=== PATIENT | male | born 1945 | race Caucasian/White ===

== ENCOUNTER 2016-11-24 06:32 | Inpatient (IN) | payer MEDICARE ==
[~2016-11-24] VITALS: Ht 170.2 cm; Wt 89.0 kg
[2016-11-24] VITALS (15 sets, daily range): BP systolic 112–170; BP diastolic 51–82
[2016-11-24] MEDS: IV NORMAL SALINE 1000ML BAG 1,000 ML IV SCH ×6 (06:50→11:39)
--- NOTE | 2016-11-24 07:09 | RAD ---
Portable chest, 11/24/2016: History: Check tubes post cardiac arrest An ET tube is in place with its tip located 4 cm above the stephanie. An NG tube extends into the proximal aspect of the stomach. The heart is mildly enlarged. The pulmonary vascularity is normal. No pulmonary infiltrates are seen. There is no evidence of pleural fluid or pneumothorax. IMPRESSION: 1. The ET tube and NG tube are in satisfactory positions. 2. Mild cardiomegaly
[2016-11-24 07:23] LABS: POTASSIUM ISTAT 4.3 mmol/L (3.5-5.0)
[2016-11-24 07:26] LABS: BASO # 0.1 x10^3/uL (0.0-0.2); BASO % 1 % (0-3); EOS % 3 % (0-3); HEMOGLOBIN 10.6 g/dL (13.0-17.5); LYMPH % 48 % (24-48); MEAN CORPUSCULAR HEMOGLOBIN 30 pg (25-35); MEAN CORPUSCULAR HGB CONC 31 g/dL (31-37); MEAN CORPUSCULAR VOLUME 96 fL (79-100); MONO % 6 % (0-9); NEUT % 43 % (31-73); PLATELET COUNT 72 x10^3/uL (140-400); RED BLOOD COUNT 3.56 x10^6/uL (4.30-5.70); WHITE BLOOD COUNT 10.5 x10^3/uL (4.0-11.0)
[2016-11-24] MEDS: EPINEPHRINE VIAL 4 MG in IV NORMAL SALINE 250ML 250 ML IV PRN (07:39)
[2016-11-24 07:40] LABS: CALCIUM 8.1 mg/dL (8.5-10.1)
[2016-11-24 07:41] LABS: CREATININE 1.6 mg/dL (0.7-1.3); GFR 42.8; POTASSIUM 3.6 mmol/L (3.5-5.1)
[2016-11-24] MEDS ORDERED: DEXTROSE 50% 25 GM / 50ML DISP.SYRIN. IV PRN (07:45)
[2016-11-24 07:47] LABS: ALBUMIN 2.4 g/dL (3.4-5.0); DIRECT BILIRUBIN 0.1 mg/dL (0.0-0.2); MAGNESIUM 2.1 mg/dL (1.8-2.4); TOTAL BILIRUBIN 0.2 mg/dL (0.2-1.0); TOTAL PROTEIN 4.9 g/dL (6.4-8.2)
[2016-11-24 07:54] LABS: BILIRUBIN,URINE NEGATIVE (NEG); GLUCOSE,URINE NEGATIVE (NEG); NITRITE,URINE NEGATIVE (NEG); PROTEIN,URINE 30 mg/dL (NEG-TRACE); UROBILINOGEN,URINE 0.2 mg/dL (0.2 mg/dL)
--- NOTE | 2016-11-24 07:54 | PHYS DOC ---
Past Medical History Past Medical History: Diabetes-Type II, High Cholesterol, Hypertension Adult General Chief Complaint Chief Complaint: CPR/FULL ARREST HPI HPI Patient is a 71 year old female who presents status post cardiac arrest. Per EMS, they got a call for shortness of breath after patient had gone for a morning run. Shortly after their arrival, patient had cardiac arrest. CPR was started. Patient has received 1 round of epi prior to arrival. Patient unresponsive and unable to contribute to history. Review of Systems Review of Systems Unable to obtain as patient is unresponsive Current Medications Current Medications Current Medications Medications (Trade) Dose Ordered Sig/Kika Start Time Stop Time Status Last Admin Dose Admin Epinephrine HCl/ Sodium Chloride (Adrenalin/Iv Sodium Chloride 0.9% 250ml) 254 ml @ 0 mls/hr CONT PRN 11/24/16 07:30 11/24/16 07:39 5 MLS/HR Sodium Chloride 1,000 ml @ 1,000 mls/hr Q1H 11/24/16 06:50 11/24/16 07:49 DC 11/24/16 06:50 1,000 MLS/HR Allergies Allergies Physical Exam Physical Exam Constitutional: Well developed, well nourished, unresponsive HENT: Normocephalic, atraumatic, bilateral external ears normal Eyes: Pupils initially 3mm ERRL; after period of time pupils became nonreactive with R pupil 3mm and L pupil 6mm Neck: Normal range of motion, no stridor Cardiovascular: CPR in progress Lungs & Thorax: No spontaneous respiration. Bilateral breath sounds clear to auscultation Abdomen: Bowel sounds normal, soft, non-distended, no TTP Skin: Warm, dry, no erythema, no rash Extremities: No obvious deformity, no edema Neurologic: GCS 3 Current Patient Data Vital Signs Vital Signs Date Time Temp Pulse Resp B/P Pulse Ox O2 Delivery O2 Flow Rate FiO2 11/24/16 07:36 104 16 119/65 100 Bag Valve Mask 15 Lab Values Laboratory Tests Test 11/24/16 06:50 11/24/16 07:15 11/24/16 07:17 O2 Saturation 98% (92-99) Arterial Blood pH 6.93 (7.35-7.45) *L Arterial Blood pCO2 at Patient Temp 57mmHg (35-46) H Arterial Blood pO2 at Patient Temp 221mmHg (65-108) H Arterial Blood HCO3 12mmol/L (21-28) L Arterial Blood Base Excess -21mmol/L (-3-3) L FiO2 100 White Blood Count 10.5x10^3/uL (4.0-11.0) Red Blood Count 3.56x10^6/uL (4.30-5.70) L Hemoglobin 10.6g/dL (13.0-17.5) L Hematocrit 34.0% (39.0-53.0) L Mean Corpuscular Volume 96fL (79-100) Mean Corpuscular Hemoglobin 30pg (25-35) Mean Corpuscular Hemoglobin Concent 31g/dL (31-37) Red Cell Distribution Width 14.0% (11.5-14.5) Platelet Count 72x10^3/uL (140-400) L Neutrophils (%) (Auto) 43% (31-73) Lymphocytes (%) (Auto) 48% (24-48) Monocytes (%) (Auto) 6% (0-9) Eosinophils (%) (Auto) 3% (0-3) Basophils (%) (Auto) 1% (0-3) Neutrophils # (Auto) 4.5x10^3uL (1.8-7.7) Lymphocytes # (Auto) 5.0x10^3/uL (1.0-4.8) H Monocytes # (Auto) 0.6x10^3/uL (0.0-1.1) Eosinophils # (Auto) 0.3x10^3/uL (0.0-0.7) Basophils # (Auto) 0.1x10^3/uL (0.0-0.2) Sodium Level 156mmol/L (136-145) H Potassium Level 3.6mmol/L (3.5-5.1) Chloride Level 113mmol/L (98-107) H Carbon Dioxide Level 21mmol/L (21-32) Anion Gap 22 (6-14) H 30mmol/L (6-14) H Blood Urea Nitrogen 22mg/dL (8-26) Creatinine 1.6mg/dL (0.7-1.3) H Estimated GFR (Cockcroft-Gault) 42.8 Glucose Level 364mg/dL (70-99) H 400mg/dL (70-99) H Lactic Acid Level 20.3mmol/L (0.4-2.0) *H Calcium Level 8.1mg/dL (8.5-10.1) L Magnesium Level 2.1mg/dL (1.8-2.4) Total Bilirubin 0.2mg/dL (0.2-1.0) Direct Bilirubin 0.1mg/dL (0.0-0.2) Aspartate Amino Transferase (AST) 261U/L (15-37) H Alanine Aminotransferase (ALT) 378U/L (16-63) H Alkaline Phosphatase 61U/L (46-116) POC Troponin I 0.12ng/ml (<0.08) Troponin I Quantitative 0.132ng/mL (0.000-0.055) MD-Asn-U-Type Natriuretic Peptide 79pg/mL (0-124) Total Protein 4.9g/dL (6.4-8.2) L Albumin 2.4g/dL (3.4-5.0) L Lipase 158U/L (73-393) POC Hemoglobin 10.2g/dL (14-18) L POC Hematocrit 30% (37-52) L POC Sodium 147mmol/L (135-145) H POC Potassium 4.3mmol/L (3.5-5.0) POC Chloride 110mmol/L (98-110) POC Total CO2 12mmol/L (23-32) L POC Blood Urea Nitrogen 22mg/dL (8-26) POC Creatinine 1.4mg/dL (0.5-1.4) POC Ionized Calcium ([place]) 1.02mmol/L (1.13-1.32) L Laboratory Tests 11/24/16 07:15 Laboratory Tests 11/24/16 07:15 11/24/16 07:17 EKG EKG EKG (my read): Tachycardic, rate 146, partial RBBB, few PVCs noted, nonspecific ST changes throughout Radiology/Procedures Radiology/Procedures CXR: IMPRESSION: 1. The ET tube and NG tube are in satisfactory positions. 2. Mild cardiomegaly CT head: IMPRESSION: Suboptimal exam demonstrating no acute intracranial abnormality. Course & Med Decision Making Course & Med Decision Making Pertinent Labs and Imaging studies reviewed. (See chart for details) Patient is critically ill 71-year-old male who presents in cardiac arrest. Suspect cardiac etiology given circumstances. CPR continued on arrival to ED. ACLS algorithm followed, see code sheet for further details about meds given. Patient intubated emergently without difficulty. During time in emergency department, patient coded a couple more times, but we were able to achieve ROSC each time. At one point he had run of V. tach, for which he was defibrillated and given 300 mg amiodarone. I placed a femoral central line and started epinephrine drip. I discussed patient's grave condition with family. Broad spectrum antibiotics ordered, in part due to the nonsterile line that was placed emergently. Shortly after patient's arrival to ED, I discussed case with Dr. Lu; we initially decided to hold off on hypothermic protocol, but then as he became more stable (cardiovascularly) but developed unilateral dilated pupil and remained GCS 3 decision was made to proceed with cooling. Order entered for hypothermic protocol. CT head obtained en route to ICU. Discussed with Dr. Salcedo, will admit under his care to the ICU. Patient remains in critical condition. Critical care time: I spent 60 minutes critical care time with this patient. This does not include any time spent on procedures. Dragon Disclaimer Dragon Disclaimer This electronic medical record was generated, in whole or in part, using a voice recognition dictation system. PROCEDURE Procedure Orotracheal Intubation: Indication: Respiratory failure Consent: Unable to give consent due to emergent nature. Medications Used: see nursing note Procedure: The patient was placed in the appropriate position. Intubation was performed using kaleidoscope. 7.5 cuffed Endotracheal tube placed without difficulty. Secured at 25 at the lips. Initial confirmation of placement included bilateral breath sounds, tube fogging, adequate chest rise, adequate pulse oximetry reading. A chest x-ray to verify correct placement of the tube showed appropriate tube position. The patient tolerated the procedure well. Complications: none. Central Line Placement: Indication: Vascular access Consent: Unable to give consent due to emergent nature Procedure: The patient was positioned appropriately and the skin over the right femoral vein was prepped. Local anesthesia was not used. Ultrasound guidance utilized. A large bore needle was used to identify the vein. A guide wire was then inserted into the vein through the needle. I was unable to thread the catheter as the guide wire became kinked. This technique was repeated for the left femoral vein. A triple lumen catheter was then inserted into the vessel over the guide wire using the Seldinger technique. All ports showed good, free flowing blood return and were flushed with saline solution. The catheter was then securely fastened to the skin with sutures and covered with a sterile dressing. Strict sterile procedure was not followed due to the emergent nature of the case. Complications: Unable to place catheter in right femoral vein; central venous catheter placed in left femoral vein without complication Departure Departure Impression: Primary Impression: Cardiac arrest Disposition: ADMITTED INPATIENT Admitting Physician: Shameka Salcedo Condition: CRITICAL Referrals: BRIGHT HANCOCK (PCP) MAGGIE JORGENSEN MD Nov 24, 2016 07:54
--- NOTE | 2016-11-24 07:54 | EKG ---
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
[2016-11-24] MEDS ORDERED: IV NORMAL SALINE 1000ML BAG 1,000 ML IV ONE ×2 (08:00→11:00)
[2016-11-24] MEDS: INSULIN ASPART 300 UNITS/3 ML INSULN.PEN SQ SCH ×2 (08:00→12:00)
[2016-11-24 08:02] LABS: BACTERIA,URINE FEW /HPF (0-FEW); SQUAMOUS EPITHELIAL CELL,UR OCC /LPF; WBC,URINE OCC /HPF (0-4)
[2016-11-24 08:12] LABS: HCO3 ABG 12 mmol/L (21-28); PCO2 ABG 57 mmHg (35-46); PO2 ABG 221 mmHg (65-108); SAT O2 ABG 98 % (92-99)
[2016-11-24] MEDS ORDERED: PIP/TAZO PER PHARMACY MC PRN (08:15)
[2016-11-24] MEDS ORDERED: VANCOMYCIN PER PHARMACY MC PRN (08:15)
[2016-11-24] MEDS ORDERED: PIPERACILLIN/TAZOBACTAM 4.5 GM in IV NORMAL SALINE 100ML 100 ML IV SCH (08:30)
[2016-11-24] MEDS ORDERED: VANCOMYCIN 2 GM in IV NORMAL SALINE 500ML BAG 500 ML IV ONE (08:30)
[2016-11-24] MEDS: SODIUM BICARBONATE VIAL 50 MEQ in IV 1/2 NORMAL SALINE 1,000 ML IV SCH ×2 (08:32→16:40)
[2016-11-24] MEDS ORDERED: FENTANYL PF 100 MCG/2 ML VIAL. IV PRN (08:45)
[2016-11-24] MEDS ORDERED: MINERAL OIL/PETROLATUM,WHITE OPHTH OINT 3.5GM TUBE. OU PRN (08:45)
[2016-11-24] MEDS ORDERED: 0.9 % SODIUM CHLORIDE 10 ML DISP.SYRIN. IV PRN (08:45)
[2016-11-24] MEDS ORDERED: LORAZEPAM 2 MG/ML VIAL IV PRN (08:45)
--- NOTE | 2016-11-24 08:55 | ACF ---
Admit Criteria Forms Admit Criteria Forms Admit Criteria Forms INTENSIVE CARE UNIT ADMISSION Intensive Care Admission Guidelines ( Place 'X' for any and all applicable criteria): Admission to ICU may be indicated when need is demonstrated by ANY ONE of the following (1)(2)(3)(4)(5)(6)(7)(8)(9) : [ ]I. Vital sign abnormalities, including ANY ONE of the following: [ ]a) Systolic arterial pressure less than 90 mm Hg, or 20 mm Hg below the patient's usual pressure [ ]b) Diastolic arterial pressure greater than 120 mm Hg [ ]c) Mean arterial pressure less than 70 mm Hg [A] [ ]d) Pulse less than 40 or greater than 140 beats per minute (in adult) [ ]e) Respiratory rate greater than 35 or less than 8 breaths per minute [ ]II. Laboratory findings (new), including ANY ONE of the following (10): [ ]a) Saturation of arterial oxygen less than 88% or partial pressure of oxygen less than 60 mm Hg (8.0 kPa) despite oxygen supplementation [ ]b) Rising partial pressure of carbon dioxide with respiratory acidosis [ ]c) pH less than 7.2 or greater than 7.65 [ ]d) Serum glucose greater than 800 mg/dL (44.4 mmol/L) [ ]e) Serum sodium less than 110 mEq/L (mmol/L) or greater than 160 mEq/L (mmol/L) [ ]f) Serum potassium less than 2 mEq/L (mmol/L) or greater than 7 mEq /L (mmol/L) [ ]g) Serum calcium greater than 15 mg/dL (3.75 mmol/L) [ ]h) Serum phosphorus less than 1 mg/dL (0.32 mmol/L) [ ]i) Toxic drug level or poisoning causing or likely to cause neurologic or Hemodynamic instability [ ]j) Less severe laboratory abnormalities contributing to ANY ONE of the following: [ ]i) Seizure [ ]ii) Altered mental status [ ]iii) Muscle weakness [ ]iv) Arrhythmias [ ]v) Hemodynamic instability [ ]vi) Other significant clinical manifestations [ ]III. Electrocardiogram (or cardiac monitoring) findings, including ANY ONE of the following: [ ]a) Inherently unstable or life-threatening arrhythmia (eg, sustained ventricular tachycardia, ventricular fibrillation, asystole) [ ]b) Arrhythmia causing severe hypotension (eg, bradycardia, tachycardia) [ ]c) Complete heart block causing severe hypotension [ ]d) Other findings indicative of a need for intensive care (eg , [place]) [ ]IV.Physical findings, including ANY ONE of the following: [ ]a) Threatened airway [ ]b) Sudden altered mental status [ ]c) Repeated or prolonged seizures [ ]d) Coma [ ]e) New-onset anuria (urine output <0.1 mL/kg/hr over 4 h) [ ]f) Cyanosis (new) [ ]g) Cardiac tamponade [ ]h) Status post respiratory or cardiac arrest [ ]i) Severe carmona (eg, partial thickness carmona over more than 10% of body surface, third-degree carmona) [ ]j) Findings consistent with abdominal emergency (eg, peritoneal signs) [ ]V.Imaging findings, such as dissecting aneurysm or ruptured viscus [ ].Specific intervention or monitoring needed, as indicated by ANY ONE of the following: [ ]a) New need for assisted ventilation, invasive or noninvasive(11) [ ]b) New need for intubation (eg, to protect airway) [ ]c) New tracheostomy (less than 48 hours old) [ ]d) Hourly vital signs or neurologic checks [ ]e) Pulmonary artery line monitoring needed [ ]f) Continuous arterial line monitoring needed [ ]g) Continuous IV vasoactive drugs [ ]h) Continuous IV antiarrhythmics [ ]i) Large volume IV fluid resuscitation (eg, greater than 6 L per day ) [ ]j) Large or rapid transfusion needs (eg, more than 6 units within 24 hours) [ ]k) High-risk IV treatment, such as bolus IV medicatns or mannitol infusion [ ]l) Acute cardiac pacing [ ]m) Intra-aortic balloon pump [ ]n) Ventricular assist device [ ]o) Cardioversion [ ]p) Pericardiocentesis [ ]q) Hemodialysis in unstable patient [ ]r) Continuous renal replacement therapy (eg, continuous veno-venous hemofiltration) [ ]s) Peritoneal dialysis initiation [ ]t) Emergency bronchoscopic therapy (eg, for hemoptysis) [ ]u) Emergency endoscopic therapy for bleeding [ ]v) Balloon tamponade for variceal bleeding [ ]w) Intracranial pressure monitoring or tissue oxygen monitoring [ ]x) Ventriculostomy monitoring [ ]y) Treatment of ongoing seizures [ ]z) Induced hypothermia or coma [ ]aa) Ongoing frequent testing and treatment for acute conditions, including ANY ONE of the following: [ ]i) Correction of severe metabolic acidosis/ alkalosis [ ]ii). Severe fluid overload [ ]iii) Cerebral edema [ ]iv) Monitoring or suctioning for respiratory insufficiency or acidosis [ ]v) Monitoring for active bleeding [ ]bb) Rapid desensitization for high-risk hypersensitivity reaction to required medication (eg, penicillin)(12) [ ]cc) Other need for treatment or monitoring not available outside the ICU [X]VII.Cardiology diagnoses or procedures, including ANY ONE of the following (13)(14)(15)(16)(17): [ ]a) Chest pain with ANY ONE of the following: [ ]i) Hemodynamic instability [ ]ii) Suspicion of diagnoses needing ICU care (eg, aortic dissection) [ ]iii) New unstable or symptomatic arrhythmia or ECG finding (eg, ventricular tachycardia, ventricular fibrillation, advanced heart block) [ ]iv) Syncope or near-syncope [ ]v) SBP less than 100 mm Hg [ ]vi) Pulmonary edema thought to be due to ischemia [ ]vii) New or worsening mitral regurgitation murmur, S3 , or rales [ ]b) Acute [place] with complications as indicated by ANY ONE of the following: [ ]i) Persistent chest pain [ ]ii) Hemodynamic instability [ ]iii) New unstable or symptomatic arrhythmia or ECG finding (eg, ventricular tachycardia, ventricular fibrillation, advanced heart block) [ ]iv) Syncope or near-syncope [ ]v) Pulmonary edema thought to be due to ischemia [ ]vi) New or worsening mitral regurgitation murmur, S3 , or rales [ ]vii) New-onset bundle branch block [ ]viii) Hemorrhagic complication (eg, intracranial or access site bleed following thrombolysis) [ ]c) Cardiac arrhythmia or conduction defect with Hemodynamic instability [ ]d) Complication of cardiac ablation, including ANY ONE of the following(18): [ ]i) Pericardial tamponade [ ]ii) Hemodynamic instability [ ]iii) Thromboembolic stroke [ ]iv) Aortic valve injury [ ]v) Vascular injuries [ ]vi) Esophageal perforation [ ]vii) Severe arrhythmia [ ]viii) Air embolism [ ]ix) Other severe complication [ ]e) Cardiogenic shock [ ]f) Hypertensive emergency, with need for ANY ONE of the following(19): [ ]i) IV antihypertensive therapy [ ]ii) Invasive hemodynamic monitoring (eg, arterial line) [ ]g) Pericardial tamponade [ ]h) Severe heart failure, with ANY ONE of the following(15): [ ]i) Respiratory failure [ ]ii) Cardiogenic shock [ ]iii) Severe arrhythmias [ ]iv) Evidence of cardiac ischemia [ ]i Myocarditis, with ANY ONE of the following [ ]i) Hemodynamic instability [ ]ii) Respiratory failure [ ]iii) Severe arrhythmias [ ]iv) Need for cardiac assist device (eg, left ventricular assist device or extracorporeal membrane oxygenator) [X]j) Status post cardiac arrest(20) [ ]VIII. Cardiovascular Surgery diagnoses or procedures, including ANY ONE of the following.(21)(22): [ ]a) Acute aortic dissection [ ]b) Aortic surgery for ANY ONE of the following: [ ]i) Thoracic aneurysm [ ]ii) Abdominal aneurysm with ANY ONE of the following(23): [ ]1) Emergency repair [ ]2) Severe cardiopulmonary disease [ ]3) Dialysis-dependent renal failure [ ]4) Need for IV blood pressure control [ ]5) Need for ongoing ventilatory support [ ]6) Perioperative complications, including ANY ONE of the following: [ ]A. Sustained Hemodynamic instability [ ]B. Cardiac ischemia or arrhythmia [ ]C. Hypothermia (less than 35 degrees C (95 degrees F)) [ ]D. Blood transfusion greater than 3 L [ ]iii) Aortic coarctation operative excision or repair [ ]iv) Aortofemoral or aortoiliac bypass with ANY ONE of the following: [ ]1) Continued intubation [ ]2) Hemodynamic instability [ ]3) Need for IV blood pressure control [ ]4) Severe cardiopulmonary disease [ ]c) Cardiac surgery [ ]d) Carotid endarterectomy or stent placement with ANY ONE of the following: [ ]i) Blood pressure <100/60 mm Hg or >160/90 mm Hg despite 4 h of postanesthetic management [ ]ii) New or progressive neurologic defect [ ]iii) Chest pain [ ]iv) Continued intubation [ ]v) Heart failure [ ]vi) Airway compromise by hematoma or vocal cord paralysis [ ]vi) Need for IV blood pressure control [ ]e) Heart transplant [ ]f) Infrainguinal peripheral vascular surgery with ANY ONE of the following: [ ]i) Hemodynamic instability [ ]ii) Acute complications such as persistent chest pain or respiratory distress [ ]iii) Requirement for IV antiarrhythmic or vasoactive agent [ ]iv) Requirement for pulmonary artery catheter [ ]v) Severe hypertension despite 6 hours of recovery room management [ ]g) Complications of any surgery requiring ICU intervention as indicated by ANY ONE of the following(24): [ ]i) Hemodynamic instability [ ]ii) Myocardial infarction with complications (eg, severe arrhythmia, hypotension) [ ]iii) Excessive bleeding or severe coagulopathy [ ]iv) Respiratory failure [ ]v) Renal failure [ ]vi) Airway instability or obstruction [ ]vii) Neurologic deterioration [ ]viii) Infection with likelihood of sepsis syndrome or significant fluid shifts [ ]IX.Endocrinology diagnoses or procedures, including ANY ONE of the following(25)(26): [ ]a) Adrenal crisis with Hemodynamic instability(27) [ ]b) Pheochromocytoma with ANY ONE of the following(28): [ ]i) Hypertensive crisis [ ]ii) Postoperative Hemodynamic instability [ ]iii) Need for IV vasoactive therapy [ ]iv) Need for invasive arterial or central venous pressure monitoring [ ]v) Organ ischemia [ ]c) Diabetic hyperosmolar state with obtundation or coma [ ]d) Diabetic ketoacidosis with ANY ONE of the following: [ ]i) Serum pH less than 7.10 or bicarbonate level less than 10 mEq/L (mmol/L) [ ]ii) Rapidly changing electrolytes [ ]iii) Hypotension [ ]iv) Requirement for large-volume fluid resuscitation [ ]v) Respiratory insufficiency [ ]vi) Life-threatening cardiac dysrhythmias [ ]vii) Obtundation [ ]viii) Severe precipitating condition such as sepsis, stroke, or acute [place] [ ]e) Severe hypoglycemia requiring continuous glucose infusion with frequent adjustment or glucagon infusion [ ]f) Hyperthyroidism associated with thyroid storm (also known as thyrotoxic crisis)(29) [ ]g) Myxedema with life-threatening neurologic, cardiovascular, electrolyte, or renal dysfunction(29) [ ]h) Diabetes insipidus that cannot be controlled with routine medication (30) [ ]X. Gastroenterology diagnoses or procedures, including ANY ONE of the following: [ ]a) Esophageal perforation(31) [ ]b) Severe caustic esophageal injury(31) [ ]c) Liver disease complications with ANY ONE of the following(32): [ ]i) Severe hepatic encephalopathy (eg, stage 3 (somnolent) or higher) [ ]ii) Type 1 hepatorenal syndrome [ ]iii) Other cirrhosis-associated causes of acute renal failure ( eg, severe hypovolemia, acute tubular necrosis, abdominal compartment syndrome) [ ]iv) Hemodynamic instability [ ]v) Respiratory insufficiency due to severe ascites [ ]vi) Sepsis due to spontaneous bacterial peritonitis [ ]d) Fulminant hepatic failure when aggressive intervention or transplant is anticipated (32) [ ]e) Gastrointestinal hemorrhage (upper or lower) with ANY ONE of the following(33)(34): [ ]i) Active ongoing bleeding [ ]ii) Transfusion requirement greater than 2 units of packed red cells [ ]iii) Bleeding ulcer or nonbleeding visible vessel seen on endoscopy [ ]iv) Bleeding ulcer, visible blood vessel, bleeding (or recently bleeding) esophageal varices seen on endoscopy [ ]v) Hypotension [ ]vi) Syncope [ ]vii) Coagulopathy [ ]viii) Hepatic cirrhosis [ ]ix) Abnormal mental status [ ]x) Unstable comorbid condition or end organ dysfunction [ ]xi) Ischemia due to poor perfusion [ ]xii) Need for hemodynamic monitoring (eg, for patients with heart failure or valvular disease) [ ]f) Severe pancreatitis indicated by ANY ONE of the following (35)(36): [ ]i) Requirement for aggressive fluid resuscitation [ ]ii) Life-threatening electrolyte abnormality [ ]iii) SBP less than 90 mm Hg [ ]iv) Persistent tachycardia greater than 120 beats per minute [ ]v) Patients at high risk of rapid deterioration, including ANY ONE of the following: [ ]1) Calculated Deal II score greater than 8 [ ]2) Age older than 55 years [ ]3) BMI greater than 30 [ ]4) Greater than 30% pancreatic necrosis on CT scan [ ]5) Admission hematocrit greater than 47% (0.47) [ ]vi) Organ failure as indicated by ANY ONE of the following: [ ]1) Serum creatinine greater than 1.9 mg/dL (168 micromoles/L) [ ]2) Requirement for mechanical ventilation [ ]3) Urine output less than 50 mL/hour [ ]4) Arterial partial pressure of oxygen less than 60 mm Hg (8.0 kPa) despite supplemental oxygen [ ]5) PiO2/FiO2 ratio less than 300 [ ]vii) Expanding pseudocyst [ ]viii) Infected pancreas [ ]ix) Pleural effusion [ ]x) Encephalopathy [ ]xi) Severe comorbidities [ ]XI. General Surgery diagnoses or procedures, including ANY ONE of the following (9)(24)(37): [ ]a) Acute abdominal catastrophe (eg, ischemic bowel, perforated viscus, abdominal compartment syndrome) [ ]b) Complications of any surgery requiring ICU intervention as indicated by ANY ONE of the following: [ ]i) Hemodynamic instability [ ]ii) [place] with complications (eg, severe arrhythmia, hypotension) [ ]iii) Excessive bleeding or severe coagulopathy [ ]iv) Respiratory failure [ ]v) Renal failure [ ]vi) Airway instability or obstruction [ ]vii) Neurologic deterioration [ ]viii) Infection with likelihood of sepsis syndrome or significant fluid shifts [ ]c) Multiple trauma with complicating features as indicated by ANY ONE of the following(38): [ ]i) Impending acute respiratory failure due to lung contusion, unstable chest wall, aspiration, or hemorrhage [ ]ii) Facial or neck injury threatening airway patency [ ]iii) Cardiac contusion [ ]iv) Pericardial effusion [ ]v) Bronchial tear [ ]vi) Hemodynamic instability [ ]vii) Rhabdomyolisis requiring large volume IV fluid resuscitation [ ]viii)Other significant complicating feature [ ]d) Organ transplant(39)(40) [ ]e) Esophagectomy(31) [ ]f) Whipple procedure [ ]g) Preoperative or postoperative patients requiring ICU intervention, such as hemodynamic optimization, pulmonary artery monitoring, mechanical ventilation, or extensive nursing care [ ]h) Obesity surgery patients with ANY ONE of the following(41): [ ]i) ICU management needs for comorbid conditions, such as sleep apnea or airway management needs [ ]ii) Failed postoperative extubation [ ]iii) Intraoperative complications [ ]XII. Nephrology diagnoses or procedures, including acute, or acute on chronic renal insufficiency with ANY ONE of the following(44)(45): [ ]a) Life-threatening electrolyte or acid-base disorder [ ]b) Acute pulmonary edema [ ]c) Hypotension or significant volume depletion [ ]d) Hypertensive emergency [ ]e) Underlying critical illness contributing to renal failure (eg, septic shock, hepatorenal syndrome) [ ]f) Need for continuous renal replacement therapy [ ]XIII. Neurology diagnoses or procedures, including ANY ONE of the following (46)(47) [B] : [ ]a) Intracranial hypertension requiring ANY ONE of the following(49 ): [ ]i) Induced barbiturate coma [ ]ii) Pharmacologic paralysis or deep sedation and mechanical ventilation [ ]iii) Intracranial pressure or cerebral perfusion pressure monitoring [ ]iv) IV mannitol or hypertonic saline [ ]v) Frequent serum osmolality measurements [ ]b) Seizures with ANY ONE of the following(50): [ ]i) Status epilepticus [ ]ii) Airway compromise requiring or likely to require mechanical ventilation [ ]iii) Severe electrolyte abnormalities causing seizures [ ]c) Progressive acute neurologic dysfunction requiring or likely to require ANY ONE of the following: [ ]i) Mechanical ventilation [ ]ii) Intracranial pressure or cerebral perfusion pressure monitoring [ ]d) Meningitis with obtundation or respiratory insufficiency [C])(51 ) [ ]e) Stroke with ANY ONE of the following(52)(53): [ ]i) Need for observation after thrombolysis [ ]ii) Altered mental status [ ]iii) Need for mechanical ventilation [ ]iv) Elevated intracranial pressure [ ]v) Hypertensive emergency [ ]vi) High risk of progressive infarction or deterioration based on CT scan or MRI [ ]vii) Hemorrhage [ ]f) Acute coma [ ]g) Acute spontaneous intracranial hemorrhage(53)(54) [ ]h) Drug ingestion with ANY ONE of the following(56)(57): [ ]i) Hemodynamic instability [ ]ii) Respiratory depression (partial pressure of carbon dioxide >45 mm Hg (6.0 kPa), new) [ ]iii) Patient requires or is likely to require mechanical ventilation. [ ]iv) Arrhythmias [ ]v) Seizures [ ]vi) Altered mental status ([place] coma scale score less than 12, new) [ ]vii) Significant risk for acute deterioration (eg, toxic level of hypotension or arrhythmia-producing drug) [ ]viii) Drug-induced hypothermia or hyperthermia [ ]ix) Increasing metabolic acidosis [ ]x) Severe hypoglycemia requiring glucose infusion with frequent adjustment or glucagon administration [ ]xi) Ongoing antidote administration (eg, continuous naloxone infusion, organophosphate toxicity treatment) [ ]xii) Emergency intervention need (eg, dialysis, hemoperfusion, restraints) [ ]i) Brain with preparation for organ donation [ ]j) Traumatic brain injury with ANY ONE of the following(55): [ ]i) Altered mental status (eg, new onset [place] coma scale score less than 10) [ ]ii) Cerebral edema [ ]iii) Cerebral hemorrhage [ ]iv) Increased intracranial pressure [ ]XIV. Neurosurgery diagnoses or procedures, including ANY ONE of the following(49)(58)(59): [ ]a) Emergency craniotomy for tumor, hematoma, or trauma [ ]b) Elective craniotomy for posterior fossa tumor [ ]c) Elective craniotomy (supratentorial) for tumor with ANY ONE of the following: [ ]i) Postoperative neurologic deficit or impaired consciousness 6 hours after completion of procedure [ ]ii) SBP less than 110 mm Hg or greater than 180 mm Hg despite therapy [ ]iii) Extensive operative blood loss [ ]iv) High anesthesia risk (eg, [place] [employer] anesthesiologists score greater than 3 [ ]d) Craniotomy for aneurysm with ANY ONE of the following: [ ]i) Postoperative neurologic deficit or impaired consciousness 6 hours after completion of procedure [ ]ii) Preoperative Neal-Dean grade 3 or higher [ ]iii) SBP less than 110 mm Hg or greater than 180 mm Hg despite therapy [ ]iv) Intracranial pressure monitoring [ ]e) Acute spinal cord injury [ ]f) Subarachnoid hemorrhage [ ]g) Traumatic brain injury with ANY ONE of the following: [ ]i) Acute mental status change ([place] coma scale score less than 10) [ ]ii) CT scan showing cerebral edema or hemorrhage [ ]iii) Intracranial pressure monitoring [ ]h) Complications of any surgery requiring ICU intervention as indicated by ANY ONE of the following(60): [ ]i) Hemodynamic instability [ ]ii) [place] with complications (eg, severe arrhythmia, hypotension) [ ]iii) Excessive bleeding or severe coagulopathy [ ]iv) Respiratory failure [ ] v) Renal failure [ ]vi) Airway instability or obstruction [ ]vii) Neurologic deterioration [ ]viii) Infection with likelihood of sepsis syndrome or significant fluid shifts [ ]i) Preoperative or postoperative patients requiring ICU intervention, such as hemodynamic optimization, pulmonary artery monitoring, mechanical ventilation, or extensive nursing care [ ]XV.Obstetrics and Gynecology diagnoses or procedures, including ANY ONE of the ffg. (61)(62)(63): [ ]a) Severe peripartum condition as indicated by ANY ONE of the following: [ ]i) Eclampsia [ ]ii) Hypertensive emergency [ ]iii) HELLP syndrome (hemolysis, elevated liver enzymes, and low platelet count) [ ]iv) Pulmonary edema [ ]v) Respiratory failure [ ]vi) Pulmonary embolism [ ]vii) Anaphylactoid syndrome of (amniotic fluid embolus) [ ]viii) Ovarian hyperstimulation syndrome [D] [ ]ix) Acute fatty liver of (hepatic failure) [ ]x) Complications such as placental abruption or severe hemorrhage [ ]xi) Sepsis (eg, puerperal sepsis, chorioamnionitis, septic ) [ ]xii) cardiomyopathy with severe congestive heart failure (eg, respiratory failure, cardiogenic shock) [ ]b) Ruptured ectopic [ ]c) Complications of any surgery requiring ICU intervention as indicated by ANY ONE of the following: [ ]i) Hemodynamic instability [ ]ii) [place] with complications (eg, severe arrhythmia, hypotension) [ ]iii) Excessive bleeding or severe coagulopathy [ ]iv) Respiratory failure [ ]v) Renal failure [ ]vi) Airway instability or obstruction [ ]vii) Neurologic deterioration [ ]viii) Infection with likelihood of sepsis syndrome or significant fluid shifts [ ]d) Preoperative or postoperative patients requiring ICU intervention , such as hemodynamic optimization, pulmonary artery monitoring, mechanical ventilation, or extensive nursing care [ ]XVI.Ophthalmology diagnoses or procedures, including ANY ONE of the following (64): [ ]a) Complications of any surgery requiring ICU intervention, such as ANY ONE of the following: [ ]i) Hemodynamic instability [ ]ii) [place] with complications (eg, severe arrhythmia, hypotension) [ ]iii) Excessive bleeding or severe coagulopathy [ ]iv) Respiratory failure [ ]v) Renal failure [ ]vi) Airway instability or obstruction [ ]vii) Neurologic deterioration [ ]viii) Infection with likelihood of sepsis syndrome or significant fluid shifts [ ]b) Preoperative or postoperative patients requiring ICU intervention , such as hemodynamic optimization, pulmonary artery monitoring, mechanical ventilation, or extensive nursing care [ ]XVII.Orthopedics diagnoses or procedures, including ANY ONE of the following [phone]): [ ]a) Complications of any surgery requiring ICU intervention as indicated by ANY ONE of the following: [ ]i) Hemodynamic instability [ ]ii) [place] with complications (eg, severe arrhythmia, hypotension) [ ]iii) Excessive bleeding or severe coagulopathy [ ]iv) Respiratory failure [ ]v) Renal failure [ ]vi) Airway instability or obstruction [ ] vii) Neurologic deterioration [ ]viii) Infection with likelihood of sepsis syndrome or significant fluid shifts [ ]b) Multiple trauma with complicating features as indicated by ANY ONE of the following(38): [ ]i) Impending acute respiratory failure due to lung contusion, unstable chest wall, pneumothorax, aspiration, or hemorrhage [ ]ii) Facial or neck injury threatening airway patency [ ]iii) Cardiac contusion [ ]iv) Rhabdomyolysis requiring large volume IV fluid resuscitation [ ]v) Pericardial effusion [ ]vi) Bronchial tear [ ]vii) Hemodynamic instability [ ]viii) Other significant complicating feature [ ]c) Threatened compartment syndrome [ ]d) Severe carmona with ANY ONE of the following(68)(69)(70): [ ]i) Hypotension or requirement for aggressive fluid resuscitation [ ]ii) Respiratory insufficiency with requirement for high- flow oxygen or mechanical ventilation [ ]iii) Carbon monoxide poisoning [ ]iv) Life-threatening cardiac, renal, pulmonary, or neurologic dysfunction [ ]v) High-voltage (eg, 1000 volts or more) electrical burn [ ]vi) Requirement for frequent or intensive debridement and dressing changes; examples include: [ ]1) Partial thickness carmona greater than 10% of body surface [ ]2) Carmona on face, hands, feet, genitalia, perineum , or major joints [ ]3) Third-degree carmona [ ]4) Any burn greater than 15% of body surface area [ ]vii) Inhalation lung injury [ ]viii) Concomitant trauma or other medical condition requiring ICU care [ ]e) Preoperative or postoperative patients requiring ICU intervention , such as hemodynamic optimization, pulmonary artery monitoring, mechanical ventilation, or extensive nursing care [ ]XVIII.Otolaryngology diagnoses or procedures, including ANY ONE of the following (71)(72): [ ]a) Complications of any surgery requiring ICU intervention as indicated by ANY ONE of the following: [ ]i) Hemodynamic instability [ ]ii) [place] with complications (eg, severe arrhythmia, hypotension) [ ]iii) Excessive bleeding or severe coagulopathy [ ]iv) Respiratory failure [ ]v) Renal failure [ ]vi) Airway instability or obstruction [ ]vii) Neurologic deterioration [ ]viii) Infection with likelihood of sepsis syndrome or significant fluid shifts [ ]b) Airway or hemodynamic compromise that persists after 3 hours of observation in postanesthesia care unit following nasal, palate (eg, uvulopalatopharyngoplasty or palatoplasty), or tongue surgery for sleep apnea [ ]c) Preoperative or postoperative patient requiring ICU intervention, such as hemodynamic optimization, pulmonary artery monitoring, mechanical ventilation, or extensive nursing care [ ]d) Symptomatic upper airway compromise (eg, laryngeal edema, mass) [ ]e) Other airway-compromising procedure (eg, posterior nasal packing) [ ]XIX.Thoracic Surgery and Pulmonary Disease Diagnosis or procedures, including ANY ONE of the following(6): [ ]a) Asthma with ANY ONE of the following(73)(74): [ ]i) Impending or actual respiratory arrest [ ]ii) Need for mechanical ventilation [ ]iii) Peak expiratory flow rate less than 30% of predicted or personal best [ ]iv) Peak expiratory flow rate or FEV1 less than 40% predicted after 1 hour of initial treatment [ ]v) Acidosis [ ]vi) Persistent or worsening hypoxia after initial treatment [ ]vii) Hypercapnia (eg, partial pressure of carbon dioxide greater than 43 mm Hg (5.7 kPa)) [ ]viii) Severe drowsiness, confusion, or coma [ ]ix) Requiring continuous inhaled bronchodilator [ ]b) COPD with ANY ONE of the following(75): [ ]i) Need for assisted ventilation [ ]ii) Hemodynamic instability [ ]iii) Severe dyspnea unresponsive to initial treatment [ ]iv) Change in level of consciousness [ ]v) Persistent findings despite oxygen and outpatient management, including ANY ONE of the following: [ ]1) Partial pressure of oxygen less than 40 mm Hg ( 5.3 kPa) [ ]2) Partial pressure of carbon dioxide greater than 60 mm Hg (8.0 kPa) [ ]3) pH less than 7.25 [ ]4) Worsening hypoxemia or acidosis [ ]c) Cor pulmonale with ANY ONE of the following(75)(76)(77): [ ]i) Hemodynamic instability [ ]ii) Need for IV inotropic or vasoactive agent [ ]iii) Need for invasive hemodynamic monitoring (eg, central venous, pulmonary artery, or arterial catheter) [ ]iv) Hypoxemia with partial pressure of oxygen less than 40 mm Hg (5.3 kPa) [ ]v) Worsening hypoxemia or acidosis despite oxygen therapy [ ]vi) Need for assisted ventilation [ ]vii) Need for right ventricular assist device [ ]viii) Unstable atrial tachyarrhythmia [ ]ix) Need for inhaled nitric oxide [ ]d) Aspiration pneumonia with ANY ONE of the following(78): [ ]i) Acute respiratory distress syndrome (PaO2/FiO2 ratio of 300 or less) [ ]ii) Impending or actual respiratory arrest [ ]iii) Need for invasive or noninvasive mechanical ventilation [ ]e) Pneumocystis jiroveci pneumonia with ANY ONE of the following(79): [ ]i) Impending or actual respiratory arrest [ ]ii) Hypoxia (eg, PO260 mmGh (8.0 kPa) or less despite oxygen therapy) [ ]iii) Need for invasive or noninvasive mechanical ventilation [ ]f) Pneumonia with ANY ONE of the following(80)(81)(82): [ ]i) Need for invasive or noninvasive assisted ventilation [ ]ii) Hemodynamic instability [ ]iii) Severity factors as indicated by 3 or MORE of the following: [ ]1) Respiratory rate 30 breaths per minute or greater [ ]2) PaO2/FiO2 ratio of 250 or less [ ]3) Multilobed infiltrates [ ]4) Altered mental status [ ]5) BUN 20 mg/dL (7.1 mmol/L) or greater [ ]6) WBC count less than 4000/mm3 (4 x109/L) [ ]7) Platelet count <100,000/mm3 (100 x109/L) [ ]8) Temperature less than 36 degrees C (96.8 degrees F ) [ ]9) Hypotension requiring aggressive fluid resuscitation [ ]g) Pulmonary hypertension requiring initiation of parenteral pulmonary vasodilator or trial of inhaled nitric oxide (eg, need for right heart catheterization)(76) [ ]h) Impending respiratory failure as indicated by ANY ONE of the following: [ ]i) Respiratory rate greater than 30 or partial pressure of oxygen less than 60 mm Hg (8.0 kPa) on 50% oxygen or more [ ]ii) Partial pressure of carbon dioxide greater than 45 mm Hg (6.0 kPa) with pH less than 7.35 [ ]i) Respiratory failure with ANY ONE of the following (47): [ ]i) Need for invasive or noninvasive mechanical ventilation [ ]ii) High likelihood of requiring mechanical ventilation within 24 hours [ ]iii) Observation in the first several hours immediately after extubation from mechanical ventilation [ ]iv) Need for close observation and aggressive therapy, such as suctioning, chest physiotherapy, or inhalation treatments at intervals less than 1 hour [ ]v) Pharmacologic ventilatory paralysis [ ]j) Venous thromboembolism with need for systemic or catheter- directed thrombolysis (eg, for limb-threatening thrombosis, phlegmasia cerulea dolens) (83) [ ]k) Pulmonary embolus with ANY ONE of the following(83): [ ]i) Hypotension [ ]ii) Severe hypoxia [ ]iii) Dangerous arrhythmia [ ]iv) Bleeding [ ]v) Need for systemic or catheter-directed thrombolysis [ ]l) Lobectomy or other major thoracic surgery [ ]m) Lung transplant [ ]n) Symptomatic upper airway obstruction (eg, laryngeal edema, mass) [ ]o) Massive hemoptysis [ ]p) Infection or thrombosis of an intravenous device with ANY ONE of the following(6)(84): [ ]i) Hemodynamic instability [ ]ii) Requirement for frequent hemodynamic measurements [ ]iii) Shock [ ]iv) End organ dysfunction [ ] v) Acute renal failure due to missed dialysis [ ]vi) Unstable acute complication (eg, pericardial tamponade , tension pneumothorax) [ ]q) Traumatic rib fracture or fractures with ANY ONE of the following(85): [ ]i) Injury severity score of 19 or greater [ ]ii) Respiratory insufficiency [ ]iii) Flail chest [ ]iv) Sternum fracture [ ]v) Vascular injury (eg, heart or great vessels) [ ]r) Pleural effusion with ANY ONE of the following(86): [ ]i) Respiratory insufficiency [ ]ii) Hemothorax with active ongoing bleeding [ ]iii) Hemodynamic instability [ ]iv) Unstable comorbid condition (eg, sepsis or heart failure [ ]XX. Urology diagnoses or procedures, including ANY ONE of the following ( 87)(88): [ ]a) Renal transplant [ ]b) Complications of any surgery requiring ICU intervention as indicated by ANY ONE of the following: [ ]i) Hemodynamic instability [ ]ii) [place] with complications (eg, severe arrhythmia, hypotension) [ ]iii) Excessive bleeding or severe coagulopathy [ ]iv) Respiratory failure [ ]v) Renal failure [ ]vi) Airway instability or obstruction [ ]vii) Neurologic deterioration [ ]viii) Infection with likelihood of sepsis syndrome or significant fluid shifts [ ]c) Preoperative or postoperative patients requiring ICU intervention , such as hemodynamic optimization, pulmonary artery monitoring, mechanical ventilation , or extensive nursing care [ ]XXI.Infectious Disease diagnoses or procedures, with ANY ONE of the following (6)(43): [ ]a) Hemodynamic instability [ ]b) Shock [ ]c) Requirement for frequent hemodynamic measurements (eg, arterial catheter, pulmonary artery catheter) [ ]d) Sepsis or suspected sepsis with end organ dysfunction (eg, acute kidney injury, acute respiratory distress syndrome) [ ]e) Necrotizing soft tissue infection [ ] XXII.Hematology - Oncology diagnoses or procedures, including chemotherapy administration with ANY ONE of the following(42): [ ]a) Hemodynamic instability [ ]b) Tumor lysis syndrome with ANY ONE of the following : [ ]1) Acute kidney injury [ ]2) Severe electrolyte abnormality [ ]3) Cardiac dysrhythmia [ ]XXIII. Systemic conditions, including ANY ONE of the following: [ ]a) Severe electrolyte or metabolic disturbance causing or likely to cause ANY ONE of the following(10)(89)(90): [ ]i) Life-threatening cardiac dysrhythmia [ ]ii) Respiratory insufficiency [ ]iii) Altered mental status [ ]iv) Seizures [ ]v) Hemodynamic instability [ ]vi) Muscular weakness [ ]b) Environmental injuries such as hypothermia, hyperthermia, electrical injuries, or near drowning(70)(91)(92) The original [employer] content created by [employer] has been revised. The portions of the content which have been revised are identified through the use of italic text or in bold, and [facility] has neither reviewed nor approved the modified material. All other unmodified content is copyright [employer] the [facility] [employer] Please see references footnoted in the original [employer] the [facility] edition 2016 LV ORTIZ Nov 24, 2016 08:55
[2016-11-24] MEDS: FENTANYL STANDARD PCA 30 ML IV PRN (09:00)
--- NOTE | 2016-11-24 09:11 | RAD ---
CT of the head without contrast, 11/24/2016: History: Patient unresponsive Some of these images are compromised by patient motion artifact. The ventricles are within normal limits in size. There is no shift of the midline structures. There is no evidence of acute intracranial hemorrhage or mass effect. IMPRESSION: Suboptimal exam demonstrating no acute intracranial abnormality. PQRS Compliance Statement: One or more of the following individualized dose reduction techniques were utilized for this examination: 1. Automated exposure control 2. Adjustment of the mA and/or kV according to patient size 3. Use of iterative reconstruction technique
[2016-11-24] MEDS ORDERED: INSULIN REGULAR VIAL 150 UNIT in 0.9 % SODIUM CHLORIDE 150ML 150 ML IV PRN (09:30)
[2016-11-24] MEDS: MEPERIDINE PF 25 MG/ML VIAL. IV PRN ×2 (09:40→22:21)
--- NOTE | 2016-11-24 09:47 | PDOC2 ---
CARMELO POSADAS GRAPHICS EDITOR 11/24/16 0947: CARDIAC CONSULT DATE OF CONSULT Date of Consult DATE: 11/24/16 TIME: 09:45 REASON FOR CONSULT Reason for Consult: S/p cardiac arrest REFERRING PHYSICIAN Referring Physician: Dr. Woo SOURCE Source: Chart review HISTORY OF PRESENT ILLNESS HISTORY OF PRESENT ILLNESS This is a 71 yo male who presented secondary to cardiac arrest. Per son, around 6:15 this morning, [place] [facility] [place] [facility] [place] does every morning. Son noticed that he was leaning on truck, reporting the he did not feel well. Was diaphoretic and nauseated. Son tried to help him back to the house but patient was unable to walk. Patient then went unresponsive. Son lowered him to ground and called EMS, who arrived within 15-20mins. Per reports , patient in VT/VF upon arrival. CPR initiated by EMS. reports she noticed patient having difficulty with ambulation yesterday and was having to hold onto things for support, which was abnormal for him. Otherwise, reports no recent complaints including chest pain, palpitations, dizziness, SOA, ZARATE, or recent illness/fevers. Reports having stress test at [facility] approximately 1 year ago. PAST MEDICAL HISTORY Cardiovascular: HTN, Hyperlipidemia Pulmonary: No pertinent hx CENTRAL NERVOUS SYSTEM: Other (no pertinent hx ) GI: No pertinent hx Heme/Onc: No pertinent hx Hepatobiliary: No pertinent hx Psych: No pertinent hx Musculoskeletal: Osteoarthritis Rheumatologic: No pertinent hx Infectious disease: No pertinent hx ENT: No pertinent hx Renal/: Other (kidney stones ) Endocrine: Diabetes Dermatology: No pertinent hx FAMILY HISTORY Family History: Cancer, Coronary Artery Disease, Diabetes, Hypertension SOCIAL HISTORY Smoke: No ALCOHOL: none Drugs: None Lives: with Family CURRENT MEDICATIONS CURRENT MEDICATIONS Current Medications Medications (Trade) Dose Ordered Sig/Kika Route PRN Reason Start Time Stop Time Status Last Admin Dose Admin Sodium Chloride 1,000 ml @ 1,000 mls/hr Q1H IV 11/24/16 06:50 11/24/16 07:49 DC 11/24/16 06:50 Epinephrine HCl 4 mg/Sodium Chloride 254 ml @ 0 mls/hr CONT PRN IV SEE I/O RECORD 11/24/16 07:30 11/24/16 07:39 Sodium Chloride 1,000 ml @ 125 mls/hr 1X ONCE IV 11/24/16 08:00 11/24/16 08:20 DC 11/24/16 07:52 Sodium Bicarbonate/ Sodium Chloride (Iv Sodium Chloride 0.45%) 1,050 ml @ 125 mls/hr Q8H24M IV 11/24/16 08:30 11/24/16 08:32 Meperidine HCl (Demerol) 12.5 mg PRN Q30MIN PRN IV SHIVERING 11/24/16 08:45 11/24/16 09:40 ALLERGIES ALLERGIES: Coded Allergies: No Known Drug Allergies (Unverified , 11/24/16) ROS Review of System unobtainable PHYSICAL EXAM General: Other (intubated/sedated ) HEENT: Atraumatic, Mucous membr. moist/pink Lungs: Other (CTA; mechanical ventillation) Heart: Regular rate, Normal S1, Normal S2, Other (distant heart tones) Abdomen: Soft Extremities: No edema, Normal pulses, Other (cool to touch) Skin: No significant lesion Neuro: Other (unable to assess) Psych/Mental Status: Other (sedated ) VITALS VITALS Vital Signs Date Time Temp Pulse Resp B/P Pulse Ox O2 Delivery O2 Flow Rate FiO2 11/24/16 09:40 100 15.0 11/24/16 08:56 114 18 128/68 Ventilator LABS Lab: Laboratory Tests Test 11/24/16 07:15 11/24/16 07:17 11/24/16 07:45 White Blood Count 10.5x10^3/uL (4.0-11.0) Red Blood Count 3.56x10^6/uL (4.30-5.70) Hemoglobin 10.6g/dL (13.0-17.5) Hematocrit 34.0% (39.0-53.0) Mean Corpuscular Volume 96fL (79-100) Mean Corpuscular Hemoglobin 30pg (25-35) Mean Corpuscular Hemoglobin Concent 31g/dL (31-37) Red Cell Distribution Width 14.0% (11.5-14.5) Platelet Count 72x10^3/uL (140-400) Neutrophils (%) (Auto) 43% (31-73) Lymphocytes (%) (Auto) 48% (24-48) Monocytes (%) (Auto) 6% (0-9) Eosinophils (%) (Auto) 3% (0-3) Basophils (%) (Auto) 1% (0-3) Neutrophils # (Auto) 4.5x10^3uL (1.8-7.7) Lymphocytes # (Auto) 5.0x10^3/uL (1.0-4.8) Monocytes # (Auto) 0.6x10^3/uL (0.0-1.1) Eosinophils # (Auto) 0.3x10^3/uL (0.0-0.7) Basophils # (Auto) 0.1x10^3/uL (0.0-0.2) Sodium Level 156mmol/L (136-145) Potassium Level 3.6mmol/L (3.5-5.1) Chloride Level 113mmol/L (98-107) Carbon Dioxide Level 21mmol/L (21-32) Anion Gap 22 (6-14) 30mmol/L (6-14) Blood Urea Nitrogen 22mg/dL (8-26) Creatinine 1.6mg/dL (0.7-1.3) Estimated GFR (Cockcroft-Gault) 42.8 Glucose Level 364mg/dL (70-99) 400mg/dL (70-99) Lactic Acid Level 20.3mmol/L (0.4-2.0) Calcium Level 8.1mg/dL (8.5-10.1) Magnesium Level 2.1mg/dL (1.8-2.4) Total Bilirubin 0.2mg/dL (0.2-1.0) Direct Bilirubin 0.1mg/dL (0.0-0.2) Aspartate Amino Transf (AST/SGOT) 261U/L (15-37) Alanine Aminotransferase (ALT/SGPT) 378U/L (16-63) Alkaline Phosphatase 61U/L (46-116) Bedside Troponin I 0.12ng/ml (<0.08) Troponin I Quantitative 0.132ng/mL (0.000-0.055) IY-Izz-Y-Type Natriuretic Peptide 79pg/mL (0-124) Total Protein 4.9g/dL (6.4-8.2) Albumin 2.4g/dL (3.4-5.0) Lipase 158U/L (73-393) Bedside Hemoglobin 10.2g/dL (14-18) Bedside Hematocrit 30% (37-52) Bedside Sodium 147mmol/L (135-145) Bedside Potassium 4.3mmol/L (3.5-5.0) Bedside Chloride 110mmol/L (98-110) Bedside Total CO2 12mmol/L (23-32) Bedside Blood Urea Nitrogen 22mg/dL (8-26) Bedside Creatinine 1.4mg/dL (0.5-1.4) Bedside Ionized Calcium ([place]) 1.02mmol/L (1.13-1.32) Urine Collection Type Unknown Urine Color Yellow Urine Clarity Clear Urine pH 5.0 Urine Specific [place] 1.020 Urine Protein 30mg/dL (NEG-TRACE) Urine Glucose (UA) Negativemg/dL (NEG) Urine Ketones (Stick) Negativemg/dL (NEG) Urine Blood Small (NEG) Urine Nitrite Negative (NEG) Urine Bilirubin Negative (NEG) Urine Urobilinogen Dipstick 0.2mg/dL (0.2 mg/dL) Urine Leukocyte Esterase Negative (NEG) Urine RBC 6-10/HPF (0-2) Urine WBC Occ/HPF (0-4) Urine Squamous Epithelial Cells Occ/LPF Urine Amorphous Sediment Present/HPF Urine Bacteria Few/HPF (0-FEW) Urine Mucus Marked/LPF ASSESSMENT/PLAN ASSESSMENT/PLAN 1. Cardiac arrest; hypothermia protocol initiated 2. Hyperlipidemia 3. Leukocytosis 4. Lactic acidosis 5. Diabetes 6. H[place]IL[place] 7. Transaminitis Recommendations Obtain cardiac records from [facility] Continue with hypothermia protocol obtain echocardiogram. Trend troponin check lipids. ASA [place] Evaluate neuro status once rewarmed/sedation weaned to determine further plan of care If neuro status intact; consider for [facility]. Continue supportive care Problems: FARIDA ALDRICH MD 11/24/16 1710: CARDIAC CONSULT ALLERGIES ALLERGIES: Coded Allergies: No Known Drug Allergies (Unverified , 11/24/16) ASSESSMENT/PLAN ASSESSMENT/PLAN Patient seen and examined. Agree with above nurse practitioner noted. 71-year-old gentleman presenting with cardiac arrest. No preceding chest pain. On examination he is sedated. On hypothermic protocol. Normal heart tones. No significant lower extremity edema. Echocardiogram demonstrates mild to moderate LV systolic dysfunction. Troponin elevated to 4.9. The RV appeared dilated on echocardiogram suggestive of possible pulmonary emboli. He underwent lower extremity duplex scanning which reveals bilateral DVTs but this makes be secondary to his cardiac arrest and low-flow state for approximately 20-30 minutes. We will continue aggressive measures at this time and initiate him on a heparin protocol. Continue supportive care. Await neurologic recovery. He will likely ultimately benefit from a cardiac catheterization but at this time this does not appear to be his major inciting event. We will follow along closely. Problems: CARMELO POSADAS APRN Nov 24, 2016 09:47 FARIDA ALDRICH MD Nov 24, 2016 17:10
[2016-11-24] MEDS: VECURONIUM BOLUS 10 MG VIAL. IV PRN ×2 (10:10→17:38)
[2016-11-24] MEDS: PROPOFOL 100 ML IV PRN ×2 (10:11→16:41)
[2016-11-24] MEDS: ASPIRIN 300 MG SUPP.RECT PR SCH (10:15)
[2016-11-24 10:21] LABS: BARBITURATES NEG (NEG); BENZODIAZEPINES NEG (NEG); CANNABINOIDS NEG (NEG); COCAINE NEG (NEG); METHADONE NEG (NEG); OPIATES NEG (NEG); PHENCYCLIDINE NEG (NEG)
[2016-11-24 10:24] LABS: ETHANOL, URINE NEG (NEG)
[2016-11-24 10:25] LABS: BASO % 0 % (0-3); EOS % 2 % (0-3); HEMATOCRIT 35.7 % (39.0-53.0); HEMOGLOBIN 11.7 g/dL (13.0-17.5); LYMPH # 3.3 x10^3/uL (1.0-4.8); LYMPH % 18 % (24-48); MEAN CORPUSCULAR HEMOGLOBIN 30 pg (25-35); MEAN CORPUSCULAR HGB CONC 33 g/dL (31-37); MEAN CORPUSCULAR VOLUME 93 fL (79-100); MONO % 2 % (0-9); NEUT % 78 % (31-73); PLATELET COUNT 142 x10^3/uL (140-400); RED BLOOD COUNT 3.86 x10^6/uL (4.30-5.70); RED CELL DISTRIBUTION WIDTH 14.1 % (11.5-14.5); WHITE BLOOD COUNT 18.6 x10^3/uL (4.0-11.0)
[2016-11-24 10:48] LABS: CALCIUM 7.6 mg/dL (8.5-10.1); CREATININE 1.8 mg/dL (0.7-1.3); GFR 37.4; MAGNESIUM 2.1 mg/dL (1.8-2.4); PHOSPHORUS 8.3 mg/dL (2.6-4.7); POTASSIUM 4.5 mmol/L (3.5-5.1)
--- NOTE | 2016-11-24 11:02 | PDOC1 ---
History and Physical Date of Admission Date of Admission DATE: 11/24/16 TIME: 11:00 Identification/Chief Complaint Chief Complaint pulseless in field Source Source: Chart review History of Present Illness History of Present Illness reports from ER, pt intubated he had nausea and weakness, unsure of chest pain while preparing to exercise, early this AM, called EMS, was dyspneic when they arrived, then lost consciousness and went pulseless, witnessed arrest and reported Vtach/Vfib CPR in field immediately, intuabted in ER, coded again in ER X2, then rhythm and pulse retained Past Medical History Past Medical History unk Past Surgical History Past Surgical History: Other Family History Family History: Family History Unknown Current Problem List Problem List Problems Medical Problems: (1) Cardiac arrest Status: Acute Problems: Current Medications Current Medications Current Medications Sodium Chloride 1,000 ml @ 1,000 mls/hr Q1H IV Last administered on 11/24/16 06:50; Start 11/24/16 at 06:50; Stop 11/24/16 at 07:49; Status DC Epinephrine HCl/ Sodium Chloride (Adrenalin/Iv Sodium Chloride 0.9% 250ml) 254 ml @ 0 mls/hr CONT PRN IV SEE I/O RECORD Last administered on 11/24/16 07:39; Start 11/24/16 at 07:30 Insulin Aspart (Novolog) 0-7 UNITS TIDWMEALS SQ ; Start 11/24/16 at 08:00 Dextrose 12.5 gm 12.5 gm PRN Q15MIN PRN IV SEE COMMENTS; Start 11/24/16 at 07: 45 Sodium Chloride (Iv Sodium Chloride 0.9% 1000ml Bag) 1,000 ml @ 125 mls/hr 1X ONCE IV Last administered on 11/24/16 07:52; Start 11/24/16 at 08:00; Stop at 08:20; Status DC Vancomycin HCl (Vanco Per Pharmacy) 1 each PRN DAILY PRN MC SEE COMMENTS; Start 11/24/16 at 08:15 Piperacillin Sod/ Tazobactam Sod 1 each 1 each PRN DAILY PRN MC SEE COMMENTS; Start 11/24/16 at 08:15 Sodium Bicarbonate 50 meq/Sodium Chloride 1,050 ml @ 125 mls/hr Q8H24M IV Last administered on 11/24/16 08:32; Start 11/24/16 at 08:30 Vancomycin HCl 2 gm/Sodium Chloride 500 ml @ 250 mls/hr ONCE ONCE IV Last administered on 11/24/16 10:15; Start 11/24/16 at 08:30; Stop 11/24/16 at 10:29 ; Status DC Piperacillin Sod/ Tazobactam Sod 4.5 gm/Sodium Chloride 100 ml @ 200 mls/hr Q6HRS IV Last administered on 11/24/16 10:10; Start 11/24/16 at 08:30 Sodium Chloride (Iv Sodium Chloride 0.9% 1000ml Bag) 1,000 ml @ 1,000 mls/hr Q1H IV Last administered on 11/24/16 10:09; Start 11/24/16 at 08:39 Fentanyl Citrate (Fentanyl 2ml Vial) 25 mcg PRN Q30MIN PRN IV SED; Start at 08:45 Lorazepam 1 mg 1 mg PRN Q30MIN PRN IV SEDATION; Start 11/24/16 at 08:45 Fentanyl Citrate 30 ml @ 2.5 mls/hr CONT PRN PRN IV IVF Last administered on 09:00; Start 11/24/16 at 08:45 Propofol (Diprivan) 100 ml @ 0 mls/hr CONT PRN IV SEE I/O RECORD Last administered on 11/24/16 10:11; Start 11/24/16 at 08:45 Vecuronium [place] (Norcuron Bolus) 9 mg PRN Q30MIN PRN IV SHIVERING Last administered on 11/24/16 10:10; Start 11/24/16 at 08:45 Meperidine HCl (Demerol) 12.5 mg PRN Q30MIN PRN IV SHIVERING Last administered on 11/24/16 09:40; Start 11/24/16 at 08:45 Multi-Ingred Cream/Lotion/Oil/ Oint (Artificial Tears Eye Oint) 1 radha PRN Q6HRS PRN OU 0.5 INCH FOR DRY EYE; Start 11/24/16 at 08:45 Famotidine (Pepcid) 20 mg QHS IVP ; Start 11/24/16 at 21:00 Aspirin (Aspirin) 300 mg DAILY LA Last administered on 11/24/16 10:15; Start 11/24/16 at 09:00 Sodium Chloride (Normal Saline Flush) 3 ml QSHIFT PRN IV AFTER MEDS AND BLOOD DRAWS; Start 11/24/16 at 08:45 Acetaminophen (Tylenol) 650 mg Q6HRS NG ; Start 11/24/16 at 12:00; Stop at 11:59 Acetaminophen (Tylenol) 650 mg PRN Q6HRS PRN LA MILD PAIN / TEMP; Start at 08:45 Acetaminophen (Tylenol) 650 mg PRN Q6HRS PRN NG MILD PAIN / TEMP; Start at 08:45 Info 1 ea 1 ea DAILY PRN MC PER PROTOCOL; Start 11/26/16 at 08:45 Insulin Human Regular/Sodium Chloride (Novolin R Vial/ Iv Normal Saline 150ml) 151.5 ml @ 9.16 mls/hr CONT PRN IV SEE I/O RECORD Last administered on t 10:13; Start 11/24/16 at 09:30 Allergies Allergies: Coded Allergies: No Known Drug Allergies (Unverified , 11/24/16) ROS Review of System unable to complete Physical Exam HEENT: Other (no icterus, pupils reactive, left was sluggish earlier) Lungs: Normal air movement (vent, mech, no wheeze) Heart: S1S2, no murmurs Abdomen: Normal bowel sounds, Soft (obese) Rectal Exam: not examined Extremities: No cyanosis, No edema, Normal pulses Skin: No rashes, No breakdown, No significant lesion Psych/Mental Status: Other Vitals Vitals Vital Signs Date Time Temp Pulse Resp B/P Pulse Ox O2 Delivery O2 Flow Rate FiO2 11/24/16 10:08 Ventilator 11/24/16 09:40 100 15.0 11/24/16 08:56 114 18 128/68 Labs Labs Laboratory Tests Test 11/24/16 07:15 11/24/16 07:17 11/24/16 07:45 11/24/16 09:45 White Blood Count 10.5x10^3/uL (4.0-11.0) 18.6x10^3/uL (4.0-11.0) Red Blood Count 3.56x10^6/uL (4.30-5.70) 3.86x10^6/uL (4.30-5.70) Hemoglobin 10.6g/dL (13.0-17.5) 11.7g/dL (13.0-17.5) Hematocrit 34.0% (39.0-53.0) 35.7% (39.0-53.0) Mean Corpuscular Volume 96fL (79-100) 93fL (79-100) Mean Corpuscular Hemoglobin 30pg (25-35) 30pg (25-35) Mean Corpuscular Hemoglobin Concent 31g/dL (31-37) 33g/dL (31-37) Red Cell Distribution Width 14.0% (11.5-14.5) 14.1% (11.5-14.5) Platelet Count 72x10^3/uL (140-400) 142x10^3/uL (140-400) Neutrophils (%) (Auto) 43% (31-73) 78% (31-73) Lymphocytes (%) (Auto) 48% (24-48) 18% (24-48) Monocytes (%) (Auto) 6% (0-9) 2% (0-9) Eosinophils (%) (Auto) 3% (0-3) 2% (0-3) Basophils (%) (Auto) 1% (0-3) 0% (0-3) Neutrophils # (Auto) 4.5x10^3uL (1.8-7.7) 14.6x10^3uL (1.8-7.7) Lymphocytes # (Auto) 5.0x10^3/uL (1.0-4.8) 3.3x10^3/uL (1.0-4.8) Monocytes # (Auto) 0.6x10^3/uL (0.0-1.1) 0.3x10^3/uL (0.0-1.1) Eosinophils # (Auto) 0.3x10^3/uL (0.0-0.7) 0.3x10^3/uL (0.0-0.7) Basophils # (Auto) 0.1x10^3/uL (0.0-0.2) 0.0x10^3/uL (0.0-0.2) Sodium Level 156mmol/L (136-145) 146mmol/L (136-145) Potassium Level 3.6mmol/L (3.5-5.1) 4.5mmol/L (3.5-5.1) Chloride Level 113mmol/L (98-107) 109mmol/L (98-107) Carbon Dioxide Level 21mmol/L (21-32) 18mmol/L (21-32) Anion Gap 22 (6-14) 30mmol/L (6-14) 19 (6-14) Blood Urea Nitrogen 22mg/dL (8-26) 27mg/dL (8-26) Creatinine 1.6mg/dL (0.7-1.3) 1.8mg/dL (0.7-1.3) Estimated GFR (Cockcroft-Gault) 42.8 37.4 Glucose Level 364mg/dL (70-99) 400mg/dL (70-99) 317mg/dL (70-99) Lactic Acid Level 20.3mmol/L (0.4-2.0) Calcium Level 8.1mg/dL (8.5-10.1) 7.6mg/dL (8.5-10.1) Magnesium Level 2.1mg/dL (1.8-2.4) 2.1mg/dL (1.8-2.4) Total Bilirubin 0.2mg/dL (0.2-1.0) Direct Bilirubin 0.1mg/dL (0.0-0.2) Aspartate Amino Transf (AST/SGOT) 261U/L (15-37) Alanine Aminotransferase (ALT/SGPT) 378U/L (16-63) Alkaline Phosphatase 61U/L (46-116) Bedside Troponin I 0.12ng/ml (<0.08) Troponin I Quantitative 0.132ng/mL (0.000-0.055) SL-Jhy-B-Type Natriuretic Peptide 79pg/mL (0-124) Total Protein 4.9g/dL (6.4-8.2) Albumin 2.4g/dL (3.4-5.0) Lipase 158U/L (73-393) Bedside Hemoglobin 10.2g/dL (14-18) Bedside Hematocrit 30% (37-52) Bedside Sodium 147mmol/L (135-145) Bedside Potassium 4.3mmol/L (3.5-5.0) Bedside Chloride 110mmol/L (98-110) Bedside Total CO2 12mmol/L (23-32) Bedside Blood Urea Nitrogen 22mg/dL (8-26) Bedside Creatinine 1.4mg/dL (0.5-1.4) Bedside Ionized Calcium (Molina) 1.02mmol/L (1.13-1.32) Urine Collection Type Unknown Urine Color Yellow Urine Clarity Clear Urine pH 5.0 Urine Specific [place] 1.020 Urine Protein 30mg/dL (NEG-TRACE) Urine Glucose (UA) Negativemg/dL (NEG) Urine Ketones (Stick) Negativemg/dL (NEG) Urine Blood Small (NEG) Urine Nitrite Negative (NEG) Urine Bilirubin Negative (NEG) Urine Urobilinogen Dipstick 0.2mg/dL (0.2 mg/dL) Urine Leukocyte Esterase Negative (NEG) Urine RBC 6-10/HPF (0-2) Urine WBC Occ/HPF (0-4) Urine Squamous Epithelial Cells Occ/LPF Urine Amorphous Sediment Present/HPF Urine Bacteria Few/HPF (0-FEW) Urine Mucus Marked/LPF Urine Opiates Screen Neg (NEG) Urine Methadone Screen Neg (NEG) Urine Barbiturates Neg (NEG) Urine Phencyclidine Screen Neg (NEG) Urine Amphetamine/Methamphetamine Neg (NEG) Urine Benzodiazepines Screen Neg (NEG) Urine Cocaine Screen Neg (NEG) Urine Cannabinoids Screen Neg (NEG) Urine Ethyl Alcohol Neg (NEG) Phosphorus Level 8.3mg/dL (2.6-4.7) Laboratory Tests Test 11/24/16 07:15 11/24/16 07:17 11/24/16 07:45 11/24/16 09:45 White Blood Count 10.5x10^3/uL (4.0-11.0) 18.6x10^3/uL (4.0-11.0) Red Blood Count 3.56x10^6/uL (4.30-5.70) 3.86x10^6/uL (4.30-5.70) Hemoglobin 10.6g/dL (13.0-17.5) 11.7g/dL (13.0-17.5) Hematocrit 34.0% (39.0-53.0) 35.7% (39.0-53.0) Mean Corpuscular Volume 96fL (79-100) 93fL (79-100) Mean Corpuscular Hemoglobin 30pg (25-35) 30pg (25-35) Mean Corpuscular Hemoglobin Concent 31g/dL (31-37) 33g/dL (31-37) Red Cell Distribution Width 14.0% (11.5-14.5) 14.1% (11.5-14.5) Platelet Count 72x10^3/uL (140-400) 142x10^3/uL (140-400) Neutrophils (%) (Auto) 43% (31-73) 78% (31-73) Lymphocytes (%) (Auto) 48% (24-48) 18% (24-48) Monocytes (%) (Auto) 6% (0-9) 2% (0-9) Eosinophils (%) (Auto) 3% (0-3) 2% (0-3) Basophils (%) (Auto) 1% (0-3) 0% (0-3) Neutrophils # (Auto) 4.5x10^3uL (1.8-7.7) 14.6x10^3uL (1.8-7.7) Lymphocytes # (Auto) 5.0x10^3/uL (1.0-4.8) 3.3x10^3/uL (1.0-4.8) Monocytes # (Auto) 0.6x10^3/uL (0.0-1.1) 0.3x10^3/uL (0.0-1.1) Eosinophils # (Auto) 0.3x10^3/uL (0.0-0.7) 0.3x10^3/uL (0.0-0.7) Basophils # (Auto) 0.1x10^3/uL (0.0-0.2) 0.0x10^3/uL (0.0-0.2) Sodium Level 156mmol/L (136-145) 146mmol/L (136-145) Potassium Level 3.6mmol/L (3.5-5.1) 4.5mmol/L (3.5-5.1) Chloride Level 113mmol/L (98-107) 109mmol/L (98-107) Carbon Dioxide Level 21mmol/L (21-32) 18mmol/L (21-32) Anion Gap 22 (6-14) 30mmol/L (6-14) 19 (6-14) Blood Urea Nitrogen 22mg/dL (8-26) 27mg/dL (8-26) Creatinine 1.6mg/dL (0.7-1.3) 1.8mg/dL (0.7-1.3) Estimated GFR (Cockcroft-Gault) 42.8 37.4 Glucose Level 364mg/dL (70-99) 400mg/dL (70-99) 317mg/dL (70-99) Lactic Acid Level 20.3mmol/L (0.4-2.0) Calcium Level 8.1mg/dL (8.5-10.1) 7.6mg/dL (8.5-10.1) Magnesium Level 2.1mg/dL (1.8-2.4) 2.1mg/dL (1.8-2.4) Total Bilirubin 0.2mg/dL (0.2-1.0) Direct Bilirubin 0.1mg/dL (0.0-0.2) Aspartate Amino Transf (AST/SGOT) 261U/L (15-37) Alanine Aminotransferase (ALT/SGPT) 378U/L (16-63) Alkaline Phosphatase 61U/L (46-116) Bedside Troponin I 0.12ng/ml (<0.08) Troponin I Quantitative 0.132ng/mL (0.000-0.055) CL-Ils-K-Type Natriuretic Peptide 79pg/mL (0-124) Total Protein 4.9g/dL (6.4-8.2) Albumin 2.4g/dL (3.4-5.0) Lipase 158U/L (73-393) Bedside Hemoglobin 10.2g/dL (14-18) Bedside Hematocrit 30% (37-52) Bedside Sodium 147mmol/L (135-145) Bedside Potassium 4.3mmol/L (3.5-5.0) Bedside Chloride 110mmol/L (98-110) Bedside Total CO2 12mmol/L (23-32) Bedside Blood Urea Nitrogen 22mg/dL (8-26) Bedside Creatinine 1.4mg/dL (0.5-1.4) Bedside Ionized Calcium (Molina) 1.02mmol/L (1.13-1.32) Urine Collection Type Unknown Urine Color Yellow Urine Clarity Clear Urine pH 5.0 Urine Specific [place] 1.020 Urine Protein 30mg/dL (NEG-TRACE) Urine Glucose (UA) Negativemg/dL (NEG) Urine Ketones (Stick) Negativemg/dL (NEG) Urine Blood Small (NEG) Urine Nitrite Negative (NEG) Urine Bilirubin Negative (NEG) Urine Urobilinogen Dipstick 0.2mg/dL (0.2 mg/dL) Urine Leukocyte Esterase Negative (NEG) Urine RBC 6-10/HPF (0-2) Urine WBC Occ/HPF (0-4) Urine Squamous Epithelial Cells Occ/LPF Urine Amorphous Sediment Present/HPF Urine Bacteria Few/HPF (0-FEW) Urine Mucus Marked/LPF Urine Opiates Screen Neg (NEG) Urine Methadone Screen Neg (NEG) Urine Barbiturates Neg (NEG) Urine Phencyclidine Screen Neg (NEG) Urine Amphetamine/Methamphetamine Neg (NEG) Urine Benzodiazepines Screen Neg (NEG) Urine Cocaine Screen Neg (NEG) Urine Cannabinoids Screen Neg (NEG) Urine Ethyl Alcohol Neg (NEG) Phosphorus Level 8.3mg/dL (2.6-4.7) VTE Prophylaxis Ordered VTE Prophylaxis Devices: No VTE Pharmacological Prophylaxi: Yes Assessment/Plan Assessment/Plan chest pain cardiac arrest, concern for NSTEMI as cause, CV consult Admit to ICU, pt seen by me in ER start cooling protocol, discussed ith [employer] hypernatremia hypoalbumin, mod/.severe malnutrition CKD or vasomotor nephropathy, consult CV acute hypoxic respiratoyr failure, pulseless as likely cause,, consult CV DM2, hyperglycemia, insulin gtt was started admitted to ICU, JAN BAUMAN MD Nov 24, 2016 11:02
[2016-11-24 11:21] LABS: BASE EXCESS COOX -9 mmol/L (-3-3); CARBON MONOXIDE 0.3 % (0.0-1.9); HCO3 COOX 17 mmol/L (21-28); METHEMOGLOBIN 0.2 % (0.0-1.9); OXYHEMOGLOBIN 98.1 %; PCO2 COOX 38 mmHg (35-46); PH COOX 7.27 (7.35-7.45); PO2 COOX 201 mmHg (65-108); SAT O2 COOX 99 % (92-99); TOTAL HEMOGLOBIN 12.9 g/dL
[2016-11-24 11:25] LABS: PH ABG 6.93 (7.35-7.45)
[2016-11-24 11:26] LABS: FIO2 ABG 100
[2016-11-24 11:27] LABS: FIO2 COOX 100
[2016-11-24] MEDS: ACETAMINOPHEN 650 MG/20.3 ML SOLUTION. NG SCH ×2 (12:00→17:09)
--- NOTE | 2016-11-24 13:04 | PDOC ---
PULMONARY PROGRESS NOTES Vitals Vital Signs Date Time Temp Pulse Resp B/P Pulse Ox O2 Delivery O2 Flow Rate FiO2 11/24/16 11:10 100 Ventilator 11/24/16 09:40 15.0 11/24/16 08:56 114 18 128/68 Labs Laboratory Tests Test 11/24/16 06:50 11/24/16 07:15 11/24/16 07:17 11/24/16 07:45 O2 Saturation 98% (92-99) Arterial Blood pH 6.93 (7.35-7.45) Arterial Blood pCO2 at Patient Temp 57mmHg (35-46) Arterial Blood pO2 at Patient Temp 221mmHg (65-108) Arterial Blood HCO3 12mmol/L (21-28) Arterial Blood Base Excess -21mmol/L (-3-3) FiO2 100 White Blood Count 10.5x10^3/uL (4.0-11.0) Red Blood Count 3.56x10^6/uL (4.30-5.70) Hemoglobin 10.6g/dL (13.0-17.5) Hematocrit 34.0% (39.0-53.0) Mean Corpuscular Volume 96fL (79-100) Mean Corpuscular Hemoglobin 30pg (25-35) Mean Corpuscular Hemoglobin Concent 31g/dL (31-37) Red Cell Distribution Width 14.0% (11.5-14.5) Platelet Count 72x10^3/uL (140-400) Neutrophils (%) (Auto) 43% (31-73) Lymphocytes (%) (Auto) 48% (24-48) Monocytes (%) (Auto) 6% (0-9) Eosinophils (%) (Auto) 3% (0-3) Basophils (%) (Auto) 1% (0-3) Neutrophils # (Auto) 4.5x10^3uL (1.8-7.7) Lymphocytes # (Auto) 5.0x10^3/uL (1.0-4.8) Monocytes # (Auto) 0.6x10^3/uL (0.0-1.1) Eosinophils # (Auto) 0.3x10^3/uL (0.0-0.7) Basophils # (Auto) 0.1x10^3/uL (0.0-0.2) Sodium Level 156mmol/L (136-145) Potassium Level 3.6mmol/L (3.5-5.1) Chloride Level 113mmol/L (98-107) Carbon Dioxide Level 21mmol/L (21-32) Anion Gap 22 (6-14) 30mmol/L (6-14) Blood Urea Nitrogen 22mg/dL (8-26) Creatinine 1.6mg/dL (0.7-1.3) Estimated GFR (Cockcroft-Gault) 42.8 Glucose Level 364mg/dL (70-99) 400mg/dL (70-99) Lactic Acid Level 20.3mmol/L (0.4-2.0) Calcium Level 8.1mg/dL (8.5-10.1) Magnesium Level 2.1mg/dL (1.8-2.4) Total Bilirubin 0.2mg/dL (0.2-1.0) Direct Bilirubin 0.1mg/dL (0.0-0.2) Aspartate Amino Transf (AST/SGOT) 261U/L (15-37) Alanine Aminotransferase (ALT/SGPT) 378U/L (16-63) Alkaline Phosphatase 61U/L (46-116) Bedside Troponin I 0.12ng/ml (<0.08) Troponin I Quantitative 0.132ng/mL (0.000-0.055) TD-Lvz-S-Type Natriuretic Peptide 79pg/mL (0-124) Total Protein 4.9g/dL (6.4-8.2) Albumin 2.4g/dL (3.4-5.0) Lipase 158U/L (73-393) Bedside Hemoglobin 10.2g/dL (14-18) Bedside Hematocrit 30% (37-52) Bedside Sodium 147mmol/L (135-145) Bedside Potassium 4.3mmol/L (3.5-5.0) Bedside Chloride 110mmol/L (98-110) Bedside Total CO2 12mmol/L (23-32) Bedside Blood Urea Nitrogen 22mg/dL (8-26) Bedside Creatinine 1.4mg/dL (0.5-1.4) Bedside Ionized Calcium (Molina) 1.02mmol/L (1.13-1.32) Urine Collection Type Unknown Urine Color Yellow Urine Clarity Clear Urine pH 5.0 Urine Specific [place] 1.020 Urine Protein 30mg/dL (NEG-TRACE) Urine Glucose (UA) Negativemg/dL (NEG) Urine Ketones (Stick) Negativemg/dL (NEG) Urine Blood Small (NEG) Urine Nitrite Negative (NEG) Urine Bilirubin Negative (NEG) Urine Urobilinogen Dipstick 0.2mg/dL (0.2 mg/dL) Urine Leukocyte Esterase Negative (NEG) Urine RBC 6-10/HPF (0-2) Urine WBC Occ/HPF (0-4) Urine Squamous Epithelial Cells Occ/LPF Urine Amorphous Sediment Present/HPF Urine Bacteria Few/HPF (0-FEW) Urine Mucus Marked/LPF Urine Opiates Screen Neg (NEG) Urine Methadone Screen Neg (NEG) Urine Barbiturates Neg (NEG) Urine Phencyclidine Screen Neg (NEG) Urine Amphetamine/Methamphetamine Neg (NEG) Urine Benzodiazepines Screen Neg (NEG) Urine Cocaine Screen Neg (NEG) Urine Cannabinoids Screen Neg (NEG) Urine Ethyl Alcohol Neg (NEG) Test 11/24/16 09:45 11/24/16 11:10 White Blood Count 18.6x10^3/uL (4.0-11.0) Red Blood Count 3.86x10^6/uL (4.30-5.70) Hemoglobin 11.7g/dL (13.0-17.5) Hematocrit 35.7% (39.0-53.0) Mean Corpuscular Volume 93fL (79-100) Mean Corpuscular Hemoglobin 30pg (25-35) Mean Corpuscular Hemoglobin Concent 33g/dL (31-37) Red Cell Distribution Width 14.1% (11.5-14.5) Platelet Count 142x10^3/uL (140-400) Neutrophils (%) (Auto) 78% (31-73) Lymphocytes (%) (Auto) 18% (24-48) Monocytes (%) (Auto) 2% (0-9) Eosinophils (%) (Auto) 2% (0-3) Basophils (%) (Auto) 0% (0-3) Neutrophils # (Auto) 14.6x10^3uL (1.8-7.7) Lymphocytes # (Auto) 3.3x10^3/uL (1.0-4.8) Monocytes # (Auto) 0.3x10^3/uL (0.0-1.1) Eosinophils # (Auto) 0.3x10^3/uL (0.0-0.7) Basophils # (Auto) 0.0x10^3/uL (0.0-0.2) Sodium Level 146mmol/L (136-145) Potassium Level 4.5mmol/L (3.5-5.1) Chloride Level 109mmol/L (98-107) Carbon Dioxide Level 18mmol/L (21-32) Anion Gap 19 (6-14) Blood Urea Nitrogen 27mg/dL (8-26) Creatinine 1.8mg/dL (0.7-1.3) Estimated GFR (Cockcroft-Gault) 37.4 Glucose Level 317mg/dL (70-99) Lactic Acid Level 10.0mmol/L (0.4-2.0) Calcium Level 7.6mg/dL (8.5-10.1) Phosphorus Level 8.3mg/dL (2.6-4.7) Magnesium Level 2.1mg/dL (1.8-2.4) O2 Saturation 99% (92-99) Arterial Blood pH 7.27 (7.35-7.45) Arterial Blood pCO2 at Patient Temp 38mmHg (35-46) Arterial Blood pO2 at Patient Temp 201mmHg (65-108) Arterial Blood HCO3 17mmol/L (21-28) Arterial Blood Base Excess -9mmol/L (-3-3) Oxyhemoglobin 98.1% Methemoglobin 0.2% (0.0-1.9) Carbon Monoxide, Quantitative 0.3% (0.0-1.9) FiO2 100 Laboratory Tests Test 11/24/16 06:50 11/24/16 07:15 11/24/16 07:17 11/24/16 07:45 O2 Saturation 98% (92-99) Arterial Blood pH 6.93 (7.35-7.45) Arterial Blood pCO2 at Patient Temp 57mmHg (35-46) Arterial Blood pO2 at Patient Temp 221mmHg (65-108) Arterial Blood HCO3 12mmol/L (21-28) Arterial Blood Base Excess -21mmol/L (-3-3) FiO2 100 White Blood Count 10.5x10^3/uL (4.0-11.0) Red Blood Count 3.56x10^6/uL (4.30-5.70) Hemoglobin 10.6g/dL (13.0-17.5) Hematocrit 34.0% (39.0-53.0) Mean Corpuscular Volume 96fL (79-100) Mean Corpuscular Hemoglobin 30pg (25-35) Mean Corpuscular Hemoglobin Concent 31g/dL (31-37) Red Cell Distribution Width 14.0% (11.5-14.5) Platelet Count 72x10^3/uL (140-400) Neutrophils (%) (Auto) 43% (31-73) Lymphocytes (%) (Auto) 48% (24-48) Monocytes (%) (Auto) 6% (0-9) Eosinophils (%) (Auto) 3% (0-3) Basophils (%) (Auto) 1% (0-3) Neutrophils # (Auto) 4.5x10^3uL (1.8-7.7) Lymphocytes # (Auto) 5.0x10^3/uL (1.0-4.8) Monocytes # (Auto) 0.6x10^3/uL (0.0-1.1) Eosinophils # (Auto) 0.3x10^3/uL (0.0-0.7) Basophils # (Auto) 0.1x10^3/uL (0.0-0.2) Sodium Level 156mmol/L (136-145) Potassium Level 3.6mmol/L (3.5-5.1) Chloride Level 113mmol/L (98-107) Carbon Dioxide Level 21mmol/L (21-32) Anion Gap 22 (6-14) 30mmol/L (6-14) Blood Urea Nitrogen 22mg/dL (8-26) Creatinine 1.6mg/dL (0.7-1.3) Estimated GFR (Cockcroft-Gault) 42.8 Glucose Level 364mg/dL (70-99) 400mg/dL (70-99) Lactic Acid Level 20.3mmol/L (0.4-2.0) Calcium Level 8.1mg/dL (8.5-10.1) Magnesium Level 2.1mg/dL (1.8-2.4) Total Bilirubin 0.2mg/dL (0.2-1.0) Direct Bilirubin 0.1mg/dL (0.0-0.2) Aspartate Amino Transf (AST/SGOT) 261U/L (15-37) Alanine Aminotransferase (ALT/SGPT) 378U/L (16-63) Alkaline Phosphatase 61U/L (46-116) Bedside Troponin I 0.12ng/ml (<0.08) Troponin I Quantitative 0.132ng/mL (0.000-0.055) UE-Itt-P-Type Natriuretic Peptide 79pg/mL (0-124) Total Protein 4.9g/dL (6.4-8.2) Albumin 2.4g/dL (3.4-5.0) Lipase 158U/L (73-393) Bedside Hemoglobin 10.2g/dL (14-18) Bedside Hematocrit 30% (37-52) Bedside Sodium 147mmol/L (135-145) Bedside Potassium 4.3mmol/L (3.5-5.0) Bedside Chloride 110mmol/L (98-110) Bedside Total CO2 12mmol/L (23-32) Bedside Blood Urea Nitrogen 22mg/dL (8-26) Bedside Creatinine 1.4mg/dL (0.5-1.4) Bedside Ionized Calcium ([place]ol[place]) 1.02mmol/L (1.13-1.32) Urine Collection Type Unknown Urine Color Yellow Urine Clarity Clear Urine pH 5.0 Urine Specific [place] 1.020 Urine Protein 30mg/dL (NEG-TRACE) Urine Glucose (UA) Negativemg/dL (NEG) Urine Ketones (Stick) Negativemg/dL (NEG) Urine Blood Small (NEG) Urine Nitrite Negative (NEG) Urine Bilirubin Negative (NEG) Urine Urobilinogen Dipstick 0.2mg/dL (0.2 mg/dL) Urine Leukocyte Esterase Negative (NEG) Urine RBC 6-10/HPF (0-2) Urine WBC Occ/HPF (0-4) Urine Squamous Epithelial Cells Occ/LPF Urine Amorphous Sediment Present/HPF Urine Bacteria Few/HPF (0-FEW) Urine Mucus Marked/LPF Urine Opiates Screen Neg (NEG) Urine Methadone Screen Neg (NEG) Urine Barbiturates Neg (NEG) Urine Phencyclidine Screen Neg (NEG) Urine Amphetamine/Methamphetamine Neg (NEG) Urine Benzodiazepines Screen Neg (NEG) Urine Cocaine Screen Neg (NEG) Urine Cannabinoids Screen Neg (NEG) Urine Ethyl Alcohol Neg (NEG) Test 11/24/16 09:45 11/24/16 11:10 White Blood Count 18.6x10^3/uL (4.0-11.0) Red Blood Count 3.86x10^6/uL (4.30-5.70) Hemoglobin 11.7g/dL (13.0-17.5) Hematocrit 35.7% (39.0-53.0) Mean Corpuscular Volume 93fL (79-100) Mean Corpuscular Hemoglobin 30pg (25-35) Mean Corpuscular Hemoglobin Concent 33g/dL (31-37) Red Cell Distribution Width 14.1% (11.5-14.5) Platelet Count 142x10^3/uL (140-400) Neutrophils (%) (Auto) 78% (31-73) Lymphocytes (%) (Auto) 18% (24-48) Monocytes (%) (Auto) 2% (0-9) Eosinophils (%) (Auto) 2% (0-3) Basophils (%) (Auto) 0% (0-3) Neutrophils # (Auto) 14.6x10^3uL (1.8-7.7) Lymphocytes # (Auto) 3.3x10^3/uL (1.0-4.8) Monocytes # (Auto) 0.3x10^3/uL (0.0-1.1) Eosinophils # (Auto) 0.3x10^3/uL (0.0-0.7) Basophils # (Auto) 0.0x10^3/uL (0.0-0.2) Sodium Level 146mmol/L (136-145) Potassium Level 4.5mmol/L (3.5-5.1) Chloride Level 109mmol/L (98-107) Carbon Dioxide Level 18mmol/L (21-32) Anion Gap 19 (6-14) Blood Urea Nitrogen 27mg/dL (8-26) Creatinine 1.8mg/dL (0.7-1.3) Estimated GFR (Cockcroft-Gault) 37.4 Glucose Level 317mg/dL (70-99) Lactic Acid Level 10.0mmol/L (0.4-2.0) Calcium Level 7.6mg/dL (8.5-10.1) Phosphorus Level 8.3mg/dL (2.6-4.7) Magnesium Level 2.1mg/dL (1.8-2.4) O2 Saturation 99% (92-99) Arterial Blood pH 7.27 (7.35-7.45) Arterial Blood pCO2 at Patient Temp 38mmHg (35-46) Arterial Blood pO2 at Patient Temp 201mmHg (65-108) Arterial Blood HCO3 17mmol/L (21-28) Arterial Blood Base Excess -9mmol/L (-3-3) Oxyhemoglobin 98.1% Methemoglobin 0.2% (0.0-1.9) Carbon Monoxide, Quantitative 0.3% (0.0-1.9) FiO2 100 Impression . FULL NOTE DICTATED SPOKE WITH CXR NORMAL NO INFILTRATE WILL HOLD ANITBX FOR NOW LEUKOCYTOSIS IS REACTIVE MC GUILLORY MD Nov 24, 2016 13:04
[2016-11-24 13:26] LABS: % EOS 5 % (0-5); PLT ESTIMATE ADEQUATE (ADEQUATE)
[2016-11-24 13:27] LABS: BURR CELLS FEW
--- NOTE | 2016-11-24 15:27 | CARD ---
APPROVED REPORT EXAM: Two-dimensional and M-mode echocardiogram with Doppler and color Doppler. Other Information Quality : Poor Rhythm : NSR INDICATION Cardiac arrest 2D DIMENSIONS RVDd2.4 (2.9-3.5cm)Left Atrium(2D)3.2 (1.6-4.0cm) IVSd1.0 (0.7-1.1cm)Aortic Root(2D)3.4 (2.0-3.7cm) LVDd3.7 (3.9-5.9cm)LVOT Diameter2.5 (1.8-2.4cm) PWd1.0 (0.7-1.1cm)LVDs3.2 (2.5-4.0cm) FS (%) 15.2 %SV19.3 ml LVEF(%)32.8 (>50%) Mitral Valve MV E Mofgmroc04.7cm/sMV E Peak Gr.2mmHg MV DECEL [id number] A Qitfpqjb30.0cm/s MV E Mean Gr.1mmHgE/A Ratio0.3 MV A [id number] Pulmonary Valve PV Peak Lresopqf27.3cm/s Tricuspid Valve TR P. [id number]/sTR Peak Gr.26mmHg LEFT VENTRICLE The left ventricle is normal size. There is normal left ventricular wall thickness. Left ventricle sy stolic function is mild to moderately decreased. The Ejection Fraction is 35-40%. There is severe hyp okinesis in the basal inferior and inferolateral wall Transmitral Doppler flow pattern is Grade I-abn ormal relaxation pattern. No left ventricle thrombus noted on this study. RIGHT VENTRICLE The right ventricle is moderately dilated. There is normal right ventricular wall thickness. Systolic function is mildly reduced. ATRIA The left atrium is mildly dilated. The right atrium size is normal. The interatrial septum is intact with no evidence for an atrial septal defect or patent foramen ovale as noted on 2-D or Doppler imagi ng. AORTIC VALVE The aortic valve is mildly thickened. Doppler and Color Flow revealed no significant aortic regurgita tion. There is no significant aortic valvular stenosis. MITRAL VALVE The mitral valve leaflets are thickened. There is no mitral valve stenosis. Doppler and Color Flow re vealed no mitral valve regurgitation noted. TRICUSPID VALVE Doppler and Color Flow revealed mild tricuspid regurgitation. The pulmonary artery systolic pressure is estimated at 31 mmHg. There is mild pulmonary hypertension. PULMONIC VALVE Doppler and Color Flow revealed trace pulmonic valvular regurgitation. There is no pulmonic valvular stenosis. GREAT VESSELS The aortic root is normal in size. The ascending aorta is normal in size. The IVC was not visualized. PERICARDIAL EFFUSION There is no evidence of significant pericardial effusion. Critical Notification Critical Value: No <Conclusion> Left ventricle systolic function is mild to moderately decreased. The Ejection Fraction is 35-40%. There is severe hypokinesis in the basal inferior and inferolateral wall. The right ventricle is moderately dilated. RV Systolic function is mildly reduced. Doppler and Color Flow revealed mild tricuspid regurgitation. The pulmonary artery systolic pressure is estimated at 31 mmHg. There is mild pulmonary hypertension.
[2016-11-24] MEDS ORDERED: INSULIN ASPART 300 UNITS/3 ML INSULN.PEN SQ ONE (15:30)
--- NOTE | 2016-11-24 15:39 | PDOC2 ---
GI CONSULT Reason For Consult: Multiple foul smelling stools post code HPI: HPI: 71 y/o male intubated and sedated in ICU s/p cardiac arrest. History from cardiology, RN, and family. Has been in his usual state of health except for some unsteadiness noted by his yesterday which did not prevent him from attending his granddaughter's sporting event. This morning on his way to the gym, his son noticed he was leaning against his truck w/ nausea and feeling he might pass out. He became unresponsive. Was found in V tach/fib when EMS arrived ~15 minutes later. Family denies GI history. Does have h/o colon polyps; reports normal colonoscopy at [facility] last year. Since admitted to ICU has had two episodes of passing large amount of liquid, mucousy, malodorous, pinkish-colored stools. While placing rectal tube when he was turned to his side, had some similar output from his mouth around OG. PMH: PMH: HTN, HLD, OA, nephrolithiasis, DM, colon polyps FH: Family History: Cancer, CAD, DM, Hypertension Social History: Smoke: No ALCOHOL: none Drugs: None ROS: Unobtainable. VItals: Vitals: Vital Signs Date Time Temp Pulse Resp B/P Pulse Ox O2 Delivery O2 Flow Rate FiO2 11/24/16 15:00 78 24 121/73 99 Ventilator 11/24/16 09:40 15.0 Labs: Labs: Laboratory Tests Test 11/24/16 06:50 11/24/16 07:15 11/24/16 07:17 11/24/16 07:45 O2 Saturation 98% (92-99) Arterial Blood pH 6.93 (7.35-7.45) Arterial Blood pCO2 at Patient Temp 57mmHg (35-46) Arterial Blood pO2 at Patient Temp 221mmHg (65-108) Arterial Blood HCO3 12mmol/L (21-28) Arterial Blood Base Excess -21mmol/L (-3-3) FiO2 100 White Blood Count 10.5x10^3/uL (4.0-11.0) Red Blood Count 3.56x10^6/uL (4.30-5.70) Hemoglobin 10.6g/dL (13.0-17.5) Hematocrit 34.0% (39.0-53.0) Mean Corpuscular Volume 96fL (79-100) Mean Corpuscular Hemoglobin 30pg (25-35) Mean Corpuscular Hemoglobin Concent 31g/dL (31-37) Red Cell Distribution Width 14.0% (11.5-14.5) Platelet Count 72x10^3/uL (140-400) Neutrophils (%) (Auto) 43% (31-73) Lymphocytes (%) (Auto) 48% (24-48) Monocytes (%) (Auto) 6% (0-9) Eosinophils (%) (Auto) 3% (0-3) Basophils (%) (Auto) 1% (0-3) Neutrophils # (Auto) 4.5x10^3uL (1.8-7.7) Lymphocytes # (Auto) 5.0x10^3/uL (1.0-4.8) Monocytes # (Auto) 0.6x10^3/uL (0.0-1.1) Eosinophils # (Auto) 0.3x10^3/uL (0.0-0.7) Basophils # (Auto) 0.1x10^3/uL (0.0-0.2) Sodium Level 156mmol/L (136-145) Potassium Level 3.6mmol/L (3.5-5.1) Chloride Level 113mmol/L (98-107) Carbon Dioxide Level 21mmol/L (21-32) Anion Gap 22 (6-14) 30mmol/L (6-14) Blood Urea Nitrogen 22mg/dL (8-26) Creatinine 1.6mg/dL (0.7-1.3) Estimated GFR (Cockcroft-Gault) 42.8 Glucose Level 364mg/dL (70-99) 400mg/dL (70-99) Lactic Acid Level 20.3mmol/L (0.4-2.0) Calcium Level 8.1mg/dL (8.5-10.1) Magnesium Level 2.1mg/dL (1.8-2.4) Total Bilirubin 0.2mg/dL (0.2-1.0) Direct Bilirubin 0.1mg/dL (0.0-0.2) Aspartate Amino Transf (AST/SGOT) 261U/L (15-37) Alanine Aminotransferase (ALT/SGPT) 378U/L (16-63) Alkaline Phosphatase 61U/L (46-116) Bedside Troponin I 0.12ng/ml (<0.08) Troponin I Quantitative 0.132ng/mL (0.000-0.055) WF-Izt-Z-Type Natriuretic Peptide 79pg/mL (0-124) Total Protein 4.9g/dL (6.4-8.2) Albumin 2.4g/dL (3.4-5.0) Triglycerides Level 174mg/dL (0-150) Cholesterol Level 79mg/dL (0-200) LDL Cholesterol, Calculated 18mg/dL (0-100) VLDL Cholesterol, Calculated 35mg/dL (0-40) HDL Cholesterol 26mg/dL (40-60) Cholesterol/HDL Ratio 3.0 Lipase 158U/L (73-393) Bedside Hemoglobin 10.2g/dL (14-18) Bedside Hematocrit 30% (37-52) Bedside Sodium 147mmol/L (135-145) Bedside Potassium 4.3mmol/L (3.5-5.0) Bedside Chloride 110mmol/L (98-110) Bedside Total CO2 12mmol/L (23-32) Bedside Blood Urea Nitrogen 22mg/dL (8-26) Bedside Creatinine 1.4mg/dL (0.5-1.4) Bedside Ionized Calcium ([place]) 1.02mmol/L (1.13-1.32) Urine Collection Type Unknown Urine Color Yellow Urine Clarity Clear Urine pH 5.0 Urine Specific [place] 1.020 Urine Protein 30mg/dL (NEG-TRACE) Urine Glucose (UA) Negativemg/dL (NEG) Urine Ketones (Stick) Negativemg/dL (NEG) Urine Blood Small (NEG) Urine Nitrite Negative (NEG) Urine Bilirubin Negative (NEG) Urine Urobilinogen Dipstick 0.2mg/dL (0.2 mg/dL) Urine Leukocyte Esterase Negative (NEG) Urine RBC 6-10/HPF (0-2) Urine WBC Occ/HPF (0-4) Urine Squamous Epithelial Cells Occ/LPF Urine Amorphous Sediment Present/HPF Urine Bacteria Few/HPF (0-FEW) Urine Mucus Marked/LPF Urine Opiates Screen Neg (NEG) Urine Methadone Screen Neg (NEG) Urine Barbiturates Neg (NEG) Urine Phencyclidine Screen Neg (NEG) Urine Amphetamine/Methamphetamine Neg (NEG) Urine Benzodiazepines Screen Neg (NEG) Urine Cocaine Screen Neg (NEG) Urine Cannabinoids Screen Neg (NEG) Urine Ethyl Alcohol Neg (NEG) Test 11/24/16 09:45 11/24/16 11:10 White Blood Count 18.6x10^3/uL (4.0-11.0) Red Blood Count 3.86x10^6/uL (4.30-5.70) Hemoglobin 11.7g/dL (13.0-17.5) Hematocrit 35.7% (39.0-53.0) Mean Corpuscular Volume 93fL (79-100) Mean Corpuscular Hemoglobin 30pg (25-35) Mean Corpuscular Hemoglobin Concent 33g/dL (31-37) Red Cell Distribution Width 14.1% (11.5-14.5) Platelet Count 142x10^3/uL (140-400) Neutrophils (%) (Auto) 78% (31-73) Lymphocytes (%) (Auto) 18% (24-48) Monocytes (%) (Auto) 2% (0-9) Eosinophils (%) (Auto) 2% (0-3) Basophils (%) (Auto) 0% (0-3) Neutrophils # (Auto) 14.6x10^3uL (1.8-7.7) Lymphocytes # (Auto) 3.3x10^3/uL (1.0-4.8) Monocytes # (Auto) 0.3x10^3/uL (0.0-1.1) Eosinophils # (Auto) 0.3x10^3/uL (0.0-0.7) Basophils # (Auto) 0.0x10^3/uL (0.0-0.2) Segmented Neutrophils % 56% (35-66) Band Neutrophils % 19% (0-9) Lymphocytes % 17% (24-48) Eosinophils % 5% (0-5) Metamyelocytes % 1% (0-0) Myelocytes % 2% (0-0) Platelet Estimate Adequate (ADEQUATE) [place] Cells Few Sodium Level 146mmol/L (136-145) Potassium Level 4.5mmol/L (3.5-5.1) Chloride Level 109mmol/L (98-107) Carbon Dioxide Level 18mmol/L (21-32) Anion Gap 19 (6-14) Blood Urea Nitrogen 27mg/dL (8-26) Creatinine 1.8mg/dL (0.7-1.3) Estimated GFR (Cockcroft-Gault) 37.4 Glucose Level 317mg/dL (70-99) Lactic Acid Level 10.0mmol/L (0.4-2.0) Calcium Level 7.6mg/dL (8.5-10.1) Phosphorus Level 8.3mg/dL (2.6-4.7) Magnesium Level 2.1mg/dL (1.8-2.4) O2 Saturation 99% (92-99) Arterial Blood pH 7.27 (7.35-7.45) Arterial Blood pCO2 at Patient Temp 38mmHg (35-46) Arterial Blood pO2 at Patient Temp 201mmHg (65-108) Arterial Blood HCO3 17mmol/L (21-28) Arterial Blood Base Excess -9mmol/L (-3-3) Oxyhemoglobin 98.1% Methemoglobin 0.2% (0.0-1.9) Carbon Monoxide, Quantitative 0.3% (0.0-1.9) FiO2 100 Allergies: Coded Allergies: No Known Drug Allergies (Unverified , 11/24/16) Medications: Current Medications Medications (Trade) Dose Ordered Sig/Kika Route PRN Reason Start Time Stop Time Status Last Admin Dose Admin Sodium Chloride 1,000 ml @ 1,000 mls/hr Q1H IV 11/24/16 06:50 11/24/16 07:49 DC 11/24/16 06:50 Epinephrine HCl 4 mg/Sodium Chloride 254 ml @ 0 mls/hr CONT PRN IV SEE I/O RECORD 11/24/16 07:30 11/24/16 07:39 Sodium Chloride (Iv Sodium Chloride 0.9% 1000ml Bag) 1,000 ml @ 125 mls/hr 1X ONCE IV 11/24/16 08:00 11/24/16 08:20 DC 11/24/16 07:52 Vancomycin HCl 1 each 1 each PRN DAILY PRN MC SEE COMMENTS 11/24/16 08:15 11/24/16 13:06 DC 11/24/16 11:26 Sodium Bicarbonate 50 meq/Sodium Chloride 1,050 ml @ 125 mls/hr Q8H24M IV 11/24/16 08:30 11/24/16 08:32 Vancomycin HCl 2 gm/Sodium Chloride 500 ml @ 250 mls/hr ONCE ONCE IV 11/24/16 08:30 11/24/16 10:29 DC 11/24/16 10:15 Piperacillin Sod/ Tazobactam Sod 4.5 gm/Sodium Chloride 100 ml @ 200 mls/hr Q6HRS IV 11/24/16 08:30 11/24/16 11:15 DC 11/24/16 10:10 Sodium Chloride 1,000 ml @ 1,000 mls/hr Q1H IV 11/24/16 08:39 11/24/16 11:47 DC 11/24/16 10:09 Fentanyl Citrate 30 ml @ 2.5 mls/hr CONT PRN PRN IV IVF 11/24/16 08:45 11/24/16 09:00 Propofol (Diprivan) 100 ml @ 0 mls/hr CONT PRN IV SEE I/O RECORD 11/24/16 08:45 11/24/16 10:11 Vecuronium [place]den (Norcuron Bolus) 9 mg PRN Q30MIN PRN IV SHIVERING 11/24/16 08:45 11/24/16 10:10 Meperidine HCl (Demerol) 12.5 mg PRN Q30MIN PRN IV SHIVERING 11/24/16 08:45 11/24/16 09:40 Aspirin 300 mg 300 mg DAILY MS 11/24/16 09:00 11/24/16 10:15 Insulin Human Regular 150 unit/ Sodium Chloride 151.5 ml @ 9.16 mls/hr CONT PRN IV SEE I/O RECORD 11/24/16 09:30 11/24/16 10:13 Sodium Chloride (Iv Sodium Chloride 0.9% 1000ml Bag) 1,000 ml @ 1,000 mls/hr 1X ONCE IV 11/24/16 11:00 11/24/16 11:59 DC 11/24/16 11:00 Imaging: Imaging: CXR 11/24/16 IMPRESSION: 1. The ET tube and NG tube are in satisfactory positions. 2. Mild cardiomegaly CT head 11/24/16 IMPRESSION: Suboptimal exam demonstrating no acute intracranial abnormality. PE: GEN: intubated HEENT: atraumatic LUNGS: CTAB anteriorly, on vent HEART: S1S2 ABD: BS quiet, soft EXTREMITY: no edema SKIN: no rashes, no jaundice NEURO/PSYCH: sedated A/P: A/P: Cardiac arrest Lactic acidosis, leukocytosis, transaminitis Diarrhea -large volume, pinkish, malodorous stools -now w/ rectal tube in place -- D/w Dr. Bowers. Suspect bowel ischemia. Continue supportive care. Will also check abd US to eval liver. Note surgical consult. D/w patient's family. YAMEL CUEVAS Nov 24, 2016 15:39
[2016-11-24] MEDS ORDERED: INSULIN ASPART 300 UNITS/3 ML INSULN.PEN SQ SCH (16:00)
[2016-11-24 16:37] LABS: CALCIUM 7.7 mg/dL (8.5-10.1); CREATININE 1.7 mg/dL (0.7-1.3); GFR 39.9; MAGNESIUM 1.7 mg/dL (1.8-2.4); PHOSPHORUS 2.5 mg/dL (2.6-4.7); POTASSIUM 3.2 mmol/L (3.5-5.1)
[2016-11-24] MEDS ORDERED: HEPARIN for IV BOLUS 10,000 UNIT/10 ML VIAL. IV PRN (16:45)
[2016-11-24] MEDS ORDERED: HEPARIN for IV BOLUS 10,000 UNIT/10 ML VIAL. IV ONE (17:00)
[2016-11-24] MEDS: HEPARIN 25,000UTS/500ML PREMIX 500 ML IV PRN (17:28)
[2016-11-24 17:57] LABS: NEG OBC FOB NEG; POS OBC FOB POS
[2016-11-24] MEDS ORDERED: PIPERACILLIN/TAZOBACTAM 3.375 GM in IV NORMAL SALINE 50ML 50 ML IV SCH (18:00)
[2016-11-24] MEDS ORDERED: INSULIN DETEMIR 300 UNITS/3 ML INSULN.PEN. SQ SCH (21:00)
[2016-11-24] MEDS ORDERED: VANCOMYCIN 1 GM in IV NORMAL SALINE 250ML 250 ML IV ONE (21:30)
[2016-11-24] MEDS: FAMOTIDINE 20 MG/2 ML VIAL IVP SCH (22:21)
[2016-11-24 22:26] LABS: HEMATOCRIT 36.3 % (39.0-53.0); HEMOGLOBIN 11.8 g/dL (13.0-17.5); RED BLOOD COUNT 3.98 x10^6/uL (4.30-5.70); RED CELL DISTRIBUTION WIDTH 13.6 % (11.5-14.5); WHITE BLOOD COUNT 15.4 x10^3/uL (4.0-11.0)
[2016-11-24 22:34] LABS: CALCIUM 7.8 mg/dL (8.5-10.1); CREATININE 1.8 mg/dL (0.7-1.3); GFR 37.4; MAGNESIUM 1.5 mg/dL (1.8-2.4); PHOSPHORUS 3.4 mg/dL (2.6-4.7); POTASSIUM 3.8 mmol/L (3.5-5.1)
[2016-11-25] VITALS (25 sets, daily range): BP systolic 82–133; BP diastolic 44–59
[2016-11-25] MEDS: PROPOFOL 100 ML IV PRN ×4 (00:19→20:06)
[2016-11-25] MEDS: PIPERACILLIN/TAZOBACTAM 3.375 GM in IV NORMAL SALINE 50ML 50 ML IV SCH ×5 (00:19→23:56)
[2016-11-25] MEDS: FENTANYL STANDARD PCA 30 ML IV PRN ×4 (00:20→23:56)
[2016-11-25] MEDS ORDERED: VANCOMYCIN PER PHARMACY MC PRN (01:00)
--- NOTE | 2016-11-25 01:18 | CONS ---
DATE OF CONSULTATION: 11/24/2016 ATTENDING PHYSICIAN: Dr. Shameka Salcedo. REASON FOR CONSULTATION: The patient was seen in pulmonary consultation at the request of Dr. Salcedo for ventilator management. HISTORY OF PRESENT ILLNESS: The patient is a 71-year-old that basically exercises on a daily basis - apparently, he was getting ready to exercise. He lost consciousness and was pulseless. EMS was summoned, they resuscitated him, and he is currently intubated. He is currently undergoing a hypothermia protocol. I was asked to manage his ventilator. The who was at the bedside, states that he is pretty much healthy and exercises on a daily basis. His only medical problems include hyperlipidemia and diabetes. PAST MEDICAL HISTORY: Hyperlipidemia and diabetes. HOME MEDICATIONS: Include metformin and anti-lipid agent. REVIEW OF SYSTEMS: Unobtainable secondary to the patient's condition. SOCIAL HISTORY: He has never smoked. FAMILY HISTORY: Unknown. PHYSICAL EXAMINATION: GENERAL: The patient is currently off of Levophed. He is sedated. He is receiving IV insulin and he is currently on a rate of 24, tidal volume 670%, and 5 of peep. His blood gas revealed a pH of 7.27, PaCO2 of 38, and PaO2 of 201. HEENT: Eyes, the sclerae were nonicteric. NECK: Jugular venous distention could not be assessed. LUNGS: Adequate airway flow anteriorly. CARDIOVASCULAR: Regular rate and rhythm with S1 and S2, no S3. ABDOMEN: Soft. No bowel sounds. EXTREMITIES: No clubbing or cyanosis. No pitting edema noted. NEUROLOGIC: The patient was sedated and undergoing hypothermic protocol. LABORATORY DATA: Labs were reviewed. White count was elevated. Hemoglobin and hematocrit were noted. Electrolytes were deranged. BUN was elevated. Creatinine was elevated. Lactic acid level was initially 20, down to 10. Troponin was elevated. Albumin upon admission was low. IMAGING: Chest x-ray was reviewed. I do not appreciate any infiltrates. There was cardiomegaly. CT head reported suboptimal exam. No acute intracranial abnormalities. IMPRESSION: 1. Acute respiratory failure secondary to [id number] cardiopulmonary arrest. Suspect that this is secondary to arrhythmia. 2. Hyperlipidemia. 3. Diabetes. PLAN: 1. We will continue current support with mechanical ventilation. 2. Follow hypothermic protocol. 3. Cardiology has been consulted. 4. Once the patient is warm and his neurological status improves, we will wean him off the mechanical ventilation. 5. Further cardiac workup per Dr. Lu. 6. Titrate FIO2. 7. No need for antibiotics. I do appreciate the privilege in sharing in the patient's care. Total cumulative critical care time of 40 minutes. MC GUILLORY MD DR: DEBI/mariajose JOB#: [id number] / [id number]
[2016-11-25] MEDS: SODIUM BICARBONATE VIAL 50 MEQ in IV 1/2 NORMAL SALINE 1,000 ML IV SCH ×3 (01:22→18:32)
[2016-11-25] MEDS: HEPARIN 25,000UTS/500ML PREMIX 500 ML IV PRN ×2 (01:43→17:36)
[2016-11-25 02:28] LABS: CALCIUM 7.3 mg/dL (8.5-10.1); CREATININE 1.7 mg/dL (0.7-1.3); GFR 39.9; MAGNESIUM 1.4 mg/dL (1.8-2.4); PHOSPHORUS 3.9 mg/dL (2.6-4.7); POTASSIUM 3.9 mmol/L (3.5-5.1)
[2016-11-25 04:48] LABS: CALCIUM 7.2 mg/dL (8.5-10.1); CREATININE 1.8 mg/dL (0.7-1.3); GFR 37.4; MAGNESIUM 1.4 mg/dL (1.8-2.4); PHOSPHORUS 4.4 mg/dL (2.6-4.7); POTASSIUM 3.4 mmol/L (3.5-5.1)
[2016-11-25 06:00] LABS: BASE EXCESS COOX -4 mmol/L (-3-3); BODY TEMP COOX 95.3 DEG; CARBON MONOXIDE 0.3 % (0.0-1.9); CORRECTED PCO2 COOX 36 mmHg; CORRECTED PH COOX 7.37; CORRECTED PO2 COOX 114 mmHg; HCO3 COOX 21 mmol/L (21-28); METHEMOGLOBIN 0.2 % (0.0-1.9); SAT O2 COOX 98 % (92-99)
[2016-11-25] MEDS: ACETAMINOPHEN 650 MG/20.3 ML SOLUTION. NG SCH ×2 (06:00)
[2016-11-25 06:10] LABS: PCO2 COOX 39 mmHg (35-46); PH COOX 7.35 (7.35-7.45); PO2 COOX 125 mmHg (65-108)
[2016-11-25 06:11] LABS: FIO2 COOX 70
[2016-11-25 06:12] LABS: HEMOGLOBIN 11.3 g/dL (13.0-17.5); RED BLOOD COUNT 3.79 x10^6/uL (4.30-5.70); RED CELL DISTRIBUTION WIDTH 13.9 % (11.5-14.5); WHITE BLOOD COUNT 13.9 x10^3/uL (4.0-11.0)
[2016-11-25 06:20] LABS: INR 1.8 (0.8-1.1); PROTHROMBIN TIME PATIENT 19.9 SEC (11.7-14.0)
[2016-11-25 06:30] LABS: ALBUMIN 2.7 g/dL (3.4-5.0); DIRECT BILIRUBIN 0.2 mg/dL (0.0-0.2); TOTAL BILIRUBIN 0.5 mg/dL (0.2-1.0); TOTAL PROTEIN 5.5 g/dL (6.4-8.2)
--- NOTE | 2016-11-25 07:30 | RAD ---
Abdominal ultrasound, 11/24/2016: History: Abnormal liver enzymes postcode The gallbladder is within normal limits in size. It contains echogenic foci with posterior acoustic shadowing compatible with cholelithiasis. The gallbladder bautista are not thickened. The common hepatic duct is of normal caliber. The liver measures 19 cm in craniocaudad extent. The hepatic echogenicity is generally increased, most commonly due to fatty change. No hepatic mass is seen. The pancreas and central retroperitoneum including the aorta and inferior vena cava were largely obscured by overlying bowel. The spleen could not be visualized due to overlying bowel and the patient's poor mobility. A single 4.2 cm cyst is noted in the left kidney. The kidneys are otherwise unremarkable. IMPRESSION: 1. Cholelithiasis. 2. Hepatomegaly with increased hepatic echogenicity compatible with hepatic steatosis. 3. Left renal cyst.
[2016-11-25] MEDS ORDERED: ACETAMINOPHEN 650 MG SUPP.RECT. PR PRN (08:45)
[2016-11-25] MEDS ORDERED: ACETAMINOPHEN 650 MG/20.3 ML SOLUTION. NG PRN (08:45)
--- NOTE | 2016-11-25 08:48 | PDOC ---
Infectious Disease Note Vital Sign Vital Signs Vital Signs Date Time Temp Pulse Resp B/P Pulse Ox O2 Delivery O2 Flow Rate FiO2 11/25/16 07:53 100 Ventilator 11/25/16 06:00 95.3 64 24 112/57 95.3 11/24/16 09:40 15.0 Labs Lab Laboratory Tests Test 11/24/16 09:45 11/24/16 11:10 11/24/16 15:15 11/24/16 15:50 White Blood Count 18.6x10^3/uL (4.0-11.0) Red Blood Count 3.86x10^6/uL (4.30-5.70) Hemoglobin 11.7g/dL (13.0-17.5) Hematocrit 35.7% (39.0-53.0) Mean Corpuscular Volume 93fL (79-100) Mean Corpuscular Hemoglobin 30pg (25-35) Mean Corpuscular Hemoglobin Concent 33g/dL (31-37) Red Cell Distribution Width 14.1% (11.5-14.5) Platelet Count 142x10^3/uL (140-400) Neutrophils (%) (Auto) 78% (31-73) Lymphocytes (%) (Auto) 18% (24-48) Monocytes (%) (Auto) 2% (0-9) Eosinophils (%) (Auto) 2% (0-3) Basophils (%) (Auto) 0% (0-3) Neutrophils # (Auto) 14.6x10^3uL (1.8-7.7) Lymphocytes # (Auto) 3.3x10^3/uL (1.0-4.8) Monocytes # (Auto) 0.3x10^3/uL (0.0-1.1) Eosinophils # (Auto) 0.3x10^3/uL (0.0-0.7) Basophils # (Auto) 0.0x10^3/uL (0.0-0.2) Segmented Neutrophils % 56% (35-66) Band Neutrophils % 19% (0-9) Lymphocytes % 17% (24-48) Eosinophils % 5% (0-5) Metamyelocytes % 1% (0-0) Myelocytes % 2% (0-0) Platelet Estimate Adequate (ADEQUATE) [place] Cells Few Nasal Screen MRSA (PCR) Negative (Negative) Sodium Level 146mmol/L (136-145) 147mmol/L (136-145) Potassium Level 4.5mmol/L (3.5-5.1) 3.2mmol/L (3.5-5.1) Chloride Level 109mmol/L (98-107) 111mmol/L (98-107) Carbon Dioxide Level 18mmol/L (21-32) 22mmol/L (21-32) Anion Gap 19 (6-14) 14 (6-14) Blood Urea Nitrogen 27mg/dL (8-26) 29mg/dL (8-26) Creatinine 1.8mg/dL (0.7-1.3) 1.7mg/dL (0.7-1.3) Estimated GFR (Cockcroft-Gault) 37.4 39.9 Glucose Level 317mg/dL (70-99) 128mg/dL (70-99) Lactic Acid Level 10.0mmol/L (0.4-2.0) Calcium Level 7.6mg/dL (8.5-10.1) 7.7mg/dL (8.5-10.1) Phosphorus Level 8.3mg/dL (2.6-4.7) 2.5mg/dL (2.6-4.7) Magnesium Level 2.1mg/dL (1.8-2.4) 1.7mg/dL (1.8-2.4) O2 Saturation 99% (92-99) Arterial Blood pH 7.27 (7.35-7.45) Arterial Blood pCO2 at Patient Temp 38mmHg (35-46) Arterial Blood pO2 at Patient Temp 201mmHg (65-108) Arterial Blood HCO3 17mmol/L (21-28) Arterial Blood Base Excess -9mmol/L (-3-3) Oxyhemoglobin 98.1% Methemoglobin 0.2% (0.0-1.9) Carbon Monoxide, Quantitative 0.3% (0.0-1.9) FiO2 100 Clostridium difficile Toxin (PCR) Negative (Negative) Troponin I Quantitative 4.950ng/mL (0.000-0.055) Test 11/24/16 17:00 11/24/16 22:10 11/25/16 02:08 11/25/16 04:00 Stool Occult Blood Negative (NEG) White Blood Count 15.4x10^3/uL (4.0-11.0) Red Blood Count 3.98x10^6/uL (4.30-5.70) Hemoglobin 11.8g/dL (13.0-17.5) Hematocrit 36.3% (39.0-53.0) Mean Corpuscular Volume 91fL (79-100) Mean Corpuscular Hemoglobin 30pg (25-35) Mean Corpuscular Hemoglobin Concent 33g/dL (31-37) Red Cell Distribution Width 13.6% (11.5-14.5) Platelet Count 94x10^3/uL (140-400) Activated Partial Thromboplast Time > 150SEC (24-38) > 150SEC (24-38) Heparin Anti-Xa Act, Unfractionated > 1.10IU/mL (0.30-0.70) > 1.10IU/mL (0.30-0.70) Sodium Level 147mmol/L (136-145) 143mmol/L (136-145) 145mmol/L (136-145) Potassium Level 3.8mmol/L (3.5-5.1) 3.9mmol/L (3.5-5.1) 3.4mmol/L (3.5-5.1) Chloride Level 108mmol/L (98-107) 108mmol/L (98-107) 108mmol/L (98-107) Carbon Dioxide Level 25mmol/L (21-32) 22mmol/L (21-32) 20mmol/L (21-32) Anion Gap 14 (6-14) 13 (6-14) 17 (6-14) Blood Urea Nitrogen 32mg/dL (8-26) 32mg/dL (8-26) 33mg/dL (8-26) Creatinine 1.8mg/dL (0.7-1.3) 1.7mg/dL (0.7-1.3) 1.8mg/dL (0.7-1.3) Estimated GFR (Cockcroft-Gault) 37.4 39.9 37.4 Glucose Level 154mg/dL (70-99) 140mg/dL (70-99) 194mg/dL (70-99) Lactic Acid Level 3.3mmol/L (0.4-2.0) Calcium Level 7.8mg/dL (8.5-10.1) 7.3mg/dL (8.5-10.1) 7.2mg/dL (8.5-10.1) Phosphorus Level 3.4mg/dL (2.6-4.7) 3.9mg/dL (2.6-4.7) 4.4mg/dL (2.6-4.7) Magnesium Level 1.5mg/dL (1.8-2.4) 1.4mg/dL (1.8-2.4) 1.4mg/dL (1.8-2.4) Troponin I Quantitative 6.690ng/mL (0.000-0.055) 4.772ng/mL (0.000-0.055) 3.798ng/mL (0.000-0.055) Test 11/25/16 05:50 11/25/16 05:55 White Blood Count 13.9x10^3/uL (4.0-11.0) Red Blood Count 3.79x10^6/uL (4.30-5.70) Hemoglobin 11.3g/dL (13.0-17.5) Hematocrit 34.0% (39.0-53.0) Mean Corpuscular Volume 90fL (79-100) Mean Corpuscular Hemoglobin 30pg (25-35) Mean Corpuscular Hemoglobin Concent 33g/dL (31-37) Red Cell Distribution Width 13.9% (11.5-14.5) Platelet Count 96x10^3/uL (140-400) Prothrombin Time 19.9SEC (11.7-14.0) Prothromb Time International Ratio 1.8 (0.8-1.1) Lactic Acid Level 1.8mmol/L (0.4-2.0) Total Bilirubin 0.5mg/dL (0.2-1.0) Direct Bilirubin 0.2mg/dL (0.0-0.2) Aspartate Amino Transf (AST/SGOT) 316U/L (15-37) Alanine Aminotransferase (ALT/SGPT) 500U/L (16-63) Alkaline Phosphatase 76U/L (46-116) Total Protein 5.5g/dL (6.4-8.2) Albumin 2.7g/dL (3.4-5.0) Lipase 73U/L (73-393) O2 Saturation 98% (92-99) Arterial Blood pH 7.35 (7.35-7.45) Arterial Blood pH (Temp corrected) 7.37 Arterial Blood pCO2 at Patient Temp 39mmHg (35-46) Arterial Blood pCO2 (Temp correct) 36mmHg Arterial Blood pO2 at Patient Temp 125mmHg (65-108) Arterial Blood pO2 (Temp corrected) 114mmHg Arterial Blood HCO3 21mmol/L (21-28) Arterial Blood Base Excess -4mmol/L (-3-3) Methemoglobin 0.2% (0.0-1.9) Carbon Monoxide, Quantitative 0.3% (0.0-1.9) FiO2 70 Objective Assessment S/P VT/VF Cardiac arrest, on hypothermia protocol DVT suspected PE Suspected ischemic bowel Lactic acidosis Leukocytosis likely reactive Plan Plan of Care supportive care d/c vanc cont zosyn for now overall prognosis guarded DANI DIAMOND MD Nov 25, 2016 08:48
--- NOTE | 2016-11-25 09:27 | RAD ---
Portable chest, 11/25/2016: History: Post intubation Comparison is made to yesterday's study. The patient is rotated to the right. The tip of the ET tube lies approximately 3 cm above the stephanie. An NG tube extends into the stomach. The heart is enlarged. There is aortic atherosclerosis. The pulmonary vascularity is within normal limits. Minimal right basilar atelectasis has developed. There is no evidence of pleural fluid. IMPRESSION: 1. Stable tube positions. 2. Cardiomegaly. 3. Minimal right basilar atelectasis.
--- NOTE | 2016-11-25 09:28 | PDOC ---
PROGRESS NOTES Chief Complaint Chief Complaint Cardiac arrest ASSESSMENT AND PLAN; 1. Cardiac arrest: hypothermia protocol, , heparin protocol 2. Respir failure: poss 2/2 massive PE. intubated. 3. DVT: B LE. mild swelling R LE. on heparing gtt 4. CHF: systolic (EF 35-40%). new. cardiology following 5. ?[place] with CKD: creat remains stable ~1.8 6. Leukocytosis: reactive. monitor 7. Transaminitis: suspect 2/2 cardiogenic shock. await rpt labs 8. DM2: insulin gtt stopped; ISS 9. HLD: on statin 10: prophylaxis: PPI 40 min CC time Vitals Vitals Vital Signs Date Time Temp Pulse Resp B/P Pulse Ox O2 Delivery O2 Flow Rate FiO2 11/25/16 07:53 100 Ventilator 11/25/16 06:00 95.3 64 24 112/57 95.3 11/24/16 09:40 15.0 Physical Exam General: Other (intubated/sedated ) Heart: Regular rate, Other (distant heart tones) Lungs: Clear Abdomen: Normal bowel sounds, Soft (obese) Extremities: No cyanosis, Other (1+ LE edema R) Skin: No rashes, No breakdown, No significant lesion Labs LABS Laboratory Tests Test 11/24/16 09:45 11/24/16 11:10 11/24/16 15:15 11/24/16 15:50 White Blood Count 18.6x10^3/uL (4.0-11.0) Red Blood Count 3.86x10^6/uL (4.30-5.70) Hemoglobin 11.7g/dL (13.0-17.5) Hematocrit 35.7% (39.0-53.0) Mean Corpuscular Volume 93fL (79-100) Mean Corpuscular Hemoglobin 30pg (25-35) Mean Corpuscular Hemoglobin Concent 33g/dL (31-37) Red Cell Distribution Width 14.1% (11.5-14.5) Platelet Count 142x10^3/uL (140-400) Neutrophils (%) (Auto) 78% (31-73) Lymphocytes (%) (Auto) 18% (24-48) Monocytes (%) (Auto) 2% (0-9) Eosinophils (%) (Auto) 2% (0-3) Basophils (%) (Auto) 0% (0-3) Neutrophils # (Auto) 14.6x10^3uL (1.8-7.7) Lymphocytes # (Auto) 3.3x10^3/uL (1.0-4.8) Monocytes # (Auto) 0.3x10^3/uL (0.0-1.1) Eosinophils # (Auto) 0.3x10^3/uL (0.0-0.7) Basophils # (Auto) 0.0x10^3/uL (0.0-0.2) Segmented Neutrophils % 56% (35-66) Band Neutrophils % 19% (0-9) Lymphocytes % 17% (24-48) Eosinophils % 5% (0-5) Metamyelocytes % 1% (0-0) Myelocytes % 2% (0-0) Platelet Estimate Adequate (ADEQUATE) [place] Cells Few Nasal Screen MRSA (PCR) Negative (Negative) Sodium Level 146mmol/L (136-145) 147mmol/L (136-145) Potassium Level 4.5mmol/L (3.5-5.1) 3.2mmol/L (3.5-5.1) Chloride Level 109mmol/L (98-107) 111mmol/L (98-107) Carbon Dioxide Level 18mmol/L (21-32) 22mmol/L (21-32) Anion Gap 19 (6-14) 14 (6-14) Blood Urea Nitrogen 27mg/dL (8-26) 29mg/dL (8-26) Creatinine 1.8mg/dL (0.7-1.3) 1.7mg/dL (0.7-1.3) Estimated GFR (Cockcroft-Gault) 37.4 39.9 Glucose Level 317mg/dL (70-99) 128mg/dL (70-99) Lactic Acid Level 10.0mmol/L (0.4-2.0) Calcium Level 7.6mg/dL (8.5-10.1) 7.7mg/dL (8.5-10.1) Phosphorus Level 8.3mg/dL (2.6-4.7) 2.5mg/dL (2.6-4.7) Magnesium Level 2.1mg/dL (1.8-2.4) 1.7mg/dL (1.8-2.4) O2 Saturation 99% (92-99) Arterial Blood pH 7.27 (7.35-7.45) Arterial Blood pCO2 at Patient Temp 38mmHg (35-46) Arterial Blood pO2 at Patient Temp 201mmHg (65-108) Arterial Blood HCO3 17mmol/L (21-28) Arterial Blood Base Excess -9mmol/L (-3-3) Oxyhemoglobin 98.1% Methemoglobin 0.2% (0.0-1.9) Carbon Monoxide, Quantitative 0.3% (0.0-1.9) FiO2 100 Clostridium difficile Toxin (PCR) Negative (Negative) Troponin I Quantitative 4.950ng/mL (0.000-0.055) Test 11/24/16 17:00 11/24/16 22:10 11/25/16 02:08 11/25/16 04:00 Stool Occult Blood Negative (NEG) White Blood Count 15.4x10^3/uL (4.0-11.0) Red Blood Count 3.98x10^6/uL (4.30-5.70) Hemoglobin 11.8g/dL (13.0-17.5) Hematocrit 36.3% (39.0-53.0) Mean Corpuscular Volume 91fL (79-100) Mean Corpuscular Hemoglobin 30pg (25-35) Mean Corpuscular Hemoglobin Concent 33g/dL (31-37) Red Cell Distribution Width 13.6% (11.5-14.5) Platelet Count 94x10^3/uL (140-400) Activated Partial Thromboplast Time > 150SEC (24-38) > 150SEC (24-38) Heparin Anti-Xa Act, Unfractionated > 1.10IU/mL (0.30-0.70) > 1.10IU/mL (0.30-0.70) Sodium Level 147mmol/L (136-145) 143mmol/L (136-145) 145mmol/L (136-145) Potassium Level 3.8mmol/L (3.5-5.1) 3.9mmol/L (3.5-5.1) 3.4mmol/L (3.5-5.1) Chloride Level 108mmol/L (98-107) 108mmol/L (98-107) 108mmol/L (98-107) Carbon Dioxide Level 25mmol/L (21-32) 22mmol/L (21-32) 20mmol/L (21-32) Anion Gap 14 (6-14) 13 (6-14) 17 (6-14) Blood Urea Nitrogen 32mg/dL (8-26) 32mg/dL (8-26) 33mg/dL (8-26) Creatinine 1.8mg/dL (0.7-1.3) 1.7mg/dL (0.7-1.3) 1.8mg/dL (0.7-1.3) Estimated GFR (Cockcroft-Gault) 37.4 39.9 37.4 Glucose Level 154mg/dL (70-99) 140mg/dL (70-99) 194mg/dL (70-99) Lactic Acid Level 3.3mmol/L (0.4-2.0) Calcium Level 7.8mg/dL (8.5-10.1) 7.3mg/dL (8.5-10.1) 7.2mg/dL (8.5-10.1) Phosphorus Level 3.4mg/dL (2.6-4.7) 3.9mg/dL (2.6-4.7) 4.4mg/dL (2.6-4.7) Magnesium Level 1.5mg/dL (1.8-2.4) 1.4mg/dL (1.8-2.4) 1.4mg/dL (1.8-2.4) Troponin I Quantitative 6.690ng/mL (0.000-0.055) 4.772ng/mL (0.000-0.055) 3.798ng/mL (0.000-0.055) Test 11/25/16 05:50 11/25/16 05:55 White Blood Count 13.9x10^3/uL (4.0-11.0) Red Blood Count 3.79x10^6/uL (4.30-5.70) Hemoglobin 11.3g/dL (13.0-17.5) Hematocrit 34.0% (39.0-53.0) Mean Corpuscular Volume 90fL (79-100) Mean Corpuscular Hemoglobin 30pg (25-35) Mean Corpuscular Hemoglobin Concent 33g/dL (31-37) Red Cell Distribution Width 13.9% (11.5-14.5) Platelet Count 96x10^3/uL (140-400) Prothrombin Time 19.9SEC (11.7-14.0) Prothromb Time International Ratio 1.8 (0.8-1.1) Lactic Acid Level 1.8mmol/L (0.4-2.0) Total Bilirubin 0.5mg/dL (0.2-1.0) Direct Bilirubin 0.2mg/dL (0.0-0.2) Aspartate Amino Transf (AST/SGOT) 316U/L (15-37) Alanine Aminotransferase (ALT/SGPT) 500U/L (16-63) Alkaline Phosphatase 76U/L (46-116) Total Protein 5.5g/dL (6.4-8.2) Albumin 2.7g/dL (3.4-5.0) Lipase 73U/L (73-393) O2 Saturation 98% (92-99) Arterial Blood pH 7.35 (7.35-7.45) Arterial Blood pH (Temp corrected) 7.37 Arterial Blood pCO2 at Patient Temp 39mmHg (35-46) Arterial Blood pCO2 (Temp correct) 36mmHg Arterial Blood pO2 at Patient Temp 125mmHg (65-108) Arterial Blood pO2 (Temp corrected) 114mmHg Arterial Blood HCO3 21mmol/L (21-28) Arterial Blood Base Excess -4mmol/L (-3-3) Methemoglobin 0.2% (0.0-1.9) Carbon Monoxide, Quantitative 0.3% (0.0-1.9) FiO2 70 Review of Systems Review of Systems intubated, sedated DAHLIA PETERSON MD Nov 25, 2016 09:28
[2016-11-25] MEDS ORDERED: IV NORMAL SALINE 500ML BAG 500 ML IV PRN (09:45)
[2016-11-25] MEDS ORDERED: MAGNESIUM SULFATE 2GM 50 ML IV PRN (09:45)
[2016-11-25] MEDS ORDERED: VANCOMYCIN 1.5 GM in IV NORMAL SALINE 500ML BAG 500 ML IV SCH ×4 (10:00)
--- NOTE | 2016-11-25 10:04 | PDOC2 ---
CONSULT Date of Consult Date of Consult DATE: 11/25/16 TIME: 09:52 Reason for Consult Reason for Consult: [place] vs CKD Referring Physician Referring Physician: Dr Salcedo Identification/Chief Complaint Chief Complaint S/p Code Problems: Source Source: Chart review History of Present Illness Reason for Visit: as dictated Past Medical History Cardiovascular: HTN, Hyperlipidemia Pulmonary: No pertinent hx CENTRAL NERVOUS SYSTEM: Other (no pertinent hx ) GI: No pertinent hx Heme/Onc: No pertinent hx Hepatobiliary: No pertinent hx Psych: No pertinent hx Musculoskeletal: Osteoarthritis Rheumatologic: No pertinent hx Infectious disease: No pertinent hx ENT: No pertinent hx Renal/: Other (kidney stones ) Endocrine: Diabetes Dermatology: No pertinent hx Past Surgical History Past Surgical History: Other Family History Family History: Family History Unknown Social History No ALCOHOL: none Drugs: None Lives: with Family Current Problem List Problem List Problems Medical Problems: (1) Cardiac arrest Status: Acute Current Medications Current Medications Current Medications Sodium Chloride 1,000 ml @ 1,000 mls/hr Q1H IV Last administered on 11/24/16 06:50; Start 11/24/16 at 06:50; Stop 11/24/16 at 07:49; Status DC Epinephrine HCl/ Sodium Chloride (Adrenalin/Iv Sodium Chloride 0.9% 250ml) 254 ml @ 0 mls/hr CONT PRN IV SEE I/O RECORD Last administered on 11/24/16 07:39; Start 11/24/16 at 07:30 Insulin Aspart (Novolog) 0-7 UNITS TIDWMEALS SQ ; Start 11/24/16 at 08:00; Stop 11/24/16 at 15:36; Status DC Dextrose 12.5 gm 12.5 gm PRN Q15MIN PRN IV SEE COMMENTS; Start 11/24/16 at 07: 45 Sodium Chloride (Iv Sodium Chloride 0.9% 1000ml Bag) 1,000 ml @ 125 mls/hr 1X ONCE IV Last administered on 11/24/16 07:52; Start 11/24/16 at 08:00; Stop at 08:20; Status DC Vancomycin HCl (Vanco Per Pharmacy) 1 each PRN DAILY PRN MC SEE COMMENTS Last administered on 11/24/16 11:26; Start 11/24/16 at 08:15; Stop 11/24/16 at 13:06 ; Status DC Piperacillin Sod/ Tazobactam Sod 1 each 1 each PRN DAILY PRN MC SEE COMMENTS; Start 11/24/16 at 08:15; Stop 11/24/16 at 13:06; Status DC Sodium Bicarbonate 50 meq/Sodium Chloride 1,050 ml @ 125 mls/hr Q8H24M IV Last administered on 11/25/16 01:22; Start 11/24/16 at 08:30 Vancomycin HCl 2 gm/Sodium Chloride 500 ml @ 250 mls/hr ONCE ONCE IV Last administered on 11/24/16 10:15; Start 11/24/16 at 08:30; Stop 11/24/16 at 10:29 ; Status DC Piperacillin Sod/ Tazobactam Sod 4.5 gm/Sodium Chloride 100 ml @ 200 mls/hr Q6HRS IV Last administered on 11/24/16 10:10; Start 11/24/16 at 08:30; Stop at 11:15; Status DC Sodium Chloride (Iv Sodium Chloride 0.9% 1000ml Bag) 1,000 ml @ 1,000 mls/hr Q1H IV Last administered on 11/24/16 10:09; Start 11/24/16 at 08:39; Stop at 11:47; Status DC Fentanyl Citrate (Fentanyl 2ml Vial) 25 mcg PRN Q30MIN PRN IV SED; Start at 08:45 Lorazepam 1 mg 1 mg PRN Q30MIN PRN IV SEDATION; Start 11/24/16 at 08:45 Fentanyl Citrate 30 ml @ 2.5 mls/hr CONT PRN PRN IV IVF Last administered on 00:20; Start 11/24/16 at 08:45 Propofol (Diprivan) 100 ml @ 0 mls/hr CONT PRN IV SEE I/O RECORD Last administered on 11/25/16 06:00; Start 11/24/16 at 08:45 Vecuronium [place] (Norcuron Bolus) 9 mg PRN Q30MIN PRN IV SHIVERING Last administered on 11/24/16 17:38; Start 11/24/16 at 08:45 Meperidine HCl (Demerol) 12.5 mg PRN Q30MIN PRN IV SHIVERING Last administered on 11/24/16 22:21; Start 11/24/16 at 08:45; Stop 11/24/16 at 22:21; Status DC Multi-Ingred Cream/Lotion/Oil/ Oint (Artificial Tears Eye Oint) 1 radha PRN Q6HRS PRN OU 0.5 INCH FOR DRY EYE; Start 11/24/16 at 08:45 Famotidine (Pepcid) 20 mg QHS IVP Last administered on 11/24/16 22:21; Start 11/24/16 at 21:00 Aspirin (Aspirin) 300 mg DAILY [place] Last administered on 11/24/16 10:15; Start 11/24/16 at 09:00 Sodium Chloride (Normal Saline Flush) 3 ml QSHIFT PRN IV AFTER MEDS AND BLOOD DRAWS; Start 11/24/16 at 08:45 Acetaminophen (Tylenol) 650 mg Q6HRS NG ; Start 11/24/16 at 12:00; Stop at 11:59 Acetaminophen (Tylenol) 650 mg PRN Q6HRS PRN [place] MILD PAIN / TEMP; Start at 08:45 Acetaminophen (Tylenol) 650 mg PRN Q6HRS PRN NG MILD PAIN / TEMP; Start at 08:45 Info 1 ea 1 ea DAILY PRN MC PER PROTOCOL; Start 11/26/16 at 08:45 Insulin Human Regular 150 unit/ Sodium Chloride 151.5 ml @ 9.16 mls/hr CONT PRN IV SEE I/O RECORD Last administered on 11/24/16 10:13; Start 11/24/16 at 09 :30 Piperacillin Sod/ Tazobactam Sod 3.375 gm/Sodium Chloride 50 ml @ 100 mls/hr Q6HRS IV ; Start 11/24/16 at 18:00; Stop 11/24/16 at 18:00; Status DC Vancomycin HCl/ Sodium Chloride (Iv Sodium Chloride 0.9% 500ml Bag) 500 ml @ 250 mls/hr Q24H IV ; Start 11/25/16 at 10:00; Stop 11/25/16 at 10:00; Status DC Vancomycin HCl 1 each 1 each 1X ONCE MC ; Start 11/26/16 at 09:30; Stop at 09:30; Status DC Sodium Chloride (Iv Sodium Chloride 0.9% 1000ml Bag) 1,000 ml @ 1,000 mls/hr 1X ONCE IV Last administered on 11/24/16 11:00; Start 11/24/16 at 11:00; Stop 11/24/16 at 11:59; Status DC Insulin Detemir (Levemir) 12 units QHS SQ ; Start 11/24/16 at 21:00; Stop at 21:00; Status DC Insulin Aspart (Novolog) 10 units 1X ONCE SQ ; Start 11/24/16 at 15:30; Stop at 20:10; Status DC Insulin Aspart (Novolog) 0-7 UNITS Q4HRS SQ ; Start 11/24/16 at 16:00; Stop at 20:10; Status DC Heparin Sodium (Porcine) 8100 unit 8,100 unit 1X ONCE IV Last administered on 11/24/16 17:24; Start 11/24/16 at 17:00; Stop 11/24/16 at 17:01; Status DC Heparin Sodium/ Dextrose 500 ml @ 0 mls/hr CONT PRN IV SEE I/O RECORD Last administered on 11/25/16 01:43; Start 11/24/16 at 16:45 Heparin Sodium (Porcine) 3,000 unit PRN Q6HRS PRN IV FOR UFH LEVEL LESS THAN 0.2; Start 11/24/16 at 16:45 Heparin Sodium (Porcine) 1,500 unit PRN Q6HRS PRN IV FOR UFH LEVEL 0.2 - 0.29; Start 11/24/16 at 16:45 Info 1 each 1 each PRN DAILY PRN MC SEE COMMENTS; Start 11/24/16 at 17:00 Piperacillin Sod/ Tazobactam Sod 3.375 gm/Sodium Chloride 50 ml @ 100 mls/hr Q6HRS IV Last administered on 11/25/16 05:56; Start 11/25/16 at 00:00 Vancomycin HCl/ Sodium Chloride (Iv Sodium Chloride 0.9% 250ml) 250 ml @ 250 mls/hr 1X ONCE IV ; Start 11/24/16 at 21:30; Stop 11/24/16 at 22:29; Status UNV Vancomycin HCl 1 each 1 each PRN DAILY PRN MC SEE COMMENTS Last administered on 3/21/17at 03:30; Start 11/25/16 at 01:00; Stop 11/25/16 at 08:57; Status DC Vancomycin HCl/ Sodium Chloride (Iv Sodium Chloride 0.9% 500ml Bag) 500 ml @ 250 mls/hr Q24H IV ; Start 11/25/16 at 10:00; Stop 11/25/16 at 10:00; Status DC Vancomycin HCl 1 each 1X ONCE MC ; Start 11/26/16 at 09:30; Stop 11/26/16 at 09 :30; Status DC Enoxaparin Sodium (Lovenox Per Pharmacy Prophylaxis Dosing) 1 each PRN DAILY PRN MC SEE COMMENTS; Start 11/25/16 at 08:45; Status UNV Chlorhexidine Gluconate (Peridex) 15 ml BID MM ; Start 11/25/16 at 21:00 Allergies Allergies: Coded Allergies: No Known Drug Allergies (Unverified , 11/24/16) ROS Review of System Unable to obtain due to sedated and intubated state Physical Exam Physical Exam General Appearance: Sedated and intubated on the Vent In no Distress Eyes: VIsion Unchanged Conjunctiva Normal EN: No EN Drainage Mucous Memb. moist Neck: no JVD min JVP Supple no Thyromegaly CVS: S1 S2 no audible Murmur No Gallop No Rub no Edema Resp: no Rales no Rhonchi no Acc. Muscle use GI: BS +ve NO Bruit Non Tender Non Distended : no CVA tenderness; no Suprapubic Tenderness SKIN: no Rashes Breast Exam deferred Mu.Sk: Adequate passive ROM no Muscle Atrophy Heme: Unable to palpate Obvious LAD no palp Splenomegaly NEURO: Unable to assess while sedated and intubated Psych: Unable to assess while sedated and intubated Vital Signs Vital Signs Date Time Temp Pulse Resp B/P Pulse Ox O2 Delivery O2 Flow Rate FiO2 11/25/16 09:23 100 Ventilator 11/25/16 09:00 55 24 103/52 11/25/16 06:00 95.3 95.3 11/24/16 09:40 15.0 Assessment & Plan [place]/ vs CKD - cannot R/o ATN from Code Blue. Current FLuid and E-lyte status does not necessitate emergent need for Dialysis. Will re-evaluate for Dialysis in am, check CK Low K - on replacement per ICU Elyte Protocol Mild WAG Met ACidosis - Lactic was ^ed and now has resolved. Low Mag - on replacement protocol Marginal BP and UO - check and correct CVP Discussed Plan of Care and prognosis etc. at length with family. Labs Labs Laboratory Tests Test 11/24/16 06:50 11/24/16 07:15 11/24/16 07:17 11/24/16 07:45 O2 Saturation 98% (92-99) Arterial Blood pH 6.93 (7.35-7.45) Arterial Blood pCO2 at Patient Temp 57mmHg (35-46) Arterial Blood pO2 at Patient Temp 221mmHg (65-108) Arterial Blood HCO3 12mmol/L (21-28) Arterial Blood Base Excess -21mmol/L (-3-3) FiO2 100 White Blood Count 10.5x10^3/uL (4.0-11.0) Red Blood Count 3.56x10^6/uL (4.30-5.70) Hemoglobin 10.6g/dL (13.0-17.5) Hematocrit 34.0% (39.0-53.0) Mean Corpuscular Volume 96fL (79-100) Mean Corpuscular Hemoglobin 30pg (25-35) Mean Corpuscular Hemoglobin Concent 31g/dL (31-37) Red Cell Distribution Width 14.0% (11.5-14.5) Platelet Count 72x10^3/uL (140-400) Neutrophils (%) (Auto) 43% (31-73) Lymphocytes (%) (Auto) 48% (24-48) Monocytes (%) (Auto) 6% (0-9) Eosinophils (%) (Auto) 3% (0-3) Basophils (%) (Auto) 1% (0-3) Neutrophils # (Auto) 4.5x10^3uL (1.8-7.7) Lymphocytes # (Auto) 5.0x10^3/uL (1.0-4.8) Monocytes # (Auto) 0.6x10^3/uL (0.0-1.1) Eosinophils # (Auto) 0.3x10^3/uL (0.0-0.7) Basophils # (Auto) 0.1x10^3/uL (0.0-0.2) Sodium Level 156mmol/L (136-145) Potassium Level 3.6mmol/L (3.5-5.1) Chloride Level 113mmol/L (98-107) Carbon Dioxide Level 21mmol/L (21-32) Anion Gap 22 (6-14) 30mmol/L (6-14) Blood Urea Nitrogen 22mg/dL (8-26) Creatinine 1.6mg/dL (0.7-1.3) Estimated GFR (Cockcroft-Gault) 42.8 Glucose Level 364mg/dL (70-99) 400mg/dL (70-99) Lactic Acid Level 20.3mmol/L (0.4-2.0) Calcium Level 8.1mg/dL (8.5-10.1) Magnesium Level 2.1mg/dL (1.8-2.4) Total Bilirubin 0.2mg/dL (0.2-1.0) Direct Bilirubin 0.1mg/dL (0.0-0.2) Aspartate Amino Transf (AST/SGOT) 261U/L (15-37) Alanine Aminotransferase (ALT/SGPT) 378U/L (16-63) Alkaline Phosphatase 61U/L (46-116) Bedside Troponin I 0.12ng/ml (<0.08) Troponin I Quantitative 0.132ng/mL (0.000-0.055) EQ-Rgm-Y-Type Natriuretic Peptide 79pg/mL (0-124) Total Protein 4.9g/dL (6.4-8.2) Albumin 2.4g/dL (3.4-5.0) Triglycerides Level 174mg/dL (0-150) Cholesterol Level 79mg/dL (0-200) LDL Cholesterol, Calculated 18mg/dL (0-100) VLDL Cholesterol, Calculated 35mg/dL (0-40) HDL Cholesterol 26mg/dL (40-60) Cholesterol/HDL Ratio 3.0 Lipase 158U/L (73-393) Bedside Hemoglobin 10.2g/dL (14-18) Bedside Hematocrit 30% (37-52) Bedside Sodium 147mmol/L (135-145) Bedside Potassium 4.3mmol/L (3.5-5.0) Bedside Chloride 110mmol/L (98-110) Bedside Total CO2 12mmol/L (23-32) Bedside Blood Urea Nitrogen 22mg/dL (8-26) Bedside Creatinine 1.4mg/dL (0.5-1.4) Bedside Ionized Calcium ([place]) 1.02mmol/L (1.13-1.32) Urine Collection Type Unknown Urine Color Yellow Urine Clarity Clear Urine pH 5.0 Urine Specific [place] 1.020 Urine Protein 30mg/dL (NEG-TRACE) Urine Glucose (UA) Negativemg/dL (NEG) Urine Ketones (Stick) Negativemg/dL (NEG) Urine Blood Small (NEG) Urine Nitrite Negative (NEG) Urine Bilirubin Negative (NEG) Urine Urobilinogen Dipstick 0.2mg/dL (0.2 mg/dL) Urine Leukocyte Esterase Negative (NEG) Urine RBC 6-10/HPF (0-2) Urine WBC Occ/HPF (0-4) Urine Squamous Epithelial Cells Occ/LPF Urine Amorphous Sediment Present/HPF Urine Bacteria Few/HPF (0-FEW) Urine Mucus Marked/LPF Urine Opiates Screen Neg (NEG) Urine Methadone Screen Neg (NEG) Urine Barbiturates Neg (NEG) Urine Phencyclidine Screen Neg (NEG) Urine Amphetamine/Methamphetamine Neg (NEG) Urine Benzodiazepines Screen Neg (NEG) Urine Cocaine Screen Neg (NEG) Urine Cannabinoids Screen Neg (NEG) Urine Ethyl Alcohol Neg (NEG) Test 11/24/16 09:45 11/24/16 11:10 11/24/16 15:15 11/24/16 15:50 White Blood Count 18.6x10^3/uL (4.0-11.0) Red Blood Count 3.86x10^6/uL (4.30-5.70) Hemoglobin 11.7g/dL (13.0-17.5) Hematocrit 35.7% (39.0-53.0) Mean Corpuscular Volume 93fL (79-100) Mean Corpuscular Hemoglobin 30pg (25-35) Mean Corpuscular Hemoglobin Concent 33g/dL (31-37) Red Cell Distribution Width 14.1% (11.5-14.5) Platelet Count 142x10^3/uL (140-400) Neutrophils (%) (Auto) 78% (31-73) Lymphocytes (%) (Auto) 18% (24-48) Monocytes (%) (Auto) 2% (0-9) Eosinophils (%) (Auto) 2% (0-3) Basophils (%) (Auto) 0% (0-3) Neutrophils # (Auto) 14.6x10^3uL (1.8-7.7) Lymphocytes # (Auto) 3.3x10^3/uL (1.0-4.8) Monocytes # (Auto) 0.3x10^3/uL (0.0-1.1) Eosinophils # (Auto) 0.3x10^3/uL (0.0-0.7) Basophils # (Auto) 0.0x10^3/uL (0.0-0.2) Segmented Neutrophils % 56% (35-66) Band Neutrophils % 19% (0-9) Lymphocytes % 17% (24-48) Eosinophils % 5% (0-5) Metamyelocytes % 1% (0-0) Myelocytes % 2% (0-0) Platelet Estimate Adequate (ADEQUATE) [place] Few Nasal Screen MRSA (PCR) Negative (Negative) Sodium Level 146mmol/L (136-145) 147mmol/L (136-145) Potassium Level 4.5mmol/L (3.5-5.1) 3.2mmol/L (3.5-5.1) Chloride Level 109mmol/L (98-107) 111mmol/L (98-107) Carbon Dioxide Level 18mmol/L (21-32) 22mmol/L (21-32) Anion Gap 19 (6-14) 14 (6-14) Blood Urea Nitrogen 27mg/dL (8-26) 29mg/dL (8-26) Creatinine 1.8mg/dL (0.7-1.3) 1.7mg/dL (0.7-1.3) Estimated GFR (Cockcroft-Gault) 37.4 39.9 Glucose Level 317mg/dL (70-99) 128mg/dL (70-99) Lactic Acid Level 10.0mmol/L (0.4-2.0) Calcium Level 7.6mg/dL (8.5-10.1) 7.7mg/dL (8.5-10.1) Phosphorus Level 8.3mg/dL (2.6-4.7) 2.5mg/dL (2.6-4.7) Magnesium Level 2.1mg/dL (1.8-2.4) 1.7mg/dL (1.8-2.4) O2 Saturation 99% (92-99) Arterial Blood pH 7.27 (7.35-7.45) Arterial Blood pCO2 at Patient Temp 38mmHg (35-46) Arterial Blood pO2 at Patient Temp 201mmHg (65-108) Arterial Blood HCO3 17mmol/L (21-28) Arterial Blood Base Excess -9mmol/L (-3-3) Oxyhemoglobin 98.1% Methemoglobin 0.2% (0.0-1.9) Carbon Monoxide, Quantitative 0.3% (0.0-1.9) FiO2 100 Clostridium difficile Toxin (PCR) Negative (Negative) Troponin I Quantitative 4.950ng/mL (0.000-0.055) Test 11/24/16 17:00 11/24/16 22:10 11/25/16 02:08 11/25/16 04:00 Stool Occult Blood Negative (NEG) White Blood Count 15.4x10^3/uL (4.0-11.0) Red Blood Count 3.98x10^6/uL (4.30-5.70) Hemoglobin 11.8g/dL (13.0-17.5) Hematocrit 36.3% (39.0-53.0) Mean Corpuscular Volume 91fL (79-100) Mean Corpuscular Hemoglobin 30pg (25-35) Mean Corpuscular Hemoglobin Concent 33g/dL (31-37) Red Cell Distribution Width 13.6% (11.5-14.5) Platelet Count 94x10^3/uL (140-400) Activated Partial Thromboplast Time > 150SEC (24-38) > 150SEC (24-38) Heparin Anti-Xa Act, Unfractionated > 1.10IU/mL (0.30-0.70) > 1.10IU/mL (0.30-0.70) Sodium Level 147mmol/L (136-145) 143mmol/L (136-145) 145mmol/L (136-145) Potassium Level 3.8mmol/L (3.5-5.1) 3.9mmol/L (3.5-5.1) 3.4mmol/L (3.5-5.1) Chloride Level 108mmol/L (98-107) 108mmol/L (98-107) 108mmol/L (98-107) Carbon Dioxide Level 25mmol/L (21-32) 22mmol/L (21-32) 20mmol/L (21-32) Anion Gap 14 (6-14) 13 (6-14) 17 (6-14) Blood Urea Nitrogen 32mg/dL (8-26) 32mg/dL (8-26) 33mg/dL (8-26) Creatinine 1.8mg/dL (0.7-1.3) 1.7mg/dL (0.7-1.3) 1.8mg/dL (0.7-1.3) Estimated GFR (Cockcroft-Gault) 37.4 39.9 37.4 Glucose Level 154mg/dL (70-99) 140mg/dL (70-99) 194mg/dL (70-99) Lactic Acid Level 3.3mmol/L (0.4-2.0) Calcium Level 7.8mg/dL (8.5-10.1) 7.3mg/dL (8.5-10.1) 7.2mg/dL (8.5-10.1) Phosphorus Level 3.4mg/dL (2.6-4.7) 3.9mg/dL (2.6-4.7) 4.4mg/dL (2.6-4.7) Magnesium Level 1.5mg/dL (1.8-2.4) 1.4mg/dL (1.8-2.4) 1.4mg/dL (1.8-2.4) Troponin I Quantitative 6.690ng/mL (0.000-0.055) 4.772ng/mL (0.000-0.055) 3.798ng/mL (0.000-0.055) Test 11/25/16 05:50 11/25/16 05:55 White Blood Count 13.9x10^3/uL (4.0-11.0) Red Blood Count 3.79x10^6/uL (4.30-5.70) Hemoglobin 11.3g/dL (13.0-17.5) Hematocrit 34.0% (39.0-53.0) Mean Corpuscular Volume 90fL (79-100) Mean Corpuscular Hemoglobin 30pg (25-35) Mean Corpuscular Hemoglobin Concent 33g/dL (31-37) Red Cell Distribution Width 13.9% (11.5-14.5) Platelet Count 96x10^3/uL (140-400) Prothrombin Time 19.9SEC (11.7-14.0) Prothromb Time International Ratio 1.8 (0.8-1.1) Lactic Acid Level 1.8mmol/L (0.4-2.0) Total Bilirubin 0.5mg/dL (0.2-1.0) Direct Bilirubin 0.2mg/dL (0.0-0.2) Aspartate Amino Transf (AST/SGOT) 316U/L (15-37) Alanine Aminotransferase (ALT/SGPT) 500U/L (16-63) Alkaline Phosphatase 76U/L (46-116) Total Protein 5.5g/dL (6.4-8.2) Albumin 2.7g/dL (3.4-5.0) Lipase 73U/L (73-393) O2 Saturation 98% (92-99) Arterial Blood pH 7.35 (7.35-7.45) Arterial Blood pH (Temp corrected) 7.37 Arterial Blood pCO2 at Patient Temp 39mmHg (35-46) Arterial Blood pCO2 (Temp correct) 36mmHg Arterial Blood pO2 at Patient Temp 125mmHg (65-108) Arterial Blood pO2 (Temp corrected) 114mmHg Arterial Blood HCO3 21mmol/L (21-28) Arterial Blood Base Excess -4mmol/L (-3-3) Methemoglobin 0.2% (0.0-1.9) Carbon Monoxide, Quantitative 0.3% (0.0-1.9) FiO2 70 Laboratory Tests Test 11/24/16 11:10 11/24/16 15:15 11/24/16 15:50 11/24/16 17:00 O2 Saturation 99% (92-99) Arterial Blood pH 7.27 (7.35-7.45) Arterial Blood pCO2 at Patient Temp 38mmHg (35-46) Arterial Blood pO2 at Patient Temp 201mmHg (65-108) Arterial Blood HCO3 17mmol/L (21-28) Arterial Blood Base Excess -9mmol/L (-3-3) Oxyhemoglobin 98.1% Methemoglobin 0.2% (0.0-1.9) Carbon Monoxide, Quantitative 0.3% (0.0-1.9) FiO2 100 Clostridium difficile Toxin (PCR) Negative (Negative) Sodium Level 147mmol/L (136-145) Potassium Level 3.2mmol/L (3.5-5.1) Chloride Level 111mmol/L (98-107) Carbon Dioxide Level 22mmol/L (21-32) Anion Gap 14 (6-14) Blood Urea Nitrogen 29mg/dL (8-26) Creatinine 1.7mg/dL (0.7-1.3) Estimated GFR (Cockcroft-Gault) 39.9 Glucose Level 128mg/dL (70-99) Calcium Level 7.7mg/dL (8.5-10.1) Phosphorus Level 2.5mg/dL (2.6-4.7) Magnesium Level 1.7mg/dL (1.8-2.4) Troponin I Quantitative 4.950ng/mL (0.000-0.055) Stool Occult Blood Negative (NEG) Test 11/24/16 22:10 11/25/16 02:08 11/25/16 04:00 11/25/16 05:50 White Blood Count 15.4x10^3/uL (4.0-11.0) 13.9x10^3/uL (4.0-11.0) Red Blood Count 3.98x10^6/uL (4.30-5.70) 3.79x10^6/uL (4.30-5.70) Hemoglobin 11.8g/dL (13.0-17.5) 11.3g/dL (13.0-17.5) Hematocrit 36.3% (39.0-53.0) 34.0% (39.0-53.0) Mean Corpuscular Volume 91fL (79-100) 90fL (79-100) Mean Corpuscular Hemoglobin 30pg (25-35) 30pg (25-35) Mean Corpuscular Hemoglobin Concent 33g/dL (31-37) 33g/dL (31-37) Red Cell Distribution Width 13.6% (11.5-14.5) 13.9% (11.5-14.5) Platelet Count 94x10^3/uL (140-400) 96x10^3/uL (140-400) Activated Partial Thromboplast Time > 150SEC (24-38) > 150SEC (24-38) Heparin Anti-Xa Act, Unfractionated > 1.10IU/mL (0.30-0.70) > 1.10IU/mL (0.30-0.70) Sodium Level 147mmol/L (136-145) 143mmol/L (136-145) 145mmol/L (136-145) Potassium Level 3.8mmol/L (3.5-5.1) 3.9mmol/L (3.5-5.1) 3.4mmol/L (3.5-5.1) Chloride Level 108mmol/L (98-107) 108mmol/L (98-107) 108mmol/L (98-107) Carbon Dioxide Level 25mmol/L (21-32) 22mmol/L (21-32) 20mmol/L (21-32) Anion Gap 14 (6-14) 13 (6-14) 17 (6-14) Blood Urea Nitrogen 32mg/dL (8-26) 32mg/dL (8-26) 33mg/dL (8-26) Creatinine 1.8mg/dL (0.7-1.3) 1.7mg/dL (0.7-1.3) 1.8mg/dL (0.7-1.3) Estimated GFR (Cockcroft-Gault) 37.4 39.9 37.4 Glucose Level 154mg/dL (70-99) 140mg/dL (70-99) 194mg/dL (70-99) Lactic Acid Level 3.3mmol/L (0.4-2.0) 1.8mmol/L (0.4-2.0) Calcium Level 7.8mg/dL (8.5-10.1) 7.3mg/dL (8.5-10.1) 7.2mg/dL (8.5-10.1) Phosphorus Level 3.4mg/dL (2.6-4.7) 3.9mg/dL (2.6-4.7) 4.4mg/dL (2.6-4.7) Magnesium Level 1.5mg/dL (1.8-2.4) 1.4mg/dL (1.8-2.4) 1.4mg/dL (1.8-2.4) Troponin I Quantitative 6.690ng/mL (0.000-0.055) 4.772ng/mL (0.000-0.055) 3.798ng/mL (0.000-0.055) Prothrombin Time 19.9SEC (11.7-14.0) Prothromb Time International Ratio 1.8 (0.8-1.1) Total Bilirubin 0.5mg/dL (0.2-1.0) Direct Bilirubin 0.2mg/dL (0.0-0.2) Aspartate Amino Transf (AST/SGOT) 316U/L (15-37) Alanine Aminotransferase (ALT/SGPT) 500U/L (16-63) Alkaline Phosphatase 76U/L (46-116) Total Protein 5.5g/dL (6.4-8.2) Albumin 2.7g/dL (3.4-5.0) Lipase 73U/L (73-393) Test 11/25/16 05:55 O2 Saturation 98% (92-99) Arterial Blood pH 7.35 (7.35-7.45) Arterial Blood pH (Temp corrected) 7.37 Arterial Blood pCO2 at Patient Temp 39mmHg (35-46) Arterial Blood pCO2 (Temp correct) 36mmHg Arterial Blood pO2 at Patient Temp 125mmHg (65-108) Arterial Blood pO2 (Temp corrected) 114mmHg Arterial Blood HCO3 21mmol/L (21-28) Arterial Blood Base Excess -4mmol/L (-3-3) Methemoglobin 0.2% (0.0-1.9) Carbon Monoxide, Quantitative 0.3% (0.0-1.9) FiO2 70 Images Images Abdominal ultrasound, 11/24/2016: History: Abnormal liver enzymes postcode The gallbladder is within normal limits in size. It contains echogenic foci with posterior acoustic shadowing compatible with cholelithiasis. The gallbladder bautista are not thickened. The common hepatic duct is of normal caliber. The liver measures 19 cm in craniocaudad extent. The hepatic echogenicity is generally increased, most commonly due to fatty change. No hepatic mass is seen. The pancreas and central retroperitoneum including the aorta and inferior vena cava were largely obscured by overlying bowel. The spleen could not be visualized due to overlying bowel and the patient's poor mobility. A single 4.2 cm cyst is noted in the left kidney. The kidneys are otherwise unremarkable. IMPRESSION: 1. Cholelithiasis. 2. Hepatomegaly with increased hepatic echogenicity compatible with hepatic steatosis. 3. Left renal cyst. ASHLEY DIAMOND MD Nov 25, 2016 10:04
--- NOTE | 2016-11-25 10:23 | RAD ---
APPROVED REPORT Bilateral Lower Extremity Venous Study for DVT Patient Location: IN-PATIENT Indications Lower Extremity Edema: Left Findings Castañeda scale images of the bilateral lower extremity deep venous structures reveals evidence of noncomp ressibility in different segments throughout the venous tree. On the right the distal superficial femoral vein and popliteal veins appear to be noncompressible. Th e below-knee veins are not well visualized. Spectral waveforms and color Doppler reveals less than op timal flow patterns. On the left there appears to be a popliteal nonocclusive thrombus. Critical Notification Critical Value: No <Conclusion> Suspect deep venous thrombi in the bilateral popliteal segments of the lower extremities with more pr oximal extension to the mid superficial femoral vein on the right side. Bilateral lower extremity below-knee venous structures were not well-visualized
--- NOTE | 2016-11-25 10:37 | PDOC ---
PULMONARY PROGRESS NOTES Subjective PT SEDATED Vitals Vital Signs Date Time Temp Pulse Resp B/P Pulse Ox O2 Delivery O2 Flow Rate FiO2 11/25/16 10:00 50 24 87/52 100 Ventilator 11/25/16 06:00 95.3 95.3 11/24/16 09:40 15.0 Lungs: Clear Cardiovascular: S1, S2 Abdomen: Soft Extremities: No Edema Skin: Warm Labs Laboratory Tests Test 11/24/16 06:50 11/24/16 07:15 11/24/16 07:17 11/24/16 07:45 O2 Saturation 98% (92-99) Arterial Blood pH 6.93 (7.35-7.45) Arterial Blood pCO2 at Patient Temp 57mmHg (35-46) Arterial Blood pO2 at Patient Temp 221mmHg (65-108) Arterial Blood HCO3 12mmol/L (21-28) Arterial Blood Base Excess -21mmol/L (-3-3) FiO2 100 White Blood Count 10.5x10^3/uL (4.0-11.0) Red Blood Count 3.56x10^6/uL (4.30-5.70) Hemoglobin 10.6g/dL (13.0-17.5) Hematocrit 34.0% (39.0-53.0) Mean Corpuscular Volume 96fL (79-100) Mean Corpuscular Hemoglobin 30pg (25-35) Mean Corpuscular Hemoglobin Concent 31g/dL (31-37) Red Cell Distribution Width 14.0% (11.5-14.5) Platelet Count 72x10^3/uL (140-400) Neutrophils (%) (Auto) 43% (31-73) Lymphocytes (%) (Auto) 48% (24-48) Monocytes (%) (Auto) 6% (0-9) Eosinophils (%) (Auto) 3% (0-3) Basophils (%) (Auto) 1% (0-3) Neutrophils # (Auto) 4.5x10^3uL (1.8-7.7) Lymphocytes # (Auto) 5.0x10^3/uL (1.0-4.8) Monocytes # (Auto) 0.6x10^3/uL (0.0-1.1) Eosinophils # (Auto) 0.3x10^3/uL (0.0-0.7) Basophils # (Auto) 0.1x10^3/uL (0.0-0.2) Sodium Level 156mmol/L (136-145) Potassium Level 3.6mmol/L (3.5-5.1) Chloride Level 113mmol/L (98-107) Carbon Dioxide Level 21mmol/L (21-32) Anion Gap 22 (6-14) 30mmol/L (6-14) Blood Urea Nitrogen 22mg/dL (8-26) Creatinine 1.6mg/dL (0.7-1.3) Estimated GFR (Cockcroft-Gault) 42.8 Glucose Level 364mg/dL (70-99) 400mg/dL (70-99) Lactic Acid Level 20.3mmol/L (0.4-2.0) Calcium Level 8.1mg/dL (8.5-10.1) Magnesium Level 2.1mg/dL (1.8-2.4) Total Bilirubin 0.2mg/dL (0.2-1.0) Direct Bilirubin 0.1mg/dL (0.0-0.2) Aspartate Amino Transf (AST/SGOT) 261U/L (15-37) Alanine Aminotransferase (ALT/SGPT) 378U/L (16-63) Alkaline Phosphatase 61U/L (46-116) Bedside Troponin I 0.12ng/ml (<0.08) Troponin I Quantitative 0.132ng/mL (0.000-0.055) TN-Drq-[id number]-Type Natriuretic Peptide 79pg/mL (0-124) Total Protein 4.9g/dL (6.4-8.2) Albumin 2.4g/dL (3.4-5.0) Triglycerides Level 174mg/dL (0-150) Cholesterol Level 79mg/dL (0-200) LDL Cholesterol, Calculated 18mg/dL (0-100) VLDL Cholesterol, Calculated 35mg/dL (0-40) HDL Cholesterol 26mg/dL (40-60) Cholesterol/HDL Ratio 3.0 Lipase 158U/L (73-393) Bedside Hemoglobin 10.2g/dL (14-18) Bedside Hematocrit 30% (37-52) Bedside Sodium 147mmol/L (135-145) Bedside Potassium 4.3mmol/L (3.5-5.0) Bedside Chloride 110mmol/L (98-110) Bedside Total CO2 12mmol/L (23-32) Bedside Blood Urea Nitrogen 22mg/dL (8-26) Bedside Creatinine 1.4mg/dL (0.5-1.4) Bedside Ionized Calcium ([place]) 1.02mmol/L (1.13-1.32) Urine Collection Type Unknown Urine Color Yellow Urine Clarity Clear Urine pH 5.0 Urine Specific [place] 1.020 Urine Protein 30mg/dL (NEG-TRACE) Urine Glucose (UA) Negativemg/dL (NEG) Urine Ketones (Stick) Negativemg/dL (NEG) Urine Blood Small (NEG) Urine Nitrite Negative (NEG) Urine Bilirubin Negative (NEG) Urine Urobilinogen Dipstick 0.2mg/dL (0.2 mg/dL) Urine Leukocyte Esterase Negative (NEG) Urine RBC 6-10/HPF (0-2) Urine WBC Occ/HPF (0-4) Urine Squamous Epithelial Cells Occ/LPF Urine Amorphous Sediment Present/HPF Urine Bacteria Few/HPF (0-FEW) Urine Mucus Marked/LPF Urine Opiates Screen Neg (NEG) Urine Methadone Screen Neg (NEG) Urine Barbiturates Neg (NEG) Urine Phencyclidine Screen Neg (NEG) Urine Amphetamine/Methamphetamine Neg (NEG) Urine Benzodiazepines Screen Neg (NEG) Urine Cocaine Screen Neg (NEG) Urine Cannabinoids Screen Neg (NEG) Urine Ethyl Alcohol Neg (NEG) Test 11/24/16 09:45 11/24/16 11:10 11/24/16 15:15 11/24/16 15:50 White Blood Count 18.6x10^3/uL (4.0-11.0) Red Blood Count 3.86x10^6/uL (4.30-5.70) Hemoglobin 11.7g/dL (13.0-17.5) Hematocrit 35.7% (39.0-53.0) Mean Corpuscular Volume 93fL (79-100) Mean Corpuscular Hemoglobin 30pg (25-35) Mean Corpuscular Hemoglobin Concent 33g/dL (31-37) Red Cell Distribution Width 14.1% (11.5-14.5) Platelet Count 142x10^3/uL (140-400) Neutrophils (%) (Auto) 78% (31-73) Lymphocytes (%) (Auto) 18% (24-48) Monocytes (%) (Auto) 2% (0-9) Eosinophils (%) (Auto) 2% (0-3) Basophils (%) (Auto) 0% (0-3) Neutrophils # (Auto) 14.6x10^3uL (1.8-7.7) Lymphocytes # (Auto) 3.3x10^3/uL (1.0-4.8) Monocytes # (Auto) 0.3x10^3/uL (0.0-1.1) Eosinophils # (Auto) 0.3x10^3/uL (0.0-0.7) Basophils # (Auto) 0.0x10^3/uL (0.0-0.2) Segmented Neutrophils % 56% (35-66) Band Neutrophils % 19% (0-9) Lymphocytes % 17% (24-48) Eosinophils % 5% (0-5) Metamyelocytes % 1% (0-0) Myelocytes % 2% (0-0) Platelet Estimate Adequate (ADEQUATE) [place] Cells Few Nasal Screen MRSA (PCR) Negative (Negative) Sodium Level 146mmol/L (136-145) 147mmol/L (136-145) Potassium Level 4.5mmol/L (3.5-5.1) 3.2mmol/L (3.5-5.1) Chloride Level 109mmol/L (98-107) 111mmol/L (98-107) Carbon Dioxide Level 18mmol/L (21-32) 22mmol/L (21-32) Anion Gap 19 (6-14) 14 (6-14) Blood Urea Nitrogen 27mg/dL (8-26) 29mg/dL (8-26) Creatinine 1.8mg/dL (0.7-1.3) 1.7mg/dL (0.7-1.3) Estimated GFR (Cockcroft-Gault) 37.4 39.9 Glucose Level 317mg/dL (70-99) 128mg/dL (70-99) Lactic Acid Level 10.0mmol/L (0.4-2.0) Calcium Level 7.6mg/dL (8.5-10.1) 7.7mg/dL (8.5-10.1) Phosphorus Level 8.3mg/dL (2.6-4.7) 2.5mg/dL (2.6-4.7) Magnesium Level 2.1mg/dL (1.8-2.4) 1.7mg/dL (1.8-2.4) O2 Saturation 99% (92-99) Arterial Blood pH 7.27 (7.35-7.45) Arterial Blood pCO2 at Patient Temp 38mmHg (35-46) Arterial Blood pO2 at Patient Temp 201mmHg (65-108) Arterial Blood HCO3 17mmol/L (21-28) Arterial Blood Base Excess -9mmol/L (-3-3) Oxyhemoglobin 98.1% Methemoglobin 0.2% (0.0-1.9) Carbon Monoxide, Quantitative 0.3% (0.0-1.9) FiO2 100 Clostridium difficile Toxin (PCR) Negative (Negative) Troponin I Quantitative 4.950ng/mL (0.000-0.055) Test 11/24/16 17:00 11/24/16 22:10 11/25/16 02:08 11/25/16 04:00 Stool Occult Blood Negative (NEG) White Blood Count 15.4x10^3/uL (4.0-11.0) Red Blood Count 3.98x10^6/uL (4.30-5.70) Hemoglobin 11.8g/dL (13.0-17.5) Hematocrit 36.3% (39.0-53.0) Mean Corpuscular Volume 91fL (79-100) Mean Corpuscular Hemoglobin 30pg (25-35) Mean Corpuscular Hemoglobin Concent 33g/dL (31-37) Red Cell Distribution Width 13.6% (11.5-14.5) Platelet Count 94x10^3/uL (140-400) Activated Partial Thromboplast Time > 150SEC (24-38) > 150SEC (24-38) Heparin Anti-Xa Act, Unfractionated > 1.10IU/mL (0.30-0.70) > 1.10IU/mL (0.30-0.70) Sodium Level 147mmol/L (136-145) 143mmol/L (136-145) 145mmol/L (136-145) Potassium Level 3.8mmol/L (3.5-5.1) 3.9mmol/L (3.5-5.1) 3.4mmol/L (3.5-5.1) Chloride Level 108mmol/L (98-107) 108mmol/L (98-107) 108mmol/L (98-107) Carbon Dioxide Level 25mmol/L (21-32) 22mmol/L (21-32) 20mmol/L (21-32) Anion Gap 14 (6-14) 13 (6-14) 17 (6-14) Blood Urea Nitrogen 32mg/dL (8-26) 32mg/dL (8-26) 33mg/dL (8-26) Creatinine 1.8mg/dL (0.7-1.3) 1.7mg/dL (0.7-1.3) 1.8mg/dL (0.7-1.3) Estimated GFR (Cockcroft-Gault) 37.4 39.9 37.4 Glucose Level 154mg/dL (70-99) 140mg/dL (70-99) 194mg/dL (70-99) Lactic Acid Level 3.3mmol/L (0.4-2.0) Calcium Level 7.8mg/dL (8.5-10.1) 7.3mg/dL (8.5-10.1) 7.2mg/dL (8.5-10.1) Phosphorus Level 3.4mg/dL (2.6-4.7) 3.9mg/dL (2.6-4.7) 4.4mg/dL (2.6-4.7) Magnesium Level 1.5mg/dL (1.8-2.4) 1.4mg/dL (1.8-2.4) 1.4mg/dL (1.8-2.4) Troponin I Quantitative 6.690ng/mL (0.000-0.055) 4.772ng/mL (0.000-0.055) 3.798ng/mL (0.000-0.055) Test 11/25/16 05:50 11/25/16 05:55 White Blood Count 13.9x10^3/uL (4.0-11.0) Red Blood Count 3.79x10^6/uL (4.30-5.70) Hemoglobin 11.3g/dL (13.0-17.5) Hematocrit 34.0% (39.0-53.0) Mean Corpuscular Volume 90fL (79-100) Mean Corpuscular Hemoglobin 30pg (25-35) Mean Corpuscular Hemoglobin Concent 33g/dL (31-37) Red Cell Distribution Width 13.9% (11.5-14.5) Platelet Count 96x10^3/uL (140-400) Prothrombin Time 19.9SEC (11.7-14.0) Prothromb Time International Ratio 1.8 (0.8-1.1) Lactic Acid Level 1.8mmol/L (0.4-2.0) Total Bilirubin 0.5mg/dL (0.2-1.0) Direct Bilirubin 0.2mg/dL (0.0-0.2) Aspartate Amino Transf (AST/SGOT) 316U/L (15-37) Alanine Aminotransferase (ALT/SGPT) 500U/L (16-63) Alkaline Phosphatase 76U/L (46-116) Total Protein 5.5g/dL (6.4-8.2) Albumin 2.7g/dL (3.4-5.0) Lipase 73U/L (73-393) O2 Saturation 98% (92-99) Arterial Blood pH 7.35 (7.35-7.45) Arterial Blood pH (Temp corrected) 7.37 Arterial Blood pCO2 at Patient Temp 39mmHg (35-46) Arterial Blood pCO2 (Temp correct) 36mmHg Arterial Blood pO2 at Patient Temp 125mmHg (65-108) Arterial Blood pO2 (Temp corrected) 114mmHg Arterial Blood HCO3 21mmol/L (21-28) Arterial Blood Base Excess -4mmol/L (-3-3) Methemoglobin 0.2% (0.0-1.9) Carbon Monoxide, Quantitative 0.3% (0.0-1.9) FiO2 70 Laboratory Tests Test 11/24/16 11:10 11/24/16 15:15 11/24/16 15:50 11/24/16 17:00 O2 Saturation 99% (92-99) Arterial Blood pH 7.27 (7.35-7.45) Arterial Blood pCO2 at Patient Temp 38mmHg (35-46) Arterial Blood pO2 at Patient Temp 201mmHg (65-108) Arterial Blood HCO3 17mmol/L (21-28) Arterial Blood Base Excess -9mmol/L (-3-3) Oxyhemoglobin 98.1% Methemoglobin 0.2% (0.0-1.9) Carbon Monoxide, Quantitative 0.3% (0.0-1.9) FiO2 100 Clostridium difficile Toxin (PCR) Negative (Negative) Sodium Level 147mmol/L (136-145) Potassium Level 3.2mmol/L (3.5-5.1) Chloride Level 111mmol/L (98-107) Carbon Dioxide Level 22mmol/L (21-32) Anion Gap 14 (6-14) Blood Urea Nitrogen 29mg/dL (8-26) Creatinine 1.7mg/dL (0.7-1.3) Estimated GFR (Cockcroft-Gault) 39.9 Glucose Level 128mg/dL (70-99) Calcium Level 7.7mg/dL (8.5-10.1) Phosphorus Level 2.5mg/dL (2.6-4.7) Magnesium Level 1.7mg/dL (1.8-2.4) Troponin I Quantitative 4.950ng/mL (0.000-0.055) Stool Occult Blood Negative (NEG) Test 11/24/16 22:10 11/25/16 02:08 11/25/16 04:00 11/25/16 05:50 White Blood Count 15.4x10^3/uL (4.0-11.0) 13.9x10^3/uL (4.0-11.0) Red Blood Count 3.98x10^6/uL (4.30-5.70) 3.79x10^6/uL (4.30-5.70) Hemoglobin 11.8g/dL (13.0-17.5) 11.3g/dL (13.0-17.5) Hematocrit 36.3% (39.0-53.0) 34.0% (39.0-53.0) Mean Corpuscular Volume 91fL (79-100) 90fL (79-100) Mean Corpuscular Hemoglobin 30pg (25-35) 30pg (25-35) Mean Corpuscular Hemoglobin Concent 33g/dL (31-37) 33g/dL (31-37) Red Cell Distribution Width 13.6% (11.5-14.5) 13.9% (11.5-14.5) Platelet Count 94x10^3/uL (140-400) 96x10^3/uL (140-400) Activated Partial Thromboplast Time > 150SEC (24-38) > 150SEC (24-38) Heparin Anti-Xa Act, Unfractionated > 1.10IU/mL (0.30-0.70) > 1.10IU/mL (0.30-0.70) Sodium Level 147mmol/L (136-145) 143mmol/L (136-145) 145mmol/L (136-145) Potassium Level 3.8mmol/L (3.5-5.1) 3.9mmol/L (3.5-5.1) 3.4mmol/L (3.5-5.1) Chloride Level 108mmol/L (98-107) 108mmol/L (98-107) 108mmol/L (98-107) Carbon Dioxide Level 25mmol/L (21-32) 22mmol/L (21-32) 20mmol/L (21-32) Anion Gap 14 (6-14) 13 (6-14) 17 (6-14) Blood Urea Nitrogen 32mg/dL (8-26) 32mg/dL (8-26) 33mg/dL (8-26) Creatinine 1.8mg/dL (0.7-1.3) 1.7mg/dL (0.7-1.3) 1.8mg/dL (0.7-1.3) Estimated GFR (Cockcroft-Gault) 37.4 39.9 37.4 Glucose Level 154mg/dL (70-99) 140mg/dL (70-99) 194mg/dL (70-99) Lactic Acid Level 3.3mmol/L (0.4-2.0) 1.8mmol/L (0.4-2.0) Calcium Level 7.8mg/dL (8.5-10.1) 7.3mg/dL (8.5-10.1) 7.2mg/dL (8.5-10.1) Phosphorus Level 3.4mg/dL (2.6-4.7) 3.9mg/dL (2.6-4.7) 4.4mg/dL (2.6-4.7) Magnesium Level 1.5mg/dL (1.8-2.4) 1.4mg/dL (1.8-2.4) 1.4mg/dL (1.8-2.4) Troponin I Quantitative 6.690ng/mL (0.000-0.055) 4.772ng/mL (0.000-0.055) 3.798ng/mL (0.000-0.055) Prothrombin Time 19.9SEC (11.7-14.0) Prothromb Time International Ratio 1.8 (0.8-1.1) Total Bilirubin 0.5mg/dL (0.2-1.0) Direct Bilirubin 0.2mg/dL (0.0-0.2) Aspartate Amino Transf (AST/SGOT) 316U/L (15-37) Alanine Aminotransferase (ALT/SGPT) 500U/L (16-63) Alkaline Phosphatase 76U/L (46-116) Total Protein 5.5g/dL (6.4-8.2) Albumin 2.7g/dL (3.4-5.0) Lipase 73U/L (73-393) Test 11/25/16 05:55 O2 Saturation 98% (92-99) Arterial Blood pH 7.35 (7.35-7.45) Arterial Blood pH (Temp corrected) 7.37 Arterial Blood pCO2 at Patient Temp 39mmHg (35-46) Arterial Blood pCO2 (Temp correct) 36mmHg Arterial Blood pO2 at Patient Temp 125mmHg (65-108) Arterial Blood pO2 (Temp corrected) 114mmHg Arterial Blood HCO3 21mmol/L (21-28) Arterial Blood Base Excess -4mmol/L (-3-3) Methemoglobin 0.2% (0.0-1.9) Carbon Monoxide, Quantitative 0.3% (0.0-1.9) FiO2 70 Impression . 1. Acute respiratory failure secondary to [id number] cardiopulmonary arrest. Suspect that this is secondary to arrhythmia. 2. Hyperlipidemia. 3. Diabetes. 4. Positive venous Doppler on Heparin 5. Metabolic acidosis sec to code 6. Possible PE 7[place] [address]% 8. Acute kidney injury Plan . STARTED REWARMING PROCESS BRADYCARDIA, D/C DIPRIVAN AND USE PRN VERSED 1. We will continue current support with mechanical ventilation. 2. Follow hypothermic protocol. 3. Cardiology follow rec 4. Once the patient is warm and his neurological status improves, we will try to wean him off the mechanical ventilation. 5. Further cardiac workup per Dr. Lu. 6. Titrate FIO2. 7. No need for antibiotics. MC GUILLORY MD Nov 25, 2016 10:37
--- NOTE | 2016-11-25 10:43 | PDOC2 ---
[employer] 11/25/16 1043: CONSULT Date of Consult Date of Consult DATE: 11/25/16 TIME: 10:33 Reason for Consult Reason for Consult: post code foul stool Referring Physician Referring Physician: [place]IS Identification/Chief Complaint Chief Complaint code Source Source: Chart review History of Present Illness Reason for Visit: Admitted after unresponsiveness, EMS post code He is now intubated consulted for foul diarrhea stools since admission Past Medical History Cardiovascular: HTN, Hyperlipidemia Pulmonary: No pertinent hx CENTRAL NERVOUS SYSTEM: Other (no pertinent hx ) GI: No pertinent hx Heme/Onc: No pertinent hx Hepatobiliary: No pertinent hx Psych: No pertinent hx Musculoskeletal: Osteoarthritis Rheumatologic: No pertinent hx Infectious disease: No pertinent hx ENT: No pertinent hx Renal/: Other (kidney stones ) Endocrine: Diabetes Dermatology: No pertinent hx Past Surgical History Past Surgical History: Other Family History Family History: Family History Unknown Social History No ALCOHOL: none Drugs: None Lives: with Family Current Problem List Problem List Problems Medical Problems: (1) Cardiac arrest Status: Acute Current Medications Current Medications Current Medications Sodium Chloride 1,000 ml @ 1,000 mls/hr Q1H IV Last administered on 11/24/16 06:50; Start 11/24/16 at 06:50; Stop 11/24/16 at 07:49; Status DC Epinephrine HCl/ Sodium Chloride (Adrenalin/Iv Sodium Chloride 0.9% 250ml) 254 ml @ 0 mls/hr CONT PRN IV SEE I/O RECORD Last administered on 11/24/16 07:39; Start 11/24/16 at 07:30 Insulin Aspart (Novolog) 0-7 UNITS TIDWMEALS SQ ; Start 11/24/16 at 08:00; Stop 11/24/16 at 15:36; Status DC Dextrose 12.5 gm 12.5 gm PRN Q15MIN PRN IV SEE COMMENTS; Start 11/24/16 at 07: 45 Sodium Chloride (Iv Sodium Chloride 0.9% 1000ml Bag) 1,000 ml @ 125 mls/hr 1X ONCE IV Last administered on 11/24/16 07:52; Start 11/24/16 at 08:00; Stop at 08:20; Status DC Vancomycin HCl (Vanco Per Pharmacy) 1 each PRN DAILY PRN MC SEE COMMENTS Last administered on 11/24/16 11:26; Start 11/24/16 at 08:15; Stop 11/24/16 at 13:06 ; Status DC Piperacillin Sod/ Tazobactam Sod 1 each 1 each PRN DAILY PRN MC SEE COMMENTS; Start 11/24/16 at 08:15; Stop 11/24/16 at 13:06; Status DC Sodium Bicarbonate 50 meq/Sodium Chloride 1,050 ml @ 125 mls/hr Q8H24M IV Last administered on 11/25/16 01:22; Start 11/24/16 at 08:30 Vancomycin HCl 2 gm/Sodium Chloride 500 ml @ 250 mls/hr ONCE ONCE IV Last administered on 11/24/16 10:15; Start 11/24/16 at 08:30; Stop 11/24/16 at 10:29 ; Status DC Piperacillin Sod/ Tazobactam Sod 4.5 gm/Sodium Chloride 100 ml @ 200 mls/hr Q6HRS IV Last administered on 11/24/16 10:10; Start 11/24/16 at 08:30; Stop at 11:15; Status DC Sodium Chloride (Iv Sodium Chloride 0.9% 1000ml Bag) 1,000 ml @ 1,000 mls/hr Q1H IV Last administered on 11/24/16 10:09; Start 11/24/16 at 08:39; Stop at 11:47; Status DC Fentanyl Citrate (Fentanyl 2ml Vial) 25 mcg PRN Q30MIN PRN IV SED; Start at 08:45 Lorazepam 1 mg 1 mg PRN Q30MIN PRN IV SEDATION; Start 11/24/16 at 08:45 Fentanyl Citrate 30 ml @ 2.5 mls/hr CONT PRN PRN IV IVF Last administered on 00:20; Start 11/24/16 at 08:45 Propofol (Diprivan) 100 ml @ 0 mls/hr CONT PRN IV SEE I/O RECORD Last administered on 11/25/16 06:00; Start 11/24/16 at 08:45 Vecuronium [place] (Norcuron Bolus) 9 mg PRN Q30MIN PRN IV SHIVERING Last administered on 11/24/16 17:38; Start 11/24/16 at 08:45 Meperidine HCl (Demerol) 12.5 mg PRN Q30MIN PRN IV SHIVERING Last administered on 11/24/16 22:21; Start 11/24/16 at 08:45; Stop 11/24/16 at 22:21; Status DC Multi-Ingred Cream/Lotion/Oil/ Oint (Artificial Tears Eye Oint) 1 radha PRN Q6HRS PRN OU 0.5 INCH FOR DRY EYE; Start 11/24/16 at 08:45 Famotidine (Pepcid) 20 mg QHS IVP Last administered on 11/24/16 22:21; Start 11/24/16 at 21:00 Aspirin (Aspirin) 300 mg DAILY AR Last administered on 11/24/16 10:15; Start 11/24/16 at 09:00 Sodium Chloride (Normal Saline Flush) 3 ml QSHIFT PRN IV AFTER MEDS AND BLOOD DRAWS; Start 11/24/16 at 08:45 Acetaminophen (Tylenol) 650 mg Q6HRS NG ; Start 11/24/16 at 12:00; Stop at 11:59 Acetaminophen (Tylenol) 650 mg PRN Q6HRS PRN AR MILD PAIN / TEMP; Start at 08:45 Acetaminophen (Tylenol) 650 mg PRN Q6HRS PRN NG MILD PAIN / TEMP; Start at 08:45 Info 1 ea 1 ea DAILY PRN MC PER PROTOCOL; Start 11/26/16 at 08:45 Insulin Human Regular 150 unit/ Sodium Chloride 151.5 ml @ 9.16 mls/hr CONT PRN IV SEE I/O RECORD Last administered on 11/24/16 10:13; Start 11/24/16 at 09 :30 Piperacillin Sod/ Tazobactam Sod 3.375 gm/Sodium Chloride 50 ml @ 100 mls/hr Q6HRS IV ; Start 11/24/16 at 18:00; Stop 11/24/16 at 18:00; Status DC Vancomycin HCl/ Sodium Chloride (Iv Sodium Chloride 0.9% 500ml Bag) 500 ml @ 250 mls/hr Q24H IV ; Start 11/25/16 at 10:00; Stop 11/25/16 at 10:00; Status DC Vancomycin HCl 1 each 1 each 1X ONCE MC ; Start 11/26/16 at 09:30; Stop at 09:30; Status DC Sodium Chloride (Iv Sodium Chloride 0.9% 1000ml Bag) 1,000 ml @ 1,000 mls/hr 1X ONCE IV Last administered on 11/24/16 11:00; Start 11/24/16 at 11:00; Stop 11/24/16 at 11:59; Status DC Insulin Detemir (Levemir) 12 units QHS SQ ; Start 11/24/16 at 21:00; Stop at 21:00; Status DC Insulin Aspart (Novolog) 10 units 1X ONCE SQ ; Start 11/24/16 at 15:30; Stop at 20:10; Status DC Insulin Aspart (Novolog) 0-7 UNITS Q4HRS SQ ; Start 11/24/16 at 16:00; Stop at 20:10; Status DC Heparin Sodium (Porcine) 8100 unit 8,100 unit 1X ONCE IV Last administered on 11/24/16 17:24; Start 11/24/16 at 17:00; Stop 11/24/16 at 17:01; Status DC Heparin Sodium/ Dextrose 500 ml @ 0 mls/hr CONT PRN IV SEE I/O RECORD Last administered on 11/25/16 01:43; Start 11/24/16 at 16:45 Heparin Sodium (Porcine) 3,000 unit PRN Q6HRS PRN IV FOR UFH LEVEL LESS THAN 0.2; Start 11/24/16 at 16:45 Heparin Sodium (Porcine) 1,500 unit PRN Q6HRS PRN IV FOR UFH LEVEL 0.2 - 0.29; Start 11/24/16 at 16:45 Info 1 each 1 each PRN DAILY PRN MC SEE COMMENTS; Start 11/24/16 at 17:00 Piperacillin Sod/ Tazobactam Sod 3.375 gm/Sodium Chloride 50 ml @ 100 mls/hr Q6HRS IV Last administered on 11/25/16 05:56; Start 11/25/16 at 00:00 Vancomycin HCl/ Sodium Chloride (Iv Sodium Chloride 0.9% 250ml) 250 ml @ 250 mls/hr 1X ONCE IV ; Start 11/24/16 at 21:30; Stop 11/24/16 at 22:29; Status UNV Vancomycin HCl 1 each 1 each PRN DAILY PRN MC SEE COMMENTS Last administered on 11/25/16t 03:30; Start 11/25/16 at 01:00; Stop 11/25/16 at 08:57; Status DC Vancomycin HCl/ Sodium Chloride (Iv Sodium Chloride 0.9% 500ml Bag) 500 ml @ 250 mls/hr Q24H IV ; Start 11/25/16 at 10:00; Stop 11/25/16 at 10:00; Status DC Vancomycin HCl 1 each 1X ONCE MC ; Start 11/26/16 at 09:30; Stop 11/26/16 at 09 :30; Status DC Enoxaparin Sodium (Lovenox Per Pharmacy Prophylaxis Dosing) 1 each PRN DAILY PRN MC SEE COMMENTS; Start 11/25/16 at 08:45; Status UNV Chlorhexidine Gluconate 15 ml 15 ml BID MM ; Start 11/25/16 at 21:00 Magnesium Sulfate/ Dextrose 50 ml @ 25 mls/hr PRN DAILY PRN IV for Mag < 1.7 on am labs; Start 11/25/16 at 09:45 Magnesium Sulfate/ Dextrose 50 ml @ 25 mls/hr PRN DAILY PRN IV for Mag < 1.7 on am labs; Start 11/25/16 at 09:45; Status UNV Sodium Chloride (Iv Sodium Chloride 0.9% 500ml Bag) 500 ml @ 0 mls/hr QID PRN IV UO< 30cc/hr over previous 6hrs; Start 11/25/16 at 09:45 Allergies Allergies: Coded Allergies: No Known Drug Allergies (Unverified , 11/24/16) ROS Review of System unable to obtain Physical Exam General: Other (sedated) HEENT: Other (ET tube, OG in place--bilious) Lungs: Other (mech vent ) Heart: Normal S1, Normal S2 Abdomen: Soft, Other (ND) Extremities: Other (some edema noted to extremities ) Vitals VITALS Vital Signs Date Time Temp Pulse Resp B/P Pulse Ox O2 Delivery O2 Flow Rate FiO2 11/25/16 10:00 50 24 87/52 100 Ventilator 11/25/16 06:00 95.3 95.3 11/24/16 09:40 15.0 Labs Labs Laboratory Tests Test 11/24/16 06:50 11/24/16 07:15 11/24/16 07:17 11/24/16 07:45 O2 Saturation 98% (92-99) Arterial Blood pH 6.93 (7.35-7.45) Arterial Blood pCO2 at Patient Temp 57mmHg (35-46) Arterial Blood pO2 at Patient Temp 221mmHg (65-108) Arterial Blood HCO3 12mmol/L (21-28) Arterial Blood Base Excess -21mmol/L (-3-3) FiO2 100 White Blood Count 10.5x10^3/uL (4.0-11.0) Red Blood Count 3.56x10^6/uL (4.30-5.70) Hemoglobin 10.6g/dL (13.0-17.5) Hematocrit 34.0% (39.0-53.0) Mean Corpuscular Volume 96fL (79-100) Mean Corpuscular Hemoglobin 30pg (25-35) Mean Corpuscular Hemoglobin Concent 31g/dL (31-37) Red Cell Distribution Width 14.0% (11.5-14.5) Platelet Count 72x10^3/uL (140-400) Neutrophils (%) (Auto) 43% (31-73) Lymphocytes (%) (Auto) 48% (24-48) Monocytes (%) (Auto) 6% (0-9) Eosinophils (%) (Auto) 3% (0-3) Basophils (%) (Auto) 1% (0-3) Neutrophils # (Auto) 4.5x10^3uL (1.8-7.7) Lymphocytes # (Auto) 5.0x10^3/uL (1.0-4.8) Monocytes # (Auto) 0.6x10^3/uL (0.0-1.1) Eosinophils # (Auto) 0.3x10^3/uL (0.0-0.7) Basophils # (Auto) 0.1x10^3/uL (0.0-0.2) Sodium Level 156mmol/L (136-145) Potassium Level 3.6mmol/L (3.5-5.1) Chloride Level 113mmol/L (98-107) Carbon Dioxide Level 21mmol/L (21-32) Anion Gap 22 (6-14) 30mmol/L (6-14) Blood Urea Nitrogen 22mg/dL (8-26) Creatinine 1.6mg/dL (0.7-1.3) Estimated GFR (Cockcroft-Gault) 42.8 Glucose Level 364mg/dL (70-99) 400mg/dL (70-99) Lactic Acid Level 20.3mmol/L (0.4-2.0) Calcium Level 8.1mg/dL (8.5-10.1) Magnesium Level 2.1mg/dL (1.8-2.4) Total Bilirubin 0.2mg/dL (0.2-1.0) Direct Bilirubin 0.1mg/dL (0.0-0.2) Aspartate Amino Transf (AST/SGOT) 261U/L (15-37) Alanine Aminotransferase (ALT/SGPT) 378U/L (16-63) Alkaline Phosphatase 61U/L (46-116) Bedside Troponin I 0.12ng/ml (<0.08) Troponin I Quantitative 0.132ng/mL (0.000-0.055) DJ-Jes-N-Type Natriuretic Peptide 79pg/mL (0-124) Total Protein 4.9g/dL (6.4-8.2) Albumin 2.4g/dL (3.4-5.0) Triglycerides Level 174mg/dL (0-150) Cholesterol Level 79mg/dL (0-200) LDL Cholesterol, Calculated 18mg/dL (0-100) VLDL Cholesterol, Calculated 35mg/dL (0-40) HDL Cholesterol 26mg/dL (40-60) Cholesterol/HDL Ratio 3.0 Lipase 158U/L (73-393) Bedside Hemoglobin 10.2g/dL (14-18) Bedside Hematocrit 30% (37-52) Bedside Sodium 147mmol/L (135-145) Bedside Potassium 4.3mmol/L (3.5-5.0) Bedside Chloride 110mmol/L (98-110) Bedside Total CO2 12mmol/L (23-32) Bedside Blood Urea Nitrogen 22mg/dL (8-26) Bedside Creatinine 1.4mg/dL (0.5-1.4) Bedside Ionized Calcium ([place]) 1.02mmol/L (1.13-1.32) Urine Collection Type Unknown Urine Color Yellow Urine Clarity Clear Urine pH 5.0 Urine Specific [place] 1.020 Urine Protein 30mg/dL (NEG-TRACE) Urine Glucose (UA) Negativemg/dL (NEG) Urine Ketones (Stick) Negativemg/dL (NEG) Urine Blood Small (NEG) Urine Nitrite Negative (NEG) Urine Bilirubin Negative (NEG) Urine Urobilinogen Dipstick 0.2mg/dL (0.2 mg/dL) Urine Leukocyte Esterase Negative (NEG) Urine RBC 6-10/HPF (0-2) Urine WBC Occ/HPF (0-4) Urine Squamous Epithelial Cells Occ/LPF Urine Amorphous Sediment Present/HPF Urine Bacteria Few/HPF (0-FEW) Urine Mucus Marked/LPF Urine Opiates Screen Neg (NEG) Urine Methadone Screen Neg (NEG) Urine Barbiturates Neg (NEG) Urine Phencyclidine Screen Neg (NEG) Urine Amphetamine/Methamphetamine Neg (NEG) Urine Benzodiazepines Screen Neg (NEG) Urine Cocaine Screen Neg (NEG) Urine Cannabinoids Screen Neg (NEG) Urine Ethyl Alcohol Neg (NEG) Test 11/24/16 09:45 11/24/16 11:10 11/24/16 15:15 11/24/16 15:50 White Blood Count 18.6x10^3/uL (4.0-11.0) Red Blood Count 3.86x10^6/uL (4.30-5.70) Hemoglobin 11.7g/dL (13.0-17.5) Hematocrit 35.7% (39.0-53.0) Mean Corpuscular Volume 93fL (79-100) Mean Corpuscular Hemoglobin 30pg (25-35) Mean Corpuscular Hemoglobin Concent 33g/dL (31-37) Red Cell Distribution Width 14.1% (11.5-14.5) Platelet Count 142x10^3/uL (140-400) Neutrophils (%) (Auto) 78% (31-73) Lymphocytes (%) (Auto) 18% (24-48) Monocytes (%) (Auto) 2% (0-9) Eosinophils (%) (Auto) 2% (0-3) Basophils (%) (Auto) 0% (0-3) Neutrophils # (Auto) 14.6x10^3uL (1.8-7.7) Lymphocytes # (Auto) 3.3x10^3/uL (1.0-4.8) Monocytes # (Auto) 0.3x10^3/uL (0.0-1.1) Eosinophils # (Auto) 0.3x10^3/uL (0.0-0.7) Basophils # (Auto) 0.0x10^3/uL (0.0-0.2) Segmented Neutrophils % 56% (35-66) Band Neutrophils % 19% (0-9) Lymphocytes % 17% (24-48) Eosinophils % 5% (0-5) Metamyelocytes % 1% (0-0) Myelocytes % 2% (0-0) Platelet Estimate Adequate (ADEQUATE) [place] Cells Few Nasal Screen MRSA (PCR) Negative (Negative) Sodium Level 146mmol/L (136-145) 147mmol/L (136-145) Potassium Level 4.5mmol/L (3.5-5.1) 3.2mmol/L (3.5-5.1) Chloride Level 109mmol/L (98-107) 111mmol/L (98-107) Carbon Dioxide Level 18mmol/L (21-32) 22mmol/L (21-32) Anion Gap 19 (6-14) 14 (6-14) Blood Urea Nitrogen 27mg/dL (8-26) 29mg/dL (8-26) Creatinine 1.8mg/dL (0.7-1.3) 1.7mg/dL (0.7-1.3) Estimated GFR (Cockcroft-Gault) 37.4 39.9 Glucose Level 317mg/dL (70-99) 128mg/dL (70-99) Lactic Acid Level 10.0mmol/L (0.4-2.0) Calcium Level 7.6mg/dL (8.5-10.1) 7.7mg/dL (8.5-10.1) Phosphorus Level 8.3mg/dL (2.6-4.7) 2.5mg/dL (2.6-4.7) Magnesium Level 2.1mg/dL (1.8-2.4) 1.7mg/dL (1.8-2.4) O2 Saturation 99% (92-99) Arterial Blood pH 7.27 (7.35-7.45) Arterial Blood pCO2 at Patient Temp 38mmHg (35-46) Arterial Blood pO2 at Patient Temp 201mmHg (65-108) Arterial Blood HCO3 17mmol/L (21-28) Arterial Blood Base Excess -9mmol/L (-3-3) Oxyhemoglobin 98.1% Methemoglobin 0.2% (0.0-1.9) Carbon Monoxide, Quantitative 0.3% (0.0-1.9) FiO2 100 Clostridium difficile Toxin (PCR) Negative (Negative) Troponin I Quantitative 4.950ng/mL (0.000-0.055) Test 11/24/16 17:00 11/24/16 22:10 11/25/16 02:08 11/25/16 04:00 Stool Occult Blood Negative (NEG) White Blood Count 15.4x10^3/uL (4.0-11.0) Red Blood Count 3.98x10^6/uL (4.30-5.70) Hemoglobin 11.8g/dL (13.0-17.5) Hematocrit 36.3% (39.0-53.0) Mean Corpuscular Volume 91fL (79-100) Mean Corpuscular Hemoglobin 30pg (25-35) Mean Corpuscular Hemoglobin Concent 33g/dL (31-37) Red Cell Distribution Width 13.6% (11.5-14.5) Platelet Count 94x10^3/uL (140-400) Activated Partial Thromboplast Time > 150SEC (24-38) > 150SEC (24-38) Heparin Anti-Xa Act, Unfractionated > 1.10IU/mL (0.30-0.70) > 1.10IU/mL (0.30-0.70) Sodium Level 147mmol/L (136-145) 143mmol/L (136-145) 145mmol/L (136-145) Potassium Level 3.8mmol/L (3.5-5.1) 3.9mmol/L (3.5-5.1) 3.4mmol/L (3.5-5.1) Chloride Level 108mmol/L (98-107) 108mmol/L (98-107) 108mmol/L (98-107) Carbon Dioxide Level 25mmol/L (21-32) 22mmol/L (21-32) 20mmol/L (21-32) Anion Gap 14 (6-14) 13 (6-14) 17 (6-14) Blood Urea Nitrogen 32mg/dL (8-26) 32mg/dL (8-26) 33mg/dL (8-26) Creatinine 1.8mg/dL (0.7-1.3) 1.7mg/dL (0.7-1.3) 1.8mg/dL (0.7-1.3) Estimated GFR (Cockcroft-Gault) 37.4 39.9 37.4 Glucose Level 154mg/dL (70-99) 140mg/dL (70-99) 194mg/dL (70-99) Lactic Acid Level 3.3mmol/L (0.4-2.0) Calcium Level 7.8mg/dL (8.5-10.1) 7.3mg/dL (8.5-10.1) 7.2mg/dL (8.5-10.1) Phosphorus Level 3.4mg/dL (2.6-4.7) 3.9mg/dL (2.6-4.7) 4.4mg/dL (2.6-4.7) Magnesium Level 1.5mg/dL (1.8-2.4) 1.4mg/dL (1.8-2.4) 1.4mg/dL (1.8-2.4) Troponin I Quantitative 6.690ng/mL (0.000-0.055) 4.772ng/mL (0.000-0.055) 3.798ng/mL (0.000-0.055) Test 11/25/16 05:50 11/25/16 05:55 White Blood Count 13.9x10^3/uL (4.0-11.0) Red Blood Count 3.79x10^6/uL (4.30-5.70) Hemoglobin 11.3g/dL (13.0-17.5) Hematocrit 34.0% (39.0-53.0) Mean Corpuscular Volume 90fL (79-100) Mean Corpuscular Hemoglobin 30pg (25-35) Mean Corpuscular Hemoglobin Concent 33g/dL (31-37) Red Cell Distribution Width 13.9% (11.5-14.5) Platelet Count 96x10^3/uL (140-400) Prothrombin Time 19.9SEC (11.7-14.0) Prothromb Time International Ratio 1.8 (0.8-1.1) Lactic Acid Level 1.8mmol/L (0.4-2.0) Total Bilirubin 0.5mg/dL (0.2-1.0) Direct Bilirubin 0.2mg/dL (0.0-0.2) Aspartate Amino Transf (AST/SGOT) 316U/L (15-37) Alanine Aminotransferase (ALT/SGPT) 500U/L (16-63) Alkaline Phosphatase 76U/L (46-116) Total Protein 5.5g/dL (6.4-8.2) Albumin 2.7g/dL (3.4-5.0) Lipase 73U/L (73-393) O2 Saturation 98% (92-99) Arterial Blood pH 7.35 (7.35-7.45) Arterial Blood pH (Temp corrected) 7.37 Arterial Blood pCO2 at Patient Temp 39mmHg (35-46) Arterial Blood pCO2 (Temp correct) 36mmHg Arterial Blood pO2 at Patient Temp 125mmHg (65-108) Arterial Blood pO2 (Temp corrected) 114mmHg Arterial Blood HCO3 21mmol/L (21-28) Arterial Blood Base Excess -4mmol/L (-3-3) Methemoglobin 0.2% (0.0-1.9) Carbon Monoxide, Quantitative 0.3% (0.0-1.9) FiO2 70 Laboratory Tests Test 11/24/16 11:10 11/24/16 15:15 11/24/16 15:50 11/24/16 17:00 O2 Saturation 99% (92-99) Arterial Blood pH 7.27 (7.35-7.45) Arterial Blood pCO2 at Patient Temp 38mmHg (35-46) Arterial Blood pO2 at Patient Temp 201mmHg (65-108) Arterial Blood HCO3 17mmol/L (21-28) Arterial Blood Base Excess -9mmol/L (-3-3) Oxyhemoglobin 98.1% Methemoglobin 0.2% (0.0-1.9) Carbon Monoxide, Quantitative 0.3% (0.0-1.9) FiO2 100 Clostridium difficile Toxin (PCR) Negative (Negative) Sodium Level 147mmol/L (136-145) Potassium Level 3.2mmol/L (3.5-5.1) Chloride Level 111mmol/L (98-107) Carbon Dioxide Level 22mmol/L (21-32) Anion Gap 14 (6-14) Blood Urea Nitrogen 29mg/dL (8-26) Creatinine 1.7mg/dL (0.7-1.3) Estimated GFR (Cockcroft-Gault) 39.9 Glucose Level 128mg/dL (70-99) Calcium Level 7.7mg/dL (8.5-10.1) Phosphorus Level 2.5mg/dL (2.6-4.7) Magnesium Level 1.7mg/dL (1.8-2.4) Troponin I Quantitative 4.950ng/mL (0.000-0.055) Stool Occult Blood Negative (NEG) Test 11/24/16 22:10 11/25/16 02:08 11/25/16 04:00 11/25/16 05:50 White Blood Count 15.4x10^3/uL (4.0-11.0) 13.9x10^3/uL (4.0-11.0) Red Blood Count 3.98x10^6/uL (4.30-5.70) 3.79x10^6/uL (4.30-5.70) Hemoglobin 11.8g/dL (13.0-17.5) 11.3g/dL (13.0-17.5) Hematocrit 36.3% (39.0-53.0) 34.0% (39.0-53.0) Mean Corpuscular Volume 91fL (79-100) 90fL (79-100) Mean Corpuscular Hemoglobin 30pg (25-35) 30pg (25-35) Mean Corpuscular Hemoglobin Concent 33g/dL (31-37) 33g/dL (31-37) Red Cell Distribution Width 13.6% (11.5-14.5) 13.9% (11.5-14.5) Platelet Count 94x10^3/uL (140-400) 96x10^3/uL (140-400) Activated Partial Thromboplast Time > 150SEC (24-38) > 150SEC (24-38) Heparin Anti-Xa Act, Unfractionated > 1.10IU/mL (0.30-0.70) > 1.10IU/mL (0.30-0.70) Sodium Level 147mmol/L (136-145) 143mmol/L (136-145) 145mmol/L (136-145) Potassium Level 3.8mmol/L (3.5-5.1) 3.9mmol/L (3.5-5.1) 3.4mmol/L (3.5-5.1) Chloride Level 108mmol/L (98-107) 108mmol/L (98-107) 108mmol/L (98-107) Carbon Dioxide Level 25mmol/L (21-32) 22mmol/L (21-32) 20mmol/L (21-32) Anion Gap 14 (6-14) 13 (6-14) 17 (6-14) Blood Urea Nitrogen 32mg/dL (8-26) 32mg/dL (8-26) 33mg/dL (8-26) Creatinine 1.8mg/dL (0.7-1.3) 1.7mg/dL (0.7-1.3) 1.8mg/dL (0.7-1.3) Estimated GFR (Cockcroft-Gault) 37.4 39.9 37.4 Glucose Level 154mg/dL (70-99) 140mg/dL (70-99) 194mg/dL (70-99) Lactic Acid Level 3.3mmol/L (0.4-2.0) 1.8mmol/L (0.4-2.0) Calcium Level 7.8mg/dL (8.5-10.1) 7.3mg/dL (8.5-10.1) 7.2mg/dL (8.5-10.1) Phosphorus Level 3.4mg/dL (2.6-4.7) 3.9mg/dL (2.6-4.7) 4.4mg/dL (2.6-4.7) Magnesium Level 1.5mg/dL (1.8-2.4) 1.4mg/dL (1.8-2.4) 1.4mg/dL (1.8-2.4) Troponin I Quantitative 6.690ng/mL (0.000-0.055) 4.772ng/mL (0.000-0.055) 3.798ng/mL (0.000-0.055) Prothrombin Time 19.9SEC (11.7-14.0) Prothromb Time International Ratio 1.8 (0.8-1.1) Total Bilirubin 0.5mg/dL (0.2-1.0) Direct Bilirubin 0.2mg/dL (0.0-0.2) Aspartate Amino Transf (AST/SGOT) 316U/L (15-37) Alanine Aminotransferase (ALT/SGPT) 500U/L (16-63) Alkaline Phosphatase 76U/L (46-116) Total Protein 5.5g/dL (6.4-8.2) Albumin 2.7g/dL (3.4-5.0) Lipase 73U/L (73-393) Test 11/25/16 05:55 O2 Saturation 98% (92-99) Arterial Blood pH 7.35 (7.35-7.45) Arterial Blood pH (Temp corrected) 7.37 Arterial Blood pCO2 at Patient Temp 39mmHg (35-46) Arterial Blood pCO2 (Temp correct) 36mmHg Arterial Blood pO2 at Patient Temp 125mmHg (65-108) Arterial Blood pO2 (Temp corrected) 114mmHg Arterial Blood HCO3 21mmol/L (21-28) Arterial Blood Base Excess -4mmol/L (-3-3) Methemoglobin 0.2% (0.0-1.9) Carbon Monoxide, Quantitative 0.3% (0.0-1.9) FiO2 70 Assessment/Plan Assessment/Plan post cardiac arrest diarrhea, possible mesenteric ischemia leukocytosis DVT transaminase resp failure requiring vent supportive care , will review with Dr Fuller Not a surgical candidate at this point MALCOLM FULLER MD 11/25/16 1117: CONSULT Allergies Allergies: Coded Allergies: No Known Drug Allergies (Unverified , 11/24/16) Assessment/Plan Assessment/Plan Pt seen and examined. Agree with Ms. Stark's note Pt intubated and sedated on cooling protocol abd soft stool currently does not appear bloody, stool occult negative lactic acid normalizing possible ischemic bowel, but appears to be resolving regardless, pt not a surgical candidate agree with supportive care Thanks for consult! WILL STARK APRN Nov 25, 2016 10:43 MALCOLM FULLER MD Nov 25, 2016 11:17
[2016-11-25 10:49] LABS: CALCIUM 7.1 mg/dL (8.5-10.1); CREATININE 1.7 mg/dL (0.7-1.3); GFR 39.9; MAGNESIUM 1.4 mg/dL (1.8-2.4); PHOSPHORUS 4.9 mg/dL (2.6-4.7)
[2016-11-25 10:51] LABS: POTASSIUM 4.5 mmol/L (3.5-5.1)
[2016-11-25] MEDS: ASPIRIN 300 MG SUPP.RECT PR SCH (10:53)
[2016-11-25] MEDS ORDERED: SODIUM BICARB ADULT 8.4% 50 MEQ/50 ML DISP.SYRIN. ONE (12:00)
[2016-11-25] MEDS ORDERED: EPINEPHRINE 1 MG/10 ML DISP.SYRIN. ONE (12:00)
[2016-11-25] MEDS ORDERED: ATROPINE 0.5 MG/5 ML DISP.SYRIN. ONE (12:00)
[2016-11-25] MEDS ORDERED: AMIODARONE 150 MG/3 ML VIAL ONE (12:00)
[2016-11-25] MEDS ORDERED: EPINEPHRINE 30 MG/30 ML VIAL. ONE (12:00)
[2016-11-25] MEDS ORDERED: MAGNESIUM SULFATE 2GM 50 ML IV ONE (12:30)
[2016-11-25] MEDS ORDERED: LIDOCAINE 1% / SOD BICARB 8.4% 20 ML VIAL. IJ ONE ×2 (12:35→13:15)
[2016-11-25 12:38] LABS: CREATININE 1.8 mg/dL (0.7-1.3); GFR 37.4; MAGNESIUM 1.2 mg/dL (1.8-2.4); PHOSPHORUS 4.5 mg/dL (2.6-4.7); POTASSIUM 4.4 mmol/L (3.5-5.1)
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
--- NOTE | 2016-11-25 13:08 | PDOC ---
Objective: Objective: Per RN - diarrhea slowing. Now re-warming. Vital Signs: Vital Signs Date Time Temp Pulse Resp B/P Pulse Ox O2 Delivery O2 Flow Rate FiO2 11/25/16 11:40 100 Ventilator 11/25/16 10:00 50 24 87/52 11/25/16 06:00 95.3 95.3 11/24/16 09:40 15.0 Labs: Laboratory Tests Test 11/24/16 15:15 11/24/16 15:50 11/24/16 17:00 11/24/16 22:10 Clostridium difficile Toxin (PCR) Negative Sodium Level 147mmol/L 147mmol/L Potassium Level 3.2mmol/L 3.8mmol/L Chloride Level 111mmol/L 108mmol/L Carbon Dioxide Level 22mmol/L 25mmol/L Anion Gap 14 14 Blood Urea Nitrogen 29mg/dL 32mg/dL Creatinine 1.7mg/dL 1.8mg/dL Estimated GFR (Cockcroft-Gault) 39.9 37.4 Glucose Level 128mg/dL 154mg/dL Calcium Level 7.7mg/dL 7.8mg/dL Phosphorus Level 2.5mg/dL 3.4mg/dL Magnesium Level 1.7mg/dL 1.5mg/dL Troponin I Quantitative 4.950ng/mL 6.690ng/mL Stool Occult Blood Negative White Blood Count 15.4x10^3/uL Red Blood Count 3.98x10^6/uL Hemoglobin 11.8g/dL Hematocrit 36.3% Mean Corpuscular Volume 91fL Mean Corpuscular Hemoglobin 30pg Mean Corpuscular Hemoglobin Concent 33g/dL Red Cell Distribution Width 13.6% Platelet Count 94x10^3/uL Activated Partial Thromboplast Time > 150SEC Heparin Anti-Xa Act, Unfractionated > 1.10IU/mL Lactic Acid Level 3.3mmol/L Test 11/25/16 02:08 11/25/16 04:00 11/25/16 05:50 11/25/16 05:55 Sodium Level 143mmol/L 145mmol/L Potassium Level 3.9mmol/L 3.4mmol/L Chloride Level 108mmol/L 108mmol/L Carbon Dioxide Level 22mmol/L 20mmol/L Anion Gap 13 17 Blood Urea Nitrogen 32mg/dL 33mg/dL Creatinine 1.7mg/dL 1.8mg/dL Estimated GFR (Cockcroft-Gault) 39.9 37.4 Glucose Level 140mg/dL 194mg/dL Calcium Level 7.3mg/dL 7.2mg/dL Phosphorus Level 3.9mg/dL 4.4mg/dL Magnesium Level 1.4mg/dL 1.4mg/dL Troponin I Quantitative 4.772ng/mL 3.798ng/mL Activated Partial Thromboplast Time > 150SEC Heparin Anti-Xa Act, Unfractionated > 1.10IU/mL White Blood Count 13.9x10^3/uL Red Blood Count 3.79x10^6/uL Hemoglobin 11.3g/dL Hematocrit 34.0% Mean Corpuscular Volume 90fL Mean Corpuscular Hemoglobin 30pg Mean Corpuscular Hemoglobin Concent 33g/dL Red Cell Distribution Width 13.9% Platelet Count 96x10^3/uL Prothrombin Time 19.9SEC Prothromb Time International Ratio 1.8 Lactic Acid Level 1.8mmol/L Total Bilirubin 0.5mg/dL Direct Bilirubin 0.2mg/dL Aspartate Amino Transf (AST/SGOT) 316U/L Alanine Aminotransferase (ALT/SGPT) 500U/L Alkaline Phosphatase 76U/L Total Protein 5.5g/dL Albumin 2.7g/dL Lipase 73U/L O2 Saturation 98% Arterial Blood pH 7.35 Arterial Blood pH (Temp corrected) 7.37 Arterial Blood pCO2 at Patient Temp 39mmHg Arterial Blood pCO2 (Temp correct) 36mmHg Arterial Blood pO2 at Patient Temp 125mmHg Arterial Blood pO2 (Temp corrected) 114mmHg Arterial Blood HCO3 21mmol/L Arterial Blood Base Excess -4mmol/L Methemoglobin 0.2% Carbon Monoxide, Quantitative 0.3% FiO2 70 Test 11/25/16 10:00 11/25/16 12:15 Activated Partial Thromboplast Time > 150SEC > 150SEC Heparin Anti-Xa Act, Unfractionated > 1.10IU/mL Sodium Level 144mmol/L 143mmol/L Potassium Level 4.5mmol/L 4.4mmol/L Chloride Level 107mmol/L 107mmol/L Carbon Dioxide Level 24mmol/L 24mmol/L Anion Gap 13 12 Blood Urea Nitrogen 33mg/dL 33mg/dL Creatinine 1.7mg/dL 1.8mg/dL Estimated GFR (Cockcroft-Gault) 39.9 37.4 Glucose Level 136mg/dL 118mg/dL Calcium Level 7.1mg/dL 7.0mg/dL Phosphorus Level 4.9mg/dL 4.5mg/dL Magnesium Level 1.4mg/dL 1.2mg/dL Creatine Kinase 2247U/L Troponin I Quantitative 2.508ng/mL 2.233ng/mL Imaging: Venous BLE 11/24/16 <Conclusion> Suspect deep venous thrombi in the bilateral popliteal segments of the lower extremities with more proximal extension to the mid superficial femoral vein on the right side. Bilateral lower extremity below-knee venous structures were not well-visualized. Abd US 11/24/16 IMPRESSION: 1. Cholelithiasis. 2. Hepatomegaly with increased hepatic echogenicity compatible with hepatic steatosis. 3. Left renal cyst. CXR 11/25/16 IMPRESSION: 1. Stable tube positions. 2. Cardiomegaly. 3. Minimal right basilar atelectasis. PE: GEN: intubated LUNGS: on vent HEART: bradycardic ABD: quiet, soft NEURO/PSYCH: sedated A/P: Cardiac arrest, DVT Lactic acidosis, leukocytosis - improved Transaminitis - worse Diarrhea, possible ischemic bowel -C Diff, hemoccult neg, diarrhea slowing -has rectal tube -- Continue supportive care. YAMEL CUEVSA Nov 25, 2016 13:08
[2016-11-25 13:12] LABS: BILIRUBIN,URINE NEGATIVE (NEG); GLUCOSE,URINE NEGATIVE (NEG); NITRITE,URINE NEGATIVE (NEG); PROTEIN,URINE 30 mg/dL (NEG-TRACE); UROBILINOGEN,URINE 0.2 mg/dL (0.2 mg/dL)
[2016-11-25 13:29] LABS: BACTERIA,URINE FEW /HPF (0-FEW); RBC,URINE TNTC /HPF (0-2)
--- NOTE | 2016-11-25 14:14 | RAD ---
Procedure: Central line placement at the bedside Clinical Indication: 71-year-old requiring central venous access Sedation: Local anesthesia only Antibiotics: None Fluoro Time: Not applicable Contrast: None Sterility: All elements of maximal sterile barrier technique including the use of a cap, mask, sterile gown, sterile gloves, large sterile sheet, appropriate hand hygiene, and 2% chlorhexidine for cutaneous antisepsis (or acceptable alternative antiseptic per current guidelines) were followed for this procedure. Consent: The procedure was explained in its entirety to the patient or the patients designated outside sales representative by a member of the treatment team, including a discussion of the risks, benefits and commonly accepted alternatives to the procedure, as well as the expected consequences of no therapy whatsoever. Discussion of the risks included, but was not limited to, those that are most frequent and those that are rare but possibly severe or life-threatening, as well as the possibility of unforeseen complications. Technique and Findings: Following informed consent, the patient was prepped and draped in the usual sterile fashion. Ultrasound interrogation of the right neck revealed patency and compressibility of the right internal jugular vein. A hardcopy ultrasound image was recorded. A 21-gauge micropuncture needle was used to gain access to this vein after local anesthesia was achieved with 1% Lidocaine. The needle was exchanged over the wire for a small dilator followed by a triple lumen central line. All 3 lumens flushed and aspirated with ease. The catheter was sutured to the skin and a chest x-ray was obtained to assess for line position. Complications: None Impression: 1. Central venous catheter placement as described.
--- NOTE | 2016-11-25 14:20 | RAD ---
Indication IJ catheter placement. Single view of the chest was obtained at 1322 and is compared to a study approximately 7 hours earlier. Endotracheal tube remains appropriately positioned above the stephanie. Nasogastric tube is seen with its tip beyond the GE junction. Relative to the previous exam a right IJ catheter has been placed. The tip is in the mid to distal SVC. No complication is seen associated with the catheter placement and specifically there is no evidence of pneumothorax. A new finding in the chest is not seen. IMPRESSION: Interval placement of right IJ catheter. No complication seen
[2016-11-25 14:21] LABS: FIO2 ABG 60; HCO3 ABG 20 mmol/L (21-28); PCO2 ABG 39 mmHg (35-46); PH ABG 7.34 (7.35-7.45); PO2 ABG 93 mmHg (65-108); SAT O2 ABG 96 % (92-99)
[2016-11-25 16:01] LABS: HEMATOCRIT 30.6 % (39.0-53.0); HEMOGLOBIN 10.3 g/dL (13.0-17.5); RED BLOOD COUNT 3.45 x10^6/uL (4.30-5.70); RED CELL DISTRIBUTION WIDTH 14.2 % (11.5-14.5); WHITE BLOOD COUNT 11.6 x10^3/uL (4.0-11.0)
[2016-11-25 16:20] LABS: CALCIUM 7.1 mg/dL (8.5-10.1); CREATININE 1.8 mg/dL (0.7-1.3); GFR 37.4; MAGNESIUM 1.8 mg/dL (1.8-2.4); PHOSPHORUS 4.4 mg/dL (2.6-4.7); POTASSIUM 3.9 mmol/L (3.5-5.1)
[2016-11-25 16:21] LABS: CHOLESTEROL/HDL RATIO 1.6
[2016-11-25 16:45] LABS: INR 1.9 (0.8-1.1); PROTHROMBIN TIME PATIENT 20.5 SEC (11.7-14.0)
[2016-11-25 20:18] LABS: CALCIUM 7.1 mg/dL (8.5-10.1); CREATININE 1.8 mg/dL (0.7-1.3); GFR 37.4; MAGNESIUM 1.8 mg/dL (1.8-2.4); PHOSPHORUS 4.7 mg/dL (2.6-4.7); POTASSIUM 3.9 mmol/L (3.5-5.1)
[2016-11-25] MEDS: CHLORHEXIDINE 0.12% 15 ML MOUTHWASH. MM SCH (21:00)
[2016-11-25 22:03] LABS: BODY TEMP ABG 96.9 DEG; CORRECTED PCO2 ABG 30 mmHg; CORRECTED PH ABG 7.42; CORRECTED PO2 ABG 89 mmHg; HCO3 ABG 19 mmol/L (21-28); PCO2 ABG 31 mmHg (35-46); PO2 ABG 94 mmHg (65-108); SAT O2 ABG 96 % (92-99)
[2016-11-25 22:15] LABS: HEMATOCRIT 27.9 % (39.0-53.0); HEMOGLOBIN 9.5 g/dL (13.0-17.5); RED BLOOD COUNT 3.13 x10^6/uL (4.30-5.70); RED CELL DISTRIBUTION WIDTH 14.2 % (11.5-14.5); WHITE BLOOD COUNT 10.8 x10^3/uL (4.0-11.0)
[2016-11-25 22:25] LABS: INR 1.6 (0.8-1.1); PROTHROMBIN TIME PATIENT 18.2 SEC (11.7-14.0)
[2016-11-25] MEDS ORDERED: MIDAZOLAM PREMIX 100 ML IV PRN (23:30)
[2016-11-25] MEDS ORDERED: DEXTROSE 50% 25 GM / 50ML DISP.SYRIN. IV PRN (23:30)
[2016-11-25] MEDS: ACETAMINOPHEN 650 MG SUPP.RECT. PR PRN (23:36)
[2016-11-25] MEDS: FAMOTIDINE 20 MG/2 ML VIAL IVP SCH (23:55)
[2016-11-26] VITALS (26 sets, daily range): BP systolic 74–169; BP diastolic 35–58
[2016-11-26 00:53] LABS: CALCIUM 6.9 mg/dL (8.5-10.1); GFR 33.1; MAGNESIUM 1.7 mg/dL (1.8-2.4); PHOSPHORUS 5.2 mg/dL (2.6-4.7); POTASSIUM 3.8 mmol/L (3.5-5.1)
--- NOTE | 2016-11-26 02:54 | CONS ---
DATE OF CONSULTATION: 11/25/2016 REQUESTING PHYSICIAN: Dr. Salcedo. REASON FOR CONSULTATION: Status post cardiac arrest, antibiotic management. HISTORY OF PRESENT ILLNESS: This is a 71-year-old gentleman who is very active, [facility] In the morning, he was leaning over the ____ telling his son that he was going to pass out. He actually did pass out after that and EMS was called. The patient arrived within 15-20 minutes and the patient was in VT/VF arrest. The patient was initiated on CPR. The patient subsequently required shocking here. The patient is intubated currently, undergoing hypothermia protocol. The patient also had a lactic acid of 20. The patient was found to have DVT in the leg and suspected PE as well as ischemic bowel. The patient is currently on a ventilator, undergoing hypothermia protocol in ICU. The patient did receive vancomycin and Zosyn. The patient is not able to provide any information. All the information was obtained through chart review and discussing with patient's nurse. PAST MEDICAL HISTORY: Positive for history of diabetes and hyperlipidemia. The patient does have a cardiac history. SOCIAL HISTORY: Negative for smoking, alcohol or illicit drug use. ALLERGIES: No known drug allergies. CURRENT MEDICATIONS: Reviewed. REVIEW OF SYSTEMS: As per the HPI, unable to do through the patient. PHYSICAL EXAMINATION: GENERAL: Sedated, orally intubated, undergoing hypothermia protocol gentleman, not in any distress. VITAL SIGNS: Stable except hypothermic. HEENT: Both pupils are round and reacting. No conjunctival lesion. No lesion in the mouth. NECK: Supple, no JVP, no lymphadenopathy. LUNGS: Clear. HEART: S1, S2 regular. ABDOMEN: Benign. EXTREMITIES: No edema or cyanosis. SKIN: Unremarkable. NEUROLOGIC: The patient is neurologically unable to weft straightener. LABORATORY DATA: White count is 13,000. BUN 33, creatinine 1.9, ALT 500, AST 316. Lactic acid was up to 20.3. C. diff is done, negative. Chest x-ray, other than cardiomegaly, unremarkable. Lower extremity Doppler showed DVT. IMPRESSION: 1. Status post ventricular tachycardia, ventricular fibrillation cardiac arrest requiring cardiopulmonary resuscitation. The patient is undergoing hypothermia protocol. 2. Respiratory failure secondary to status post ventricular tachycardia, ventricular fibrillation cardiac arrest requiring cardiopulmonary resuscitation. 3. Deep venous thrombosis with suspected pulmonary embolism. 4. Suspected ischemic bowel. 5. Severe lactic acidosis. 6. Leukocytosis, likely reactive. PLAN: Recommend supportive care. We will discontinue vancomycin, continue Zosyn for now. Overall prognosis is guarded. Thank you very much, Dr. Salcedo for giving me the opportunity to participate in this patient's care. DANI DIAMOND MD DR: CAROL/mariajose JOB#: [id number] / [id number]
[2016-11-26] MEDS: EPINEPHRINE VIAL 4 MG in IV NORMAL SALINE 250ML 250 ML IV PRN (03:05)
[2016-11-26] MEDS: SODIUM BICARBONATE VIAL 50 MEQ in IV 1/2 NORMAL SALINE 1,000 ML IV SCH ×2 (03:29→11:24)
--- NOTE | 2016-11-26 03:34 | CONS ---
DATE OF CONSULTATION: REASON FOR CONSULTATION: Elevated creatinine, acute versus chronic renal insufficiency. HISTORY OF PRESENT ILLNESS: The patient is a 71-year-old gentleman who gets his care at [facility]. He apparently was [facility] and had a feeling of weakness. His son witnessed him being uncomfortable and was brought to the ER by EMS. He apparently was talking to EMS, but had a cardiac arrest, on arrival to the ER, CPR was started. He is now on hypothermia protocol. His creatinine on arrival was 1.6, went down to 1.4. Sodium was as high as 156. Home list of medications is not available. Lactate was 20 and has now normalized. We were asked to see him for elevated creatinine of 1.8. In talking to his daughter, it does not appear that he has had renal insufficiency. His echo now shows an EF of 35-40% with severe hypokinesis in the basal inferior and inferolateral bautista. RV systolic function is mildly reduced also. Renal ultrasound was reviewed and is grossly negative. Chest x-ray is not revealing for fluid overload. He has a femoral line placed as part of the code. Past medical history, etc., as reviewed in electronic renal consult note. See details. ASHLEY DIAMOND MD DR: HOLLIE/mariajose JOB#: [id number] / [id number]
[2016-11-26] MEDS: MAGNESIUM SULFATE 2GM 50 ML IV PRN ×2 (03:52→05:29)
[2016-11-26 05:45] LABS: ALBUMIN 2.1 g/dL (3.4-5.0); CALCIUM 6.6 mg/dL (8.5-10.1); CREATININE 2.2 mg/dL (0.7-1.3); GFR 29.7; PHOSPHORUS 6.6 mg/dL (2.6-4.7); POTASSIUM 3.5 mmol/L (3.5-5.1)
[2016-11-26] MEDS: HEPARIN for IV BOLUS 10,000 UNIT/10 ML VIAL. IV PRN ×2 (06:10→12:08)
[2016-11-26 07:34] LABS: INR 1.5 (0.8-1.1)
--- NOTE | 2016-11-26 07:34 | RAD ---
Renal ultrasound, 11/25/2016: History: Acute and chronic renal failure The right kidney measures 10.1 cm in length while the left kidney measures 11 cm. There is no evidence of hydronephrosis. The left renal cyst identified on yesterday's abdominal ultrasound is not clearly seen on the current exam, probably due to overlying bowel. The renal parenchymal echogenicity appears to be within normal limits. No abnormal perinephric process is seen. The bladder is not adequately visualized due to decompression by Pal catheter. IMPRESSION: No significant renal abnormality is detected.
[2016-11-26] MEDS: PROPOFOL 100 ML IV PRN (07:38)
[2016-11-26] MEDS: ANTI-COAG MONITOR BY PHARMACY. MC PRN ×2 (07:38→12:58)
[2016-11-26] MEDS: PIPERACILLIN/TAZOBACTAM 3.375 GM in IV NORMAL SALINE 50ML 50 ML IV SCH ×3 (07:39→17:19)
[2016-11-26] MEDS: FENTANYL STANDARD PCA 30 ML IV PRN (07:40)
--- NOTE | 2016-11-26 07:40 | RAD ---
Portable chest, 11/26/2016: History: Low blood pressure, check ET tube Comparison is made to yesterday's study. The ET tube tip lies 3 to 4 cm above the stephanie. An NG tube extends into the stomach. The right jugular central venous catheter extends into the superior vena cava. The heart is enlarged. The pulmonary vascularity is within normal limits. No pulmonary infiltrate is seen. There is no evidence of pneumothorax or definite pleural fluid. There is smooth pleural thickening over the right apex. IMPRESSION: 1. Stable tube positions. 2. Mild cardiomegaly.
[2016-11-26 07:45] LABS: HEMATOCRIT 24.3 % (39.0-53.0); HEMOGLOBIN 8.1 g/dL (13.0-17.5); RED BLOOD COUNT 2.69 x10^6/uL (4.30-5.70); RED CELL DISTRIBUTION WIDTH 13.9 % (11.5-14.5); WHITE BLOOD COUNT 13.7 x10^3/uL (4.0-11.0)
[2016-11-26 07:48] LABS: ALBUMIN 2.2 g/dL (3.4-5.0); DIRECT BILIRUBIN 0.2 mg/dL (0.0-0.2); TOTAL BILIRUBIN 0.6 mg/dL (0.2-1.0); TOTAL PROTEIN 4.7 g/dL (6.4-8.2)
[2016-11-26] MEDS: CHLORHEXIDINE 0.12% 15 ML MOUTHWASH. MM SCH (08:37)
[2016-11-26] MEDS: ACETAMINOPHEN 650 MG SUPP.RECT. PR PRN (08:37)
--- NOTE | 2016-11-26 08:37 | PDOC ---
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 SKIN: No rash IV: ok Labs Lab Laboratory Tests Test 11/25/16 08:47 11/25/16 10:00 11/25/16 10:01 11/25/16 11:12 Glucose (Fingerstick) 99mg/dL (70-99) 127mg/dL (70-99) 97mg/dL (70-99) Activated Partial Thromboplast Time > 150SEC (24-38) Heparin Anti-Xa Act, Unfractionated > 1.10IU/mL (0.30-0.70) Sodium Level 144mmol/L (136-145) Potassium Level 4.5mmol/L (3.5-5.1) Chloride Level 107mmol/L (98-107) Carbon Dioxide Level 24mmol/L (21-32) Anion Gap 13 (6-14) Blood Urea Nitrogen 33mg/dL (8-26) Creatinine 1.7mg/dL (0.7-1.3) Estimated GFR (Cockcroft-Gault) 39.9 Glucose Level 136mg/dL (70-99) Calcium Level 7.1mg/dL (8.5-10.1) Phosphorus Level 4.9mg/dL (2.6-4.7) Magnesium Level 1.4mg/dL (1.8-2.4) Creatine Kinase 2247U/L (39-308) Troponin I Quantitative 2.508ng/mL (0.000-0.055) Test 11/25/16 12:15 11/25/16 12:23 11/25/16 12:55 11/25/16 13:46 Activated Partial Thromboplast Time > 150SEC (24-38) Sodium Level 143mmol/L (136-145) Potassium Level 4.4mmol/L (3.5-5.1) Chloride Level 107mmol/L (98-107) Carbon Dioxide Level 24mmol/L (21-32) Anion Gap 12 (6-14) Blood Urea Nitrogen 33mg/dL (8-26) Creatinine 1.8mg/dL (0.7-1.3) Estimated GFR (Cockcroft-Gault) 37.4 Glucose Level 118mg/dL (70-99) Calcium Level 7.0mg/dL (8.5-10.1) Phosphorus Level 4.5mg/dL (2.6-4.7) Magnesium Level 1.2mg/dL (1.8-2.4) Troponin I Quantitative 2.233ng/mL (0.000-0.055) Glucose (Fingerstick) 107mg/dL (70-99) 98mg/dL (70-99) Urine Collection Type Unknown Urine Color Red Urine Clarity Turbid Urine pH 5.0 Urine Specific [place] 1.020 Urine Protein 30mg/dL (NEG-TRACE) Urine Glucose (UA) Negativemg/dL (NEG) Urine Ketones (Stick) Tracemg/dL (NEG) Urine Blood Large (NEG) Urine Nitrite Negative (NEG) Urine Bilirubin Negative (NEG) Urine Urobilinogen Dipstick 0.2mg/dL (0.2 mg/dL) Urine Leukocyte Esterase Moderate (NEG) Urine RBC Tntc/HPF (0-2) Urine WBC 5-10/HPF (0-4) Urine Bacteria Few/HPF (0-FEW) Urine Random Creatinine 90.9mg/dL (Not Estab.) Urine Random Sodium 28mmol/L (Not Estab.) Test 11/25/16 14:00 11/25/16 14:50 11/25/16 15:45 11/25/16 15:48 O2 Saturation 96% (92-99) Arterial Blood pH 7.34 (7.35-7.45) Arterial Blood pCO2 at Patient Temp 39mmHg (35-46) Arterial Blood pO2 at Patient Temp 93mmHg (65-108) Arterial Blood HCO3 20mmol/L (21-28) Arterial Blood Base Excess -5mmol/L (-3-3) FiO2 60 Glucose (Fingerstick) 95mg/dL (70-99) 106mg/dL (70-99) Lactic Acid Level 1.5mmol/L (0.4-2.0) Test 11/25/16 15:55 11/25/16 16:58 11/25/16 18:29 11/25/16 18:45 White Blood Count 11.6x10^3/uL (4.0-11.0) Red Blood Count 3.45x10^6/uL (4.30-5.70) Hemoglobin 10.3g/dL (13.0-17.5) Hematocrit 30.6% (39.0-53.0) Mean Corpuscular Volume 89fL (79-100) Mean Corpuscular Hemoglobin 30pg (25-35) Mean Corpuscular Hemoglobin Concent 34g/dL (31-37) Red Cell Distribution Width 14.2% (11.5-14.5) Platelet Count 78x10^3/uL (140-400) Prothrombin Time 20.5SEC (11.7-14.0) Prothromb Time International Ratio 1.9 (0.8-1.1) Activated Partial Thromboplast Time > 150SEC (24-38) Heparin Anti-Xa Act, Unfractionated > 1.10IU/mL (0.30-0.70) Sodium Level 143mmol/L (136-145) Potassium Level 3.9mmol/L (3.5-5.1) 3.6mmol/L (3.5-5.1) Chloride Level 106mmol/L (98-107) Carbon Dioxide Level 23mmol/L (21-32) Anion Gap 14 (6-14) Blood Urea Nitrogen 33mg/dL (8-26) Creatinine 1.8mg/dL (0.7-1.3) Estimated GFR (Cockcroft-Gault) 37.4 Glucose Level 116mg/dL (70-99) Calcium Level 7.1mg/dL (8.5-10.1) Phosphorus Level 4.4mg/dL (2.6-4.7) Magnesium Level 1.8mg/dL (1.8-2.4) Troponin I Quantitative 1.764ng/mL (0.000-0.055) Glucose (Fingerstick) 105mg/dL (70-99) 110mg/dL (70-99) Test 11/25/16 19:38 11/25/16 19:55 11/25/16 20:55 11/25/16 21:59 Glucose (Fingerstick) 92mg/dL (70-99) 90mg/dL (70-99) 109mg/dL (70-99) Activated Partial Thromboplast Time > 150SEC (24-38) Sodium Level 142mmol/L (136-145) Potassium Level 3.9mmol/L (3.5-5.1) Chloride Level 105mmol/L (98-107) Carbon Dioxide Level 23mmol/L (21-32) Anion Gap 14 (6-14) Blood Urea Nitrogen 34mg/dL (8-26) Creatinine 1.8mg/dL (0.7-1.3) Estimated GFR (Cockcroft-Gault) 37.4 Glucose Level 118mg/dL (70-99) Calcium Level 7.1mg/dL (8.5-10.1) Phosphorus Level 4.7mg/dL (2.6-4.7) Magnesium Level 1.8mg/dL (1.8-2.4) Troponin I Quantitative 1.690ng/mL (0.000-0.055) Test 11/25/16 22:00 11/25/16 22:05 11/26/16 00:00 11/26/16 04:55 O2 Saturation 96% (92-99) Arterial Blood pH 7.40 (7.35-7.45) Arterial Blood pH (Temp corrected) 7.42 Arterial Blood pCO2 at Patient Temp 31mmHg (35-46) Arterial Blood pCO2 (Temp correct) 30mmHg Arterial Blood pO2 at Patient Temp 94mmHg (65-108) Arterial Blood pO2 (Temp corrected) 89mmHg Arterial Blood HCO3 19mmol/L (21-28) Arterial Blood Base Excess -5mmol/L (-3-3) White Blood Count 10.8x10^3/uL (4.0-11.0) 13.7x10^3/uL (4.0-11.0) Red Blood Count 3.13x10^6/uL (4.30-5.70) 2.69x10^6/uL (4.30-5.70) Hemoglobin 9.5g/dL (13.0-17.5) 8.1g/dL (13.0-17.5) Hematocrit 27.9% (39.0-53.0) 24.3% (39.0-53.0) Mean Corpuscular Volume 89fL (79-100) 90fL (79-100) Mean Corpuscular Hemoglobin 30pg (25-35) 30pg (25-35) Mean Corpuscular Hemoglobin Concent 34g/dL (31-37) 34g/dL (31-37) Red Cell Distribution Width 14.2% (11.5-14.5) 13.9% (11.5-14.5) Platelet Count 81x10^3/uL (140-400) 107x10^3/uL (140-400) Prothrombin Time 18.2SEC (11.7-14.0) 17.0SEC (11.7-14.0) Prothromb Time International Ratio 1.6 (0.8-1.1) 1.5 (0.8-1.1) Heparin Anti-Xa Act, Unfractionated > 1.10IU/mL (0.30-0.70) 0.24IU/mL (0.30-0.70) Lactic Acid Level 1.2mmol/L (0.4-2.0) Sodium Level 141mmol/L (136-145) 144mmol/L (136-145) Potassium Level 3.8mmol/L (3.5-5.1) 3.5mmol/L (3.5-5.1) Chloride Level 104mmol/L (98-107) 105mmol/L (98-107) Carbon Dioxide Level 23mmol/L (21-32) 20mmol/L (21-32) Anion Gap 14 (6-14) 19 (6-14) Blood Urea Nitrogen 36mg/dL (8-26) 36mg/dL (8-26) Creatinine 2.0mg/dL (0.7-1.3) 2.2mg/dL (0.7-1.3) Estimated GFR (Cockcroft-Gault) 33.1 29.7 Glucose Level 120mg/dL (70-99) 194mg/dL (70-99) Calcium Level 6.9mg/dL (8.5-10.1) 6.6mg/dL (8.5-10.1) Phosphorus Level 5.2mg/dL (2.6-4.7) 6.6mg/dL (2.6-4.7) Magnesium Level 1.7mg/dL (1.8-2.4) 1.6mg/dL (1.8-2.4) Troponin I Quantitative 1.387ng/mL (0.000-0.055) 1.168ng/mL (0.000-0.055) Activated Partial Thromboplast Time 82SEC (24-38) Total Bilirubin 0.6mg/dL (0.2-1.0) Direct Bilirubin 0.2mg/dL (0.0-0.2) Aspartate Amino Transf (AST/SGOT) 117U/L (15-37) Alanine Aminotransferase (ALT/SGPT) 278U/L (16-63) Alkaline Phosphatase 58U/L (46-116) Total Protein 4.7g/dL (6.4-8.2) Albumin 2.1g/dL (3.4-5.0) Test 11/26/16 05:26 Glucose (Fingerstick) 158mg/dL (70-99) Objective Assessment S/P VT/VF Cardiac arrest, on hypothermia protocol DVT suspected PE Suspected ischemic bowel Lactic acidosis Leukocytosis likely reactive Plan Plan of Care supportive care cont zosyn for now d/w and son DANI DIAMOND MD Nov 26, 2016 08:37
[2016-11-26] MEDS: INSULIN ASPART 300 UNITS/3 ML INSULN.PEN SQ SCH ×3 (08:38→17:00)
[2016-11-26 08:44] LABS: HCO3 ABG 16 mmol/L (21-28); PCO2 ABG 31 mmHg (35-46); PH ABG 7.32 (7.35-7.45); PO2 ABG 130 mmHg (65-108); SAT O2 ABG 98 % (92-99)
[2016-11-26] MEDS ORDERED: ELECTROLYTE (ICU) PROTOCOL. MC PRN (08:45)
[2016-11-26 08:48] LABS: FIO2 ABG 60
[2016-11-26] MEDS: ASPIRIN 300 MG SUPP.RECT PR SCH (08:57)
--- NOTE | 2016-11-26 09:35 | PDOC ---
PULMONARY PROGRESS NOTES Subjective OFF SEDATION FOLLOW COMMANDS Vitals Vital Signs Date Time Temp Pulse Resp B/P Pulse Ox O2 Delivery O2 Flow Rate FiO2 11/26/16 09:03 97 Ventilator 11/26/16 09:00 97 11 100/53 11/26/16 08:00 99.2 99.2 General: Alert Lungs: Clear Cardiovascular: S1, S2 Abdomen: Soft Neuro Exam: Alert Extremities: No Edema Skin: Warm Labs Laboratory Tests Test 11/24/16 09:45 11/24/16 10:17 11/24/16 11:10 11/24/16 11:17 White Blood Count 18.6x10^3/uL (4.0-11.0) Red Blood Count 3.86x10^6/uL (4.30-5.70) Hemoglobin 11.7g/dL (13.0-17.5) Hematocrit 35.7% (39.0-53.0) Mean Corpuscular Volume 93fL (79-100) Mean Corpuscular Hemoglobin 30pg (25-35) Mean Corpuscular Hemoglobin Concent 33g/dL (31-37) Red Cell Distribution Width 14.1% (11.5-14.5) Platelet Count 142x10^3/uL (140-400) Neutrophils (%) (Auto) 78% (31-73) Lymphocytes (%) (Auto) 18% (24-48) Monocytes (%) (Auto) 2% (0-9) Eosinophils (%) (Auto) 2% (0-3) Basophils (%) (Auto) 0% (0-3) Neutrophils # (Auto) 14.6x10^3uL (1.8-7.7) Lymphocytes # (Auto) 3.3x10^3/uL (1.0-4.8) Monocytes # (Auto) 0.3x10^3/uL (0.0-1.1) Eosinophils # (Auto) 0.3x10^3/uL (0.0-0.7) Basophils # (Auto) 0.0x10^3/uL (0.0-0.2) Segmented Neutrophils % 56% (35-66) Band Neutrophils % 19% (0-9) Lymphocytes % 17% (24-48) Eosinophils % 5% (0-5) Metamyelocytes % 1% (0-0) Myelocytes % 2% (0-0) Platelet Estimate Adequate (ADEQUATE) [place] Cells Few Nasal Screen MRSA (PCR) Negative (Negative) Sodium Level 146mmol/L (136-145) Potassium Level 4.5mmol/L (3.5-5.1) Chloride Level 109mmol/L (98-107) Carbon Dioxide Level 18mmol/L (21-32) Anion Gap 19 (6-14) Blood Urea Nitrogen 27mg/dL (8-26) Creatinine 1.8mg/dL (0.7-1.3) Estimated GFR (Cockcroft-Gault) 37.4 Glucose Level 317mg/dL (70-99) Lactic Acid Level 10.0mmol/L (0.4-2.0) Calcium Level 7.6mg/dL (8.5-10.1) Phosphorus Level 8.3mg/dL (2.6-4.7) Magnesium Level 2.1mg/dL (1.8-2.4) Glucose (Fingerstick) 269mg/dL (70-99) 262mg/dL (70-99) O2 Saturation 99% (92-99) Arterial Blood pH 7.27 (7.35-7.45) Arterial Blood pCO2 at Patient Temp 38mmHg (35-46) Arterial Blood pO2 at Patient Temp 201mmHg (65-108) Arterial Blood HCO3 17mmol/L (21-28) Arterial Blood Base Excess -9mmol/L (-3-3) Oxyhemoglobin 98.1% Methemoglobin 0.2% (0.0-1.9) Carbon Monoxide, Quantitative 0.3% (0.0-1.9) FiO2 100 Test 11/24/16 12:30 11/24/16 13:39 11/24/16 14:47 11/24/16 15:15 Glucose (Fingerstick) 252mg/dL (70-99) 221mg/dL (70-99) 162mg/dL (70-99) Clostridium difficile Toxin (PCR) Negative (Negative) Test 11/24/16 15:50 11/24/16 16:10 11/24/16 17:00 11/24/16 17:22 Sodium Level 147mmol/L (136-145) Potassium Level 3.2mmol/L (3.5-5.1) Chloride Level 111mmol/L (98-107) Carbon Dioxide Level 22mmol/L (21-32) Anion Gap 14 (6-14) Blood Urea Nitrogen 29mg/dL (8-26) Creatinine 1.7mg/dL (0.7-1.3) Estimated GFR (Cockcroft-Gault) 39.9 Glucose Level 128mg/dL (70-99) Calcium Level 7.7mg/dL (8.5-10.1) Phosphorus Level 2.5mg/dL (2.6-4.7) Magnesium Level 1.7mg/dL (1.8-2.4) Troponin I Quantitative 4.950ng/mL (0.000-0.055) Glucose (Fingerstick) 117mg/dL (70-99) 94mg/dL (70-99) Stool Occult Blood Negative (NEG) Test 11/24/16 18:34 11/24/16 19:40 11/24/16 20:47 11/24/16 21:56 Glucose (Fingerstick) 98mg/dL (70-99) 126mg/dL (70-99) 127mg/dL (70-99) 131mg/dL (70-99) Test 11/24/16 22:10 11/24/16 23:00 11/25/16 00:14 11/25/16 01:19 White Blood Count 15.4x10^3/uL (4.0-11.0) Red Blood Count 3.98x10^6/uL (4.30-5.70) Hemoglobin 11.8g/dL (13.0-17.5) Hematocrit 36.3% (39.0-53.0) Mean Corpuscular Volume 91fL (79-100) Mean Corpuscular Hemoglobin 30pg (25-35) Mean Corpuscular Hemoglobin Concent 33g/dL (31-37) Red Cell Distribution Width 13.6% (11.5-14.5) Platelet Count 94x10^3/uL (140-400) Activated Partial Thromboplast Time > 150SEC (24-38) Heparin Anti-Xa Act, Unfractionated > 1.10IU/mL (0.30-0.70) Sodium Level 147mmol/L (136-145) Potassium Level 3.8mmol/L (3.5-5.1) Chloride Level 108mmol/L (98-107) Carbon Dioxide Level 25mmol/L (21-32) Anion Gap 14 (6-14) Blood Urea Nitrogen 32mg/dL (8-26) Creatinine 1.8mg/dL (0.7-1.3) Estimated GFR (Cockcroft-Gault) 37.4 Glucose Level 154mg/dL (70-99) Lactic Acid Level 3.3mmol/L (0.4-2.0) Calcium Level 7.8mg/dL (8.5-10.1) Phosphorus Level 3.4mg/dL (2.6-4.7) Magnesium Level 1.5mg/dL (1.8-2.4) Troponin I Quantitative 6.690ng/mL (0.000-0.055) Glucose (Fingerstick) 130mg/dL (70-99) 114mg/dL (70-99) 98mg/dL (70-99) Test 11/25/16 02:08 11/25/16 02:21 11/25/16 03:38 11/25/16 04:00 Sodium Level 143mmol/L (136-145) 145mmol/L (136-145) Potassium Level 3.9mmol/L (3.5-5.1) 3.4mmol/L (3.5-5.1) Chloride Level 108mmol/L (98-107) 108mmol/L (98-107) Carbon Dioxide Level 22mmol/L (21-32) 20mmol/L (21-32) Anion Gap 13 (6-14) 17 (6-14) Blood Urea Nitrogen 32mg/dL (8-26) 33mg/dL (8-26) Creatinine 1.7mg/dL (0.7-1.3) 1.8mg/dL (0.7-1.3) Estimated GFR (Cockcroft-Gault) 39.9 37.4 Glucose Level 140mg/dL (70-99) 194mg/dL (70-99) Calcium Level 7.3mg/dL (8.5-10.1) 7.2mg/dL (8.5-10.1) Phosphorus Level 3.9mg/dL (2.6-4.7) 4.4mg/dL (2.6-4.7) Magnesium Level 1.4mg/dL (1.8-2.4) 1.4mg/dL (1.8-2.4) Troponin I Quantitative 4.772ng/mL (0.000-0.055) 3.798ng/mL (0.000-0.055) Glucose (Fingerstick) 101mg/dL (70-99) 128mg/dL (70-99) Activated Partial Thromboplast Time > 150SEC (24-38) Heparin Anti-Xa Act, Unfractionated > 1.10IU/mL (0.30-0.70) Test 11/25/16 04:48 11/25/16 05:49 11/25/16 05:50 11/25/16 05:55 Glucose (Fingerstick) 149mg/dL (70-99) 149mg/dL (70-99) White Blood Count 13.9x10^3/uL (4.0-11.0) Red Blood Count 3.79x10^6/uL (4.30-5.70) Hemoglobin 11.3g/dL (13.0-17.5) Hematocrit 34.0% (39.0-53.0) Mean Corpuscular Volume 90fL (79-100) Mean Corpuscular Hemoglobin 30pg (25-35) Mean Corpuscular Hemoglobin Concent 33g/dL (31-37) Red Cell Distribution Width 13.9% (11.5-14.5) Platelet Count 96x10^3/uL (140-400) Prothrombin Time 19.9SEC (11.7-14.0) Prothromb Time International Ratio 1.8 (0.8-1.1) Lactic Acid Level 1.8mmol/L (0.4-2.0) Total Bilirubin 0.5mg/dL (0.2-1.0) Direct Bilirubin 0.2mg/dL (0.0-0.2) Aspartate Amino Transf (AST/SGOT) 316U/L (15-37) Alanine Aminotransferase (ALT/SGPT) 500U/L (16-63) Alkaline Phosphatase 76U/L (46-116) Total Protein 5.5g/dL (6.4-8.2) Albumin 2.7g/dL (3.4-5.0) Triglycerides Level 57mg/dL (0-150) Cholesterol Level 72mg/dL (0-200) LDL Cholesterol, Calculated 17mg/dL (0-100) VLDL Cholesterol, Calculated 11mg/dL (0-40) HDL Cholesterol 44mg/dL (40-60) Cholesterol/HDL Ratio 1.6 Lipase 73U/L (73-393) O2 Saturation 98% (92-99) Arterial Blood pH 7.35 (7.35-7.45) Arterial Blood pH (Temp corrected) 7.37 Arterial Blood pCO2 at Patient Temp 39mmHg (35-46) Arterial Blood pCO2 (Temp correct) 36mmHg Arterial Blood pO2 at Patient Temp 125mmHg (65-108) Arterial Blood pO2 (Temp corrected) 114mmHg Arterial Blood HCO3 21mmol/L (21-28) Arterial Blood Base Excess -4mmol/L (-3-3) Methemoglobin 0.2% (0.0-1.9) Carbon Monoxide, Quantitative 0.3% (0.0-1.9) FiO2 70 Test 11/25/16 07:48 11/25/16 08:47 11/25/16 10:00 11/25/16 10:01 Glucose (Fingerstick) 106mg/dL (70-99) 99mg/dL (70-99) 127mg/dL (70-99) Activated Partial Thromboplast Time > 150SEC (24-38) Heparin Anti-Xa Act, Unfractionated > 1.10IU/mL (0.30-0.70) Sodium Level 144mmol/L (136-145) Potassium Level 4.5mmol/L (3.5-5.1) Chloride Level 107mmol/L (98-107) Carbon Dioxide Level 24mmol/L (21-32) Anion Gap 13 (6-14) Blood Urea Nitrogen 33mg/dL (8-26) Creatinine 1.7mg/dL (0.7-1.3) Estimated GFR (Cockcroft-Gault) 39.9 Glucose Level 136mg/dL (70-99) Calcium Level 7.1mg/dL (8.5-10.1) Phosphorus Level 4.9mg/dL (2.6-4.7) Magnesium Level 1.4mg/dL (1.8-2.4) Creatine Kinase 2247U/L (39-308) Troponin I Quantitative 2.508ng/mL (0.000-0.055) Test 11/25/16 11:12 11/25/16 12:15 11/25/16 12:23 11/25/16 12:55 Glucose (Fingerstick) 97mg/dL (70-99) 107mg/dL (70-99) Activated Partial Thromboplast Time > 150SEC (24-38) Sodium Level 143mmol/L (136-145) Potassium Level 4.4mmol/L (3.5-5.1) Chloride Level 107mmol/L (98-107) Carbon Dioxide Level 24mmol/L (21-32) Anion Gap 12 (6-14) Blood Urea Nitrogen 33mg/dL (8-26) Creatinine 1.8mg/dL (0.7-1.3) Estimated GFR (Cockcroft-Gault) 37.4 Glucose Level 118mg/dL (70-99) Calcium Level 7.0mg/dL (8.5-10.1) Phosphorus Level 4.5mg/dL (2.6-4.7) Magnesium Level 1.2mg/dL (1.8-2.4) Troponin I Quantitative 2.233ng/mL (0.000-0.055) Urine Collection Type Unknown Urine Color Red Urine Clarity Turbid Urine pH 5.0 Urine Specific Gunpowder 1.020 Urine Protein 30mg/dL (NEG-TRACE) Urine Glucose (UA) Negativemg/dL (NEG) Urine Ketones (Stick) Tracemg/dL (NEG) Urine Blood Large (NEG) Urine Nitrite Negative (NEG) Urine Bilirubin Negative (NEG) Urine Urobilinogen Dipstick 0.2mg/dL (0.2 mg/dL) Urine Leukocyte Esterase Moderate (NEG) Urine RBC Tntc/HPF (0-2) Urine WBC 5-10/HPF (0-4) Urine Bacteria Few/HPF (0-FEW) Urine Random Creatinine 90.9mg/dL (Not Estab.) Urine Random Sodium 28mmol/L (Not Estab.) Test 11/25/16 13:46 11/25/16 14:00 11/25/16 14:50 11/25/16 15:45 Glucose (Fingerstick) 98mg/dL (70-99) 95mg/dL (70-99) O2 Saturation 96% (92-99) Arterial Blood pH 7.34 (7.35-7.45) Arterial Blood pCO2 at Patient Temp 39mmHg (35-46) Arterial Blood pO2 at Patient Temp 93mmHg (65-108) Arterial Blood HCO3 20mmol/L (21-28) Arterial Blood Base Excess -5mmol/L (-3-3) FiO2 60 Lactic Acid Level 1.5mmol/L (0.4-2.0) Test 11/25/16 15:48 11/25/16 15:55 11/25/16 16:58 11/25/16 18:29 Glucose (Fingerstick) 106mg/dL (70-99) 105mg/dL (70-99) 110mg/dL (70-99) White Blood Count 11.6x10^3/uL (4.0-11.0) Red Blood Count 3.45x10^6/uL (4.30-5.70) Hemoglobin 10.3g/dL (13.0-17.5) Hematocrit 30.6% (39.0-53.0) Mean Corpuscular Volume 89fL (79-100) Mean Corpuscular Hemoglobin 30pg (25-35) Mean Corpuscular Hemoglobin Concent 34g/dL (31-37) Red Cell Distribution Width 14.2% (11.5-14.5) Platelet Count 78x10^3/uL (140-400) Prothrombin Time 20.5SEC (11.7-14.0) Prothromb Time International Ratio 1.9 (0.8-1.1) Activated Partial Thromboplast Time > 150SEC (24-38) Heparin Anti-Xa Act, Unfractionated > 1.10IU/mL (0.30-0.70) Sodium Level 143mmol/L (136-145) Potassium Level 3.9mmol/L (3.5-5.1) Chloride Level 106mmol/L (98-107) Carbon Dioxide Level 23mmol/L (21-32) Anion Gap 14 (6-14) Blood Urea Nitrogen 33mg/dL (8-26) Creatinine 1.8mg/dL (0.7-1.3) Estimated GFR (Cockcroft-Gault) 37.4 Glucose Level 116mg/dL (70-99) Calcium Level 7.1mg/dL (8.5-10.1) Phosphorus Level 4.4mg/dL (2.6-4.7) Magnesium Level 1.8mg/dL (1.8-2.4) Troponin I Quantitative 1.764ng/mL (0.000-0.055) Test 11/25/16 18:45 11/25/16 19:38 11/25/16 19:55 11/25/16 20:55 Potassium Level 3.6mmol/L (3.5-5.1) 3.9mmol/L (3.5-5.1) Glucose (Fingerstick) 92mg/dL (70-99) 90mg/dL (70-99) Activated Partial Thromboplast Time > 150SEC (24-38) Sodium Level 142mmol/L (136-145) Chloride Level 105mmol/L (98-107) Carbon Dioxide Level 23mmol/L (21-32) Anion Gap 14 (6-14) Blood Urea Nitrogen 34mg/dL (8-26) Creatinine 1.8mg/dL (0.7-1.3) Estimated GFR (Cockcroft-Gault) 37.4 Glucose Level 118mg/dL (70-99) Calcium Level 7.1mg/dL (8.5-10.1) Phosphorus Level 4.7mg/dL (2.6-4.7) Magnesium Level 1.8mg/dL (1.8-2.4) Troponin I Quantitative 1.690ng/mL (0.000-0.055) Test 11/25/16 21:59 11/25/16 22:00 11/25/16 22:05 11/26/16 00:00 Glucose (Fingerstick) 109mg/dL (70-99) O2 Saturation 96% (92-99) Arterial Blood pH 7.40 (7.35-7.45) Arterial Blood pH (Temp corrected) 7.42 Arterial Blood pCO2 at Patient Temp 31mmHg (35-46) Arterial Blood pCO2 (Temp correct) 30mmHg Arterial Blood pO2 at Patient Temp 94mmHg (65-108) Arterial Blood pO2 (Temp corrected) 89mmHg Arterial Blood HCO3 19mmol/L (21-28) Arterial Blood Base Excess -5mmol/L (-3-3) White Blood Count 10.8x10^3/uL (4.0-11.0) Red Blood Count 3.13x10^6/uL (4.30-5.70) Hemoglobin 9.5g/dL (13.0-17.5) Hematocrit 27.9% (39.0-53.0) Mean Corpuscular Volume 89fL (79-100) Mean Corpuscular Hemoglobin 30pg (25-35) Mean Corpuscular Hemoglobin Concent 34g/dL (31-37) Red Cell Distribution Width 14.2% (11.5-14.5) Platelet Count 81x10^3/uL (140-400) Prothrombin Time 18.2SEC (11.7-14.0) Prothromb Time International Ratio 1.6 (0.8-1.1) Heparin Anti-Xa Act, Unfractionated > 1.10IU/mL (0.30-0.70) Lactic Acid Level 1.2mmol/L (0.4-2.0) Sodium Level 141mmol/L (136-145) Potassium Level 3.8mmol/L (3.5-5.1) Chloride Level 104mmol/L (98-107) Carbon Dioxide Level 23mmol/L (21-32) Anion Gap 14 (6-14) Blood Urea Nitrogen 36mg/dL (8-26) Creatinine 2.0mg/dL (0.7-1.3) Estimated GFR (Cockcroft-Gault) 33.1 Glucose Level 120mg/dL (70-99) Calcium Level 6.9mg/dL (8.5-10.1) Phosphorus Level 5.2mg/dL (2.6-4.7) Magnesium Level 1.7mg/dL (1.8-2.4) Troponin I Quantitative 1.387ng/mL (0.000-0.055) Test 11/26/16 04:55 11/26/16 05:26 11/26/16 08:25 11/26/16 08:30 White Blood Count 13.7x10^3/uL (4.0-11.0) Red Blood Count 2.69x10^6/uL (4.30-5.70) Hemoglobin 8.1g/dL (13.0-17.5) Hematocrit 24.3% (39.0-53.0) Mean Corpuscular Volume 90fL (79-100) Mean Corpuscular Hemoglobin 30pg (25-35) Mean Corpuscular Hemoglobin Concent 34g/dL (31-37) Red Cell Distribution Width 13.9% (11.5-14.5) Platelet Count 107x10^3/uL (140-400) Prothrombin Time 17.0SEC (11.7-14.0) Prothromb Time International Ratio 1.5 (0.8-1.1) Activated Partial Thromboplast Time 82SEC (24-38) Heparin Anti-Xa Act, Unfractionated 0.24IU/mL (0.30-0.70) Sodium Level 144mmol/L (136-145) Potassium Level 3.5mmol/L (3.5-5.1) Chloride Level 105mmol/L (98-107) Carbon Dioxide Level 20mmol/L (21-32) Anion Gap 19 (6-14) Blood Urea Nitrogen 36mg/dL (8-26) Creatinine 2.2mg/dL (0.7-1.3) Estimated GFR (Cockcroft-Gault) 29.7 Glucose Level 194mg/dL (70-99) Calcium Level 6.6mg/dL (8.5-10.1) Phosphorus Level 6.6mg/dL (2.6-4.7) Magnesium Level 1.6mg/dL (1.8-2.4) 2.5mg/dL (1.8-2.4) Total Bilirubin 0.6mg/dL (0.2-1.0) Direct Bilirubin 0.2mg/dL (0.0-0.2) Aspartate Amino Transf (AST/SGOT) 117U/L (15-37) Alanine Aminotransferase (ALT/SGPT) 278U/L (16-63) Alkaline Phosphatase 58U/L (46-116) Troponin I Quantitative 1.168ng/mL (0.000-0.055) Total Protein 4.7g/dL (6.4-8.2) Albumin 2.1g/dL (3.4-5.0) Lipase 57U/L (73-393) Glucose (Fingerstick) 158mg/dL (70-99) 242mg/dL (70-99) O2 Saturation 98% (92-99) Arterial Blood pH 7.32 (7.35-7.45) Arterial Blood pCO2 at Patient Temp 31mmHg (35-46) Arterial Blood pO2 at Patient Temp 130mmHg (65-108) Arterial Blood HCO3 16mmol/L (21-28) Arterial Blood Base Excess -9mmol/L (-3-3) FiO2 60 Laboratory Tests Test 11/25/16 10:00 11/25/16 10:01 11/25/16 11:12 11/25/16 12:15 Activated Partial Thromboplast Time > 150SEC (24-38) > 150SEC (24-38) Heparin Anti-Xa Act, Unfractionated > 1.10IU/mL (0.30-0.70) Sodium Level 144mmol/L (136-145) 143mmol/L (136-145) Potassium Level 4.5mmol/L (3.5-5.1) 4.4mmol/L (3.5-5.1) Chloride Level 107mmol/L (98-107) 107mmol/L (98-107) Carbon Dioxide Level 24mmol/L (21-32) 24mmol/L (21-32) Anion Gap 13 (6-14) 12 (6-14) Blood Urea Nitrogen 33mg/dL (8-26) 33mg/dL (8-26) Creatinine 1.7mg/dL (0.7-1.3) 1.8mg/dL (0.7-1.3) Estimated GFR (Cockcroft-Gault) 39.9 37.4 Glucose Level 136mg/dL (70-99) 118mg/dL (70-99) Calcium Level 7.1mg/dL (8.5-10.1) 7.0mg/dL (8.5-10.1) Phosphorus Level 4.9mg/dL (2.6-4.7) 4.5mg/dL (2.6-4.7) Magnesium Level 1.4mg/dL (1.8-2.4) 1.2mg/dL (1.8-2.4) Creatine Kinase 2247U/L (39-308) Troponin I Quantitative 2.508ng/mL (0.000-0.055) 2.233ng/mL (0.000-0.055) Glucose (Fingerstick) 127mg/dL (70-99) 97mg/dL (70-99) Test 11/25/16 12:23 11/25/16 12:55 11/25/16 13:46 11/25/16 14:00 Glucose (Fingerstick) 107mg/dL (70-99) 98mg/dL (70-99) Urine Collection Type Unknown Urine Color Red Urine Clarity Turbid Urine pH 5.0 Urine Specific Gunpowder 1.020 Urine Protein 30mg/dL (NEG-TRACE) Urine Glucose (UA) Negativemg/dL (NEG) Urine Ketones (Stick) Tracemg/dL (NEG) Urine Blood Large (NEG) Urine Nitrite Negative (NEG) Urine Bilirubin Negative (NEG) Urine Urobilinogen Dipstick 0.2mg/dL (0.2 mg/dL) Urine Leukocyte Esterase Moderate (NEG) Urine RBC Tntc/HPF (0-2) Urine WBC 5-10/HPF (0-4) Urine Bacteria Few/HPF (0-FEW) Urine Random Creatinine 90.9mg/dL (Not Estab.) Urine Random Sodium 28mmol/L (Not Estab.) O2 Saturation 96% (92-99) Arterial Blood pH 7.34 (7.35-7.45) Arterial Blood pCO2 at Patient Temp 39mmHg (35-46) Arterial Blood pO2 at Patient Temp 93mmHg (65-108) Arterial Blood HCO3 20mmol/L (21-28) Arterial Blood Base Excess -5mmol/L (-3-3) FiO2 60 Test 11/25/16 14:50 11/25/16 15:45 11/25/16 15:48 11/25/16 15:55 Glucose (Fingerstick) 95mg/dL (70-99) 106mg/dL (70-99) Lactic Acid Level 1.5mmol/L (0.4-2.0) White Blood Count 11.6x10^3/uL (4.0-11.0) Red Blood Count 3.45x10^6/uL (4.30-5.70) Hemoglobin 10.3g/dL (13.0-17.5) Hematocrit 30.6% (39.0-53.0) Mean Corpuscular Volume 89fL (79-100) Mean Corpuscular Hemoglobin 30pg (25-35) Mean Corpuscular Hemoglobin Concent 34g/dL (31-37) Red Cell Distribution Width 14.2% (11.5-14.5) Platelet Count 78x10^3/uL (140-400) Prothrombin Time 20.5SEC (11.7-14.0) Prothromb Time International Ratio 1.9 (0.8-1.1) Activated Partial Thromboplast Time > 150SEC (24-38) Heparin Anti-Xa Act, Unfractionated > 1.10IU/mL (0.30-0.70) Sodium Level 143mmol/L (136-145) Potassium Level 3.9mmol/L (3.5-5.1) Chloride Level 106mmol/L (98-107) Carbon Dioxide Level 23mmol/L (21-32) Anion Gap 14 (6-14) Blood Urea Nitrogen 33mg/dL (8-26) Creatinine 1.8mg/dL (0.7-1.3) Estimated GFR (Cockcroft-Gault) 37.4 Glucose Level 116mg/dL (70-99) Calcium Level 7.1mg/dL (8.5-10.1) Phosphorus Level 4.4mg/dL (2.6-4.7) Magnesium Level 1.8mg/dL (1.8-2.4) Troponin I Quantitative 1.764ng/mL (0.000-0.055) Test 11/25/16 16:58 11/25/16 18:29 11/25/16 18:45 11/25/16 19:38 Glucose (Fingerstick) 105mg/dL (70-99) 110mg/dL (70-99) 92mg/dL (70-99) Potassium Level 3.6mmol/L (3.5-5.1) Test 11/25/16 19:55 11/25/16 20:55 11/25/16 21:59 11/25/16 22:00 Activated Partial Thromboplast Time > 150SEC (24-38) Sodium Level 142mmol/L (136-145) Potassium Level 3.9mmol/L (3.5-5.1) Chloride Level 105mmol/L (98-107) Carbon Dioxide Level 23mmol/L (21-32) Anion Gap 14 (6-14) Blood Urea Nitrogen 34mg/dL (8-26) Creatinine 1.8mg/dL (0.7-1.3) Estimated GFR (Cockcroft-Gault) 37.4 Glucose Level 118mg/dL (70-99) Calcium Level 7.1mg/dL (8.5-10.1) Phosphorus Level 4.7mg/dL (2.6-4.7) Magnesium Level 1.8mg/dL (1.8-2.4) Troponin I Quantitative 1.690ng/mL (0.000-0.055) Glucose (Fingerstick) 90mg/dL (70-99) 109mg/dL (70-99) O2 Saturation 96% (92-99) Arterial Blood pH 7.40 (7.35-7.45) Arterial Blood pH (Temp corrected) 7.42 Arterial Blood pCO2 at Patient Temp 31mmHg (35-46) Arterial Blood pCO2 (Temp correct) 30mmHg Arterial Blood pO2 at Patient Temp 94mmHg (65-108) Arterial Blood pO2 (Temp corrected) 89mmHg Arterial Blood HCO3 19mmol/L (21-28) Arterial Blood Base Excess -5mmol/L (-3-3) Test 11/25/16 22:05 11/26/16 00:00 11/26/16 04:55 11/26/16 05:26 White Blood Count 10.8x10^3/uL (4.0-11.0) 13.7x10^3/uL (4.0-11.0) Red Blood Count 3.13x10^6/uL (4.30-5.70) 2.69x10^6/uL (4.30-5.70) Hemoglobin 9.5g/dL (13.0-17.5) 8.1g/dL (13.0-17.5) Hematocrit 27.9% (39.0-53.0) 24.3% (39.0-53.0) Mean Corpuscular Volume 89fL (79-100) 90fL (79-100) Mean Corpuscular Hemoglobin 30pg (25-35) 30pg (25-35) Mean Corpuscular Hemoglobin Concent 34g/dL (31-37) 34g/dL (31-37) Red Cell Distribution Width 14.2% (11.5-14.5) 13.9% (11.5-14.5) Platelet Count 81x10^3/uL (140-400) 107x10^3/uL (140-400) Prothrombin Time 18.2SEC (11.7-14.0) 17.0SEC (11.7-14.0) Prothromb Time International Ratio 1.6 (0.8-1.1) 1.5 (0.8-1.1) Heparin Anti-Xa Act, Unfractionated > 1.10IU/mL (0.30-0.70) 0.24IU/mL (0.30-0.70) Lactic Acid Level 1.2mmol/L (0.4-2.0) Sodium Level 141mmol/L (136-145) 144mmol/L (136-145) Potassium Level 3.8mmol/L (3.5-5.1) 3.5mmol/L (3.5-5.1) Chloride Level 104mmol/L (98-107) 105mmol/L (98-107) Carbon Dioxide Level 23mmol/L (21-32) 20mmol/L (21-32) Anion Gap 14 (6-14) 19 (6-14) Blood Urea Nitrogen 36mg/dL (8-26) 36mg/dL (8-26) Creatinine 2.0mg/dL (0.7-1.3) 2.2mg/dL (0.7-1.3) Estimated GFR (Cockcroft-Gault) 33.1 29.7 Glucose Level 120mg/dL (70-99) 194mg/dL (70-99) Calcium Level 6.9mg/dL (8.5-10.1) 6.6mg/dL (8.5-10.1) Phosphorus Level 5.2mg/dL (2.6-4.7) 6.6mg/dL (2.6-4.7) Magnesium Level 1.7mg/dL (1.8-2.4) 1.6mg/dL (1.8-2.4) Troponin I Quantitative 1.387ng/mL (0.000-0.055) 1.168ng/mL (0.000-0.055) Activated Partial Thromboplast Time 82SEC (24-38) Total Bilirubin 0.6mg/dL (0.2-1.0) Direct Bilirubin 0.2mg/dL (0.0-0.2) Aspartate Amino Transf (AST/SGOT) 117U/L (15-37) Alanine Aminotransferase (ALT/SGPT) 278U/L (16-63) Alkaline Phosphatase 58U/L (46-116) Total Protein 4.7g/dL (6.4-8.2) Albumin 2.1g/dL (3.4-5.0) Lipase 57U/L (73-393) Glucose (Fingerstick) 158mg/dL (70-99) Test 11/26/16 08:25 11/26/16 08:30 Magnesium Level 2.5mg/dL (1.8-2.4) O2 Saturation 98% (92-99) Arterial Blood pH 7.32 (7.35-7.45) Arterial Blood pCO2 at Patient Temp 31mmHg (35-46) Arterial Blood pO2 at Patient Temp 130mmHg (65-108) Arterial Blood HCO3 16mmol/L (21-28) Arterial Blood Base Excess -9mmol/L (-3-3) FiO2 60 Glucose (Fingerstick) 242mg/dL (70-99) Impression . 1. Acute respiratory failure secondary to [id number] cardiopulmonary arrest. Suspect secondary to arrhythmia. 2. Hyperlipidemia. 3. Diabetes. 4. Positive venous Doppler on Heparin 5. Metabolic acidosis sec to code 6. Possible PE 7. Ischemia CM 35-40% 8. Acute kidney injury On the left there appears to be a popliteal nonocclusive thrombus. Critical Notification Critical Value: No <Conclusion> Suspect deep venous thrombi in the bilateral popliteal segments of the lower extremities with more proximal extension to the mid superficial femoral vein on the right side. Bilateral lower extremity below-knee venous structures were not well-visualized Plan . TRAIL AND POSSIBLE EXTUBATE CT ANGIO OF CHEST ONCE EXTUBATED AND KIDNEY FUNCTION IMPROVES SPOKE WITH FAMILY TOTAL CCT 30 MIN 1. Trial 2. finished hypothermic protocol 3. Cardiology follow rec 4. follow nephrology input 5. Further cardiac workup per Dr. Lu. 6. Titrate FIO2. 7. No need for antibiotics. MC GUILLORY MD Nov 26, 2016 09:35
--- NOTE | 2016-11-26 09:39 | PDOC ---
Objective: Objective: Per RN - awake, following commands, diarrhea slowing. present. Vital Signs: Vital Signs Date Time Temp Pulse Resp B/P Pulse Ox O2 Delivery O2 Flow Rate FiO2 11/26/16 09:03 97 Ventilator 11/26/16 09:00 97 11 100/53 11/26/16 08:00 99.2 99.2 Labs: Laboratory Tests Test 11/25/16 10:00 11/25/16 10:01 11/25/16 11:12 11/25/16 12:15 Activated Partial Thromboplast Time > 150SEC > 150SEC Heparin Anti-Xa Act, Unfractionated > 1.10IU/mL Sodium Level 144mmol/L 143mmol/L Potassium Level 4.5mmol/L 4.4mmol/L Chloride Level 107mmol/L 107mmol/L Carbon Dioxide Level 24mmol/L 24mmol/L Anion Gap 13 12 Blood Urea Nitrogen 33mg/dL 33mg/dL Creatinine 1.7mg/dL 1.8mg/dL Estimated GFR (Cockcroft-Gault) 39.9 37.4 Glucose Level 136mg/dL 118mg/dL Calcium Level 7.1mg/dL 7.0mg/dL Phosphorus Level 4.9mg/dL 4.5mg/dL Magnesium Level 1.4mg/dL 1.2mg/dL Creatine Kinase 2247U/L Troponin I Quantitative 2.508ng/mL 2.233ng/mL Glucose (Fingerstick) 127mg/dL 97mg/dL Test 11/25/16 12:23 11/25/16 12:55 11/25/16 13:46 11/25/16 14:00 Glucose (Fingerstick) 107mg/dL 98mg/dL Urine Collection Type Unknown Urine Color Red Urine Clarity Turbid Urine pH 5.0 Urine Specific [place] 1.020 Urine Protein 30mg/dL Urine Glucose (UA) Negativemg/dL Urine Ketones (Stick) Tracemg/dL Urine Blood Large Urine Nitrite Negative Urine Bilirubin Negative Urine Urobilinogen Dipstick 0.2mg/dL Urine Leukocyte Esterase Moderate Urine RBC Tntc/HPF Urine WBC 5-10/HPF Urine Bacteria Few/HPF Urine Random Creatinine 90.9mg/dL Urine Random Sodium 28mmol/L O2 Saturation 96% Arterial Blood pH 7.34 Arterial Blood pCO2 at Patient Temp 39mmHg Arterial Blood pO2 at Patient Temp 93mmHg Arterial Blood HCO3 20mmol/L Arterial Blood Base Excess -5mmol/L FiO2 60 Test 11/25/16 14:50 11/25/16 15:45 11/25/16 15:48 11/25/16 15:55 Glucose (Fingerstick) 95mg/dL 106mg/dL Lactic Acid Level 1.5mmol/L White Blood Count 11.6x10^3/uL Red Blood Count 3.45x10^6/uL Hemoglobin 10.3g/dL Hematocrit 30.6% Mean Corpuscular Volume 89fL Mean Corpuscular Hemoglobin 30pg Mean Corpuscular Hemoglobin Concent 34g/dL Red Cell Distribution Width 14.2% Platelet Count 78x10^3/uL Prothrombin Time 20.5SEC Prothromb Time International Ratio 1.9 Activated Partial Thromboplast Time > 150SEC Heparin Anti-Xa Act, Unfractionated > 1.10IU/mL Sodium Level 143mmol/L Potassium Level 3.9mmol/L Chloride Level 106mmol/L Carbon Dioxide Level 23mmol/L Anion Gap 14 Blood Urea Nitrogen 33mg/dL Creatinine 1.8mg/dL Estimated GFR (Cockcroft-Gault) 37.4 Glucose Level 116mg/dL Calcium Level 7.1mg/dL Phosphorus Level 4.4mg/dL Magnesium Level 1.8mg/dL Troponin I Quantitative 1.764ng/mL Test 11/25/16 16:58 11/25/16 18:29 11/25/16 18:45 11/25/16 19:38 Glucose (Fingerstick) 105mg/dL 110mg/dL 92mg/dL Potassium Level 3.6mmol/L Test 11/25/16 19:55 11/25/16 20:55 11/25/16 21:59 11/25/16 22:00 Activated Partial Thromboplast Time > 150SEC Sodium Level 142mmol/L Potassium Level 3.9mmol/L Chloride Level 105mmol/L Carbon Dioxide Level 23mmol/L Anion Gap 14 Blood Urea Nitrogen 34mg/dL Creatinine 1.8mg/dL Estimated GFR (Cockcroft-Gault) 37.4 Glucose Level 118mg/dL Calcium Level 7.1mg/dL Phosphorus Level 4.7mg/dL Magnesium Level 1.8mg/dL Troponin I Quantitative 1.690ng/mL Glucose (Fingerstick) 90mg/dL 109mg/dL O2 Saturation 96% Arterial Blood pH 7.40 Arterial Blood pH (Temp corrected) 7.42 Arterial Blood pCO2 at Patient Temp 31mmHg Arterial Blood pCO2 (Temp correct) 30mmHg Arterial Blood pO2 at Patient Temp 94mmHg Arterial Blood pO2 (Temp corrected) 89mmHg Arterial Blood HCO3 19mmol/L Arterial Blood Base Excess -5mmol/L Test 11/25/16 22:05 11/26/16 00:00 11/26/16 04:55 11/26/16 05:26 White Blood Count 10.8x10^3/uL 13.7x10^3/uL Red Blood Count 3.13x10^6/uL 2.69x10^6/uL Hemoglobin 9.5g/dL 8.1g/dL Hematocrit 27.9% 24.3% Mean Corpuscular Volume 89fL 90fL Mean Corpuscular Hemoglobin 30pg 30pg Mean Corpuscular Hemoglobin Concent 34g/dL 34g/dL Red Cell Distribution Width 14.2% 13.9% Platelet Count 81x10^3/uL 107x10^3/uL Prothrombin Time 18.2SEC 17.0SEC Prothromb Time International Ratio 1.6 1.5 Heparin Anti-Xa Act, Unfractionated > 1.10IU/mL 0.24IU/mL Lactic Acid Level 1.2mmol/L Sodium Level 141mmol/L 144mmol/L Potassium Level 3.8mmol/L 3.5mmol/L Chloride Level 104mmol/L 105mmol/L Carbon Dioxide Level 23mmol/L 20mmol/L Anion Gap 14 19 Blood Urea Nitrogen 36mg/dL 36mg/dL Creatinine 2.0mg/dL 2.2mg/dL Estimated GFR (Cockcroft-Gault) 33.1 29.7 Glucose Level 120mg/dL 194mg/dL Calcium Level 6.9mg/dL 6.6mg/dL Phosphorus Level 5.2mg/dL 6.6mg/dL Magnesium Level 1.7mg/dL 1.6mg/dL Troponin I Quantitative 1.387ng/mL 1.168ng/mL Activated Partial Thromboplast Time 82SEC Total Bilirubin 0.6mg/dL Direct Bilirubin 0.2mg/dL Aspartate Amino Transf (AST/SGOT) 117U/L Alanine Aminotransferase (ALT/SGPT) 278U/L Alkaline Phosphatase 58U/L Total Protein 4.7g/dL Albumin 2.1g/dL Lipase 57U/L Glucose (Fingerstick) 158mg/dL Test 11/26/16 08:25 11/26/16 08:30 Magnesium Level 2.5mg/dL O2 Saturation 98% Arterial Blood pH 7.32 Arterial Blood pCO2 at Patient Temp 31mmHg Arterial Blood pO2 at Patient Temp 130mmHg Arterial Blood HCO3 16mmol/L Arterial Blood Base Excess -9mmol/L FiO2 60 Glucose (Fingerstick) 242mg/dL Imaging: CXR 11/26/16 IMPRESSION: 1. Stable tube positions. 2. Mild cardiomegaly. PE: GEN: intubated LUNGS: vent HEART: tachycardic ABD:BS quiet, soft, rectal tube bag w/ brown watery stool NEURO/PSYCH: awake, smiles A/P: Cardiac arrest, DVT, resp failure -intubated in ICU, on Pepcid -lactic acidosis resolved -leukocytosis, ID following, likely reactive -transaminitis improved Diarrhea, possible ischemic bowel -w/ rectal tube, C Diff neg, hemoccult neg, diarrhea slowing -- Continue same per GI. YAMEL CUEVAS Nov 26, 2016 09:39
[2016-11-26] MEDS: POTASSIUM CHLORIDE 20MEQ 50 ML IV SCH ×2 (10:37→11:23)
--- NOTE | 2016-11-26 10:38 | PDOC ---
PROGRESS NOTES Chief Complaint Chief Complaint Cardiac arrest ASSESSMENT AND PLAN; 1. Cardiac arrest: re-warmed. heparin protocol. cardiology service following 2. Respir failure: poss 2/2 massive PE. intubated. vent adjustment 3. DVT: B LE. mild swelling R LE. on heparin gtt 4. CHF: systolic (EF 35-40%). new. cardiology following 5. ?HAMILTON with CKD: creat sl worse. monitor 6. Leukocytosis: reactive. monitor 7. Transaminitis: suspect 2/2 cardiogenic shock. improving 8. DM2: insulin gtt stopped; ISS 9. HLD: on statin 10: prophylaxis: PPI 40 min CC time Vitals Vitals Vital Signs Date Time Temp Pulse Resp B/P Pulse Ox O2 Delivery O2 Flow Rate FiO2 11/26/16 10:00 99 18 94/38 99 Ventilator 11/26/16 08:00 99.2 99.2 Physical Exam General: severe distress (intub.ed), Other (sed) Heart: Regular rate, Other (distant heart tones) Lungs: Clear Abdomen: Soft, Other (ND) Extremities: No cyanosis, Other (1+ LE edema R) Skin: No rashes, No breakdown, No significant lesion Labs LABS Laboratory Tests Test 11/25/16 11:12 11/25/16 12:15 11/25/16 12:23 11/25/16 12:55 Glucose (Fingerstick) 97mg/dL (70-99) 107mg/dL (70-99) Activated Partial Thromboplast Time > 150SEC (24-38) Sodium Level 143mmol/L (136-145) Potassium Level 4.4mmol/L (3.5-5.1) Chloride Level 107mmol/L (98-107) Carbon Dioxide Level 24mmol/L (21-32) Anion Gap 12 (6-14) Blood Urea Nitrogen 33mg/dL (8-26) Creatinine 1.8mg/dL (0.7-1.3) Estimated GFR (Cockcroft-Gault) 37.4 Glucose Level 118mg/dL (70-99) Calcium Level 7.0mg/dL (8.5-10.1) Phosphorus Level 4.5mg/dL (2.6-4.7) Magnesium Level 1.2mg/dL (1.8-2.4) Troponin I Quantitative 2.233ng/mL (0.000-0.055) Urine Collection Type Unknown Urine Color Red Urine Clarity Turbid Urine pH 5.0 Urine Specific [place] 1.020 Urine Protein 30mg/dL (NEG-TRACE) Urine Glucose (UA) Negativemg/dL (NEG) Urine Ketones (Stick) Tracemg/dL (NEG) Urine Blood Large (NEG) Urine Nitrite Negative (NEG) Urine Bilirubin Negative (NEG) Urine Urobilinogen Dipstick 0.2mg/dL (0.2 mg/dL) Urine Leukocyte Esterase Moderate (NEG) Urine RBC Tntc/HPF (0-2) Urine WBC 5-10/HPF (0-4) Urine Bacteria Few/HPF (0-FEW) Urine Random Creatinine 90.9mg/dL (Not Estab.) Urine Random Sodium 28mmol/L (Not Estab.) Test 11/25/16 13:46 11/25/16 14:00 11/25/16 14:50 11/25/16 15:45 Glucose (Fingerstick) 98mg/dL (70-99) 95mg/dL (70-99) O2 Saturation 96% (92-99) Arterial Blood pH 7.34 (7.35-7.45) Arterial Blood pCO2 at Patient Temp 39mmHg (35-46) Arterial Blood pO2 at Patient Temp 93mmHg (65-108) Arterial Blood HCO3 20mmol/L (21-28) Arterial Blood Base Excess -5mmol/L (-3-3) FiO2 60 Lactic Acid Level 1.5mmol/L (0.4-2.0) Test 11/25/16 15:48 11/25/16 15:55 11/25/16 16:58 11/25/16 18:29 Glucose (Fingerstick) 106mg/dL (70-99) 105mg/dL (70-99) 110mg/dL (70-99) White Blood Count 11.6x10^3/uL (4.0-11.0) Red Blood Count 3.45x10^6/uL (4.30-5.70) Hemoglobin 10.3g/dL (13.0-17.5) Hematocrit 30.6% (39.0-53.0) Mean Corpuscular Volume 89fL (79-100) Mean Corpuscular Hemoglobin 30pg (25-35) Mean Corpuscular Hemoglobin Concent 34g/dL (31-37) Red Cell Distribution Width 14.2% (11.5-14.5) Platelet Count 78x10^3/uL (140-400) Prothrombin Time 20.5SEC (11.7-14.0) Prothromb Time International Ratio 1.9 (0.8-1.1) Activated Partial Thromboplast Time > 150SEC (24-38) Heparin Anti-Xa Act, Unfractionated > 1.10IU/mL (0.30-0.70) Sodium Level 143mmol/L (136-145) Potassium Level 3.9mmol/L (3.5-5.1) Chloride Level 106mmol/L (98-107) Carbon Dioxide Level 23mmol/L (21-32) Anion Gap 14 (6-14) Blood Urea Nitrogen 33mg/dL (8-26) Creatinine 1.8mg/dL (0.7-1.3) Estimated GFR (Cockcroft-Gault) 37.4 Glucose Level 116mg/dL (70-99) Calcium Level 7.1mg/dL (8.5-10.1) Phosphorus Level 4.4mg/dL (2.6-4.7) Magnesium Level 1.8mg/dL (1.8-2.4) Troponin I Quantitative 1.764ng/mL (0.000-0.055) Test 11/25/16 18:45 11/25/16 19:38 11/25/16 19:55 11/25/16 20:55 Potassium Level 3.6mmol/L (3.5-5.1) 3.9mmol/L (3.5-5.1) Glucose (Fingerstick) 92mg/dL (70-99) 90mg/dL (70-99) Activated Partial Thromboplast Time > 150SEC (24-38) Sodium Level 142mmol/L (136-145) Chloride Level 105mmol/L (98-107) Carbon Dioxide Level 23mmol/L (21-32) Anion Gap 14 (6-14) Blood Urea Nitrogen 34mg/dL (8-26) Creatinine 1.8mg/dL (0.7-1.3) Estimated GFR (Cockcroft-Gault) 37.4 Glucose Level 118mg/dL (70-99) Calcium Level 7.1mg/dL (8.5-10.1) Phosphorus Level 4.7mg/dL (2.6-4.7) Magnesium Level 1.8mg/dL (1.8-2.4) Troponin I Quantitative 1.690ng/mL (0.000-0.055) Test 11/25/16 21:59 11/25/16 22:00 11/25/16 22:05 11/26/16 00:00 Glucose (Fingerstick) 109mg/dL (70-99) O2 Saturation 96% (92-99) Arterial Blood pH 7.40 (7.35-7.45) Arterial Blood pH (Temp corrected) 7.42 Arterial Blood pCO2 at Patient Temp 31mmHg (35-46) Arterial Blood pCO2 (Temp correct) 30mmHg Arterial Blood pO2 at Patient Temp 94mmHg (65-108) Arterial Blood pO2 (Temp corrected) 89mmHg Arterial Blood HCO3 19mmol/L (21-28) Arterial Blood Base Excess -5mmol/L (-3-3) White Blood Count 10.8x10^3/uL (4.0-11.0) Red Blood Count 3.13x10^6/uL (4.30-5.70) Hemoglobin 9.5g/dL (13.0-17.5) Hematocrit 27.9% (39.0-53.0) Mean Corpuscular Volume 89fL (79-100) Mean Corpuscular Hemoglobin 30pg (25-35) Mean Corpuscular Hemoglobin Concent 34g/dL (31-37) Red Cell Distribution Width 14.2% (11.5-14.5) Platelet Count 81x10^3/uL (140-400) Prothrombin Time 18.2SEC (11.7-14.0) Prothromb Time International Ratio 1.6 (0.8-1.1) Heparin Anti-Xa Act, Unfractionated > 1.10IU/mL (0.30-0.70) Lactic Acid Level 1.2mmol/L (0.4-2.0) Sodium Level 141mmol/L (136-145) Potassium Level 3.8mmol/L (3.5-5.1) Chloride Level 104mmol/L (98-107) Carbon Dioxide Level 23mmol/L (21-32) Anion Gap 14 (6-14) Blood Urea Nitrogen 36mg/dL (8-26) Creatinine 2.0mg/dL (0.7-1.3) Estimated GFR (Cockcroft-Gault) 33.1 Glucose Level 120mg/dL (70-99) Calcium Level 6.9mg/dL (8.5-10.1) Phosphorus Level 5.2mg/dL (2.6-4.7) Magnesium Level 1.7mg/dL (1.8-2.4) Troponin I Quantitative 1.387ng/mL (0.000-0.055) Test 11/26/16 04:55 11/26/16 05:26 11/26/16 08:25 11/26/16 08:30 White Blood Count 13.7x10^3/uL (4.0-11.0) Red Blood Count 2.69x10^6/uL (4.30-5.70) Hemoglobin 8.1g/dL (13.0-17.5) Hematocrit 24.3% (39.0-53.0) Mean Corpuscular Volume 90fL (79-100) Mean Corpuscular Hemoglobin 30pg (25-35) Mean Corpuscular Hemoglobin Concent 34g/dL (31-37) Red Cell Distribution Width 13.9% (11.5-14.5) Platelet Count 107x10^3/uL (140-400) Prothrombin Time 17.0SEC (11.7-14.0) Prothromb Time International Ratio 1.5 (0.8-1.1) Activated Partial Thromboplast Time 82SEC (24-38) 103SEC (24-38) Heparin Anti-Xa Act, Unfractionated 0.24IU/mL (0.30-0.70) Sodium Level 144mmol/L (136-145) Potassium Level 3.5mmol/L (3.5-5.1) Chloride Level 105mmol/L (98-107) Carbon Dioxide Level 20mmol/L (21-32) Anion Gap 19 (6-14) Blood Urea Nitrogen 36mg/dL (8-26) Creatinine 2.2mg/dL (0.7-1.3) Estimated GFR (Cockcroft-Gault) 29.7 Glucose Level 194mg/dL (70-99) Calcium Level 6.6mg/dL (8.5-10.1) Phosphorus Level 6.6mg/dL (2.6-4.7) Magnesium Level 1.6mg/dL (1.8-2.4) 2.5mg/dL (1.8-2.4) Total Bilirubin 0.6mg/dL (0.2-1.0) Direct Bilirubin 0.2mg/dL (0.0-0.2) Aspartate Amino Transf (AST/SGOT) 117U/L (15-37) Alanine Aminotransferase (ALT/SGPT) 278U/L (16-63) Alkaline Phosphatase 58U/L (46-116) Troponin I Quantitative 1.168ng/mL (0.000-0.055) Total Protein 4.7g/dL (6.4-8.2) Albumin 2.1g/dL (3.4-5.0) Lipase 57U/L (73-393) Glucose (Fingerstick) 158mg/dL (70-99) 242mg/dL (70-99) O2 Saturation 98% (92-99) Arterial Blood pH 7.32 (7.35-7.45) Arterial Blood pCO2 at Patient Temp 31mmHg (35-46) Arterial Blood pO2 at Patient Temp 130mmHg (65-108) Arterial Blood HCO3 16mmol/L (21-28) Arterial Blood Base Excess -9mmol/L (-3-3) FiO2 60 Review of Systems Review of Systems inbub.ed, very lightly sedated DAHLIA EPTERSON MD Nov 26, 2016 10:38
--- NOTE | 2016-11-26 11:51 | PDOC ---
SUBJECTIVE ROS HAMILTON, ? CKD ? Remains sedated and intubated so unable to get ROS OBJECTIVE Vital Signs Vital Signs Date Time Temp Pulse Resp B/P Pulse Ox O2 Delivery O2 Flow Rate FiO2 11/26/16 11:00 98 12 94/41 99 Ventilator 11/26/16 08:00 99.2 99.2 I & 0 Intake and Output 11/26/16 07:00 Intake Total 4546.09 ml Output Total 648 ml Balance 3898.09 ml Intake IV Total 4546.09 ml Output Urine Total 623 ml Gastric Drainage Total 25 ml PHYSICAL EXAM Physical Exam General Appearance: remains intubated on the Vent (about to be extubated) In no Distress Eyes: VIsion Unchanged Conjunctiva Normal EN: No EN Drainage Mucous Memb. moist Neck: no JVD min JVP Supple no Thyromegaly CVS: S1 S2 no audible Murmur No Gallop No Rub no Edema Resp: no Rales no Rhonchi no Acc. Muscle use GI: BS +ve NO Bruit Non Tender Non Distended : no CVA tenderness; no Suprapubic Tenderness SKIN: no Rashes Breast Exam deferred Mu.Sk: Adequate passive ROM no Muscle Atrophy Heme: Unable to palpate Obvious LAD no palp Splenomegaly NEURO: Follows Commands Psych: Unable to assess while intubated Assessment & Plan HAMILTON/ vs CKD - cannot R/o ATN from Code Blue. Current FLuid and E-lyte status does not necessitate emergent need for Dialysis. Will re-evaluate for Dialysis in am, check CK. Microscopic Hematuria - suspect ? due to Heparin gtt Low K - on replacement per ICU [place] Protocol ^ed Phos - check CK Low Elías - suspect due to Low Mag vs ^ed CK; one time IV CalCl, Start TPN ^CK - ? asso with Code, vs NSTEMI. - Ct IVF Mild WAG Met ACidosis - Lactic was ^ed and now has resolved. ? Due to Ketosis ( unable to check S. Ketones) Nutrition - Start TPN Low Mag - on replacement protocol Marginal BP and UO - ? Cardiogenic vs due to PE vs HypoVolemic. CVP is Good for now Cmyopathy - ? LHC in am as planned by cardiology Discussed Plan of Care and prognosis etc. at length with family. 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 need for [employer] was discussed with pt and Family COMMENT/RELEVANT DATA Meds Current Medications Medications (Trade) Dose Ordered Sig/Kika Start Time Stop Time Status Last Admin Dose Admin Acetaminophen (Tylenol) 650 mg PRN Q6HRS PRN 11/25/16 08:45 Acetaminophen 650 mg 650 mg PRN Q6HRS PRN 11/25/16 23:30 11/26/16 08:37 650 MG Amiodarone HCl (Cordarone) 450 mg STK-MED ONCE 11/25/16 12:00 11/25/16 14:56 DC Aspirin (Aspirin) 300 mg DAILY 11/24/16 09:00 11/25/16 10:53 300 MG Atropine Sulfate 1.5 mg STK-MED ONCE 11/25/16 12:00 11/25/16 14:56 DC Chlorhexidine Gluconate 15 ml 15 ml BID 11/25/16 21:00 11/26/16 08:37 15 ML Dextrose 12.5 gm PRN Q15MIN PRN 11/25/16 23:30 Enoxaparin Sodium (Lovenox Per Pharmacy Prophylaxis Dosing) 1 each PRN DAILY PRN 11/25/16 08:45 UNV Epinephrine HCl 4 mg STK-MED ONCE 11/25/16 12:00 11/25/16 14:56 DC Epinephrine HCl (Adrenalin) 30 mg STK-MED ONCE 11/25/16 12:00 11/25/16 14:56 DC Epinephrine HCl/ Sodium Chloride (Adrenalin/Iv Sodium Chloride 0.9% 250ml) 254 ml @ 0 mls/hr CONT PRN 11/24/16 07:30 11/26/16 03:05 11.43 MLS/HR Famotidine (Pepcid) 20 mg QHS 11/24/16 21:00 11/25/16 23:55 20 MG Fentanyl Citrate 30 ml @ 2.5 mls/hr CONT PRN PRN 11/24/16 08:45 11/26/16 07:40 2.5 MLS/HR Fentanyl Citrate (Fentanyl 2ml Vial) 25 mcg PRN Q30MIN PRN 11/24/16 08:45 Heparin Sodium (Porcine) 1,500 unit PRN Q6HRS PRN 11/24/16 16:45 11/26/16 06:10 1,500 UNIT Heparin Sodium (Porcine) 8100 unit 8,100 unit 1X ONCE 11/24/16 17:00 11/24/16 17:01 DC 11/24/16 17:24 8,100 UNIT Heparin Sodium/ Dextrose 500 ml @ 0 mls/hr CONT PRN 11/24/16 16:45 11/25/16 17:36 10.9 MLS/HR Heparin Sodium/ Sodium Chloride 60 unit 1X ONCE 11/25/16 13:15 11/25/16 13:16 DC 11/25/16 13:16 60 UNIT Info 1 ea 1 ea DAILY PRN 11/26/16 08:45 Info 1 each 1 each PRN DAILY PRN 11/24/16 17:00 11/26/16 07:38 1 EACH Insulin Aspart (Novolog) 0-7 UNITS TIDWMEALS 11/26/16 08:00 11/26/16 08:38 4 UNITS Insulin Detemir (Levemir) 12 units QHS 11/24/16 21:00 11/24/16 21:00 DC Insulin Human Regular 150 unit/ Sodium Chloride 151.5 ml @ 9.16 mls/hr CONT PRN 11/24/16 09:30 11/24/16 10:13 3.4 MLS/HR Lidocaine/Sodium Bicarbonate (Buffered Lidocaine 1%) 3 ml 1X ONCE 11/25/16 13:15 11/25/16 13:16 DC 11/25/16 13:15 3 ML Lorazepam 1 mg 1 mg PRN Q30MIN PRN 11/24/16 08:45 11/25/16 12:26 1 MG Magnesium Sulfate/ Dextrose (Magnesium Sulfate PREMIX 2GM) 50 ml @ 25 mls/hr 1X ONCE 11/25/16 12:30 11/25/16 14:29 DC 11/25/16 13:28 25 MLS/HR Meperidine HCl (Demerol) 12.5 mg PRN Q30MIN PRN 11/24/16 08:45 11/24/16 22:21 DC 11/24/16 22:21 12.5 MG Midazolam HCl (Versed 100mg/ 100ml Premix) 100 ml @ 0 mls/hr CONT PRN 11/25/16 23:30 Multi-Ingred Cream/Lotion/Oil/ Oint (Artificial Tears Eye Oint) 1 radha PRN Q6HRS PRN 11/24/16 08:45 Piperacillin Sod/ Tazobactam Sod 3.375 gm/Sodium Chloride 50 ml @ 100 mls/hr Q6HRS 11/25/16 00:00 11/26/16 07:39 100 MLS/HR Piperacillin Sod/ Tazobactam Sod 1 each 1 each PRN DAILY PRN 11/24/16 08:15 11/24/16 13:06 DC Piperacillin Sod/ Tazobactam Sod/ Sodium Chloride (Zosyn/Iv Sodium Chloride 0.9% 100ml) 100 ml @ 200 mls/hr Q6HRS 11/24/16 08:30 11/24/16 11:15 DC 11/24/16 10:10 200 MLS/HR Potassium Chloride (KCl Premix 20meq) 50 ml @ 50 mls/hr Q1H 11/26/16 10:30 11/26/16 12:29 11/26/16 11:23 50 MLS/HR Propofol (Diprivan) 100 ml @ 0 mls/hr CONT PRN 11/24/16 08:45 11/26/16 07:38 5.5 MLS/HR Sodium Bicarbonate 150 meq 150 meq STK-MED ONCE 11/25/16 12:00 11/25/16 14:56 DC Sodium Bicarbonate 50 meq/Sodium Chloride 1,050 ml @ 125 mls/hr Q8H24M 11/24/16 08:30 11/26/16 11:24 125 MLS/HR Sodium Chloride 500 ml @ 0 mls/hr QID PRN 11/25/16 09:45 11/25/16 10:54 999 MLS/HR Sodium Chloride (Iv Sodium Chloride 0.9% 1000ml Bag) 1,000 ml @ 1,000 mls/hr 1X ONCE 11/24/16 11:00 11/24/16 11:59 DC 11/24/16 11:00 1,000 MLS/HR Sodium Chloride (Normal Saline Flush) 3 ml QSHIFT PRN 11/24/16 08:45 Vancomycin HCl 1 each 1X ONCE 11/26/16 09:30 11/26/16 09:30 DC Vancomycin HCl (Vanco Per Pharmacy) 1 each PRN DAILY PRN 11/24/16 08:15 11/24/16 13:06 DC 11/24/16 11:26 1 EACH Vancomycin HCl 1.5 gm/Sodium Chloride 500 ml @ 250 mls/hr Q24H 11/25/16 10:00 11/25/16 10:00 DC Vancomycin HCl 1 each 1 each PRN DAILY PRN 11/25/16 01:00 11/25/16 08:57 DC 11/25/16 03:30 1 EACH Vancomycin HCl 2 gm/Sodium Chloride 500 ml @ 250 mls/hr ONCE ONCE 11/24/16 08:30 11/24/16 10:29 DC 11/24/16 10:15 250 MLS/HR Vancomycin HCl/ Sodium Chloride (Iv Sodium Chloride 0.9% 250ml) 250 ml @ 250 mls/hr 1X ONCE 11/24/16 21:30 11/24/16 22:29 UNV Vancomycin HCl/ Sodium Chloride (Iv Sodium Chloride 0.9% 500ml Bag) 500 ml @ 250 mls/hr Q24H 11/25/16 10:00 11/25/16 10:00 DC Vecuronium [place] (Norcuron Bolus) 9 mg PRN Q30MIN PRN 11/24/16 08:45 11/24/16 17:38 9 MG Lab Laboratory Tests Test 11/25/16 12:15 11/25/16 12:23 11/25/16 12:55 11/25/16 13:46 Activated Partial Thromboplast Time > 150SEC (24-38) Sodium Level 143mmol/L (136-145) Potassium Level 4.4mmol/L (3.5-5.1) Chloride Level 107mmol/L (98-107) Carbon Dioxide Level 24mmol/L (21-32) Anion Gap 12 (6-14) Blood Urea Nitrogen 33mg/dL (8-26) Creatinine 1.8mg/dL (0.7-1.3) Estimated GFR (Cockcroft-Gault) 37.4 Glucose Level 118mg/dL (70-99) Calcium Level 7.0mg/dL (8.5-10.1) Phosphorus Level 4.5mg/dL (2.6-4.7) Magnesium Level 1.2mg/dL (1.8-2.4) Troponin I Quantitative 2.233ng/mL (0.000-0.055) Glucose (Fingerstick) 107mg/dL (70-99) 98mg/dL (70-99) Urine Collection Type Unknown Urine Color Red Urine Clarity Turbid Urine pH 5.0 Urine Specific [place] 1.020 Urine Protein 30mg/dL (NEG-TRACE) Urine Glucose (UA) Negativemg/dL (NEG) Urine Ketones (Stick) Tracemg/dL (NEG) Urine Blood Large (NEG) Urine Nitrite Negative (NEG) Urine Bilirubin Negative (NEG) Urine Urobilinogen Dipstick 0.2mg/dL (0.2 mg/dL) Urine Leukocyte Esterase Moderate (NEG) Urine RBC Tntc/HPF (0-2) Urine WBC 5-10/HPF (0-4) Urine Bacteria Few/HPF (0-FEW) Urine Random Creatinine 90.9mg/dL (Not Estab.) Urine Random Sodium 28mmol/L (Not Estab.) Test 11/25/16 14:00 11/25/16 14:50 11/25/16 15:45 11/25/16 15:48 O2 Saturation 96% (92-99) Arterial Blood pH 7.34 (7.35-7.45) Arterial Blood pCO2 at Patient Temp 39mmHg (35-46) Arterial Blood pO2 at Patient Temp 93mmHg (65-108) Arterial Blood HCO3 20mmol/L (21-28) Arterial Blood Base Excess -5mmol/L (-3-3) FiO2 60 Glucose (Fingerstick) 95mg/dL (70-99) 106mg/dL (70-99) Lactic Acid Level 1.5mmol/L (0.4-2.0) Test 11/25/16 15:55 11/25/16 16:58 11/25/16 18:29 11/25/16 18:45 White Blood Count 11.6x10^3/uL (4.0-11.0) Red Blood Count 3.45x10^6/uL (4.30-5.70) Hemoglobin 10.3g/dL (13.0-17.5) Hematocrit 30.6% (39.0-53.0) Mean Corpuscular Volume 89fL (79-100) Mean Corpuscular Hemoglobin 30pg (25-35) Mean Corpuscular Hemoglobin Concent 34g/dL (31-37) Red Cell Distribution Width 14.2% (11.5-14.5) Platelet Count 78x10^3/uL (140-400) Prothrombin Time 20.5SEC (11.7-14.0) Prothromb Time International Ratio 1.9 (0.8-1.1) Activated Partial Thromboplast Time > 150SEC (24-38) Heparin Anti-Xa Act, Unfractionated > 1.10IU/mL (0.30-0.70) Sodium Level 143mmol/L (136-145) Potassium Level 3.9mmol/L (3.5-5.1) 3.6mmol/L (3.5-5.1) Chloride Level 106mmol/L (98-107) Carbon Dioxide Level 23mmol/L (21-32) Anion Gap 14 (6-14) Blood Urea Nitrogen 33mg/dL (8-26) Creatinine 1.8mg/dL (0.7-1.3) Estimated GFR (Cockcroft-Gault) 37.4 Glucose Level 116mg/dL (70-99) Calcium Level 7.1mg/dL (8.5-10.1) Phosphorus Level 4.4mg/dL (2.6-4.7) Magnesium Level 1.8mg/dL (1.8-2.4) Troponin I Quantitative 1.764ng/mL (0.000-0.055) Glucose (Fingerstick) 105mg/dL (70-99) 110mg/dL (70-99) Test 11/25/16 19:38 11/25/16 19:55 11/25/16 20:55 11/25/16 21:59 Glucose (Fingerstick) 92mg/dL (70-99) 90mg/dL (70-99) 109mg/dL (70-99) Activated Partial Thromboplast Time > 150SEC (24-38) Sodium Level 142mmol/L (136-145) Potassium Level 3.9mmol/L (3.5-5.1) Chloride Level 105mmol/L (98-107) Carbon Dioxide Level 23mmol/L (21-32) Anion Gap 14 (6-14) Blood Urea Nitrogen 34mg/dL (8-26) Creatinine 1.8mg/dL (0.7-1.3) Estimated GFR (Cockcroft-Gault) 37.4 Glucose Level 118mg/dL (70-99) Calcium Level 7.1mg/dL (8.5-10.1) Phosphorus Level 4.7mg/dL (2.6-4.7) Magnesium Level 1.8mg/dL (1.8-2.4) Troponin I Quantitative 1.690ng/mL (0.000-0.055) Test 11/25/16 22:00 11/25/16 22:05 11/26/16 00:00 11/26/16 04:55 O2 Saturation 96% (92-99) Arterial Blood pH 7.40 (7.35-7.45) Arterial Blood pH (Temp corrected) 7.42 Arterial Blood pCO2 at Patient Temp 31mmHg (35-46) Arterial Blood pCO2 (Temp correct) 30mmHg Arterial Blood pO2 at Patient Temp 94mmHg (65-108) Arterial Blood pO2 (Temp corrected) 89mmHg Arterial Blood HCO3 19mmol/L (21-28) Arterial Blood Base Excess -5mmol/L (-3-3) White Blood Count 10.8x10^3/uL (4.0-11.0) 13.7x10^3/uL (4.0-11.0) Red Blood Count 3.13x10^6/uL (4.30-5.70) 2.69x10^6/uL (4.30-5.70) Hemoglobin 9.5g/dL (13.0-17.5) 8.1g/dL (13.0-17.5) Hematocrit 27.9% (39.0-53.0) 24.3% (39.0-53.0) Mean Corpuscular Volume 89fL (79-100) 90fL (79-100) Mean Corpuscular Hemoglobin 30pg (25-35) 30pg (25-35) Mean Corpuscular Hemoglobin Concent 34g/dL (31-37) 34g/dL (31-37) Red Cell Distribution Width 14.2% (11.5-14.5) 13.9% (11.5-14.5) Platelet Count 81x10^3/uL (140-400) 107x10^3/uL (140-400) Prothrombin Time 18.2SEC (11.7-14.0) 17.0SEC (11.7-14.0) Prothromb Time International Ratio 1.6 (0.8-1.1) 1.5 (0.8-1.1) Heparin Anti-Xa Act, Unfractionated > 1.10IU/mL (0.30-0.70) 0.24IU/mL (0.30-0.70) Lactic Acid Level 1.2mmol/L (0.4-2.0) Sodium Level 141mmol/L (136-145) 144mmol/L (136-145) Potassium Level 3.8mmol/L (3.5-5.1) 3.5mmol/L (3.5-5.1) Chloride Level 104mmol/L (98-107) 105mmol/L (98-107) Carbon Dioxide Level 23mmol/L (21-32) 20mmol/L (21-32) Anion Gap 14 (6-14) 19 (6-14) Blood Urea Nitrogen 36mg/dL (8-26) 36mg/dL (8-26) Creatinine 2.0mg/dL (0.7-1.3) 2.2mg/dL (0.7-1.3) Estimated GFR (Cockcroft-Gault) 33.1 29.7 Glucose Level 120mg/dL (70-99) 194mg/dL (70-99) Calcium Level 6.9mg/dL (8.5-10.1) 6.6mg/dL (8.5-10.1) Phosphorus Level 5.2mg/dL (2.6-4.7) 6.6mg/dL (2.6-4.7) Magnesium Level 1.7mg/dL (1.8-2.4) 1.6mg/dL (1.8-2.4) Troponin I Quantitative 1.387ng/mL (0.000-0.055) 1.168ng/mL (0.000-0.055) Activated Partial Thromboplast Time 82SEC (24-38) Total Bilirubin 0.6mg/dL (0.2-1.0) Direct Bilirubin 0.2mg/dL (0.0-0.2) Aspartate Amino Transf (AST/SGOT) 117U/L (15-37) Alanine Aminotransferase (ALT/SGPT) 278U/L (16-63) Alkaline Phosphatase 58U/L (46-116) Total Protein 4.7g/dL (6.4-8.2) Albumin 2.1g/dL (3.4-5.0) Lipase 57U/L (73-393) Test 11/26/16 05:26 11/26/16 08:25 11/26/16 08:30 11/26/16 11:00 Glucose (Fingerstick) 158mg/dL (70-99) 242mg/dL (70-99) Activated Partial Thromboplast Time 103SEC (24-38) Magnesium Level 2.5mg/dL (1.8-2.4) O2 Saturation 98% (92-99) Arterial Blood pH 7.32 (7.35-7.45) Arterial Blood pCO2 at Patient Temp 31mmHg (35-46) Arterial Blood pO2 at Patient Temp 130mmHg (65-108) Arterial Blood HCO3 16mmol/L (21-28) Arterial Blood Base Excess -9mmol/L (-3-3) FiO2 60 Heparin Anti-Xa Act, Unfractionated 0.27IU/mL (0.30-0.70) Other Renal ultrasound, 11/25/2016: History: Acute and chronic renal failure The right kidney measures 10.1 cm in length while the left kidney measures 11 cm. There is no evidence of hydronephrosis. The left renal cyst identified on yesterday's abdominal ultrasound is not clearly seen on the current exam, probably due to overlying bowel. The renal parenchymal echogenicity appears to be within normal limits. No abnormal perinephric process is seen. The bladder is not adequately visualized due to decompression by Pal catheter. IMPRESSION: No significant renal abnormality is detected. ASHLEY DIAMOND MD Nov 26, 2016 11:51
--- NOTE | 2016-11-26 12:32 | PDOC ---
CARMELO POSADAS CERTIFIED HAND THERAPIST 11/26/16 1232: CARDIO Progress Notes Date and Time Date of Service 11/26/16 Time of Evaluation 1135 Subjective Subjective: No Chest Pain, Other (intubated; minimal sedation. follows commands ) Vitals Vitals Vital Signs Date Time Temp Pulse Resp B/P Pulse Ox O2 Delivery O2 Flow Rate FiO2 11/26/16 12:11 98 T-Tube 10.0 11/26/16 11:00 98 12 94/41 11/26/16 08:00 99.2 99.2 Weight Weight [ ] Input and Output Intake and Output Intake and Output 11/26/16 07:00 Intake Total 4546.09 ml Output Total 648 ml Balance 3898.09 ml Intake IV Total 4546.09 ml Output Urine Total 623 ml Gastric Drainage Total 25 ml Laboratory Labs Laboratory Tests Test 11/25/16 12:23 11/25/16 12:55 11/25/16 13:46 11/25/16 14:00 Glucose (Fingerstick) 107mg/dL (70-99) 98mg/dL (70-99) Urine Collection Type Unknown Urine Color Red Urine Clarity Turbid Urine pH 5.0 Urine Specific [place] 1.020 Urine Protein 30mg/dL (NEG-TRACE) Urine Glucose (UA) Negativemg/dL (NEG) Urine Ketones (Stick) Tracemg/dL (NEG) Urine Blood Large (NEG) Urine Nitrite Negative (NEG) Urine Bilirubin Negative (NEG) Urine Urobilinogen Dipstick 0.2mg/dL (0.2 mg/dL) Urine Leukocyte Esterase Moderate (NEG) Urine RBC Tntc/HPF (0-2) Urine WBC 5-10/HPF (0-4) Urine Bacteria Few/HPF (0-FEW) Urine Random Creatinine 90.9mg/dL (Not Estab.) Urine Random Sodium 28mmol/L (Not Estab.) O2 Saturation 96% (92-99) Arterial Blood pH 7.34 (7.35-7.45) Arterial Blood pCO2 at Patient Temp 39mmHg (35-46) Arterial Blood pO2 at Patient Temp 93mmHg (65-108) Arterial Blood HCO3 20mmol/L (21-28) Arterial Blood Base Excess -5mmol/L (-3-3) FiO2 60 Test 11/25/16 14:50 3/21/17 15:45 11/25/16 15:48 11/25/16 15:55 Glucose (Fingerstick) 95mg/dL (70-99) 106mg/dL (70-99) Lactic Acid Level 1.5mmol/L (0.4-2.0) White Blood Count 11.6x10^3/uL (4.0-11.0) Red Blood Count 3.45x10^6/uL (4.30-5.70) Hemoglobin 10.3g/dL (13.0-17.5) Hematocrit 30.6% (39.0-53.0) Mean Corpuscular Volume 89fL (79-100) Mean Corpuscular Hemoglobin 30pg (25-35) Mean Corpuscular Hemoglobin Concent 34g/dL (31-37) Red Cell Distribution Width 14.2% (11.5-14.5) Platelet Count 78x10^3/uL (140-400) Prothrombin Time 20.5SEC (11.7-14.0) Prothromb Time International Ratio 1.9 (0.8-1.1) Activated Partial Thromboplast Time > 150SEC (24-38) Heparin Anti-Xa Act, Unfractionated > 1.10IU/mL (0.30-0.70) Sodium Level 143mmol/L (136-145) Potassium Level 3.9mmol/L (3.5-5.1) Chloride Level 106mmol/L (98-107) Carbon Dioxide Level 23mmol/L (21-32) Anion Gap 14 (6-14) Blood Urea Nitrogen 33mg/dL (8-26) Creatinine 1.8mg/dL (0.7-1.3) Estimated GFR (Cockcroft-Gault) 37.4 Glucose Level 116mg/dL (70-99) Calcium Level 7.1mg/dL (8.5-10.1) Phosphorus Level 4.4mg/dL (2.6-4.7) Magnesium Level 1.8mg/dL (1.8-2.4) Troponin I Quantitative 1.764ng/mL (0.000-0.055) Test 11/25/16 16:58 11/25/16 18:29 11/25/16 18:45 11/25/16 19:38 Glucose (Fingerstick) 105mg/dL (70-99) 110mg/dL (70-99) 92mg/dL (70-99) Potassium Level 3.6mmol/L (3.5-5.1) Test 11/25/16 19:55 11/25/16 20:55 11/25/16 21:59 11/25/16 22:00 Activated Partial Thromboplast Time > 150SEC (24-38) Sodium Level 142mmol/L (136-145) Potassium Level 3.9mmol/L (3.5-5.1) Chloride Level 105mmol/L (98-107) Carbon Dioxide Level 23mmol/L (21-32) Anion Gap 14 (6-14) Blood Urea Nitrogen 34mg/dL (8-26) Creatinine 1.8mg/dL (0.7-1.3) Estimated GFR (Cockcroft-Gault) 37.4 Glucose Level 118mg/dL (70-99) Calcium Level 7.1mg/dL (8.5-10.1) Phosphorus Level 4.7mg/dL (2.6-4.7) Magnesium Level 1.8mg/dL (1.8-2.4) Troponin I Quantitative 1.690ng/mL (0.000-0.055) Glucose (Fingerstick) 90mg/dL (70-99) 109mg/dL (70-99) O2 Saturation 96% (92-99) Arterial Blood pH 7.40 (7.35-7.45) Arterial Blood pH (Temp corrected) 7.42 Arterial Blood pCO2 at Patient Temp 31mmHg (35-46) Arterial Blood pCO2 (Temp correct) 30mmHg Arterial Blood pO2 at Patient Temp 94mmHg (65-108) Arterial Blood pO2 (Temp corrected) 89mmHg Arterial Blood HCO3 19mmol/L (21-28) Arterial Blood Base Excess -5mmol/L (-3-3) Test 11/25/16 22:05 11/26/16 00:00 11/26/16 04:55 11/26/16 05:26 White Blood Count 10.8x10^3/uL (4.0-11.0) 13.7x10^3/uL (4.0-11.0) Red Blood Count 3.13x10^6/uL (4.30-5.70) 2.69x10^6/uL (4.30-5.70) Hemoglobin 9.5g/dL (13.0-17.5) 8.1g/dL (13.0-17.5) Hematocrit 27.9% (39.0-53.0) 24.3% (39.0-53.0) Mean Corpuscular Volume 89fL (79-100) 90fL (79-100) Mean Corpuscular Hemoglobin 30pg (25-35) 30pg (25-35) Mean Corpuscular Hemoglobin Concent 34g/dL (31-37) 34g/dL (31-37) Red Cell Distribution Width 14.2% (11.5-14.5) 13.9% (11.5-14.5) Platelet Count 81x10^3/uL (140-400) 107x10^3/uL (140-400) Prothrombin Time 18.2SEC (11.7-14.0) 17.0SEC (11.7-14.0) Prothromb Time International Ratio 1.6 (0.8-1.1) 1.5 (0.8-1.1) Heparin Anti-Xa Act, Unfractionated > 1.10IU/mL (0.30-0.70) 0.24IU/mL (0.30-0.70) Lactic Acid Level 1.2mmol/L (0.4-2.0) Sodium Level 141mmol/L (136-145) 144mmol/L (136-145) Potassium Level 3.8mmol/L (3.5-5.1) 3.5mmol/L (3.5-5.1) Chloride Level 104mmol/L (98-107) 105mmol/L (98-107) Carbon Dioxide Level 23mmol/L (21-32) 20mmol/L (21-32) Anion Gap 14 (6-14) 19 (6-14) Blood Urea Nitrogen 36mg/dL (8-26) 36mg/dL (8-26) Creatinine 2.0mg/dL (0.7-1.3) 2.2mg/dL (0.7-1.3) Estimated GFR (Cockcroft-Gault) 33.1 29.7 Glucose Level 120mg/dL (70-99) 194mg/dL (70-99) Calcium Level 6.9mg/dL (8.5-10.1) 6.6mg/dL (8.5-10.1) Phosphorus Level 5.2mg/dL (2.6-4.7) 6.6mg/dL (2.6-4.7) Magnesium Level 1.7mg/dL (1.8-2.4) 1.6mg/dL (1.8-2.4) Troponin I Quantitative 1.387ng/mL (0.000-0.055) 1.168ng/mL (0.000-0.055) Activated Partial Thromboplast Time 82SEC (24-38) Total Bilirubin 0.6mg/dL (0.2-1.0) Direct Bilirubin 0.2mg/dL (0.0-0.2) Aspartate Amino Transf (AST/SGOT) 117U/L (15-37) Alanine Aminotransferase (ALT/SGPT) 278U/L (16-63) Alkaline Phosphatase 58U/L (46-116) Total Protein 4.7g/dL (6.4-8.2) Albumin 2.1g/dL (3.4-5.0) Lipase 57U/L (73-393) Glucose (Fingerstick) 158mg/dL (70-99) Test 11/26/16 08:25 11/26/16 08:30 11/26/16 11:00 Activated Partial Thromboplast Time 103SEC (24-38) Magnesium Level 2.5mg/dL (1.8-2.4) O2 Saturation 98% (92-99) Arterial Blood pH 7.32 (7.35-7.45) Arterial Blood pCO2 at Patient Temp 31mmHg (35-46) Arterial Blood pO2 at Patient Temp 130mmHg (65-108) Arterial Blood HCO3 16mmol/L (21-28) Arterial Blood Base Excess -9mmol/L (-3-3) FiO2 60 Glucose (Fingerstick) 242mg/dL (70-99) Heparin Anti-Xa Act, Unfractionated 0.27IU/mL (0.30-0.70) Microbiology Micro Microbiology 11/24/16 Blood Culture - Preliminary, Resulted NO GROWTH AFTER 2 DAYS Physical Exam HEENT: Neck Supple W Full Motion Chest: Symmetric LUNGS: Clear to Auscultation, Other (intubated wtih mechanical ventilation ) Heart: S1S2, RRR, no murmurs, other (tele SR- ST) Abdomen: Soft N/T Extremities: Other (ext warm to touch. Mild bilateral hand edema. Mild RLE emeda ) Neurology: alert, follow commands, other (mild sedation. eyes opening; nodding appropriately) Assessment Assessment 1. S/p cardiac arrest; troponin trending downward 2. Respiratory failure; s/p intubation 3. Bilateral DVT 4. ? PE- echo with RV dilation 5. Systolic HF, new - EF 35-40% 6. Leukocytosis 7. Hypomagnesemia 8. Diabetes 9. HAMILTON with ?CKD; CR 2.2 10. Transaminitis; improved 11. Hyperlipidemia 12. ? ischemic bowel; diarrhea slowed Recommendations Re-warmed. Following commands Consider for cardiac cath tomorrow. Monitor labs; Cr sightly worse Renal optimization per nephrology Ventilator management per pulmonary- trial later today? Continue heparin gtt. Supportive care FARIDA ALDRICH MD 11/26/16 9216: CARDIO Progress Notes Plan Plan Patient seen and examined. I agree with above nurse practitioner note. Patient has had a significant recovery over the last 48 hours. He is now extubated and conversing properly. Labs reviewed and notable for elevated creatinine and anemia. Normal cardiac exam with stable blood pressure off all pressors. Bowel ischemia has improved with normalization of Lactate. We'll tentatively plan for a cardiac catheterization tomorrow when cleared by nephrology. Awaiting blood culture positivity and antibiotic therapy from infectious disease. CARMELO POSADAS APRN Nov 26, 2016 12:32 FARIDA ALDRICH MD Nov 26, 2016 18:56
[2016-11-26 12:46] LABS: HCO3 ABG 20 mmol/L (21-28); PCO2 ABG 32 mmHg (35-46); PH ABG 7.41 (7.35-7.45); PO2 ABG 80 mmHg (65-108); SAT O2 ABG 94 % (92-99)
[2016-11-26 12:48] LABS: FIO2 ABG 40
--- NOTE | 2016-11-26 12:48 | PDOC ---
SURGICAL PROGRESS NOTE Subjective Pt intubated but awake alert, no c/o abd pain Vital Signs Vital Signs Date Time Temp Pulse Resp B/P Pulse Ox O2 Delivery O2 Flow Rate FiO2 11/26/16 12:11 98 T-Tube 10.0 11/26/16 12:00 97 136/49 11/26/16 12:00 98.9 15 98.9 I&O Intake and Output 11/26/16 07:00 Intake Total 4546.09 ml Output Total 648 ml Balance 3898.09 ml Intake IV Total 4546.09 ml Output Urine Total 623 ml Gastric Drainage Total 25 ml General: Alert, No acute distress Abdomen: Soft, No tenderness, Other Labs Laboratory Tests Test 11/24/16 13:39 11/24/16 14:47 11/24/16 15:15 11/24/16 15:50 Glucose (Fingerstick) 221mg/dL (70-99) 162mg/dL (70-99) Clostridium difficile Toxin (PCR) Negative (Negative) Sodium Level 147mmol/L (136-145) Potassium Level 3.2mmol/L (3.5-5.1) Chloride Level 111mmol/L (98-107) Carbon Dioxide Level 22mmol/L (21-32) Anion Gap 14 (6-14) Blood Urea Nitrogen 29mg/dL (8-26) Creatinine 1.7mg/dL (0.7-1.3) Estimated GFR (Cockcroft-Gault) 39.9 Glucose Level 128mg/dL (70-99) Calcium Level 7.7mg/dL (8.5-10.1) Phosphorus Level 2.5mg/dL (2.6-4.7) Magnesium Level 1.7mg/dL (1.8-2.4) Troponin I Quantitative 4.950ng/mL (0.000-0.055) Test 11/24/16 16:10 11/24/16 17:00 11/24/16 17:22 11/24/16 18:34 Glucose (Fingerstick) 117mg/dL (70-99) 94mg/dL (70-99) 98mg/dL (70-99) Stool Occult Blood Negative (NEG) Test 11/24/16 19:40 11/24/16 20:47 11/24/16 21:56 11/24/16 22:10 Glucose (Fingerstick) 126mg/dL (70-99) 127mg/dL (70-99) 131mg/dL (70-99) White Blood Count 15.4x10^3/uL (4.0-11.0) Red Blood Count 3.98x10^6/uL (4.30-5.70) Hemoglobin 11.8g/dL (13.0-17.5) Hematocrit 36.3% (39.0-53.0) Mean Corpuscular Volume 91fL (79-100) Mean Corpuscular Hemoglobin 30pg (25-35) Mean Corpuscular Hemoglobin Concent 33g/dL (31-37) Red Cell Distribution Width 13.6% (11.5-14.5) Platelet Count 94x10^3/uL (140-400) Activated Partial Thromboplast Time > 150SEC (24-38) Heparin Anti-Xa Act, Unfractionated > 1.10IU/mL (0.30-0.70) Sodium Level 147mmol/L (136-145) Potassium Level 3.8mmol/L (3.5-5.1) Chloride Level 108mmol/L (98-107) Carbon Dioxide Level 25mmol/L (21-32) Anion Gap 14 (6-14) Blood Urea Nitrogen 32mg/dL (8-26) Creatinine 1.8mg/dL (0.7-1.3) Estimated GFR (Cockcroft-Gault) 37.4 Glucose Level 154mg/dL (70-99) Lactic Acid Level 3.3mmol/L (0.4-2.0) Calcium Level 7.8mg/dL (8.5-10.1) Phosphorus Level 3.4mg/dL (2.6-4.7) Magnesium Level 1.5mg/dL (1.8-2.4) Troponin I Quantitative 6.690ng/mL (0.000-0.055) Test 11/24/16 23:00 11/25/16 00:14 11/25/16 01:19 11/25/16 02:08 Glucose (Fingerstick) 130mg/dL (70-99) 114mg/dL (70-99) 98mg/dL (70-99) Sodium Level 143mmol/L (136-145) Potassium Level 3.9mmol/L (3.5-5.1) Chloride Level 108mmol/L (98-107) Carbon Dioxide Level 22mmol/L (21-32) Anion Gap 13 (6-14) Blood Urea Nitrogen 32mg/dL (8-26) Creatinine 1.7mg/dL (0.7-1.3) Estimated GFR (Cockcroft-Gault) 39.9 Glucose Level 140mg/dL (70-99) Calcium Level 7.3mg/dL (8.5-10.1) Phosphorus Level 3.9mg/dL (2.6-4.7) Magnesium Level 1.4mg/dL (1.8-2.4) Troponin I Quantitative 4.772ng/mL (0.000-0.055) Test 11/25/16 02:21 11/25/16 03:38 11/25/16 04:00 11/25/16 04:48 Glucose (Fingerstick) 101mg/dL (70-99) 128mg/dL (70-99) 149mg/dL (70-99) Activated Partial Thromboplast Time > 150SEC (24-38) Heparin Anti-Xa Act, Unfractionated > 1.10IU/mL (0.30-0.70) Sodium Level 145mmol/L (136-145) Potassium Level 3.4mmol/L (3.5-5.1) Chloride Level 108mmol/L (98-107) Carbon Dioxide Level 20mmol/L (21-32) Anion Gap 17 (6-14) Blood Urea Nitrogen 33mg/dL (8-26) Creatinine 1.8mg/dL (0.7-1.3) Estimated GFR (Cockcroft-Gault) 37.4 Glucose Level 194mg/dL (70-99) Calcium Level 7.2mg/dL (8.5-10.1) Phosphorus Level 4.4mg/dL (2.6-4.7) Magnesium Level 1.4mg/dL (1.8-2.4) Troponin I Quantitative 3.798ng/mL (0.000-0.055) Test 11/25/16 05:49 11/25/16 05:50 11/25/16 05:55 11/25/16 07:48 Glucose (Fingerstick) 149mg/dL (70-99) 106mg/dL (70-99) White Blood Count 13.9x10^3/uL (4.0-11.0) Red Blood Count 3.79x10^6/uL (4.30-5.70) Hemoglobin 11.3g/dL (13.0-17.5) Hematocrit 34.0% (39.0-53.0) Mean Corpuscular Volume 90fL (79-100) Mean Corpuscular Hemoglobin 30pg (25-35) Mean Corpuscular Hemoglobin Concent 33g/dL (31-37) Red Cell Distribution Width 13.9% (11.5-14.5) Platelet Count 96x10^3/uL (140-400) Prothrombin Time 19.9SEC (11.7-14.0) Prothromb Time International Ratio 1.8 (0.8-1.1) Lactic Acid Level 1.8mmol/L (0.4-2.0) Total Bilirubin 0.5mg/dL (0.2-1.0) Direct Bilirubin 0.2mg/dL (0.0-0.2) Aspartate Amino Transf (AST/SGOT) 316U/L (15-37) Alanine Aminotransferase (ALT/SGPT) 500U/L (16-63) Alkaline Phosphatase 76U/L (46-116) Total Protein 5.5g/dL (6.4-8.2) Albumin 2.7g/dL (3.4-5.0) Triglycerides Level 57mg/dL (0-150) Cholesterol Level 72mg/dL (0-200) LDL Cholesterol, Calculated 17mg/dL (0-100) VLDL Cholesterol, Calculated 11mg/dL (0-40) HDL Cholesterol 44mg/dL (40-60) Cholesterol/HDL Ratio 1.6 Lipase 73U/L (73-393) O2 Saturation 98% (92-99) Arterial Blood pH 7.35 (7.35-7.45) Arterial Blood pH (Temp corrected) 7.37 Arterial Blood pCO2 at Patient Temp 39mmHg (35-46) Arterial Blood pCO2 (Temp correct) 36mmHg Arterial Blood pO2 at Patient Temp 125mmHg (65-108) Arterial Blood pO2 (Temp corrected) 114mmHg Arterial Blood HCO3 21mmol/L (21-28) Arterial Blood Base Excess -4mmol/L (-3-3) Methemoglobin 0.2% (0.0-1.9) Carbon Monoxide, Quantitative 0.3% (0.0-1.9) FiO2 70 Test 11/25/16 08:47 11/25/16 10:00 11/25/16 10:01 11/25/16 11:12 Glucose (Fingerstick) 99mg/dL (70-99) 127mg/dL (70-99) 97mg/dL (70-99) Activated Partial Thromboplast Time > 150SEC (24-38) Heparin Anti-Xa Act, Unfractionated > 1.10IU/mL (0.30-0.70) Sodium Level 144mmol/L (136-145) Potassium Level 4.5mmol/L (3.5-5.1) Chloride Level 107mmol/L (98-107) Carbon Dioxide Level 24mmol/L (21-32) Anion Gap 13 (6-14) Blood Urea Nitrogen 33mg/dL (8-26) Creatinine 1.7mg/dL (0.7-1.3) Estimated GFR (Cockcroft-Gault) 39.9 Glucose Level 136mg/dL (70-99) Calcium Level 7.1mg/dL (8.5-10.1) Phosphorus Level 4.9mg/dL (2.6-4.7) Magnesium Level 1.4mg/dL (1.8-2.4) Creatine Kinase 2247U/L (39-308) Troponin I Quantitative 2.508ng/mL (0.000-0.055) Test 11/25/16 12:15 11/25/16 12:23 11/25/16 12:55 11/25/16 13:46 Activated Partial Thromboplast Time > 150SEC (24-38) Sodium Level 143mmol/L (136-145) Potassium Level 4.4mmol/L (3.5-5.1) Chloride Level 107mmol/L (98-107) Carbon Dioxide Level 24mmol/L (21-32) Anion Gap 12 (6-14) Blood Urea Nitrogen 33mg/dL (8-26) Creatinine 1.8mg/dL (0.7-1.3) Estimated GFR (Cockcroft-Gault) 37.4 Glucose Level 118mg/dL (70-99) Calcium Level 7.0mg/dL (8.5-10.1) Phosphorus Level 4.5mg/dL (2.6-4.7) Magnesium Level 1.2mg/dL (1.8-2.4) Troponin I Quantitative 2.233ng/mL (0.000-0.055) Glucose (Fingerstick) 107mg/dL (70-99) 98mg/dL (70-99) Urine Collection Type Unknown Urine Color Red Urine Clarity Turbid Urine pH 5.0 Urine Specific [place] 1.020 Urine Protein 30mg/dL (NEG-TRACE) Urine Glucose (UA) Negativemg/dL (NEG) Urine Ketones (Stick) Tracemg/dL (NEG) Urine Blood Large (NEG) Urine Nitrite Negative (NEG) Urine Bilirubin Negative (NEG) Urine Urobilinogen Dipstick 0.2mg/dL (0.2 mg/dL) Urine Leukocyte Esterase Moderate (NEG) Urine RBC Tntc/HPF (0-2) Urine WBC 5-10/HPF (0-4) Urine Bacteria Few/HPF (0-FEW) Urine Random Creatinine 90.9mg/dL (Not Estab.) Urine Random Sodium 28mmol/L (Not Estab.) Test 11/25/16 14:00 11/25/16 14:50 11/25/16 15:45 11/25/16 15:48 O2 Saturation 96% (92-99) Arterial Blood pH 7.34 (7.35-7.45) Arterial Blood pCO2 at Patient Temp 39mmHg (35-46) Arterial Blood pO2 at Patient Temp 93mmHg (65-108) Arterial Blood HCO3 20mmol/L (21-28) Arterial Blood Base Excess -5mmol/L (-3-3) FiO2 60 Glucose (Fingerstick) 95mg/dL (70-99) 106mg/dL (70-99) Lactic Acid Level 1.5mmol/L (0.4-2.0) Test 11/25/16 15:55 11/25/16 16:58 11/25/16 18:29 11/25/16 18:45 White Blood Count 11.6x10^3/uL (4.0-11.0) Red Blood Count 3.45x10^6/uL (4.30-5.70) Hemoglobin 10.3g/dL (13.0-17.5) Hematocrit 30.6% (39.0-53.0) Mean Corpuscular Volume 89fL (79-100) Mean Corpuscular Hemoglobin 30pg (25-35) Mean Corpuscular Hemoglobin Concent 34g/dL (31-37) Red Cell Distribution Width 14.2% (11.5-14.5) Platelet Count 78x10^3/uL (140-400) Prothrombin Time 20.5SEC (11.7-14.0) Prothromb Time International Ratio 1.9 (0.8-1.1) Activated Partial Thromboplast Time > 150SEC (24-38) Heparin Anti-Xa Act, Unfractionated > 1.10IU/mL (0.30-0.70) Sodium Level 143mmol/L (136-145) Potassium Level 3.9mmol/L (3.5-5.1) 3.6mmol/L (3.5-5.1) Chloride Level 106mmol/L (98-107) Carbon Dioxide Level 23mmol/L (21-32) Anion Gap 14 (6-14) Blood Urea Nitrogen 33mg/dL (8-26) Creatinine 1.8mg/dL (0.7-1.3) Estimated GFR (Cockcroft-Gault) 37.4 Glucose Level 116mg/dL (70-99) Calcium Level 7.1mg/dL (8.5-10.1) Phosphorus Level 4.4mg/dL (2.6-4.7) Magnesium Level 1.8mg/dL (1.8-2.4) Troponin I Quantitative 1.764ng/mL (0.000-0.055) Glucose (Fingerstick) 105mg/dL (70-99) 110mg/dL (70-99) Test 11/25/16 19:38 11/25/16 19:55 11/25/16 20:55 11/25/16 21:59 Glucose (Fingerstick) 92mg/dL (70-99) 90mg/dL (70-99) 109mg/dL (70-99) Activated Partial Thromboplast Time > 150SEC (24-38) Sodium Level 142mmol/L (136-145) Potassium Level 3.9mmol/L (3.5-5.1) Chloride Level 105mmol/L (98-107) Carbon Dioxide Level 23mmol/L (21-32) Anion Gap 14 (6-14) Blood Urea Nitrogen 34mg/dL (8-26) Creatinine 1.8mg/dL (0.7-1.3) Estimated GFR (Cockcroft-Gault) 37.4 Glucose Level 118mg/dL (70-99) Calcium Level 7.1mg/dL (8.5-10.1) Phosphorus Level 4.7mg/dL (2.6-4.7) Magnesium Level 1.8mg/dL (1.8-2.4) Troponin I Quantitative 1.690ng/mL (0.000-0.055) Test 11/25/16 22:00 11/25/16 22:05 11/26/16 00:00 11/26/16 04:55 O2 Saturation 96% (92-99) Arterial Blood pH 7.40 (7.35-7.45) Arterial Blood pH (Temp corrected) 7.42 Arterial Blood pCO2 at Patient Temp 31mmHg (35-46) Arterial Blood pCO2 (Temp correct) 30mmHg Arterial Blood pO2 at Patient Temp 94mmHg (65-108) Arterial Blood pO2 (Temp corrected) 89mmHg Arterial Blood HCO3 19mmol/L (21-28) Arterial Blood Base Excess -5mmol/L (-3-3) White Blood Count 10.8x10^3/uL (4.0-11.0) 13.7x10^3/uL (4.0-11.0) Red Blood Count 3.13x10^6/uL (4.30-5.70) 2.69x10^6/uL (4.30-5.70) Hemoglobin 9.5g/dL (13.0-17.5) 8.1g/dL (13.0-17.5) Hematocrit 27.9% (39.0-53.0) 24.3% (39.0-53.0) Mean Corpuscular Volume 89fL (79-100) 90fL (79-100) Mean Corpuscular Hemoglobin 30pg (25-35) 30pg (25-35) Mean Corpuscular Hemoglobin Concent 34g/dL (31-37) 34g/dL (31-37) Red Cell Distribution Width 14.2% (11.5-14.5) 13.9% (11.5-14.5) Platelet Count 81x10^3/uL (140-400) 107x10^3/uL (140-400) Prothrombin Time 18.2SEC (11.7-14.0) 17.0SEC (11.7-14.0) Prothromb Time International Ratio 1.6 (0.8-1.1) 1.5 (0.8-1.1) Heparin Anti-Xa Act, Unfractionated > 1.10IU/mL (0.30-0.70) 0.24IU/mL (0.30-0.70) Lactic Acid Level 1.2mmol/L (0.4-2.0) Sodium Level 141mmol/L (136-145) 144mmol/L (136-145) Potassium Level 3.8mmol/L (3.5-5.1) 3.5mmol/L (3.5-5.1) Chloride Level 104mmol/L (98-107) 105mmol/L (98-107) Carbon Dioxide Level 23mmol/L (21-32) 20mmol/L (21-32) Anion Gap 14 (6-14) 19 (6-14) Blood Urea Nitrogen 36mg/dL (8-26) 36mg/dL (8-26) Creatinine 2.0mg/dL (0.7-1.3) 2.2mg/dL (0.7-1.3) Estimated GFR (Cockcroft-Gault) 33.1 29.7 Glucose Level 120mg/dL (70-99) 194mg/dL (70-99) Calcium Level 6.9mg/dL (8.5-10.1) 6.6mg/dL (8.5-10.1) Phosphorus Level 5.2mg/dL (2.6-4.7) 6.6mg/dL (2.6-4.7) Magnesium Level 1.7mg/dL (1.8-2.4) 1.6mg/dL (1.8-2.4) Troponin I Quantitative 1.387ng/mL (0.000-0.055) 1.168ng/mL (0.000-0.055) Activated Partial Thromboplast Time 82SEC (24-38) Total Bilirubin 0.6mg/dL (0.2-1.0) Direct Bilirubin 0.2mg/dL (0.0-0.2) Aspartate Amino Transf (AST/SGOT) 117U/L (15-37) Alanine Aminotransferase (ALT/SGPT) 278U/L (16-63) Alkaline Phosphatase 58U/L (46-116) Total Protein 4.7g/dL (6.4-8.2) Albumin 2.1g/dL (3.4-5.0) Lipase 57U/L (73-393) Test 11/26/16 05:26 11/26/16 08:25 11/26/16 08:30 11/26/16 11:00 Glucose (Fingerstick) 158mg/dL (70-99) 242mg/dL (70-99) Activated Partial Thromboplast Time 103SEC (24-38) Magnesium Level 2.5mg/dL (1.8-2.4) O2 Saturation 98% (92-99) Arterial Blood pH 7.32 (7.35-7.45) Arterial Blood pCO2 at Patient Temp 31mmHg (35-46) Arterial Blood pO2 at Patient Temp 130mmHg (65-108) Arterial Blood HCO3 16mmol/L (21-28) Arterial Blood Base Excess -9mmol/L (-3-3) FiO2 60 Heparin Anti-Xa Act, Unfractionated 0.27IU/mL (0.30-0.70) Test 11/26/16 12:01 Glucose (Fingerstick) 251mg/dL (70-99) Laboratory Tests Test 11/25/16 12:55 11/25/16 13:46 11/25/16 14:00 11/25/16 14:50 Urine Collection Type Unknown Urine Color Red Urine Clarity Turbid Urine pH 5.0 Urine Specific [place] 1.020 Urine Protein 30mg/dL (NEG-TRACE) Urine Glucose (UA) Negativemg/dL (NEG) Urine Ketones (Stick) Tracemg/dL (NEG) Urine Blood Large (NEG) Urine Nitrite Negative (NEG) Urine Bilirubin Negative (NEG) Urine Urobilinogen Dipstick 0.2mg/dL (0.2 mg/dL) Urine Leukocyte Esterase Moderate (NEG) Urine RBC Tntc/HPF (0-2) Urine WBC 5-10/HPF (0-4) Urine Bacteria Few/HPF (0-FEW) Urine Random Creatinine 90.9mg/dL (Not Estab.) Urine Random Sodium 28mmol/L (Not Estab.) Glucose (Fingerstick) 98mg/dL (70-99) 95mg/dL (70-99) O2 Saturation 96% (92-99) Arterial Blood pH 7.34 (7.35-7.45) Arterial Blood pCO2 at Patient Temp 39mmHg (35-46) Arterial Blood pO2 at Patient Temp 93mmHg (65-108) Arterial Blood HCO3 20mmol/L (21-28) Arterial Blood Base Excess -5mmol/L (-3-3) FiO2 60 Test 11/25/16 15:45 11/25/16 15:48 11/25/16 15:55 11/25/16 16:58 Lactic Acid Level 1.5mmol/L (0.4-2.0) Glucose (Fingerstick) 106mg/dL (70-99) 105mg/dL (70-99) White Blood Count 11.6x10^3/uL (4.0-11.0) Red Blood Count 3.45x10^6/uL (4.30-5.70) Hemoglobin 10.3g/dL (13.0-17.5) Hematocrit 30.6% (39.0-53.0) Mean Corpuscular Volume 89fL (79-100) Mean Corpuscular Hemoglobin 30pg (25-35) Mean Corpuscular Hemoglobin Concent 34g/dL (31-37) Red Cell Distribution Width 14.2% (11.5-14.5) Platelet Count 78x10^3/uL (140-400) Prothrombin Time 20.5SEC (11.7-14.0) Prothromb Time International Ratio 1.9 (0.8-1.1) Activated Partial Thromboplast Time > 150SEC (24-38) Heparin Anti-Xa Act, Unfractionated > 1.10IU/mL (0.30-0.70) Sodium Level 143mmol/L (136-145) Potassium Level 3.9mmol/L (3.5-5.1) Chloride Level 106mmol/L (98-107) Carbon Dioxide Level 23mmol/L (21-32) Anion Gap 14 (6-14) Blood Urea Nitrogen 33mg/dL (8-26) Creatinine 1.8mg/dL (0.7-1.3) Estimated GFR (Cockcroft-Gault) 37.4 Glucose Level 116mg/dL (70-99) Calcium Level 7.1mg/dL (8.5-10.1) Phosphorus Level 4.4mg/dL (2.6-4.7) Magnesium Level 1.8mg/dL (1.8-2.4) Troponin I Quantitative 1.764ng/mL (0.000-0.055) Test 11/25/16 18:29 11/25/16 18:45 11/25/16 19:38 11/25/16 19:55 Glucose (Fingerstick) 110mg/dL (70-99) 92mg/dL (70-99) Potassium Level 3.6mmol/L (3.5-5.1) 3.9mmol/L (3.5-5.1) Activated Partial Thromboplast Time > 150SEC (24-38) Sodium Level 142mmol/L (136-145) Chloride Level 105mmol/L (98-107) Carbon Dioxide Level 23mmol/L (21-32) Anion Gap 14 (6-14) Blood Urea Nitrogen 34mg/dL (8-26) Creatinine 1.8mg/dL (0.7-1.3) Estimated GFR (Cockcroft-Gault) 37.4 Glucose Level 118mg/dL (70-99) Calcium Level 7.1mg/dL (8.5-10.1) Phosphorus Level 4.7mg/dL (2.6-4.7) Magnesium Level 1.8mg/dL (1.8-2.4) Troponin I Quantitative 1.690ng/mL (0.000-0.055) Test 11/25/16 20:55 11/25/16 21:59 11/25/16 22:00 11/25/16 22:05 Glucose (Fingerstick) 90mg/dL (70-99) 109mg/dL (70-99) O2 Saturation 96% (92-99) Arterial Blood pH 7.40 (7.35-7.45) Arterial Blood pH (Temp corrected) 7.42 Arterial Blood pCO2 at Patient Temp 31mmHg (35-46) Arterial Blood pCO2 (Temp correct) 30mmHg Arterial Blood pO2 at Patient Temp 94mmHg (65-108) Arterial Blood pO2 (Temp corrected) 89mmHg Arterial Blood HCO3 19mmol/L (21-28) Arterial Blood Base Excess -5mmol/L (-3-3) White Blood Count 10.8x10^3/uL (4.0-11.0) Red Blood Count 3.13x10^6/uL (4.30-5.70) Hemoglobin 9.5g/dL (13.0-17.5) Hematocrit 27.9% (39.0-53.0) Mean Corpuscular Volume 89fL (79-100) Mean Corpuscular Hemoglobin 30pg (25-35) Mean Corpuscular Hemoglobin Concent 34g/dL (31-37) Red Cell Distribution Width 14.2% (11.5-14.5) Platelet Count 81x10^3/uL (140-400) Prothrombin Time 18.2SEC (11.7-14.0) Prothromb Time International Ratio 1.6 (0.8-1.1) Heparin Anti-Xa Act, Unfractionated > 1.10IU/mL (0.30-0.70) Lactic Acid Level 1.2mmol/L (0.4-2.0) Test 11/26/16 00:00 11/26/16 04:55 11/26/16 05:26 11/26/16 08:25 Sodium Level 141mmol/L (136-145) 144mmol/L (136-145) Potassium Level 3.8mmol/L (3.5-5.1) 3.5mmol/L (3.5-5.1) Chloride Level 104mmol/L (98-107) 105mmol/L (98-107) Carbon Dioxide Level 23mmol/L (21-32) 20mmol/L (21-32) Anion Gap 14 (6-14) 19 (6-14) Blood Urea Nitrogen 36mg/dL (8-26) 36mg/dL (8-26) Creatinine 2.0mg/dL (0.7-1.3) 2.2mg/dL (0.7-1.3) Estimated GFR (Cockcroft-Gault) 33.1 29.7 Glucose Level 120mg/dL (70-99) 194mg/dL (70-99) Calcium Level 6.9mg/dL (8.5-10.1) 6.6mg/dL (8.5-10.1) Phosphorus Level 5.2mg/dL (2.6-4.7) 6.6mg/dL (2.6-4.7) Magnesium Level 1.7mg/dL (1.8-2.4) 1.6mg/dL (1.8-2.4) 2.5mg/dL (1.8-2.4) Troponin I Quantitative 1.387ng/mL (0.000-0.055) 1.168ng/mL (0.000-0.055) White Blood Count 13.7x10^3/uL (4.0-11.0) Red Blood Count 2.69x10^6/uL (4.30-5.70) Hemoglobin 8.1g/dL (13.0-17.5) Hematocrit 24.3% (39.0-53.0) Mean Corpuscular Volume 90fL (79-100) Mean Corpuscular Hemoglobin 30pg (25-35) Mean Corpuscular Hemoglobin Concent 34g/dL (31-37) Red Cell Distribution Width 13.9% (11.5-14.5) Platelet Count 107x10^3/uL (140-400) Prothrombin Time 17.0SEC (11.7-14.0) Prothromb Time International Ratio 1.5 (0.8-1.1) Activated Partial Thromboplast Time 82SEC (24-38) 103SEC (24-38) Heparin Anti-Xa Act, Unfractionated 0.24IU/mL (0.30-0.70) Total Bilirubin 0.6mg/dL (0.2-1.0) Direct Bilirubin 0.2mg/dL (0.0-0.2) Aspartate Amino Transf (AST/SGOT) 117U/L (15-37) Alanine Aminotransferase (ALT/SGPT) 278U/L (16-63) Alkaline Phosphatase 58U/L (46-116) Total Protein 4.7g/dL (6.4-8.2) Albumin 2.1g/dL (3.4-5.0) Lipase 57U/L (73-393) Glucose (Fingerstick) 158mg/dL (70-99) Test 11/26/16 08:30 11/26/16 11:00 11/26/16 12:01 O2 Saturation 98% (92-99) Arterial Blood pH 7.32 (7.35-7.45) Arterial Blood pCO2 at Patient Temp 31mmHg (35-46) Arterial Blood pO2 at Patient Temp 130mmHg (65-108) Arterial Blood HCO3 16mmol/L (21-28) Arterial Blood Base Excess -9mmol/L (-3-3) FiO2 60 Glucose (Fingerstick) 242mg/dL (70-99) 251mg/dL (70-99) Heparin Anti-Xa Act, Unfractionated 0.27IU/mL (0.30-0.70) Problem List Problems Medical Problems: (1) Cardiac arrest Status: Acute Assessment/Plan concern for ischemic bowel no obvious bleeding currently abd exam benign, lactic acid not elevated no surgical plans Problems: MALCOLM RAYMOND MD Nov 26, 2016 12:48
[2016-11-26] MEDS ORDERED: CALCIUM CHLORIDE 2,000 MG in IV NORMAL SALINE 100ML 100 ML IV ONE (13:15)
[2016-11-26] MEDS: STERILE WATER IV SCH (13:20)
[2016-11-26] MEDS: SODIUM BICARBONATE IV SCH (13:20)
[2016-11-26 13:36] LABS: BODY TEMP ABG 90.8 DEG
[2016-11-26] MEDS: ONDANSETRON PF 4 MG/2 ML VIAL. IV PRN (13:56)
[2016-11-26] MEDS: TPN PER PHARMACY MC PRN (14:25)
[2016-11-26] MEDS: FAMOTIDINE 20 MG/2 ML VIAL IVP SCH (21:27)
[2016-11-26] MEDS ORDERED: [UNRECOGNIZED DRUG - OTHER] IV SCH ×9 (22:00)
[2016-11-26] MEDS ORDERED: AMINO ACIDS IV SCH ×9 (22:00)
[2016-11-26] MEDS ORDERED: DEXTROSE 70% IV SCH ×9 (22:00)
[2016-11-26] MEDS ORDERED: TOTAL PARENTERAL NUTRITION IV SCH ×9 (22:00)
[2016-11-27] VITALS (36 sets, daily range): BP systolic 128–221; BP diastolic 1–70
[2016-11-27] MEDS: STERILE WATER IV SCH (00:56)
[2016-11-27] MEDS: SODIUM BICARBONATE IV SCH (00:56)
[2016-11-27] MEDS: PIPERACILLIN/TAZOBACTAM 3.375 GM in IV NORMAL SALINE 50ML 50 ML IV SCH ×4 (00:56→18:00)
[2016-11-27] MEDS: HEPARIN 25,000UTS/500ML PREMIX 500 ML IV PRN (04:21)
[2016-11-27] MEDS ORDERED: ALBUTEROL SULFATE 2.5 MG/3 ML NEBU. NEB ONE (06:45)
--- NOTE | 2016-11-27 07:58 | PDOC ---
Infectious Disease Note Subjective Subjective extubated, awake, follows command ROS ROS no n/v/d/pain Vital Sign Vital Signs Vital Signs Date Time Temp Pulse Resp B/P Pulse Ox O2 Delivery O2 Flow Rate FiO2 11/27/16 07:22 94 Nasal Cannula 6.0 11/27/16 06:00 98 15 149/49 11/27/16 04:00 100.3 100.3 Physical Exam PHYSICAL EXAM GENERAL: NAD, Alert HEENT: PERRL, OC/OP NECK: Supple, no JVD, no LN LUNGS: Clear HEART: S1S2, no gallop, no murmur ABD: Soft, NT, no organomegaly, no rebound EXT: No edema, no cyanosis ANY [employer]: Alert, follows some command SKIN: No rash IV: ok Labs Lab Laboratory Tests Test 11/26/16 08:25 11/26/16 08:30 11/26/16 11:00 11/26/16 12:01 Activated Partial Thromboplast Time 103SEC (24-38) Magnesium Level 2.5mg/dL (1.8-2.4) O2 Saturation 98% (92-99) Arterial Blood pH 7.32 (7.35-7.45) Arterial Blood pCO2 at Patient Temp 31mmHg (35-46) Arterial Blood pO2 at Patient Temp 130mmHg (65-108) Arterial Blood HCO3 16mmol/L (21-28) Arterial Blood Base Excess -9mmol/L (-3-3) FiO2 60 Glucose (Fingerstick) 242mg/dL (70-99) 251mg/dL (70-99) Heparin Anti-Xa Act, Unfractionated 0.27IU/mL (0.30-0.70) Test 11/26/16 12:40 11/26/16 17:00 11/26/16 17:09 11/26/16 23:30 O2 Saturation 94% (92-99) Arterial Blood pH 7.41 (7.35-7.45) Arterial Blood pCO2 at Patient Temp 32mmHg (35-46) Arterial Blood pO2 at Patient Temp 80mmHg (65-108) Arterial Blood HCO3 20mmol/L (21-28) Arterial Blood Base Excess -4mmol/L (-3-3) FiO2 40 Heparin Anti-Xa Act, Unfractionated 0.50IU/mL (0.30-0.70) 0.36IU/mL (0.30-0.70) Glucose (Fingerstick) 148mg/dL (70-99) Test 11/27/16 06:00 Heparin Anti-Xa Act, Unfractionated 0.71IU/mL (0.30-0.70) Creatine Kinase 774U/L (39-308) Micro BC 1/4 G + cocci Objective Assessment S/P VT/VF Cardiac arrest, on hypothermia protocol DVT suspected PE Suspected ischemic bowel Lactic acidosis Leukocytosis likely reactive BC 1/4 G + cocci Plan Plan of Care supportive care cont zosyn for now DANI DIAMOND MD Nov 27, 2016 07:58
[2016-11-27] MEDS: INSULIN ASPART 300 UNITS/3 ML INSULN.PEN SQ SCH ×3 (08:00→19:43)
--- NOTE | 2016-11-27 08:26 | PDOC ---
PROGRESS NOTES Chief Complaint Chief Complaint Cardiac arrest ASSESSMENT AND PLAN; 1. Cardiac arrest: s/p hypothermia 2. Respir failure: extubated 11/26 3. DVT: Bilateral LE. 4. CHF: systolic (EF 35-40%). new. 5. ?[place] with CKD: 6. Leukocytosis: reactive. 7. Transaminitis: 8. DM2: 9. HLD: on statin 10: FAtty liver, asymptomatic cholelithiasis 40 min CC time History of Present Illness History of Present Illness Extubated yesterday, weak but understands and is appropriate LAbs reviewed Imaging I have personally reviewed: LE Dopplers: Suspect deep venous thrombi in the bilateral popliteal segments of the lower extremities with more proximal extension to the mid superficial femoral vein on the right side. Bilateral lower extremity below-knee venous structures were not well-visualized PLAN: [facility] today dc insulin gtt and epi gtt Transfer to C ICU Vitals Vitals Vital Signs Date Time Temp Pulse Resp B/P Pulse Ox O2 Delivery O2 Flow Rate FiO2 11/27/16 07:22 94 Nasal Cannula 6.0 11/27/16 06:00 98 15 149/49 11/27/16 04:00 100.3 100.3 Physical Exam General: severe distress (intub.ed), Other (sed) Heart: Regular rate, Other (distant heart tones) Lungs: Clear Abdomen: Soft, No tenderness, Other Extremities: No cyanosis, Other (1+ LE edema R) Skin: No rashes, No breakdown, No significant lesion Labs LABS Laboratory Tests Test 11/26/16 08:25 11/26/16 08:30 11/26/16 11:00 11/26/16 12:01 Activated Partial Thromboplast Time 103SEC (24-38) Magnesium Level 2.5mg/dL (1.8-2.4) O2 Saturation 98% (92-99) Arterial Blood pH 7.32 (7.35-7.45) Arterial Blood pCO2 at Patient Temp 31mmHg (35-46) Arterial Blood pO2 at Patient Temp 130mmHg (65-108) Arterial Blood HCO3 16mmol/L (21-28) Arterial Blood Base Excess -9mmol/L (-3-3) FiO2 60 Glucose (Fingerstick) 242mg/dL (70-99) 251mg/dL (70-99) Heparin Anti-Xa Act, Unfractionated 0.27IU/mL (0.30-0.70) Test 11/26/16 12:40 11/26/16 17:00 11/26/16 17:09 11/26/16 23:30 O2 Saturation 94% (92-99) Arterial Blood pH 7.41 (7.35-7.45) Arterial Blood pCO2 at Patient Temp 32mmHg (35-46) Arterial Blood pO2 at Patient Temp 80mmHg (65-108) Arterial Blood HCO3 20mmol/L (21-28) Arterial Blood Base Excess -4mmol/L (-3-3) FiO2 40 Heparin Anti-Xa Act, Unfractionated 0.50IU/mL (0.30-0.70) 0.36IU/mL (0.30-0.70) Glucose (Fingerstick) 148mg/dL (70-99) Test 11/27/16 06:00 Heparin Anti-Xa Act, Unfractionated 0.71IU/mL (0.30-0.70) Creatine Kinase 774U/L (39-308) Review of Systems Review of Systems weak, the rest ROS cant be obtained Assessment and Plan Assessmemt and Plan Problems Medical Problems: (1) Cardiac arrest Status: Acute Problems: Comment Review of Relevant I have reviewed the following items rodolfo (where applicable) has been applied. Labs Laboratory Tests Test 11/25/16 08:47 11/25/16 10:00 11/25/16 10:01 11/25/16 11:12 Glucose (Fingerstick) 99mg/dL (70-99) 127mg/dL (70-99) 97mg/dL (70-99) Activated Partial Thromboplast Time > 150SEC (24-38) Heparin Anti-Xa Act, Unfractionated > 1.10IU/mL (0.30-0.70) Sodium Level 144mmol/L (136-145) Potassium Level 4.5mmol/L (3.5-5.1) Chloride Level 107mmol/L (98-107) Carbon Dioxide Level 24mmol/L (21-32) Anion Gap 13 (6-14) Blood Urea Nitrogen 33mg/dL (8-26) Creatinine 1.7mg/dL (0.7-1.3) Estimated GFR (Cockcroft-Gault) 39.9 Glucose Level 136mg/dL (70-99) Calcium Level 7.1mg/dL (8.5-10.1) Phosphorus Level 4.9mg/dL (2.6-4.7) Magnesium Level 1.4mg/dL (1.8-2.4) Creatine Kinase 2247U/L (39-308) Troponin I Quantitative 2.508ng/mL (0.000-0.055) Test 11/25/16 12:15 11/25/16 12:23 11/25/16 12:55 11/25/16 13:46 Activated Partial Thromboplast Time > 150SEC (24-38) Sodium Level 143mmol/L (136-145) Potassium Level 4.4mmol/L (3.5-5.1) Chloride Level 107mmol/L (98-107) Carbon Dioxide Level 24mmol/L (21-32) Anion Gap 12 (6-14) Blood Urea Nitrogen 33mg/dL (8-26) Creatinine 1.8mg/dL (0.7-1.3) Estimated GFR (Cockcroft-Gault) 37.4 Glucose Level 118mg/dL (70-99) Calcium Level 7.0mg/dL (8.5-10.1) Phosphorus Level 4.5mg/dL (2.6-4.7) Magnesium Level 1.2mg/dL (1.8-2.4) Troponin I Quantitative 2.233ng/mL (0.000-0.055) Glucose (Fingerstick) 107mg/dL (70-99) 98mg/dL (70-99) Urine Collection Type Unknown Urine Color Red Urine Clarity Turbid Urine pH 5.0 Urine Specific [place] 1.020 Urine Protein 30mg/dL (NEG-TRACE) Urine Glucose (UA) Negativemg/dL (NEG) Urine Ketones (Stick) Tracemg/dL (NEG) Urine Blood Large (NEG) Urine Nitrite Negative (NEG) Urine Bilirubin Negative (NEG) Urine Urobilinogen Dipstick 0.2mg/dL (0.2 mg/dL) Urine Leukocyte Esterase Moderate (NEG) Urine RBC Tntc/HPF (0-2) Urine WBC 5-10/HPF (0-4) Urine Bacteria Few/HPF (0-FEW) Urine Random Creatinine 96.1mg/dL (Not Estab.) Urine Random Sodium 28mmol/L (Not Estab.) Test 11/25/16 14:00 11/25/16 14:50 11/25/16 15:45 11/25/16 15:48 O2 Saturation 96% (92-99) Arterial Blood pH 7.34 (7.35-7.45) Arterial Blood pCO2 at Patient Temp 39mmHg (35-46) Arterial Blood pO2 at Patient Temp 93mmHg (65-108) Arterial Blood HCO3 20mmol/L (21-28) Arterial Blood Base Excess -5mmol/L (-3-3) FiO2 60 Glucose (Fingerstick) 95mg/dL (70-99) 106mg/dL (70-99) Lactic Acid Level 1.5mmol/L (0.4-2.0) Test 11/25/16 15:55 11/25/16 16:58 11/25/16 18:29 11/25/16 18:45 White Blood Count 11.6x10^3/uL (4.0-11.0) Red Blood Count 3.45x10^6/uL (4.30-5.70) Hemoglobin 10.3g/dL (13.0-17.5) Hematocrit 30.6% (39.0-53.0) Mean Corpuscular Volume 89fL (79-100) Mean Corpuscular Hemoglobin 30pg (25-35) Mean Corpuscular Hemoglobin Concent 34g/dL (31-37) Red Cell Distribution Width 14.2% (11.5-14.5) Platelet Count 78x10^3/uL (140-400) Prothrombin Time 20.5SEC (11.7-14.0) Prothromb Time International Ratio 1.9 (0.8-1.1) Activated Partial Thromboplast Time > 150SEC (24-38) Heparin Anti-Xa Act, Unfractionated > 1.10IU/mL (0.30-0.70) Sodium Level 143mmol/L (136-145) Potassium Level 3.9mmol/L (3.5-5.1) 3.6mmol/L (3.5-5.1) Chloride Level 106mmol/L (98-107) Carbon Dioxide Level 23mmol/L (21-32) Anion Gap 14 (6-14) Blood Urea Nitrogen 33mg/dL (8-26) Creatinine 1.8mg/dL (0.7-1.3) Estimated GFR (Cockcroft-Gault) 37.4 Glucose Level 116mg/dL (70-99) Calcium Level 7.1mg/dL (8.5-10.1) Phosphorus Level 4.4mg/dL (2.6-4.7) Magnesium Level 1.8mg/dL (1.8-2.4) Troponin I Quantitative 1.764ng/mL (0.000-0.055) Glucose (Fingerstick) 105mg/dL (70-99) 110mg/dL (70-99) Test 11/25/16 19:38 11/25/16 19:55 11/25/16 20:55 11/25/16 21:59 Glucose (Fingerstick) 92mg/dL (70-99) 90mg/dL (70-99) 109mg/dL (70-99) Activated Partial Thromboplast Time > 150SEC (24-38) Sodium Level 142mmol/L (136-145) Potassium Level 3.9mmol/L (3.5-5.1) Chloride Level 105mmol/L (98-107) Carbon Dioxide Level 23mmol/L (21-32) Anion Gap 14 (6-14) Blood Urea Nitrogen 34mg/dL (8-26) Creatinine 1.8mg/dL (0.7-1.3) Estimated GFR (Cockcroft-Gault) 37.4 Glucose Level 118mg/dL (70-99) Calcium Level 7.1mg/dL (8.5-10.1) Phosphorus Level 4.7mg/dL (2.6-4.7) Magnesium Level 1.8mg/dL (1.8-2.4) Troponin I Quantitative 1.690ng/mL (0.000-0.055) Test 11/25/16 22:00 11/25/16 22:05 11/26/16 00:00 11/26/16 04:55 O2 Saturation 96% (92-99) Arterial Blood pH 7.40 (7.35-7.45) Arterial Blood pH (Temp corrected) 7.42 Arterial Blood pCO2 at Patient Temp 31mmHg (35-46) Arterial Blood pCO2 (Temp correct) 30mmHg Arterial Blood pO2 at Patient Temp 94mmHg (65-108) Arterial Blood pO2 (Temp corrected) 89mmHg Arterial Blood HCO3 19mmol/L (21-28) Arterial Blood Base Excess -5mmol/L (-3-3) White Blood Count 10.8x10^3/uL (4.0-11.0) 13.7x10^3/uL (4.0-11.0) Red Blood Count 3.13x10^6/uL (4.30-5.70) 2.69x10^6/uL (4.30-5.70) Hemoglobin 9.5g/dL (13.0-17.5) 8.1g/dL (13.0-17.5) Hematocrit 27.9% (39.0-53.0) 24.3% (39.0-53.0) Mean Corpuscular Volume 89fL (79-100) 90fL (79-100) Mean Corpuscular Hemoglobin 30pg (25-35) 30pg (25-35) Mean Corpuscular Hemoglobin Concent 34g/dL (31-37) 34g/dL (31-37) Red Cell Distribution Width 14.2% (11.5-14.5) 13.9% (11.5-14.5) Platelet Count 81x10^3/uL (140-400) 107x10^3/uL (140-400) Prothrombin Time 18.2SEC (11.7-14.0) 17.0SEC (11.7-14.0) Prothromb Time International Ratio 1.6 (0.8-1.1) 1.5 (0.8-1.1) Heparin Anti-Xa Act, Unfractionated > 1.10IU/mL (0.30-0.70) 0.24IU/mL (0.30-0.70) Lactic Acid Level 1.2mmol/L (0.4-2.0) Sodium Level 141mmol/L (136-145) 144mmol/L (136-145) Potassium Level 3.8mmol/L (3.5-5.1) 3.5mmol/L (3.5-5.1) Chloride Level 104mmol/L (98-107) 105mmol/L (98-107) Carbon Dioxide Level 23mmol/L (21-32) 20mmol/L (21-32) Anion Gap 14 (6-14) 19 (6-14) Blood Urea Nitrogen 36mg/dL (8-26) 36mg/dL (8-26) Creatinine 2.0mg/dL (0.7-1.3) 2.2mg/dL (0.7-1.3) Estimated GFR (Cockcroft-Gault) 33.1 29.7 Glucose Level 120mg/dL (70-99) 194mg/dL (70-99) Calcium Level 6.9mg/dL (8.5-10.1) 6.6mg/dL (8.5-10.1) Phosphorus Level 5.2mg/dL (2.6-4.7) 6.6mg/dL (2.6-4.7) Magnesium Level 1.7mg/dL (1.8-2.4) 1.6mg/dL (1.8-2.4) Troponin I Quantitative 1.387ng/mL (0.000-0.055) 1.168ng/mL (0.000-0.055) Activated Partial Thromboplast Time 82SEC (24-38) Total Bilirubin 0.6mg/dL (0.2-1.0) Direct Bilirubin 0.2mg/dL (0.0-0.2) Aspartate Amino Transf (AST/SGOT) 117U/L (15-37) Alanine Aminotransferase (ALT/SGPT) 278U/L (16-63) Alkaline Phosphatase 58U/L (46-116) Total Protein 4.7g/dL (6.4-8.2) Albumin 2.1g/dL (3.4-5.0) Lipase 57U/L (73-393) Test 11/26/16 05:26 11/26/16 08:25 11/26/16 08:30 11/26/16 11:00 Glucose (Fingerstick) 158mg/dL (70-99) 242mg/dL (70-99) Activated Partial Thromboplast Time 103SEC (24-38) Magnesium Level 2.5mg/dL (1.8-2.4) O2 Saturation 98% (92-99) Arterial Blood pH 7.32 (7.35-7.45) Arterial Blood pCO2 at Patient Temp 31mmHg (35-46) Arterial Blood pO2 at Patient Temp 130mmHg (65-108) Arterial Blood HCO3 16mmol/L (21-28) Arterial Blood Base Excess -9mmol/L (-3-3) FiO2 60 Heparin Anti-Xa Act, Unfractionated 0.27IU/mL (0.30-0.70) Test 11/26/16 12:01 11/26/16 12:40 11/26/16 17:00 11/26/16 17:09 Glucose (Fingerstick) 251mg/dL (70-99) 148mg/dL (70-99) O2 Saturation 94% (92-99) Arterial Blood pH 7.41 (7.35-7.45) Arterial Blood pCO2 at Patient Temp 32mmHg (35-46) Arterial Blood pO2 at Patient Temp 80mmHg (65-108) Arterial Blood HCO3 20mmol/L (21-28) Arterial Blood Base Excess -4mmol/L (-3-3) FiO2 40 Heparin Anti-Xa Act, Unfractionated 0.50IU/mL (0.30-0.70) Test 11/26/16 23:30 11/27/16 06:00 Heparin Anti-Xa Act, Unfractionated 0.36IU/mL (0.30-0.70) 0.71IU/mL (0.30-0.70) Creatine Kinase 774U/L (39-308) Laboratory Tests Test 11/26/16 08:25 11/26/16 08:30 11/26/16 11:00 11/26/16 12:01 Activated Partial Thromboplast Time 103SEC (24-38) Magnesium Level 2.5mg/dL (1.8-2.4) O2 Saturation 98% (92-99) Arterial Blood pH 7.32 (7.35-7.45) Arterial Blood pCO2 at Patient Temp 31mmHg (35-46) Arterial Blood pO2 at Patient Temp 130mmHg (65-108) Arterial Blood HCO3 16mmol/L (21-28) Arterial Blood Base Excess -9mmol/L (-3-3) FiO2 60 Glucose (Fingerstick) 242mg/dL (70-99) 251mg/dL (70-99) Heparin Anti-Xa Act, Unfractionated 0.27IU/mL (0.30-0.70) Test 11/26/16 12:40 11/26/16 17:00 11/26/16 17:09 11/26/16 23:30 O2 Saturation 94% (92-99) Arterial Blood pH 7.41 (7.35-7.45) Arterial Blood pCO2 at Patient Temp 32mmHg (35-46) Arterial Blood pO2 at Patient Temp 80mmHg (65-108) Arterial Blood HCO3 20mmol/L (21-28) Arterial Blood Base Excess -4mmol/L (-3-3) FiO2 40 Heparin Anti-Xa Act, Unfractionated 0.50IU/mL (0.30-0.70) 0.36IU/mL (0.30-0.70) Glucose (Fingerstick) 148mg/dL (70-99) Test 11/27/16 06:00 Heparin Anti-Xa Act, Unfractionated 0.71IU/mL (0.30-0.70) Creatine Kinase 774U/L (39-308) Microbiology 11/24/16 Blood Culture - Preliminary, Resulted NO GROWTH AFTER 2 DAYS 11/24/16 Stool Culture, Resulted Pending 11/24/16 Stool Culture Result 1 (ROSIE), Resulted Pending 11/24/16 Campylobacter Antigen Assay, Resulted Pending 11/24/16 Campylobactor Result 1, Resulted Pending 11/24/16 Shiga Toxin Test - Final, Resulted 11/25/16 Urine Culture - Preliminary, Resulted 11/25/16 Urine Culture Result 1 (ROSIE) - Preliminary, Resulted Medications Current Medications Sodium Chloride 1,000 ml @ 1,000 mls/hr Q1H IV Last administered on 11/24/16 06:50; Start 11/24/16 at 06:50; Stop 11/24/16 at 07:49; Status DC Epinephrine HCl/ Sodium Chloride (Adrenalin/Iv Sodium Chloride 0.9% 250ml) 254 ml @ 0 mls/hr CONT PRN IV SEE I/O RECORD Last administered on 11/26/16 03:05; Start 11/24/16 at 07:30 Insulin Aspart (Novolog) 0-7 UNITS TIDWMEALS SQ ; Start 11/24/16 at 08:00; Stop 11/24/16 at 15:36; Status DC Dextrose 12.5 gm 12.5 gm PRN Q15MIN PRN IV SEE COMMENTS; Start 11/24/16 at 07: 45; Stop 11/25/16 at 23:34; Status DC Sodium Chloride (Iv Sodium Chloride 0.9% 1000ml Bag) 1,000 ml @ 125 mls/hr 1X ONCE IV Last administered on 11/24/16 07:52; Start 11/24/16 at 08:00; Stop at 08:20; Status DC Vancomycin HCl (Vanco Per Pharmacy) 1 each PRN DAILY PRN MC SEE COMMENTS Last administered on 11/24/16 11:26; Start 11/24/16 at 08:15; Stop 11/24/16 at 13:06 ; Status DC Piperacillin Sod/ Tazobactam Sod 1 each 1 each PRN DAILY PRN MC SEE COMMENTS; Start 11/24/16 at 08:15; Stop 11/24/16 at 13:06; Status DC Sodium Bicarbonate 50 meq/Sodium Chloride 1,050 ml @ 125 mls/hr Q8H24M IV Last administered on 11/26/16 11:24; Start 11/24/16 at 08:30; Stop 11/26/16 at 12:41; Status DC Vancomycin HCl 2 gm/Sodium Chloride 500 ml @ 250 mls/hr ONCE ONCE IV Last administered on 11/24/16 10:15; Start 11/24/16 at 08:30; Stop 11/24/16 at 10:29 ; Status DC Piperacillin Sod/ Tazobactam Sod 4.5 gm/Sodium Chloride 100 ml @ 200 mls/hr Q6HRS IV Last administered on 11/24/16 10:10; Start 11/24/16 at 08:30; Stop at 11:15; Status DC Sodium Chloride (Iv Sodium Chloride 0.9% 1000ml Bag) 1,000 ml @ 1,000 mls/hr Q1H IV Last administered on 11/24/16 10:09; Start 11/24/16 at 08:39; Stop at 11:47; Status DC Fentanyl Citrate (Fentanyl 2ml Vial) 25 mcg PRN Q30MIN PRN IV SED; Start at 08:45 Lorazepam 1 mg 1 mg PRN Q30MIN PRN IV SEDATION Last administered on 11/25/16 12:26; Start 11/24/16 at 08:45 Fentanyl Citrate 30 ml @ 2.5 mls/hr CONT PRN PRN IV IVF Last administered on 07:40; Start 11/24/16 at 08:45; Stop 11/26/16 at 17:49; Status DC Propofol (Diprivan) 100 ml @ 0 mls/hr CONT PRN IV SEE I/O RECORD Last administered on 11/26/16 07:38; Start 11/24/16 at 08:45; Stop 11/26/16 at 17:49 ; Status DC Vecuronium [place] (Norcuron Bolus) 9 mg PRN Q30MIN PRN IV SHIVERING Last administered on 11/24/16 17:38; Start 11/24/16 at 08:45; Stop 11/26/16 at 17:49 ; Status DC Meperidine HCl (Demerol) 12.5 mg PRN Q30MIN PRN IV SHIVERING Last administered on 11/24/16 22:21; Start 11/24/16 at 08:45; Stop 11/24/16 at 22:21; Status DC Multi-Ingred Cream/Lotion/Oil/ Oint (Artificial Tears Eye Oint) 1 radha PRN Q6HRS PRN OU 0.5 INCH FOR DRY EYE; Start 11/24/16 at 08:45 Famotidine (Pepcid) 20 mg QHS IVP Last administered on 11/26/16 21:27; Start 11/24/16 at 21:00 Aspirin (Aspirin) [address] Last administered on 11/25/16 10:53; Start 11/24/16 at 09:00 Sodium Chloride (Normal Saline Flush) 3 ml QSHIFT PRN IV AFTER MEDS AND BLOOD DRAWS; Start 11/24/16 at 08:45 Acetaminophen (Tylenol) 650 mg Q6HRS NG ; Start 11/24/16 at 12:00; Stop at 11:59; Status DC Acetaminophen (Tylenol) 650 [address]N Q6HRS PRN CT MILD PAIN / TEMP; Start at 08:45; Stop 11/25/16 at 23:35; Status DC Acetaminophen (Tylenol) 650 mg PRN Q6HRS PRN NG MILD PAIN / TEMP; Start at 08:45 Info 1 ea 1 ea DAILY PRN MC PER PROTOCOL; Start 11/26/16 at 08:45 Insulin Human Regular 150 unit/ Sodium Chloride 151.5 ml @ 9.16 mls/hr CONT PRN IV SEE I/O RECORD Last administered on 11/24/16 10:13; Start 11/24/16 at 09 :30 Piperacillin Sod/ Tazobactam Sod 3.375 gm/Sodium Chloride 50 ml @ 100 mls/hr Q6HRS IV ; Start 11/24/16 at 18:00; Stop 11/24/16 at 18:00; Status DC Vancomycin HCl/ Sodium Chloride (Iv Sodium Chloride 0.9% 500ml Bag) 500 ml @ 250 mls/hr Q24H IV ; Start 11/25/16 at 10:00; Stop 11/25/16 at 10:00; Status DC Vancomycin HCl 1 each 1 each 1X ONCE MC ; Start 11/26/16 at 09:30; Stop at 09:30; Status DC Sodium Chloride (Iv Sodium Chloride 0.9% 1000ml Bag) 1,000 ml @ 1,000 mls/hr 1X ONCE IV Last administered on 11/24/16 11:00; Start 11/24/16 at 11:00; Stop 11/24/16 at 11:59; Status DC Insulin Detemir (Levemir) 12 units QHS SQ ; Start 11/24/16 at 21:00; Stop at 21:00; Status DC Insulin Aspart (Novolog) 10 units 1X ONCE SQ ; Start 11/24/16 at 15:30; Stop at 20:10; Status DC Insulin Aspart (Novolog) 0-7 UNITS Q4HRS SQ ; Start 11/24/16 at 16:00; Stop at 20:10; Status DC Heparin Sodium (Porcine) 8100 unit 8,100 unit 1X ONCE IV Last administered on 11/24/16 17:24; Start 11/24/16 at 17:00; Stop 11/24/16 at 17:01; Status DC Heparin Sodium/ Dextrose 500 ml @ 0 mls/hr CONT PRN IV SEE I/O RECORD Last administered on 11/27/16 04:21; Start 11/24/16 at 16:45 Heparin Sodium (Porcine) 3,000 unit PRN Q6HRS PRN IV FOR UFH LEVEL LESS THAN 0.2; Start 11/24/16 at 16:45 Heparin Sodium (Porcine) 1,500 unit PRN Q6HRS PRN IV FOR UFH LEVEL 0.2 - 0.29 Last administered on 11/26/16 12:08; Start 11/24/16 at 16:45 Info 1 each 1 each PRN DAILY PRN MC SEE COMMENTS Last administered on 12:58; Start 11/24/16 at 17:00 Piperacillin Sod/ Tazobactam Sod 3.375 gm/Sodium Chloride 50 ml @ 100 mls/hr Q6HRS IV Last administered on 11/27/16 05:57; Start 11/25/16 at 00:00 Vancomycin HCl/ Sodium Chloride (Iv Sodium Chloride 0.9% 250ml) 250 ml @ 250 mls/hr 1X ONCE IV ; Start 11/24/16 at 21:30; Stop 11/24/16 at 22:29; Status UNV Vancomycin HCl 1 each 1 each PRN DAILY PRN MC SEE COMMENTS Last administered on 11/25/16 03:30; Start 11/25/16 at 01:00; Stop 11/25/16 at 08:57; Status DC Vancomycin HCl/ Sodium Chloride (Iv Sodium Chloride 0.9% 500ml Bag) 500 ml @ 250 mls/hr Q24H IV ; Start 11/25/16 at 10:00; Stop 11/25/16 at 10:00; Status DC Vancomycin HCl 1 each 1X ONCE MC ; Start 11/26/16 at 09:30; Stop 11/26/16 at 09 :30; Status DC Enoxaparin Sodium (Lovenox Per Pharmacy Prophylaxis Dosing) 1 each PRN DAILY PRN MC SEE COMMENTS; Start 11/25/16 at 08:45; Status UNV Chlorhexidine Gluconate 15 ml 15 ml BID MM Last administered on 11/26/16 08:37 ; Start 11/25/16 at 21:00; Stop 11/26/16 at 17:49; Status DC Magnesium Sulfate/ Dextrose 50 ml @ 25 mls/hr PRN DAILY PRN IV for Mag < 1.7 on am labs Last administered on 11/26/16 05:29; Start 11/25/16 at 09:45 Magnesium Sulfate/ Dextrose 50 ml @ 25 mls/hr PRN DAILY PRN IV for Mag < 1.7 on am labs; Start 11/25/16 at 09:45; Status UNV Sodium Chloride 500 ml @ 0 mls/hr QID PRN IV UO< 30cc/hr over previous 6hrs Last administered on 11/25/16 10:54; Start 11/25/16 at 09:45 Magnesium Sulfate/ Dextrose (Magnesium Sulfate PREMIX 2GM) 50 ml @ 25 mls/hr 1X ONCE IV Last administered on 11/25/16 13:28; Start 11/25/16 at 12:30; Stop 11/25/16 at 14:29; Status DC Lidocaine/Sodium Bicarbonate 20 ml 20 ml STK-MED ONCE IJ ; Start 11/25/16 at 12: 35; Stop 11/25/16 at 12:36; Status DC Heparin Sodium/ Sodium Chloride 500 ml @ As Directed STK-MED ONCE .ROUTE ; Start 11/25/16 at 12:35; Stop 11/25/16 at 12:36; Status DC Lidocaine/Sodium Bicarbonate (Buffered Lidocaine 1%) 3 ml 1X ONCE IJ Last administered on 11/25/16 13:15; Start 11/25/16 at 13:15; Stop 11/25/16 at 13:16 ; Status DC Heparin Sodium/ Sodium Chloride 60 unit 1X ONCE IV Last administered on 13:16; Start 11/25/16 at 13:15; Stop 11/25/16 at 13:16; Status DC Amiodarone HCl (Cordarone) 450 mg STK-MED ONCE .ROUTE ; Start 11/25/16 at 12:00 ; Stop 11/25/16 at 14:56; Status DC Epinephrine HCl (Adrenalin) 30 mg STK-MED ONCE .ROUTE ; Start 11/25/16 at 12:00 ; Stop 11/25/16 at 14:56; Status DC Atropine Sulfate 1.5 mg STK-MED ONCE .ROUTE ; Start 11/25/16 at 12:00; Stop at 14:56; Status DC Epinephrine HCl 4 mg STK-MED ONCE .ROUTE ; Start 11/25/16 at 12:00; Stop at 14:56; Status DC Sodium Bicarbonate 150 meq 150 meq STK-MED ONCE .ROUTE ; Start 11/25/16 at 12:00 ; Stop 11/25/16 at 14:56; Status DC Midazolam HCl (Versed 100mg/ 100ml Premix) 100 ml @ 0 mls/hr CONT PRN IV SEE I/ O RECORD; Start 11/25/16 at 23:30; Stop 11/26/16 at 17:49; Status DC Insulin Aspart (Novolog) 0-7 UNITS TIDWMEALS SQ Last administered on 11/26/16 12:02; Start 11/26/16 at 08:00 Dextrose 12.5 gm PRN Q15MIN PRN IV SEE COMMENTS; Start 11/25/16 at 23:30 Acetaminophen 650 mg 650 mg PRN Q6HRS PRN CT MILD PAIN / TEMP Last administered on 11/26/16 08:37; Start 11/25/16 at 23:30 Potassium Chloride 50 ml @ 50 mls/hr Q1H IV Last administered on 11/26/16 11: 23; Start 11/26/16 at 10:30; Stop 11/26/16 at 12:29; Status DC Sodium Bicarbonate/ Sterile Water 1,100 ml @ 100 mls/hr Q11H IV Last administered on 11/27/16 00:56; Start 11/26/16 at 13:00 Info 1 each 1 each PRN DAILY PRN MC SEE COMMENTS Last administered on 14:25; Start 11/26/16 at 12:45 Calcium Chloride/ Sodium Chloride (Iv Sodium Chloride 0.9% 100ml) 120 ml @ 240 mls/hr 1X ONCE IV Last administered on 11/26/16 13:22; Start 11/26/16 at 13: 15; Stop 11/26/16 at 13:44; Status DC Ondansetron HCl 4 mg 4 mg PRN Q6HRS PRN IV NAUSEA/VOMITING Last administered on 11/26/16 13:56; Start 11/26/16 at 13:45 Sodium Chloride/ Potassium Chloride/ Magnesium Sulfate/ Calcium Gluconate/ Multivitamins/ Chromium/Copper/ Manganese/Seleni/ Zn/Total Parenteral Nutrition/ Amino Acids/Dextrose/ Fat Emulsion Intravenous (Sodium Chloride/ Infuvite Adult / Multitrace-5 Conc/ Tpn - Tpn Fluid/ Trophami... 1,594.468 ml @ 66.436 m... TPN CONT IV Last administered on 11/26/16 21:27; Start 11/26/16 at 22:00; Stop 11/27/16 at 21:59 Albuterol Sulfate (Ventolin Neb Soln) 2.5 mg 1X ONCE NEB Last administered on 11/27/16 07:21; Start 11/27/16 at 06:45; Stop 11/27/16 at 06:46; Status DC Vitals/I & O Vital Sign - Last 24 Hours 11/26/16 11/26/16 11/26/16 11/26/16 09:00 09:03 10:00 11:00 Pulse 97 99 98 Resp 11 18 12 B/P 100/53 94/38 94/41 Pulse Ox 97 97 99 99 O2 Delivery Ventilator Ventilator Ventilator Ventilator 11/26/16 11/26/16 11/26/16 11/26/16 12:00 12:00 12:00 12:11 Temp 98.9 98.9 Pulse 97 97 Resp 15 B/P 136/49 136/49 Pulse Ox 97 98 O2 Delivery Ventilator Mechanical Ventilator T-Tube O2 Flow Rate 10.0 11/26/16 11/26/16 11/26/16 11/26/16 13:00 13:05 14:00 15:00 Pulse 95 94 89 Resp 14 B/P 134/54 135/35 124/46 Pulse Ox 94 94 95 95 O2 Delivery Nasal Cannula Nasal Cannula Nasal Cannula Nasal Cannula O2 Flow Rate 5.0 5.0 5.0 5.0 11/26/16 11/26/16 11/26/16 11/26/16 16:00 16:00 16:00 17:00 Temp 98.8 98.8 Pulse 94 94 90 Resp 16 15 B/P 146/40 146/40 128/42 Pulse Ox 93 95 O2 Delivery Nasal Cannula Nasal Cannula Nasal Cannula O2 Flow Rate 5.0 5.0 5.0 11/26/16 11/26/16 11/26/16 11/26/16 18:00 19:00 20:00 20:00 Temp 100.1 100.1 Pulse 92 89 99 Resp 15 14 B/P 138/40 124/36 156/46 Pulse Ox 93 93 O2 Delivery Nasal Cannula Nasal Cannula Nasal Cannula O2 Flow Rate 5.0 5.0 5.0 11/26/16 11/26/16 11/26/16 11/26/16 20:15 21:00 22:00 23:00 Pulse 99 103 96 96 Resp 8 18 16 16 B/P 156/46 169/51 150/44 133/40 Pulse Ox 94 92 96 96 O2 Delivery Nasal Cannula Nasal Cannula Nasal Cannula Nasal Cannula O2 Flow Rate 5.0 5.0 5.0 5.0 11/27/16 11/27/16 11/27/16 11/27/16 00:00 00:00 00:00 01:00 Temp 98.6 98.6 Pulse 95 96 96 Resp 15 21 B/P 142/47 166/1 161/41 Pulse Ox 96 96 O2 Delivery Nasal Cannula Nasal Cannula Nasal Cannula O2 Flow Rate 5.0 5.0 5.0 11/27/16 11/27/16 11/27/16 11/27/16 02:00 03:00 04:00 04:00 Temp 100.3 100.3 Pulse 93 98 104 104 Resp 14 24 8 B/P 136/51 128/48 133/47 133/47 Pulse Ox 97 96 93 O2 Delivery Nasal Cannula Nasal Cannula Nasal Cannula O2 Flow Rate 5.0 5.0 5.0 11/27/16 11/27/16 11/27/16 11/27/16 04:00 05:00 06:00 07:22 Pulse 117 98 Resp 14 15 B/P 152/57 149/49 Pulse Ox 91 90 94 O2 Delivery Nasal Cannula Nasal Cannula Nasal Cannula Nasal Cannula O2 Flow Rate 5.0 5.0 6.0 6.0 Intake and Output 11/26/16 11/26/16 11/27/16 15:00 23:00 07:00 Intake Total 1367.4 ml 2867 ml Output Total 700 ml 435 ml 669 ml Balance 667.4 ml -435 ml 2198 ml EVELYNE ANTONIO MD Nov 27, 2016 08:26
[2016-11-27] MEDS ORDERED: MAGNESIUM SULFATE 2GM 50 ML IV PRN (08:45)
--- NOTE | 2016-11-27 08:48 | PDOC ---
SUBJECTIVE ROS H[place] Now extubated and somewhat conversational but drowsy CVS: no Orthopnea, no CP RESP: no SOB, no ZARATE (not ambulated yet) GI: n Nausea, no Vomiting : no Dysuria, no Urgency OBJECTIVE Vital Signs Vital Signs Date Time Temp Pulse Resp B/P Pulse Ox O2 Delivery O2 Flow Rate FiO2 11/27/16 07:22 94 Nasal Cannula 6.0 11/27/16 06:00 98 15 149/49 11/27/16 04:00 100.3 100.3 I & 0 Intake and Output 11/27/16 07:00 Intake Total 4234.4 ml Output Total 1804 ml Balance 2430.4 ml Intake IV Total 4234.4 ml Output Urine Total 1804 ml PHYSICAL EXAM Physical Exam General Appearance: Arousable easily but drowsy In no visible Distress Eyes: VIsion Unchanged Conjunctiva Normal EN: No EN Drainage Mucous Memb. dryish (mouth Breather) Neck: no JVD min JVP Supple no Thyromegaly CVS: S1 S2 no audible Murmur No Gallop No Rub +2 Edema in upper ext Resp: no Rales no Rhonchi no Acc. Muscle use GI: BS +ve NO Bruit Non Tender Non Distended : no CVA tenderness; no Suprapubic Tenderness Assessment & Plan H[place]IL[place]/ vs CKD - cannot R/o ATN from Code Blue. Current FLuid and E-lyte status does not necessitate emergent need for Dialysis. Will re-evaluate for Dialysis in am, recheck CK is much lower. await other labs. Microscopic Hematuria - suspect ? due to Heparin gtt. Low K - on replacement per ICU [place] Protocol Nutrition - now on TPN ^CK - much improved IVF Nutrition - TPN pending swallow eval Low Mag - better on replacement protocol Cmyopathy - ? LHC as planned by cardiology Have Discussed Plan of Care and prognosis etc. at length with family. 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 was discussed with pts Family COMMENT/RELEVANT DATA Meds Current Medications Medications (Trade) Dose Ordered Sig/Kika Start Time Stop Time Status Last Admin Dose Admin Acetaminophen (Tylenol) 650 mg PRN Q6HRS PRN 11/25/16 08:45 Acetaminophen 650 mg 650 mg PRN Q6HRS PRN 11/25/16 23:30 11/26/16 08:37 650 MG Albuterol Sulfate (Ventolin Neb Soln) 2.5 mg 1X ONCE 11/27/16 06:45 11/27/16 06:46 DC 11/27/16 07:21 2.5 MG Amiodarone HCl (Cordarone) 450 mg STK-MED ONCE 11/25/16 12:00 11/25/16 14:56 DC Aspirin (Aspirin) 300 mg DAILY 11/24/16 09:00 11/25/16 10:53 300 MG Atropine Sulfate 1.5 mg STK-MED ONCE 11/25/16 12:00 11/25/16 14:56 DC Calcium Chloride/ Sodium Chloride (Iv Sodium Chloride 0.9% 100ml) 120 ml @ 240 mls/hr 1X ONCE 11/26/16 13:15 11/26/16 13:44 DC 11/26/16 13:22 240 MLS/HR Chlorhexidine Gluconate 15 ml 15 ml BID 11/25/16 21:00 11/26/16 17:49 DC 11/26/16 08:37 15 ML Dextrose 12.5 gm PRN Q15MIN PRN 11/25/16 23:30 Enoxaparin Sodium (Lovenox Per Pharmacy Prophylaxis Dosing) 1 each PRN DAILY PRN 11/25/16 08:45 UNV Epinephrine HCl 4 mg STK-MED ONCE 11/25/16 12:00 11/25/16 14:56 DC Epinephrine HCl (Adrenalin) 30 mg STK-MED ONCE 11/25/16 12:00 11/25/16 14:56 DC Epinephrine HCl/ Sodium Chloride (Adrenalin/Iv Sodium Chloride 0.9% 250ml) 254 ml @ 0 mls/hr CONT PRN 11/24/16 07:30 11/27/16 08:25 DC 11/26/16 03:05 11.43 MLS/HR Famotidine (Pepcid) 20 mg QHS 11/24/16 21:00 11/26/16 21:27 20 MG Fentanyl Citrate 30 ml @ 2.5 mls/hr CONT PRN PRN 11/24/16 08:45 11/26/16 17:49 DC 11/26/16 07:40 2.5 MLS/HR Fentanyl Citrate (Fentanyl 2ml Vial) 25 mcg PRN Q30MIN PRN 11/24/16 08:45 Heparin Sodium (Porcine) 3,000 unit PRN Q6HRS PRN 11/24/16 16:45 Heparin Sodium (Porcine) 1500 unit 1,500 unit PRN Q6HRS PRN 11/24/16 16:45 11/26/16 12:08 1,500 UNIT Heparin Sodium (Porcine) 8100 unit 8,100 unit 1X ONCE 11/24/16 17:00 11/24/16 17:01 DC 11/24/16 17:24 8,100 UNIT Heparin Sodium/ Dextrose 500 ml @ 0 mls/hr CONT PRN 11/24/16 16:45 11/27/16 04:21 49.1 MLS/HR Heparin Sodium/ Sodium Chloride 60 unit 1X ONCE 11/25/16 13:15 11/25/16 13:16 DC 11/25/16 13:16 60 UNIT Info 1 ea 1 ea DAILY PRN 11/26/16 08:45 Info 1 each 1 each PRN DAILY PRN 11/26/16 12:45 11/26/16 14:25 1 EACH Insulin Aspart (Novolog) 0-7 UNITS TIDWMEALS 11/26/16 08:00 11/26/16 12:02 3 UNITS Insulin Detemir (Levemir) 12 units QHS 11/24/16 21:00 11/24/16 21:00 DC Insulin Human Regular 150 unit/ Sodium Chloride 151.5 ml @ 9.16 mls/hr CONT PRN 11/24/16 09:30 11/27/16 08:25 DC 11/24/16 10:13 3.4 MLS/HR Lidocaine/Sodium Bicarbonate (Buffered Lidocaine 1%) 3 ml 1X ONCE 11/25/16 13:15 11/25/16 13:16 DC 11/25/16 13:15 3 ML Lorazepam 1 mg 1 mg PRN Q30MIN PRN 11/24/16 08:45 11/25/16 12:26 1 MG Magnesium Sulfate/ Dextrose (Magnesium Sulfate PREMIX 2GM) 50 ml @ 25 mls/hr 1X ONCE 11/25/16 12:30 11/25/16 14:29 DC 11/25/16 13:28 25 MLS/HR Meperidine HCl (Demerol) 12.5 mg PRN Q30MIN PRN 11/24/16 08:45 11/24/16 22:21 DC 11/24/16 22:21 12.5 MG Midazolam HCl (Versed 100mg/ 100ml Premix) 100 ml @ 0 mls/hr CONT PRN 11/25/16 23:30 11/26/16 17:49 DC Multi-Ingred Cream/Lotion/Oil/ Oint (Artificial Tears Eye Oint) 1 radha PRN Q6HRS PRN 11/24/16 08:45 Ondansetron HCl 4 mg 4 mg PRN Q6HRS PRN 11/26/16 13:45 11/26/16 13:56 4 MG Piperacillin Sod/ Tazobactam Sod 3.375 gm/Sodium Chloride 50 ml @ 100 mls/hr Q6HRS 11/25/16 00:00 11/27/16 05:57 100 MLS/HR Piperacillin Sod/ Tazobactam Sod 1 each 1 each PRN DAILY PRN 11/24/16 08:15 11/24/16 13:06 DC Piperacillin Sod/ Tazobactam Sod/ Sodium Chloride (Zosyn/Iv Sodium Chloride 0.9% 100ml) 100 ml @ 200 mls/hr Q6HRS 11/24/16 08:30 11/24/16 11:15 DC 11/24/16 10:10 200 MLS/HR Potassium Chloride 50 ml @ 50 mls/hr Q1H 11/26/16 10:30 11/26/16 12:29 DC 11/26/16 11:23 50 MLS/HR Propofol (Diprivan) 100 ml @ 0 mls/hr CONT PRN 11/24/16 08:45 11/26/16 17:49 DC 11/26/16 07:38 5.5 MLS/HR Sodium Bicarbonate 150 meq 150 meq STK-MED ONCE 11/25/16 12:00 11/25/16 14:56 DC Sodium Bicarbonate 50 meq/Sodium Chloride 1,050 ml @ 125 mls/hr Q8H24M 11/24/16 08:30 11/26/16 12:41 DC 11/26/16 11:24 125 MLS/HR Sodium Bicarbonate/ Sterile Water 1,100 ml @ 100 mls/hr Q11H 11/26/16 13:00 11/27/16 00:56 100 MLS/HR Sodium Chloride 500 ml @ 0 mls/hr QID PRN 11/25/16 09:45 11/25/16 10:54 999 MLS/HR Sodium Chloride (Iv Sodium Chloride 0.9% 1000ml Bag) 1,000 ml @ 1,000 mls/hr 1X ONCE 11/24/16 11:00 11/24/16 11:59 DC 11/24/16 11:00 1,000 MLS/HR Sodium Chloride (Normal Saline Flush) 3 ml QSHIFT PRN 11/24/16 08:45 Sodium Chloride/ Potassium Chloride/ Magnesium Sulfate/ Calcium Gluconate/ Multivitamins/ Chromium/Copper/ Manganese/Seleni/ Zn/Total Parenteral Nutrition/Amino Acids/Dextrose/ Fat Emulsion Intravenous (Sodium Chloride/ Infuvite Adult/ Multitrace-5 Conc/ Tpn - Tpn Fluid/ Trophami... 1,594.468 ml @ 66.436 m... TPN CONT 11/26/16 22:00 11/27/16 21:59 11/26/16 21:27 66.436 MLS/HR Vancomycin HCl 1 each 1X ONCE 11/26/16 09:30 11/26/16 09:30 DC Vancomycin HCl (Vanco Per Pharmacy) 1 each PRN DAILY PRN 11/24/16 08:15 11/24/16 13:06 DC 11/24/16 11:26 1 EACH Vancomycin HCl 1.5 gm/Sodium Chloride 500 ml @ 250 mls/hr Q24H 11/25/16 10:00 11/25/16 10:00 DC Vancomycin HCl 1 each 1 each PRN DAILY PRN 11/25/16 01:00 11/25/16 08:57 DC 11/25/16 03:30 1 EACH Vancomycin HCl 2 gm/Sodium Chloride 500 ml @ 250 mls/hr ONCE ONCE 11/24/16 08:30 11/24/16 10:29 DC 11/24/16 10:15 250 MLS/HR Vancomycin HCl/ Sodium Chloride (Iv Sodium Chloride 0.9% 250ml) 250 ml @ 250 mls/hr 1X ONCE 11/24/16 21:30 11/24/16 22:29 UNV Vancomycin HCl/ Sodium Chloride (Iv Sodium Chloride 0.9% 500ml Bag) 500 ml @ 250 mls/hr Q24H 11/25/16 10:00 11/25/16 10:00 DC Vecuronium [place] (Norcuron Bolus) 9 mg PRN Q30MIN PRN 11/24/16 08:45 11/26/16 17:49 DC 11/24/16 17:38 9 MG Lab Laboratory Tests Test 11/26/16 11:00 11/26/16 12:01 11/26/16 12:40 11/26/16 17:00 Heparin Anti-Xa Act, Unfractionated 0.27IU/mL (0.30-0.70) 0.50IU/mL (0.30-0.70) Glucose (Fingerstick) 251mg/dL (70-99) O2 Saturation 94% (92-99) Arterial Blood pH 7.41 (7.35-7.45) Arterial Blood pCO2 at Patient Temp 32mmHg (35-46) Arterial Blood pO2 at Patient Temp 80mmHg (65-108) Arterial Blood HCO3 20mmol/L (21-28) Arterial Blood Base Excess -4mmol/L (-3-3) FiO2 40 Test 11/26/16 17:09 11/26/16 23:30 11/27/16 06:00 Glucose (Fingerstick) 148mg/dL (70-99) Heparin Anti-Xa Act, Unfractionated 0.36IU/mL (0.30-0.70) 0.71IU/mL (0.30-0.70) Creatine Kinase 774U/L (39-308) ASHLEY DIAMOND MD Nov 27, 2016 08:48
[2016-11-27] MEDS: ANTI-COAG MONITOR BY PHARMACY. MC PRN (08:50)
[2016-11-27 08:57] LABS: CALCIUM 7.5 mg/dL (8.5-10.1); CREATININE 2.6 mg/dL (0.7-1.3); GFR 24.5; PHOSPHORUS 3.9 mg/dL (2.6-4.7); POTASSIUM 3.9 mmol/L (3.5-5.1)
[2016-11-27 08:58] LABS: MAGNESIUM 2.3 mg/dL (1.8-2.4)
[2016-11-27] MEDS: ASPIRIN 300 MG SUPP.RECT PR SCH (09:00)
[2016-11-27] MEDS: TPN PER PHARMACY MC PRN (10:39)
[2016-11-27] MEDS ORDERED: NITROGLYCERIN SUBLINGUAL 0.4 MG BOTTLE OF 25. SL ONE (11:16)
--- NOTE | 2016-11-27 12:07 | PDOC ---
SURGICAL PROGRESS NOTE Subjective awake, denies abdominal pain no n/v Vital Signs Vital Signs Date Time Temp Pulse Resp B/P Pulse Ox O2 Delivery O2 Flow Rate FiO2 11/27/16 11:26 106 201/50 11/27/16 08:00 Nasal Cannula 6.0 11/27/16 07:22 94 11/27/16 07:00 98.8 18 98.8 I&O Intake and Output 11/27/16 07:00 Intake Total 4234.4 ml Output Total 1804 ml Balance 2430.4 ml Intake IV Total 4234.4 ml Output Urine Total 1804 ml General: Alert, Cooperative Heart: No murmurs Abdomen: Soft, No tenderness, No masses Labs Laboratory Tests Test 11/25/16 12:15 11/25/16 12:23 11/25/16 12:55 11/25/16 13:46 Activated Partial Thromboplast Time > 150SEC (24-38) Sodium Level 143mmol/L (136-145) Potassium Level 4.4mmol/L (3.5-5.1) Chloride Level 107mmol/L (98-107) Carbon Dioxide Level 24mmol/L (21-32) Anion Gap 12 (6-14) Blood Urea Nitrogen 33mg/dL (8-26) Creatinine 1.8mg/dL (0.7-1.3) Estimated GFR (Cockcroft-Gault) 37.4 Glucose Level 118mg/dL (70-99) Calcium Level 7.0mg/dL (8.5-10.1) Phosphorus Level 4.5mg/dL (2.6-4.7) Magnesium Level 1.2mg/dL (1.8-2.4) Troponin I Quantitative 2.233ng/mL (0.000-0.055) Glucose (Fingerstick) 107mg/dL (70-99) 98mg/dL (70-99) Urine Collection Type Unknown Urine Color Red Urine Clarity Turbid Urine pH 5.0 Urine Specific [place] 1.020 Urine Protein 30mg/dL (NEG-TRACE) Urine Glucose (UA) Negativemg/dL (NEG) Urine Ketones (Stick) Tracemg/dL (NEG) Urine Blood Large (NEG) Urine Nitrite Negative (NEG) Urine Bilirubin Negative (NEG) Urine Urobilinogen Dipstick 0.2mg/dL (0.2 mg/dL) Urine Leukocyte Esterase Moderate (NEG) Urine RBC Tntc/HPF (0-2) Urine WBC 5-10/HPF (0-4) Urine Bacteria Few/HPF (0-FEW) Urine Random Creatinine 96.1mg/dL (Not Estab.) Urine Random Sodium 28mmol/L (Not Estab.) Test 11/25/16 14:00 11/25/16 14:50 11/25/16 15:45 11/25/16 15:48 O2 Saturation 96% (92-99) Arterial Blood pH 7.34 (7.35-7.45) Arterial Blood pCO2 at Patient Temp 39mmHg (35-46) Arterial Blood pO2 at Patient Temp 93mmHg (65-108) Arterial Blood HCO3 20mmol/L (21-28) Arterial Blood Base Excess -5mmol/L (-3-3) FiO2 60 Glucose (Fingerstick) 95mg/dL (70-99) 106mg/dL (70-99) Lactic Acid Level 1.5mmol/L (0.4-2.0) Test 11/25/16 15:55 11/25/16 16:58 11/25/16 18:29 11/25/16 18:45 White Blood Count 11.6x10^3/uL (4.0-11.0) Red Blood Count 3.45x10^6/uL (4.30-5.70) Hemoglobin 10.3g/dL (13.0-17.5) Hematocrit 30.6% (39.0-53.0) Mean Corpuscular Volume 89fL (79-100) Mean Corpuscular Hemoglobin 30pg (25-35) Mean Corpuscular Hemoglobin Concent 34g/dL (31-37) Red Cell Distribution Width 14.2% (11.5-14.5) Platelet Count 78x10^3/uL (140-400) Prothrombin Time 20.5SEC (11.7-14.0) Prothromb Time International Ratio 1.9 (0.8-1.1) Activated Partial Thromboplast Time > 150SEC (24-38) Heparin Anti-Xa Act, Unfractionated > 1.10IU/mL (0.30-0.70) Sodium Level 143mmol/L (136-145) Potassium Level 3.9mmol/L (3.5-5.1) 3.6mmol/L (3.5-5.1) Chloride Level 106mmol/L (98-107) Carbon Dioxide Level 23mmol/L (21-32) Anion Gap 14 (6-14) Blood Urea Nitrogen 33mg/dL (8-26) Creatinine 1.8mg/dL (0.7-1.3) Estimated GFR (Cockcroft-Gault) 37.4 Glucose Level 116mg/dL (70-99) Calcium Level 7.1mg/dL (8.5-10.1) Phosphorus Level 4.4mg/dL (2.6-4.7) Magnesium Level 1.8mg/dL (1.8-2.4) Troponin I Quantitative 1.764ng/mL (0.000-0.055) Glucose (Fingerstick) 105mg/dL (70-99) 110mg/dL (70-99) Test 11/25/16 19:38 11/25/16 19:55 11/25/16 20:55 11/25/16 21:59 Glucose (Fingerstick) 92mg/dL (70-99) 90mg/dL (70-99) 109mg/dL (70-99) Activated Partial Thromboplast Time > 150SEC (24-38) Sodium Level 142mmol/L (136-145) Potassium Level 3.9mmol/L (3.5-5.1) Chloride Level 105mmol/L (98-107) Carbon Dioxide Level 23mmol/L (21-32) Anion Gap 14 (6-14) Blood Urea Nitrogen 34mg/dL (8-26) Creatinine 1.8mg/dL (0.7-1.3) Estimated GFR (Cockcroft-Gault) 37.4 Glucose Level 118mg/dL (70-99) Calcium Level 7.1mg/dL (8.5-10.1) Phosphorus Level 4.7mg/dL (2.6-4.7) Magnesium Level 1.8mg/dL (1.8-2.4) Troponin I Quantitative 1.690ng/mL (0.000-0.055) Test 11/25/16 22:00 11/25/16 22:05 11/26/16 00:00 11/26/16 04:55 O2 Saturation 96% (92-99) Arterial Blood pH 7.40 (7.35-7.45) Arterial Blood pH (Temp corrected) 7.42 Arterial Blood pCO2 at Patient Temp 31mmHg (35-46) Arterial Blood pCO2 (Temp correct) 30mmHg Arterial Blood pO2 at Patient Temp 94mmHg (65-108) Arterial Blood pO2 (Temp corrected) 89mmHg Arterial Blood HCO3 19mmol/L (21-28) Arterial Blood Base Excess -5mmol/L (-3-3) White Blood Count 10.8x10^3/uL (4.0-11.0) 13.7x10^3/uL (4.0-11.0) Red Blood Count 3.13x10^6/uL (4.30-5.70) 2.69x10^6/uL (4.30-5.70) Hemoglobin 9.5g/dL (13.0-17.5) 8.1g/dL (13.0-17.5) Hematocrit 27.9% (39.0-53.0) 24.3% (39.0-53.0) Mean Corpuscular Volume 89fL (79-100) 90fL (79-100) Mean Corpuscular Hemoglobin 30pg (25-35) 30pg (25-35) Mean Corpuscular Hemoglobin Concent 34g/dL (31-37) 34g/dL (31-37) Red Cell Distribution Width 14.2% (11.5-14.5) 13.9% (11.5-14.5) Platelet Count 81x10^3/uL (140-400) 107x10^3/uL (140-400) Prothrombin Time 18.2SEC (11.7-14.0) 17.0SEC (11.7-14.0) Prothromb Time International Ratio 1.6 (0.8-1.1) 1.5 (0.8-1.1) Heparin Anti-Xa Act, Unfractionated > 1.10IU/mL (0.30-0.70) 0.24IU/mL (0.30-0.70) Lactic Acid Level 1.2mmol/L (0.4-2.0) Sodium Level 141mmol/L (136-145) 144mmol/L (136-145) Potassium Level 3.8mmol/L (3.5-5.1) 3.5mmol/L (3.5-5.1) Chloride Level 104mmol/L (98-107) 105mmol/L (98-107) Carbon Dioxide Level 23mmol/L (21-32) 20mmol/L (21-32) Anion Gap 14 (6-14) 19 (6-14) Blood Urea Nitrogen 36mg/dL (8-26) 36mg/dL (8-26) Creatinine 2.0mg/dL (0.7-1.3) 2.2mg/dL (0.7-1.3) Estimated GFR (Cockcroft-Gault) 33.1 29.7 Glucose Level 120mg/dL (70-99) 194mg/dL (70-99) Calcium Level 6.9mg/dL (8.5-10.1) 6.6mg/dL (8.5-10.1) Phosphorus Level 5.2mg/dL (2.6-4.7) 6.6mg/dL (2.6-4.7) Magnesium Level 1.7mg/dL (1.8-2.4) 1.6mg/dL (1.8-2.4) Troponin I Quantitative 1.387ng/mL (0.000-0.055) 1.168ng/mL (0.000-0.055) Activated Partial Thromboplast Time 82SEC (24-38) Total Bilirubin 0.6mg/dL (0.2-1.0) Direct Bilirubin 0.2mg/dL (0.0-0.2) Aspartate Amino Transf (AST/SGOT) 117U/L (15-37) Alanine Aminotransferase (ALT/SGPT) 278U/L (16-63) Alkaline Phosphatase 58U/L (46-116) Total Protein 4.7g/dL (6.4-8.2) Albumin 2.1g/dL (3.4-5.0) Lipase 57U/L (73-393) Test 11/26/16 05:26 11/26/16 08:25 11/26/16 08:30 11/26/16 11:00 Glucose (Fingerstick) 158mg/dL (70-99) 242mg/dL (70-99) Activated Partial Thromboplast Time 103SEC (24-38) Magnesium Level 2.5mg/dL (1.8-2.4) O2 Saturation 98% (92-99) Arterial Blood pH 7.32 (7.35-7.45) Arterial Blood pCO2 at Patient Temp 31mmHg (35-46) Arterial Blood pO2 at Patient Temp 130mmHg (65-108) Arterial Blood HCO3 16mmol/L (21-28) Arterial Blood Base Excess -9mmol/L (-3-3) FiO2 60 Heparin Anti-Xa Act, Unfractionated 0.27IU/mL (0.30-0.70) Test 11/26/16 12:01 11/26/16 12:40 11/26/16 17:00 11/26/16 17:09 Glucose (Fingerstick) 251mg/dL (70-99) 148mg/dL (70-99) O2 Saturation 94% (92-99) Arterial Blood pH 7.41 (7.35-7.45) Arterial Blood pCO2 at Patient Temp 32mmHg (35-46) Arterial Blood pO2 at Patient Temp 80mmHg (65-108) Arterial Blood HCO3 20mmol/L (21-28) Arterial Blood Base Excess -4mmol/L (-3-3) FiO2 40 Heparin Anti-Xa Act, Unfractionated 0.50IU/mL (0.30-0.70) Test 11/26/16 23:30 11/27/16 06:00 Heparin Anti-Xa Act, Unfractionated 0.36IU/mL (0.30-0.70) 0.71IU/mL (0.30-0.70) Sodium Level 141mmol/L (136-145) Potassium Level 3.9mmol/L (3.5-5.1) Chloride Level 105mmol/L (98-107) Carbon Dioxide Level 27mmol/L (21-32) Anion Gap 9 (6-14) Blood Urea Nitrogen 42mg/dL (8-26) Creatinine 2.6mg/dL (0.7-1.3) Estimated GFR (Cockcroft-Gault) 24.5 Glucose Level 224mg/dL (70-99) Calcium Level 7.5mg/dL (8.5-10.1) Phosphorus Level 3.9mg/dL (2.6-4.7) Magnesium Level 2.3mg/dL (1.8-2.4) Creatine Kinase 774U/L (39-308) Laboratory Tests Test 11/26/16 12:40 11/26/16 17:00 11/26/16 17:09 11/26/16 23:30 O2 Saturation 94% (92-99) Arterial Blood pH 7.41 (7.35-7.45) Arterial Blood pCO2 at Patient Temp 32mmHg (35-46) Arterial Blood pO2 at Patient Temp 80mmHg (65-108) Arterial Blood HCO3 20mmol/L (21-28) Arterial Blood Base Excess -4mmol/L (-3-3) FiO2 40 Heparin Anti-Xa Act, Unfractionated 0.50IU/mL (0.30-0.70) 0.36IU/mL (0.30-0.70) Glucose (Fingerstick) 148mg/dL (70-99) Test 11/27/16 06:00 Heparin Anti-Xa Act, Unfractionated 0.71IU/mL (0.30-0.70) Sodium Level 141mmol/L (136-145) Potassium Level 3.9mmol/L (3.5-5.1) Chloride Level 105mmol/L (98-107) Carbon Dioxide Level 27mmol/L (21-32) Anion Gap 9 (6-14) Blood Urea Nitrogen 42mg/dL (8-26) Creatinine 2.6mg/dL (0.7-1.3) Estimated GFR (Cockcroft-Gault) 24.5 Glucose Level 224mg/dL (70-99) Calcium Level 7.5mg/dL (8.5-10.1) Phosphorus Level 3.9mg/dL (2.6-4.7) Magnesium Level 2.3mg/dL (1.8-2.4) Creatine Kinase 774U/L (39-308) Problem List Problems Medical Problems: (1) Cardiac arrest Status: Acute Assessment/Plan concern for ischemic bowel abd exam benign no surgical plans Problems: WILL STARK APRN Nov 27, 2016 12:06
--- NOTE | 2016-11-27 12:24 | PDOC ---
Subjective: Subjective: RLQ pain. Objective: Objective: Per RN - no diarrhea, rectal tube removed, no GI concerns. D/w cardio - heart cath on hold w/ increased Cr. Vital Signs: Vital Signs Date Time Temp Pulse Resp B/P Pulse Ox O2 Delivery O2 Flow Rate FiO2 11/27/16 11:26 106 201/50 11/27/16 08:00 Nasal Cannula 6.0 11/27/16 07:22 94 11/27/16 07:00 98.8 18 98.8 Labs: Laboratory Tests Test 11/26/16 17:09 Glucose (Fingerstick) 148mg/dL (70-99) PE: GEN: NAD LUNGS: +nasal cannula HEART: RRR ABD: NABS, S/ND, some RLQ discomfort NEURO/PSYCH: A & O 3 A/P: Cardiac arrest, resp failure, [place] -extubated -heart cath on hold w/ increasing Cr -on TPN, Pepcid Possible ischemic bowel -diarrhea improved/resolved -rectal tube out, C Diff neg, hemoccult neg -- Continue same per GI. YAMEL CUEVAS Nov 27, 2016 12:24
--- NOTE | 2016-11-27 12:24 | PDOC ---
PULMONARY PROGRESS NOTES Subjective extubated 11/26 doing mouth breathing today/ SOA following commands Vitals Vital Signs Date Time Temp Pulse Resp B/P Pulse Ox O2 Delivery O2 Flow Rate FiO2 11/27/16 11:26 106 201/50 11/27/16 08:00 Nasal Cannula 6.0 11/27/16 07:22 94 11/27/16 07:00 98.8 18 98.8 General: Lethargic Lungs: Clear Cardiovascular: S1, S2 Abdomen: Soft Neuro Exam: Alert Extremities: Other (2=edema) Skin: Warm Labs Laboratory Tests Test 11/25/16 12:23 11/25/16 12:55 11/25/16 13:46 11/25/16 14:00 Glucose (Fingerstick) 107mg/dL (70-99) 98mg/dL (70-99) Urine Collection Type Unknown Urine Color Red Urine Clarity Turbid Urine pH 5.0 Urine Specific [place] 1.020 Urine Protein 30mg/dL (NEG-TRACE) Urine Glucose (UA) Negativemg/dL (NEG) Urine Ketones (Stick) Tracemg/dL (NEG) Urine Blood Large (NEG) Urine Nitrite Negative (NEG) Urine Bilirubin Negative (NEG) Urine Urobilinogen Dipstick 0.2mg/dL (0.2 mg/dL) Urine Leukocyte Esterase Moderate (NEG) Urine RBC Tntc/HPF (0-2) Urine WBC 5-10/HPF (0-4) Urine Bacteria Few/HPF (0-FEW) Urine Random Creatinine 96.1mg/dL (Not Estab.) Urine Random Sodium 28mmol/L (Not Estab.) O2 Saturation 96% (92-99) Arterial Blood pH 7.34 (7.35-7.45) Arterial Blood pCO2 at Patient Temp 39mmHg (35-46) Arterial Blood pO2 at Patient Temp 93mmHg (65-108) Arterial Blood HCO3 20mmol/L (21-28) Arterial Blood Base Excess -5mmol/L (-3-3) FiO2 60 Test 11/25/16 14:50 11/25/16 15:45 11/25/16 15:48 11/25/16 15:55 Glucose (Fingerstick) 95mg/dL (70-99) 106mg/dL (70-99) Lactic Acid Level 1.5mmol/L (0.4-2.0) White Blood Count 11.6x10^3/uL (4.0-11.0) Red Blood Count 3.45x10^6/uL (4.30-5.70) Hemoglobin 10.3g/dL (13.0-17.5) Hematocrit 30.6% (39.0-53.0) Mean Corpuscular Volume 89fL (79-100) Mean Corpuscular Hemoglobin 30pg (25-35) Mean Corpuscular Hemoglobin Concent 34g/dL (31-37) Red Cell Distribution Width 14.2% (11.5-14.5) Platelet Count 78x10^3/uL (140-400) Prothrombin Time 20.5SEC (11.7-14.0) Prothromb Time International Ratio 1.9 (0.8-1.1) Activated Partial Thromboplast Time > 150SEC (24-38) Heparin Anti-Xa Act, Unfractionated > 1.10IU/mL (0.30-0.70) Sodium Level 143mmol/L (136-145) Potassium Level 3.9mmol/L (3.5-5.1) Chloride Level 106mmol/L (98-107) Carbon Dioxide Level 23mmol/L (21-32) Anion Gap 14 (6-14) Blood Urea Nitrogen 33mg/dL (8-26) Creatinine 1.8mg/dL (0.7-1.3) Estimated GFR (Cockcroft-Gault) 37.4 Glucose Level 116mg/dL (70-99) Calcium Level 7.1mg/dL (8.5-10.1) Phosphorus Level 4.4mg/dL (2.6-4.7) Magnesium Level 1.8mg/dL (1.8-2.4) Troponin I Quantitative 1.764ng/mL (0.000-0.055) Test 11/25/16 16:58 11/25/16 18:29 11/25/16 18:45 11/25/16 19:38 Glucose (Fingerstick) 105mg/dL (70-99) 110mg/dL (70-99) 92mg/dL (70-99) Potassium Level 3.6mmol/L (3.5-5.1) Test 11/25/16 19:55 11/25/16 20:55 11/25/16 21:59 11/25/16 22:00 Activated Partial Thromboplast Time > 150SEC (24-38) Sodium Level 142mmol/L (136-145) Potassium Level 3.9mmol/L (3.5-5.1) Chloride Level 105mmol/L (98-107) Carbon Dioxide Level 23mmol/L (21-32) Anion Gap 14 (6-14) Blood Urea Nitrogen 34mg/dL (8-26) Creatinine 1.8mg/dL (0.7-1.3) Estimated GFR (Cockcroft-Gault) 37.4 Glucose Level 118mg/dL (70-99) Calcium Level 7.1mg/dL (8.5-10.1) Phosphorus Level 4.7mg/dL (2.6-4.7) Magnesium Level 1.8mg/dL (1.8-2.4) Troponin I Quantitative 1.690ng/mL (0.000-0.055) Glucose (Fingerstick) 90mg/dL (70-99) 109mg/dL (70-99) O2 Saturation 96% (92-99) Arterial Blood pH 7.40 (7.35-7.45) Arterial Blood pH (Temp corrected) 7.42 Arterial Blood pCO2 at Patient Temp 31mmHg (35-46) Arterial Blood pCO2 (Temp correct) 30mmHg Arterial Blood pO2 at Patient Temp 94mmHg (65-108) Arterial Blood pO2 (Temp corrected) 89mmHg Arterial Blood HCO3 19mmol/L (21-28) Arterial Blood Base Excess -5mmol/L (-3-3) Test 11/25/16 22:05 11/26/16 00:00 11/26/16 04:55 11/26/16 05:26 White Blood Count 10.8x10^3/uL (4.0-11.0) 13.7x10^3/uL (4.0-11.0) Red Blood Count 3.13x10^6/uL (4.30-5.70) 2.69x10^6/uL (4.30-5.70) Hemoglobin 9.5g/dL (13.0-17.5) 8.1g/dL (13.0-17.5) Hematocrit 27.9% (39.0-53.0) 24.3% (39.0-53.0) Mean Corpuscular Volume 89fL (79-100) 90fL (79-100) Mean Corpuscular Hemoglobin 30pg (25-35) 30pg (25-35) Mean Corpuscular Hemoglobin Concent 34g/dL (31-37) 34g/dL (31-37) Red Cell Distribution Width 14.2% (11.5-14.5) 13.9% (11.5-14.5) Platelet Count 81x10^3/uL (140-400) 107x10^3/uL (140-400) Prothrombin Time 18.2SEC (11.7-14.0) 17.0SEC (11.7-14.0) Prothromb Time International Ratio 1.6 (0.8-1.1) 1.5 (0.8-1.1) Heparin Anti-Xa Act, Unfractionated > 1.10IU/mL (0.30-0.70) 0.24IU/mL (0.30-0.70) Lactic Acid Level 1.2mmol/L (0.4-2.0) Sodium Level 141mmol/L (136-145) 144mmol/L (136-145) Potassium Level 3.8mmol/L (3.5-5.1) 3.5mmol/L (3.5-5.1) Chloride Level 104mmol/L (98-107) 105mmol/L (98-107) Carbon Dioxide Level 23mmol/L (21-32) 20mmol/L (21-32) Anion Gap 14 (6-14) 19 (6-14) Blood Urea Nitrogen 36mg/dL (8-26) 36mg/dL (8-26) Creatinine 2.0mg/dL (0.7-1.3) 2.2mg/dL (0.7-1.3) Estimated GFR (Cockcroft-Gault) 33.1 29.7 Glucose Level 120mg/dL (70-99) 194mg/dL (70-99) Calcium Level 6.9mg/dL (8.5-10.1) 6.6mg/dL (8.5-10.1) Phosphorus Level 5.2mg/dL (2.6-4.7) 6.6mg/dL (2.6-4.7) Magnesium Level 1.7mg/dL (1.8-2.4) 1.6mg/dL (1.8-2.4) Troponin I Quantitative 1.387ng/mL (0.000-0.055) 1.168ng/mL (0.000-0.055) Activated Partial Thromboplast Time 82SEC (24-38) Total Bilirubin 0.6mg/dL (0.2-1.0) Direct Bilirubin 0.2mg/dL (0.0-0.2) Aspartate Amino Transf (AST/SGOT) 117U/L (15-37) Alanine Aminotransferase (ALT/SGPT) 278U/L (16-63) Alkaline Phosphatase 58U/L (46-116) Total Protein 4.7g/dL (6.4-8.2) Albumin 2.1g/dL (3.4-5.0) Lipase 57U/L (73-393) Glucose (Fingerstick) 158mg/dL (70-99) Test 11/26/16 08:25 11/26/16 08:30 11/26/16 11:00 11/26/16 12:01 Activated Partial Thromboplast Time 103SEC (24-38) Magnesium Level 2.5mg/dL (1.8-2.4) O2 Saturation 98% (92-99) Arterial Blood pH 7.32 (7.35-7.45) Arterial Blood pCO2 at Patient Temp 31mmHg (35-46) Arterial Blood pO2 at Patient Temp 130mmHg (65-108) Arterial Blood HCO3 16mmol/L (21-28) Arterial Blood Base Excess -9mmol/L (-3-3) FiO2 60 Glucose (Fingerstick) 242mg/dL (70-99) 251mg/dL (70-99) Heparin Anti-Xa Act, Unfractionated 0.27IU/mL (0.30-0.70) Test 11/26/16 12:40 11/26/16 17:00 11/26/16 17:09 11/26/16 23:30 O2 Saturation 94% (92-99) Arterial Blood pH 7.41 (7.35-7.45) Arterial Blood pCO2 at Patient Temp 32mmHg (35-46) Arterial Blood pO2 at Patient Temp 80mmHg (65-108) Arterial Blood HCO3 20mmol/L (21-28) Arterial Blood Base Excess -4mmol/L (-3-3) FiO2 40 Heparin Anti-Xa Act, Unfractionated 0.50IU/mL (0.30-0.70) 0.36IU/mL (0.30-0.70) Glucose (Fingerstick) 148mg/dL (70-99) Test 11/27/16 06:00 Heparin Anti-Xa Act, Unfractionated 0.71IU/mL (0.30-0.70) Sodium Level 141mmol/L (136-145) Potassium Level 3.9mmol/L (3.5-5.1) Chloride Level 105mmol/L (98-107) Carbon Dioxide Level 27mmol/L (21-32) Anion Gap 9 (6-14) Blood Urea Nitrogen 42mg/dL (8-26) Creatinine 2.6mg/dL (0.7-1.3) Estimated GFR (Cockcroft-Gault) 24.5 Glucose Level 224mg/dL (70-99) Calcium Level 7.5mg/dL (8.5-10.1) Phosphorus Level 3.9mg/dL (2.6-4.7) Magnesium Level 2.3mg/dL (1.8-2.4) Creatine Kinase 774U/L (39-308) Laboratory Tests Test 11/26/16 12:40 11/26/16 17:00 11/26/16 17:09 11/26/16 23:30 O2 Saturation 94% (92-99) Arterial Blood pH 7.41 (7.35-7.45) Arterial Blood pCO2 at Patient Temp 32mmHg (35-46) Arterial Blood pO2 at Patient Temp 80mmHg (65-108) Arterial Blood HCO3 20mmol/L (21-28) Arterial Blood Base Excess -4mmol/L (-3-3) FiO2 40 Heparin Anti-Xa Act, Unfractionated 0.50IU/mL (0.30-0.70) 0.36IU/mL (0.30-0.70) Glucose (Fingerstick) 148mg/dL (70-99) Test 11/27/16 06:00 Heparin Anti-Xa Act, Unfractionated 0.71IU/mL (0.30-0.70) Sodium Level 141mmol/L (136-145) Potassium Level 3.9mmol/L (3.5-5.1) Chloride Level 105mmol/L (98-107) Carbon Dioxide Level 27mmol/L (21-32) Anion Gap 9 (6-14) Blood Urea Nitrogen 42mg/dL (8-26) Creatinine 2.6mg/dL (0.7-1.3) Estimated GFR (Cockcroft-Gault) 24.5 Glucose Level 224mg/dL (70-99) Calcium Level 7.5mg/dL (8.5-10.1) Phosphorus Level 3.9mg/dL (2.6-4.7) Magnesium Level 2.3mg/dL (1.8-2.4) Creatine Kinase 774U/L (39-308) Impression . 1. Acute respiratory failure secondary to [id number] cardiopulmonary arrest. Suspect secondary to arrhythmia. 2. Hyperlipidemia. 3. Diabetes. 4. Positive venous Doppler on Heparin/ popliteal nonocclusive thrombus. 5. Metabolic acidosis sec to code 6. Possible PE 7. Ischemia CM 35-40% 8. Acute kidney injury Plan . 1. s/p extubation 11/26, c/o SOA, suspect metabolic acidosis. will get ABG and CXR to r/o CHF 2. s/p hypothermic protocol 3. Cardiology follow rec 4. follow nephrology input 5. Further cardiac workup per Dr. Lu. 6. Titrate FIO2. 7. No need for antibiotics. d/w entire family ZULEYMA ERVIN MD Nov 27, 2016 12:24
[2016-11-27 12:36] LABS: HCO3 ABG 24 mmol/L (21-28); PCO2 ABG 34 mmHg (35-46); PH ABG 7.47 (7.35-7.45); PO2 ABG 58 mmHg (65-108); SAT O2 ABG 88 % (92-99)
[2016-11-27] MEDS ORDERED: SODIUM BICARB ADULT 8.4% 50 MEQ/50 ML DISP.SYRIN. IV ONE (12:45)
[2016-11-27 12:51] LABS: FIO2 ABG 60%
--- NOTE | 2016-11-27 13:03 | PDOC ---
CARMELO POSADAS B[employer] GRADER 11/27/16 1303: CARDIO Progress Notes Date and Time Date of Service 11/27/16 Time of Evaluation 1045 Subjective Subjective: No Chest Pain, Other (extubated. Denies SOA although mouth breathing and appears mildly dyspneic ) Vitals Vitals Vital Signs Date Time Temp Pulse Resp B/P Pulse Ox O2 Delivery O2 Flow Rate FiO2 11/27/16 11:26 106 201/50 11/27/16 08:00 Nasal Cannula 6.0 11/27/16 07:22 94 11/27/16 07:00 98.8 18 98.8 Weight Weight [ ] Input and Output Intake and Output Intake and Output 11/27/16 07:00 Intake Total 4234.4 ml Output Total 1804 ml Balance 2430.4 ml Intake IV Total 4234.4 ml Output Urine Total 1804 ml Laboratory Labs Laboratory Tests Test 11/26/16 17:00 11/26/16 17:09 11/26/16 23:30 11/27/16 06:00 Heparin Anti-Xa Act, Unfractionated 0.50IU/mL (0.30-0.70) 0.36IU/mL (0.30-0.70) 0.71IU/mL (0.30-0.70) Glucose (Fingerstick) 148mg/dL (70-99) Sodium Level 141mmol/L (136-145) Potassium Level 3.9mmol/L (3.5-5.1) Chloride Level 105mmol/L (98-107) Carbon Dioxide Level 27mmol/L (21-32) Anion Gap 9 (6-14) Blood Urea Nitrogen 42mg/dL (8-26) Creatinine 2.6mg/dL (0.7-1.3) Estimated GFR (Cockcroft-Gault) 24.5 Glucose Level 224mg/dL (70-99) Calcium Level 7.5mg/dL (8.5-10.1) Phosphorus Level 3.9mg/dL (2.6-4.7) Magnesium Level 2.3mg/dL (1.8-2.4) Creatine Kinase 774U/L (39-308) Microbiology Micro Microbiology 11/24/16 Blood Culture - Preliminary, Resulted NO GROWTH AFTER 3 DAYS 11/24/16 Stool Culture - Final, Resulted 11/24/16 Stool Culture Result 1 (ROSIE) - Final, Resulted 11/24/16 Campylobacter Antigen Assay - Preliminary, Resulted 11/24/16 Campylobactor Result 1 - Preliminary, Resulted 11/24/16 Shiga Toxin Test - Final, Resulted 11/25/16 Urine Culture - Preliminary, Resulted 11/25/16 Urine Culture Result 1 (ROSIE) - Preliminary, Resulted Physical Exam HEENT: Neck Supple W Full Motion Chest: Symmetric LUNGS: Clear to Auscultation, Other (bibasilar crackles) Heart: S1S2, RRR, no murmurs, other (tele SR- ST) Abdomen: Soft N/T Extremities: 2+ Dorsalis Pedis, Other (ext warm to touch. Mild bilateral hand edema. Mild RLE edema ) Neurology: alert, oriented (to person and place), follow commands, other ( fatigued) Assessment Assessment 1. S/p cardiac arrest; troponin trending downward 2. Respiratory failure; extubated 11/26 3. Bilateral DVT 4. ? PE- echo with RV dilation 5. Systolic HF; cardiomyopathy, new - EF 35-40% 6. Leukocytosis, fevers overnight 7. Hypomagnesemia 8. Diabetes 9. HAMILTON with ?CKD; CR 2.6 10. Transaminitis; improved 11. Hypertension 12. ? ischemic bowel; no further diarrhea. stool cult neg. Recommendations Hydralazine IV PRN check CXR- ? need for diuresis. Fluid balance + > 5L over last 48hrs On TPN In light of stability from CV perspective and worsening renal function; will defer cardiac cath at this time- d/w family. Proceed when optimized. Febrile overnight; 1/ BC + cocci: per ID Will follow closely Renal optimization per nephrology Continue heparin gtt. Supportive care FARIDA ALDRICH MD 11/27/16 1441: CARDIO Progress Notes Plan Plan Patient seen and examined. Agree with above nurse practitioner note. No acute events overnight. This morning he is awake and responding but appears to be drowsy. He has had some mild hypertension. On exam he appears to be mildly volume overloaded. CXR does not show significant vascular congestion. Will monitor closely. Post-pone cath till atleast tomorrow. CARMELO POSADAS APRN Nov 27, 2016 13:03 FARIDA ALDRICH MD Nov 27, 2016 14:41
[2016-11-27] MEDS: ALBUMIN HUMAN 25% 100 ML IV SCH ×2 (13:23→21:12)
[2016-11-27 13:34] LABS: UR PROTEIN RD 44.5 mg/dL (Not Estab.)
--- NOTE | 2016-11-27 14:02 | RAD ---
Portable chest, 11/27/2016: History: Dyspnea Comparison is made to yesterday's study. The ET tube and NG tube have been removed. A right jugular central venous catheter extends into the superior vena cava. The heart size is unchanged. Right parahilar and basilar opacities have developed suggesting atelectasis/infiltrate. A component of pleural fluid layering posteriorly cannot be excluded. There is minimal left basilar atelectasis. IMPRESSION: 1. Moderate atelectasis/infiltrate has developed in the right lower chest. 2. Mild left basilar atelectasis.
[2016-11-27] MEDS ORDERED: METOPROLOL TARTRATE 5 MG/5 ML VIAL. IVP SCH (15:30)
[2016-11-27] MEDS: hydrALAZINE 20 MG/ML VIAL. IVP PRN (19:52)
[2016-11-27 21:01] LABS: BODY TEMP ABG 99.5 DEG; CORRECTED PCO2 ABG 31 mmHg; CORRECTED PH ABG 7.54; CORRECTED PO2 ABG 65 mmHg; HCO3 ABG 26 mmol/L (21-28); PCO2 ABG 31 mmHg (35-46); PO2 ABG 63 mmHg (65-108); SAT O2 ABG 93 % (92-99)
[2016-11-27 21:05] LABS: PH ABG 7.55 (7.35-7.45)
[2016-11-27] MEDS: NICARDIPINE HCL 50 MG in IV NORMAL SALINE 250ML 250 ML IV PRN (21:05)
[2016-11-27 21:06] LABS: FIO2 ABG 60
[2016-11-27] MEDS: FAMOTIDINE 20 MG/2 ML VIAL IVP SCH (21:12)
[2016-11-27] MEDS: METOPROLOL TARTRATE 5 MG/5 ML VIAL. IVP SCH (21:49)
[2016-11-27] MEDS ORDERED: DEXTROSE 70% IV SCH ×17 (22:00)
[2016-11-27] MEDS ORDERED: TOTAL PARENTERAL NUTRITION IV SCH ×17 (22:00)
[2016-11-27] MEDS ORDERED: [UNRECOGNIZED DRUG - OTHER] IV SCH ×9 (22:00)
[2016-11-27] MEDS ORDERED: VANCOMYCIN PER PHARMACY MC PRN (22:00)
[2016-11-27] MEDS ORDERED: AMINO ACIDS IV SCH ×17 (22:00)
[2016-11-27] MEDS ORDERED: [UNRECOGNIZED DRUG - OTHER] IV SCH ×8 (22:00)
[2016-11-27] MEDS ORDERED: VANCOMYCIN 2 GM in IV NORMAL SALINE 500ML BAG 500 ML IV ONE (22:00)
[2016-11-28] VITALS (44 sets, daily range): BP systolic 111–173; BP diastolic 33–75
[2016-11-28] MEDS: hydrALAZINE 20 MG/ML VIAL. IVP PRN (00:40)
[2016-11-28] MEDS: PIPERACILLIN/TAZOBACTAM 3.375 GM in IV NORMAL SALINE 50ML 50 ML IV SCH ×4 (01:06→18:00)
[2016-11-28] MEDS: INSULIN ASPART 300 UNITS/3 ML INSULN.PEN SQ SCH ×4 (01:08→17:36)
[2016-11-28] MEDS: NICARDIPINE HCL 50 MG in IV NORMAL SALINE 250ML 250 ML IV PRN (01:13)
[2016-11-28] MEDS: HEPARIN 25,000UTS/500ML PREMIX 500 ML IV PRN (02:06)
[2016-11-28] MEDS: ACETAMINOPHEN 650 MG SUPP.RECT. PR PRN (04:19)
[2016-11-28] MEDS: METOPROLOL TARTRATE 5 MG/5 ML VIAL. IVP SCH ×4 (05:06→21:18)
[2016-11-28 06:27] LABS: RED BLOOD COUNT 1.16 x10^6/uL (4.30-5.70); RED CELL DISTRIBUTION WIDTH 14.2 % (11.5-14.5); WHITE BLOOD COUNT 11.7 x10^3/uL (4.0-11.0)
[2016-11-28 06:30] LABS: HEMATOCRIT 10.5 % (39.0-53.0); HEMOGLOBIN 3.5 g/dL (13.0-17.5)
[2016-11-28 06:53] LABS: ALBUMIN 2.2 g/dL (3.4-5.0); CALCIUM 7.6 mg/dL (8.5-10.1); CREATININE 2.6 mg/dL (0.7-1.3); GFR 24.5; PHOSPHORUS 3.1 mg/dL (2.6-4.7); POTASSIUM 3.9 mmol/L (3.5-5.1)
[2016-11-28 08:05] LABS: HCO3 ABG 22 mmol/L (21-28); PCO2 ABG 27 mmHg (35-46); PH ABG 7.53 (7.35-7.45); PO2 ABG 85 mmHg (65-108); SAT O2 ABG 95 % (92-99)
--- NOTE | 2016-11-28 08:19 | PDOC ---
Infectious Disease Note Subjective Subjective lethargic on bipap ROS ROS unable to do Vital Sign Vital Signs Vital Signs Date Time Temp Pulse Resp B/P Pulse Ox O2 Delivery O2 Flow Rate FiO2 11/28/16 07:04 100 BiPAP/CPAP 11/28/16 07:00 93 18 140/46 11/28/16 05:00 101.3 101.3 11/27/16 21:10 10.0 Physical Exam PHYSICAL EXAM GENERAL: lethargic on bipap HEENT: PERRL, OC/OP NECK: Supple, no JVD, no LN LUNGS: Clear HEART: S1S2, no gallop, no murmur ABD: Soft, NT, no organomegaly, no rebound EXT: No edema, no cyanosis ACTIVITIES CONCIERGE: lethargic SKIN: No rash IV: ok Labs Lab Laboratory Tests Test 11/27/16 12:25 11/27/16 19:34 11/27/16 20:35 11/28/16 00:58 O2 Saturation 88% (92-99) 93% (92-99) Arterial Blood pH 7.47 (7.35-7.45) 7.55 (7.35-7.45) Arterial Blood pCO2 at Patient Temp 34mmHg (35-46) 31mmHg (35-46) Arterial Blood pO2 at Patient Temp 58mmHg (65-108) 63mmHg (65-108) Arterial Blood HCO3 24mmol/L (21-28) 26mmol/L (21-28) Arterial Blood Base Excess 1mmol/L (-3-3) 3mmol/L (-3-3) FiO2 60% 60 Glucose (Fingerstick) 211mg/dL (70-99) 228mg/dL (70-99) Arterial Blood pH (Temp corrected) 7.54 Arterial Blood pCO2 (Temp correct) 31mmHg Arterial Blood pO2 (Temp corrected) 65mmHg Test 11/28/16 05:42 11/28/16 06:05 Glucose (Fingerstick) 221mg/dL (70-99) White Blood Count 11.7x10^3/uL (4.0-11.0) Red Blood Count 1.16x10^6/uL (4.30-5.70) Hemoglobin 3.5g/dL (13.0-17.5) Hematocrit 10.5% (39.0-53.0) Mean Corpuscular Volume 90fL (79-100) Mean Corpuscular Hemoglobin 30pg (25-35) Mean Corpuscular Hemoglobin Concent 33g/dL (31-37) Red Cell Distribution Width 14.2% (11.5-14.5) Platelet Count 103x10^3/uL (140-400) Heparin Anti-Xa Act, Unfractionated > 1.10IU/mL (0.30-0.70) Sodium Level 141mmol/L (136-145) Potassium Level 3.9mmol/L (3.5-5.1) Chloride Level 106mmol/L (98-107) Carbon Dioxide Level 25mmol/L (21-32) Anion Gap 10 (6-14) Blood Urea Nitrogen 43mg/dL (8-26) Creatinine 2.6mg/dL (0.7-1.3) Estimated GFR (Cockcroft-Gault) 24.5 Glucose Level 228mg/dL (70-99) Calcium Level 7.6mg/dL (8.5-10.1) Phosphorus Level 3.1mg/dL (2.6-4.7) Magnesium Level 2.3mg/dL (1.8-2.4) Creatine Kinase 381U/L (39-308) Albumin 2.2g/dL (3.4-5.0) Micro BC 1/4 G + cocci Objective Assessment S/P VT/VF Cardiac arrest, on hypothermia protocol DVT suspected PE Suspected ischemic bowel Lactic acidosis Leukocytosis likely reactive BC 1/4 G + cocci Plan Plan of Care supportive care cont zosyn for now, repeat culture and add DANI Adams MD Nov 28, 2016 08:19
[2016-11-28 08:21] LABS: FIO2 ABG 50
--- NOTE | 2016-11-28 08:26 | RAD ---
Indication difficulty breathing. Pneumonia. A single view of the chest was obtained and is compared to a study one day earlier. There is not been a significant change. Volume loss at the right lung base compatible with pleural fluid and atelectasis or pneumonia is similar. Heart and pulmonary vessels are similar. Right IJ catheter is again noted. IMPRESSION: No significant change in the chest compared to yesterday's study
[2016-11-28] MEDS ORDERED: LINEZOLID 600 MG TABLET PO SCH (09:00)
--- NOTE | 2016-11-28 09:37 | PDOC ---
PULMONARY PROGRESS NOTES Subjective on 02, confused, using accessory muscles, prbc, on hep gtt. Vitals Vital Signs Date Time Temp Pulse Resp B/P Pulse Ox O2 Delivery O2 Flow Rate FiO2 11/28/16 08:30 101.5 88 20 137/46 101.5 11/28/16 07:04 100 BiPAP/CPAP 11/27/16 21:10 10.0 Comments ros as mentioned as above. discussed w rn, answers some Qs, other sys otherwise neg General: Lethargic HEENT: Other (nc at, perrl, nose clear, shallow oropharynx. neck, + jvd, no thyromegaly, no lap) Lungs: Wheezing Cardiovascular: S1, S2 Abdomen: Soft, Non-tender, Other (no mass) Extremities: Other (2=edema) Skin: Warm Labs Laboratory Tests Test 11/26/16 11:00 11/26/16 12:01 11/26/16 12:40 11/26/16 17:00 Heparin Anti-Xa Act, Unfractionated 0.27IU/mL (0.30-0.70) 0.50IU/mL (0.30-0.70) Glucose (Fingerstick) 251mg/dL (70-99) O2 Saturation 94% (92-99) Arterial Blood pH 7.41 (7.35-7.45) Arterial Blood pCO2 at Patient Temp 32mmHg (35-46) Arterial Blood pO2 at Patient Temp 80mmHg (65-108) Arterial Blood HCO3 20mmol/L (21-28) Arterial Blood Base Excess -4mmol/L (-3-3) FiO2 40 Test 11/26/16 17:09 11/26/16 23:30 11/27/16 06:00 11/27/16 12:25 Glucose (Fingerstick) 148mg/dL (70-99) Heparin Anti-Xa Act, Unfractionated 0.36IU/mL (0.30-0.70) 0.71IU/mL (0.30-0.70) Sodium Level 141mmol/L (136-145) Potassium Level 3.9mmol/L (3.5-5.1) Chloride Level 105mmol/L (98-107) Carbon Dioxide Level 27mmol/L (21-32) Anion Gap 9 (6-14) Blood Urea Nitrogen 42mg/dL (8-26) Creatinine 2.6mg/dL (0.7-1.3) Estimated GFR (Cockcroft-Gault) 24.5 Glucose Level 224mg/dL (70-99) Calcium Level 7.5mg/dL (8.5-10.1) Phosphorus Level 3.9mg/dL (2.6-4.7) Magnesium Level 2.3mg/dL (1.8-2.4) Creatine Kinase 774U/L (39-308) O2 Saturation 88% (92-99) Arterial Blood pH 7.47 (7.35-7.45) Arterial Blood pCO2 at Patient Temp 34mmHg (35-46) Arterial Blood pO2 at Patient Temp 58mmHg (65-108) Arterial Blood HCO3 24mmol/L (21-28) Arterial Blood Base Excess 1mmol/L (-3-3) FiO2 60% Test 11/27/16 19:34 11/27/16 20:35 11/28/16 00:58 11/28/16 05:42 Glucose (Fingerstick) 211mg/dL (70-99) 228mg/dL (70-99) 221mg/dL (70-99) O2 Saturation 93% (92-99) Arterial Blood pH 7.55 (7.35-7.45) Arterial Blood pH (Temp corrected) 7.54 Arterial Blood pCO2 at Patient Temp 31mmHg (35-46) Arterial Blood pCO2 (Temp correct) 31mmHg Arterial Blood pO2 at Patient Temp 63mmHg (65-108) Arterial Blood pO2 (Temp corrected) 65mmHg Arterial Blood HCO3 26mmol/L (21-28) Arterial Blood Base Excess 3mmol/L (-3-3) FiO2 60 Test 11/28/16 06:05 11/28/16 08:00 White Blood Count 11.7x10^3/uL (4.0-11.0) Red Blood Count 1.16x10^6/uL (4.30-5.70) Hemoglobin 3.5g/dL (13.0-17.5) Hematocrit 10.5% (39.0-53.0) Mean Corpuscular Volume 90fL (79-100) Mean Corpuscular Hemoglobin 30pg (25-35) Mean Corpuscular Hemoglobin Concent 33g/dL (31-37) Red Cell Distribution Width 14.2% (11.5-14.5) Platelet Count 103x10^3/uL (140-400) Heparin Anti-Xa Act, Unfractionated > 1.10IU/mL (0.30-0.70) Sodium Level 141mmol/L (136-145) Potassium Level 3.9mmol/L (3.5-5.1) Chloride Level 106mmol/L (98-107) Carbon Dioxide Level 25mmol/L (21-32) Anion Gap 10 (6-14) Blood Urea Nitrogen 43mg/dL (8-26) Creatinine 2.6mg/dL (0.7-1.3) Estimated GFR (Cockcroft-Gault) 24.5 Glucose Level 228mg/dL (70-99) Calcium Level 7.6mg/dL (8.5-10.1) Phosphorus Level 3.1mg/dL (2.6-4.7) Magnesium Level 2.3mg/dL (1.8-2.4) Creatine Kinase 381U/L (39-308) Albumin 2.2g/dL (3.4-5.0) O2 Saturation 95% (92-99) Arterial Blood pH 7.53 (7.35-7.45) Arterial Blood pCO2 at Patient Temp 27mmHg (35-46) Arterial Blood pO2 at Patient Temp 85mmHg (65-108) Arterial Blood HCO3 22mmol/L (21-28) Arterial Blood Base Excess -1mmol/L (-3-3) FiO2 50 Laboratory Tests Test 11/27/16 12:25 11/27/16 19:34 11/27/16 20:35 11/28/16 00:58 O2 Saturation 88% (92-99) 93% (92-99) Arterial Blood pH 7.47 (7.35-7.45) 7.55 (7.35-7.45) Arterial Blood pCO2 at Patient Temp 34mmHg (35-46) 31mmHg (35-46) Arterial Blood pO2 at Patient Temp 58mmHg (65-108) 63mmHg (65-108) Arterial Blood HCO3 24mmol/L (21-28) 26mmol/L (21-28) Arterial Blood Base Excess 1mmol/L (-3-3) 3mmol/L (-3-3) FiO2 60% 60 Glucose (Fingerstick) 211mg/dL (70-99) 228mg/dL (70-99) Arterial Blood pH (Temp corrected) 7.54 Arterial Blood pCO2 (Temp correct) 31mmHg Arterial Blood pO2 (Temp corrected) 65mmHg Test 11/28/16 05:42 11/28/16 06:05 11/28/16 08:00 Glucose (Fingerstick) 221mg/dL (70-99) White Blood Count 11.7x10^3/uL (4.0-11.0) Red Blood Count 1.16x10^6/uL (4.30-5.70) Hemoglobin 3.5g/dL (13.0-17.5) Hematocrit 10.5% (39.0-53.0) Mean Corpuscular Volume 90fL (79-100) Mean Corpuscular Hemoglobin 30pg (25-35) Mean Corpuscular Hemoglobin Concent 33g/dL (31-37) Red Cell Distribution Width 14.2% (11.5-14.5) Platelet Count 103x10^3/uL (140-400) Heparin Anti-Xa Act, Unfractionated > 1.10IU/mL (0.30-0.70) Sodium Level 141mmol/L (136-145) Potassium Level 3.9mmol/L (3.5-5.1) Chloride Level 106mmol/L (98-107) Carbon Dioxide Level 25mmol/L (21-32) Anion Gap 10 (6-14) Blood Urea Nitrogen 43mg/dL (8-26) Creatinine 2.6mg/dL (0.7-1.3) Estimated GFR (Cockcroft-Gault) 24.5 Glucose Level 228mg/dL (70-99) Calcium Level 7.6mg/dL (8.5-10.1) Phosphorus Level 3.1mg/dL (2.6-4.7) Magnesium Level 2.3mg/dL (1.8-2.4) Creatine Kinase 381U/L (39-308) Albumin 2.2g/dL (3.4-5.0) O2 Saturation 95% (92-99) Arterial Blood pH 7.53 (7.35-7.45) Arterial Blood pCO2 at Patient Temp 27mmHg (35-46) Arterial Blood pO2 at Patient Temp 85mmHg (65-108) Arterial Blood HCO3 22mmol/L (21-28) Arterial Blood Base Excess -1mmol/L (-3-3) FiO2 50 Comments cxr reviewed, Volume loss at the right lung base compatible with pleural fluid and atelectasis or pneumonia is similar. Heart and pulmonary vessels are similar. Right IJ catheter is again noted. Impression . 1. Acute respiratory failure secondary to [id number] cardiopulmonary arrest. Suspect secondary to arrhythmia. 2. Hyperlipidemia. 3. Diabetes. 4. Positive venous Doppler on Heparin/ popliteal nonocclusive thrombus. 5. Metabolic acidosis sec to code 6. Possible PE 7. Ischemia CM 35-40% 8. Acute kidney injury 9. anemia, ? gib 10. wheezing, acute bronchospasm 11. abnl cxr Plan . 1. using accesory muscles, put back on bipap, monitor resp status closely, may need intubation 2. s/p hypothermic protocol 3. Cardiology follow rec 4. follow nephrology input 5. Further cardiac workup per Dr. Lu. 6. Titrate FIO2. 7. cont antibiotics. 8. add bronchodilator, ics 9. add protonix gtt, ? gi consult. repeat h/h d/w entire family in details, code status discussed full code, discussed w rn, rt, cardiology pt is critically ill,, this is cc time 30 min ASHLEY Mary MD Nov 28, 2016 09:37
--- NOTE | 2016-11-28 09:55 | PDOC ---
PROGRESS NOTES Chief Complaint Chief Complaint Cardiac arrest ASSESSMENT AND PLAN; 1. Cardiac arrest: s/p hypothermia 2. Respir failure: extubated 11/26 3. DVT: Bilateral LE. 4. CHF: systolic (EF 35-40%). new. 5. ?[place] with CKD: 6. Leukocytosis: reactive. 7. Transaminitis: 8. DM2: 9. HLD: on statin 10: FAtty liver, asymptomatic cholelithiasis 11. Acute encephalopathy post cardiac cath (11/27) 12. Acute respiratory failure needing NIPPV 11/27 13. Atelectasis History of Present Illness History of Present Illness [facility] was held off bec of elevated creatinine (2.6) and some confusion now needing BIPAP On BIPAP now, confused per other notes Family at bedside CXR: IMPRESSION: 1. Moderate atelectasis/infiltrate has developed in the right lower chest. 2. Mild left basilar atelectasis. ABG results noted PLAn: On heparin gtt for DVT and ? PE Follow renal and pulmo./cards recs IS if able to/more awake BIPAP per pulmo LABs in AM PT/.OT when able Vitals Vitals Vital Signs Date Time Temp Pulse Resp B/P Pulse Ox O2 Delivery O2 Flow Rate FiO2 11/28/16 08:30 101.5 88 20 137/46 101.5 11/28/16 07:04 100 BiPAP/CPAP 11/27/16 21:10 10.0 Physical Exam General: Alert, Cooperative Heart: No murmurs Lungs: Wheezing Abdomen: Soft, No tenderness, No masses Extremities: No cyanosis, Other (1+ LE edema R) Skin: No rashes, No breakdown, No significant lesion Labs LABS Laboratory Tests Test 11/27/16 12:25 11/27/16 19:34 11/27/16 20:35 11/28/16 00:58 O2 Saturation 88% (92-99) 93% (92-99) Arterial Blood pH 7.47 (7.35-7.45) 7.55 (7.35-7.45) Arterial Blood pCO2 at Patient Temp 34mmHg (35-46) 31mmHg (35-46) Arterial Blood pO2 at Patient Temp 58mmHg (65-108) 63mmHg (65-108) Arterial Blood HCO3 24mmol/L (21-28) 26mmol/L (21-28) Arterial Blood Base Excess 1mmol/L (-3-3) 3mmol/L (-3-3) FiO2 60% 60 Glucose (Fingerstick) 211mg/dL (70-99) 228mg/dL (70-99) Arterial Blood pH (Temp corrected) 7.54 Arterial Blood pCO2 (Temp correct) 31mmHg Arterial Blood pO2 (Temp corrected) 65mmHg Test 11/28/16 05:42 11/28/16 06:05 11/28/16 08:00 Glucose (Fingerstick) 221mg/dL (70-99) White Blood Count 11.7x10^3/uL (4.0-11.0) Red Blood Count 1.16x10^6/uL (4.30-5.70) Hemoglobin 3.5g/dL (13.0-17.5) Hematocrit 10.5% (39.0-53.0) Mean Corpuscular Volume 90fL (79-100) Mean Corpuscular Hemoglobin 30pg (25-35) Mean Corpuscular Hemoglobin Concent 33g/dL (31-37) Red Cell Distribution Width 14.2% (11.5-14.5) Platelet Count 103x10^3/uL (140-400) Heparin Anti-Xa Act, Unfractionated > 1.10IU/mL (0.30-0.70) Sodium Level 141mmol/L (136-145) Potassium Level 3.9mmol/L (3.5-5.1) Chloride Level 106mmol/L (98-107) Carbon Dioxide Level 25mmol/L (21-32) Anion Gap 10 (6-14) Blood Urea Nitrogen 43mg/dL (8-26) Creatinine 2.6mg/dL (0.7-1.3) Estimated GFR (Cockcroft-Gault) 24.5 Glucose Level 228mg/dL (70-99) Calcium Level 7.6mg/dL (8.5-10.1) Phosphorus Level 3.1mg/dL (2.6-4.7) Magnesium Level 2.3mg/dL (1.8-2.4) Creatine Kinase 381U/L (39-308) Albumin 2.2g/dL (3.4-5.0) O2 Saturation 95% (92-99) Arterial Blood pH 7.53 (7.35-7.45) Arterial Blood pCO2 at Patient Temp 27mmHg (35-46) Arterial Blood pO2 at Patient Temp 85mmHg (65-108) Arterial Blood HCO3 22mmol/L (21-28) Arterial Blood Base Excess -1mmol/L (-3-3) FiO2 50 Review of Systems Review of Systems confused Assessment and Plan Assessmemt and Plan Problems Medical Problems: (1) Cardiac arrest Status: Acute Problems: Comment Review of Relevant I have reviewed the following items rodolfo (where applicable) has been applied. Labs Laboratory Tests Test 11/26/16 11:00 11/26/16 12:01 11/26/16 12:40 11/26/16 17:00 Heparin Anti-Xa Act, Unfractionated 0.27IU/mL (0.30-0.70) 0.50IU/mL (0.30-0.70) Glucose (Fingerstick) 251mg/dL (70-99) O2 Saturation 94% (92-99) Arterial Blood pH 7.41 (7.35-7.45) Arterial Blood pCO2 at Patient Temp 32mmHg (35-46) Arterial Blood pO2 at Patient Temp 80mmHg (65-108) Arterial Blood HCO3 20mmol/L (21-28) Arterial Blood Base Excess -4mmol/L (-3-3) FiO2 40 Test 11/26/16 17:09 11/26/16 23:30 11/27/16 06:00 11/27/16 12:25 Glucose (Fingerstick) 148mg/dL (70-99) Heparin Anti-Xa Act, Unfractionated 0.36IU/mL (0.30-0.70) 0.71IU/mL (0.30-0.70) Sodium Level 141mmol/L (136-145) Potassium Level 3.9mmol/L (3.5-5.1) Chloride Level 105mmol/L (98-107) Carbon Dioxide Level 27mmol/L (21-32) Anion Gap 9 (6-14) Blood Urea Nitrogen 42mg/dL (8-26) Creatinine 2.6mg/dL (0.7-1.3) Estimated GFR (Cockcroft-Gault) 24.5 Glucose Level 224mg/dL (70-99) Calcium Level 7.5mg/dL (8.5-10.1) Phosphorus Level 3.9mg/dL (2.6-4.7) Magnesium Level 2.3mg/dL (1.8-2.4) Creatine Kinase 774U/L (39-308) O2 Saturation 88% (92-99) Arterial Blood pH 7.47 (7.35-7.45) Arterial Blood pCO2 at Patient Temp 34mmHg (35-46) Arterial Blood pO2 at Patient Temp 58mmHg (65-108) Arterial Blood HCO3 24mmol/L (21-28) Arterial Blood Base Excess 1mmol/L (-3-3) FiO2 60% Test 11/27/16 19:34 11/27/16 20:35 11/28/16 00:58 11/28/16 05:42 Glucose (Fingerstick) 211mg/dL (70-99) 228mg/dL (70-99) 221mg/dL (70-99) O2 Saturation 93% (92-99) Arterial Blood pH 7.55 (7.35-7.45) Arterial Blood pH (Temp corrected) 7.54 Arterial Blood pCO2 at Patient Temp 31mmHg (35-46) Arterial Blood pCO2 (Temp correct) 31mmHg Arterial Blood pO2 at Patient Temp 63mmHg (65-108) Arterial Blood pO2 (Temp corrected) 65mmHg Arterial Blood HCO3 26mmol/L (21-28) Arterial Blood Base Excess 3mmol/L (-3-3) FiO2 60 Test 11/28/16 06:05 11/28/16 08:00 White Blood Count 11.7x10^3/uL (4.0-11.0) Red Blood Count 1.16x10^6/uL (4.30-5.70) Hemoglobin 3.5g/dL (13.0-17.5) Hematocrit 10.5% (39.0-53.0) Mean Corpuscular Volume 90fL (79-100) Mean Corpuscular Hemoglobin 30pg (25-35) Mean Corpuscular Hemoglobin Concent 33g/dL (31-37) Red Cell Distribution Width 14.2% (11.5-14.5) Platelet Count 103x10^3/uL (140-400) Heparin Anti-Xa Act, Unfractionated > 1.10IU/mL (0.30-0.70) Sodium Level 141mmol/L (136-145) Potassium Level 3.9mmol/L (3.5-5.1) Chloride Level 106mmol/L (98-107) Carbon Dioxide Level 25mmol/L (21-32) Anion Gap 10 (6-14) Blood Urea Nitrogen 43mg/dL (8-26) Creatinine 2.6mg/dL (0.7-1.3) Estimated GFR (Cockcroft-Gault) 24.5 Glucose Level 228mg/dL (70-99) Calcium Level 7.6mg/dL (8.5-10.1) Phosphorus Level 3.1mg/dL (2.6-4.7) Magnesium Level 2.3mg/dL (1.8-2.4) Creatine Kinase 381U/L (39-308) Albumin 2.2g/dL (3.4-5.0) O2 Saturation 95% (92-99) Arterial Blood pH 7.53 (7.35-7.45) Arterial Blood pCO2 at Patient Temp 27mmHg (35-46) Arterial Blood pO2 at Patient Temp 85mmHg (65-108) Arterial Blood HCO3 22mmol/L (21-28) Arterial Blood Base Excess -1mmol/L (-3-3) FiO2 50 Laboratory Tests Test 11/27/16 12:25 11/27/16 19:34 11/27/16 20:35 11/28/16 00:58 O2 Saturation 88% (92-99) 93% (92-99) Arterial Blood pH 7.47 (7.35-7.45) 7.55 (7.35-7.45) Arterial Blood pCO2 at Patient Temp 34mmHg (35-46) 31mmHg (35-46) Arterial Blood pO2 at Patient Temp 58mmHg (65-108) 63mmHg (65-108) Arterial Blood HCO3 24mmol/L (21-28) 26mmol/L (21-28) Arterial Blood Base Excess 1mmol/L (-3-3) 3mmol/L (-3-3) FiO2 60% 60 Glucose (Fingerstick) 211mg/dL (70-99) 228mg/dL (70-99) Arterial Blood pH (Temp corrected) 7.54 Arterial Blood pCO2 (Temp correct) 31mmHg Arterial Blood pO2 (Temp corrected) 65mmHg Test 11/28/16 05:42 11/28/16 06:05 11/28/16 08:00 Glucose (Fingerstick) 221mg/dL (70-99) White Blood Count 11.7x10^3/uL (4.0-11.0) Red Blood Count 1.16x10^6/uL (4.30-5.70) Hemoglobin 3.5g/dL (13.0-17.5) Hematocrit 10.5% (39.0-53.0) Mean Corpuscular Volume 90fL (79-100) Mean Corpuscular Hemoglobin 30pg (25-35) Mean Corpuscular Hemoglobin Concent 33g/dL (31-37) Red Cell Distribution Width 14.2% (11.5-14.5) Platelet Count 103x10^3/uL (140-400) Heparin Anti-Xa Act, Unfractionated > 1.10IU/mL (0.30-0.70) Sodium Level 141mmol/L (136-145) Potassium Level 3.9mmol/L (3.5-5.1) Chloride Level 106mmol/L (98-107) Carbon Dioxide Level 25mmol/L (21-32) Anion Gap 10 (6-14) Blood Urea Nitrogen 43mg/dL (8-26) Creatinine 2.6mg/dL (0.7-1.3) Estimated GFR (Cockcroft-Gault) 24.5 Glucose Level 228mg/dL (70-99) Calcium Level 7.6mg/dL (8.5-10.1) Phosphorus Level 3.1mg/dL (2.6-4.7) Magnesium Level 2.3mg/dL (1.8-2.4) Creatine Kinase 381U/L (39-308) Albumin 2.2g/dL (3.4-5.0) O2 Saturation 95% (92-99) Arterial Blood pH 7.53 (7.35-7.45) Arterial Blood pCO2 at Patient Temp 27mmHg (35-46) Arterial Blood pO2 at Patient Temp 85mmHg (65-108) Arterial Blood HCO3 22mmol/L (21-28) Arterial Blood Base Excess -1mmol/L (-3-3) FiO2 50 Microbiology 11/24/16 Blood Culture - Preliminary, Resulted NO GROWTH AFTER 3 DAYS 11/24/16 Stool Culture - Final, Resulted 11/24/16 Stool Culture Result 1 (ROSIE) - Final, Resulted 11/24/16 Campylobacter Antigen Assay - Preliminary, Resulted 11/24/16 Campylobactor Result 1 - Preliminary, Resulted 11/24/16 Shiga Toxin Test - Final, Resulted 11/25/16 Urine Culture - Final, Complete 11/25/16 Urine Culture Result 1 (ROSIE) - Final, Complete Medications Current Medications Sodium Chloride 1,000 ml @ 1,000 mls/hr Q1H IV Last administered on 11/24/16 06:50; Start 11/24/16 at 06:50; Stop 11/24/16 at 07:49; Status DC Epinephrine HCl/ Sodium Chloride (Adrenalin/Iv Sodium Chloride 0.9% 250ml) 254 ml @ 0 mls/hr CONT PRN IV SEE I/O RECORD Last administered on 11/26/16 03:05; Start 11/24/16 at 07:30; Stop 11/27/16 at 08:25; Status DC Insulin Aspart (Novolog) 0-7 UNITS TIDWMEALS SQ ; Start 11/24/16 at 08:00; Stop 11/24/16 at 15:36; Status DC Dextrose 12.5 gm 12.5 gm PRN Q15MIN PRN IV SEE COMMENTS; Start 11/24/16 at 07: 45; Stop 11/25/16 at 23:34; Status DC Sodium Chloride (Iv Sodium Chloride 0.9% 1000ml Bag) 1,000 ml @ 125 mls/hr 1X ONCE IV Last administered on 11/24/16 07:52; Start 11/24/16 at 08:00; Stop at 08:20; Status DC Vancomycin HCl (Vanco Per Pharmacy) 1 each PRN DAILY PRN MC SEE COMMENTS Last administered on 11/24/16 11:26; Start 11/24/16 at 08:15; Stop 11/24/16 at 13:06 ; Status DC Piperacillin Sod/ Tazobactam Sod 1 each 1 each PRN DAILY PRN MC SEE COMMENTS; Start 11/24/16 at 08:15; Stop 11/24/16 at 13:06; Status DC Sodium Bicarbonate 50 meq/Sodium Chloride 1,050 ml @ 125 mls/hr Q8H24M IV Last administered on 11/26/16 11:24; Start 11/24/16 at 08:30; Stop 11/26/16 at 12:41; Status DC Vancomycin HCl 2 gm/Sodium Chloride 500 ml @ 250 mls/hr ONCE ONCE IV Last administered on 11/24/16 10:15; Start 11/24/16 at 08:30; Stop 11/24/16 at 10:29 ; Status DC Piperacillin Sod/ Tazobactam Sod 4.5 gm/Sodium Chloride 100 ml @ 200 mls/hr Q6HRS IV Last administered on 11/24/16 10:10; Start 11/24/16 at 08:30; Stop at 11:15; Status DC Sodium Chloride (Iv Sodium Chloride 0.9% 1000ml Bag) 1,000 ml @ 1,000 mls/hr Q1H IV Last administered on 11/24/16 10:09; Start 11/24/16 at 08:39; Stop at 11:47; Status DC Fentanyl Citrate (Fentanyl 2ml Vial) 25 mcg PRN Q30MIN PRN IV SED; Start at 08:45 Lorazepam 1 mg 1 mg PRN Q30MIN PRN IV SEDATION Last administered on 11/25/16 12:26; Start 11/24/16 at 08:45 Fentanyl Citrate 30 ml @ 2.5 mls/hr CONT PRN PRN IV IVF Last administered on 07:40; Start 11/24/16 at 08:45; Stop 11/26/16 at 17:49; Status DC Propofol (Diprivan) 100 ml @ 0 mls/hr CONT PRN IV SEE I/O RECORD Last administered on 11/26/16 07:38; Start 11/24/16 at 08:45; Stop 11/26/16 at 17:49 ; Status DC Vecuronium [place] (Norcuron Bolus) 9 mg PRN Q30MIN PRN IV SHIVERING Last administered on 11/24/16 17:38; Start 11/24/16 at 08:45; Stop 11/26/16 at 17:49 ; Status DC Meperidine HCl (Demerol) 12.5 mg PRN Q30MIN PRN IV SHIVERING Last administered on 11/24/16 22:21; Start 11/24/16 at 08:45; Stop 11/24/16 at 22:21; Status DC Multi-Ingred Cream/Lotion/Oil/ Oint (Artificial Tears Eye Oint) 1 radha PRN Q6HRS PRN OU 0.5 INCH FOR DRY EYE; Start 11/24/16 at 08:45 Famotidine (Pepcid) 20 mg QHS IVP Last administered on 11/27/16 21:12; Start 11/24/16 at 21:00 Aspirin (Aspirin) 300 mg DAILY [place] Last administered on 11/27/16 09:00; Start 11/24/16 at 09:00 Sodium Chloride (Normal Saline Flush) 3 ml QSHIFT PRN IV AFTER MEDS AND BLOOD DRAWS; Start 11/24/16 at 08:45 Acetaminophen (Tylenol) 650 mg Q6HRS NG ; Start 11/24/16 at 12:00; Stop at 11:59; Status DC Acetaminophen (Tylenol) 650 mg PRN Q6HRS PRN [place] MILD PAIN / TEMP; Start at 08:45; Stop 11/25/16 at 23:35; Status DC Acetaminophen (Tylenol) 650 mg PRN Q6HRS PRN NG MILD PAIN / TEMP; Start at 08:45 Info 1 ea 1 ea DAILY PRN MC PER PROTOCOL; Start 11/26/16 at 08:45 Insulin Human Regular 150 unit/ Sodium Chloride 151.5 ml @ 9.16 mls/hr CONT PRN IV SEE I/O RECORD Last administered on 11/24/16 10:13; Start 11/24/16 at 09 :30; Stop 11/27/16 at 08:25; Status DC Piperacillin Sod/ Tazobactam Sod 3.375 gm/Sodium Chloride 50 ml @ 100 mls/hr Q6HRS IV ; Start 11/24/16 at 18:00; Stop 11/24/16 at 18:00; Status DC Vancomycin HCl/ Sodium Chloride (Iv Sodium Chloride 0.9% 500ml Bag) 500 ml @ 250 mls/hr Q24H IV ; Start 11/25/16 at 10:00; Stop 11/25/16 at 10:00; Status DC Vancomycin HCl 1 each 1 each 1X ONCE MC ; Start 11/26/16 at 09:30; Stop at 09:30; Status DC Sodium Chloride (Iv Sodium Chloride 0.9% 1000ml Bag) 1,000 ml @ 1,000 mls/hr 1X ONCE IV Last administered on 11/24/16 11:00; Start 11/24/16 at 11:00; Stop 11/24/16 at 11:59; Status DC Insulin Detemir (Levemir) 12 units QHS SQ ; Start 11/24/16 at 21:00; Stop at 21:00; Status DC Insulin Aspart (Novolog) 10 units 1X ONCE SQ ; Start 11/24/16 at 15:30; Stop at 20:10; Status DC Insulin Aspart (Novolog) 0-7 UNITS Q4HRS SQ ; Start 11/24/16 at 16:00; Stop at 20:10; Status DC Heparin Sodium (Porcine) 8100 unit 8,100 unit 1X ONCE IV Last administered on 11/24/16 17:24; Start 11/24/16 at 17:00; Stop 11/24/16 at 17:01; Status DC Heparin Sodium/ Dextrose 500 ml @ 0 mls/hr CONT PRN IV SEE I/O RECORD Last administered on 11/28/16 02:06; Start 11/24/16 at 16:45 Heparin Sodium (Porcine) 3,000 unit PRN Q6HRS PRN IV FOR UFH LEVEL LESS THAN 0.2; Start 11/24/16 at 16:45 Heparin Sodium (Porcine) 1,500 unit PRN Q6HRS PRN IV FOR UFH LEVEL 0.2 - 0.29 Last administered on 11/26/16 12:08; Start 11/24/16 at 16:45 Info 1 each 1 each PRN DAILY PRN MC SEE COMMENTS Last administered on 08:50; Start 11/24/16 at 17:00 Piperacillin Sod/ Tazobactam Sod 3.375 gm/Sodium Chloride 50 ml @ 100 mls/hr Q6HRS IV Last administered on 11/28/16 05:46; Start 11/25/16 at 00:00 Vancomycin HCl/ Sodium Chloride (Iv Sodium Chloride 0.9% 250ml) 250 ml @ 250 mls/hr 1X ONCE IV ; Start 11/24/16 at 21:30; Stop 11/24/16 at 22:29; Status UNV Vancomycin HCl 1 each 1 each PRN DAILY PRN MC SEE COMMENTS Last administered on 11/25/16 03:30; Start 11/25/16 at 01:00; Stop 11/25/16 at 08:57; Status DC Vancomycin HCl/ Sodium Chloride (Iv Sodium Chloride 0.9% 500ml Bag) 500 ml @ 250 mls/hr Q24H IV ; Start 11/25/16 at 10:00; Stop 11/25/16 at 10:00; Status DC Vancomycin HCl 1 each 1X ONCE MC ; Start 11/26/16 at 09:30; Stop 11/26/16 at 09 :30; Status DC Enoxaparin Sodium (Lovenox Per Pharmacy Prophylaxis Dosing) 1 each PRN DAILY PRN MC SEE COMMENTS; Start 11/25/16 at 08:45; Status UNV Chlorhexidine Gluconate 15 ml 15 ml BID MM Last administered on 11/26/16 08:37 ; Start 11/25/16 at 21:00; Stop 11/26/16 at 17:49; Status DC Magnesium Sulfate/ Dextrose 50 ml @ 25 mls/hr PRN DAILY PRN IV for Mag < 1.7 on am labs Last administered on 11/26/16 05:29; Start 11/25/16 at 09:45; Stop 11/27/16 at 08:47; Status DC Magnesium Sulfate/ Dextrose 50 ml @ 25 mls/hr PRN DAILY PRN IV for Mag < 1.7 on am labs; Start 11/25/16 at 09:45; Status UNV Sodium Chloride 500 ml @ 0 mls/hr QID PRN IV UO< 30cc/hr over previous 6hrs Last administered on 11/25/16 10:54; Start 11/25/16 at 09:45; Stop 11/27/16 at 11:25; Status DC Magnesium Sulfate/ Dextrose (Magnesium Sulfate PREMIX 2GM) 50 ml @ 25 mls/hr 1X ONCE IV Last administered on 11/25/16 13:28; Start 11/25/16 at 12:30; Stop 11/25/16 at 14:29; Status DC Lidocaine/Sodium Bicarbonate 20 ml 20 ml STK-MED ONCE IJ ; Start 11/25/16 at 12: 35; Stop 11/25/16 at 12:36; Status DC Heparin Sodium/ Sodium Chloride 500 ml @ As Directed STK-MED ONCE .ROUTE ; Start 11/25/16 at 12:35; Stop 11/25/16 at 12:36; Status DC Lidocaine/Sodium Bicarbonate (Buffered Lidocaine 1%) 3 ml 1X ONCE IJ Last administered on 11/25/16 13:15; Start 11/25/16 at 13:15; Stop 11/25/16 at 13:16 ; Status DC Heparin Sodium/ Sodium Chloride 60 unit 1X ONCE IV Last administered on 13:16; Start 11/25/16 at 13:15; Stop 11/25/16 at 13:16; Status DC Amiodarone HCl (Cordarone) 450 mg STK-MED ONCE .ROUTE ; Start 11/25/16 at 12:00 ; Stop 11/25/16 at 14:56; Status DC Epinephrine HCl (Adrenalin) 30 mg STK-MED ONCE .ROUTE ; Start 11/25/16 at 12:00 ; Stop 11/25/16 at 14:56; Status DC Atropine Sulfate 1.5 mg STK-MED ONCE .ROUTE ; Start 11/25/16 at 12:00; Stop at 14:56; Status DC Epinephrine HCl 4 mg STK-MED ONCE .ROUTE ; Start 11/25/16 at 12:00; Stop at 14:56; Status DC Sodium Bicarbonate 150 meq 150 meq STK-MED ONCE .ROUTE ; Start 11/25/16 at 12:00 ; Stop 11/25/16 at 14:56; Status DC Midazolam HCl (Versed 100mg/ 100ml Premix) 100 ml @ 0 mls/hr CONT PRN IV SEE I/ O RECORD; Start 11/25/16 at 23:30; Stop 11/26/16 at 17:49; Status DC Insulin Aspart (Novolog) 0-7 UNITS TIDWMEALS SQ Last administered on 11/27/16 19:43; Start 11/26/16 at 08:00; Stop 11/28/16 at 01:01; Status DC Dextrose 12.5 gm PRN Q15MIN PRN IV SEE COMMENTS; Start 11/25/16 at 23:30 Acetaminophen 650 mg 650 mg PRN Q6HRS PRN [place] MILD PAIN / TEMP Last administered on 11/28/16 04:19; Start 11/25/16 at 23:30 Potassium Chloride 50 ml @ 50 mls/hr Q1H IV Last administered on 11/26/16 11: 23; Start 11/26/16 at 10:30; Stop 11/26/16 at 12:29; Status DC Sodium Bicarbonate/ Sterile Water 1,100 ml @ 100 mls/hr Q11H IV Last administered on 11/27/16 00:56; Start 11/26/16 at 13:00; Stop 11/27/16 at 11:25 ; Status DC Info 1 each 1 each PRN DAILY PRN MC SEE COMMENTS Last administered on 10:39; Start 11/26/16 at 12:45 Calcium Chloride/ Sodium Chloride (Iv Sodium Chloride 0.9% 100ml) 120 ml @ 240 mls/hr 1X ONCE IV Last administered on 11/26/16 13:22; Start 11/26/16 at 13: 15; Stop 11/26/16 at 13:44; Status DC Ondansetron HCl 4 mg 4 mg PRN Q6HRS PRN IV NAUSEA/VOMITING Last administered on 11/26/16 13:56; Start 11/26/16 at 13:45 Sodium Chloride/ Potassium Chloride/ Magnesium Sulfate/ Calcium Gluconate/ Multivitamins/ Chromium/Copper/ Manganese/Seleni/ Zn/Total Parenteral Nutrition/ Amino Acids/Dextrose/ Fat Emulsion Intravenous (Sodium Chloride/ Infuvite Adult / Multitrace-5 Conc/ Tpn - Tpn Fluid/ Trophami... 1,594.468 ml @ 66.436 m... TPN CONT IV Last administered on 11/26/16 21:27; Start 11/26/16 at 22:00; Stop 11/27/16 at 21:59; Status DC Albuterol Sulfate 2.5 mg 2.5 mg 1X ONCE NEB Last administered on 11/27/16 07: 21; Start 11/27/16 at 06:45; Stop 11/27/16 at 06:46; Status DC Magnesium Sulfate/ Dextrose 50 ml @ 25 mls/hr PRN DAILY PRN IV for Mag < 1.7 on am labs; Start 11/27/16 at 08:45 Sodium Chloride 90 meq/Potassium Chloride 50 meq/ Magnesium Sulfate 10 meq/ Calcium Gluconate 10 meq/ Multivitamins 10 ml/Chromium/ Copper/Manganese/ Seleni /Zn 1 ml/ Total Parenteral Nutrition/Amino Acids/Dextrose/ Fat Emulsion Intravenous 1,594.468 ml @ 66.436 m... TPN CONT IV ; Start 11/27/16 at 22:00; Stop 11/28/16 at 21:59; Status Cancel Potassium Chloride/ Magnesium Sulfate/ Calcium Gluconate/ Multivitamins/ Chromium/Copper/ Manganese/Seleni/ Zn/Total Parenteral Nutrition/Amino Acids/ Dextrose/ Fat Emulsion Intravenous (Infuvite Adult/ Multitrace-5 Conc/ Tpn - Tpn Fluid/ Trophamine/ Dextrose 70%-Water Iv So... 1,512 ml @ 63 mls/hr TPN CONT IV Last administered on 11/27/16 21:22; Start 11/27/16 at 22:00; Stop at 21:59 Nitroglycerin 0.4 mg 0.4 mg STK-MED ONCE SL Last administered on 11/27/16 11: 26; Start 11/27/16 at 11:16; Stop 11/27/16 at 11:17; Status DC Albumin Human (Albuminar) 100 ml @ 100 mls/hr TID IV Last administered on 11/27 21:12; Start 11/27/16 at 12:00; Stop 11/29/16 at 09:59 Sodium Bicarbonate 50 meq 1X ONCE IV Last administered on 11/27/16 13:24; Start 11/27/16 at 12:45; Stop 11/27/16 at 12:46; Status DC Hydralazine HCl (Apresoline) 10 mg PRN Q4HRS PRN IVP ELEVATED BP, SEE COMMENTS Last administered on 11/28/16 00:40; Start 11/27/16 at 12:45 Metoprolol Tartrate (Lopressor) 5 mg Q6HRS IVP Last administered on 11/27/16 15:40; Start 11/27/16 at 15:30; Stop 11/27/16 at 19:11; Status DC Metoprolol Tartrate 5 mg 5 mg Q6HRS@04,10,16,22 IVP Last administered on 05:06; Start 11/27/16 at 22:00 Nicardipine HCl/ Sodium Chloride (Cardene/Iv Sodium Chloride 0.9% 250ml) 270 ml @ 0 mls/hr CONT PRN IV SEE I/O RECORD Last administered on 11/28/16 01:13; Start 11/27/16 at 20:45 Vancomycin HCl 1 each 1 each PRN DAILY PRN MC SEE COMMENTS Last administered on 11/27/16 21:38; Start 11/27/16 at 22:00; Stop 11/28/16 at 08:30; Status DC Vancomycin HCl 2 gm/Sodium Chloride 500 ml @ 250 mls/hr 1X ONCE IV Last administered on 11/27/16 22:57; Start 11/27/16 at 22:00; Stop 11/27/16 at 23:59 ; Status DC Vancomycin HCl/ Sodium Chloride (Iv Sodium Chloride 0.9% 500ml Bag) 500 ml @ 250 mls/hr Q24H IV ; Start 11/28/16 at 22:00; Stop 11/28/16 at 22:00; Status DC Vancomycin HCl 1 each 1X ONCE MC ; Start 11/29/16 at 21:30; Stop 11/29/16 at 21 :30; Status DC Insulin Aspart (Novolog) 0-7 UNITS Q6HRS SQ Last administered on 11/28/16 05: 45; Start 11/28/16 at 01:00 Linezolid 600 mg 600 mg BID PO ; Start 11/28/16 at 09:00 Pantoprazole Sodium/Sodium Chloride (Protonix Iv/Iv Sodium Chloride 0.9% 100ml) 100 ml @ 10 mls/hr Q10H PRN IV .; Start 11/28/16 at 10:00 Ipratropium [place] (Atrovent) 0.5 mg RTQID NEB ; Start 11/28/16 at 12:00 Budesonide (Pulmicort) 0.5 mg RTBID NEB ; Start 11/28/16 at 20:00 Vitals/I & O Vital Sign - Last 24 Hours 11/27/16 11/27/16 11/27/16 11/27/16 10:00 11:00 11:26 12:00 Pulse 95 96 106 Resp 22 18 B/P 156/47 190/34 201/50 Pulse Ox 91 96 O2 Delivery Nasal Cannula Simple Mask Nasal Cannula O2 Flow Rate 6.0 6.0 11/27/16 11/27/16 11/27/16 11/27/16 12:00 13:00 14:00 15:00 Temp 99.9 99.9 Pulse 96 96 95 106 Resp 16 28 B/P 151/47 156/45 189/4 187/50 Pulse Ox 95 96 95 O2 Delivery Simple Mask Simple Mask Simple Mask 11/27/16 11/27/16 11/27/16 11/27/16 15:40 16:00 17:00 18:00 Pulse 91 98 94 94 Resp 34 30 B/P 189/54 192/46 175/31 178/45 Pulse Ox 93 91 O2 Delivery Simple Mask Simple Mask Simple Mask 11/27/16 11/27/16 11/27/16 11/27/16 19:15 19:30 19:52 20:00 Temp 100.2 100.2 Pulse 106 96 96 106 Resp B/P 192/54 173/44 173/44 197/41 Pulse Ox 93 94 90 O2 Delivery Simple Mask Simple Mask Simple Mask 11/27/16 11/27/16 11/27/16 11/27/16 20:00 20:30 21:00 21:10 Temp 99.6 99.6 Pulse 108 102 108 Resp 24 B/P 221/39 214/40 213/66 Pulse Ox 93 94 94 O2 Delivery Mask Simple Mask Simple Mask Simple Mask O2 Flow Rate 10.0 10.0 10.0 11/27/16 11/27/16 11/27/16 11/27/16 21:30 21:45 21:49 22:00 Pulse 108 102 85 76 Resp 16 B/P 201/56 158/45 158/45 146/27 Pulse Ox 89 86 92 O2 Delivery BiPAP/CPAP BiPAP/CPAP BiPAP/CPAP 11/27/16 11/27/16 11/27/16 11/27/16 22:01 22:15 22:30 22:45 Pulse 80 88 82 Resp 18 18 B/P 152/38 161/38 170/39 Pulse Ox 90 95 96 96 O2 Delivery BiPAP/CPAP BiPAP/CPAP BiPAP/CPAP BiPAP/CPAP 11/27/16 11/27/16 11/27/16 11/27/16 23:00 23:15 23:30 23:45 Pulse 87 87 88 90 Resp 18 18 18 18 B/P 183/43 157/44 177/46 172/42 Pulse Ox 97 96 96 96 O2 Delivery BiPAP/CPAP BiPAP/CPAP BiPAP/CPAP BiPAP/CPAP 11/27/16 11/27/16 11/27/16 11/28/16 23:56 23:59 23:59 00:30 Temp 100.7 100.7 Pulse 92 92 Resp 20 20 B/P 158/49 160/39 Pulse Ox 96 94 97 O2 Delivery BiPAP/CPAP Bi-pap BiPAP/CPAP BiPAP/CPAP 11/28/16 11/28/16 11/28/16 11/28/16 00:40 00:45 01:00 01:30 Pulse 92 106 102 100 Resp B/P 160/39 165/42 148/35 149/34 Pulse Ox 94 96 96 O2 Delivery BiPAP/CPAP BiPAP/CPAP BiPAP/CPAP 11/28/16 11/28/16 11/28/16 11/28/16 01:45 02:00 02:30 03:00 Pulse 99 102 103 106 Resp 16 B/P 128/40 149/45 159/47 155/45 Pulse Ox 97 99 98 99 O2 Delivery BiPAP/CPAP BiPAP/CPAP BiPAP/CPAP BiPAP/CPAP 11/28/16 11/28/16 11/28/16 11/28/16 03:24 03:30 04:00 04:00 Temp 102.4 102.4 Pulse 104 107 Resp 12 22 B/P 158/43 138/51 Pulse Ox 100 100 100 O2 Delivery BiPAP/CPAP BiPAP/CPAP Bi-pap BiPAP/CPAP 11/28/16 11/28/16 11/28/16 11/28/16 04:30 05:00 05:06 05:14 Temp 101.3 101.3 Pulse 101 102 100 Resp 20 20 B/P 149/38 140/44 140/44 Pulse Ox 94 97 98 O2 Delivery BiPAP/CPAP BiPAP/CPAP BiPAP/CPAP 3/24/17 3/24/17 3/24/17 3/24/17 05:15 05:30 05:45 06:00 Pulse 92 86 90 86 Resp 18 20 18 B/P 116/41 126/40 111/43 137/45 Pulse Ox 98 98 99 99 O2 Delivery BiPAP/CPAP BiPAP/CPAP BiPAP/CPAP BiPAP/CPAP 11/28/16 11/28/16 11/28/16 11/28/16 06:15 06:30 07:00 07:04 Pulse 96 93 93 Resp 18 B/P 142/44 142/41 140/46 Pulse Ox 99 99 100 100 O2 Delivery BiPAP/CPAP BiPAP/CPAP BiPAP/CPAP BiPAP/CPAP 11/28/16 11/28/16 11/28/16 07:48 08:00 08:30 Temp 101.0 100.5 101.5 101.0 100.5 101.5 Pulse 90 87 88 Resp 16 17 20 B/P 145/40 151/36 137/46 Intake and Output 11/27/16 11/27/16 11/28/16 15:00 23:00 07:00 Intake Total 100 ml 2592 ml 2073 ml Output Total 550 ml 1125 ml 415 ml Balance -450 ml 1467 ml 1658 ml EVELYNE ANTONIO MD Nov 28, 2016 09:55
[2016-11-28] MEDS: TPN PER PHARMACY MC PRN ×4 (09:57→14:38)
[2016-11-28] MEDS: ANTI-COAG MONITOR BY PHARMACY. MC PRN (10:03)
[2016-11-28 10:36] LABS: RED BLOOD COUNT 1.39 x10^6/uL (4.30-5.70); RED CELL DISTRIBUTION WIDTH 13.7 % (11.5-14.5)
[2016-11-28 10:49] LABS: HEMATOCRIT 12.3 % (39.0-53.0); HEMOGLOBIN 4.2 g/dL (13.0-17.5)
--- NOTE | 2016-11-28 10:50 | PDOC ---
WILL STARK [facility] [employer] 11/28/16 1050: SURGICAL PROGRESS NOTE Subjective bipap, sleeping, will arouse when stimulated-but drowsy denies abdominal pain Vital Signs Vital Signs Date Time Temp Pulse Resp B/P Pulse Ox O2 Delivery O2 Flow Rate FiO2 11/28/16 09:30 98 BiPAP/CPAP 11/28/16 08:30 101.5 88 20 137/46 101.5 11/27/16 21:10 10.0 I&O Intake and Output 11/28/16 07:00 Intake Total 4765 ml Output Total 2090 ml Balance 2675 ml Intake Oral 0 ml IV Total 4050 ml Blood Product IV Normal Saline Flush 715 ml Output Urine Total 2090 ml General: No acute distress Abdomen: Soft, No tenderness Labs Laboratory Tests Test 11/26/16 11:00 11/26/16 12:01 11/26/16 12:40 11/26/16 17:00 Heparin Anti-Xa Act, Unfractionated 0.27IU/mL (0.30-0.70) 0.50IU/mL (0.30-0.70) Glucose (Fingerstick) 251mg/dL (70-99) O2 Saturation 94% (92-99) Arterial Blood pH 7.41 (7.35-7.45) Arterial Blood pCO2 at Patient Temp 32mmHg (35-46) Arterial Blood pO2 at Patient Temp 80mmHg (65-108) Arterial Blood HCO3 20mmol/L (21-28) Arterial Blood Base Excess -4mmol/L (-3-3) FiO2 40 Test 11/26/16 17:09 11/26/16 23:30 11/27/16 06:00 11/27/16 12:25 Glucose (Fingerstick) 148mg/dL (70-99) Heparin Anti-Xa Act, Unfractionated 0.36IU/mL (0.30-0.70) 0.71IU/mL (0.30-0.70) Sodium Level 141mmol/L (136-145) Potassium Level 3.9mmol/L (3.5-5.1) Chloride Level 105mmol/L (98-107) Carbon Dioxide Level 27mmol/L (21-32) Anion Gap 9 (6-14) Blood Urea Nitrogen 42mg/dL (8-26) Creatinine 2.6mg/dL (0.7-1.3) Estimated GFR (Cockcroft-Gault) 24.5 Glucose Level 224mg/dL (70-99) Calcium Level 7.5mg/dL (8.5-10.1) Phosphorus Level 3.9mg/dL (2.6-4.7) Magnesium Level 2.3mg/dL (1.8-2.4) Creatine Kinase 774U/L (39-308) O2 Saturation 88% (92-99) Arterial Blood pH 7.47 (7.35-7.45) Arterial Blood pCO2 at Patient Temp 34mmHg (35-46) Arterial Blood pO2 at Patient Temp 58mmHg (65-108) Arterial Blood HCO3 24mmol/L (21-28) Arterial Blood Base Excess 1mmol/L (-3-3) FiO2 60% Test 11/27/16 19:34 11/27/16 20:35 11/28/16 00:58 11/28/16 05:42 Glucose (Fingerstick) 211mg/dL (70-99) 228mg/dL (70-99) 221mg/dL (70-99) O2 Saturation 93% (92-99) Arterial Blood pH 7.55 (7.35-7.45) Arterial Blood pH (Temp corrected) 7.54 Arterial Blood pCO2 at Patient Temp 31mmHg (35-46) Arterial Blood pCO2 (Temp correct) 31mmHg Arterial Blood pO2 at Patient Temp 63mmHg (65-108) Arterial Blood pO2 (Temp corrected) 65mmHg Arterial Blood HCO3 26mmol/L (21-28) Arterial Blood Base Excess 3mmol/L (-3-3) FiO2 60 Test 11/28/16 06:05 11/28/16 08:00 White Blood Count 11.7x10^3/uL (4.0-11.0) Red Blood Count 1.16x10^6/uL (4.30-5.70) Hemoglobin 3.5g/dL (13.0-17.5) Hematocrit 10.5% (39.0-53.0) Mean Corpuscular Volume 90fL (79-100) Mean Corpuscular Hemoglobin 30pg (25-35) Mean Corpuscular Hemoglobin Concent 33g/dL (31-37) Red Cell Distribution Width 14.2% (11.5-14.5) Platelet Count 103x10^3/uL (140-400) Heparin Anti-Xa Act, Unfractionated > 1.10IU/mL (0.30-0.70) Sodium Level 141mmol/L (136-145) Potassium Level 3.9mmol/L (3.5-5.1) Chloride Level 106mmol/L (98-107) Carbon Dioxide Level 25mmol/L (21-32) Anion Gap 10 (6-14) Blood Urea Nitrogen 43mg/dL (8-26) Creatinine 2.6mg/dL (0.7-1.3) Estimated GFR (Cockcroft-Gault) 24.5 Glucose Level 228mg/dL (70-99) Calcium Level 7.6mg/dL (8.5-10.1) Phosphorus Level 3.1mg/dL (2.6-4.7) Magnesium Level 2.3mg/dL (1.8-2.4) Creatine Kinase 381U/L (39-308) Albumin 2.2g/dL (3.4-5.0) O2 Saturation 95% (92-99) Arterial Blood pH 7.53 (7.35-7.45) Arterial Blood pCO2 at Patient Temp 27mmHg (35-46) Arterial Blood pO2 at Patient Temp 85mmHg (65-108) Arterial Blood HCO3 22mmol/L (21-28) Arterial Blood Base Excess -1mmol/L (-3-3) FiO2 50 Laboratory Tests Test 11/27/16 12:25 11/27/16 19:34 11/27/16 20:35 11/28/16 00:58 O2 Saturation 88% (92-99) 93% (92-99) Arterial Blood pH 7.47 (7.35-7.45) 7.55 (7.35-7.45) Arterial Blood pCO2 at Patient Temp 34mmHg (35-46) 31mmHg (35-46) Arterial Blood pO2 at Patient Temp 58mmHg (65-108) 63mmHg (65-108) Arterial Blood HCO3 24mmol/L (21-28) 26mmol/L (21-28) Arterial Blood Base Excess 1mmol/L (-3-3) 3mmol/L (-3-3) FiO2 60% 60 Glucose (Fingerstick) 211mg/dL (70-99) 228mg/dL (70-99) Arterial Blood pH (Temp corrected) 7.54 Arterial Blood pCO2 (Temp correct) 31mmHg Arterial Blood pO2 (Temp corrected) 65mmHg Test 11/28/16 05:42 11/28/16 06:05 11/28/16 08:00 Glucose (Fingerstick) 221mg/dL (70-99) White Blood Count 11.7x10^3/uL (4.0-11.0) Red Blood Count 1.16x10^6/uL (4.30-5.70) Hemoglobin 3.5g/dL (13.0-17.5) Hematocrit 10.5% (39.0-53.0) Mean Corpuscular Volume 90fL (79-100) Mean Corpuscular Hemoglobin 30pg (25-35) Mean Corpuscular Hemoglobin Concent 33g/dL (31-37) Red Cell Distribution Width 14.2% (11.5-14.5) Platelet Count 103x10^3/uL (140-400) Heparin Anti-Xa Act, Unfractionated > 1.10IU/mL (0.30-0.70) Sodium Level 141mmol/L (136-145) Potassium Level 3.9mmol/L (3.5-5.1) Chloride Level 106mmol/L (98-107) Carbon Dioxide Level 25mmol/L (21-32) Anion Gap 10 (6-14) Blood Urea Nitrogen 43mg/dL (8-26) Creatinine 2.6mg/dL (0.7-1.3) Estimated GFR (Cockcroft-Gault) 24.5 Glucose Level 228mg/dL (70-99) Calcium Level 7.6mg/dL (8.5-10.1) Phosphorus Level 3.1mg/dL (2.6-4.7) Magnesium Level 2.3mg/dL (1.8-2.4) Creatine Kinase 381U/L (39-308) Albumin 2.2g/dL (3.4-5.0) O2 Saturation 95% (92-99) Arterial Blood pH 7.53 (7.35-7.45) Arterial Blood pCO2 at Patient Temp 27mmHg (35-46) Arterial Blood pO2 at Patient Temp 85mmHg (65-108) Arterial Blood HCO3 22mmol/L (21-28) Arterial Blood Base Excess -1mmol/L (-3-3) FiO2 50 Problem List Problems Medical Problems: (1) Cardiac arrest Status: Acute Assessment/Plan significant drop in hgb 3.5, receiving blood now will follow Problems: MALCOLM RAYMOND MD 11/28/16 1242: SURGICAL PROGRESS NOTE Assessment/Plan Pt seen and examined. Agree with Ms. Stark's note Pt awake on bipap abd soft, NTTP, ecchymosis bilateral flank agree with CT to evaluate transfuse PRN d/w pt's family Problems: WILL STARK APRN Nov 28, 2016 10:50 MALCOLM RAYMOND MD Nov 28, 2016 12:42
--- NOTE | 2016-11-28 11:11 | PDOC ---
Objective: Objective: Per RN - on BiPAP, Hgb drop, no obvious bleeding. Vital Signs: Vital Signs Date Time Temp Pulse Resp B/P Pulse Ox O2 Delivery O2 Flow Rate FiO2 11/28/16 09:30 98 BiPAP/CPAP 11/28/16 08:30 101.5 88 20 137/46 101.5 11/27/16 21:10 10.0 Labs: Laboratory Tests Test 11/27/16 12:25 11/27/16 19:34 11/27/16 20:35 11/28/16 00:58 O2 Saturation 88% 93% Arterial Blood pH 7.47 7.55 Arterial Blood pCO2 at Patient Temp 34mmHg 31mmHg Arterial Blood pO2 at Patient Temp 58mmHg 63mmHg Arterial Blood HCO3 24mmol/L 26mmol/L Arterial Blood Base Excess 1mmol/L 3mmol/L FiO2 60% 60 Glucose (Fingerstick) 211mg/dL 228mg/dL Arterial Blood pH (Temp corrected) 7.54 Arterial Blood pCO2 (Temp correct) 31mmHg Arterial Blood pO2 (Temp corrected) 65mmHg Test 11/28/16 05:42 11/28/16 06:05 11/28/16 08:00 11/28/16 09:50 Glucose (Fingerstick) 221mg/dL White Blood Count 11.7x10^3/uL 11.0x10^3/uL Red Blood Count 1.16x10^6/uL 1.39x10^6/uL Hemoglobin 3.5g/dL 4.2g/dL Hematocrit 10.5% 12.3% Mean Corpuscular Volume 90fL 89fL Mean Corpuscular Hemoglobin 30pg 31pg Mean Corpuscular Hemoglobin Concent 33g/dL 34g/dL Red Cell Distribution Width 14.2% 13.7% Platelet Count 103x10^3/uL 109x10^3/uL Heparin Anti-Xa Act, Unfractionated > 1.10IU/mL Sodium Level 141mmol/L Potassium Level 3.9mmol/L Chloride Level 106mmol/L Carbon Dioxide Level 25mmol/L Anion Gap 10 Blood Urea Nitrogen 43mg/dL Creatinine 2.6mg/dL Estimated GFR (Cockcroft-Gault) 24.5 Glucose Level 228mg/dL Calcium Level 7.6mg/dL Phosphorus Level 3.1mg/dL Magnesium Level 2.3mg/dL Creatine Kinase 381U/L Albumin 2.2g/dL O2 Saturation 95% Arterial Blood pH 7.53 Arterial Blood pCO2 at Patient Temp 27mmHg Arterial Blood pO2 at Patient Temp 85mmHg Arterial Blood HCO3 22mmol/L Arterial Blood Base Excess -1mmol/L FiO2 50 PE: GEN: NAD LUNGS: BiPAP HEART: S1S2 ABD: NABS, soft NEURO/PSYCH: drowsy on BiPAP A/P: Anemia -significant drop in Hgb as above, no obvious source Cardiac arrest, resp failure, HAMILTON, possible ischemic bowel/diarrhea -extubated on BiPAP -on TPN, Pepcid Fever -- CT chest/A/P r/o retroperitoneal bleed. YAMEL CUEVAS Nov 28, 2016 11:11
[2016-11-28] MEDS: PANTOPRAZOLE SODIUM IV 80 MG in IV NORMAL SALINE 100ML 100 ML IV PRN ×2 (11:17→21:57)
--- NOTE | 2016-11-28 11:20 | PDOC ---
CARMELO POSADAS CARE PROVIDER 11/28/16 1120: CARDIO Progress Notes Date and Time Date of Service 11/28/16 Time of Evaluation 1030 Subjective Subjective: No Chest Pain, Other (drowsy, dyspneic; requiring Bipap) Vitals Vitals Vital Signs Date Time Temp Pulse Resp B/P Pulse Ox O2 Delivery O2 Flow Rate FiO2 11/28/16 09:30 98 BiPAP/CPAP 11/28/16 08:30 101.5 88 20 137/46 101.5 11/27/16 21:10 10.0 Weight Weight [ ] Input and Output Intake and Output Intake and Output 11/28/16 07:00 Intake Total 4765 ml Output Total 2090 ml Balance 2675 ml Intake Oral 0 ml IV Total 4050 ml Blood Product IV Normal Saline Flush 715 ml Output Urine Total 2090 ml Laboratory Labs Laboratory Tests Test 11/27/16 12:25 11/27/16 19:34 11/27/16 20:35 11/28/16 00:58 O2 Saturation 88% (92-99) 93% (92-99) Arterial Blood pH 7.47 (7.35-7.45) 7.55 (7.35-7.45) Arterial Blood pCO2 at Patient Temp 34mmHg (35-46) 31mmHg (35-46) Arterial Blood pO2 at Patient Temp 58mmHg (65-108) 63mmHg (65-108) Arterial Blood HCO3 24mmol/L (21-28) 26mmol/L (21-28) Arterial Blood Base Excess 1mmol/L (-3-3) 3mmol/L (-3-3) FiO2 60% 60 Glucose (Fingerstick) 211mg/dL (70-99) 228mg/dL (70-99) Arterial Blood pH (Temp corrected) 7.54 Arterial Blood pCO2 (Temp correct) 31mmHg Arterial Blood pO2 (Temp corrected) 65mmHg Test 11/28/16 05:42 11/28/16 06:05 11/28/16 08:00 11/28/16 09:50 Glucose (Fingerstick) 221mg/dL (70-99) White Blood Count 11.7x10^3/uL (4.0-11.0) 11.0x10^3/uL (4.0-11.0) Red Blood Count 1.16x10^6/uL (4.30-5.70) 1.39x10^6/uL (4.30-5.70) Hemoglobin 3.5g/dL (13.0-17.5) 4.2g/dL (13.0-17.5) Hematocrit 10.5% (39.0-53.0) 12.3% (39.0-53.0) Mean Corpuscular Volume 90fL (79-100) 89fL (79-100) Mean Corpuscular Hemoglobin 30pg (25-35) 31pg (25-35) Mean Corpuscular Hemoglobin Concent 33g/dL (31-37) 34g/dL (31-37) Red Cell Distribution Width 14.2% (11.5-14.5) 13.7% (11.5-14.5) Platelet Count 103x10^3/uL (140-400) 109x10^3/uL (140-400) Heparin Anti-Xa Act, Unfractionated > 1.10IU/mL (0.30-0.70) Sodium Level 141mmol/L (136-145) Potassium Level 3.9mmol/L (3.5-5.1) Chloride Level 106mmol/L (98-107) Carbon Dioxide Level 25mmol/L (21-32) Anion Gap 10 (6-14) Blood Urea Nitrogen 43mg/dL (8-26) Creatinine 2.6mg/dL (0.7-1.3) Estimated GFR (Cockcroft-Gault) 24.5 Glucose Level 228mg/dL (70-99) Calcium Level 7.6mg/dL (8.5-10.1) Phosphorus Level 3.1mg/dL (2.6-4.7) Magnesium Level 2.3mg/dL (1.8-2.4) Creatine Kinase 381U/L (39-308) Albumin 2.2g/dL (3.4-5.0) O2 Saturation 95% (92-99) Arterial Blood pH 7.53 (7.35-7.45) Arterial Blood pCO2 at Patient Temp 27mmHg (35-46) Arterial Blood pO2 at Patient Temp 85mmHg (65-108) Arterial Blood HCO3 22mmol/L (21-28) Arterial Blood Base Excess -1mmol/L (-3-3) FiO2 50 Microbiology Micro Microbiology 11/24/16 Blood Culture - Preliminary, Resulted NO GROWTH AFTER 4 DAYS 11/24/16 Stool Culture - Final, Resulted 11/24/16 Stool Culture Result 1 (ROSIE) - Final, Resulted 11/24/16 Campylobacter Antigen Assay - Preliminary, Resulted 11/24/16 Campylobactor Result 1 - Preliminary, Resulted 11/24/16 Shiga Toxin Test - Final, Resulted 11/25/16 Urine Culture - Final, Complete 11/25/16 Urine Culture Result 1 (ROSIE) - Final, Complete Physical Exam HEENT: Neck Supple W Full Motion Chest: Symmetric LUNGS: Clear to Auscultation, Other (bibasilar crackles) Heart: S1S2, RRR, no murmurs, other (tele SR- ST) Abdomen: Soft N/T, Other (diffuse ecchymosis of bilateral groin area) Extremities: 2+ Dorsalis Pedis, Other (anasarca) Neurology: alert, oriented (to person and place), follow commands, other ( fatigued) Assessment Assessment 1. S/p cardiac arrest 2. Respiratory failure; extubated 11/26 3. Bilateral DVT 4. ? PE- echo with RV dilation 5. Systolic HF; cardiomyopathy, new - EF 35-40% 6. Leukocytosis, febrile 7. Diabetes 8. HAMILTON; CR 2.6 9. Hypertension 10. Anemia; hgb 3.5 ? blood loss Recommendations Obtain CTA of chest to r/o PE If negative; would recommend discontinuing heparin and placing IVC filter given acute anemia and bilateral DVT Transfuse as warranted. CXR presently stable- monitor volume status closely; may need lasix. ? Need for temporary HD- d/w nephrology Continue supportive care Critically ill Plan of care d/w patient and family FARIDA ALDRICH MD 11/28/16 9095: CARDIO Progress Notes Plan Plan Patient seen and personally examined. Plan of care discussed extensively with family and respective strep. Agree with above note with the following comments Overnight patient was found to have significant anemia with a hemoglobin of 3.5 which was confirmed on repeat testing. He is currently being transfused 2 units with likely 4 units total PRBCs. He was somnolent this morning but is more alert later this evening. He denies chest pain but is otherwise fairly fatigued. Discussed care with pulmonary and nephrology teams. At this present time given his profound life-threatening anemia we will stop heparinization and await a VQ scan for further evaluation of pulmonary emboli. His noncontrast CT of the chest abdomen and pelvis was reviewed. No obvious gross infectious process such as abscess noted to account for his intermittent fevers and no obvious evidence of a large collection of blood. I discussed the risks and benefits of cardiac catheterization with the patient' s family. In light of the fact that he has severe renal insufficiency at this time along with severe anemia a cardiac catheterization would not be advised given the high risk of bleeding. Continue supportive care with diuresis as tolerated and treatment of his pulmonary status with antibiotics. Appreciate nephrology and pulmonary input. If overnight his hemoglobin stabilizes and he does not have any significant recurrent anemia and if he is found to have evidence of pulmonary emboli on VQ scan could then reinitiate heparin drip otherwise may consider an IVC filter. Nonetheless, we will also likely repeat his lower extremity duplex venous studies. CARMELO POSADAS APRN Nov 28, 2016 11:20 FARIDA ALDRICH MD Nov 28, 2016 18:35
[2016-11-28] MEDS: ASPIRIN 300 MG SUPP.RECT PR SCH (11:26)
[2016-11-28] MEDS: ALBUMIN HUMAN 25% 100 ML IV SCH ×3 (11:27→21:17)
[2016-11-28] MEDS: IPRATROPIUM BROMIDE 0.5 MG/2.5 ML NEBU. NEB SCH ×3 (12:00→20:20)
--- NOTE | 2016-11-28 12:09 | PDOC ---
SUBJECTIVE ROS HAMILTON/ ATN now on BiPAP, has been having fevers unable to get ROS OBJECTIVE Vital Signs Vital Signs Date Time Temp Pulse Resp B/P Pulse Ox O2 Delivery O2 Flow Rate FiO2 11/28/16 11:28 80 131/38 11/28/16 09:30 98 BiPAP/CPAP 11/28/16 08:30 101.5 20 101.5 11/27/16 21:10 10.0 I & 0 Intake and Output 11/28/16 07:00 Intake Total 4765 ml Output Total 2090 ml Balance 2675 ml Intake Oral 0 ml IV Total 4050 ml Blood Product IV Normal Saline Flush 715 ml Output Urine Total 2090 ml PHYSICAL EXAM Physical Exam General Appearance: remains on the BiPAP In no Distress Eyes: VIsion Unchanged Conjunctiva Normal EN: No EN Drainage Mucous Memb. moist Neck: no JVD min JVP Supple no Thyromegaly CVS: S1 S2 no audible Murmur No Gallop No Rub no Edema Resp: no Rales no Rhonchi no Acc. Muscle use GI: BS +ve NO Bruit Non Tender Non Distended : no CVA tenderness; no Suprapubic Tenderness SKIN: no Rashes Breast Exam deferred Mu.Sk: Adequate passive ROM no Muscle Atrophy Heme: Unable to palpate Obvious LAD no palp Splenomegaly NEURO: currently does not Follow Commands Psych: Unable to assess while on biPAP Assessment & Plan HAMILTON: cannot R/o ATN from [facility]; Creat is stable which is encouraging. However, Needs CT Scan with IVC to eval for Bleed, R/o PE and assess for source of Infection. ? CKD - . Current FLuid and E-lyte status does not necessitate emergent need for Dialysis. Will re-evaluate for Dialysis in am, Edema - Fluid balance is +ve, CXR was -ve for CHF; May need lasix Nutrition - ? TPN vs transition to TF once GI Bleed is ruled out ^CK - better now Fevers - CT Scan with IVC Nutrition - Start TPN Cmyopathy - ? LHC as planned by cardiology h/o DVTs - need evalfor PEs, ? GFF ? Blood Loss anemia - start EPO, Transfuse prn Discussed Plan of Care and prognosis etc. at length with family. 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 need for TIE CARRIER was discussed with pt and Family. Will try VQ first and CT with Oral contrast first per d/w Dr Lim COMMENT/RELEVANT DATA Meds Current Medications Medications (Trade) Dose Ordered Sig/Kika Start Time Stop Time Status Last Admin Dose Admin Acetaminophen (Tylenol) 650 mg PRN Q6HRS PRN 11/25/16 08:45 Acetaminophen 650 mg 650 mg PRN Q6HRS PRN 11/25/16 23:30 11/28/16 04:19 650 MG Albumin Human (Albuminar) 100 ml @ 100 mls/hr TID 11/27/16 12:00 11/29/16 09:59 11/28/16 11:27 100 MLS/HR Albuterol Sulfate 2.5 mg 2.5 mg 1X ONCE 11/27/16 06:45 11/27/16 06:46 DC 11/27/16 07:21 2.5 MG Amiodarone HCl (Cordarone) 450 mg STK-MED ONCE 11/25/16 12:00 11/25/16 14:56 DC Aspirin (Aspirin) 300 mg DAILY 11/24/16 09:00 11/28/16 11:26 300 MG Atropine Sulfate 1.5 mg STK-MED ONCE 11/25/16 12:00 11/25/16 14:56 DC Budesonide (Pulmicort) 0.5 mg RTBID 11/28/16 20:00 Calcium Chloride/ Sodium Chloride (Iv Sodium Chloride 0.9% 100ml) 120 ml @ 240 mls/hr 1X ONCE 11/26/16 13:15 11/26/16 13:44 DC 11/26/16 13:22 240 MLS/HR Chlorhexidine Gluconate 15 ml 15 ml BID 11/25/16 21:00 11/26/16 17:49 DC 11/26/16 08:37 15 ML Dextrose 12.5 gm PRN Q15MIN PRN 11/25/16 23:30 Enoxaparin Sodium (Lovenox Per Pharmacy Prophylaxis Dosing) 1 each PRN DAILY PRN 11/25/16 08:45 UNV Epinephrine HCl 4 mg STK-MED ONCE 11/25/16 12:00 11/25/16 14:56 DC Epinephrine HCl (Adrenalin) 30 mg STK-MED ONCE 11/25/16 12:00 11/25/16 14:56 DC Epinephrine HCl/ Sodium Chloride (Adrenalin/Iv Sodium Chloride 0.9% 250ml) 254 ml @ 0 mls/hr CONT PRN 11/24/16 07:30 11/27/16 08:25 DC 11/26/16 03:05 11.43 MLS/HR Famotidine (Pepcid) 20 mg QHS 11/24/16 21:00 11/28/16 09:46 DC 11/27/16 21:12 20 MG Fentanyl Citrate 30 ml @ 2.5 mls/hr CONT PRN PRN 11/24/16 08:45 11/26/16 17:49 DC 11/26/16 07:40 2.5 MLS/HR Fentanyl Citrate (Fentanyl 2ml Vial) 25 mcg PRN Q30MIN PRN 11/24/16 08:45 Heparin Sodium (Porcine) 3,000 unit PRN Q6HRS PRN 11/24/16 16:45 Heparin Sodium (Porcine) 1500 unit 1,500 unit PRN Q6HRS PRN 11/24/16 16:45 11/26/16 12:08 1,500 UNIT Heparin Sodium (Porcine) 8100 unit 8,100 unit 1X ONCE 11/24/16 17:00 11/24/16 17:01 DC 11/24/16 17:24 8,100 UNIT Heparin Sodium/ Dextrose 500 ml @ 0 mls/hr CONT PRN 11/24/16 16:45 11/28/16 02:06 39.1 MLS/HR Heparin Sodium/ Sodium Chloride 60 unit 1X ONCE 11/25/16 13:15 11/25/16 13:16 DC 11/25/16 13:16 60 UNIT Hydralazine HCl (Apresoline) 10 mg PRN Q4HRS PRN 11/27/16 12:45 11/28/16 00:40 10 MG Info 1 ea 1 ea DAILY PRN 11/26/16 08:45 Info 1 each 1 each PRN DAILY PRN 11/26/16 12:45 11/28/16 10:04 1 EACH Insulin Aspart (Novolog) 0-7 UNITS Q6HRS 11/28/16 01:00 11/28/16 05:45 4 UNITS Insulin Detemir (Levemir) 12 units QHS 11/24/16 21:00 11/24/16 21:00 DC Insulin Human Regular 150 unit/ Sodium Chloride 151.5 ml @ 9.16 mls/hr CONT PRN 11/24/16 09:30 11/27/16 08:25 DC 11/24/16 10:13 3.4 MLS/HR Ipratropium [place] (Atrovent) 0.5 mg RTQID 11/28/16 12:00 Lidocaine/Sodium Bicarbonate (Buffered Lidocaine 1%) 3 ml 1X ONCE 11/25/16 13:15 11/25/16 13:16 DC 11/25/16 13:15 3 ML Linezolid 600 mg 600 mg BID 11/28/16 09:00 Lorazepam 1 mg 1 mg PRN Q30MIN PRN 11/24/16 08:45 11/25/16 12:26 1 MG Magnesium Sulfate/ Dextrose 50 ml @ 25 mls/hr PRN DAILY PRN 11/27/16 08:45 Magnesium Sulfate/ Dextrose (Magnesium Sulfate PREMIX 2GM) 50 ml @ 25 mls/hr 1X ONCE 11/25/16 12:30 11/25/16 14:29 DC 11/25/16 13:28 25 MLS/HR Meperidine HCl (Demerol) 12.5 mg PRN Q30MIN PRN 11/24/16 08:45 11/24/16 22:21 DC 11/24/16 22:21 12.5 MG Metoprolol Tartrate (Lopressor) 5 mg Q6HRS 11/27/16 15:30 11/27/16 19:11 DC 11/27/16 15:40 5 MG Metoprolol Tartrate 5 mg 5 mg Q6HRS@04,10,16,22 11/27/16 22:00 11/28/16 11:28 5 MG Midazolam HCl (Versed 100mg/ 100ml Premix) 100 ml @ 0 mls/hr CONT PRN 11/25/16 23:30 11/26/16 17:49 DC Multi-Ingred Cream/Lotion/Oil/ Oint (Artificial Tears Eye Oint) 1 radha PRN Q6HRS PRN 11/24/16 08:45 Nicardipine HCl/ Sodium Chloride (Cardene/Iv Sodium Chloride 0.9% 250ml) 270 ml @ 0 mls/hr CONT PRN 11/27/16 20:45 11/28/16 01:13 81 MLS/HR Nitroglycerin 0.4 mg 0.4 mg STK-MED ONCE 11/27/16 11:16 11/27/16 11:17 DC 11/27/16 11:26 0.4 MG Ondansetron HCl 4 mg 4 mg PRN Q6HRS PRN 11/26/16 13:45 11/26/16 13:56 4 MG Pantoprazole Sodium/Sodium Chloride (Protonix Iv/Iv Sodium Chloride 0.9% 100ml) 100 ml @ 10 mls/hr Q10H PRN 11/28/16 10:00 11/28/16 11:17 10 MLS/HR Piperacillin Sod/ Tazobactam Sod 3.375 gm/Sodium Chloride 50 ml @ 100 mls/hr Q6HRS 11/25/16 00:00 11/28/16 11:33 100 MLS/HR Piperacillin Sod/ Tazobactam Sod 1 each 1 each PRN DAILY PRN 11/24/16 08:15 11/24/16 13:06 DC Piperacillin Sod/ Tazobactam Sod/ Sodium Chloride (Zosyn/Iv Sodium Chloride 0.9% 100ml) 100 ml @ 200 mls/hr Q6HRS 11/24/16 08:30 11/24/16 11:15 DC 11/24/16 10:10 200 MLS/HR Potassium Chloride/ Magnesium Sulfate/ Calcium Gluconate/ Multivitamins/ Chromium/Copper/ Manganese/Seleni/ Zn/Total Parenteral Nutrition/Amino Acids/Dextrose/ Fat Emulsion Intravenous (Infuvite Adult/ Multitrace-5 Conc/ Tpn - Tpn Fluid/ Trophamine/ Dextrose 70%-Water Iv So... 1,512 ml @ 63 mls/hr TPN CONT 11/27/16 22:00 11/28/16 21:59 11/27/16 21:22 63 MLS/HR Potassium Chloride 50 ml @ 50 mls/hr Q1H 11/26/16 10:30 11/26/16 12:29 DC 11/26/16 11:23 50 MLS/HR Propofol (Diprivan) 100 ml @ 0 mls/hr CONT PRN 11/24/16 08:45 11/26/16 17:49 DC 11/26/16 07:38 5.5 MLS/HR Sodium Bicarbonate 150 meq 150 meq STK-MED ONCE 11/25/16 12:00 11/25/16 14:56 DC Sodium Bicarbonate 50 meq/Sodium Chloride 1,050 ml @ 125 mls/hr Q8H24M 11/24/16 08:30 11/26/16 12:41 DC 11/26/16 11:24 125 MLS/HR Sodium Bicarbonate/ Sterile Water 1,100 ml @ 100 mls/hr Q11H 11/26/16 13:00 11/27/16 11:25 DC 11/27/16 00:56 100 MLS/HR Sodium Bicarbonate 50 meq 1X ONCE 11/27/16 12:45 11/27/16 12:46 DC 11/27/16 13:24 50 MEQ Sodium Chloride (Iv Sodium Chloride 0.9% 1000ml Bag) 1,000 ml @ 1,000 mls/hr 1X ONCE 11/24/16 11:00 11/24/16 11:59 DC 11/24/16 11:00 1,000 MLS/HR Sodium Chloride (Normal Saline Flush) 3 ml QSHIFT PRN 11/24/16 08:45 Sodium Chloride 90 meq/Potassium Chloride 50 meq/ Magnesium Sulfate 10 meq/Calcium Gluconate 10 meq/ Multivitamins 10 ml/Chromium/ Copper/Manganese/ Seleni/Zn 1 ml/ Total Parenteral Nutrition/Amino Acids/Dextrose/ Fat Emulsion Intravenous 1,594.468 ml @ 66.436 m... TPN CONT 11/27/16 22:00 11/28/16 21:59 Cancel Sodium Chloride/ Potassium Chloride/ Magnesium Sulfate/ Calcium Gluconate/ Multivitamins/ Chromium/Copper/ Manganese/Seleni/ Zn/Total Parenteral Nutrition/Amino Acids/Dextrose/ Fat Emulsion Intravenous (Sodium Chloride/ Infuvite Adult/ Multitrace-5 Conc/ Tpn - Tpn Fluid/ Trophami... 1,594.468 ml @ 66.436 m... TPN CONT 11/26/16 22:00 11/27/16 21:59 DC 11/26/16 21:27 66.436 MLS/HR Vancomycin HCl 1 each 1X ONCE 11/29/16 21:30 11/29/16 21:30 DC Vancomycin HCl (Vanco Per Pharmacy) 1 each PRN DAILY PRN 11/25/16 01:00 11/25/16 08:57 DC 11/25/16 03:30 1 EACH Vancomycin HCl 1.5 gm/Sodium Chloride 500 ml @ 250 mls/hr Q24H 11/25/16 10:00 11/25/16 10:00 DC Vancomycin HCl 1 each 1 each PRN DAILY PRN 11/27/16 22:00 11/28/16 08:30 DC 11/27/16 21:38 1 EACH Vancomycin HCl 2 gm/Sodium Chloride 500 ml @ 250 mls/hr 1X ONCE 11/27/16 22:00 11/27/16 23:59 DC 11/27/16 22:57 250 MLS/HR Vancomycin HCl/ Sodium Chloride (Iv Sodium Chloride 0.9% 250ml) 250 ml @ 250 mls/hr 1X ONCE 11/24/16 21:30 11/24/16 22:29 UNV Vancomycin HCl/ Sodium Chloride (Iv Sodium Chloride 0.9% 500ml Bag) 500 ml @ 250 mls/hr Q24H 11/28/16 22:00 11/28/16 22:00 DC Vecuronium [place] (Norcuron Bolus) 9 mg PRN Q30MIN PRN 11/24/16 08:45 11/26/16 17:49 DC 11/24/16 17:38 9 MG Lab Laboratory Tests Test 11/27/16 12:25 11/27/16 19:34 11/27/16 20:35 11/28/16 00:58 O2 Saturation 88% (92-99) 93% (92-99) Arterial Blood pH 7.47 (7.35-7.45) 7.55 (7.35-7.45) Arterial Blood pCO2 at Patient Temp 34mmHg (35-46) 31mmHg (35-46) Arterial Blood pO2 at Patient Temp 58mmHg (65-108) 63mmHg (65-108) Arterial Blood HCO3 24mmol/L (21-28) 26mmol/L (21-28) Arterial Blood Base Excess 1mmol/L (-3-3) 3mmol/L (-3-3) FiO2 60% 60 Glucose (Fingerstick) 211mg/dL (70-99) 228mg/dL (70-99) Arterial Blood pH (Temp corrected) 7.54 Arterial Blood pCO2 (Temp correct) 31mmHg Arterial Blood pO2 (Temp corrected) 65mmHg Test 11/28/16 05:42 11/28/16 06:05 11/28/16 08:00 11/28/16 09:50 Glucose (Fingerstick) 221mg/dL (70-99) White Blood Count 11.7x10^3/uL (4.0-11.0) 11.0x10^3/uL (4.0-11.0) Red Blood Count 1.16x10^6/uL (4.30-5.70) 1.39x10^6/uL (4.30-5.70) Hemoglobin 3.5g/dL (13.0-17.5) 4.2g/dL (13.0-17.5) Hematocrit 10.5% (39.0-53.0) 12.3% (39.0-53.0) Mean Corpuscular Volume 90fL (79-100) 89fL (79-100) Mean Corpuscular Hemoglobin 30pg (25-35) 31pg (25-35) Mean Corpuscular Hemoglobin Concent 33g/dL (31-37) 34g/dL (31-37) Red Cell Distribution Width 14.2% (11.5-14.5) 13.7% (11.5-14.5) Platelet Count 103x10^3/uL (140-400) 109x10^3/uL (140-400) Heparin Anti-Xa Act, Unfractionated > 1.10IU/mL (0.30-0.70) Sodium Level 141mmol/L (136-145) Potassium Level 3.9mmol/L (3.5-5.1) Chloride Level 106mmol/L (98-107) Carbon Dioxide Level 25mmol/L (21-32) Anion Gap 10 (6-14) Blood Urea Nitrogen 43mg/dL (8-26) Creatinine 2.6mg/dL (0.7-1.3) Estimated GFR (Cockcroft-Gault) 24.5 Glucose Level 228mg/dL (70-99) Calcium Level 7.6mg/dL (8.5-10.1) Phosphorus Level 3.1mg/dL (2.6-4.7) Magnesium Level 2.3mg/dL (1.8-2.4) Creatine Kinase 381U/L (39-308) Albumin 2.2g/dL (3.4-5.0) O2 Saturation 95% (92-99) Arterial Blood pH 7.53 (7.35-7.45) Arterial Blood pCO2 at Patient Temp 27mmHg (35-46) Arterial Blood pO2 at Patient Temp 85mmHg (65-108) Arterial Blood HCO3 22mmol/L (21-28) Arterial Blood Base Excess -1mmol/L (-3-3) FiO2 50 ASHLEY DIAMOND MD Nov 28, 2016 12:08
[2016-11-28] MEDS ORDERED: FUROSEMIDE 40 MG/4 ML VIAL IVP ONE (12:15)
[2016-11-28 12:32] LABS: HCO3 ABG 25 mmol/L (21-28); PCO2 ABG 32 mmHg (35-46); PH ABG 7.51 (7.35-7.45); PO2 ABG 94 mmHg (65-108); SAT O2 ABG 96 % (92-99)
[2016-11-28 12:34] LABS: FIO2 ABG 50
--- NOTE | 2016-11-28 14:38 | RAD ---
Indication anemia. Fever. Assess for potential hemorrhage or occult abscess. Axial images of the chest abdomen and pelvis were obtained. No IV or gastrointestinal contrast was administered. No prior CT imaging of the chest, abdomen or pelvis is available. CT chest: Findings There is mild soft tissue swelling suggesting a systemic process such as anasarca. The thoracic aorta appears grossly normal. Coronary artery calcification is noted. Significant hilar or mediastinal adenopathy is not seen. There is a moderate right pleural effusion and a small left. There is some volume loss at the right lung base compatible with atelectasis associated with the pleural fluid or pneumonia. Some additional volume loss is seen in the right upper lobe which may reflect atelectasis or pneumonia CT abdomen and pelvis: Findings. Similar to the chest there is soft tissue swelling suggesting a systemic process such as anasarca. A focal mass lesion is not seen in the liver. The spleen appears unremarkable. There is cholelithiasis. No pancreatic abnormality is seen. There are low-density masses seen associated with the kidneys. The largest mass in the left kidney is somewhat hyperdense. It would be consistent with a hyperdense cyst as referenced on abdominal ultrasound examination 4 days ago. An acute finding in the abdomen is not seen. No acute finding is seen in the pelvis. There is no evidence of retroperitoneal hemorrhage. Pal catheter is noted in the urinary bladder. IMPRESSION: Moderate right pleural effusion and small left. Volume loss at the right lung base and in the right upper lobe is compatible with atelectasis or pneumonia. Soft tissue swelling suggesting a systemic process such as anasarca. No evidence of retroperitoneal hemorrhage. Acute finding in the abdomen or pelvis is not seen. Cholelithiasis. Renal cysts PQRS Compliance Statement: One or more of the following individualized dose reduction techniques were utilized for this examination: 1. Automated exposure control 2. Adjustment of the mA and/or kV according to patient size 3. Use of iterative reconstruction technique
[2016-11-28] MEDS ORDERED: LIDOCAINE 1% / SOD BICARB 8.4% 20 ML VIAL. IJ ONE (14:45)
[2016-11-28 15:24] LABS: INR 1.2 (0.8-1.1); PROTHROMBIN TIME PATIENT 14.2 SEC (11.7-14.0)
--- NOTE | 2016-11-28 16:00 | PDOC ---
BRIEF OPERATIVE NOTE Pre-Op Diagnosis ARF Post-Op Diagnosis same Procedure Performed Temp HD Catheter Surgeon Rik Anesthesia Type: Local Findings 20 cm Shoen with excellent manual flow rates Complications No immediate LALIT AMARO MD Nov 28, 2016 16:00
--- NOTE | 2016-11-28 16:24 | RAD ---
Procedure: Temporary hemodialysis catheter placement at the bedside. Clinical Indication: 71-year-old with acute renal failure Sedation: Local anesthesia only Antibiotics: None Fluoro Time: Not applicable Contrast: None Sterility: All elements of maximal sterile barrier technique including the use of a cap, mask, sterile gown, sterile gloves, large sterile sheet, appropriate hand hygiene, and 2% chlorhexidine for cutaneous antisepsis (or acceptable alternative antiseptic per current guidelines) were followed for this procedure. Consent: The procedure was explained in its entirety to the patient or the patients designated reimbursement representative by a member of the treatment team, including a discussion of the risks, benefits and commonly accepted alternatives to the procedure, as well as the expected consequences of no therapy whatsoever. Discussion of the risks included, but was not limited to, those that are most frequent and those that are rare but possibly severe or life-threatening, as well as the possibility of unforeseen complications. Technique and Findings: Following informed consent, the patient was prepped and draped in the usual sterile fashion. Ultrasound interrogation of the right neck revealed patency and compressibility of the right internal jugular vein. A 21-gauge micropuncture needle was used to gain access to this vein after 1% Lidocaine was used to achieve local anesthesia. A hardcopy ultrasound image was recorded. The needle was exchanged over a wire for serial dilators followed by a 20 cm Schon temporary hemodialysis catheter which was deployed in the expected location of the mid right atrium. The catheter flow rates were assessed manually and found to be excellent. The catheter was then flushed, packed with Heparin, capped, and sutured to the skin. Chest x-ray was then obtained to assess line position. Complications: No immediate Impression: 1. Ultrasound guided placement of a temporary hemodialysis catheter which exhibits excellent manual flow rates as described.
--- NOTE | 2016-11-28 16:25 | RAD ---
Portable chest x-ray compared to similar examination from earlier the same day for line placement. Findings: There is a new right IJ temporary hemodialysis catheter which is appropriately positioned and suitable for use. Right IJ central line is unchanged. Airspace disease throughout the right lung is unchanged as well. Lung volumes overall are reduced. Heart size is within normal limits. Impression: 1. New right IJ temporary hemodialysis catheter appropriately positioned and suitable for use. 2. Otherwise stable chest x-ray.
[2016-11-28 18:00] LABS: RED BLOOD COUNT 1.91 x10^6/uL (4.30-5.70); RED CELL DISTRIBUTION WIDTH 13.8 % (11.5-14.5); WHITE BLOOD COUNT 13.1 x10^3/uL (4.0-11.0)
[2016-11-28 18:07] LABS: HEMOGLOBIN 5.7 g/dL (13.0-17.5)
--- NOTE | 2016-11-28 19:14 | RAD ---
PROCEDURE Nuclear medicine ventilation-perfusion scan. HISTORY Pneumonia. TECHNIQUE Patient is initially ventilated with 20 millicuries Xenon 133 gas. Anterior posterior static images of the lungs acquired during initial breath hold, equilibrium, and washout phase. Patient is then injected with 5 millicuries technetium 99m MAA and multi projection static images of the lungs acquired. COMPARISON AP chest, earlier same day. FINDINGS There is decreased ventilation in the right lung compared to the left. No significant retention of tracer is seen on the washout images. On the perfusion images, there are multiple small peripheral segmental and nonsegmental mismatched defects. IMPRESSION High probability for pulmonary embolus. Electronically signed by: Luis Villalobos MD (Nov 28, 2016 19:13:23)
[2016-11-28] MEDS: BUDESONIDE 0.5 MG/2 ML NEBU. NEB SCH (20:20)
[2016-11-28] MEDS ORDERED: DEXTROSE 70% IV SCH ×8 (22:00)
[2016-11-28] MEDS ORDERED: TOTAL PARENTERAL NUTRITION IV SCH ×8 (22:00)
[2016-11-28] MEDS ORDERED: AMINO ACIDS IV SCH ×8 (22:00)
[2016-11-28] MEDS ORDERED: [UNRECOGNIZED DRUG - OTHER] IV SCH ×8 (22:00)
[2016-11-28] MEDS ORDERED: VANCOMYCIN 1.5 GM in IV NORMAL SALINE 500ML BAG 500 ML IV SCH (22:00)
[2016-11-29] VITALS (25 sets, daily range): BP systolic 124–185; BP diastolic 44–68
[2016-11-29] MEDS: PIPERACILLIN/TAZOBACTAM 3.375 GM in IV NORMAL SALINE 50ML 50 ML IV SCH ×4 (00:02→17:50)
[2016-11-29] MEDS: INSULIN ASPART 300 UNITS/3 ML INSULN.PEN SQ SCH ×4 (00:10→17:51)
[2016-11-29] MEDS: METOPROLOL TARTRATE 5 MG/5 ML VIAL. IVP SCH ×3 (04:08→21:53)
[2016-11-29 06:47] LABS: ALBUMIN 2.9 g/dL (3.4-5.0); CALCIUM 7.8 mg/dL (8.5-10.1); CREATININE 2.1 mg/dL (0.7-1.3); GFR 31.3; PHOSPHORUS 3.1 mg/dL (2.6-4.7); POTASSIUM 3.9 mmol/L (3.5-5.1)
[2016-11-29 06:56] LABS: BASO % 0 % (0-3); EOS % 4 % (0-3); LYMPH # 0.9 x10^3/uL (1.0-4.8); LYMPH % 9 % (24-48); MEAN CORPUSCULAR HEMOGLOBIN 31 pg (25-35); MEAN CORPUSCULAR HGB CONC 34 g/dL (31-37); MEAN CORPUSCULAR VOLUME 90 fL (79-100); MONO % 13 % (0-9); NEUT % 75 % (31-73); PLATELET COUNT 84 x10^3/uL (140-400); RED BLOOD COUNT 2.27 x10^6/uL (4.30-5.70); RED CELL DISTRIBUTION WIDTH 14.9 % (11.5-14.5); WHITE BLOOD COUNT 10.3 x10^3/uL (4.0-11.0)
[2016-11-29 07:00] LABS: HEMATOCRIT 20.3 % (39.0-53.0); HEMOGLOBIN 6.9 g/dL (13.0-17.5)
[2016-11-29] MEDS: BUDESONIDE 0.5 MG/2 ML NEBU. NEB SCH ×2 (07:28→19:17)
[2016-11-29] MEDS: IPRATROPIUM BROMIDE 0.5 MG/2.5 ML NEBU. NEB SCH ×4 (07:28→19:17)
--- NOTE | 2016-11-29 07:39 | PDOC ---
PULMONARY PROGRESS NOTES Subjective on bipap, more alert, no pain, has sob, s/p prbc 4 units, off hep gtt. Vitals Vital Signs Date Time Temp Pulse Resp B/P Pulse Ox O2 Delivery O2 Flow Rate FiO2 11/29/16 06:00 66 18 134/48 100 BiPAP/CPAP 11/29/16 04:00 97.9 97.9 11/28/16 21:00 6.0 Comments ros as mentioned as above. discussed w rn, more alert today, other sys otherwise neg General: Lethargic HEENT: Other (nc at, perrl, nose clear, shallow oropharynx. neck, + jvd, no thyromegaly, no lap) Lungs: Crackles Cardiovascular: S1, S2 Abdomen: Soft, Non-tender, Other (no mass) Extremities: Other (2=edema) Skin: Warm Labs Laboratory Tests Test 11/27/16 12:25 11/27/16 19:34 11/27/16 20:35 11/28/16 00:58 O2 Saturation 88% (92-99) 93% (92-99) Arterial Blood pH 7.47 (7.35-7.45) 7.55 (7.35-7.45) Arterial Blood pCO2 at Patient Temp 34mmHg (35-46) 31mmHg (35-46) Arterial Blood pO2 at Patient Temp 58mmHg (65-108) 63mmHg (65-108) Arterial Blood HCO3 24mmol/L (21-28) 26mmol/L (21-28) Arterial Blood Base Excess 1mmol/L (-3-3) 3mmol/L (-3-3) FiO2 60% 60 Glucose (Fingerstick) 211mg/dL (70-99) 228mg/dL (70-99) Arterial Blood pH (Temp corrected) 7.54 Arterial Blood pCO2 (Temp correct) 31mmHg Arterial Blood pO2 (Temp corrected) 65mmHg Test 11/28/16 05:42 11/28/16 06:05 11/28/16 08:00 11/28/16 09:50 Glucose (Fingerstick) 221mg/dL (70-99) White Blood Count 11.7x10^3/uL (4.0-11.0) 11.0x10^3/uL (4.0-11.0) Red Blood Count 1.16x10^6/uL (4.30-5.70) 1.39x10^6/uL (4.30-5.70) Hemoglobin 3.5g/dL (13.0-17.5) 4.2g/dL (13.0-17.5) Hematocrit 10.5% (39.0-53.0) 12.3% (39.0-53.0) Mean Corpuscular Volume 90fL (79-100) 89fL (79-100) Mean Corpuscular Hemoglobin 30pg (25-35) 31pg (25-35) Mean Corpuscular Hemoglobin Concent 33g/dL (31-37) 34g/dL (31-37) Red Cell Distribution Width 14.2% (11.5-14.5) 13.7% (11.5-14.5) Platelet Count 103x10^3/uL (140-400) 109x10^3/uL (140-400) Heparin Anti-Xa Act, Unfractionated > 1.10IU/mL (0.30-0.70) Sodium Level 141mmol/L (136-145) Potassium Level 3.9mmol/L (3.5-5.1) Chloride Level 106mmol/L (98-107) Carbon Dioxide Level 25mmol/L (21-32) Anion Gap 10 (6-14) Blood Urea Nitrogen 43mg/dL (8-26) Creatinine 2.6mg/dL (0.7-1.3) Estimated GFR (Cockcroft-Gault) 24.5 Glucose Level 228mg/dL (70-99) Calcium Level 7.6mg/dL (8.5-10.1) Phosphorus Level 3.1mg/dL (2.6-4.7) Magnesium Level 2.3mg/dL (1.8-2.4) Creatine Kinase 381U/L (39-308) Albumin 2.2g/dL (3.4-5.0) O2 Saturation 95% (92-99) Arterial Blood pH 7.53 (7.35-7.45) Arterial Blood pCO2 at Patient Temp 27mmHg (35-46) Arterial Blood pO2 at Patient Temp 85mmHg (65-108) Arterial Blood HCO3 22mmol/L (21-28) Arterial Blood Base Excess -1mmol/L (-3-3) FiO2 50 Test 11/28/16 12:24 11/28/16 15:00 11/28/16 16:05 11/28/16 16:50 O2 Saturation 96% (92-99) Arterial Blood pH 7.51 (7.35-7.45) Arterial Blood pCO2 at Patient Temp 32mmHg (35-46) Arterial Blood pO2 at Patient Temp 94mmHg (65-108) Arterial Blood HCO3 25mmol/L (21-28) Arterial Blood Base Excess 1mmol/L (-3-3) FiO2 50 Prothrombin Time 14.2SEC (11.7-14.0) Prothromb Time International Ratio 1.2 (0.8-1.1) Heparin Anti-Xa Act, Unfractionated 0.86IU/mL (0.30-0.70) Glucose (Fingerstick) 162mg/dL (70-99) White Blood Count 13.1x10^3/uL (4.0-11.0) Red Blood Count 1.91x10^6/uL (4.30-5.70) Hemoglobin 5.7g/dL (13.0-17.5) Hematocrit 16.8% (39.0-53.0) Mean Corpuscular Volume 88fL (79-100) Mean Corpuscular Hemoglobin 30pg (25-35) Mean Corpuscular Hemoglobin Concent 34g/dL (31-37) Red Cell Distribution Width 13.8% (11.5-14.5) Platelet Count 108x10^3/uL (140-400) Test 11/29/16 00:03 11/29/16 06:20 11/29/16 06:26 Glucose (Fingerstick) 213mg/dL (70-99) 182mg/dL (70-99) White Blood Count 10.3x10^3/uL (4.0-11.0) Red Blood Count 2.27x10^6/uL (4.30-5.70) Hemoglobin 6.9g/dL (13.0-17.5) Hematocrit 20.3% (39.0-53.0) Mean Corpuscular Volume 90fL (79-100) Mean Corpuscular Hemoglobin 31pg (25-35) Mean Corpuscular Hemoglobin Concent 34g/dL (31-37) Red Cell Distribution Width 14.9% (11.5-14.5) Platelet Count 84x10^3/uL (140-400) Neutrophils (%) (Auto) 75% (31-73) Lymphocytes (%) (Auto) 9% (24-48) Monocytes (%) (Auto) 13% (0-9) Eosinophils (%) (Auto) 4% (0-3) Basophils (%) (Auto) 0% (0-3) Neutrophils # (Auto) 7.7x10^3uL (1.8-7.7) Lymphocytes # (Auto) 0.9x10^3/uL (1.0-4.8) Monocytes # (Auto) 1.3x10^3/uL (0.0-1.1) Eosinophils # (Auto) 0.4x10^3/uL (0.0-0.7) Basophils # (Auto) 0.0x10^3/uL (0.0-0.2) Sodium Level 145mmol/L (136-145) Potassium Level 3.9mmol/L (3.5-5.1) Chloride Level 109mmol/L (98-107) Carbon Dioxide Level 26mmol/L (21-32) Anion Gap 10 (6-14) Blood Urea Nitrogen 42mg/dL (8-26) Creatinine 2.1mg/dL (0.7-1.3) Estimated GFR (Cockcroft-Gault) 31.3 Glucose Level 196mg/dL (70-99) Calcium Level 7.8mg/dL (8.5-10.1) Phosphorus Level 3.1mg/dL (2.6-4.7) Magnesium Level 2.4mg/dL (1.8-2.4) Creatine Kinase 473U/L (39-308) Albumin 2.9g/dL (3.4-5.0) Laboratory Tests Test 11/28/16 08:00 11/28/16 09:50 11/28/16 12:24 11/28/16 15:00 O2 Saturation 95% (92-99) 96% (92-99) Arterial Blood pH 7.53 (7.35-7.45) 7.51 (7.35-7.45) Arterial Blood pCO2 at Patient Temp 27mmHg (35-46) 32mmHg (35-46) Arterial Blood pO2 at Patient Temp 85mmHg (65-108) 94mmHg (65-108) Arterial Blood HCO3 22mmol/L (21-28) 25mmol/L (21-28) Arterial Blood Base Excess -1mmol/L (-3-3) 1mmol/L (-3-3) FiO2 50 50 White Blood Count 11.0x10^3/uL (4.0-11.0) Red Blood Count 1.39x10^6/uL (4.30-5.70) Hemoglobin 4.2g/dL (13.0-17.5) Hematocrit 12.3% (39.0-53.0) Mean Corpuscular Volume 89fL (79-100) Mean Corpuscular Hemoglobin 31pg (25-35) Mean Corpuscular Hemoglobin Concent 34g/dL (31-37) Red Cell Distribution Width 13.7% (11.5-14.5) Platelet Count 109x10^3/uL (140-400) Prothrombin Time 14.2SEC (11.7-14.0) Prothromb Time International Ratio 1.2 (0.8-1.1) Heparin Anti-Xa Act, Unfractionated 0.86IU/mL (0.30-0.70) Test 11/28/16 16:05 11/28/16 16:50 11/29/16 00:03 11/29/16 06:20 Glucose (Fingerstick) 162mg/dL (70-99) 213mg/dL (70-99) White Blood Count 13.1x10^3/uL (4.0-11.0) 10.3x10^3/uL (4.0-11.0) Red Blood Count 1.91x10^6/uL (4.30-5.70) 2.27x10^6/uL (4.30-5.70) Hemoglobin 5.7g/dL (13.0-17.5) 6.9g/dL (13.0-17.5) Hematocrit 16.8% (39.0-53.0) 20.3% (39.0-53.0) Mean Corpuscular Volume 88fL (79-100) 90fL (79-100) Mean Corpuscular Hemoglobin 30pg (25-35) 31pg (25-35) Mean Corpuscular Hemoglobin Concent 34g/dL (31-37) 34g/dL (31-37) Red Cell Distribution Width 13.8% (11.5-14.5) 14.9% (11.5-14.5) Platelet Count 108x10^3/uL (140-400) 84x10^3/uL (140-400) Neutrophils (%) (Auto) 75% (31-73) Lymphocytes (%) (Auto) 9% (24-48) Monocytes (%) (Auto) 13% (0-9) Eosinophils (%) (Auto) 4% (0-3) Basophils (%) (Auto) 0% (0-3) Neutrophils # (Auto) 7.7x10^3uL (1.8-7.7) Lymphocytes # (Auto) 0.9x10^3/uL (1.0-4.8) Monocytes # (Auto) 1.3x10^3/uL (0.0-1.1) Eosinophils # (Auto) 0.4x10^3/uL (0.0-0.7) Basophils # (Auto) 0.0x10^3/uL (0.0-0.2) Sodium Level 145mmol/L (136-145) Potassium Level 3.9mmol/L (3.5-5.1) Chloride Level 109mmol/L (98-107) Carbon Dioxide Level 26mmol/L (21-32) Anion Gap 10 (6-14) Blood Urea Nitrogen 42mg/dL (8-26) Creatinine 2.1mg/dL (0.7-1.3) Estimated GFR (Cockcroft-Gault) 31.3 Glucose Level 196mg/dL (70-99) Calcium Level 7.8mg/dL (8.5-10.1) Phosphorus Level 3.1mg/dL (2.6-4.7) Magnesium Level 2.4mg/dL (1.8-2.4) Creatine Kinase 473U/L (39-308) Albumin 2.9g/dL (3.4-5.0) Test 11/29/16 06:26 Glucose (Fingerstick) 182mg/dL (70-99) Comments cxr reviewed, Volume loss at the right lung base compatible with pleural fluid and atelectasis or pneumonia is similar. Heart and pulmonary vessels are similar. Right IJ catheter is again noted. Impression . 1. Acute respiratory failure secondary to [id number] cardiopulmonary arrest. Suspect secondary to arrhythmia. 2. Hyperlipidemia. 3. Diabetes. 4. Positive venous Doppler on Heparin/ popliteal nonocclusive thrombus. 5. Metabolic acidosis sec to code 6. Possible PE 7. Ischemia CM 35-40% 8. Acute kidney injury 9. anemia, ? gib 10. wheezing, acute bronchospasm 11. abnl cxr Plan . 1. cont bipap, setting reviewed, monitor resp status closely, 2. s/p hypothermic protocol 3. Cardiology follow rec 4. follow nephrology input 5. Further cardiac workup per Dr. Lu. 6. Titrate FIO2. 7. cont antibiotics. 8. bronchodilator, ics 9. protonix gtt, ? gi consult. s/p prbc 4 units, monitor h/h, cxr showed stomach distention, start ng to lis, 10. heparin was stopped, ? ivc filter 11. keep I<O, monitor k, cr discussed w rn, rt, will discuss w cardiology ASHLEY DIAZ MD Nov 29, 2016 07:39
--- NOTE | 2016-11-29 08:35 | PDOC ---
CARDIOLOGY PROGRESS NOTE SUBJECTIVE: No significant overnight events. ' This morning remains on Bipap. Able to answer simple questions. Denies any pain. Very fatigued. OBJECTIVE: Vital SIgns: Vital Signs Date Time Temp Pulse Resp B/P Pulse Ox O2 Delivery O2 Flow Rate FiO2 11/29/16 07:25 98 BiPAP/CPAP 11/29/16 06:00 66 18 134/48 11/29/16 04:00 97.9 97.9 11/28/16 21:00 6.0 I & O -1.6L Objective: Gen: Somnolent but arousable. CVS: RRR, no m/r/g PULM: Rhonchi bilaterally. ABD: Soft, NT/ND +BS EXT: 1+ pitting edema. NEURO: Moving all extremities. Opens eyes. No focal deficits. CURRENT MEDICATIONS: No current CV meds. DIAGNOSTIC TESTING: V/Q scan: High probability for P.E. Hgb 6.9. Plt 80s ASSESSMENT: 1. Cardiac arrest, likely secondary to massive P.E. 2. Cardiomyopathy with EF of 35-40% 3. Thrombocytopenia and anemia of unknown origin. 4. Acute respiratory failure, secondary to above. 5. HAMILTON, secondary to above. 6. PNA, per pulmonary Problems: PLAN: 1. Discussed with family. Will proceed with IVC filter today (Discussed with IR) . 2. Will hold hep gtt until seen by GI/ Hem/onc. 3. Transfuse 1 unit more of PRBC's 4. Diuresis as tolerated. 5. Continue bipap and abx per pulm. 6. HAMILTON being managed by renal. Will follow. Critically ill. FARIDA ALDRICH MD Nov 29, 2016 08:35
[2016-11-29] MEDS: TPN PER PHARMACY MC PRN (08:51)
[2016-11-29] MEDS: ALBUMIN HUMAN 25% 100 ML IV SCH (08:56)
[2016-11-29] MEDS: ASPIRIN 300 MG SUPP.RECT PR SCH (09:00)
[2016-11-29] MEDS ORDERED: LIDOCAINE 1% / SOD BICARB 8.4% 20 ML VIAL. IJ ONE ×2 (09:12→10:00)
[2016-11-29] MEDS ORDERED: IOHEXOL 300 MG/ML 100ML VIAL. ONE (09:12)
--- NOTE | 2016-11-29 09:13 | RAD ---
Indication respiratory failure. A single view of the chest was obtained and is compared to a study one day earlier obtained at 22. There has been interval worsening. There is now volume loss in the right upper lobe compatible with atelectasis or pneumonia. There are suspect superimposed background changes of mild congestive heart failure. There are probable small pleural effusions. There has been interval placement of a right-sided dialysis catheter. No pneumothorax is seen. IMPRESSION: Interval worsening. There is now volume loss in the right upper lobe compatible with atelectasis or pneumonia. There are suspect background changes of congestive heart failure. Probable small pleural effusions. Interval placement of right-sided dialysis catheter. No complication seen
--- NOTE | 2016-11-29 09:15 | PDOC ---
WILL STARK [employer] SERVICE REPRESENTATIVE 11/29/16 0915: SURGICAL PROGRESS NOTE Subjective awake, bipap D/w nurse, no bloody stools, planning to place NG to eval for any blood Vital Signs Vital Signs Date Time Temp Pulse Resp B/P Pulse Ox O2 Delivery O2 Flow Rate FiO2 11/29/16 07:25 98 BiPAP/CPAP 11/29/16 06:00 66 18 134/48 11/29/16 04:00 97.9 97.9 11/28/16 21:00 6.0 I&O Intake and Output 11/29/16 07:00 Intake Total 3181.4 ml Output Total 4810 ml Balance -1628.6 ml Intake Oral 0 ml IV Total 1771.4 ml Blood Product 660 ml Blood Product IV Normal Saline Flush 750 ml Output Urine Total 4810 ml # Bowel Movements 2 General: Cooperative, No acute distress Abdomen: Soft, No tenderness Labs Laboratory Tests Test 11/27/16 12:25 11/27/16 19:34 11/27/16 20:35 11/28/16 00:58 O2 Saturation 88% (92-99) 93% (92-99) Arterial Blood pH 7.47 (7.35-7.45) 7.55 (7.35-7.45) Arterial Blood pCO2 at Patient Temp 34mmHg (35-46) 31mmHg (35-46) Arterial Blood pO2 at Patient Temp 58mmHg (65-108) 63mmHg (65-108) Arterial Blood HCO3 24mmol/L (21-28) 26mmol/L (21-28) Arterial Blood Base Excess 1mmol/L (-3-3) 3mmol/L (-3-3) FiO2 60% 60 Glucose (Fingerstick) 211mg/dL (70-99) 228mg/dL (70-99) Arterial Blood pH (Temp corrected) 7.54 Arterial Blood pCO2 (Temp correct) 31mmHg Arterial Blood pO2 (Temp corrected) 65mmHg Test 11/28/16 05:42 11/28/16 06:05 11/28/16 08:00 11/28/16 09:50 Glucose (Fingerstick) 221mg/dL (70-99) White Blood Count 11.7x10^3/uL (4.0-11.0) 11.0x10^3/uL (4.0-11.0) Red Blood Count 1.16x10^6/uL (4.30-5.70) 1.39x10^6/uL (4.30-5.70) Hemoglobin 3.5g/dL (13.0-17.5) 4.2g/dL (13.0-17.5) Hematocrit 10.5% (39.0-53.0) 12.3% (39.0-53.0) Mean Corpuscular Volume 90fL (79-100) 89fL (79-100) Mean Corpuscular Hemoglobin 30pg (25-35) 31pg (25-35) Mean Corpuscular Hemoglobin Concent 33g/dL (31-37) 34g/dL (31-37) Red Cell Distribution Width 14.2% (11.5-14.5) 13.7% (11.5-14.5) Platelet Count 103x10^3/uL (140-400) 109x10^3/uL (140-400) Heparin Anti-Xa Act, Unfractionated > 1.10IU/mL (0.30-0.70) Sodium Level 141mmol/L (136-145) Potassium Level 3.9mmol/L (3.5-5.1) Chloride Level 106mmol/L (98-107) Carbon Dioxide Level 25mmol/L (21-32) Anion Gap 10 (6-14) Blood Urea Nitrogen 43mg/dL (8-26) Creatinine 2.6mg/dL (0.7-1.3) Estimated GFR (Cockcroft-Gault) 24.5 Glucose Level 228mg/dL (70-99) Calcium Level 7.6mg/dL (8.5-10.1) Phosphorus Level 3.1mg/dL (2.6-4.7) Magnesium Level 2.3mg/dL (1.8-2.4) Creatine Kinase 381U/L (39-308) Albumin 2.2g/dL (3.4-5.0) O2 Saturation 95% (92-99) Arterial Blood pH 7.53 (7.35-7.45) Arterial Blood pCO2 at Patient Temp 27mmHg (35-46) Arterial Blood pO2 at Patient Temp 85mmHg (65-108) Arterial Blood HCO3 22mmol/L (21-28) Arterial Blood Base Excess -1mmol/L (-3-3) FiO2 50 Test 11/28/16 12:24 11/28/16 15:00 11/28/16 16:05 11/28/16 16:50 O2 Saturation 96% (92-99) Arterial Blood pH 7.51 (7.35-7.45) Arterial Blood pCO2 at Patient Temp 32mmHg (35-46) Arterial Blood pO2 at Patient Temp 94mmHg (65-108) Arterial Blood HCO3 25mmol/L (21-28) Arterial Blood Base Excess 1mmol/L (-3-3) FiO2 50 Prothrombin Time 14.2SEC (11.7-14.0) Prothromb Time International Ratio 1.2 (0.8-1.1) Heparin Anti-Xa Act, Unfractionated 0.86IU/mL (0.30-0.70) Glucose (Fingerstick) 162mg/dL (70-99) White Blood Count 13.1x10^3/uL (4.0-11.0) Red Blood Count 1.91x10^6/uL (4.30-5.70) Hemoglobin 5.7g/dL (13.0-17.5) Hematocrit 16.8% (39.0-53.0) Mean Corpuscular Volume 88fL (79-100) Mean Corpuscular Hemoglobin 30pg (25-35) Mean Corpuscular Hemoglobin Concent 34g/dL (31-37) Red Cell Distribution Width 13.8% (11.5-14.5) Platelet Count 108x10^3/uL (140-400) Test 11/29/16 00:03 11/29/16 06:20 11/29/16 06:26 Glucose (Fingerstick) 213mg/dL (70-99) 182mg/dL (70-99) White Blood Count 10.3x10^3/uL (4.0-11.0) Red Blood Count 2.27x10^6/uL (4.30-5.70) Hemoglobin 6.9g/dL (13.0-17.5) Hematocrit 20.3% (39.0-53.0) Mean Corpuscular Volume 90fL (79-100) Mean Corpuscular Hemoglobin 31pg (25-35) Mean Corpuscular Hemoglobin Concent 34g/dL (31-37) Red Cell Distribution Width 14.9% (11.5-14.5) Platelet Count 84x10^3/uL (140-400) Neutrophils (%) (Auto) 75% (31-73) Lymphocytes (%) (Auto) 9% (24-48) Monocytes (%) (Auto) 13% (0-9) Eosinophils (%) (Auto) 4% (0-3) Basophils (%) (Auto) 0% (0-3) Neutrophils # (Auto) 7.7x10^3uL (1.8-7.7) Lymphocytes # (Auto) 0.9x10^3/uL (1.0-4.8) Monocytes # (Auto) 1.3x10^3/uL (0.0-1.1) Eosinophils # (Auto) 0.4x10^3/uL (0.0-0.7) Basophils # (Auto) 0.0x10^3/uL (0.0-0.2) Sodium Level 145mmol/L (136-145) Potassium Level 3.9mmol/L (3.5-5.1) Chloride Level 109mmol/L (98-107) Carbon Dioxide Level 26mmol/L (21-32) Anion Gap 10 (6-14) Blood Urea Nitrogen 42mg/dL (8-26) Creatinine 2.1mg/dL (0.7-1.3) Estimated GFR (Cockcroft-Gault) 31.3 Glucose Level 196mg/dL (70-99) Calcium Level 7.8mg/dL (8.5-10.1) Phosphorus Level 3.1mg/dL (2.6-4.7) Magnesium Level 2.4mg/dL (1.8-2.4) Creatine Kinase 473U/L (39-308) Albumin 2.9g/dL (3.4-5.0) Laboratory Tests Test 11/28/16 09:50 11/28/16 12:24 11/28/16 15:00 11/28/16 16:05 White Blood Count 11.0x10^3/uL (4.0-11.0) Red Blood Count 1.39x10^6/uL (4.30-5.70) Hemoglobin 4.2g/dL (13.0-17.5) Hematocrit 12.3% (39.0-53.0) Mean Corpuscular Volume 89fL (79-100) Mean Corpuscular Hemoglobin 31pg (25-35) Mean Corpuscular Hemoglobin Concent 34g/dL (31-37) Red Cell Distribution Width 13.7% (11.5-14.5) Platelet Count 109x10^3/uL (140-400) O2 Saturation 96% (92-99) Arterial Blood pH 7.51 (7.35-7.45) Arterial Blood pCO2 at Patient Temp 32mmHg (35-46) Arterial Blood pO2 at Patient Temp 94mmHg (65-108) Arterial Blood HCO3 25mmol/L (21-28) Arterial Blood Base Excess 1mmol/L (-3-3) FiO2 50 Prothrombin Time 14.2SEC (11.7-14.0) Prothromb Time International Ratio 1.2 (0.8-1.1) Heparin Anti-Xa Act, Unfractionated 0.86IU/mL (0.30-0.70) Glucose (Fingerstick) 162mg/dL (70-99) Test 11/28/16 16:50 11/29/16 00:03 11/29/16 06:20 11/29/16 06:26 White Blood Count 13.1x10^3/uL (4.0-11.0) 10.3x10^3/uL (4.0-11.0) Red Blood Count 1.91x10^6/uL (4.30-5.70) 2.27x10^6/uL (4.30-5.70) Hemoglobin 5.7g/dL (13.0-17.5) 6.9g/dL (13.0-17.5) Hematocrit 16.8% (39.0-53.0) 20.3% (39.0-53.0) Mean Corpuscular Volume 88fL (79-100) 90fL (79-100) Mean Corpuscular Hemoglobin 30pg (25-35) 31pg (25-35) Mean Corpuscular Hemoglobin Concent 34g/dL (31-37) 34g/dL (31-37) Red Cell Distribution Width 13.8% (11.5-14.5) 14.9% (11.5-14.5) Platelet Count 108x10^3/uL (140-400) 84x10^3/uL (140-400) Glucose (Fingerstick) 213mg/dL (70-99) 182mg/dL (70-99) Neutrophils (%) (Auto) 75% (31-73) Lymphocytes (%) (Auto) 9% (24-48) Monocytes (%) (Auto) 13% (0-9) Eosinophils (%) (Auto) 4% (0-3) Basophils (%) (Auto) 0% (0-3) Neutrophils # (Auto) 7.7x10^3uL (1.8-7.7) Lymphocytes # (Auto) 0.9x10^3/uL (1.0-4.8) Monocytes # (Auto) 1.3x10^3/uL (0.0-1.1) Eosinophils # (Auto) 0.4x10^3/uL (0.0-0.7) Basophils # (Auto) 0.0x10^3/uL (0.0-0.2) Sodium Level 145mmol/L (136-145) Potassium Level 3.9mmol/L (3.5-5.1) Chloride Level 109mmol/L (98-107) Carbon Dioxide Level 26mmol/L (21-32) Anion Gap 10 (6-14) Blood Urea Nitrogen 42mg/dL (8-26) Creatinine 2.1mg/dL (0.7-1.3) Estimated GFR (Cockcroft-Gault) 31.3 Glucose Level 196mg/dL (70-99) Calcium Level 7.8mg/dL (8.5-10.1) Phosphorus Level 3.1mg/dL (2.6-4.7) Magnesium Level 2.4mg/dL (1.8-2.4) Creatine Kinase 473U/L (39-308) Albumin 2.9g/dL (3.4-5.0) Problem List Problems Medical Problems: (1) Cardiac arrest Status: Acute Assessment/Plan acute blood loss anemia, 6 units of blood--hgb 6.9, plts low at 84, calcium is low at 7.8 PE, IVC filter planned today supportive care, transfusions, would recommend replace low calcium Problems: WENDY ANTOINE MD 11/30/16 0757: SURGICAL PROGRESS NOTE Assessment/Plan Agree with above Problems: WILL STARK APRN Nov 29, 2016 09:15 WENDY ANTOINE MD Nov 30, 2016 07:57
--- NOTE | 2016-11-29 09:28 | PDOC ---
Infectious Disease Note Subjective Subjective On BiPAP. FiO2 40% TPN Denies pain, SOA, upset stomach No fever Vital Sign Vital Signs Vital Signs Date Time Temp Pulse Resp B/P Pulse Ox O2 Delivery O2 Flow Rate FiO2 11/29/16 07:25 98 BiPAP/CPAP 11/29/16 06:00 66 18 134/48 11/29/16 04:00 97.9 97.9 11/28/16 21:00 6.0 Physical Exam PHYSICAL EXAM GENERAL: On BiPAP HEENT: Oral cavity dry LUNGS: Diminished aeration bases HEART: S1S2, no gallop, no murmur ABD: Soft, NT, no organomegaly, no rebound : Pal EXT: Pedal edema. LIDDER: Lethargic, opens eyes to voice, nods to few questions SKIN: Pale RIJ/HD. (11/28). clean Labs Lab Laboratory Tests Test 11/28/16 09:50 11/28/16 12:24 11/28/16 15:00 11/28/16 16:05 White Blood Count 11.0x10^3/uL (4.0-11.0) Red Blood Count 1.39x10^6/uL (4.30-5.70) Hemoglobin 4.2g/dL (13.0-17.5) Hematocrit 12.3% (39.0-53.0) Mean Corpuscular Volume 89fL (79-100) Mean Corpuscular Hemoglobin 31pg (25-35) Mean Corpuscular Hemoglobin Concent 34g/dL (31-37) Red Cell Distribution Width 13.7% (11.5-14.5) Platelet Count 109x10^3/uL (140-400) O2 Saturation 96% (92-99) Arterial Blood pH 7.51 (7.35-7.45) Arterial Blood pCO2 at Patient Temp 32mmHg (35-46) Arterial Blood pO2 at Patient Temp 94mmHg (65-108) Arterial Blood HCO3 25mmol/L (21-28) Arterial Blood Base Excess 1mmol/L (-3-3) FiO2 50 Prothrombin Time 14.2SEC (11.7-14.0) Prothromb Time International Ratio 1.2 (0.8-1.1) Heparin Anti-Xa Act, Unfractionated 0.86IU/mL (0.30-0.70) Glucose (Fingerstick) 162mg/dL (70-99) Test 11/28/16 16:50 11/29/16 00:03 11/29/16 06:20 11/29/16 06:26 White Blood Count 13.1x10^3/uL (4.0-11.0) 10.3x10^3/uL (4.0-11.0) Red Blood Count 1.91x10^6/uL (4.30-5.70) 2.27x10^6/uL (4.30-5.70) Hemoglobin 5.7g/dL (13.0-17.5) 6.9g/dL (13.0-17.5) Hematocrit 16.8% (39.0-53.0) 20.3% (39.0-53.0) Mean Corpuscular Volume 88fL (79-100) 90fL (79-100) Mean Corpuscular Hemoglobin 30pg (25-35) 31pg (25-35) Mean Corpuscular Hemoglobin Concent 34g/dL (31-37) 34g/dL (31-37) Red Cell Distribution Width 13.8% (11.5-14.5) 14.9% (11.5-14.5) Platelet Count 108x10^3/uL (140-400) 84x10^3/uL (140-400) Glucose (Fingerstick) 213mg/dL (70-99) 182mg/dL (70-99) Neutrophils (%) (Auto) 75% (31-73) Lymphocytes (%) (Auto) 9% (24-48) Monocytes (%) (Auto) 13% (0-9) Eosinophils (%) (Auto) 4% (0-3) Basophils (%) (Auto) 0% (0-3) Neutrophils # (Auto) 7.7x10^3uL (1.8-7.7) Lymphocytes # (Auto) 0.9x10^3/uL (1.0-4.8) Monocytes # (Auto) 1.3x10^3/uL (0.0-1.1) Eosinophils # (Auto) 0.4x10^3/uL (0.0-0.7) Basophils # (Auto) 0.0x10^3/uL (0.0-0.2) Sodium Level 145mmol/L (136-145) Potassium Level 3.9mmol/L (3.5-5.1) Chloride Level 109mmol/L (98-107) Carbon Dioxide Level 26mmol/L (21-32) Anion Gap 10 (6-14) Blood Urea Nitrogen 42mg/dL (8-26) Creatinine 2.1mg/dL (0.7-1.3) Estimated GFR (Cockcroft-Gault) 31.3 Glucose Level 196mg/dL (70-99) Calcium Level 7.8mg/dL (8.5-10.1) Phosphorus Level 3.1mg/dL (2.6-4.7) Magnesium Level 2.4mg/dL (1.8-2.4) Creatine Kinase 473U/L (39-308) Albumin 2.9g/dL (3.4-5.0) Micro URINE CULTURE RES 1 Final No growth in 48 hours. BLD CULT RESULT 1 Preliminary (1 of 4 bottles) Gram positive cocci Beta lactamase negative. Objective Assessment S/P VT/VF Cardiac arrest DVT/PE Suspected ischemic bowel Lactic acidosis Leukocytosis likely reactive GPC bacteremia. [place] Respiratory failure. Anemia Plan Plan of Care Zyvox and Zosyn Await GPC ID. D/w micro. Repeat BC in progress Blood transfusion underway IVC filter to be placed f/u BC, cxr and monitor labs Supportive care Patient seen and examined. Chart reviewed in detail. Case d/w [employer].Agree with above plan DENYS ALVARENGA APRN Nov 29, 2016 09:28 RONEY PETIT MD Nov 29, 2016 16:28
[2016-11-29] MEDS ORDERED: IOHEXOL 300 MG/ML 100ML VIAL. IART ONE (10:00)
--- NOTE | 2016-11-29 10:13 | PDOC4 ---
PROCEDURE Procedure Procedure: IVC Filter from R Groin approach Indication: extensive DVT and PE with bleeding on anticoagulation Environmental Studies Department Chair: Lucien Body Team Member: Karyn Ford Findings: patent IVC. Normal anatomy. Successful Filter Placement Complications: None Contrast 15 cc Blood Loss <5cc SIDNEY GONZÁLES MD Nov 29, 2016 10:12
--- NOTE | 2016-11-29 10:19 | RAD ---
Procedure: 1. Inferior venacavogram 2. IVC filter placement FLUOROSCOPY TIME less than 1 minute The procedure, risks, and complications were explained to the and they understood and wished to proceed. Consent form signed. The right groin was prepped and draped using maximal sterile technique and 1% Xylocaine was used for local anesthesia. All elements of maximum barrier sterile technique were utilized. A singlewall puncture was made into the right common femoral vein under ultrasound guidance. An image was saved and sent to PACS. Ultrasound evaluation shows that the right common femoral vein is patent. The delivery sheath was placed into the inferior vena cava near the iliac confluence. IVC gram: Digital subtraction venogram was then performed through the filter delivery sheath. Renal vein inflow identified. The infra-renal IVC measures 2.0 cm. Patent inferior vena cava. No venous anomalies. IVC filter placement: Next, under fluoroscopic guidance, a Bard Eclipse inferior vena cava filter was deployed in an infrarenal location. The filter is well seated. Repeat venogram is unremarkable in appearance. Sedation: <<Conscious sedation for [ >> mins. Intravenous Versed and fentanyl were administered. The patient was monitored by pulse oximetry and cardiovascular monitoring equipment and observed by the nurses in attendance.] Complications: None Contrast: 15 cc?s The patient tolerated the procedure well. The groin catheter was removed, pressure placed, and hemostasis obtained. The patient returned to the ICU in a stable condition. Conclusion: 1. Normal IVC gram. 2. Status post infrarenal ultrasound and fluoroscopic Bard Eclipse IVC filter placement. This is an optional IVC filter. In 3-6 months the patient should be reevaluated for possible inferior vena cava filter removal.
[2016-11-29] MEDS ORDERED: CONTRAST GIVEN MC PRN (10:30)
--- NOTE | 2016-11-29 10:58 | PDOC ---
PROGRESS NOTES Chief Complaint Chief Complaint Cardiac arrest ASSESSMENT AND PLAN; 1. Cardiac arrest: s/p hypothermia 2. Respir failure: extubated 11/26 3. DVT: Bilateral LE. 4. CHF: systolic (EF 35-40%). new. 5. ?HAMILTON with CKD: 6. Leukocytosis: reactive. 7. Transaminitis: 8. DM2: 9. HLD: on statin 10: FAtty liver, asymptomatic cholelithiasis 11. Acute encephalopathy post cardiac cath (11/27) 12. Acute respiratory failure needing NIPPV 11/27 13. Atelectasis 13. Precipitous drop in hgb History of Present Illness History of Present Illness Just had IVC filter now On BIPAP, following commands Hgb 5 plus, after 2 pRBC yesterday - ordered for 2 more last night Hgb today 6.9 - cards ordered 1 more pRBC Creatinine so far holding at 2.1 UO, ok Significant brusing on R inner groin and left all the way up to the R upper abd and chest wall area CTA: IMPRESSION: Moderate right pleural effusion and small left. Volume loss at the right lung base and in the right upper lobe is compatible with atelectasis or pneumonia. Soft tissue swelling suggesting a systemic process such as anasarca. No evidence of retroperitoneal hemorrhage. Acute finding in the abdomen or pelvis is not seen. Cholelithiasis. 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 Vitals Vitals Vital Signs Date Time Temp Pulse Resp B/P Pulse Ox O2 Delivery O2 Flow Rate FiO2 11/29/16 10:16 77 21 142/47 99 NonRebreather Mask 15.0 11/29/16 04:00 97.9 97.9 Physical Exam General: Cooperative, No acute distress Heart: No murmurs Lungs: Crackles Abdomen: Soft, No tenderness Extremities: No cyanosis, Other (1+ LE edema R) Skin: No rashes, No breakdown, No significant lesion Labs LABS Laboratory Tests Test 11/28/16 12:24 11/28/16 15:00 11/28/16 16:05 11/28/16 16:50 O2 Saturation 96% (92-99) Arterial Blood pH 7.51 (7.35-7.45) Arterial Blood pCO2 at Patient Temp 32mmHg (35-46) Arterial Blood pO2 at Patient Temp 94mmHg (65-108) Arterial Blood HCO3 25mmol/L (21-28) Arterial Blood Base Excess 1mmol/L (-3-3) FiO2 50 Prothrombin Time 14.2SEC (11.7-14.0) Prothromb Time International Ratio 1.2 (0.8-1.1) Heparin Anti-Xa Act, Unfractionated 0.86IU/mL (0.30-0.70) Glucose (Fingerstick) 162mg/dL (70-99) White Blood Count 13.1x10^3/uL (4.0-11.0) Red Blood Count 1.91x10^6/uL (4.30-5.70) Hemoglobin 5.7g/dL (13.0-17.5) Hematocrit 16.8% (39.0-53.0) Mean Corpuscular Volume 88fL (79-100) Mean Corpuscular Hemoglobin 30pg (25-35) Mean Corpuscular Hemoglobin Concent 34g/dL (31-37) Red Cell Distribution Width 13.8% (11.5-14.5) Platelet Count 108x10^3/uL (140-400) Test 11/29/16 00:03 11/29/16 06:20 11/29/16 06:26 Glucose (Fingerstick) 213mg/dL (70-99) 182mg/dL (70-99) White Blood Count 10.3x10^3/uL (4.0-11.0) Red Blood Count 2.27x10^6/uL (4.30-5.70) Hemoglobin 6.9g/dL (13.0-17.5) Hematocrit 20.3% (39.0-53.0) Mean Corpuscular Volume 90fL (79-100) Mean Corpuscular Hemoglobin 31pg (25-35) Mean Corpuscular Hemoglobin Concent 34g/dL (31-37) Red Cell Distribution Width 14.9% (11.5-14.5) Platelet Count 84x10^3/uL (140-400) Neutrophils (%) (Auto) 75% (31-73) Lymphocytes (%) (Auto) 9% (24-48) Monocytes (%) (Auto) 13% (0-9) Eosinophils (%) (Auto) 4% (0-3) Basophils (%) (Auto) 0% (0-3) Neutrophils # (Auto) 7.7x10^3uL (1.8-7.7) Lymphocytes # (Auto) 0.9x10^3/uL (1.0-4.8) Monocytes # (Auto) 1.3x10^3/uL (0.0-1.1) Eosinophils # (Auto) 0.4x10^3/uL (0.0-0.7) Basophils # (Auto) 0.0x10^3/uL (0.0-0.2) Sodium Level 145mmol/L (136-145) Potassium Level 3.9mmol/L (3.5-5.1) Chloride Level 109mmol/L (98-107) Carbon Dioxide Level 26mmol/L (21-32) Anion Gap 10 (6-14) Blood Urea Nitrogen 42mg/dL (8-26) Creatinine 2.1mg/dL (0.7-1.3) Estimated GFR (Cockcroft-Gault) 31.3 Glucose Level 196mg/dL (70-99) Calcium Level 7.8mg/dL (8.5-10.1) Phosphorus Level 3.1mg/dL (2.6-4.7) Magnesium Level 2.4mg/dL (1.8-2.4) Creatine Kinase 473U/L (39-308) Albumin 2.9g/dL (3.4-5.0) Review of Systems Review of Systems limited on bipap Assessment and Plan Assessmemt and Plan Problems Medical Problems: (1) Cardiac arrest Status: Acute Problems: Comment Review of Relevant I have reviewed the following items rodolfo (where applicable) has been applied. Labs Laboratory Tests Test 11/27/16 12:25 11/27/16 19:34 11/27/16 20:35 11/28/16 00:58 O2 Saturation 88% (92-99) 93% (92-99) Arterial Blood pH 7.47 (7.35-7.45) 7.55 (7.35-7.45) Arterial Blood pCO2 at Patient Temp 34mmHg (35-46) 31mmHg (35-46) Arterial Blood pO2 at Patient Temp 58mmHg (65-108) 63mmHg (65-108) Arterial Blood HCO3 24mmol/L (21-28) 26mmol/L (21-28) Arterial Blood Base Excess 1mmol/L (-3-3) 3mmol/L (-3-3) FiO2 60% 60 Glucose (Fingerstick) 211mg/dL (70-99) 228mg/dL (70-99) Arterial Blood pH (Temp corrected) 7.54 Arterial Blood pCO2 (Temp correct) 31mmHg Arterial Blood pO2 (Temp corrected) 65mmHg Test 11/28/16 05:42 11/28/16 06:05 11/28/16 08:00 11/28/16 09:50 Glucose (Fingerstick) 221mg/dL (70-99) White Blood Count 11.7x10^3/uL (4.0-11.0) 11.0x10^3/uL (4.0-11.0) Red Blood Count 1.16x10^6/uL (4.30-5.70) 1.39x10^6/uL (4.30-5.70) Hemoglobin 3.5g/dL (13.0-17.5) 4.2g/dL (13.0-17.5) Hematocrit 10.5% (39.0-53.0) 12.3% (39.0-53.0) Mean Corpuscular Volume 90fL (79-100) 89fL (79-100) Mean Corpuscular Hemoglobin 30pg (25-35) 31pg (25-35) Mean Corpuscular Hemoglobin Concent 33g/dL (31-37) 34g/dL (31-37) Red Cell Distribution Width 14.2% (11.5-14.5) 13.7% (11.5-14.5) Platelet Count 103x10^3/uL (140-400) 109x10^3/uL (140-400) Heparin Anti-Xa Act, Unfractionated > 1.10IU/mL (0.30-0.70) Sodium Level 141mmol/L (136-145) Potassium Level 3.9mmol/L (3.5-5.1) Chloride Level 106mmol/L (98-107) Carbon Dioxide Level 25mmol/L (21-32) Anion Gap 10 (6-14) Blood Urea Nitrogen 43mg/dL (8-26) Creatinine 2.6mg/dL (0.7-1.3) Estimated GFR (Cockcroft-Gault) 24.5 Glucose Level 228mg/dL (70-99) Calcium Level 7.6mg/dL (8.5-10.1) Phosphorus Level 3.1mg/dL (2.6-4.7) Magnesium Level 2.3mg/dL (1.8-2.4) Creatine Kinase 381U/L (39-308) Albumin 2.2g/dL (3.4-5.0) O2 Saturation 95% (92-99) Arterial Blood pH 7.53 (7.35-7.45) Arterial Blood pCO2 at Patient Temp 27mmHg (35-46) Arterial Blood pO2 at Patient Temp 85mmHg (65-108) Arterial Blood HCO3 22mmol/L (21-28) Arterial Blood Base Excess -1mmol/L (-3-3) FiO2 50 Test 11/28/16 12:24 11/28/16 15:00 11/28/16 16:05 11/28/16 16:50 O2 Saturation 96% (92-99) Arterial Blood pH 7.51 (7.35-7.45) Arterial Blood pCO2 at Patient Temp 32mmHg (35-46) Arterial Blood pO2 at Patient Temp 94mmHg (65-108) Arterial Blood HCO3 25mmol/L (21-28) Arterial Blood Base Excess 1mmol/L (-3-3) FiO2 50 Prothrombin Time 14.2SEC (11.7-14.0) Prothromb Time International Ratio 1.2 (0.8-1.1) Heparin Anti-Xa Act, Unfractionated 0.86IU/mL (0.30-0.70) Glucose (Fingerstick) 162mg/dL (70-99) White Blood Count 13.1x10^3/uL (4.0-11.0) Red Blood Count 1.91x10^6/uL (4.30-5.70) Hemoglobin 5.7g/dL (13.0-17.5) Hematocrit 16.8% (39.0-53.0) Mean Corpuscular Volume 88fL (79-100) Mean Corpuscular Hemoglobin 30pg (25-35) Mean Corpuscular Hemoglobin Concent 34g/dL (31-37) Red Cell Distribution Width 13.8% (11.5-14.5) Platelet Count 108x10^3/uL (140-400) Test 11/29/16 00:03 11/29/16 06:20 11/29/16 06:26 Glucose (Fingerstick) 213mg/dL (70-99) 182mg/dL (70-99) White Blood Count 10.3x10^3/uL (4.0-11.0) Red Blood Count 2.27x10^6/uL (4.30-5.70) Hemoglobin 6.9g/dL (13.0-17.5) Hematocrit 20.3% (39.0-53.0) Mean Corpuscular Volume 90fL (79-100) Mean Corpuscular Hemoglobin 31pg (25-35) Mean Corpuscular Hemoglobin Concent 34g/dL (31-37) Red Cell Distribution Width 14.9% (11.5-14.5) Platelet Count 84x10^3/uL (140-400) Neutrophils (%) (Auto) 75% (31-73) Lymphocytes (%) (Auto) 9% (24-48) Monocytes (%) (Auto) 13% (0-9) Eosinophils (%) (Auto) 4% (0-3) Basophils (%) (Auto) 0% (0-3) Neutrophils # (Auto) 7.7x10^3uL (1.8-7.7) Lymphocytes # (Auto) 0.9x10^3/uL (1.0-4.8) Monocytes # (Auto) 1.3x10^3/uL (0.0-1.1) Eosinophils # (Auto) 0.4x10^3/uL (0.0-0.7) Basophils # (Auto) 0.0x10^3/uL (0.0-0.2) Sodium Level 145mmol/L (136-145) Potassium Level 3.9mmol/L (3.5-5.1) Chloride Level 109mmol/L (98-107) Carbon Dioxide Level 26mmol/L (21-32) Anion Gap 10 (6-14) Blood Urea Nitrogen 42mg/dL (8-26) Creatinine 2.1mg/dL (0.7-1.3) Estimated GFR (Cockcroft-Gault) 31.3 Glucose Level 196mg/dL (70-99) Calcium Level 7.8mg/dL (8.5-10.1) Phosphorus Level 3.1mg/dL (2.6-4.7) Magnesium Level 2.4mg/dL (1.8-2.4) Creatine Kinase 473U/L (39-308) Albumin 2.9g/dL (3.4-5.0) Laboratory Tests Test 11/28/16 12:24 11/28/16 15:00 11/28/16 16:05 11/28/16 16:50 O2 Saturation 96% (92-99) Arterial Blood pH 7.51 (7.35-7.45) Arterial Blood pCO2 at Patient Temp 32mmHg (35-46) Arterial Blood pO2 at Patient Temp 94mmHg (65-108) Arterial Blood HCO3 25mmol/L (21-28) Arterial Blood Base Excess 1mmol/L (-3-3) FiO2 50 Prothrombin Time 14.2SEC (11.7-14.0) Prothromb Time International Ratio 1.2 (0.8-1.1) Heparin Anti-Xa Act, Unfractionated 0.86IU/mL (0.30-0.70) Glucose (Fingerstick) 162mg/dL (70-99) White Blood Count 13.1x10^3/uL (4.0-11.0) Red Blood Count 1.91x10^6/uL (4.30-5.70) Hemoglobin 5.7g/dL (13.0-17.5) Hematocrit 16.8% (39.0-53.0) Mean Corpuscular Volume 88fL (79-100) Mean Corpuscular Hemoglobin 30pg (25-35) Mean Corpuscular Hemoglobin Concent 34g/dL (31-37) Red Cell Distribution Width 13.8% (11.5-14.5) Platelet Count 108x10^3/uL (140-400) Test 11/29/16 00:03 11/29/16 06:20 11/29/16 06:26 Glucose (Fingerstick) 213mg/dL (70-99) 182mg/dL (70-99) White Blood Count 10.3x10^3/uL (4.0-11.0) Red Blood Count 2.27x10^6/uL (4.30-5.70) Hemoglobin 6.9g/dL (13.0-17.5) Hematocrit 20.3% (39.0-53.0) Mean Corpuscular Volume 90fL (79-100) Mean Corpuscular Hemoglobin 31pg (25-35) Mean Corpuscular Hemoglobin Concent 34g/dL (31-37) Red Cell Distribution Width 14.9% (11.5-14.5) Platelet Count 84x10^3/uL (140-400) Neutrophils (%) (Auto) 75% (31-73) Lymphocytes (%) (Auto) 9% (24-48) Monocytes (%) (Auto) 13% (0-9) Eosinophils (%) (Auto) 4% (0-3) Basophils (%) (Auto) 0% (0-3) Neutrophils # (Auto) 7.7x10^3uL (1.8-7.7) Lymphocytes # (Auto) 0.9x10^3/uL (1.0-4.8) Monocytes # (Auto) 1.3x10^3/uL (0.0-1.1) Eosinophils # (Auto) 0.4x10^3/uL (0.0-0.7) Basophils # (Auto) 0.0x10^3/uL (0.0-0.2) Sodium Level 145mmol/L (136-145) Potassium Level 3.9mmol/L (3.5-5.1) Chloride Level 109mmol/L (98-107) Carbon Dioxide Level 26mmol/L (21-32) Anion Gap 10 (6-14) Blood Urea Nitrogen 42mg/dL (8-26) Creatinine 2.1mg/dL (0.7-1.3) Estimated GFR (Cockcroft-Gault) 31.3 Glucose Level 196mg/dL (70-99) Calcium Level 7.8mg/dL (8.5-10.1) Phosphorus Level 3.1mg/dL (2.6-4.7) Magnesium Level 2.4mg/dL (1.8-2.4) Creatine Kinase 473U/L (39-308) Albumin 2.9g/dL (3.4-5.0) Microbiology 11/28/16 Blood Culture - Preliminary, Resulted NO GROWTH AFTER 1 DAY 11/24/16 Stool Culture - Final, Resulted 11/24/16 Stool Culture Result 1 (ROSIE) - Final, Resulted 11/24/16 Campylobacter Antigen Assay - Preliminary, Resulted 11/24/16 Campylobactor Result 1 - Preliminary, Resulted 11/24/16 Shiga Toxin Test - Final, Resulted 11/25/16 Urine Culture - Final, Complete 11/25/16 Urine Culture Result 1 (ROSIE) - Final, Complete Medications Current Medications Sodium Chloride 1,000 ml @ 1,000 mls/hr Q1H IV Last administered on 11/24/16 06:50; Start 11/24/16 at 06:50; Stop 11/24/16 at 07:49; Status DC Epinephrine HCl/ Sodium Chloride (Adrenalin/Iv Sodium Chloride 0.9% 250ml) 254 ml @ 0 mls/hr CONT PRN IV SEE I/O RECORD Last administered on 11/26/16 03:05; Start 11/24/16 at 07:30; Stop 11/27/16 at 08:25; Status DC Insulin Aspart (Novolog) 0-7 UNITS TIDWMEALS SQ ; Start 11/24/16 at 08:00; Stop 11/24/16 at 15:36; Status DC Dextrose 12.5 gm 12.5 gm PRN Q15MIN PRN IV SEE COMMENTS; Start 11/24/16 at 07: 45; Stop 11/25/16 at 23:34; Status DC Sodium Chloride (Iv Sodium Chloride 0.9% 1000ml Bag) 1,000 ml @ 125 mls/hr 1X ONCE IV Last administered on 11/24/16 07:52; Start 11/24/16 at 08:00; Stop at 08:20; Status DC Vancomycin HCl (Vanco Per Pharmacy) 1 each PRN DAILY PRN MC SEE COMMENTS Last administered on 11/24/16 11:26; Start 11/24/16 at 08:15; Stop 11/24/16 at 13:06 ; Status DC Piperacillin Sod/ Tazobactam Sod 1 each 1 each PRN DAILY PRN MC SEE COMMENTS; Start 11/24/16 at 08:15; Stop 11/24/16 at 13:06; Status DC Sodium Bicarbonate 50 meq/Sodium Chloride 1,050 ml @ 125 mls/hr Q8H24M IV Last administered on 11/26/16 11:24; Start 11/24/16 at 08:30; Stop 11/26/16 at 12:41; Status DC Vancomycin HCl 2 gm/Sodium Chloride 500 ml @ 250 mls/hr ONCE ONCE IV Last administered on 11/24/16 10:15; Start 11/24/16 at 08:30; Stop 11/24/16 at 10:29 ; Status DC Piperacillin Sod/ Tazobactam Sod 4.5 gm/Sodium Chloride 100 ml @ 200 mls/hr Q6HRS IV Last administered on 11/24/16 10:10; Start 11/24/16 at 08:30; Stop at 11:15; Status DC Sodium Chloride (Iv Sodium Chloride 0.9% 1000ml Bag) 1,000 ml @ 1,000 mls/hr Q1H IV Last administered on 11/24/16 10:09; Start 11/24/16 at 08:39; Stop at 11:47; Status DC Fentanyl Citrate (Fentanyl 2ml Vial) 25 mcg PRN Q30MIN PRN IV SED; Start at 08:45 Lorazepam 1 mg 1 mg PRN Q30MIN PRN IV SEDATION Last administered on 11/25/16 12:26; Start 11/24/16 at 08:45; Stop 11/28/16 at 19:45; Status DC Fentanyl Citrate 30 ml @ 2.5 mls/hr CONT PRN PRN IV IVF Last administered on 07:40; Start 11/24/16 at 08:45; Stop 11/26/16 at 17:49; Status DC Propofol (Diprivan) 100 ml @ 0 mls/hr CONT PRN IV SEE I/O RECORD Last administered on 11/26/16 07:38; Start 11/24/16 at 08:45; Stop 11/26/16 at 17:49 ; Status DC Vecuronium [place] (Norcuron Bolus) 9 mg PRN Q30MIN PRN IV SHIVERING Last administered on 11/24/16 17:38; Start 11/24/16 at 08:45; Stop 11/26/16 at 17:49 ; Status DC Meperidine HCl (Demerol) 12.5 mg PRN Q30MIN PRN IV SHIVERING Last administered on 11/24/16 22:21; Start 11/24/16 at 08:45; Stop 11/24/16 at 22:21; Status DC Multi-Ingred Cream/Lotion/Oil/ Oint (Artificial Tears Eye Oint) 1 radha PRN Q6HRS PRN OU 0.5 INCH FOR DRY EYE; Start 11/24/16 at 08:45 Famotidine (Pepcid) 20 mg QHS IVP Last administered on 11/27/16 21:12; Start 11/24/16 at 21:00; Stop 11/28/16 at 09:46; Status DC Aspirin (Aspirin) 300 mg DAILY [place] Last administered on 11/28/16 11:26; Start 11/24/16 at 09:00 Sodium Chloride (Normal Saline Flush) 3 ml QSHIFT PRN IV AFTER MEDS AND BLOOD DRAWS; Start 11/24/16 at 08:45 Acetaminophen (Tylenol) 650 mg Q6HRS NG ; Start 11/24/16 at 12:00; Stop at 11:59; Status DC Acetaminophen (Tylenol) 650 mg PRN Q6HRS PRN [place] MILD PAIN / TEMP; Start at 08:45; Stop 11/25/16 at 23:35; Status DC Acetaminophen (Tylenol) 650 mg PRN Q6HRS PRN NG MILD PAIN / TEMP; Start at 08:45 Info 1 ea 1 ea DAILY PRN MC PER PROTOCOL; Start 11/26/16 at 08:45 Insulin Human Regular 150 unit/ Sodium Chloride 151.5 ml @ 9.16 mls/hr CONT PRN IV SEE I/O RECORD Last administered on 11/24/16 10:13; Start 11/24/16 at 09 :30; Stop 11/27/16 at 08:25; Status DC Piperacillin Sod/ Tazobactam Sod 3.375 gm/Sodium Chloride 50 ml @ 100 mls/hr Q6HRS IV ; Start 11/24/16 at 18:00; Stop 11/24/16 at 18:00; Status DC Vancomycin HCl/ Sodium Chloride (Iv Sodium Chloride 0.9% 500ml Bag) 500 ml @ 250 mls/hr Q24H IV ; Start 11/25/16 at 10:00; Stop 11/25/16 at 10:00; Status DC Vancomycin HCl 1 each 1 each 1X ONCE MC ; Start 11/26/16 at 09:30; Stop at 09:30; Status DC Sodium Chloride (Iv Sodium Chloride 0.9% 1000ml Bag) 1,000 ml @ 1,000 mls/hr 1X ONCE IV Last administered on 11/24/16 11:00; Start 11/24/16 at 11:00; Stop 11/24/16 at 11:59; Status DC Insulin Detemir (Levemir) 12 units QHS SQ ; Start 11/24/16 at 21:00; Stop at 21:00; Status DC Insulin Aspart (Novolog) 10 units 1X ONCE SQ ; Start 11/24/16 at 15:30; Stop at 20:10; Status DC Insulin Aspart (Novolog) 0-7 UNITS Q4HRS SQ ; Start 11/24/16 at 16:00; Stop at 20:10; Status DC Heparin Sodium (Porcine) 8100 unit 8,100 unit 1X ONCE IV Last administered on 11/24/16 17:24; Start 11/24/16 at 17:00; Stop 11/24/16 at 17:01; Status DC Heparin Sodium/ Dextrose 500 ml @ 0 mls/hr CONT PRN IV SEE I/O RECORD Last administered on 11/28/16 02:06; Start 11/24/16 at 16:45; Stop 11/28/16 at 17:12 ; Status DC Heparin Sodium (Porcine) 3,000 unit PRN Q6HRS PRN IV FOR UFH LEVEL LESS THAN 0.2; Start 11/24/16 at 16:45; Stop 11/28/16 at 17:12; Status DC Heparin Sodium (Porcine) 1,500 unit PRN Q6HRS PRN IV FOR UFH LEVEL 0.2 - 0.29 Last administered on 11/26/16 12:08; Start 11/24/16 at 16:45; Stop 11/28/16 at 17:12; Status DC Info 1 each 1 each PRN DAILY PRN MC SEE COMMENTS Last administered on 10:03; Start 11/24/16 at 17:00; Stop 11/28/16 at 17:13; Status DC Piperacillin Sod/ Tazobactam Sod 3.375 gm/Sodium Chloride 50 ml @ 100 mls/hr Q6HRS IV Last administered on 11/29/16 06:23; Start 11/25/16 at 00:00 Vancomycin HCl/ Sodium Chloride (Iv Sodium Chloride 0.9% 250ml) 250 ml @ 250 mls/hr 1X ONCE IV ; Start 11/24/16 at 21:30; Stop 11/24/16 at 22:29; Status UNV Vancomycin HCl 1 each 1 each PRN DAILY PRN MC SEE COMMENTS Last administered on 11/25/16 03:30; Start 11/25/16 at 01:00; Stop 11/25/16 at 08:57; Status DC Vancomycin HCl/ Sodium Chloride (Iv Sodium Chloride 0.9% 500ml Bag) 500 ml @ 250 mls/hr Q24H IV ; Start 11/25/16 at 10:00; Stop 11/25/16 at 10:00; Status DC Vancomycin HCl 1 each 1X ONCE MC ; Start 11/26/16 at 09:30; Stop 11/26/16 at 09 :30; Status DC Enoxaparin Sodium (Lovenox Per Pharmacy Prophylaxis Dosing) 1 each PRN DAILY PRN MC SEE COMMENTS; Start 11/25/16 at 08:45; Status UNV Chlorhexidine Gluconate 15 ml 15 ml BID MM Last administered on 11/26/16 08:37 ; Start 11/25/16 at 21:00; Stop 11/26/16 at 17:49; Status DC Magnesium Sulfate/ Dextrose 50 ml @ 25 mls/hr PRN DAILY PRN IV for Mag < 1.7 on am labs Last administered on 11/26/16 05:29; Start 11/25/16 at 09:45; Stop 11/27/16 at 08:47; Status DC Magnesium Sulfate/ Dextrose 50 ml @ 25 mls/hr PRN DAILY PRN IV for Mag < 1.7 on am labs; Start 11/25/16 at 09:45; Status UNV Sodium Chloride 500 ml @ 0 mls/hr QID PRN IV UO< 30cc/hr over previous 6hrs Last administered on 11/25/16 10:54; Start 11/25/16 at 09:45; Stop 11/27/16 at 11:25; Status DC Magnesium Sulfate/ Dextrose (Magnesium Sulfate PREMIX 2GM) 50 ml @ 25 mls/hr 1X ONCE IV Last administered on 11/25/16 13:28; Start 11/25/16 at 12:30; Stop 11/25/16 at 14:29; Status DC Lidocaine/Sodium Bicarbonate 20 ml 20 ml STK-MED ONCE IJ ; Start 11/25/16 at 12: 35; Stop 11/25/16 at 12:36; Status DC Heparin Sodium/ Sodium Chloride 500 ml @ As Directed STK-MED ONCE .ROUTE ; Start 11/25/16 at 12:35; Stop 11/25/16 at 12:36; Status DC Lidocaine/Sodium Bicarbonate (Buffered Lidocaine 1%) 3 ml 1X ONCE IJ Last administered on 11/25/16 13:15; Start 11/25/16 at 13:15; Stop 11/25/16 at 13:16 ; Status DC Heparin Sodium/ Sodium Chloride 60 unit 1X ONCE IV Last administered on 13:16; Start 11/25/16 at 13:15; Stop 11/25/16 at 13:16; Status DC Amiodarone HCl (Cordarone) 450 mg STK-MED ONCE .ROUTE ; Start 11/25/16 at 12:00 ; Stop 11/25/16 at 14:56; Status DC Epinephrine HCl (Adrenalin) 30 mg STK-MED ONCE .ROUTE ; Start 11/25/16 at 12:00 ; Stop 11/25/16 at 14:56; Status DC Atropine Sulfate 1.5 mg STK-MED ONCE .ROUTE ; Start 11/25/16 at 12:00; Stop at 14:56; Status DC Epinephrine HCl 4 mg STK-MED ONCE .ROUTE ; Start 11/25/16 at 12:00; Stop at 14:56; Status DC Sodium Bicarbonate 150 meq 150 meq STK-MED ONCE .ROUTE ; Start 11/25/16 at 12:00 ; Stop 11/25/16 at 14:56; Status DC Midazolam HCl (Versed 100mg/ 100ml Premix) 100 ml @ 0 mls/hr CONT PRN IV SEE I/ O RECORD; Start 11/25/16 at 23:30; Stop 11/26/16 at 17:49; Status DC Insulin Aspart (Novolog) 0-7 UNITS TIDWMEALS SQ Last administered on 11/27/16 19:43; Start 11/26/16 at 08:00; Stop 11/28/16 at 01:01; Status DC Dextrose 12.5 gm PRN Q15MIN PRN IV SEE COMMENTS; Start 11/25/16 at 23:30 Acetaminophen 650 mg 650 mg PRN Q6HRS PRN [place] MILD PAIN / TEMP Last administered on 11/28/16 04:19; Start 11/25/16 at 23:30 Potassium Chloride 50 ml @ 50 mls/hr Q1H IV Last administered on 11/26/16 11: 23; Start 11/26/16 at 10:30; Stop 11/26/16 at 12:29; Status DC Sodium Bicarbonate/ Sterile Water 1,100 ml @ 100 mls/hr Q11H IV Last administered on 11/27/16 00:56; Start 11/26/16 at 13:00; Stop 11/27/16 at 11:25 ; Status DC Info 1 each 1 each PRN DAILY PRN MC SEE COMMENTS Last administered on 08:51; Start 11/26/16 at 12:45 Calcium Chloride/ Sodium Chloride (Iv Sodium Chloride 0.9% 100ml) 120 ml @ 240 mls/hr 1X ONCE IV Last administered on 11/26/16 13:22; Start 11/26/16 at 13: 15; Stop 11/26/16 at 13:44; Status DC Ondansetron HCl 4 mg 4 mg PRN Q6HRS PRN IV NAUSEA/VOMITING Last administered on 11/26/16 13:56; Start 11/26/16 at 13:45 Sodium Chloride/ Potassium Chloride/ Magnesium Sulfate/ Calcium Gluconate/ Multivitamins/ Chromium/Copper/ Manganese/Seleni/ Zn/Total Parenteral Nutrition/ Amino Acids/Dextrose/ Fat Emulsion Intravenous (Sodium Chloride/ Infuvite Adult / Multitrace-5 Conc/ Tpn - Tpn Fluid/ Trophami... 1,594.468 ml @ 66.436 m... TPN CONT IV Last administered on 11/26/16 21:27; Start 11/26/16 at 22:00; Stop 11/27/16 at 21:59; Status DC Albuterol Sulfate 2.5 mg 2.5 mg 1X ONCE NEB Last administered on 11/27/16 07: 21; Start 11/27/16 at 06:45; Stop 11/27/16 at 06:46; Status DC Magnesium Sulfate/ Dextrose 50 ml @ 25 mls/hr PRN DAILY PRN IV for Mag < 1.7 on am labs; Start 11/27/16 at 08:45 Sodium Chloride 90 meq/Potassium Chloride 50 meq/ Magnesium Sulfate 10 meq/ Calcium Gluconate 10 meq/ Multivitamins 10 ml/Chromium/ Copper/Manganese/ Seleni /Zn 1 ml/ Total Parenteral Nutrition/Amino Acids/Dextrose/ Fat Emulsion Intravenous 1,594.468 ml @ 66.436 m... TPN CONT IV ; Start 11/27/16 at 22:00; Stop 11/28/16 at 21:59; Status Cancel Potassium Chloride/ Magnesium Sulfate/ Calcium Gluconate/ Multivitamins/ Chromium/Copper/ Manganese/Seleni/ Zn/Total Parenteral Nutrition/Amino Acids/ Dextrose/ Fat Emulsion Intravenous (Infuvite Adult/ Multitrace-5 Conc/ Tpn - Tpn Fluid/ Trophamine/ Dextrose 70%-Water Iv So... 1,512 ml @ 63 mls/hr TPN CONT IV Last administered on 11/27/16 21:22; Start 11/27/16 at 22:00; Stop at 21:59; Status DC Nitroglycerin 0.4 mg 0.4 mg STK-MED ONCE SL Last administered on 11/27/16 11: 26; Start 11/27/16 at 11:16; Stop 11/27/16 at 11:17; Status DC Albumin Human (Albuminar) 100 ml @ 100 mls/hr TID IV Last administered on 11/29 08:56; Start 11/27/16 at 12:00; Stop 11/29/16 at 09:59; Status DC Sodium Bicarbonate 50 meq 1X ONCE IV Last administered on 11/27/16 13:24; Start 11/27/16 at 12:45; Stop 11/27/16 at 12:46; Status DC Hydralazine HCl (Apresoline) 10 mg PRN Q4HRS PRN IVP ELEVATED BP, SEE COMMENTS Last administered on 11/28/16 00:40; Start 11/27/16 at 12:45 Metoprolol Tartrate (Lopressor) 5 mg Q6HRS IVP Last administered on 11/27/16 15:40; Start 11/27/16 at 15:30; Stop 11/27/16 at 19:11; Status DC Metoprolol Tartrate 5 mg 5 mg Q6HRS@04,10,16,22 IVP Last administered on 04:08; Start 11/27/16 at 22:00 Nicardipine HCl/ Sodium Chloride (Cardene/Iv Sodium Chloride 0.9% 250ml) 270 ml @ 0 mls/hr CONT PRN IV SEE I/O RECORD Last administered on 11/28/16 01:13; Start 11/27/16 at 20:45 Vancomycin HCl 1 each 1 each PRN DAILY PRN [facility] SEE COMMENTS Last administered on 11/27/16 21:38; Start 11/27/16 at 22:00; Stop 11/28/16 at 08:30; Status DC Vancomycin HCl 2 gm/Sodium Chloride 500 ml @ 250 mls/hr 1X ONCE IV Last administered on 11/27/16 22:57; Start 11/27/16 at 22:00; Stop 11/27/16 at 23:59 ; Status DC Vancomycin HCl/ Sodium Chloride (Iv Sodium Chloride 0.9% 500ml Bag) 500 ml @ 250 mls/hr Q24H IV ; Start 11/28/16 at 22:00; Stop 11/28/16 at 22:00; Status DC Vancomycin HCl 1 each 1X ONCE MC ; Start 11/29/16 at 21:30; Stop 11/29/16 at 21 :30; Status DC Insulin Aspart (Novolog) 0-7 UNITS Q6HRS SQ Last administered on 11/29/16 06: 42; Start 11/28/16 at 01:00 Linezolid 600 mg 600 mg BID PO ; Start 11/28/16 at 09:00; Stop 11/28/16 at 19:45 ; Status DC Pantoprazole Sodium/Sodium Chloride (Protonix Iv/Iv Sodium Chloride 0.9% 100ml) 100 ml @ 10 mls/hr Q10H PRN IV . Last administered on 11/28/16 21:57; Start 11/28/16 at 10:00 Ipratropium [place] (Atrovent) 0.5 mg RTQID NEB Last administered on 11/29/16 07:28; Start 11/28/16 at 12:00 Budesonide (Pulmicort) 0.5 mg RTBID NEB Last administered on 11/29/16 07:28; Start 11/28/16 at 20:00 Furosemide 40 mg 40 mg 1X ONCE IVP Last administered on 11/28/16 12:15; Start 11/28/16 at 12:15; Stop 11/28/16 at 12:16; Status DC Potassium Chloride/ Magnesium Sulfate/ Calcium Gluconate/ Multivitamins/ Chromium/Copper/ Manganese/Seleni/ Zn/Total Parenteral Nutrition/Amino Acids/ Dextrose/ Fat Emulsion Intravenous (Calcium Gluconate/ Infuvite Adult/ Multitrace-5 Conc/ Tpn - Tpn Fluid/ Trophami... 1,512 ml @ 63 mls/hr TPN CONT IV Last administered on 11/28/16 21:18; Start 11/28/16 at 22:00; Stop at 21:59 Lidocaine/Sodium Bicarbonate (Buffered Lidocaine 1%) 3 ml 1X ONCE IJ Last administered on 11/28/16 15:45; Start 11/28/16 at 14:45; Stop 11/28/16 at 14:46 ; Status DC Heparin Sodium/ Sodium Chloride 60 unit 1X ONCE IV Last administered on 15:45; Start 11/28/16 at 14:45; Stop 11/28/16 at 14:46; Status DC Heparin Sodium (Porcine) 2500 unit 2,500 unit 1X ONCE INT CAT Last administered on 11/28/16 15:45; Start 11/28/16 at 14:45; Stop 11/28/16 at 14:46 ; Status DC Linezolid 300 ml @ 300 mls/hr Q12HR IV Last administered on 11/29/16 08:56; Start 11/28/16 at 21:00 Potassium Chloride/ Potassium Acetate/ Magnesium Sulfate/ Calcium Gluconate/ Multivitamins/ Chromium/Copper/ Manganese/Seleni/ Zn/Total Parenteral Nutrition/ Amino Acids/Dextrose/ Fat Emulsion Intravenous (Calcium Gluconate/ Infuvite Adult/ Multitrace-5 Conc/ Tpn - Tpn Flu... 1,512 ml @ 63 mls/hr TPN CONT IV ; Start 11/29/16 at 22:00 Iohexol (Omnipaque 300 Mg/ml) 100 ml STK-MED ONCE .ROUTE ; Start 11/29/16 at 09: 12; Stop 11/29/16 at 09:13; Status DC Lidocaine/Sodium Bicarbonate 20 ml 20 ml STK-MED ONCE IJ ; Start 11/29/16 at 09: 12; Stop 11/29/16 at 09:13; Status DC Heparin Sodium/ Sodium Chloride 500 ml @ As Directed STK-MED ONCE .ROUTE ; Start 11/29/16 at 09:12; Stop 11/29/16 at 09:13; Status DC Lidocaine/Sodium Bicarbonate (Buffered Lidocaine 1%) 2 ml 1X ONCE IJ Last administered on 11/29/16 10:22; Start 11/29/16 at 10:00; Stop 11/29/16 at 10:15 ; Status DC Iohexol (Omnipaque 300 Mg/ml) 30 ml 1X ONCE IART Last administered on 10:22; Start 11/29/16 at 10:00; Stop 11/29/16 at 10:15; Status DC Heparin Sodium/ Sodium Chloride 1,000 unit 1X ONCE IV Last administered on 10:21; Start 11/29/16 at 10:00; Stop 11/29/16 at 10:15; Status DC Info (Do NOT chart on this entry -- for MONITORING) 1 each PRN DAILY PRN MC SEE COMMENTS; Start 11/29/16 at 10:30; Stop 12/01/16 at 10:29 Vitals/I & O Vital Sign - Last 24 Hours 11/28/16 11/28/16 11/28/16 11/28/16 11:00 11:28 12:00 12:00 Pulse 80 80 Resp 20 B/P 131/38 131/38 Pulse Ox 100 100 O2 Delivery BiPAP/CPAP Bi-pap BiPAP/CPAP 3/2411/28/16 11/28/16 11/28/16 12:00 13:00 13:10 13:20 Temp 98.6 98.5 99.0 98.6 98.5 99.0 Pulse 78 84 77 80 Resp 17 22 22 22 B/P 144/40 164/54 164/54 145/46 Pulse Ox 100 100 O2 Delivery BiPAP/CPAP BiPAP/CPAP 11/28/16 11/28/16 11/28/16 11/28/16 13:45 13:45 14:00 15:00 Temp 99.0 99.0 Pulse 75 78 94 Resp 21 B/P 150/47 144/54 164/54 Pulse Ox 99 98 10 O2 Delivery BiPAP/CPAP BiPAP/CPAP Simple Mask 11/28/16 11/28/16 11/28/16 11/28/16 15:35 16:00 16:00 16:00 Temp 98.6 98.6 Pulse 86 86 74 B/P 168/70 173/53 147/60 Pulse Ox 98 O2 Delivery Simple Mask Simple Mask O2 Flow Rate 10.0 11/28/16 11/28/16 11/28/16 11/28/16 16:00 16:15 16:30 16:30 Pulse 88 74 86 B/P 147/60 149/66 166/41 O2 Delivery Bi-pap Simple Mask Simple Mask Simple Mask 11/28/16 11/28/16 11/28/16 11/28/16 16:45 17:00 18:15 19:00 Temp 98.8 98.8 Pulse 68 70 69 84 Resp B/P 149/45 138/39 150/33 164/70 Pulse Ox 100 O2 Delivery Simple Mask Simple Mask Simple Mask Simple Mask O2 Flow Rate 10.0 11/28/16 11/28/16 11/28/16 11/28/16 20:00 20:00 20:10 21:00 Temp 98.7 98.7 Pulse 75 76 Resp 22 22 B/P 141/59 132/75 Pulse Ox 100 96 95 O2 Delivery Mask Simple Mask Simple Mask Simple Mask O2 Flow Rate 6.0 10.0 6.0 6.0 11/28/16 11/28/16 11/28/16 11/28/16 21:18 22:00 23:00 23:26 Pulse 76 72 77 Resp 20 16 B/P 132/45 135/70 126/63 Pulse Ox 100 100 100 O2 Delivery BiPAP/CPAP BiPAP/CPAP BiPAP/CPAP 11/29/16 11/29/16 11/29/16 11/29/16 00:00 00:00 01:00 01:40 Temp 99.7 99.7 Pulse 76 77 Resp 18 16 B/P 133/55 139/45 Pulse Ox 100 100 100 O2 Delivery Bi-pap BiPAP/CPAP BiPAP/CPAP BiPAP/CPAP 11/29/16 11/29/16 11/29/16 11/29/16 02:00 03:00 03:46 04:00 Pulse 79 78 Resp 17 18 B/P 140/56 124/44 Pulse Ox 99 100 100 O2 Delivery BiPAP/CPAP BiPAP/CPAP BiPAP/CPAP Bi-pap 11/29/16 11/29/16 11/29/16 11/29/16 04:00 04:08 05:00 06:00 Temp 97.9 97.9 Pulse 72 79 70 66 Resp 16 16 18 B/P 147/52 147/52 128/50 134/48 Pulse Ox 100 100 100 O2 Delivery BiPAP/CPAP BiPAP/CPAP BiPAP/CPAP 11/29/16 11/29/16 11/29/16 11/29/16 07:25 08:00 08:00 10:16 Pulse 77 Resp 21 B/P 142/47 Pulse Ox 98 99 O2 Delivery BiPAP/CPAP Bi-pap NonRebreather Mask O2 Flow Rate 6.0 15.0 Intake and Output 11/28/16 11/28/16 11/29/16 15:00 23:00 07:00 Intake Total 750 ml 820 ml 1611.4 ml Output Total 1250 ml 2410 ml 1200 ml Balance -500 ml -1590 ml 411.4 ml EVELYNE ANOTNIO MD Nov 29, 2016 10:58
--- NOTE | 2016-11-29 11:29 | PDOC ---
PROGRESS NOTES Subjective Subjective SEEN IN FOLLOW UP OF ARF Objective Objective Vital Signs Date Time Temp Pulse Resp B/P Pulse Ox O2 Delivery O2 Flow Rate FiO2 11/29/16 10:16 77 21 142/47 99 NonRebreather Mask 15.0 11/29/16 04:00 97.9 97.9 Intake and Output 11/29/16 07:00 Intake Total 3181.4 ml Output Total 4860 ml Balance -1678.6 ml Intake Oral 0 ml IV Total 1771.4 ml Blood Product 660 ml Blood Product IV Normal Saline Flush 750 ml Output Urine Total 4860 ml # Bowel Movements 2 Physical Exam Abdomen: Normal bowel sounds, Soft, No tenderness, No hepatosplenomegaly, No masses Heart: Regular rate, Normal S1, Normal S2, No murmurs, Gallops Extremities: Other (BLE EDEMA) General: Cooperative Lungs: Clear to auscultation, Normal air movement Diagnosis RENAL FAILURE: Acute (Acute tubular necrosis) Assessment Assessment Problems Medical Problems: (1) Cardiac arrest Status: Acute Plan Plan of Care ARF IS STABLE. NO EMERGENT NEED FOR DIALYSIS TODAY. WILL CONT TO FOLLOW FLUID BALANCE AND LAB Comment Review of Relevant I have reviewed the following items rodolfo (where applicable) has been applied. Labs Laboratory Tests Test 11/27/16 12:25 11/27/16 19:34 11/27/16 20:35 11/28/16 00:58 O2 Saturation 88% (92-99) 93% (92-99) Arterial Blood pH 7.47 (7.35-7.45) 7.55 (7.35-7.45) Arterial Blood pCO2 at Patient Temp 34mmHg (35-46) 31mmHg (35-46) Arterial Blood pO2 at Patient Temp 58mmHg (65-108) 63mmHg (65-108) Arterial Blood HCO3 24mmol/L (21-28) 26mmol/L (21-28) Arterial Blood Base Excess 1mmol/L (-3-3) 3mmol/L (-3-3) FiO2 60% 60 Glucose (Fingerstick) 211mg/dL (70-99) 228mg/dL (70-99) Arterial Blood pH (Temp corrected) 7.54 Arterial Blood pCO2 (Temp correct) 31mmHg Arterial Blood pO2 (Temp corrected) 65mmHg Test 11/28/16 05:42 11/28/16 06:05 11/28/16 08:00 11/28/16 09:50 Glucose (Fingerstick) 221mg/dL (70-99) White Blood Count 11.7x10^3/uL (4.0-11.0) 11.0x10^3/uL (4.0-11.0) Red Blood Count 1.16x10^6/uL (4.30-5.70) 1.39x10^6/uL (4.30-5.70) Hemoglobin 3.5g/dL (13.0-17.5) 4.2g/dL (13.0-17.5) Hematocrit 10.5% (39.0-53.0) 12.3% (39.0-53.0) Mean Corpuscular Volume 90fL (79-100) 89fL (79-100) Mean Corpuscular Hemoglobin 30pg (25-35) 31pg (25-35) Mean Corpuscular Hemoglobin Concent 33g/dL (31-37) 34g/dL (31-37) Red Cell Distribution Width 14.2% (11.5-14.5) 13.7% (11.5-14.5) Platelet Count 103x10^3/uL (140-400) 109x10^3/uL (140-400) Heparin Anti-Xa Act, Unfractionated > 1.10IU/mL (0.30-0.70) Sodium Level 141mmol/L (136-145) Potassium Level 3.9mmol/L (3.5-5.1) Chloride Level 106mmol/L (98-107) Carbon Dioxide Level 25mmol/L (21-32) Anion Gap 10 (6-14) Blood Urea Nitrogen 43mg/dL (8-26) Creatinine 2.6mg/dL (0.7-1.3) Estimated GFR (Cockcroft-Gault) 24.5 Glucose Level 228mg/dL (70-99) Calcium Level 7.6mg/dL (8.5-10.1) Phosphorus Level 3.1mg/dL (2.6-4.7) Magnesium Level 2.3mg/dL (1.8-2.4) Creatine Kinase 381U/L (39-308) Albumin 2.2g/dL (3.4-5.0) O2 Saturation 95% (92-99) Arterial Blood pH 7.53 (7.35-7.45) Arterial Blood pCO2 at Patient Temp 27mmHg (35-46) Arterial Blood pO2 at Patient Temp 85mmHg (65-108) Arterial Blood HCO3 22mmol/L (21-28) Arterial Blood Base Excess -1mmol/L (-3-3) FiO2 50 Test 11/28/16 12:24 11/28/16 15:00 11/28/16 16:05 11/28/16 16:50 O2 Saturation 96% (92-99) Arterial Blood pH 7.51 (7.35-7.45) Arterial Blood pCO2 at Patient Temp 32mmHg (35-46) Arterial Blood pO2 at Patient Temp 94mmHg (65-108) Arterial Blood HCO3 25mmol/L (21-28) Arterial Blood Base Excess 1mmol/L (-3-3) FiO2 50 Prothrombin Time 14.2SEC (11.7-14.0) Prothromb Time International Ratio 1.2 (0.8-1.1) Heparin Anti-Xa Act, Unfractionated 0.86IU/mL (0.30-0.70) Glucose (Fingerstick) 162mg/dL (70-99) White Blood Count 13.1x10^3/uL (4.0-11.0) Red Blood Count 1.91x10^6/uL (4.30-5.70) Hemoglobin 5.7g/dL (13.0-17.5) Hematocrit 16.8% (39.0-53.0) Mean Corpuscular Volume 88fL (79-100) Mean Corpuscular Hemoglobin 30pg (25-35) Mean Corpuscular Hemoglobin Concent 34g/dL (31-37) Red Cell Distribution Width 13.8% (11.5-14.5) Platelet Count 108x10^3/uL (140-400) Test 11/29/16 00:03 11/29/16 06:20 11/29/16 06:26 Glucose (Fingerstick) 213mg/dL (70-99) 182mg/dL (70-99) White Blood Count 10.3x10^3/uL (4.0-11.0) Red Blood Count 2.27x10^6/uL (4.30-5.70) Hemoglobin 6.9g/dL (13.0-17.5) Hematocrit 20.3% (39.0-53.0) Mean Corpuscular Volume 90fL (79-100) Mean Corpuscular Hemoglobin 31pg (25-35) Mean Corpuscular Hemoglobin Concent 34g/dL (31-37) Red Cell Distribution Width 14.9% (11.5-14.5) Platelet Count 84x10^3/uL (140-400) Neutrophils (%) (Auto) 75% (31-73) Lymphocytes (%) (Auto) 9% (24-48) Monocytes (%) (Auto) 13% (0-9) Eosinophils (%) (Auto) 4% (0-3) Basophils (%) (Auto) 0% (0-3) Neutrophils # (Auto) 7.7x10^3uL (1.8-7.7) Lymphocytes # (Auto) 0.9x10^3/uL (1.0-4.8) Monocytes # (Auto) 1.3x10^3/uL (0.0-1.1) Eosinophils # (Auto) 0.4x10^3/uL (0.0-0.7) Basophils # (Auto) 0.0x10^3/uL (0.0-0.2) Sodium Level 145mmol/L (136-145) Potassium Level 3.9mmol/L (3.5-5.1) Chloride Level 109mmol/L (98-107) Carbon Dioxide Level 26mmol/L (21-32) Anion Gap 10 (6-14) Blood Urea Nitrogen 42mg/dL (8-26) Creatinine 2.1mg/dL (0.7-1.3) Estimated GFR (Cockcroft-Gault) 31.3 Glucose Level 196mg/dL (70-99) Calcium Level 7.8mg/dL (8.5-10.1) Phosphorus Level 3.1mg/dL (2.6-4.7) Magnesium Level 2.4mg/dL (1.8-2.4) Creatine Kinase 473U/L (39-308) Albumin 2.9g/dL (3.4-5.0) Laboratory Tests Test 11/28/16 12:24 11/28/16 15:00 11/28/16 16:05 11/28/16 16:50 O2 Saturation 96% (92-99) Arterial Blood pH 7.51 (7.35-7.45) Arterial Blood pCO2 at Patient Temp 32mmHg (35-46) Arterial Blood pO2 at Patient Temp 94mmHg (65-108) Arterial Blood HCO3 25mmol/L (21-28) Arterial Blood Base Excess 1mmol/L (-3-3) FiO2 50 Prothrombin Time 14.2SEC (11.7-14.0) Prothromb Time International Ratio 1.2 (0.8-1.1) Heparin Anti-Xa Act, Unfractionated 0.86IU/mL (0.30-0.70) Glucose (Fingerstick) 162mg/dL (70-99) White Blood Count 13.1x10^3/uL (4.0-11.0) Red Blood Count 1.91x10^6/uL (4.30-5.70) Hemoglobin 5.7g/dL (13.0-17.5) Hematocrit 16.8% (39.0-53.0) Mean Corpuscular Volume 88fL (79-100) Mean Corpuscular Hemoglobin 30pg (25-35) Mean Corpuscular Hemoglobin Concent 34g/dL (31-37) Red Cell Distribution Width 13.8% (11.5-14.5) Platelet Count 108x10^3/uL (140-400) Test 11/29/16 00:03 11/29/16 06:20 11/29/16 06:26 Glucose (Fingerstick) 213mg/dL (70-99) 182mg/dL (70-99) White Blood Count 10.3x10^3/uL (4.0-11.0) Red Blood Count 2.27x10^6/uL (4.30-5.70) Hemoglobin 6.9g/dL (13.0-17.5) Hematocrit 20.3% (39.0-53.0) Mean Corpuscular Volume 90fL (79-100) Mean Corpuscular Hemoglobin 31pg (25-35) Mean Corpuscular Hemoglobin Concent 34g/dL (31-37) Red Cell Distribution Width 14.9% (11.5-14.5) Platelet Count 84x10^3/uL (140-400) Neutrophils (%) (Auto) 75% (31-73) Lymphocytes (%) (Auto) 9% (24-48) Monocytes (%) (Auto) 13% (0-9) Eosinophils (%) (Auto) 4% (0-3) Basophils (%) (Auto) 0% (0-3) Neutrophils # (Auto) 7.7x10^3uL (1.8-7.7) Lymphocytes # (Auto) 0.9x10^3/uL (1.0-4.8) Monocytes # (Auto) 1.3x10^3/uL (0.0-1.1) Eosinophils # (Auto) 0.4x10^3/uL (0.0-0.7) Basophils # (Auto) 0.0x10^3/uL (0.0-0.2) Sodium Level 145mmol/L (136-145) Potassium Level 3.9mmol/L (3.5-5.1) Chloride Level 109mmol/L (98-107) Carbon Dioxide Level 26mmol/L (21-32) Anion Gap 10 (6-14) Blood Urea Nitrogen 42mg/dL (8-26) Creatinine 2.1mg/dL (0.7-1.3) Estimated GFR (Cockcroft-Gault) 31.3 Glucose Level 196mg/dL (70-99) Calcium Level 7.8mg/dL (8.5-10.1) Phosphorus Level 3.1mg/dL (2.6-4.7) Magnesium Level 2.4mg/dL (1.8-2.4) Creatine Kinase 473U/L (39-308) Albumin 2.9g/dL (3.4-5.0) Microbiology 11/28/16 Blood Culture - Preliminary, Resulted NO GROWTH AFTER 1 DAY 11/24/16 Stool Culture - Final, Resulted 11/24/16 Stool Culture Result 1 (ROSIE) - Final, Resulted 11/24/16 Campylobacter Antigen Assay - Preliminary, Resulted 11/24/16 Campylobactor Result 1 - Preliminary, Resulted 11/24/16 Shiga Toxin Test - Final, Resulted 11/25/16 Urine Culture - Final, Complete 11/25/16 Urine Culture Result 1 (ROSIE) - Final, Complete Medications Current Medications Sodium Chloride 1,000 ml @ 1,000 mls/hr Q1H IV Last administered on 11/24/16 06:50; Start 11/24/16 at 06:50; Stop 11/24/16 at 07:49; Status DC Epinephrine HCl/ Sodium Chloride (Adrenalin/Iv Sodium Chloride 0.9% 250ml) 254 ml @ 0 mls/hr CONT PRN IV SEE I/O RECORD Last administered on 11/26/16 03:05; Start 11/24/16 at 07:30; Stop 11/27/16 at 08:25; Status DC Insulin Aspart (Novolog) 0-7 UNITS TIDWMEALS SQ ; Start 11/24/16 at 08:00; Stop 11/24/16 at 15:36; Status DC Dextrose 12.5 gm 12.5 gm PRN Q15MIN PRN IV SEE COMMENTS; Start 11/24/16 at 07: 45; Stop 11/25/16 at 23:34; Status DC Sodium Chloride (Iv Sodium Chloride 0.9% 1000ml Bag) 1,000 ml @ 125 mls/hr 1X ONCE IV Last administered on 11/24/16 07:52; Start 11/24/16 at 08:00; Stop at 08:20; Status DC Vancomycin HCl (Vanco Per Pharmacy) 1 each PRN DAILY PRN MC SEE COMMENTS Last administered on 11/24/16 11:26; Start 11/24/16 at 08:15; Stop 11/24/16 at 13:06 ; Status DC Piperacillin Sod/ Tazobactam Sod 1 each 1 each PRN DAILY PRN MC SEE COMMENTS; Start 11/24/16 at 08:15; Stop 11/24/16 at 13:06; Status DC Sodium Bicarbonate 50 meq/Sodium Chloride 1,050 ml @ 125 mls/hr Q8H24M IV Last administered on 11/26/16 11:24; Start 11/24/16 at 08:30; Stop 11/26/16 at 12:41; Status DC Vancomycin HCl 2 gm/Sodium Chloride 500 ml @ 250 mls/hr ONCE ONCE IV Last administered on 11/24/16 10:15; Start 11/24/16 at 08:30; Stop 11/24/16 at 10:29 ; Status DC Piperacillin Sod/ Tazobactam Sod 4.5 gm/Sodium Chloride 100 ml @ 200 mls/hr Q6HRS IV Last administered on 11/24/16 10:10; Start 11/24/16 at 08:30; Stop at 11:15; Status DC Sodium Chloride (Iv Sodium Chloride 0.9% 1000ml Bag) 1,000 ml @ 1,000 mls/hr Q1H IV Last administered on 11/24/16 10:09; Start 11/24/16 at 08:39; Stop at 11:47; Status DC Fentanyl Citrate (Fentanyl 2ml Vial) 25 mcg PRN Q30MIN PRN IV SED; Start at 08:45 Lorazepam 1 mg 1 mg PRN Q30MIN PRN IV SEDATION Last administered on 11/25/16 12:26; Start 11/24/16 at 08:45; Stop 11/28/16 at 19:45; Status DC Fentanyl Citrate 30 ml @ 2.5 mls/hr CONT PRN PRN IV IVF Last administered on 07:40; Start 11/24/16 at 08:45; Stop 11/26/16 at 17:49; Status DC Propofol (Diprivan) 100 ml @ 0 mls/hr CONT PRN IV SEE I/O RECORD Last administered on 11/26/16 07:38; Start 11/24/16 at 08:45; Stop 11/26/16 at 17:49 ; Status DC Vecuronium [place] (Norcuron Bolus) 9 mg PRN Q30MIN PRN IV SHIVERING Last administered on 11/24/16 17:38; Start 11/24/16 at 08:45; Stop 11/26/16 at 17:49 ; Status DC Meperidine HCl (Demerol) 12.5 mg PRN Q30MIN PRN IV SHIVERING Last administered on 11/24/16 22:21; Start 11/24/16 at 08:45; Stop 11/24/16 at 22:21; Status DC Multi-Ingred Cream/Lotion/Oil/ Oint (Artificial Tears Eye Oint) 1 radha PRN Q6HRS PRN OU 0.5 INCH FOR DRY EYE; Start 11/24/16 at 08:45 Famotidine (Pepcid) 20 mg QHS IVP Last administered on 11/27/16 21:12; Start 11/24/16 at 21:00; Stop 11/28/16 at 09:46; Status DC Aspirin (Aspirin) 300 mg DAILY [place] Last administered on 11/28/16 11:26; Start 11/24/16 at 09:00 Sodium Chloride (Normal Saline Flush) 3 ml QSHIFT PRN IV AFTER MEDS AND BLOOD DRAWS; Start 11/24/16 at 08:45 Acetaminophen (Tylenol) 650 mg Q6HRS NG ; Start 11/24/16 at 12:00; Stop at 11:59; Status DC Acetaminophen (Tylenol) 650 mg PRN Q6HRS PRN [place] MILD PAIN / TEMP; Start at 08:45; Stop 11/25/16 at 23:35; Status DC Acetaminophen (Tylenol) 650 mg PRN Q6HRS PRN NG MILD PAIN / TEMP; Start at 08:45 Info 1 ea 1 ea DAILY PRN MC PER PROTOCOL; Start 11/26/16 at 08:45 Insulin Human Regular 150 unit/ Sodium Chloride 151.5 ml @ 9.16 mls/hr CONT PRN IV SEE I/O RECORD Last administered on 11/24/16 10:13; Start 11/24/16 at 09 :30; Stop 11/27/16 at 08:25; Status DC Piperacillin Sod/ Tazobactam Sod 3.375 gm/Sodium Chloride 50 ml @ 100 mls/hr Q6HRS IV ; Start 11/24/16 at 18:00; Stop 11/24/16 at 18:00; Status DC Vancomycin HCl/ Sodium Chloride (Iv Sodium Chloride 0.9% 500ml Bag) 500 ml @ 250 mls/hr Q24H IV ; Start 11/25/16 at 10:00; Stop 11/25/16 at 10:00; Status DC Vancomycin HCl 1 each 1 each 1X ONCE MC ; Start 11/26/16 at 09:30; Stop at 09:30; Status DC Sodium Chloride (Iv Sodium Chloride 0.9% 1000ml Bag) 1,000 ml @ 1,000 mls/hr 1X ONCE IV Last administered on 11/24/16 11:00; Start 11/24/16 at 11:00; Stop 11/24/16 at 11:59; Status DC Insulin Detemir (Levemir) 12 units QHS SQ ; Start 11/24/16 at 21:00; Stop at 21:00; Status DC Insulin Aspart (Novolog) 10 units 1X ONCE SQ ; Start 11/24/16 at 15:30; Stop at 20:10; Status DC Insulin Aspart (Novolog) 0-7 UNITS Q4HRS SQ ; Start 11/24/16 at 16:00; Stop at 20:10; Status DC Heparin Sodium (Porcine) 8100 unit 8,100 unit 1X ONCE IV Last administered on 11/24/16 17:24; Start 11/24/16 at 17:00; Stop 11/24/16 at 17:01; Status DC Heparin Sodium/ Dextrose 500 ml @ 0 mls/hr CONT PRN IV SEE I/O RECORD Last administered on 11/28/16 02:06; Start 11/24/16 at 16:45; Stop 11/28/16 at 17:12 ; Status DC Heparin Sodium (Porcine) 3,000 unit PRN Q6HRS PRN IV FOR UFH LEVEL LESS THAN 0.2; Start 11/24/16 at 16:45; Stop 11/28/16 at 17:12; Status DC Heparin Sodium (Porcine) 1,500 unit PRN Q6HRS PRN IV FOR UFH LEVEL 0.2 - 0.29 Last administered on 11/26/16 12:08; Start 11/24/16 at 16:45; Stop 11/28/16 at 17:12; Status DC Info 1 each 1 each PRN DAILY PRN MC SEE COMMENTS Last administered on 10:03; Start 11/24/16 at 17:00; Stop 11/28/16 at 17:13; Status DC Piperacillin Sod/ Tazobactam Sod 3.375 gm/Sodium Chloride 50 ml @ 100 mls/hr Q6HRS IV Last administered on 11/29/16 06:23; Start 11/25/16 at 00:00 Vancomycin HCl/ Sodium Chloride (Iv Sodium Chloride 0.9% 250ml) 250 ml @ 250 mls/hr 1X ONCE IV ; Start 11/24/16 at 21:30; Stop 11/24/16 at 22:29; Status UNV Vancomycin HCl 1 each 1 each PRN DAILY PRN MC SEE COMMENTS Last administered on 11/25/16 03:30; Start 11/25/16 at 01:00; Stop 11/25/16 at 08:57; Status DC Vancomycin HCl/ Sodium Chloride (Iv Sodium Chloride 0.9% 500ml Bag) 500 ml @ 250 mls/hr Q24H IV ; Start 11/25/16 at 10:00; Stop 11/25/16 at 10:00; Status DC Vancomycin HCl 1 each 1X ONCE MC ; Start 11/26/16 at 09:30; Stop 11/26/16 at 09 :30; Status DC Enoxaparin Sodium (Lovenox Per Pharmacy Prophylaxis Dosing) 1 each PRN DAILY PRN MC SEE COMMENTS; Start 11/25/16 at 08:45; Status UNV Chlorhexidine Gluconate 15 ml 15 ml BID MM Last administered on 11/26/16 08:37 ; Start 11/25/16 at 21:00; Stop 11/26/16 at 17:49; Status DC Magnesium Sulfate/ Dextrose 50 ml @ 25 mls/hr PRN DAILY PRN IV for Mag < 1.7 on am labs Last administered on 11/26/16 05:29; Start 11/25/16 at 09:45; Stop 11/27/16 at 08:47; Status DC Magnesium Sulfate/ Dextrose 50 ml @ 25 mls/hr PRN DAILY PRN IV for Mag < 1.7 on am labs; Start 11/25/16 at 09:45; Status UNV Sodium Chloride 500 ml @ 0 mls/hr QID PRN IV UO< 30cc/hr over previous 6hrs Last administered on 11/25/16 10:54; Start 11/25/16 at 09:45; Stop 11/27/16 at 11:25; Status DC Magnesium Sulfate/ Dextrose (Magnesium Sulfate PREMIX 2GM) 50 ml @ 25 mls/hr 1X ONCE IV Last administered on 11/25/16 13:28; Start 11/25/16 at 12:30; Stop 11/25/16 at 14:29; Status DC Lidocaine/Sodium Bicarbonate 20 ml 20 ml STK-MED ONCE IJ ; Start 11/25/16 at 12: 35; Stop 11/25/16 at 12:36; Status DC Heparin Sodium/ Sodium Chloride 500 ml @ As Directed STK-MED ONCE .ROUTE ; Start 11/25/16 at 12:35; Stop 11/25/16 at 12:36; Status DC Lidocaine/Sodium Bicarbonate (Buffered Lidocaine 1%) 3 ml 1X ONCE IJ Last administered on 11/25/16 13:15; Start 11/25/16 at 13:15; Stop 11/25/16 at 13:16 ; Status DC Heparin Sodium/ Sodium Chloride 60 unit 1X ONCE IV Last administered on 13:16; Start 11/25/16 at 13:15; Stop 11/25/16 at 13:16; Status DC Amiodarone HCl (Cordarone) 450 mg STK-MED ONCE .ROUTE ; Start 11/25/16 at 12:00 ; Stop 11/25/16 at 14:56; Status DC Epinephrine HCl (Adrenalin) 30 mg STK-MED ONCE .ROUTE ; Start 11/25/16 at 12:00 ; Stop 11/25/16 at 14:56; Status DC Atropine Sulfate 1.5 mg STK-MED ONCE .ROUTE ; Start 11/25/16 at 12:00; Stop at 14:56; Status DC Epinephrine HCl 4 mg STK-MED ONCE .ROUTE ; Start 11/25/16 at 12:00; Stop at 14:56; Status DC Sodium Bicarbonate 150 meq 150 meq STK-MED ONCE .ROUTE ; Start 11/25/16 at 12:00 ; Stop 11/25/16 at 14:56; Status DC Midazolam HCl (Versed 100mg/ 100ml Premix) 100 ml @ 0 mls/hr CONT PRN IV SEE I/ O RECORD; Start 11/25/16 at 23:30; Stop 11/26/16 at 17:49; Status DC Insulin Aspart (Novolog) 0-7 UNITS TIDWMEALS SQ Last administered on 11/27/16 19:43; Start 11/26/16 at 08:00; Stop 11/28/16 at 01:01; Status DC Dextrose 12.5 gm PRN Q15MIN PRN IV SEE COMMENTS; Start 11/25/16 at 23:30 Acetaminophen 650 mg 650 mg PRN Q6HRS PRN [place] MILD PAIN / TEMP Last administered on 11/28/16 04:19; Start 11/25/16 at 23:30 Potassium Chloride 50 ml @ 50 mls/hr Q1H IV Last administered on 11/26/16 11: 23; Start 11/26/16 at 10:30; Stop 11/26/16 at 12:29; Status DC Sodium Bicarbonate/ Sterile Water 1,100 ml @ 100 mls/hr Q11H IV Last administered on 11/27/16 00:56; Start 11/26/16 at 13:00; Stop 11/27/16 at 11:25 ; Status DC Info 1 each 1 each PRN DAILY PRN MC SEE COMMENTS Last administered on 08:51; Start 11/26/16 at 12:45 Calcium Chloride/ Sodium Chloride (Iv Sodium Chloride 0.9% 100ml) 120 ml @ 240 mls/hr 1X ONCE IV Last administered on 11/26/16 13:22; Start 11/26/16 at 13: 15; Stop 11/26/16 at 13:44; Status DC Ondansetron HCl 4 mg 4 mg PRN Q6HRS PRN IV NAUSEA/VOMITING Last administered on 11/26/16 13:56; Start 11/26/16 at 13:45 Sodium Chloride/ Potassium Chloride/ Magnesium Sulfate/ Calcium Gluconate/ Multivitamins/ Chromium/Copper/ Manganese/Seleni/ Zn/Total Parenteral Nutrition/ Amino Acids/Dextrose/ Fat Emulsion Intravenous (Sodium Chloride/ Infuvite Adult / Multitrace-5 Conc/ Tpn - Tpn Fluid/ Trophami... 1,594.468 ml @ 66.436 m... TPN CONT IV Last administered on 11/26/16 21:27; Start 11/26/16 at 22:00; Stop 11/27/16 at 21:59; Status DC Albuterol Sulfate 2.5 mg 2.5 mg 1X ONCE NEB Last administered on 11/27/16 07: 21; Start 11/27/16 at 06:45; Stop 11/27/16 at 06:46; Status DC Magnesium Sulfate/ Dextrose 50 ml @ 25 mls/hr PRN DAILY PRN IV for Mag < 1.7 on am labs; Start 11/27/16 at 08:45 Sodium Chloride 90 meq/Potassium Chloride 50 meq/ Magnesium Sulfate 10 meq/ Calcium Gluconate 10 meq/ Multivitamins 10 ml/Chromium/ Copper/Manganese/ Seleni /Zn 1 ml/ Total Parenteral Nutrition/Amino Acids/Dextrose/ Fat Emulsion Intravenous 1,594.468 ml @ 66.436 m... TPN CONT IV ; Start 11/27/16 at 22:00; Stop 11/28/16 at 21:59; Status Cancel Potassium Chloride/ Magnesium Sulfate/ Calcium Gluconate/ Multivitamins/ Chromium/Copper/ Manganese/Seleni/ Zn/Total Parenteral Nutrition/Amino Acids/ Dextrose/ Fat Emulsion Intravenous (Infuvite Adult/ Multitrace-5 Conc/ Tpn - Tpn Fluid/ Trophamine/ Dextrose 70%-Water Iv So... 1,512 ml @ 63 mls/hr TPN CONT IV Last administered on 11/27/16 21:22; Start 11/27/16 at 22:00; Stop at 21:59; Status DC Nitroglycerin 0.4 mg 0.4 mg STK-MED ONCE SL Last administered on 11/27/16 11: 26; Start 11/27/16 at 11:16; Stop 11/27/16 at 11:17; Status DC Albumin Human (Albuminar) 100 ml @ 100 mls/hr TID IV Last administered on 11/29 08:56; Start 11/27/16 at 12:00; Stop 11/29/16 at 09:59; Status DC Sodium Bicarbonate 50 meq 1X ONCE IV Last administered on 11/27/16 13:24; Start 11/27/16 at 12:45; Stop 11/27/16 at 12:46; Status DC Hydralazine HCl (Apresoline) 10 mg PRN Q4HRS PRN IVP ELEVATED BP, SEE COMMENTS Last administered on 11/28/16 00:40; Start 11/27/16 at 12:45 Metoprolol Tartrate (Lopressor) 5 mg Q6HRS IVP Last administered on 11/27/16 15:40; Start 11/27/16 at 15:30; Stop 11/27/16 at 19:11; Status DC Metoprolol Tartrate 5 mg 5 mg Q6HRS@04,10,16,22 IVP Last administered on 04:08; Start 11/27/16 at 22:00 Nicardipine HCl/ Sodium Chloride (Cardene/Iv Sodium Chloride 0.9% 250ml) 270 ml @ 0 mls/hr CONT PRN IV SEE I/O RECORD Last administered on 11/28/16 01:13; Start 11/27/16 at 20:45 Vancomycin HCl 1 each 1 each PRN DAILY PRN MC SEE COMMENTS Last administered on 11/27/16 21:38; Start 11/27/16 at 22:00; Stop 11/28/16 at 08:30; Status DC Vancomycin HCl 2 gm/Sodium Chloride 500 ml @ 250 mls/hr 1X ONCE IV Last administered on 11/27/16 22:57; Start 11/27/16 at 22:00; Stop 11/27/16 at 23:59 ; Status DC Vancomycin HCl/ Sodium Chloride (Iv Sodium Chloride 0.9% 500ml Bag) 500 ml @ 250 mls/hr Q24H IV ; Start 11/28/16 at 22:00; Stop 11/28/16 at 22:00; Status DC Vancomycin HCl 1 each 1X ONCE MC ; Start 11/29/16 at 21:30; Stop 11/29/16 at 21 :30; Status DC Insulin Aspart (Novolog) 0-7 UNITS Q6HRS SQ Last administered on 11/29/16 06: 42; Start 11/28/16 at 01:00 Linezolid 600 mg 600 mg BID PO ; Start 11/28/16 at 09:00; Stop 11/28/16 at 19:45 ; Status DC Pantoprazole Sodium/Sodium Chloride (Protonix Iv/Iv Sodium Chloride 0.9% 100ml) 100 ml @ 10 mls/hr Q10H PRN IV . Last administered on 11/28/16 21:57; Start 11/28/16 at 10:00 Ipratropium [place] (Atrovent) 0.5 mg RTQID NEB Last administered on 11/29/16 07:28; Start 11/28/16 at 12:00 Budesonide (Pulmicort) 0.5 mg RTBID NEB Last administered on 11/29/16 07:28; Start 11/28/16 at 20:00 Furosemide 40 mg 40 mg 1X ONCE IVP Last administered on 11/28/16 12:15; Start 11/28/16 at 12:15; Stop 11/28/16 at 12:16; Status DC Potassium Chloride/ Magnesium Sulfate/ Calcium Gluconate/ Multivitamins/ Chromium/Copper/ Manganese/Seleni/ Zn/Total Parenteral Nutrition/Amino Acids/ Dextrose/ Fat Emulsion Intravenous (Calcium Gluconate/ Infuvite Adult/ Multitrace-5 Conc/ Tpn - Tpn Fluid/ Trophami... 1,512 ml @ 63 mls/hr TPN CONT IV Last administered on 11/28/16 21:18; Start 11/28/16 at 22:00; Stop at 21:59 Lidocaine/Sodium Bicarbonate (Buffered Lidocaine 1%) 3 ml 1X ONCE IJ Last administered on 11/28/16 15:45; Start 11/28/16 at 14:45; Stop 11/28/16 at 14:46 ; Status DC Heparin Sodium/ Sodium Chloride 60 unit 1X ONCE IV Last administered on 15:45; Start 11/28/16 at 14:45; Stop 11/28/16 at 14:46; Status DC Heparin Sodium (Porcine) 2500 unit 2,500 unit 1X ONCE INT CAT Last administered on 11/28/16 15:45; Start 11/28/16 at 14:45; Stop 11/28/16 at 14:46 ; Status DC Linezolid 300 ml @ 300 mls/hr Q12HR IV Last administered on 11/29/16 08:56; Start 11/28/16 at 21:00 Potassium Chloride/ Potassium Acetate/ Magnesium Sulfate/ Calcium Gluconate/ Multivitamins/ Chromium/Copper/ Manganese/Seleni/ Zn/Total Parenteral Nutrition/ Amino Acids/Dextrose/ Fat Emulsion Intravenous (Calcium Gluconate/ Infuvite Adult/ Multitrace-5 Conc/ Tpn - Tpn Flu... 1,512 ml @ 63 mls/hr TPN CONT IV ; Start 11/29/16 at 22:00; Stop 11/30/16 at 21:59 Iohexol (Omnipaque 300 Mg/ml) 100 ml STK-MED ONCE .ROUTE ; Start 11/29/16 at 09: 12; Stop 11/29/16 at 09:13; Status DC Lidocaine/Sodium Bicarbonate 20 ml 20 ml STK-MED ONCE IJ ; Start 11/29/16 at 09: 12; Stop 11/29/16 at 09:13; Status DC Heparin Sodium/ Sodium Chloride 500 ml @ As Directed STK-MED ONCE .ROUTE ; Start 11/29/16 at 09:12; Stop 11/29/16 at 09:13; Status DC Lidocaine/Sodium Bicarbonate (Buffered Lidocaine 1%) 2 ml 1X ONCE IJ Last administered on 11/29/16 10:22; Start 11/29/16 at 10:00; Stop 11/29/16 at 10:15 ; Status DC Iohexol (Omnipaque 300 Mg/ml) 30 ml 1X ONCE IART Last administered on 10:22; Start 11/29/16 at 10:00; Stop 11/29/16 at 10:15; Status DC Heparin Sodium/ Sodium Chloride 1,000 unit 1X ONCE IV Last administered on 10:21; Start 11/29/16 at 10:00; Stop 11/29/16 at 10:15; Status DC Info (Do NOT chart on this entry -- for MONITORING) 1 each PRN DAILY PRN MC SEE COMMENTS; Start 11/29/16 at 10:30; Stop 12/01/16 at 10:29 Vitals/I & O Vital Sign - Last 24 Hours 11/28/16 11/28/16 11/28/16 11/28/16 11:28 12:00 12:00 12:00 Temp 98.6 98.6 Pulse 80 78 Resp 17 B/P 131/38 144/40 Pulse Ox 100 100 O2 Delivery Bi-pap BiPAP/CPAP BiPAP/CPAP 11/28/16 11/28/16 11/28/16 11/28/16 13:00 13:10 13:20 13:45 Temp 98.5 99.0 98.5 99.0 Pulse 84 77 80 Resp 22 22 22 B/P 164/54 164/54 145/46 Pulse Ox 100 99 O2 Delivery BiPAP/CPAP BiPAP/CPAP 11/28/16 11/28/16 11/28/16 11/28/16 13:45 14:00 15:00 15:35 Temp 99.0 99.0 Pulse 75 78 94 Resp 21 B/P 150/47 144/54 164/54 Pulse Ox 98 10 98 O2 Delivery BiPAP/CPAP Simple Mask Simple Mask O2 Flow Rate 10.0 11/28/16 11/28/16 11/28/16 11/28/16 16:00 16:00 16:00 16:00 Temp 98.6 98.6 Pulse 86 86 74 B/P 168/70 173/53 147/60 O2 Delivery Simple Mask Bi-pap 11/28/16 11/28/16 11/28/16 11/28/16 16:15 16:30 16:30 16:45 Pulse 88 74 86 68 B/P 147/60 149/66 166/41 149/45 O2 Delivery Simple Mask Simple Mask Simple Mask Simple Mask 11/28/16 11/28/16 11/28/16 11/28/16 17:00 18:15 19:00 20:00 Temp 98.8 98.8 Pulse 70 69 84 Resp 22 B/P 138/39 150/33 164/70 Pulse Ox 100 O2 Delivery Simple Mask Simple Mask Simple Mask Mask O2 Flow Rate 10.0 6.0 11/28/16 11/28/16 11/28/16 11/28/16 20:00 20:10 21:00 21:18 Temp 98.7 98.7 Pulse 75 76 76 Resp 22 22 B/P 141/59 132/75 132/45 Pulse Ox 100 96 95 O2 Delivery Simple Mask Simple Mask Simple Mask O2 Flow Rate 10.0 6.0 6.0 11/28/16 11/28/16 11/28/16 11/29/16 22:00 23:00 23:26 00:00 Pulse 72 77 Resp 20 16 B/P 135/70 126/63 Pulse Ox 100 100 100 O2 Delivery BiPAP/CPAP BiPAP/CPAP BiPAP/CPAP Bi-pap 11/29/16 11/29/16 11/29/16 11/29/16 00:00 01:00 01:40 02:00 Temp 99.7 99.7 Pulse 76 77 79 Resp 18 16 17 B/P 133/55 139/45 140/56 Pulse Ox 100 100 100 99 O2 Delivery BiPAP/CPAP BiPAP/CPAP BiPAP/CPAP BiPAP/CPAP 11/29/16 11/29/16 11/29/16 11/29/16 03:00 03:46 04:00 04:00 Temp 97.9 97.9 Pulse 78 72 Resp 18 16 B/P 124/44 147/52 Pulse Ox 100 100 100 O2 Delivery BiPAP/CPAP BiPAP/CPAP Bi-pap BiPAP/CPAP 11/29/16 11/29/16 11/29/16 11/29/16 04:08 05:00 06:00 07:25 Pulse 79 70 66 Resp 16 18 B/P 147/52 128/50 134/48 Pulse Ox 100 100 98 O2 Delivery BiPAP/CPAP BiPAP/CPAP BiPAP/CPAP 11/29/16 11/29/16 11/29/16 08:00 08:00 10:16 Pulse 77 Resp 21 B/P 142/47 Pulse Ox 99 O2 Delivery Bi-pap NonRebreather Mask O2 Flow Rate 6.0 15.0 Intake and Output 11/28/16 11/28/16 11/29/16 15:00 23:00 07:00 Intake Total 750 ml 820 ml 1611.4 ml Output Total 1250 ml 2410 ml 1200 ml Balance -500 ml -1590 ml 411.4 ml MADAY LOPEZ MD Nov 29, 2016 11:29
--- NOTE | 2016-11-29 12:23 | PDOC ---
Subjective: Subjective: To receive blood today. IVC filter placed Objective: Vital Signs: Vital Signs Date Time Temp Pulse Resp B/P Pulse Ox O2 Delivery O2 Flow Rate FiO2 11/29/16 11:57 100 BiPAP/CPAP 11/29/16 10:16 77 21 142/47 15.0 11/29/16 04:00 97.9 97.9 Labs: Laboratory Tests Test 11/28/16 12:24 11/28/16 15:00 11/28/16 16:05 11/28/16 16:50 O2 Saturation 96% (92-99) Arterial Blood pH 7.51 (7.35-7.45) Arterial Blood pCO2 at Patient Temp 32mmHg (35-46) Arterial Blood pO2 at Patient Temp 94mmHg (65-108) Arterial Blood HCO3 25mmol/L (21-28) Arterial Blood Base Excess 1mmol/L (-3-3) FiO2 50 Prothrombin Time 14.2SEC (11.7-14.0) Prothromb Time International Ratio 1.2 (0.8-1.1) Heparin Anti-Xa Act, Unfractionated 0.86IU/mL (0.30-0.70) Glucose (Fingerstick) 162mg/dL (70-99) White Blood Count 13.1x10^3/uL (4.0-11.0) Red Blood Count 1.91x10^6/uL (4.30-5.70) Hemoglobin 5.7g/dL (13.0-17.5) Hematocrit 16.8% (39.0-53.0) Mean Corpuscular Volume 88fL (79-100) Mean Corpuscular Hemoglobin 30pg (25-35) Mean Corpuscular Hemoglobin Concent 34g/dL (31-37) Red Cell Distribution Width 13.8% (11.5-14.5) Platelet Count 108x10^3/uL (140-400) Test 11/29/16 00:03 11/29/16 06:20 11/29/16 06:26 Glucose (Fingerstick) 213mg/dL (70-99) 182mg/dL (70-99) White Blood Count 10.3x10^3/uL (4.0-11.0) Red Blood Count 2.27x10^6/uL (4.30-5.70) Hemoglobin 6.9g/dL (13.0-17.5) Hematocrit 20.3% (39.0-53.0) Mean Corpuscular Volume 90fL (79-100) Mean Corpuscular Hemoglobin 31pg (25-35) Mean Corpuscular Hemoglobin Concent 34g/dL (31-37) Red Cell Distribution Width 14.9% (11.5-14.5) Platelet Count 84x10^3/uL (140-400) Neutrophils (%) (Auto) 75% (31-73) Lymphocytes (%) (Auto) 9% (24-48) Monocytes (%) (Auto) 13% (0-9) Eosinophils (%) (Auto) 4% (0-3) Basophils (%) (Auto) 0% (0-3) Neutrophils # (Auto) 7.7x10^3uL (1.8-7.7) Lymphocytes # (Auto) 0.9x10^3/uL (1.0-4.8) Monocytes # (Auto) 1.3x10^3/uL (0.0-1.1) Eosinophils # (Auto) 0.4x10^3/uL (0.0-0.7) Basophils # (Auto) 0.0x10^3/uL (0.0-0.2) Sodium Level 145mmol/L (136-145) Potassium Level 3.9mmol/L (3.5-5.1) Chloride Level 109mmol/L (98-107) Carbon Dioxide Level 26mmol/L (21-32) Anion Gap 10 (6-14) Blood Urea Nitrogen 42mg/dL (8-26) Creatinine 2.1mg/dL (0.7-1.3) Estimated GFR (Cockcroft-Gault) 31.3 Glucose Level 196mg/dL (70-99) Calcium Level 7.8mg/dL (8.5-10.1) Phosphorus Level 3.1mg/dL (2.6-4.7) Magnesium Level 2.4mg/dL (1.8-2.4) Creatine Kinase 473U/L (39-308) Albumin 2.9g/dL (3.4-5.0) Physical Exam: Physical Exam: Did not examine. Clergy with patient and family Assessment & Plan: Assessment : 1) Anemia Plan: Hgb improved PRBCs today CT without evidence of retroperitoneal bleed. Physical exam suggestive of bleeding on flank Problems: BETH ARNDT MD Nov 29, 2016 12:22
[2016-11-29 12:27] LABS: PARTIAL THROMBOPLASTIN TIME 31 SEC (24-38)
[2016-11-29] MEDS ORDERED: HEPARIN 25,000UTS/500ML PREMIX 500 ML IV PRN (15:15)
[2016-11-29 21:20] LABS: HEMATOCRIT 23.5 % (39.0-53.0)
[2016-11-29] MEDS ORDERED: TOTAL PARENTERAL NUTRITION IV SCH ×9 (22:00)
[2016-11-29] MEDS ORDERED: DEXTROSE 70% IV SCH ×9 (22:00)
[2016-11-29] MEDS ORDERED: [UNRECOGNIZED DRUG - OTHER] IV SCH ×9 (22:00)
[2016-11-29] MEDS ORDERED: AMINO ACIDS IV SCH ×9 (22:00)
[2016-11-30] VITALS (24 sets, daily range): BP systolic 106–191; BP diastolic 44–73
[2016-11-30] MEDS: PIPERACILLIN/TAZOBACTAM 3.375 GM in IV NORMAL SALINE 50ML 50 ML IV SCH ×4 (00:14→17:17)
[2016-11-30] MEDS: INSULIN ASPART 300 UNITS/3 ML INSULN.PEN SQ SCH ×4 (00:16→17:19)
[2016-11-30] MEDS: METOPROLOL TARTRATE 5 MG/5 ML VIAL. IVP SCH ×4 (04:21→21:03)
[2016-11-30] MEDS: PANTOPRAZOLE SODIUM IV 80 MG in IV NORMAL SALINE 100ML 100 ML IV PRN ×2 (04:21→15:00)
[2016-11-30 05:27] LABS: HEMOGLOBIN 7.7 g/dL (13.0-17.5); RED BLOOD COUNT 2.54 x10^6/uL (4.30-5.70); RED CELL DISTRIBUTION WIDTH 15.4 % (11.5-14.5); WHITE BLOOD COUNT 9.6 x10^3/uL (4.0-11.0)
[2016-11-30 05:28] LABS: ALBUMIN 2.7 g/dL (3.4-5.0); CALCIUM 7.8 mg/dL (8.5-10.1); CREATININE 1.8 mg/dL (0.7-1.3); GFR 37.4; PHOSPHORUS 2.8 mg/dL (2.6-4.7); POTASSIUM 3.9 mmol/L (3.5-5.1)
[2016-11-30] MEDS: ASPIRIN 300 MG SUPP.RECT PR SCH (07:38)
[2016-11-30] MEDS: BUDESONIDE 0.5 MG/2 ML NEBU. NEB SCH ×2 (08:12→20:20)
[2016-11-30] MEDS: IPRATROPIUM BROMIDE 0.5 MG/2.5 ML NEBU. NEB SCH ×4 (08:12→20:20)
[2016-11-30] MEDS: HEPARIN 25,000UTS/500ML PREMIX 500 ML IV PRN (09:26)
--- NOTE | 2016-11-30 09:49 | PDOC ---
Infectious Disease Note Subjective Subjective Currently off biPAP TPN Denies pain, SOA, upset stomach Fever Tmax 100.3 Vital Sign Vital Signs Vital Signs Date Time Temp Pulse Resp B/P Pulse Ox O2 Delivery O2 Flow Rate FiO2 11/30/16 09:00 66 19 169/61 100 Nasal Cannula 6.0 11/30/16 08:00 98.3 98.3 Physical Exam PHYSICAL EXAM GENERAL: Sitting up in the chair, NAD HEENT: Oral cavity dry. NGT LUNGS: Diminished aeration bases HEART: S1S2, no gallop, no murmur ABD: Soft, NT : Pal EXT: Pedal edema. CONTACT OFFICER: Lethargic, opens eyes to voice, voice soft, disoriented X 4. SKIN: Pale RIJ/HD. (11/28). clean Labs Lab Laboratory Tests Test 11/29/16 12:12 11/29/16 12:25 11/29/16 17:49 11/29/16 20:39 Activated Partial Thromboplast Time 31SEC (24-38) 41SEC (24-38) Heparin Anti-Xa Act, Unfractionated < 0.10IU/mL (0.30-0.70) Glucose (Fingerstick) 235mg/dL (70-99) 198mg/dL (70-99) Hemoglobin 8.0g/dL (13.0-17.5) Hematocrit 23.5% (39.0-53.0) Test 11/29/16 20:57 11/30/16 00:13 11/30/16 04:30 Heparin Anti-Xa Act, Unfractionated < 0.10IU/mL (0.30-0.70) 0.17IU/mL (0.30-0.70) Glucose (Fingerstick) 246mg/dL (70-99) White Blood Count 9.6x10^3/uL (4.0-11.0) Red Blood Count 2.54x10^6/uL (4.30-5.70) Hemoglobin 7.7g/dL (13.0-17.5) Hematocrit 22.0% (39.0-53.0) Mean Corpuscular Volume 87fL (79-100) Mean Corpuscular Hemoglobin 30pg (25-35) Mean Corpuscular Hemoglobin Concent 35g/dL (31-37) Red Cell Distribution Width 15.4% (11.5-14.5) Platelet Count 70x10^3/uL (140-400) Sodium Level 145mmol/L (136-145) Potassium Level 3.9mmol/L (3.5-5.1) Chloride Level 109mmol/L (98-107) Carbon Dioxide Level 27mmol/L (21-32) Anion Gap 9 (6-14) Blood Urea Nitrogen 41mg/dL (8-26) Creatinine 1.8mg/dL (0.7-1.3) Estimated GFR (Cockcroft-Gault) 37.4 Glucose Level 240mg/dL (70-99) Calcium Level 7.8mg/dL (8.5-10.1) Phosphorus Level 2.8mg/dL (2.6-4.7) Magnesium Level 2.3mg/dL (1.8-2.4) Creatine Kinase 286U/L (39-308) Albumin 2.7g/dL (3.4-5.0) 11/29. Chest x-ray There has been interval worsening. There is now volume loss in the right upper lobe compatible with atelectasis or pneumonia. There are suspect superimposed background changes of mild congestive heart failure. There are probable small pleural effusions. There has been interval placement of a right-sided dialysis catheter. No pneumothorax is seen. IMPRESSION: Interval worsening. There is now volume loss in the right upper lobe compatible with atelectasis or pneumonia. There are suspect background changes of congestive heart failure. Probable small pleural effusions. Interval placement of right-sided dialysis catheter. No complication seen Micro URINE CULTURE RES 1 Final No growth in 48 hours. BLD CULT RESULT 1 Preliminary (1 of 4 bottles) Gram positive cocci Beta lactamase negative. Objective Assessment Fever, possibly reactive from PRBCs and procedure S/P VT/VF Cardiac arrest DVT/PE. s/p IVC filter. 11/29 Suspected ischemic bowel Lactic acidosis Leukocytosis likely reactive GPC bacteremia. likely anaerobe per micro [place] Respiratory failure. Anemia. s/p PRBCs Plan Plan of Care Zyvox and Zosyn Await GPC ID. Repeat BC NGTD Monitor temp Supportive care Patient seen and examined. Chart reviewed. Case discussed with PUBLICATION SPECIALIST. CT result viewed. Agree with above plan. GPC not yet identified. DENYS ALVARENGA APRN Nov 30, 2016 09:49 RONEY PETIT MD Nov 30, 2016 16:11
--- NOTE | 2016-11-30 09:50 | RAD ---
Indication follow-up atelectasis. Difficulty breathing. A single view of the chest was obtained and is compared to a study one day earlier. Heart size and pulmonary vessels are similar. Aeration of the right upper lobe has improved somewhat relative to the previous exam. Some volume loss, compatible with atelectasis or pneumonia, persists. There are probable small pleural effusions which appear similar. A new finding in the chest is not seen. Right IJ catheter and right-sided dialysis catheter are noted. IMPRESSION: Slight improvement in aeration of the right upper lobe. A new finding in the chest is not seen
--- NOTE | 2016-11-30 09:51 | RAD ---
Indication assess nasogastric tube placement. A single view targeted to the lower chest and upper abdomen was obtained. The abdominal gas pattern appears within normal limits. IVC filter and gallstones are noted. Nasogastric tube is noted. The tip is positioned either in the antrum or first portion of the duodenum. IMPRESSION: NG tube tube with its tip in the antrum or first portion of the duodenum
--- NOTE | 2016-11-30 10:02 | RAD ---
Indication assess nasogastric tube placement. A single view targeted to the lower chest and upper abdomen was obtained. The abdominal gas pattern is normal. Cholelithiasis and an IVC filter are noted. A nasogastric tube has its tip in the fundus of the stomach. IMPRESSION: NG tube with its tip in the fundus of the stomach
--- NOTE | 2016-11-30 10:14 | PDOC ---
WILL STARK [employer] 11/30/16 1014: SURGICAL PROGRESS NOTE Subjective up in chair this AM denies pain Vital Signs Vital Signs Date Time Temp Pulse Resp B/P Pulse Ox O2 Delivery O2 Flow Rate FiO2 11/30/16 10:00 70 19 184/64 100 Nasal Cannula 6.0 11/30/16 08:00 98.3 98.3 I&O Intake and Output 11/30/16 07:00 Intake Total 1776 ml Output Total 3301 ml Balance -1525 ml IV Total 1479 ml Blood Product 297 ml Output Urine Total 3300 ml Stool Total 1 ml General: Cooperative, No acute distress HEENT: Other (ng bilious) Abdomen: Soft Skin: Other (eechymosis to bilateral hip/flank ) Labs Laboratory Tests Test 11/28/16 12:24 11/28/16 15:00 11/28/16 16:05 11/28/16 16:50 O2 Saturation 96% (92-99) Arterial Blood pH 7.51 (7.35-7.45) Arterial Blood pCO2 at Patient Temp 32mmHg (35-46) Arterial Blood pO2 at Patient Temp 94mmHg (65-108) Arterial Blood HCO3 25mmol/L (21-28) Arterial Blood Base Excess 1mmol/L (-3-3) FiO2 50 Prothrombin Time 14.2SEC (11.7-14.0) Prothromb Time International Ratio 1.2 (0.8-1.1) Heparin Anti-Xa Act, Unfractionated 0.86IU/mL (0.30-0.70) Glucose (Fingerstick) 162mg/dL (70-99) White Blood Count 13.1x10^3/uL (4.0-11.0) Red Blood Count 1.91x10^6/uL (4.30-5.70) Hemoglobin 5.7g/dL (13.0-17.5) Hematocrit 16.8% (39.0-53.0) Mean Corpuscular Volume 88fL (79-100) Mean Corpuscular Hemoglobin 30pg (25-35) Mean Corpuscular Hemoglobin Concent 34g/dL (31-37) Red Cell Distribution Width 13.8% (11.5-14.5) Platelet Count 108x10^3/uL (140-400) Test 11/29/16 00:03 11/29/16 06:20 11/29/16 06:26 11/29/16 12:12 Glucose (Fingerstick) 213mg/dL (70-99) 182mg/dL (70-99) White Blood Count 10.3x10^3/uL (4.0-11.0) Red Blood Count 2.27x10^6/uL (4.30-5.70) Hemoglobin 6.9g/dL (13.0-17.5) Hematocrit 20.3% (39.0-53.0) Mean Corpuscular Volume 90fL (79-100) Mean Corpuscular Hemoglobin 31pg (25-35) Mean Corpuscular Hemoglobin Concent 34g/dL (31-37) Red Cell Distribution Width 14.9% (11.5-14.5) Platelet Count 84x10^3/uL (140-400) Neutrophils (%) (Auto) 75% (31-73) Lymphocytes (%) (Auto) 9% (24-48) Monocytes (%) (Auto) 13% (0-9) Eosinophils (%) (Auto) 4% (0-3) Basophils (%) (Auto) 0% (0-3) Neutrophils # (Auto) 7.7x10^3uL (1.8-7.7) Lymphocytes # (Auto) 0.9x10^3/uL (1.0-4.8) Monocytes # (Auto) 1.3x10^3/uL (0.0-1.1) Eosinophils # (Auto) 0.4x10^3/uL (0.0-0.7) Basophils # (Auto) 0.0x10^3/uL (0.0-0.2) Sodium Level 145mmol/L (136-145) Potassium Level 3.9mmol/L (3.5-5.1) Chloride Level 109mmol/L (98-107) Carbon Dioxide Level 26mmol/L (21-32) Anion Gap 10 (6-14) Blood Urea Nitrogen 42mg/dL (8-26) Creatinine 2.1mg/dL (0.7-1.3) Estimated GFR (Cockcroft-Gault) 31.3 Glucose Level 196mg/dL (70-99) Calcium Level 7.8mg/dL (8.5-10.1) Phosphorus Level 3.1mg/dL (2.6-4.7) Magnesium Level 2.4mg/dL (1.8-2.4) Creatine Kinase 473U/L (39-308) Albumin 2.9g/dL (3.4-5.0) Activated Partial Thromboplast Time 31SEC (24-38) Heparin Anti-Xa Act, Unfractionated < 0.10IU/mL (0.30-0.70) Test 11/29/16 12:25 11/29/16 17:49 11/29/16 20:39 11/29/16 20:57 Glucose (Fingerstick) 235mg/dL (70-99) 198mg/dL (70-99) Hemoglobin 8.0g/dL (13.0-17.5) Hematocrit 23.5% (39.0-53.0) Activated Partial Thromboplast Time 41SEC (24-38) Heparin Anti-Xa Act, Unfractionated < 0.10IU/mL (0.30-0.70) Test 11/30/16 00:13 11/30/16 04:30 Glucose (Fingerstick) 246mg/dL (70-99) White Blood Count 9.6x10^3/uL (4.0-11.0) Red Blood Count 2.54x10^6/uL (4.30-5.70) Hemoglobin 7.7g/dL (13.0-17.5) Hematocrit 22.0% (39.0-53.0) Mean Corpuscular Volume 87fL (79-100) Mean Corpuscular Hemoglobin 30pg (25-35) Mean Corpuscular Hemoglobin Concent 35g/dL (31-37) Red Cell Distribution Width 15.4% (11.5-14.5) Platelet Count 70x10^3/uL (140-400) Heparin Anti-Xa Act, Unfractionated 0.17IU/mL (0.30-0.70) Sodium Level 145mmol/L (136-145) Potassium Level 3.9mmol/L (3.5-5.1) Chloride Level 109mmol/L (98-107) Carbon Dioxide Level 27mmol/L (21-32) Anion Gap 9 (6-14) Blood Urea Nitrogen 41mg/dL (8-26) Creatinine 1.8mg/dL (0.7-1.3) Estimated GFR (Cockcroft-Gault) 37.4 Glucose Level 240mg/dL (70-99) Calcium Level 7.8mg/dL (8.5-10.1) Phosphorus Level 2.8mg/dL (2.6-4.7) Magnesium Level 2.3mg/dL (1.8-2.4) Creatine Kinase 286U/L (39-308) Albumin 2.7g/dL (3.4-5.0) Laboratory Tests Test 11/29/16 12:12 11/29/16 12:25 11/29/16 17:49 11/29/16 20:39 Activated Partial Thromboplast Time 31SEC (24-38) 41SEC (24-38) Heparin Anti-Xa Act, Unfractionated < 0.10IU/mL (0.30-0.70) Glucose (Fingerstick) 235mg/dL (70-99) 198mg/dL (70-99) Hemoglobin 8.0g/dL (13.0-17.5) Hematocrit 23.5% (39.0-53.0) Test 11/29/16 20:57 11/30/16 00:13 11/30/16 04:30 Heparin Anti-Xa Act, Unfractionated < 0.10IU/mL (0.30-0.70) 0.17IU/mL (0.30-0.70) Glucose (Fingerstick) 246mg/dL (70-99) White Blood Count 9.6x10^3/uL (4.0-11.0) Red Blood Count 2.54x10^6/uL (4.30-5.70) Hemoglobin 7.7g/dL (13.0-17.5) Hematocrit 22.0% (39.0-53.0) Mean Corpuscular Volume 87fL (79-100) Mean Corpuscular Hemoglobin 30pg (25-35) Mean Corpuscular Hemoglobin Concent 35g/dL (31-37) Red Cell Distribution Width 15.4% (11.5-14.5) Platelet Count 70x10^3/uL (140-400) Sodium Level 145mmol/L (136-145) Potassium Level 3.9mmol/L (3.5-5.1) Chloride Level 109mmol/L (98-107) Carbon Dioxide Level 27mmol/L (21-32) Anion Gap 9 (6-14) Blood Urea Nitrogen 41mg/dL (8-26) Creatinine 1.8mg/dL (0.7-1.3) Estimated GFR (Cockcroft-Gault) 37.4 Glucose Level 240mg/dL (70-99) Calcium Level 7.8mg/dL (8.5-10.1) Phosphorus Level 2.8mg/dL (2.6-4.7) Magnesium Level 2.3mg/dL (1.8-2.4) Creatine Kinase 286U/L (39-308) Albumin 2.7g/dL (3.4-5.0) Problem List Problems Medical Problems: (1) Cardiac arrest Status: Acute Assessment/Plan acute blood loss anemia, hgb improved, noted to have bruising to bilat hips/ flank plts 70 PE, IVC filter supportive care, no surgical plans at this time Problems: WENDY ANTOINE MD 11/30/16 1155: SURGICAL PROGRESS NOTE Assessment/Plan Agree with above Problems: WILL STARK APRN Nov 30, 2016 10:14 WENDY ANTOINE MD Nov 30, 2016 11:55
[2016-11-30] MEDS: TPN PER PHARMACY MC PRN ×2 (10:22→10:45)
[2016-11-30] MEDS ORDERED: NITROGLYCERIN PREMIX 250 ML IV PRN (10:45)
--- NOTE | 2016-11-30 10:55 | PDOC ---
PULMONARY PROGRESS NOTES Subjective on 02 6 lpm, didnt use bipap, no pain, has sob, occ cough, is tired, s/p prbc 6 units, off hep gtt. Vitals Vital Signs Date Time Temp Pulse Resp B/P Pulse Ox O2 Delivery O2 Flow Rate FiO2 11/30/16 10:00 70 19 184/64 100 Nasal Cannula 6.0 11/30/16 08:00 98.3 98.3 Comments ros as mentioned as above. discussed w rn, other sys otherwise neg General: Alert HEENT: Other (nc at, perrl, nose clear, shallow oropharynx. neck, + jvd, no thyromegaly, no lap) Lungs: Crackles Cardiovascular: S1, S2 Abdomen: Soft, Non-tender, Other (no mass) Neuro Exam: Alert Extremities: Other (2=edema) Skin: Warm Labs Laboratory Tests Test 11/28/16 12:24 11/28/16 15:00 11/28/16 16:05 11/28/16 16:50 O2 Saturation 96% (92-99) Arterial Blood pH 7.51 (7.35-7.45) Arterial Blood pCO2 at Patient Temp 32mmHg (35-46) Arterial Blood pO2 at Patient Temp 94mmHg (65-108) Arterial Blood HCO3 25mmol/L (21-28) Arterial Blood Base Excess 1mmol/L (-3-3) FiO2 50 Prothrombin Time 14.2SEC (11.7-14.0) Prothromb Time International Ratio 1.2 (0.8-1.1) Heparin Anti-Xa Act, Unfractionated 0.86IU/mL (0.30-0.70) Glucose (Fingerstick) 162mg/dL (70-99) White Blood Count 13.1x10^3/uL (4.0-11.0) Red Blood Count 1.91x10^6/uL (4.30-5.70) Hemoglobin 5.7g/dL (13.0-17.5) Hematocrit 16.8% (39.0-53.0) Mean Corpuscular Volume 88fL (79-100) Mean Corpuscular Hemoglobin 30pg (25-35) Mean Corpuscular Hemoglobin Concent 34g/dL (31-37) Red Cell Distribution Width 13.8% (11.5-14.5) Platelet Count 108x10^3/uL (140-400) Test 11/29/16 00:03 11/29/16 06:20 11/29/16 06:26 11/29/16 12:12 Glucose (Fingerstick) 213mg/dL (70-99) 182mg/dL (70-99) White Blood Count 10.3x10^3/uL (4.0-11.0) Red Blood Count 2.27x10^6/uL (4.30-5.70) Hemoglobin 6.9g/dL (13.0-17.5) Hematocrit 20.3% (39.0-53.0) Mean Corpuscular Volume 90fL (79-100) Mean Corpuscular Hemoglobin 31pg (25-35) Mean Corpuscular Hemoglobin Concent 34g/dL (31-37) Red Cell Distribution Width 14.9% (11.5-14.5) Platelet Count 84x10^3/uL (140-400) Neutrophils (%) (Auto) 75% (31-73) Lymphocytes (%) (Auto) 9% (24-48) Monocytes (%) (Auto) 13% (0-9) Eosinophils (%) (Auto) 4% (0-3) Basophils (%) (Auto) 0% (0-3) Neutrophils # (Auto) 7.7x10^3uL (1.8-7.7) Lymphocytes # (Auto) 0.9x10^3/uL (1.0-4.8) Monocytes # (Auto) 1.3x10^3/uL (0.0-1.1) Eosinophils # (Auto) 0.4x10^3/uL (0.0-0.7) Basophils # (Auto) 0.0x10^3/uL (0.0-0.2) Sodium Level 145mmol/L (136-145) Potassium Level 3.9mmol/L (3.5-5.1) Chloride Level 109mmol/L (98-107) Carbon Dioxide Level 26mmol/L (21-32) Anion Gap 10 (6-14) Blood Urea Nitrogen 42mg/dL (8-26) Creatinine 2.1mg/dL (0.7-1.3) Estimated GFR (Cockcroft-Gault) 31.3 Glucose Level 196mg/dL (70-99) Calcium Level 7.8mg/dL (8.5-10.1) Phosphorus Level 3.1mg/dL (2.6-4.7) Magnesium Level 2.4mg/dL (1.8-2.4) Creatine Kinase 473U/L (39-308) Albumin 2.9g/dL (3.4-5.0) Activated Partial Thromboplast Time 31SEC (24-38) Heparin Anti-Xa Act, Unfractionated < 0.10IU/mL (0.30-0.70) Test 11/29/16 12:25 11/29/16 17:49 11/29/16 20:39 11/29/16 20:57 Glucose (Fingerstick) 235mg/dL (70-99) 198mg/dL (70-99) Hemoglobin 8.0g/dL (13.0-17.5) Hematocrit 23.5% (39.0-53.0) Activated Partial Thromboplast Time 41SEC (24-38) Heparin Anti-Xa Act, Unfractionated < 0.10IU/mL (0.30-0.70) Test 11/30/16 00:13 11/30/16 04:30 Glucose (Fingerstick) 246mg/dL (70-99) White Blood Count 9.6x10^3/uL (4.0-11.0) Red Blood Count 2.54x10^6/uL (4.30-5.70) Hemoglobin 7.7g/dL (13.0-17.5) Hematocrit 22.0% (39.0-53.0) Mean Corpuscular Volume 87fL (79-100) Mean Corpuscular Hemoglobin 30pg (25-35) Mean Corpuscular Hemoglobin Concent 35g/dL (31-37) Red Cell Distribution Width 15.4% (11.5-14.5) Platelet Count 70x10^3/uL (140-400) Heparin Anti-Xa Act, Unfractionated 0.17IU/mL (0.30-0.70) Sodium Level 145mmol/L (136-145) Potassium Level 3.9mmol/L (3.5-5.1) Chloride Level 109mmol/L (98-107) Carbon Dioxide Level 27mmol/L (21-32) Anion Gap 9 (6-14) Blood Urea Nitrogen 41mg/dL (8-26) Creatinine 1.8mg/dL (0.7-1.3) Estimated GFR (Cockcroft-Gault) 37.4 Glucose Level 240mg/dL (70-99) Calcium Level 7.8mg/dL (8.5-10.1) Phosphorus Level 2.8mg/dL (2.6-4.7) Magnesium Level 2.3mg/dL (1.8-2.4) Creatine Kinase 286U/L (39-308) Albumin 2.7g/dL (3.4-5.0) Laboratory Tests Test 11/29/16 12:12 11/29/16 12:25 11/29/16 17:49 11/29/16 20:39 Activated Partial Thromboplast Time 31SEC (24-38) 41SEC (24-38) Heparin Anti-Xa Act, Unfractionated < 0.10IU/mL (0.30-0.70) Glucose (Fingerstick) 235mg/dL (70-99) 198mg/dL (70-99) Hemoglobin 8.0g/dL (13.0-17.5) Hematocrit 23.5% (39.0-53.0) Test 11/29/16 20:57 11/30/16 00:13 11/30/16 04:30 Heparin Anti-Xa Act, Unfractionated < 0.10IU/mL (0.30-0.70) 0.17IU/mL (0.30-0.70) Glucose (Fingerstick) 246mg/dL (70-99) White Blood Count 9.6x10^3/uL (4.0-11.0) Red Blood Count 2.54x10^6/uL (4.30-5.70) Hemoglobin 7.7g/dL (13.0-17.5) Hematocrit 22.0% (39.0-53.0) Mean Corpuscular Volume 87fL (79-100) Mean Corpuscular Hemoglobin 30pg (25-35) Mean Corpuscular Hemoglobin Concent 35g/dL (31-37) Red Cell Distribution Width 15.4% (11.5-14.5) Platelet Count 70x10^3/uL (140-400) Sodium Level 145mmol/L (136-145) Potassium Level 3.9mmol/L (3.5-5.1) Chloride Level 109mmol/L (98-107) Carbon Dioxide Level 27mmol/L (21-32) Anion Gap 9 (6-14) Blood Urea Nitrogen 41mg/dL (8-26) Creatinine 1.8mg/dL (0.7-1.3) Estimated GFR (Cockcroft-Gault) 37.4 Glucose Level 240mg/dL (70-99) Calcium Level 7.8mg/dL (8.5-10.1) Phosphorus Level 2.8mg/dL (2.6-4.7) Magnesium Level 2.3mg/dL (1.8-2.4) Creatine Kinase 286U/L (39-308) Albumin 2.7g/dL (3.4-5.0) Comments cxr reviewed, increased vm, ll infilt atelectasis effusion R>L Impression . 1. Acute respiratory failure secondary to [id number] cardiopulmonary arrest. Suspect secondary to arrhythmia. 2. Hyperlipidemia. 3. Diabetes. 4. Positive venous Doppler on Heparin/ popliteal nonocclusive thrombus. 5. Metabolic acidosis sec to code 6. Possible PE 7. Ischemia CM 35-40% 8. Acute kidney injury 9. anemia, ? gib 10. wheezing, acute bronchospasm 11. abnl cxr, pneumonia, ? aspiration and chf Plan . 1. cont bipap prn during day, cont at night, setting reviewed, monitor resp status closely, 2. s/p hypothermic protocol 3. Cardiology follow rec 4. follow nephrology input, keep I<O, lasix monitor k, cr 5. Further cardiac workup per Dr. Lu. 6. Titrate FIO2. 7. cont antibiotics. 8. bronchodilator, ics 9. protonix gtt, ? change to bid, per gi . s/p prbc 6 units, monitor h/h, cxr showed stomach distention, ? dc ng 10. heparin gtt, s/p ivc filter 11/29, monitor closely for bleeding, no retro peritoneal bleed discussed w rn, rt, cardiology ASHLEY DIAZ MD Nov 30, 2016 10:55
--- NOTE | 2016-11-30 10:57 | PDOC ---
PROGRESS NOTES Chief Complaint Chief Complaint Cardiac arrest ASSESSMENT AND PLAN; 1. Cardiac arrest: s/p hypothermia 2. Respir failure: extubated 11/26 3. DVT: Bilateral LE. 4. CHF: systolic (EF 35-40%). new. 5. ?H[place]ILTON with CKD: 6. Leukocytosis: reactive. 7. Transaminitis: 8. DM2: 9. HLD: on statin 10: FAtty liver, asymptomatic cholelithiasis 11. Acute encephalopathy post cardiac cath (11/27) 12. Acute respiratory failure needing NIPPV 11/27 13. Atelectasis 13. Precipitous drop in hgb History of Present Illness History of Present Illness Just had IVC filter thursday (11/29) Low dose heparin gtt running (PE) but significant anemia hgb 4, after 5-6 pRBC now up to Hgb 7.7 Bruising significant on R flank, neg hematoma on CT abd Off BIPAP, following commands First good day today! 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 member Vitals Vitals Vital Signs Date Time Temp Pulse Resp B/P Pulse Ox O2 Delivery O2 Flow Rate FiO2 11/30/16 10:00 70 19 184/64 100 Nasal Cannula 6.0 11/30/16 08:00 98.3 98.3 Physical Exam General: Cooperative, No acute distress Heart: Regular rate, Normal S1, Normal S2 Lungs: Crackles Abdomen: Soft Extremities: Other (mild edema, intact distal pulses) Skin: Other (eechymosis to bilateral hip/flank ) Labs LABS Laboratory Tests Test 11/29/16 12:12 11/29/16 12:25 11/29/16 17:49 11/29/16 20:39 Activated Partial Thromboplast Time 31SEC (24-38) 41SEC (24-38) Heparin Anti-Xa Act, Unfractionated < 0.10IU/mL (0.30-0.70) Glucose (Fingerstick) 235mg/dL (70-99) 198mg/dL (70-99) Hemoglobin 8.0g/dL (13.0-17.5) Hematocrit 23.5% (39.0-53.0) Test 11/29/16 20:57 11/30/16 00:13 11/30/16 04:30 Heparin Anti-Xa Act, Unfractionated < 0.10IU/mL (0.30-0.70) 0.17IU/mL (0.30-0.70) Glucose (Fingerstick) 246mg/dL (70-99) White Blood Count 9.6x10^3/uL (4.0-11.0) Red Blood Count 2.54x10^6/uL (4.30-5.70) Hemoglobin 7.7g/dL (13.0-17.5) Hematocrit 22.0% (39.0-53.0) Mean Corpuscular Volume 87fL (79-100) Mean Corpuscular Hemoglobin 30pg (25-35) Mean Corpuscular Hemoglobin Concent 35g/dL (31-37) Red Cell Distribution Width 15.4% (11.5-14.5) Platelet Count 70x10^3/uL (140-400) Sodium Level 145mmol/L (136-145) Potassium Level 3.9mmol/L (3.5-5.1) Chloride Level 109mmol/L (98-107) Carbon Dioxide Level 27mmol/L (21-32) Anion Gap 9 (6-14) Blood Urea Nitrogen 41mg/dL (8-26) Creatinine 1.8mg/dL (0.7-1.3) Estimated GFR (Cockcroft-Gault) 37.4 Glucose Level 240mg/dL (70-99) Calcium Level 7.8mg/dL (8.5-10.1) Phosphorus Level 2.8mg/dL (2.6-4.7) Magnesium Level 2.3mg/dL (1.8-2.4) Creatine Kinase 286U/L (39-308) Albumin 2.7g/dL (3.4-5.0) Review of Systems Review of Systems limited, weak Assessment and Plan Assessmemt and Plan Problems Medical Problems: (1) Cardiac arrest Status: Acute Problems: Comment Review of Relevant I have reviewed the following items rodolfo (where applicable) has been applied. Labs Laboratory Tests Test 11/28/16 12:24 11/28/16 15:00 11/28/16 16:05 11/28/16 16:50 O2 Saturation 96% (92-99) Arterial Blood pH 7.51 (7.35-7.45) Arterial Blood pCO2 at Patient Temp 32mmHg (35-46) Arterial Blood pO2 at Patient Temp 94mmHg (65-108) Arterial Blood HCO3 25mmol/L (21-28) Arterial Blood Base Excess 1mmol/L (-3-3) FiO2 50 Prothrombin Time 14.2SEC (11.7-14.0) Prothromb Time International Ratio 1.2 (0.8-1.1) Heparin Anti-Xa Act, Unfractionated 0.86IU/mL (0.30-0.70) Glucose (Fingerstick) 162mg/dL (70-99) White Blood Count 13.1x10^3/uL (4.0-11.0) Red Blood Count 1.91x10^6/uL (4.30-5.70) Hemoglobin 5.7g/dL (13.0-17.5) Hematocrit 16.8% (39.0-53.0) Mean Corpuscular Volume 88fL (79-100) Mean Corpuscular Hemoglobin 30pg (25-35) Mean Corpuscular Hemoglobin Concent 34g/dL (31-37) Red Cell Distribution Width 13.8% (11.5-14.5) Platelet Count 108x10^3/uL (140-400) Test 11/29/16 00:03 11/29/16 06:20 11/29/16 06:26 11/29/16 12:12 Glucose (Fingerstick) 213mg/dL (70-99) 182mg/dL (70-99) White Blood Count 10.3x10^3/uL (4.0-11.0) Red Blood Count 2.27x10^6/uL (4.30-5.70) Hemoglobin 6.9g/dL (13.0-17.5) Hematocrit 20.3% (39.0-53.0) Mean Corpuscular Volume 90fL (79-100) Mean Corpuscular Hemoglobin 31pg (25-35) Mean Corpuscular Hemoglobin Concent 34g/dL (31-37) Red Cell Distribution Width 14.9% (11.5-14.5) Platelet Count 84x10^3/uL (140-400) Neutrophils (%) (Auto) 75% (31-73) Lymphocytes (%) (Auto) 9% (24-48) Monocytes (%) (Auto) 13% (0-9) Eosinophils (%) (Auto) 4% (0-3) Basophils (%) (Auto) 0% (0-3) Neutrophils # (Auto) 7.7x10^3uL (1.8-7.7) Lymphocytes # (Auto) 0.9x10^3/uL (1.0-4.8) Monocytes # (Auto) 1.3x10^3/uL (0.0-1.1) Eosinophils # (Auto) 0.4x10^3/uL (0.0-0.7) Basophils # (Auto) 0.0x10^3/uL (0.0-0.2) Sodium Level 145mmol/L (136-145) Potassium Level 3.9mmol/L (3.5-5.1) Chloride Level 109mmol/L (98-107) Carbon Dioxide Level 26mmol/L (21-32) Anion Gap 10 (6-14) Blood Urea Nitrogen 42mg/dL (8-26) Creatinine 2.1mg/dL (0.7-1.3) Estimated GFR (Cockcroft-Gault) 31.3 Glucose Level 196mg/dL (70-99) Calcium Level 7.8mg/dL (8.5-10.1) Phosphorus Level 3.1mg/dL (2.6-4.7) Magnesium Level 2.4mg/dL (1.8-2.4) Creatine Kinase 473U/L (39-308) Albumin 2.9g/dL (3.4-5.0) Activated Partial Thromboplast Time 31SEC (24-38) Heparin Anti-Xa Act, Unfractionated < 0.10IU/mL (0.30-0.70) Test 11/29/16 12:25 11/29/16 17:49 11/29/16 20:39 11/29/16 20:57 Glucose (Fingerstick) 235mg/dL (70-99) 198mg/dL (70-99) Hemoglobin 8.0g/dL (13.0-17.5) Hematocrit 23.5% (39.0-53.0) Activated Partial Thromboplast Time 41SEC (24-38) Heparin Anti-Xa Act, Unfractionated < 0.10IU/mL (0.30-0.70) Test 11/30/16 00:13 11/30/16 04:30 Glucose (Fingerstick) 246mg/dL (70-99) White Blood Count 9.6x10^3/uL (4.0-11.0) Red Blood Count 2.54x10^6/uL (4.30-5.70) Hemoglobin 7.7g/dL (13.0-17.5) Hematocrit 22.0% (39.0-53.0) Mean Corpuscular Volume 87fL (79-100) Mean Corpuscular Hemoglobin 30pg (25-35) Mean Corpuscular Hemoglobin Concent 35g/dL (31-37) Red Cell Distribution Width 15.4% (11.5-14.5) Platelet Count 70x10^3/uL (140-400) Heparin Anti-Xa Act, Unfractionated 0.17IU/mL (0.30-0.70) Sodium Level 145mmol/L (136-145) Potassium Level 3.9mmol/L (3.5-5.1) Chloride Level 109mmol/L (98-107) Carbon Dioxide Level 27mmol/L (21-32) Anion Gap 9 (6-14) Blood Urea Nitrogen 41mg/dL (8-26) Creatinine 1.8mg/dL (0.7-1.3) Estimated GFR (Cockcroft-Gault) 37.4 Glucose Level 240mg/dL (70-99) Calcium Level 7.8mg/dL (8.5-10.1) Phosphorus Level 2.8mg/dL (2.6-4.7) Magnesium Level 2.3mg/dL (1.8-2.4) Creatine Kinase 286U/L (39-308) Albumin 2.7g/dL (3.4-5.0) Laboratory Tests Test 11/29/16 12:12 11/29/16 12:25 11/29/16 17:49 11/29/16 20:39 Activated Partial Thromboplast Time 31SEC (24-38) 41SEC (24-38) Heparin Anti-Xa Act, Unfractionated < 0.10IU/mL (0.30-0.70) Glucose (Fingerstick) 235mg/dL (70-99) 198mg/dL (70-99) Hemoglobin 8.0g/dL (13.0-17.5) Hematocrit 23.5% (39.0-53.0) Test 11/29/16 20:57 11/30/16 00:13 11/30/16 04:30 Heparin Anti-Xa Act, Unfractionated < 0.10IU/mL (0.30-0.70) 0.17IU/mL (0.30-0.70) Glucose (Fingerstick) 246mg/dL (70-99) White Blood Count 9.6x10^3/uL (4.0-11.0) Red Blood Count 2.54x10^6/uL (4.30-5.70) Hemoglobin 7.7g/dL (13.0-17.5) Hematocrit 22.0% (39.0-53.0) Mean Corpuscular Volume 87fL (79-100) Mean Corpuscular Hemoglobin 30pg (25-35) Mean Corpuscular Hemoglobin Concent 35g/dL (31-37) Red Cell Distribution Width 15.4% (11.5-14.5) Platelet Count 70x10^3/uL (140-400) Sodium Level 145mmol/L (136-145) Potassium Level 3.9mmol/L (3.5-5.1) Chloride Level 109mmol/L (98-107) Carbon Dioxide Level 27mmol/L (21-32) Anion Gap 9 (6-14) Blood Urea Nitrogen 41mg/dL (8-26) Creatinine 1.8mg/dL (0.7-1.3) Estimated GFR (Cockcroft-Gault) 37.4 Glucose Level 240mg/dL (70-99) Calcium Level 7.8mg/dL (8.5-10.1) Phosphorus Level 2.8mg/dL (2.6-4.7) Magnesium Level 2.3mg/dL (1.8-2.4) Creatine Kinase 286U/L (39-308) Albumin 2.7g/dL (3.4-5.0) Microbiology 11/28/16 Blood Culture - Preliminary, Resulted NO GROWTH AFTER 2 DAYS 11/24/16 Stool Culture - Final, Complete 11/24/16 Stool Culture Result 1 (ROSIE) - Final, Complete 11/24/16 Campylobacter Antigen Assay - Final, Complete 11/24/16 Campylobactor Result 1 - Final, Complete 11/24/16 Shiga Toxin Test - Final, Complete 11/25/16 Urine Culture - Final, Complete 11/25/16 Urine Culture Result 1 (ROSIE) - Final, Complete Medications Current Medications Sodium Chloride 1,000 ml @ 1,000 mls/hr Q1H IV Last administered on 11/24/16 06:50; Start 11/24/16 at 06:50; Stop 11/24/16 at 07:49; Status DC Epinephrine HCl/ Sodium Chloride (Adrenalin/Iv Sodium Chloride 0.9% 250ml) 254 ml @ 0 mls/hr CONT PRN IV SEE I/O RECORD Last administered on 11/26/16 03:05; Start 11/24/16 at 07:30; Stop 11/27/16 at 08:25; Status DC Insulin Aspart (Novolog) 0-7 UNITS TIDWMEALS SQ ; Start 11/24/16 at 08:00; Stop 11/24/16 at 15:36; Status DC Dextrose 12.5 gm 12.5 gm PRN Q15MIN PRN IV SEE COMMENTS; Start 11/24/16 at 07: 45; Stop 11/25/16 at 23:34; Status DC Sodium Chloride (Iv Sodium Chloride 0.9% 1000ml Bag) 1,000 ml @ 125 mls/hr 1X ONCE IV Last administered on 11/24/16 07:52; Start 11/24/16 at 08:00; Stop at 08:20; Status DC Vancomycin HCl (Vanco Per Pharmacy) 1 each PRN DAILY PRN MC SEE COMMENTS Last administered on 11/24/16 11:26; Start 11/24/16 at 08:15; Stop 11/24/16 at 13:06 ; Status DC Piperacillin Sod/ Tazobactam Sod 1 each 1 each PRN DAILY PRN MC SEE COMMENTS; Start 11/24/16 at 08:15; Stop 11/24/16 at 13:06; Status DC Sodium Bicarbonate 50 meq/Sodium Chloride 1,050 ml @ 125 mls/hr Q8H24M IV Last administered on 11/26/16 11:24; Start 11/24/16 at 08:30; Stop 11/26/16 at 12:41; Status DC Vancomycin HCl 2 gm/Sodium Chloride 500 ml @ 250 mls/hr ONCE ONCE IV Last administered on 11/24/16 10:15; Start 11/24/16 at 08:30; Stop 11/24/16 at 10:29 ; Status DC Piperacillin Sod/ Tazobactam Sod 4.5 gm/Sodium Chloride 100 ml @ 200 mls/hr Q6HRS IV Last administered on 11/24/16 10:10; Start 11/24/16 at 08:30; Stop at 11:15; Status DC Sodium Chloride (Iv Sodium Chloride 0.9% 1000ml Bag) 1,000 ml @ 1,000 mls/hr Q1H IV Last administered on 11/24/16 10:09; Start 11/24/16 at 08:39; Stop at 11:47; Status DC Fentanyl Citrate (Fentanyl 2ml Vial) 25 mcg PRN Q30MIN PRN IV SED; Start at 08:45 Lorazepam 1 mg 1 mg PRN Q30MIN PRN IV SEDATION Last administered on 11/25/16 12:26; Start 11/24/16 at 08:45; Stop 11/28/16 at 19:45; Status DC Fentanyl Citrate 30 ml @ 2.5 mls/hr CONT PRN PRN IV IVF Last administered on 07:40; Start 11/24/16 at 08:45; Stop 11/26/16 at 17:49; Status DC Propofol (Diprivan) 100 ml @ 0 mls/hr CONT PRN IV SEE I/O RECORD Last administered on 11/26/16 07:38; Start 11/24/16 at 08:45; Stop 11/26/16 at 17:49 ; Status DC Vecuronium Benton (Norcuron Bolus) 9 mg PRN Q30MIN PRN IV SHIVERING Last administered on 11/24/16 17:38; Start 11/24/16 at 08:45; Stop 11/26/16 at 17:49 ; Status DC Meperidine HCl (Demerol) 12.5 mg PRN Q30MIN PRN IV SHIVERING Last administered on 11/24/16 22:21; Start 11/24/16 at 08:45; Stop 11/24/16 at 22:21; Status DC Multi-Ingred Cream/Lotion/Oil/ Oint (Artificial Tears Eye Oint) 1 radha PRN Q6HRS PRN OU 0.5 INCH FOR DRY EYE; Start 11/24/16 at 08:45 Famotidine (Pepcid) 20 mg QHS IVP Last administered on 11/27/16 21:12; Start 11/24/16 at 21:00; Stop 11/28/16 at 09:46; Status DC Aspirin (Aspirin) 300 mg DAILY NM Last administered on 11/30/16 07:38; Start 11/24/16 at 09:00 Sodium Chloride (Normal Saline Flush) 3 ml QSHIFT PRN IV AFTER MEDS AND BLOOD DRAWS; Start 11/24/16 at 08:45 Acetaminophen (Tylenol) 650 mg Q6HRS NG ; Start 11/24/16 at 12:00; Stop at 11:59; Status DC Acetaminophen (Tylenol) 650 mg PRN Q6HRS PRN NM MILD PAIN / TEMP; Start at 08:45; Stop 11/25/16 at 23:35; Status DC Acetaminophen (Tylenol) 650 mg PRN Q6HRS PRN NG MILD PAIN / TEMP; Start at 08:45 Info 1 ea 1 ea DAILY PRN MC PER PROTOCOL; Start 11/26/16 at 08:45 Insulin Human Regular 150 unit/ Sodium Chloride 151.5 ml @ 9.16 mls/hr CONT PRN IV SEE I/O RECORD Last administered on 11/24/16 10:13; Start 11/24/16 at 09 :30; Stop 11/27/16 at 08:25; Status DC Piperacillin Sod/ Tazobactam Sod 3.375 gm/Sodium Chloride 50 ml @ 100 mls/hr Q6HRS IV ; Start 11/24/16 at 18:00; Stop 11/24/16 at 18:00; Status DC Vancomycin HCl/ Sodium Chloride (Iv Sodium Chloride 0.9% 500ml Bag) 500 ml @ 250 mls/hr Q24H IV ; Start 11/25/16 at 10:00; Stop 11/25/16 at 10:00; Status DC Vancomycin HCl 1 each 1 each 1X ONCE MC ; Start 11/26/16 at 09:30; Stop at 09:30; Status DC Sodium Chloride (Iv Sodium Chloride 0.9% 1000ml Bag) 1,000 ml @ 1,000 mls/hr 1X ONCE IV Last administered on 11/24/16 11:00; Start 11/24/16 at 11:00; Stop 11/24/16 at 11:59; Status DC Insulin Detemir (Levemir) 12 units QHS SQ ; Start 11/24/16 at 21:00; Stop at 21:00; Status DC Insulin Aspart (Novolog) 10 units 1X ONCE SQ ; Start 11/24/16 at 15:30; Stop at 20:10; Status DC Insulin Aspart (Novolog) 0-7 UNITS Q4HRS SQ ; Start 11/24/16 at 16:00; Stop at 20:10; Status DC Heparin Sodium (Porcine) 8100 unit 8,100 unit 1X ONCE IV Last administered on 11/24/16 17:24; Start 11/24/16 at 17:00; Stop 11/24/16 at 17:01; Status DC Heparin Sodium/ Dextrose 500 ml @ 0 mls/hr CONT PRN IV SEE I/O RECORD Last administered on 11/28/16 02:06; Start 11/24/16 at 16:45; Stop 11/28/16 at 17:12 ; Status DC Heparin Sodium (Porcine) 3,000 unit PRN Q6HRS PRN IV FOR UFH LEVEL LESS THAN 0.2; Start 11/24/16 at 16:45; Stop 11/28/16 at 17:12; Status DC Heparin Sodium (Porcine) 1,500 unit PRN Q6HRS PRN IV FOR UFH LEVEL 0.2 - 0.29 Last administered on 11/26/16 12:08; Start 11/24/16 at 16:45; Stop 11/28/16 at 17:12; Status DC Info 1 each 1 each PRN DAILY PRN MC SEE COMMENTS Last administered on 10:03; Start 11/24/16 at 17:00; Stop 11/28/16 at 17:13; Status DC Piperacillin Sod/ Tazobactam Sod 3.375 gm/Sodium Chloride 50 ml @ 100 mls/hr Q6HRS IV Last administered on 11/30/16 06:26; Start 11/25/16 at 00:00 Vancomycin HCl/ Sodium Chloride (Iv Sodium Chloride 0.9% 250ml) 250 ml @ 250 mls/hr 1X ONCE IV ; Start 11/24/16 at 21:30; Stop 11/24/16 at 22:29; Status UNV Vancomycin HCl 1 each 1 each PRN DAILY PRN MC SEE COMMENTS Last administered on 11/25/16 03:30; Start 11/25/16 at 01:00; Stop 11/25/16 at 08:57; Status DC Vancomycin HCl/ Sodium Chloride (Iv Sodium Chloride 0.9% 500ml Bag) 500 ml @ 250 mls/hr Q24H IV ; Start 11/25/16 at 10:00; Stop 11/25/16 at 10:00; Status DC Vancomycin HCl 1 each 1X ONCE MC ; Start 11/26/16 at 09:30; Stop 11/26/16 at 09 :30; Status DC Enoxaparin Sodium (Lovenox Per Pharmacy Prophylaxis Dosing) 1 each PRN DAILY PRN MC SEE COMMENTS; Start 11/25/16 at 08:45; Status UNV Chlorhexidine Gluconate 15 ml 15 ml BID MM Last administered on 11/26/16 08:37 ; Start 11/25/16 at 21:00; Stop 11/26/16 at 17:49; Status DC Magnesium Sulfate/ Dextrose 50 ml @ 25 mls/hr PRN DAILY PRN IV for Mag < 1.7 on am labs Last administered on 11/26/16 05:29; Start 11/25/16 at 09:45; Stop 11/27/16 at 08:47; Status DC Magnesium Sulfate/ Dextrose 50 ml @ 25 mls/hr PRN DAILY PRN IV for Mag < 1.7 on am labs; Start 11/25/16 at 09:45; Status UNV Sodium Chloride 500 ml @ 0 mls/hr QID PRN IV UO< 30cc/hr over previous 6hrs Last administered on 11/25/16 10:54; Start 11/25/16 at 09:45; Stop 11/27/16 at 11:25; Status DC Magnesium Sulfate/ Dextrose (Magnesium Sulfate PREMIX 2GM) 50 ml @ 25 mls/hr 1X ONCE IV Last administered on 11/25/16 13:28; Start 11/25/16 at 12:30; Stop 11/25/16 at 14:29; Status DC Lidocaine/Sodium Bicarbonate 20 ml 20 ml STK-MED ONCE IJ ; Start 11/25/16 at 12: 35; Stop 11/25/16 at 12:36; Status DC Heparin Sodium/ Sodium Chloride 500 ml @ As Directed STK-MED ONCE .ROUTE ; Start 11/25/16 at 12:35; Stop 11/25/16 at 12:36; Status DC Lidocaine/Sodium Bicarbonate (Buffered Lidocaine 1%) 3 ml 1X ONCE IJ Last administered on 11/25/16 13:15; Start 11/25/16 at 13:15; Stop 11/25/16 at 13:16 ; Status DC Heparin Sodium/ Sodium Chloride 60 unit 1X ONCE IV Last administered on 13:16; Start 11/25/16 at 13:15; Stop 11/25/16 at 13:16; Status DC Amiodarone HCl (Cordarone) 450 mg STK-MED ONCE .ROUTE ; Start 11/25/16 at 12:00 ; Stop 11/25/16 at 14:56; Status DC Epinephrine HCl (Adrenalin) 30 mg STK-MED ONCE .ROUTE ; Start 11/25/16 at 12:00 ; Stop 11/25/16 at 14:56; Status DC Atropine Sulfate 1.5 mg STK-MED ONCE .ROUTE ; Start 11/25/16 at 12:00; Stop at 14:56; Status DC Epinephrine HCl 4 mg STK-MED ONCE .ROUTE ; Start 11/25/16 at 12:00; Stop at 14:56; Status DC Sodium Bicarbonate 150 meq 150 meq STK-MED ONCE .ROUTE ; Start 11/25/16 at 12:00 ; Stop 11/25/16 at 14:56; Status DC Midazolam HCl (Versed 100mg/ 100ml Premix) 100 ml @ 0 mls/hr CONT PRN IV SEE I/ O RECORD; Start 11/25/16 at 23:30; Stop 11/26/16 at 17:49; Status DC Insulin Aspart (Novolog) 0-7 UNITS TIDWMEALS SQ Last administered on 11/27/16 19:43; Start 11/26/16 at 08:00; Stop 11/28/16 at 01:01; Status DC Dextrose 12.5 gm PRN Q15MIN PRN IV SEE COMMENTS; Start 11/25/16 at 23:30 Acetaminophen 650 mg 650 mg PRN Q6HRS PRN NM MILD PAIN / TEMP Last administered on 11/28/16 04:19; Start 11/25/16 at 23:30 Potassium Chloride 50 ml @ 50 mls/hr Q1H IV Last administered on 11/26/16 11: 23; Start 11/26/16 at 10:30; Stop 11/26/16 at 12:29; Status DC Sodium Bicarbonate/ Sterile Water 1,100 ml @ 100 mls/hr Q11H IV Last administered on 11/27/16 00:56; Start 11/26/16 at 13:00; Stop 11/27/16 at 11:25 ; Status DC Info 1 each 1 each PRN DAILY PRN MC SEE COMMENTS Last administered on 10:45; Start 11/26/16 at 12:45 Calcium Chloride/ Sodium Chloride (Iv Sodium Chloride 0.9% 100ml) 120 ml @ 240 mls/hr 1X ONCE IV Last administered on 11/26/16 13:22; Start 11/26/16 at 13: 15; Stop 11/26/16 at 13:44; Status DC Ondansetron HCl 4 mg 4 mg PRN Q6HRS PRN IV NAUSEA/VOMITING Last administered on 11/26/16 13:56; Start 11/26/16 at 13:45 Sodium Chloride/ Potassium Chloride/ Magnesium Sulfate/ Calcium Gluconate/ Multivitamins/ Chromium/Copper/ Manganese/Seleni/ Zn/Total Parenteral Nutrition/ Amino Acids/Dextrose/ Fat Emulsion Intravenous (Sodium Chloride/ Infuvite Adult / Multitrace-5 Conc/ Tpn - Tpn Fluid/ Trophami... 1,594.468 ml @ 66.436 m... TPN CONT IV Last administered on 11/26/16 21:27; Start 11/26/16 at 22:00; Stop 11/27/16 at 21:59; Status DC Albuterol Sulfate 2.5 mg 2.5 mg 1X ONCE NEB Last administered on 11/27/16 07: 21; Start 11/27/16 at 06:45; Stop 11/27/16 at 06:46; Status DC Magnesium Sulfate/ Dextrose 50 ml @ 25 mls/hr PRN DAILY PRN IV for Mag < 1.7 on am labs; Start 11/27/16 at 08:45 Sodium Chloride 90 meq/Potassium Chloride 50 meq/ Magnesium Sulfate 10 meq/ Calcium Gluconate 10 meq/ Multivitamins 10 ml/Chromium/ Copper/Manganese/ Seleni /Zn 1 ml/ Total Parenteral Nutrition/Amino Acids/Dextrose/ Fat Emulsion Intravenous 1,594.468 ml @ 66.436 m... TPN CONT IV ; Start 11/27/16 at 22:00; Stop 11/28/16 at 21:59; Status Cancel Potassium Chloride/ Magnesium Sulfate/ Calcium Gluconate/ Multivitamins/ Chromium/Copper/ Manganese/Seleni/ Zn/Total Parenteral Nutrition/Amino Acids/ Dextrose/ Fat Emulsion Intravenous (Infuvite Adult/ Multitrace-5 Conc/ Tpn - Tpn Fluid/ Trophamine/ Dextrose 70%-Water Iv So... 1,512 ml @ 63 mls/hr TPN CONT IV Last administered on 11/27/16 21:22; Start 11/27/16 at 22:00; Stop at 21:59; Status DC Nitroglycerin 0.4 mg 0.4 mg STK-MED ONCE SL Last administered on 11/27/16 11: 26; Start 11/27/16 at 11:16; Stop 11/27/16 at 11:17; Status DC Albumin Human (Albuminar) 100 ml @ 100 mls/hr TID IV Last administered on 11/29 08:56; Start 11/27/16 at 12:00; Stop 11/29/16 at 09:59; Status DC Sodium Bicarbonate 50 meq 1X ONCE IV Last administered on 11/27/16 13:24; Start 11/27/16 at 12:45; Stop 11/27/16 at 12:46; Status DC Hydralazine HCl (Apresoline) 10 mg PRN Q4HRS PRN IVP ELEVATED BP, SEE COMMENTS Last administered on 11/28/16 00:40; Start 11/27/16 at 12:45 Metoprolol Tartrate (Lopressor) 5 mg Q6HRS IVP Last administered on 11/27/16 15:40; Start 11/27/16 at 15:30; Stop 11/27/16 at 19:11; Status DC Metoprolol Tartrate 5 mg 5 mg Q6HRS@04,10,16,22 IVP Last administered on 08:44; Start 11/27/16 at 22:00 Nicardipine HCl/ Sodium Chloride (Cardene/Iv Sodium Chloride 0.9% 250ml) 270 ml @ 0 mls/hr CONT PRN IV SEE I/O RECORD Last administered on 11/28/16 01:13; Start 11/27/16 at 20:45 Vancomycin HCl 1 each 1 each PRN DAILY PRN MC SEE COMMENTS Last administered on 11/27/16 21:38; Start 11/27/16 at 22:00; Stop 11/28/16 at 08:30; Status DC Vancomycin HCl 2 gm/Sodium Chloride 500 ml @ 250 mls/hr 1X ONCE IV Last administered on 11/27/16 22:57; Start 11/27/16 at 22:00; Stop 11/27/16 at 23:59 ; Status DC Vancomycin HCl/ Sodium Chloride (Iv Sodium Chloride 0.9% 500ml Bag) 500 ml @ 250 mls/hr Q24H IV ; Start 11/28/16 at 22:00; Stop 11/28/16 at 22:00; Status DC Vancomycin HCl 1 each 1X ONCE MC ; Start 11/29/16 at 21:30; Stop 11/29/16 at 21 :30; Status DC Insulin Aspart (Novolog) 0-7 UNITS Q6HRS SQ Last administered on 11/30/16 06: 28; Start 11/28/16 at 01:00 Linezolid 600 mg 600 mg BID PO ; Start 11/28/16 at 09:00; Stop 11/28/16 at 19:45 ; Status DC Pantoprazole Sodium/Sodium Chloride (Protonix Iv/Iv Sodium Chloride 0.9% 100ml) 100 ml @ 10 mls/hr Q10H PRN IV . Last administered on 11/30/16 04:21; Start 11/28/16 at 10:00 Ipratropium Benton (Atrovent) 0.5 mg RTQID NEB Last administered on 11/30/16 08:12; Start 11/28/16 at 12:00 Budesonide (Pulmicort) 0.5 mg RTBID NEB Last administered on 11/30/16 08:12; Start 11/28/16 at 20:00 Furosemide 40 mg 40 mg 1X ONCE IVP Last administered on 11/28/16 12:15; Start 11/28/16 at 12:15; Stop 11/28/16 at 12:16; Status DC Potassium Chloride/ Magnesium Sulfate/ Calcium Gluconate/ Multivitamins/ Chromium/Copper/ Manganese/Seleni/ Zn/Total Parenteral Nutrition/Amino Acids/ Dextrose/ Fat Emulsion Intravenous (Calcium Gluconate/ Infuvite Adult/ Multitrace-5 Conc/ Tpn - Tpn Fluid/ Trophami... 1,512 ml @ 63 mls/hr TPN CONT IV Last administered on 11/28/16 21:18; Start 11/28/16 at 22:00; Stop at 21:59; Status DC Lidocaine/Sodium Bicarbonate (Buffered Lidocaine 1%) 3 ml 1X ONCE IJ Last administered on 11/28/16 15:45; Start 11/28/16 at 14:45; Stop 11/28/16 at 14:46 ; Status DC Heparin Sodium/ Sodium Chloride 60 unit 1X ONCE IV Last administered on 15:45; Start 11/28/16 at 14:45; Stop 11/28/16 at 14:46; Status DC Heparin Sodium (Porcine) 2500 unit 2,500 unit 1X ONCE INT CAT Last administered on 11/28/16 15:45; Start 11/28/16 at 14:45; Stop 11/28/16 at 14:46 ; Status DC Linezolid 300 ml @ 300 mls/hr Q12HR IV Last administered on 11/30/16 08:44; Start 11/28/16 at 21:00 Potassium Chloride/ Potassium Acetate/ Magnesium Sulfate/ Calcium Gluconate/ Multivitamins/ Chromium/Copper/ Manganese/Seleni/ Zn/Total Parenteral Nutrition/ Amino Acids/Dextrose/ Fat Emulsion Intravenous (Calcium Gluconate/ Infuvite Adult/ Multitrace-5 Conc/ Tpn - Tpn Flu... 1,512 ml @ 63 mls/hr TPN CONT IV Last administered on 11/29/16 21:54; Start 11/29/16 at 22:00; Stop 11/30/16 at 21:59 Iohexol (Omnipaque 300 Mg/ml) 100 ml STK-MED ONCE .ROUTE ; Start 11/29/16 at 09: 12; Stop 11/29/16 at 09:13; Status DC Lidocaine/Sodium Bicarbonate 20 ml 20 ml STK-MED ONCE IJ ; Start 11/29/16 at 09: 12; Stop 11/29/16 at 09:13; Status DC Heparin Sodium/ Sodium Chloride 500 ml @ As Directed STK-MED ONCE .ROUTE ; Start 11/29/16 at 09:12; Stop 11/29/16 at 09:13; Status DC Lidocaine/Sodium Bicarbonate (Buffered Lidocaine 1%) 2 ml 1X ONCE IJ Last administered on 11/29/16 10:22; Start 11/29/16 at 10:00; Stop 11/29/16 at 10:15 ; Status DC Iohexol (Omnipaque 300 Mg/ml) 30 ml 1X ONCE IART Last administered on 10:22; Start 11/29/16 at 10:00; Stop 11/29/16 at 10:15; Status DC Heparin Sodium/ Sodium Chloride 1,000 unit 1X ONCE IV Last administered on 10:21; Start 11/29/16 at 10:00; Stop 11/29/16 at 10:15; Status DC Info 1 each 1 each PRN DAILY PRN MC SEE COMMENTS; Start 11/29/16 at 10:30; Stop 12/01/16 at 10:29 Heparin Sodium/ Dextrose 500 ml @ 0 mls/hr CONT PRN IV SEE I/O RECORD; Start at 15:15; Status UNV Heparin Sodium/ Dextrose 500 ml @ 0 mls/hr CONT PRN IV SEE I/O RECORD Last administered on 11/30/16 09:26; Start 11/29/16 at 15:15 Nitroglycerin/ Dextrose 250 ml @ 0 mls/hr CONT PRN IV SEE I/O RECORD Last administered on 3/26/17at 10:53; Start 11/30/16 at 10:45 Potassium Acetate/ Potassium Phosphate/ Magnesium Sulfate/ Calcium Gluconate/ Multivitamins/ Chromium/Copper/ Manganese/Seleni/ Zn/Insulin Human Regular/ Total Parenteral Nutrition/Amino Acids/Dextrose/ Fat Emulsion Intravenous ( Potassium Phosphate/Calcium Gluconate/ Infuvite Asim... 1,472.1 ml @ 63 mls/hr TPN CONT IV ; Start 11/30/16 at 22:00; Stop 12/01/16 at 21:21 Vitals/I & O Vital Sign - Last 24 Hours 11/29/16 11/29/16 11/29/16 11/29/16 11:00 11:57 12:00 12:00 Pulse 70 70 B/P 144/44 138/45 Pulse Ox 99 100 98 O2 Delivery BiPAP/CPAP BiPAP/CPAP Bi-pap BiPAP/CPAP O2 Flow Rate 15.0 11/29/16 11/29/16 11/29/16 11/29/16 12:27 13:00 13:50 14:00 Pulse 80 77 74 B/P 143/59 131/68 135/66 Pulse Ox 98 100 96 O2 Delivery BiPAP/CPAP BiPAP/CPAP BiPAP/CPAP 11/29/16 11/29/16 11/29/16 11/29/16 15:00 15:18 16:00 16:00 Pulse 70 70 B/P 132/65 145/60 Pulse Ox 97 100 97 O2 Delivery BiPAP/CPAP BiPAP/CPAP BiPAP/CPAP Bi-pap 11/29/16 11/29/16 11/29/16 11/29/16 17:00 18:00 19:20 19:21 Pulse 72 72 B/P 141/62 139/51 Pulse Ox 96 95 100 100 O2 Delivery BiPAP/CPAP BiPAP/CPAP BiPAP/CPAP BiPAP/CPAP 11/29/16 11/29/16 11/29/16 11/29/16 19:30 19:50 19:50 20:00 Temp 100.3 100.3 Pulse 66 75 Resp 20 20 B/P 180/64 174/66 Pulse Ox 100 100 O2 Delivery BiPAP/CPAP Nasal Cannula Nasal Cannula O2 Flow Rate 8.0 15.0 8.0 11/29/16 11/29/16 11/29/16 11/29/16 21:00 21:53 22:00 23:00 Pulse 85 78 72 81 Resp 22 B/P 185/66 185/66 174/64 176/64 Pulse Ox 97 98 99 O2 Delivery Nasal Cannula Nasal Cannula Nasal Cannula O2 Flow Rate 8.0 8.0 8.0 11/30/16 11/30/16 11/30/16 11/30/16 00:00 00:11 00:22 00:22 Temp 99.6 99.6 Pulse 68 Resp 18 B/P 168/63 Pulse Ox 100 99 O2 Delivery BiPAP/CPAP BiPAP/CPAP Nasal Cannula O2 Flow Rate 8.0 15.0 11/30/16 11/30/16 11/30/16 11/30/16 01:00 02:00 02:56 03:00 Pulse 61 66 56 Resp 18 18 18 B/P 182/72 161/53 150/56 Pulse Ox 100 100 100 100 O2 Delivery BiPAP/CPAP BiPAP/CPAP BiPAP/CPAP BiPAP/CPAP 11/30/16 11/30/16 11/30/16 11/30/16 04:00 04:00 04:00 04:21 Temp 99.8 99.8 Pulse 56 76 Resp 17 B/P 171/59 171/59 Pulse Ox 100 O2 Delivery BiPAP/CPAP Bi-pap O2 Flow Rate 15.0 11/30/16 11/30/16 11/30/16 11/30/16 05:05 05:28 06:19 07:00 Pulse 59 78 71 Resp B/P 153/60 165/73 191/69 Pulse Ox 100 99 96 97 O2 Delivery BiPAP/CPAP BiPAP/CPAP Nasal Cannula Nasal Cannula O2 Flow Rate 6.0 6.0 11/30/16 11/30/16 11/30/16 11/30/16 08:00 08:00 08:13 08:44 Temp 98.3 98.3 Pulse 70 79 Resp 20 B/P 189/53 189/53 Pulse Ox 100 96 O2 Delivery Nasal Cannula Nasal Cannula Simple Mask O2 Flow Rate 6.0 6.0 6.0 11/30/16 11/30/16 09:00 10:00 Pulse 66 70 Resp 19 19 B/P 169/61 184/64 Pulse Ox 100 100 O2 Delivery Nasal Cannula Nasal Cannula O2 Flow Rate 6.0 6.0 Intake and Output 11/29/16 11/29/1617 15:00 23:00 07:00 Intake Total 1776 ml Output Total 1150 ml 1501 ml 650 ml Balance -1150 ml 275 ml -650 ml EVELYNE ANTONIO MD Nov 30, 2016 10:57
--- NOTE | 2016-11-30 11:07 | PDOC ---
CARDIOLOGY PROGRESS NOTE SUBJECTIVE: No acute events overnight. Doing better today. more alert and talkative. OBJECTIVE: Vital SIgns: Vital Signs Date Time Temp Pulse Resp B/P Pulse Ox O2 Delivery O2 Flow Rate FiO2 11/30/16 10:00 70 19 184/64 100 Nasal Cannula 6.0 11/30/16 08:00 98.3 98.3 I & O Intake and Output 11/30/16 07:00 Intake Total 1776 ml Output Total 3301 ml Balance -1525 ml IV Total 1479 ml Blood Product 297 ml Output Urine Total 3300 ml Stool Total 1 ml Objective: Gen: A/O x 3. NAD CVS; RRR PULM: Decreased breath sounds, right base. ABd: Soft, NT/ND. NG tube in place EXt: No edema. NEURO:No focal deficits. CURRENT MEDICATIONS: NTG gtt. Hep gtt DIAGNOSTIC TESTING: Hgb 7.7 ASSESSMENT: 1. [place] 2. Ischemic CMP 3. Cardiac arrest 4. P.E. Problems: PLAN: 1. Continue current medical therapy. 2. Gentle diuresis. 3. Supportive care. Will defer cath for now. Consider when closer to discharge. FARIDA ALDRICH MD Nov 30, 2016 11:07
--- NOTE | 2016-11-30 11:30 | PDOC ---
PROGRESS NOTES Subjective Subjective hem f/u pe post cardiac arrest Have resumed heparin without bolus and overall hemoglobin looks stable. Had prior drop that I think was due to bleeding into tissues No other obvious bleeding - off bipap and on n/c today Objective Objective Vital Signs Date Time Temp Pulse Resp B/P Pulse Ox O2 Delivery O2 Flow Rate FiO2 11/30/16 10:00 70 19 184/64 100 Nasal Cannula 6.0 11/30/16 08:00 98.3 98.3 Intake and Output 11/30/16 07:00 Intake Total 1776 ml Output Total 3301 ml Balance -1525 ml IV Total 1479 ml Blood Product 297 ml Output Urine Total 3300 ml Stool Total 1 ml Physical Exam Abdomen: Soft, Other (has ng tube) General: Alert Skin: Other (has extensive ecchymosis right side chest flank to groin.) Assessment Assessment Problems Medical Problems: (1) Cardiac arrest Status: Acute PE Drop in hemoglobin likely due to bleed into tissue Thrombocytopenia which was present on admit and has fluctuated At present, I think continuing heparin gtt to keep anti xa level as close to lower limit of therapeutic range is optimal and if bleeds, could hold - does have filter, but given all events, I still think best served with anticoagulation As far as longer term, would need to see how his liver and renal functions are before deciding if candidate for noac or if warfarin best course, but suspect we are quite a few days away from that. Will let Dr White know of events for f/u tomorrow Comment Review of Relevant I have reviewed the following items rodolfo (where applicable) has been applied. Labs Laboratory Tests Test 11/28/16 12:24 11/28/16 15:00 11/28/16 16:05 11/28/16 16:50 O2 Saturation 96% (92-99) Arterial Blood pH 7.51 (7.35-7.45) Arterial Blood pCO2 at Patient Temp 32mmHg (35-46) Arterial Blood pO2 at Patient Temp 94mmHg (65-108) Arterial Blood HCO3 25mmol/L (21-28) Arterial Blood Base Excess 1mmol/L (-3-3) FiO2 50 Prothrombin Time 14.2SEC (11.7-14.0) Prothromb Time International Ratio 1.2 (0.8-1.1) Heparin Anti-Xa Act, Unfractionated 0.86IU/mL (0.30-0.70) Glucose (Fingerstick) 162mg/dL (70-99) White Blood Count 13.1x10^3/uL (4.0-11.0) Red Blood Count 1.91x10^6/uL (4.30-5.70) Hemoglobin 5.7g/dL (13.0-17.5) Hematocrit 16.8% (39.0-53.0) Mean Corpuscular Volume 88fL (79-100) Mean Corpuscular Hemoglobin 30pg (25-35) Mean Corpuscular Hemoglobin Concent 34g/dL (31-37) Red Cell Distribution Width 13.8% (11.5-14.5) Platelet Count 108x10^3/uL (140-400) Test 11/29/16 00:03 11/29/16 06:20 11/29/16 06:26 11/29/16 12:12 Glucose (Fingerstick) 213mg/dL (70-99) 182mg/dL (70-99) White Blood Count 10.3x10^3/uL (4.0-11.0) Red Blood Count 2.27x10^6/uL (4.30-5.70) Hemoglobin 6.9g/dL (13.0-17.5) Hematocrit 20.3% (39.0-53.0) Mean Corpuscular Volume 90fL (79-100) Mean Corpuscular Hemoglobin 31pg (25-35) Mean Corpuscular Hemoglobin Concent 34g/dL (31-37) Red Cell Distribution Width 14.9% (11.5-14.5) Platelet Count 84x10^3/uL (140-400) Neutrophils (%) (Auto) 75% (31-73) Lymphocytes (%) (Auto) 9% (24-48) Monocytes (%) (Auto) 13% (0-9) Eosinophils (%) (Auto) 4% (0-3) Basophils (%) (Auto) 0% (0-3) Neutrophils # (Auto) 7.7x10^3uL (1.8-7.7) Lymphocytes # (Auto) 0.9x10^3/uL (1.0-4.8) Monocytes # (Auto) 1.3x10^3/uL (0.0-1.1) Eosinophils # (Auto) 0.4x10^3/uL (0.0-0.7) Basophils # (Auto) 0.0x10^3/uL (0.0-0.2) Sodium Level 145mmol/L (136-145) Potassium Level 3.9mmol/L (3.5-5.1) Chloride Level 109mmol/L (98-107) Carbon Dioxide Level 26mmol/L (21-32) Anion Gap 10 (6-14) Blood Urea Nitrogen 42mg/dL (8-26) Creatinine 2.1mg/dL (0.7-1.3) Estimated GFR (Cockcroft-Gault) 31.3 Glucose Level 196mg/dL (70-99) Calcium Level 7.8mg/dL (8.5-10.1) Phosphorus Level 3.1mg/dL (2.6-4.7) Magnesium Level 2.4mg/dL (1.8-2.4) Creatine Kinase 473U/L (39-308) Albumin 2.9g/dL (3.4-5.0) Activated Partial Thromboplast Time 31SEC (24-38) Heparin Anti-Xa Act, Unfractionated < 0.10IU/mL (0.30-0.70) Test 11/29/16 12:25 11/29/16 17:49 11/29/16 20:39 11/29/16 20:57 Glucose (Fingerstick) 235mg/dL (70-99) 198mg/dL (70-99) Hemoglobin 8.0g/dL (13.0-17.5) Hematocrit 23.5% (39.0-53.0) Activated Partial Thromboplast Time 41SEC (24-38) Heparin Anti-Xa Act, Unfractionated < 0.10IU/mL (0.30-0.70) Test 11/30/16 00:13 11/30/16 04:30 Glucose (Fingerstick) 246mg/dL (70-99) White Blood Count 9.6x10^3/uL (4.0-11.0) Red Blood Count 2.54x10^6/uL (4.30-5.70) Hemoglobin 7.7g/dL (13.0-17.5) Hematocrit 22.0% (39.0-53.0) Mean Corpuscular Volume 87fL (79-100) Mean Corpuscular Hemoglobin 30pg (25-35) Mean Corpuscular Hemoglobin Concent 35g/dL (31-37) Red Cell Distribution Width 15.4% (11.5-14.5) Platelet Count 70x10^3/uL (140-400) Heparin Anti-Xa Act, Unfractionated 0.17IU/mL (0.30-0.70) Sodium Level 145mmol/L (136-145) Potassium Level 3.9mmol/L (3.5-5.1) Chloride Level 109mmol/L (98-107) Carbon Dioxide Level 27mmol/L (21-32) Anion Gap 9 (6-14) Blood Urea Nitrogen 41mg/dL (8-26) Creatinine 1.8mg/dL (0.7-1.3) Estimated GFR (Cockcroft-Gault) 37.4 Glucose Level 240mg/dL (70-99) Calcium Level 7.8mg/dL (8.5-10.1) Phosphorus Level 2.8mg/dL (2.6-4.7) Magnesium Level 2.3mg/dL (1.8-2.4) Creatine Kinase 286U/L (39-308) Albumin 2.7g/dL (3.4-5.0) Laboratory Tests Test 11/29/16 12:12 11/29/16 12:25 11/29/16 17:49 11/29/16 20:39 Activated Partial Thromboplast Time 31SEC (24-38) 41SEC (24-38) Heparin Anti-Xa Act, Unfractionated < 0.10IU/mL (0.30-0.70) Glucose (Fingerstick) 235mg/dL (70-99) 198mg/dL (70-99) Hemoglobin 8.0g/dL (13.0-17.5) Hematocrit 23.5% (39.0-53.0) Test 11/29/16 20:57 11/30/16 00:13 11/30/16 04:30 Heparin Anti-Xa Act, Unfractionated < 0.10IU/mL (0.30-0.70) 0.17IU/mL (0.30-0.70) Glucose (Fingerstick) 246mg/dL (70-99) White Blood Count 9.6x10^3/uL (4.0-11.0) Red Blood Count 2.54x10^6/uL (4.30-5.70) Hemoglobin 7.7g/dL (13.0-17.5) Hematocrit 22.0% (39.0-53.0) Mean Corpuscular Volume 87fL (79-100) Mean Corpuscular Hemoglobin 30pg (25-35) Mean Corpuscular Hemoglobin Concent 35g/dL (31-37) Red Cell Distribution Width 15.4% (11.5-14.5) Platelet Count 70x10^3/uL (140-400) Sodium Level 145mmol/L (136-145) Potassium Level 3.9mmol/L (3.5-5.1) Chloride Level 109mmol/L (98-107) Carbon Dioxide Level 27mmol/L (21-32) Anion Gap 9 (6-14) Blood Urea Nitrogen 41mg/dL (8-26) Creatinine 1.8mg/dL (0.7-1.3) Estimated GFR (Cockcroft-Gault) 37.4 Glucose Level 240mg/dL (70-99) Calcium Level 7.8mg/dL (8.5-10.1) Phosphorus Level 2.8mg/dL (2.6-4.7) Magnesium Level 2.3mg/dL (1.8-2.4) Creatine Kinase 286U/L (39-308) Albumin 2.7g/dL (3.4-5.0) Microbiology 11/28/16 Blood Culture - Preliminary, Resulted NO GROWTH AFTER 2 DAYS 11/24/16 Stool Culture - Final, Complete 11/24/16 Stool Culture Result 1 (ROSIE) - Final, Complete 11/24/16 Campylobacter Antigen Assay - Final, Complete 11/24/16 Campylobactor Result 1 - Final, Complete 11/24/16 Shiga Toxin Test - Final, Complete 11/25/16 Urine Culture - Final, Complete 11/25/16 Urine Culture Result 1 (ROSIE) - Final, Complete Medications Current Medications Sodium Chloride 1,000 ml @ 1,000 mls/hr Q1H IV Last administered on 11/24/16 06:50; Start 11/24/16 at 06:50; Stop 11/24/16 at 07:49; Status DC Epinephrine HCl/ Sodium Chloride (Adrenalin/Iv Sodium Chloride 0.9% 250ml) 254 ml @ 0 mls/hr CONT PRN IV SEE I/O RECORD Last administered on 11/26/16 03:05; Start 11/24/16 at 07:30; Stop 11/27/16 at 08:25; Status DC Insulin Aspart (Novolog) 0-7 UNITS TIDWMEALS SQ ; Start 11/24/16 at 08:00; Stop 11/24/16 at 15:36; Status DC Dextrose 12.5 gm 12.5 gm PRN Q15MIN PRN IV SEE COMMENTS; Start 11/24/16 at 07: 45; Stop 11/25/16 at 23:34; Status DC Sodium Chloride (Iv Sodium Chloride 0.9% 1000ml Bag) 1,000 ml @ 125 mls/hr 1X ONCE IV Last administered on 11/24/16 07:52; Start 11/24/16 at 08:00; Stop at 08:20; Status DC Vancomycin HCl (Vanco Per Pharmacy) 1 each PRN DAILY PRN MC SEE COMMENTS Last administered on 11/24/16 11:26; Start 11/24/16 at 08:15; Stop 11/24/16 at 13:06 ; Status DC Piperacillin Sod/ Tazobactam Sod 1 each 1 each PRN DAILY PRN MC SEE COMMENTS; Start 11/24/16 at 08:15; Stop 11/24/16 at 13:06; Status DC Sodium Bicarbonate 50 meq/Sodium Chloride 1,050 ml @ 125 mls/hr Q8H24M IV Last administered on 11/26/16 11:24; Start 11/24/16 at 08:30; Stop 11/26/16 at 12:41; Status DC Vancomycin HCl 2 gm/Sodium Chloride 500 ml @ 250 mls/hr ONCE ONCE IV Last administered on 11/24/16 10:15; Start 11/24/16 at 08:30; Stop 11/24/16 at 10:29 ; Status DC Piperacillin Sod/ Tazobactam Sod 4.5 gm/Sodium Chloride 100 ml @ 200 mls/hr Q6HRS IV Last administered on 11/24/16 10:10; Start 11/24/16 at 08:30; Stop at 11:15; Status DC Sodium Chloride (Iv Sodium Chloride 0.9% 1000ml Bag) 1,000 ml @ 1,000 mls/hr Q1H IV Last administered on 11/24/16 10:09; Start 11/24/16 at 08:39; Stop at 11:47; Status DC Fentanyl Citrate (Fentanyl 2ml Vial) 25 mcg PRN Q30MIN PRN IV SED; Start at 08:45 Lorazepam 1 mg 1 mg PRN Q30MIN PRN IV SEDATION Last administered on 11/25/16 12:26; Start 11/24/16 at 08:45; Stop 11/28/16 at 19:45; Status DC Fentanyl Citrate 30 ml @ 2.5 mls/hr CONT PRN PRN IV IVF Last administered on 07:40; Start 11/24/16 at 08:45; Stop 11/26/16 at 17:49; Status DC Propofol (Diprivan) 100 ml @ 0 mls/hr CONT PRN IV SEE I/O RECORD Last administered on 11/26/16 07:38; Start 11/24/16 at 08:45; Stop 11/26/16 at 17:49 ; Status DC Vecuronium [place] (Norcuron Bolus) 9 mg PRN Q30MIN PRN IV SHIVERING Last administered on 11/24/16 17:38; Start 11/24/16 at 08:45; Stop 11/26/16 at 17:49 ; Status DC Meperidine HCl (Demerol) 12.5 mg PRN Q30MIN PRN IV SHIVERING Last administered on 11/24/16 22:21; Start 11/24/16 at 08:45; Stop 11/24/16 at 22:21; Status DC Multi-Ingred Cream/Lotion/Oil/ Oint (Artificial Tears Eye Oint) 1 radha PRN Q6HRS PRN OU 0.5 INCH FOR DRY EYE; Start 11/24/16 at 08:45 Famotidine (Pepcid) 20 mg QHS IVP Last administered on 11/27/16 21:12; Start 11/24/16 at 21:00; Stop 11/28/16 at 09:46; Status DC Aspirin (Aspirin) 300 mg DAILY SD Last administered on 11/30/16 07:38; Start 11/24/16 at 09:00 Sodium Chloride (Normal Saline Flush) 3 ml QSHIFT PRN IV AFTER MEDS AND BLOOD DRAWS; Start 11/24/16 at 08:45 Acetaminophen (Tylenol) 650 mg Q6HRS NG ; Start 11/24/16 at 12:00; Stop at 11:59; Status DC Acetaminophen (Tylenol) 650 mg PRN Q6HRS PRN SD MILD PAIN / TEMP; Start at 08:45; Stop 11/25/16 at 23:35; Status DC Acetaminophen (Tylenol) 650 mg PRN Q6HRS PRN NG MILD PAIN / TEMP; Start at 08:45 Info 1 ea 1 ea DAILY PRN MC PER PROTOCOL; Start 11/26/16 at 08:45 Insulin Human Regular 150 unit/ Sodium Chloride 151.5 ml @ 9.16 mls/hr CONT PRN IV SEE I/O RECORD Last administered on 11/24/16 10:13; Start 11/24/16 at 09 :30; Stop 11/27/16 at 08:25; Status DC Piperacillin Sod/ Tazobactam Sod 3.375 gm/Sodium Chloride 50 ml @ 100 mls/hr Q6HRS IV ; Start 11/24/16 at 18:00; Stop 11/24/16 at 18:00; Status DC Vancomycin HCl/ Sodium Chloride (Iv Sodium Chloride 0.9% 500ml Bag) 500 ml @ 250 mls/hr Q24H IV ; Start 11/25/16 at 10:00; Stop 11/25/16 at 10:00; Status DC Vancomycin HCl 1 each 1 each 1X ONCE MC ; Start 11/26/16 at 09:30; Stop at 09:30; Status DC Sodium Chloride (Iv Sodium Chloride 0.9% 1000ml Bag) 1,000 ml @ 1,000 mls/hr 1X ONCE IV Last administered on 11/24/16 11:00; Start 11/24/16 at 11:00; Stop 11/24/16 at 11:59; Status DC Insulin Detemir (Levemir) 12 units QHS SQ ; Start 11/24/16 at 21:00; Stop at 21:00; Status DC Insulin Aspart (Novolog) 10 units 1X ONCE SQ ; Start 11/24/16 at 15:30; Stop at 20:10; Status DC Insulin Aspart (Novolog) 0-7 UNITS Q4HRS SQ ; Start 11/24/16 at 16:00; Stop at 20:10; Status DC Heparin Sodium (Porcine) 8100 unit 8,100 unit 1X ONCE IV Last administered on 11/24/16 17:24; Start 11/24/16 at 17:00; Stop 11/24/16 at 17:01; Status DC Heparin Sodium/ Dextrose 500 ml @ 0 mls/hr CONT PRN IV SEE I/O RECORD Last administered on 11/28/16 02:06; Start 11/24/16 at 16:45; Stop 11/28/16 at 17:12 ; Status DC Heparin Sodium (Porcine) 3,000 unit PRN Q6HRS PRN IV FOR UFH LEVEL LESS THAN 0.2; Start 11/24/16 at 16:45; Stop 11/28/16 at 17:12; Status DC Heparin Sodium (Porcine) 1,500 unit PRN Q6HRS PRN IV FOR UFH LEVEL 0.2 - 0.29 Last administered on 11/26/16 12:08; Start 11/24/16 at 16:45; Stop 11/28/16 at 17:12; Status DC Info 1 each 1 each PRN DAILY PRN MC SEE COMMENTS Last administered on 10:03; Start 11/24/16 at 17:00; Stop 11/28/16 at 17:13; Status DC Piperacillin Sod/ Tazobactam Sod 3.375 gm/Sodium Chloride 50 ml @ 100 mls/hr Q6HRS IV Last administered on 11/30/16 11:25; Start 11/25/16 at 00:00 Vancomycin HCl/ Sodium Chloride (Iv Sodium Chloride 0.9% 250ml) 250 ml @ 250 mls/hr 1X ONCE IV ; Start 11/24/16 at 21:30; Stop 11/24/16 at 22:29; Status UNV Vancomycin HCl 1 each 1 each PRN DAILY PRN MC SEE COMMENTS Last administered on 11/25/16 03:30; Start 11/25/16 at 01:00; Stop 11/25/16 at 08:57; Status DC Vancomycin HCl/ Sodium Chloride (Iv Sodium Chloride 0.9% 500ml Bag) 500 ml @ 250 mls/hr Q24H IV ; Start 11/25/16 at 10:00; Stop 11/25/16 at 10:00; Status DC Vancomycin HCl 1 each 1X ONCE MC ; Start 11/26/16 at 09:30; Stop 11/26/16 at 09 :30; Status DC Enoxaparin Sodium (Lovenox Per Pharmacy Prophylaxis Dosing) 1 each PRN DAILY PRN MC SEE COMMENTS; Start 11/25/16 at 08:45; Status UNV Chlorhexidine Gluconate 15 ml 15 ml BID MM Last administered on 11/26/16 08:37 ; Start 11/25/16 at 21:00; Stop 11/26/16 at 17:49; Status DC Magnesium Sulfate/ Dextrose 50 ml @ 25 mls/hr PRN DAILY PRN IV for Mag < 1.7 on am labs Last administered on 11/26/16 05:29; Start 11/25/16 at 09:45; Stop 11/27/16 at 08:47; Status DC Magnesium Sulfate/ Dextrose 50 ml @ 25 mls/hr PRN DAILY PRN IV for Mag < 1.7 on am labs; Start 11/25/16 at 09:45; Status UNV Sodium Chloride 500 ml @ 0 mls/hr QID PRN IV UO< 30cc/hr over previous 6hrs Last administered on 11/25/16 10:54; Start 11/25/16 at 09:45; Stop 11/27/16 at 11:25; Status DC Magnesium Sulfate/ Dextrose (Magnesium Sulfate PREMIX 2GM) 50 ml @ 25 mls/hr 1X ONCE IV Last administered on 11/25/16 13:28; Start 11/25/16 at 12:30; Stop 11/25/16 at 14:29; Status DC Lidocaine/Sodium Bicarbonate 20 ml 20 ml STK-MED ONCE IJ ; Start 11/25/16 at 12: 35; Stop 11/25/16 at 12:36; Status DC Heparin Sodium/ Sodium Chloride 500 ml @ As Directed STK-MED ONCE .ROUTE ; Start 11/25/16 at 12:35; Stop 11/25/16 at 12:36; Status DC Lidocaine/Sodium Bicarbonate (Buffered Lidocaine 1%) 3 ml 1X ONCE IJ Last administered on 11/25/16 13:15; Start 11/25/16 at 13:15; Stop 11/25/16 at 13:16 ; Status DC Heparin Sodium/ Sodium Chloride 60 unit 1X ONCE IV Last administered on 13:16; Start 11/25/16 at 13:15; Stop 11/25/16 at 13:16; Status DC Amiodarone HCl (Cordarone) 450 mg STK-MED ONCE .ROUTE ; Start 11/25/16 at 12:00 ; Stop 11/25/16 at 14:56; Status DC Epinephrine HCl (Adrenalin) 30 mg STK-MED ONCE .ROUTE ; Start 11/25/16 at 12:00 ; Stop 11/25/16 at 14:56; Status DC Atropine Sulfate 1.5 mg STK-MED ONCE .ROUTE ; Start 11/25/16 at 12:00; Stop at 14:56; Status DC Epinephrine HCl 4 mg STK-MED ONCE .ROUTE ; Start 11/25/16 at 12:00; Stop at 14:56; Status DC Sodium Bicarbonate 150 meq 150 meq STK-MED ONCE .ROUTE ; Start 11/25/16 at 12:00 ; Stop 11/25/16 at 14:56; Status DC Midazolam HCl (Versed 100mg/ 100ml Premix) 100 ml @ 0 mls/hr CONT PRN IV SEE I/ O RECORD; Start 11/25/16 at 23:30; Stop 11/26/16 at 17:49; Status DC Insulin Aspart (Novolog) 0-7 UNITS TIDWMEALS SQ Last administered on 11/27/16 19:43; Start 11/26/16 at 08:00; Stop 11/28/16 at 01:01; Status DC Dextrose 12.5 gm PRN Q15MIN PRN IV SEE COMMENTS; Start 11/25/16 at 23:30 Acetaminophen 650 mg 650 mg PRN Q6HRS PRN SD MILD PAIN / TEMP Last administered on 11/28/16 04:19; Start 11/25/16 at 23:30 Potassium Chloride 50 ml @ 50 mls/hr Q1H IV Last administered on 11/26/16 11: 23; Start 11/26/16 at 10:30; Stop 11/26/16 at 12:29; Status DC Sodium Bicarbonate/ Sterile Water 1,100 ml @ 100 mls/hr Q11H IV Last administered on 11/27/16 00:56; Start 11/26/16 at 13:00; Stop 11/27/16 at 11:25 ; Status DC Info 1 each 1 each PRN DAILY PRN MC SEE COMMENTS Last administered on 10:45; Start 11/26/16 at 12:45 Calcium Chloride/ Sodium Chloride (Iv Sodium Chloride 0.9% 100ml) 120 ml @ 240 mls/hr 1X ONCE IV Last administered on 11/26/16 13:22; Start 11/26/16 at 13: 15; Stop 11/26/16 at 13:44; Status DC Ondansetron HCl 4 mg 4 mg PRN Q6HRS PRN IV NAUSEA/VOMITING Last administered on 11/26/16 13:56; Start 11/26/16 at 13:45 Sodium Chloride/ Potassium Chloride/ Magnesium Sulfate/ Calcium Gluconate/ Multivitamins/ Chromium/Copper/ Manganese/Seleni/ Zn/Total Parenteral Nutrition/ Amino Acids/Dextrose/ Fat Emulsion Intravenous (Sodium Chloride/ Infuvite Adult / Multitrace-5 Conc/ Tpn - Tpn Fluid/ Trophami... 1,594.468 ml @ 66.436 m... TPN CONT IV Last administered on 11/26/16 21:27; Start 11/26/16 at 22:00; Stop 11/27/16 at 21:59; Status DC Albuterol Sulfate 2.5 mg 2.5 mg 1X ONCE NEB Last administered on 11/27/16 07: 21; Start 11/27/16 at 06:45; Stop 11/27/16 at 06:46; Status DC Magnesium Sulfate/ Dextrose 50 ml @ 25 mls/hr PRN DAILY PRN IV for Mag < 1.7 on am labs; Start 11/27/16 at 08:45 Sodium Chloride 90 meq/Potassium Chloride 50 meq/ Magnesium Sulfate 10 meq/ Calcium Gluconate 10 meq/ Multivitamins 10 ml/Chromium/ Copper/Manganese/ Seleni /Zn 1 ml/ Total Parenteral Nutrition/Amino Acids/Dextrose/ Fat Emulsion Intravenous 1,594.468 ml @ 66.436 m... TPN CONT IV ; Start 11/27/16 at 22:00; Stop 11/28/16 at 21:59; Status Cancel Potassium Chloride/ Magnesium Sulfate/ Calcium Gluconate/ Multivitamins/ Chromium/Copper/ Manganese/Seleni/ Zn/Total Parenteral Nutrition/Amino Acids/ Dextrose/ Fat Emulsion Intravenous (Infuvite Adult/ Multitrace-5 Conc/ Tpn - Tpn Fluid/ Trophamine/ Dextrose 70%-Water Iv So... 1,512 ml @ 63 mls/hr TPN CONT IV Last administered on 11/27/16 21:22; Start 11/27/16 at 22:00; Stop at 21:59; Status DC Nitroglycerin 0.4 mg 0.4 mg STK-MED ONCE SL Last administered on 11/27/16 11: 26; Start 11/27/16 at 11:16; Stop 11/27/16 at 11:17; Status DC Albumin Human (Albuminar) 100 ml @ 100 mls/hr TID IV Last administered on 11/29 08:56; Start 11/27/16 at 12:00; Stop 11/29/16 at 09:59; Status DC Sodium Bicarbonate 50 meq 1X ONCE IV Last administered on 11/27/16 13:24; Start 11/27/16 at 12:45; Stop 11/27/16 at 12:46; Status DC Hydralazine HCl (Apresoline) 10 mg PRN Q4HRS PRN IVP ELEVATED BP, SEE COMMENTS Last administered on 11/28/16 00:40; Start 11/27/16 at 12:45 Metoprolol Tartrate (Lopressor) 5 mg Q6HRS IVP Last administered on 11/27/16 15:40; Start 11/27/16 at 15:30; Stop 11/27/16 at 19:11; Status DC Metoprolol Tartrate 5 mg 5 mg Q6HRS@04,10,16,22 IVP Last administered on 08:44; Start 11/27/16 at 22:00 Nicardipine HCl/ Sodium Chloride (Cardene/Iv Sodium Chloride 0.9% 250ml) 270 ml @ 0 mls/hr CONT PRN IV SEE I/O RECORD Last administered on 11/28/16 01:13; Start 11/27/16 at 20:45 Vancomycin HCl 1 each 1 each PRN DAILY PRN MC SEE COMMENTS Last administered on 11/27/16 21:38; Start 11/27/16 at 22:00; Stop 11/28/16 at 08:30; Status DC Vancomycin HCl 2 gm/Sodium Chloride 500 ml @ 250 mls/hr 1X ONCE IV Last administered on 11/27/16 22:57; Start 11/27/16 at 22:00; Stop 11/27/16 at 23:59 ; Status DC Vancomycin HCl/ Sodium Chloride (Iv Sodium Chloride 0.9% 500ml Bag) 500 ml @ 250 mls/hr Q24H IV ; Start 11/28/16 at 22:00; Stop 11/28/16 at 22:00; Status DC Vancomycin HCl 1 each 1X ONCE MC ; Start 11/29/16 at 21:30; Stop 11/29/16 at 21 :30; Status DC Insulin Aspart (Novolog) 0-7 UNITS Q6HRS SQ Last administered on 11/30/16 06: 28; Start 11/28/16 at 01:00 Linezolid 600 mg 600 mg BID PO ; Start 11/28/16 at 09:00; Stop 11/28/16 at 19:45 ; Status DC Pantoprazole Sodium/Sodium Chloride (Protonix Iv/Iv Sodium Chloride 0.9% 100ml) 100 ml @ 10 mls/hr Q10H PRN IV . Last administered on 11/30/16 04:21; Start 11/28/16 at 10:00 Ipratropium [place] (Atrovent) 0.5 mg RTQID NEB Last administered on 11/30/16 08:12; Start 11/28/16 at 12:00 Budesonide (Pulmicort) 0.5 mg RTBID NEB Last administered on 11/30/16 08:12; Start 11/28/16 at 20:00 Furosemide 40 mg 40 mg 1X ONCE IVP Last administered on 11/28/16 12:15; Start 11/28/16 at 12:15; Stop 11/28/16 at 12:16; Status DC Potassium Chloride/ Magnesium Sulfate/ Calcium Gluconate/ Multivitamins/ Chromium/Copper/ Manganese/Seleni/ Zn/Total Parenteral Nutrition/Amino Acids/ Dextrose/ Fat Emulsion Intravenous (Calcium Gluconate/ Infuvite Adult/ Multitrace-5 Conc/ Tpn - Tpn Fluid/ Trophami... 1,512 ml @ 63 mls/hr TPN CONT IV Last administered on 11/28/16 21:18; Start 11/28/16 at 22:00; Stop at 21:59; Status DC Lidocaine/Sodium Bicarbonate (Buffered Lidocaine 1%) 3 ml 1X ONCE IJ Last administered on 11/28/16 15:45; Start 11/28/16 at 14:45; Stop 11/28/16 at 14:46 ; Status DC Heparin Sodium/ Sodium Chloride 60 unit 1X ONCE IV Last administered on 15:45; Start 11/28/16 at 14:45; Stop 11/28/16 at 14:46; Status DC Heparin Sodium (Porcine) 2500 unit 2,500 unit 1X ONCE INT CAT Last administered on 11/28/16 15:45; Start 11/28/16 at 14:45; Stop 11/28/16 at 14:46 ; Status DC Linezolid 300 ml @ 300 mls/hr Q12HR IV Last administered on 11/30/16 08:44; Start 11/28/16 at 21:00 Potassium Chloride/ Potassium Acetate/ Magnesium Sulfate/ Calcium Gluconate/ Multivitamins/ Chromium/Copper/ Manganese/Seleni/ Zn/Total Parenteral Nutrition/ Amino Acids/Dextrose/ Fat Emulsion Intravenous (Calcium Gluconate/ Infuvite Adult/ Multitrace-5 Conc/ Tpn - Tpn Flu... 1,512 ml @ 63 mls/hr TPN CONT IV Last administered on 11/29/16 21:54; Start 11/29/16 at 22:00; Stop 11/30/16 at 21:59 Iohexol (Omnipaque 300 Mg/ml) 100 ml STK-MED ONCE .ROUTE ; Start 11/29/16 at 09: 12; Stop 11/29/16 at 09:13; Status DC Lidocaine/Sodium Bicarbonate 20 ml 20 ml STK-MED ONCE IJ ; Start 11/29/16 at 09: 12; Stop 11/29/16 at 09:13; Status DC Heparin Sodium/ Sodium Chloride 500 ml @ As Directed STK-MED ONCE .ROUTE ; Start 11/29/16 at 09:12; Stop 11/29/16 at 09:13; Status DC Lidocaine/Sodium Bicarbonate (Buffered Lidocaine 1%) 2 ml 1X ONCE IJ Last administered on 11/29/16 10:22; Start 11/29/16 at 10:00; Stop 11/29/16 at 10:15 ; Status DC Iohexol (Omnipaque 300 Mg/ml) 30 ml 1X ONCE IART Last administered on 10:22; Start 11/29/16 at 10:00; Stop 11/29/16 at 10:15; Status DC Heparin Sodium/ Sodium Chloride 1,000 unit 1X ONCE IV Last administered on 10:21; Start 11/29/16 at 10:00; Stop 11/29/16 at 10:15; Status DC Info 1 each 1 each PRN DAILY PRN MC SEE COMMENTS; Start 11/29/16 at 10:30; Stop 12/01/16 at 10:29 Heparin Sodium/ Dextrose 500 ml @ 0 mls/hr CONT PRN IV SEE I/O RECORD; Start at 15:15; Status UNV Heparin Sodium/ Dextrose 500 ml @ 0 mls/hr CONT PRN IV SEE I/O RECORD Last administered on 11/30/16 09:26; Start 11/29/16 at 15:15 Nitroglycerin/ Dextrose 250 ml @ 0 mls/hr CONT PRN IV SEE I/O RECORD Last administered on 11/30/16 10:53; Start 11/30/16 at 10:45 Potassium Acetate/ Potassium Phosphate/ Magnesium Sulfate/ Calcium Gluconate/ Multivitamins/ Chromium/Copper/ Manganese/Seleni/ Zn/Insulin Human Regular/ Total Parenteral Nutrition/Amino Acids/Dextrose/ Fat Emulsion Intravenous ( Potassium Phosphate/Calcium Gluconate/ Infuvite Asim... 1,472.1 ml @ 63 mls/hr TPN CONT IV ; Start 11/30/16 at 22:00; Stop 12/01/16 at 21:21 Vitals/I & O Vital Sign - Last 24 Hours 11/29/16 11/29/16 11/29/16 11/29/16 11:57 12:00 12:00 12:27 Pulse 70 80 B/P 138/45 143/59 Pulse Ox 100 98 O2 Delivery BiPAP/CPAP Bi-pap BiPAP/CPAP O2 Flow Rate 15.0 11/29/16 11/29/16 11/29/16 11/29/16 13:00 13:50 14:00 15:00 Pulse 77 74 70 B/P 131/68 135/66 132/65 Pulse Ox 98 100 96 97 O2 Delivery BiPAP/CPAP BiPAP/CPAP BiPAP/CPAP BiPAP/CPAP 11/29/16 11/29/16 11/29/16 11/29/16 15:18 16:00 16:00 17:00 Pulse 70 72 B/P 145/60 141/62 Pulse Ox 100 97 96 O2 Delivery BiPAP/CPAP BiPAP/CPAP Bi-pap BiPAP/CPAP 11/29/16 11/29/16 11/29/16 11/29/16 18:00 19:20 19:21 19:30 Temp 100.3 100.3 Pulse 72 66 Resp 20 B/P 139/51 180/64 Pulse Ox 95 100 100 100 O2 Delivery BiPAP/CPAP BiPAP/CPAP BiPAP/CPAP BiPAP/CPAP 11/29/16 11/29/16 11/29/16 11/29/16 19:50 19:50 20:00 21:00 Pulse 75 85 Resp 20 24 B/P 174/66 185/66 Pulse Ox 100 97 O2 Delivery Nasal Cannula Nasal Cannula Nasal Cannula O2 Flow Rate 8.0 15.0 8.0 8.0 11/29/16 11/29/16 11/29/16 11/30/16 21:53 22:00 23:00 00:00 Temp 99.6 99.6 Pulse 78 72 81 68 Resp 26 22 18 B/P 185/66 174/64 176/64 168/63 Pulse Ox 98 99 100 O2 Delivery Nasal Cannula Nasal Cannula BiPAP/CPAP O2 Flow Rate 8.0 8.0 11/30/16 11/30/16 11/30/16 11/30/16 00:11 00:22 00:22 01:00 Pulse 61 Resp 18 B/P 182/72 Pulse Ox 99 100 O2 Delivery BiPAP/CPAP Nasal Cannula BiPAP/CPAP O2 Flow Rate 8.0 15.0 11/30/16 11/30/16 11/30/16 11/30/16 02:00 02:56 03:00 04:00 Pulse 66 56 Resp 18 18 B/P 161/53 150/56 Pulse Ox 100 100 100 O2 Delivery BiPAP/CPAP BiPAP/CPAP BiPAP/CPAP O2 Flow Rate 15.0 11/30/16 11/30/16 11/30/16 11/30/16 04:00 04:00 04:21 05:05 Temp 99.8 99.8 Pulse 56 76 59 Resp 17 18 B/P 171/59 171/59 153/60 Pulse Ox 100 100 O2 Delivery BiPAP/CPAP Bi-pap BiPAP/CPAP 11/30/16 11/30/16 11/30/16 11/30/16 05:28 06:19 07:00 08:00 Pulse 78 71 Resp 22 B/P 165/73 191/69 Pulse Ox 99 96 97 O2 Delivery BiPAP/CPAP Nasal Cannula Nasal Cannula Nasal Cannula O2 Flow Rate 6.0 6.0 6.0 11/30/16 11/30/16 11/30/16 11/30/16 08:00 08:13 08:44 09:00 Temp 98.3 98.3 Pulse 70 79 66 Resp 20 19 B/P 189/53 189/53 169/61 Pulse Ox 100 96 100 O2 Delivery Nasal Cannula Simple Mask Nasal Cannula O2 Flow Rate 6.0 6.0 6.0 11/30/16 10:00 Pulse 70 Resp 19 B/P 184/64 Pulse Ox 100 O2 Delivery Nasal Cannula O2 Flow Rate 6.0 Intake and Output 11/29/16 11/29/16 11/30/16 15:00 23:00 07:00 Intake Total 1776 ml Output Total 1150 ml 1501 ml 650 ml Balance -1150 ml 275 ml -650 ml EPIFANIO BESS MD Nov 30, 2016 11:30
--- NOTE | 2016-11-30 14:36 | PDOC ---
Subjective: Subjective: hgb stable. No GI evidence of bleeding Objective: Vital Signs: Vital Signs Date Time Temp Pulse Resp B/P Pulse Ox O2 Delivery O2 Flow Rate FiO2 11/30/16 14:00 68 16 137/67 100 BiPAP/CPAP 11/30/16 13:05 3.0 11/30/16 12:00 98.3 98.3 Labs: Laboratory Tests Test 11/29/16 17:49 11/29/16 20:39 11/29/16 20:57 11/30/16 00:13 Glucose (Fingerstick) 198mg/dL (70-99) 246mg/dL (70-99) Hemoglobin 8.0g/dL (13.0-17.5) Hematocrit 23.5% (39.0-53.0) Activated Partial Thromboplast Time 41SEC (24-38) Heparin Anti-Xa Act, Unfractionated < 0.10IU/mL (0.30-0.70) Test 11/30/16 04:30 11/30/16 11:28 11/30/16 11:35 White Blood Count 9.6x10^3/uL (4.0-11.0) Red Blood Count 2.54x10^6/uL (4.30-5.70) Hemoglobin 7.7g/dL (13.0-17.5) Hematocrit 22.0% (39.0-53.0) Mean Corpuscular Volume 87fL (79-100) Mean Corpuscular Hemoglobin 30pg (25-35) Mean Corpuscular Hemoglobin Concent 35g/dL (31-37) Red Cell Distribution Width 15.4% (11.5-14.5) Platelet Count 70x10^3/uL (140-400) Heparin Anti-Xa Act, Unfractionated 0.17IU/mL (0.30-0.70) 0.33IU/mL (0.30-0.70) Sodium Level 145mmol/L (136-145) Potassium Level 3.9mmol/L (3.5-5.1) Chloride Level 109mmol/L (98-107) Carbon Dioxide Level 27mmol/L (21-32) Anion Gap 9 (6-14) Blood Urea Nitrogen 41mg/dL (8-26) Creatinine 1.8mg/dL (0.7-1.3) Estimated GFR (Cockcroft-Gault) 37.4 Glucose Level 240mg/dL (70-99) Calcium Level 7.8mg/dL (8.5-10.1) Phosphorus Level 2.8mg/dL (2.6-4.7) Magnesium Level 2.3mg/dL (1.8-2.4) Creatine Kinase 286U/L (39-308) Albumin 2.7g/dL (3.4-5.0) Glucose (Fingerstick) 251mg/dL (70-99) Physical Exam: Physical Exam: ecchymosis on rigth flank and in scrotum Assessment & Plan: Assessment : 1) Anemia Plan: Hgb stable. Have discussed findings with family and showed them subQ evidence of bleeding Problems: BETH ARNDT MD Nov 30, 2016 14:36
[2016-11-30] MEDS ORDERED: FUROSEMIDE 40 MG/4 ML VIAL IVP ONE (15:00)
--- NOTE | 2016-11-30 21:52 | PDOC ---
Provider Note Provider Note Provider Note RENAL F/U : KE S : No new issues O : Doing better/stable. VSS Afebrile. Neck : Supple. Lungs : Non labored. CVS : RRR ABD : Benign. Ext : Trace edema. Labs, I/Os reviewed. A/P : ARF : ATN. Cr stable. UOP slowly better. HTN ANEMIA : Hb low stable. Supportive care. No new issues. PHAN DEMPSEY MD Nov 30, 2016 21:51
[2016-11-30] MEDS ORDERED: DEXTROSE 70% IV SCH ×10 (22:00)
[2016-11-30] MEDS ORDERED: AMINO ACIDS IV SCH ×10 (22:00)
[2016-11-30] MEDS ORDERED: [UNRECOGNIZED DRUG - OTHER] IV SCH ×10 (22:00)
[2016-11-30] MEDS ORDERED: TOTAL PARENTERAL NUTRITION IV SCH ×10 (22:00)
[2016-12-01] VITALS (25 sets, daily range): BP systolic 153–197; BP diastolic 54–80
[2016-12-01] MEDS: PIPERACILLIN/TAZOBACTAM 3.375 GM in IV NORMAL SALINE 50ML 50 ML IV SCH ×5 (00:10→23:56)
[2016-12-01] MEDS: PANTOPRAZOLE SODIUM IV 80 MG in IV NORMAL SALINE 100ML 100 ML IV PRN ×2 (00:10→13:01)
[2016-12-01] MEDS: INSULIN ASPART 300 UNITS/3 ML INSULN.PEN SQ SCH ×4 (00:36→19:24)
[2016-12-01] MEDS: METOPROLOL TARTRATE 5 MG/5 ML VIAL. IVP SCH ×4 (04:15→22:18)
[2016-12-01] MEDS: HEPARIN 25,000UTS/500ML PREMIX 500 ML IV PRN ×2 (04:22→21:18)
[2016-12-01] MEDS: hydrALAZINE 20 MG/ML VIAL. IVP PRN ×2 (05:54→21:12)
[2016-12-01 06:25] LABS: HEMOGLOBIN 7.5 g/dL (13.0-17.5); RED BLOOD COUNT 2.46 x10^6/uL (4.30-5.70); RED CELL DISTRIBUTION WIDTH 15.2 % (11.5-14.5); WHITE BLOOD COUNT 10.6 x10^3/uL (4.0-11.0)
[2016-12-01 06:46] LABS: ALBUMIN 2.5 g/dL (3.4-5.0); CALCIUM 8.2 mg/dL (8.5-10.1); CREATININE 1.7 mg/dL (0.7-1.3); GFR 39.9; PHOSPHORUS 3.1 mg/dL (2.6-4.7); POTASSIUM 3.7 mmol/L (3.5-5.1)
[2016-12-01 07:15] LABS: % SAT IRON 22 % (15-34); IRON,SERUM 34 ug/dL (65-175)
[2016-12-01] MEDS: IPRATROPIUM BROMIDE 0.5 MG/2.5 ML NEBU. NEB SCH ×4 (08:38→19:58)
[2016-12-01] MEDS: BUDESONIDE 0.5 MG/2 ML NEBU. NEB SCH ×2 (08:38→19:58)
--- NOTE | 2016-12-01 08:38 | PDOC ---
Infectious Disease Note Subjective Subjective awake, feeling better, on NC ROS ROS GEN: Denies fevers, chills, sweats HEENT: Denies blurred vision, sore throat CV: Denies chest pain RESP: Denies shortness of air, cough GI: Denies n/v/d NEURO: Denies confusion, dizziness MSK: Denies weakness, joint pain/swelling Vital Sign Vital Signs Vital Signs Date Time Temp Pulse Resp B/P Pulse Ox O2 Delivery O2 Flow Rate FiO2 12/01/16 06:00 92 20 163/56 95 Nasal Cannula 3.0 12/01/16 04:00 99.4 99.4 Physical Exam PHYSICAL EXAM GENERAL: NAD, Alert HEENT: PERRL, OC/OP NECK: Supple, no JVD, no LN LUNGS: Clear HEART: S1S2, no gallop, no murmur ABD: Soft, NT, no organomegaly, no rebound EXT: No edema, no cyanosis CEMETERY WARDEN: Alert, oriented x 3, no focal neurologic deficit SKIN: No rash IV: ok Labs Lab Laboratory Tests Test 11/30/16 11:28 11/30/16 11:35 11/30/16 17:16 11/30/16 17:25 Glucose (Fingerstick) 251mg/dL (70-99) 211mg/dL (70-99) Heparin Anti-Xa Act, Unfractionated 0.33IU/mL (0.30-0.70) 0.23IU/mL (0.30-0.70) Test 12/01/16 00:10 12/01/16 00:15 12/01/16 06:02 12/01/16 06:10 Heparin Anti-Xa Act, Unfractionated 0.22IU/mL (0.30-0.70) 0.24IU/mL (0.30-0.70) Glucose (Fingerstick) 201mg/dL (70-99) 204mg/dL (70-99) White Blood Count 10.6x10^3/uL (4.0-11.0) Red Blood Count 2.46x10^6/uL (4.30-5.70) Hemoglobin 7.5g/dL (13.0-17.5) Hematocrit 22.0% (39.0-53.0) Mean Corpuscular Volume 89fL (79-100) Mean Corpuscular Hemoglobin 30pg (25-35) Mean Corpuscular Hemoglobin Concent 34g/dL (31-37) Red Cell Distribution Width 15.2% (11.5-14.5) Platelet Count 96x10^3/uL (140-400) Sodium Level 143mmol/L (136-145) Potassium Level 3.7mmol/L (3.5-5.1) Chloride Level 109mmol/L (98-107) Carbon Dioxide Level 26mmol/L (21-32) Anion Gap 8 (6-14) Blood Urea Nitrogen 41mg/dL (8-26) Creatinine 1.7mg/dL (0.7-1.3) Estimated GFR (Cockcroft-Gault) 39.9 Glucose Level 205mg/dL (70-99) Calcium Level 8.2mg/dL (8.5-10.1) Phosphorus Level 3.1mg/dL (2.6-4.7) Magnesium Level 2.0mg/dL (1.8-2.4) Iron Level 34ug/dL (65-175) Total Iron Binding Capacity 152ug/dL (250-450) Iron Saturation 22% (15-34) Creatine Kinase 153U/L (39-308) Albumin 2.5g/dL (3.4-5.0) Micro BC 1/4 G + cocci Objective Assessment S/P VT/VF Cardiac arrest, on hypothermia protocol DVT suspected PE Suspected ischemic bowel Lactic acidosis Leukocytosis likely reactive BC 1/4 G + cocci Plan Plan of Care Zyvox and Zosyn Await GPC ID. Repeat BC NGTD Monitor temp Supportive care d/w DANI DIAMOND MD Dec 01, 2016 08:38
--- NOTE | 2016-12-01 08:49 | PDOC ---
Subjective: Subjective: Heme f/u- PE/ DVT, cytopenias Pt with improved mentation this AM, able to speak coherently, recognize family. No worsening SOB, CP. Bruising improving. Objective: Vital Signs: Vital Signs Date Time Temp Pulse Resp B/P Pulse Ox O2 Delivery O2 Flow Rate FiO2 12/01/16 08:42 95 Nasal Cannula 5.0 12/01/16 08:00 98.6 90 20 176/64 98.6 Physical Exam: Heart: Regular rate Extremities: No edema General: Alert, Oriented X3, No acute distress Lungs: Normal air movement Psych/Mental Status: Mental status NL Skin: Other (Significant bruising on bilateral thighs (no new areas)) Labs/Imaging: CBC remaining stable Assessment/Plan A/P: 1. DVT/ PE- S/p IVC, on heparin gtt. Will need lifelong anticoag due to catastrophic nature of this event. Will hold off on final decisions about medication choice until cardiology plans are clear. Continue heparin gtt for now. 2. Acute blood loss anemia- Hgb stable. Venofer ordered. 3. Thrombocytopenia- Present on admit, likely code related. Monitor. 4. S/p cardiac arrest, CHF (EF 35%), dilated RV. Possible cath when stable. 5. Acute vs CKD- stable 6. Transaminitis- Improving. Plan: - Venofer ordered - Daily CBC - Heparin until cardiology plans clear, then will switch to po anticoag, likely coumadin given Cr and LFTs. EVELYN LABOY DO Dec 01, 2016 08:49
[2016-12-01] MEDS ORDERED: IRON SUCROSE COMPLEX 500 MG in IV NORMAL SALINE 250ML 250 ML IV ONE (09:00)
--- NOTE | 2016-12-01 09:34 | PDOC ---
PROGRESS NOTES Chief Complaint Chief Complaint Cardiac arrest ASSESSMENT AND PLAN; 1. Cardiac arrest: pre-admit. cardiology service following. MPI/cath on O/P basis 2. Respir failure: poss 2/2 massive PE. extubated 11/27 3. DVT: B LE. IVC filter placed 11/29. back on (low dose) heparin 4. Anemia: acute blood loss - suspect soft tissue bleed, now stabilized. iron studies c/w severe inflammation. low dose PO iron when recovered 5. ?ischemic bowel: currently asymptomatic; surgery following. 6. NGT in place: no sign of UGIB. clamping trial today; d/c if min residuals 7. CHF: systolic (EF 35-40%). new. cardiology following 8. CKD: creat stable. monitor 9. Transaminitis: suspect 2/2 cardiogenic shock. resolved. underlying fatty liver 10. DM2: poorly controlled at this time. add levemir. ISS 11. HLD: on statin 12. Leukocytosis: reactive. monitor 13. Bacteremia: 09/10 bottles GPC - suspect contaminant. ID following. remains on linezolid and zosyn 14. prophylaxis: PPI History of Present Illness History of Present Illness Vitals Vitals Vital Signs Date Time Temp Pulse Resp B/P Pulse Ox O2 Delivery O2 Flow Rate FiO2 12/01/16 09:00 82 20 176/64 95 Nasal Cannula 3.0 12/01/16 08:00 98.6 98.6 Physical Exam General: Alert, Oriented X3, No acute distress Heart: Regular rate Lungs: Clear Abdomen: Normal bowel sounds, Soft, Other (has ng tube) Extremities: No edema Skin: No rashes, Other (Significant bruising on bilateral thighs and R UE) Labs LABS Laboratory Tests Test 11/30/16 11:28 11/30/16 11:35 11/30/16 17:16 11/30/16 17:25 Glucose (Fingerstick) 251mg/dL (70-99) 211mg/dL (70-99) Heparin Anti-Xa Act, Unfractionated 0.33IU/mL (0.30-0.70) 0.23IU/mL (0.30-0.70) Test 12/01/16 00:10 12/01/16 00:15 12/01/16 06:02 12/01/16 06:10 Heparin Anti-Xa Act, Unfractionated 0.22IU/mL (0.30-0.70) 0.24IU/mL (0.30-0.70) Glucose (Fingerstick) 201mg/dL (70-99) 204mg/dL (70-99) White Blood Count 10.6x10^3/uL (4.0-11.0) Red Blood Count 2.46x10^6/uL (4.30-5.70) Hemoglobin 7.5g/dL (13.0-17.5) Hematocrit 22.0% (39.0-53.0) Mean Corpuscular Volume 89fL (79-100) Mean Corpuscular Hemoglobin 30pg (25-35) Mean Corpuscular Hemoglobin Concent 34g/dL (31-37) Red Cell Distribution Width 15.2% (11.5-14.5) Platelet Count 96x10^3/uL (140-400) Sodium Level 143mmol/L (136-145) Potassium Level 3.7mmol/L (3.5-5.1) Chloride Level 109mmol/L (98-107) Carbon Dioxide Level 26mmol/L (21-32) Anion Gap 8 (6-14) Blood Urea Nitrogen 41mg/dL (8-26) Creatinine 1.7mg/dL (0.7-1.3) Estimated GFR (Cockcroft-Gault) 39.9 Glucose Level 205mg/dL (70-99) Calcium Level 8.2mg/dL (8.5-10.1) Phosphorus Level 3.1mg/dL (2.6-4.7) Magnesium Level 2.0mg/dL (1.8-2.4) Iron Level 34ug/dL (65-175) Total Iron Binding Capacity 152ug/dL (250-450) Iron Saturation 22% (15-34) Creatine Kinase 153U/L (39-308) Albumin 2.5g/dL (3.4-5.0) Review of Systems Review of Systems doing well, at bedside. denies pain, no DUPREE or SOB DAHLIA PETERSON MD Dec 01, 2016 09:34
[2016-12-01] MEDS: ASPIRIN 300 MG SUPP.RECT PR SCH (09:57)
[2016-12-01 10:06] LABS: ALBUMIN 2.7 g/dL (3.4-5.0); DIRECT BILIRUBIN 0.3 mg/dL (0.0-0.2); TOTAL BILIRUBIN 1.4 mg/dL (0.2-1.0); TOTAL PROTEIN 5.2 g/dL (6.4-8.2)
--- NOTE | 2016-12-01 10:39 | PDOC ---
PULMONARY PROGRESS NOTES Subjective on 02 3 lpm, no soa Vitals Vital Signs Date Time Temp Pulse Resp B/P Pulse Ox O2 Delivery O2 Flow Rate FiO2 12/01/16 10:00 72 20 159/60 97 Nasal Cannula 3.0 12/01/16 08:00 98.6 98.6 Comments ros as mentioned as above. discussed w rn, other sys otherwise neg General: Alert, No acute distress HEENT: Other (nc at, perrl, nose clear, shallow oropharynx. neck, + jvd, no thyromegaly, no lap) Lungs: Clear Cardiovascular: S1, S2 Abdomen: Soft, Non-tender, Other (no mass) Neuro Exam: Alert Extremities: Other (2=edema) Skin: Warm Labs Laboratory Tests Test 11/29/16 12:12 11/29/16 12:25 11/29/16 17:49 11/29/16 20:39 Activated Partial Thromboplast Time 31SEC (24-38) 41SEC (24-38) Heparin Anti-Xa Act, Unfractionated < 0.10IU/mL (0.30-0.70) Glucose (Fingerstick) 235mg/dL (70-99) 198mg/dL (70-99) Hemoglobin 8.0g/dL (13.0-17.5) Hematocrit 23.5% (39.0-53.0) Test 11/29/16 20:57 11/30/16 00:13 11/30/16 04:30 11/30/16 11:28 Heparin Anti-Xa Act, Unfractionated < 0.10IU/mL (0.30-0.70) 0.17IU/mL (0.30-0.70) Glucose (Fingerstick) 246mg/dL (70-99) 251mg/dL (70-99) White Blood Count 9.6x10^3/uL (4.0-11.0) Red Blood Count 2.54x10^6/uL (4.30-5.70) Hemoglobin 7.7g/dL (13.0-17.5) Hematocrit 22.0% (39.0-53.0) Mean Corpuscular Volume 87fL (79-100) Mean Corpuscular Hemoglobin 30pg (25-35) Mean Corpuscular Hemoglobin Concent 35g/dL (31-37) Red Cell Distribution Width 15.4% (11.5-14.5) Platelet Count 70x10^3/uL (140-400) Sodium Level 145mmol/L (136-145) Potassium Level 3.9mmol/L (3.5-5.1) Chloride Level 109mmol/L (98-107) Carbon Dioxide Level 27mmol/L (21-32) Anion Gap 9 (6-14) Blood Urea Nitrogen 41mg/dL (8-26) Creatinine 1.8mg/dL (0.7-1.3) Estimated GFR (Cockcroft-Gault) 37.4 Glucose Level 240mg/dL (70-99) Calcium Level 7.8mg/dL (8.5-10.1) Phosphorus Level 2.8mg/dL (2.6-4.7) Magnesium Level 2.3mg/dL (1.8-2.4) Creatine Kinase 286U/L (39-308) Albumin 2.7g/dL (3.4-5.0) Test 11/30/16 11:35 11/30/16 17:16 11/30/16 17:25 12/01/16 00:10 Heparin Anti-Xa Act, Unfractionated 0.33IU/mL (0.30-0.70) 0.23IU/mL (0.30-0.70) 0.22IU/mL (0.30-0.70) Glucose (Fingerstick) 211mg/dL (70-99) Test 12/01/16 00:15 12/01/16 06:02 12/01/16 06:10 Glucose (Fingerstick) 201mg/dL (70-99) 204mg/dL (70-99) White Blood Count 10.6x10^3/uL (4.0-11.0) Red Blood Count 2.46x10^6/uL (4.30-5.70) Hemoglobin 7.5g/dL (13.0-17.5) Hematocrit 22.0% (39.0-53.0) Mean Corpuscular Volume 89fL (79-100) Mean Corpuscular Hemoglobin 30pg (25-35) Mean Corpuscular Hemoglobin Concent 34g/dL (31-37) Red Cell Distribution Width 15.2% (11.5-14.5) Platelet Count 96x10^3/uL (140-400) Heparin Anti-Xa Act, Unfractionated 0.24IU/mL (0.30-0.70) Sodium Level 143mmol/L (136-145) Potassium Level 3.7mmol/L (3.5-5.1) Chloride Level 109mmol/L (98-107) Carbon Dioxide Level 26mmol/L (21-32) Anion Gap 8 (6-14) Blood Urea Nitrogen 41mg/dL (8-26) Creatinine 1.7mg/dL (0.7-1.3) Estimated GFR (Cockcroft-Gault) 39.9 Glucose Level 205mg/dL (70-99) Calcium Level 8.2mg/dL (8.5-10.1) Phosphorus Level 3.1mg/dL (2.6-4.7) Magnesium Level 2.0mg/dL (1.8-2.4) Iron Level 34ug/dL (65-175) Total Iron Binding Capacity 152ug/dL (250-450) Iron Saturation 22% (15-34) Total Bilirubin 1.4mg/dL (0.2-1.0) Direct Bilirubin 0.3mg/dL (0.0-0.2) Aspartate Amino Transf (AST/SGOT) 35U/L (15-37) Alanine Aminotransferase (ALT/SGPT) 63U/L (16-63) Alkaline Phosphatase 123U/L (46-116) Creatine Kinase 153U/L (39-308) Total Protein 5.2g/dL (6.4-8.2) Albumin 2.7g/dL (3.4-5.0) Laboratory Tests Test 11/30/16 11:28 11/30/16 11:35 11/30/16 17:16 11/30/16 17:25 Glucose (Fingerstick) 251mg/dL (70-99) 211mg/dL (70-99) Heparin Anti-Xa Act, Unfractionated 0.33IU/mL (0.30-0.70) 0.23IU/mL (0.30-0.70) Test 12/01/16 00:10 12/01/16 00:15 12/01/16 06:02 12/01/16 06:10 Heparin Anti-Xa Act, Unfractionated 0.22IU/mL (0.30-0.70) 0.24IU/mL (0.30-0.70) Glucose (Fingerstick) 201mg/dL (70-99) 204mg/dL (70-99) White Blood Count 10.6x10^3/uL (4.0-11.0) Red Blood Count 2.46x10^6/uL (4.30-5.70) Hemoglobin 7.5g/dL (13.0-17.5) Hematocrit 22.0% (39.0-53.0) Mean Corpuscular Volume 89fL (79-100) Mean Corpuscular Hemoglobin 30pg (25-35) Mean Corpuscular Hemoglobin Concent 34g/dL (31-37) Red Cell Distribution Width 15.2% (11.5-14.5) Platelet Count 96x10^3/uL (140-400) Sodium Level 143mmol/L (136-145) Potassium Level 3.7mmol/L (3.5-5.1) Chloride Level 109mmol/L (98-107) Carbon Dioxide Level 26mmol/L (21-32) Anion Gap 8 (6-14) Blood Urea Nitrogen 41mg/dL (8-26) Creatinine 1.7mg/dL (0.7-1.3) Estimated GFR (Cockcroft-Gault) 39.9 Glucose Level 205mg/dL (70-99) Calcium Level 8.2mg/dL (8.5-10.1) Phosphorus Level 3.1mg/dL (2.6-4.7) Magnesium Level 2.0mg/dL (1.8-2.4) Iron Level 34ug/dL (65-175) Total Iron Binding Capacity 152ug/dL (250-450) Iron Saturation 22% (15-34) Total Bilirubin 1.4mg/dL (0.2-1.0) Direct Bilirubin 0.3mg/dL (0.0-0.2) Aspartate Amino Transf (AST/SGOT) 35U/L (15-37) Alanine Aminotransferase (ALT/SGPT) 63U/L (16-63) Alkaline Phosphatase 123U/L (46-116) Creatine Kinase 153U/L (39-308) Total Protein 5.2g/dL (6.4-8.2) Albumin 2.7g/dL (3.4-5.0) Comments cxr reviewed, increased vm, ll infilt atelectasis effusion R>L Impression . 1. Acute respiratory failure secondary to cag-[id number] cardiopulmonary arrest. Suspect secondary to arrhythmia. 2. Hyperlipidemia. 3. Diabetes. 4. Positive venous Doppler/ high prob V/Q, on Heparin/ popliteal nonocclusive thrombus. 5. Metabolic acidosis sec to code, improved. 6. PE 7. Ischemia CM 35-40% 8. Acute kidney injury 9. anemia, 10. wheezing, acute bronchospasm, resolved 11. abnl cxr, suspect chf Plan . 1. off bipap, use prn 2. s/p hypothermic protocol 3. Cardiology, follow rec 4. follow nephrology input, keep I<O, lasix monitor k, cr 5. Further cardiac workup per Dr. Lu. 6. Titrate FIO2. 7. cont antibiotics. 8. bronchodilator, ics 9. protonix 10. heparin gtt, s/p ivc filter 11/29, monitor closely for bleeding, no retro peritoneal bleed, start coumadin once ready to eat PO. 3 months total AC discussed w rn, ZULEYMA ERVIN MD Dec 01, 2016 10:39
[2016-12-01] MEDS: TPN PER PHARMACY MC PRN (11:22)
--- NOTE | 2016-12-01 11:45 | PDOC ---
Subjective: Subjective: No abd pain. Passing gas. No bleeding. Breathing okay. Objective: Objective: Per RN - NG placed over the weekend for distention, clamped this morning - tolerating. No bleeding. Had IVC filter placed. Vital Signs: Vital Signs Date Time Temp Pulse Resp B/P Pulse Ox O2 Delivery O2 Flow Rate FiO2 12/01/16 10:00 72 20 159/60 97 Nasal Cannula 3.0 12/01/16 08:00 98.6 98.6 Labs: Laboratory Tests Test 11/30/16 17:16 11/30/16 17:25 12/01/16 00:10 12/01/16 00:15 Glucose (Fingerstick) 211mg/dL 201mg/dL Heparin Anti-Xa Act, Unfractionated 0.23IU/mL 0.22IU/mL Test 12/01/16 06:02 12/01/16 06:10 Glucose (Fingerstick) 204mg/dL White Blood Count 10.6x10^3/uL Red Blood Count 2.46x10^6/uL Hemoglobin 7.5g/dL Hematocrit 22.0% Mean Corpuscular Volume 89fL Mean Corpuscular Hemoglobin 30pg Mean Corpuscular Hemoglobin Concent 34g/dL Red Cell Distribution Width 15.2% Platelet Count 96x10^3/uL Heparin Anti-Xa Act, Unfractionated 0.24IU/mL Sodium Level 143mmol/L Potassium Level 3.7mmol/L Chloride Level 109mmol/L Carbon Dioxide Level 26mmol/L Anion Gap 8 Blood Urea Nitrogen 41mg/dL Creatinine 1.7mg/dL Estimated GFR (Cockcroft-Gault) 39.9 Glucose Level 205mg/dL Calcium Level 8.2mg/dL Phosphorus Level 3.1mg/dL Magnesium Level 2.0mg/dL Iron Level 34ug/dL Total Iron Binding Capacity 152ug/dL Iron Saturation 22% Total Bilirubin 1.4mg/dL Direct Bilirubin 0.3mg/dL Aspartate Amino Transf (AST/SGOT) 35U/L Alanine Aminotransferase (ALT/SGPT) 63U/L Alkaline Phosphatase 123U/L Creatine Kinase 153U/L Total Protein 5.2g/dL Albumin 2.7g/dL Imaging: CXR 11/30/16 IMPRESSION: Slight improvement in aeration of the right upper lobe. A new finding in the chest is not seen. KUB 11/30/16 IMPRESSION: NG tube tube with its tip in the antrum or first portion of the duodenum. VQ scan 11/28/16 IMPRESSION High probability for pulmonary embolus. CT chest, abd, pelvis 11/28/16 IMPRESSION: Moderate right pleural effusion and small left. Volume loss at the right lung base and in the right upper lobe is compatible with atelectasis or pneumonia. Soft tissue swelling suggesting a systemic process such as anasarca. No evidence of retroperitoneal hemorrhage. Acute finding in the abdomen or pelvis is not seen. Cholelithiasis. Renal cysts. PE: GEN: NAD, up to chair LUNGS: clear anteriorly w/ nasal cannula HEART: RRR ABD: BS+, soft/non-tender NEURO/PSYCH: A & O 3 A/P: Anemia -Hgb stable (7.5 today) s/p transfusions Cardiac arrest, resp failure, HAMILTON -now on nasal cannula -on TPN, IV PPI -- Hgb improved/stable w/o obvious GI bleeding. Okay to remove NG, otherwise continue same per GI. YAMEL CUEVAS Dec 01, 2016 11:45
--- NOTE | 2016-12-01 12:11 | PDOC ---
Renal-Progress Notes Subjective Notes Notes SITTING UP FEELING BETTER History of Present Illness Hx of present illness BETTER Vitals Vitals Vital Signs Date Time Temp Pulse Resp B/P Pulse Ox O2 Delivery O2 Flow Rate FiO2 12/01/16 10:00 72 20 159/60 97 Nasal Cannula 3.0 12/01/16 08:00 98.6 98.6 Weight Weight [ ] I.O. Intake and Output Intake and Output 12/01/16 07:00 Intake Total 3824.7 ml Output Total 4242 ml Balance -417.3 ml Intake Oral 0 ml IV Total 3824.7 ml Output Urine Total 4140 ml Stool Total 2 ml Gastric Drainage Total 100 ml # Bowel Movements 1 Labs Labs Laboratory Tests Test 11/30/16 17:16 11/30/16 17:25 12/01/16 00:10 12/01/16 00:15 Glucose (Fingerstick) 211mg/dL (70-99) 201mg/dL (70-99) Heparin Anti-Xa Act, Unfractionated 0.23IU/mL (0.30-0.70) 0.22IU/mL (0.30-0.70) Test 12/01/16 06:02 12/01/16 06:10 Glucose (Fingerstick) 204mg/dL (70-99) White Blood Count 10.6x10^3/uL (4.0-11.0) Red Blood Count 2.46x10^6/uL (4.30-5.70) Hemoglobin 7.5g/dL (13.0-17.5) Hematocrit 22.0% (39.0-53.0) Mean Corpuscular Volume 89fL (79-100) Mean Corpuscular Hemoglobin 30pg (25-35) Mean Corpuscular Hemoglobin Concent 34g/dL (31-37) Red Cell Distribution Width 15.2% (11.5-14.5) Platelet Count 96x10^3/uL (140-400) Heparin Anti-Xa Act, Unfractionated 0.24IU/mL (0.30-0.70) Sodium Level 143mmol/L (136-145) Potassium Level 3.7mmol/L (3.5-5.1) Chloride Level 109mmol/L (98-107) Carbon Dioxide Level 26mmol/L (21-32) Anion Gap 8 (6-14) Blood Urea Nitrogen 41mg/dL (8-26) Creatinine 1.7mg/dL (0.7-1.3) Estimated GFR (Cockcroft-Gault) 39.9 Glucose Level 205mg/dL (70-99) Calcium Level 8.2mg/dL (8.5-10.1) Phosphorus Level 3.1mg/dL (2.6-4.7) Magnesium Level 2.0mg/dL (1.8-2.4) Iron Level 34ug/dL (65-175) Total Iron Binding Capacity 152ug/dL (250-450) Iron Saturation 22% (15-34) Total Bilirubin 1.4mg/dL (0.2-1.0) Direct Bilirubin 0.3mg/dL (0.0-0.2) Aspartate Amino Transf (AST/SGOT) 35U/L (15-37) Alanine Aminotransferase (ALT/SGPT) 63U/L (16-63) Alkaline Phosphatase 123U/L (46-116) Creatine Kinase 153U/L (39-308) Total Protein 5.2g/dL (6.4-8.2) Albumin 2.7g/dL (3.4-5.0) Micro Micro Microbiology 11/28/16 Blood Culture - Preliminary, Resulted NO GROWTH AFTER 3 DAYS 11/24/16 Stool Culture - Final, Complete 11/24/16 Stool Culture Result 1 (ROSIE) - Final, Complete 11/24/16 Campylobacter Antigen Assay - Final, Complete 11/24/16 Campylobactor Result 1 - Final, Complete 11/24/16 Shiga Toxin Test - Final, Complete 11/25/16 Urine Culture - Final, Complete 11/25/16 Urine Culture Result 1 (ROSIE) - Final, Complete Review of Systems Constitutional: yes: alert, oriented, weakness Ears/Nose/Throat: Yes: no symptom reported Eyes: Yes: no symptom reported Pulmonary: Yes dyspnea Cardiovascular: Yes no symptom reported Gastrointestional: Yes: no symptom reported Musculoskeletal: Yes: muscle stiffness Skin: Yes no symptom reported Psychiatric/Neurological: Yes: no symptom reported Physical Exam General Appearance: no apparent distress Skin: warm Respiratory: decreased breath sounds Heart: S1S2 Abdomen: soft, bowel sounds present Neurology: alert, oriented (to person and place), follow commands, other ( fatigued) Assessment Assessment IMP [facility] WITH CR 2.6 TO 1.7 RESP FAILURE PE ANEMIA PLAN CONT TPN WILL D/C TEMP HD [facility]TER IN A DAY OR TWO LABS IN AM WILL FOLLOW LEFTY MONTERO MD Dec 01, 2016 12:11
--- NOTE | 2016-12-01 12:29 | PDOC ---
CARMELO POSADAS HANDMADE TILE ARTIST 12/01/16 1229: CARDIO Progress Notes Date and Time Date of Service 12/01/16 Time of Evaluation 1230 Subjective Subjective: No Chest Pain, No Palpitations, Other (on NC, minimal SOA. feeling better overall ) Vitals Vitals Vital Signs Date Time Temp Pulse Resp B/P Pulse Ox O2 Delivery O2 Flow Rate FiO2 12/01/16 10:00 72 20 159/60 97 Nasal Cannula 3.0 12/01/16 08:00 98.6 98.6 Weight Weight [ ] Input and Output Intake and Output Intake and Output 12/01/16 07:00 Intake Total 3824.7 ml Output Total 4242 ml Balance -417.3 ml Intake Oral 0 ml IV Total 3824.7 ml Output Urine Total 4140 ml Stool Total 2 ml Gastric Drainage Total 100 ml # Bowel Movements 1 Laboratory Labs Laboratory Tests Test 11/30/16 17:16 11/30/16 17:25 12/01/16 00:10 12/01/16 00:15 Glucose (Fingerstick) 211mg/dL (70-99) 201mg/dL (70-99) Heparin Anti-Xa Act, Unfractionated 0.23IU/mL (0.30-0.70) 0.22IU/mL (0.30-0.70) Test 12/01/16 06:02 12/01/16 06:10 Glucose (Fingerstick) 204mg/dL (70-99) White Blood Count 10.6x10^3/uL (4.0-11.0) Red Blood Count 2.46x10^6/uL (4.30-5.70) Hemoglobin 7.5g/dL (13.0-17.5) Hematocrit 22.0% (39.0-53.0) Mean Corpuscular Volume 89fL (79-100) Mean Corpuscular Hemoglobin 30pg (25-35) Mean Corpuscular Hemoglobin Concent 34g/dL (31-37) Red Cell Distribution Width 15.2% (11.5-14.5) Platelet Count 96x10^3/uL (140-400) Heparin Anti-Xa Act, Unfractionated 0.24IU/mL (0.30-0.70) Sodium Level 143mmol/L (136-145) Potassium Level 3.7mmol/L (3.5-5.1) Chloride Level 109mmol/L (98-107) Carbon Dioxide Level 26mmol/L (21-32) Anion Gap 8 (6-14) Blood Urea Nitrogen 41mg/dL (8-26) Creatinine 1.7mg/dL (0.7-1.3) Estimated GFR (Cockcroft-Gault) 39.9 Glucose Level 205mg/dL (70-99) Calcium Level 8.2mg/dL (8.5-10.1) Phosphorus Level 3.1mg/dL (2.6-4.7) Magnesium Level 2.0mg/dL (1.8-2.4) Iron Level 34ug/dL (65-175) Total Iron Binding Capacity 152ug/dL (250-450) Iron Saturation 22% (15-34) Total Bilirubin 1.4mg/dL (0.2-1.0) Direct Bilirubin 0.3mg/dL (0.0-0.2) Aspartate Amino Transf (AST/SGOT) 35U/L (15-37) Alanine Aminotransferase (ALT/SGPT) 63U/L (16-63) Alkaline Phosphatase 123U/L (46-116) Creatine Kinase 153U/L (39-308) Total Protein 5.2g/dL (6.4-8.2) Albumin 2.7g/dL (3.4-5.0) Microbiology Micro Microbiology 11/28/16 Blood Culture - Preliminary, Resulted NO GROWTH AFTER 3 DAYS 11/24/16 Stool Culture - Final, Complete 11/24/16 Stool Culture Result 1 (ROSIE) - Final, Complete 11/24/16 Campylobacter Antigen Assay - Final, Complete 11/24/16 Campylobactor Result 1 - Final, Complete 11/24/16 Shiga Toxin Test - Final, Complete 11/25/16 Urine Culture - Final, Complete 11/25/16 Urine Culture Result 1 (ROSIE) - Final, Complete Review of Systems Constitutional: yes: alert, oriented, weakness Ears/Nose/Throat: Yes: no symptom reported Eyes: Yes: no symptom reported Pulmonary: Yes dyspnea Cardiovascular: Yes no symptom reported Gastrointestional: Yes: no symptom reported Musculoskeletal: Yes: muscle stiffness Skin: Yes no symptom reported Psychiatric/Neurological: Yes: no symptom reported Physical Exam HEENT: Neck Supple W Full Motion Chest: Symmetric LUNGS: Clear to Auscultation, Other Heart: S1S2, RRR, no murmurs, other (tele SR) Abdomen: Soft N/T, Other (diffuse ecchymosis of bilateral groin area) Extremities: 2+ Dorsalis Pedis, Other (1+ bilateral LE edema, mild left hand edema, diffuse upper ext ecchymosis ) Neurology: alert, oriented, follow commands, other Assessment Assessment 1. Cardiac arrest 2. Acute Respiratory failure 2/2 PE 3. PE 4. Bilateral DVT s/p IVC 5. Presumed ischemic cardiomyopathy; EF 35-40% 6. HAMILTON 9. Hypertension 10. Anemia Recommendations Swallow study today; convert meds to oral if no aspiration noted Consider MPI to r/o reversible ischemia versus cardiac cath at later date- will d/w primary cardiology Monitor fluid status closely Continue heparin gtt. Supportive care FARIDA ALDRICH MD 12/01/16 1702: CARDIO Progress Notes Plan Plan Pt. seen and examined. Agree with above CHIEF DISPATCHER note. No acute events overnight. More alert this a.m. Denies chest pain Cr better normal cardiac exam Supportive care. Will follow along. Hgb stable. CARMELO POSADAS APRN Dec 01, 2016 12:29 FARIDA ALDRICH MD Dec 01, 2016 17:02
--- NOTE | 2016-12-01 13:23 | PDOC ---
SURGICAL PROGRESS NOTE Subjective Mckinley for Jonny sitting up in bed NG has been d/c'd by GI no new complaints failed swallow study per RN Vital Signs Vital Signs Date Time Temp Pulse Resp B/P Pulse Ox O2 Delivery O2 Flow Rate FiO2 12/01/16 12:21 95 Nasal Cannula 5.0 12/01/16 10:00 72 20 159/60 12/01/16 08:00 98.6 98.6 I&O Intake and Output 12/01/16 07:00 Intake Total 3824.7 ml Output Total 4242 ml Balance -417.3 ml Intake Oral 0 ml IV Total 3824.7 ml Output Urine Total 4140 ml Stool Total 2 ml Gastric Drainage Total 100 ml # Bowel Movements 1 PATIENT HAS A VILLAVICENCIO: Yes General: Alert, No acute distress Abdomen: Soft Labs Laboratory Tests Test 11/29/16 17:49 11/29/16 20:39 11/29/16 20:57 11/30/16 00:13 Glucose (Fingerstick) 198mg/dL (70-99) 246mg/dL (70-99) Hemoglobin 8.0g/dL (13.0-17.5) Hematocrit 23.5% (39.0-53.0) Activated Partial Thromboplast Time 41SEC (24-38) Heparin Anti-Xa Act, Unfractionated < 0.10IU/mL (0.30-0.70) Test 11/30/16 04:30 11/30/16 11:28 11/30/16 11:35 11/30/16 17:16 White Blood Count 9.6x10^3/uL (4.0-11.0) Red Blood Count 2.54x10^6/uL (4.30-5.70) Hemoglobin 7.7g/dL (13.0-17.5) Hematocrit 22.0% (39.0-53.0) Mean Corpuscular Volume 87fL (79-100) Mean Corpuscular Hemoglobin 30pg (25-35) Mean Corpuscular Hemoglobin Concent 35g/dL (31-37) Red Cell Distribution Width 15.4% (11.5-14.5) Platelet Count 70x10^3/uL (140-400) Heparin Anti-Xa Act, Unfractionated 0.17IU/mL (0.30-0.70) 0.33IU/mL (0.30-0.70) Sodium Level 145mmol/L (136-145) Potassium Level 3.9mmol/L (3.5-5.1) Chloride Level 109mmol/L (98-107) Carbon Dioxide Level 27mmol/L (21-32) Anion Gap 9 (6-14) Blood Urea Nitrogen 41mg/dL (8-26) Creatinine 1.8mg/dL (0.7-1.3) Estimated GFR (Cockcroft-Gault) 37.4 Glucose Level 240mg/dL (70-99) Calcium Level 7.8mg/dL (8.5-10.1) Phosphorus Level 2.8mg/dL (2.6-4.7) Magnesium Level 2.3mg/dL (1.8-2.4) Creatine Kinase 286U/L (39-308) Albumin 2.7g/dL (3.4-5.0) Glucose (Fingerstick) 251mg/dL (70-99) 211mg/dL (70-99) Test 11/30/16 17:25 12/01/16 00:10 12/01/16 00:15 12/01/16 06:02 Heparin Anti-Xa Act, Unfractionated 0.23IU/mL (0.30-0.70) 0.22IU/mL (0.30-0.70) Glucose (Fingerstick) 201mg/dL (70-99) 204mg/dL (70-99) Test 12/01/16 06:10 12/01/16 12:51 White Blood Count 10.6x10^3/uL (4.0-11.0) Red Blood Count 2.46x10^6/uL (4.30-5.70) Hemoglobin 7.5g/dL (13.0-17.5) Hematocrit 22.0% (39.0-53.0) Mean Corpuscular Volume 89fL (79-100) Mean Corpuscular Hemoglobin 30pg (25-35) Mean Corpuscular Hemoglobin Concent 34g/dL (31-37) Red Cell Distribution Width 15.2% (11.5-14.5) Platelet Count 96x10^3/uL (140-400) Heparin Anti-Xa Act, Unfractionated 0.24IU/mL (0.30-0.70) Sodium Level 143mmol/L (136-145) Potassium Level 3.7mmol/L (3.5-5.1) Chloride Level 109mmol/L (98-107) Carbon Dioxide Level 26mmol/L (21-32) Anion Gap 8 (6-14) Blood Urea Nitrogen 41mg/dL (8-26) Creatinine 1.7mg/dL (0.7-1.3) Estimated GFR (Cockcroft-Gault) 39.9 Glucose Level 205mg/dL (70-99) Calcium Level 8.2mg/dL (8.5-10.1) Phosphorus Level 3.1mg/dL (2.6-4.7) Magnesium Level 2.0mg/dL (1.8-2.4) Iron Level 34ug/dL (65-175) Total Iron Binding Capacity 152ug/dL (250-450) Iron Saturation 22% (15-34) Total Bilirubin 1.4mg/dL (0.2-1.0) Direct Bilirubin 0.3mg/dL (0.0-0.2) Aspartate Amino Transf (AST/SGOT) 35U/L (15-37) Alanine Aminotransferase (ALT/SGPT) 63U/L (16-63) Alkaline Phosphatase 123U/L (46-116) Creatine Kinase 153U/L (39-308) Total Protein 5.2g/dL (6.4-8.2) Albumin 2.7g/dL (3.4-5.0) Glucose (Fingerstick) 237mg/dL (70-99) Laboratory Tests Test 11/30/16 17:16 11/30/16 17:25 12/01/16 00:10 12/01/16 00:15 Glucose (Fingerstick) 211mg/dL (70-99) 201mg/dL (70-99) Heparin Anti-Xa Act, Unfractionated 0.23IU/mL (0.30-0.70) 0.22IU/mL (0.30-0.70) Test 12/01/16 06:02 12/01/16 06:10 12/01/16 12:51 Glucose (Fingerstick) 204mg/dL (70-99) 237mg/dL (70-99) White Blood Count 10.6x10^3/uL (4.0-11.0) Red Blood Count 2.46x10^6/uL (4.30-5.70) Hemoglobin 7.5g/dL (13.0-17.5) Hematocrit 22.0% (39.0-53.0) Mean Corpuscular Volume 89fL (79-100) Mean Corpuscular Hemoglobin 30pg (25-35) Mean Corpuscular Hemoglobin Concent 34g/dL (31-37) Red Cell Distribution Width 15.2% (11.5-14.5) Platelet Count 96x10^3/uL (140-400) Heparin Anti-Xa Act, Unfractionated 0.24IU/mL (0.30-0.70) Sodium Level 143mmol/L (136-145) Potassium Level 3.7mmol/L (3.5-5.1) Chloride Level 109mmol/L (98-107) Carbon Dioxide Level 26mmol/L (21-32) Anion Gap 8 (6-14) Blood Urea Nitrogen 41mg/dL (8-26) Creatinine 1.7mg/dL (0.7-1.3) Estimated GFR (Cockcroft-Gault) 39.9 Glucose Level 205mg/dL (70-99) Calcium Level 8.2mg/dL (8.5-10.1) Phosphorus Level 3.1mg/dL (2.6-4.7) Magnesium Level 2.0mg/dL (1.8-2.4) Iron Level 34ug/dL (65-175) Total Iron Binding Capacity 152ug/dL (250-450) Iron Saturation 22% (15-34) Total Bilirubin 1.4mg/dL (0.2-1.0) Direct Bilirubin 0.3mg/dL (0.0-0.2) Aspartate Amino Transf (AST/SGOT) 35U/L (15-37) Alanine Aminotransferase (ALT/SGPT) 63U/L (16-63) Alkaline Phosphatase 123U/L (46-116) Creatine Kinase 153U/L (39-308) Total Protein 5.2g/dL (6.4-8.2) Albumin 2.7g/dL (3.4-5.0) Problem List Problems Medical Problems: (1) Cardiac arrest Status: Acute Assessment/Plan ileus, improved hold po til swallow improves Problems: KAMRON CONTRERAS MD Dec 01, 2016 13:23
[2016-12-01 14:45] LABS: HEMATOCRIT 16.8 % (39.0-53.0)
[2016-12-01] MEDS: ANTI-COAG MONITOR BY PHARMACY. MC PRN (15:51)
[2016-12-01] MEDS ORDERED: AMINO ACIDS IV SCH ×10 (22:00)
[2016-12-01] MEDS ORDERED: DEXTROSE 70% IV SCH ×10 (22:00)
[2016-12-01] MEDS ORDERED: TOTAL PARENTERAL NUTRITION IV SCH ×10 (22:00)
[2016-12-01] MEDS ORDERED: [UNRECOGNIZED DRUG - OTHER] IV SCH ×10 (22:00)
[2016-12-02] VITALS (25 sets, daily range): BP systolic 109–196; BP diastolic 47–73
[2016-12-02] MEDS: INSULIN DETEMIR 300 UNITS/3 ML INSULN.PEN. SQ SCH ×2 (00:09→21:08)
[2016-12-02] MEDS: INSULIN ASPART 300 UNITS/3 ML INSULN.PEN SQ SCH ×4 (00:12→16:22)
[2016-12-02] MEDS: METOPROLOL TARTRATE 5 MG/5 ML VIAL. IVP SCH ×4 (04:59→21:47)
[2016-12-02 06:03] LABS: BASO % 0 % (0-3); EOS % 7 % (0-3); HEMATOCRIT 21.2 % (39.0-53.0); HEMOGLOBIN 7.1 g/dL (13.0-17.5); LYMPH # 1.2 x10^3/uL (1.0-4.8); LYMPH % 8 % (24-48); MEAN CORPUSCULAR HEMOGLOBIN 30 pg (25-35); MEAN CORPUSCULAR HGB CONC 34 g/dL (31-37); MEAN CORPUSCULAR VOLUME 88 fL (79-100); MONO % 11 % (0-9); NEUT % 74 % (31-73); PLATELET COUNT 150 x10^3/uL (140-400); RED CELL DISTRIBUTION WIDTH 15.5 % (11.5-14.5); WHITE BLOOD COUNT 14.4 x10^3/uL (4.0-11.0)
[2016-12-02] MEDS: PIPERACILLIN/TAZOBACTAM 3.375 GM in IV NORMAL SALINE 50ML 50 ML IV SCH ×3 (06:04→17:11)
[2016-12-02 06:22] LABS: ALBUMIN 2.7 g/dL (3.4-5.0); CALCIUM 8.6 mg/dL (8.5-10.1); CREATININE 1.7 mg/dL (0.7-1.3); GFR 39.9; PHOSPHORUS 3.5 mg/dL (2.6-4.7); POTASSIUM 3.9 mmol/L (3.5-5.1)
[2016-12-02] MEDS ORDERED: ACETAMINOPHEN 325 MG TABLET. PO PRN (06:30)
[2016-12-02] MEDS: IPRATROPIUM BROMIDE 0.5 MG/2.5 ML NEBU. NEB SCH ×4 (07:53→19:37)
[2016-12-02] MEDS: BUDESONIDE 0.5 MG/2 ML NEBU. NEB SCH ×2 (07:54→19:37)
--- NOTE | 2016-12-02 08:22 | PDOC ---
Infectious Disease Note Subjective Subjective awake, feeling better, on NC ROS ROS GEN: Denies fevers, chills, sweats HEENT: Denies blurred vision, sore throat CV: Denies chest pain RESP: Denies shortness of air, cough GI: Denies n/v/d NEURO: Denies confusion, dizziness MSK: Denies weakness, joint pain/swelling Vital Sign Vital Signs Vital Signs Date Time Temp Pulse Resp B/P Pulse Ox O2 Delivery O2 Flow Rate FiO2 12/02/16 07:54 99 Nasal Cannula 4.0 12/02/16 07:00 97.5 87 24 140/51 97.5 Physical Exam PHYSICAL EXAM GENERAL: NAD, Alert HEENT: PERRL, OC/OP NECK: Supple, no JVD, no LN LUNGS: Clear HEART: S1S2, no gallop, no murmur ABD: Soft, NT, no organomegaly, no rebound EXT: No edema, no cyanosis DRAFTER CASTINGS: Alert, oriented x 3, no focal neurologic deficit SKIN: No rash IV: ok Labs Lab Laboratory Tests Test 12/01/16 12:51 12/01/16 13:35 12/01/16 17:41 12/01/16 20:00 Glucose (Fingerstick) 237mg/dL (70-99) 202mg/dL (70-99) Heparin Anti-Xa Act, Unfractionated 0.35IU/mL (0.30-0.70) 0.35IU/mL (0.30-0.70) Test 12/01/16 23:57 12/02/16 05:50 12/02/16 05:52 Glucose (Fingerstick) 227mg/dL (70-99) 191mg/dL (70-99) White Blood Count 14.4x10^3/uL (4.0-11.0) Red Blood Count 2.40x10^6/uL (4.30-5.70) Hemoglobin 7.1g/dL (13.0-17.5) Hematocrit 21.2% (39.0-53.0) Mean Corpuscular Volume 88fL (79-100) Mean Corpuscular Hemoglobin 30pg (25-35) Mean Corpuscular Hemoglobin Concent 34g/dL (31-37) Red Cell Distribution Width 15.5% (11.5-14.5) Platelet Count 150x10^3/uL (140-400) Neutrophils (%) (Auto) 74% (31-73) Lymphocytes (%) (Auto) 8% (24-48) Monocytes (%) (Auto) 11% (0-9) Eosinophils (%) (Auto) 7% (0-3) Basophils (%) (Auto) 0% (0-3) Neutrophils # (Auto) 10.6x10^3uL (1.8-7.7) Lymphocytes # (Auto) 1.2x10^3/uL (1.0-4.8) Monocytes # (Auto) 1.6x10^3/uL (0.0-1.1) Eosinophils # (Auto) 1.0x10^3/uL (0.0-0.7) Basophils # (Auto) 0.0x10^3/uL (0.0-0.2) Heparin Anti-Xa Act, Unfractionated 0.38IU/mL (0.30-0.70) Sodium Level 145mmol/L (136-145) Potassium Level 3.9mmol/L (3.5-5.1) Chloride Level 110mmol/L (98-107) Carbon Dioxide Level 24mmol/L (21-32) Anion Gap 11 (6-14) Blood Urea Nitrogen 38mg/dL (8-26) Creatinine 1.7mg/dL (0.7-1.3) Estimated GFR (Cockcroft-Gault) 39.9 Glucose Level 202mg/dL (70-99) Calcium Level 8.6mg/dL (8.5-10.1) Phosphorus Level 3.5mg/dL (2.6-4.7) Magnesium Level 1.9mg/dL (1.8-2.4) Creatine Kinase 113U/L (39-308) Albumin 2.7g/dL (3.4-5.0) Triglycerides Level 188mg/dL (0-150) Micro BC 1/ peptostreptococcus Objective Assessment S/P VT/VF Cardiac arrest, on hypothermia protocol DVT suspected PE Suspected ischemic bowel Lactic acidosis Leukocytosis likely reactive BC 1/4 G + cocci Plan Plan of Care Zosyn d/c zyvox Await GPC ID. Repeat BC NGTD Monitor temp Supportive care d/w DANI Alejandra MD Dec 02, 2016 08:22
--- NOTE | 2016-12-02 08:51 | PDOC ---
PROGRESS NOTES Chief Complaint Chief Complaint Cardiac arrest ASSESSMENT AND PLAN; 1. Cardiac arrest: pre-admit. cardiology service following. MPI/cath on O/P basis 2. Respir failure: poss 2/2 massive PE. extubated 11/27 3. DVT: B LE. IVC filter placed 11/29. back on (low dose) heparin 4. Anemia: acute blood loss - suspect soft tissue bleed +/- ischemic gut. very slowly drifting. transfuse PRBC x1. iron studies c/w severe inflammation. low dose PO iron when recovered 5. ?ischemic bowel: currently asymptomatic; surgery following. NGT removed. start PO as per surgery/GI 7. CHF: systolic (EF 35-40%). new. cardiology following 8. CKD: creat stable. monitor 9. Transaminitis: suspect 2/2 cardiogenic shock. resolved. underlying fatty liver 10. DM2: poorly controlled at this time. add levemir. ISS 11. HLD: on statin 12. Leukocytosis: reactive. monitor 13. Bacteremia: 09/10 bottles GPC - suspect contaminant. ID following. remains on linezolid and zosyn 14. prophylaxis: PPI History of Present Illness History of Present Illness Vitals Vitals Vital Signs Date Time Temp Pulse Resp B/P Pulse Ox O2 Delivery O2 Flow Rate FiO2 12/02/16 08:21 4.0 12/02/16 08:00 Nasal Cannula 12/02/16 07:54 99 12/02/16 07:00 97.5 87 24 140/51 97.5 Physical Exam General: Alert, No acute distress Heart: Regular rate Lungs: Clear Abdomen: Soft Extremities: No edema Skin: No rashes, Other (Significant bruising on bilateral thighs and R UE) Labs LABS Laboratory Tests Test 12/01/16 12:51 12/01/16 13:35 12/01/16 17:41 12/01/16 20:00 Glucose (Fingerstick) 237mg/dL (70-99) 202mg/dL (70-99) Heparin Anti-Xa Act, Unfractionated 0.35IU/mL (0.30-0.70) 0.35IU/mL (0.30-0.70) Test 12/01/16 23:57 12/02/16 05:50 12/02/16 05:52 Glucose (Fingerstick) 227mg/dL (70-99) 191mg/dL (70-99) White Blood Count 14.4x10^3/uL (4.0-11.0) Red Blood Count 2.40x10^6/uL (4.30-5.70) Hemoglobin 7.1g/dL (13.0-17.5) Hematocrit 21.2% (39.0-53.0) Mean Corpuscular Volume 88fL (79-100) Mean Corpuscular Hemoglobin 30pg (25-35) Mean Corpuscular Hemoglobin Concent 34g/dL (31-37) Red Cell Distribution Width 15.5% (11.5-14.5) Platelet Count 150x10^3/uL (140-400) Neutrophils (%) (Auto) 74% (31-73) Lymphocytes (%) (Auto) 8% (24-48) Monocytes (%) (Auto) 11% (0-9) Eosinophils (%) (Auto) 7% (0-3) Basophils (%) (Auto) 0% (0-3) Neutrophils # (Auto) 10.6x10^3uL (1.8-7.7) Lymphocytes # (Auto) 1.2x10^3/uL (1.0-4.8) Monocytes # (Auto) 1.6x10^3/uL (0.0-1.1) Eosinophils # (Auto) 1.0x10^3/uL (0.0-0.7) Basophils # (Auto) 0.0x10^3/uL (0.0-0.2) Heparin Anti-Xa Act, Unfractionated 0.38IU/mL (0.30-0.70) Sodium Level 145mmol/L (136-145) Potassium Level 3.9mmol/L (3.5-5.1) Chloride Level 110mmol/L (98-107) Carbon Dioxide Level 24mmol/L (21-32) Anion Gap 11 (6-14) Blood Urea Nitrogen 38mg/dL (8-26) Creatinine 1.7mg/dL (0.7-1.3) Estimated GFR (Cockcroft-Gault) 39.9 Glucose Level 202mg/dL (70-99) Calcium Level 8.6mg/dL (8.5-10.1) Phosphorus Level 3.5mg/dL (2.6-4.7) Magnesium Level 1.9mg/dL (1.8-2.4) Creatine Kinase 113U/L (39-308) Albumin 2.7g/dL (3.4-5.0) Triglycerides Level 188mg/dL (0-150) Review of Systems Review of Systems feels fine, no abd pain or bleed. no SOB or CP DAHLIA PETERSON MD Dec 02, 2016 08:51
--- NOTE | 2016-12-02 09:02 | PDOC ---
PULMONARY PROGRESS NOTES Subjective pt walked in hallway today Vitals Vital Signs Date Time Temp Pulse Resp B/P Pulse Ox O2 Delivery O2 Flow Rate FiO2 12/02/16 08:21 4.0 12/02/16 08:00 Nasal Cannula 12/02/16 07:54 99 12/02/16 07:00 97.5 87 24 140/51 97.5 Comments ros as mentioned as above. discussed w rn, other sys otherwise neg General: Alert, No acute distress HEENT: Other (nc at, perrl, nose clear, shallow oropharynx. neck, + jvd, no thyromegaly, no lap) Lungs: Clear Cardiovascular: S1, S2 Abdomen: Soft, Non-tender, Other (no mass) Neuro Exam: Alert Extremities: Other (2=edema) Skin: Warm Labs Laboratory Tests Test 11/30/16 11:28 11/30/16 11:35 11/30/16 17:16 11/30/16 17:25 Glucose (Fingerstick) 251mg/dL (70-99) 211mg/dL (70-99) Heparin Anti-Xa Act, Unfractionated 0.33IU/mL (0.30-0.70) 0.23IU/mL (0.30-0.70) Test 12/01/16 00:10 12/01/16 00:15 12/01/16 06:02 12/01/16 06:10 Heparin Anti-Xa Act, Unfractionated 0.22IU/mL (0.30-0.70) 0.24IU/mL (0.30-0.70) Glucose (Fingerstick) 201mg/dL (70-99) 204mg/dL (70-99) White Blood Count 10.6x10^3/uL (4.0-11.0) Red Blood Count 2.46x10^6/uL (4.30-5.70) Hemoglobin 7.5g/dL (13.0-17.5) Hematocrit 22.0% (39.0-53.0) Mean Corpuscular Volume 89fL (79-100) Mean Corpuscular Hemoglobin 30pg (25-35) Mean Corpuscular Hemoglobin Concent 34g/dL (31-37) Red Cell Distribution Width 15.2% (11.5-14.5) Platelet Count 96x10^3/uL (140-400) Sodium Level 143mmol/L (136-145) Potassium Level 3.7mmol/L (3.5-5.1) Chloride Level 109mmol/L (98-107) Carbon Dioxide Level 26mmol/L (21-32) Anion Gap 8 (6-14) Blood Urea Nitrogen 41mg/dL (8-26) Creatinine 1.7mg/dL (0.7-1.3) Estimated GFR (Cockcroft-Gault) 39.9 Glucose Level 205mg/dL (70-99) Calcium Level 8.2mg/dL (8.5-10.1) Phosphorus Level 3.1mg/dL (2.6-4.7) Magnesium Level 2.0mg/dL (1.8-2.4) Iron Level 34ug/dL (65-175) Total Iron Binding Capacity 152ug/dL (250-450) Iron Saturation 22% (15-34) Total Bilirubin 1.4mg/dL (0.2-1.0) Direct Bilirubin 0.3mg/dL (0.0-0.2) Aspartate Amino Transf (AST/SGOT) 35U/L (15-37) Alanine Aminotransferase (ALT/SGPT) 63U/L (16-63) Alkaline Phosphatase 123U/L (46-116) Creatine Kinase 153U/L (39-308) Total Protein 5.2g/dL (6.4-8.2) Albumin 2.7g/dL (3.4-5.0) Test 12/01/16 12:51 12/01/16 13:35 12/01/16 17:41 12/01/16 20:00 Glucose (Fingerstick) 237mg/dL (70-99) 202mg/dL (70-99) Heparin Anti-Xa Act, Unfractionated 0.35IU/mL (0.30-0.70) 0.35IU/mL (0.30-0.70) Test 12/01/16 23:57 12/02/16 05:50 12/02/16 05:52 Glucose (Fingerstick) 227mg/dL (70-99) 191mg/dL (70-99) White Blood Count 14.4x10^3/uL (4.0-11.0) Red Blood Count 2.40x10^6/uL (4.30-5.70) Hemoglobin 7.1g/dL (13.0-17.5) Hematocrit 21.2% (39.0-53.0) Mean Corpuscular Volume 88fL (79-100) Mean Corpuscular Hemoglobin 30pg (25-35) Mean Corpuscular Hemoglobin Concent 34g/dL (31-37) Red Cell Distribution Width 15.5% (11.5-14.5) Platelet Count 150x10^3/uL (140-400) Neutrophils (%) (Auto) 74% (31-73) Lymphocytes (%) (Auto) 8% (24-48) Monocytes (%) (Auto) 11% (0-9) Eosinophils (%) (Auto) 7% (0-3) Basophils (%) (Auto) 0% (0-3) Neutrophils # (Auto) 10.6x10^3uL (1.8-7.7) Lymphocytes # (Auto) 1.2x10^3/uL (1.0-4.8) Monocytes # (Auto) 1.6x10^3/uL (0.0-1.1) Eosinophils # (Auto) 1.0x10^3/uL (0.0-0.7) Basophils # (Auto) 0.0x10^3/uL (0.0-0.2) Heparin Anti-Xa Act, Unfractionated 0.38IU/mL (0.30-0.70) Sodium Level 145mmol/L (136-145) Potassium Level 3.9mmol/L (3.5-5.1) Chloride Level 110mmol/L (98-107) Carbon Dioxide Level 24mmol/L (21-32) Anion Gap 11 (6-14) Blood Urea Nitrogen 38mg/dL (8-26) Creatinine 1.7mg/dL (0.7-1.3) Estimated GFR (Cockcroft-Gault) 39.9 Glucose Level 202mg/dL (70-99) Calcium Level 8.6mg/dL (8.5-10.1) Phosphorus Level 3.5mg/dL (2.6-4.7) Magnesium Level 1.9mg/dL (1.8-2.4) Creatine Kinase 113U/L (39-308) Albumin 2.7g/dL (3.4-5.0) Triglycerides Level 188mg/dL (0-150) Laboratory Tests Test 12/01/16 12:51 12/01/16 13:35 12/01/16 17:41 12/01/16 20:00 Glucose (Fingerstick) 237mg/dL (70-99) 202mg/dL (70-99) Heparin Anti-Xa Act, Unfractionated 0.35IU/mL (0.30-0.70) 0.35IU/mL (0.30-0.70) Test 12/01/16 23:57 12/02/16 05:50 12/02/16 05:52 Glucose (Fingerstick) 227mg/dL (70-99) 191mg/dL (70-99) White Blood Count 14.4x10^3/uL (4.0-11.0) Red Blood Count 2.40x10^6/uL (4.30-5.70) Hemoglobin 7.1g/dL (13.0-17.5) Hematocrit 21.2% (39.0-53.0) Mean Corpuscular Volume 88fL (79-100) Mean Corpuscular Hemoglobin 30pg (25-35) Mean Corpuscular Hemoglobin Concent 34g/dL (31-37) Red Cell Distribution Width 15.5% (11.5-14.5) Platelet Count 150x10^3/uL (140-400) Neutrophils (%) (Auto) 74% (31-73) Lymphocytes (%) (Auto) 8% (24-48) Monocytes (%) (Auto) 11% (0-9) Eosinophils (%) (Auto) 7% (0-3) Basophils (%) (Auto) 0% (0-3) Neutrophils # (Auto) 10.6x10^3uL (1.8-7.7) Lymphocytes # (Auto) 1.2x10^3/uL (1.0-4.8) Monocytes # (Auto) 1.6x10^3/uL (0.0-1.1) Eosinophils # (Auto) 1.0x10^3/uL (0.0-0.7) Basophils # (Auto) 0.0x10^3/uL (0.0-0.2) Heparin Anti-Xa Act, Unfractionated 0.38IU/mL (0.30-0.70) Sodium Level 145mmol/L (136-145) Potassium Level 3.9mmol/L (3.5-5.1) Chloride Level 110mmol/L (98-107) Carbon Dioxide Level 24mmol/L (21-32) Anion Gap 11 (6-14) Blood Urea Nitrogen 38mg/dL (8-26) Creatinine 1.7mg/dL (0.7-1.3) Estimated GFR (Cockcroft-Gault) 39.9 Glucose Level 202mg/dL (70-99) Calcium Level 8.6mg/dL (8.5-10.1) Phosphorus Level 3.5mg/dL (2.6-4.7) Magnesium Level 1.9mg/dL (1.8-2.4) Creatine Kinase 113U/L (39-308) Albumin 2.7g/dL (3.4-5.0) Triglycerides Level 188mg/dL (0-150) Comments cxr reviewed, increased vm, ll infilt atelectasis effusion R>L Impression . 1. Acute respiratory failure secondary to [id number] cardiopulmonary arrest. Suspect secondary to arrhythmia. 2. Hyperlipidemia. 3. Diabetes. 4. Positive venous Doppler/ high prob V/Q, on Heparin/ popliteal nonocclusive thrombus. 5. Metabolic acidosis sec to code, improved. 6. PE 7. Ischemia CM 35-40% 8. Acute kidney injury 9. anemia, 10. wheezing, acute bronchospasm, resolved 11. abnl cxr, suspect chf Plan . pt improving cath in future 1. off Bipap , use prn 2. s/p hypothermic protocol 3. Cardiology, follow rec 4. follow nephrology input, keep I<O, lasix monitor k, cr 5. Further cardiac workup per Dr. Lu. 6. Titrate FIO2. 7. cont antibiotics. 8. bronchodilator, ics 9. Protonix 10. heparin gtt, s/p ivc filter 11/29, monitor closely for bleeding, no retro peritoneal bleed, start Coumadin once ready to eat PO. 3 months total AC [facility] GUILLORY MD Dec 02, 2016 09:02
[2016-12-02] MEDS: PANTOPRAZOLE IV PUSH 40 MG VIAL. IVP SCH (09:05)
[2016-12-02] MEDS: ASPIRIN 300 MG SUPP.RECT PR SCH (09:06)
--- NOTE | 2016-12-02 09:26 | PDOC ---
Subjective: Subjective: Onc f/u- Cytopenias, DVT/ PE Pt nauseated this AM. Mild SOB. Fatigued. No CP. No new bruising. Objective: Vital Signs: Vital Signs Date Time Temp Pulse Resp B/P Pulse Ox O2 Delivery O2 Flow Rate FiO2 12/02/16 09:06 85 138/52 12/02/16 08:21 4.0 12/02/16 08:00 Nasal Cannula 12/02/16 07:54 99 12/02/16 07:00 97.5 24 97.5 Physical Exam: Heart: Regular rate Extremities: No edema General: Alert, Oriented X3, Cooperative, No acute distress, Other (fatigued) Lungs: Clear to auscultation, Other (tachpneic) Psych/Mental Status: Mental status NL, Mood NL Skin: Other (no new bruising) Labs/Imaging: Hgb down to 7,1. plt up to 150 Assessment/Plan A/P: 1. Bilateral DVT/ PE- S/p IVC, on heparin gtt. Would recommend lifelong anticoag due to catastrophic nature of this event. Will hold off on final decisions about medication choice until cardiology plans are clear. Continue heparin gtt for now. 2. Acute blood loss anemia, now likely worsened by critical illness, mixed iron picture. Gave venofer 12/02. Transfuse today. 3. Thrombocytopenia- Present on admit, likely code related. WNL today. 4. S/p cardiac arrest, CHF (EF 35%), dilated RV. Possible cath when stable. 5. Acute vs CKD- stable 6. Transaminitis- Improving. Plan: - Daily CBC - Transfuse PRBC today - Heparin until cardiology plans are clear. If no plans for further procedures would start coumadin. Recommend lifelong anticoag given catastrophic presentation with his clots. EVELYN LABOY DO Dec 02, 2016 09:26
--- NOTE | 2016-12-02 10:18 | PDOC ---
Subjective: Subjective: Denies pain. Objective: Objective: RN/staff in room cleaning pt. No bleeding, currently transfusing 1 unit pRBCs. Small loose stools. TRIM OPERATOR to see again today - "almost passed" yesterday. Vital Signs: Vital Signs Date Time Temp Pulse Resp B/P Pulse Ox O2 Delivery O2 Flow Rate FiO2 12/02/16 09:53 97.6 80 24 138/52 97.6 12/02/16 08:21 4.0 12/02/16 08:00 Nasal Cannula 12/02/16 07:54 99 Labs: Laboratory Tests Test 12/01/16 12:51 12/01/16 13:35 12/01/16 17:41 12/01/16 20:00 Glucose (Fingerstick) 237mg/dL 202mg/dL Heparin Anti-Xa Act, Unfractionated 0.35IU/mL 0.35IU/mL Test 12/01/16 23:57 12/02/16 05:50 12/02/16 05:52 Glucose (Fingerstick) 227mg/dL 191mg/dL White Blood Count 14.4x10^3/uL Red Blood Count 2.40x10^6/uL Hemoglobin 7.1g/dL Hematocrit 21.2% Mean Corpuscular Volume 88fL Mean Corpuscular Hemoglobin 30pg Mean Corpuscular Hemoglobin Concent 34g/dL Red Cell Distribution Width 15.5% Platelet Count 150x10^3/uL Neutrophils (%) (Auto) 74% Lymphocytes (%) (Auto) 8% Monocytes (%) (Auto) 11% Eosinophils (%) (Auto) 7% Basophils (%) (Auto) 0% Neutrophils # (Auto) 10.6x10^3uL Lymphocytes # (Auto) 1.2x10^3/uL Monocytes # (Auto) 1.6x10^3/uL Eosinophils # (Auto) 1.0x10^3/uL Basophils # (Auto) 0.0x10^3/uL Heparin Anti-Xa Act, Unfractionated 0.38IU/mL Sodium Level 145mmol/L Potassium Level 3.9mmol/L Chloride Level 110mmol/L Carbon Dioxide Level 24mmol/L Anion Gap 11 Blood Urea Nitrogen 38mg/dL Creatinine 1.7mg/dL Estimated GFR (Cockcroft-Gault) 39.9 Glucose Level 202mg/dL Calcium Level 8.6mg/dL Phosphorus Level 3.5mg/dL Magnesium Level 1.9mg/dL Creatine Kinase 113U/L Albumin 2.7g/dL Triglycerides Level 188mg/dL PE: GEN: NAD, rolled on side while staff cleaning LUNGS: clear anteriorly HEART: S1S2 ABD: BS+ S/ND/NT NEURO/PSYCH: A & O 3 A/P: Anemia -Hgb in 7s, heme/onc following, transfusing pRBCs again today -significant ecchymosis, on Heparin Cardiac arrest, resp failure, HAMILTON -on TPN, IV PPI Loose stools -previous C Diff neg -- Continue same per GI. Await TRIM OPERATOR re-eval, monitor labs. YAMEL CUEVAS Dec 02, 2016 10:18
[2016-12-02] MEDS: TPN PER PHARMACY MC PRN (10:57)
[2016-12-02] MEDS: ANTI-COAG MONITOR BY PHARMACY. MC PRN (10:58)
--- NOTE | 2016-12-02 11:18 | PDOC ---
CARMELO POSADAS BLEACHER OPERATOR 12/02/16 1118: CARDIO Progress Notes Date and Time Date of Service 12/02/16 Time of Evaluation 1035 Subjective Subjective: No Chest Pain, No shortness of breath, No Palpitations, Other ( mild dyspnea. fatigued, but continues to improve.) Comments: no acute events overnight Vitals Vitals Vital Signs Date Time Temp Pulse Resp B/P Pulse Ox O2 Delivery O2 Flow Rate FiO2 12/02/16 11:00 98.2 86 22 159/62 96 Nasal Cannula 4.0 98.2 Weight Weight [ ] Input and Output Intake and Output Intake and Output 12/02/16 07:00 Intake Total 3885 ml Output Total 3860 ml Balance 25 ml IV Total 3885 ml Output Urine Total 3860 ml Laboratory Labs Laboratory Tests Test 12/01/16 12:51 12/01/16 13:35 12/01/16 17:41 12/01/16 20:00 Glucose (Fingerstick) 237mg/dL (70-99) 202mg/dL (70-99) Heparin Anti-Xa Act, Unfractionated 0.35IU/mL (0.30-0.70) 0.35IU/mL (0.30-0.70) Test 12/01/16 23:57 12/02/16 05:50 12/02/16 05:52 Glucose (Fingerstick) 227mg/dL (70-99) 191mg/dL (70-99) White Blood Count 14.4x10^3/uL (4.0-11.0) Red Blood Count 2.40x10^6/uL (4.30-5.70) Hemoglobin 7.1g/dL (13.0-17.5) Hematocrit 21.2% (39.0-53.0) Mean Corpuscular Volume 88fL (79-100) Mean Corpuscular Hemoglobin 30pg (25-35) Mean Corpuscular Hemoglobin Concent 34g/dL (31-37) Red Cell Distribution Width 15.5% (11.5-14.5) Platelet Count 150x10^3/uL (140-400) Neutrophils (%) (Auto) 74% (31-73) Lymphocytes (%) (Auto) 8% (24-48) Monocytes (%) (Auto) 11% (0-9) Eosinophils (%) (Auto) 7% (0-3) Basophils (%) (Auto) 0% (0-3) Neutrophils # (Auto) 10.6x10^3uL (1.8-7.7) Lymphocytes # (Auto) 1.2x10^3/uL (1.0-4.8) Monocytes # (Auto) 1.6x10^3/uL (0.0-1.1) Eosinophils # (Auto) 1.0x10^3/uL (0.0-0.7) Basophils # (Auto) 0.0x10^3/uL (0.0-0.2) Heparin Anti-Xa Act, Unfractionated 0.38IU/mL (0.30-0.70) Sodium Level 145mmol/L (136-145) Potassium Level 3.9mmol/L (3.5-5.1) Chloride Level 110mmol/L (98-107) Carbon Dioxide Level 24mmol/L (21-32) Anion Gap 11 (6-14) Blood Urea Nitrogen 38mg/dL (8-26) Creatinine 1.7mg/dL (0.7-1.3) Estimated GFR (Cockcroft-Gault) 39.9 Glucose Level 202mg/dL (70-99) Calcium Level 8.6mg/dL (8.5-10.1) Phosphorus Level 3.5mg/dL (2.6-4.7) Magnesium Level 1.9mg/dL (1.8-2.4) Creatine Kinase 113U/L (39-308) Albumin 2.7g/dL (3.4-5.0) Triglycerides Level 188mg/dL (0-150) Microbiology Micro Microbiology 11/28/16 Blood Culture - Preliminary, Resulted NO GROWTH AFTER 4 DAYS 11/24/16 Stool Culture - Final, Complete 11/24/16 Stool Culture Result 1 (ROSIE) - Final, Complete 11/24/16 Campylobacter Antigen Assay - Final, Complete 11/24/16 Campylobactor Result 1 - Final, Complete 11/24/16 Shiga Toxin Test - Final, Complete 11/25/16 Urine Culture - Final, Complete 11/25/16 Urine Culture Result 1 (ROSIE) - Final, Complete Review of Systems Constitutional: yes: alert, oriented, weakness Ears/Nose/Throat: Yes: no symptom reported Eyes: Yes: no symptom reported Pulmonary: Yes dyspnea Cardiovascular: Yes no symptom reported Gastrointestional: Yes: no symptom reported Musculoskeletal: Yes: muscle stiffness Skin: Yes no symptom reported Psychiatric/Neurological: Yes: no symptom reported Physical Exam HEENT: Neck Supple W Full Motion Chest: Symmetric LUNGS: Clear to Auscultation, Other (diminished bases ) Heart: S1S2, RRR, no murmurs, other (tele SR) Abdomen: Soft N/T, Other (diffuse ecchymosis of bilateral groin area, lightening ) Extremities: 2+ Dorsalis Pedis, Other (1+ bilateral LE edema, diffuse upper ext ecchymosis ) Neurology: alert, oriented, follow commands, other Assessment Assessment 1. Cardiac arrest 2. Acute Respiratory failure 2/2 PE 3. PE 4. Bilateral DVT s/p IVC 5. Presumed ischemic cardiomyopathy; EF 35-40% 6. HAMILTON 9. Hypertension 10. Anemia Recommendations PRBC's x1 transfusing ST to re-evaluate swallowing- convert meds to oral when taking PO. Possible cardiac cath later this week if continued improvement Continue heparin gtt; start Coumadin following cath. Monitor fluid status; diuresis as warranted Supportive care FARIDA ALDRICH MD 12/02/16 1830: CARDIO Progress Notes Plan Plan Pt. seen and examined. Agree with above APPLE TURNER note. No acute events overnight. Slowly improving. RLE edema greater than right. labs reviewed. receiving 1 unit prbc will plan for cath on . Will follow along. CARMELO POSADAS APRN Dec 02, 2016 11:18 FARIDA ALDRICH MD Dec 02, 2016 18:30
--- NOTE | 2016-12-02 11:45 | PDOC ---
Renal-Progress Notes Subjective Notes Notes TIRED WITH SOME SOB History of Present Illness Hx of present illness STABLE Vitals Vitals Vital Signs Date Time Temp Pulse Resp B/P Pulse Ox O2 Delivery O2 Flow Rate FiO2 12/02/16 11:00 98.2 86 22 159/62 96 Nasal Cannula 4.0 98.2 Weight Weight [ ] I.O. Intake and Output Intake and Output 12/02/16 07:00 Intake Total 3885 ml Output Total 3860 ml Balance 25 ml IV Total 3885 ml Output Urine Total 3860 ml Labs Labs Laboratory Tests Test 12/01/16 12:51 12/01/16 13:35 12/01/16 17:41 12/01/16 20:00 Glucose (Fingerstick) 237mg/dL (70-99) 202mg/dL (70-99) Heparin Anti-Xa Act, Unfractionated 0.35IU/mL (0.30-0.70) 0.35IU/mL (0.30-0.70) Test 12/01/16 23:57 12/02/16 05:50 12/02/16 05:52 Glucose (Fingerstick) 227mg/dL (70-99) 191mg/dL (70-99) White Blood Count 14.4x10^3/uL (4.0-11.0) Red Blood Count 2.40x10^6/uL (4.30-5.70) Hemoglobin 7.1g/dL (13.0-17.5) Hematocrit 21.2% (39.0-53.0) Mean Corpuscular Volume 88fL (79-100) Mean Corpuscular Hemoglobin 30pg (25-35) Mean Corpuscular Hemoglobin Concent 34g/dL (31-37) Red Cell Distribution Width 15.5% (11.5-14.5) Platelet Count 150x10^3/uL (140-400) Neutrophils (%) (Auto) 74% (31-73) Lymphocytes (%) (Auto) 8% (24-48) Monocytes (%) (Auto) 11% (0-9) Eosinophils (%) (Auto) 7% (0-3) Basophils (%) (Auto) 0% (0-3) Neutrophils # (Auto) 10.6x10^3uL (1.8-7.7) Lymphocytes # (Auto) 1.2x10^3/uL (1.0-4.8) Monocytes # (Auto) 1.6x10^3/uL (0.0-1.1) Eosinophils # (Auto) 1.0x10^3/uL (0.0-0.7) Basophils # (Auto) 0.0x10^3/uL (0.0-0.2) Heparin Anti-Xa Act, Unfractionated 0.38IU/mL (0.30-0.70) Sodium Level 145mmol/L (136-145) Potassium Level 3.9mmol/L (3.5-5.1) Chloride Level 110mmol/L (98-107) Carbon Dioxide Level 24mmol/L (21-32) Anion Gap 11 (6-14) Blood Urea Nitrogen 38mg/dL (8-26) Creatinine 1.7mg/dL (0.7-1.3) Estimated GFR (Cockcroft-Gault) 39.9 Glucose Level 202mg/dL (70-99) Calcium Level 8.6mg/dL (8.5-10.1) Phosphorus Level 3.5mg/dL (2.6-4.7) Magnesium Level 1.9mg/dL (1.8-2.4) Creatine Kinase 113U/L (39-308) Albumin 2.7g/dL (3.4-5.0) Triglycerides Level 188mg/dL (0-150) Micro Micro Microbiology 11/28/16 Blood Culture - Preliminary, Resulted NO GROWTH AFTER 4 DAYS 11/24/16 Stool Culture - Final, Complete 11/24/16 Stool Culture Result 1 (ROSIE) - Final, Complete 11/24/16 Campylobacter Antigen Assay - Final, Complete 11/24/16 Campylobactor Result 1 - Final, Complete 11/24/16 Shiga Toxin Test - Final, Complete 11/25/16 Urine Culture - Final, Complete 11/25/16 Urine Culture Result 1 (ROSIE) - Final, Complete Review of Systems Constitutional: yes: alert, oriented, weakness Ears/Nose/Throat: Yes: no symptom reported Eyes: Yes: no symptom reported Pulmonary: Yes dyspnea Cardiovascular: Yes no symptom reported Gastrointestional: Yes: no symptom reported Musculoskeletal: Yes: muscle stiffness Skin: Yes no symptom reported Psychiatric/Neurological: Yes: no symptom reported Physical Exam General Appearance: no apparent distress Skin: warm Respiratory: decreased breath sounds Heart: S1S2 Abdomen: soft, bowel sounds present Neurology: alert, oriented, follow commands, other Assessment Assessment IMP HAMILTON-BETTER WITH CR 2.6 TO 1.7 RESP FAILURE PE ANEMIA PLAN PRBC TODAY CONT TPN WILL D/C TEMP HD CATHETER TODAY DAILY IV LASIX FOR NOW LABS IN AM WILL FOLLOW LEFTY MONTERO MD Dec 02, 2016 11:45
--- NOTE | 2016-12-02 11:45 | PDOC ---
SURGICAL PROGRESS NOTE Subjective Pt ambulating with PT, denies abd pain currently, but has had that previously Vital Signs Vital Signs Date Time Temp Pulse Resp B/P Pulse Ox O2 Delivery O2 Flow Rate FiO2 12/02/16 11:00 98.2 86 22 159/62 96 Nasal Cannula 4.0 98.2 I&O Intake and Output 12/02/16 07:00 Intake Total 3885 ml Output Total 3860 ml Balance 25 ml IV Total 3885 ml Output Urine Total 3860 ml General: Alert, Oriented X3, Cooperative, No acute distress Abdomen: Soft Labs Laboratory Tests Test 11/30/16 17:16 11/30/16 17:25 12/01/16 00:10 12/01/16 00:15 Glucose (Fingerstick) 211mg/dL (70-99) 201mg/dL (70-99) Heparin Anti-Xa Act, Unfractionated 0.23IU/mL (0.30-0.70) 0.22IU/mL (0.30-0.70) Test 12/01/16 06:02 12/01/16 06:10 12/01/16 12:51 12/01/16 13:35 Glucose (Fingerstick) 204mg/dL (70-99) 237mg/dL (70-99) White Blood Count 10.6x10^3/uL (4.0-11.0) Red Blood Count 2.46x10^6/uL (4.30-5.70) Hemoglobin 7.5g/dL (13.0-17.5) Hematocrit 22.0% (39.0-53.0) Mean Corpuscular Volume 89fL (79-100) Mean Corpuscular Hemoglobin 30pg (25-35) Mean Corpuscular Hemoglobin Concent 34g/dL (31-37) Red Cell Distribution Width 15.2% (11.5-14.5) Platelet Count 96x10^3/uL (140-400) Heparin Anti-Xa Act, Unfractionated 0.24IU/mL (0.30-0.70) 0.35IU/mL (0.30-0.70) Sodium Level 143mmol/L (136-145) Potassium Level 3.7mmol/L (3.5-5.1) Chloride Level 109mmol/L (98-107) Carbon Dioxide Level 26mmol/L (21-32) Anion Gap 8 (6-14) Blood Urea Nitrogen 41mg/dL (8-26) Creatinine 1.7mg/dL (0.7-1.3) Estimated GFR (Cockcroft-Gault) 39.9 Glucose Level 205mg/dL (70-99) Calcium Level 8.2mg/dL (8.5-10.1) Phosphorus Level 3.1mg/dL (2.6-4.7) Magnesium Level 2.0mg/dL (1.8-2.4) Iron Level 34ug/dL (65-175) Total Iron Binding Capacity 152ug/dL (250-450) Iron Saturation 22% (15-34) Total Bilirubin 1.4mg/dL (0.2-1.0) Direct Bilirubin 0.3mg/dL (0.0-0.2) Aspartate Amino Transf (AST/SGOT) 35U/L (15-37) Alanine Aminotransferase (ALT/SGPT) 63U/L (16-63) Alkaline Phosphatase 123U/L (46-116) Creatine Kinase 153U/L (39-308) Total Protein 5.2g/dL (6.4-8.2) Albumin 2.7g/dL (3.4-5.0) Test 12/01/16 17:41 12/01/16 20:00 12/01/16 23:57 12/02/16 05:50 Glucose (Fingerstick) 202mg/dL (70-99) 227mg/dL (70-99) Heparin Anti-Xa Act, Unfractionated 0.35IU/mL (0.30-0.70) 0.38IU/mL (0.30-0.70) White Blood Count 14.4x10^3/uL (4.0-11.0) Red Blood Count 2.40x10^6/uL (4.30-5.70) Hemoglobin 7.1g/dL (13.0-17.5) Hematocrit 21.2% (39.0-53.0) Mean Corpuscular Volume 88fL (79-100) Mean Corpuscular Hemoglobin 30pg (25-35) Mean Corpuscular Hemoglobin Concent 34g/dL (31-37) Red Cell Distribution Width 15.5% (11.5-14.5) Platelet Count 150x10^3/uL (140-400) Neutrophils (%) (Auto) 74% (31-73) Lymphocytes (%) (Auto) 8% (24-48) Monocytes (%) (Auto) 11% (0-9) Eosinophils (%) (Auto) 7% (0-3) Basophils (%) (Auto) 0% (0-3) Neutrophils # (Auto) 10.6x10^3uL (1.8-7.7) Lymphocytes # (Auto) 1.2x10^3/uL (1.0-4.8) Monocytes # (Auto) 1.6x10^3/uL (0.0-1.1) Eosinophils # (Auto) 1.0x10^3/uL (0.0-0.7) Basophils # (Auto) 0.0x10^3/uL (0.0-0.2) Sodium Level 145mmol/L (136-145) Potassium Level 3.9mmol/L (3.5-5.1) Chloride Level 110mmol/L (98-107) Carbon Dioxide Level 24mmol/L (21-32) Anion Gap 11 (6-14) Blood Urea Nitrogen 38mg/dL (8-26) Creatinine 1.7mg/dL (0.7-1.3) Estimated GFR (Cockcroft-Gault) 39.9 Glucose Level 202mg/dL (70-99) Calcium Level 8.6mg/dL (8.5-10.1) Phosphorus Level 3.5mg/dL (2.6-4.7) Magnesium Level 1.9mg/dL (1.8-2.4) Creatine Kinase 113U/L (39-308) Albumin 2.7g/dL (3.4-5.0) Triglycerides Level 188mg/dL (0-150) Test 12/02/16 05:52 Glucose (Fingerstick) 191mg/dL (70-99) Laboratory Tests Test 12/01/16 12:51 12/01/16 13:35 12/01/16 17:41 12/01/16 20:00 Glucose (Fingerstick) 237mg/dL (70-99) 202mg/dL (70-99) Heparin Anti-Xa Act, Unfractionated 0.35IU/mL (0.30-0.70) 0.35IU/mL (0.30-0.70) Test 12/01/16 23:57 12/02/16 05:50 12/02/16 05:52 Glucose (Fingerstick) 227mg/dL (70-99) 191mg/dL (70-99) White Blood Count 14.4x10^3/uL (4.0-11.0) Red Blood Count 2.40x10^6/uL (4.30-5.70) Hemoglobin 7.1g/dL (13.0-17.5) Hematocrit 21.2% (39.0-53.0) Mean Corpuscular Volume 88fL (79-100) Mean Corpuscular Hemoglobin 30pg (25-35) Mean Corpuscular Hemoglobin Concent 34g/dL (31-37) Red Cell Distribution Width 15.5% (11.5-14.5) Platelet Count 150x10^3/uL (140-400) Neutrophils (%) (Auto) 74% (31-73) Lymphocytes (%) (Auto) 8% (24-48) Monocytes (%) (Auto) 11% (0-9) Eosinophils (%) (Auto) 7% (0-3) Basophils (%) (Auto) 0% (0-3) Neutrophils # (Auto) 10.6x10^3uL (1.8-7.7) Lymphocytes # (Auto) 1.2x10^3/uL (1.0-4.8) Monocytes # (Auto) 1.6x10^3/uL (0.0-1.1) Eosinophils # (Auto) 1.0x10^3/uL (0.0-0.7) Basophils # (Auto) 0.0x10^3/uL (0.0-0.2) Heparin Anti-Xa Act, Unfractionated 0.38IU/mL (0.30-0.70) Sodium Level 145mmol/L (136-145) Potassium Level 3.9mmol/L (3.5-5.1) Chloride Level 110mmol/L (98-107) Carbon Dioxide Level 24mmol/L (21-32) Anion Gap 11 (6-14) Blood Urea Nitrogen 38mg/dL (8-26) Creatinine 1.7mg/dL (0.7-1.3) Estimated GFR (Cockcroft-Gault) 39.9 Glucose Level 202mg/dL (70-99) Calcium Level 8.6mg/dL (8.5-10.1) Phosphorus Level 3.5mg/dL (2.6-4.7) Magnesium Level 1.9mg/dL (1.8-2.4) Creatine Kinase 113U/L (39-308) Albumin 2.7g/dL (3.4-5.0) Triglycerides Level 188mg/dL (0-150) Problem List Problems Medical Problems: (1) Cardiac arrest Status: Acute Assessment/Plan loose stools cont care per GI no surgical plans Problems: MALCOLM RAYMOND MD Dec 02, 2016 11:45
[2016-12-02] MEDS: FUROSEMIDE 40 MG/4 ML VIAL IVP SCH (12:38)
[2016-12-02] MEDS ORDERED: ACETAMINOPHEN 650 MG SUPP.RECT. PR PRN ×2 (13:30→13:45)
[2016-12-02] MEDS: HEPARIN 25,000UTS/500ML PREMIX 500 ML IV PRN (14:53)
[2016-12-02] MEDS: hydrALAZINE 20 MG/ML VIAL. IVP PRN (20:18)
[2016-12-02] MEDS ORDERED: AMINO ACIDS IV SCH ×10 (22:00)
[2016-12-02] MEDS ORDERED: TOTAL PARENTERAL NUTRITION IV SCH ×10 (22:00)
[2016-12-02] MEDS ORDERED: [UNRECOGNIZED DRUG - OTHER] IV SCH ×10 (22:00)
[2016-12-02] MEDS ORDERED: DEXTROSE 70% IV SCH ×10 (22:00)
[2016-12-03] VITALS (20 sets, daily range): BP systolic 144–203; BP diastolic 45–85
[2016-12-03] MEDS: INSULIN ASPART 300 UNITS/3 ML INSULN.PEN SQ SCH ×4 (00:05→17:45)
[2016-12-03] MEDS: PIPERACILLIN/TAZOBACTAM 3.375 GM in IV NORMAL SALINE 50ML 50 ML IV SCH ×4 (00:06→17:33)
[2016-12-03] MEDS: METOPROLOL TARTRATE 5 MG/5 ML VIAL. IVP SCH ×4 (04:20→21:40)
[2016-12-03 05:35] LABS: HEMATOCRIT 24.8 % (39.0-53.0); HEMOGLOBIN 8.3 g/dL (13.0-17.5); RED BLOOD COUNT 2.79 x10^6/uL (4.30-5.70); RED CELL DISTRIBUTION WIDTH 15.4 % (11.5-14.5)
[2016-12-03 05:51] LABS: ALBUMIN 2.7 g/dL (3.4-5.0); CALCIUM 8.7 mg/dL (8.5-10.1); CREATININE 1.7 mg/dL (0.7-1.3); GFR 39.9; PHOSPHORUS 3.8 mg/dL (2.6-4.7); POTASSIUM 4.1 mmol/L (3.5-5.1)
[2016-12-03] MEDS: HEPARIN 25,000UTS/500ML PREMIX 500 ML IV PRN (06:33)
[2016-12-03] MEDS: IPRATROPIUM BROMIDE 0.5 MG/2.5 ML NEBU. NEB SCH ×4 (07:19→20:03)
[2016-12-03] MEDS: BUDESONIDE 0.5 MG/2 ML NEBU. NEB SCH ×2 (07:19→20:03)
--- NOTE | 2016-12-03 07:54 | PDOC ---
Infectious Disease Note Subjective Subjective awake, feeling better, on NC, up in chair ROS ROS GEN: Denies fevers, chills, sweats HEENT: Denies blurred vision, sore throat CV: Denies chest pain RESP: Denies shortness of air, cough GI: Denies n/v/d NEURO: Denies confusion, dizziness Vital Sign Vital Signs Vital Signs Date Time Temp Pulse Resp B/P Pulse Ox O2 Delivery O2 Flow Rate FiO2 12/03/16 07:20 99 Nasal Cannula 4.0 12/03/16 06:00 89 22 155/73 12/03/16 04:00 98.3 98.3 Physical Exam PHYSICAL EXAM GENERAL: NAD, Alert HEENT: PERRL, OC/OP NECK: Supple, no JVD, no LN LUNGS: Clear HEART: S1S2, no gallop, no murmur ABD: Soft, NT, no organomegaly, no rebound EXT: No edema, no cyanosis ASSISTANT CASINO SHIFT MANAGER: Alert, oriented x 3, no focal neurologic deficit SKIN: No rash IV: ok Labs Lab Laboratory Tests Test 12/02/16 12:29 12/02/16 15:50 12/02/16 15:53 12/02/16 23:58 Glucose (Fingerstick) 192mg/dL (70-99) 213mg/dL (70-99) 195mg/dL (70-99) Heparin Anti-Xa Act, Unfractionated 0.40IU/mL (0.30-0.70) Test 12/03/16 05:15 White Blood Count 15.0x10^3/uL (4.0-11.0) Red Blood Count 2.79x10^6/uL (4.30-5.70) Hemoglobin 8.3g/dL (13.0-17.5) Hematocrit 24.8% (39.0-53.0) Mean Corpuscular Volume 89fL (79-100) Mean Corpuscular Hemoglobin 30pg (25-35) Mean Corpuscular Hemoglobin Concent 33g/dL (31-37) Red Cell Distribution Width 15.4% (11.5-14.5) Platelet Count 175x10^3/uL (140-400) Heparin Anti-Xa Act, Unfractionated 0.30IU/mL (0.30-0.70) Sodium Level 144mmol/L (136-145) Potassium Level 4.1mmol/L (3.5-5.1) Chloride Level 108mmol/L (98-107) Carbon Dioxide Level 27mmol/L (21-32) Anion Gap 9 (6-14) Blood Urea Nitrogen 40mg/dL (8-26) Creatinine 1.7mg/dL (0.7-1.3) Estimated GFR (Cockcroft-Gault) 39.9 Glucose Level 196mg/dL (70-99) Calcium Level 8.7mg/dL (8.5-10.1) Phosphorus Level 3.8mg/dL (2.6-4.7) Magnesium Level 1.9mg/dL (1.8-2.4) Creatine Kinase 82U/L (39-308) Albumin 2.7g/dL (3.4-5.0) Micro BC 1/ peptostreptococcus Objective Assessment S/P VT/VF Cardiac arrest, on hypothermia protocol DVT suspected PE Suspected ischemic bowel Lactic acidosis Leukocytosis likely reactive BC 1/4 G + cocci Plan Plan of Care Zosyn Repeat BC NGTD Monitor temp Supportive care DANI DIAMOND MD Dec 03, 2016 07:54
[2016-12-03] MEDS: PANTOPRAZOLE IV PUSH 40 MG VIAL. IVP SCH (08:47)
[2016-12-03] MEDS: FUROSEMIDE 40 MG/4 ML VIAL IVP SCH (08:47)
[2016-12-03] MEDS: hydrALAZINE 20 MG/ML VIAL. IVP PRN ×2 (08:48→20:18)
[2016-12-03] MEDS: ASPIRIN 300 MG SUPP.RECT PR SCH (08:48)
--- NOTE | 2016-12-03 08:49 | PDOC ---
PULMONARY PROGRESS NOTES Subjective pt walked in hallway today Vitals Vital Signs Date Time Temp Pulse Resp B/P Pulse Ox O2 Delivery O2 Flow Rate FiO2 12/03/16 07:20 99 Nasal Cannula 4.0 12/03/16 06:00 89 22 155/73 12/03/16 04:00 98.3 98.3 Comments ros as mentioned as above. discussed w rn, other sys otherwise neg General: Alert, No acute distress HEENT: Other (nc at, perrl, nose clear, shallow oropharynx. neck, + jvd, no thyromegaly, no lap) Lungs: Clear Cardiovascular: S1, S2 Abdomen: Soft, Non-tender, Other (no mass) Neuro Exam: Alert Extremities: Other (2=edema) Skin: Warm Labs Laboratory Tests Test 12/01/16 12:51 12/01/16 13:35 12/01/16 17:41 12/01/16 20:00 Glucose (Fingerstick) 237mg/dL (70-99) 202mg/dL (70-99) Heparin Anti-Xa Act, Unfractionated 0.35IU/mL (0.30-0.70) 0.35IU/mL (0.30-0.70) Test 12/01/16 23:57 12/02/16 05:50 12/02/16 05:52 12/02/16 12:29 Glucose (Fingerstick) 227mg/dL (70-99) 191mg/dL (70-99) 192mg/dL (70-99) White Blood Count 14.4x10^3/uL (4.0-11.0) Red Blood Count 2.40x10^6/uL (4.30-5.70) Hemoglobin 7.1g/dL (13.0-17.5) Hematocrit 21.2% (39.0-53.0) Mean Corpuscular Volume 88fL (79-100) Mean Corpuscular Hemoglobin 30pg (25-35) Mean Corpuscular Hemoglobin Concent 34g/dL (31-37) Red Cell Distribution Width 15.5% (11.5-14.5) Platelet Count 150x10^3/uL (140-400) Neutrophils (%) (Auto) 74% (31-73) Lymphocytes (%) (Auto) 8% (24-48) Monocytes (%) (Auto) 11% (0-9) Eosinophils (%) (Auto) 7% (0-3) Basophils (%) (Auto) 0% (0-3) Neutrophils # (Auto) 10.6x10^3uL (1.8-7.7) Lymphocytes # (Auto) 1.2x10^3/uL (1.0-4.8) Monocytes # (Auto) 1.6x10^3/uL (0.0-1.1) Eosinophils # (Auto) 1.0x10^3/uL (0.0-0.7) Basophils # (Auto) 0.0x10^3/uL (0.0-0.2) Heparin Anti-Xa Act, Unfractionated 0.38IU/mL (0.30-0.70) Sodium Level 145mmol/L (136-145) Potassium Level 3.9mmol/L (3.5-5.1) Chloride Level 110mmol/L (98-107) Carbon Dioxide Level 24mmol/L (21-32) Anion Gap 11 (6-14) Blood Urea Nitrogen 38mg/dL (8-26) Creatinine 1.7mg/dL (0.7-1.3) Estimated GFR (Cockcroft-Gault) 39.9 Glucose Level 202mg/dL (70-99) Calcium Level 8.6mg/dL (8.5-10.1) Phosphorus Level 3.5mg/dL (2.6-4.7) Magnesium Level 1.9mg/dL (1.8-2.4) Creatine Kinase 113U/L (39-308) Albumin 2.7g/dL (3.4-5.0) Triglycerides Level 188mg/dL (0-150) Test 12/02/16 15:50 12/02/16 15:53 12/02/16 23:58 12/03/16 05:15 Heparin Anti-Xa Act, Unfractionated 0.40IU/mL (0.30-0.70) 0.30IU/mL (0.30-0.70) Glucose (Fingerstick) 213mg/dL (70-99) 195mg/dL (70-99) White Blood Count 15.0x10^3/uL (4.0-11.0) Red Blood Count 2.79x10^6/uL (4.30-5.70) Hemoglobin 8.3g/dL (13.0-17.5) Hematocrit 24.8% (39.0-53.0) Mean Corpuscular Volume 89fL (79-100) Mean Corpuscular Hemoglobin 30pg (25-35) Mean Corpuscular Hemoglobin Concent 33g/dL (31-37) Red Cell Distribution Width 15.4% (11.5-14.5) Platelet Count 175x10^3/uL (140-400) Sodium Level 144mmol/L (136-145) Potassium Level 4.1mmol/L (3.5-5.1) Chloride Level 108mmol/L (98-107) Carbon Dioxide Level 27mmol/L (21-32) Anion Gap 9 (6-14) Blood Urea Nitrogen 40mg/dL (8-26) Creatinine 1.7mg/dL (0.7-1.3) Estimated GFR (Cockcroft-Gault) 39.9 Glucose Level 196mg/dL (70-99) Calcium Level 8.7mg/dL (8.5-10.1) Phosphorus Level 3.8mg/dL (2.6-4.7) Magnesium Level 1.9mg/dL (1.8-2.4) Creatine Kinase 82U/L (39-308) Albumin 2.7g/dL (3.4-5.0) Test 12/03/16 08:34 Glucose (Fingerstick) 183mg/dL (70-99) Laboratory Tests Test 12/02/16 12:29 12/02/16 15:50 12/02/16 15:53 12/02/16 23:58 Glucose (Fingerstick) 192mg/dL (70-99) 213mg/dL (70-99) 195mg/dL (70-99) Heparin Anti-Xa Act, Unfractionated 0.40IU/mL (0.30-0.70) Test 12/03/16 05:15 12/03/16 08:34 White Blood Count 15.0x10^3/uL (4.0-11.0) Red Blood Count 2.79x10^6/uL (4.30-5.70) Hemoglobin 8.3g/dL (13.0-17.5) Hematocrit 24.8% (39.0-53.0) Mean Corpuscular Volume 89fL (79-100) Mean Corpuscular Hemoglobin 30pg (25-35) Mean Corpuscular Hemoglobin Concent 33g/dL (31-37) Red Cell Distribution Width 15.4% (11.5-14.5) Platelet Count 175x10^3/uL (140-400) Heparin Anti-Xa Act, Unfractionated 0.30IU/mL (0.30-0.70) Sodium Level 144mmol/L (136-145) Potassium Level 4.1mmol/L (3.5-5.1) Chloride Level 108mmol/L (98-107) Carbon Dioxide Level 27mmol/L (21-32) Anion Gap 9 (6-14) Blood Urea Nitrogen 40mg/dL (8-26) Creatinine 1.7mg/dL (0.7-1.3) Estimated GFR (Cockcroft-Gault) 39.9 Glucose Level 196mg/dL (70-99) Calcium Level 8.7mg/dL (8.5-10.1) Phosphorus Level 3.8mg/dL (2.6-4.7) Magnesium Level 1.9mg/dL (1.8-2.4) Creatine Kinase 82U/L (39-308) Albumin 2.7g/dL (3.4-5.0) Glucose (Fingerstick) 183mg/dL (70-99) Comments cxr reviewed, increased vm, ll infilt atelectasis effusion R>L Impression . 1. Acute respiratory failure secondary to [id number] cardiopulmonary arrest. Suspect secondary to arrhythmia. 2. Hyperlipidemia. 3. Diabetes. 4. Positive venous Doppler/ high prob V/Q, on Heparin/ popliteal nonocclusive thrombus. 5. Metabolic acidosis sec to code, improved. 6. PE 7. Ischemia CM 35-40% 8. Acute kidney injury 9. anemia, 10. wheezing, acute bronchospasm, resolved 11. abnl cxr, suspect chf Plan . pt improving cath in AM resp status is compensated 1. off Bipap , use prn 2. s/p hypothermic protocol 3. Cardiology, follow rec 4. follow nephrology input 5. Further cardiac workup per Dr. Lu. 6. Titrate FIO2. 7. cont antibiotics. 8. bronchodilator, ics 9. Protonix 10. heparin gtt, s/p ivc filter 11/29, monitor closely for bleeding, no retro peritoneal bleed, start Coumadin once ready to eat PO. 3 months total AC [facility] GUILLORY MD Dec 03, 2016 08:49
--- NOTE | 2016-12-03 09:23 | PDOC ---
Subjective: Subjective: Onc f/u- Cytopenias, DVT/ PE No changes. Resting this AM. Fatigued. Hgb stable. Objective: Vital Signs: Vital Signs Date Time Temp Pulse Resp B/P Pulse Ox O2 Delivery O2 Flow Rate FiO2 12/03/16 08:48 87 179/85 12/03/16 07:20 99 Nasal Cannula 4.0 12/03/16 06:00 22 12/03/16 04:00 98.3 98.3 Physical Exam: Extremities: Other (1+ edema RLE) General: Alert, Oriented X3, No acute distress Lungs: Normal air movement Psych/Mental Status: Mental status NL, Mood NL Skin: No rashes Labs/Imaging: Plt remain WNL Hgb 8.3 Assessment/Plan A/P: 1. Bilateral DVT/ PE- S/p IVC, on heparin gtt. Would recommend lifelong anticoag due to catastrophic nature of this event. Coumadin to start after heart cath tomorrow. 2. Acute blood loss anemia, now likely worsened by critical illness, mixed iron picture. Gave venofer 12/02. S/p transfusion 12/02, stable today. 3. Thrombocytopenia- Present on admit, likely code related. Normal now. 4. S/p cardiac arrest, CHF (EF 35%), dilated RV. Heart cath planned tomorrow. 5. Acute vs CKD- stable Plan: - Daily CBC - Heparin until after cath tomorrow, then start lifelong coumadin if no cardiac interventions needed. Recommend lifelong anticoag given catastrophic presentation with his clots. I will return Thu. EVELYN LABOY DO Dec 03, 2016 09:23
--- NOTE | 2016-12-03 10:00 | PDOC ---
CARMELO POSADAS PRODUCTION CREW SUPERVISOR 12/03/16 1000: CARDIO Progress Notes Date and Time Date of Service 12/03/16 Time of Evaluation 1000 Subjective Subjective: No Chest Pain, No shortness of breath, No Palpitations, Other ( fatigued this morning. confusion yesterday afternoon/evening; wanting help OOB to go to nondenominational) Comments: no acute events overnight; up walking in hallway this morning Vitals Vitals Vital Signs Date Time Temp Pulse Resp B/P Pulse Ox O2 Delivery O2 Flow Rate FiO2 12/03/16 08:48 87 179/85 12/03/16 08:00 Nasal Cannula 3.0 12/03/16 07:20 99 12/03/16 06:00 22 12/03/16 04:00 98.3 98.3 Weight Weight [ ] Input and Output Intake and Output Intake and Output 12/03/16 07:00 Intake Total 2496 ml Output Total 3820 ml Balance -1324 ml Intake Oral 0 ml IV Total 2486 ml Blood Product IV Normal Saline Flush 10 ml Output Urine Total 3820 ml Laboratory Labs Laboratory Tests Test 12/02/16 12:29 12/02/16 15:50 12/02/16 15:53 12/02/16 23:58 Glucose (Fingerstick) 192mg/dL (70-99) 213mg/dL (70-99) 195mg/dL (70-99) Heparin Anti-Xa Act, Unfractionated 0.40IU/mL (0.30-0.70) Test 12/03/16 05:15 12/03/16 08:34 White Blood Count 15.0x10^3/uL (4.0-11.0) Red Blood Count 2.79x10^6/uL (4.30-5.70) Hemoglobin 8.3g/dL (13.0-17.5) Hematocrit 24.8% (39.0-53.0) Mean Corpuscular Volume 89fL (79-100) Mean Corpuscular Hemoglobin 30pg (25-35) Mean Corpuscular Hemoglobin Concent 33g/dL (31-37) Red Cell Distribution Width 15.4% (11.5-14.5) Platelet Count 175x10^3/uL (140-400) Heparin Anti-Xa Act, Unfractionated 0.30IU/mL (0.30-0.70) Sodium Level 144mmol/L (136-145) Potassium Level 4.1mmol/L (3.5-5.1) Chloride Level 108mmol/L (98-107) Carbon Dioxide Level 27mmol/L (21-32) Anion Gap 9 (6-14) Blood Urea Nitrogen 40mg/dL (8-26) Creatinine 1.7mg/dL (0.7-1.3) Estimated GFR (Cockcroft-Gault) 39.9 Glucose Level 196mg/dL (70-99) Calcium Level 8.7mg/dL (8.5-10.1) Phosphorus Level 3.8mg/dL (2.6-4.7) Magnesium Level 1.9mg/dL (1.8-2.4) Creatine Kinase 82U/L (39-308) Albumin 2.7g/dL (3.4-5.0) Glucose (Fingerstick) 183mg/dL (70-99) Microbiology Micro Microbiology 11/28/16 Blood Culture - Final, Complete NO GROWTH AFTER 5 DAYS 11/24/16 Stool Culture - Final, Complete 11/24/16 Stool Culture Result 1 (ROSIE) - Final, Complete 11/24/16 Campylobacter Antigen Assay - Final, Complete 11/24/16 Campylobactor Result 1 - Final, Complete 11/24/16 Shiga Toxin Test - Final, Complete 11/25/16 Urine Culture - Final, Complete 11/25/16 Urine Culture Result 1 (ROSIE) - Final, Complete Review of Systems Constitutional: yes: alert, oriented, weakness Ears/Nose/Throat: Yes: no symptom reported Eyes: Yes: no symptom reported Pulmonary: Yes dyspnea Cardiovascular: Yes no symptom reported Gastrointestional: Yes: no symptom reported Musculoskeletal: Yes: muscle stiffness Skin: Yes no symptom reported Psychiatric/Neurological: Yes: no symptom reported Physical Exam HEENT: Neck Supple W Full Motion Chest: Symmetric LUNGS: Clear to Auscultation, Other (diminished bases ) Heart: S1S2, RRR, no murmurs, other (tele SR) Abdomen: Soft N/T, Other (diffuse ecchymosis of bilateral groin area, lightening ) Extremities: 2+ Dorsalis Pedis, Other (trace LLE edema, 1+ RLE edema. diffuse ecchymosis ) Neurology: alert, oriented, follow commands, confused (intermittent ), other Assessment Assessment 1. Cardiac arrest 2. Acute Respiratory failure 2/2 PE 3. PE 4. Bilateral DVT s/p IVC 5. Presumed ischemic cardiomyopathy; EF 35-40% 6. HAMILTON 9. Hypertension 10. Anemia; hgb 8.3 11. Encephalopathy Recommendations Swallow study failed; repeat study planned for January downgrade to CVC Plan for cath in am. Initiate Coumadin following cath. Cr stable at 1.7; continue daily Lasix Supportive care FARIDA ALDRICH MD 12/03/16 1455: CARDIO Progress Notes Plan Plan Pt. seen and examined. 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 No acute events overnight. More short of air today CXR with possible worsening RLL infiltrate Quite weak. CVP ~ 9 Cardiac exam wnl Will plan for cath tomorrow. CARMELO POSADAS APRN Dec 03, 2016 10:00 FARIDA ALDRICH MD Dec 03, 2016 14:55
--- NOTE | 2016-12-03 10:36 | PDOC ---
PROGRESS NOTES Chief Complaint Chief Complaint Cardiac arrest ASSESSMENT AND PLAN; 1. Cardiac arrest: pre-admit. cardiology service following. cath planned tomorrow 2. Respir failure: poss 2/2 massive PE. extubated 11/27. no ongoing issues 3. DVT: B LE. IVC filter placed 11/29. back on (low dose) heparin. life- long anti-coag will be necessary for catastrophic PE; plan on thrombin inhibitor 4. Anemia: acute blood loss - suspect soft tissue bleed +/- ischemic gut. very slowly drifting. transfuse PRBC x1. iron studies c/w severe inflammation. low dose PO iron when recovered 5. ?ischemic bowel: currently asymptomatic; surgery following. NGT removed. start PO as per surgery/GI 7. CHF: systolic (EF 35-40%). new, prob 2/2 cardiac arrest. cardiology following 8. CKD: creat stable. monitor 9. Transaminitis: suspect 2/2 cardiogenic shock. resolved. underlying fatty liver 10. DM2: poorly controlled at this time. add levemir. ISS 11. HLD: on statin 12. Leukocytosis: reactive. monitor 13. Bacteremia: 09/10 bottles Peptostreptococcus sp. on Zosyn. ID following. 14. ?gout: new "hot" ankle. check uric acid 15. prophylaxis: PPI History of Present Illness History of Present Illness Vitals Vitals Vital Signs Date Time Temp Pulse Resp B/P Pulse Ox O2 Delivery O2 Flow Rate FiO2 12/03/16 10:00 97 20 144/52 Nasal Cannula 3.0 12/03/16 09:00 100 12/03/16 08:15 98.6 98.6 Physical Exam General: Alert, Oriented X3, No acute distress Heart: Regular rate Lungs: Clear Abdomen: Soft Extremities: Other (1+ edema RLE; medial R ankle warm, no erythema) Skin: No rashes Labs LABS Laboratory Tests Test 12/02/16 12:29 12/02/16 15:50 12/02/16 15:53 12/02/16 23:58 Glucose (Fingerstick) 192mg/dL (70-99) 213mg/dL (70-99) 195mg/dL (70-99) Heparin Anti-Xa Act, Unfractionated 0.40IU/mL (0.30-0.70) Test 12/03/16 05:15 12/03/16 08:34 White Blood Count 15.0x10^3/uL (4.0-11.0) Red Blood Count 2.79x10^6/uL (4.30-5.70) Hemoglobin 8.3g/dL (13.0-17.5) Hematocrit 24.8% (39.0-53.0) Mean Corpuscular Volume 89fL (79-100) Mean Corpuscular Hemoglobin 30pg (25-35) Mean Corpuscular Hemoglobin Concent 33g/dL (31-37) Red Cell Distribution Width 15.4% (11.5-14.5) Platelet Count 175x10^3/uL (140-400) Heparin Anti-Xa Act, Unfractionated 0.30IU/mL (0.30-0.70) Sodium Level 144mmol/L (136-145) Potassium Level 4.1mmol/L (3.5-5.1) Chloride Level 108mmol/L (98-107) Carbon Dioxide Level 27mmol/L (21-32) Anion Gap 9 (6-14) Blood Urea Nitrogen 40mg/dL (8-26) Creatinine 1.7mg/dL (0.7-1.3) Estimated GFR (Cockcroft-Gault) 39.9 Glucose Level 196mg/dL (70-99) Calcium Level 8.7mg/dL (8.5-10.1) Phosphorus Level 3.8mg/dL (2.6-4.7) Magnesium Level 1.9mg/dL (1.8-2.4) Creatine Kinase 82U/L (39-308) Albumin 2.7g/dL (3.4-5.0) Glucose (Fingerstick) 183mg/dL (70-99) Review of Systems Review of Systems walked with PT/OT. hesitant, small steps. mild confusion. denies pain DAHLIA PETERSON MD Dec 03, 2016 10:36
[2016-12-03] MEDS: ANTI-COAG MONITOR BY PHARMACY. MC PRN (10:43)
--- NOTE | 2016-12-03 11:29 | PDOC ---
Renal-Progress Notes Subjective Notes Notes FEELING BETTER History of Present Illness Hx of present illness IMPROVED Vitals Vitals Vital Signs Date Time Temp Pulse Resp B/P Pulse Ox O2 Delivery O2 Flow Rate FiO2 12/03/16 11:00 100 18 150/52 98 Nasal Cannula 3.0 12/03/16 08:15 98.6 98.6 Weight Weight [ ] I.O. Intake and Output Intake and Output 12/03/16 07:00 Intake Total 2496 ml Output Total 3820 ml Balance -1324 ml Intake Oral 0 ml IV Total 2486 ml Blood Product IV Normal Saline Flush 10 ml Output Urine Total 3820 ml Labs Labs Laboratory Tests Test 12/02/16 12:29 12/02/16 15:50 12/02/16 15:53 12/02/16 23:58 Glucose (Fingerstick) 192mg/dL (70-99) 213mg/dL (70-99) 195mg/dL (70-99) Heparin Anti-Xa Act, Unfractionated 0.40IU/mL (0.30-0.70) Test 12/03/16 05:15 12/03/16 08:34 White Blood Count 15.0x10^3/uL (4.0-11.0) Red Blood Count 2.79x10^6/uL (4.30-5.70) Hemoglobin 8.3g/dL (13.0-17.5) Hematocrit 24.8% (39.0-53.0) Mean Corpuscular Volume 89fL (79-100) Mean Corpuscular Hemoglobin 30pg (25-35) Mean Corpuscular Hemoglobin Concent 33g/dL (31-37) Red Cell Distribution Width 15.4% (11.5-14.5) Platelet Count 175x10^3/uL (140-400) Heparin Anti-Xa Act, Unfractionated 0.30IU/mL (0.30-0.70) Sodium Level 144mmol/L (136-145) Potassium Level 4.1mmol/L (3.5-5.1) Chloride Level 108mmol/L (98-107) Carbon Dioxide Level 27mmol/L (21-32) Anion Gap 9 (6-14) Blood Urea Nitrogen 40mg/dL (8-26) Creatinine 1.7mg/dL (0.7-1.3) Estimated GFR (Cockcroft-Gault) 39.9 Glucose Level 196mg/dL (70-99) Calcium Level 8.7mg/dL (8.5-10.1) Phosphorus Level 3.8mg/dL (2.6-4.7) Magnesium Level 1.9mg/dL (1.8-2.4) Creatine Kinase 82U/L (39-308) Albumin 2.7g/dL (3.4-5.0) Glucose (Fingerstick) 183mg/dL (70-99) Micro Micro Microbiology 11/28/16 Blood Culture - Final, Complete NO GROWTH AFTER 5 DAYS 11/24/16 Stool Culture - Final, Complete 11/24/16 Stool Culture Result 1 (ROSIE) - Final, Complete 11/24/16 Campylobacter Antigen Assay - Final, Complete 11/24/16 Campylobactor Result 1 - Final, Complete 11/24/16 Shiga Toxin Test - Final, Complete 11/25/16 Urine Culture - Final, Complete 11/25/16 Urine Culture Result 1 (ROSIE) - Final, Complete Review of Systems Constitutional: yes: alert, oriented, weakness Ears/Nose/Throat: Yes: no symptom reported Eyes: Yes: no symptom reported Pulmonary: Yes dyspnea Cardiovascular: Yes no symptom reported Gastrointestional: Yes: no symptom reported Musculoskeletal: Yes: muscle stiffness Skin: Yes no symptom reported Psychiatric/Neurological: Yes: no symptom reported Physical Exam General Appearance: no apparent distress Skin: warm Respiratory: decreased breath sounds Heart: S1S2 Abdomen: soft, bowel sounds present Neurology: alert, oriented, follow commands, confused (intermittent ), other Assessment Assessment IMP HAMILTON-BETTER WITH CR 2.6 TO 1.7 RESP FAILURE PE ANEMIA PLAN CONT TPN DAILY IV LASIX FOR NOW LABS IN AM WILL FOLLOW UPDATED AT BEDSIDE LEFTY MONTERO MD Dec 03, 2016 11:29
--- NOTE | 2016-12-03 11:43 | PDOC ---
Subjective: Subjective: Doing okay. Chest pain w/ coughing. No abd pain. Not sure about stools. Objective: Objective: No GI concerns today per RN. STONE LAYER to re-eval swallow tomorrow. No stools today. Vital Signs: Vital Signs Date Time Temp Pulse Resp B/P Pulse Ox O2 Delivery O2 Flow Rate FiO2 12/03/16 11:34 98 Nasal Cannula 4.0 12/03/16 11:00 100 18 150/52 12/03/16 08:15 98.6 98.6 Labs: Laboratory Tests Test 12/02/16 12:29 12/02/16 15:53 12/02/16 23:58 12/03/16 08:34 Glucose (Fingerstick) 192mg/dL (70-99) 213mg/dL (70-99) 195mg/dL (70-99) 183mg/dL (70-99) PE: GEN: NAD LUNGS: nasal cannula HEART: S1S2 ABD: NABS, S/ND/NT NEURO/PSYCH: A & O 3 A/P: Anemia -Hgb better today 8.3 -significant ecchymosis, on Heparin Cardiac arrest, resp failure, HAMILTON, dysphagia -on TPN, IV PPI -card cath tomorrow -- Continue same per GI. Follow STONE LAYER evals. YAMEL CUEVAS Dec 03, 2016 11:43
--- NOTE | 2016-12-03 12:07 | RAD ---
Portable chest, 12/03/2016: History: Dyspnea Comparison is made to a study from 11/30/2016. The NG tube and right jugular dialysis type catheter have been removed. A right jugular central venous catheter remains in place extending into the inferior aspect of the superior vena cava. The heart is at the upper limits of normal in size. The left base has largely cleared. There are moderate pleural and parenchymal opacities in the right chest which appear to have worsened slightly, particularly in the medial aspect of the right lower chest and lateral aspect of the right upper lobe. There is no evidence of pneumothorax. IMPRESSION: Slight interval worsening of the right chest pleural-parenchymal opacities compatible with a combination of pleural fluid and underlying atelectasis/infiltrate.
--- NOTE | 2016-12-03 14:11 | PDOC ---
SURGICAL PROGRESS NOTE Subjective Pt without new c/o, denies abd pain, not able to eat yet secondary to swallow Vital Signs Vital Signs Date Time Temp Pulse Resp B/P Pulse Ox O2 Delivery O2 Flow Rate FiO2 12/03/16 12:10 Nasal Cannula 3.0 12/03/16 11:43 98 152/42 12/03/16 11:34 98 12/03/16 11:00 18 12/03/16 08:15 98.6 98.6 I&O Intake and Output 12/03/16 07:00 Intake Total 2496 ml Output Total 3820 ml Balance -1324 ml Intake Oral 0 ml IV Total 2486 ml Blood Product IV Normal Saline Flush 10 ml Output Urine Total 3820 ml General: No acute distress Abdomen: Soft, No tenderness Labs Laboratory Tests Test 12/01/16 17:41 12/01/16 20:00 12/01/16 23:57 12/02/16 05:50 Glucose (Fingerstick) 202mg/dL (70-99) 227mg/dL (70-99) Heparin Anti-Xa Act, Unfractionated 0.35IU/mL (0.30-0.70) 0.38IU/mL (0.30-0.70) White Blood Count 14.4x10^3/uL (4.0-11.0) Red Blood Count 2.40x10^6/uL (4.30-5.70) Hemoglobin 7.1g/dL (13.0-17.5) Hematocrit 21.2% (39.0-53.0) Mean Corpuscular Volume 88fL (79-100) Mean Corpuscular Hemoglobin 30pg (25-35) Mean Corpuscular Hemoglobin Concent 34g/dL (31-37) Red Cell Distribution Width 15.5% (11.5-14.5) Platelet Count 150x10^3/uL (140-400) Neutrophils (%) (Auto) 74% (31-73) Lymphocytes (%) (Auto) 8% (24-48) Monocytes (%) (Auto) 11% (0-9) Eosinophils (%) (Auto) 7% (0-3) Basophils (%) (Auto) 0% (0-3) Neutrophils # (Auto) 10.6x10^3uL (1.8-7.7) Lymphocytes # (Auto) 1.2x10^3/uL (1.0-4.8) Monocytes # (Auto) 1.6x10^3/uL (0.0-1.1) Eosinophils # (Auto) 1.0x10^3/uL (0.0-0.7) Basophils # (Auto) 0.0x10^3/uL (0.0-0.2) Sodium Level 145mmol/L (136-145) Potassium Level 3.9mmol/L (3.5-5.1) Chloride Level 110mmol/L (98-107) Carbon Dioxide Level 24mmol/L (21-32) Anion Gap 11 (6-14) Blood Urea Nitrogen 38mg/dL (8-26) Creatinine 1.7mg/dL (0.7-1.3) Estimated GFR (Cockcroft-Gault) 39.9 Glucose Level 202mg/dL (70-99) Calcium Level 8.6mg/dL (8.5-10.1) Phosphorus Level 3.5mg/dL (2.6-4.7) Magnesium Level 1.9mg/dL (1.8-2.4) Creatine Kinase 113U/L (39-308) Albumin 2.7g/dL (3.4-5.0) Triglycerides Level 188mg/dL (0-150) Test 12/02/16 05:52 12/02/16 12:29 12/02/16 15:50 12/02/16 15:53 Glucose (Fingerstick) 191mg/dL (70-99) 192mg/dL (70-99) 213mg/dL (70-99) Heparin Anti-Xa Act, Unfractionated 0.40IU/mL (0.30-0.70) Test 12/02/16 23:58 12/03/16 05:15 12/03/16 08:34 Glucose (Fingerstick) 195mg/dL (70-99) 183mg/dL (70-99) White Blood Count 15.0x10^3/uL (4.0-11.0) Red Blood Count 2.79x10^6/uL (4.30-5.70) Hemoglobin 8.3g/dL (13.0-17.5) Hematocrit 24.8% (39.0-53.0) Mean Corpuscular Volume 89fL (79-100) Mean Corpuscular Hemoglobin 30pg (25-35) Mean Corpuscular Hemoglobin Concent 33g/dL (31-37) Red Cell Distribution Width 15.4% (11.5-14.5) Platelet Count 175x10^3/uL (140-400) Heparin Anti-Xa Act, Unfractionated 0.30IU/mL (0.30-0.70) Sodium Level 144mmol/L (136-145) Potassium Level 4.1mmol/L (3.5-5.1) Chloride Level 108mmol/L (98-107) Carbon Dioxide Level 27mmol/L (21-32) Anion Gap 9 (6-14) Blood Urea Nitrogen 40mg/dL (8-26) Creatinine 1.7mg/dL (0.7-1.3) Estimated GFR (Cockcroft-Gault) 39.9 Glucose Level 196mg/dL (70-99) Calcium Level 8.7mg/dL (8.5-10.1) Phosphorus Level 3.8mg/dL (2.6-4.7) Magnesium Level 1.9mg/dL (1.8-2.4) Creatine Kinase 82U/L (39-308) Albumin 2.7g/dL (3.4-5.0) Laboratory Tests Test 12/02/16 15:50 12/02/16 15:53 12/02/16 23:58 12/03/16 05:15 Heparin Anti-Xa Act, Unfractionated 0.40IU/mL (0.30-0.70) 0.30IU/mL (0.30-0.70) Glucose (Fingerstick) 213mg/dL (70-99) 195mg/dL (70-99) White Blood Count 15.0x10^3/uL (4.0-11.0) Red Blood Count 2.79x10^6/uL (4.30-5.70) Hemoglobin 8.3g/dL (13.0-17.5) Hematocrit 24.8% (39.0-53.0) Mean Corpuscular Volume 89fL (79-100) Mean Corpuscular Hemoglobin 30pg (25-35) Mean Corpuscular Hemoglobin Concent 33g/dL (31-37) Red Cell Distribution Width 15.4% (11.5-14.5) Platelet Count 175x10^3/uL (140-400) Sodium Level 144mmol/L (136-145) Potassium Level 4.1mmol/L (3.5-5.1) Chloride Level 108mmol/L (98-107) Carbon Dioxide Level 27mmol/L (21-32) Anion Gap 9 (6-14) Blood Urea Nitrogen 40mg/dL (8-26) Creatinine 1.7mg/dL (0.7-1.3) Estimated GFR (Cockcroft-Gault) 39.9 Glucose Level 196mg/dL (70-99) Calcium Level 8.7mg/dL (8.5-10.1) Phosphorus Level 3.8mg/dL (2.6-4.7) Magnesium Level 1.9mg/dL (1.8-2.4) Creatine Kinase 82U/L (39-308) Albumin 2.7g/dL (3.4-5.0) Test 12/03/16 08:34 Glucose (Fingerstick) 183mg/dL (70-99) Problem List Problems Medical Problems: (1) Cardiac arrest Status: Acute Assessment/Plan cont supportive care no surgical plans Problems: MALCOLM RAYMOND MD Dec 03, 2016 14:11
[2016-12-03] MEDS: TPN PER PHARMACY MC PRN (15:22)
[2016-12-03] MEDS: ONDANSETRON PF 4 MG/2 ML VIAL. IV PRN (21:17)
[2016-12-03] MEDS: INSULIN DETEMIR 300 UNITS/3 ML INSULN.PEN. SQ SCH (21:28)
[2016-12-03] MEDS ORDERED: AMINO ACIDS IV SCH ×10 (22:00)
[2016-12-03] MEDS ORDERED: DEXTROSE 70% IV SCH ×10 (22:00)
[2016-12-03] MEDS ORDERED: TOTAL PARENTERAL NUTRITION IV SCH ×10 (22:00)
[2016-12-03] MEDS ORDERED: [UNRECOGNIZED DRUG - OTHER] IV SCH ×10 (22:00)
[2016-12-04] VITALS (13 sets, daily range): BP systolic 114–163; BP diastolic 45–92
[2016-12-04] MEDS: PIPERACILLIN/TAZOBACTAM 3.375 GM in IV NORMAL SALINE 50ML 50 ML IV SCH ×4 (00:06→18:00)
[2016-12-04] MEDS: INSULIN ASPART 300 UNITS/3 ML INSULN.PEN SQ SCH ×4 (00:13→18:04)
[2016-12-04] MEDS: HEPARIN 25,000UTS/500ML PREMIX 500 ML IV PRN ×2 (00:14→19:23)
[2016-12-04] MEDS: METOPROLOL TARTRATE 5 MG/5 ML VIAL. IVP SCH ×4 (03:40→22:38)
[2016-12-04 05:51] LABS: BASO # 0.1 x10^3/uL (0.0-0.2); BASO % 1 % (0-3); EOS % 5 % (0-3); HEMATOCRIT 23.2 % (39.0-53.0); HEMOGLOBIN 7.8 g/dL (13.0-17.5); LYMPH # 1.4 x10^3/uL (1.0-4.8); LYMPH % 9 % (24-48); MEAN CORPUSCULAR HEMOGLOBIN 30 pg (25-35); MEAN CORPUSCULAR HGB CONC 34 g/dL (31-37); MEAN CORPUSCULAR VOLUME 88 fL (79-100); MONO % 12 % (0-9); NEUT % 73 % (31-73); PLATELET COUNT 252 x10^3/uL (140-400); RED BLOOD COUNT 2.63 x10^6/uL (4.30-5.70); RED CELL DISTRIBUTION WIDTH 15.4 % (11.5-14.5); WHITE BLOOD COUNT 16.1 x10^3/uL (4.0-11.0)
[2016-12-04 06:07] LABS: ALBUMIN 2.6 g/dL (3.4-5.0); CALCIUM 8.9 mg/dL (8.5-10.1); CREATININE 1.9 mg/dL (0.7-1.3); GFR 35.1; POTASSIUM 4.5 mmol/L (3.5-5.1)
[2016-12-04] MEDS ORDERED: FENTANYL PF 100 MCG/2 ML VIAL. IV PRN (06:29)
[2016-12-04] MEDS ORDERED: ONDANSETRON PF 4 MG/2 ML VIAL. IV PRN (06:30)
[2016-12-04] MEDS ORDERED: LIDOCAINE 2% 20 ML VIAL. ONE ×2 (07:02→12:59)
[2016-12-04] MEDS ORDERED: HEPARIN for ARTERIAL LINE 1,500 ML ONE (07:02)
[2016-12-04] MEDS ORDERED: IODIXANOL 320 MG/ML 100 ML VIAL. ONE ×2 (07:02→12:59)
[2016-12-04] MEDS ORDERED: NITROGLYCERIN 200 MCG/2 ML SYRINGE FOR CATH/VASC LAB. ONE ×2 (07:05→07:17)
[2016-12-04] MEDS ORDERED: FENTANYL PF 100 MCG/2 ML VIAL. ONE (07:05)
[2016-12-04] MEDS ORDERED: HEPARIN for IV BOLUS 10,000 UNIT/10 ML VIAL. ONE (07:05)
[2016-12-04] MEDS ORDERED: MIDAZOLAM HCL/PF 2 MG/2 ML VIAL. ONE (07:05)
[2016-12-04] MEDS ORDERED: VERAPAMIL 5 MG/2 ML VIAL. ONE ×3 (07:05→07:30)
[2016-12-04] MEDS ORDERED: MIDAZOLAM HCL/PF 2 MG/2 ML VIAL. IV ONE (07:45)
[2016-12-04] MEDS ORDERED: CONTRAST GIVEN MC PRN (07:45)
[2016-12-04] MEDS ORDERED: NITROGLYCERIN 200 MCG/2 ML SYRINGE FOR CATH/VASC LAB. IART ONE (07:45)
[2016-12-04] MEDS ORDERED: VERAPAMIL 5 MG/2 ML VIAL. IART ONE (07:45)
[2016-12-04] MEDS ORDERED: IODIXANOL 320 MG/ML 100 ML VIAL. IART ONE (07:45)
[2016-12-04] MEDS ORDERED: LIDOCAINE 2% 20 ML VIAL. IJ ONE (07:45)
[2016-12-04] MEDS ORDERED: FENTANYL PF 100 MCG/2 ML VIAL. IV ONE (07:45)
[2016-12-04] MEDS: FUROSEMIDE 40 MG/4 ML VIAL. IVP SCH (07:47)
--- NOTE | 2016-12-04 07:51 | CARD ---
APPROVED REPORT Procedure(s) performed: Left Heart Catheterization 2.8 mins Fluoro 55 mL Visipaque [id number] [id number] HISTORY : The patient is a 71 year-old male with a history of . INDICATION The indication(s) include : non-STEMI , cardiac arrest, dyspnea. PROCEDURE NARRATIVE The patient was brought electively to the cardiac catheterization lab. A timeout was performed confi rming the patient's name, date of , procedure, and site of procedure. All necessary personnel w ere wearing the appropriate protective equipment and radiation monitor devices. After explaining the risks and benefits of the procedure and alternatives, informed consent was obtained. (See nursing no luis for medications administered). The right wrist was sterilely prepped and draped in the usual fas hion. The right wrist was infiltrated with 1 mL of 2% lidocaine for subcutaneous anesthesia. A 6 Fr ench Terumo glide sheath was inserted into the right radial artery without difficulty. Right and lef t coronary angiography was performed using a 6Fr TIG 4.0 catheter. Left ventricular end diastolic pr essure was obtained with a pigtail catheter and pullback was performed. All catheter exchanges and a dvancements were performed over a guidewire. At case completion the right radial sheath was removed and a Terumo radial band was applied with 13 ml of air. The patient tolerated the procedure well and there were no immediate complications. HEMODYNAMICS: LVEDP 16 mm Hg No gradient on LV to aortic pullback. LEFT VENTRICULOGRAM: Deferred due to renal insufficiency. CORONARY ANGIOGRAPHY: LM is a large caliber vessel with normal angiographic appearance. LAD is a large caliber vessel with a proximal to mid 40% stenosis that is calcified. There are several small caliber diagonals that supply the lateral wall. LCx is a moderate caliber non-dominant vessel with normal angiographic appearance. OM1 is a moderate caliber vessel with normal angiographic appearance. RCA is a large caliber dominant vessel with normal angiographic appearance. RPDA and RPL are moderate caliber vessels with normal angiographic appearance. Conclusion 1. Mild to moderate non-obstructive coronary disease. 2. No clear culprit lesion for presentation of cardiac arrest, likely related to known diagnosis of P .E. 3. Normal LVEDP. Recommendations Aggressive Medical Therapy
[2016-12-04] MEDS: IPRATROPIUM BROMIDE 0.5 MG/2.5 ML NEBU. NEB SCH ×4 (07:55→20:04)
[2016-12-04] MEDS: BUDESONIDE 0.5 MG/2 ML NEBU. NEB SCH ×2 (07:55→20:04)
[2016-12-04] MEDS: ASPIRIN 300 MG SUPP.RECT PR SCH (09:00)
--- NOTE | 2016-12-04 09:14 | PDOC ---
PULMONARY PROGRESS NOTES Subjective pt working with PT no resp complaints Vitals Vital Signs Date Time Temp Pulse Resp B/P Pulse Ox O2 Delivery O2 Flow Rate FiO2 12/04/16 08:47 Nasal Cannula 3.0 12/04/16 07:54 99 12/04/16 07:44 16 12/04/16 07:43 95 12/04/16 07:00 98.7 159/92 98.7 Comments ros as mentioned as above. discussed w rn, other sys otherwise neg General: Alert, No acute distress HEENT: Other (nc at, perrl, nose clear, shallow oropharynx. neck, + jvd, no thyromegaly, no lap) Lungs: Clear Cardiovascular: S1, S2 Abdomen: Soft, Non-tender, Other (no mass) Neuro Exam: Alert Extremities: Other (2=edema) Skin: Warm Labs Laboratory Tests Test 12/02/16 12:29 12/02/16 15:50 12/02/16 15:53 12/02/16 23:58 Glucose (Fingerstick) 192mg/dL (70-99) 213mg/dL (70-99) 195mg/dL (70-99) Heparin Anti-Xa Act, Unfractionated 0.40IU/mL (0.30-0.70) Test 12/03/16 05:15 12/03/16 08:34 12/03/16 13:04 12/03/16 17:40 White Blood Count 15.0x10^3/uL (4.0-11.0) Red Blood Count 2.79x10^6/uL (4.30-5.70) Hemoglobin 8.3g/dL (13.0-17.5) Hematocrit 24.8% (39.0-53.0) Mean Corpuscular Volume 89fL (79-100) Mean Corpuscular Hemoglobin 30pg (25-35) Mean Corpuscular Hemoglobin Concent 33g/dL (31-37) Red Cell Distribution Width 15.4% (11.5-14.5) Platelet Count 175x10^3/uL (140-400) Heparin Anti-Xa Act, Unfractionated 0.30IU/mL (0.30-0.70) Sodium Level 144mmol/L (136-145) Potassium Level 4.1mmol/L (3.5-5.1) Chloride Level 108mmol/L (98-107) Carbon Dioxide Level 27mmol/L (21-32) Anion Gap 9 (6-14) Blood Urea Nitrogen 40mg/dL (8-26) Creatinine 1.7mg/dL (0.7-1.3) Estimated GFR (Cockcroft-Gault) 39.9 Glucose Level 196mg/dL (70-99) Uric Acid 3.0mg/dL (3.5-7.2) Calcium Level 8.7mg/dL (8.5-10.1) Phosphorus Level 3.8mg/dL (2.6-4.7) Magnesium Level 1.9mg/dL (1.8-2.4) Creatine Kinase 82U/L (39-308) Albumin 2.7g/dL (3.4-5.0) Glucose (Fingerstick) 183mg/dL (70-99) 237mg/dL (70-99) 247mg/dL (70-99) Test 12/03/16 21:22 12/04/16 00:07 12/04/16 05:35 12/04/16 06:14 Glucose (Fingerstick) 255mg/dL (70-99) 246mg/dL (70-99) 274mg/dL (70-99) White Blood Count 16.1x10^3/uL (4.0-11.0) Red Blood Count 2.63x10^6/uL (4.30-5.70) Hemoglobin 7.8g/dL (13.0-17.5) Hematocrit 23.2% (39.0-53.0) Mean Corpuscular Volume 88fL (79-100) Mean Corpuscular Hemoglobin 30pg (25-35) Mean Corpuscular Hemoglobin Concent 34g/dL (31-37) Red Cell Distribution Width 15.4% (11.5-14.5) Platelet Count 252x10^3/uL (140-400) Neutrophils (%) (Auto) 73% (31-73) Lymphocytes (%) (Auto) 9% (24-48) Monocytes (%) (Auto) 12% (0-9) Eosinophils (%) (Auto) 5% (0-3) Basophils (%) (Auto) 1% (0-3) Neutrophils # (Auto) 11.8x10^3uL (1.8-7.7) Lymphocytes # (Auto) 1.4x10^3/uL (1.0-4.8) Monocytes # (Auto) 1.9x10^3/uL (0.0-1.1) Eosinophils # (Auto) 0.9x10^3/uL (0.0-0.7) Basophils # (Auto) 0.1x10^3/uL (0.0-0.2) Sodium Level 142mmol/L (136-145) Potassium Level 4.5mmol/L (3.5-5.1) Chloride Level 106mmol/L (98-107) Carbon Dioxide Level 25mmol/L (21-32) Anion Gap 11 (6-14) Blood Urea Nitrogen 44mg/dL (8-26) Creatinine 1.9mg/dL (0.7-1.3) Estimated GFR (Cockcroft-Gault) 35.1 Glucose Level 286mg/dL (70-99) Calcium Level 8.9mg/dL (8.5-10.1) Phosphorus Level 4.0mg/dL (2.6-4.7) Albumin 2.6g/dL (3.4-5.0) Test 12/04/16 07:32 Activated Clotting Time 162sec (92-181) Laboratory Tests Test 12/03/16 13:04 12/03/16 17:40 12/03/16 21:22 12/04/16 00:07 Glucose (Fingerstick) 237mg/dL (70-99) 247mg/dL (70-99) 255mg/dL (70-99) 246mg/dL (70-99) Test 12/04/16 05:35 12/04/16 06:14 12/04/16 07:32 White Blood Count 16.1x10^3/uL (4.0-11.0) Red Blood Count 2.63x10^6/uL (4.30-5.70) Hemoglobin 7.8g/dL (13.0-17.5) Hematocrit 23.2% (39.0-53.0) Mean Corpuscular Volume 88fL (79-100) Mean Corpuscular Hemoglobin 30pg (25-35) Mean Corpuscular Hemoglobin Concent 34g/dL (31-37) Red Cell Distribution Width 15.4% (11.5-14.5) Platelet Count 252x10^3/uL (140-400) Neutrophils (%) (Auto) 73% (31-73) Lymphocytes (%) (Auto) 9% (24-48) Monocytes (%) (Auto) 12% (0-9) Eosinophils (%) (Auto) 5% (0-3) Basophils (%) (Auto) 1% (0-3) Neutrophils # (Auto) 11.8x10^3uL (1.8-7.7) Lymphocytes # (Auto) 1.4x10^3/uL (1.0-4.8) Monocytes # (Auto) 1.9x10^3/uL (0.0-1.1) Eosinophils # (Auto) 0.9x10^3/uL (0.0-0.7) Basophils # (Auto) 0.1x10^3/uL (0.0-0.2) Sodium Level 142mmol/L (136-145) Potassium Level 4.5mmol/L (3.5-5.1) Chloride Level 106mmol/L (98-107) Carbon Dioxide Level 25mmol/L (21-32) Anion Gap 11 (6-14) Blood Urea Nitrogen 44mg/dL (8-26) Creatinine 1.9mg/dL (0.7-1.3) Estimated GFR (Cockcroft-Gault) 35.1 Glucose Level 286mg/dL (70-99) Calcium Level 8.9mg/dL (8.5-10.1) Phosphorus Level 4.0mg/dL (2.6-4.7) Albumin 2.6g/dL (3.4-5.0) Glucose (Fingerstick) 274mg/dL (70-99) Activated Clotting Time 162sec (92-181) Comments cxr reviewed, increased vm, ll infilt atelectasis effusion R>L Impression . 1. Acute respiratory failure secondary to [id number] cardiopulmonary arrest. 2. Hyperlipidemia. 3. Diabetes. 4. Positive venous Doppler/ high prob V/Q, on Heparin/ popliteal nonocclusive thrombus. 5. Metabolic acidosis sec to code, improved. 6. PE 7. Ischemia CM 35-40%, cath no significant lesion 8. Acute kidney injury 9. anemia, 10. wheezing, acute bronchospasm, resolved 11. abnl cxr, suspect chf Plan . pt improving cath report noted needs rehab resp status is compensated 1. off Bipap , use prn 2. s/p hypothermic protocol 3. Cardiology, follow rec 4. follow nephrology input 5. cath noted 6. Titrate FIO2. 7. cont antibiotics. 8. bronchodilator, ics 9. Protonix 10. heparin gtt, s/p ivc filter 11/29, monitor closely for bleeding, no retro peritoneal bleed, start Coumadin once ready to eat PO. 3 months total AC [facility] GUILLORY MD Dec 04, 2016 09:14
[2016-12-04] MEDS: PANTOPRAZOLE IV PUSH 40 MG VIAL. IVP SCH (10:37)
--- NOTE | 2016-12-04 10:54 | PDOC ---
Infectious Disease Note Subjective Subjective awake, feeling better, on NC, ROS ROS GEN: Denies fevers, chills, sweats HEENT: Denies blurred vision, sore throat CV: Denies chest pain RESP: Denies shortness of air, cough GI: Denies n/v/d NEURO: Denies confusion, dizziness MSK: Denies weakness, joint pain/swelling Vital Sign Vital Signs Vital Signs Date Time Temp Pulse Resp B/P Pulse Ox O2 Delivery O2 Flow Rate FiO2 12/04/16 10:36 90 149/62 12/04/16 08:47 Nasal Cannula 3.0 12/04/16 07:54 99 12/04/16 07:44 16 12/04/16 07:00 98.7 98.7 Physical Exam PHYSICAL EXAM GENERAL: NAD, Alert HEENT: PERRL, OC/OP NECK: Supple, no JVD, no LN LUNGS: Clear HEART: S1S2, no gallop, no murmur ABD: Soft, NT, no organomegaly, no rebound EXT: No edema, no cyanosis 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: Alert, oriented x 3, no focal neurologic deficit SKIN: No rash IV: ok Labs Lab Laboratory Tests Test 12/03/16 13:04 12/03/16 17:40 12/03/16 21:22 12/04/16 00:07 Glucose (Fingerstick) 237mg/dL (70-99) 247mg/dL (70-99) 255mg/dL (70-99) 246mg/dL (70-99) Test 12/04/16 05:35 12/04/16 06:14 12/04/16 07:32 White Blood Count 16.1x10^3/uL (4.0-11.0) Red Blood Count 2.63x10^6/uL (4.30-5.70) Hemoglobin 7.8g/dL (13.0-17.5) Hematocrit 23.2% (39.0-53.0) Mean Corpuscular Volume 88fL (79-100) Mean Corpuscular Hemoglobin 30pg (25-35) Mean Corpuscular Hemoglobin Concent 34g/dL (31-37) Red Cell Distribution Width 15.4% (11.5-14.5) Platelet Count 252x10^3/uL (140-400) Neutrophils (%) (Auto) 73% (31-73) Lymphocytes (%) (Auto) 9% (24-48) Monocytes (%) (Auto) 12% (0-9) Eosinophils (%) (Auto) 5% (0-3) Basophils (%) (Auto) 1% (0-3) Neutrophils # (Auto) 11.8x10^3uL (1.8-7.7) Lymphocytes # (Auto) 1.4x10^3/uL (1.0-4.8) Monocytes # (Auto) 1.9x10^3/uL (0.0-1.1) Eosinophils # (Auto) 0.9x10^3/uL (0.0-0.7) Basophils # (Auto) 0.1x10^3/uL (0.0-0.2) Sodium Level 142mmol/L (136-145) Potassium Level 4.5mmol/L (3.5-5.1) Chloride Level 106mmol/L (98-107) Carbon Dioxide Level 25mmol/L (21-32) Anion Gap 11 (6-14) Blood Urea Nitrogen 44mg/dL (8-26) Creatinine 1.9mg/dL (0.7-1.3) Estimated GFR (Cockcroft-Gault) 35.1 Glucose Level 286mg/dL (70-99) Calcium Level 8.9mg/dL (8.5-10.1) Phosphorus Level 4.0mg/dL (2.6-4.7) Magnesium Level 2.1mg/dL (1.8-2.4) Albumin 2.6g/dL (3.4-5.0) Glucose (Fingerstick) 274mg/dL (70-99) Activated Clotting Time 162sec (92-181) Micro BC 1/ Peptostreptococcus Objective Assessment S/P VT/VF Cardiac arrest, on hypothermia protocol DVT suspected PE Suspected ischemic bowel Lactic acidosis Leukocytosis likely reactive BC Peptostreptococcus Plan Plan of Care Zosyn change to po when able to swallow Repeat BC NGTD Monitor temp Supportive care d/w DANI Vera MD Dec 04, 2016 10:54
--- NOTE | 2016-12-04 11:33 | PDOC ---
PROGRESS NOTES Chief Complaint Chief Complaint Cardiac arrest ASSESSMENT AND PLAN; 1. Cardiac arrest: pre-admit. cardiology service following. cath done today : "clean". heparin IV post procedure 2. Respir failure: poss 2/2 massive PE. extubated 11/27. no ongoing issues 3. DVT/PE: B LE. IVC filter placed 11/29. back on (low dose) heparin. life- long anti-coag will be necessary for catastrophic PE; plan on thrombin inhibitor starting tomorrow 4. Anemia: acute blood loss - suspect soft tissue bleed +/- ischemic gut +/- HAMILTON and inflammation. very slowly drifting. transfuse PRBC x1. iron studies c/w severe inflammation. low dose PO iron when recovered 5. ?ischemic bowel: currently asymptomatic; NGT removed. appreciate Dr Fuller 's input; signing off. NPO 2/2 dysphagia 6. Dysphagia: ongoing by bedside swallow study. cont NPO, TPN for now. GI following 7. CHF: systolic - EF 35-40% post arrest. cont daily lasix 8. CKD: creat stable. monitor 9. DM2: remains high . increase levemir 12->20 10. Leukocytosis: reactive. monitor 11. Bacteremia: / bottles Peptostreptococcus sp. on Zosyn (day 10). ID following. 12. HLD: on statin 13 Transaminitis: suspect 2/2 cardiogenic shock. resolved. underlying fatty liver 14. ?gout: new "hot" ankle. sx resolving spontaneously. uric acid WNL 15. prophylaxis: PPI 16. Dispo: transfer to [facility]. History of Present Illness History of Present Illness Vitals Vitals Vital Signs Date Time Temp Pulse Resp B/P Pulse Ox O2 Delivery O2 Flow Rate FiO2 12/04/16 10:54 99 Nasal Cannula 3.0 12/04/16 10:36 90 149/62 12/04/16 07:44 16 12/04/16 07:00 98.7 98.7 Physical Exam General: No acute distress Heart: Regular rate Lungs: Clear Abdomen: Soft, No tenderness Extremities: Other (1+ edema RLE; ) Skin: No rashes Labs LABS Laboratory Tests Test 12/03/16 13:04 12/03/16 17:40 12/03/16 21:22 12/04/16 00:07 Glucose (Fingerstick) 237mg/dL (70-99) 247mg/dL (70-99) 255mg/dL (70-99) 246mg/dL (70-99) Test 12/04/16 05:35 12/04/16 06:14 12/04/16 07:32 White Blood Count 16.1x10^3/uL (4.0-11.0) Red Blood Count 2.63x10^6/uL (4.30-5.70) Hemoglobin 7.8g/dL (13.0-17.5) Hematocrit 23.2% (39.0-53.0) Mean Corpuscular Volume 88fL (79-100) Mean Corpuscular Hemoglobin 30pg (25-35) Mean Corpuscular Hemoglobin Concent 34g/dL (31-37) Red Cell Distribution Width 15.4% (11.5-14.5) Platelet Count 252x10^3/uL (140-400) Neutrophils (%) (Auto) 73% (31-73) Lymphocytes (%) (Auto) 9% (24-48) Monocytes (%) (Auto) 12% (0-9) Eosinophils (%) (Auto) 5% (0-3) Basophils (%) (Auto) 1% (0-3) Neutrophils # (Auto) 11.8x10^3uL (1.8-7.7) Lymphocytes # (Auto) 1.4x10^3/uL (1.0-4.8) Monocytes # (Auto) 1.9x10^3/uL (0.0-1.1) Eosinophils # (Auto) 0.9x10^3/uL (0.0-0.7) Basophils # (Auto) 0.1x10^3/uL (0.0-0.2) Sodium Level 142mmol/L (136-145) Potassium Level 4.5mmol/L (3.5-5.1) Chloride Level 106mmol/L (98-107) Carbon Dioxide Level 25mmol/L (21-32) Anion Gap 11 (6-14) Blood Urea Nitrogen 44mg/dL (8-26) Creatinine 1.9mg/dL (0.7-1.3) Estimated GFR (Cockcroft-Gault) 35.1 Glucose Level 286mg/dL (70-99) Calcium Level 8.9mg/dL (8.5-10.1) Phosphorus Level 4.0mg/dL (2.6-4.7) Magnesium Level 2.1mg/dL (1.8-2.4) Albumin 2.6g/dL (3.4-5.0) Glucose (Fingerstick) 274mg/dL (70-99) Activated Clotting Time 162sec (92-181) Review of Systems Review of Systems tired. no focal issues. no CP, SOB. ankle better DAHLIA PETERSON MD Dec 04, 2016 11:33
--- NOTE | 2016-12-04 11:41 | PDOC ---
Renal-Progress Notes Subjective Notes Notes TIRED History of Present Illness Hx of present illness BETTER Vitals Vitals Vital Signs Date Time Temp Pulse Resp B/P Pulse Ox O2 Delivery O2 Flow Rate FiO2 12/04/16 11:30 98.1 95 16 157/57 100 Nasal Cannula 98.1 12/04/16 10:54 3.0 Weight Weight [ ] I.O. Intake and Output Intake and Output 12/04/16 07:00 Intake Total 1297 ml Output Total 5000 ml Balance -3703 ml Intake Oral 0 ml Other 1297 ml Output Urine Total 5000 ml Labs Labs Laboratory Tests Test 12/03/16 13:04 12/03/16 17:40 12/03/16 21:22 12/04/16 00:07 Glucose (Fingerstick) 237mg/dL (70-99) 247mg/dL (70-99) 255mg/dL (70-99) 246mg/dL (70-99) Test 12/04/16 05:35 12/04/16 06:14 12/04/16 07:32 White Blood Count 16.1x10^3/uL (4.0-11.0) Red Blood Count 2.63x10^6/uL (4.30-5.70) Hemoglobin 7.8g/dL (13.0-17.5) Hematocrit 23.2% (39.0-53.0) Mean Corpuscular Volume 88fL (79-100) Mean Corpuscular Hemoglobin 30pg (25-35) Mean Corpuscular Hemoglobin Concent 34g/dL (31-37) Red Cell Distribution Width 15.4% (11.5-14.5) Platelet Count 252x10^3/uL (140-400) Neutrophils (%) (Auto) 73% (31-73) Lymphocytes (%) (Auto) 9% (24-48) Monocytes (%) (Auto) 12% (0-9) Eosinophils (%) (Auto) 5% (0-3) Basophils (%) (Auto) 1% (0-3) Neutrophils # (Auto) 11.8x10^3uL (1.8-7.7) Lymphocytes # (Auto) 1.4x10^3/uL (1.0-4.8) Monocytes # (Auto) 1.9x10^3/uL (0.0-1.1) Eosinophils # (Auto) 0.9x10^3/uL (0.0-0.7) Basophils # (Auto) 0.1x10^3/uL (0.0-0.2) Sodium Level 142mmol/L (136-145) Potassium Level 4.5mmol/L (3.5-5.1) Chloride Level 106mmol/L (98-107) Carbon Dioxide Level 25mmol/L (21-32) Anion Gap 11 (6-14) Blood Urea Nitrogen 44mg/dL (8-26) Creatinine 1.9mg/dL (0.7-1.3) Estimated GFR (Cockcroft-Gault) 35.1 Glucose Level 286mg/dL (70-99) Calcium Level 8.9mg/dL (8.5-10.1) Phosphorus Level 4.0mg/dL (2.6-4.7) Magnesium Level 2.1mg/dL (1.8-2.4) Albumin 2.6g/dL (3.4-5.0) Glucose (Fingerstick) 274mg/dL (70-99) Activated Clotting Time 162sec (92-181) Micro Micro Microbiology 11/28/16 Blood Culture - Final, Complete NO GROWTH AFTER 5 DAYS 11/24/16 Stool Culture - Final, Complete 11/24/16 Stool Culture Result 1 (ROSIE) - Final, Complete 11/24/16 Campylobacter Antigen Assay - Final, Complete 11/24/16 Campylobactor Result 1 - Final, Complete 11/24/16 Shiga Toxin Test - Final, Complete 11/25/16 Urine Culture - Final, Complete 11/25/16 Urine Culture Result 1 (ROSIE) - Final, Complete Review of Systems Constitutional: yes: alert, oriented, weakness Ears/Nose/Throat: Yes: no symptom reported Eyes: Yes: no symptom reported Pulmonary: Yes dyspnea Cardiovascular: Yes no symptom reported Gastrointestional: Yes: no symptom reported Musculoskeletal: Yes: muscle stiffness Skin: Yes no symptom reported Psychiatric/Neurological: Yes: no symptom reported Physical Exam General Appearance: no apparent distress Skin: warm Respiratory: decreased breath sounds Heart: S1S2 Abdomen: soft, bowel sounds present Neurology: alert, oriented, follow commands, confused (intermittent ), other Assessment Assessment IMP HAMILTON-BETTER WITH CR 2.6 TO 1.7 RESP FAILURE PE ANEMIA DYSPHAGIA PLAN CONT TPN DAILY IV LASIX FOR NOW SWALLOW EVAL LABS IN AM WILL FOLLOW UPDATED AT BEDSIDE LEFTY MONTERO MD Dec 04, 2016 11:41
[2016-12-04] MEDS: ANTI-COAG MONITOR BY PHARMACY. MC PRN (12:18)
[2016-12-04] MEDS: TPN PER PHARMACY MC PRN (12:24)
[2016-12-04 13:54] LABS: % EOS 5 % (0-5); PLT ESTIMATE ADEQUATE (ADEQUATE)
[2016-12-04 13:56] LABS: BURR CELLS OCC
--- NOTE | 2016-12-04 13:56 | PDOC ---
Subjective: Subjective: Doing okay. 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 No GI concerns. Vital Signs: Vital Signs Date Time Temp Pulse Resp B/P Pulse Ox O2 Delivery O2 Flow Rate FiO2 12/04/16 12:25 Nasal Cannula 3.0 12/04/16 11:30 98.1 95 16 157/57 100 98.1 Labs: Laboratory Tests Test 12/03/16 17:40 12/03/16 21:22 12/04/16 00:07 12/04/16 05:35 Glucose (Fingerstick) 247mg/dL 255mg/dL 246mg/dL White Blood Count 16.1x10^3/uL Red Blood Count 2.63x10^6/uL Hemoglobin 7.8g/dL Hematocrit 23.2% Mean Corpuscular Volume 88fL Mean Corpuscular Hemoglobin 30pg Mean Corpuscular Hemoglobin Concent 34g/dL Red Cell Distribution Width 15.4% Platelet Count 252x10^3/uL Neutrophils (%) (Auto) 73% Lymphocytes (%) (Auto) 9% Monocytes (%) (Auto) 12% Eosinophils (%) (Auto) 5% Basophils (%) (Auto) 1% Neutrophils # (Auto) 11.8x10^3uL Lymphocytes # (Auto) 1.4x10^3/uL Monocytes # (Auto) 1.9x10^3/uL Eosinophils # (Auto) 0.9x10^3/uL Basophils # (Auto) 0.1x10^3/uL Platelet Estimate Pending Sodium Level 142mmol/L Potassium Level 4.5mmol/L Chloride Level 106mmol/L Carbon Dioxide Level 25mmol/L Anion Gap 11 Blood Urea Nitrogen 44mg/dL Creatinine 1.9mg/dL Estimated GFR (Cockcroft-Gault) 35.1 Glucose Level 286mg/dL Calcium Level 8.9mg/dL Phosphorus Level 4.0mg/dL Magnesium Level 2.1mg/dL Albumin 2.6g/dL Test 12/04/16 06:14 12/04/16 07:32 12/04/16 11:20 12/04/16 13:40 Glucose (Fingerstick) 274mg/dL 276mg/dL Activated Clotting Time 162sec Heparin Anti-Xa Act, Unfractionated 0.27IU/mL Imaging: Card cath Conclusion 1. Mild to moderate non-obstructive coronary disease. 2. No clear culprit lesion for presentation of cardiac arrest, likely related to known diagnosis of P.E. 3. Normal LVEDP. PE: GEN: NAD LUNGS: nasal cannula HEART: S1S2 ABD: NABS, S/ND/NT NEURO/PSYCH: A & O 3, a little more perky A/P: Anemia -Hgb stable on Heparin -on PPI IV Cardiac arrest, resp failure, HAMILTON, dysphagia -on TPN, IV PPI -- Continue same per GI. Continues to fail bedside swallow evals, possible video swallow later. YAMEL CUEVAS Dec 04, 2016 13:55
[2016-12-04 13:57] LABS: SCHISTOCYTES OCC
--- NOTE | 2016-12-04 15:52 | PDOC ---
SURGICAL PROGRESS NOTE Subjective Pt resting comfortably after cath Vital Signs Vital Signs Date Time Temp Pulse Resp B/P Pulse Ox O2 Delivery O2 Flow Rate FiO2 12/04/16 12:25 Nasal Cannula 3.0 12/04/16 11:30 98.1 95 16 157/57 100 98.1 I&O Intake and Output 12/04/16 07:00 Intake Total 1297 ml Output Total 5000 ml Balance -3703 ml Intake Oral 0 ml Other 1297 ml Output Urine Total 5000 ml General: No acute distress Abdomen: Soft, No tenderness Extremities: Other (right leg edema (c/w known DVT)) Labs Laboratory Tests Test 12/02/16 15:53 12/02/16 23:58 12/03/16 05:15 12/03/16 08:34 Glucose (Fingerstick) 213mg/dL (70-99) 195mg/dL (70-99) 183mg/dL (70-99) White Blood Count 15.0x10^3/uL (4.0-11.0) Red Blood Count 2.79x10^6/uL (4.30-5.70) Hemoglobin 8.3g/dL (13.0-17.5) Hematocrit 24.8% (39.0-53.0) Mean Corpuscular Volume 89fL (79-100) Mean Corpuscular Hemoglobin 30pg (25-35) Mean Corpuscular Hemoglobin Concent 33g/dL (31-37) Red Cell Distribution Width 15.4% (11.5-14.5) Platelet Count 175x10^3/uL (140-400) Heparin Anti-Xa Act, Unfractionated 0.30IU/mL (0.30-0.70) Sodium Level 144mmol/L (136-145) Potassium Level 4.1mmol/L (3.5-5.1) Chloride Level 108mmol/L (98-107) Carbon Dioxide Level 27mmol/L (21-32) Anion Gap 9 (6-14) Blood Urea Nitrogen 40mg/dL (8-26) Creatinine 1.7mg/dL (0.7-1.3) Estimated GFR (Cockcroft-Gault) 39.9 Glucose Level 196mg/dL (70-99) Uric Acid 3.0mg/dL (3.5-7.2) Calcium Level 8.7mg/dL (8.5-10.1) Phosphorus Level 3.8mg/dL (2.6-4.7) Magnesium Level 1.9mg/dL (1.8-2.4) Creatine Kinase 82U/L (39-308) Albumin 2.7g/dL (3.4-5.0) Test 12/03/16 13:04 12/03/16 17:40 12/03/16 21:22 12/04/16 00:07 Glucose (Fingerstick) 237mg/dL (70-99) 247mg/dL (70-99) 255mg/dL (70-99) 246mg/dL (70-99) Test 12/04/16 05:35 12/04/16 06:14 12/04/16 07:32 12/04/16 11:20 White Blood Count 16.1x10^3/uL (4.0-11.0) Red Blood Count 2.63x10^6/uL (4.30-5.70) Hemoglobin 7.8g/dL (13.0-17.5) Hematocrit 23.2% (39.0-53.0) Mean Corpuscular Volume 88fL (79-100) Mean Corpuscular Hemoglobin 30pg (25-35) Mean Corpuscular Hemoglobin Concent 34g/dL (31-37) Red Cell Distribution Width 15.4% (11.5-14.5) Platelet Count 252x10^3/uL (140-400) Neutrophils (%) (Auto) 73% (31-73) Lymphocytes (%) (Auto) 9% (24-48) Monocytes (%) (Auto) 12% (0-9) Eosinophils (%) (Auto) 5% (0-3) Basophils (%) (Auto) 1% (0-3) Neutrophils # (Auto) 11.8x10^3uL (1.8-7.7) Lymphocytes # (Auto) 1.4x10^3/uL (1.0-4.8) Monocytes # (Auto) 1.9x10^3/uL (0.0-1.1) Eosinophils # (Auto) 0.9x10^3/uL (0.0-0.7) Basophils # (Auto) 0.1x10^3/uL (0.0-0.2) Segmented Neutrophils % 79% (35-66) Band Neutrophils % 3% (0-9) Lymphocytes % 5% (24-48) Monocytes % 5% (0-10) Eosinophils % 5% (0-5) Metamyelocytes % 1% (0-0) Myelocytes % 2% (0-0) Platelet Estimate Adequate (ADEQUATE) [place] Cells Occ Schistocytes Occ Sodium Level 142mmol/L (136-145) Potassium Level 4.5mmol/L (3.5-5.1) Chloride Level 106mmol/L (98-107) Carbon Dioxide Level 25mmol/L (21-32) Anion Gap 11 (6-14) Blood Urea Nitrogen 44mg/dL (8-26) Creatinine 1.9mg/dL (0.7-1.3) Estimated GFR (Cockcroft-Gault) 35.1 Glucose Level 286mg/dL (70-99) Calcium Level 8.9mg/dL (8.5-10.1) Phosphorus Level 4.0mg/dL (2.6-4.7) Magnesium Level 2.1mg/dL (1.8-2.4) Albumin 2.6g/dL (3.4-5.0) Glucose (Fingerstick) 274mg/dL (70-99) Activated Clotting Time 162sec (92-181) Heparin Anti-Xa Act, Unfractionated 0.27IU/mL (0.30-0.70) Test 12/04/16 13:40 Glucose (Fingerstick) 276mg/dL (70-99) Laboratory Tests Test 12/03/16 17:40 12/03/16 21:22 12/04/16 00:07 12/04/16 05:35 Glucose (Fingerstick) 247mg/dL (70-99) 255mg/dL (70-99) 246mg/dL (70-99) White Blood Count 16.1x10^3/uL (4.0-11.0) Red Blood Count 2.63x10^6/uL (4.30-5.70) Hemoglobin 7.8g/dL (13.0-17.5) Hematocrit 23.2% (39.0-53.0) Mean Corpuscular Volume 88fL (79-100) Mean Corpuscular Hemoglobin 30pg (25-35) Mean Corpuscular Hemoglobin Concent 34g/dL (31-37) Red Cell Distribution Width 15.4% (11.5-14.5) Platelet Count 252x10^3/uL (140-400) Neutrophils (%) (Auto) 73% (31-73) Lymphocytes (%) (Auto) 9% (24-48) Monocytes (%) (Auto) 12% (0-9) Eosinophils (%) (Auto) 5% (0-3) Basophils (%) (Auto) 1% (0-3) Neutrophils # (Auto) 11.8x10^3uL (1.8-7.7) Lymphocytes # (Auto) 1.4x10^3/uL (1.0-4.8) Monocytes # (Auto) 1.9x10^3/uL (0.0-1.1) Eosinophils # (Auto) 0.9x10^3/uL (0.0-0.7) Basophils # (Auto) 0.1x10^3/uL (0.0-0.2) Segmented Neutrophils % 79% (35-66) Band Neutrophils % 3% (0-9) Lymphocytes % 5% (24-48) Monocytes % 5% (0-10) Eosinophils % 5% (0-5) Metamyelocytes % 1% (0-0) Myelocytes % 2% (0-0) Platelet Estimate Adequate (ADEQUATE) Salas Cells Occ Schistocytes Occ Sodium Level 142mmol/L (136-145) Potassium Level 4.5mmol/L (3.5-5.1) Chloride Level 106mmol/L (98-107) Carbon Dioxide Level 25mmol/L (21-32) Anion Gap 11 (6-14) Blood Urea Nitrogen 44mg/dL (8-26) Creatinine 1.9mg/dL (0.7-1.3) Estimated GFR (Cockcroft-Gault) 35.1 Glucose Level 286mg/dL (70-99) Calcium Level 8.9mg/dL (8.5-10.1) Phosphorus Level 4.0mg/dL (2.6-4.7) Magnesium Level 2.1mg/dL (1.8-2.4) Albumin 2.6g/dL (3.4-5.0) Test 12/04/16 06:14 12/04/16 07:32 12/04/16 11:20 12/04/16 13:40 Glucose (Fingerstick) 274mg/dL (70-99) 276mg/dL (70-99) Activated Clotting Time 162sec (92-181) Heparin Anti-Xa Act, Unfractionated 0.27IU/mL (0.30-0.70) Problem List Problems Medical Problems: (1) Cardiac arrest Status: Acute Assessment/Plan no surgical plans will sign off, but remain available d/w pt's family Problems: MALCOLM RAYMOND MD Dec 04, 2016 15:52
[2016-12-04] MEDS ORDERED: MORPHINE SULFATE 4 MG/ML DISP.SYRIN. IV PRN (19:15)
[2016-12-04] MEDS: MORPHINE SULFATE 2 MG/ML DISP.SYRIN. IV PRN (19:20)
[2016-12-04] MEDS ORDERED: INSULIN DETEMIR 300 UNITS/3 ML INSULN.PEN. SQ SCH (21:00)
[2016-12-04] MEDS ORDERED: [UNRECOGNIZED DRUG - OTHER] IV SCH ×10 (22:00)
[2016-12-04] MEDS ORDERED: AMINO ACIDS IV SCH ×10 (22:00)
[2016-12-04] MEDS ORDERED: DEXTROSE 70% IV SCH ×10 (22:00)
[2016-12-04] MEDS ORDERED: TOTAL PARENTERAL NUTRITION IV SCH ×10 (22:00)
[2016-12-04] MEDS: INSULIN DETEMIR 300 UNITS/3 ML INSULN.PEN. SQ SCH (22:54)
[2016-12-05] MEDS: PIPERACILLIN/TAZOBACTAM 3.375 GM in IV NORMAL SALINE 50ML 50 ML IV SCH ×4 (00:14→17:53)
[2016-12-05] MEDS: INSULIN ASPART 300 UNITS/3 ML INSULN.PEN SQ SCH ×4 (00:22→18:11)
[2016-12-05 03:00] VITALS: BP 143/62
[2016-12-05] MEDS: METOPROLOL TARTRATE 5 MG/5 ML VIAL. IVP SCH ×4 (03:36→21:16)
[2016-12-05 06:48] LABS: BASO % 0 % (0-3); EOS % 5 % (0-3); HEMATOCRIT 21.7 % (39.0-53.0); HEMOGLOBIN 7.3 g/dL (13.0-17.5); LYMPH # 1.3 x10^3/uL (1.0-4.8); LYMPH % 9 % (24-48); MEAN CORPUSCULAR HEMOGLOBIN 30 pg (25-35); MEAN CORPUSCULAR HGB CONC 34 g/dL (31-37); MEAN CORPUSCULAR VOLUME 90 fL (79-100); MONO % 11 % (0-9); NEUT % 75 % (31-73); PLATELET COUNT 273 x10^3/uL (140-400); RED CELL DISTRIBUTION WIDTH 15.8 % (11.5-14.5); WHITE BLOOD COUNT 15.4 x10^3/uL (4.0-11.0)
[2016-12-05] MEDS: IPRATROPIUM BROMIDE 0.5 MG/2.5 ML NEBU. NEB SCH ×4 (06:56→20:04)
[2016-12-05] MEDS: BUDESONIDE 0.5 MG/2 ML NEBU. NEB SCH ×2 (06:57→20:04)
[2016-12-05 07:00] VITALS: BP 157/59
[2016-12-05 07:01] LABS: CREATININE 1.9 mg/dL (0.7-1.3); GFR 35.1; POTASSIUM 4.6 mmol/L (3.5-5.1)
[2016-12-05 07:07] LABS: PHOSPHORUS 3.5 mg/dL (2.6-4.7)
--- NOTE | 2016-12-05 08:56 | PDOC ---
Subjective: Subjective: Onc f/u- PE/ DVT, Cytopenias Pt with fatigue, difficulty swallowing. Noted consideration of PEG.. No SOB, CP this AM. Objective: Vital Signs: Vital Signs Date Time Temp Pulse Resp B/P Pulse Ox O2 Delivery O2 Flow Rate FiO2 12/05/16 07:00 98.6 94 18 157/59 97 Nasal Cannula 3.0 98.6 Physical Exam: Heart: Regular rate Extremities: No edema General: Alert, Oriented X3, Cooperative, No acute distress Lungs: Other (no resp distress) Psych/Mental Status: Mental status NL, Mood NL Labs/Imaging: CBC stable Noted cardiac cath- clear with no culprit lesions or need for interventions Assessment/Plan A/P: 1. 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 Will transition to lovenox bid, then eliquis when no more procedures needed. 2. Acute blood loss anemia, now likely worsened by critical illness, mixed iron picture. Gave venofer 12/02. Last transfusion 12/02. Will change labs to QOD to avoid anemia induced by lab draws. 3. S/p cardiac arrest. Heart cath clear. Likely initiated by PE. 4. CKD- stable 5. Dysphagia. ?need for PEG if does not improve. Plan: - Labs QOD now that stable - Changed heparin to lovenox to avoid frequent labs. Ok to start eliquis when no procedures needed (?need for PEG) - Lifelong anticoag I will follow peripherally this and return Thursday unless any acute issues arise. EVELYN LABOY DO Dec 05, 2016 08:56
--- NOTE | 2016-12-05 09:01 | PDOC ---
PULMONARY PROGRESS NOTES Subjective pt working with PT no resp complaints Vitals Vital Signs Date Time Temp Pulse Resp B/P Pulse Ox O2 Delivery O2 Flow Rate FiO2 12/05/16 07:00 98.6 94 18 157/59 97 Nasal Cannula 3.0 98.6 Comments ros as mentioned as above. discussed w rn, other sys otherwise neg General: Alert, No acute distress HEENT: Other (nc at, perrl, nose clear, shallow oropharynx. neck, + jvd, no thyromegaly, no lap) Lungs: Clear Cardiovascular: S1, S2 Abdomen: Soft, Non-tender, Other (no mass) Neuro Exam: Alert Extremities: Other (2=edema) Skin: Warm Labs Laboratory Tests Test 12/03/16 13:04 12/03/16 17:40 12/03/16 21:22 12/04/16 00:07 Glucose (Fingerstick) 237mg/dL (70-99) 247mg/dL (70-99) 255mg/dL (70-99) 246mg/dL (70-99) Test 12/04/16 05:35 12/04/16 06:14 12/04/16 07:32 12/04/16 11:20 White Blood Count 16.1x10^3/uL (4.0-11.0) Red Blood Count 2.63x10^6/uL (4.30-5.70) Hemoglobin 7.8g/dL (13.0-17.5) Hematocrit 23.2% (39.0-53.0) Mean Corpuscular Volume 88fL (79-100) Mean Corpuscular Hemoglobin 30pg (25-35) Mean Corpuscular Hemoglobin Concent 34g/dL (31-37) Red Cell Distribution Width 15.4% (11.5-14.5) Platelet Count 252x10^3/uL (140-400) Neutrophils (%) (Auto) 73% (31-73) Lymphocytes (%) (Auto) 9% (24-48) Monocytes (%) (Auto) 12% (0-9) Eosinophils (%) (Auto) 5% (0-3) Basophils (%) (Auto) 1% (0-3) Neutrophils # (Auto) 11.8x10^3uL (1.8-7.7) Lymphocytes # (Auto) 1.4x10^3/uL (1.0-4.8) Monocytes # (Auto) 1.9x10^3/uL (0.0-1.1) Eosinophils # (Auto) 0.9x10^3/uL (0.0-0.7) Basophils # (Auto) 0.1x10^3/uL (0.0-0.2) Segmented Neutrophils % 79% (35-66) Band Neutrophils % 3% (0-9) Lymphocytes % 5% (24-48) Monocytes % 5% (0-10) Eosinophils % 5% (0-5) Metamyelocytes % 1% (0-0) Myelocytes % 2% (0-0) Platelet Estimate Adequate (ADEQUATE) [place] Cells Occ Schistocytes Occ Sodium Level 142mmol/L (136-145) Potassium Level 4.5mmol/L (3.5-5.1) Chloride Level 106mmol/L (98-107) Carbon Dioxide Level 25mmol/L (21-32) Anion Gap 11 (6-14) Blood Urea Nitrogen 44mg/dL (8-26) Creatinine 1.9mg/dL (0.7-1.3) Estimated GFR (Cockcroft-Gault) 35.1 Glucose Level 286mg/dL (70-99) Calcium Level 8.9mg/dL (8.5-10.1) Phosphorus Level 4.0mg/dL (2.6-4.7) Magnesium Level 2.1mg/dL (1.8-2.4) Albumin 2.6g/dL (3.4-5.0) Glucose (Fingerstick) 274mg/dL (70-99) Activated Clotting Time 162sec (92-181) Heparin Anti-Xa Act, Unfractionated 0.27IU/mL (0.30-0.70) Test 12/04/16 13:40 12/04/16 16:57 12/04/16 20:44 12/05/16 00:08 Glucose (Fingerstick) 276mg/dL (70-99) 280mg/dL (70-99) 266mg/dL (70-99) 221mg/dL (70-99) Test 12/05/16 06:03 12/05/16 06:05 Glucose (Fingerstick) 253mg/dL (70-99) White Blood Count 15.4x10^3/uL (4.0-11.0) Red Blood Count 2.40x10^6/uL (4.30-5.70) Hemoglobin 7.3g/dL (13.0-17.5) Hematocrit 21.7% (39.0-53.0) Mean Corpuscular Volume 90fL (79-100) Mean Corpuscular Hemoglobin 30pg (25-35) Mean Corpuscular Hemoglobin Concent 34g/dL (31-37) Red Cell Distribution Width 15.8% (11.5-14.5) Platelet Count 273x10^3/uL (140-400) Neutrophils (%) (Auto) 75% (31-73) Lymphocytes (%) (Auto) 9% (24-48) Monocytes (%) (Auto) 11% (0-9) Eosinophils (%) (Auto) 5% (0-3) Basophils (%) (Auto) 0% (0-3) Neutrophils # (Auto) 11.5x10^3uL (1.8-7.7) Lymphocytes # (Auto) 1.3x10^3/uL (1.0-4.8) Monocytes # (Auto) 1.7x10^3/uL (0.0-1.1) Eosinophils # (Auto) 0.8x10^3/uL (0.0-0.7) Basophils # (Auto) 0.0x10^3/uL (0.0-0.2) Heparin Anti-Xa Act, Unfractionated 0.31IU/mL (0.30-0.70) Sodium Level 144mmol/L (136-145) Potassium Level 4.6mmol/L (3.5-5.1) Chloride Level 108mmol/L (98-107) Carbon Dioxide Level 25mmol/L (21-32) Anion Gap 11 (6-14) Blood Urea Nitrogen 48mg/dL (8-26) Creatinine 1.9mg/dL (0.7-1.3) Estimated GFR (Cockcroft-Gault) 35.1 Glucose Level 253mg/dL (70-99) Calcium Level 9.0mg/dL (8.5-10.1) Phosphorus Level 3.5mg/dL (2.6-4.7) Magnesium Level 2.0mg/dL (1.8-2.4) Laboratory Tests Test 12/04/16 11:20 12/04/16 13:40 12/04/16 16:57 12/04/16 20:44 Heparin Anti-Xa Act, Unfractionated 0.27IU/mL (0.30-0.70) Glucose (Fingerstick) 276mg/dL (70-99) 280mg/dL (70-99) 266mg/dL (70-99) Test 12/05/16 00:08 12/05/16 06:03 12/05/16 06:05 Glucose (Fingerstick) 221mg/dL (70-99) 253mg/dL (70-99) White Blood Count 15.4x10^3/uL (4.0-11.0) Red Blood Count 2.40x10^6/uL (4.30-5.70) Hemoglobin 7.3g/dL (13.0-17.5) Hematocrit 21.7% (39.0-53.0) Mean Corpuscular Volume 90fL (79-100) Mean Corpuscular Hemoglobin 30pg (25-35) Mean Corpuscular Hemoglobin Concent 34g/dL (31-37) Red Cell Distribution Width 15.8% (11.5-14.5) Platelet Count 273x10^3/uL (140-400) Neutrophils (%) (Auto) 75% (31-73) Lymphocytes (%) (Auto) 9% (24-48) Monocytes (%) (Auto) 11% (0-9) Eosinophils (%) (Auto) 5% (0-3) Basophils (%) (Auto) 0% (0-3) Neutrophils # (Auto) 11.5x10^3uL (1.8-7.7) Lymphocytes # (Auto) 1.3x10^3/uL (1.0-4.8) Monocytes # (Auto) 1.7x10^3/uL (0.0-1.1) Eosinophils # (Auto) 0.8x10^3/uL (0.0-0.7) Basophils # (Auto) 0.0x10^3/uL (0.0-0.2) Heparin Anti-Xa Act, Unfractionated 0.31IU/mL (0.30-0.70) Sodium Level 144mmol/L (136-145) Potassium Level 4.6mmol/L (3.5-5.1) Chloride Level 108mmol/L (98-107) Carbon Dioxide Level 25mmol/L (21-32) Anion Gap 11 (6-14) Blood Urea Nitrogen 48mg/dL (8-26) Creatinine 1.9mg/dL (0.7-1.3) Estimated GFR (Cockcroft-Gault) 35.1 Glucose Level 253mg/dL (70-99) Calcium Level 9.0mg/dL (8.5-10.1) Phosphorus Level 3.5mg/dL (2.6-4.7) Magnesium Level 2.0mg/dL (1.8-2.4) Comments cxr reviewed, increased vm, ll infilt atelectasis effusion R>L Impression . 1. Acute respiratory failure secondary to [id number] cardiopulmonary arrest. 2. Hyperlipidemia. 3. Diabetes. 4. Positive venous Doppler/ high prob V/Q, on Heparin/ popliteal nonocclusive thrombus. 5. Metabolic acidosis sec to code, improved. 6. PE 7. Ischemia CM 35-40%, cath no significant lesion 8. Acute kidney injury 9. anemia, 10. wheezing, acute bronchospasm, resolved 11. abnl cxr, suspect chf Plan . pt improving cath report noted needs rehab resp status is compensated 1. off Bipap , use prn 2. s/p hypothermic protocol 3. Cardiology, follow rec 4. follow nephrology input 5. cath noted 6. Titrate FIO2. 7. cont antibiotics. 8. bronchodilator, ics 9. Protonix 10. heparin gtt, s/p ivc filter 11/29, monitor closely for bleeding, no retro peritoneal bleed, start Coumadin once ready to eat PO. 3 months total AC [facility] GUILLORY MD Dec 05, 2016 09:01
--- NOTE | 2016-12-05 09:24 | PDOC ---
PROGRESS NOTES Chief Complaint Chief Complaint Cardiac arrest ASSESSMENT AND PLAN; 1. Cardiac arrest: pre-admit. cardiology service following. cath done today : "clean". heparin IV post procedure 2. Respir failure: poss 2/2 massive PE. extubated 11/27. no ongoing issues 3. DVT/PE: Lyla STEPHENS. IVC filter placed 11/29. back on (low dose) heparin. D/w Dr Leary: switch to lovenox for now to minimize blood draws. life-long anti- coag will be necessary for catastrophic PE; plan on thrombin inhibitor starting post decision re PEG need 4. Anemia: acute blood loss - suspect soft tissue bleed +/- ischemic gut +/- HAMILTON and inflammation. very slowly drifting. transfuse PRBC x1. iron studies c/w severe inflammation. low dose PO iron when recovered 5. ?ischemic bowel: currently asymptomatic; NGT removed. 6. Dysphagia: ongoing by bedside swallow study. cont NPO, TPN for now. GI following 7. CHF: systolic - EF 35-40% post arrest. cont daily lasix 8. CKD: creat stable. monitor 9. DM2: remains high . increase levemir 12->20->30 10. Leukocytosis: reactive. monitor 11. Bacteremia: 09/10 bottles Peptostreptococcus sp. on Zosyn (day 11). ID following. 12. HLD: on statin 13 Transaminitis: resolved. suspect 2/2 cardiogenic shock. underlying fatty liver 14. prophylaxis: PPI 15. Psych: depressed with slow progress, NPO. needs encouragement, change in environment 16. Dispo: transfer to [facility]. History of Present Illness History of Present Illness Vitals Vitals Vital Signs Date Time Temp Pulse Resp B/P Pulse Ox O2 Delivery O2 Flow Rate FiO2 12/05/16 07:00 98.6 94 18 157/59 97 Nasal Cannula 3.0 98.6 Physical Exam General: Alert, Oriented X3, Cooperative, No acute distress Heart: Regular rate Lungs: Clear Abdomen: Soft, No tenderness Extremities: No edema Skin: No rashes Labs LABS Laboratory Tests Test 12/04/16 11:20 12/04/16 13:40 12/04/16 16:57 12/04/16 20:44 Heparin Anti-Xa Act, Unfractionated 0.27IU/mL (0.30-0.70) Glucose (Fingerstick) 276mg/dL (70-99) 280mg/dL (70-99) 266mg/dL (70-99) Test 12/05/16 00:08 12/05/16 06:03 12/05/16 06:05 Glucose (Fingerstick) 221mg/dL (70-99) 253mg/dL (70-99) White Blood Count 15.4x10^3/uL (4.0-11.0) Red Blood Count 2.40x10^6/uL (4.30-5.70) Hemoglobin 7.3g/dL (13.0-17.5) Hematocrit 21.7% (39.0-53.0) Mean Corpuscular Volume 90fL (79-100) Mean Corpuscular Hemoglobin 30pg (25-35) Mean Corpuscular Hemoglobin Concent 34g/dL (31-37) Red Cell Distribution Width 15.8% (11.5-14.5) Platelet Count 273x10^3/uL (140-400) Neutrophils (%) (Auto) 75% (31-73) Lymphocytes (%) (Auto) 9% (24-48) Monocytes (%) (Auto) 11% (0-9) Eosinophils (%) (Auto) 5% (0-3) Basophils (%) (Auto) 0% (0-3) Neutrophils # (Auto) 11.5x10^3uL (1.8-7.7) Lymphocytes # (Auto) 1.3x10^3/uL (1.0-4.8) Monocytes # (Auto) 1.7x10^3/uL (0.0-1.1) Eosinophils # (Auto) 0.8x10^3/uL (0.0-0.7) Basophils # (Auto) 0.0x10^3/uL (0.0-0.2) Heparin Anti-Xa Act, Unfractionated 0.31IU/mL (0.30-0.70) Sodium Level 144mmol/L (136-145) Potassium Level 4.6mmol/L (3.5-5.1) Chloride Level 108mmol/L (98-107) Carbon Dioxide Level 25mmol/L (21-32) Anion Gap 11 (6-14) Blood Urea Nitrogen 48mg/dL (8-26) Creatinine 1.9mg/dL (0.7-1.3) Estimated GFR (Cockcroft-Gault) 35.1 Glucose Level 253mg/dL (70-99) Calcium Level 9.0mg/dL (8.5-10.1) Phosphorus Level 3.5mg/dL (2.6-4.7) Magnesium Level 2.0mg/dL (1.8-2.4) Review of Systems Review of Systems depressed. uncomfortable, achy allover DAHLIA PETERSON MD Dec 05, 2016 09:24
--- NOTE | 2016-12-05 09:38 | PDOC ---
Infectious Disease Note Subjective Subjective awake, feeling better, on NC, ROS ROS no n/v/d/pain Vital Sign Vital Signs Vital Signs Date Time Temp Pulse Resp B/P Pulse Ox O2 Delivery O2 Flow Rate FiO2 12/05/16 07:00 98.6 94 18 157/59 97 Nasal Cannula 3.0 98.6 Physical Exam PHYSICAL EXAM GENERAL: NAD, Alert HEENT: PERRL, OC/OP NECK: Supple, no JVD, no LN LUNGS: Clear HEART: S1S2, no gallop, no murmur ABD: Soft, NT, no organomegaly, no rebound EXT: No edema, no cyanosis HEEL BURNISHER: Alert, oriented x 3, no focal neurologic deficit SKIN: No rash IV: ok Labs Lab Laboratory Tests Test 12/04/16 11:20 12/04/16 13:40 12/04/16 16:57 12/04/16 20:44 Heparin Anti-Xa Act, Unfractionated 0.27IU/mL (0.30-0.70) Glucose (Fingerstick) 276mg/dL (70-99) 280mg/dL (70-99) 266mg/dL (70-99) Test 12/05/16 00:08 12/05/16 06:03 12/05/16 06:05 Glucose (Fingerstick) 221mg/dL (70-99) 253mg/dL (70-99) White Blood Count 15.4x10^3/uL (4.0-11.0) Red Blood Count 2.40x10^6/uL (4.30-5.70) Hemoglobin 7.3g/dL (13.0-17.5) Hematocrit 21.7% (39.0-53.0) Mean Corpuscular Volume 90fL (79-100) Mean Corpuscular Hemoglobin 30pg (25-35) Mean Corpuscular Hemoglobin Concent 34g/dL (31-37) Red Cell Distribution Width 15.8% (11.5-14.5) Platelet Count 273x10^3/uL (140-400) Neutrophils (%) (Auto) 75% (31-73) Lymphocytes (%) (Auto) 9% (24-48) Monocytes (%) (Auto) 11% (0-9) Eosinophils (%) (Auto) 5% (0-3) Basophils (%) (Auto) 0% (0-3) Neutrophils # (Auto) 11.5x10^3uL (1.8-7.7) Lymphocytes # (Auto) 1.3x10^3/uL (1.0-4.8) Monocytes # (Auto) 1.7x10^3/uL (0.0-1.1) Eosinophils # (Auto) 0.8x10^3/uL (0.0-0.7) Basophils # (Auto) 0.0x10^3/uL (0.0-0.2) Heparin Anti-Xa Act, Unfractionated 0.31IU/mL (0.30-0.70) Sodium Level 144mmol/L (136-145) Potassium Level 4.6mmol/L (3.5-5.1) Chloride Level 108mmol/L (98-107) Carbon Dioxide Level 25mmol/L (21-32) Anion Gap 11 (6-14) Blood Urea Nitrogen 48mg/dL (8-26) Creatinine 1.9mg/dL (0.7-1.3) Estimated GFR (Cockcroft-Gault) 35.1 Glucose Level 253mg/dL (70-99) Calcium Level 9.0mg/dL (8.5-10.1) Phosphorus Level 3.5mg/dL (2.6-4.7) Magnesium Level 2.0mg/dL (1.8-2.4) Micro BC 09/10 Peptostreptococcus Objective Assessment S/P VT/VF Cardiac arrest, on hypothermia protocol DVT suspected PE Suspected ischemic bowel Lactic acidosis Leukocytosis likely reactive BC Peptostreptococcus Plan Plan of Care Zosyn change to po when able to swallow Repeat BC NGTD Monitor temp Supportive care d/w family DANI DIAMOND MD Dec 05, 2016 09:38
[2016-12-05] MEDS: PANTOPRAZOLE IV PUSH 40 MG VIAL. IVP SCH (09:52)
[2016-12-05] MEDS: FUROSEMIDE 40 MG/4 ML VIAL. IVP SCH (09:53)
[2016-12-05] MEDS: ASPIRIN 300 MG SUPP.RECT PR SCH (09:53)
--- NOTE | 2016-12-05 09:57 | PDOC ---
Subjective: Subjective: Doing okay, no GI complaints. Objective: Objective: Per RN - swallowing/TPN will need to be addressed before DC to rehab. STOREROOM CLERK will see again today. No other GI concerns. ?switch from Heparin to Lovenox Vital Signs: Vital Signs Date Time Temp Pulse Resp B/P Pulse Ox O2 Delivery O2 Flow Rate FiO2 12/05/16 09:53 96 157/59 12/05/16 07:00 98.6 18 97 Nasal Cannula 3.0 98.6 Labs: Laboratory Tests Test 12/04/16 11:20 12/04/16 13:40 12/04/16 16:57 12/04/16 20:44 Heparin Anti-Xa Act, Unfractionated 0.27IU/mL Glucose (Fingerstick) 276mg/dL 280mg/dL 266mg/dL Test 12/05/16 00:08 12/05/16 06:03 12/05/16 06:05 Glucose (Fingerstick) 221mg/dL 253mg/dL White Blood Count 15.4x10^3/uL Red Blood Count 2.40x10^6/uL Hemoglobin 7.3g/dL Hematocrit 21.7% Mean Corpuscular Volume 90fL Mean Corpuscular Hemoglobin 30pg Mean Corpuscular Hemoglobin Concent 34g/dL Red Cell Distribution Width 15.8% Platelet Count 273x10^3/uL Neutrophils (%) (Auto) 75% Lymphocytes (%) (Auto) 9% Monocytes (%) (Auto) 11% Eosinophils (%) (Auto) 5% Basophils (%) (Auto) 0% Neutrophils # (Auto) 11.5x10^3uL Lymphocytes # (Auto) 1.3x10^3/uL Monocytes # (Auto) 1.7x10^3/uL Eosinophils # (Auto) 0.8x10^3/uL Basophils # (Auto) 0.0x10^3/uL Heparin Anti-Xa Act, Unfractionated 0.31IU/mL Sodium Level 144mmol/L Potassium Level 4.6mmol/L Chloride Level 108mmol/L Carbon Dioxide Level 25mmol/L Anion Gap 11 Blood Urea Nitrogen 48mg/dL Creatinine 1.9mg/dL Estimated GFR (Cockcroft-Gault) 35.1 Glucose Level 253mg/dL Calcium Level 9.0mg/dL Phosphorus Level 3.5mg/dL Magnesium Level 2.0mg/dL PE: GEN: NAD, up to chair LUNGS: w/ nasal cannula HEART: RRR ABD: NABS, S/ND/NT NEURO/PSYCH: A & O 3 A/P: Anemia -Hgb in 7s on Heparin -on PPI IV Cardiac arrest, resp failure, HAMILTON, dysphagia -on TPN -- Ongoing swallow evaluation, ?PEG YAMEL CUEVAS Dec 05, 2016 09:57
[2016-12-05] MEDS: ANTI-COAG MONITOR BY PHARMACY. MC PRN (10:17)
[2016-12-05] MEDS: TPN PER PHARMACY MC PRN (10:22)
--- NOTE | 2016-12-05 11:29 | PDOC ---
CARMELO POSADAS BPM DEVELOPER 12/05/16 1129: CARDIO Progress Notes Date and Time Date of Service 12/05/16 Time of Evaluation 1020 Subjective Subjective: No Chest Pain, No shortness of breath, No Palpitations, Other ( mild fatigue. frustrated with intermittent confusion and weak swallow) Comments: no acute events overnight; sitting up in chair after walk this morning Vitals Vitals Vital Signs Date Time Temp Pulse Resp B/P Pulse Ox O2 Delivery O2 Flow Rate FiO2 12/05/16 10:49 98 Nasal Cannula 3.0 12/05/16 09:53 96 157/59 12/05/16 07:00 98.6 18 98.6 Weight Weight [ ] Input and Output Intake and Output Intake and Output 12/05/16 07:00 Intake Total 3481.6 ml Output Total 2450 ml Balance 1031.6 ml Intake Oral 0 ml IV Total 3481.6 ml Output Urine Total 2450 ml Laboratory Labs Laboratory Tests Test 12/04/16 11:20 12/04/16 13:40 12/04/16 16:57 12/04/16 20:44 Heparin Anti-Xa Act, Unfractionated 0.27IU/mL (0.30-0.70) Glucose (Fingerstick) 276mg/dL (70-99) 280mg/dL (70-99) 266mg/dL (70-99) Test 12/05/16 00:08 12/05/16 06:03 12/05/16 06:05 Glucose (Fingerstick) 221mg/dL (70-99) 253mg/dL (70-99) White Blood Count 15.4x10^3/uL (4.0-11.0) Red Blood Count 2.40x10^6/uL (4.30-5.70) Hemoglobin 7.3g/dL (13.0-17.5) Hematocrit 21.7% (39.0-53.0) Mean Corpuscular Volume 90fL (79-100) Mean Corpuscular Hemoglobin 30pg (25-35) Mean Corpuscular Hemoglobin Concent 34g/dL (31-37) Red Cell Distribution Width 15.8% (11.5-14.5) Platelet Count 273x10^3/uL (140-400) Neutrophils (%) (Auto) 75% (31-73) Lymphocytes (%) (Auto) 9% (24-48) Monocytes (%) (Auto) 11% (0-9) Eosinophils (%) (Auto) 5% (0-3) Basophils (%) (Auto) 0% (0-3) Neutrophils # (Auto) 11.5x10^3uL (1.8-7.7) Lymphocytes # (Auto) 1.3x10^3/uL (1.0-4.8) Monocytes # (Auto) 1.7x10^3/uL (0.0-1.1) Eosinophils # (Auto) 0.8x10^3/uL (0.0-0.7) Basophils # (Auto) 0.0x10^3/uL (0.0-0.2) Heparin Anti-Xa Act, Unfractionated 0.31IU/mL (0.30-0.70) Sodium Level 144mmol/L (136-145) Potassium Level 4.6mmol/L (3.5-5.1) Chloride Level 108mmol/L (98-107) Carbon Dioxide Level 25mmol/L (21-32) Anion Gap 11 (6-14) Blood Urea Nitrogen 48mg/dL (8-26) Creatinine 1.9mg/dL (0.7-1.3) Estimated GFR (Cockcroft-Gault) 35.1 Glucose Level 253mg/dL (70-99) Calcium Level 9.0mg/dL (8.5-10.1) Phosphorus Level 3.5mg/dL (2.6-4.7) Magnesium Level 2.0mg/dL (1.8-2.4) Microbiology Micro Microbiology 11/28/16 Blood Culture - Final, Complete NO GROWTH AFTER 5 DAYS 11/24/16 Stool Culture - Final, Complete 11/24/16 Stool Culture Result 1 (ROSIE) - Final, Complete 11/24/16 Campylobacter Antigen Assay - Final, Complete 11/24/16 Campylobactor Result 1 - Final, Complete 11/24/16 Shiga Toxin Test - Final, Complete 11/25/16 Urine Culture - Final, Complete 11/25/16 Urine Culture Result 1 (ROSIE) - Final, Complete Review of Systems Constitutional: yes: alert, oriented, weakness Ears/Nose/Throat: Yes: no symptom reported Eyes: Yes: no symptom reported Pulmonary: Yes dyspnea Cardiovascular: Yes no symptom reported Gastrointestional: Yes: no symptom reported Musculoskeletal: Yes: muscle stiffness Skin: Yes no symptom reported Psychiatric/Neurological: Yes: no symptom reported Physical Exam HEENT: Neck Supple W Full Motion Chest: Symmetric LUNGS: Clear to Auscultation, Other (diminished bases right side moreso than left ) Heart: S1S2, RRR, no murmurs, other (tele SR) Abdomen: Soft N/T, Other (diffuse ecchymosis of bilateral groin area, lightening ) Extremities: 2+ Dorsalis Pedis, Other (trace LE edema ) Neurology: alert, oriented, follow commands, confused (intermittent ) Assessment Assessment 1. Cardiac arrest 2. PE 3. Bilateral DVT s/p IVC 4. Nonischemic cardiomyopathy; EF 35-40%. Cath without obstructive disease 5. HAMILTON 6. Anemia; hgb 7.3 Recommendations Video swallow today to determine severity of dysphagia/ need for PEG placement Lovenox until able to take PO or has PEG Repeat labs in am Compensated; continue with daily Lasix Continue supportive care FARIDA ALDRICH MD 12/06/16 0251: CARDIO Progress Notes Plan Plan Late entry for 12/05/2016 Pt. seen and examined. Agree with above SHAPER MACHINE HAND note. No acute cardiac issues overnight. no significant LE edema. Lungs with mild rhonchi anitcoag recs per Dr. Leary Will continue BP control and gentle diuresis Supportive care from CV standpoint. OK to DC to [facility] Will f/u on outpt basis. THanks CARMELO POSADAS APRN Dec 05, 2016 11:29 FARIDA ALDRICH MD Dec 06, 2016 02:51
[2016-12-05 11:55] VITALS: BP 128/69
--- NOTE | 2016-12-05 12:22 | PDOC ---
Renal-Progress Notes Subjective Notes Notes SITTING UP History of Present Illness Hx of present illness NO CHANGE Vitals Vitals Vital Signs Date Time Temp Pulse Resp B/P Pulse Ox O2 Delivery O2 Flow Rate FiO2 12/05/16 11:55 94 20 128/69 96 Nasal Cannula 3.0 12/05/16 07:00 98.6 98.6 Weight Weight [ ] I.O. Intake and Output Intake and Output 12/05/16 07:00 Intake Total 3481.6 ml Output Total 2450 ml Balance 1031.6 ml Intake Oral 0 ml IV Total 3481.6 ml Output Urine Total 2450 ml Labs Labs Laboratory Tests Test 12/04/16 13:40 12/04/16 16:57 12/04/16 20:44 12/05/16 00:08 Glucose (Fingerstick) 276mg/dL (70-99) 280mg/dL (70-99) 266mg/dL (70-99) 221mg/dL (70-99) Test 12/05/16 06:03 12/05/16 06:05 Glucose (Fingerstick) 253mg/dL (70-99) White Blood Count 15.4x10^3/uL (4.0-11.0) Red Blood Count 2.40x10^6/uL (4.30-5.70) Hemoglobin 7.3g/dL (13.0-17.5) Hematocrit 21.7% (39.0-53.0) Mean Corpuscular Volume 90fL (79-100) Mean Corpuscular Hemoglobin 30pg (25-35) Mean Corpuscular Hemoglobin Concent 34g/dL (31-37) Red Cell Distribution Width 15.8% (11.5-14.5) Platelet Count 273x10^3/uL (140-400) Neutrophils (%) (Auto) 75% (31-73) Lymphocytes (%) (Auto) 9% (24-48) Monocytes (%) (Auto) 11% (0-9) Eosinophils (%) (Auto) 5% (0-3) Basophils (%) (Auto) 0% (0-3) Neutrophils # (Auto) 11.5x10^3uL (1.8-7.7) Lymphocytes # (Auto) 1.3x10^3/uL (1.0-4.8) Monocytes # (Auto) 1.7x10^3/uL (0.0-1.1) Eosinophils # (Auto) 0.8x10^3/uL (0.0-0.7) Basophils # (Auto) 0.0x10^3/uL (0.0-0.2) Heparin Anti-Xa Act, Unfractionated 0.31IU/mL (0.30-0.70) Sodium Level 144mmol/L (136-145) Potassium Level 4.6mmol/L (3.5-5.1) Chloride Level 108mmol/L (98-107) Carbon Dioxide Level 25mmol/L (21-32) Anion Gap 11 (6-14) Blood Urea Nitrogen 48mg/dL (8-26) Creatinine 1.9mg/dL (0.7-1.3) Estimated GFR (Cockcroft-Gault) 35.1 Glucose Level 253mg/dL (70-99) Calcium Level 9.0mg/dL (8.5-10.1) Phosphorus Level 3.5mg/dL (2.6-4.7) Magnesium Level 2.0mg/dL (1.8-2.4) Micro Micro Microbiology 11/28/16 Blood Culture - Final, Complete NO GROWTH AFTER 5 DAYS 11/24/16 Stool Culture - Final, Complete 11/24/16 Stool Culture Result 1 (ROSIE) - Final, Complete 11/24/16 Campylobacter Antigen Assay - Final, Complete 11/24/16 Campylobactor Result 1 - Final, Complete 11/24/16 Shiga Toxin Test - Final, Complete 11/25/16 Urine Culture - Final, Complete 11/25/16 Urine Culture Result 1 (ROSIE) - Final, Complete Review of Systems Constitutional: yes: alert, oriented, weakness Ears/Nose/Throat: Yes: no symptom reported Eyes: Yes: no symptom reported Pulmonary: Yes dyspnea Cardiovascular: Yes no symptom reported Gastrointestional: Yes: no symptom reported Musculoskeletal: Yes: muscle stiffness Skin: Yes no symptom reported Psychiatric/Neurological: Yes: no symptom reported Physical Exam General Appearance: no apparent distress Skin: warm Respiratory: decreased breath sounds Heart: S1S2 Abdomen: soft, bowel sounds present Neurology: alert, oriented, follow commands, confused (intermittent ) Assessment Assessment IMP HAMILTON-BETTER WITH CR 2.6 TO 1.9 RESP FAILURE PE ANEMIA DYSPHAGIA PLAN CONT TPN DAILY IV LASIX FOR NOW SWALLOW EVAL TODAY LABS IN AM WILL FOLLOW LEFTY MONTERO MD Dec 05, 2016 12:22
[2016-12-05] MEDS ORDERED: BARIUM SULFATE 40% (APPLE) 148 GM PWD. PO ONE (14:00)
[2016-12-05] MEDS ORDERED: DEXTROSE 50% 25 GM / 50ML DISP.SYRIN. IV PRN (14:19)
--- NOTE | 2016-12-05 14:29 | RAD ---
Indication signs and symptoms of aspiration. With a member of the Department of speech pathology swallowing was evaluated. Occasional episodes of flash penetration was seen with swallowing. Significant residual was seen in the vallecula and piriform sinuses which, with repetitive swallowing, spilled over into the airway and was aspirated. The aspiration was silent. Only honey thick consistency material and pudding were administered. No thin liquid material was administered. See speech pathology notes for additional details. Fluoroscopy time associated with the study was 3.8 minutes IMPRESSION: Significant residual in the vallecula and piriform sinuses which, with repetitive swallowing, was aspirated. The aspiration was silent
[2016-12-05 14:51] VITALS: BP 155/75
[2016-12-05 19:21] VITALS: BP 152/74
[2016-12-05] MEDS: INSULIN DETEMIR 300 UNITS/3 ML INSULN.PEN. SQ SCH (21:15)
[2016-12-05] MEDS ORDERED: [UNRECOGNIZED DRUG - OTHER] IV SCH ×10 (22:00)
[2016-12-05] MEDS ORDERED: DEXTROSE 70% IV SCH ×10 (22:00)
[2016-12-05] MEDS ORDERED: AMINO ACIDS IV SCH ×10 (22:00)
[2016-12-05] MEDS ORDERED: TOTAL PARENTERAL NUTRITION IV SCH ×10 (22:00)
[2016-12-05 22:41] VITALS: BP 159/80
[2016-12-06] MEDS: PIPERACILLIN/TAZOBACTAM 3.375 GM in IV NORMAL SALINE 50ML 50 ML IV SCH ×5 (00:01→23:04)
[2016-12-06] MEDS: INSULIN ASPART 300 UNITS/3 ML INSULN.PEN SQ SCH ×4 (00:02→18:08)
[2016-12-06 02:53] VITALS: BP 155/84
[2016-12-06] MEDS: METOPROLOL TARTRATE 5 MG/5 ML VIAL. IVP SCH ×4 (03:07→22:32)
[2016-12-06 05:34] LABS: HEMOGLOBIN 7.8 g/dL (13.0-17.5); RED BLOOD COUNT 2.6 x10^6/uL (4.30-5.70); RED CELL DISTRIBUTION WIDTH 15.9 % (11.5-14.5); WHITE BLOOD COUNT 14.5 x10^3/uL (4.0-11.0)
[2016-12-06 05:57] LABS: CALCIUM 9.4 mg/dL (8.5-10.1); CREATININE 1.9 mg/dL (0.7-1.3); GFR 35.1; POTASSIUM 4.5 mmol/L (3.5-5.1)
[2016-12-06 07:00] VITALS: BP 158/76
[2016-12-06] MEDS: IPRATROPIUM BROMIDE 0.5 MG/2.5 ML NEBU. NEB SCH ×4 (07:36→21:28)
[2016-12-06] MEDS: BUDESONIDE 0.5 MG/2 ML NEBU. NEB SCH (07:36)
[2016-12-06] MEDS: FUROSEMIDE 40 MG/4 ML VIAL. IVP SCH (10:20)
[2016-12-06] MEDS: ASPIRIN 300 MG SUPP.RECT PR SCH (10:21)
[2016-12-06] MEDS: PANTOPRAZOLE IV PUSH 40 MG VIAL. IVP SCH (10:21)
--- NOTE | 2016-12-06 10:31 | PDOC ---
Infectious Disease Note Subjective Subjective Comfortable, denies pain c/o mouth/throat dryness, thirsty ROS ROS GEN: Denies fevers, chills, sweats CV: Denies chest pain RESP: Denies shortness of air, cough GI: Denies n/v/d NEURO: Denies confusion, dizziness Vital Sign Vital Signs Vital Signs Date Time Temp Pulse Resp B/P Pulse Ox O2 Delivery O2 Flow Rate FiO2 12/06/16 10:21 158/76 12/06/16 07:36 96 Nasal Cannula 3.0 12/06/16 07:00 97.7 93 18 97.7 Physical Exam PHYSICAL EXAM GENERAL: ALert, up in chair,relaxed appearance HEENT: PERRL, OC/OP white film posterior palate NECK: Supple, no JVD, no LN LUNGS: Clear HEART: S1S2, no gallop, no murmur ABD: Soft, NT, BS present EXT: No edema, no cyanosis [employer]: Alert, 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 clean Labs Lab Laboratory Tests Test 12/05/16 12:28 12/05/16 16:58 12/05/16 20:56 12/05/16 23:56 Glucose (Fingerstick) 202mg/dL (70-99) 206mg/dL (70-99) 236mg/dL (70-99) 214mg/dL (70-99) Test 12/06/16 04:54 12/06/16 05:10 12/06/16 07:46 Glucose (Fingerstick) 196mg/dL (70-99) 186mg/dL (70-99) White Blood Count 14.5x10^3/uL (4.0-11.0) Red Blood Count 2.60x10^6/uL (4.30-5.70) Hemoglobin 7.8g/dL (13.0-17.5) Hematocrit 24.0% (39.0-53.0) Mean Corpuscular Volume 93fL (79-100) Mean Corpuscular Hemoglobin 30pg (25-35) Mean Corpuscular Hemoglobin Concent 32g/dL (31-37) Red Cell Distribution Width 15.9% (11.5-14.5) Platelet Count 332x10^3/uL (140-400) Sodium Level 145mmol/L (136-145) Potassium Level 4.5mmol/L (3.5-5.1) Chloride Level 108mmol/L (98-107) Carbon Dioxide Level 26mmol/L (21-32) Anion Gap 11 (6-14) Blood Urea Nitrogen 50mg/dL (8-26) Creatinine 1.9mg/dL (0.7-1.3) Estimated GFR (Cockcroft-Gault) 35.1 Glucose Level 212mg/dL (70-99) Calcium Level 9.4mg/dL (8.5-10.1) Micro URINE CULTURE RES 1 Final No growth in 48 hours. BLD CULT RESULT 1 Preliminary (1 of 4 bottles) Gram positive cocci Beta lactamase negative. Objective Assessment Fever, possibly reactive from PRBCs and procedure. Resolved S/P VT/VF Cardiac arrest DVT/PE. s/p IVC filter. 11/29 Suspected ischemic bowel Lactic acidosis Leukocytosis likely reactive, trending down GPC bacteremia. Peptostreptococcus, 11/24 [place]. improved Respiratory failure. Anemia. s/p PRBCs Dysphagia, silent aspiration Plan Plan of Care Zosyn change to po when able to swallow Repeat BC Neg, 11/28 Supportive care Attending Co-Sign Attending Co-Sign The patient was seen and interviewed as well as examined at the bedside. The chart was reviewed. The case was discussed. Agree with the plan of care. DENYS ALVARENGA APRN Dec 06, 2016 10:31 BOBBY MOORE MD Dec 07, 2016 11:28
[2016-12-06 11:00] VITALS: BP 150/83
--- NOTE | 2016-12-06 11:44 | PDOC ---
Infectious Disease Note Subjective Subjective Comfortable, denies pain c/o mouth/throat dryness, thirsty No bloating or cramps ROS ROS GEN: Denies fevers, chills, sweats HEENT: Denies blurred vision, sore throat CV: Denies chest pain RESP: Denies shortness of air, cough GI: Denies n/v/d NEURO: Denies confusion, dizziness MSK: Denies weakness, joint pain/swelling Vital Sign Vital Signs Vital Signs Date Time Temp Pulse Resp B/P Pulse Ox O2 Delivery O2 Flow Rate FiO2 12/06/16 10:21 158/76 12/06/16 07:36 96 Nasal Cannula 3.0 12/06/16 07:00 97.7 93 18 97.7 Physical Exam PHYSICAL EXAM GENERAL: NAD, Alert HEENT: PERRL, OC/OP NECK: Supple, no JVD, no LN LUNGS: Clear HEART: S1S2, no gallop, no murmur ABD: Soft, NT, no organomegaly, no rebound EXT: No edema, no cyanosis NOTCH GR[employer]ER: Alert, oriented x 3, no focal neurologic deficit SKIN: No rash IV: ok Labs Lab Laboratory Tests Test 12/05/16 12:28 12/05/16 16:58 12/05/16 20:56 12/05/16 23:56 Glucose (Fingerstick) 202mg/dL (70-99) 206mg/dL (70-99) 236mg/dL (70-99) 214mg/dL (70-99) Test 12/06/16 04:54 12/06/16 05:10 12/06/16 07:46 Glucose (Fingerstick) 196mg/dL (70-99) 186mg/dL (70-99) White Blood Count 14.5x10^3/uL (4.0-11.0) Red Blood Count 2.60x10^6/uL (4.30-5.70) Hemoglobin 7.8g/dL (13.0-17.5) Hematocrit 24.0% (39.0-53.0) Mean Corpuscular Volume 93fL (79-100) Mean Corpuscular Hemoglobin 30pg (25-35) Mean Corpuscular Hemoglobin Concent 32g/dL (31-37) Red Cell Distribution Width 15.9% (11.5-14.5) Platelet Count 332x10^3/uL (140-400) Sodium Level 145mmol/L (136-145) Potassium Level 4.5mmol/L (3.5-5.1) Chloride Level 108mmol/L (98-107) Carbon Dioxide Level 26mmol/L (21-32) Anion Gap 11 (6-14) Blood Urea Nitrogen 50mg/dL (8-26) Creatinine 1.9mg/dL (0.7-1.3) Estimated GFR (Cockcroft-Gault) 35.1 Glucose Level 212mg/dL (70-99) Calcium Level 9.4mg/dL (8.5-10.1) Objective Assessment Fever, possibly reactive from PRBCs and procedure. Resolved S/P VT/VF Cardiac arrest DVT/PE. s/p IVC filter. 11/29 Suspected ischemic bowel Lactic acidosis Leukocytosis likely reactive, trending down. ? aspiration GPC bacteremia. Peptostreptococcus, 11/24 1/2 cults. On Zosyn since at lest H[place]. improved Respiratory failure. Anemia. s/p PRBCs Dysphagia, silent aspiration - failed Swallow 12/05 Plan Plan of Care Zosyn - d/c soon Repeat BC Neg, 11/28 Supportive care D/w family Attending Co-Sign Attending Co-Sign The patient was seen and interviewed as well as examined at the bedside. The chart was reviewed. The case was discussed. Agree with the plan of care. BOBBY MOORE MD Dec 06, 2016 11:44
[2016-12-06] MEDS: TPN PER PHARMACY MC PRN (13:18)
[2016-12-06] MEDS: ANTI-COAG MONITOR BY PHARMACY. MC PRN (13:44)
--- NOTE | 2016-12-06 14:20 | PDOC ---
PROGRESS NOTES Chief Complaint Chief Complaint Cardiac arrest 1. Cardiac arrest: pre-admit. cardiology service following. cath done today : "clean". heparin IV post procedure 2. Respir failure: poss 2/2 massive PE. extubated 11/27. no ongoing issues 3. DVT/PE: Lyla STEPHENS. IVC filter placed 11/29. back on (low dose) heparin. D/w Dr Leary: switch to lovenox for now to minimize blood draws. life-long anti- coag will be necessary for catastrophic PE; plan on thrombin inhibitor starting post decision re PEG need 4. Anemia: acute blood loss - suspect soft tissue bleed +/- ischemic gut +/- HAMILTON and inflammation. very slowly drifting. transfuse PRBC x1. iron studies c/w severe inflammation. low dose PO iron when recovered 5. ?ischemic bowel: currently asymptomatic; NGT removed. 6. Dysphagia: ongoing by bedside swallow study. cont NPO, TPN for now. GI following 7. CHF: systolic - EF 35-40% post arrest. cont daily lasix 8. CKD: creat stable. monitor 9. DM2: remains high . increase levemir 12->20->30 10. Leukocytosis: reactive. monitor 11. Bacteremia: 09/10 bottles Peptostreptococcus sp. on Zosyn (day 11). ID following. 12. HLD: on statin 13 Transaminitis: resolved. suspect 2/2 cardiogenic shock. underlying fatty liver 14. prophylaxis: PPI 15. Psych: depressed with slow progress, NPO. needs encouragement, change in environment 16. Dispo: transfer to [facility]. History of Present Illness History of Present Illness Patient seen and evaluated at bedside. No acute events overnight. Resting comfortably, c/o dry mouth and throat. Patient failed swallow study on 12/05, currently on TPN. Vitals Vitals Vital Signs Date Time Temp Pulse Resp B/P Pulse Ox O2 Delivery O2 Flow Rate FiO2 12/06/16 11:57 96 Nasal Cannula 3.0 12/06/16 11:00 97.9 96 18 150/83 97.9 Physical Exam General: Alert, Oriented X3, Cooperative, No acute distress Heart: Regular rate Lungs: Clear Abdomen: Soft, No tenderness Extremities: No edema Skin: No rashes, Other (triple lumen in place) Labs LABS Laboratory Tests Test 12/05/16 16:58 12/05/16 20:56 12/05/16 23:56 12/06/16 04:54 Glucose (Fingerstick) 206mg/dL (70-99) 236mg/dL (70-99) 214mg/dL (70-99) 196mg/dL (70-99) Test 12/06/16 05:10 12/06/16 07:46 12/06/16 11:54 White Blood Count 14.5x10^3/uL (4.0-11.0) Red Blood Count 2.60x10^6/uL (4.30-5.70) Hemoglobin 7.8g/dL (13.0-17.5) Hematocrit 24.0% (39.0-53.0) Mean Corpuscular Volume 93fL (79-100) Mean Corpuscular Hemoglobin 30pg (25-35) Mean Corpuscular Hemoglobin Concent 32g/dL (31-37) Red Cell Distribution Width 15.9% (11.5-14.5) Platelet Count 332x10^3/uL (140-400) Sodium Level 145mmol/L (136-145) Potassium Level 4.5mmol/L (3.5-5.1) Chloride Level 108mmol/L (98-107) Carbon Dioxide Level 26mmol/L (21-32) Anion Gap 11 (6-14) Blood Urea Nitrogen 50mg/dL (8-26) Creatinine 1.9mg/dL (0.7-1.3) Estimated GFR (Cockcroft-Gault) 35.1 Glucose Level 212mg/dL (70-99) Calcium Level 9.4mg/dL (8.5-10.1) Glucose (Fingerstick) 186mg/dL (70-99) 217mg/dL (70-99) Review of Systems Review of Systems reports of dry mouth Denies chest pain, shortness of breath, abdominal pain, or n/v/d. Assessment and Plan Assessmemt and Plan Problems Medical Problems: (1) Cardiac arrest Status: Acute S/P VT/VF Cardiac arrest Acute respiratory failure possibly 2/2 PE; extubated 11/27 DVT bilateral LEs - IVC filter placed 11/29 Acute blood loss anemia s/p transfusion dysphagia high risk of aspiration HFrEF HAMILTON vs. CKD DM II bactremia with Peptostreptococcus sp. on Zosyn (day 12) HLD leukocytosis Plan: ID, cardiology, GI, and nephrology consulted, recommendations appreciated. Continue TPN Continue wound care continue anticoagulation ? PEG placement per consults. monitor AM labs; creatinine stable at 1.9 PT/OT Pending SNU evaluation Problems: Comment Review of Relevant I have reviewed the following items rodolfo (where applicable) has been applied. Labs Laboratory Tests Test 12/04/16 16:57 12/04/16 20:44 12/05/16 00:08 12/05/16 06:03 Glucose (Fingerstick) 280mg/dL (70-99) 266mg/dL (70-99) 221mg/dL (70-99) 253mg/dL (70-99) Test 12/05/16 06:05 12/05/16 12:28 12/05/16 16:58 12/05/16 20:56 White Blood Count 15.4x10^3/uL (4.0-11.0) Red Blood Count 2.40x10^6/uL (4.30-5.70) Hemoglobin 7.3g/dL (13.0-17.5) Hematocrit 21.7% (39.0-53.0) Mean Corpuscular Volume 90fL (79-100) Mean Corpuscular Hemoglobin 30pg (25-35) Mean Corpuscular Hemoglobin Concent 34g/dL (31-37) Red Cell Distribution Width 15.8% (11.5-14.5) Platelet Count 273x10^3/uL (140-400) Neutrophils (%) (Auto) 75% (31-73) Lymphocytes (%) (Auto) 9% (24-48) Monocytes (%) (Auto) 11% (0-9) Eosinophils (%) (Auto) 5% (0-3) Basophils (%) (Auto) 0% (0-3) Neutrophils # (Auto) 11.5x10^3uL (1.8-7.7) Lymphocytes # (Auto) 1.3x10^3/uL (1.0-4.8) Monocytes # (Auto) 1.7x10^3/uL (0.0-1.1) Eosinophils # (Auto) 0.8x10^3/uL (0.0-0.7) Basophils # (Auto) 0.0x10^3/uL (0.0-0.2) Heparin Anti-Xa Act, Unfractionated 0.31IU/mL (0.30-0.70) Sodium Level 144mmol/L (136-145) Potassium Level 4.6mmol/L (3.5-5.1) Chloride Level 108mmol/L (98-107) Carbon Dioxide Level 25mmol/L (21-32) Anion Gap 11 (6-14) Blood Urea Nitrogen 48mg/dL (8-26) Creatinine 1.9mg/dL (0.7-1.3) Estimated GFR (Cockcroft-Gault) 35.1 Glucose Level 253mg/dL (70-99) Calcium Level 9.0mg/dL (8.5-10.1) Phosphorus Level 3.5mg/dL (2.6-4.7) Magnesium Level 2.0mg/dL (1.8-2.4) Glucose (Fingerstick) 202mg/dL (70-99) 206mg/dL (70-99) 236mg/dL (70-99) Test 12/05/16 23:56 12/06/16 04:54 12/06/16 05:10 12/06/16 07:46 Glucose (Fingerstick) 214mg/dL (70-99) 196mg/dL (70-99) 186mg/dL (70-99) White Blood Count 14.5x10^3/uL (4.0-11.0) Red Blood Count 2.60x10^6/uL (4.30-5.70) Hemoglobin 7.8g/dL (13.0-17.5) Hematocrit 24.0% (39.0-53.0) Mean Corpuscular Volume 93fL (79-100) Mean Corpuscular Hemoglobin 30pg (25-35) Mean Corpuscular Hemoglobin Concent 32g/dL (31-37) Red Cell Distribution Width 15.9% (11.5-14.5) Platelet Count 332x10^3/uL (140-400) Sodium Level 145mmol/L (136-145) Potassium Level 4.5mmol/L (3.5-5.1) Chloride Level 108mmol/L (98-107) Carbon Dioxide Level 26mmol/L (21-32) Anion Gap 11 (6-14) Blood Urea Nitrogen 50mg/dL (8-26) Creatinine 1.9mg/dL (0.7-1.3) Estimated GFR (Cockcroft-Gault) 35.1 Glucose Level 212mg/dL (70-99) Calcium Level 9.4mg/dL (8.5-10.1) Test 12/06/16 11:54 Glucose (Fingerstick) 217mg/dL (70-99) Laboratory Tests Test 12/05/16 16:58 12/05/16 20:56 12/05/16 23:56 12/06/16 04:54 Glucose (Fingerstick) 206mg/dL (70-99) 236mg/dL (70-99) 214mg/dL (70-99) 196mg/dL (70-99) Test 12/06/16 05:10 12/06/16 07:46 12/06/16 11:54 White Blood Count 14.5x10^3/uL (4.0-11.0) Red Blood Count 2.60x10^6/uL (4.30-5.70) Hemoglobin 7.8g/dL (13.0-17.5) Hematocrit 24.0% (39.0-53.0) Mean Corpuscular Volume 93fL (79-100) Mean Corpuscular Hemoglobin 30pg (25-35) Mean Corpuscular Hemoglobin Concent 32g/dL (31-37) Red Cell Distribution Width 15.9% (11.5-14.5) Platelet Count 332x10^3/uL (140-400) Sodium Level 145mmol/L (136-145) Potassium Level 4.5mmol/L (3.5-5.1) Chloride Level 108mmol/L (98-107) Carbon Dioxide Level 26mmol/L (21-32) Anion Gap 11 (6-14) Blood Urea Nitrogen 50mg/dL (8-26) Creatinine 1.9mg/dL (0.7-1.3) Estimated GFR (Cockcroft-Gault) 35.1 Glucose Level 212mg/dL (70-99) Calcium Level 9.4mg/dL (8.5-10.1) Glucose (Fingerstick) 186mg/dL (70-99) 217mg/dL (70-99) Microbiology 11/28/16 Blood Culture - Final, Complete NO GROWTH AFTER 5 DAYS 11/24/16 Stool Culture - Final, Complete 11/24/16 Stool Culture Result 1 (ROSIE) - Final, Complete 11/24/16 Campylobacter Antigen Assay - Final, Complete 11/24/16 Campylobactor Result 1 - Final, Complete 11/24/16 Shiga Toxin Test - Final, Complete 11/25/16 Urine Culture - Final, Complete 11/25/16 Urine Culture Result 1 (ROSIE) - Final, Complete Medications Current Medications Sodium Chloride 1,000 ml @ 1,000 mls/hr Q1H IV Last administered on 11/24/16 06:50; Start 11/24/16 at 06:50; Stop 11/24/16 at 07:49; Status DC Epinephrine HCl/ Sodium Chloride (Adrenalin/Iv Sodium Chloride 0.9% 250ml) 254 ml @ 0 mls/hr CONT PRN IV SEE I/O RECORD Last administered on 11/26/16 03:05; Start 11/24/16 at 07:30; Stop 11/27/16 at 08:25; Status DC Insulin Aspart (Novolog) 0-7 UNITS TIDWMEALS SQ ; Start 11/24/16 at 08:00; Stop 11/24/16 at 15:36; Status DC Dextrose 12.5 gm 12.5 gm PRN Q15MIN PRN IV SEE COMMENTS; Start 11/24/16 at 07: 45; Stop 11/25/16 at 23:34; Status DC Sodium Chloride (Iv Sodium Chloride 0.9% 1000ml Bag) 1,000 ml @ 125 mls/hr 1X ONCE IV Last administered on 11/24/16 07:52; Start 11/24/16 at 08:00; Stop at 08:20; Status DC Vancomycin HCl (Vanco Per Pharmacy) 1 each PRN DAILY PRN MC SEE COMMENTS Last administered on 11/24/16 11:26; Start 11/24/16 at 08:15; Stop 11/24/16 at 13:06 ; Status DC Piperacillin Sod/ Tazobactam Sod 1 each 1 each PRN DAILY PRN MC SEE COMMENTS; Start 11/24/16 at 08:15; Stop 11/24/16 at 13:06; Status DC Sodium Bicarbonate 50 meq/Sodium Chloride 1,050 ml @ 125 mls/hr Q8H24M IV Last administered on 11/26/16 11:24; Start 11/24/16 at 08:30; Stop 11/26/16 at 12:41; Status DC Vancomycin HCl 2 gm/Sodium Chloride 500 ml @ 250 mls/hr ONCE ONCE IV Last administered on 11/24/16 10:15; Start 11/24/16 at 08:30; Stop 11/24/16 at 10:29 ; Status DC Piperacillin Sod/ Tazobactam Sod 4.5 gm/Sodium Chloride 100 ml @ 200 mls/hr Q6HRS IV Last administered on 11/24/16 10:10; Start 11/24/16 at 08:30; Stop at 11:15; Status DC Sodium Chloride (Iv Sodium Chloride 0.9% 1000ml Bag) 1,000 ml @ 1,000 mls/hr Q1H IV Last administered on 11/24/16 10:09; Start 11/24/16 at 08:39; Stop at 11:47; Status DC Fentanyl Citrate (Fentanyl 2ml Vial) 25 mcg PRN Q30MIN PRN IV SED Last administered on 11/30/16 17:24; Start 11/24/16 at 08:45; Stop 12/04/16 at 06:29 ; Status DC Lorazepam 1 mg 1 mg PRN Q30MIN PRN IV SEDATION Last administered on 11/25/16 12:26; Start 11/24/16 at 08:45; Stop 11/28/16 at 19:45; Status DC Fentanyl Citrate 30 ml @ 2.5 mls/hr CONT PRN PRN IV IVF Last administered on 07:40; Start 11/24/16 at 08:45; Stop 11/26/16 at 17:49; Status DC Propofol (Diprivan) 100 ml @ 0 mls/hr CONT PRN IV SEE I/O RECORD Last administered on 11/26/16 07:38; Start 11/24/16 at 08:45; Stop 11/26/16 at 17:49 ; Status DC Vecuronium [place] (Norcuron Bolus) 9 mg PRN Q30MIN PRN IV SHIVERING Last administered on 11/24/16 17:38; Start 11/24/16 at 08:45; Stop 11/26/16 at 17:49 ; Status DC Meperidine HCl (Demerol) 12.5 mg PRN Q30MIN PRN IV SHIVERING Last administered on 11/24/16 22:21; Start 11/24/16 at 08:45; Stop 11/24/16 at 22:21; Status DC Multi-Ingred Cream/Lotion/Oil/ Oint (Artificial Tears Eye Oint) 1 radha PRN Q6HRS PRN OU 0.5 INCH FOR DRY EYE; Start 11/24/16 at 08:45 Famotidine (Pepcid) 20 mg QHS IVP Last administered on 11/27/16 21:12; Start 11/24/16 at 21:00; Stop 11/28/16 at 09:46; Status DC Aspirin (Aspirin) 300 mg DAILY [place] Last administered on 12/06/16 10:21; Start at 09:00 Sodium Chloride (Normal Saline Flush) 3 ml QSHIFT PRN IV AFTER MEDS AND BLOOD DRAWS; Start 11/24/16 at 08:45 Acetaminophen (Tylenol) 650 mg Q6HRS NG ; Start 11/24/16 at 12:00; Stop at 11:59; Status DC Acetaminophen (Tylenol) 650 mg PRN Q6HRS PRN NJ MILD PAIN / TEMP; Start at 08:45; Stop 11/25/16 at 23:35; Status DC Acetaminophen (Tylenol) 650 mg PRN Q6HRS PRN NG MILD PAIN / TEMP; Start at 08:45 Info 1 ea 1 ea DAILY PRN MC PER PROTOCOL; Start 11/26/16 at 08:45; Stop at 09:17; Status DC Insulin Human Regular 150 unit/ Sodium Chloride 151.5 ml @ 9.16 mls/hr CONT PRN IV SEE I/O RECORD Last administered on 11/24/16 10:13; Start 11/24/16 at 09 :30; Stop 11/27/16 at 08:25; Status DC Piperacillin Sod/ Tazobactam Sod 3.375 gm/Sodium Chloride 50 ml @ 100 mls/hr Q6HRS IV ; Start 11/24/16 at 18:00; Stop 11/24/16 at 18:00; Status DC Vancomycin HCl/ Sodium Chloride (Iv Sodium Chloride 0.9% 500ml Bag) 500 ml @ 250 mls/hr Q24H IV ; Start 11/25/16 at 10:00; Stop 11/25/16 at 10:00; Status DC Vancomycin HCl 1 each 1 each 1X ONCE MC ; Start 11/26/16 at 09:30; Stop at 09:30; Status DC Sodium Chloride (Iv Sodium Chloride 0.9% 1000ml Bag) 1,000 ml @ 1,000 mls/hr 1X ONCE IV Last administered on 11/24/16 11:00; Start 11/24/16 at 11:00; Stop 11/24/16 at 11:59; Status DC Insulin Detemir (Levemir) 12 units QHS SQ ; Start 11/24/16 at 21:00; Stop at 21:00; Status DC Insulin Aspart (Novolog) 10 units 1X ONCE SQ ; Start 11/24/16 at 15:30; Stop at 20:10; Status DC Insulin Aspart (Novolog) 0-7 UNITS Q4HRS SQ ; Start 11/24/16 at 16:00; Stop at 20:10; Status DC Heparin Sodium (Porcine) 8100 unit 8,100 unit 1X ONCE IV Last administered on 11/24/16 17:24; Start 11/24/16 at 17:00; Stop 11/24/16 at 17:01; Status DC Heparin Sodium/ Dextrose 500 ml @ 0 mls/hr CONT PRN IV SEE I/O RECORD Last administered on 11/28/16 02:06; Start 11/24/16 at 16:45; Stop 11/28/16 at 17:12 ; Status DC Heparin Sodium (Porcine) 3,000 unit PRN Q6HRS PRN IV FOR UFH LEVEL LESS THAN 0.2; Start 11/24/16 at 16:45; Stop 11/28/16 at 17:12; Status DC Heparin Sodium (Porcine) 1,500 unit PRN Q6HRS PRN IV FOR UFH LEVEL 0.2 - 0.29 Last administered on 11/26/16 12:08; Start 11/24/16 at 16:45; Stop 11/28/16 at 17:12; Status DC Info 1 each 1 each PRN DAILY PRN MC SEE COMMENTS Last administered on 10:03; Start 11/24/16 at 17:00; Stop 11/28/16 at 17:13; Status DC Piperacillin Sod/ Tazobactam Sod 3.375 gm/Sodium Chloride 50 ml @ 100 mls/hr Q6HRS IV Last administered on 12/06/16 13:06; Start 11/25/16 at 00:00 Vancomycin HCl/ Sodium Chloride (Iv Sodium Chloride 0.9% 250ml) 250 ml @ 250 mls/hr 1X ONCE IV ; Start 11/24/16 at 21:30; Stop 11/24/16 at 22:29; Status UNV Vancomycin HCl 1 each 1 each PRN DAILY PRN MC SEE COMMENTS Last administered on 11/25/16 03:30; Start 11/25/16 at 01:00; Stop 11/25/16 at 08:57; Status DC Vancomycin HCl/ Sodium Chloride (Iv Sodium Chloride 0.9% 500ml Bag) 500 ml @ 250 mls/hr Q24H IV ; Start 11/25/16 at 10:00; Stop 11/25/16 at 10:00; Status DC Vancomycin HCl 1 each 1X ONCE MC ; Start 11/26/16 at 09:30; Stop 11/26/16 at 09 :30; Status DC Enoxaparin Sodium (Lovenox Per Pharmacy Prophylaxis Dosing) 1 each PRN DAILY PRN MC SEE COMMENTS; Start 11/25/16 at 08:45; Status UNV Chlorhexidine Gluconate 15 ml 15 ml BID MM Last administered on 11/26/16 08:37 ; Start 11/25/16 at 21:00; Stop 11/26/16 at 17:49; Status DC Magnesium Sulfate/ Dextrose 50 ml @ 25 mls/hr PRN DAILY PRN IV for Mag < 1.7 on am labs Last administered on 11/26/16 05:29; Start 11/25/16 at 09:45; Stop 11/27/16 at 08:47; Status DC Magnesium Sulfate/ Dextrose 50 ml @ 25 mls/hr PRN DAILY PRN IV for Mag < 1.7 on am labs; Start 11/25/16 at 09:45; Status UNV Sodium Chloride 500 ml @ 0 mls/hr QID PRN IV UO< 30cc/hr over previous 6hrs Last administered on 11/25/16 10:54; Start 11/25/16 at 09:45; Stop 11/27/16 at 11:25; Status DC Magnesium Sulfate/ Dextrose (Magnesium Sulfate PREMIX 2GM) 50 ml @ 25 mls/hr 1X ONCE IV Last administered on 11/25/16 13:28; Start 11/25/16 at 12:30; Stop 11/25/16 at 14:29; Status DC Lidocaine/Sodium Bicarbonate 20 ml 20 ml STK-MED ONCE IJ ; Start 11/25/16 at 12: 35; Stop 11/25/16 at 12:36; Status DC Heparin Sodium/ Sodium Chloride 500 ml @ As Directed STK-MED ONCE .ROUTE ; Start 11/25/16 at 12:35; Stop 11/25/16 at 12:36; Status DC Lidocaine/Sodium Bicarbonate (Buffered Lidocaine 1%) 3 ml 1X ONCE IJ Last administered on 11/25/16 13:15; Start 11/25/16 at 13:15; Stop 11/25/16 at 13:16 ; Status DC Heparin Sodium/ Sodium Chloride 60 unit 1X ONCE IV Last administered on 13:16; Start 11/25/16 at 13:15; Stop 11/25/16 at 13:16; Status DC Amiodarone HCl (Cordarone) 450 mg STK-MED ONCE .ROUTE ; Start 11/25/16 at 12:00 ; Stop 11/25/16 at 14:56; Status DC Epinephrine HCl (Adrenalin) 30 mg STK-MED ONCE .ROUTE ; Start 11/25/16 at 12:00 ; Stop 11/25/16 at 14:56; Status DC Atropine Sulfate 1.5 mg STK-MED ONCE .ROUTE ; Start 11/25/16 at 12:00; Stop at 14:56; Status DC Epinephrine HCl 4 mg STK-MED ONCE .ROUTE ; Start 11/25/16 at 12:00; Stop at 14:56; Status DC Sodium Bicarbonate 150 meq 150 meq STK-MED ONCE .ROUTE ; Start 11/25/16 at 12:00 ; Stop 11/25/16 at 14:56; Status DC Midazolam HCl (Versed 100mg/ 100ml Premix) 100 ml @ 0 mls/hr CONT PRN IV SEE I/ O RECORD; Start 11/25/16 at 23:30; Stop 11/26/16 at 17:49; Status DC Insulin Aspart (Novolog) 0-7 UNITS TIDWMEALS SQ Last administered on 11/27/16 19:43; Start 11/26/16 at 08:00; Stop 11/28/16 at 01:01; Status DC Dextrose 12.5 gm PRN Q15MIN PRN IV SEE COMMENTS; Start 11/25/16 at 23:30; Stop 12/05/16 at 14:19; Status DC Acetaminophen 650 mg 650 mg PRN Q6HRS PRN NJ MILD PAIN / TEMP Last administered on 11/28/16 04:19; Start 11/25/16 at 23:30; Stop 12/02/16 at 13:29 ; Status DC Potassium Chloride 50 ml @ 50 mls/hr Q1H IV Last administered on 11/26/16 11: 23; Start 11/26/16 at 10:30; Stop 11/26/16 at 12:29; Status DC Sodium Bicarbonate/ Sterile Water 1,100 ml @ 100 mls/hr Q11H IV Last administered on 11/27/16 00:56; Start 11/26/16 at 13:00; Stop 11/27/16 at 11:25 ; Status DC Info 1 each 1 each PRN DAILY PRN MC SEE COMMENTS Last administered on 12/06/16 13:18; Start 11/26/16 at 12:45 Calcium Chloride/ Sodium Chloride (Iv Sodium Chloride 0.9% 100ml) 120 ml @ 240 mls/hr 1X ONCE IV Last administered on 11/26/16 13:22; Start 11/26/16 at 13: 15; Stop 11/26/16 at 13:44; Status DC Ondansetron HCl 4 mg 4 mg PRN Q6HRS PRN IV NAUSEA/VOMITING Last administered on 12/03/16 21:17; Start 11/26/16 at 13:45; Stop 12/04/16 at 06:30; Status DC Sodium Chloride/ Potassium Chloride/ Magnesium Sulfate/ Calcium Gluconate/ Multivitamins/ Chromium/Copper/ Manganese/Seleni/ Zn/Total Parenteral Nutrition/ Amino Acids/Dextrose/ Fat Emulsion Intravenous (Sodium Chloride/ Infuvite Adult / Multitrace-5 Conc/ Tpn - Tpn Fluid/ Trophami... 1,594.468 ml @ 66.436 m... TPN CONT IV Last administered on 11/26/16 21:27; Start 11/26/16 at 22:00; Stop 11/27/16 at 21:59; Status DC Albuterol Sulfate 2.5 mg 2.5 mg 1X ONCE NEB Last administered on 11/27/16 07: 21; Start 11/27/16 at 06:45; Stop 11/27/16 at 06:46; Status DC Magnesium Sulfate/ Dextrose 50 ml @ 25 mls/hr PRN DAILY PRN IV for Mag < 1.7 on am labs; Start 11/27/16 at 08:45 Sodium Chloride 90 meq/Potassium Chloride 50 meq/ Magnesium Sulfate 10 meq/ Calcium Gluconate 10 meq/ Multivitamins 10 ml/Chromium/ Copper/Manganese/ Seleni /Zn 1 ml/ Total Parenteral Nutrition/Amino Acids/Dextrose/ Fat Emulsion Intravenous 1,594.468 ml @ 66.436 m... TPN CONT IV ; Start 11/27/16 at 22:00; Stop 11/28/16 at 21:59; Status Cancel Potassium Chloride/ Magnesium Sulfate/ Calcium Gluconate/ Multivitamins/ Chromium/Copper/ Manganese/Seleni/ Zn/Total Parenteral Nutrition/Amino Acids/ Dextrose/ Fat Emulsion Intravenous (Infuvite Adult/ Multitrace-5 Conc/ Tpn - Tpn Fluid/ Trophamine/ Dextrose 70%-Water Iv So... 1,512 ml @ 63 mls/hr TPN CONT IV Last administered on 11/27/16 21:22; Start 11/27/16 at 22:00; Stop at 21:59; Status DC Nitroglycerin 0.4 mg 0.4 mg STK-MED ONCE SL Last administered on 11/27/16 11: 26; Start 11/27/16 at 11:16; Stop 11/27/16 at 11:17; Status DC Albumin Human (Albuminar) 100 ml @ 100 mls/hr TID IV Last administered on 11/29 08:56; Start 11/27/16 at 12:00; Stop 11/29/16 at 09:59; Status DC Sodium Bicarbonate 50 meq 1X ONCE IV Last administered on 11/27/16 13:24; Start 11/27/16 at 12:45; Stop 11/27/16 at 12:46; Status DC Hydralazine HCl (Apresoline) 10 mg PRN Q4HRS PRN IVP ELEVATED BP, SEE COMMENTS Last administered on 12/03/16 20:18; Start 11/27/16 at 12:45 Metoprolol Tartrate (Lopressor) 5 mg Q6HRS IVP Last administered on 11/27/16 15:40; Start 11/27/16 at 15:30; Stop 11/27/16 at 19:11; Status DC Metoprolol Tartrate 5 mg 5 mg Q6HRS@04,10,16,22 IVP Last administered on 10:21; Start 11/27/16 at 22:00 Nicardipine HCl/ Sodium Chloride (Cardene/Iv Sodium Chloride 0.9% 250ml) 270 ml @ 0 mls/hr CONT PRN IV SEE I/O RECORD Last administered on 11/28/16 01:13; Start 11/27/16 at 20:45; Stop 12/05/16 at 09:17; Status DC Vancomycin HCl 1 each 1 each PRN DAILY PRN MC SEE COMMENTS Last administered on 11/27/16 21:38; Start 11/27/16 at 22:00; Stop 11/28/16 at 08:30; Status DC Vancomycin HCl 2 gm/Sodium Chloride 500 ml @ 250 mls/hr 1X ONCE IV Last administered on 11/27/16 22:57; Start 11/27/16 at 22:00; Stop 11/27/16 at 23:59 ; Status DC Vancomycin HCl/ Sodium Chloride (Iv Sodium Chloride 0.9% 500ml Bag) 500 ml @ 250 mls/hr Q24H IV ; Start 11/28/16 at 22:00; Stop 11/28/16 at 22:00; Status DC Vancomycin HCl 1 each 1X ONCE MC ; Start 11/29/16 at 21:30; Stop 11/29/16 at 21 :30; Status DC Insulin Aspart (Novolog) 0-7 UNITS Q6HRS SQ Last administered on 12/06/16 13:11 ; Start 11/28/16 at 01:00 Linezolid 600 mg 600 mg BID PO ; Start 11/28/16 at 09:00; Stop 11/28/16 at 19:45 ; Status DC Pantoprazole Sodium/Sodium Chloride (Protonix Iv/Iv Sodium Chloride 0.9% 100ml) 100 ml @ 10 mls/hr Q10H PRN IV . Last administered on 12/01/16 13:01; Start 11/28/16 at 10:00; Stop 12/01/16 at 15:59; Status DC Ipratropium [place] (Atrovent) 0.5 mg RTQID NEB Last administered on 12/06/16 11:55; Start 11/28/16 at 12:00 Budesonide (Pulmicort) 0.5 mg RTBID NEB Last administered on 12/06/16 07:36; Start 11/28/16 at 20:00 Furosemide 40 mg 40 mg 1X ONCE IVP Last administered on 11/28/16 12:15; Start 11/28/16 at 12:15; Stop 11/28/16 at 12:16; Status DC Potassium Chloride/ Magnesium Sulfate/ Calcium Gluconate/ Multivitamins/ Chromium/Copper/ Manganese/Seleni/ Zn/Total Parenteral Nutrition/Amino Acids/ Dextrose/ Fat Emulsion Intravenous (Calcium Gluconate/ Infuvite Adult/ Multitrace-5 Conc/ Tpn - Tpn Fluid/ Trophami... 1,512 ml @ 63 mls/hr TPN CONT IV Last administered on 11/28/16 21:18; Start 11/28/16 at 22:00; Stop at 21:59; Status DC Lidocaine/Sodium Bicarbonate (Buffered Lidocaine 1%) 3 ml 1X ONCE IJ Last administered on 11/28/16 15:45; Start 11/28/16 at 14:45; Stop 11/28/16 at 14:46 ; Status DC Heparin Sodium/ Sodium Chloride 60 unit 1X ONCE IV Last administered on 15:45; Start 11/28/16 at 14:45; Stop 11/28/16 at 14:46; Status DC Heparin Sodium (Porcine) 2500 unit 2,500 unit 1X ONCE INT CAT Last administered on 11/28/16 15:45; Start 11/28/16 at 14:45; Stop 11/28/16 at 14:46 ; Status DC Linezolid 300 ml @ 300 mls/hr Q12HR IV Last administered on 12/01/16 21:13; Start 11/28/16 at 21:00; Stop 12/02/16 at 08:23; Status DC Potassium Chloride/ Potassium Acetate/ Magnesium Sulfate/ Calcium Gluconate/ Multivitamins/ Chromium/Copper/ Manganese/Seleni/ Zn/Total Parenteral Nutrition/ Amino Acids/Dextrose/ Fat Emulsion Intravenous (Calcium Gluconate/ Infuvite Adult/ Multitrace-5 Conc/ Tpn - Tpn Flu... 1,512 ml @ 63 mls/hr TPN CONT IV Last administered on 11/29/16 21:54; Start 11/29/16 at 22:00; Stop 11/30/16 at 21:59; Status DC Iohexol (Omnipaque 300 Mg/ml) 100 ml STK-MED ONCE .ROUTE ; Start 11/29/16 at 09: 12; Stop 11/29/16 at 09:13; Status DC Lidocaine/Sodium Bicarbonate 20 ml 20 ml STK-MED ONCE IJ ; Start 11/29/16 at 09: 12; Stop 11/29/16 at 09:13; Status DC Heparin Sodium/ Sodium Chloride 500 ml @ As Directed STK-MED ONCE .ROUTE ; Start 11/29/16 at 09:12; Stop 11/29/16 at 09:13; Status DC Lidocaine/Sodium Bicarbonate (Buffered Lidocaine 1%) 2 ml 1X ONCE IJ Last administered on 11/29/16 10:22; Start 11/29/16 at 10:00; Stop 11/29/16 at 10:15 ; Status DC Iohexol (Omnipaque 300 Mg/ml) 30 ml 1X ONCE IART Last administered on 10:22; Start 11/29/16 at 10:00; Stop 11/29/16 at 10:15; Status DC Heparin Sodium/ Sodium Chloride 1,000 unit 1X ONCE IV Last administered on 10:21; Start 11/29/16 at 10:00; Stop 11/29/16 at 10:15; Status DC Info 1 each 1 each PRN DAILY PRN MC SEE COMMENTS; Start 11/29/16 at 10:30; Stop 12/01/16 at 10:29; Status DC Heparin Sodium/ Dextrose 500 ml @ 0 mls/hr CONT PRN IV SEE I/O RECORD; Start at 15:15; Status UNV Heparin Sodium/ Dextrose 500 ml @ 0 mls/hr CONT PRN IV SEE I/O RECORD Last administered on 12/04/16 19:23; Start 11/29/16 at 15:15; Stop 12/05/16 at 08:51 ; Status DC Nitroglycerin/ Dextrose 250 ml @ 0 mls/hr CONT PRN IV SEE I/O RECORD Last administered on 11/30/16 10:53; Start 11/30/16 at 10:45; Stop 12/05/16 at 09:17 ; Status DC Potassium Acetate/ Potassium Phosphate/ Magnesium Sulfate/ Calcium Gluconate/ Multivitamins/ Chromium/Copper/ Manganese/Seleni/ Zn/Insulin Human Regular/ Total Parenteral Nutrition/Amino Acids/Dextrose/ Fat Emulsion Intravenous ( Potassium Phosphate/Calcium Gluconate/ Infuvite Asim... 1,472.1 ml @ 63 mls/hr TPN CONT IV Last administered on 11/30/16 21:31; Start 11/30/16 at 22:00; Stop 12/01/16 at 21:21; Status DC Furosemide 40 mg 40 mg 1X ONCE IVP Last administered on 11/30/16 15:02; Start 11/30/16 at 15:00; Stop 11/30/16 at 15:01; Status DC Iron Sucrose/ Sodium Chloride (Venofer/Iv Sodium Chloride 0.9% 250ml) 275 ml @ 78.571 mls/ hr 1X ONCE IV Last administered on 12/01/16 09:58; Start at 09:00; Stop 12/01/16 at 12:29; Status DC Insulin Detemir (Levemir) 12 units QHS SQ Last administered on 12/03/16 21:28 ; Start 12/01/16 at 21:00; Stop 12/04/16 at 16:49; Status DC Info 1 each 1 each PRN DAILY PRN MC SEE COMMENTS Last administered on 12:18; Start 12/01/16 at 10:45; Stop 12/05/16 at 09:17; Status DC Potassium Acetate/ Potassium Phosphate/ Magnesium Sulfate/ Calcium Gluconate/ Multivitamins/ Chromium/Copper/ Manganese/Seleni/ Zn/Insulin Human Regular/ Total Parenteral Nutrition/Amino Acids/Dextrose/ Fat Emulsion Intravenous ( Potassium Phosphate/Calcium Gluconate/ Infuvite Asim... 1,512 ml @ 64.708 mls/ hr TPN CONT IV Last administered on 12/01/16 22:20; Start 12/01/16 at 22:00; Stop 12/02/16 at 21:21; Status DC Pantoprazole Sodium (Protonix Vial) 40 mg DAILYAC IVP Last administered on 12/04 10:37; Start 12/02/16 at 07:30; Stop 12/05/16 at 06:27; Status DC Acetaminophen 650 mg 650 mg 1X PRN PRN PO PRN prior to blood transfusion; Start 12/02/16 at 06:30; Stop 12/03/16 at 06:29; Status DC Potassium Acetate/ Potassium Phosphate/ Magnesium Sulfate/ Calcium Gluconate/ Multivitamins/ Chromium/Copper/ Manganese/Seleni/ Zn/Insulin Human Regular/ Total Parenteral Nutrition/Amino Acids/Dextrose/ Fat Emulsion Intravenous ( Potassium Phosphate/Calcium Gluconate/ Infuvite Asim... 1,512 ml @ 64.708 mls/ hr TPN CONT IV Last administered on 12/02/16 21:46; Start 12/02/16 at 22:00; Stop 12/03/16 at 21:21; Status DC Furosemide (Lasix) 40 mg DAILY IVP Last administered on 12/03/16 08:47; Start 12/02/16 at 12:30; Stop 12/04/16 at 06:30; Status DC Acetaminophen (Acetaminophen Supp) 650 mg PRN Q6HRS PRN [place] MILD PAIN / TEMP; Start 12/02/16 at 13:30; Stop 12/02/16 at 13:36; Status DC Acetaminophen 650 mg 650 mg PRN Q6HRS PRN [place] MILD PAIN / TEMP; Start 12/02/16 at 13:45 Potassium Acetate/ Potassium Phosphate/ Magnesium Sulfate/ Calcium Gluconate/ Multivitamins/ Chromium/Copper/ Manganese/Seleni/ Zn/Insulin Human Regular/ Total Parenteral Nutrition/Amino Acids/Dextrose/ Fat Emulsion Intravenous ( Potassium Phosphate/Calcium Gluconate/ Infuvite Asim... 1,512 ml @ 63 mls/hr TPN CONT IV Last administered on 12/03/16t 21:05; Start 12/03/16 at 22:00; Stop 12/04/16 at 21:59; Status DC Fentanyl Citrate (Fentanyl 2ml Vial) 25 mcg PRN Q30MIN PRN IV SED; Start at 06:29; Stop 12/05/16 at 09:17; Status DC Ondansetron HCl (Zofran) 4 mg PRN Q6HRS PRN IV NAUSEA/VOMITING; Start 12/04/16 at 06:30 Furosemide (Lasix) 40 mg DAILY IVP Last administered on 12/06/16t 10:20; Start 12/04/16 at 06:30 Lidocaine HCl 20 ml 20 ml STK-MED ONCE .ROUTE ; Start 12/04/16 at 07:02; Stop at 07:03; Status DC Heparin Sodium/ Sodium Chloride 1,500 ml @ As Directed STK-MED ONCE .ROUTE ; Start 12/04/16 at 07:02; Stop 12/04/16 at 07:03; Status DC Iodixanol (Visipaque 320) 100 ml STK-MED ONCE .ROUTE ; Start 12/04/16 at 07:02; Stop 12/04/16 at 07:03; Status DC Nitroglycerin (Nitroglycerin) 200 mcg STK-MED ONCE .ROUTE ; Start 12/04/16 at 07 :05; Stop 12/04/16 at 07:06; Status DC Verapamil HCl (Verapamil) 5 mg STK-MED ONCE .ROUTE ; Start 12/04/16 at 07:05; Stop 12/04/16 at 07:06; Status DC Midazolam HCl (Versed) 2 mg STK-MED ONCE .ROUTE ; Start 12/04/16 at 07:05; Stop 12/04/16 at 07:06; Status DC Fentanyl Citrate (Fentanyl 2ml Vial) 100 mcg STK-MED ONCE .ROUTE ; Start at 07:05; Stop 12/04/16 at 07:06; Status DC Heparin Sodium (Porcine) 10,000 unit STK-MED ONCE .ROUTE ; Start 12/04/16 at 07: 05; Stop 12/04/16 at 07:06; Status DC Nitroglycerin (Nitroglycerin) 200 mcg STK-MED ONCE .ROUTE ; Start 12/04/16 at 07 :17; Stop 12/04/16 at 07:18; Status DC Verapamil HCl (Verapamil) 5 mg STK-MED ONCE .ROUTE ; Start 12/04/16 at 07:18; Stop 12/04/16 at 07:19; Status DC Nitroglycerin (Nitroglycerin) 200 mcg 1X ONCE IART Last administered on 07:42; Start 12/04/16 at 07:45; Stop 12/04/16 at 07:46; Status DC Verapamil HCl (Verapamil) 2.5 mg 1X ONCE IART Last administered on 12/04/16 07:43; Start 12/04/16 at 07:45; Stop 12/04/16 at 07:46; Status DC Heparin Sodium/ Sodium Chloride 1,000 unit 1X ONCE IART Last administered on 07:43; Start 12/04/16 at 07:45; Stop 12/04/16 at 07:46; Status DC Midazolam HCl (Versed) 0.5 mg 1X ONCE IV Last administered on 12/04/16 07:44 ; Start 12/04/16 at 07:45; Stop 12/04/16 at 07:46; Status DC Fentanyl Citrate (Fentanyl 2ml Vial) 25 mcg 1X ONCE IV Last administered on 07:44; Start 12/04/16 at 07:45; Stop 12/04/16 at 07:46; Status DC Iodixanol (Visipaque 320) 100 ml 1X ONCE IART Last administered on 12/04/16 07:42; Start 12/04/16 at 07:45; Stop 12/04/16 at 07:46; Status DC Lidocaine HCl 20 ml 1X ONCE IJ Last administered on 12/04/16 07:43; Start at 07:45; Stop 12/04/16 at 07:46; Status DC Info 1 each 1 each PRN DAILY PRN MC SEE COMMENTS; Start 12/04/16 at 07:45; Stop 12/06/16 at 07:44; Status DC Potassium Acetate/ Potassium Phosphate/ Magnesium Sulfate/ Calcium Gluconate/ Multivitamins/ Chromium/Copper/ Manganese/Seleni/ Zn/Insulin Human Regular/ Total Parenteral Nutrition/Amino Acids/Dextrose/ Fat Emulsion Intravenous ( Potassium Phosphate/Calcium Gluconate/ Infuvite Asim... 1,512 ml @ 63 mls/hr TPN CONT IV Last administered on 12/04/16 22:47; Start 12/04/16 at 22:00; Stop 12/05/16 at 21:59; Status DC Lidocaine HCl 20 ml 20 ml STK-MED ONCE .ROUTE ; Start 12/04/16 at 12:59; Stop at 13:00; Status DC Heparin Sodium/ Sodium Chloride 1,000 ml @ As Directed STK-MED ONCE .ROUTE ; Start 12/04/16 at 12:59; Stop 12/05/16 at 08:51; Status DC Iodixanol (Visipaque 320) 100 ml STK-MED ONCE .ROUTE ; Start 12/04/16 at 12:59; Stop 12/04/16 at 13:00; Status DC Insulin Detemir (Levemir) 25 units QHS SQ ; Start 12/04/16 at 21:00; Stop at 21:00; Status DC Insulin Detemir (Levemir) 20 units QHS SQ Last administered on 12/05/16 21:15 ; Start 12/04/16 at 21:00 Morphine Sulfate 2 mg PRN Q2HR PRN IV PAIN Last administered on 12/04/16 19:20 ; Start 12/04/16 at 19:15 Morphine Sulfate 4 mg PRN Q2HR PRN IV PAIN; Start 12/04/16 at 19:15; Stop 12/05 at 09:17; Status DC Pantoprazole Sodium (Protonix Vial) 40 mg DAILYAC IVP Last administered on 10:21; Start 12/05/16 at 06:27 Verapamil HCl (Verapamil) 5 mg STK-MED ONCE .ROUTE ; Start 12/04/16 at 07:30; Stop 12/05/16 at 08:38; Status DC Enoxaparin Sodium (Lovenox Per Pharmacy Treatment Dosing) 1 each PRN DAILY PRN MC SEE COMMENTS; Start 12/05/16 at 09:00 Enoxaparin Sodium (Lovenox 100mg Syringe) 100 mg Q12HR SQ Last administered on 12/06/16 10:22; Start 12/05/16 at 09:00 Info 1 each 1 each PRN DAILY PRN MC SEE COMMENTS Last administered on 12/06/16 13:44; Start 12/05/16 at 10:15 Potassium Acetate/ Potassium Phosphate/ Magnesium Sulfate/ Calcium Gluconate/ Multivitamins/ Chromium/Copper/ Manganese/Seleni/ Zn/Insulin Human Regular/ Total Parenteral Nutrition/Amino Acids/Dextrose/ Fat Emulsion Intravenous ( Potassium Phosphate/Calcium Gluconate/ Infuvite Asim... 1,512 ml @ 63 mls/hr TPN CONT IV Last administered on 12/05/16 21:14; Start 12/05/16 at 22:00; Stop 12/06/16 at 21:59 Barium Sulfate (Varibar Thin Liquid Apple) 148 gm 1X ONCE PO Last administered on 12/05/16 13:56; Start 12/05/16 at 14:00; Stop 12/05/16 at 14:01 ; Status DC Dextrose 12.5 gm 12.5 gm PRN Q15MIN PRN IV SEE COMMENTS; Start 12/05/16 at 14: 19 Potassium Acetate/ Potassium Phosphate/ Magnesium Sulfate/ Calcium Gluconate/ Multivitamins/ Chromium/Copper/ Manganese/Seleni/ Zn/Insulin Human Regular/ Total Parenteral Nutrition/Amino Acids/Dextrose/ Fat Emulsion Intravenous ( Potassium Phosphate/Calcium Gluconate/ Infuvite Asim... 1,512 ml @ 63 mls/hr TPN CONT IV ; Start 12/06/16 at 22:00; Stop 12/07/16 at 21:59 Vitals/I & O Vital Sign - Last 24 Hours 12/05/16 12/05/16 12/05/16 12/05/16 14:47 14:51 17:52 19:21 Temp 97.8 99.3 97.8 99.3 Pulse 92 92 96 Resp 18 16 B/P 155/75 155/75 152/74 Pulse Ox 98 96 94 O2 Delivery Nasal Cannula Nasal Cannula Nasal Cannula O2 Flow Rate 3.0 2.0 2.0 12/05/16 12/05/16 12/05/16 12/05/16 19:40 20:06 21:16 22:41 Temp 97.7 97.7 Pulse 96 91 Resp 18 B/P 152/74 159/80 Pulse Ox 97 93 O2 Delivery Nasal Cannula Nasal Cannula Nasal Cannula O2 Flow Rate 3.0 3.0 3.0 12/06/16 12/06/16 12/06/16 12/06/16 02:53 03:07 07:00 07:36 Temp 97.8 97.7 97.8 97.7 Pulse 91 91 93 Resp 18 18 B/P 155/84 155/84 158/76 Pulse Ox 94 96 96 O2 Delivery Nasal Cannula Nasal Cannula Nasal Cannula O2 Flow Rate 3.0 2.0 3.0 12/06/16 12/06/16 12/06/16 12/06/16 08:00 10:21 11:00 11:57 Temp 97.9 97.9 Pulse 96 Resp 18 B/P 158/76 150/83 Pulse Ox 98 96 O2 Delivery Nasal Cannula Nasal Cannula Nasal Cannula O2 Flow Rate 3.0 2.0 3.0 Intake and Output 12/05/16 12/05/16 12/06/16 14:59 22:59 06:59 Intake Total 0 ml 0 ml Output Total 800 ml 1125 ml 800 ml Balance -800 ml -1125 ml -800 ml LUANA FENG III DO Dec 06, 2016 14:20
--- NOTE | 2016-12-06 15:12 | PDOC ---
SUBJECTIVE ROS [place] vs ? CKD III doing so much better CVS: no Orthopnea, no CP RESP: no SOB, min ZARATE GI: no Nausea, no Vomiting : no Dysuria, no Urgency OBJECTIVE Vital Signs Vital Signs Date Time Temp Pulse Resp B/P Pulse Ox O2 Delivery O2 Flow Rate FiO2 12/06/16 11:57 96 Nasal Cannula 3.0 12/06/16 11:00 97.9 96 18 150/83 97.9 I & 0 Intake and Output 12/06/16 06:59 Intake Total 0 ml Output Total 2725 ml Balance -2725 ml Intake Oral 0 ml Output Urine Total 2725 ml PHYSICAL EXAM Physical Exam General Appearance: remains on the BiPAP In no Distress Eyes: VIsion Unchanged Conjunctiva Normal EN: No EN Drainage Mucous Memb. dryish Neck: no JVD min JVP Supple no Thyromegaly CVS: S1 S2 no audible Murmur No Gallop No Rub no Edema Resp: no Rales no Rhonchi no Acc. Muscle use GI: BS +ve NO Bruit Non Tender Non Distended : no CVA tenderness; no Suprapubic Tenderness Assessment & Plan [place]: cannot R/o ATN. Creat is stable at this time. ? CKD - Current FLuid and E-lyte status does not necessitate emergent need for Dialysis. Edema - Fluid balance is -ve, CXR noted and so decrease lasix Nutrition - ? 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 anemia - ct EPO, COMMENT/RELEVANT DATA Meds Current Medications Medications (Trade) Dose Ordered Sig/Kika Start Time Stop Time Status Last Admin Dose Admin Acetaminophen (Acetaminophen Supp) 650 mg PRN Q6HRS PRN 12/02/16 13:45 Acetaminophen (Tylenol) 650 mg 1X PRN PRN 12/02/16 06:30 12/03/16 06:29 DC Acetaminophen 650 mg 650 mg PRN Q6HRS PRN 11/25/16 23:30 12/02/16 13:29 DC 11/28/16 04:19 650 MG Albumin Human (Albuminar) 100 ml @ 100 mls/hr TID 11/27/16 12:00 11/29/16 09:59 DC 11/29/16 08:56 100 MLS/HR Albuterol Sulfate 2.5 mg 2.5 mg 1X ONCE 11/27/16 06:45 11/27/16 06:46 DC 11/27/16 07:21 2.5 MG Amiodarone HCl (Cordarone) 450 mg STK-MED ONCE 11/25/16 12:00 11/25/16 14:56 DC Aspirin (Aspirin) 300 mg DAILY 11/24/16 09:00 12/06/16 10:21 300 MG Atropine Sulfate 1.5 mg STK-MED ONCE 11/25/16 12:00 11/25/16 14:56 DC Barium Sulfate (Varibar Thin Liquid Apple) 148 gm 1X ONCE 12/05/16 14:00 12/05/16 14:01 DC 12/05/16 13:56 148 GM Budesonide 0.5 mg 0.5 mg RTBID 11/28/16 20:00 12/06/16 07:36 0.5 MG Calcium Chloride/ Sodium Chloride (Iv Sodium Chloride 0.9% 100ml) 120 ml @ 240 mls/hr 1X ONCE 11/26/16 13:15 11/26/16 13:44 DC 11/26/16 13:22 240 MLS/HR Chlorhexidine Gluconate 15 ml 15 ml BID 11/25/16 21:00 11/26/16 17:49 DC 11/26/16 08:37 15 ML Dextrose 12.5 gm PRN Q15MIN PRN 11/25/16 23:30 12/05/16 14:19 DC Dextrose 12.5 gm 12.5 gm PRN Q15MIN PRN 12/05/16 14:19 Enoxaparin Sodium (Lovenox 100mg Syringe) 100 mg Q12HR 12/05/16 09:00 12/06/16 10:22 100 MG Enoxaparin Sodium (Lovenox Per Pharmacy Prophylaxis Dosing) 1 each PRN DAILY PRN 11/25/16 08:45 UNV Enoxaparin Sodium (Lovenox Per Pharmacy Treatment Dosing) 1 each PRN DAILY PRN 12/05/16 09:00 Epinephrine HCl 4 mg STK-MED ONCE 11/25/16 12:00 11/25/16 14:56 DC Epinephrine HCl (Adrenalin) 30 mg STK-MED ONCE 11/25/16 12:00 11/25/16 14:56 DC Epinephrine HCl/ Sodium Chloride (Adrenalin/Iv Sodium Chloride 0.9% 250ml) 254 ml @ 0 mls/hr CONT PRN 11/24/16 07:30 11/27/16 08:25 DC 11/26/16 03:05 11.43 MLS/HR Famotidine (Pepcid) 20 mg QHS 11/24/16 21:00 11/28/16 09:46 DC 11/27/16 21:12 20 MG Fentanyl Citrate (Fentanyl 2ml Vial) 25 mcg 1X ONCE 12/04/16 07:45 12/04/16 07:46 DC 12/04/16 07:44 25 MCG Furosemide (Lasix) 40 mg DAILY 12/04/16 06:30 12/06/16 10:20 40 MG Furosemide 40 mg 40 mg 1X ONCE 11/30/16 15:00 11/30/16 15:01 DC 11/30/16 15:02 40 MG Heparin Sodium (Porcine) 10,000 unit STK-MED ONCE 12/04/16 07:05 12/04/16 07:06 DC Heparin Sodium (Porcine) 1500 unit 1,500 unit PRN Q6HRS PRN 11/24/16 16:45 11/28/16 17:12 DC 11/26/16 12:08 1,500 UNIT Heparin Sodium (Porcine) 2500 unit 2,500 unit 1X ONCE 11/28/16 14:45 11/28/16 14:46 DC 11/28/16 15:45 2,500 UNIT Heparin Sodium/ Dextrose 500 ml @ 0 mls/hr CONT PRN 11/29/16 15:15 12/05/16 08:51 DC 12/04/16 19:23 0 MLS/HR Heparin Sodium/ Sodium Chloride 1,000 ml @ As Directed STK-MED ONCE 12/04/16 12:59 12/05/16 08:51 DC Hydralazine HCl (Apresoline) 10 mg PRN Q4HRS PRN 11/27/16 12:45 12/03/16 20:18 10 MG Info (Anti-Coagulation Monitoring By Pharmacy) 1 each PRN DAILY PRN 12/05/16 10:15 12/06/16 13:44 1 EACH Info (Do NOT chart on this entry -- for MONITORING) 1 each PRN DAILY PRN 12/04/16 07:45 12/06/16 07:44 DC Info 1 ea 1 ea DAILY PRN 11/26/16 08:45 12/05/16 09:17 DC Info 1 each 1 each PRN DAILY PRN 11/29/16 10:30 12/01/16 10:29 DC Insulin Aspart (Novolog) 0-7 UNITS Q6HRS 11/28/16 01:00 12/06/16 13:11 3 UNITS Insulin Detemir (Levemir) 20 units QHS 12/04/16 21:00 12/05/16 21:15 20 UNITS Insulin Human Regular 150 unit/ Sodium Chloride 151.5 ml @ 9.16 mls/hr CONT PRN 11/24/16 09:30 11/27/16 08:25 DC 11/24/16 10:13 3.4 MLS/HR Iodixanol (Visipaque 320) 100 ml STK-MED ONCE 12/04/16 12:59 12/04/16 13:00 DC Iohexol (Omnipaque 300 Mg/ml) 30 ml 1X ONCE 11/29/16 10:00 11/29/16 10:15 DC 11/29/16 10:22 30 ML Ipratropium [place] (Atrovent) 0.5 mg RTQID 11/28/16 12:00 12/06/16 11:55 0.5 MG Iron Sucrose/ Sodium Chloride (Venofer/Iv Sodium Chloride 0.9% 250ml) 275 ml @ 78.571 mls/ hr 1X ONCE 12/01/16 09:00 12/01/16 12:29 DC 12/01/16 09:58 78.571 MLS/HR Lidocaine HCl 20 ml 1X ONCE 12/04/16 07:45 12/04/16 07:46 DC 12/04/16 07:43 20 ML Lidocaine HCl 20 ml 20 ml STK-MED ONCE 12/04/16 12:59 12/04/16 13:00 DC Lidocaine/Sodium Bicarbonate (Buffered Lidocaine 1%) 2 ml 1X ONCE 11/29/16 10:00 11/29/16 10:15 DC 11/29/16 10:22 2 ML Linezolid 300 ml @ 300 mls/hr Q12HR 11/28/16 21:00 12/02/16 08:23 DC 12/01/16 21:13 300 MLS/HR Linezolid 600 mg 600 mg BID 11/28/16 09:00 11/28/16 19:45 DC Lorazepam 1 mg 1 mg PRN Q30MIN PRN 11/24/16 08:45 11/28/16 19:45 DC 11/25/16 12:26 1 MG Magnesium Sulfate/ Dextrose 50 ml @ 25 mls/hr PRN DAILY PRN 11/27/16 08:45 Magnesium Sulfate/ Dextrose (Magnesium Sulfate PREMIX 2GM) 50 ml @ 25 mls/hr 1X ONCE 11/25/16 12:30 11/25/16 14:29 DC 11/25/16 13:28 25 MLS/HR Meperidine HCl (Demerol) 12.5 mg PRN Q30MIN PRN 11/24/16 08:45 11/24/16 22:21 DC 11/24/16 22:21 12.5 MG Metoprolol Tartrate (Lopressor) 5 mg Q6HRS 11/27/16 15:30 11/27/16 19:11 DC 11/27/16 15:40 5 MG Metoprolol Tartrate 5 mg 5 mg Q6HRS@04,10,16,22 11/27/16 22:00 12/06/16 10:21 5 MG Midazolam HCl (Versed 100mg/ 100ml Premix) 100 ml @ 0 mls/hr CONT PRN 11/25/16 23:30 11/26/16 17:49 DC Midazolam HCl (Versed) 0.5 mg 1X ONCE 12/04/16 07:45 12/04/16 07:46 DC 12/04/16 07:44 0.5 MG Morphine Sulfate 4 mg PRN Q2HR PRN 12/04/16 19:15 12/05/16 09:17 DC Multi-Ingred Cream/Lotion/Oil/ Oint (Artificial Tears Eye Oint) 1 radha PRN Q6HRS PRN 11/24/16 08:45 Nicardipine HCl/ Sodium Chloride (Cardene/Iv Sodium Chloride 0.9% 250ml) 270 ml @ 0 mls/hr CONT PRN 11/27/16 20:45 12/05/16 09:17 DC 11/28/16 01:13 81 MLS/HR Nitroglycerin (Nitroglycerin) 200 mcg 1X ONCE 12/04/16 07:45 12/04/16 07:46 DC 12/04/16 07:42 200 MCG Nitroglycerin 0.4 mg 0.4 mg STK-MED ONCE 11/27/16 11:16 11/27/16 11:17 DC 11/27/16 11:26 0.4 MG Nitroglycerin/ Dextrose (Nitroglycerin Drip) 250 ml @ 0 mls/hr CONT PRN 11/30/16 10:45 12/05/16 09:17 DC 11/30/16 10:53 7.5 MLS/HR Ondansetron HCl (Zofran) 4 mg PRN Q6HRS PRN 12/04/16 06:30 Ondansetron HCl 4 mg 4 mg PRN Q6HRS PRN 11/26/16 13:45 12/04/16 06:30 DC 12/03/16 21:17 4 MG Pantoprazole Sodium (Protonix Vial) 40 mg DAILYAC 12/05/16 06:27 12/06/16 10:21 40 MG Pantoprazole Sodium/Sodium Chloride (Protonix Iv/Iv Sodium Chloride 0.9% 100ml) 100 ml @ 10 mls/hr Q10H PRN 11/28/16 10:00 12/01/16 15:59 DC 12/01/16 13:01 10 MLS/HR Piperacillin Sod/ Tazobactam Sod 3.375 gm/Sodium Chloride 50 ml @ 100 mls/hr Q6HRS 11/25/16 00:00 12/06/16 13:06 100 MLS/HR Piperacillin Sod/ Tazobactam Sod 1 each 1 each PRN DAILY PRN 11/24/16 08:15 11/24/16 13:06 DC Piperacillin Sod/ Tazobactam Sod/ Sodium Chloride (Zosyn/Iv Sodium Chloride 0.9% 100ml) 100 ml @ 200 mls/hr Q6HRS 11/24/16 08:30 11/24/16 11:15 DC 11/24/16 10:10 200 MLS/HR Potassium Chloride/ Magnesium Sulfate/ Calcium Gluconate/ Multivitamins/ Chromium/Copper/ Manganese/Seleni/ Zn/Total Parenteral Nutrition/Amino Acids/Dextrose/ Fat Emulsion Intravenous (Calcium Gluconate/ Infuvite Adult/ Multitrace-5 Conc/ Tpn - Tpn Fluid/ Trophami... 1,512 ml @ 63 mls/hr TPN CONT 11/28/16 22:00 11/29/16 21:59 DC 11/28/16 21:18 63 MLS/HR Potassium Chloride/ Magnesium Sulfate/ Calcium Gluconate/ Multivitamins/ Chromium/Copper/ Manganese/Seleni/ Zn/Total Parenteral Nutrition/Amino Acids/Dextrose/ Fat Emulsion Intravenous (Infuvite Adult/ Multitrace-5 Conc/ Tpn - Tpn Fluid/ Trophamine/ Dextrose 70%-Water Iv So... 1,512 ml @ 63 mls/hr TPN CONT 11/27/16 22:00 11/28/16 21:59 DC 11/27/16 21:22 63 MLS/HR Potassium Chloride/ Potassium Acetate/ Magnesium Sulfate/ Calcium Gluconate/ Multivitamins/ Chromium/Copper/ Manganese/Seleni/ Zn/Total Parenteral Nutrition/Amino Acids/Dextrose/ Fat Emulsion Intravenous (Calcium Gluconate/ Infuvite Adult/ Multitrace-5 Conc/ Tpn - Tpn Flu... 1,512 ml @ 63 mls/hr TPN CONT 11/29/16 22:00 11/30/16 21:59 DC 11/29/16 21:54 63 MLS/HR Potassium Acetate/ Potassium Phosphate/ Magnesium Sulfate/ Calcium Gluconate/ Multivitamins/ Chromium/Copper/ Manganese/Seleni/ Zn/Insulin Human Regular/Total Parenteral Nutrition/Amino Acids/Dextrose/ Fat Emulsion Intravenous (Potassium Phosphate/Calcium Gluconate/ Infuvite Asim... 1,512 ml @ 63 mls/hr TPN CONT 12/06/16 22:00 12/07/16 21:59 Potassium Chloride 50 ml @ 50 mls/hr Q1H 11/26/16 10:30 11/26/16 12:29 DC 11/26/16 11:23 50 MLS/HR Propofol (Diprivan) 100 ml @ 0 mls/hr CONT PRN 11/24/16 08:45 11/26/16 17:49 DC 11/26/16 07:38 5.5 MLS/HR Sodium Bicarbonate 100 meq/Sterile Water 1,100 ml @ 100 mls/hr Q11H 11/26/16 13:00 11/27/16 11:25 DC 11/27/16 00:56 100 MLS/HR Sodium Bicarbonate 150 meq 150 meq STK-MED ONCE 11/25/16 12:00 11/25/16 14:56 DC Sodium Bicarbonate 50 meq/Sodium Chloride 1,050 ml @ 125 mls/hr Q8H24M 11/24/16 08:30 11/26/16 12:41 DC 11/26/16 11:24 125 MLS/HR Sodium Bicarbonate 50 meq 1X ONCE 11/27/16 12:45 11/27/16 12:46 DC 11/27/16 13:24 50 MEQ Sodium Chloride (Iv Sodium Chloride 0.9% 1000ml Bag) 1,000 ml @ 1,000 mls/hr 1X ONCE 11/24/16 11:00 11/24/16 11:59 DC 11/24/16 11:00 1,000 MLS/HR Sodium Chloride (Normal Saline Flush) 3 ml QSHIFT PRN 11/24/16 08:45 Sodium Chloride 90 meq/Potassium Chloride 50 meq/ Magnesium Sulfate 10 meq/Calcium Gluconate 10 meq/ Multivitamins 10 ml/Chromium/ Copper/Manganese/ Seleni/Zn 1 ml/ Total Parenteral Nutrition/Amino Acids/Dextrose/ Fat Emulsion Intravenous 1,594.468 ml @ 66.436 m... TPN CONT 11/27/16 22:00 11/28/16 21:59 Cancel Sodium Chloride/ Potassium Chloride/ Magnesium Sulfate/ Calcium Gluconate/ Multivitamins/ Chromium/Copper/ Manganese/Seleni/ Zn/Total Parenteral Nutrition/Amino Acids/Dextrose/ Fat Emulsion Intravenous (Sodium Chloride/ Infuvite Adult/ Multitrace-5 Conc/ Tpn - Tpn Fluid/ Trophami... 1,594.468 ml @ 66.436 m... TPN CONT 11/26/16 22:00 11/27/16 21:59 DC 11/26/16 21:27 66.436 MLS/HR Vancomycin HCl 1 each 1X ONCE 11/29/16 21:30 11/29/16 21:30 DC Vancomycin HCl (Vanco Per Pharmacy) 1 each PRN DAILY PRN 11/25/16 01:00 11/25/16 08:57 DC 11/25/16 03:30 1 EACH Vancomycin HCl 1.5 gm/Sodium Chloride 500 ml @ 250 mls/hr Q24H 11/25/16 10:00 11/25/16 10:00 DC Vancomycin HCl 1 each 1 each PRN DAILY PRN 11/27/16 22:00 11/28/16 08:30 DC 11/27/16 21:38 1 EACH Vancomycin HCl 2 gm/Sodium Chloride 500 ml @ 250 mls/hr 1X ONCE 11/27/16 22:00 11/27/16 23:59 DC 11/27/16 22:57 250 MLS/HR Vancomycin HCl/ Sodium Chloride (Iv Sodium Chloride 0.9% 250ml) 250 ml @ 250 mls/hr 1X ONCE 11/24/16 21:30 11/24/16 22:29 UNV Vancomycin HCl/ Sodium Chloride (Iv Sodium Chloride 0.9% 500ml Bag) 500 ml @ 250 mls/hr Q24H 11/28/16 22:00 11/28/16 22:00 DC Vecuronium [place] (Norcuron Bolus) 9 mg PRN Q30MIN PRN 11/24/16 08:45 11/26/16 17:49 DC 11/24/16 17:38 9 MG Verapamil HCl (Verapamil) 5 mg STK-MED ONCE 12/04/16 07:30 12/05/16 08:38 DC Lab Laboratory Tests Test 12/05/16 16:58 12/05/16 20:56 12/05/16 23:56 12/06/16 04:54 Glucose (Fingerstick) 206mg/dL (70-99) 236mg/dL (70-99) 214mg/dL (70-99) 196mg/dL (70-99) Test 12/06/16 05:10 12/06/16 07:46 12/06/16 11:54 White Blood Count 14.5x10^3/uL (4.0-11.0) Red Blood Count 2.60x10^6/uL (4.30-5.70) Hemoglobin 7.8g/dL (13.0-17.5) Hematocrit 24.0% (39.0-53.0) Mean Corpuscular Volume 93fL (79-100) Mean Corpuscular Hemoglobin 30pg (25-35) Mean Corpuscular Hemoglobin Concent 32g/dL (31-37) Red Cell Distribution Width 15.9% (11.5-14.5) Platelet Count 332x10^3/uL (140-400) Sodium Level 145mmol/L (136-145) Potassium Level 4.5mmol/L (3.5-5.1) Chloride Level 108mmol/L (98-107) Carbon Dioxide Level 26mmol/L (21-32) Anion Gap 11 (6-14) Blood Urea Nitrogen 50mg/dL (8-26) Creatinine 1.9mg/dL (0.7-1.3) Estimated GFR (Cockcroft-Gault) 35.1 Glucose Level 212mg/dL (70-99) Calcium Level 9.4mg/dL (8.5-10.1) Glucose (Fingerstick) 186mg/dL (70-99) 217mg/dL (70-99) ASHLEY DIAMOND MD Dec 06, 2016 15:11
[2016-12-06 16:25] VITALS: BP 163/86
--- NOTE | 2016-12-06 18:20 | PDOC ---
PULMONARY PROGRESS NOTES Subjective pt working with PT no resp complaints Vitals Vital Signs Date Time Temp Pulse Resp B/P Pulse Ox O2 Delivery O2 Flow Rate FiO2 12/06/16 18:07 95 12/06/16 16:25 98.0 18 163/86 94 Nasal Cannula 2.0 98.0 Comments ros as mentioned as above. discussed w rn, other sys otherwise neg General: Alert, No acute distress HEENT: Other (nc at, perrl, nose clear, shallow oropharynx. neck, + jvd, no thyromegaly, no lap) Lungs: Clear Cardiovascular: S1, S2 Abdomen: Soft, Non-tender, Other (no mass) Neuro Exam: Alert Extremities: Other (2=edema) Skin: Warm Labs Laboratory Tests Test 12/04/16 20:44 12/05/16 00:08 12/05/16 06:03 12/05/16 06:05 Glucose (Fingerstick) 266mg/dL (70-99) 221mg/dL (70-99) 253mg/dL (70-99) White Blood Count 15.4x10^3/uL (4.0-11.0) Red Blood Count 2.40x10^6/uL (4.30-5.70) Hemoglobin 7.3g/dL (13.0-17.5) Hematocrit 21.7% (39.0-53.0) Mean Corpuscular Volume 90fL (79-100) Mean Corpuscular Hemoglobin 30pg (25-35) Mean Corpuscular Hemoglobin Concent 34g/dL (31-37) Red Cell Distribution Width 15.8% (11.5-14.5) Platelet Count 273x10^3/uL (140-400) Neutrophils (%) (Auto) 75% (31-73) Lymphocytes (%) (Auto) 9% (24-48) Monocytes (%) (Auto) 11% (0-9) Eosinophils (%) (Auto) 5% (0-3) Basophils (%) (Auto) 0% (0-3) Neutrophils # (Auto) 11.5x10^3uL (1.8-7.7) Lymphocytes # (Auto) 1.3x10^3/uL (1.0-4.8) Monocytes # (Auto) 1.7x10^3/uL (0.0-1.1) Eosinophils # (Auto) 0.8x10^3/uL (0.0-0.7) Basophils # (Auto) 0.0x10^3/uL (0.0-0.2) Heparin Anti-Xa Act, Unfractionated 0.31IU/mL (0.30-0.70) Sodium Level 144mmol/L (136-145) Potassium Level 4.6mmol/L (3.5-5.1) Chloride Level 108mmol/L (98-107) Carbon Dioxide Level 25mmol/L (21-32) Anion Gap 11 (6-14) Blood Urea Nitrogen 48mg/dL (8-26) Creatinine 1.9mg/dL (0.7-1.3) Estimated GFR (Cockcroft-Gault) 35.1 Glucose Level 253mg/dL (70-99) Calcium Level 9.0mg/dL (8.5-10.1) Phosphorus Level 3.5mg/dL (2.6-4.7) Magnesium Level 2.0mg/dL (1.8-2.4) Test 12/05/16 12:28 12/05/16 16:58 12/05/16 20:56 12/05/16 23:56 Glucose (Fingerstick) 202mg/dL (70-99) 206mg/dL (70-99) 236mg/dL (70-99) 214mg/dL (70-99) Test 12/06/16 04:54 12/06/16 05:10 12/06/16 07:46 12/06/16 11:54 Glucose (Fingerstick) 196mg/dL (70-99) 186mg/dL (70-99) 217mg/dL (70-99) White Blood Count 14.5x10^3/uL (4.0-11.0) Red Blood Count 2.60x10^6/uL (4.30-5.70) Hemoglobin 7.8g/dL (13.0-17.5) Hematocrit 24.0% (39.0-53.0) Mean Corpuscular Volume 93fL (79-100) Mean Corpuscular Hemoglobin 30pg (25-35) Mean Corpuscular Hemoglobin Concent 32g/dL (31-37) Red Cell Distribution Width 15.9% (11.5-14.5) Platelet Count 332x10^3/uL (140-400) Sodium Level 145mmol/L (136-145) Potassium Level 4.5mmol/L (3.5-5.1) Chloride Level 108mmol/L (98-107) Carbon Dioxide Level 26mmol/L (21-32) Anion Gap 11 (6-14) Blood Urea Nitrogen 50mg/dL (8-26) Creatinine 1.9mg/dL (0.7-1.3) Estimated GFR (Cockcroft-Gault) 35.1 Glucose Level 212mg/dL (70-99) Calcium Level 9.4mg/dL (8.5-10.1) Test 12/06/16 17:59 Glucose (Fingerstick) 239mg/dL (70-99) Laboratory Tests Test 12/05/16 20:56 12/05/16 23:56 12/06/16 04:54 12/06/16 05:10 Glucose (Fingerstick) 236mg/dL (70-99) 214mg/dL (70-99) 196mg/dL (70-99) White Blood Count 14.5x10^3/uL (4.0-11.0) Red Blood Count 2.60x10^6/uL (4.30-5.70) Hemoglobin 7.8g/dL (13.0-17.5) Hematocrit 24.0% (39.0-53.0) Mean Corpuscular Volume 93fL (79-100) Mean Corpuscular Hemoglobin 30pg (25-35) Mean Corpuscular Hemoglobin Concent 32g/dL (31-37) Red Cell Distribution Width 15.9% (11.5-14.5) Platelet Count 332x10^3/uL (140-400) Sodium Level 145mmol/L (136-145) Potassium Level 4.5mmol/L (3.5-5.1) Chloride Level 108mmol/L (98-107) Carbon Dioxide Level 26mmol/L (21-32) Anion Gap 11 (6-14) Blood Urea Nitrogen 50mg/dL (8-26) Creatinine 1.9mg/dL (0.7-1.3) Estimated GFR (Cockcroft-Gault) 35.1 Glucose Level 212mg/dL (70-99) Calcium Level 9.4mg/dL (8.5-10.1) Test 12/06/16 07:46 12/06/16 11:54 12/06/16 17:59 Glucose (Fingerstick) 186mg/dL (70-99) 217mg/dL (70-99) 239mg/dL (70-99) Comments cxr reviewed, increased vm, ll infilt atelectasis effusion R>L Impression . 1. Acute respiratory failure secondary to [id number] cardiopulmonary arrest. 2. Hyperlipidemia. 3. Diabetes. 4. Positive venous Doppler/ high prob V/Q, on Heparin/ popliteal nonocclusive thrombus. 5. Metabolic acidosis sec to code, improved. 6. PE 7. Ischemia CM 35-40%, cath no significant lesion 8. Acute kidney injury 9. anemia, 10. wheezing, acute bronchospasm, resolved 11. abnl cxr, suspect chf 12. GPC bacteremia Plan . pt improving, will need rehab cath report noted up to chair resp status is compensated anticoagulation for 3-6 months antibx per MC Bass MD Dec 06, 2016 18:20
[2016-12-06 18:58] VITALS: BP 158/78
[2016-12-06] MEDS: INSULIN DETEMIR 300 UNITS/3 ML INSULN.PEN. SQ SCH (20:44)
[2016-12-06] MEDS ORDERED: TOTAL PARENTERAL NUTRITION IV SCH ×10 (22:00)
[2016-12-06] MEDS ORDERED: AMINO ACIDS IV SCH ×10 (22:00)
[2016-12-06] MEDS ORDERED: DEXTROSE 70% IV SCH ×10 (22:00)
[2016-12-06] MEDS ORDERED: [UNRECOGNIZED DRUG - OTHER] IV SCH ×10 (22:00)
[2016-12-06 22:30] VITALS: BP 155/82
[2016-12-07] MEDS: INSULIN ASPART 300 UNITS/3 ML INSULN.PEN SQ SCH ×5 (02:02→23:08)
[2016-12-07 03:58] VITALS: BP 151/79
[2016-12-07] MEDS: METOPROLOL TARTRATE 5 MG/5 ML VIAL. IVP SCH ×4 (04:14→20:31)
[2016-12-07] MEDS: PIPERACILLIN/TAZOBACTAM 3.375 GM in IV NORMAL SALINE 50ML 50 ML IV SCH ×2 (05:21→12:00)
[2016-12-07 05:57] LABS: PHOSPHORUS 3.7 mg/dL (2.6-4.7)
[2016-12-07 07:25] VITALS: BP 168/78
--- NOTE | 2016-12-07 07:46 | PDOC ---
PROGRESS NOTES Chief Complaint Chief Complaint S/P VT/VF Cardiac arrest Acute respiratory failure possibly 2/2 PE; extubated 11/27 DVT bilateral LEs - IVC filter placed 11/29 Acute blood loss anemia s/p transfusion dysphagia Silent Aspiration; failed swallow study HFrEF [place] vs. CKD DM II bactremia with Peptostreptococcus sp. on Zosyn (day 13) HLD leukocytosis History of Present Illness History of Present Illness Patient seen and evaluated at bedside. No acute events overnight. Patient resting comfortably,sitting upright in chair. c/o dry mouth and generalized weakness. Pt is getting mouth swabs, with little relief. TPN is running through central line. Discussed plan of care with RN. Per property staff accountant, patient gets agitated at night, probably ing effect. Vitals Vitals Vital Signs Date Time Temp Pulse Resp B/P Pulse Ox O2 Delivery O2 Flow Rate FiO2 12/07/16 04:14 96 151/79 12/07/16 03:58 97.3 18 94 Nasal Cannula 3.0 97.3 Physical Exam General: Alert, Oriented X3, Cooperative, No acute distress Heart: Regular rate, Normal S1 Lungs: Clear, Other (Negative accessory muscle use; currently on 3L O2 NC ) Abdomen: Soft, No tenderness Extremities: No edema Skin: No rashes, Other (triple lumen in place) Labs LABS Laboratory Tests Test 12/06/16 07:46 12/06/16 11:54 12/06/16 17:59 12/06/16 20:41 Glucose (Fingerstick) 186mg/dL (70-99) 217mg/dL (70-99) 239mg/dL (70-99) 179mg/dL (70-99) Test 12/07/16 01:59 12/07/16 05:19 12/07/16 05:30 Glucose (Fingerstick) 184mg/dL (70-99) 180mg/dL (70-99) Phosphorus Level 3.7mg/dL (2.6-4.7) Magnesium Level 2.0mg/dL (1.8-2.4) Review of Systems Review of Systems (+) dry mouth (+) generalized weakness Denies chest pain, shortness of breath, abdominal pain, n/v/d, or fever/chills. Assessment and Plan Assessmemt and Plan Problems Medical Problems: (1) Cardiac arrest Status: Acute Assessment: S/P VT/VF Cardiac arrest Acute respiratory failure possibly 2/2 PE; extubated 11/27 DVT bilateral LEs - IVC filter placed 11/29 Acute blood loss anemia s/p transfusion dysphagia high risk of aspiration HFrEF [place] vs. CKD DM II bactremia with Peptostreptococcus sp. on Zosyn (day 12) HLD leukocytosis Plan: - ID, cardiology, GI, and nephrology consulted, recommendations appreciated. - start ativan .5mg Q6hr - Continue TPN - Continue wound care - continue anticoagulation - ? PEG placement per consults. - monitor AM labs; creatinine stable at 1.9 - PT/OT - Pending SNU evaluation Problems: Comment Review of Relevant I have reviewed the following items rodolfo (where applicable) has been applied. Labs Laboratory Tests Test 12/05/16 12:28 12/05/16 16:58 12/05/16 20:56 12/05/16 23:56 Glucose (Fingerstick) 202mg/dL (70-99) 206mg/dL (70-99) 236mg/dL (70-99) 214mg/dL (70-99) Test 12/06/16 04:54 12/06/16 05:10 12/06/16 07:46 12/06/16 11:54 Glucose (Fingerstick) 196mg/dL (70-99) 186mg/dL (70-99) 217mg/dL (70-99) White Blood Count 14.5x10^3/uL (4.0-11.0) Red Blood Count 2.60x10^6/uL (4.30-5.70) Hemoglobin 7.8g/dL (13.0-17.5) Hematocrit 24.0% (39.0-53.0) Mean Corpuscular Volume 93fL (79-100) Mean Corpuscular Hemoglobin 30pg (25-35) Mean Corpuscular Hemoglobin Concent 32g/dL (31-37) Red Cell Distribution Width 15.9% (11.5-14.5) Platelet Count 332x10^3/uL (140-400) Sodium Level 145mmol/L (136-145) Potassium Level 4.5mmol/L (3.5-5.1) Chloride Level 108mmol/L (98-107) Carbon Dioxide Level 26mmol/L (21-32) Anion Gap 11 (6-14) Blood Urea Nitrogen 50mg/dL (8-26) Creatinine 1.9mg/dL (0.7-1.3) Estimated GFR (Cockcroft-Gault) 35.1 Glucose Level 212mg/dL (70-99) Calcium Level 9.4mg/dL (8.5-10.1) Test 12/06/16 17:59 12/06/16 20:41 12/07/16 01:59 12/07/16 05:19 Glucose (Fingerstick) 239mg/dL (70-99) 179mg/dL (70-99) 184mg/dL (70-99) 180mg/dL (70-99) Test 12/07/16 05:30 Phosphorus Level 3.7mg/dL (2.6-4.7) Magnesium Level 2.0mg/dL (1.8-2.4) Laboratory Tests Test 12/06/16 07:46 12/06/16 11:54 12/06/16 17:59 12/06/16 20:41 Glucose (Fingerstick) 186mg/dL (70-99) 217mg/dL (70-99) 239mg/dL (70-99) 179mg/dL (70-99) Test 12/07/16 01:59 12/07/16 05:19 12/07/16 05:30 Glucose (Fingerstick) 184mg/dL (70-99) 180mg/dL (70-99) Phosphorus Level 3.7mg/dL (2.6-4.7) Magnesium Level 2.0mg/dL (1.8-2.4) Microbiology 11/28/16 Blood Culture - Final, Complete NO GROWTH AFTER 5 DAYS 11/24/16 Stool Culture - Final, Complete 11/24/16 Stool Culture Result 1 (ROSIE) - Final, Complete 11/24/16 Campylobacter Antigen Assay - Final, Complete 11/24/16 Campylobactor Result 1 - Final, Complete 11/24/16 Shiga Toxin Test - Final, Complete 11/25/16 Urine Culture - Final, Complete 11/25/16 Urine Culture Result 1 (ROSIE) - Final, Complete Medications Current Medications Sodium Chloride 1,000 ml @ 1,000 mls/hr Q1H IV Last administered on 11/24/16 06:50; Start 11/24/16 at 06:50; Stop 11/24/16 at 07:49; Status DC Epinephrine HCl/ Sodium Chloride (Adrenalin/Iv Sodium Chloride 0.9% 250ml) 254 ml @ 0 mls/hr CONT PRN IV SEE I/O RECORD Last administered on 11/26/16 03:05; Start 11/24/16 at 07:30; Stop 11/27/16 at 08:25; Status DC Insulin Aspart (Novolog) 0-7 UNITS TIDWMEALS SQ ; Start 11/24/16 at 08:00; Stop 11/24/16 at 15:36; Status DC Dextrose 12.5 gm 12.5 gm PRN Q15MIN PRN IV SEE COMMENTS; Start 11/24/16 at 07: 45; Stop 11/25/16 at 23:34; Status DC Sodium Chloride (Iv Sodium Chloride 0.9% 1000ml Bag) 1,000 ml @ 125 mls/hr 1X ONCE IV Last administered on 11/24/16 07:52; Start 11/24/16 at 08:00; Stop at 08:20; Status DC Vancomycin HCl (Vanco Per Pharmacy) 1 each PRN DAILY PRN MC SEE COMMENTS Last administered on 11/24/16 11:26; Start 11/24/16 at 08:15; Stop 11/24/16 at 13:06 ; Status DC Piperacillin Sod/ Tazobactam Sod 1 each 1 each PRN DAILY PRN MC SEE COMMENTS; Start 11/24/16 at 08:15; Stop 11/24/16 at 13:06; Status DC Sodium Bicarbonate 50 meq/Sodium Chloride 1,050 ml @ 125 mls/hr Q8H24M IV Last administered on 11/26/16 11:24; Start 11/24/16 at 08:30; Stop 11/26/16 at 12:41; Status DC Vancomycin HCl 2 gm/Sodium Chloride 500 ml @ 250 mls/hr ONCE ONCE IV Last administered on 11/24/16 10:15; Start 11/24/16 at 08:30; Stop 11/24/16 at 10:29 ; Status DC Piperacillin Sod/ Tazobactam Sod 4.5 gm/Sodium Chloride 100 ml @ 200 mls/hr Q6HRS IV Last administered on 11/24/16 10:10; Start 11/24/16 at 08:30; Stop at 11:15; Status DC Sodium Chloride (Iv Sodium Chloride 0.9% 1000ml Bag) 1,000 ml @ 1,000 mls/hr Q1H IV Last administered on 11/24/16 10:09; Start 11/24/16 at 08:39; Stop at 11:47; Status DC Fentanyl Citrate (Fentanyl 2ml Vial) 25 mcg PRN Q30MIN PRN IV SED Last administered on 11/30/16 17:24; Start 11/24/16 at 08:45; Stop 12/04/16 at 06:29 ; Status DC Lorazepam 1 mg 1 mg PRN Q30MIN PRN IV SEDATION Last administered on 11/25/16 12:26; Start 11/24/16 at 08:45; Stop 11/28/16 at 19:45; Status DC Fentanyl Citrate 30 ml @ 2.5 mls/hr CONT PRN PRN IV IVF Last administered on 07:40; Start 11/24/16 at 08:45; Stop 11/26/16 at 17:49; Status DC Propofol (Diprivan) 100 ml @ 0 mls/hr CONT PRN IV SEE I/O RECORD Last administered on 11/26/16 07:38; Start 11/24/16 at 08:45; Stop 11/26/16 at 17:49 ; Status DC Vecuronium [place] (Norcuron Bolus) 9 mg PRN Q30MIN PRN IV SHIVERING Last administered on 11/24/16 17:38; Start 11/24/16 at 08:45; Stop 11/26/16 at 17:49 ; Status DC Meperidine HCl (Demerol) 12.5 mg PRN Q30MIN PRN IV SHIVERING Last administered on 11/24/16 22:21; Start 11/24/16 at 08:45; Stop 11/24/16 at 22:21; Status DC Multi-Ingred Cream/Lotion/Oil/ Oint (Artificial Tears Eye Oint) 1 radha PRN Q6HRS PRN OU 0.5 INCH FOR DRY EYE; Start 11/24/16 at 08:45 Famotidine (Pepcid) 20 mg QHS IVP Last administered on 11/27/16 21:12; Start 11/24/16 at 21:00; Stop 11/28/16 at 09:46; Status DC Aspirin (Aspirin) 300 mg DAILY TX Last administered on 12/06/16 10:21; Start at 09:00 Sodium Chloride (Normal Saline Flush) 3 ml QSHIFT PRN IV AFTER MEDS AND BLOOD DRAWS; Start 11/24/16 at 08:45 Acetaminophen (Tylenol) 650 mg Q6HRS NG ; Start 11/24/16 at 12:00; Stop at 11:59; Status DC Acetaminophen (Tylenol) 650 mg PRN Q6HRS PRN TX MILD PAIN / TEMP; Start at 08:45; Stop 11/25/16 at 23:35; Status DC Acetaminophen (Tylenol) 650 mg PRN Q6HRS PRN NG MILD PAIN / TEMP; Start at 08:45 Info 1 ea 1 ea DAILY PRN MC PER PROTOCOL; Start 11/26/16 at 08:45; Stop at 09:17; Status DC Insulin Human Regular 150 unit/ Sodium Chloride 151.5 ml @ 9.16 mls/hr CONT PRN IV SEE I/O RECORD Last administered on 11/24/16 10:13; Start 11/24/16 at 09 :30; Stop 11/27/16 at 08:25; Status DC Piperacillin Sod/ Tazobactam Sod 3.375 gm/Sodium Chloride 50 ml @ 100 mls/hr Q6HRS IV ; Start 11/24/16 at 18:00; Stop 11/24/16 at 18:00; Status DC Vancomycin HCl/ Sodium Chloride (Iv Sodium Chloride 0.9% 500ml Bag) 500 ml @ 250 mls/hr Q24H IV ; Start 11/25/16 at 10:00; Stop 11/25/16 at 10:00; Status DC Vancomycin HCl 1 each 1 each 1X ONCE MC ; Start 11/26/16 at 09:30; Stop at 09:30; Status DC Sodium Chloride (Iv Sodium Chloride 0.9% 1000ml Bag) 1,000 ml @ 1,000 mls/hr 1X ONCE IV Last administered on 11/24/16 11:00; Start 11/24/16 at 11:00; Stop 11/24/16 at 11:59; Status DC Insulin Detemir (Levemir) 12 units QHS SQ ; Start 11/24/16 at 21:00; Stop at 21:00; Status DC Insulin Aspart (Novolog) 10 units 1X ONCE SQ ; Start 11/24/16 at 15:30; Stop at 20:10; Status DC Insulin Aspart (Novolog) 0-7 UNITS Q4HRS SQ ; Start 11/24/16 at 16:00; Stop at 20:10; Status DC Heparin Sodium (Porcine) 8100 unit 8,100 unit 1X ONCE IV Last administered on 11/24/16 17:24; Start 11/24/16 at 17:00; Stop 11/24/16 at 17:01; Status DC Heparin Sodium/ Dextrose 500 ml @ 0 mls/hr CONT PRN IV SEE I/O RECORD Last administered on 11/28/16 02:06; Start 11/24/16 at 16:45; Stop 11/28/16 at 17:12 ; Status DC Heparin Sodium (Porcine) 3,000 unit PRN Q6HRS PRN IV FOR UFH LEVEL LESS THAN 0.2; Start 11/24/16 at 16:45; Stop 11/28/16 at 17:12; Status DC Heparin Sodium (Porcine) 1,500 unit PRN Q6HRS PRN IV FOR UFH LEVEL 0.2 - 0.29 Last administered on 11/26/16 12:08; Start 11/24/16 at 16:45; Stop 11/28/16 at 17:12; Status DC Info 1 each 1 each PRN DAILY PRN MC SEE COMMENTS Last administered on 10:03; Start 11/24/16 at 17:00; Stop 11/28/16 at 17:13; Status DC Piperacillin Sod/ Tazobactam Sod 3.375 gm/Sodium Chloride 50 ml @ 100 mls/hr Q6HRS IV Last administered on 12/07/16 05:21; Start 11/25/16 at 00:00 Vancomycin HCl/ Sodium Chloride (Iv Sodium Chloride 0.9% 250ml) 250 ml @ 250 mls/hr 1X ONCE IV ; Start 11/24/16 at 21:30; Stop 11/24/16 at 22:29; Status UNV Vancomycin HCl 1 each 1 each PRN DAILY PRN MC SEE COMMENTS Last administered on 11/25/16 03:30; Start 11/25/16 at 01:00; Stop 11/25/16 at 08:57; Status DC Vancomycin HCl/ Sodium Chloride (Iv Sodium Chloride 0.9% 500ml Bag) 500 ml @ 250 mls/hr Q24H IV ; Start 11/25/16 at 10:00; Stop 11/25/16 at 10:00; Status DC Vancomycin HCl 1 each 1X ONCE MC ; Start 11/26/16 at 09:30; Stop 11/26/16 at 09 :30; Status DC Enoxaparin Sodium (Lovenox Per Pharmacy Prophylaxis Dosing) 1 each PRN DAILY PRN MC SEE COMMENTS; Start 11/25/16 at 08:45; Status UNV Chlorhexidine Gluconate 15 ml 15 ml BID MM Last administered on 11/26/16 08:37 ; Start 11/25/16 at 21:00; Stop 11/26/16 at 17:49; Status DC Magnesium Sulfate/ Dextrose 50 ml @ 25 mls/hr PRN DAILY PRN IV for Mag < 1.7 on am labs Last administered on 11/26/16 05:29; Start 11/25/16 at 09:45; Stop 11/27/16 at 08:47; Status DC Magnesium Sulfate/ Dextrose 50 ml @ 25 mls/hr PRN DAILY PRN IV for Mag < 1.7 on am labs; Start 11/25/16 at 09:45; Status UNV Sodium Chloride 500 ml @ 0 mls/hr QID PRN IV UO< 30cc/hr over previous 6hrs Last administered on 11/25/16 10:54; Start 11/25/16 at 09:45; Stop 11/27/16 at 11:25; Status DC Magnesium Sulfate/ Dextrose (Magnesium Sulfate PREMIX 2GM) 50 ml @ 25 mls/hr 1X ONCE IV Last administered on 11/25/16 13:28; Start 11/25/16 at 12:30; Stop 11/25/16 at 14:29; Status DC Lidocaine/Sodium Bicarbonate 20 ml 20 ml STK-MED ONCE IJ ; Start 11/25/16 at 12: 35; Stop 11/25/16 at 12:36; Status DC Heparin Sodium/ Sodium Chloride 500 ml @ As Directed STK-MED ONCE .ROUTE ; Start 11/25/16 at 12:35; Stop 11/25/16 at 12:36; Status DC Lidocaine/Sodium Bicarbonate (Buffered Lidocaine 1%) 3 ml 1X ONCE IJ Last administered on 11/25/16 13:15; Start 11/25/16 at 13:15; Stop 11/25/16 at 13:16 ; Status DC Heparin Sodium/ Sodium Chloride 60 unit 1X ONCE IV Last administered on 13:16; Start 11/25/16 at 13:15; Stop 11/25/16 at 13:16; Status DC Amiodarone HCl (Cordarone) 450 mg STK-MED ONCE .ROUTE ; Start 11/25/16 at 12:00 ; Stop 11/25/16 at 14:56; Status DC Epinephrine HCl (Adrenalin) 30 mg STK-MED ONCE .ROUTE ; Start 11/25/16 at 12:00 ; Stop 11/25/16 at 14:56; Status DC Atropine Sulfate 1.5 mg STK-MED ONCE .ROUTE ; Start 11/25/16 at 12:00; Stop at 14:56; Status DC Epinephrine HCl 4 mg STK-MED ONCE .ROUTE ; Start 11/25/16 at 12:00; Stop at 14:56; Status DC Sodium Bicarbonate 150 meq 150 meq STK-MED ONCE .ROUTE ; Start 11/25/16 at 12:00 ; Stop 11/25/16 at 14:56; Status DC Midazolam HCl (Versed 100mg/ 100ml Premix) 100 ml @ 0 mls/hr CONT PRN IV SEE I/ O RECORD; Start 11/25/16 at 23:30; Stop 11/26/16 at 17:49; Status DC Insulin Aspart (Novolog) 0-7 UNITS TIDWMEALS SQ Last administered on 11/27/16 19:43; Start 11/26/16 at 08:00; Stop 11/28/16 at 01:01; Status DC Dextrose 12.5 gm PRN Q15MIN PRN IV SEE COMMENTS; Start 11/25/16 at 23:30; Stop 12/05/16 at 14:19; Status DC Acetaminophen 650 mg 650 mg PRN Q6HRS PRN TX MILD PAIN / TEMP Last administered on 11/28/16 04:19; Start 11/25/16 at 23:30; Stop 12/02/16 at 13:29 ; Status DC Potassium Chloride 50 ml @ 50 mls/hr Q1H IV Last administered on 11/26/16 11: 23; Start 11/26/16 at 10:30; Stop 11/26/16 at 12:29; Status DC Sodium Bicarbonate/ Sterile Water 1,100 ml @ 100 mls/hr Q11H IV Last administered on 11/27/16 00:56; Start 11/26/16 at 13:00; Stop 11/27/16 at 11:25 ; Status DC Info 1 each 1 each PRN DAILY PRN MC SEE COMMENTS Last administered on 12/06/16 13:18; Start 11/26/16 at 12:45 Calcium Chloride/ Sodium Chloride (Iv Sodium Chloride 0.9% 100ml) 120 ml @ 240 mls/hr 1X ONCE IV Last administered on 11/26/16 13:22; Start 11/26/16 at 13: 15; Stop 11/26/16 at 13:44; Status DC Ondansetron HCl 4 mg 4 mg PRN Q6HRS PRN IV NAUSEA/VOMITING Last administered on 12/03/16 21:17; Start 11/26/16 at 13:45; Stop 12/04/16 at 06:30; Status DC Sodium Chloride/ Potassium Chloride/ Magnesium Sulfate/ Calcium Gluconate/ Multivitamins/ Chromium/Copper/ Manganese/Seleni/ Zn/Total Parenteral Nutrition/ Amino Acids/Dextrose/ Fat Emulsion Intravenous (Sodium Chloride/ Infuvite Adult / Multitrace-5 Conc/ Tpn - Tpn Fluid/ Trophami... 1,594.468 ml @ 66.436 m... TPN CONT IV Last administered on 11/26/16 21:27; Start 11/26/16 at 22:00; Stop 11/27/16 at 21:59; Status DC Albuterol Sulfate 2.5 mg 2.5 mg 1X ONCE NEB Last administered on 11/27/16 07: 21; Start 11/27/16 at 06:45; Stop 11/27/16 at 06:46; Status DC Magnesium Sulfate/ Dextrose 50 ml @ 25 mls/hr PRN DAILY PRN IV for Mag < 1.7 on am labs; Start 11/27/16 at 08:45 Sodium Chloride 90 meq/Potassium Chloride 50 meq/ Magnesium Sulfate 10 meq/ Calcium Gluconate 10 meq/ Multivitamins 10 ml/Chromium/ Copper/Manganese/ Seleni /Zn 1 ml/ Total Parenteral Nutrition/Amino Acids/Dextrose/ Fat Emulsion Intravenous 1,594.468 ml @ 66.436 m... TPN CONT IV ; Start 11/27/16 at 22:00; Stop 11/28/16 at 21:59; Status Cancel Potassium Chloride/ Magnesium Sulfate/ Calcium Gluconate/ Multivitamins/ Chromium/Copper/ Manganese/Seleni/ Zn/Total Parenteral Nutrition/Amino Acids/ Dextrose/ Fat Emulsion Intravenous (Infuvite Adult/ Multitrace-5 Conc/ Tpn - Tpn Fluid/ Trophamine/ Dextrose 70%-Water Iv So... 1,512 ml @ 63 mls/hr TPN CONT IV Last administered on 11/27/16 21:22; Start 11/27/16 at 22:00; Stop at 21:59; Status DC Nitroglycerin 0.4 mg 0.4 mg STK-MED ONCE SL Last administered on 11/27/16 11: 26; Start 11/27/16 at 11:16; Stop 11/27/16 at 11:17; Status DC Albumin Human (Albuminar) 100 ml @ 100 mls/hr TID IV Last administered on 11/29 08:56; Start 11/27/16 at 12:00; Stop 11/29/16 at 09:59; Status DC Sodium Bicarbonate 50 meq 1X ONCE IV Last administered on 11/27/16 13:24; Start 11/27/16 at 12:45; Stop 11/27/16 at 12:46; Status DC Hydralazine HCl (Apresoline) 10 mg PRN Q4HRS PRN IVP ELEVATED BP, SEE COMMENTS Last administered on 12/03/16 20:18; Start 11/27/16 at 12:45 Metoprolol Tartrate (Lopressor) 5 mg Q6HRS IVP Last administered on 11/27/16 15:40; Start 11/27/16 at 15:30; Stop 11/27/16 at 19:11; Status DC Metoprolol Tartrate 5 mg 5 mg Q6HRS@04,10,16,22 IVP Last administered on 04:14; Start 11/27/16 at 22:00 Nicardipine HCl/ Sodium Chloride (Cardene/Iv Sodium Chloride 0.9% 250ml) 270 ml @ 0 mls/hr CONT PRN IV SEE I/O RECORD Last administered on 11/28/16 01:13; Start 11/27/16 at 20:45; Stop 12/05/16 at 09:17; Status DC Vancomycin HCl 1 each 1 each PRN DAILY PRN MC SEE COMMENTS Last administered on 11/27/16 21:38; Start 11/27/16 at 22:00; Stop 11/28/16 at 08:30; Status DC Vancomycin HCl 2 gm/Sodium Chloride 500 ml @ 250 mls/hr 1X ONCE IV Last administered on 11/27/16 22:57; Start 11/27/16 at 22:00; Stop 11/27/16 at 23:59 ; Status DC Vancomycin HCl/ Sodium Chloride (Iv Sodium Chloride 0.9% 500ml Bag) 500 ml @ 250 mls/hr Q24H IV ; Start 11/28/16 at 22:00; Stop 11/28/16 at 22:00; Status DC Vancomycin HCl 1 each 1X ONCE MC ; Start 11/29/16 at 21:30; Stop 11/29/16 at 21 :30; Status DC Insulin Aspart (Novolog) 0-7 UNITS Q6HRS SQ Last administered on 12/07/16 05:22 ; Start 11/28/16 at 01:00 Linezolid 600 mg 600 mg BID PO ; Start 11/28/16 at 09:00; Stop 11/28/16 at 19:45 ; Status DC Pantoprazole Sodium/Sodium Chloride (Protonix Iv/Iv Sodium Chloride 0.9% 100ml) 100 ml @ 10 mls/hr Q10H PRN IV . Last administered on 12/01/16 13:01; Start 11/28/16 at 10:00; Stop 12/01/16 at 15:59; Status DC Ipratropium [place] (Atrovent) 0.5 mg RTQID NEB Last administered on 12/06/16 21:28; Start 11/28/16 at 12:00 Budesonide (Pulmicort) 0.5 mg RTBID NEB Last administered on 12/06/16 07:36; Start 11/28/16 at 20:00; Stop 12/06/16 at 18:19; Status DC Furosemide 40 mg 40 mg 1X ONCE IVP Last administered on 11/28/16 12:15; Start 11/28/16 at 12:15; Stop 11/28/16 at 12:16; Status DC Potassium Chloride/ Magnesium Sulfate/ Calcium Gluconate/ Multivitamins/ Chromium/Copper/ Manganese/Seleni/ Zn/Total Parenteral Nutrition/Amino Acids/ Dextrose/ Fat Emulsion Intravenous (Calcium Gluconate/ Infuvite Adult/ Multitrace-5 Conc/ Tpn - Tpn Fluid/ Trophami... 1,512 ml @ 63 mls/hr TPN CONT IV Last administered on 11/28/16 21:18; Start 11/28/16 at 22:00; Stop at 21:59; Status DC Lidocaine/Sodium Bicarbonate (Buffered Lidocaine 1%) 3 ml 1X ONCE IJ Last administered on 11/28/16 15:45; Start 11/28/16 at 14:45; Stop 11/28/16 at 14:46 ; Status DC Heparin Sodium/ Sodium Chloride 60 unit 1X ONCE IV Last administered on 15:45; Start 11/28/16 at 14:45; Stop 11/28/16 at 14:46; Status DC Heparin Sodium (Porcine) 2500 unit 2,500 unit 1X ONCE INT CAT Last administered on 11/28/16 15:45; Start 11/28/16 at 14:45; Stop 11/28/16 at 14:46 ; Status DC Linezolid 300 ml @ 300 mls/hr Q12HR IV Last administered on 12/01/16 21:13; Start 11/28/16 at 21:00; Stop 12/02/16 at 08:23; Status DC Potassium Chloride/ Potassium Acetate/ Magnesium Sulfate/ Calcium Gluconate/ Multivitamins/ Chromium/Copper/ Manganese/Seleni/ Zn/Total Parenteral Nutrition/ Amino Acids/Dextrose/ Fat Emulsion Intravenous (Calcium Gluconate/ Infuvite Adult/ Multitrace-5 Conc/ Tpn - Tpn Flu... 1,512 ml @ 63 mls/hr TPN CONT IV Last administered on 11/29/16 21:54; Start 11/29/16 at 22:00; Stop 11/30/16 at 21:59; Status DC Iohexol (Omnipaque 300 Mg/ml) 100 ml STK-MED ONCE .ROUTE ; Start 11/29/16 at 09: 12; Stop 11/29/16 at 09:13; Status DC Lidocaine/Sodium Bicarbonate 20 ml 20 ml STK-MED ONCE IJ ; Start 11/29/16 at 09: 12; Stop 11/29/16 at 09:13; Status DC Heparin Sodium/ Sodium Chloride 500 ml @ As Directed STK-MED ONCE .ROUTE ; Start 11/29/16 at 09:12; Stop 11/29/16 at 09:13; Status DC Lidocaine/Sodium Bicarbonate (Buffered Lidocaine 1%) 2 ml 1X ONCE IJ Last administered on 11/29/16 10:22; Start 11/29/16 at 10:00; Stop 11/29/16 at 10:15 ; Status DC Iohexol (Omnipaque 300 Mg/ml) 30 ml 1X ONCE IART Last administered on 10:22; Start 11/29/16 at 10:00; Stop 11/29/16 at 10:15; Status DC Heparin Sodium/ Sodium Chloride 1,000 unit 1X ONCE IV Last administered on 10:21; Start 11/29/16 at 10:00; Stop 11/29/16 at 10:15; Status DC Info 1 each 1 each PRN DAILY PRN MC SEE COMMENTS; Start 11/29/16 at 10:30; Stop 12/01/16 at 10:29; Status DC Heparin Sodium/ Dextrose 500 ml @ 0 mls/hr CONT PRN IV SEE I/O RECORD; Start at 15:15; Status UNV Heparin Sodium/ Dextrose 500 ml @ 0 mls/hr CONT PRN IV SEE I/O RECORD Last administered on 12/04/16 19:23; Start 11/29/16 at 15:15; Stop 12/05/16 at 08:51 ; Status DC Nitroglycerin/ Dextrose 250 ml @ 0 mls/hr CONT PRN IV SEE I/O RECORD Last administered on 11/30/16 10:53; Start 11/30/16 at 10:45; Stop 12/05/16 at 09:17 ; Status DC Potassium Acetate/ Potassium Phosphate/ Magnesium Sulfate/ Calcium Gluconate/ Multivitamins/ Chromium/Copper/ Manganese/Seleni/ Zn/Insulin Human Regular/ Total Parenteral Nutrition/Amino Acids/Dextrose/ Fat Emulsion Intravenous ( Potassium Phosphate/Calcium Gluconate/ Infuvite Asim... 1,472.1 ml @ 63 mls/hr TPN CONT IV Last administered on 11/30/16 21:31; Start 11/30/16 at 22:00; Stop 12/01/16 at 21:21; Status DC Furosemide 40 mg 40 mg 1X ONCE IVP Last administered on 11/30/16 15:02; Start 11/30/16 at 15:00; Stop 11/30/16 at 15:01; Status DC Iron Sucrose/ Sodium Chloride (Venofer/Iv Sodium Chloride 0.9% 250ml) 275 ml @ 78.571 mls/ hr 1X ONCE IV Last administered on 12/01/16 09:58; Start at 09:00; Stop 12/01/16 at 12:29; Status DC Insulin Detemir (Levemir) 12 units QHS SQ Last administered on 12/03/16 21:28 ; Start 12/01/16 at 21:00; Stop 12/04/16 at 16:49; Status DC Info 1 each 1 each PRN DAILY PRN MC SEE COMMENTS Last administered on 12:18; Start 12/01/16 at 10:45; Stop 12/05/16 at 09:17; Status DC Potassium Acetate/ Potassium Phosphate/ Magnesium Sulfate/ Calcium Gluconate/ Multivitamins/ Chromium/Copper/ Manganese/Seleni/ Zn/Insulin Human Regular/ Total Parenteral Nutrition/Amino Acids/Dextrose/ Fat Emulsion Intravenous ( Potassium Phosphate/Calcium Gluconate/ Infuvite Asim... 1,512 ml @ 64.708 mls/ hr TPN CONT IV Last administered on 12/01/16 22:20; Start 12/01/16 at 22:00; Stop 12/02/16 at 21:21; Status DC Pantoprazole Sodium (Protonix Vial) 40 mg DAILYAC IVP Last administered on 12/04 10:37; Start 12/02/16 at 07:30; Stop 12/05/16 at 06:27; Status DC Acetaminophen 650 mg 650 mg 1X PRN PRN PO PRN prior to blood transfusion; Start 12/02/16 at 06:30; Stop 12/03/16 at 06:29; Status DC Potassium Acetate/ Potassium Phosphate/ Magnesium Sulfate/ Calcium Gluconate/ Multivitamins/ Chromium/Copper/ Manganese/Seleni/ Zn/Insulin Human Regular/ Total Parenteral Nutrition/Amino Acids/Dextrose/ Fat Emulsion Intravenous ( Potassium Phosphate/Calcium Gluconate/ Infuvite Asim... 1,512 ml @ 64.708 mls/ hr TPN CONT IV Last administered on 12/02/16 21:46; Start 12/02/16 at 22:00; Stop 12/03/16 at 21:21; Status DC Furosemide (Lasix) 40 mg DAILY IVP Last administered on 12/03/16 08:47; Start 12/02/16 at 12:30; Stop 12/04/16 at 06:30; Status DC Acetaminophen (Acetaminophen Supp) 650 mg PRN Q6HRS PRN [place] MILD PAIN / TEMP; Start 12/02/16 at 13:30; Stop 12/02/16 at 13:36; Status DC Acetaminophen 650 mg 650 mg PRN Q6HRS PRN TX MILD PAIN / TEMP; Start 12/02/16 at 13:45 Potassium Acetate/ Potassium Phosphate/ Magnesium Sulfate/ Calcium Gluconate/ Multivitamins/ Chromium/Copper/ Manganese/Seleni/ Zn/Insulin Human Regular/ Total Parenteral Nutrition/Amino Acids/Dextrose/ Fat Emulsion Intravenous ( Potassium Phosphate/Calcium Gluconate/ Infuvite Asim... 1,512 ml @ 63 mls/hr TPN CONT IV Last administered on 12/03/16 21:05; Start 12/03/16 at 22:00; Stop 12/04/16 at 21:59; Status DC Fentanyl Citrate (Fentanyl 2ml Vial) 25 mcg PRN Q30MIN PRN IV SED; Start at 06:29; Stop 12/05/16 at 09:17; Status DC Ondansetron HCl (Zofran) 4 mg PRN Q6HRS PRN IV NAUSEA/VOMITING; Start 12/04/16 at 06:30 Furosemide (Lasix) 40 mg DAILY IVP Last administered on 12/06/16t 10:20; Start 12/04/16 at 06:30; Stop 12/06/16 at 15:12; Status DC Lidocaine HCl 20 ml 20 ml STK-MED ONCE .ROUTE ; Start 12/04/16 at 07:02; Stop at 07:03; Status DC Heparin Sodium/ Sodium Chloride 1,500 ml @ As Directed STK-MED ONCE .ROUTE ; Start 12/04/16 at 07:02; Stop 12/04/16 at 07:03; Status DC Iodixanol (Visipaque 320) 100 ml STK-MED ONCE .ROUTE ; Start 12/04/16 at 07:02; Stop 12/04/16 at 07:03; Status DC Nitroglycerin (Nitroglycerin) 200 mcg STK-MED ONCE .ROUTE ; Start 12/04/16 at 07 :05; Stop 12/04/16 at 07:06; Status DC Verapamil HCl (Verapamil) 5 mg STK-MED ONCE .ROUTE ; Start 12/04/16 at 07:05; Stop 12/04/16 at 07:06; Status DC Midazolam HCl (Versed) 2 mg STK-MED ONCE .ROUTE ; Start 12/04/16 at 07:05; Stop 12/04/16 at 07:06; Status DC Fentanyl Citrate (Fentanyl 2ml Vial) 100 mcg STK-MED ONCE .ROUTE ; Start at 07:05; Stop 12/04/16 at 07:06; Status DC Heparin Sodium (Porcine) 10,000 unit STK-MED ONCE .ROUTE ; Start 12/04/16 at 07: 05; Stop 12/04/16 at 07:06; Status DC Nitroglycerin (Nitroglycerin) 200 mcg STK-MED ONCE .ROUTE ; Start 12/04/16 at 07 :17; Stop 12/04/16 at 07:18; Status DC Verapamil HCl (Verapamil) 5 mg STK-MED ONCE .ROUTE ; Start 12/04/16 at 07:18; Stop 12/04/16 at 07:19; Status DC Nitroglycerin (Nitroglycerin) 200 mcg 1X ONCE IART Last administered on 07:42; Start 12/04/16 at 07:45; Stop 12/04/16 at 07:46; Status DC Verapamil HCl (Verapamil) 2.5 mg 1X ONCE IART Last administered on 12/04/16 07:43; Start 12/04/16 at 07:45; Stop 12/04/16 at 07:46; Status DC Heparin Sodium/ Sodium Chloride 1,000 unit 1X ONCE IART Last administered on 07:43; Start 12/04/16 at 07:45; Stop 12/04/16 at 07:46; Status DC Midazolam HCl (Versed) 0.5 mg 1X ONCE IV Last administered on 12/04/16 07:44 ; Start 12/04/16 at 07:45; Stop 12/04/16 at 07:46; Status DC Fentanyl Citrate (Fentanyl 2ml Vial) 25 mcg 1X ONCE IV Last administered on 07:44; Start 12/04/16 at 07:45; Stop 12/04/16 at 07:46; Status DC Iodixanol (Visipaque 320) 100 ml 1X ONCE IART Last administered on 12/04/16 07:42; Start 12/04/16 at 07:45; Stop 12/04/16 at 07:46; Status DC Lidocaine HCl 20 ml 1X ONCE IJ Last administered on 12/04/16 07:43; Start at 07:45; Stop 12/04/16 at 07:46; Status DC Info 1 each 1 each PRN DAILY PRN MC SEE COMMENTS; Start 12/04/16 at 07:45; Stop 12/06/16 at 07:44; Status DC Potassium Acetate/ Potassium Phosphate/ Magnesium Sulfate/ Calcium Gluconate/ Multivitamins/ Chromium/Copper/ Manganese/Seleni/ Zn/Insulin Human Regular/ Total Parenteral Nutrition/Amino Acids/Dextrose/ Fat Emulsion Intravenous ( Potassium Phosphate/Calcium Gluconate/ Infuvite Asim... 1,512 ml @ 63 mls/hr TPN CONT IV Last administered on 12/04/16 22:47; Start 12/04/16 at 22:00; Stop 12/05/16 at 21:59; Status DC Lidocaine HCl 20 ml 20 ml STK-MED ONCE .ROUTE ; Start 12/04/16 at 12:59; Stop at 13:00; Status DC Heparin Sodium/ Sodium Chloride 1,000 ml @ As Directed STK-MED ONCE .ROUTE ; Start 12/04/16 at 12:59; Stop 12/05/16 at 08:51; Status DC Iodixanol (Visipaque 320) 100 ml STK-MED ONCE .ROUTE ; Start 12/04/16 at 12:59; Stop 12/04/16 at 13:00; Status DC Insulin Detemir (Levemir) 25 units QHS SQ ; Start 12/04/16 at 21:00; Stop at 21:00; Status DC Insulin Detemir (Levemir) 20 units QHS SQ Last administered on 12/06/16 20:44; Start 12/04/16 at 21:00 Morphine Sulfate 2 mg PRN Q2HR PRN IV PAIN Last administered on 12/04/16 19:20 ; Start 12/04/16 at 19:15 Morphine Sulfate 4 mg PRN Q2HR PRN IV PAIN; Start 12/04/16 at 19:15; Stop 12/05 at 09:17; Status DC Pantoprazole Sodium (Protonix Vial) 40 mg DAILYAC IVP Last administered on 10:21; Start 12/05/16 at 06:27 Verapamil HCl (Verapamil) 5 mg STK-MED ONCE .ROUTE ; Start 12/04/16 at 07:30; Stop 12/05/16 at 08:38; Status DC Enoxaparin Sodium (Lovenox Per Pharmacy Treatment Dosing) 1 each PRN DAILY PRN MC SEE COMMENTS; Start 12/05/16 at 09:00 Enoxaparin Sodium (Lovenox 100mg Syringe) 100 mg Q12HR SQ Last administered on 12/06/16 20:44; Start 12/05/16 at 09:00 Info 1 each 1 each PRN DAILY PRN MC SEE COMMENTS Last administered on 12/06/16 13:44; Start 12/05/16 at 10:15 Potassium Acetate/ Potassium Phosphate/ Magnesium Sulfate/ Calcium Gluconate/ Multivitamins/ Chromium/Copper/ Manganese/Seleni/ Zn/Insulin Human Regular/ Total Parenteral Nutrition/Amino Acids/Dextrose/ Fat Emulsion Intravenous ( Potassium Phosphate/Calcium Gluconate/ Infuvite Asim... 1,512 ml @ 63 mls/hr TPN CONT IV Last administered on 12/05/16 21:14; Start 12/05/16 at 22:00; Stop 12/06/16 at 21:59; Status DC Barium Sulfate (Varibar Thin Liquid Apple) 148 gm 1X ONCE PO Last administered on 12/05/16 13:56; Start 12/05/16 at 14:00; Stop 12/05/16 at 14:01 ; Status DC Dextrose 12.5 gm 12.5 gm PRN Q15MIN PRN IV SEE COMMENTS; Start 12/05/16 at 14: 19 Potassium Acetate/ Potassium Phosphate/ Magnesium Sulfate/ Calcium Gluconate/ Multivitamins/ Chromium/Copper/ Manganese/Seleni/ Zn/Insulin Human Regular/ Total Parenteral Nutrition/Amino Acids/Dextrose/ Fat Emulsion Intravenous ( Potassium Phosphate/Calcium Gluconate/ Infuvite Asim... 1,512 ml @ 63 mls/hr TPN CONT IV Last administered on 12/06/16 20:49; Start 12/06/16 at 22:00; Stop 12/07/16 at 21:59 Furosemide (Lasix) 20 mg DAILY IVP ; Start 12/07/16 at 09:00 Vitals/I & O Vital Sign - Last 24 Hours 12/06/16 12/06/16 12/06/16 12/06/16 08:00 10:21 11:00 11:57 Temp 97.9 97.9 Pulse 96 Resp 18 B/P 158/76 150/83 Pulse Ox 98 96 O2 Delivery Nasal Cannula Nasal Cannula Nasal Cannula O2 Flow Rate 3.0 2.0 3.0 12/06/16 12/06/16 12/06/16 12/06/16 15:25 16:25 18:07 18:58 Temp 98.0 97.9 98.0 97.9 Pulse 101 95 96 Resp 18 18 B/P 163/86 158/78 Pulse Ox 96 94 98 O2 Delivery Nasal Cannula Nasal Cannula Nasal Cannula O2 Flow Rate 3.0 2.0 2.0 12/06/16 12/06/16 12/06/16 12/06/16 19:33 21:29 22:30 22:32 Temp 98.1 98.1 Pulse 99 99 Resp 18 B/P 155/82 155/82 Pulse Ox 97 96 O2 Delivery Nasal Cannula Nasal Cannula Nasal Cannula O2 Flow Rate 3.0 3.0 3.0 12/07/16 12/07/16 03:58 04:14 Temp 97.3 97.3 Pulse 96 96 Resp 18 B/P 151/79 151/79 Pulse Ox 94 O2 Delivery Nasal Cannula O2 Flow Rate 3.0 Intake and Output 12/06/16 12/06/16 12/07/16 15:00 23:00 07:00 Output Total 2500 ml 950 ml Balance -2500 ml -950 ml LUANA FENG III DO Dec 07, 2016 07:45
[2016-12-07] MEDS: IPRATROPIUM BROMIDE 0.5 MG/2.5 ML NEBU. NEB SCH ×4 (08:26→21:04)
--- NOTE | 2016-12-07 09:10 | PDOC ---
Infectious Disease Note Subjective Subjective Comfortable, denies pain c/o mouth/throat dryness, thirsty No bloating or cramps TPN ROS ROS GEN: Denies fevers, chills, sweats CV: Denies chest pain RESP: Denies shortness of air, cough GI: Denies n/v/d NEURO: Denies confusion, dizziness Vital Sign Vital Signs Vital Signs Date Time Temp Pulse Resp B/P Pulse Ox O2 Delivery O2 Flow Rate FiO2 12/07/16 08:27 97 Nasal Cannula 3.0 12/07/16 07:25 97.7 93 18 168/78 97.7 Physical Exam PHYSICAL EXAM GENERAL: Lying down, tired appearance, HEENT: OC/OP very dry NECK: Supple, no JVD, no LN LUNGS: Clear HEART: S1S2, no gallop, no murmur ABD: Soft, NT, BS present EXT: No edema, no cyanosis 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 clean Labs Lab Laboratory Tests Test 12/06/16 11:54 12/06/16 17:59 12/06/16 20:41 12/07/16 01:59 Glucose (Fingerstick) 217mg/dL (70-99) 239mg/dL (70-99) 179mg/dL (70-99) 184mg/dL (70-99) Test 12/07/16 05:19 12/07/16 05:30 Glucose (Fingerstick) 180mg/dL (70-99) Phosphorus Level 3.7mg/dL (2.6-4.7) Magnesium Level 2.0mg/dL (1.8-2.4) Micro URINE CULTURE RES 1 Final No growth in 48 hours. Objective Assessment Fever, possibly reactive from PRBCs and procedure. Resolved S/P VT/VF Cardiac arrest DVT/PE. s/p IVC filter. 11/29 Suspected ischemic bowel Lactic acidosis Leukocytosis likely reactive, trending down. ? aspiration GPC bacteremia. Peptostreptococcus, 11/24 09/08 cults. On Zosyn since at lest [place]. improved Respiratory failure. Anemia. s/p PRBCs Dysphagia, silent aspiration - failed Swallow 12/05 Plan Plan of Care Zosyn - d/c Repeat BC Neg, 11/28 Supportive care D/w daughter Attending Co-Sign Attending Co-Sign The patient was seen and interviewed as well as examined at the bedside. The chart was reviewed. The case was discussed. Agree with the plan of care. DENYS ALVARENGA APRN Dec 07, 2016 09:10 BOBBY MOORE MD Dec 07, 2016 12:09
[2016-12-07] MEDS: FUROSEMIDE 40 MG/4 ML VIAL. IVP SCH (09:27)
[2016-12-07] MEDS: PANTOPRAZOLE IV PUSH 40 MG VIAL. IVP SCH (09:27)
[2016-12-07] MEDS: ASPIRIN 300 MG SUPP.RECT PR SCH (09:28)
[2016-12-07 10:19] LABS: BASO # 0.2 x10^3/uL (0.0-0.2); BASO % 1 % (0-3); EOS % 5 % (0-3); HEMATOCRIT 23.7 % (39.0-53.0); HEMOGLOBIN 7.6 g/dL (13.0-17.5); LYMPH # 1.3 x10^3/uL (1.0-4.8); LYMPH % 8 % (24-48); MEAN CORPUSCULAR HEMOGLOBIN 30 pg (25-35); MEAN CORPUSCULAR HGB CONC 32 g/dL (31-37); MEAN CORPUSCULAR VOLUME 92 fL (79-100); MONO % 10 % (0-9); NEUT % 76 % (31-73); PLATELET COUNT 393 x10^3/uL (140-400); RED BLOOD COUNT 2.58 x10^6/uL (4.30-5.70); WHITE BLOOD COUNT 15.7 x10^3/uL (4.0-11.0)
[2016-12-07 10:33] LABS: ALBUMIN 2.9 g/dL (3.4-5.0); ALBUMIN/GLOBULIN RATIO 0.8 (1.0-1.7); CALCIUM 9.3 mg/dL (8.5-10.1); CREATININE 1.9 mg/dL (0.7-1.3); GFR 35.1; POTASSIUM 4.6 mmol/L (3.5-5.1); TOTAL BILIRUBIN 2.1 mg/dL (0.2-1.0); TOTAL PROTEIN 6.5 g/dL (6.4-8.2)
[2016-12-07 10:40] VITALS: BP 155/71
[2016-12-07] MEDS: ANTI-COAG MONITOR BY PHARMACY. MC PRN (12:19)
[2016-12-07] MEDS: TPN PER PHARMACY MC PRN (12:20)
[2016-12-07 15:48] VITALS: BP 150/85
[2016-12-07] MEDS: LORAZEPAM 2 MG/ML VIAL. IV PRN ×2 (17:35→23:08)
[2016-12-07 19:30] VITALS: BP 158/76
[2016-12-07] MEDS: INSULIN DETEMIR 300 UNITS/3 ML INSULN.PEN. SQ SCH (20:22)
[2016-12-07] MEDS ORDERED: [UNRECOGNIZED DRUG - OTHER] IV SCH ×10 (22:00)
[2016-12-07] MEDS ORDERED: AMINO ACIDS IV SCH ×10 (22:00)
[2016-12-07] MEDS ORDERED: DEXTROSE 70% IV SCH ×10 (22:00)
[2016-12-07] MEDS ORDERED: TOTAL PARENTERAL NUTRITION IV SCH ×10 (22:00)
[2016-12-07 23:09] VITALS: BP 147/84
[2016-12-08 03:00] VITALS: BP 144/84
[2016-12-08] MEDS: PANTOPRAZOLE IV PUSH 40 MG VIAL. IVP SCH (03:49)
[2016-12-08] MEDS: METOPROLOL TARTRATE 5 MG/5 ML VIAL. IVP SCH ×4 (03:50→21:18)
[2016-12-08 04:34] LABS: BASO # 0.1 x10^3/uL (0.0-0.2); BASO % 1 % (0-3); EOS % 5 % (0-3); HEMATOCRIT 25.1 % (39.0-53.0); HEMOGLOBIN 8.1 g/dL (13.0-17.5); LYMPH # 1.6 x10^3/uL (1.0-4.8); LYMPH % 12 % (24-48); MEAN CORPUSCULAR HEMOGLOBIN 30 pg (25-35); MEAN CORPUSCULAR HGB CONC 32 g/dL (31-37); MEAN CORPUSCULAR VOLUME 94 fL (79-100); MONO % 12 % (0-9); NEUT % 70 % (31-73); PLATELET COUNT 408 x10^3/uL (140-400); RED BLOOD COUNT 2.68 x10^6/uL (4.30-5.70); RED CELL DISTRIBUTION WIDTH 17.1 % (11.5-14.5)
[2016-12-08 04:38] LABS: CALCIUM 9.4 mg/dL (8.5-10.1); CREATININE 1.7 mg/dL (0.7-1.3); GFR 39.9; POTASSIUM 4.5 mmol/L (3.5-5.1)
[2016-12-08] MEDS: INSULIN ASPART 300 UNITS/3 ML INSULN.PEN SQ SCH ×3 (06:00→18:13)
[2016-12-08 07:30] VITALS: BP 155/90
[2016-12-08] MEDS: IPRATROPIUM BROMIDE 0.5 MG/2.5 ML NEBU. NEB SCH ×4 (08:00→19:13)
[2016-12-08] MEDS: FUROSEMIDE 40 MG/4 ML VIAL. IVP SCH (08:37)
--- NOTE | 2016-12-08 09:27 | PDOC ---
SUBJECTIVE ROS [place]/ ATN + ? CKD III Doing Ok overall, Very thirsty, C/o Dry mouth CVS: no Orthopnea, no CP RESP: no SOB, no ZARATE GI: no Nausea, no Vomiting : no Dysuria, no Urgency OBJECTIVE Vital Signs Vital Signs Date Time Temp Pulse Resp B/P Pulse Ox O2 Delivery O2 Flow Rate FiO2 12/08/16 08:40 93 Room Air 12/08/16 07:30 98.6 97 20 155/90 98.6 12/07/16 15:49 1.0 I & 0 Intake and Output 12/08/16 07:00 Intake Total 234 ml Output Total 2275 ml Balance -2041 ml Intake Oral 0 ml IV Total 234 ml Output Urine Total 2275 ml PHYSICAL EXAM Physical Exam General Appearance: AAO x 3 In no Distress Eyes: VIsion Unchanged Conjunctiva Normal EN: No EN Drainage Mucous Memb. dry (NPO) Neck: no JVD no JVP Supple no Thyromegaly CVS: S1 S2 no audible Murmur No Gallop No Rub no Edema Resp: no Rales no Rhonchi no Acc. Muscle use GI: BS +ve NO Bruit Non Tender Non Distended : no CVA tenderness; no Suprapubic Tenderness Assessment & Plan [place]: cannot R/o ATN. Creat is slightly better today. ? CKD - Will await a new baseline ^Na - 1L D5W and add water to TPN Pulm Edema on previous CXR - will hold lasix due to dry mouth, ^ed Thirst and adequate Resp status. Recheck CXR today for clearing Nutrition - TPN ongoing fo rnow Cmyopathy - LHC rel WNL h/o DVTs - ? Etio anemia - ct EPO for now COMMENT/RELEVANT DATA Meds Current Medications Medications (Trade) Dose Ordered Sig/Kika Start Time Stop Time Status Last Admin Dose Admin Acetaminophen (Acetaminophen Supp) 650 mg PRN Q6HRS PRN 12/02/16 13:45 Acetaminophen (Tylenol) 650 mg 1X PRN PRN 12/02/16 06:30 12/03/16 06:29 DC Acetaminophen 650 mg 650 mg PRN Q6HRS PRN 11/25/16 23:30 12/02/16 13:29 DC 11/28/16 04:19 650 MG Albumin Human (Albuminar) 100 ml @ 100 mls/hr TID 11/27/16 12:00 11/29/16 09:59 DC 11/29/16 08:56 100 MLS/HR Albuterol Sulfate 2.5 mg 2.5 mg 1X ONCE 11/27/16 06:45 11/27/16 06:46 DC 11/27/16 07:21 2.5 MG Amiodarone HCl (Cordarone) 450 mg STK-MED ONCE 11/25/16 12:00 11/25/16 14:56 DC Aspirin (Aspirin) 300 mg DAILY 11/24/16 09:00 12/07/16 09:28 300 MG Atropine Sulfate 1.5 mg STK-MED ONCE 11/25/16 12:00 11/25/16 14:56 DC Barium Sulfate (Varibar Thin Liquid Apple) 148 gm 1X ONCE 12/05/16 14:00 12/05/16 14:01 DC 12/05/16 13:56 148 GM Budesonide 0.5 mg 0.5 mg RTBID 11/28/16 20:00 12/06/16 18:19 DC 12/06/16 07:36 0.5 MG Calcium Chloride/ Sodium Chloride (Iv Sodium Chloride 0.9% 100ml) 120 ml @ 240 mls/hr 1X ONCE 11/26/16 13:15 11/26/16 13:44 DC 11/26/16 13:22 240 MLS/HR Chlorhexidine Gluconate 15 ml 15 ml BID 11/25/16 21:00 11/26/16 17:49 DC 11/26/16 08:37 15 ML Dextrose (Dextrose 50%-Water Syringe) 12.5 gm PRN Q15MIN PRN 12/05/16 14:19 Enoxaparin Sodium (Lovenox 100mg Syringe) 100 mg Q12HR 12/05/16 09:00 12/08/16 08:37 100 MG Enoxaparin Sodium (Lovenox Per Pharmacy Prophylaxis Dosing) 1 each PRN DAILY PRN 11/25/16 08:45 UNV Enoxaparin Sodium (Lovenox Per Pharmacy Treatment Dosing) 1 each PRN DAILY PRN 12/05/16 09:00 Epinephrine HCl 4 mg STK-MED ONCE 11/25/16 12:00 11/25/16 14:56 DC Epinephrine HCl (Adrenalin) 30 mg STK-MED ONCE 11/25/16 12:00 11/25/16 14:56 DC Epinephrine HCl/ Sodium Chloride (Adrenalin/Iv Sodium Chloride 0.9% 250ml) 254 ml @ 0 mls/hr CONT PRN 11/24/16 07:30 11/27/16 08:25 DC 11/26/16 03:05 11.43 MLS/HR Famotidine (Pepcid) 20 mg QHS 11/24/16 21:00 11/28/16 09:46 DC 11/27/16 21:12 20 MG Fentanyl Citrate (Fentanyl 2ml Vial) 25 mcg 1X ONCE 12/04/16 07:45 12/04/16 07:46 DC 12/04/16 07:44 25 MCG Furosemide (Lasix) 40 mg DAILY 12/04/16 06:30 12/06/16 15:12 DC 12/06/16 10:20 40 MG Furosemide 20 mg 20 mg DAILY 12/07/16 09:00 12/08/16 08:37 20 MG Furosemide 40 mg 40 mg 1X ONCE 11/30/16 15:00 11/30/16 15:01 DC 11/30/16 15:02 40 MG Heparin Sodium (Porcine) 10,000 unit STK-MED ONCE 12/04/16 07:05 12/04/16 07:06 DC Heparin Sodium (Porcine) 1500 unit 1,500 unit PRN Q6HRS PRN 11/24/16 16:45 11/28/16 17:12 DC 11/26/16 12:08 1,500 UNIT Heparin Sodium (Porcine) 2500 unit 2,500 unit 1X ONCE 11/28/16 14:45 11/28/16 14:46 DC 11/28/16 15:45 2,500 UNIT Heparin Sodium/ Dextrose 500 ml @ 0 mls/hr CONT PRN 11/29/16 15:15 12/05/16 08:51 DC 12/04/16 19:23 0 MLS/HR Heparin Sodium/ Sodium Chloride 1,000 ml @ As Directed STK-MED ONCE 12/04/16 12:59 12/05/16 08:51 DC Hydralazine HCl (Apresoline) 10 mg PRN Q4HRS PRN 11/27/16 12:45 12/03/16 20:18 10 MG Info (Anti-Coagulation Monitoring By Pharmacy) 1 each PRN DAILY PRN 12/05/16 10:15 12/07/16 12:19 1 EACH Info (Do NOT chart on this entry -- for MONITORING) 1 each PRN DAILY PRN 12/04/16 07:45 12/06/16 07:44 DC Info 1 ea 1 ea DAILY PRN 11/26/16 08:45 12/05/16 09:17 DC Info 1 each 1 each PRN DAILY PRN 11/29/16 10:30 12/01/16 10:29 DC Insulin Aspart (Novolog) 0-7 UNITS Q6HRS 11/28/16 01:00 12/07/16 17:38 2 UNITS Insulin Detemir (Levemir) 20 units QHS 12/04/16 21:00 12/07/16 20:22 20 UNITS Insulin Human Regular 150 unit/ Sodium Chloride 151.5 ml @ 9.16 mls/hr CONT PRN 11/24/16 09:30 11/27/16 08:25 DC 11/24/16 10:13 3.4 MLS/HR Iodixanol (Visipaque 320) 100 ml STK-MED ONCE 12/04/16 12:59 12/04/16 13:00 DC Iohexol (Omnipaque 300 Mg/ml) 30 ml 1X ONCE 11/29/16 10:00 11/29/16 10:15 DC 11/29/16 10:22 30 ML Ipratropium [place] (Atrovent) 0.5 mg RTQID 11/28/16 12:00 12/08/16 08:00 0.5 MG Iron Sucrose/ Sodium Chloride (Venofer/Iv Sodium Chloride 0.9% 250ml) 275 ml @ 78.571 mls/ hr 1X ONCE 12/01/16 09:00 12/01/16 12:29 DC 12/01/16 09:58 78.571 MLS/HR Lidocaine HCl 20 ml 1X ONCE 12/04/16 07:45 12/04/16 07:46 DC 12/04/16 07:43 20 ML Lidocaine HCl 20 ml 20 ml STK-MED ONCE 12/04/16 12:59 12/04/16 13:00 DC Lidocaine/Sodium Bicarbonate (Buffered Lidocaine 1%) 2 ml 1X ONCE 11/29/16 10:00 11/29/16 10:15 DC 11/29/16 10:22 2 ML Linezolid 300 ml @ 300 mls/hr Q12HR 11/28/16 21:00 12/02/16 08:23 DC 12/01/16 21:13 300 MLS/HR Linezolid 600 mg 600 mg BID 11/28/16 09:00 11/28/16 19:45 DC Lorazepam (Ativan) 0.5 mg PRN Q6HRS PRN 12/07/16 16:30 12/07/16 23:08 0.5 MG Lorazepam 1 mg 1 mg PRN Q30MIN PRN 11/24/16 08:45 11/28/16 19:45 DC 11/25/16 12:26 1 MG Magnesium Sulfate/ Dextrose 50 ml @ 25 mls/hr PRN DAILY PRN 11/27/16 08:45 Magnesium Sulfate/ Dextrose (Magnesium Sulfate PREMIX 2GM) 50 ml @ 25 mls/hr 1X ONCE 11/25/16 12:30 11/25/16 14:29 DC 11/25/16 13:28 25 MLS/HR Meperidine HCl (Demerol) 12.5 mg PRN Q30MIN PRN 11/24/16 08:45 11/24/16 22:21 DC 11/24/16 22:21 12.5 MG Metoprolol Tartrate (Lopressor) 5 mg Q6HRS 11/27/16 15:30 11/27/16 19:11 DC 11/27/16 15:40 5 MG Metoprolol Tartrate 5 mg 5 mg Q6HRS@04,10,16,22 11/27/16 22:00 12/08/16 03:50 5 MG Midazolam HCl (Versed 100mg/ 100ml Premix) 100 ml @ 0 mls/hr CONT PRN 11/25/16 23:30 11/26/16 17:49 DC Midazolam HCl (Versed) 0.5 mg 1X ONCE 12/04/16 07:45 12/04/16 07:46 DC 12/04/16 07:44 0.5 MG Morphine Sulfate 4 mg PRN Q2HR PRN 12/04/16 19:15 12/05/16 09:17 DC Multi-Ingred Cream/Lotion/Oil/ Oint (Artificial Tears Eye Oint) 1 radha PRN Q6HRS PRN 11/24/16 08:45 Nicardipine HCl/ Sodium Chloride (Cardene/Iv Sodium Chloride 0.9% 250ml) 270 ml @ 0 mls/hr CONT PRN 11/27/16 20:45 12/05/16 09:17 DC 11/28/16 01:13 81 MLS/HR Nitroglycerin (Nitroglycerin) 200 mcg 1X ONCE 12/04/16 07:45 12/04/16 07:46 DC 12/04/16 07:42 200 MCG Nitroglycerin 0.4 mg 0.4 mg STK-MED ONCE 11/27/16 11:16 11/27/16 11:17 DC 11/27/16 11:26 0.4 MG Nitroglycerin/ Dextrose (Nitroglycerin Drip) 250 ml @ 0 mls/hr CONT PRN 11/30/16 10:45 12/05/16 09:17 DC 11/30/16 10:53 7.5 MLS/HR Ondansetron HCl (Zofran) 4 mg PRN Q6HRS PRN 12/04/16 06:30 Ondansetron HCl 4 mg 4 mg PRN Q6HRS PRN 11/26/16 13:45 12/04/16 06:30 DC 12/03/16 21:17 4 MG Pantoprazole Sodium (Protonix Vial) 40 mg DAILYAC 12/05/16 06:27 12/08/16 03:49 40 MG Pantoprazole Sodium/Sodium Chloride (Protonix Iv/Iv Sodium Chloride 0.9% 100ml) 100 ml @ 10 mls/hr Q10H PRN 11/28/16 10:00 12/01/16 15:59 DC 12/01/16 13:01 10 MLS/HR Piperacillin Sod/ Tazobactam Sod 3.375 gm/Sodium Chloride 50 ml @ 100 mls/hr Q6HRS 11/25/16 00:00 12/07/16 12:10 DC 12/07/16 05:21 100 MLS/HR Piperacillin Sod/ Tazobactam Sod 1 each 1 each PRN DAILY PRN 11/24/16 08:15 11/24/16 13:06 DC Piperacillin Sod/ Tazobactam Sod/ Sodium Chloride (Zosyn/Iv Sodium Chloride 0.9% 100ml) 100 ml @ 200 mls/hr Q6HRS 11/24/16 08:30 11/24/16 11:15 DC 11/24/16 10:10 200 MLS/HR Potassium Chloride/ Magnesium Sulfate/ Calcium Gluconate/ Multivitamins/ Chromium/Copper/ Manganese/Seleni/ Zn/Total Parenteral Nutrition/Amino Acids/Dextrose/ Fat Emulsion Intravenous (Calcium Gluconate/ Infuvite Adult/ Multitrace-5 Conc/ Tpn - Tpn Fluid/ Trophami... 1,512 ml @ 63 mls/hr TPN CONT 11/28/16 22:00 11/29/16 21:59 DC 11/28/16 21:18 63 MLS/HR Potassium Chloride/ Magnesium Sulfate/ Calcium Gluconate/ Multivitamins/ Chromium/Copper/ Manganese/Seleni/ Zn/Total Parenteral Nutrition/Amino Acids/Dextrose/ Fat Emulsion Intravenous (Infuvite Adult/ Multitrace-5 Conc/ Tpn - Tpn Fluid/ Trophamine/ Dextrose 70%-Water Iv So... 1,512 ml @ 63 mls/hr TPN CONT 11/27/16 22:00 11/28/16 21:59 DC 11/27/16 21:22 63 MLS/HR Potassium Chloride/ Potassium Acetate/ Magnesium Sulfate/ Calcium Gluconate/ Multivitamins/ Chromium/Copper/ Manganese/Seleni/ Zn/Total Parenteral Nutrition/Amino Acids/Dextrose/ Fat Emulsion Intravenous (Calcium Gluconate/ Infuvite Adult/ Multitrace-5 Conc/ Tpn - Tpn Flu... 1,512 ml @ 63 mls/hr TPN CONT 11/29/16 22:00 11/30/16 21:59 DC 11/29/16 21:54 63 MLS/HR Potassium Acetate/ Potassium Phosphate/ Magnesium Sulfate/ Calcium Gluconate/ Multivitamins/ Chromium/Copper/ Manganese/Seleni/ Zn/Insulin Human Regular/Total Parenteral Nutrition/Amino Acids/Dextrose/ Fat Emulsion Intravenous (Potassium Phosphate/Calcium Gluconate/ Infuvite Asim... 1,512 ml @ 63 mls/hr TPN CONT 12/07/16 22:00 12/08/16 21:59 12/07/16 20:23 63 MLS/HR Potassium Chloride 50 ml @ 50 mls/hr Q1H 11/26/16 10:30 11/26/16 12:29 DC 11/26/16 11:23 50 MLS/HR Propofol (Diprivan) 100 ml @ 0 mls/hr CONT PRN 11/24/16 08:45 11/26/16 17:49 DC 11/26/16 07:38 5.5 MLS/HR Sodium Bicarbonate 100 meq/Sterile Water 1,100 ml @ 100 mls/hr Q11H 11/26/16 13:00 11/27/16 11:25 DC 11/27/16 00:56 100 MLS/HR Sodium Bicarbonate 150 meq 150 meq STK-MED ONCE 11/25/16 12:00 11/25/16 14:56 DC Sodium Bicarbonate 50 meq/Sodium Chloride 1,050 ml @ 125 mls/hr Q8H24M 11/24/16 08:30 11/26/16 12:41 DC 11/26/16 11:24 125 MLS/HR Sodium Bicarbonate 50 meq 1X ONCE 11/27/16 12:45 11/27/16 12:46 DC 11/27/16 13:24 50 MEQ Sodium Chloride (Iv Sodium Chloride 0.9% 1000ml Bag) 1,000 ml @ 1,000 mls/hr 1X ONCE 11/24/16 11:00 11/24/16 11:59 DC 11/24/16 11:00 1,000 MLS/HR Sodium Chloride (Normal Saline Flush) 3 ml QSHIFT PRN 11/24/16 08:45 Sodium Chloride 90 meq/Potassium Chloride 50 meq/ Magnesium Sulfate 10 meq/Calcium Gluconate 10 meq/ Multivitamins 10 ml/Chromium/ Copper/Manganese/ Seleni/Zn 1 ml/ Total Parenteral Nutrition/Amino Acids/Dextrose/ Fat Emulsion Intravenous 1,594.468 ml @ 66.436 m... TPN CONT 11/27/16 22:00 11/28/16 21:59 Cancel Sodium Chloride/ Potassium Chloride/ Magnesium Sulfate/ Calcium Gluconate/ Multivitamins/ Chromium/Copper/ Manganese/Seleni/ Zn/Total Parenteral Nutrition/Amino Acids/Dextrose/ Fat Emulsion Intravenous (Sodium Chloride/ Infuvite Adult/ Multitrace-5 Conc/ Tpn - Tpn Fluid/ Trophami... 1,594.468 ml @ 66.436 m... TPN CONT 11/26/16 22:00 3/23/17 21:59 DC 11/26/16 21:27 66.436 MLS/HR Vancomycin HCl 1 each 1X ONCE 11/29/16 21:30 11/29/16 21:30 DC Vancomycin HCl (Vanco Per Pharmacy) 1 each PRN DAILY PRN 11/25/16 01:00 11/25/16 08:57 DC 11/25/16 03:30 1 EACH Vancomycin HCl 1.5 gm/Sodium Chloride 500 ml @ 250 mls/hr Q24H 11/25/16 10:00 11/25/16 10:00 DC Vancomycin HCl 1 each 1 each PRN DAILY PRN 11/27/16 22:00 11/28/16 08:30 DC 11/27/16 21:38 1 EACH Vancomycin HCl 2 gm/Sodium Chloride 500 ml @ 250 mls/hr 1X ONCE 11/27/16 22:00 11/27/16 23:59 DC 11/27/16 22:57 250 MLS/HR Vancomycin HCl/ Sodium Chloride (Iv Sodium Chloride 0.9% 250ml) 250 ml @ 250 mls/hr 1X ONCE 11/24/16 21:30 11/24/16 22:29 UNV Vancomycin HCl/ Sodium Chloride (Iv Sodium Chloride 0.9% 500ml Bag) 500 ml @ 250 mls/hr Q24H 11/28/16 22:00 11/28/16 22:00 DC Vecuronium [place] (Norcuron Bolus) 9 mg PRN Q30MIN PRN 11/24/16 08:45 11/26/16 17:49 DC 11/24/16 17:38 9 MG Verapamil HCl (Verapamil) 5 mg STK-MED ONCE 12/04/16 07:30 12/05/16 08:38 DC Lab Laboratory Tests Test 12/07/16 12:50 12/07/16 17:32 12/07/16 20:20 12/07/16 23:05 Glucose (Fingerstick) 216mg/dL (70-99) 212mg/dL (70-99) 189mg/dL (70-99) 190mg/dL (70-99) Test 12/08/16 04:15 12/08/16 06:04 White Blood Count 13.0x10^3/uL (4.0-11.0) Red Blood Count 2.68x10^6/uL (4.30-5.70) Hemoglobin 8.1g/dL (13.0-17.5) Hematocrit 25.1% (39.0-53.0) Mean Corpuscular Volume 94fL (79-100) Mean Corpuscular Hemoglobin 30pg (25-35) Mean Corpuscular Hemoglobin Concent 32g/dL (31-37) Red Cell Distribution Width 17.1% (11.5-14.5) Platelet Count 408x10^3/uL (140-400) Neutrophils (%) (Auto) 70% (31-73) Lymphocytes (%) (Auto) 12% (24-48) Monocytes (%) (Auto) 12% (0-9) Eosinophils (%) (Auto) 5% (0-3) Basophils (%) (Auto) 1% (0-3) Neutrophils # (Auto) 9.1x10^3uL (1.8-7.7) Lymphocytes # (Auto) 1.6x10^3/uL (1.0-4.8) Monocytes # (Auto) 1.6x10^3/uL (0.0-1.1) Eosinophils # (Auto) 0.6x10^3/uL (0.0-0.7) Basophils # (Auto) 0.1x10^3/uL (0.0-0.2) Sodium Level 147mmol/L (136-145) Potassium Level 4.5mmol/L (3.5-5.1) Chloride Level 111mmol/L (98-107) Carbon Dioxide Level 26mmol/L (21-32) Anion Gap 10 (6-14) Blood Urea Nitrogen 48mg/dL (8-26) Creatinine 1.7mg/dL (0.7-1.3) Estimated GFR (Cockcroft-Gault) 39.9 Glucose Level 174mg/dL (70-99) Calcium Level 9.4mg/dL (8.5-10.1) Glucose (Fingerstick) 177mg/dL (70-99) ASHLEY DIAMOND MD Dec 08, 2016 09:27
[2016-12-08] MEDS ORDERED: IV DEXTROSE 5% 1,000 ML IV SCH (09:30)
--- NOTE | 2016-12-08 09:30 | PDOC ---
PULMONARY PROGRESS NOTES Subjective pt working with PT no resp complaints Vitals Vital Signs Date Time Temp Pulse Resp B/P Pulse Ox O2 Delivery O2 Flow Rate FiO2 12/08/16 08:40 93 Room Air 12/08/16 07:30 98.6 97 20 155/90 98.6 12/07/16 15:49 1.0 Comments ros as mentioned as above. discussed w rn, other sys otherwise neg General: Alert, No acute distress HEENT: Other (nc at, perrl, nose clear, shallow oropharynx. neck, + jvd, no thyromegaly, no lap) Lungs: Clear, Other (Negative accessory muscle use; currently on 3L O2 NC ) Cardiovascular: S1, S2 Abdomen: Soft, Non-tender, Other (no mass) Neuro Exam: Alert Extremities: Other (2=edema) Skin: Warm Labs Laboratory Tests Test 12/06/16 11:54 12/06/16 17:59 12/06/16 20:41 12/07/16 01:59 Glucose (Fingerstick) 217mg/dL (70-99) 239mg/dL (70-99) 179mg/dL (70-99) 184mg/dL (70-99) Test 12/07/16 05:19 12/07/16 05:30 12/07/16 12:50 12/07/16 17:32 Glucose (Fingerstick) 180mg/dL (70-99) 216mg/dL (70-99) 212mg/dL (70-99) White Blood Count 15.7x10^3/uL (4.0-11.0) Red Blood Count 2.58x10^6/uL (4.30-5.70) Hemoglobin 7.6g/dL (13.0-17.5) Hematocrit 23.7% (39.0-53.0) Mean Corpuscular Volume 92fL (79-100) Mean Corpuscular Hemoglobin 30pg (25-35) Mean Corpuscular Hemoglobin Concent 32g/dL (31-37) Red Cell Distribution Width 17.0% (11.5-14.5) Platelet Count 393x10^3/uL (140-400) Neutrophils (%) (Auto) 76% (31-73) Lymphocytes (%) (Auto) 8% (24-48) Monocytes (%) (Auto) 10% (0-9) Eosinophils (%) (Auto) 5% (0-3) Basophils (%) (Auto) 1% (0-3) Neutrophils # (Auto) 11.9x10^3uL (1.8-7.7) Lymphocytes # (Auto) 1.3x10^3/uL (1.0-4.8) Monocytes # (Auto) 1.6x10^3/uL (0.0-1.1) Eosinophils # (Auto) 0.7x10^3/uL (0.0-0.7) Basophils # (Auto) 0.2x10^3/uL (0.0-0.2) Sodium Level 147mmol/L (136-145) Potassium Level 4.6mmol/L (3.5-5.1) Chloride Level 111mmol/L (98-107) Carbon Dioxide Level 27mmol/L (21-32) Anion Gap 9 (6-14) Blood Urea Nitrogen 48mg/dL (8-26) Creatinine 1.9mg/dL (0.7-1.3) Estimated GFR (Cockcroft-Gault) 35.1 BUN/Creatinine Ratio 25 (6-20) Glucose Level 187mg/dL (70-99) Calcium Level 9.3mg/dL (8.5-10.1) Phosphorus Level 3.7mg/dL (2.6-4.7) Magnesium Level 2.0mg/dL (1.8-2.4) Total Bilirubin 2.1mg/dL (0.2-1.0) Aspartate Amino Transf (AST/SGOT) 40U/L (15-37) Alanine Aminotransferase (ALT/SGPT) 81U/L (16-63) Alkaline Phosphatase 194U/L (46-116) Total Protein 6.5g/dL (6.4-8.2) Albumin 2.9g/dL (3.4-5.0) Albumin/Globulin Ratio 0.8 (1.0-1.7) Test 12/07/16 20:20 12/07/16 23:05 12/08/16 04:15 12/08/16 06:04 Glucose (Fingerstick) 189mg/dL (70-99) 190mg/dL (70-99) 177mg/dL (70-99) White Blood Count 13.0x10^3/uL (4.0-11.0) Red Blood Count 2.68x10^6/uL (4.30-5.70) Hemoglobin 8.1g/dL (13.0-17.5) Hematocrit 25.1% (39.0-53.0) Mean Corpuscular Volume 94fL (79-100) Mean Corpuscular Hemoglobin 30pg (25-35) Mean Corpuscular Hemoglobin Concent 32g/dL (31-37) Red Cell Distribution Width 17.1% (11.5-14.5) Platelet Count 408x10^3/uL (140-400) Neutrophils (%) (Auto) 70% (31-73) Lymphocytes (%) (Auto) 12% (24-48) Monocytes (%) (Auto) 12% (0-9) Eosinophils (%) (Auto) 5% (0-3) Basophils (%) (Auto) 1% (0-3) Neutrophils # (Auto) 9.1x10^3uL (1.8-7.7) Lymphocytes # (Auto) 1.6x10^3/uL (1.0-4.8) Monocytes # (Auto) 1.6x10^3/uL (0.0-1.1) Eosinophils # (Auto) 0.6x10^3/uL (0.0-0.7) Basophils # (Auto) 0.1x10^3/uL (0.0-0.2) Sodium Level 147mmol/L (136-145) Potassium Level 4.5mmol/L (3.5-5.1) Chloride Level 111mmol/L (98-107) Carbon Dioxide Level 26mmol/L (21-32) Anion Gap 10 (6-14) Blood Urea Nitrogen 48mg/dL (8-26) Creatinine 1.7mg/dL (0.7-1.3) Estimated GFR (Cockcroft-Gault) 39.9 Glucose Level 174mg/dL (70-99) Calcium Level 9.4mg/dL (8.5-10.1) Laboratory Tests Test 12/07/16 12:50 12/07/16 17:32 12/07/16 20:20 12/07/16 23:05 Glucose (Fingerstick) 216mg/dL (70-99) 212mg/dL (70-99) 189mg/dL (70-99) 190mg/dL (70-99) Test 12/08/16 04:15 12/08/16 06:04 White Blood Count 13.0x10^3/uL (4.0-11.0) Red Blood Count 2.68x10^6/uL (4.30-5.70) Hemoglobin 8.1g/dL (13.0-17.5) Hematocrit 25.1% (39.0-53.0) Mean Corpuscular Volume 94fL (79-100) Mean Corpuscular Hemoglobin 30pg (25-35) Mean Corpuscular Hemoglobin Concent 32g/dL (31-37) Red Cell Distribution Width 17.1% (11.5-14.5) Platelet Count 408x10^3/uL (140-400) Neutrophils (%) (Auto) 70% (31-73) Lymphocytes (%) (Auto) 12% (24-48) Monocytes (%) (Auto) 12% (0-9) Eosinophils (%) (Auto) 5% (0-3) Basophils (%) (Auto) 1% (0-3) Neutrophils # (Auto) 9.1x10^3uL (1.8-7.7) Lymphocytes # (Auto) 1.6x10^3/uL (1.0-4.8) Monocytes # (Auto) 1.6x10^3/uL (0.0-1.1) Eosinophils # (Auto) 0.6x10^3/uL (0.0-0.7) Basophils # (Auto) 0.1x10^3/uL (0.0-0.2) Sodium Level 147mmol/L (136-145) Potassium Level 4.5mmol/L (3.5-5.1) Chloride Level 111mmol/L (98-107) Carbon Dioxide Level 26mmol/L (21-32) Anion Gap 10 (6-14) Blood Urea Nitrogen 48mg/dL (8-26) Creatinine 1.7mg/dL (0.7-1.3) Estimated GFR (Cockcroft-Gault) 39.9 Glucose Level 174mg/dL (70-99) Calcium Level 9.4mg/dL (8.5-10.1) Glucose (Fingerstick) 177mg/dL (70-99) Comments cxr reviewed, increased vm, ll infilt atelectasis effusion R>L Impression . 1. Acute respiratory failure secondary to [id number] cardiopulmonary arrest. 2. Hyperlipidemia. 3. Diabetes. 4. Positive venous Doppler/ high prob V/Q, on Heparin/ popliteal nonocclusive thrombus. 5. Metabolic acidosis sec to code, improved. 6. PE, Bilateral DVT/ PE- S/p IVC. (Will need lifelong anticoag due to catastrophic nature of his presentation. Will transition to lovenox bid, then eliquis when no more procedures needed.(per [facility]) 7. Ischemia CM 35-40%, cath no significant lesion 8. Acute kidney injury 9. anemia, 10. wheezing, acute bronchospasm, resolved 11. abnl cxr, suspect chf1. 12. GPC bacteremia Plan . pt improving, will need rehab, placement in progress cath report noted up to chair resp status is compensated lifetime anticoagulation recommend by chalo antibx per MC Bass MD Dec 08, 2016 09:30
--- NOTE | 2016-12-08 09:34 | PDOC ---
Infectious Disease Note Subjective Subjective A litle restless night c/o mouth/throat dryness, thirsty No bloating or cramps TPN ROS ROS GEN: Denies fevers, chills, sweats HEENT: Denies blurred vision, sore throat CV: Denies chest pain RESP: Denies shortness of air, cough GI: Denies n/v/d NEURO: Denies confusion, dizziness MSK: Denies weakness, joint pain/swelling Vital Sign Vital Signs Vital Signs Date Time Temp Pulse Resp B/P Pulse Ox O2 Delivery O2 Flow Rate FiO2 12/08/16 08:40 93 Room Air 12/08/16 07:30 98.6 97 20 155/90 98.6 12/07/16 15:49 1.0 Physical Exam PHYSICAL EXAM GENERAL: Lying down, tired appearance, but comfortable HEENT: OC/OP very dry NECK: Supple, no JVD, no LN LUNGS: Clear HEART: S1S2, no gallop, no murmur ABD: Soft, NT, BS present EXT: No edema, no cyanosis [employer]: Alert, 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 clean Labs Lab Laboratory Tests Test 12/07/16 12:50 12/07/16 17:32 12/07/16 20:20 12/07/16 23:05 Glucose (Fingerstick) 216mg/dL (70-99) 212mg/dL (70-99) 189mg/dL (70-99) 190mg/dL (70-99) Test 12/08/16 04:15 12/08/16 06:04 White Blood Count 13.0x10^3/uL (4.0-11.0) Red Blood Count 2.68x10^6/uL (4.30-5.70) Hemoglobin 8.1g/dL (13.0-17.5) Hematocrit 25.1% (39.0-53.0) Mean Corpuscular Volume 94fL (79-100) Mean Corpuscular Hemoglobin 30pg (25-35) Mean Corpuscular Hemoglobin Concent 32g/dL (31-37) Red Cell Distribution Width 17.1% (11.5-14.5) Platelet Count 408x10^3/uL (140-400) Neutrophils (%) (Auto) 70% (31-73) Lymphocytes (%) (Auto) 12% (24-48) Monocytes (%) (Auto) 12% (0-9) Eosinophils (%) (Auto) 5% (0-3) Basophils (%) (Auto) 1% (0-3) Neutrophils # (Auto) 9.1x10^3uL (1.8-7.7) Lymphocytes # (Auto) 1.6x10^3/uL (1.0-4.8) Monocytes # (Auto) 1.6x10^3/uL (0.0-1.1) Eosinophils # (Auto) 0.6x10^3/uL (0.0-0.7) Basophils # (Auto) 0.1x10^3/uL (0.0-0.2) Sodium Level 147mmol/L (136-145) Potassium Level 4.5mmol/L (3.5-5.1) Chloride Level 111mmol/L (98-107) Carbon Dioxide Level 26mmol/L (21-32) Anion Gap 10 (6-14) Blood Urea Nitrogen 48mg/dL (8-26) Creatinine 1.7mg/dL (0.7-1.3) Estimated GFR (Cockcroft-Gault) 39.9 Glucose Level 174mg/dL (70-99) Calcium Level 9.4mg/dL (8.5-10.1) Glucose (Fingerstick) 177mg/dL (70-99) Objective Assessment Fever, possibly reactive from PRBCs and procedure. Resolved S/P VT/VF Cardiac arrest DVT/PE. s/p IVC filter. 11/29 Suspected ischemic bowel Lactic acidosis Leukocytosis likely reactive, trending down. ? aspiration GPC bacteremia. Peptostreptococcus, 11/24 1/2 cults. On Zosyn since at lest [place]. improved Respiratory failure. Anemia. s/p PRBCs Dysphagia, silent aspiration - failed Swallow 12/05 Plan Plan of Care ID to sign off D/w daughter BOBBY MOORE MD Dec 08, 2016 09:34
[2016-12-08] MEDS: ASPIRIN 300 MG SUPP.RECT PR SCH (09:59)
--- NOTE | 2016-12-08 10:20 | PDOC ---
PROGRESS NOTES Chief Complaint Chief Complaint S/P VT/VF Cardiac arrest Acute respiratory failure possibly / PE; extubated 11/27 DVT bilateral LEs - IVC filter placed 11/29 Acute blood loss anemia s/p transfusion dysphagia Silent Aspiration; failed swallow study HFrEF [place] vs. CKD DM II bactremia with Peptostreptococcus sp. 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, TPN running/ordered Pal out - no issues voiding Bruising left flank, better HGb stable PLAN: SW LTAC screen COnt otherwise Dc when ok with other specs and LTAC SNU avail WIll need low dose AC director long term care (PE and DVT) On SQ BID here lovenox plus ASA 300 LA Vitals Vitals Vital Signs Date Time Temp Pulse Resp B/P Pulse Ox O2 Delivery O2 Flow Rate FiO2 12/08/16 08:40 93 Room Air 12/08/16 07:30 98.6 97 20 155/90 98.6 12/07/16 15:49 1.0 Physical Exam General: Alert, Oriented X3, Cooperative, No acute distress Heart: Regular rate, Normal S1 Lungs: Clear, Other (Negative accessory muscle use; currently on 3L O2 NC ) Abdomen: Soft, No tenderness Extremities: No edema Skin: No rashes, Other (triple lumen in place) Labs LABS Laboratory Tests Test 12/07/16 12:50 12/07/16 17:32 12/07/16 20:20 12/07/16 23:05 Glucose (Fingerstick) 216mg/dL (70-99) 212mg/dL (70-99) 189mg/dL (70-99) 190mg/dL (70-99) Test 12/08/16 04:15 12/08/16 06:04 White Blood Count 13.0x10^3/uL (4.0-11.0) Red Blood Count 2.68x10^6/uL (4.30-5.70) Hemoglobin 8.1g/dL (13.0-17.5) Hematocrit 25.1% (39.0-53.0) Mean Corpuscular Volume 94fL (79-100) Mean Corpuscular Hemoglobin 30pg (25-35) Mean Corpuscular Hemoglobin Concent 32g/dL (31-37) Red Cell Distribution Width 17.1% (11.5-14.5) Platelet Count 408x10^3/uL (140-400) Neutrophils (%) (Auto) 70% (31-73) Lymphocytes (%) (Auto) 12% (24-48) Monocytes (%) (Auto) 12% (0-9) Eosinophils (%) (Auto) 5% (0-3) Basophils (%) (Auto) 1% (0-3) Neutrophils # (Auto) 9.1x10^3uL (1.8-7.7) Lymphocytes # (Auto) 1.6x10^3/uL (1.0-4.8) Monocytes # (Auto) 1.6x10^3/uL (0.0-1.1) Eosinophils # (Auto) 0.6x10^3/uL (0.0-0.7) Basophils # (Auto) 0.1x10^3/uL (0.0-0.2) Sodium Level 147mmol/L (136-145) Potassium Level 4.5mmol/L (3.5-5.1) Chloride Level 111mmol/L (98-107) Carbon Dioxide Level 26mmol/L (21-32) Anion Gap 10 (6-14) Blood Urea Nitrogen 48mg/dL (8-26) Creatinine 1.7mg/dL (0.7-1.3) Estimated GFR (Cockcroft-Gault) 39.9 Glucose Level 174mg/dL (70-99) Calcium Level 9.4mg/dL (8.5-10.1) Glucose (Fingerstick) 177mg/dL (70-99) Review of Systems Review of Systems limited weak, Assessment and Plan Assessmemt and Plan Problems Medical Problems: (1) Cardiac arrest Status: Acute Problems: Comment Review of Relevant I have reviewed the following items rodolfo (where applicable) has been applied. Labs Laboratory Tests Test 12/06/16 11:54 12/06/16 17:59 12/06/16 20:41 12/07/16 01:59 Glucose (Fingerstick) 217mg/dL (70-99) 239mg/dL (70-99) 179mg/dL (70-99) 184mg/dL (70-99) Test 12/07/16 05:19 12/07/16 05:30 12/07/16 12:50 12/07/16 17:32 Glucose (Fingerstick) 180mg/dL (70-99) 216mg/dL (70-99) 212mg/dL (70-99) White Blood Count 15.7x10^3/uL (4.0-11.0) Red Blood Count 2.58x10^6/uL (4.30-5.70) Hemoglobin 7.6g/dL (13.0-17.5) Hematocrit 23.7% (39.0-53.0) Mean Corpuscular Volume 92fL (79-100) Mean Corpuscular Hemoglobin 30pg (25-35) Mean Corpuscular Hemoglobin Concent 32g/dL (31-37) Red Cell Distribution Width 17.0% (11.5-14.5) Platelet Count 393x10^3/uL (140-400) Neutrophils (%) (Auto) 76% (31-73) Lymphocytes (%) (Auto) 8% (24-48) Monocytes (%) (Auto) 10% (0-9) Eosinophils (%) (Auto) 5% (0-3) Basophils (%) (Auto) 1% (0-3) Neutrophils # (Auto) 11.9x10^3uL (1.8-7.7) Lymphocytes # (Auto) 1.3x10^3/uL (1.0-4.8) Monocytes # (Auto) 1.6x10^3/uL (0.0-1.1) Eosinophils # (Auto) 0.7x10^3/uL (0.0-0.7) Basophils # (Auto) 0.2x10^3/uL (0.0-0.2) Sodium Level 147mmol/L (136-145) Potassium Level 4.6mmol/L (3.5-5.1) Chloride Level 111mmol/L (98-107) Carbon Dioxide Level 27mmol/L (21-32) Anion Gap 9 (6-14) Blood Urea Nitrogen 48mg/dL (8-26) Creatinine 1.9mg/dL (0.7-1.3) Estimated GFR (Cockcroft-Gault) 35.1 BUN/Creatinine Ratio 25 (6-20) Glucose Level 187mg/dL (70-99) Calcium Level 9.3mg/dL (8.5-10.1) Phosphorus Level 3.7mg/dL (2.6-4.7) Magnesium Level 2.0mg/dL (1.8-2.4) Total Bilirubin 2.1mg/dL (0.2-1.0) Aspartate Amino Transf (AST/SGOT) 40U/L (15-37) Alanine Aminotransferase (ALT/SGPT) 81U/L (16-63) Alkaline Phosphatase 194U/L (46-116) Total Protein 6.5g/dL (6.4-8.2) Albumin 2.9g/dL (3.4-5.0) Albumin/Globulin Ratio 0.8 (1.0-1.7) Test 12/07/16 20:20 12/07/16 23:05 12/08/16 04:15 12/08/16 06:04 Glucose (Fingerstick) 189mg/dL (70-99) 190mg/dL (70-99) 177mg/dL (70-99) White Blood Count 13.0x10^3/uL (4.0-11.0) Red Blood Count 2.68x10^6/uL (4.30-5.70) Hemoglobin 8.1g/dL (13.0-17.5) Hematocrit 25.1% (39.0-53.0) Mean Corpuscular Volume 94fL (79-100) Mean Corpuscular Hemoglobin 30pg (25-35) Mean Corpuscular Hemoglobin Concent 32g/dL (31-37) Red Cell Distribution Width 17.1% (11.5-14.5) Platelet Count 408x10^3/uL (140-400) Neutrophils (%) (Auto) 70% (31-73) Lymphocytes (%) (Auto) 12% (24-48) Monocytes (%) (Auto) 12% (0-9) Eosinophils (%) (Auto) 5% (0-3) Basophils (%) (Auto) 1% (0-3) Neutrophils # (Auto) 9.1x10^3uL (1.8-7.7) Lymphocytes # (Auto) 1.6x10^3/uL (1.0-4.8) Monocytes # (Auto) 1.6x10^3/uL (0.0-1.1) Eosinophils # (Auto) 0.6x10^3/uL (0.0-0.7) Basophils # (Auto) 0.1x10^3/uL (0.0-0.2) Sodium Level 147mmol/L (136-145) Potassium Level 4.5mmol/L (3.5-5.1) Chloride Level 111mmol/L (98-107) Carbon Dioxide Level 26mmol/L (21-32) Anion Gap 10 (6-14) Blood Urea Nitrogen 48mg/dL (8-26) Creatinine 1.7mg/dL (0.7-1.3) Estimated GFR (Cockcroft-Gault) 39.9 Glucose Level 174mg/dL (70-99) Calcium Level 9.4mg/dL (8.5-10.1) Laboratory Tests Test 12/07/16 12:50 12/07/16 17:32 12/07/16 20:20 12/07/16 23:05 Glucose (Fingerstick) 216mg/dL (70-99) 212mg/dL (70-99) 189mg/dL (70-99) 190mg/dL (70-99) Test 12/08/16 04:15 12/08/16 06:04 White Blood Count 13.0x10^3/uL (4.0-11.0) Red Blood Count 2.68x10^6/uL (4.30-5.70) Hemoglobin 8.1g/dL (13.0-17.5) Hematocrit 25.1% (39.0-53.0) Mean Corpuscular Volume 94fL (79-100) Mean Corpuscular Hemoglobin 30pg (25-35) Mean Corpuscular Hemoglobin Concent 32g/dL (31-37) Red Cell Distribution Width 17.1% (11.5-14.5) Platelet Count 408x10^3/uL (140-400) Neutrophils (%) (Auto) 70% (31-73) Lymphocytes (%) (Auto) 12% (24-48) Monocytes (%) (Auto) 12% (0-9) Eosinophils (%) (Auto) 5% (0-3) Basophils (%) (Auto) 1% (0-3) Neutrophils # (Auto) 9.1x10^3uL (1.8-7.7) Lymphocytes # (Auto) 1.6x10^3/uL (1.0-4.8) Monocytes # (Auto) 1.6x10^3/uL (0.0-1.1) Eosinophils # (Auto) 0.6x10^3/uL (0.0-0.7) Basophils # (Auto) 0.1x10^3/uL (0.0-0.2) Sodium Level 147mmol/L (136-145) Potassium Level 4.5mmol/L (3.5-5.1) Chloride Level 111mmol/L (98-107) Carbon Dioxide Level 26mmol/L (21-32) Anion Gap 10 (6-14) Blood Urea Nitrogen 48mg/dL (8-26) Creatinine 1.7mg/dL (0.7-1.3) Estimated GFR (Cockcroft-Gault) 39.9 Glucose Level 174mg/dL (70-99) Calcium Level 9.4mg/dL (8.5-10.1) Glucose (Fingerstick) 177mg/dL (70-99) Microbiology 11/28/16 Blood Culture - Final, Complete NO GROWTH AFTER 5 DAYS 11/24/16 Stool Culture - Final, Complete 11/24/16 Stool Culture Result 1 (ROSIE) - Final, Complete 11/24/16 Campylobacter Antigen Assay - Final, Complete 11/24/16 Campylobactor Result 1 - Final, Complete 11/24/16 Shiga Toxin Test - Final, Complete 11/25/16 Urine Culture - Final, Complete 11/25/16 Urine Culture Result 1 (ROSIE) - Final, Complete Medications Current Medications Sodium Chloride 1,000 ml @ 1,000 mls/hr Q1H IV Last administered on 11/24/16 06:50; Start 11/24/16 at 06:50; Stop 11/24/16 at 07:49; Status DC Epinephrine HCl/ Sodium Chloride (Adrenalin/Iv Sodium Chloride 0.9% 250ml) 254 ml @ 0 mls/hr CONT PRN IV SEE I/O RECORD Last administered on 11/26/16 03:05; Start 11/24/16 at 07:30; Stop 11/27/16 at 08:25; Status DC Insulin Aspart (Novolog) 0-7 UNITS TIDWMEALS SQ ; Start 11/24/16 at 08:00; Stop 11/24/16 at 15:36; Status DC Dextrose 12.5 gm 12.5 gm PRN Q15MIN PRN IV SEE COMMENTS; Start 11/24/16 at 07: 45; Stop 11/25/16 at 23:34; Status DC Sodium Chloride (Iv Sodium Chloride 0.9% 1000ml Bag) 1,000 ml @ 125 mls/hr 1X ONCE IV Last administered on 11/24/16 07:52; Start 11/24/16 at 08:00; Stop at 08:20; Status DC Vancomycin HCl (Vanco Per Pharmacy) 1 each PRN DAILY PRN MC SEE COMMENTS Last administered on 11/24/16 11:26; Start 11/24/16 at 08:15; Stop 11/24/16 at 13:06 ; Status DC Piperacillin Sod/ Tazobactam Sod 1 each 1 each PRN DAILY PRN MC SEE COMMENTS; Start 11/24/16 at 08:15; Stop 11/24/16 at 13:06; Status DC Sodium Bicarbonate 50 meq/Sodium Chloride 1,050 ml @ 125 mls/hr Q8H24M IV Last administered on 11/26/16 11:24; Start 11/24/16 at 08:30; Stop 11/26/16 at 12:41; Status DC Vancomycin HCl 2 gm/Sodium Chloride 500 ml @ 250 mls/hr ONCE ONCE IV Last administered on 11/24/16 10:15; Start 11/24/16 at 08:30; Stop 11/24/16 at 10:29 ; Status DC Piperacillin Sod/ Tazobactam Sod 4.5 gm/Sodium Chloride 100 ml @ 200 mls/hr Q6HRS IV Last administered on 11/24/16 10:10; Start 11/24/16 at 08:30; Stop at 11:15; Status DC Sodium Chloride (Iv Sodium Chloride 0.9% 1000ml Bag) 1,000 ml @ 1,000 mls/hr Q1H IV Last administered on 11/24/16 10:09; Start 11/24/16 at 08:39; Stop at 11:47; Status DC Fentanyl Citrate (Fentanyl 2ml Vial) 25 mcg PRN Q30MIN PRN IV SED Last administered on 11/30/16 17:24; Start 11/24/16 at 08:45; Stop 12/04/16 at 06:29 ; Status DC Lorazepam 1 mg 1 mg PRN Q30MIN PRN IV SEDATION Last administered on 11/25/16 12:26; Start 11/24/16 at 08:45; Stop 11/28/16 at 19:45; Status DC Fentanyl Citrate 30 ml @ 2.5 mls/hr CONT PRN PRN IV IVF Last administered on 07:40; Start 11/24/16 at 08:45; Stop 11/26/16 at 17:49; Status DC Propofol (Diprivan) 100 ml @ 0 mls/hr CONT PRN IV SEE I/O RECORD Last administered on 11/26/16 07:38; Start 11/24/16 at 08:45; Stop 11/26/16 at 17:49 ; Status DC Vecuronium [place] (Norcuron Bolus) 9 mg PRN Q30MIN PRN IV SHIVERING Last administered on 11/24/16 17:38; Start 11/24/16 at 08:45; Stop 11/26/16 at 17:49 ; Status DC Meperidine HCl (Demerol) 12.5 mg PRN Q30MIN PRN IV SHIVERING Last administered on 11/24/16 22:21; Start 11/24/16 at 08:45; Stop 11/24/16 at 22:21; Status DC Multi-Ingred Cream/Lotion/Oil/ Oint (Artificial Tears Eye Oint) 1 radha PRN Q6HRS PRN OU 0.5 INCH FOR DRY EYE; Start 11/24/16 at 08:45 Famotidine (Pepcid) 20 mg QHS IVP Last administered on 11/27/16 21:12; Start 11/24/16 at 21:00; Stop 11/28/16 at 09:46; Status DC Aspirin (Aspirin) 300 mg DAILY LA Last administered on 12/08/16 09:59; Start at 09:00 Sodium Chloride (Normal Saline Flush) 3 ml QSHIFT PRN IV AFTER MEDS AND BLOOD DRAWS; Start 11/24/16 at 08:45 Acetaminophen (Tylenol) 650 mg Q6HRS NG ; Start 11/24/16 at 12:00; Stop at 11:59; Status DC Acetaminophen (Tylenol) 650 mg PRN Q6HRS PRN LA MILD PAIN / TEMP; Start at 08:45; Stop 11/25/16 at 23:35; Status DC Acetaminophen (Tylenol) 650 mg PRN Q6HRS PRN NG MILD PAIN / TEMP; Start at 08:45 Info 1 ea 1 ea DAILY PRN MC PER PROTOCOL; Start 11/26/16 at 08:45; Stop at 09:17; Status DC Insulin Human Regular 150 unit/ Sodium Chloride 151.5 ml @ 9.16 mls/hr CONT PRN IV SEE I/O RECORD Last administered on 11/24/16 10:13; Start 11/24/16 at 09 :30; Stop 11/27/16 at 08:25; Status DC Piperacillin Sod/ Tazobactam Sod 3.375 gm/Sodium Chloride 50 ml @ 100 mls/hr Q6HRS IV ; Start 11/24/16 at 18:00; Stop 11/24/16 at 18:00; Status DC Vancomycin HCl/ Sodium Chloride (Iv Sodium Chloride 0.9% 500ml Bag) 500 ml @ 250 mls/hr Q24H IV ; Start 11/25/16 at 10:00; Stop 11/25/16 at 10:00; Status DC Vancomycin HCl 1 each 1 each 1X ONCE MC ; Start 11/26/16 at 09:30; Stop at 09:30; Status DC Sodium Chloride (Iv Sodium Chloride 0.9% 1000ml Bag) 1,000 ml @ 1,000 mls/hr 1X ONCE IV Last administered on 11/24/16 11:00; Start 11/24/16 at 11:00; Stop 11/24/16 at 11:59; Status DC Insulin Detemir (Levemir) 12 units QHS SQ ; Start 11/24/16 at 21:00; Stop at 21:00; Status DC Insulin Aspart (Novolog) 10 units 1X ONCE SQ ; Start 11/24/16 at 15:30; Stop at 20:10; Status DC Insulin Aspart (Novolog) 0-7 UNITS Q4HRS SQ ; Start 11/24/16 at 16:00; Stop at 20:10; Status DC Heparin Sodium (Porcine) 8100 unit 8,100 unit 1X ONCE IV Last administered on 11/24/16 17:24; Start 11/24/16 at 17:00; Stop 11/24/16 at 17:01; Status DC Heparin Sodium/ Dextrose 500 ml @ 0 mls/hr CONT PRN IV SEE I/O RECORD Last administered on 11/28/16 02:06; Start 11/24/16 at 16:45; Stop 11/28/16 at 17:12 ; Status DC Heparin Sodium (Porcine) 3,000 unit PRN Q6HRS PRN IV FOR UFH LEVEL LESS THAN 0.2; Start 11/24/16 at 16:45; Stop 11/28/16 at 17:12; Status DC Heparin Sodium (Porcine) 1,500 unit PRN Q6HRS PRN IV FOR UFH LEVEL 0.2 - 0.29 Last administered on 11/26/16 12:08; Start 11/24/16 at 16:45; Stop 11/28/16 at 17:12; Status DC Info 1 each 1 each PRN DAILY PRN MC SEE COMMENTS Last administered on 10:03; Start 11/24/16 at 17:00; Stop 11/28/16 at 17:13; Status DC Piperacillin Sod/ Tazobactam Sod 3.375 gm/Sodium Chloride 50 ml @ 100 mls/hr Q6HRS IV Last administered on 12/07/16 05:21; Start 11/25/16 at 00:00; Stop 12/07/16 at 12:10; Status DC Vancomycin HCl/ Sodium Chloride (Iv Sodium Chloride 0.9% 250ml) 250 ml @ 250 mls/hr 1X ONCE IV ; Start 11/24/16 at 21:30; Stop 11/24/16 at 22:29; Status UNV Vancomycin HCl 1 each 1 each PRN DAILY PRN MC SEE COMMENTS Last administered on 11/25/16 03:30; Start 11/25/16 at 01:00; Stop 11/25/16 at 08:57; Status DC Vancomycin HCl/ Sodium Chloride (Iv Sodium Chloride 0.9% 500ml Bag) 500 ml @ 250 mls/hr Q24H IV ; Start 11/25/16 at 10:00; Stop 11/25/16 at 10:00; Status DC Vancomycin HCl 1 each 1X ONCE MC ; Start 11/26/16 at 09:30; Stop 11/26/16 at 09 :30; Status DC Enoxaparin Sodium (Lovenox Per Pharmacy Prophylaxis Dosing) 1 each PRN DAILY PRN MC SEE COMMENTS; Start 11/25/16 at 08:45; Status UNV Chlorhexidine Gluconate 15 ml 15 ml BID MM Last administered on 11/26/16 08:37 ; Start 11/25/16 at 21:00; Stop 11/26/16 at 17:49; Status DC Magnesium Sulfate/ Dextrose 50 ml @ 25 mls/hr PRN DAILY PRN IV for Mag < 1.7 on am labs Last administered on 11/26/16 05:29; Start 11/25/16 at 09:45; Stop 11/27/16 at 08:47; Status DC Magnesium Sulfate/ Dextrose 50 ml @ 25 mls/hr PRN DAILY PRN IV for Mag < 1.7 on am labs; Start 11/25/16 at 09:45; Status UNV Sodium Chloride 500 ml @ 0 mls/hr QID PRN IV UO< 30cc/hr over previous 6hrs Last administered on 11/25/16 10:54; Start 11/25/16 at 09:45; Stop 11/27/16 at 11:25; Status DC Magnesium Sulfate/ Dextrose (Magnesium Sulfate PREMIX 2GM) 50 ml @ 25 mls/hr 1X ONCE IV Last administered on 11/25/16t 13:28; Start 11/25/16 at 12:30; Stop 11/25/16 at 14:29; Status DC Lidocaine/Sodium Bicarbonate 20 ml 20 ml STK-MED ONCE IJ ; Start 11/25/16 at 12: 35; Stop 11/25/16 at 12:36; Status DC Heparin Sodium/ Sodium Chloride 500 ml @ As Directed STK-MED ONCE .ROUTE ; Start 11/25/16 at 12:35; Stop 11/25/16 at 12:36; Status DC Lidocaine/Sodium Bicarbonate (Buffered Lidocaine 1%) 3 ml 1X ONCE IJ Last administered on 11/25/16 13:15; Start 11/25/16 at 13:15; Stop 11/25/16 at 13:16 ; Status DC Heparin Sodium/ Sodium Chloride 60 unit 1X ONCE IV Last administered on 13:16; Start 11/25/16 at 13:15; Stop 11/25/16 at 13:16; Status DC Amiodarone HCl (Cordarone) 450 mg STK-MED ONCE .ROUTE ; Start 11/25/16 at 12:00 ; Stop 11/25/16 at 14:56; Status DC Epinephrine HCl (Adrenalin) 30 mg STK-MED ONCE .ROUTE ; Start 11/25/16 at 12:00 ; Stop 11/25/16 at 14:56; Status DC Atropine Sulfate 1.5 mg STK-MED ONCE .ROUTE ; Start 11/25/16 at 12:00; Stop at 14:56; Status DC Epinephrine HCl 4 mg STK-MED ONCE .ROUTE ; Start 11/25/16 at 12:00; Stop at 14:56; Status DC Sodium Bicarbonate 150 meq 150 meq STK-MED ONCE .ROUTE ; Start 11/25/16 at 12:00 ; Stop 11/25/16 at 14:56; Status DC Midazolam HCl (Versed 100mg/ 100ml Premix) 100 ml @ 0 mls/hr CONT PRN IV SEE I/ O RECORD; Start 11/25/16 at 23:30; Stop 11/26/16 at 17:49; Status DC Insulin Aspart (Novolog) 0-7 UNITS TIDWMEALS SQ Last administered on 11/27/16 19:43; Start 11/26/16 at 08:00; Stop 11/28/16 at 01:01; Status DC Dextrose 12.5 gm PRN Q15MIN PRN IV SEE COMMENTS; Start 11/25/16 at 23:30; Stop 12/05/16 at 14:19; Status DC Acetaminophen 650 mg 650 mg PRN Q6HRS PRN LA MILD PAIN / TEMP Last administered on 11/28/16 04:19; Start 11/25/16 at 23:30; Stop 12/02/16 at 13:29 ; Status DC Potassium Chloride 50 ml @ 50 mls/hr Q1H IV Last administered on 11/26/16 11: 23; Start 11/26/16 at 10:30; Stop 11/26/16 at 12:29; Status DC Sodium Bicarbonate/ Sterile Water 1,100 ml @ 100 mls/hr Q11H IV Last administered on 11/27/16 00:56; Start 11/26/16 at 13:00; Stop 11/27/16 at 11:25 ; Status DC Info 1 each 1 each PRN DAILY PRN MC SEE COMMENTS Last administered on 12/07/16 12:20; Start 11/26/16 at 12:45 Calcium Chloride/ Sodium Chloride (Iv Sodium Chloride 0.9% 100ml) 120 ml @ 240 mls/hr 1X ONCE IV Last administered on 11/26/16 13:22; Start 11/26/16 at 13: 15; Stop 11/26/16 at 13:44; Status DC Ondansetron HCl 4 mg 4 mg PRN Q6HRS PRN IV NAUSEA/VOMITING Last administered on 12/03/16 21:17; Start 11/26/16 at 13:45; Stop 12/04/16 at 06:30; Status DC Sodium Chloride/ Potassium Chloride/ Magnesium Sulfate/ Calcium Gluconate/ Multivitamins/ Chromium/Copper/ Manganese/Seleni/ Zn/Total Parenteral Nutrition/ Amino Acids/Dextrose/ Fat Emulsion Intravenous (Sodium Chloride/ Infuvite Adult / Multitrace-5 Conc/ Tpn - Tpn Fluid/ Trophami... 1,594.468 ml @ 66.436 m... TPN CONT IV Last administered on 11/26/16 21:27; Start 11/26/16 at 22:00; Stop 11/27/16 at 21:59; Status DC Albuterol Sulfate 2.5 mg 2.5 mg 1X ONCE NEB Last administered on 11/27/16 07: 21; Start 11/27/16 at 06:45; Stop 11/27/16 at 06:46; Status DC Magnesium Sulfate/ Dextrose 50 ml @ 25 mls/hr PRN DAILY PRN IV for Mag < 1.7 on am labs; Start 11/27/16 at 08:45 Sodium Chloride 90 meq/Potassium Chloride 50 meq/ Magnesium Sulfate 10 meq/ Calcium Gluconate 10 meq/ Multivitamins 10 ml/Chromium/ Copper/Manganese/ Seleni /Zn 1 ml/ Total Parenteral Nutrition/Amino Acids/Dextrose/ Fat Emulsion Intravenous 1,594.468 ml @ 66.436 m... TPN CONT IV ; Start 11/27/16 at 22:00; Stop 11/28/16 at 21:59; Status Cancel Potassium Chloride/ Magnesium Sulfate/ Calcium Gluconate/ Multivitamins/ Chromium/Copper/ Manganese/Seleni/ Zn/Total Parenteral Nutrition/Amino Acids/ Dextrose/ Fat Emulsion Intravenous (Infuvite Adult/ Multitrace-5 Conc/ Tpn - Tpn Fluid/ Trophamine/ Dextrose 70%-Water Iv So... 1,512 ml @ 63 mls/hr TPN CONT IV Last administered on 11/27/16 21:22; Start 11/27/16 at 22:00; Stop at 21:59; Status DC Nitroglycerin 0.4 mg 0.4 mg STK-MED ONCE SL Last administered on 11/27/16 11: 26; Start 11/27/16 at 11:16; Stop 11/27/16 at 11:17; Status DC Albumin Human (Albuminar) 100 ml @ 100 mls/hr TID IV Last administered on 11/29 08:56; Start 11/27/16 at 12:00; Stop 11/29/16 at 09:59; Status DC Sodium Bicarbonate 50 meq 1X ONCE IV Last administered on 11/27/16 13:24; Start 11/27/16 at 12:45; Stop 11/27/16 at 12:46; Status DC Hydralazine HCl (Apresoline) 10 mg PRN Q4HRS PRN IVP ELEVATED BP, SEE COMMENTS Last administered on 12/03/16 20:18; Start 11/27/16 at 12:45 Metoprolol Tartrate (Lopressor) 5 mg Q6HRS IVP Last administered on 11/27/16 15:40; Start 11/27/16 at 15:30; Stop 11/27/16 at 19:11; Status DC Metoprolol Tartrate 5 mg 5 mg Q6HRS@04,10,16,22 IVP Last administered on 03:50; Start 11/27/16 at 22:00 Nicardipine HCl/ Sodium Chloride (Cardene/Iv Sodium Chloride 0.9% 250ml) 270 ml @ 0 mls/hr CONT PRN IV SEE I/O RECORD Last administered on 11/28/16 01:13; Start 11/27/16 at 20:45; Stop 12/05/16 at 09:17; Status DC Vancomycin HCl 1 each 1 each PRN DAILY PRN MC SEE COMMENTS Last administered on 11/27/16 21:38; Start 11/27/16 at 22:00; Stop 11/28/16 at 08:30; Status DC Vancomycin HCl 2 gm/Sodium Chloride 500 ml @ 250 mls/hr 1X ONCE IV Last administered on 11/27/16 22:57; Start 11/27/16 at 22:00; Stop 11/27/16 at 23:59 ; Status DC Vancomycin HCl/ Sodium Chloride (Iv Sodium Chloride 0.9% 500ml Bag) 500 ml @ 250 mls/hr Q24H IV ; Start 11/28/16 at 22:00; Stop 11/28/16 at 22:00; Status DC Vancomycin HCl 1 each 1X ONCE MC ; Start 11/29/16 at 21:30; Stop 11/29/16 at 21 :30; Status DC Insulin Aspart (Novolog) 0-7 UNITS Q6HRS SQ Last administered on 12/07/16 17:38 ; Start 11/28/16 at 01:00 Linezolid 600 mg 600 mg BID PO ; Start 11/28/16 at 09:00; Stop 11/28/16 at 19:45 ; Status DC Pantoprazole Sodium/Sodium Chloride (Protonix Iv/Iv Sodium Chloride 0.9% 100ml) 100 ml @ 10 mls/hr Q10H PRN IV . Last administered on 12/01/16 13:01; Start 11/28/16 at 10:00; Stop 12/01/16 at 15:59; Status DC Ipratropium [place] (Atrovent) 0.5 mg RTQID NEB Last administered on 12/08/16 08:00; Start 11/28/16 at 12:00 Budesonide (Pulmicort) 0.5 mg RTBID NEB Last administered on 12/06/16 07:36; Start 11/28/16 at 20:00; Stop 12/06/16 at 18:19; Status DC Furosemide 40 mg 40 mg 1X ONCE IVP Last administered on 11/28/16 12:15; Start 11/28/16 at 12:15; Stop 11/28/16 at 12:16; Status DC Potassium Chloride/ Magnesium Sulfate/ Calcium Gluconate/ Multivitamins/ Chromium/Copper/ Manganese/Seleni/ Zn/Total Parenteral Nutrition/Amino Acids/ Dextrose/ Fat Emulsion Intravenous (Calcium Gluconate/ Infuvite Adult/ Multitrace-5 Conc/ Tpn - Tpn Fluid/ Trophami... 1,512 ml @ 63 mls/hr TPN CONT IV Last administered on 11/28/16 21:18; Start 11/28/16 at 22:00; Stop at 21:59; Status DC Lidocaine/Sodium Bicarbonate (Buffered Lidocaine 1%) 3 ml 1X ONCE IJ Last administered on 11/28/16 15:45; Start 11/28/16 at 14:45; Stop 11/28/16 at 14:46 ; Status DC Heparin Sodium/ Sodium Chloride 60 unit 1X ONCE IV Last administered on 15:45; Start 11/28/16 at 14:45; Stop 11/28/16 at 14:46; Status DC Heparin Sodium (Porcine) 2500 unit 2,500 unit 1X ONCE INT CAT Last administered on 11/28/16 15:45; Start 11/28/16 at 14:45; Stop 11/28/16 at 14:46 ; Status DC Linezolid 300 ml @ 300 mls/hr Q12HR IV Last administered on 12/01/16 21:13; Start 11/28/16 at 21:00; Stop 12/02/16 at 08:23; Status DC Potassium Chloride/ Potassium Acetate/ Magnesium Sulfate/ Calcium Gluconate/ Multivitamins/ Chromium/Copper/ Manganese/Seleni/ Zn/Total Parenteral Nutrition/ Amino Acids/Dextrose/ Fat Emulsion Intravenous (Calcium Gluconate/ Infuvite Adult/ Multitrace-5 Conc/ Tpn - Tpn Flu... 1,512 ml @ 63 mls/hr TPN CONT IV Last administered on 11/29/16 21:54; Start 11/29/16 at 22:00; Stop 11/30/16 at 21:59; Status DC Iohexol (Omnipaque 300 Mg/ml) 100 ml STK-MED ONCE .ROUTE ; Start 11/29/16 at 09: 12; Stop 11/29/16 at 09:13; Status DC Lidocaine/Sodium Bicarbonate 20 ml 20 ml STK-MED ONCE IJ ; Start 11/29/16 at 09: 12; Stop 11/29/16 at 09:13; Status DC Heparin Sodium/ Sodium Chloride 500 ml @ As Directed STK-MED ONCE .ROUTE ; Start 11/29/16 at 09:12; Stop 11/29/16 at 09:13; Status DC Lidocaine/Sodium Bicarbonate (Buffered Lidocaine 1%) 2 ml 1X ONCE IJ Last administered on 11/29/16 10:22; Start 11/29/16 at 10:00; Stop 11/29/16 at 10:15 ; Status DC Iohexol (Omnipaque 300 Mg/ml) 30 ml 1X ONCE IART Last administered on 10:22; Start 11/29/16 at 10:00; Stop 11/29/16 at 10:15; Status DC Heparin Sodium/ Sodium Chloride 1,000 unit 1X ONCE IV Last administered on 10:21; Start 11/29/16 at 10:00; Stop 11/29/16 at 10:15; Status DC Info 1 each 1 each PRN DAILY PRN MC SEE COMMENTS; Start 11/29/16 at 10:30; Stop 12/01/16 at 10:29; Status DC Heparin Sodium/ Dextrose 500 ml @ 0 mls/hr CONT PRN IV SEE I/O RECORD; Start at 15:15; Status UNV Heparin Sodium/ Dextrose 500 ml @ 0 mls/hr CONT PRN IV SEE I/O RECORD Last administered on 12/04/16 19:23; Start 11/29/16 at 15:15; Stop 12/05/16 at 08:51 ; Status DC Nitroglycerin/ Dextrose 250 ml @ 0 mls/hr CONT PRN IV SEE I/O RECORD Last administered on 11/30/16 10:53; Start 11/30/16 at 10:45; Stop 12/05/16 at 09:17 ; Status DC Potassium Acetate/ Potassium Phosphate/ Magnesium Sulfate/ Calcium Gluconate/ Multivitamins/ Chromium/Copper/ Manganese/Seleni/ Zn/Insulin Human Regular/ Total Parenteral Nutrition/Amino Acids/Dextrose/ Fat Emulsion Intravenous ( Potassium Phosphate/Calcium Gluconate/ Infuvite Asim... 1,472.1 ml @ 63 mls/hr TPN CONT IV Last administered on 11/30/16 21:31; Start 11/30/16 at 22:00; Stop 12/01/16 at 21:21; Status DC Furosemide 40 mg 40 mg 1X ONCE IVP Last administered on 11/30/16 15:02; Start 11/30/16 at 15:00; Stop 11/30/16 at 15:01; Status DC Iron Sucrose/ Sodium Chloride (Venofer/Iv Sodium Chloride 0.9% 250ml) 275 ml @ 78.571 mls/ hr 1X ONCE IV Last administered on 12/01/16 09:58; Start at 09:00; Stop 12/01/16 at 12:29; Status DC Insulin Detemir (Levemir) 12 units QHS SQ Last administered on 12/03/16 21:28 ; Start 12/01/16 at 21:00; Stop 12/04/16 at 16:49; Status DC Info 1 each 1 each PRN DAILY PRN MC SEE COMMENTS Last administered on 12:18; Start 12/01/16 at 10:45; Stop 12/05/16 at 09:17; Status DC Potassium Acetate/ Potassium Phosphate/ Magnesium Sulfate/ Calcium Gluconate/ Multivitamins/ Chromium/Copper/ Manganese/Seleni/ Zn/Insulin Human Regular/ Total Parenteral Nutrition/Amino Acids/Dextrose/ Fat Emulsion Intravenous ( Potassium Phosphate/Calcium Gluconate/ Infuvite Asim... 1,512 ml @ 64.708 mls/ hr TPN CONT IV Last administered on 12/01/16 22:20; Start 12/01/16 at 22:00; Stop 12/02/16 at 21:21; Status DC Pantoprazole Sodium (Protonix Vial) 40 mg DAILYAC IVP Last administered on 12/04 10:37; Start 12/02/16 at 07:30; Stop 12/05/16 at 06:27; Status DC Acetaminophen 650 mg 650 mg 1X PRN PRN PO PRN prior to blood transfusion; Start 12/02/16 at 06:30; Stop 12/03/16 at 06:29; Status DC Potassium Acetate/ Potassium Phosphate/ Magnesium Sulfate/ Calcium Gluconate/ Multivitamins/ Chromium/Copper/ Manganese/Seleni/ Zn/Insulin Human Regular/ Total Parenteral Nutrition/Amino Acids/Dextrose/ Fat Emulsion Intravenous ( Potassium Phosphate/Calcium Gluconate/ Infuvite Asim... 1,512 ml @ 64.708 mls/ hr TPN CONT IV Last administered on 12/02/16 21:46; Start 12/02/16 at 22:00; Stop 12/03/16 at 21:21; Status DC Furosemide (Lasix) 40 mg DAILY IVP Last administered on 12/03/16 08:47; Start 12/02/16 at 12:30; Stop 12/04/16 at 06:30; Status DC Acetaminophen (Acetaminophen Supp) 650 mg PRN Q6HRS PRN LA MILD PAIN / TEMP; Start 12/02/16 at 13:30; Stop 12/02/16 at 13:36; Status DC Acetaminophen 650 mg 650 mg PRN Q6HRS PRN LA MILD PAIN / TEMP; Start 12/02/16 at 13:45 Potassium Acetate/ Potassium Phosphate/ Magnesium Sulfate/ Calcium Gluconate/ Multivitamins/ Chromium/Copper/ Manganese/Seleni/ Zn/Insulin Human Regular/ Total Parenteral Nutrition/Amino Acids/Dextrose/ Fat Emulsion Intravenous ( Potassium Phosphate/Calcium Gluconate/ Infuvite Asim... 1,512 ml @ 63 mls/hr TPN CONT IV Last administered on 12/03/16 21:05; Start 12/03/16 at 22:00; Stop 12/04/16 at 21:59; Status DC Fentanyl Citrate (Fentanyl 2ml Vial) 25 mcg PRN Q30MIN PRN IV SED; Start at 06:29; Stop 12/05/16 at 09:17; Status DC Ondansetron HCl (Zofran) 4 mg PRN Q6HRS PRN IV NAUSEA/VOMITING; Start 12/04/16 at 06:30 Furosemide (Lasix) 40 mg DAILY IVP Last administered on 12/06/16 10:20; Start 12/04/16 at 06:30; Stop 12/06/16 at 15:12; Status DC Lidocaine HCl 20 ml 20 ml STK-MED ONCE .ROUTE ; Start 12/04/16 at 07:02; Stop at 07:03; Status DC Heparin Sodium/ Sodium Chloride 1,500 ml @ As Directed STK-MED ONCE .ROUTE ; Start 12/04/16 at 07:02; Stop 12/04/16 at 07:03; Status DC Iodixanol (Visipaque 320) 100 ml STK-MED ONCE .ROUTE ; Start 12/04/16 at 07:02; Stop 12/04/16 at 07:03; Status DC Nitroglycerin (Nitroglycerin) 200 mcg STK-MED ONCE .ROUTE ; Start 12/04/16 at 07 :05; Stop 12/04/16 at 07:06; Status DC Verapamil HCl (Verapamil) 5 mg STK-MED ONCE .ROUTE ; Start 12/04/16 at 07:05; Stop 12/04/16 at 07:06; Status DC Midazolam HCl (Versed) 2 mg STK-MED ONCE .ROUTE ; Start 12/04/16 at 07:05; Stop 12/04/16 at 07:06; Status DC Fentanyl Citrate (Fentanyl 2ml Vial) 100 mcg STK-MED ONCE .ROUTE ; Start at 07:05; Stop 12/04/16 at 07:06; Status DC Heparin Sodium (Porcine) 10,000 unit STK-MED ONCE .ROUTE ; Start 12/04/16 at 07: 05; Stop 12/04/16 at 07:06; Status DC Nitroglycerin (Nitroglycerin) 200 mcg STK-MED ONCE .ROUTE ; Start 12/04/16 at 07 :17; Stop 12/04/16 at 07:18; Status DC Verapamil HCl (Verapamil) 5 mg STK-MED ONCE .ROUTE ; Start 12/04/16 at 07:18; Stop 12/04/16 at 07:19; Status DC Nitroglycerin (Nitroglycerin) 200 mcg 1X ONCE IART Last administered on 07:42; Start 12/04/16 at 07:45; Stop 12/04/16 at 07:46; Status DC Verapamil HCl (Verapamil) 2.5 mg 1X ONCE IART Last administered on 12/04/16 07:43; Start 12/04/16 at 07:45; Stop 12/04/16 at 07:46; Status DC Heparin Sodium/ Sodium Chloride 1,000 unit 1X ONCE IART Last administered on 07:43; Start 12/04/16 at 07:45; Stop 12/04/16 at 07:46; Status DC Midazolam HCl (Versed) 0.5 mg 1X ONCE IV Last administered on 12/04/16 07:44 ; Start 12/04/16 at 07:45; Stop 12/04/16 at 07:46; Status DC Fentanyl Citrate (Fentanyl 2ml Vial) 25 mcg 1X ONCE IV Last administered on 07:44; Start 12/04/16 at 07:45; Stop 12/04/16 at 07:46; Status DC Iodixanol (Visipaque 320) 100 ml 1X ONCE IART Last administered on 12/04/16 07:42; Start 12/04/16 at 07:45; Stop 12/04/16 at 07:46; Status DC Lidocaine HCl 20 ml 1X ONCE IJ Last administered on 12/04/16 07:43; Start at 07:45; Stop 12/04/16 at 07:46; Status DC Info 1 each 1 each PRN DAILY PRN MC SEE COMMENTS; Start 12/04/16 at 07:45; Stop 12/06/16 at 07:44; Status DC Potassium Acetate/ Potassium Phosphate/ Magnesium Sulfate/ Calcium Gluconate/ Multivitamins/ Chromium/Copper/ Manganese/Seleni/ Zn/Insulin Human Regular/ Total Parenteral Nutrition/Amino Acids/Dextrose/ Fat Emulsion Intravenous ( Potassium Phosphate/Calcium Gluconate/ Infuvite Asim... 1,512 ml @ 63 mls/hr TPN CONT IV Last administered on 12/04/16 22:47; Start 12/04/16 at 22:00; Stop 12/05/16 at 21:59; Status DC Lidocaine HCl 20 ml 20 ml STK-MED ONCE .ROUTE ; Start 12/04/16 at 12:59; Stop at 13:00; Status DC Heparin Sodium/ Sodium Chloride 1,000 ml @ As Directed STK-MED ONCE .ROUTE ; Start 12/04/16 at 12:59; Stop 12/05/16 at 08:51; Status DC Iodixanol (Visipaque 320) 100 ml STK-MED ONCE .ROUTE ; Start 12/04/16 at 12:59; Stop 12/04/16 at 13:00; Status DC Insulin Detemir (Levemir) 25 units QHS SQ ; Start 12/04/16 at 21:00; Stop at 21:00; Status DC Insulin Detemir (Levemir) 20 units QHS SQ Last administered on 12/07/16 20:22; Start 12/04/16 at 21:00 Morphine Sulfate 2 mg PRN Q2HR PRN IV PAIN Last administered on 12/04/16 19:20 ; Start 12/04/16 at 19:15 Morphine Sulfate 4 mg PRN Q2HR PRN IV PAIN; Start 12/04/16 at 19:15; Stop 12/05 at 09:17; Status DC Pantoprazole Sodium (Protonix Vial) 40 mg DAILYAC IVP Last administered on 03:49; Start 12/05/16 at 06:27 Verapamil HCl (Verapamil) 5 mg STK-MED ONCE .ROUTE ; Start 12/04/16 at 07:30; Stop 12/05/16 at 08:38; Status DC Enoxaparin Sodium (Lovenox Per Pharmacy Treatment Dosing) 1 each PRN DAILY PRN MC SEE COMMENTS; Start 12/05/16 at 09:00 Enoxaparin Sodium (Lovenox 100mg Syringe) 100 mg Q12HR SQ Last administered on 12/08/16 08:37; Start 12/05/16 at 09:00 Info 1 each 1 each PRN DAILY PRN MC SEE COMMENTS Last administered on 12/07/16 12:19; Start 12/05/16 at 10:15 Potassium Acetate/ Potassium Phosphate/ Magnesium Sulfate/ Calcium Gluconate/ Multivitamins/ Chromium/Copper/ Manganese/Seleni/ Zn/Insulin Human Regular/ Total Parenteral Nutrition/Amino Acids/Dextrose/ Fat Emulsion Intravenous ( Potassium Phosphate/Calcium Gluconate/ Infuvite Asim... 1,512 ml @ 63 mls/hr TPN CONT IV Last administered on 12/05/16 21:14; Start 12/05/16 at 22:00; Stop 12/06/16 at 21:59; Status DC Barium Sulfate (Varibar Thin Liquid Apple) 148 gm 1X ONCE PO Last administered on 12/05/16 13:56; Start 12/05/16 at 14:00; Stop 12/05/16 at 14:01 ; Status DC Dextrose 12.5 gm 12.5 gm PRN Q15MIN PRN IV SEE COMMENTS; Start 12/05/16 at 14: 19 Potassium Acetate/ Potassium Phosphate/ Magnesium Sulfate/ Calcium Gluconate/ Multivitamins/ Chromium/Copper/ Manganese/Seleni/ Zn/Insulin Human Regular/ Total Parenteral Nutrition/Amino Acids/Dextrose/ Fat Emulsion Intravenous ( Potassium Phosphate/Calcium Gluconate/ Infuvite Asim... 1,512 ml @ 63 mls/hr TPN CONT IV Last administered on 12/06/16 20:49; Start 12/06/16 at 22:00; Stop 12/07/16 at 21:59; Status DC Furosemide 20 mg 20 mg DAILY IVP Last administered on 12/08/16 08:37; Start 12/07/16 at 09:00; Stop 12/08/16 at 09:24; Status DC Potassium Acetate/ Potassium Phosphate/ Magnesium Sulfate/ Calcium Gluconate/ Multivitamins/ Chromium/Copper/ Manganese/Seleni/ Zn/Insulin Human Regular/ Total Parenteral Nutrition/Amino Acids/Dextrose/ Fat Emulsion Intravenous ( Potassium Phosphate/Calcium Gluconate/ Infuvite Asim... 1,512 ml @ 63 mls/hr TPN CONT IV Last administered on 12/07/16 20:23; Start 12/07/16 at 22:00; Stop 12/08/16 at 21:59 Lorazepam 0.5 mg 0.5 mg PRN Q6HRS PRN IV ANXIETY / AGITATION Last administered on 12/07/16 23:08; Start 12/07/16 at 16:30 Dextrose 1,000 ml @ 100 mls/hr Q10H IV Last administered on 12/08/16 09:59; Start 12/08/16 at 09:30; Stop 12/08/16 at 19:29 Vitals/I & O Vital Sign - Last 24 Hours 12/07/16 12/07/16 12/07/16 12/07/16 10:40 12:15 15:48 15:49 Temp 98.0 97.5 98.0 97.5 Pulse 90 95 Resp 18 14 B/P 155/71 150/85 Pulse Ox 97 97 94 97 O2 Delivery Nasal Cannula Nasal Cannula Room Air Nasal Cannula O2 Flow Rate 2.0 2.0 1.0 12/07/16 12/07/16 12/07/16 12/07/16 17:35 19:30 20:04 20:31 Temp 97.4 97.4 Pulse 97 93 93 Resp 20 B/P 158/76 158/76 Pulse Ox 92 O2 Delivery Room Air Room Air 12/07/16 12/07/16 12/08/16 12/08/16 21:05 23:09 03:00 03:50 Temp 98.2 98.1 98.2 98.1 Pulse 91 98 98 Resp 20 20 B/P 147/84 144/84 144/84 Pulse Ox 93 94 95 O2 Delivery Room Air Room Air Room Air 12/08/16 12/08/16 12/08/16 07:30 08:00 08:40 Temp 98.6 98.6 Pulse 97 Resp 20 B/P 155/90 Pulse Ox 93 93 O2 Delivery Room Air Room Air Room Air Intake and Output 12/07/16 12/07/16 12/08/16 15:00 23:00 07:00 Intake Total 0 ml 234 ml Output Total 575 ml 850 ml 850 ml Balance -575 ml -850 ml -616 ml EVELYNE ANTONIO MD Dec 08, 2016 10:20
--- NOTE | 2016-12-08 10:47 | PDOC ---
Subjective: Subjective: Onc f/u- Cytopenias, DVT/ PE Pt's daughter present today, asks thoughtful questions. Pt still remains a bit confused, fatigued. Still having trouble swallowing. No other changes. Objective: Vital Signs: Vital Signs Date Time Temp Pulse Resp B/P Pulse Ox O2 Delivery O2 Flow Rate FiO2 12/08/16 08:40 93 Room Air 12/08/16 07:30 98.6 97 20 155/90 98.6 12/07/16 15:49 1.0 Physical Exam: Extremities: No edema General: Alert, No acute distress, Other (fatigued) Lungs: Other (no resp distress) Psych/Mental Status: Other (mild confusion this AM) Skin: No rashes, Other (no bruising) Labs/Imaging: CBC remains stable Assessment/Plan A/P: 1. 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 Will transition to lovenox bid, then eliquis when no more procedures needed. 2. Anemia now due to critical illness. Stable. Minimize labs as able. 3. S/p cardiac arrest, no clear cardiac cause, likely to due PE. 4. CKD- stable 5. Dysphagia. Likely need for PEG this week. Plan: - Minimize labs to minimize anemia. - Therapeutic Lovenox transitioned to eliquis when no procedures needed ( verified with pharmacy this could be crushed through PEG if needed) - Lifelong anticoag recommended given catastrophic presentation. Will sign off; please call with any further questions. D/W his daughter entire hospital course/ plan from heme standpoint. EVELYN LABOY DO Dec 08, 2016 10:47
[2016-12-08 11:19] VITALS: BP 136/80
--- NOTE | 2016-12-08 12:12 | PDOC ---
G I PROGRESS NOTE Reason for Follow-up Oropharyngeal dysphagia Subjective Alert/resting Physical Exam Lungs decreased BS CV S1 S2 ABD +BS, soft, mildly tender Review of Relevant I have reviewed the following items rodolfo (where applicable) has been applied. Labs Laboratory Tests Test 12/06/16 17:59 12/06/16 20:41 12/07/16 01:59 12/07/16 05:19 Glucose (Fingerstick) 239mg/dL (70-99) 179mg/dL (70-99) 184mg/dL (70-99) 180mg/dL (70-99) Test 12/07/16 05:30 12/07/16 12:50 12/07/16 17:32 12/07/16 20:20 White Blood Count 15.7x10^3/uL (4.0-11.0) Red Blood Count 2.58x10^6/uL (4.30-5.70) Hemoglobin 7.6g/dL (13.0-17.5) Hematocrit 23.7% (39.0-53.0) Mean Corpuscular Volume 92fL (79-100) Mean Corpuscular Hemoglobin 30pg (25-35) Mean Corpuscular Hemoglobin Concent 32g/dL (31-37) Red Cell Distribution Width 17.0% (11.5-14.5) Platelet Count 393x10^3/uL (140-400) Neutrophils (%) (Auto) 76% (31-73) Lymphocytes (%) (Auto) 8% (24-48) Monocytes (%) (Auto) 10% (0-9) Eosinophils (%) (Auto) 5% (0-3) Basophils (%) (Auto) 1% (0-3) Neutrophils # (Auto) 11.9x10^3uL (1.8-7.7) Lymphocytes # (Auto) 1.3x10^3/uL (1.0-4.8) Monocytes # (Auto) 1.6x10^3/uL (0.0-1.1) Eosinophils # (Auto) 0.7x10^3/uL (0.0-0.7) Basophils # (Auto) 0.2x10^3/uL (0.0-0.2) Sodium Level 147mmol/L (136-145) Potassium Level 4.6mmol/L (3.5-5.1) Chloride Level 111mmol/L (98-107) Carbon Dioxide Level 27mmol/L (21-32) Anion Gap 9 (6-14) Blood Urea Nitrogen 48mg/dL (8-26) Creatinine 1.9mg/dL (0.7-1.3) Estimated GFR (Cockcroft-Gault) 35.1 BUN/Creatinine Ratio 25 (6-20) Glucose Level 187mg/dL (70-99) Calcium Level 9.3mg/dL (8.5-10.1) Phosphorus Level 3.7mg/dL (2.6-4.7) Magnesium Level 2.0mg/dL (1.8-2.4) Total Bilirubin 2.1mg/dL (0.2-1.0) Aspartate Amino Transf (AST/SGOT) 40U/L (15-37) Alanine Aminotransferase (ALT/SGPT) 81U/L (16-63) Alkaline Phosphatase 194U/L (46-116) Total Protein 6.5g/dL (6.4-8.2) Albumin 2.9g/dL (3.4-5.0) Albumin/Globulin Ratio 0.8 (1.0-1.7) Glucose (Fingerstick) 216mg/dL (70-99) 212mg/dL (70-99) 189mg/dL (70-99) Test 12/07/16 23:05 12/08/16 04:15 12/08/16 06:04 12/08/16 11:46 Glucose (Fingerstick) 190mg/dL (70-99) 177mg/dL (70-99) 243mg/dL (70-99) White Blood Count 13.0x10^3/uL (4.0-11.0) Red Blood Count 2.68x10^6/uL (4.30-5.70) Hemoglobin 8.1g/dL (13.0-17.5) Hematocrit 25.1% (39.0-53.0) Mean Corpuscular Volume 94fL (79-100) Mean Corpuscular Hemoglobin 30pg (25-35) Mean Corpuscular Hemoglobin Concent 32g/dL (31-37) Red Cell Distribution Width 17.1% (11.5-14.5) Platelet Count 408x10^3/uL (140-400) Neutrophils (%) (Auto) 70% (31-73) Lymphocytes (%) (Auto) 12% (24-48) Monocytes (%) (Auto) 12% (0-9) Eosinophils (%) (Auto) 5% (0-3) Basophils (%) (Auto) 1% (0-3) Neutrophils # (Auto) 9.1x10^3uL (1.8-7.7) Lymphocytes # (Auto) 1.6x10^3/uL (1.0-4.8) Monocytes # (Auto) 1.6x10^3/uL (0.0-1.1) Eosinophils # (Auto) 0.6x10^3/uL (0.0-0.7) Basophils # (Auto) 0.1x10^3/uL (0.0-0.2) Sodium Level 147mmol/L (136-145) Potassium Level 4.5mmol/L (3.5-5.1) Chloride Level 111mmol/L (98-107) Carbon Dioxide Level 26mmol/L (21-32) Anion Gap 10 (6-14) Blood Urea Nitrogen 48mg/dL (8-26) Creatinine 1.7mg/dL (0.7-1.3) Estimated GFR (Cockcroft-Gault) 39.9 Glucose Level 174mg/dL (70-99) Calcium Level 9.4mg/dL (8.5-10.1) Laboratory Tests Test 12/07/16 12:50 12/07/16 17:32 12/07/16 20:20 12/07/16 23:05 Glucose (Fingerstick) 216mg/dL (70-99) 212mg/dL (70-99) 189mg/dL (70-99) 190mg/dL (70-99) Test 12/08/16 04:15 12/08/16 06:04 12/08/16 11:46 White Blood Count 13.0x10^3/uL (4.0-11.0) Red Blood Count 2.68x10^6/uL (4.30-5.70) Hemoglobin 8.1g/dL (13.0-17.5) Hematocrit 25.1% (39.0-53.0) Mean Corpuscular Volume 94fL (79-100) Mean Corpuscular Hemoglobin 30pg (25-35) Mean Corpuscular Hemoglobin Concent 32g/dL (31-37) Red Cell Distribution Width 17.1% (11.5-14.5) Platelet Count 408x10^3/uL (140-400) Neutrophils (%) (Auto) 70% (31-73) Lymphocytes (%) (Auto) 12% (24-48) Monocytes (%) (Auto) 12% (0-9) Eosinophils (%) (Auto) 5% (0-3) Basophils (%) (Auto) 1% (0-3) Neutrophils # (Auto) 9.1x10^3uL (1.8-7.7) Lymphocytes # (Auto) 1.6x10^3/uL (1.0-4.8) Monocytes # (Auto) 1.6x10^3/uL (0.0-1.1) Eosinophils # (Auto) 0.6x10^3/uL (0.0-0.7) Basophils # (Auto) 0.1x10^3/uL (0.0-0.2) Sodium Level 147mmol/L (136-145) Potassium Level 4.5mmol/L (3.5-5.1) Chloride Level 111mmol/L (98-107) Carbon Dioxide Level 26mmol/L (21-32) Anion Gap 10 (6-14) Blood Urea Nitrogen 48mg/dL (8-26) Creatinine 1.7mg/dL (0.7-1.3) Estimated GFR (Cockcroft-Gault) 39.9 Glucose Level 174mg/dL (70-99) Calcium Level 9.4mg/dL (8.5-10.1) Glucose (Fingerstick) 177mg/dL (70-99) 243mg/dL (70-99) Microbiology 11/28/16 Blood Culture - Final, Complete NO GROWTH AFTER 5 DAYS 11/24/16 Stool Culture - Final, Complete 11/24/16 Stool Culture Result 1 (ROSIE) - Final, Complete 11/24/16 Campylobacter Antigen Assay - Final, Complete 11/24/16 Campylobactor Result 1 - Final, Complete 11/24/16 Shiga Toxin Test - Final, Complete 11/25/16 Urine Culture - Final, Complete 11/25/16 Urine Culture Result 1 (ROSIE) - Final, Complete Medications Current Medications Sodium Chloride 1,000 ml @ 1,000 mls/hr Q1H IV Last administered on 11/24/16 06:50; Start 11/24/16 at 06:50; Stop 11/24/16 at 07:49; Status DC Epinephrine HCl/ Sodium Chloride (Adrenalin/Iv Sodium Chloride 0.9% 250ml) 254 ml @ 0 mls/hr CONT PRN IV SEE I/O RECORD Last administered on 11/26/16 03:05; Start 11/24/16 at 07:30; Stop 11/27/16 at 08:25; Status DC Insulin Aspart (Novolog) 0-7 UNITS TIDWMEALS SQ ; Start 11/24/16 at 08:00; Stop 11/24/16 at 15:36; Status DC Dextrose 12.5 gm 12.5 gm PRN Q15MIN PRN IV SEE COMMENTS; Start 11/24/16 at 07: 45; Stop 11/25/16 at 23:34; Status DC Sodium Chloride (Iv Sodium Chloride 0.9% 1000ml Bag) 1,000 ml @ 125 mls/hr 1X ONCE IV Last administered on 11/24/16 07:52; Start 11/24/16 at 08:00; Stop at 08:20; Status DC Vancomycin HCl (Vanco Per Pharmacy) 1 each PRN DAILY PRN MC SEE COMMENTS Last administered on 11/24/16 11:26; Start 11/24/16 at 08:15; Stop 11/24/16 at 13:06 ; Status DC Piperacillin Sod/ Tazobactam Sod 1 each 1 each PRN DAILY PRN MC SEE COMMENTS; Start 11/24/16 at 08:15; Stop 11/24/16 at 13:06; Status DC Sodium Bicarbonate 50 meq/Sodium Chloride 1,050 ml @ 125 mls/hr Q8H24M IV Last administered on 11/26/16 11:24; Start 11/24/16 at 08:30; Stop 11/26/16 at 12:41; Status DC Vancomycin HCl 2 gm/Sodium Chloride 500 ml @ 250 mls/hr ONCE ONCE IV Last administered on 11/24/16 10:15; Start 11/24/16 at 08:30; Stop 11/24/16 at 10:29 ; Status DC Piperacillin Sod/ Tazobactam Sod 4.5 gm/Sodium Chloride 100 ml @ 200 mls/hr Q6HRS IV Last administered on 11/24/16 10:10; Start 11/24/16 at 08:30; Stop at 11:15; Status DC Sodium Chloride (Iv Sodium Chloride 0.9% 1000ml Bag) 1,000 ml @ 1,000 mls/hr Q1H IV Last administered on 11/24/16 10:09; Start 11/24/16 at 08:39; Stop at 11:47; Status DC Fentanyl Citrate (Fentanyl 2ml Vial) 25 mcg PRN Q30MIN PRN IV SED Last administered on 11/30/16 17:24; Start 11/24/16 at 08:45; Stop 12/04/16 at 06:29 ; Status DC Lorazepam 1 mg 1 mg PRN Q30MIN PRN IV SEDATION Last administered on 11/25/16 12:26; Start 11/24/16 at 08:45; Stop 11/28/16 at 19:45; Status DC Fentanyl Citrate 30 ml @ 2.5 mls/hr CONT PRN PRN IV IVF Last administered on 07:40; Start 11/24/16 at 08:45; Stop 11/26/16 at 17:49; Status DC Propofol (Diprivan) 100 ml @ 0 mls/hr CONT PRN IV SEE I/O RECORD Last administered on 11/26/16 07:38; Start 11/24/16 at 08:45; Stop 11/26/16 at 17:49 ; Status DC Vecuronium Monroe (Norcuron Bolus) 9 mg PRN Q30MIN PRN IV SHIVERING Last administered on 11/24/16 17:38; Start 11/24/16 at 08:45; Stop 11/26/16 at 17:49 ; Status DC Meperidine HCl (Demerol) 12.5 mg PRN Q30MIN PRN IV SHIVERING Last administered on 11/24/16 22:21; Start 11/24/16 at 08:45; Stop 11/24/16 at 22:21; Status DC Multi-Ingred Cream/Lotion/Oil/ Oint (Artificial Tears Eye Oint) 1 radha PRN Q6HRS PRN OU 0.5 INCH FOR DRY EYE; Start 11/24/16 at 08:45 Famotidine (Pepcid) 20 mg QHS IVP Last administered on 11/27/16 21:12; Start 11/24/16 at 21:00; Stop 11/28/16 at 09:46; Status DC Aspirin (Aspirin) 300 mg DAILY CA Last administered on 12/08/16 09:59; Start at 09:00 Sodium Chloride (Normal Saline Flush) 3 ml QSHIFT PRN IV AFTER MEDS AND BLOOD DRAWS; Start 11/24/16 at 08:45 Acetaminophen (Tylenol) 650 mg Q6HRS NG ; Start 11/24/16 at 12:00; Stop at 11:59; Status DC Acetaminophen (Tylenol) 650 mg PRN Q6HRS PRN CA MILD PAIN / TEMP; Start at 08:45; Stop 11/25/16 at 23:35; Status DC Acetaminophen (Tylenol) 650 mg PRN Q6HRS PRN NG MILD PAIN / TEMP; Start at 08:45 Info 1 ea 1 ea DAILY PRN MC PER PROTOCOL; Start 11/26/16 at 08:45; Stop at 09:17; Status DC Insulin Human Regular 150 unit/ Sodium Chloride 151.5 ml @ 9.16 mls/hr CONT PRN IV SEE I/O RECORD Last administered on 11/24/16 10:13; Start 11/24/16 at 09 :30; Stop 11/27/16 at 08:25; Status DC Piperacillin Sod/ Tazobactam Sod 3.375 gm/Sodium Chloride 50 ml @ 100 mls/hr Q6HRS IV ; Start 11/24/16 at 18:00; Stop 11/24/16 at 18:00; Status DC Vancomycin HCl/ Sodium Chloride (Iv Sodium Chloride 0.9% 500ml Bag) 500 ml @ 250 mls/hr Q24H IV ; Start 11/25/16 at 10:00; Stop 11/25/16 at 10:00; Status DC Vancomycin HCl 1 each 1 each 1X ONCE MC ; Start 11/26/16 at 09:30; Stop at 09:30; Status DC Sodium Chloride (Iv Sodium Chloride 0.9% 1000ml Bag) 1,000 ml @ 1,000 mls/hr 1X ONCE IV Last administered on 11/24/16 11:00; Start 11/24/16 at 11:00; Stop 11/24/16 at 11:59; Status DC Insulin Detemir (Levemir) 12 units QHS SQ ; Start 11/24/16 at 21:00; Stop at 21:00; Status DC Insulin Aspart (Novolog) 10 units 1X ONCE SQ ; Start 11/24/16 at 15:30; Stop at 20:10; Status DC Insulin Aspart (Novolog) 0-7 UNITS Q4HRS SQ ; Start 11/24/16 at 16:00; Stop at 20:10; Status DC Heparin Sodium (Porcine) 8100 unit 8,100 unit 1X ONCE IV Last administered on 11/24/16 17:24; Start 11/24/16 at 17:00; Stop 11/24/16 at 17:01; Status DC Heparin Sodium/ Dextrose 500 ml @ 0 mls/hr CONT PRN IV SEE I/O RECORD Last administered on 11/28/16 02:06; Start 11/24/16 at 16:45; Stop 11/28/16 at 17:12 ; Status DC Heparin Sodium (Porcine) 3,000 unit PRN Q6HRS PRN IV FOR UFH LEVEL LESS THAN 0.2; Start 11/24/16 at 16:45; Stop 11/28/16 at 17:12; Status DC Heparin Sodium (Porcine) 1,500 unit PRN Q6HRS PRN IV FOR UFH LEVEL 0.2 - 0.29 Last administered on 11/26/16 12:08; Start 11/24/16 at 16:45; Stop 11/28/16 at 17:12; Status DC Info 1 each 1 each PRN DAILY PRN MC SEE COMMENTS Last administered on 10:03; Start 11/24/16 at 17:00; Stop 11/28/16 at 17:13; Status DC Piperacillin Sod/ Tazobactam Sod 3.375 gm/Sodium Chloride 50 ml @ 100 mls/hr Q6HRS IV Last administered on 12/07/16 05:21; Start 11/25/16 at 00:00; Stop 12/07/16 at 12:10; Status DC Vancomycin HCl/ Sodium Chloride (Iv Sodium Chloride 0.9% 250ml) 250 ml @ 250 mls/hr 1X ONCE IV ; Start 11/24/16 at 21:30; Stop 11/24/16 at 22:29; Status UNV Vancomycin HCl 1 each 1 each PRN DAILY PRN MC SEE COMMENTS Last administered on 11/25/16 03:30; Start 11/25/16 at 01:00; Stop 11/25/16 at 08:57; Status DC Vancomycin HCl/ Sodium Chloride (Iv Sodium Chloride 0.9% 500ml Bag) 500 ml @ 250 mls/hr Q24H IV ; Start 11/25/16 at 10:00; Stop 11/25/16 at 10:00; Status DC Vancomycin HCl 1 each 1X ONCE MC ; Start 11/26/16 at 09:30; Stop 11/26/16 at 09 :30; Status DC Enoxaparin Sodium (Lovenox Per Pharmacy Prophylaxis Dosing) 1 each PRN DAILY PRN MC SEE COMMENTS; Start 11/25/16 at 08:45; Status UNV Chlorhexidine Gluconate 15 ml 15 ml BID MM Last administered on 11/26/16 08:37 ; Start 11/25/16 at 21:00; Stop 11/26/16 at 17:49; Status DC Magnesium Sulfate/ Dextrose 50 ml @ 25 mls/hr PRN DAILY PRN IV for Mag < 1.7 on am labs Last administered on 11/26/16 05:29; Start 11/25/16 at 09:45; Stop 11/27/16 at 08:47; Status DC Magnesium Sulfate/ Dextrose 50 ml @ 25 mls/hr PRN DAILY PRN IV for Mag < 1.7 on am labs; Start 11/25/16 at 09:45; Status UNV Sodium Chloride 500 ml @ 0 mls/hr QID PRN IV UO< 30cc/hr over previous 6hrs Last administered on 11/25/16 10:54; Start 11/25/16 at 09:45; Stop 11/27/16 at 11:25; Status DC Magnesium Sulfate/ Dextrose (Magnesium Sulfate PREMIX 2GM) 50 ml @ 25 mls/hr 1X ONCE IV Last administered on 11/25/16 13:28; Start 11/25/16 at 12:30; Stop 11/25/16 at 14:29; Status DC Lidocaine/Sodium Bicarbonate 20 ml 20 ml STK-MED ONCE IJ ; Start 11/25/16 at 12: 35; Stop 11/25/16 at 12:36; Status DC Heparin Sodium/ Sodium Chloride 500 ml @ As Directed STK-MED ONCE .ROUTE ; Start 11/25/16 at 12:35; Stop 11/25/16 at 12:36; Status DC Lidocaine/Sodium Bicarbonate (Buffered Lidocaine 1%) 3 ml 1X ONCE IJ Last administered on 11/25/16 13:15; Start 11/25/16 at 13:15; Stop 11/25/16 at 13:16 ; Status DC Heparin Sodium/ Sodium Chloride 60 unit 1X ONCE IV Last administered on 13:16; Start 11/25/16 at 13:15; Stop 11/25/16 at 13:16; Status DC Amiodarone HCl (Cordarone) 450 mg STK-MED ONCE .ROUTE ; Start 11/25/16 at 12:00 ; Stop 11/25/16 at 14:56; Status DC Epinephrine HCl (Adrenalin) 30 mg STK-MED ONCE .ROUTE ; Start 11/25/16 at 12:00 ; Stop 11/25/16 at 14:56; Status DC Atropine Sulfate 1.5 mg STK-MED ONCE .ROUTE ; Start 11/25/16 at 12:00; Stop at 14:56; Status DC Epinephrine HCl 4 mg STK-MED ONCE .ROUTE ; Start 11/25/16 at 12:00; Stop at 14:56; Status DC Sodium Bicarbonate 150 meq 150 meq STK-MED ONCE .ROUTE ; Start 11/25/16 at 12:00 ; Stop 11/25/16 at 14:56; Status DC Midazolam HCl (Versed 100mg/ 100ml Premix) 100 ml @ 0 mls/hr CONT PRN IV SEE I/ O RECORD; Start 11/25/16 at 23:30; Stop 11/26/16 at 17:49; Status DC Insulin Aspart (Novolog) 0-7 UNITS TIDWMEALS SQ Last administered on 11/27/16 19:43; Start 11/26/16 at 08:00; Stop 11/28/16 at 01:01; Status DC Dextrose 12.5 gm PRN Q15MIN PRN IV SEE COMMENTS; Start 11/25/16 at 23:30; Stop 12/05/16 at 14:19; Status DC Acetaminophen 650 mg 650 mg PRN Q6HRS PRN CA MILD PAIN / TEMP Last administered on 11/28/16 04:19; Start 11/25/16 at 23:30; Stop 12/02/16 at 13:29 ; Status DC Potassium Chloride 50 ml @ 50 mls/hr Q1H IV Last administered on 11/26/16 11: 23; Start 11/26/16 at 10:30; Stop 11/26/16 at 12:29; Status DC Sodium Bicarbonate/ Sterile Water 1,100 ml @ 100 mls/hr Q11H IV Last administered on 11/27/16 00:56; Start 11/26/16 at 13:00; Stop 11/27/16 at 11:25 ; Status DC Info 1 each 1 each PRN DAILY PRN MC SEE COMMENTS Last administered on 12/07/16 12:20; Start 11/26/16 at 12:45 Calcium Chloride/ Sodium Chloride (Iv Sodium Chloride 0.9% 100ml) 120 ml @ 240 mls/hr 1X ONCE IV Last administered on 11/26/16 13:22; Start 11/26/16 at 13: 15; Stop 11/26/16 at 13:44; Status DC Ondansetron HCl 4 mg 4 mg PRN Q6HRS PRN IV NAUSEA/VOMITING Last administered on 12/03/16 21:17; Start 11/26/16 at 13:45; Stop 12/04/16 at 06:30; Status DC Sodium Chloride/ Potassium Chloride/ Magnesium Sulfate/ Calcium Gluconate/ Multivitamins/ Chromium/Copper/ Manganese/Seleni/ Zn/Total Parenteral Nutrition/ Amino Acids/Dextrose/ Fat Emulsion Intravenous (Sodium Chloride/ Infuvite Adult / Multitrace-5 Conc/ Tpn - Tpn Fluid/ Trophami... 1,594.468 ml @ 66.436 m... TPN CONT IV Last administered on 11/26/16 21:27; Start 11/26/16 at 22:00; Stop 11/27/16 at 21:59; Status DC Albuterol Sulfate 2.5 mg 2.5 mg 1X ONCE NEB Last administered on 11/27/16 07: 21; Start 11/27/16 at 06:45; Stop 11/27/16 at 06:46; Status DC Magnesium Sulfate/ Dextrose 50 ml @ 25 mls/hr PRN DAILY PRN IV for Mag < 1.7 on am labs; Start 11/27/16 at 08:45 Sodium Chloride 90 meq/Potassium Chloride 50 meq/ Magnesium Sulfate 10 meq/ Calcium Gluconate 10 meq/ Multivitamins 10 ml/Chromium/ Copper/Manganese/ Seleni /Zn 1 ml/ Total Parenteral Nutrition/Amino Acids/Dextrose/ Fat Emulsion Intravenous 1,594.468 ml @ 66.436 m... TPN CONT IV ; Start 11/27/16 at 22:00; Stop 11/28/16 at 21:59; Status Cancel Potassium Chloride/ Magnesium Sulfate/ Calcium Gluconate/ Multivitamins/ Chromium/Copper/ Manganese/Seleni/ Zn/Total Parenteral Nutrition/Amino Acids/ Dextrose/ Fat Emulsion Intravenous (Infuvite Adult/ Multitrace-5 Conc/ Tpn - Tpn Fluid/ Trophamine/ Dextrose 70%-Water Iv So... 1,512 ml @ 63 mls/hr TPN CONT IV Last administered on 11/27/16 21:22; Start 11/27/16 at 22:00; Stop at 21:59; Status DC Nitroglycerin 0.4 mg 0.4 mg STK-MED ONCE SL Last administered on 11/27/16 11: 26; Start 11/27/16 at 11:16; Stop 11/27/16 at 11:17; Status DC Albumin Human (Albuminar) 100 ml @ 100 mls/hr TID IV Last administered on 11/29 08:56; Start 11/27/16 at 12:00; Stop 11/29/16 at 09:59; Status DC Sodium Bicarbonate 50 meq 1X ONCE IV Last administered on 11/27/16 13:24; Start 11/27/16 at 12:45; Stop 11/27/16 at 12:46; Status DC Hydralazine HCl (Apresoline) 10 mg PRN Q4HRS PRN IVP ELEVATED BP, SEE COMMENTS Last administered on 12/03/16 20:18; Start 11/27/16 at 12:45 Metoprolol Tartrate (Lopressor) 5 mg Q6HRS IVP Last administered on 11/27/16 15:40; Start 11/27/16 at 15:30; Stop 11/27/16 at 19:11; Status DC Metoprolol Tartrate 5 mg 5 mg Q6HRS@04,10,16,22 IVP Last administered on 11:39; Start 11/27/16 at 22:00 Nicardipine HCl/ Sodium Chloride (Cardene/Iv Sodium Chloride 0.9% 250ml) 270 ml @ 0 mls/hr CONT PRN IV SEE I/O RECORD Last administered on 11/28/16 01:13; Start 11/27/16 at 20:45; Stop 12/05/16 at 09:17; Status DC Vancomycin HCl 1 each 1 each PRN DAILY PRN MC SEE COMMENTS Last administered on 11/27/16 21:38; Start 11/27/16 at 22:00; Stop 11/28/16 at 08:30; Status DC Vancomycin HCl 2 gm/Sodium Chloride 500 ml @ 250 mls/hr 1X ONCE IV Last administered on 11/27/16 22:57; Start 11/27/16 at 22:00; Stop 11/27/16 at 23:59 ; Status DC Vancomycin HCl/ Sodium Chloride (Iv Sodium Chloride 0.9% 500ml Bag) 500 ml @ 250 mls/hr Q24H IV ; Start 11/28/16 at 22:00; Stop 11/28/16 at 22:00; Status DC Vancomycin HCl 1 each 1X ONCE MC ; Start 11/29/16 at 21:30; Stop 11/29/16 at 21 :30; Status DC Insulin Aspart (Novolog) 0-7 UNITS Q6HRS SQ Last administered on 12/07/16 17:38 ; Start 11/28/16 at 01:00 Linezolid 600 mg 600 mg BID PO ; Start 11/28/16 at 09:00; Stop 11/28/16 at 19:45 ; Status DC Pantoprazole Sodium/Sodium Chloride (Protonix Iv/Iv Sodium Chloride 0.9% 100ml) 100 ml @ 10 mls/hr Q10H PRN IV . Last administered on 12/01/16 13:01; Start 11/28/16 at 10:00; Stop 12/01/16 at 15:59; Status DC Ipratropium Monroe (Atrovent) 0.5 mg RTQID NEB Last administered on 12/08/16 08:00; Start 11/28/16 at 12:00 Budesonide (Pulmicort) 0.5 mg RTBID NEB Last administered on 12/06/16 07:36; Start 11/28/16 at 20:00; Stop 12/06/16 at 18:19; Status DC Furosemide 40 mg 40 mg 1X ONCE IVP Last administered on 11/28/16 12:15; Start 11/28/16 at 12:15; Stop 11/28/16 at 12:16; Status DC Potassium Chloride/ Magnesium Sulfate/ Calcium Gluconate/ Multivitamins/ Chromium/Copper/ Manganese/Seleni/ Zn/Total Parenteral Nutrition/Amino Acids/ Dextrose/ Fat Emulsion Intravenous (Calcium Gluconate/ Infuvite Adult/ Multitrace-5 Conc/ Tpn - Tpn Fluid/ Trophami... 1,512 ml @ 63 mls/hr TPN CONT IV Last administered on 11/28/16 21:18; Start 11/28/16 at 22:00; Stop at 21:59; Status DC Lidocaine/Sodium Bicarbonate (Buffered Lidocaine 1%) 3 ml 1X ONCE IJ Last administered on 11/28/16 15:45; Start 11/28/16 at 14:45; Stop 11/28/16 at 14:46 ; Status DC Heparin Sodium/ Sodium Chloride 60 unit 1X ONCE IV Last administered on 15:45; Start 11/28/16 at 14:45; Stop 11/28/16 at 14:46; Status DC Heparin Sodium (Porcine) 2500 unit 2,500 unit 1X ONCE INT CAT Last administered on 11/28/16 15:45; Start 11/28/16 at 14:45; Stop 11/28/16 at 14:46 ; Status DC Linezolid 300 ml @ 300 mls/hr Q12HR IV Last administered on 12/01/16 21:13; Start 11/28/16 at 21:00; Stop 12/02/16 at 08:23; Status DC Potassium Chloride/ Potassium Acetate/ Magnesium Sulfate/ Calcium Gluconate/ Multivitamins/ Chromium/Copper/ Manganese/Seleni/ Zn/Total Parenteral Nutrition/ Amino Acids/Dextrose/ Fat Emulsion Intravenous (Calcium Gluconate/ Infuvite Adult/ Multitrace-5 Conc/ Tpn - Tpn Flu... 1,512 ml @ 63 mls/hr TPN CONT IV Last administered on 11/29/16 21:54; Start 11/29/16 at 22:00; Stop 11/30/16 at 21:59; Status DC Iohexol (Omnipaque 300 Mg/ml) 100 ml STK-MED ONCE .ROUTE ; Start 11/29/16 at 09: 12; Stop 11/29/16 at 09:13; Status DC Lidocaine/Sodium Bicarbonate 20 ml 20 ml STK-MED ONCE IJ ; Start 11/29/16 at 09: 12; Stop 11/29/16 at 09:13; Status DC Heparin Sodium/ Sodium Chloride 500 ml @ As Directed STK-MED ONCE .ROUTE ; Start 11/29/16 at 09:12; Stop 11/29/16 at 09:13; Status DC Lidocaine/Sodium Bicarbonate (Buffered Lidocaine 1%) 2 ml 1X ONCE IJ Last administered on 11/29/16 10:22; Start 11/29/16 at 10:00; Stop 11/29/16 at 10:15 ; Status DC Iohexol (Omnipaque 300 Mg/ml) 30 ml 1X ONCE IART Last administered on 10:22; Start 11/29/16 at 10:00; Stop 11/29/16 at 10:15; Status DC Heparin Sodium/ Sodium Chloride 1,000 unit 1X ONCE IV Last administered on 10:21; Start 11/29/16 at 10:00; Stop 11/29/16 at 10:15; Status DC Info 1 each 1 each PRN DAILY PRN MC SEE COMMENTS; Start 11/29/16 at 10:30; Stop 12/01/16 at 10:29; Status DC Heparin Sodium/ Dextrose 500 ml @ 0 mls/hr CONT PRN IV SEE I/O RECORD; Start at 15:15; Status UNV Heparin Sodium/ Dextrose 500 ml @ 0 mls/hr CONT PRN IV SEE I/O RECORD Last administered on 12/04/16 19:23; Start 11/29/16 at 15:15; Stop 12/05/16 at 08:51 ; Status DC Nitroglycerin/ Dextrose 250 ml @ 0 mls/hr CONT PRN IV SEE I/O RECORD Last administered on 11/30/16 10:53; Start 11/30/16 at 10:45; Stop 12/05/16 at 09:17 ; Status DC Potassium Acetate/ Potassium Phosphate/ Magnesium Sulfate/ Calcium Gluconate/ Multivitamins/ Chromium/Copper/ Manganese/Seleni/ Zn/Insulin Human Regular/ Total Parenteral Nutrition/Amino Acids/Dextrose/ Fat Emulsion Intravenous ( Potassium Phosphate/Calcium Gluconate/ Infuvite Asim... 1,472.1 ml @ 63 mls/hr TPN CONT IV Last administered on 11/30/16 21:31; Start 11/30/16 at 22:00; Stop 12/01/16 at 21:21; Status DC Furosemide 40 mg 40 mg 1X ONCE IVP Last administered on 11/30/16 15:02; Start 11/30/16 at 15:00; Stop 11/30/16 at 15:01; Status DC Iron Sucrose/ Sodium Chloride (Venofer/Iv Sodium Chloride 0.9% 250ml) 275 ml @ 78.571 mls/ hr 1X ONCE IV Last administered on 12/01/16 09:58; Start at 09:00; Stop 12/01/16 at 12:29; Status DC Insulin Detemir (Levemir) 12 units QHS SQ Last administered on 12/03/16 21:28 ; Start 12/01/16 at 21:00; Stop 12/04/16 at 16:49; Status DC Info 1 each 1 each PRN DAILY PRN MC SEE COMMENTS Last administered on 12:18; Start 12/01/16 at 10:45; Stop 12/05/16 at 09:17; Status DC Potassium Acetate/ Potassium Phosphate/ Magnesium Sulfate/ Calcium Gluconate/ Multivitamins/ Chromium/Copper/ Manganese/Seleni/ Zn/Insulin Human Regular/ Total Parenteral Nutrition/Amino Acids/Dextrose/ Fat Emulsion Intravenous ( Potassium Phosphate/Calcium Gluconate/ Infuvite Asim... 1,512 ml @ 64.708 mls/ hr TPN CONT IV Last administered on 12/01/16 22:20; Start 12/01/16 at 22:00; Stop 12/02/16 at 21:21; Status DC Pantoprazole Sodium (Protonix Vial) 40 mg DAILYAC IVP Last administered on 12/04 10:37; Start 12/02/16 at 07:30; Stop 12/05/16 at 06:27; Status DC Acetaminophen 650 mg 650 mg 1X PRN PRN PO PRN prior to blood transfusion; Start 12/02/16 at 06:30; Stop 12/03/16 at 06:29; Status DC Potassium Acetate/ Potassium Phosphate/ Magnesium Sulfate/ Calcium Gluconate/ Multivitamins/ Chromium/Copper/ Manganese/Seleni/ Zn/Insulin Human Regular/ Total Parenteral Nutrition/Amino Acids/Dextrose/ Fat Emulsion Intravenous ( Potassium Phosphate/Calcium Gluconate/ Infuvite Asim... 1,512 ml @ 64.708 mls/ hr TPN CONT IV Last administered on 12/02/16 21:46; Start 12/02/16 at 22:00; Stop 12/03/16 at 21:21; Status DC Furosemide (Lasix) 40 mg DAILY IVP Last administered on 12/03/16 08:47; Start 12/02/16 at 12:30; Stop 12/04/16 at 06:30; Status DC Acetaminophen (Acetaminophen Supp) 650 mg PRN Q6HRS PRN CA MILD PAIN / TEMP; Start 12/02/16 at 13:30; Stop 12/02/16 at 13:36; Status DC Acetaminophen 650 mg 650 mg PRN Q6HRS PRN CA MILD PAIN / TEMP; Start 12/02/16 at 13:45 Potassium Acetate/ Potassium Phosphate/ Magnesium Sulfate/ Calcium Gluconate/ Multivitamins/ Chromium/Copper/ Manganese/Seleni/ Zn/Insulin Human Regular/ Total Parenteral Nutrition/Amino Acids/Dextrose/ Fat Emulsion Intravenous ( Potassium Phosphate/Calcium Gluconate/ Infuvite Asim... 1,512 ml @ 63 mls/hr TPN CONT IV Last administered on 12/03/16 21:05; Start 12/03/16 at 22:00; Stop 12/04/16 at 21:59; Status DC Fentanyl Citrate (Fentanyl 2ml Vial) 25 mcg PRN Q30MIN PRN IV SED; Start at 06:29; Stop 12/05/16 at 09:17; Status DC Ondansetron HCl (Zofran) 4 mg PRN Q6HRS PRN IV NAUSEA/VOMITING; Start 12/04/16 at 06:30 Furosemide (Lasix) 40 mg DAILY IVP Last administered on 12/06/16t 10:20; Start 12/04/16 at 06:30; Stop 12/06/16 at 15:12; Status DC Lidocaine HCl 20 ml 20 ml STK-MED ONCE .ROUTE ; Start 12/04/16 at 07:02; Stop at 07:03; Status DC Heparin Sodium/ Sodium Chloride 1,500 ml @ As Directed STK-MED ONCE .ROUTE ; Start 12/04/16 at 07:02; Stop 12/04/16 at 07:03; Status DC Iodixanol (Visipaque 320) 100 ml STK-MED ONCE .ROUTE ; Start 12/04/16 at 07:02; Stop 12/04/16 at 07:03; Status DC Nitroglycerin (Nitroglycerin) 200 mcg STK-MED ONCE .ROUTE ; Start 12/04/16 at 07 :05; Stop 12/04/16 at 07:06; Status DC Verapamil HCl (Verapamil) 5 mg STK-MED ONCE .ROUTE ; Start 12/04/16 at 07:05; Stop 12/04/16 at 07:06; Status DC Midazolam HCl (Versed) 2 mg STK-MED ONCE .ROUTE ; Start 12/04/16 at 07:05; Stop 12/04/16 at 07:06; Status DC Fentanyl Citrate (Fentanyl 2ml Vial) 100 mcg STK-MED ONCE .ROUTE ; Start at 07:05; Stop 12/04/16 at 07:06; Status DC Heparin Sodium (Porcine) 10,000 unit STK-MED ONCE .ROUTE ; Start 12/04/16 at 07: 05; Stop 12/04/16 at 07:06; Status DC Nitroglycerin (Nitroglycerin) 200 mcg STK-MED ONCE .ROUTE ; Start 12/04/16 at 07 :17; Stop 12/04/16 at 07:18; Status DC Verapamil HCl (Verapamil) 5 mg STK-MED ONCE .ROUTE ; Start 12/04/16 at 07:18; Stop 12/04/16 at 07:19; Status DC Nitroglycerin (Nitroglycerin) 200 mcg 1X ONCE IART Last administered on 07:42; Start 12/04/16 at 07:45; Stop 12/04/16 at 07:46; Status DC Verapamil HCl (Verapamil) 2.5 mg 1X ONCE IART Last administered on 12/04/16 07:43; Start 12/04/16 at 07:45; Stop 12/04/16 at 07:46; Status DC Heparin Sodium/ Sodium Chloride 1,000 unit 1X ONCE IART Last administered on 07:43; Start 12/04/16 at 07:45; Stop 12/04/16 at 07:46; Status DC Midazolam HCl (Versed) 0.5 mg 1X ONCE IV Last administered on 12/04/16 07:44 ; Start 12/04/16 at 07:45; Stop 12/04/16 at 07:46; Status DC Fentanyl Citrate (Fentanyl 2ml Vial) 25 mcg 1X ONCE IV Last administered on 07:44; Start 12/04/16 at 07:45; Stop 12/04/16 at 07:46; Status DC Iodixanol (Visipaque 320) 100 ml 1X ONCE IART Last administered on 12/04/16 07:42; Start 12/04/16 at 07:45; Stop 12/04/16 at 07:46; Status DC Lidocaine HCl 20 ml 1X ONCE IJ Last administered on 12/04/16 07:43; Start at 07:45; Stop 12/04/16 at 07:46; Status DC Info 1 each 1 each PRN DAILY PRN MC SEE COMMENTS; Start 12/04/16 at 07:45; Stop 12/06/16 at 07:44; Status DC Potassium Acetate/ Potassium Phosphate/ Magnesium Sulfate/ Calcium Gluconate/ Multivitamins/ Chromium/Copper/ Manganese/Seleni/ Zn/Insulin Human Regular/ Total Parenteral Nutrition/Amino Acids/Dextrose/ Fat Emulsion Intravenous ( Potassium Phosphate/Calcium Gluconate/ Infuvite Asim... 1,512 ml @ 63 mls/hr TPN CONT IV Last administered on 12/04/16 22:47; Start 12/04/16 at 22:00; Stop 12/05/16 at 21:59; Status DC Lidocaine HCl 20 ml 20 ml STK-MED ONCE .ROUTE ; Start 12/04/16 at 12:59; Stop at 13:00; Status DC Heparin Sodium/ Sodium Chloride 1,000 ml @ As Directed STK-MED ONCE .ROUTE ; Start 12/04/16 at 12:59; Stop 12/05/16 at 08:51; Status DC Iodixanol (Visipaque 320) 100 ml STK-MED ONCE .ROUTE ; Start 12/04/16 at 12:59; Stop 12/04/16 at 13:00; Status DC Insulin Detemir (Levemir) 25 units QHS SQ ; Start 12/04/16 at 21:00; Stop at 21:00; Status DC Insulin Detemir (Levemir) 20 units QHS SQ Last administered on 12/07/16 20:22; Start 12/04/16 at 21:00 Morphine Sulfate 2 mg PRN Q2HR PRN IV PAIN Last administered on 12/04/16 19:20 ; Start 12/04/16 at 19:15 Morphine Sulfate 4 mg PRN Q2HR PRN IV PAIN; Start 12/04/16 at 19:15; Stop 12/05 at 09:17; Status DC Pantoprazole Sodium (Protonix Vial) 40 mg DAILYAC IVP Last administered on 03:49; Start 12/05/16 at 06:27 Verapamil HCl (Verapamil) 5 mg STK-MED ONCE .ROUTE ; Start 12/04/16 at 07:30; Stop 12/05/16 at 08:38; Status DC Enoxaparin Sodium (Lovenox Per Pharmacy Treatment Dosing) 1 each PRN DAILY PRN MC SEE COMMENTS; Start 12/05/16 at 09:00 Enoxaparin Sodium (Lovenox 100mg Syringe) 100 mg Q12HR SQ Last administered on 12/08/16 08:37; Start 12/05/16 at 09:00 Info 1 each 1 each PRN DAILY PRN MC SEE COMMENTS Last administered on 12/07/16 12:19; Start 12/05/16 at 10:15 Potassium Acetate/ Potassium Phosphate/ Magnesium Sulfate/ Calcium Gluconate/ Multivitamins/ Chromium/Copper/ Manganese/Seleni/ Zn/Insulin Human Regular/ Total Parenteral Nutrition/Amino Acids/Dextrose/ Fat Emulsion Intravenous ( Potassium Phosphate/Calcium Gluconate/ Infuvite Asim... 1,512 ml @ 63 mls/hr TPN CONT IV Last administered on 12/05/16 21:14; Start 12/05/16 at 22:00; Stop 12/06/16 at 21:59; Status DC Barium Sulfate (Varibar Thin Liquid Apple) 148 gm 1X ONCE PO Last administered on 12/05/16 13:56; Start 12/05/16 at 14:00; Stop 12/05/16 at 14:01 ; Status DC Dextrose 12.5 gm 12.5 gm PRN Q15MIN PRN IV SEE COMMENTS; Start 12/05/16 at 14: 19 Potassium Acetate/ Potassium Phosphate/ Magnesium Sulfate/ Calcium Gluconate/ Multivitamins/ Chromium/Copper/ Manganese/Seleni/ Zn/Insulin Human Regular/ Total Parenteral Nutrition/Amino Acids/Dextrose/ Fat Emulsion Intravenous ( Potassium Phosphate/Calcium Gluconate/ Infuvite Asim... 1,512 ml @ 63 mls/hr TPN CONT IV Last administered on 12/06/16 20:49; Start 12/06/16 at 22:00; Stop 12/07/16 at 21:59; Status DC Furosemide 20 mg 20 mg DAILY IVP Last administered on 12/08/16 08:37; Start 12/07/16 at 09:00; Stop 12/08/16 at 09:24; Status DC Potassium Acetate/ Potassium Phosphate/ Magnesium Sulfate/ Calcium Gluconate/ Multivitamins/ Chromium/Copper/ Manganese/Seleni/ Zn/Insulin Human Regular/ Total Parenteral Nutrition/Amino Acids/Dextrose/ Fat Emulsion Intravenous ( Potassium Phosphate/Calcium Gluconate/ Infuvite Asim... 1,512 ml @ 63 mls/hr TPN CONT IV Last administered on 12/07/16 20:23; Start 12/07/16 at 22:00; Stop 12/08/16 at 21:59 Lorazepam 0.5 mg 0.5 mg PRN Q6HRS PRN IV ANXIETY / AGITATION Last administered on 12/07/16 23:08; Start 12/07/16 at 16:30 Dextrose 1,000 ml @ 100 mls/hr Q10H IV Last administered on 4/3/17at 09:59; Start 12/08/16 at 09:30; Stop 12/08/16 at 19:29 Vitals/I & O Vital Sign - Last 24 Hours 12/07/16 12/07/16 12/07/16 12/07/16 12:15 15:48 15:49 17:35 Temp 97.5 97.5 Pulse 95 97 Resp 14 B/P 150/85 Pulse Ox 97 94 97 O2 Delivery Nasal Cannula Room Air Nasal Cannula O2 Flow Rate 2.0 1.0 12/07/16 12/07/16 12/07/16 12/07/16 19:30 20:04 20:31 21:05 Temp 97.4 97.4 Pulse 93 93 Resp 20 B/P 158/76 158/76 Pulse Ox 92 93 O2 Delivery Room Air Room Air Room Air 12/07/16 12/08/16 12/08/16 12/08/16 23:09 03:00 03:50 07:30 Temp 98.2 98.1 98.6 98.2 98.1 98.6 Pulse 91 98 98 97 Resp 20 20 20 B/P 147/84 144/84 144/84 155/90 Pulse Ox 94 95 93 O2 Delivery Room Air Room Air Room Air 12/08/16 12/08/16 12/08/16 12/08/16 08:00 08:40 11:19 11:39 Temp 97.7 97.7 Pulse 104 104 Resp 20 B/P 136/80 136/80 Pulse Ox 93 96 O2 Delivery Room Air Room Air Nasal Cannula O2 Flow Rate 2.0 Intake and Output 12/07/16 12/07/16 12/08/16 15:00 23:00 07:00 Intake Total 0 ml 234 ml Output Total 575 ml 850 ml 850 ml Balance -575 ml -850 ml -616 ml Problem List Problems Medical Problems: (1) Cardiac arrest Status: Acute Assessment Oropharyngeal dysphagia- S/p arrest, on TPN for now. Awiat interval speech path evaluation, patient prefers to avoid peg tube if possible. WENDY SANTIZO MD Dec 08, 2016 12:12
--- NOTE | 2016-12-08 12:20 | RAD ---
Exam: PA and lateral chest radiograph History: Congestive heart failure. Comparison: 12/03/2016. Findings: Cardiac silhouette appears mildly enlarged. Right internal jugular central venous catheter is unchanged. No pneumothorax is appreciated. There is worsening opacification of the right lower mid lung field, which could be combination of pleural effusion and atelectasis versus airspace disease. Pulmonary vascularity is without convincing failure. Impression: Worsening opacification of the right lung field, could be worsening pleural effusion and atelectasis versus airspace disease.
[2016-12-08] MEDS: TPN PER PHARMACY MC PRN (13:40)
[2016-12-08 15:03] VITALS: BP 145/70
[2016-12-08 17:09] LABS: BILIRUBIN,URINE MODERATE (NEG); GLUCOSE,URINE NEGATIVE (NEG); NITRITE,URINE NEGATIVE (NEG); PROTEIN,URINE 100 mg/dL (NEG-TRACE); UROBILINOGEN,URINE 0.2 mg/dL (0.2 mg/dL)
[2016-12-08 17:23] LABS: BACTERIA,URINE FEW /HPF (0-FEW); RBC,URINE TNTC /HPF (0-2)
[2016-12-08 17:24] LABS: YEAST,URINE PRESENT /HPF
[2016-12-08 19:10] VITALS: BP 158/87
[2016-12-08] MEDS: LORAZEPAM 2 MG/ML VIAL. IV PRN (21:17)
[2016-12-08] MEDS: INSULIN DETEMIR 300 UNITS/3 ML INSULN.PEN. SQ SCH (21:22)
[2016-12-08] MEDS ORDERED: DEXTROSE 70% IV SCH ×10 (22:00)
[2016-12-08] MEDS ORDERED: TOTAL PARENTERAL NUTRITION IV SCH ×10 (22:00)
[2016-12-08] MEDS ORDERED: [UNRECOGNIZED DRUG - OTHER] IV SCH ×10 (22:00)
[2016-12-08] MEDS ORDERED: AMINO ACIDS IV SCH ×10 (22:00)
[2016-12-08 23:18] VITALS: BP 140/73
[2016-12-09] MEDS: INSULIN ASPART 300 UNITS/3 ML INSULN.PEN SQ SCH ×4 (01:51→18:00)
[2016-12-09 03:21] VITALS: BP 150/83
[2016-12-09] MEDS: METOPROLOL TARTRATE 5 MG/5 ML VIAL. IVP SCH ×4 (04:47→21:28)
[2016-12-09 05:17] LABS: BASO # 0.1 x10^3/uL (0.0-0.2); BASO % 1 % (0-3); EOS % 6 % (0-3); HEMATOCRIT 24.2 % (39.0-53.0); LYMPH # 1.5 x10^3/uL (1.0-4.8); LYMPH % 13 % (24-48); MEAN CORPUSCULAR HEMOGLOBIN 30 pg (25-35); MEAN CORPUSCULAR HGB CONC 33 g/dL (31-37); MEAN CORPUSCULAR VOLUME 91 fL (79-100); MONO % 11 % (0-9); NEUT % 69 % (31-73); PLATELET COUNT 410 x10^3/uL (140-400); RED BLOOD COUNT 2.66 x10^6/uL (4.30-5.70); RED CELL DISTRIBUTION WIDTH 16.5 % (11.5-14.5)
[2016-12-09 07:00] VITALS: BP 147/75
[2016-12-09] MEDS: ASPIRIN 300 MG SUPP.RECT PR SCH (09:00)
[2016-12-09] MEDS: PANTOPRAZOLE IV PUSH 40 MG VIAL. IVP SCH (10:23)
[2016-12-09 10:27] LABS: ALBUMIN 2.9 g/dL (3.4-5.0); ALBUMIN/GLOBULIN RATIO 0.8 (1.0-1.7); CALCIUM 9.4 mg/dL (8.5-10.1); CREATININE 1.7 mg/dL (0.7-1.3); GFR 39.9; POTASSIUM 4.5 mmol/L (3.5-5.1); TOTAL BILIRUBIN 1.5 mg/dL (0.2-1.0); TOTAL PROTEIN 6.7 g/dL (6.4-8.2)
[2016-12-09 10:29] VITALS: BP 158/77
--- NOTE | 2016-12-09 11:21 | PDOC ---
PROGRESS NOTES Chief Complaint Chief Complaint S/P VT/VF Cardiac arrest Acute respiratory failure possibly 2/2 PE; extubated 11/27 DVT bilateral LEs - IVC filter placed 11/29 Acute blood loss anemia s/p transfusion dysphagia Silent Aspiration; failed swallow study HFrEF [place] vs. CKD DM II bactremia with Peptostreptococcus sp. on Zosyn (day 13) HLD leukocytosis History of Present Illness History of Present Illness Urinary retention last night needing re insertion of brown Dark urine/bloody urine continues HGb stable at 8 VS ok NO pain Pt on ASA 300 TX and Lovenox BID Dw cards and video effects editor consult placed Extensive discussion with family in room, at elast 30 mins alone Leaning towards PEG Does not want to go to [facility] but ok with rehab Pt seems ok with PEG TPN running NO sleep with ativan and ambien PLAN: Inform GI of their interest in PEG COnt TPN for now SW for SNU screen - \ Hh trevon Monitor hematuria MAintain brown Dw RN and family and pt May hold ASA TX for now, but cont lovenox....(if ok with other services) MDM complex INTRANET SUPPORT to re maranda again - was told could take weeks to mos to recover swallow Trial of Restoril for sleep Vitals Vitals Vital Signs Date Time Temp Pulse Resp B/P Pulse Ox O2 Delivery O2 Flow Rate FiO2 12/09/16 10:29 97.8 95 22 158/77 95 Nasal Cannula 97.8 12/09/16 08:00 2.0 Physical Exam General: Alert, No acute distress, Other (fatigued) Heart: Regular rate, Normal S1 Lungs: Clear, Other (Negative accessory muscle use; currently on 3L O2 NC ) Abdomen: Soft, No tenderness Extremities: No edema Skin: No rashes, Other (no bruising) Labs LABS Laboratory Tests Test 12/08/16 11:46 12/08/16 17:00 12/08/16 18:08 12/09/16 00:37 Glucose (Fingerstick) 243mg/dL (70-99) 263mg/dL (70-99) 209mg/dL (70-99) Urine Collection Type Unknown Urine Color Red Urine Clarity Turbid Urine pH 5.0 Urine Specific [place] 1.015 Urine Protein 100mg/dL (NEG-TRACE) Urine Glucose (UA) Negativemg/dL (NEG) Urine Ketones (Stick) Tracemg/dL (NEG) Urine Blood Large (NEG) Urine Nitrite Negative (NEG) Urine Bilirubin Moderate (NEG) Urine Urobilinogen Dipstick 0.2mg/dL (0.2 mg/dL) Urine Leukocyte Esterase Moderate (NEG) Urine RBC Tntc/HPF (0-2) Urine WBC 1-4/HPF (0-4) Urine Squamous Epithelial Cells None/LPF Urine Bacteria Few/HPF (0-FEW) Urine Mucus Slight/LPF Urine Yeast Present/HPF Test 12/09/16 05:00 12/09/16 06:06 White Blood Count 12.0x10^3/uL (4.0-11.0) Red Blood Count 2.66x10^6/uL (4.30-5.70) Hemoglobin 8.0g/dL (13.0-17.5) Hematocrit 24.2% (39.0-53.0) Mean Corpuscular Volume 91fL (79-100) Mean Corpuscular Hemoglobin 30pg (25-35) Mean Corpuscular Hemoglobin Concent 33g/dL (31-37) Red Cell Distribution Width 16.5% (11.5-14.5) Platelet Count 410x10^3/uL (140-400) Neutrophils (%) (Auto) 69% (31-73) Lymphocytes (%) (Auto) 13% (24-48) Monocytes (%) (Auto) 11% (0-9) Eosinophils (%) (Auto) 6% (0-3) Basophils (%) (Auto) 1% (0-3) Neutrophils # (Auto) 8.2x10^3uL (1.8-7.7) Lymphocytes # (Auto) 1.5x10^3/uL (1.0-4.8) Monocytes # (Auto) 1.4x10^3/uL (0.0-1.1) Eosinophils # (Auto) 0.7x10^3/uL (0.0-0.7) Basophils # (Auto) 0.1x10^3/uL (0.0-0.2) Sodium Level 145mmol/L (136-145) Potassium Level 4.5mmol/L (3.5-5.1) Chloride Level 107mmol/L (98-107) Carbon Dioxide Level 26mmol/L (21-32) Anion Gap 12 (6-14) Blood Urea Nitrogen 53mg/dL (8-26) Creatinine 1.7mg/dL (0.7-1.3) Estimated GFR (Cockcroft-Gault) 39.9 BUN/Creatinine Ratio 31 (6-20) Glucose Level 203mg/dL (70-99) Calcium Level 9.4mg/dL (8.5-10.1) Magnesium Level 2.2mg/dL (1.8-2.4) Total Bilirubin 1.5mg/dL (0.2-1.0) Aspartate Amino Transf (AST/SGOT) 38U/L (15-37) Alanine Aminotransferase (ALT/SGPT) 76U/L (16-63) Alkaline Phosphatase 229U/L (46-116) Total Protein 6.7g/dL (6.4-8.2) Albumin 2.9g/dL (3.4-5.0) Albumin/Globulin Ratio 0.8 (1.0-1.7) Glucose (Fingerstick) 165mg/dL (70-99) Review of Systems Review of Systems weak, no pain, no sleep Assessment and Plan Assessmemt and Plan Problems Medical Problems: (1) Cardiac arrest Status: Acute Problems: Comment Review of Relevant I have reviewed the following items rodolfo (where applicable) has been applied. Labs Laboratory Tests Test 12/07/16 12:50 12/07/16 17:32 12/07/16 20:20 12/07/16 23:05 Glucose (Fingerstick) 216mg/dL (70-99) 212mg/dL (70-99) 189mg/dL (70-99) 190mg/dL (70-99) Test 12/08/16 04:15 12/08/16 06:04 12/08/16 11:46 12/08/16 17:00 White Blood Count 13.0x10^3/uL (4.0-11.0) Red Blood Count 2.68x10^6/uL (4.30-5.70) Hemoglobin 8.1g/dL (13.0-17.5) Hematocrit 25.1% (39.0-53.0) Mean Corpuscular Volume 94fL (79-100) Mean Corpuscular Hemoglobin 30pg (25-35) Mean Corpuscular Hemoglobin Concent 32g/dL (31-37) Red Cell Distribution Width 17.1% (11.5-14.5) Platelet Count 408x10^3/uL (140-400) Neutrophils (%) (Auto) 70% (31-73) Lymphocytes (%) (Auto) 12% (24-48) Monocytes (%) (Auto) 12% (0-9) Eosinophils (%) (Auto) 5% (0-3) Basophils (%) (Auto) 1% (0-3) Neutrophils # (Auto) 9.1x10^3uL (1.8-7.7) Lymphocytes # (Auto) 1.6x10^3/uL (1.0-4.8) Monocytes # (Auto) 1.6x10^3/uL (0.0-1.1) Eosinophils # (Auto) 0.6x10^3/uL (0.0-0.7) Basophils # (Auto) 0.1x10^3/uL (0.0-0.2) Sodium Level 147mmol/L (136-145) Potassium Level 4.5mmol/L (3.5-5.1) Chloride Level 111mmol/L (98-107) Carbon Dioxide Level 26mmol/L (21-32) Anion Gap 10 (6-14) Blood Urea Nitrogen 48mg/dL (8-26) Creatinine 1.7mg/dL (0.7-1.3) Estimated GFR (Cockcroft-Gault) 39.9 Glucose Level 174mg/dL (70-99) Calcium Level 9.4mg/dL (8.5-10.1) Glucose (Fingerstick) 177mg/dL (70-99) 243mg/dL (70-99) Urine Collection Type Unknown Urine Color Red Urine Clarity Turbid Urine pH 5.0 Urine Specific [place] 1.015 Urine Protein 100mg/dL (NEG-TRACE) Urine Glucose (UA) Negativemg/dL (NEG) Urine Ketones (Stick) Tracemg/dL (NEG) Urine Blood Large (NEG) Urine Nitrite Negative (NEG) Urine Bilirubin Moderate (NEG) Urine Urobilinogen Dipstick 0.2mg/dL (0.2 mg/dL) Urine Leukocyte Esterase Moderate (NEG) Urine RBC Tntc/HPF (0-2) Urine WBC 1-4/HPF (0-4) Urine Squamous Epithelial Cells None/LPF Urine Bacteria Few/HPF (0-FEW) Urine Mucus Slight/LPF Urine Yeast Present/HPF Test 12/08/16 18:08 12/09/16 00:37 12/09/16 05:00 12/09/16 06:06 Glucose (Fingerstick) 263mg/dL (70-99) 209mg/dL (70-99) 165mg/dL (70-99) White Blood Count 12.0x10^3/uL (4.0-11.0) Red Blood Count 2.66x10^6/uL (4.30-5.70) Hemoglobin 8.0g/dL (13.0-17.5) Hematocrit 24.2% (39.0-53.0) Mean Corpuscular Volume 91fL (79-100) Mean Corpuscular Hemoglobin 30pg (25-35) Mean Corpuscular Hemoglobin Concent 33g/dL (31-37) Red Cell Distribution Width 16.5% (11.5-14.5) Platelet Count 410x10^3/uL (140-400) Neutrophils (%) (Auto) 69% (31-73) Lymphocytes (%) (Auto) 13% (24-48) Monocytes (%) (Auto) 11% (0-9) Eosinophils (%) (Auto) 6% (0-3) Basophils (%) (Auto) 1% (0-3) Neutrophils # (Auto) 8.2x10^3uL (1.8-7.7) Lymphocytes # (Auto) 1.5x10^3/uL (1.0-4.8) Monocytes # (Auto) 1.4x10^3/uL (0.0-1.1) Eosinophils # (Auto) 0.7x10^3/uL (0.0-0.7) Basophils # (Auto) 0.1x10^3/uL (0.0-0.2) Sodium Level 145mmol/L (136-145) Potassium Level 4.5mmol/L (3.5-5.1) Chloride Level 107mmol/L (98-107) Carbon Dioxide Level 26mmol/L (21-32) Anion Gap 12 (6-14) Blood Urea Nitrogen 53mg/dL (8-26) Creatinine 1.7mg/dL (0.7-1.3) Estimated GFR (Cockcroft-Gault) 39.9 BUN/Creatinine Ratio 31 (6-20) Glucose Level 203mg/dL (70-99) Calcium Level 9.4mg/dL (8.5-10.1) Magnesium Level 2.2mg/dL (1.8-2.4) Total Bilirubin 1.5mg/dL (0.2-1.0) Aspartate Amino Transf (AST/SGOT) 38U/L (15-37) Alanine Aminotransferase (ALT/SGPT) 76U/L (16-63) Alkaline Phosphatase 229U/L (46-116) Total Protein 6.7g/dL (6.4-8.2) Albumin 2.9g/dL (3.4-5.0) Albumin/Globulin Ratio 0.8 (1.0-1.7) Laboratory Tests Test 12/08/16 11:46 12/08/16 17:00 12/08/16 18:08 12/09/16 00:37 Glucose (Fingerstick) 243mg/dL (70-99) 263mg/dL (70-99) 209mg/dL (70-99) Urine Collection Type Unknown Urine Color Red Urine Clarity Turbid Urine pH 5.0 Urine Specific [place] 1.015 Urine Protein 100mg/dL (NEG-TRACE) Urine Glucose (UA) Negativemg/dL (NEG) Urine Ketones (Stick) Tracemg/dL (NEG) Urine Blood Large (NEG) Urine Nitrite Negative (NEG) Urine Bilirubin Moderate (NEG) Urine Urobilinogen Dipstick 0.2mg/dL (0.2 mg/dL) Urine Leukocyte Esterase Moderate (NEG) Urine RBC Tntc/HPF (0-2) Urine WBC 1-4/HPF (0-4) Urine Squamous Epithelial Cells None/LPF Urine Bacteria Few/HPF (0-FEW) Urine Mucus Slight/LPF Urine Yeast Present/HPF Test 12/09/16 05:00 12/09/16 06:06 White Blood Count 12.0x10^3/uL (4.0-11.0) Red Blood Count 2.66x10^6/uL (4.30-5.70) Hemoglobin 8.0g/dL (13.0-17.5) Hematocrit 24.2% (39.0-53.0) Mean Corpuscular Volume 91fL (79-100) Mean Corpuscular Hemoglobin 30pg (25-35) Mean Corpuscular Hemoglobin Concent 33g/dL (31-37) Red Cell Distribution Width 16.5% (11.5-14.5) Platelet Count 410x10^3/uL (140-400) Neutrophils (%) (Auto) 69% (31-73) Lymphocytes (%) (Auto) 13% (24-48) Monocytes (%) (Auto) 11% (0-9) Eosinophils (%) (Auto) 6% (0-3) Basophils (%) (Auto) 1% (0-3) Neutrophils # (Auto) 8.2x10^3uL (1.8-7.7) Lymphocytes # (Auto) 1.5x10^3/uL (1.0-4.8) Monocytes # (Auto) 1.4x10^3/uL (0.0-1.1) Eosinophils # (Auto) 0.7x10^3/uL (0.0-0.7) Basophils # (Auto) 0.1x10^3/uL (0.0-0.2) Sodium Level 145mmol/L (136-145) Potassium Level 4.5mmol/L (3.5-5.1) Chloride Level 107mmol/L (98-107) Carbon Dioxide Level 26mmol/L (21-32) Anion Gap 12 (6-14) Blood Urea Nitrogen 53mg/dL (8-26) Creatinine 1.7mg/dL (0.7-1.3) Estimated GFR (Cockcroft-Gault) 39.9 BUN/Creatinine Ratio 31 (6-20) Glucose Level 203mg/dL (70-99) Calcium Level 9.4mg/dL (8.5-10.1) Magnesium Level 2.2mg/dL (1.8-2.4) Total Bilirubin 1.5mg/dL (0.2-1.0) Aspartate Amino Transf (AST/SGOT) 38U/L (15-37) Alanine Aminotransferase (ALT/SGPT) 76U/L (16-63) Alkaline Phosphatase 229U/L (46-116) Total Protein 6.7g/dL (6.4-8.2) Albumin 2.9g/dL (3.4-5.0) Albumin/Globulin Ratio 0.8 (1.0-1.7) Glucose (Fingerstick) 165mg/dL (70-99) Microbiology 11/28/16 Blood Culture - Final, Complete NO GROWTH AFTER 5 DAYS 11/24/16 Stool Culture - Final, Complete 11/24/16 Stool Culture Result 1 (ROSIE) - Final, Complete 11/24/16 Campylobacter Antigen Assay - Final, Complete 11/24/16 Campylobactor Result 1 - Final, Complete 11/24/16 Shiga Toxin Test - Final, Complete 11/25/16 Urine Culture - Final, Complete 11/25/16 Urine Culture Result 1 (ROSIE) - Final, Complete Medications Current Medications Sodium Chloride 1,000 ml @ 1,000 mls/hr Q1H IV Last administered on 11/24/16 06:50; Start 11/24/16 at 06:50; Stop 11/24/16 at 07:49; Status DC Epinephrine HCl/ Sodium Chloride (Adrenalin/Iv Sodium Chloride 0.9% 250ml) 254 ml @ 0 mls/hr CONT PRN IV SEE I/O RECORD Last administered on 11/26/16 03:05; Start 11/24/16 at 07:30; Stop 11/27/16 at 08:25; Status DC Insulin Aspart (Novolog) 0-7 UNITS TIDWMEALS SQ ; Start 11/24/16 at 08:00; Stop 11/24/16 at 15:36; Status DC Dextrose 12.5 gm 12.5 gm PRN Q15MIN PRN IV SEE COMMENTS; Start 11/24/16 at 07: 45; Stop 11/25/16 at 23:34; Status DC Sodium Chloride (Iv Sodium Chloride 0.9% 1000ml Bag) 1,000 ml @ 125 mls/hr 1X ONCE IV Last administered on 11/24/16 07:52; Start 11/24/16 at 08:00; Stop at 08:20; Status DC Vancomycin HCl (Vanco Per Pharmacy) 1 each PRN DAILY PRN MC SEE COMMENTS Last administered on 11/24/16 11:26; Start 11/24/16 at 08:15; Stop 11/24/16 at 13:06 ; Status DC Piperacillin Sod/ Tazobactam Sod 1 each 1 each PRN DAILY PRN MC SEE COMMENTS; Start 11/24/16 at 08:15; Stop 11/24/16 at 13:06; Status DC Sodium Bicarbonate 50 meq/Sodium Chloride 1,050 ml @ 125 mls/hr Q8H24M IV Last administered on 11/26/16 11:24; Start 11/24/16 at 08:30; Stop 11/26/16 at 12:41; Status DC Vancomycin HCl 2 gm/Sodium Chloride 500 ml @ 250 mls/hr ONCE ONCE IV Last administered on 11/24/16 10:15; Start 11/24/16 at 08:30; Stop 11/24/16 at 10:29 ; Status DC Piperacillin Sod/ Tazobactam Sod 4.5 gm/Sodium Chloride 100 ml @ 200 mls/hr Q6HRS IV Last administered on 11/24/16 10:10; Start 11/24/16 at 08:30; Stop at 11:15; Status DC Sodium Chloride (Iv Sodium Chloride 0.9% 1000ml Bag) 1,000 ml @ 1,000 mls/hr Q1H IV Last administered on 11/24/16 10:09; Start 11/24/16 at 08:39; Stop at 11:47; Status DC Fentanyl Citrate (Fentanyl 2ml Vial) 25 mcg PRN Q30MIN PRN IV SED Last administered on 11/30/16 17:24; Start 11/24/16 at 08:45; Stop 12/04/16 at 06:29 ; Status DC Lorazepam 1 mg 1 mg PRN Q30MIN PRN IV SEDATION Last administered on 11/25/16 12:26; Start 11/24/16 at 08:45; Stop 11/28/16 at 19:45; Status DC Fentanyl Citrate 30 ml @ 2.5 mls/hr CONT PRN PRN IV IVF Last administered on 07:40; Start 11/24/16 at 08:45; Stop 11/26/16 at 17:49; Status DC Propofol (Diprivan) 100 ml @ 0 mls/hr CONT PRN IV SEE I/O RECORD Last administered on 11/26/16 07:38; Start 11/24/16 at 08:45; Stop 11/26/16 at 17:49 ; Status DC Vecuronium [place] (Norcuron Bolus) 9 mg PRN Q30MIN PRN IV SHIVERING Last administered on 11/24/16 17:38; Start 11/24/16 at 08:45; Stop 11/26/16 at 17:49 ; Status DC Meperidine HCl (Demerol) 12.5 mg PRN Q30MIN PRN IV SHIVERING Last administered on 11/24/16 22:21; Start 11/24/16 at 08:45; Stop 11/24/16 at 22:21; Status DC Multi-Ingred Cream/Lotion/Oil/ Oint (Artificial Tears Eye Oint) 1 radha PRN Q6HRS PRN OU 0.5 INCH FOR DRY EYE; Start 11/24/16 at 08:45 Famotidine (Pepcid) 20 mg QHS IVP Last administered on 11/27/16 21:12; Start 11/24/16 at 21:00; Stop 11/28/16 at 09:46; Status DC Aspirin (Aspirin) 300 mg DAILY TX Last administered on 12/08/16 09:59; Start at 09:00 Sodium Chloride (Normal Saline Flush) 3 ml QSHIFT PRN IV AFTER MEDS AND BLOOD DRAWS; Start 11/24/16 at 08:45 Acetaminophen (Tylenol) 650 mg Q6HRS NG ; Start 11/24/16 at 12:00; Stop at 11:59; Status DC Acetaminophen (Tylenol) 650 mg PRN Q6HRS PRN TX MILD PAIN / TEMP; Start at 08:45; Stop 11/25/16 at 23:35; Status DC Acetaminophen (Tylenol) 650 mg PRN Q6HRS PRN NG MILD PAIN / TEMP; Start at 08:45 Info 1 ea 1 ea DAILY PRN MC PER PROTOCOL; Start 11/26/16 at 08:45; Stop at 09:17; Status DC Insulin Human Regular 150 unit/ Sodium Chloride 151.5 ml @ 9.16 mls/hr CONT PRN IV SEE I/O RECORD Last administered on 11/24/16 10:13; Start 11/24/16 at 09 :30; Stop 11/27/16 at 08:25; Status DC Piperacillin Sod/ Tazobactam Sod 3.375 gm/Sodium Chloride 50 ml @ 100 mls/hr Q6HRS IV ; Start 11/24/16 at 18:00; Stop 11/24/16 at 18:00; Status DC Vancomycin HCl/ Sodium Chloride (Iv Sodium Chloride 0.9% 500ml Bag) 500 ml @ 250 mls/hr Q24H IV ; Start 11/25/16 at 10:00; Stop 11/25/16 at 10:00; Status DC Vancomycin HCl 1 each 1 each 1X ONCE MC ; Start 11/26/16 at 09:30; Stop at 09:30; Status DC Sodium Chloride (Iv Sodium Chloride 0.9% 1000ml Bag) 1,000 ml @ 1,000 mls/hr 1X ONCE IV Last administered on 11/24/16 11:00; Start 11/24/16 at 11:00; Stop 11/24/16 at 11:59; Status DC Insulin Detemir (Levemir) 12 units QHS SQ ; Start 11/24/16 at 21:00; Stop at 21:00; Status DC Insulin Aspart (Novolog) 10 units 1X ONCE SQ ; Start 11/24/16 at 15:30; Stop at 20:10; Status DC Insulin Aspart (Novolog) 0-7 UNITS Q4HRS SQ ; Start 11/24/16 at 16:00; Stop at 20:10; Status DC Heparin Sodium (Porcine) 8100 unit 8,100 unit 1X ONCE IV Last administered on 11/24/16 17:24; Start 11/24/16 at 17:00; Stop 11/24/16 at 17:01; Status DC Heparin Sodium/ Dextrose 500 ml @ 0 mls/hr CONT PRN IV SEE I/O RECORD Last administered on 11/28/16 02:06; Start 11/24/16 at 16:45; Stop 11/28/16 at 17:12 ; Status DC Heparin Sodium (Porcine) 3,000 unit PRN Q6HRS PRN IV FOR UFH LEVEL LESS THAN 0.2; Start 11/24/16 at 16:45; Stop 11/28/16 at 17:12; Status DC Heparin Sodium (Porcine) 1,500 unit PRN Q6HRS PRN IV FOR UFH LEVEL 0.2 - 0.29 Last administered on 11/26/16 12:08; Start 11/24/16 at 16:45; Stop 11/28/16 at 17:12; Status DC Info 1 each 1 each PRN DAILY PRN MC SEE COMMENTS Last administered on 10:03; Start 11/24/16 at 17:00; Stop 11/28/16 at 17:13; Status DC Piperacillin Sod/ Tazobactam Sod 3.375 gm/Sodium Chloride 50 ml @ 100 mls/hr Q6HRS IV Last administered on 12/07/16 05:21; Start 11/25/16 at 00:00; Stop 12/07/16 at 12:10; Status DC Vancomycin HCl/ Sodium Chloride (Iv Sodium Chloride 0.9% 250ml) 250 ml @ 250 mls/hr 1X ONCE IV ; Start 11/24/16 at 21:30; Stop 11/24/16 at 22:29; Status UNV Vancomycin HCl 1 each 1 each PRN DAILY PRN MC SEE COMMENTS Last administered on 11/25/16 03:30; Start 11/25/16 at 01:00; Stop 11/25/16 at 08:57; Status DC Vancomycin HCl/ Sodium Chloride (Iv Sodium Chloride 0.9% 500ml Bag) 500 ml @ 250 mls/hr Q24H IV ; Start 11/25/16 at 10:00; Stop 11/25/16 at 10:00; Status DC Vancomycin HCl 1 each 1X ONCE MC ; Start 11/26/16 at 09:30; Stop 11/26/16 at 09 :30; Status DC Enoxaparin Sodium (Lovenox Per Pharmacy Prophylaxis Dosing) 1 each PRN DAILY PRN MC SEE COMMENTS; Start 11/25/16 at 08:45; Status UNV Chlorhexidine Gluconate 15 ml 15 ml BID MM Last administered on 11/26/16 08:37 ; Start 11/25/16 at 21:00; Stop 11/26/16 at 17:49; Status DC Magnesium Sulfate/ Dextrose 50 ml @ 25 mls/hr PRN DAILY PRN IV for Mag < 1.7 on am labs Last administered on 11/26/16 05:29; Start 11/25/16 at 09:45; Stop 11/27/16 at 08:47; Status DC Magnesium Sulfate/ Dextrose 50 ml @ 25 mls/hr PRN DAILY PRN IV for Mag < 1.7 on am labs; Start 11/25/16 at 09:45; Status UNV Sodium Chloride 500 ml @ 0 mls/hr QID PRN IV UO< 30cc/hr over previous 6hrs Last administered on 11/25/16 10:54; Start 11/25/16 at 09:45; Stop 11/27/16 at 11:25; Status DC Magnesium Sulfate/ Dextrose (Magnesium Sulfate PREMIX 2GM) 50 ml @ 25 mls/hr 1X ONCE IV Last administered on 11/25/16 13:28; Start 11/25/16 at 12:30; Stop 11/25/16 at 14:29; Status DC Lidocaine/Sodium Bicarbonate 20 ml 20 ml STK-MED ONCE IJ ; Start 11/25/16 at 12: 35; Stop 11/25/16 at 12:36; Status DC Heparin Sodium/ Sodium Chloride 500 ml @ As Directed STK-MED ONCE .ROUTE ; Start 11/25/16 at 12:35; Stop 11/25/16 at 12:36; Status DC Lidocaine/Sodium Bicarbonate (Buffered Lidocaine 1%) 3 ml 1X ONCE IJ Last administered on 11/25/16 13:15; Start 11/25/16 at 13:15; Stop 11/25/16 at 13:16 ; Status DC Heparin Sodium/ Sodium Chloride 60 unit 1X ONCE IV Last administered on 13:16; Start 11/25/16 at 13:15; Stop 11/25/16 at 13:16; Status DC Amiodarone HCl (Cordarone) 450 mg STK-MED ONCE .ROUTE ; Start 11/25/16 at 12:00 ; Stop 11/25/16 at 14:56; Status DC Epinephrine HCl (Adrenalin) 30 mg STK-MED ONCE .ROUTE ; Start 11/25/16 at 12:00 ; Stop 11/25/16 at 14:56; Status DC Atropine Sulfate 1.5 mg STK-MED ONCE .ROUTE ; Start 11/25/16 at 12:00; Stop at 14:56; Status DC Epinephrine HCl 4 mg STK-MED ONCE .ROUTE ; Start 11/25/16 at 12:00; Stop at 14:56; Status DC Sodium Bicarbonate 150 meq 150 meq STK-MED ONCE .ROUTE ; Start 11/25/16 at 12:00 ; Stop 11/25/16 at 14:56; Status DC Midazolam HCl (Versed 100mg/ 100ml Premix) 100 ml @ 0 mls/hr CONT PRN IV SEE I/ O RECORD; Start 11/25/16 at 23:30; Stop 11/26/16 at 17:49; Status DC Insulin Aspart (Novolog) 0-7 UNITS TIDWMEALS SQ Last administered on 11/27/16 19:43; Start 11/26/16 at 08:00; Stop 11/28/16 at 01:01; Status DC Dextrose 12.5 gm PRN Q15MIN PRN IV SEE COMMENTS; Start 11/25/16 at 23:30; Stop 12/05/16 at 14:19; Status DC Acetaminophen 650 mg 650 mg PRN Q6HRS PRN TX MILD PAIN / TEMP Last administered on 11/28/16 04:19; Start 11/25/16 at 23:30; Stop 12/02/16 at 13:29 ; Status DC Potassium Chloride 50 ml @ 50 mls/hr Q1H IV Last administered on 11/26/16 11: 23; Start 11/26/16 at 10:30; Stop 11/26/16 at 12:29; Status DC Sodium Bicarbonate/ Sterile Water 1,100 ml @ 100 mls/hr Q11H IV Last administered on 11/27/16 00:56; Start 11/26/16 at 13:00; Stop 11/27/16 at 11:25 ; Status DC Info 1 each 1 each PRN DAILY PRN MC SEE COMMENTS Last administered on 12/08/16 13:40; Start 11/26/16 at 12:45 Calcium Chloride/ Sodium Chloride (Iv Sodium Chloride 0.9% 100ml) 120 ml @ 240 mls/hr 1X ONCE IV Last administered on 11/26/16 13:22; Start 11/26/16 at 13: 15; Stop 11/26/16 at 13:44; Status DC Ondansetron HCl 4 mg 4 mg PRN Q6HRS PRN IV NAUSEA/VOMITING Last administered on 12/03/16 21:17; Start 11/26/16 at 13:45; Stop 12/04/16 at 06:30; Status DC Sodium Chloride/ Potassium Chloride/ Magnesium Sulfate/ Calcium Gluconate/ Multivitamins/ Chromium/Copper/ Manganese/Seleni/ Zn/Total Parenteral Nutrition/ Amino Acids/Dextrose/ Fat Emulsion Intravenous (Sodium Chloride/ Infuvite Adult / Multitrace-5 Conc/ Tpn - Tpn Fluid/ Trophami... 1,594.468 ml @ 66.436 m... TPN CONT IV Last administered on 11/26/16 21:27; Start 11/26/16 at 22:00; Stop 11/27/16 at 21:59; Status DC Albuterol Sulfate 2.5 mg 2.5 mg 1X ONCE NEB Last administered on 11/27/16 07: 21; Start 11/27/16 at 06:45; Stop 11/27/16 at 06:46; Status DC Magnesium Sulfate/ Dextrose 50 ml @ 25 mls/hr PRN DAILY PRN IV for Mag < 1.7 on am labs; Start 11/27/16 at 08:45 Sodium Chloride 90 meq/Potassium Chloride 50 meq/ Magnesium Sulfate 10 meq/ Calcium Gluconate 10 meq/ Multivitamins 10 ml/Chromium/ Copper/Manganese/ Seleni /Zn 1 ml/ Total Parenteral Nutrition/Amino Acids/Dextrose/ Fat Emulsion Intravenous 1,594.468 ml @ 66.436 m... TPN CONT IV ; Start 11/27/16 at 22:00; Stop 11/28/16 at 21:59; Status Cancel Potassium Chloride/ Magnesium Sulfate/ Calcium Gluconate/ Multivitamins/ Chromium/Copper/ Manganese/Seleni/ Zn/Total Parenteral Nutrition/Amino Acids/ Dextrose/ Fat Emulsion Intravenous (Infuvite Adult/ Multitrace-5 Conc/ Tpn - Tpn Fluid/ Trophamine/ Dextrose 70%-Water Iv So... 1,512 ml @ 63 mls/hr TPN CONT IV Last administered on 11/27/16 21:22; Start 11/27/16 at 22:00; Stop at 21:59; Status DC Nitroglycerin 0.4 mg 0.4 mg STK-MED ONCE SL Last administered on 11/27/16 11: 26; Start 11/27/16 at 11:16; Stop 11/27/16 at 11:17; Status DC Albumin Human (Albuminar) 100 ml @ 100 mls/hr TID IV Last administered on 11/29 08:56; Start 11/27/16 at 12:00; Stop 11/29/16 at 09:59; Status DC Sodium Bicarbonate 50 meq 1X ONCE IV Last administered on 11/27/16 13:24; Start 11/27/16 at 12:45; Stop 11/27/16 at 12:46; Status DC Hydralazine HCl (Apresoline) 10 mg PRN Q4HRS PRN IVP ELEVATED BP, SEE COMMENTS Last administered on 12/03/16 20:18; Start 11/27/16 at 12:45 Metoprolol Tartrate (Lopressor) 5 mg Q6HRS IVP Last administered on 11/27/16 15:40; Start 11/27/16 at 15:30; Stop 11/27/16 at 19:11; Status DC Metoprolol Tartrate 5 mg 5 mg Q6HRS@04,10,16,22 IVP Last administered on 10:22; Start 11/27/16 at 22:00 Nicardipine HCl/ Sodium Chloride (Cardene/Iv Sodium Chloride 0.9% 250ml) 270 ml @ 0 mls/hr CONT PRN IV SEE I/O RECORD Last administered on 11/28/16 01:13; Start 11/27/16 at 20:45; Stop 12/05/16 at 09:17; Status DC Vancomycin HCl 1 each 1 each PRN DAILY PRN MC SEE COMMENTS Last administered on 11/27/16 21:38; Start 11/27/16 at 22:00; Stop 11/28/16 at 08:30; Status DC Vancomycin HCl 2 gm/Sodium Chloride 500 ml @ 250 mls/hr 1X ONCE IV Last administered on 11/27/16 22:57; Start 11/27/16 at 22:00; Stop 11/27/16 at 23:59 ; Status DC Vancomycin HCl/ Sodium Chloride (Iv Sodium Chloride 0.9% 500ml Bag) 500 ml @ 250 mls/hr Q24H IV ; Start 11/28/16 at 22:00; Stop 11/28/16 at 22:00; Status DC Vancomycin HCl 1 each 1X ONCE MC ; Start 11/29/16 at 21:30; Stop 11/29/16 at 21 :30; Status DC Insulin Aspart (Novolog) 0-7 UNITS Q6HRS SQ Last administered on 12/09/16 01:51 ; Start 11/28/16 at 01:00 Linezolid 600 mg 600 mg BID PO ; Start 11/28/16 at 09:00; Stop 11/28/16 at 19:45 ; Status DC Pantoprazole Sodium/Sodium Chloride (Protonix Iv/Iv Sodium Chloride 0.9% 100ml) 100 ml @ 10 mls/hr Q10H PRN IV . Last administered on 12/01/16 13:01; Start 11/28/16 at 10:00; Stop 12/01/16 at 15:59; Status DC Ipratropium [place] (Atrovent) 0.5 mg RTQID NEB Last administered on 12/08/16 19:13; Start 11/28/16 at 12:00 Budesonide (Pulmicort) 0.5 mg RTBID NEB Last administered on 12/06/16 07:36; Start 11/28/16 at 20:00; Stop 12/06/16 at 18:19; Status DC Furosemide 40 mg 40 mg 1X ONCE IVP Last administered on 11/28/16 12:15; Start 11/28/16 at 12:15; Stop 11/28/16 at 12:16; Status DC Potassium Chloride/ Magnesium Sulfate/ Calcium Gluconate/ Multivitamins/ Chromium/Copper/ Manganese/Seleni/ Zn/Total Parenteral Nutrition/Amino Acids/ Dextrose/ Fat Emulsion Intravenous (Calcium Gluconate/ Infuvite Adult/ Multitrace-5 Conc/ Tpn - Tpn Fluid/ Trophami... 1,512 ml @ 63 mls/hr TPN CONT IV Last administered on 11/28/16 21:18; Start 11/28/16 at 22:00; Stop at 21:59; Status DC Lidocaine/Sodium Bicarbonate (Buffered Lidocaine 1%) 3 ml 1X ONCE IJ Last administered on 11/28/16 15:45; Start 11/28/16 at 14:45; Stop 11/28/16 at 14:46 ; Status DC Heparin Sodium/ Sodium Chloride 60 unit 1X ONCE IV Last administered on 15:45; Start 11/28/16 at 14:45; Stop 11/28/16 at 14:46; Status DC Heparin Sodium (Porcine) 2500 unit 2,500 unit 1X ONCE INT CAT Last administered on 11/28/16 15:45; Start 11/28/16 at 14:45; Stop 11/28/16 at 14:46 ; Status DC Linezolid 300 ml @ 300 mls/hr Q12HR IV Last administered on 12/01/16 21:13; Start 11/28/16 at 21:00; Stop 12/02/16 at 08:23; Status DC Potassium Chloride/ Potassium Acetate/ Magnesium Sulfate/ Calcium Gluconate/ Multivitamins/ Chromium/Copper/ Manganese/Seleni/ Zn/Total Parenteral Nutrition/ Amino Acids/Dextrose/ Fat Emulsion Intravenous (Calcium Gluconate/ Infuvite Adult/ Multitrace-5 Conc/ Tpn - Tpn Flu... 1,512 ml @ 63 mls/hr TPN CONT IV Last administered on 11/29/16 21:54; Start 11/29/16 at 22:00; Stop 11/30/16 at 21:59; Status DC Iohexol (Omnipaque 300 Mg/ml) 100 ml STK-MED ONCE .ROUTE ; Start 11/29/16 at 09: 12; Stop 11/29/16 at 09:13; Status DC Lidocaine/Sodium Bicarbonate 20 ml 20 ml STK-MED ONCE IJ ; Start 11/29/16 at 09: 12; Stop 11/29/16 at 09:13; Status DC Heparin Sodium/ Sodium Chloride 500 ml @ As Directed STK-MED ONCE .ROUTE ; Start 11/29/16 at 09:12; Stop 11/29/16 at 09:13; Status DC Lidocaine/Sodium Bicarbonate (Buffered Lidocaine 1%) 2 ml 1X ONCE IJ Last administered on 11/29/16 10:22; Start 11/29/16 at 10:00; Stop 11/29/16 at 10:15 ; Status DC Iohexol (Omnipaque 300 Mg/ml) 30 ml 1X ONCE IART Last administered on 10:22; Start 11/29/16 at 10:00; Stop 11/29/16 at 10:15; Status DC Heparin Sodium/ Sodium Chloride 1,000 unit 1X ONCE IV Last administered on 10:21; Start 11/29/16 at 10:00; Stop 11/29/16 at 10:15; Status DC Info 1 each 1 each PRN DAILY PRN MC SEE COMMENTS; Start 11/29/16 at 10:30; Stop 12/01/16 at 10:29; Status DC Heparin Sodium/ Dextrose 500 ml @ 0 mls/hr CONT PRN IV SEE I/O RECORD; Start at 15:15; Status UNV Heparin Sodium/ Dextrose 500 ml @ 0 mls/hr CONT PRN IV SEE I/O RECORD Last administered on 12/04/16 19:23; Start 11/29/16 at 15:15; Stop 12/05/16 at 08:51 ; Status DC Nitroglycerin/ Dextrose 250 ml @ 0 mls/hr CONT PRN IV SEE I/O RECORD Last administered on 11/30/16 10:53; Start 11/30/16 at 10:45; Stop 12/05/16 at 09:17 ; Status DC Potassium Acetate/ Potassium Phosphate/ Magnesium Sulfate/ Calcium Gluconate/ Multivitamins/ Chromium/Copper/ Manganese/Seleni/ Zn/Insulin Human Regular/ Total Parenteral Nutrition/Amino Acids/Dextrose/ Fat Emulsion Intravenous ( Potassium Phosphate/Calcium Gluconate/ Infuvite Asim... 1,472.1 ml @ 63 mls/hr TPN CONT IV Last administered on 11/30/16 21:31; Start 11/30/16 at 22:00; Stop 12/01/16 at 21:21; Status DC Furosemide 40 mg 40 mg 1X ONCE IVP Last administered on 11/30/16 15:02; Start 11/30/16 at 15:00; Stop 11/30/16 at 15:01; Status DC Iron Sucrose/ Sodium Chloride (Venofer/Iv Sodium Chloride 0.9% 250ml) 275 ml @ 78.571 mls/ hr 1X ONCE IV Last administered on 12/01/16 09:58; Start at 09:00; Stop 12/01/16 at 12:29; Status DC Insulin Detemir (Levemir) 12 units QHS SQ Last administered on 12/03/16 21:28 ; Start 12/01/16 at 21:00; Stop 12/04/16 at 16:49; Status DC Info 1 each 1 each PRN DAILY PRN MC SEE COMMENTS Last administered on 12:18; Start 12/01/16 at 10:45; Stop 12/05/16 at 09:17; Status DC Potassium Acetate/ Potassium Phosphate/ Magnesium Sulfate/ Calcium Gluconate/ Multivitamins/ Chromium/Copper/ Manganese/Seleni/ Zn/Insulin Human Regular/ Total Parenteral Nutrition/Amino Acids/Dextrose/ Fat Emulsion Intravenous ( Potassium Phosphate/Calcium Gluconate/ Infuvite Asim... 1,512 ml @ 64.708 mls/ hr TPN CONT IV Last administered on 12/01/16 22:20; Start 12/01/16 at 22:00; Stop 12/02/16 at 21:21; Status DC Pantoprazole Sodium (Protonix Vial) 40 mg DAILYAC IVP Last administered on 12/04 10:37; Start 12/02/16 at 07:30; Stop 12/05/16 at 06:27; Status DC Acetaminophen 650 mg 650 mg 1X PRN PRN PO PRN prior to blood transfusion; Start 12/02/16 at 06:30; Stop 12/03/16 at 06:29; Status DC Potassium Acetate/ Potassium Phosphate/ Magnesium Sulfate/ Calcium Gluconate/ Multivitamins/ Chromium/Copper/ Manganese/Seleni/ Zn/Insulin Human Regular/ Total Parenteral Nutrition/Amino Acids/Dextrose/ Fat Emulsion Intravenous ( Potassium Phosphate/Calcium Gluconate/ Infuvite Asim... 1,512 ml @ 64.708 mls/ hr TPN CONT IV Last administered on 12/02/16 21:46; Start 12/02/16 at 22:00; Stop 12/03/16 at 21:21; Status DC Furosemide (Lasix) 40 mg DAILY IVP Last administered on 12/03/16 08:47; Start 12/02/16 at 12:30; Stop 12/04/16 at 06:30; Status DC Acetaminophen (Acetaminophen Supp) 650 mg PRN Q6HRS PRN TX MILD PAIN / TEMP; Start 12/02/16 at 13:30; Stop 12/02/16 at 13:36; Status DC Acetaminophen 650 mg 650 mg PRN Q6HRS PRN TX MILD PAIN / TEMP; Start 12/02/16 at 13:45 Potassium Acetate/ Potassium Phosphate/ Magnesium Sulfate/ Calcium Gluconate/ Multivitamins/ Chromium/Copper/ Manganese/Seleni/ Zn/Insulin Human Regular/ Total Parenteral Nutrition/Amino Acids/Dextrose/ Fat Emulsion Intravenous ( Potassium Phosphate/Calcium Gluconate/ Infuvite Asim... 1,512 ml @ 63 mls/hr TPN CONT IV Last administered on 12/03/16t 21:05; Start 12/03/16 at 22:00; Stop 12/04/16 at 21:59; Status DC Fentanyl Citrate (Fentanyl 2ml Vial) 25 mcg PRN Q30MIN PRN IV SED; Start at 06:29; Stop 12/05/16 at 09:17; Status DC Ondansetron HCl (Zofran) 4 mg PRN Q6HRS PRN IV NAUSEA/VOMITING; Start 12/04/16 at 06:30 Furosemide (Lasix) 40 mg DAILY IVP Last administered on 12/06/16t 10:20; Start 12/04/16 at 06:30; Stop 12/06/16 at 15:12; Status DC Lidocaine HCl 20 ml 20 ml STK-MED ONCE .ROUTE ; Start 12/04/16 at 07:02; Stop at 07:03; Status DC Heparin Sodium/ Sodium Chloride 1,500 ml @ As Directed STK-MED ONCE .ROUTE ; Start 12/04/16 at 07:02; Stop 12/04/16 at 07:03; Status DC Iodixanol (Visipaque 320) 100 ml STK-MED ONCE .ROUTE ; Start 12/04/16 at 07:02; Stop 12/04/16 at 07:03; Status DC Nitroglycerin (Nitroglycerin) 200 mcg STK-MED ONCE .ROUTE ; Start 12/04/16 at 07 :05; Stop 12/04/16 at 07:06; Status DC Verapamil HCl (Verapamil) 5 mg STK-MED ONCE .ROUTE ; Start 12/04/16 at 07:05; Stop 12/04/16 at 07:06; Status DC Midazolam HCl (Versed) 2 mg STK-MED ONCE .ROUTE ; Start 12/04/16 at 07:05; Stop 12/04/16 at 07:06; Status DC Fentanyl Citrate (Fentanyl 2ml Vial) 100 mcg STK-MED ONCE .ROUTE ; Start at 07:05; Stop 12/04/16 at 07:06; Status DC Heparin Sodium (Porcine) 10,000 unit STK-MED ONCE .ROUTE ; Start 12/04/16 at 07: 05; Stop 12/04/16 at 07:06; Status DC Nitroglycerin (Nitroglycerin) 200 mcg STK-MED ONCE .ROUTE ; Start 12/04/16 at 07 :17; Stop 12/04/16 at 07:18; Status DC Verapamil HCl (Verapamil) 5 mg STK-MED ONCE .ROUTE ; Start 12/04/16 at 07:18; Stop 12/04/16 at 07:19; Status DC Nitroglycerin (Nitroglycerin) 200 mcg 1X ONCE IART Last administered on 07:42; Start 12/04/16 at 07:45; Stop 12/04/16 at 07:46; Status DC Verapamil HCl (Verapamil) 2.5 mg 1X ONCE IART Last administered on 12/04/16 07:43; Start 12/04/16 at 07:45; Stop 12/04/16 at 07:46; Status DC Heparin Sodium/ Sodium Chloride 1,000 unit 1X ONCE IART Last administered on 07:43; Start 12/04/16 at 07:45; Stop 12/04/16 at 07:46; Status DC Midazolam HCl (Versed) 0.5 mg 1X ONCE IV Last administered on 12/04/16 07:44 ; Start 12/04/16 at 07:45; Stop 12/04/16 at 07:46; Status DC Fentanyl Citrate (Fentanyl 2ml Vial) 25 mcg 1X ONCE IV Last administered on 07:44; Start 12/04/16 at 07:45; Stop 12/04/16 at 07:46; Status DC Iodixanol (Visipaque 320) 100 ml 1X ONCE IART Last administered on 12/04/16 07:42; Start 12/04/16 at 07:45; Stop 12/04/16 at 07:46; Status DC Lidocaine HCl 20 ml 1X ONCE IJ Last administered on 12/04/16 07:43; Start at 07:45; Stop 12/04/16 at 07:46; Status DC Info 1 each 1 each PRN DAILY PRN MC SEE COMMENTS; Start 12/04/16 at 07:45; Stop 12/06/16 at 07:44; Status DC Potassium Acetate/ Potassium Phosphate/ Magnesium Sulfate/ Calcium Gluconate/ Multivitamins/ Chromium/Copper/ Manganese/Seleni/ Zn/Insulin Human Regular/ Total Parenteral Nutrition/Amino Acids/Dextrose/ Fat Emulsion Intravenous ( Potassium Phosphate/Calcium Gluconate/ Infuvite Asim... 1,512 ml @ 63 mls/hr TPN CONT IV Last administered on 12/04/16 22:47; Start 12/04/16 at 22:00; Stop 12/05/16 at 21:59; Status DC Lidocaine HCl 20 ml 20 ml STK-MED ONCE .ROUTE ; Start 12/04/16 at 12:59; Stop at 13:00; Status DC Heparin Sodium/ Sodium Chloride 1,000 ml @ As Directed STK-MED ONCE .ROUTE ; Start 12/04/16 at 12:59; Stop 12/05/16 at 08:51; Status DC Iodixanol (Visipaque 320) 100 ml STK-MED ONCE .ROUTE ; Start 12/04/16 at 12:59; Stop 12/04/16 at 13:00; Status DC Insulin Detemir (Levemir) 25 units QHS SQ ; Start 12/04/16 at 21:00; Stop at 21:00; Status DC Insulin Detemir (Levemir) 20 units QHS SQ Last administered on 12/08/16 21:22; Start 12/04/16 at 21:00 Morphine Sulfate 2 mg PRN Q2HR PRN IV PAIN Last administered on 12/04/16 19:20 ; Start 12/04/16 at 19:15 Morphine Sulfate 4 mg PRN Q2HR PRN IV PAIN; Start 12/04/16 at 19:15; Stop 12/05 at 09:17; Status DC Pantoprazole Sodium (Protonix Vial) 40 mg DAILYAC IVP Last administered on 10:23; Start 12/05/16 at 06:27 Verapamil HCl (Verapamil) 5 mg STK-MED ONCE .ROUTE ; Start 12/04/16 at 07:30; Stop 12/05/16 at 08:38; Status DC Enoxaparin Sodium (Lovenox Per Pharmacy Treatment Dosing) 1 each PRN DAILY PRN MC SEE COMMENTS; Start 12/05/16 at 09:00 Enoxaparin Sodium (Lovenox 100mg Syringe) 100 mg Q12HR SQ Last administered on 12/09/16 11:05; Start 12/05/16 at 09:00 Info 1 each 1 each PRN DAILY PRN MC SEE COMMENTS Last administered on 12/07/16 12:19; Start 12/05/16 at 10:15 Potassium Acetate/ Potassium Phosphate/ Magnesium Sulfate/ Calcium Gluconate/ Multivitamins/ Chromium/Copper/ Manganese/Seleni/ Zn/Insulin Human Regular/ Total Parenteral Nutrition/Amino Acids/Dextrose/ Fat Emulsion Intravenous ( Potassium Phosphate/Calcium Gluconate/ Infuvite Asim... 1,512 ml @ 63 mls/hr TPN CONT IV Last administered on 12/05/16 21:14; Start 12/05/16 at 22:00; Stop 12/06/16 at 21:59; Status DC Barium Sulfate (Varibar Thin Liquid Apple) 148 gm 1X ONCE PO Last administered on 12/05/16 13:56; Start 12/05/16 at 14:00; Stop 12/05/16 at 14:01 ; Status DC Dextrose 12.5 gm 12.5 gm PRN Q15MIN PRN IV SEE COMMENTS; Start 12/05/16 at 14: 19 Potassium Acetate/ Potassium Phosphate/ Magnesium Sulfate/ Calcium Gluconate/ Multivitamins/ Chromium/Copper/ Manganese/Seleni/ Zn/Insulin Human Regular/ Total Parenteral Nutrition/Amino Acids/Dextrose/ Fat Emulsion Intravenous ( Potassium Phosphate/Calcium Gluconate/ Infuvite Asim... 1,512 ml @ 63 mls/hr TPN CONT IV Last administered on 12/06/16 20:49; Start 12/06/16 at 22:00; Stop 12/07/16 at 21:59; Status DC Furosemide 20 mg 20 mg DAILY IVP Last administered on 12/08/16 08:37; Start 12/07/16 at 09:00; Stop 12/08/16 at 09:24; Status DC Potassium Acetate/ Potassium Phosphate/ Magnesium Sulfate/ Calcium Gluconate/ Multivitamins/ Chromium/Copper/ Manganese/Seleni/ Zn/Insulin Human Regular/ Total Parenteral Nutrition/Amino Acids/Dextrose/ Fat Emulsion Intravenous ( Potassium Phosphate/Calcium Gluconate/ Infuvite Asim... 1,512 ml @ 63 mls/hr TPN CONT IV Last administered on 12/07/16 20:23; Start 12/07/16 at 22:00; Stop 12/08/16 at 21:59; Status DC Lorazepam 0.5 mg 0.5 mg PRN Q6HRS PRN IV ANXIETY / AGITATION Last administered on 12/08/16 21:17; Start 12/07/16 at 16:30 Dextrose 1,000 ml @ 100 mls/hr Q10H IV Last administered on 12/08/16 09:59; Start 12/08/16 at 09:30; Stop 12/08/16 at 19:29; Status DC Potassium Acetate/ Potassium Phosphate/ Magnesium Sulfate/ Calcium Gluconate/ Multivitamins/ Chromium/Copper/ Manganese/Seleni/ Zn/Insulin Human Regular/ Total Parenteral Nutrition/Amino Acids/Dextrose/ Fat Emulsion Intravenous ( Potassium Phosphate/Calcium Gluconate/ Infuvite Asim... 2,400 ml @ 100 mls/hr TPN CONT IV Last administered on 12/08/16 21:20; Start 12/08/16 at 22:00; Stop 12/09/16 at 21:59 Vitals/I & O Vital Sign - Last 24 Hours 12/08/16 12/08/16 12/08/16 12/08/16 11:19 11:39 12:31 15:03 Temp 97.7 97.5 97.7 97.5 Pulse 104 104 99 Resp 20 B/P 136/80 136/80 145/70 Pulse Ox 96 100 O2 Delivery Nasal Cannula Nasal Cannula O2 Flow Rate 2.0 2.0 2.0 12/08/16 12/08/16 12/08/16 12/08/16 16:36 16:42 19:10 19:14 Temp 98.6 98.6 Pulse 99 92 Resp 20 B/P 145/70 158/87 Pulse Ox 97 98 O2 Delivery Nasal Cannula O2 Flow Rate 2.0 2.0 2.0 12/08/16 12/08/16 12/08/16 12/09/16 20:15 21:18 23:18 03:21 Temp 98.3 97.5 98.3 97.5 Pulse 92 89 94 Resp 20 18 B/P 158/87 140/73 150/83 Pulse Ox 95 96 O2 Delivery Nasal Cannula Nasal Cannula Nasal Cannula O2 Flow Rate 2.0 2.0 2.0 12/09/16 12/09/16 12/09/16 12/09/16 04:47 07:00 08:00 10:22 Temp 97.7 97.7 Pulse 94 96 96 Resp 20 B/P 150/83 147/75 147/75 Pulse Ox 97 O2 Delivery Nasal Cannula Nasal Cannula O2 Flow Rate 2.0 12/09/16 10:29 Temp 97.8 97.8 Pulse 95 Resp 22 B/P 158/77 Pulse Ox 95 O2 Delivery Nasal Cannula Intake and Output 12/08/16 12/08/16 12/09/16 15:00 23:00 07:00 Intake Total 1372.5 ml 0 ml Output Total 750 ml 550 ml 950 ml Balance -750 ml 822.5 ml -950 ml EVELYNE ANTONIO MD Dec 09, 2016 11:21
[2016-12-09] MEDS ORDERED: TEMAZEPAM 15 MG CAPSULE PO PRN (11:30)
--- NOTE | 2016-12-09 11:54 | PDOC ---
SUBJECTIVE ROS [place]/ ? CKD III doing OK, very weak overall. he had Urinrary retention and brown was repalced CVS: no Orthopnea, no CP RESP: no SOB, no ZARATE GI: no Nausea, no Vomiting : no Dysuria, + Urgency ( earlier) - now dark discolored urine OBJECTIVE Vital Signs Vital Signs Date Time Temp Pulse Resp B/P Pulse Ox O2 Delivery O2 Flow Rate FiO2 12/09/16 10:29 97.8 95 22 158/77 95 Nasal Cannula 97.8 12/09/16 08:00 2.0 I & 0 Intake and Output 12/09/16 07:00 Intake Total 1372.5 ml Output Total 2250 ml Balance -877.5 ml Intake Oral 0 ml IV Total 1372.5 ml Output Urine Total 2250 ml # Bowel Movements 1 PHYSICAL EXAM Physical Exam General Appearance: AAO x 3 In no Distress; lying almost flat in bed Eyes: VIsion Unchanged Conjunctiva Normal EN: No EN Drainage Mucous Memb. dry (NPO) Neck: no JVD no JVP Supple no Thyromegaly CVS: S1 S2 no audible Murmur No Gallop No Rub no Edema Resp: no Rales no Rhonchi no Acc. Muscle use GI: BS +ve NO Bruit Non Tender Non Distended : no CVA tenderness; no Suprapubic Tenderness Assessment & Plan [place]: cannot R/o ATN. Creat is stable today, Reval after Urinary retention episode ? CKD - Will await a new baseline, Is this his new baseline ^Na - better after 1L D5W and adding water to TPN Pulm Edema on previous CXR - will hold lasix due to dry mouth, ^ed Thirst and adequate Resp status. Recheck CXR noted. Will request Pulm eval for same. Nutrition - TPN ongoing fo rnow Cmyopathy - LHC rel WNL, ? non-ischemic anemia - D/c EPO for now since hgb is better (karla given previous ? Spontaneous DVTs) Urinray retention - URO consulted, Bl flushes for now, ? Need for CBI will be deferred to URO COMMENT/RELEVANT DATA Meds Current Medications Medications (Trade) Dose Ordered Sig/Kika Start Time Stop Time Status Last Admin Dose Admin Acetaminophen (Acetaminophen Supp) 650 mg PRN Q6HRS PRN 12/02/16 13:45 Acetaminophen (Tylenol) 650 mg 1X PRN PRN 12/02/16 06:30 12/03/16 06:29 DC Acetaminophen 650 mg 650 mg PRN Q6HRS PRN 11/25/16 23:30 12/02/16 13:29 DC 11/28/16 04:19 650 MG Albumin Human (Albuminar) 100 ml @ 100 mls/hr TID 11/27/16 12:00 11/29/16 09:59 DC 11/29/16 08:56 100 MLS/HR Albuterol Sulfate 2.5 mg 2.5 mg 1X ONCE 11/27/16 06:45 11/27/16 06:46 DC 11/27/16 07:21 2.5 MG Amiodarone HCl (Cordarone) 450 mg STK-MED ONCE 11/25/16 12:00 11/25/16 14:56 DC Aspirin (Aspirin) 300 mg DAILY 11/24/16 09:00 12/08/16 09:59 300 MG Atropine Sulfate 1.5 mg STK-MED ONCE 11/25/16 12:00 11/25/16 14:56 DC Barium Sulfate (Varibar Thin Liquid [place]) 148 gm 1X ONCE 12/05/16 14:00 12/05/16 14:01 DC 12/05/16 13:56 148 GM Budesonide 0.5 mg 0.5 mg RTBID 11/28/16 20:00 12/06/16 18:19 DC 12/06/16 07:36 0.5 MG Calcium Chloride/ Sodium Chloride (Iv Sodium Chloride 0.9% 100ml) 120 ml @ 240 mls/hr 1X ONCE 11/26/16 13:15 11/26/16 13:44 DC 11/26/16 13:22 240 MLS/HR Chlorhexidine Gluconate 15 ml 15 ml BID 11/25/16 21:00 11/26/16 17:49 DC 11/26/16 08:37 15 ML Dextrose 1,000 ml @ 100 mls/hr Q10H 12/08/16 09:30 12/08/16 19:29 DC 12/08/16 09:59 100 MLS/HR Dextrose (Dextrose 50%-Water Syringe) 12.5 gm PRN Q15MIN PRN 12/05/16 14:19 Enoxaparin Sodium (Lovenox 100mg Syringe) 100 mg Q12HR 12/05/16 09:00 12/09/16 11:05 100 MG Enoxaparin Sodium (Lovenox Per Pharmacy Prophylaxis Dosing) 1 each PRN DAILY PRN 11/25/16 08:45 UNV Enoxaparin Sodium (Lovenox Per Pharmacy Treatment Dosing) 1 each PRN DAILY PRN 12/05/16 09:00 Epinephrine HCl 4 mg STK-MED ONCE 11/25/16 12:00 11/25/16 14:56 DC Epinephrine HCl (Adrenalin) 30 mg STK-MED ONCE 11/25/16 12:00 11/25/16 14:56 DC Epinephrine HCl/ Sodium Chloride (Adrenalin/Iv Sodium Chloride 0.9% 250ml) 254 ml @ 0 mls/hr CONT PRN 11/24/16 07:30 11/27/16 08:25 DC 11/26/16 03:05 11.43 MLS/HR Famotidine (Pepcid) 20 mg QHS 11/24/16 21:00 11/28/16 09:46 DC 11/27/16 21:12 20 MG Fentanyl Citrate (Fentanyl 2ml Vial) 25 mcg 1X ONCE 12/04/16 07:45 12/04/16 07:46 DC 12/04/16 07:44 25 MCG Furosemide (Lasix) 20 mg DAILY 12/07/16 09:00 12/08/16 09:24 DC 12/08/16 08:37 20 MG Furosemide 40 mg 40 mg 1X ONCE 11/30/16 15:00 11/30/16 15:01 DC 11/30/16 15:02 40 MG Heparin Sodium (Porcine) 10,000 unit STK-MED ONCE 12/04/16 07:05 12/04/16 07:06 DC Heparin Sodium (Porcine) 1500 unit 1,500 unit PRN Q6HRS PRN 11/24/16 16:45 11/28/16 17:12 DC 11/26/16 12:08 1,500 UNIT Heparin Sodium (Porcine) 2500 unit 2,500 unit 1X ONCE 11/28/16 14:45 11/28/16 14:46 DC 11/28/16 15:45 2,500 UNIT Heparin Sodium/ Dextrose 500 ml @ 0 mls/hr CONT PRN 11/29/16 15:15 12/05/16 08:51 DC 12/04/16 19:23 0 MLS/HR Heparin Sodium/ Sodium Chloride 1,000 ml @ As Directed STK-MED ONCE 12/04/16 12:59 12/05/16 08:51 DC Hydralazine HCl (Apresoline) 10 mg PRN Q4HRS PRN 11/27/16 12:45 12/03/16 20:18 10 MG Info (Anti-Coagulation Monitoring By Pharmacy) 1 each PRN DAILY PRN 12/05/16 10:15 12/07/16 12:19 1 EACH Info (Do NOT chart on this entry -- for MONITORING) 1 each PRN DAILY PRN 12/04/16 07:45 12/06/16 07:44 DC Info 1 ea 1 ea DAILY PRN 11/26/16 08:45 12/05/16 09:17 DC Info 1 each 1 each PRN DAILY PRN 11/29/16 10:30 12/01/16 10:29 DC Insulin Aspart (Novolog) 0-7 UNITS Q6HRS 11/28/16 01:00 12/09/16 01:51 4 UNITS Insulin Detemir (Levemir) 20 units QHS 12/04/16 21:00 12/08/16 21:22 20 UNITS Insulin Human Regular 150 unit/ Sodium Chloride 151.5 ml @ 9.16 mls/hr CONT PRN 11/24/16 09:30 11/27/16 08:25 DC 11/24/16 10:13 3.4 MLS/HR Iodixanol (Visipaque 320) 100 ml STK-MED ONCE 12/04/16 12:59 12/04/16 13:00 DC Iohexol (Omnipaque 300 Mg/ml) 30 ml 1X ONCE 11/29/16 10:00 11/29/16 10:15 DC 11/29/16 10:22 30 ML Ipratropium [place] (Atrovent) 0.5 mg RTQID 11/28/16 12:00 12/08/16 19:13 0.5 MG Iron Sucrose/ Sodium Chloride (Venofer/Iv Sodium Chloride 0.9% 250ml) 275 ml @ 78.571 mls/ hr 1X ONCE 12/01/16 09:00 12/01/16 12:29 DC 12/01/16 09:58 78.571 MLS/HR Lidocaine HCl 20 ml 1X ONCE 12/04/16 07:45 12/04/16 07:46 DC 12/04/16 07:43 20 ML Lidocaine HCl 20 ml 20 ml STK-MED ONCE 12/04/16 12:59 12/04/16 13:00 DC Lidocaine/Sodium Bicarbonate (Buffered Lidocaine 1%) 2 ml 1X ONCE 11/29/16 10:00 11/29/16 10:15 DC 11/29/16 10:22 2 ML Linezolid 300 ml @ 300 mls/hr Q12HR 11/28/16 21:00 12/02/16 08:23 DC 12/01/16 21:13 300 MLS/HR Linezolid 600 mg 600 mg BID 11/28/16 09:00 11/28/16 19:45 DC Lorazepam 0.5 mg 0.5 mg PRN Q6HRS PRN 12/07/16 16:30 12/08/16 21:17 0.5 MG Lorazepam 1 mg 1 mg PRN Q30MIN PRN 11/24/16 08:45 11/28/16 19:45 DC 11/25/16 12:26 1 MG Magnesium Sulfate/ Dextrose 50 ml @ 25 mls/hr PRN DAILY PRN 11/27/16 08:45 Magnesium Sulfate/ Dextrose (Magnesium Sulfate PREMIX 2GM) 50 ml @ 25 mls/hr 1X ONCE 11/25/16 12:30 11/25/16 14:29 DC 11/25/16 13:28 25 MLS/HR Meperidine HCl (Demerol) 12.5 mg PRN Q30MIN PRN 11/24/16 08:45 11/24/16 22:21 DC 11/24/16 22:21 12.5 MG Metoprolol Tartrate (Lopressor) 5 mg Q6HRS 11/27/16 15:30 11/27/16 19:11 DC 11/27/16 15:40 5 MG Metoprolol Tartrate 5 mg 5 mg Q6HRS@04,10,16,22 11/27/16 22:00 12/09/16 10:22 5 MG Midazolam HCl (Versed 100mg/ 100ml Premix) 100 ml @ 0 mls/hr CONT PRN 11/25/16 23:30 11/26/16 17:49 DC Midazolam HCl (Versed) 0.5 mg 1X ONCE 12/04/16 07:45 12/04/16 07:46 DC 12/04/16 07:44 0.5 MG Morphine Sulfate 4 mg PRN Q2HR PRN 12/04/16 19:15 12/05/16 09:17 DC Multi-Ingred Cream/Lotion/Oil/ Oint (Artificial Tears Eye Oint) 1 radha PRN Q6HRS PRN 11/24/16 08:45 Nicardipine HCl/ Sodium Chloride (Cardene/Iv Sodium Chloride 0.9% 250ml) 270 ml @ 0 mls/hr CONT PRN 11/27/16 20:45 12/05/16 09:17 DC 11/28/16 01:13 81 MLS/HR Nitroglycerin (Nitroglycerin) 200 mcg 1X ONCE 12/04/16 07:45 12/04/16 07:46 DC 12/04/16 07:42 200 MCG Nitroglycerin 0.4 mg 0.4 mg STK-MED ONCE 11/27/16 11:16 11/27/16 11:17 DC 11/27/16 11:26 0.4 MG Nitroglycerin/ Dextrose (Nitroglycerin Drip) 250 ml @ 0 mls/hr CONT PRN 11/30/16 10:45 12/05/16 09:17 DC 11/30/16 10:53 7.5 MLS/HR Ondansetron HCl (Zofran) 4 mg PRN Q6HRS PRN 12/04/16 06:30 Ondansetron HCl 4 mg 4 mg PRN Q6HRS PRN 11/26/16 13:45 12/04/16 06:30 DC 12/03/16 21:17 4 MG Pantoprazole Sodium (Protonix Vial) 40 mg DAILYAC 12/05/16 06:27 12/09/16 10:23 40 MG Pantoprazole Sodium/Sodium Chloride (Protonix Iv/Iv Sodium Chloride 0.9% 100ml) 100 ml @ 10 mls/hr Q10H PRN 11/28/16 10:00 12/01/16 15:59 DC 12/01/16 13:01 10 MLS/HR Piperacillin Sod/ Tazobactam Sod 3.375 gm/Sodium Chloride 50 ml @ 100 mls/hr Q6HRS 11/25/16 00:00 12/07/16 12:10 DC 12/07/16 05:21 100 MLS/HR Piperacillin Sod/ Tazobactam Sod 1 each 1 each PRN DAILY PRN 11/24/16 08:15 11/24/16 13:06 DC Piperacillin Sod/ Tazobactam Sod/ Sodium Chloride (Zosyn/Iv Sodium Chloride 0.9% 100ml) 100 ml @ 200 mls/hr Q6HRS 11/24/16 08:30 11/24/16 11:15 DC 11/24/16 10:10 200 MLS/HR Potassium Chloride/ Magnesium Sulfate/ Calcium Gluconate/ Multivitamins/ Chromium/Copper/ Manganese/Seleni/ Zn/Total Parenteral Nutrition/Amino Acids/Dextrose/ Fat Emulsion Intravenous (Calcium Gluconate/ Infuvite Adult/ Multitrace-5 Conc/ Tpn - Tpn Fluid/ Trophami... 1,512 ml @ 63 mls/hr TPN CONT 11/28/16 22:00 11/29/16 21:59 DC 11/28/16 21:18 63 MLS/HR Potassium Chloride/ Magnesium Sulfate/ Calcium Gluconate/ Multivitamins/ Chromium/Copper/ Manganese/Seleni/ Zn/Total Parenteral Nutrition/Amino Acids/Dextrose/ Fat Emulsion Intravenous (Infuvite Adult/ Multitrace-5 Conc/ Tpn - Tpn Fluid/ Trophamine/ Dextrose 70%-Water Iv So... 1,512 ml @ 63 mls/hr TPN CONT 11/27/16 22:00 11/28/16 21:59 DC 11/27/16 21:22 63 MLS/HR Potassium Chloride/ Potassium Acetate/ Magnesium Sulfate/ Calcium Gluconate/ Multivitamins/ Chromium/Copper/ Manganese/Seleni/ Zn/Total Parenteral Nutrition/Amino Acids/Dextrose/ Fat Emulsion Intravenous (Calcium Gluconate/ Infuvite Adult/ Multitrace-5 Conc/ Tpn - Tpn Flu... 1,512 ml @ 63 mls/hr TPN CONT 11/29/16 22:00 11/30/16 21:59 DC 11/29/16 21:54 63 MLS/HR Potassium Acetate/ Potassium Phosphate/ Magnesium Sulfate/ Calcium Gluconate/ Multivitamins/ Chromium/Copper/ Manganese/Seleni/ Zn/Insulin Human Regular/Total Parenteral Nutrition/Amino Acids/Dextrose/ Fat Emulsion Intravenous (Potassium Phosphate/Calcium Gluconate/ Infuvite Asim... 2,400 ml @ 100 mls/hr TPN CONT 12/08/16 22:00 12/09/16 21:59 12/08/16 21:20 100 MLS/HR Potassium Chloride 50 ml @ 50 mls/hr Q1H 11/26/16 10:30 11/26/16 12:29 DC 11/26/16 11:23 50 MLS/HR Propofol (Diprivan) 100 ml @ 0 mls/hr CONT PRN 11/24/16 08:45 11/26/16 17:49 DC 11/26/16 07:38 5.5 MLS/HR Sodium Bicarbonate 100 meq/Sterile Water 1,100 ml @ 100 mls/hr Q11H 11/26/16 13:00 11/27/16 11:25 DC 11/27/16 00:56 100 MLS/HR Sodium Bicarbonate 150 meq 150 meq STK-MED ONCE 11/25/16 12:00 11/25/16 14:56 DC Sodium Bicarbonate 50 meq/Sodium Chloride 1,050 ml @ 125 mls/hr Q8H24M 11/24/16 08:30 11/26/16 12:41 DC 11/26/16 11:24 125 MLS/HR Sodium Bicarbonate 50 meq 1X ONCE 11/27/16 12:45 11/27/16 12:46 DC 11/27/16 13:24 50 MEQ Sodium Chloride (Iv Sodium Chloride 0.9% 1000ml Bag) 1,000 ml @ 1,000 mls/hr 1X ONCE 11/24/16 11:00 11/24/16 11:59 DC 11/24/16 11:00 1,000 MLS/HR Sodium Chloride (Normal Saline Flush) 3 ml QSHIFT PRN 11/24/16 08:45 Sodium Chloride 90 meq/Potassium Chloride 50 meq/ Magnesium Sulfate 10 meq/Calcium Gluconate 10 meq/ Multivitamins 10 ml/Chromium/ Copper/Manganese/ Seleni/Zn 1 ml/ Total Parenteral Nutrition/Amino Acids/Dextrose/ Fat Emulsion Intravenous 1,594.468 ml @ 66.436 m... TPN CONT 11/27/16 22:00 11/28/16 21:59 Cancel Sodium Chloride/ Potassium Chloride/ Magnesium Sulfate/ Calcium Gluconate/ Multivitamins/ Chromium/Copper/ Manganese/Seleni/ Zn/Total Parenteral Nutrition/Amino Acids/Dextrose/ Fat Emulsion Intravenous (Sodium Chloride/ Infuvite Adult/ Multitrace-5 Conc/ Tpn - Tpn Fluid/ Trophami... 1,594.468 ml @ 66.436 m... TPN CONT 11/26/16 22:00 11/27/16 21:59 DC 11/26/16 21:27 66.436 MLS/HR Temazepam (Restoril) 15 mg PRN QHS PRN 12/09/16 11:30 Vancomycin HCl 1 each 1X ONCE 11/29/16 21:30 11/29/16 21:30 DC Vancomycin HCl (Vanco Per Pharmacy) 1 each PRN DAILY PRN 11/25/16 01:00 11/25/16 08:57 DC 11/25/16 03:30 1 EACH Vancomycin HCl 1.5 gm/Sodium Chloride 500 ml @ 250 mls/hr Q24H 11/25/16 10:00 11/25/16 10:00 DC Vancomycin HCl 1 each 1 each PRN DAILY PRN 11/27/16 22:00 11/28/16 08:30 DC 11/27/16 21:38 1 EACH Vancomycin HCl 2 gm/Sodium Chloride 500 ml @ 250 mls/hr 1X ONCE 11/27/16 22:00 11/27/16 23:59 DC 11/27/16 22:57 250 MLS/HR Vancomycin HCl/ Sodium Chloride (Iv Sodium Chloride 0.9% 250ml) 250 ml @ 250 mls/hr 1X ONCE 11/24/16 21:30 11/24/16 22:29 UNV Vancomycin HCl/ Sodium Chloride (Iv Sodium Chloride 0.9% 500ml Bag) 500 ml @ 250 mls/hr Q24H 11/28/16 22:00 11/28/16 22:00 DC Vecuronium [place] (Norcuron Bolus) 9 mg PRN Q30MIN PRN 11/24/16 08:45 11/26/16 17:49 DC 11/24/16 17:38 9 MG Verapamil HCl (Verapamil) 5 mg STK-MED ONCE 12/04/16 07:30 12/05/16 08:38 DC Lab Laboratory Tests Test 12/08/16 17:00 4/3/17 18:08 12/09/16 00:37 12/09/16 05:00 Urine Collection Type Unknown Urine Color Red Urine Clarity Turbid Urine pH 5.0 Urine Specific [place] 1.015 Urine Protein 100mg/dL (NEG-TRACE) Urine Glucose (UA) Negativemg/dL (NEG) Urine Ketones (Stick) Tracemg/dL (NEG) Urine Blood Large (NEG) Urine Nitrite Negative (NEG) Urine Bilirubin Moderate (NEG) Urine Urobilinogen Dipstick 0.2mg/dL (0.2 mg/dL) Urine Leukocyte Esterase Moderate (NEG) Urine RBC Tntc/HPF (0-2) Urine WBC 1-4/HPF (0-4) Urine Squamous Epithelial Cells None/LPF Urine Bacteria Few/HPF (0-FEW) Urine Mucus Slight/LPF Urine Yeast Present/HPF Glucose (Fingerstick) 263mg/dL (70-99) 209mg/dL (70-99) White Blood Count 12.0x10^3/uL (4.0-11.0) Red Blood Count 2.66x10^6/uL (4.30-5.70) Hemoglobin 8.0g/dL (13.0-17.5) Hematocrit 24.2% (39.0-53.0) Mean Corpuscular Volume 91fL (79-100) Mean Corpuscular Hemoglobin 30pg (25-35) Mean Corpuscular Hemoglobin Concent 33g/dL (31-37) Red Cell Distribution Width 16.5% (11.5-14.5) Platelet Count 410x10^3/uL (140-400) Neutrophils (%) (Auto) 69% (31-73) Lymphocytes (%) (Auto) 13% (24-48) Monocytes (%) (Auto) 11% (0-9) Eosinophils (%) (Auto) 6% (0-3) Basophils (%) (Auto) 1% (0-3) Neutrophils # (Auto) 8.2x10^3uL (1.8-7.7) Lymphocytes # (Auto) 1.5x10^3/uL (1.0-4.8) Monocytes # (Auto) 1.4x10^3/uL (0.0-1.1) Eosinophils # (Auto) 0.7x10^3/uL (0.0-0.7) Basophils # (Auto) 0.1x10^3/uL (0.0-0.2) Sodium Level 145mmol/L (136-145) Potassium Level 4.5mmol/L (3.5-5.1) Chloride Level 107mmol/L (98-107) Carbon Dioxide Level 26mmol/L (21-32) Anion Gap 12 (6-14) Blood Urea Nitrogen 53mg/dL (8-26) Creatinine 1.7mg/dL (0.7-1.3) Estimated GFR (Cockcroft-Gault) 39.9 BUN/Creatinine Ratio 31 (6-20) Glucose Level 203mg/dL (70-99) Calcium Level 9.4mg/dL (8.5-10.1) Magnesium Level 2.2mg/dL (1.8-2.4) Total Bilirubin 1.5mg/dL (0.2-1.0) Aspartate Amino Transf (AST/SGOT) 38U/L (15-37) Alanine Aminotransferase (ALT/SGPT) 76U/L (16-63) Alkaline Phosphatase 229U/L (46-116) Total Protein 6.7g/dL (6.4-8.2) Albumin 2.9g/dL (3.4-5.0) Albumin/Globulin Ratio 0.8 (1.0-1.7) Test 12/09/16 06:06 Glucose (Fingerstick) 165mg/dL (70-99) ASHLEY DIAMOND MD Dec 09, 2016 11:54
[2016-12-09] MEDS: IPRATROPIUM BROMIDE 0.5 MG/2.5 ML NEBU. NEB SCH ×3 (12:23→19:21)
--- NOTE | 2016-12-09 12:57 | PDOC ---
PULMONARY PROGRESS NOTES Subjective no soa Vitals Vital Signs Date Time Temp Pulse Resp B/P Pulse Ox O2 Delivery O2 Flow Rate FiO2 12/09/16 12:23 2.0 12/09/16 10:29 97.8 95 22 158/77 95 Nasal Cannula 97.8 Comments ros as mentioned as above. discussed w rn, other sys otherwise neg ROS: No Nausea, No Abdominal Pain General: Alert, No acute distress HEENT: Other (nc at, perrl, nose clear, shallow oropharynx. neck, + jvd, no thyromegaly, no lap) Lungs: Other (decrease bs) Cardiovascular: S1, S2 Abdomen: Soft, Non-tender, Other (no mass) Neuro Exam: Alert Extremities: Other (2=edema) Skin: Warm Labs Laboratory Tests Test 12/07/16 17:32 12/07/16 20:20 12/07/16 23:05 12/08/16 04:15 Glucose (Fingerstick) 212mg/dL (70-99) 189mg/dL (70-99) 190mg/dL (70-99) White Blood Count 13.0x10^3/uL (4.0-11.0) Red Blood Count 2.68x10^6/uL (4.30-5.70) Hemoglobin 8.1g/dL (13.0-17.5) Hematocrit 25.1% (39.0-53.0) Mean Corpuscular Volume 94fL (79-100) Mean Corpuscular Hemoglobin 30pg (25-35) Mean Corpuscular Hemoglobin Concent 32g/dL (31-37) Red Cell Distribution Width 17.1% (11.5-14.5) Platelet Count 408x10^3/uL (140-400) Neutrophils (%) (Auto) 70% (31-73) Lymphocytes (%) (Auto) 12% (24-48) Monocytes (%) (Auto) 12% (0-9) Eosinophils (%) (Auto) 5% (0-3) Basophils (%) (Auto) 1% (0-3) Neutrophils # (Auto) 9.1x10^3uL (1.8-7.7) Lymphocytes # (Auto) 1.6x10^3/uL (1.0-4.8) Monocytes # (Auto) 1.6x10^3/uL (0.0-1.1) Eosinophils # (Auto) 0.6x10^3/uL (0.0-0.7) Basophils # (Auto) 0.1x10^3/uL (0.0-0.2) Sodium Level 147mmol/L (136-145) Potassium Level 4.5mmol/L (3.5-5.1) Chloride Level 111mmol/L (98-107) Carbon Dioxide Level 26mmol/L (21-32) Anion Gap 10 (6-14) Blood Urea Nitrogen 48mg/dL (8-26) Creatinine 1.7mg/dL (0.7-1.3) Estimated GFR (Cockcroft-Gault) 39.9 Glucose Level 174mg/dL (70-99) Calcium Level 9.4mg/dL (8.5-10.1) Test 12/08/16 06:04 12/08/16 11:46 12/08/16 17:00 12/08/16 18:08 Glucose (Fingerstick) 177mg/dL (70-99) 243mg/dL (70-99) 263mg/dL (70-99) Urine Collection Type Unknown Urine Color Red Urine Clarity Turbid Urine pH 5.0 Urine Specific [place] 1.015 Urine Protein 100mg/dL (NEG-TRACE) Urine Glucose (UA) Negativemg/dL (NEG) Urine Ketones (Stick) Tracemg/dL (NEG) Urine Blood Large (NEG) Urine Nitrite Negative (NEG) Urine Bilirubin Moderate (NEG) Urine Urobilinogen Dipstick 0.2mg/dL (0.2 mg/dL) Urine Leukocyte Esterase Moderate (NEG) Urine RBC Tntc/HPF (0-2) Urine WBC 1-4/HPF (0-4) Urine Squamous Epithelial Cells None/LPF Urine Bacteria Few/HPF (0-FEW) Urine Mucus Slight/LPF Urine Yeast Present/HPF Test 12/09/16 00:37 12/09/16 05:00 12/09/16 06:06 12/09/16 11:48 Glucose (Fingerstick) 209mg/dL (70-99) 165mg/dL (70-99) 199mg/dL (70-99) White Blood Count 12.0x10^3/uL (4.0-11.0) Red Blood Count 2.66x10^6/uL (4.30-5.70) Hemoglobin 8.0g/dL (13.0-17.5) Hematocrit 24.2% (39.0-53.0) Mean Corpuscular Volume 91fL (79-100) Mean Corpuscular Hemoglobin 30pg (25-35) Mean Corpuscular Hemoglobin Concent 33g/dL (31-37) Red Cell Distribution Width 16.5% (11.5-14.5) Platelet Count 410x10^3/uL (140-400) Neutrophils (%) (Auto) 69% (31-73) Lymphocytes (%) (Auto) 13% (24-48) Monocytes (%) (Auto) 11% (0-9) Eosinophils (%) (Auto) 6% (0-3) Basophils (%) (Auto) 1% (0-3) Neutrophils # (Auto) 8.2x10^3uL (1.8-7.7) Lymphocytes # (Auto) 1.5x10^3/uL (1.0-4.8) Monocytes # (Auto) 1.4x10^3/uL (0.0-1.1) Eosinophils # (Auto) 0.7x10^3/uL (0.0-0.7) Basophils # (Auto) 0.1x10^3/uL (0.0-0.2) Sodium Level 145mmol/L (136-145) Potassium Level 4.5mmol/L (3.5-5.1) Chloride Level 107mmol/L (98-107) Carbon Dioxide Level 26mmol/L (21-32) Anion Gap 12 (6-14) Blood Urea Nitrogen 53mg/dL (8-26) Creatinine 1.7mg/dL (0.7-1.3) Estimated GFR (Cockcroft-Gault) 39.9 BUN/Creatinine Ratio 31 (6-20) Glucose Level 203mg/dL (70-99) Calcium Level 9.4mg/dL (8.5-10.1) Magnesium Level 2.2mg/dL (1.8-2.4) Total Bilirubin 1.5mg/dL (0.2-1.0) Aspartate Amino Transf (AST/SGOT) 38U/L (15-37) Alanine Aminotransferase (ALT/SGPT) 76U/L (16-63) Alkaline Phosphatase 229U/L (46-116) Total Protein 6.7g/dL (6.4-8.2) Albumin 2.9g/dL (3.4-5.0) Albumin/Globulin Ratio 0.8 (1.0-1.7) Laboratory Tests Test 12/08/16 17:00 12/08/16 18:08 12/09/16 00:37 12/09/16 05:00 Urine Collection Type Unknown Urine Color Red Urine Clarity Turbid Urine pH 5.0 Urine Specific [place] 1.015 Urine Protein 100mg/dL (NEG-TRACE) Urine Glucose (UA) Negativemg/dL (NEG) Urine Ketones (Stick) Tracemg/dL (NEG) Urine Blood Large (NEG) Urine Nitrite Negative (NEG) Urine Bilirubin Moderate (NEG) Urine Urobilinogen Dipstick 0.2mg/dL (0.2 mg/dL) Urine Leukocyte Esterase Moderate (NEG) Urine RBC Tntc/HPF (0-2) Urine WBC 1-4/HPF (0-4) Urine Squamous Epithelial Cells None/LPF Urine Bacteria Few/HPF (0-FEW) Urine Mucus Slight/LPF Urine Yeast Present/HPF Glucose (Fingerstick) 263mg/dL (70-99) 209mg/dL (70-99) White Blood Count 12.0x10^3/uL (4.0-11.0) Red Blood Count 2.66x10^6/uL (4.30-5.70) Hemoglobin 8.0g/dL (13.0-17.5) Hematocrit 24.2% (39.0-53.0) Mean Corpuscular Volume 91fL (79-100) Mean Corpuscular Hemoglobin 30pg (25-35) Mean Corpuscular Hemoglobin Concent 33g/dL (31-37) Red Cell Distribution Width 16.5% (11.5-14.5) Platelet Count 410x10^3/uL (140-400) Neutrophils (%) (Auto) 69% (31-73) Lymphocytes (%) (Auto) 13% (24-48) Monocytes (%) (Auto) 11% (0-9) Eosinophils (%) (Auto) 6% (0-3) Basophils (%) (Auto) 1% (0-3) Neutrophils # (Auto) 8.2x10^3uL (1.8-7.7) Lymphocytes # (Auto) 1.5x10^3/uL (1.0-4.8) Monocytes # (Auto) 1.4x10^3/uL (0.0-1.1) Eosinophils # (Auto) 0.7x10^3/uL (0.0-0.7) Basophils # (Auto) 0.1x10^3/uL (0.0-0.2) Sodium Level 145mmol/L (136-145) Potassium Level 4.5mmol/L (3.5-5.1) Chloride Level 107mmol/L (98-107) Carbon Dioxide Level 26mmol/L (21-32) Anion Gap 12 (6-14) Blood Urea Nitrogen 53mg/dL (8-26) Creatinine 1.7mg/dL (0.7-1.3) Estimated GFR (Cockcroft-Gault) 39.9 BUN/Creatinine Ratio 31 (6-20) Glucose Level 203mg/dL (70-99) Calcium Level 9.4mg/dL (8.5-10.1) Magnesium Level 2.2mg/dL (1.8-2.4) Total Bilirubin 1.5mg/dL (0.2-1.0) Aspartate Amino Transf (AST/SGOT) 38U/L (15-37) Alanine Aminotransferase (ALT/SGPT) 76U/L (16-63) Alkaline Phosphatase 229U/L (46-116) Total Protein 6.7g/dL (6.4-8.2) Albumin 2.9g/dL (3.4-5.0) Albumin/Globulin Ratio 0.8 (1.0-1.7) Test 12/09/16 06:06 12/09/16 11:48 Glucose (Fingerstick) 165mg/dL (70-99) 199mg/dL (70-99) Comments cxr reviewed, suspect right effusion Impression . 1. Acute respiratory failure secondary to vgn-er-autpjycu cardiopulmonary arrest. 2. Hyperlipidemia. 3. Diabetes. 4. Positive venous Doppler/ high prob V/Q, on Heparin/ popliteal nonocclusive thrombus. 5. Metabolic acidosis sec to code, improved. 6. PE, Bilateral DVT/ PE- S/p IVC. (Will need lifelong anticoag due to catastrophic nature of his presentation. Will transition to lovenox bid, then eliquis when no more procedures needed.(per Heme) 7. Ischemia CM 35-40%, cath no significant lesion 8. Acute kidney injury 9. anemia, 10. wheezing, acute bronchospasm, resolved 11. abnl cxr, suspect loculated effusion 12. GPC bacteremia Plan . ct chest today to assess the need for thoracentesis hold lovenox for possible thoracentesis cath report noted up to chair resp status is compensated lifetime anticoagulation recommend by heme antibx per id ZULEYMA ERVIN MD Dec 09, 2016 12:56
--- NOTE | 2016-12-09 13:27 | PDOC ---
Provider Note Provider Note UROLOGY: c/c gross hematuria Came by to see patient, he is in CT will come back later to see patient. RAMBO Julio DO Dec 09, 2016 13:27
[2016-12-09] MEDS: TPN PER PHARMACY MC PRN (13:33)
--- NOTE | 2016-12-09 14:44 | PDOC ---
Subjective: Subjective: Unsure about PEG, wants to talk to kids. Objective: Objective: Per RN - pt, , children, and cardiology have discussed PEG and have all agreed to proceed. Pt w/ some short-term memory loss. Vital Signs: Vital Signs Date Time Temp Pulse Resp B/P Pulse Ox O2 Delivery O2 Flow Rate FiO2 12/09/16 12:23 2.0 12/09/16 10:29 97.8 95 22 158/77 95 Nasal Cannula 97.8 Labs: Laboratory Tests Test 12/08/16 18:08 12/09/16 00:37 12/09/16 06:06 12/09/16 11:48 Glucose (Fingerstick) 263mg/dL (70-99) 209mg/dL (70-99) 165mg/dL (70-99) 199mg/dL (70-99) PE: GEN: NAD LUNGS: clear anteriorly, nasal cannula HEART: RRR ABD: NABS, S/ND/NT NEURO/PSYCH: A & O 3 A/P: Anemia -on PPI IV, Hgb improved/stable Cardiac arrest, resp failure, [place], dysphagia -on TPN, Lovenox -- Discussed PEG indications, procedure, risks. Await decision, review w/ Dr. Bowers. YAMEL CUEVAS Dec 09, 2016 14:43
[2016-12-09 15:05] VITALS: BP 145/71
--- NOTE | 2016-12-09 16:19 | RAD ---
CT of the chest without contrast, 12/09/2013: History: Loculated effusion, pulmonary emboli Noncontrast scans were obtained with multiplanar reconstructions produced. Comparison is made to a study from 11/28/2016. Scattered coronary artery calcifications are present. The thoracic aorta is of normal size. A right jugular catheter extends into the superior vena cava. No mediastinal adenopathy is seen. The left-sided pleural effusion has nearly completely resolved. There is a moderate size right pleural effusion which has increased slightly since the previous study. The right lower lobe is nearly completely atelectatic with only minimal partial aeration. There are mild streaky and groundglass opacities in the right middle and upper lobes as well as in the left lung. There are 2 peripheral opacities in the anterior aspect of the right upper chest which have increased in size since the previous study. The largest of these measures 38 x 26 mm. These are of medium density. The appearance suggests loculated areas of high density pleural fluid. Peripheral pulmonary consolidation such as pulmonary infarcts or less likely possibility. There is a 3 cm low-density lesion along the lateral aspect of the upper pole of the left kidney, incompletely delineated on these scans, likely an exophytic cyst. IMPRESSION: 1. Slight increase in the moderate-sized right pleural effusion with nearly complete atelectasis of the right lower lobe. 2. Mild streaky and groundglass opacities in both lungs. 3. Enlarging small peripheral opacities in the anterior aspect of the right upper chest suggesting loculated high density pleural fluid such as hemorrhage or empyema versus peripheral parenchymal opacities such as a pulmonary infarct. 4. Interval resolution of the left pleural effusion. 5. Coronary artery disease. PQRS Compliance Statement: One or more of the following individualized dose reduction techniques were utilized for this examination: 1. Automated exposure control 2. Adjustment of the mA and/or kV according to patient size 3. Use of iterative reconstruction technique
[2016-12-09 19:18] VITALS: BP 150/83
[2016-12-09] MEDS: INSULIN DETEMIR 300 UNITS/3 ML INSULN.PEN. SQ SCH (21:27)
[2016-12-09] MEDS ORDERED: LORAZEPAM 2 MG/ML VIAL. IV ONE (21:30)
[2016-12-09] MEDS ORDERED: DEXTROSE 70% IV SCH ×10 (22:00)
[2016-12-09] MEDS ORDERED: [UNRECOGNIZED DRUG - OTHER] IV SCH ×10 (22:00)
[2016-12-09] MEDS ORDERED: TOTAL PARENTERAL NUTRITION IV SCH ×10 (22:00)
[2016-12-09] MEDS ORDERED: AMINO ACIDS IV SCH ×10 (22:00)
[2016-12-09 22:47] VITALS: BP 152/78
[2016-12-10] VITALS (12 sets, daily range): BP systolic 122–152; BP diastolic 62–83
[2016-12-10] MEDS: INSULIN ASPART 300 UNITS/3 ML INSULN.PEN SQ SCH ×4 (00:18→17:48)
[2016-12-10] MEDS: METOPROLOL TARTRATE 5 MG/5 ML VIAL. IVP SCH ×4 (04:32→21:54)
[2016-12-10 04:59] LABS: BASO # 0.1 x10^3/uL (0.0-0.2); BASO % 1 % (0-3); EOS % 7 % (0-3); HEMATOCRIT 25.3 % (39.0-53.0); HEMOGLOBIN 8.4 g/dL (13.0-17.5); LYMPH # 1.3 x10^3/uL (1.0-4.8); LYMPH % 12 % (24-48); MEAN CORPUSCULAR HEMOGLOBIN 31 pg (25-35); MEAN CORPUSCULAR HGB CONC 33 g/dL (31-37); MEAN CORPUSCULAR VOLUME 93 fL (79-100); MONO % 12 % (0-9); NEUT % 68 % (31-73); PLATELET COUNT 366 x10^3/uL (140-400); RED BLOOD COUNT 2.71 x10^6/uL (4.30-5.70); RED CELL DISTRIBUTION WIDTH 16.5 % (11.5-14.5); WHITE BLOOD COUNT 10.5 x10^3/uL (4.0-11.0)
[2016-12-10 05:08] LABS: CALCIUM 8.9 mg/dL (8.5-10.1); CREATININE 1.5 mg/dL (0.7-1.3); GFR 46.1; POTASSIUM 4.5 mmol/L (3.5-5.1)
[2016-12-10 05:10] LABS: MAGNESIUM 1.9 mg/dL (1.8-2.4); PHOSPHORUS 4.4 mg/dL (2.6-4.7)
[2016-12-10] MEDS: ASPIRIN 300 MG SUPP.RECT PR SCH (07:53)
[2016-12-10] MEDS: IPRATROPIUM BROMIDE 0.5 MG/2.5 ML NEBU. NEB SCH ×5 (07:55→20:45)
[2016-12-10] MEDS: PANTOPRAZOLE IV PUSH 40 MG VIAL. IVP SCH (08:49)
--- NOTE | 2016-12-10 09:40 | PDOC ---
Subjective: Subjective: He would like to avoid PEG if possible. Objective: Objective: Per RN - has had discussion w/ pt and family (as his RN yesterday did) re: PEG. Short-term memory loss is an issue. Thoracentesis today - he signed his own consent. Vital Signs: Vital Signs Date Time Temp Pulse Resp B/P Pulse Ox O2 Delivery O2 Flow Rate FiO2 12/10/16 08:49 88 147/72 12/10/16 08:00 Nasal Cannula 1.0 12/10/16 07:59 96 12/10/16 06:45 98.0 16 98.0 Labs: Laboratory Tests Test 12/09/16 11:48 12/09/16 18:24 12/09/16 23:58 12/10/16 04:50 Glucose (Fingerstick) 199mg/dL 185mg/dL 181mg/dL White Blood Count 10.5x10^3/uL Red Blood Count 2.71x10^6/uL Hemoglobin 8.4g/dL Hematocrit 25.3% Mean Corpuscular Volume 93fL Mean Corpuscular Hemoglobin 31pg Mean Corpuscular Hemoglobin Concent 33g/dL Red Cell Distribution Width 16.5% Platelet Count 366x10^3/uL Neutrophils (%) (Auto) 68% Lymphocytes (%) (Auto) 12% Monocytes (%) (Auto) 12% Eosinophils (%) (Auto) 7% Basophils (%) (Auto) 1% Neutrophils # (Auto) 7.1x10^3uL Lymphocytes # (Auto) 1.3x10^3/uL Monocytes # (Auto) 1.3x10^3/uL Eosinophils # (Auto) 0.7x10^3/uL Basophils # (Auto) 0.1x10^3/uL Sodium Level 142mmol/L Potassium Level 4.5mmol/L Chloride Level 106mmol/L Carbon Dioxide Level 26mmol/L Anion Gap 10 Blood Urea Nitrogen 48mg/dL Creatinine 1.5mg/dL Estimated GFR (Cockcroft-Gault) 46.1 Glucose Level 182mg/dL Calcium Level 8.9mg/dL Phosphorus Level 4.4mg/dL Magnesium Level 1.9mg/dL Test 12/10/16 06:04 Glucose (Fingerstick) 161mg/dL Imaging: Chest CT IMPRESSION: 1. Slight increase in the moderate-sized right pleural effusion with nearly complete atelectasis of the right lower lobe. 2. Mild streaky and groundglass opacities in both lungs. 3. Enlarging small peripheral opacities in the anterior aspect of the right upper chest suggesting loculated high density pleural fluid such as hemorrhage or empyema versus peripheral parenchymal opacities such as a pulmonary infarct. 4. Interval resolution of the left pleural effusion. 5. Coronary artery disease. PE: GEN: NAD ABD: S/ND/NT NEURO/PSYCH: A & O A/P: Anemia -on PPI IV, Hgb improved/stable Pleural effusion Cardiac arrest, resp failure, HAMILTON, dysphagia, short term memory loss -on TPN, Lovenox -- Pt still unsure about PEG - d/w RN. Will standby. YAMEL CUEVAS Dec 10, 2016 09:40
--- NOTE | 2016-12-10 11:14 | PDOC ---
SUBJECTIVE ROS HAMILTON/ ? CKD III Doing OK Overall, somewhat weak, but feeling better CVS: no Orthopnea, no CP RESP: no SOB, no ZARATE GI: no Nausea, no Vomiting : no Dysuria, no Urgency OBJECTIVE Vital Signs Vital Signs Date Time Temp Pulse Resp B/P Pulse Ox O2 Delivery O2 Flow Rate FiO2 12/10/16 08:49 88 147/72 12/10/16 08:00 Nasal Cannula 1.0 12/10/16 07:59 96 12/10/16 06:45 98.0 16 98.0 I & 0 Intake and Output 12/10/16 07:00 Intake Total 1200 ml Output Total 1700 ml Balance -500 ml IV Total 1200 ml Output Urine Total 1700 ml # Bowel Movements 1 PHYSICAL EXAM Physical Exam General Appearance: AAO x 3 In no Distress; lying almost flat in bed Eyes: VIsion Unchanged Conjunctiva Normal EN: No EN Drainage Mucous Memb. moist Neck: no JVD no JVP Supple no Thyromegaly CVS: S1 S2 no audible Murmur No Gallop No Rub no Edema Resp: rare basal Rales no Rhonchi no Acc. Muscle use GI: BS +ve NO Bruit Non Tender Non Distended : no CVA tenderness; no Suprapubic Tenderness Assessment & Plan HAMILTON: Creat better today, Reval after Urinary retention episode 12/09 ? CKD - Will await a new baseline, Is this his new baseline? Pl Eff - For tap today; d/w Dr Gray. Nutrition - TPN ongoing for now anemia - D/c EPO for now since hgb is better (karla given previous ? Spontaneous DVTs); Transfuse for hgb < 7 Urinary retention - URO consulted, Bl flushes for now, ? Need for CBI will be deferred to URO COMMENT/RELEVANT DATA Meds Current Medications Medications (Trade) Dose Ordered Sig/Kika Start Time Stop Time Status Last Admin Dose Admin Acetaminophen (Acetaminophen Supp) 650 mg PRN Q6HRS PRN 12/02/16 13:45 Acetaminophen (Tylenol) 650 mg 1X PRN PRN 12/02/16 06:30 12/03/16 06:29 DC Acetaminophen 650 mg 650 mg PRN Q6HRS PRN 11/25/16 23:30 12/02/16 13:29 DC 11/28/16 04:19 650 MG Albumin Human (Albuminar) 100 ml @ 100 mls/hr TID 11/27/16 12:00 11/29/16 09:59 DC 11/29/16 08:56 100 MLS/HR Albuterol Sulfate 2.5 mg 2.5 mg 1X ONCE 11/27/16 06:45 11/27/16 06:46 DC 11/27/16 07:21 2.5 MG Amiodarone HCl (Cordarone) 450 mg STK-MED ONCE 11/25/16 12:00 11/25/16 14:56 DC Aspirin (Aspirin) 300 mg DAILY 11/24/16 09:00 12/08/16 09:59 300 MG Atropine Sulfate 1.5 mg STK-MED ONCE 11/25/16 12:00 11/25/16 14:56 DC Barium Sulfate (Varibar Thin Liquid Apple) 148 gm 1X ONCE 12/05/16 14:00 12/05/16 14:01 DC 12/05/16 13:56 148 GM Budesonide 0.5 mg 0.5 mg RTBID 11/28/16 20:00 12/06/16 18:19 DC 12/06/16 07:36 0.5 MG Calcium Chloride/ Sodium Chloride (Iv Sodium Chloride 0.9% 100ml) 120 ml @ 240 mls/hr 1X ONCE 11/26/16 13:15 11/26/16 13:44 DC 11/26/16 13:22 240 MLS/HR Chlorhexidine Gluconate 15 ml 15 ml BID 11/25/16 21:00 11/26/16 17:49 DC 11/26/16 08:37 15 ML Dextrose 1,000 ml @ 100 mls/hr Q10H 12/08/16 09:30 12/08/16 19:29 DC 12/08/16 09:59 100 MLS/HR Dextrose (Dextrose 50%-Water Syringe) 12.5 gm PRN Q15MIN PRN 12/05/16 14:19 Enoxaparin Sodium (Lovenox 100mg Syringe) 100 mg Q12HR 12/05/16 09:00 12/09/16 11:05 100 MG Enoxaparin Sodium (Lovenox Per Pharmacy Prophylaxis Dosing) 1 each PRN DAILY PRN 11/25/16 08:45 UNV Enoxaparin Sodium (Lovenox Per Pharmacy Treatment Dosing) 1 each PRN DAILY PRN 12/05/16 09:00 12/09/16 13:25 DC Epinephrine HCl 4 mg STK-MED ONCE 11/25/16 12:00 11/25/16 14:56 DC Epinephrine HCl (Adrenalin) 30 mg STK-MED ONCE 11/25/16 12:00 11/25/16 14:56 DC Epinephrine HCl/ Sodium Chloride (Adrenalin/Iv Sodium Chloride 0.9% 250ml) 254 ml @ 0 mls/hr CONT PRN 11/24/16 07:30 11/27/16 08:25 DC 11/26/16 03:05 11.43 MLS/HR Famotidine (Pepcid) 20 mg QHS 11/24/16 21:00 11/28/16 09:46 DC 11/27/16 21:12 20 MG Fentanyl Citrate (Fentanyl 2ml Vial) 25 mcg 1X ONCE 12/04/16 07:45 12/04/16 07:46 DC 12/04/16 07:44 25 MCG Furosemide (Lasix) 20 mg DAILY 12/07/16 09:00 12/08/16 09:24 DC 12/08/16 08:37 20 MG Furosemide 40 mg 40 mg 1X ONCE 11/30/16 15:00 11/30/16 15:01 DC 11/30/16 15:02 40 MG Heparin Sodium (Porcine) 10,000 unit STK-MED ONCE 12/04/16 07:05 12/04/16 07:06 DC Heparin Sodium (Porcine) 1500 unit 1,500 unit PRN Q6HRS PRN 11/24/16 16:45 11/28/16 17:12 DC 11/26/16 12:08 1,500 UNIT Heparin Sodium (Porcine) 2500 unit 2,500 unit 1X ONCE 11/28/16 14:45 11/28/16 14:46 DC 11/28/16 15:45 2,500 UNIT Heparin Sodium/ Dextrose 500 ml @ 0 mls/hr CONT PRN 11/29/16 15:15 12/05/16 08:51 DC 12/04/16 19:23 0 MLS/HR Heparin Sodium/ Sodium Chloride 1,000 ml @ As Directed STK-MED ONCE 12/04/16 12:59 12/05/16 08:51 DC Hydralazine HCl (Apresoline) 10 mg PRN Q4HRS PRN 11/27/16 12:45 12/03/16 20:18 10 MG Info (Anti-Coagulation Monitoring By Pharmacy) 1 each PRN DAILY PRN 12/05/16 10:15 12/07/16 12:19 1 EACH Info (Do NOT chart on this entry -- for MONITORING) 1 each PRN DAILY PRN 12/04/16 07:45 12/06/16 07:44 DC Info 1 ea 1 ea DAILY PRN 11/26/16 08:45 12/05/16 09:17 DC Info 1 each 1 each PRN DAILY PRN 11/29/16 10:30 12/01/16 10:29 DC Insulin Aspart (Novolog) 0-7 UNITS Q6HRS 11/28/16 01:00 12/10/16 06:24 3 UNITS Insulin Detemir (Levemir) 20 units QHS 12/04/16 21:00 12/09/16 21:27 20 UNITS Insulin Human Regular 150 unit/ Sodium Chloride 151.5 ml @ 9.16 mls/hr CONT PRN 11/24/16 09:30 11/27/16 08:25 DC 11/24/16 10:13 3.4 MLS/HR Iodixanol (Visipaque 320) 100 ml STK-MED ONCE 12/04/16 12:59 12/04/16 13:00 DC Iohexol (Omnipaque 300 Mg/ml) 30 ml 1X ONCE 11/29/16 10:00 11/29/16 10:15 DC 11/29/16 10:22 30 ML Ipratropium Drewsey (Atrovent) 0.5 mg RTQID 11/28/16 12:00 12/10/16 07:58 0.5 MG Iron Sucrose/ Sodium Chloride (Venofer/Iv Sodium Chloride 0.9% 250ml) 275 ml @ 78.571 mls/ hr 1X ONCE 12/01/16 09:00 12/01/16 12:29 DC 12/01/16 09:58 78.571 MLS/HR Lidocaine HCl 20 ml 1X ONCE 12/04/16 07:45 12/04/16 07:46 DC 12/04/16 07:43 20 ML Lidocaine HCl 20 ml 20 ml STK-MED ONCE 12/04/16 12:59 12/04/16 13:00 DC Lidocaine/Sodium Bicarbonate (Buffered Lidocaine 1%) 2 ml 1X ONCE 11/29/16 10:00 11/29/16 10:15 DC 11/29/16 10:22 2 ML Linezolid 300 ml @ 300 mls/hr Q12HR 11/28/16 21:00 12/02/16 08:23 DC 12/01/16 21:13 300 MLS/HR Linezolid 600 mg 600 mg BID 11/28/16 09:00 11/28/16 19:45 DC Lorazepam (Ativan) 1 mg 1X ONCE 12/09/16 21:30 12/09/16 21:31 DC 12/09/16 21:29 1 MG Lorazepam 0.5 mg 0.5 mg PRN Q6HRS PRN 12/07/16 16:30 12/08/16 21:17 0.5 MG Lorazepam 1 mg 1 mg PRN Q30MIN PRN 11/24/16 08:45 11/28/16 19:45 DC 11/25/16 12:26 1 MG Magnesium Sulfate/ Dextrose 50 ml @ 25 mls/hr PRN DAILY PRN 11/27/16 08:45 Magnesium Sulfate/ Dextrose (Magnesium Sulfate PREMIX 2GM) 50 ml @ 25 mls/hr 1X ONCE 11/25/16 12:30 11/25/16 14:29 DC 11/25/16 13:28 25 MLS/HR Meperidine HCl (Demerol) 12.5 mg PRN Q30MIN PRN 11/24/16 08:45 11/24/16 22:21 DC 11/24/16 22:21 12.5 MG Metoprolol Tartrate (Lopressor) 5 mg Q6HRS 11/27/16 15:30 11/27/16 19:11 DC 11/27/16 15:40 5 MG Metoprolol Tartrate 5 mg 5 mg Q6HRS@04,10,16,22 11/27/16 22:00 12/10/16 08:49 5 MG Midazolam HCl (Versed 100mg/ 100ml Premix) 100 ml @ 0 mls/hr CONT PRN 11/25/16 23:30 11/26/16 17:49 DC Midazolam HCl (Versed) 0.5 mg 1X ONCE 12/04/16 07:45 12/04/16 07:46 DC 12/04/16 07:44 0.5 MG Morphine Sulfate 4 mg PRN Q2HR PRN 12/04/16 19:15 12/05/16 09:17 DC Multi-Ingred Cream/Lotion/Oil/ Oint (Artificial Tears Eye Oint) 1 radha PRN Q6HRS PRN 11/24/16 08:45 Nicardipine HCl/ Sodium Chloride (Cardene/Iv Sodium Chloride 0.9% 250ml) 270 ml @ 0 mls/hr CONT PRN 11/27/16 20:45 12/05/16 09:17 DC 11/28/16 01:13 81 MLS/HR Nitroglycerin (Nitroglycerin) 200 mcg 1X ONCE 12/04/16 07:45 12/04/16 07:46 DC 12/04/16 07:42 200 MCG Nitroglycerin 0.4 mg 0.4 mg STK-MED ONCE 11/27/16 11:16 11/27/16 11:17 DC 11/27/16 11:26 0.4 MG Nitroglycerin/ Dextrose (Nitroglycerin Drip) 250 ml @ 0 mls/hr CONT PRN 11/30/16 10:45 12/05/16 09:17 DC 11/30/16 10:53 7.5 MLS/HR Ondansetron HCl (Zofran) 4 mg PRN Q6HRS PRN 12/04/16 06:30 Ondansetron HCl 4 mg 4 mg PRN Q6HRS PRN 11/26/16 13:45 12/04/16 06:30 DC 12/03/16 21:17 4 MG Pantoprazole Sodium (Protonix Vial) 40 mg DAILYAC 12/05/16 06:27 12/10/16 08:49 40 MG Pantoprazole Sodium/Sodium Chloride (Protonix Iv/Iv Sodium Chloride 0.9% 100ml) 100 ml @ 10 mls/hr Q10H PRN 11/28/16 10:00 12/01/16 15:59 DC 12/01/16 13:01 10 MLS/HR Piperacillin Sod/ Tazobactam Sod 3.375 gm/Sodium Chloride 50 ml @ 100 mls/hr Q6HRS 11/25/16 00:00 12/07/16 12:10 DC 12/07/16 05:21 100 MLS/HR Piperacillin Sod/ Tazobactam Sod 1 each 1 each PRN DAILY PRN 11/24/16 08:15 11/24/16 13:06 DC Piperacillin Sod/ Tazobactam Sod/ Sodium Chloride (Zosyn/Iv Sodium Chloride 0.9% 100ml) 100 ml @ 200 mls/hr Q6HRS 11/24/16 08:30 11/24/16 11:15 DC 11/24/16 10:10 200 MLS/HR Potassium Chloride/ Magnesium Sulfate/ Calcium Gluconate/ Multivitamins/ Chromium/Copper/ Manganese/Seleni/ Zn/Total Parenteral Nutrition/Amino Acids/Dextrose/ Fat Emulsion Intravenous (Calcium Gluconate/ Infuvite Adult/ Multitrace-5 Conc/ Tpn - Tpn Fluid/ Trophami... 1,512 ml @ 63 mls/hr TPN CONT 11/28/16 22:00 11/29/16 21:59 DC 11/28/16 21:18 63 MLS/HR Potassium Chloride/ Magnesium Sulfate/ Calcium Gluconate/ Multivitamins/ Chromium/Copper/ Manganese/Seleni/ Zn/Total Parenteral Nutrition/Amino Acids/Dextrose/ Fat Emulsion Intravenous (Infuvite Adult/ Multitrace-5 Conc/ Tpn - Tpn Fluid/ Trophamine/ Dextrose 70%-Water Iv So... 1,512 ml @ 63 mls/hr TPN CONT 11/27/16 22:00 11/28/16 21:59 DC 11/27/16 21:22 63 MLS/HR Potassium Chloride/ Potassium Acetate/ Magnesium Sulfate/ Calcium Gluconate/ Multivitamins/ Chromium/Copper/ Manganese/Seleni/ Zn/Total Parenteral Nutrition/Amino Acids/Dextrose/ Fat Emulsion Intravenous (Calcium Gluconate/ Infuvite Adult/ Multitrace-5 Conc/ Tpn - Tpn Flu... 1,512 ml @ 63 mls/hr TPN CONT 11/29/16 22:00 11/30/16 21:59 DC 11/29/16 21:54 63 MLS/HR Potassium Acetate/ Potassium Phosphate/ Magnesium Sulfate/ Calcium Gluconate/ Multivitamins/ Chromium/Copper/ Manganese/Seleni/ Zn/Insulin Human Regular/Total Parenteral Nutrition/Amino Acids/Dextrose/ Fat Emulsion Intravenous (Potassium Phosphate/Calcium Gluconate/ Infuvite Asim... 2,400 ml @ 100 mls/hr TPN CONT 12/09/16 22:00 12/10/16 21:59 12/09/16 21:27 100 MLS/HR Potassium Chloride 50 ml @ 50 mls/hr Q1H 11/26/16 10:30 11/26/16 12:29 DC 11/26/16 11:23 50 MLS/HR Propofol (Diprivan) 100 ml @ 0 mls/hr CONT PRN 11/24/16 08:45 11/26/16 17:49 DC 11/26/16 07:38 5.5 MLS/HR Sodium Bicarbonate 100 meq/Sterile Water 1,100 ml @ 100 mls/hr Q11H 11/26/16 13:00 11/27/16 11:25 DC 11/27/16 00:56 100 MLS/HR Sodium Bicarbonate 150 meq 150 meq STK-MED ONCE 11/25/16 12:00 11/25/16 14:56 DC Sodium Bicarbonate 50 meq/Sodium Chloride 1,050 ml @ 125 mls/hr Q8H24M 11/24/16 08:30 11/26/16 12:41 DC 11/26/16 11:24 125 MLS/HR Sodium Bicarbonate 50 meq 1X ONCE 11/27/16 12:45 11/27/16 12:46 DC 11/27/16 13:24 50 MEQ Sodium Chloride (Iv Sodium Chloride 0.9% 1000ml Bag) 1,000 ml @ 1,000 mls/hr 1X ONCE 11/24/16 11:00 11/24/16 11:59 DC 11/24/16 11:00 1,000 MLS/HR Sodium Chloride (Normal Saline Flush) 3 ml QSHIFT PRN 11/24/16 08:45 Sodium Chloride 90 meq/Potassium Chloride 50 meq/ Magnesium Sulfate 10 meq/Calcium Gluconate 10 meq/ Multivitamins 10 ml/Chromium/ Copper/Manganese/ Seleni/Zn 1 ml/ Total Parenteral Nutrition/Amino Acids/Dextrose/ Fat Emulsion Intravenous 1,594.468 ml @ 66.436 m... TPN CONT 11/27/16 22:00 11/28/16 21:59 Cancel Sodium Chloride/ Potassium Chloride/ Magnesium Sulfate/ Calcium Gluconate/ Multivitamins/ Chromium/Copper/ Manganese/Seleni/ Zn/Total Parenteral Nutrition/Amino Acids/Dextrose/ Fat Emulsion Intravenous (Sodium Chloride/ Infuvite Adult/ Multitrace-5 Conc/ Tpn - Tpn Fluid/ Trophami... 1,594.468 ml @ 66.436 m... TPN CONT 11/26/16 22:00 11/27/16 21:59 DC 11/26/16 21:27 66.436 MLS/HR Temazepam 15 mg 15 mg PRN QHS PRN 12/09/16 11:30 Vancomycin HCl 1 each 1X ONCE 11/29/16 21:30 11/29/16 21:30 DC Vancomycin HCl (Vanco Per Pharmacy) 1 each PRN DAILY PRN 11/25/16 01:00 11/25/16 08:57 DC 11/25/16 03:30 1 EACH Vancomycin HCl 1.5 gm/Sodium Chloride 500 ml @ 250 mls/hr Q24H 11/25/16 10:00 11/25/16 10:00 DC Vancomycin HCl 1 each 1 each PRN DAILY PRN 11/27/16 22:00 11/28/16 08:30 DC 11/27/16 21:38 1 EACH Vancomycin HCl 2 gm/Sodium Chloride 500 ml @ 250 mls/hr 1X ONCE 11/27/16 22:00 11/27/16 23:59 DC 11/27/16 22:57 250 MLS/HR Vancomycin HCl/ Sodium Chloride (Iv Sodium Chloride 0.9% 250ml) 250 ml @ 250 mls/hr 1X ONCE 11/24/16 21:30 11/24/16 22:29 UNV Vancomycin HCl/ Sodium Chloride (Iv Sodium Chloride 0.9% 500ml Bag) 500 ml @ 250 mls/hr Q24H 11/28/16 22:00 11/28/16 22:00 DC Vecuronium Drewsey (Norcuron Bolus) 9 mg PRN Q30MIN PRN 11/24/16 08:45 11/26/16 17:49 DC 11/24/16 17:38 9 MG Verapamil HCl (Verapamil) 5 mg STK-MED ONCE 12/04/16 07:30 12/05/16 08:38 DC Lab Laboratory Tests Test 12/09/16 11:48 12/09/16 18:24 12/09/16 23:58 12/10/16 04:50 Glucose (Fingerstick) 199mg/dL (70-99) 185mg/dL (70-99) 181mg/dL (70-99) White Blood Count 10.5x10^3/uL (4.0-11.0) Red Blood Count 2.71x10^6/uL (4.30-5.70) Hemoglobin 8.4g/dL (13.0-17.5) Hematocrit 25.3% (39.0-53.0) Mean Corpuscular Volume 93fL (79-100) Mean Corpuscular Hemoglobin 31pg (25-35) Mean Corpuscular Hemoglobin Concent 33g/dL (31-37) Red Cell Distribution Width 16.5% (11.5-14.5) Platelet Count 366x10^3/uL (140-400) Neutrophils (%) (Auto) 68% (31-73) Lymphocytes (%) (Auto) 12% (24-48) Monocytes (%) (Auto) 12% (0-9) Eosinophils (%) (Auto) 7% (0-3) Basophils (%) (Auto) 1% (0-3) Neutrophils # (Auto) 7.1x10^3uL (1.8-7.7) Lymphocytes # (Auto) 1.3x10^3/uL (1.0-4.8) Monocytes # (Auto) 1.3x10^3/uL (0.0-1.1) Eosinophils # (Auto) 0.7x10^3/uL (0.0-0.7) Basophils # (Auto) 0.1x10^3/uL (0.0-0.2) Sodium Level 142mmol/L (136-145) Potassium Level 4.5mmol/L (3.5-5.1) Chloride Level 106mmol/L (98-107) Carbon Dioxide Level 26mmol/L (21-32) Anion Gap 10 (6-14) Blood Urea Nitrogen 48mg/dL (8-26) Creatinine 1.5mg/dL (0.7-1.3) Estimated GFR (Cockcroft-Gault) 46.1 Glucose Level 182mg/dL (70-99) Calcium Level 8.9mg/dL (8.5-10.1) Phosphorus Level 4.4mg/dL (2.6-4.7) Magnesium Level 1.9mg/dL (1.8-2.4) Test 12/10/16 06:04 Glucose (Fingerstick) 161mg/dL (70-99) ASHLEY DIAMOND MD Dec 10, 2016 11:14
--- NOTE | 2016-12-10 13:23 | PDOC ---
PROGRESS NOTES Chief Complaint Chief Complaint S/P VT/VF Cardiac arrest Acute respiratory failure possibly 2/2 PE; extubated 11/27 DVT bilateral LEs - IVC filter placed 11/29 Acute blood loss anemia s/p transfusion dysphagia Silent Aspiration; failed swallow study HFrEF [place] vs. CKD DM II bactremia with Peptostreptococcus sp. on Zosyn (day 13) HLD leukocytosis History of Present Illness History of Present Illness no SOA, CXR yesterday shows more pleural fluid hence this was followed up by CT by pulmo and it shows: 1. Slight increase in the moderate-sized right pleural effusion with nearly complete atelectasis of the right lower lobe. 2. Mild streaky and groundglass opacities in both lungs. 3. Enlarging small peripheral opacities in the anterior aspect of the right upper chest suggesting loculated high density pleural fluid such as hemorrhage or empyema versus peripheral parenchymal opacities such as a pulmonary infarct. 4. Interval resolution of the left pleural effusion. 5. Coronary artery disease. Leaning towards PEG Urine seems to begetting bioanalyst - urology on case but has not seen as pt was in CT PLAn: Might need thoracentesis Hold lovenox and ASA MOntior hematuria LEaning towards PEG Family wants SNU not lTAC MOnitor hgb (so far stable at 8)- will need life long AC preferably given PE, DVT etc Vitals Vitals Vital Signs Date Time Temp Pulse Resp B/P Pulse Ox O2 Delivery O2 Flow Rate FiO2 12/10/16 11:00 97 1.0 12/10/16 11:00 97.7 96 18 130/78 Nasal Cannula 97.7 Physical Exam General: Alert, No acute distress, Other (fatigued) Heart: Regular rate, Normal S1 Lungs: Other (decrease bs) Abdomen: Soft, No tenderness Extremities: No edema Skin: No rashes, Other (no bruising) Labs LABS Laboratory Tests Test 12/09/16 18:24 12/09/16 23:58 12/10/16 04:50 12/10/16 06:04 Glucose (Fingerstick) 185mg/dL (70-99) 181mg/dL (70-99) 161mg/dL (70-99) White Blood Count 10.5x10^3/uL (4.0-11.0) Red Blood Count 2.71x10^6/uL (4.30-5.70) Hemoglobin 8.4g/dL (13.0-17.5) Hematocrit 25.3% (39.0-53.0) Mean Corpuscular Volume 93fL (79-100) Mean Corpuscular Hemoglobin 31pg (25-35) Mean Corpuscular Hemoglobin Concent 33g/dL (31-37) Red Cell Distribution Width 16.5% (11.5-14.5) Platelet Count 366x10^3/uL (140-400) Neutrophils (%) (Auto) 68% (31-73) Lymphocytes (%) (Auto) 12% (24-48) Monocytes (%) (Auto) 12% (0-9) Eosinophils (%) (Auto) 7% (0-3) Basophils (%) (Auto) 1% (0-3) Neutrophils # (Auto) 7.1x10^3uL (1.8-7.7) Lymphocytes # (Auto) 1.3x10^3/uL (1.0-4.8) Monocytes # (Auto) 1.3x10^3/uL (0.0-1.1) Eosinophils # (Auto) 0.7x10^3/uL (0.0-0.7) Basophils # (Auto) 0.1x10^3/uL (0.0-0.2) Sodium Level 142mmol/L (136-145) Potassium Level 4.5mmol/L (3.5-5.1) Chloride Level 106mmol/L (98-107) Carbon Dioxide Level 26mmol/L (21-32) Anion Gap 10 (6-14) Blood Urea Nitrogen 48mg/dL (8-26) Creatinine 1.5mg/dL (0.7-1.3) Estimated GFR (Cockcroft-Gault) 46.1 Glucose Level 182mg/dL (70-99) Calcium Level 8.9mg/dL (8.5-10.1) Phosphorus Level 4.4mg/dL (2.6-4.7) Magnesium Level 1.9mg/dL (1.8-2.4) Test 12/10/16 11:57 Glucose (Fingerstick) 159mg/dL (70-99) Review of Systems Review of Systems black/dark urine, no soa, no cp,. n/v/d Assessment and Plan Assessmemt and Plan Problems Medical Problems: (1) Cardiac arrest Status: Acute Problems: Comment Review of Relevant I have reviewed the following items rodolfo (where applicable) has been applied. Labs Laboratory Tests Test 12/08/16 17:00 12/08/16 18:08 12/09/16 00:37 12/09/16 05:00 Urine Collection Type Unknown Urine Color Red Urine Clarity Turbid Urine pH 5.0 Urine Specific [place] 1.015 Urine Protein 100mg/dL (NEG-TRACE) Urine Glucose (UA) Negativemg/dL (NEG) Urine Ketones (Stick) Tracemg/dL (NEG) Urine Blood Large (NEG) Urine Nitrite Negative (NEG) Urine Bilirubin Moderate (NEG) Urine Urobilinogen Dipstick 0.2mg/dL (0.2 mg/dL) Urine Leukocyte Esterase Moderate (NEG) Urine RBC Tntc/HPF (0-2) Urine WBC 1-4/HPF (0-4) Urine Squamous Epithelial Cells None/LPF Urine Bacteria Few/HPF (0-FEW) Urine Mucus Slight/LPF Urine Yeast Present/HPF Glucose (Fingerstick) 263mg/dL (70-99) 209mg/dL (70-99) White Blood Count 12.0x10^3/uL (4.0-11.0) Red Blood Count 2.66x10^6/uL (4.30-5.70) Hemoglobin 8.0g/dL (13.0-17.5) Hematocrit 24.2% (39.0-53.0) Mean Corpuscular Volume 91fL (79-100) Mean Corpuscular Hemoglobin 30pg (25-35) Mean Corpuscular Hemoglobin Concent 33g/dL (31-37) Red Cell Distribution Width 16.5% (11.5-14.5) Platelet Count 410x10^3/uL (140-400) Neutrophils (%) (Auto) 69% (31-73) Lymphocytes (%) (Auto) 13% (24-48) Monocytes (%) (Auto) 11% (0-9) Eosinophils (%) (Auto) 6% (0-3) Basophils (%) (Auto) 1% (0-3) Neutrophils # (Auto) 8.2x10^3uL (1.8-7.7) Lymphocytes # (Auto) 1.5x10^3/uL (1.0-4.8) Monocytes # (Auto) 1.4x10^3/uL (0.0-1.1) Eosinophils # (Auto) 0.7x10^3/uL (0.0-0.7) Basophils # (Auto) 0.1x10^3/uL (0.0-0.2) Sodium Level 145mmol/L (136-145) Potassium Level 4.5mmol/L (3.5-5.1) Chloride Level 107mmol/L (98-107) Carbon Dioxide Level 26mmol/L (21-32) Anion Gap 12 (6-14) Blood Urea Nitrogen 53mg/dL (8-26) Creatinine 1.7mg/dL (0.7-1.3) Estimated GFR (Cockcroft-Gault) 39.9 BUN/Creatinine Ratio 31 (6-20) Glucose Level 203mg/dL (70-99) Calcium Level 9.4mg/dL (8.5-10.1) Magnesium Level 2.2mg/dL (1.8-2.4) Total Bilirubin 1.5mg/dL (0.2-1.0) Aspartate Amino Transf (AST/SGOT) 38U/L (15-37) Alanine Aminotransferase (ALT/SGPT) 76U/L (16-63) Alkaline Phosphatase 229U/L (46-116) Total Protein 6.7g/dL (6.4-8.2) Albumin 2.9g/dL (3.4-5.0) Albumin/Globulin Ratio 0.8 (1.0-1.7) Test 12/09/16 06:06 12/09/16 11:48 12/09/16 18:24 12/09/16 23:58 Glucose (Fingerstick) 165mg/dL (70-99) 199mg/dL (70-99) 185mg/dL (70-99) 181mg/dL (70-99) Test 12/10/16 04:50 12/10/16 06:04 12/10/16 11:57 White Blood Count 10.5x10^3/uL (4.0-11.0) Red Blood Count 2.71x10^6/uL (4.30-5.70) Hemoglobin 8.4g/dL (13.0-17.5) Hematocrit 25.3% (39.0-53.0) Mean Corpuscular Volume 93fL (79-100) Mean Corpuscular Hemoglobin 31pg (25-35) Mean Corpuscular Hemoglobin Concent 33g/dL (31-37) Red Cell Distribution Width 16.5% (11.5-14.5) Platelet Count 366x10^3/uL (140-400) Neutrophils (%) (Auto) 68% (31-73) Lymphocytes (%) (Auto) 12% (24-48) Monocytes (%) (Auto) 12% (0-9) Eosinophils (%) (Auto) 7% (0-3) Basophils (%) (Auto) 1% (0-3) Neutrophils # (Auto) 7.1x10^3uL (1.8-7.7) Lymphocytes # (Auto) 1.3x10^3/uL (1.0-4.8) Monocytes # (Auto) 1.3x10^3/uL (0.0-1.1) Eosinophils # (Auto) 0.7x10^3/uL (0.0-0.7) Basophils # (Auto) 0.1x10^3/uL (0.0-0.2) Sodium Level 142mmol/L (136-145) Potassium Level 4.5mmol/L (3.5-5.1) Chloride Level 106mmol/L (98-107) Carbon Dioxide Level 26mmol/L (21-32) Anion Gap 10 (6-14) Blood Urea Nitrogen 48mg/dL (8-26) Creatinine 1.5mg/dL (0.7-1.3) Estimated GFR (Cockcroft-Gault) 46.1 Glucose Level 182mg/dL (70-99) Calcium Level 8.9mg/dL (8.5-10.1) Phosphorus Level 4.4mg/dL (2.6-4.7) Magnesium Level 1.9mg/dL (1.8-2.4) Glucose (Fingerstick) 161mg/dL (70-99) 159mg/dL (70-99) Laboratory Tests Test 12/09/16 18:24 12/09/16 23:58 12/10/16 04:50 12/10/16 06:04 Glucose (Fingerstick) 185mg/dL (70-99) 181mg/dL (70-99) 161mg/dL (70-99) White Blood Count 10.5x10^3/uL (4.0-11.0) Red Blood Count 2.71x10^6/uL (4.30-5.70) Hemoglobin 8.4g/dL (13.0-17.5) Hematocrit 25.3% (39.0-53.0) Mean Corpuscular Volume 93fL (79-100) Mean Corpuscular Hemoglobin 31pg (25-35) Mean Corpuscular Hemoglobin Concent 33g/dL (31-37) Red Cell Distribution Width 16.5% (11.5-14.5) Platelet Count 366x10^3/uL (140-400) Neutrophils (%) (Auto) 68% (31-73) Lymphocytes (%) (Auto) 12% (24-48) Monocytes (%) (Auto) 12% (0-9) Eosinophils (%) (Auto) 7% (0-3) Basophils (%) (Auto) 1% (0-3) Neutrophils # (Auto) 7.1x10^3uL (1.8-7.7) Lymphocytes # (Auto) 1.3x10^3/uL (1.0-4.8) Monocytes # (Auto) 1.3x10^3/uL (0.0-1.1) Eosinophils # (Auto) 0.7x10^3/uL (0.0-0.7) Basophils # (Auto) 0.1x10^3/uL (0.0-0.2) Sodium Level 142mmol/L (136-145) Potassium Level 4.5mmol/L (3.5-5.1) Chloride Level 106mmol/L (98-107) Carbon Dioxide Level 26mmol/L (21-32) Anion Gap 10 (6-14) Blood Urea Nitrogen 48mg/dL (8-26) Creatinine 1.5mg/dL (0.7-1.3) Estimated GFR (Cockcroft-Gault) 46.1 Glucose Level 182mg/dL (70-99) Calcium Level 8.9mg/dL (8.5-10.1) Phosphorus Level 4.4mg/dL (2.6-4.7) Magnesium Level 1.9mg/dL (1.8-2.4) Test 12/10/16 11:57 Glucose (Fingerstick) 159mg/dL (70-99) Microbiology 11/28/16 Blood Culture - Final, Complete NO GROWTH AFTER 5 DAYS 11/24/16 Stool Culture - Final, Complete 11/24/16 Stool Culture Result 1 (ROSIE) - Final, Complete 11/24/16 Campylobacter Antigen Assay - Final, Complete 11/24/16 Campylobactor Result 1 - Final, Complete 11/24/16 Shiga Toxin Test - Final, Complete 11/25/16 Urine Culture - Final, Complete 11/25/16 Urine Culture Result 1 (ROSIE) - Final, Complete Medications Current Medications Sodium Chloride 1,000 ml @ 1,000 mls/hr Q1H IV Last administered on 11/24/16 06:50; Start 11/24/16 at 06:50; Stop 11/24/16 at 07:49; Status DC Epinephrine HCl/ Sodium Chloride (Adrenalin/Iv Sodium Chloride 0.9% 250ml) 254 ml @ 0 mls/hr CONT PRN IV SEE I/O RECORD Last administered on 11/26/16 03:05; Start 11/24/16 at 07:30; Stop 11/27/16 at 08:25; Status DC Insulin Aspart (Novolog) 0-7 UNITS TIDWMEALS SQ ; Start 11/24/16 at 08:00; Stop 11/24/16 at 15:36; Status DC Dextrose 12.5 gm 12.5 gm PRN Q15MIN PRN IV SEE COMMENTS; Start 11/24/16 at 07: 45; Stop 11/25/16 at 23:34; Status DC Sodium Chloride (Iv Sodium Chloride 0.9% 1000ml Bag) 1,000 ml @ 125 mls/hr 1X ONCE IV Last administered on 11/24/16 07:52; Start 11/24/16 at 08:00; Stop at 08:20; Status DC Vancomycin HCl (Vanco Per Pharmacy) 1 each PRN DAILY PRN MC SEE COMMENTS Last administered on 11/24/16 11:26; Start 11/24/16 at 08:15; Stop 11/24/16 at 13:06 ; Status DC Piperacillin Sod/ Tazobactam Sod 1 each 1 each PRN DAILY PRN MC SEE COMMENTS; Start 11/24/16 at 08:15; Stop 11/24/16 at 13:06; Status DC Sodium Bicarbonate 50 meq/Sodium Chloride 1,050 ml @ 125 mls/hr Q8H24M IV Last administered on 11/26/16 11:24; Start 11/24/16 at 08:30; Stop 11/26/16 at 12:41; Status DC Vancomycin HCl 2 gm/Sodium Chloride 500 ml @ 250 mls/hr ONCE ONCE IV Last administered on 11/24/16 10:15; Start 11/24/16 at 08:30; Stop 11/24/16 at 10:29 ; Status DC Piperacillin Sod/ Tazobactam Sod 4.5 gm/Sodium Chloride 100 ml @ 200 mls/hr Q6HRS IV Last administered on 11/24/16 10:10; Start 11/24/16 at 08:30; Stop at 11:15; Status DC Sodium Chloride (Iv Sodium Chloride 0.9% 1000ml Bag) 1,000 ml @ 1,000 mls/hr Q1H IV Last administered on 11/24/16 10:09; Start 11/24/16 at 08:39; Stop at 11:47; Status DC Fentanyl Citrate (Fentanyl 2ml Vial) 25 mcg PRN Q30MIN PRN IV SED Last administered on 11/30/16 17:24; Start 11/24/16 at 08:45; Stop 12/04/16 at 06:29 ; Status DC Lorazepam 1 mg 1 mg PRN Q30MIN PRN IV SEDATION Last administered on 11/25/16 12:26; Start 11/24/16 at 08:45; Stop 11/28/16 at 19:45; Status DC Fentanyl Citrate 30 ml @ 2.5 mls/hr CONT PRN PRN IV IVF Last administered on 07:40; Start 11/24/16 at 08:45; Stop 11/26/16 at 17:49; Status DC Propofol (Diprivan) 100 ml @ 0 mls/hr CONT PRN IV SEE I/O RECORD Last administered on 11/26/16 07:38; Start 11/24/16 at 08:45; Stop 11/26/16 at 17:49 ; Status DC Vecuronium Bryant (Norcuron Bolus) 9 mg PRN Q30MIN PRN IV SHIVERING Last administered on 11/24/16 17:38; Start 11/24/16 at 08:45; Stop 11/26/16 at 17:49 ; Status DC Meperidine HCl (Demerol) 12.5 mg PRN Q30MIN PRN IV SHIVERING Last administered on 11/24/16 22:21; Start 11/24/16 at 08:45; Stop 11/24/16 at 22:21; Status DC Multi-Ingred Cream/Lotion/Oil/ Oint (Artificial Tears Eye Oint) 1 radha PRN Q6HRS PRN OU 0.5 INCH FOR DRY EYE; Start 11/24/16 at 08:45 Famotidine (Pepcid) 20 mg QHS IVP Last administered on 11/27/16 21:12; Start 11/24/16 at 21:00; Stop 11/28/16 at 09:46; Status DC Aspirin (Aspirin) 300 mg DAILY MI Last administered on 12/08/16 09:59; Start at 09:00 Sodium Chloride (Normal Saline Flush) 3 ml QSHIFT PRN IV AFTER MEDS AND BLOOD DRAWS; Start 11/24/16 at 08:45 Acetaminophen (Tylenol) 650 mg Q6HRS NG ; Start 11/24/16 at 12:00; Stop at 11:59; Status DC Acetaminophen (Tylenol) 650 mg PRN Q6HRS PRN MI MILD PAIN / TEMP; Start at 08:45; Stop 11/25/16 at 23:35; Status DC Acetaminophen (Tylenol) 650 mg PRN Q6HRS PRN NG MILD PAIN / TEMP; Start at 08:45 Info 1 ea 1 ea DAILY PRN MC PER PROTOCOL; Start 11/26/16 at 08:45; Stop at 09:17; Status DC Insulin Human Regular 150 unit/ Sodium Chloride 151.5 ml @ 9.16 mls/hr CONT PRN IV SEE I/O RECORD Last administered on 11/24/16 10:13; Start 11/24/16 at 09 :30; Stop 11/27/16 at 08:25; Status DC Piperacillin Sod/ Tazobactam Sod 3.375 gm/Sodium Chloride 50 ml @ 100 mls/hr Q6HRS IV ; Start 11/24/16 at 18:00; Stop 11/24/16 at 18:00; Status DC Vancomycin HCl/ Sodium Chloride (Iv Sodium Chloride 0.9% 500ml Bag) 500 ml @ 250 mls/hr Q24H IV ; Start 11/25/16 at 10:00; Stop 11/25/16 at 10:00; Status DC Vancomycin HCl 1 each 1 each 1X ONCE MC ; Start 11/26/16 at 09:30; Stop at 09:30; Status DC Sodium Chloride (Iv Sodium Chloride 0.9% 1000ml Bag) 1,000 ml @ 1,000 mls/hr 1X ONCE IV Last administered on 11/24/16 11:00; Start 11/24/16 at 11:00; Stop 11/24/16 at 11:59; Status DC Insulin Detemir (Levemir) 12 units QHS SQ ; Start 11/24/16 at 21:00; Stop at 21:00; Status DC Insulin Aspart (Novolog) 10 units 1X ONCE SQ ; Start 11/24/16 at 15:30; Stop at 20:10; Status DC Insulin Aspart (Novolog) 0-7 UNITS Q4HRS SQ ; Start 11/24/16 at 16:00; Stop at 20:10; Status DC Heparin Sodium (Porcine) 8100 unit 8,100 unit 1X ONCE IV Last administered on 11/24/16 17:24; Start 11/24/16 at 17:00; Stop 11/24/16 at 17:01; Status DC Heparin Sodium/ Dextrose 500 ml @ 0 mls/hr CONT PRN IV SEE I/O RECORD Last administered on 11/28/16 02:06; Start 11/24/16 at 16:45; Stop 11/28/16 at 17:12 ; Status DC Heparin Sodium (Porcine) 3,000 unit PRN Q6HRS PRN IV FOR UFH LEVEL LESS THAN 0.2; Start 11/24/16 at 16:45; Stop 11/28/16 at 17:12; Status DC Heparin Sodium (Porcine) 1,500 unit PRN Q6HRS PRN IV FOR UFH LEVEL 0.2 - 0.29 Last administered on 11/26/16 12:08; Start 11/24/16 at 16:45; Stop 11/28/16 at 17:12; Status DC Info 1 each 1 each PRN DAILY PRN MC SEE COMMENTS Last administered on 10:03; Start 11/24/16 at 17:00; Stop 11/28/16 at 17:13; Status DC Piperacillin Sod/ Tazobactam Sod 3.375 gm/Sodium Chloride 50 ml @ 100 mls/hr Q6HRS IV Last administered on 12/07/16 05:21; Start 11/25/16 at 00:00; Stop 12/07/16 at 12:10; Status DC Vancomycin HCl/ Sodium Chloride (Iv Sodium Chloride 0.9% 250ml) 250 ml @ 250 mls/hr 1X ONCE IV ; Start 11/24/16 at 21:30; Stop 11/24/16 at 22:29; Status UNV Vancomycin HCl 1 each 1 each PRN DAILY PRN MC SEE COMMENTS Last administered on 11/25/16 03:30; Start 11/25/16 at 01:00; Stop 11/25/16 at 08:57; Status DC Vancomycin HCl/ Sodium Chloride (Iv Sodium Chloride 0.9% 500ml Bag) 500 ml @ 250 mls/hr Q24H IV ; Start 11/25/16 at 10:00; Stop 11/25/16 at 10:00; Status DC Vancomycin HCl 1 each 1X ONCE MC ; Start 11/26/16 at 09:30; Stop 11/26/16 at 09 :30; Status DC Enoxaparin Sodium (Lovenox Per Pharmacy Prophylaxis Dosing) 1 each PRN DAILY PRN MC SEE COMMENTS; Start 11/25/16 at 08:45; Status UNV Chlorhexidine Gluconate 15 ml 15 ml BID MM Last administered on 11/26/16 08:37 ; Start 11/25/16 at 21:00; Stop 11/26/16 at 17:49; Status DC Magnesium Sulfate/ Dextrose 50 ml @ 25 mls/hr PRN DAILY PRN IV for Mag < 1.7 on am labs Last administered on 11/26/16 05:29; Start 11/25/16 at 09:45; Stop 11/27/16 at 08:47; Status DC Magnesium Sulfate/ Dextrose 50 ml @ 25 mls/hr PRN DAILY PRN IV for Mag < 1.7 on am labs; Start 11/25/16 at 09:45; Status UNV Sodium Chloride 500 ml @ 0 mls/hr QID PRN IV UO< 30cc/hr over previous 6hrs Last administered on 11/25/16 10:54; Start 11/25/16 at 09:45; Stop 11/27/16 at 11:25; Status DC Magnesium Sulfate/ Dextrose (Magnesium Sulfate PREMIX 2GM) 50 ml @ 25 mls/hr 1X ONCE IV Last administered on 11/25/16 13:28; Start 11/25/16 at 12:30; Stop 11/25/16 at 14:29; Status DC Lidocaine/Sodium Bicarbonate 20 ml 20 ml STK-MED ONCE IJ ; Start 11/25/16 at 12: 35; Stop 11/25/16 at 12:36; Status DC Heparin Sodium/ Sodium Chloride 500 ml @ As Directed STK-MED ONCE .ROUTE ; Start 11/25/16 at 12:35; Stop 11/25/16 at 12:36; Status DC Lidocaine/Sodium Bicarbonate (Buffered Lidocaine 1%) 3 ml 1X ONCE IJ Last administered on 11/25/16 13:15; Start 11/25/16 at 13:15; Stop 11/25/16 at 13:16 ; Status DC Heparin Sodium/ Sodium Chloride 60 unit 1X ONCE IV Last administered on 13:16; Start 11/25/16 at 13:15; Stop 11/25/16 at 13:16; Status DC Amiodarone HCl (Cordarone) 450 mg STK-MED ONCE .ROUTE ; Start 11/25/16 at 12:00 ; Stop 11/25/16 at 14:56; Status DC Epinephrine HCl (Adrenalin) 30 mg STK-MED ONCE .ROUTE ; Start 11/25/16 at 12:00 ; Stop 11/25/16 at 14:56; Status DC Atropine Sulfate 1.5 mg STK-MED ONCE .ROUTE ; Start 11/25/16 at 12:00; Stop at 14:56; Status DC Epinephrine HCl 4 mg STK-MED ONCE .ROUTE ; Start 11/25/16 at 12:00; Stop at 14:56; Status DC Sodium Bicarbonate 150 meq 150 meq STK-MED ONCE .ROUTE ; Start 11/25/16 at 12:00 ; Stop 11/25/16 at 14:56; Status DC Midazolam HCl (Versed 100mg/ 100ml Premix) 100 ml @ 0 mls/hr CONT PRN IV SEE I/ O RECORD; Start 11/25/16 at 23:30; Stop 11/26/16 at 17:49; Status DC Insulin Aspart (Novolog) 0-7 UNITS TIDWMEALS SQ Last administered on 11/27/16 19:43; Start 11/26/16 at 08:00; Stop 11/28/16 at 01:01; Status DC Dextrose 12.5 gm PRN Q15MIN PRN IV SEE COMMENTS; Start 11/25/16 at 23:30; Stop 12/05/16 at 14:19; Status DC Acetaminophen 650 mg 650 mg PRN Q6HRS PRN MI MILD PAIN / TEMP Last administered on 11/28/16 04:19; Start 11/25/16 at 23:30; Stop 12/02/16 at 13:29 ; Status DC Potassium Chloride 50 ml @ 50 mls/hr Q1H IV Last administered on 11/26/16 11: 23; Start 11/26/16 at 10:30; Stop 11/26/16 at 12:29; Status DC Sodium Bicarbonate/ Sterile Water 1,100 ml @ 100 mls/hr Q11H IV Last administered on 11/27/16 00:56; Start 11/26/16 at 13:00; Stop 11/27/16 at 11:25 ; Status DC Info 1 each 1 each PRN DAILY PRN MC SEE COMMENTS Last administered on 12/09/16 13:33; Start 11/26/16 at 12:45 Calcium Chloride/ Sodium Chloride (Iv Sodium Chloride 0.9% 100ml) 120 ml @ 240 mls/hr 1X ONCE IV Last administered on 11/26/16 13:22; Start 11/26/16 at 13: 15; Stop 11/26/16 at 13:44; Status DC Ondansetron HCl 4 mg 4 mg PRN Q6HRS PRN IV NAUSEA/VOMITING Last administered on 12/03/16 21:17; Start 11/26/16 at 13:45; Stop 12/04/16 at 06:30; Status DC Sodium Chloride/ Potassium Chloride/ Magnesium Sulfate/ Calcium Gluconate/ Multivitamins/ Chromium/Copper/ Manganese/Seleni/ Zn/Total Parenteral Nutrition/ Amino Acids/Dextrose/ Fat Emulsion Intravenous (Sodium Chloride/ Infuvite Adult / Multitrace-5 Conc/ Tpn - Tpn Fluid/ Trophami... 1,594.468 ml @ 66.436 m... TPN CONT IV Last administered on 11/26/16 21:27; Start 11/26/16 at 22:00; Stop 11/27/16 at 21:59; Status DC Albuterol Sulfate 2.5 mg 2.5 mg 1X ONCE NEB Last administered on 11/27/16 07: 21; Start 11/27/16 at 06:45; Stop 11/27/16 at 06:46; Status DC Magnesium Sulfate/ Dextrose 50 ml @ 25 mls/hr PRN DAILY PRN IV for Mag < 1.7 on am labs; Start 11/27/16 at 08:45 Sodium Chloride 90 meq/Potassium Chloride 50 meq/ Magnesium Sulfate 10 meq/ Calcium Gluconate 10 meq/ Multivitamins 10 ml/Chromium/ Copper/Manganese/ Seleni /Zn 1 ml/ Total Parenteral Nutrition/Amino Acids/Dextrose/ Fat Emulsion Intravenous 1,594.468 ml @ 66.436 m... TPN CONT IV ; Start 11/27/16 at 22:00; Stop 11/28/16 at 21:59; Status Cancel Potassium Chloride/ Magnesium Sulfate/ Calcium Gluconate/ Multivitamins/ Chromium/Copper/ Manganese/Seleni/ Zn/Total Parenteral Nutrition/Amino Acids/ Dextrose/ Fat Emulsion Intravenous (Infuvite Adult/ Multitrace-5 Conc/ Tpn - Tpn Fluid/ Trophamine/ Dextrose 70%-Water Iv So... 1,512 ml @ 63 mls/hr TPN CONT IV Last administered on 11/27/16 21:22; Start 11/27/16 at 22:00; Stop at 21:59; Status DC Nitroglycerin 0.4 mg 0.4 mg STK-MED ONCE SL Last administered on 11/27/16 11: 26; Start 11/27/16 at 11:16; Stop 11/27/16 at 11:17; Status DC Albumin Human (Albuminar) 100 ml @ 100 mls/hr TID IV Last administered on 11/29 08:56; Start 11/27/16 at 12:00; Stop 11/29/16 at 09:59; Status DC Sodium Bicarbonate 50 meq 1X ONCE IV Last administered on 11/27/16 13:24; Start 11/27/16 at 12:45; Stop 11/27/16 at 12:46; Status DC Hydralazine HCl (Apresoline) 10 mg PRN Q4HRS PRN IVP ELEVATED BP, SEE COMMENTS Last administered on 12/03/16 20:18; Start 11/27/16 at 12:45 Metoprolol Tartrate (Lopressor) 5 mg Q6HRS IVP Last administered on 11/27/16 15:40; Start 11/27/16 at 15:30; Stop 11/27/16 at 19:11; Status DC Metoprolol Tartrate 5 mg 5 mg Q6HRS@04,10,16,22 IVP Last administered on 08:49; Start 11/27/16 at 22:00 Nicardipine HCl/ Sodium Chloride (Cardene/Iv Sodium Chloride 0.9% 250ml) 270 ml @ 0 mls/hr CONT PRN IV SEE I/O RECORD Last administered on 11/28/16 01:13; Start 11/27/16 at 20:45; Stop 12/05/16 at 09:17; Status DC Vancomycin HCl 1 each 1 each PRN DAILY PRN MC SEE COMMENTS Last administered on 11/27/16 21:38; Start 11/27/16 at 22:00; Stop 11/28/16 at 08:30; Status DC Vancomycin HCl 2 gm/Sodium Chloride 500 ml @ 250 mls/hr 1X ONCE IV Last administered on 11/27/16 22:57; Start 11/27/16 at 22:00; Stop 11/27/16 at 23:59 ; Status DC Vancomycin HCl/ Sodium Chloride (Iv Sodium Chloride 0.9% 500ml Bag) 500 ml @ 250 mls/hr Q24H IV ; Start 11/28/16 at 22:00; Stop 11/28/16 at 22:00; Status DC Vancomycin HCl 1 each 1X ONCE MC ; Start 11/29/16 at 21:30; Stop 11/29/16 at 21 :30; Status DC Insulin Aspart (Novolog) 0-7 UNITS Q6HRS SQ Last administered on 12/10/16 06:24 ; Start 11/28/16 at 01:00 Linezolid 600 mg 600 mg BID PO ; Start 11/28/16 at 09:00; Stop 11/28/16 at 19:45 ; Status DC Pantoprazole Sodium/Sodium Chloride (Protonix Iv/Iv Sodium Chloride 0.9% 100ml) 100 ml @ 10 mls/hr Q10H PRN IV . Last administered on 12/01/16 13:01; Start 11/28/16 at 10:00; Stop 12/01/16 at 15:59; Status DC Ipratropium Bryant (Atrovent) 0.5 mg RTQID NEB Last administered on 12/10/16 11:00; Start 11/28/16 at 12:00 Budesonide (Pulmicort) 0.5 mg RTBID NEB Last administered on 12/06/16 07:36; Start 11/28/16 at 20:00; Stop 12/06/16 at 18:19; Status DC Furosemide 40 mg 40 mg 1X ONCE IVP Last administered on 11/28/16 12:15; Start 11/28/16 at 12:15; Stop 11/28/16 at 12:16; Status DC Potassium Chloride/ Magnesium Sulfate/ Calcium Gluconate/ Multivitamins/ Chromium/Copper/ Manganese/Seleni/ Zn/Total Parenteral Nutrition/Amino Acids/ Dextrose/ Fat Emulsion Intravenous (Calcium Gluconate/ Infuvite Adult/ Multitrace-5 Conc/ Tpn - Tpn Fluid/ Trophami... 1,512 ml @ 63 mls/hr TPN CONT IV Last administered on 11/28/16 21:18; Start 11/28/16 at 22:00; Stop at 21:59; Status DC Lidocaine/Sodium Bicarbonate (Buffered Lidocaine 1%) 3 ml 1X ONCE IJ Last administered on 11/28/16 15:45; Start 11/28/16 at 14:45; Stop 11/28/16 at 14:46 ; Status DC Heparin Sodium/ Sodium Chloride 60 unit 1X ONCE IV Last administered on 15:45; Start 11/28/16 at 14:45; Stop 11/28/16 at 14:46; Status DC Heparin Sodium (Porcine) 2500 unit 2,500 unit 1X ONCE INT CAT Last administered on 11/28/16 15:45; Start 11/28/16 at 14:45; Stop 11/28/16 at 14:46 ; Status DC Linezolid 300 ml @ 300 mls/hr Q12HR IV Last administered on 12/01/16 21:13; Start 11/28/16 at 21:00; Stop 12/02/16 at 08:23; Status DC Potassium Chloride/ Potassium Acetate/ Magnesium Sulfate/ Calcium Gluconate/ Multivitamins/ Chromium/Copper/ Manganese/Seleni/ Zn/Total Parenteral Nutrition/ Amino Acids/Dextrose/ Fat Emulsion Intravenous (Calcium Gluconate/ Infuvite Adult/ Multitrace-5 Conc/ Tpn - Tpn Flu... 1,512 ml @ 63 mls/hr TPN CONT IV Last administered on 11/29/16 21:54; Start 11/29/16 at 22:00; Stop 11/30/16 at 21:59; Status DC Iohexol (Omnipaque 300 Mg/ml) 100 ml STK-MED ONCE .ROUTE ; Start 11/29/16 at 09: 12; Stop 11/29/16 at 09:13; Status DC Lidocaine/Sodium Bicarbonate 20 ml 20 ml STK-MED ONCE IJ ; Start 11/29/16 at 09: 12; Stop 11/29/16 at 09:13; Status DC Heparin Sodium/ Sodium Chloride 500 ml @ As Directed STK-MED ONCE .ROUTE ; Start 11/29/16 at 09:12; Stop 11/29/16 at 09:13; Status DC Lidocaine/Sodium Bicarbonate (Buffered Lidocaine 1%) 2 ml 1X ONCE IJ Last administered on 11/29/16 10:22; Start 11/29/16 at 10:00; Stop 11/29/16 at 10:15 ; Status DC Iohexol (Omnipaque 300 Mg/ml) 30 ml 1X ONCE IART Last administered on 10:22; Start 11/29/16 at 10:00; Stop 11/29/16 at 10:15; Status DC Heparin Sodium/ Sodium Chloride 1,000 unit 1X ONCE IV Last administered on 10:21; Start 11/29/16 at 10:00; Stop 11/29/16 at 10:15; Status DC Info 1 each 1 each PRN DAILY PRN MC SEE COMMENTS; Start 11/29/16 at 10:30; Stop 12/01/16 at 10:29; Status DC Heparin Sodium/ Dextrose 500 ml @ 0 mls/hr CONT PRN IV SEE I/O RECORD; Start at 15:15; Status UNV Heparin Sodium/ Dextrose 500 ml @ 0 mls/hr CONT PRN IV SEE I/O RECORD Last administered on 12/04/16 19:23; Start 11/29/16 at 15:15; Stop 12/05/16 at 08:51 ; Status DC Nitroglycerin/ Dextrose 250 ml @ 0 mls/hr CONT PRN IV SEE I/O RECORD Last administered on 11/30/16 10:53; Start 11/30/16 at 10:45; Stop 12/05/16 at 09:17 ; Status DC Potassium Acetate/ Potassium Phosphate/ Magnesium Sulfate/ Calcium Gluconate/ Multivitamins/ Chromium/Copper/ Manganese/Seleni/ Zn/Insulin Human Regular/ Total Parenteral Nutrition/Amino Acids/Dextrose/ Fat Emulsion Intravenous ( Potassium Phosphate/Calcium Gluconate/ Infuvite Asim... 1,472.1 ml @ 63 mls/hr TPN CONT IV Last administered on 11/30/16 21:31; Start 11/30/16 at 22:00; Stop 12/01/16 at 21:21; Status DC Furosemide 40 mg 40 mg 1X ONCE IVP Last administered on 11/30/16 15:02; Start 11/30/16 at 15:00; Stop 11/30/16 at 15:01; Status DC Iron Sucrose/ Sodium Chloride (Venofer/Iv Sodium Chloride 0.9% 250ml) 275 ml @ 78.571 mls/ hr 1X ONCE IV Last administered on 12/01/16 09:58; Start at 09:00; Stop 12/01/16 at 12:29; Status DC Insulin Detemir (Levemir) 12 units QHS SQ Last administered on 12/03/16 21:28 ; Start 12/01/16 at 21:00; Stop 12/04/16 at 16:49; Status DC Info 1 each 1 each PRN DAILY PRN MC SEE COMMENTS Last administered on 12:18; Start 12/01/16 at 10:45; Stop 12/05/16 at 09:17; Status DC Potassium Acetate/ Potassium Phosphate/ Magnesium Sulfate/ Calcium Gluconate/ Multivitamins/ Chromium/Copper/ Manganese/Seleni/ Zn/Insulin Human Regular/ Total Parenteral Nutrition/Amino Acids/Dextrose/ Fat Emulsion Intravenous ( Potassium Phosphate/Calcium Gluconate/ Infuvite Asim... 1,512 ml @ 64.708 mls/ hr TPN CONT IV Last administered on 12/01/16 22:20; Start 12/01/16 at 22:00; Stop 12/02/16 at 21:21; Status DC Pantoprazole Sodium (Protonix Vial) 40 mg DAILYAC IVP Last administered on 12/04 10:37; Start 12/02/16 at 07:30; Stop 12/05/16 at 06:27; Status DC Acetaminophen 650 mg 650 mg 1X PRN PRN PO PRN prior to blood transfusion; Start 12/02/16 at 06:30; Stop 12/03/16 at 06:29; Status DC Potassium Acetate/ Potassium Phosphate/ Magnesium Sulfate/ Calcium Gluconate/ Multivitamins/ Chromium/Copper/ Manganese/Seleni/ Zn/Insulin Human Regular/ Total Parenteral Nutrition/Amino Acids/Dextrose/ Fat Emulsion Intravenous ( Potassium Phosphate/Calcium Gluconate/ Infuvite Asim... 1,512 ml @ 64.708 mls/ hr TPN CONT IV Last administered on 12/02/16 21:46; Start 12/02/16 at 22:00; Stop 12/03/16 at 21:21; Status DC Furosemide (Lasix) 40 mg DAILY IVP Last administered on 12/03/16 08:47; Start 12/02/16 at 12:30; Stop 12/04/16 at 06:30; Status DC Acetaminophen (Acetaminophen Supp) 650 mg PRN Q6HRS PRN MI MILD PAIN / TEMP; Start 12/02/16 at 13:30; Stop 12/02/16 at 13:36; Status DC Acetaminophen 650 mg 650 mg PRN Q6HRS PRN MI MILD PAIN / TEMP; Start 12/02/16 at 13:45 Potassium Acetate/ Potassium Phosphate/ Magnesium Sulfate/ Calcium Gluconate/ Multivitamins/ Chromium/Copper/ Manganese/Seleni/ Zn/Insulin Human Regular/ Total Parenteral Nutrition/Amino Acids/Dextrose/ Fat Emulsion Intravenous ( Potassium Phosphate/Calcium Gluconate/ Infuvite Asim... 1,512 ml @ 63 mls/hr TPN CONT IV Last administered on 12/03/16t 21:05; Start 12/03/16 at 22:00; Stop 12/04/16 at 21:59; Status DC Fentanyl Citrate (Fentanyl 2ml Vial) 25 mcg PRN Q30MIN PRN IV SED; Start at 06:29; Stop 12/05/16 at 09:17; Status DC Ondansetron HCl (Zofran) 4 mg PRN Q6HRS PRN IV NAUSEA/VOMITING; Start 12/04/16 at 06:30 Furosemide (Lasix) 40 mg DAILY IVP Last administered on 12/06/16t 10:20; Start 12/04/16 at 06:30; Stop 12/06/16 at 15:12; Status DC Lidocaine HCl 20 ml 20 ml STK-MED ONCE .ROUTE ; Start 12/04/16 at 07:02; Stop at 07:03; Status DC Heparin Sodium/ Sodium Chloride 1,500 ml @ As Directed STK-MED ONCE .ROUTE ; Start 12/04/16 at 07:02; Stop 12/04/16 at 07:03; Status DC Iodixanol (Visipaque 320) 100 ml STK-MED ONCE .ROUTE ; Start 12/04/16 at 07:02; Stop 12/04/16 at 07:03; Status DC Nitroglycerin (Nitroglycerin) 200 mcg STK-MED ONCE .ROUTE ; Start 12/04/16 at 07 :05; Stop 12/04/16 at 07:06; Status DC Verapamil HCl (Verapamil) 5 mg STK-MED ONCE .ROUTE ; Start 12/04/16 at 07:05; Stop 12/04/16 at 07:06; Status DC Midazolam HCl (Versed) 2 mg STK-MED ONCE .ROUTE ; Start 12/04/16 at 07:05; Stop 12/04/16 at 07:06; Status DC Fentanyl Citrate (Fentanyl 2ml Vial) 100 mcg STK-MED ONCE .ROUTE ; Start at 07:05; Stop 12/04/16 at 07:06; Status DC Heparin Sodium (Porcine) 10,000 unit STK-MED ONCE .ROUTE ; Start 12/04/16 at 07: 05; Stop 12/04/16 at 07:06; Status DC Nitroglycerin (Nitroglycerin) 200 mcg STK-MED ONCE .ROUTE ; Start 12/04/16 at 07 :17; Stop 12/04/16 at 07:18; Status DC Verapamil HCl (Verapamil) 5 mg STK-MED ONCE .ROUTE ; Start 12/04/16 at 07:18; Stop 12/04/16 at 07:19; Status DC Nitroglycerin (Nitroglycerin) 200 mcg 1X ONCE IART Last administered on 07:42; Start 12/04/16 at 07:45; Stop 12/04/16 at 07:46; Status DC Verapamil HCl (Verapamil) 2.5 mg 1X ONCE IART Last administered on 12/04/16 07:43; Start 12/04/16 at 07:45; Stop 12/04/16 at 07:46; Status DC Heparin Sodium/ Sodium Chloride 1,000 unit 1X ONCE IART Last administered on 07:43; Start 12/04/16 at 07:45; Stop 12/04/16 at 07:46; Status DC Midazolam HCl (Versed) 0.5 mg 1X ONCE IV Last administered on 12/04/16 07:44 ; Start 12/04/16 at 07:45; Stop 12/04/16 at 07:46; Status DC Fentanyl Citrate (Fentanyl 2ml Vial) 25 mcg 1X ONCE IV Last administered on 07:44; Start 12/04/16 at 07:45; Stop 12/04/16 at 07:46; Status DC Iodixanol (Visipaque 320) 100 ml 1X ONCE IART Last administered on 12/04/16 07:42; Start 12/04/16 at 07:45; Stop 12/04/16 at 07:46; Status DC Lidocaine HCl 20 ml 1X ONCE IJ Last administered on 12/04/16 07:43; Start at 07:45; Stop 12/04/16 at 07:46; Status DC Info 1 each 1 each PRN DAILY PRN MC SEE COMMENTS; Start 12/04/16 at 07:45; Stop 12/06/16 at 07:44; Status DC Potassium Acetate/ Potassium Phosphate/ Magnesium Sulfate/ Calcium Gluconate/ Multivitamins/ Chromium/Copper/ Manganese/Seleni/ Zn/Insulin Human Regular/ Total Parenteral Nutrition/Amino Acids/Dextrose/ Fat Emulsion Intravenous ( Potassium Phosphate/Calcium Gluconate/ Infuvite Asim... 1,512 ml @ 63 mls/hr TPN CONT IV Last administered on 12/04/16 22:47; Start 12/04/16 at 22:00; Stop 12/05/16 at 21:59; Status DC Lidocaine HCl 20 ml 20 ml STK-MED ONCE .ROUTE ; Start 12/04/16 at 12:59; Stop at 13:00; Status DC Heparin Sodium/ Sodium Chloride 1,000 ml @ As Directed STK-MED ONCE .ROUTE ; Start 12/04/16 at 12:59; Stop 12/05/16 at 08:51; Status DC Iodixanol (Visipaque 320) 100 ml STK-MED ONCE .ROUTE ; Start 12/04/16 at 12:59; Stop 12/04/16 at 13:00; Status DC Insulin Detemir (Levemir) 25 units QHS SQ ; Start 12/04/16 at 21:00; Stop at 21:00; Status DC Insulin Detemir (Levemir) 20 units QHS SQ Last administered on 12/09/16 21:27; Start 12/04/16 at 21:00 Morphine Sulfate 2 mg PRN Q2HR PRN IV PAIN Last administered on 12/04/16 19:20 ; Start 12/04/16 at 19:15 Morphine Sulfate 4 mg PRN Q2HR PRN IV PAIN; Start 12/04/16 at 19:15; Stop 12/05 at 09:17; Status DC Pantoprazole Sodium (Protonix Vial) 40 mg DAILYAC IVP Last administered on 08:49; Start 12/05/16 at 06:27 Verapamil HCl (Verapamil) 5 mg STK-MED ONCE .ROUTE ; Start 12/04/16 at 07:30; Stop 12/05/16 at 08:38; Status DC Enoxaparin Sodium (Lovenox Per Pharmacy Treatment Dosing) 1 each PRN DAILY PRN MC SEE COMMENTS; Start 12/05/16 at 09:00; Stop 12/09/16 at 13:25; Status DC Enoxaparin Sodium (Lovenox 100mg Syringe) 100 mg Q12HR SQ Last administered on 12/09/16 11:05; Start 12/05/16 at 09:00 Info 1 each 1 each PRN DAILY PRN MC SEE COMMENTS Last administered on 12/07/16 12:19; Start 12/05/16 at 10:15 Potassium Acetate/ Potassium Phosphate/ Magnesium Sulfate/ Calcium Gluconate/ Multivitamins/ Chromium/Copper/ Manganese/Seleni/ Zn/Insulin Human Regular/ Total Parenteral Nutrition/Amino Acids/Dextrose/ Fat Emulsion Intravenous ( Potassium Phosphate/Calcium Gluconate/ Infuvite Asim... 1,512 ml @ 63 mls/hr TPN CONT IV Last administered on 12/05/16 21:14; Start 12/05/16 at 22:00; Stop 12/06/16 at 21:59; Status DC Barium Sulfate (Varibar Thin Liquid Apple) 148 gm 1X ONCE PO Last administered on 12/05/16 13:56; Start 12/05/16 at 14:00; Stop 12/05/16 at 14:01 ; Status DC Dextrose 12.5 gm 12.5 gm PRN Q15MIN PRN IV SEE COMMENTS; Start 12/05/16 at 14: 19 Potassium Acetate/ Potassium Phosphate/ Magnesium Sulfate/ Calcium Gluconate/ Multivitamins/ Chromium/Copper/ Manganese/Seleni/ Zn/Insulin Human Regular/ Total Parenteral Nutrition/Amino Acids/Dextrose/ Fat Emulsion Intravenous ( Potassium Phosphate/Calcium Gluconate/ Infuvite Asim... 1,512 ml @ 63 mls/hr TPN CONT IV Last administered on 12/06/16 20:49; Start 12/06/16 at 22:00; Stop 12/07/16 at 21:59; Status DC Furosemide 20 mg 20 mg DAILY IVP Last administered on 12/08/16 08:37; Start 12/07/16 at 09:00; Stop 12/08/16 at 09:24; Status DC Potassium Acetate/ Potassium Phosphate/ Magnesium Sulfate/ Calcium Gluconate/ Multivitamins/ Chromium/Copper/ Manganese/Seleni/ Zn/Insulin Human Regular/ Total Parenteral Nutrition/Amino Acids/Dextrose/ Fat Emulsion Intravenous ( Potassium Phosphate/Calcium Gluconate/ Infuvite Asim... 1,512 ml @ 63 mls/hr TPN CONT IV Last administered on 12/07/16 20:23; Start 12/07/16 at 22:00; Stop 12/08/16 at 21:59; Status DC Lorazepam 0.5 mg 0.5 mg PRN Q6HRS PRN IV ANXIETY / AGITATION Last administered on 12/08/16 21:17; Start 12/07/16 at 16:30 Dextrose 1,000 ml @ 100 mls/hr Q10H IV Last administered on 12/08/16 09:59; Start 12/08/16 at 09:30; Stop 12/08/16 at 19:29; Status DC Potassium Acetate/ Potassium Phosphate/ Magnesium Sulfate/ Calcium Gluconate/ Multivitamins/ Chromium/Copper/ Manganese/Seleni/ Zn/Insulin Human Regular/ Total Parenteral Nutrition/Amino Acids/Dextrose/ Fat Emulsion Intravenous ( Potassium Phosphate/Calcium Gluconate/ Infuvite Asim... 2,400 ml @ 100 mls/hr TPN CONT IV Last administered on 12/08/16 21:20; Start 12/08/16 at 22:00; Stop 12/09/16 at 21:59; Status DC Temazepam 15 mg 15 mg PRN QHS PRN PO INSOMNIA; Start 12/09/16 at 11:30 Potassium Acetate/ Potassium Phosphate/ Magnesium Sulfate/ Calcium Gluconate/ Multivitamins/ Chromium/Copper/ Manganese/Seleni/ Zn/Insulin Human Regular/ Total Parenteral Nutrition/Amino Acids/Dextrose/ Fat Emulsion Intravenous ( Potassium Phosphate/Calcium Gluconate/ Infuvite Asim... 2,400 ml @ 100 mls/hr TPN CONT IV Last administered on 12/09/16 21:27; Start 12/09/16 at 22:00; Stop 12/10/16 at 21:59 Lorazepam (Ativan) 1 mg 1X ONCE IV Last administered on 12/09/16 21:29; Start 12/09/16 at 21:30; Stop 12/09/16 at 21:31; Status DC Vitals/I & O Vital Sign - Last 24 Hours 12/09/16 12/09/16 12/09/16 12/09/16 15:05 16:41 16:56 19:18 Temp 97.9 98.0 97.9 98.0 Pulse 90 90 93 Resp 20 20 B/P 145/71 145/71 150/83 Pulse Ox 95 97 O2 Delivery Nasal Cannula Nasal Cannula O2 Flow Rate 2.0 2.0 12/09/16 12/09/16 12/09/16 12/09/16 19:21 19:45 21:28 22:47 Temp 98.2 98.2 Pulse 93 84 Resp 18 B/P 150/83 152/78 Pulse Ox 95 97 O2 Delivery Nasal Cannula Nasal Cannula O2 Flow Rate 2.0 2.0 2.0 12/10/16 12/10/16 12/10/16 12/10/16 03:19 04:32 06:45 07:59 Temp 98.0 98.0 98.0 98.0 Pulse 100 100 88 Resp 20 16 B/P 152/69 152/69 147/72 Pulse Ox 96 97 96 O2 Delivery Nasal Cannula Nasal Cannula O2 Flow Rate 2.0 2.0 2.0 12/10/16 12/10/16 12/10/16 12/10/16 08:00 08:49 11:00 11:00 Temp 97.7 97.7 Pulse 88 96 Resp 18 B/P 147/72 130/78 Pulse Ox 98 97 O2 Delivery Nasal Cannula Nasal Cannula O2 Flow Rate 1.0 1.0 1.0 Intake and Output 12/09/16 12/09/16 12/10/16 15:00 23:00 07:00 Intake Total 1200 ml Output Total 1700 ml Balance 1200 ml -1700 ml EVELYNE ANTONIO MD Dec 10, 2016 13:23
--- NOTE | 2016-12-10 14:29 | PDOC ---
PULMONARY PROGRESS NOTES Subjective no soa Vitals Vital Signs Date Time Temp Pulse Resp B/P Pulse Ox O2 Delivery O2 Flow Rate FiO2 12/10/16 11:00 97 1.0 12/10/16 11:00 97.7 96 18 130/78 Nasal Cannula 97.7 Comments ros as mentioned as above. discussed w rn, other sys otherwise neg ROS: No Nausea, No Abdominal Pain General: Alert, No acute distress HEENT: Other (nc at, perrl, nose clear, shallow oropharynx. neck, + jvd, no thyromegaly, no lap) Lungs: Other (decrease bs) Cardiovascular: S1, S2 Abdomen: Soft, Non-tender, Other (no mass) Neuro Exam: Alert Extremities: Other (2=edema) Skin: Warm Labs Laboratory Tests Test 12/08/16 17:00 12/08/16 18:08 12/09/16 00:37 12/09/16 05:00 Urine Collection Type Unknown Urine Color Red Urine Clarity Turbid Urine pH 5.0 Urine Specific [place] 1.015 Urine Protein 100mg/dL (NEG-TRACE) Urine Glucose (UA) Negativemg/dL (NEG) Urine Ketones (Stick) Tracemg/dL (NEG) Urine Blood Large (NEG) Urine Nitrite Negative (NEG) Urine Bilirubin Moderate (NEG) Urine Urobilinogen Dipstick 0.2mg/dL (0.2 mg/dL) Urine Leukocyte Esterase Moderate (NEG) Urine RBC Tntc/HPF (0-2) Urine WBC 1-4/HPF (0-4) Urine Squamous Epithelial Cells None/LPF Urine Bacteria Few/HPF (0-FEW) Urine Mucus Slight/LPF Urine Yeast Present/HPF Glucose (Fingerstick) 263mg/dL (70-99) 209mg/dL (70-99) White Blood Count 12.0x10^3/uL (4.0-11.0) Red Blood Count 2.66x10^6/uL (4.30-5.70) Hemoglobin 8.0g/dL (13.0-17.5) Hematocrit 24.2% (39.0-53.0) Mean Corpuscular Volume 91fL (79-100) Mean Corpuscular Hemoglobin 30pg (25-35) Mean Corpuscular Hemoglobin Concent 33g/dL (31-37) Red Cell Distribution Width 16.5% (11.5-14.5) Platelet Count 410x10^3/uL (140-400) Neutrophils (%) (Auto) 69% (31-73) Lymphocytes (%) (Auto) 13% (24-48) Monocytes (%) (Auto) 11% (0-9) Eosinophils (%) (Auto) 6% (0-3) Basophils (%) (Auto) 1% (0-3) Neutrophils # (Auto) 8.2x10^3uL (1.8-7.7) Lymphocytes # (Auto) 1.5x10^3/uL (1.0-4.8) Monocytes # (Auto) 1.4x10^3/uL (0.0-1.1) Eosinophils # (Auto) 0.7x10^3/uL (0.0-0.7) Basophils # (Auto) 0.1x10^3/uL (0.0-0.2) Sodium Level 145mmol/L (136-145) Potassium Level 4.5mmol/L (3.5-5.1) Chloride Level 107mmol/L (98-107) Carbon Dioxide Level 26mmol/L (21-32) Anion Gap 12 (6-14) Blood Urea Nitrogen 53mg/dL (8-26) Creatinine 1.7mg/dL (0.7-1.3) Estimated GFR (Cockcroft-Gault) 39.9 BUN/Creatinine Ratio 31 (6-20) Glucose Level 203mg/dL (70-99) Calcium Level 9.4mg/dL (8.5-10.1) Magnesium Level 2.2mg/dL (1.8-2.4) Total Bilirubin 1.5mg/dL (0.2-1.0) Aspartate Amino Transf (AST/SGOT) 38U/L (15-37) Alanine Aminotransferase (ALT/SGPT) 76U/L (16-63) Alkaline Phosphatase 229U/L (46-116) Total Protein 6.7g/dL (6.4-8.2) Albumin 2.9g/dL (3.4-5.0) Albumin/Globulin Ratio 0.8 (1.0-1.7) Test 12/09/16 06:06 12/09/16 11:48 12/09/16 18:24 12/09/16 23:58 Glucose (Fingerstick) 165mg/dL (70-99) 199mg/dL (70-99) 185mg/dL (70-99) 181mg/dL (70-99) Test 12/10/16 04:50 12/10/16 06:04 12/10/16 11:57 White Blood Count 10.5x10^3/uL (4.0-11.0) Red Blood Count 2.71x10^6/uL (4.30-5.70) Hemoglobin 8.4g/dL (13.0-17.5) Hematocrit 25.3% (39.0-53.0) Mean Corpuscular Volume 93fL (79-100) Mean Corpuscular Hemoglobin 31pg (25-35) Mean Corpuscular Hemoglobin Concent 33g/dL (31-37) Red Cell Distribution Width 16.5% (11.5-14.5) Platelet Count 366x10^3/uL (140-400) Neutrophils (%) (Auto) 68% (31-73) Lymphocytes (%) (Auto) 12% (24-48) Monocytes (%) (Auto) 12% (0-9) Eosinophils (%) (Auto) 7% (0-3) Basophils (%) (Auto) 1% (0-3) Neutrophils # (Auto) 7.1x10^3uL (1.8-7.7) Lymphocytes # (Auto) 1.3x10^3/uL (1.0-4.8) Monocytes # (Auto) 1.3x10^3/uL (0.0-1.1) Eosinophils # (Auto) 0.7x10^3/uL (0.0-0.7) Basophils # (Auto) 0.1x10^3/uL (0.0-0.2) Sodium Level 142mmol/L (136-145) Potassium Level 4.5mmol/L (3.5-5.1) Chloride Level 106mmol/L (98-107) Carbon Dioxide Level 26mmol/L (21-32) Anion Gap 10 (6-14) Blood Urea Nitrogen 48mg/dL (8-26) Creatinine 1.5mg/dL (0.7-1.3) Estimated GFR (Cockcroft-Gault) 46.1 Glucose Level 182mg/dL (70-99) Calcium Level 8.9mg/dL (8.5-10.1) Phosphorus Level 4.4mg/dL (2.6-4.7) Magnesium Level 1.9mg/dL (1.8-2.4) Glucose (Fingerstick) 161mg/dL (70-99) 159mg/dL (70-99) Laboratory Tests Test 12/09/16 18:24 12/09/16 23:58 12/10/16 04:50 12/10/16 06:04 Glucose (Fingerstick) 185mg/dL (70-99) 181mg/dL (70-99) 161mg/dL (70-99) White Blood Count 10.5x10^3/uL (4.0-11.0) Red Blood Count 2.71x10^6/uL (4.30-5.70) Hemoglobin 8.4g/dL (13.0-17.5) Hematocrit 25.3% (39.0-53.0) Mean Corpuscular Volume 93fL (79-100) Mean Corpuscular Hemoglobin 31pg (25-35) Mean Corpuscular Hemoglobin Concent 33g/dL (31-37) Red Cell Distribution Width 16.5% (11.5-14.5) Platelet Count 366x10^3/uL (140-400) Neutrophils (%) (Auto) 68% (31-73) Lymphocytes (%) (Auto) 12% (24-48) Monocytes (%) (Auto) 12% (0-9) Eosinophils (%) (Auto) 7% (0-3) Basophils (%) (Auto) 1% (0-3) Neutrophils # (Auto) 7.1x10^3uL (1.8-7.7) Lymphocytes # (Auto) 1.3x10^3/uL (1.0-4.8) Monocytes # (Auto) 1.3x10^3/uL (0.0-1.1) Eosinophils # (Auto) 0.7x10^3/uL (0.0-0.7) Basophils # (Auto) 0.1x10^3/uL (0.0-0.2) Sodium Level 142mmol/L (136-145) Potassium Level 4.5mmol/L (3.5-5.1) Chloride Level 106mmol/L (98-107) Carbon Dioxide Level 26mmol/L (21-32) Anion Gap 10 (6-14) Blood Urea Nitrogen 48mg/dL (8-26) Creatinine 1.5mg/dL (0.7-1.3) Estimated GFR (Cockcroft-Gault) 46.1 Glucose Level 182mg/dL (70-99) Calcium Level 8.9mg/dL (8.5-10.1) Phosphorus Level 4.4mg/dL (2.6-4.7) Magnesium Level 1.9mg/dL (1.8-2.4) Test 12/10/16 11:57 Glucose (Fingerstick) 159mg/dL (70-99) Comments cxr reviewed, suspect right effusion Impression . 1. Acute respiratory failure secondary to [id number] cardiopulmonary arrest. 2. Hyperlipidemia. 3. Diabetes. 4. Positive venous Doppler/ high prob V/Q, on Heparin/ popliteal nonocclusive thrombus. 5. Metabolic acidosis sec to code, improved. 6. PE, Bilateral DVT/ PE- S/p IVC. (Will need lifelong anticoag due to catastrophic nature of his presentation. Will transition to lovenox bid, then eliquis when no more procedures needed.(per Heme) 7. Ischemia CM 35-40%, cath no significant lesion 8. Acute kidney injury 9. anemia, 10. wheezing, acute bronchospasm, resolved 11. abnl cxr, loculated effusion 12. GPC bacteremia Plan . ct chest confirmed moderate right effusion. Patient /family agreed for thoracentesis hold lovenox for thoracentesis cath report noted up to chair resp status is compensated lifetime anticoagulation recommended by heme antibx per id follow results of pleural fluid resume lovenox post tap ZULEYMA ERVIN MD Dec 10, 2016 14:29
[2016-12-10] MEDS ORDERED: LIDOCAINE 1% / SOD BICARB 8.4% 20 ML VIAL. IJ ONE ×2 (14:30→15:15)
[2016-12-10] MEDS ORDERED: NALOXONE 0.4 MG/ML VIAL. ONE (14:45)
[2016-12-10] MEDS ORDERED: FLUMAZENIL 0.5 MG/5 ML VIAL. IV ONE (14:45)
[2016-12-10] MEDS ORDERED: FENTANYL PF 100 MCG/2 ML VIAL. ONE (14:45)
[2016-12-10] MEDS ORDERED: MIDAZOLAM HCL/PF 2 MG/2 ML VIAL. ONE (14:45)
[2016-12-10] MEDS: TPN PER PHARMACY MC PRN (14:46)
[2016-12-10] MEDS ORDERED: MIDAZOLAM HCL/PF 2 MG/2 ML VIAL. IV ONE (15:15)
[2016-12-10] MEDS ORDERED: FENTANYL PF 100 MCG/2 ML VIAL. IV ONE (15:15)
--- NOTE | 2016-12-10 15:29 | PDOC ---
MODERATE SEDATION ASSESSMENT RISKS/ALTERNATIVES Risks/Alternatives Risks and alternatives of this type of sedation and procedure discussed with: RISK/ALTERNATIVES: Patient H & P ON CHART H & P H & P on chart and reviewed for co-morbid conditions and appropriate labs. H&P ON CHART: Yes STATUS PREG STATUS ASSESSED: N/A MEDS/ALLERGIES REVIEWED Meds/Allergies Reviewed Medications and Allergies including time and route of recently administered narcotics and sedatives. MEDS/ALLERGIES REVIEWED: Yes ASA RATING ASA RATING: III AIRWAY ASSESSMENT Airway Assessment Airway patency, oral function limitations, presence of caps, crowns, dentures, partials, and ability to extend neck assessed. AIRWAY ASSESSMENT: Yes MALLAMPATI SCORE MALLAMPATI SCORE: II PRE-SEDATION ASSESSMENT PRE-SEDATION ASSESSMENT: Yes DEJA TARIQ MD Dec 10, 2016 15:29
--- NOTE | 2016-12-10 15:35 | PDOC ---
Exam Seo Manager Seo Manager [address] Magistrate F [place] Pre-Procedure Diagnosis Pre-Procedure Diagnosis 71 YO male with respiratory distress s/p out of hospital cardiac arrest. DVT + PE on Lovenox. Loculated high density rt pleural effusion, raising ? of hemothorax. Image guided thoracentesis requested by Pulmonary. Post-Procedure Diagnosis Post-Procedure Diagnosis Right hemothorax---chest tube inserted Procedure Performed Procedure Performed CT guided Dx thoracentesis, followed by chest tube insertion for gross hemothorax. Type of Anesthesia Type of Anesthesia Local + Mod sedation Estimated Blood Loss EBL: Trace Specimens Specimans 100 cc grossly bloody pleural fluid removed and sent to lab per Dr Gray Drain/Tubes Drains/Tubes 14F locking pigtail right chest tube introduced---to PleurEvac Condition of Patient Condition of Patient Stable. No apparent complication. Disposition Disposition From IR/CT return to [facility]. Chest tube to wall suction at -20cm H2O. Chest tube management per Dr Gray. Full report to follow. DEJA TARIQ MD Dec 10, 2016 15:35
[2016-12-10] MEDS: MORPHINE SULFATE 2 MG/ML DISP.SYRIN. IV PRN ×3 (16:36→21:53)
--- NOTE | 2016-12-10 17:57 | RAD ---
PROCEDURE Portable AP chest x-ray performed at 5:08 p.m. HISTORY 2 hours post right-sided chest tube insertion. COMPARISON December 08, 2016. FINDINGS The previously seen right-sided pleural effusion has been evacuated by a right-sided chest tube. The pigtail of the chest tube is seen within the lateral inferior aspect of the right pleural space. There is improved aeration of the right lung base. There is mild increase in the interstitium bilaterally which may indicate mild interstitial pulmonary edema bilaterally. No pneumothorax is seen. The right IJ central line is unchanged in position. IMPRESSION No pneumothorax. Placement of right-sided chest tube with evacuation of right-sided pleural effusion. Mild bilateral interstitial pulmonary edema. Electronically signed by: Manuel Marc MD (Dec 10, 2016 17:55:15)
[2016-12-10] MEDS: INSULIN DETEMIR 300 UNITS/3 ML INSULN.PEN. SQ SCH (19:48)
[2016-12-10] MEDS: LORAZEPAM 2 MG/ML VIAL. IV PRN (21:54)
[2016-12-10] MEDS ORDERED: TOTAL PARENTERAL NUTRITION IV SCH ×10 (22:00)
[2016-12-10] MEDS ORDERED: [UNRECOGNIZED DRUG - OTHER] IV SCH ×10 (22:00)
[2016-12-10] MEDS ORDERED: AMINO ACIDS IV SCH ×10 (22:00)
[2016-12-10] MEDS ORDERED: DEXTROSE 70% IV SCH ×10 (22:00)
[2016-12-11 03:20] VITALS: BP 132/65
[2016-12-11] MEDS: METOPROLOL TARTRATE 5 MG/5 ML VIAL. IVP SCH ×4 (04:30→20:46)
--- NOTE | 2016-12-11 04:50 | CONS ---
DATE OF CONSULTATION: 12/10/2016 ROOM NUMBER: 254. CHIEF COMPLAINT: Gross hematuria. HISTORY OF PRESENT ILLNESS: This is a 71-year-old male that is recovering from cardiac arrest. After his hospitalization, the patient developed acute respiratory failure and was intubated. He then experienced a pulmonary embolus. Following that, he has had deep vein thrombosis bilaterally of the lower extremities. He has had an inferior vena cava filter placed during his hospitalization. He has had multiple blood transfusions. The patient also experienced chronic kidney disease. He has a history of diabetes. It is my understanding that the patient developed gross hematuria after his admission to the hospital. He and his family state he had no voiding problems. No prostate problems prior to admission. He has not had prostate surgery nor has he been on any prostate medications in his lifetime. The patient was fully anticoagulated. He had a Pal catheter in place. It is my understanding that it was removed for a voiding trial. He failed a voiding trial and the catheter was replaced. Since that time, he has had some gross hematuria. PHYSICAL EXAMINATION: GENERAL DESCRIPTION: A 71-year-old male, appears to be alert and oriented. His is present and provides most of the history. The patient has a chest tube in place on the right side that was placed today and also has indwelling Pal catheter. The urine color is dark mattie at this time. The gross hematuria has resolved. ABDOMEN: The abdomen is soft. Negative for flank pain bilaterally. No palpable abdominal masses. He denies suprapubic tenderness. He does have a right chest tube in place, which is draining heme colored pleural fluid. GENITALIA: The patient has indwelling Pal catheter, believed to be an 18-Danish. A urine color is dark concentrated straw colored today. RECTAL: Not performed at this time. MUSCULOSKELETAL: The patient has numerous areas throughout the extremities that show ecchymosis. LABORATORY DATA: The patient's current hemoglobin is 8.4, hematocrit is 25.3, platelet count is high at 366,000. The patient's BUN today is 48, creatinine 1.5, glucose 192. The patient's last INR was 1.2. His last PT was 14.2. His PTT is 41. Urine culture: Most recent culture shows 25-50,000 colonies and yeast was isolated as well. X-RAY STUDIES: No x-rays. CT scan on 11/28/2016, revealed some renal cysts, no evidence of hydronephrosis, no evidence of calculi. Ultrasound of the abdomen revealed cholelithiasis, hepatomegaly, and a left renal cyst measuring about 4.2 cm. IMPRESSION: 1. Gross hematuria. 2. Anticoagulated state. PLAN: I think that the patient's gross hematuria is secondary to his anticoagulated state and Pal catheter trauma. The urine is much better today. I recommend no intervention at this time. I would leave the patient's Pal catheter in place until he is ambulatory. Prior to removing his Pal catheter, I would start him on Flomax 1 tablet p.o. at bedtime since he failed his voiding trial earlier. I do not think that the patient can void satisfactorily while lying in bed and that is why I think that he should be maintained on Pal catheter until he is more ambulatory. Thank you for the opportunity to participate in evaluation of this patient. If I can be of further assistance, please do not hesitate to call. RAMBO KHAN DO DR: [email or web address] JOB#: [id number] / [id number]
[2016-12-11] MEDS: INSULIN ASPART 300 UNITS/3 ML INSULN.PEN SQ SCH ×5 (05:44→23:43)
[2016-12-11 06:32] LABS: CALCIUM 9.4 mg/dL (8.5-10.1); CREATININE 1.6 mg/dL (0.7-1.3); GFR 42.8; POTASSIUM 4.9 mmol/L (3.5-5.1)
[2016-12-11 06:38] LABS: BASO # 0.1 x10^3/uL (0.0-0.2); BASO % 1 % (0-3); EOS % 7 % (0-3); HEMATOCRIT 28.3 % (39.0-53.0); HEMOGLOBIN 9.4 g/dL (13.0-17.5); LYMPH # 1.6 x10^3/uL (1.0-4.8); LYMPH % 14 % (24-48); MEAN CORPUSCULAR HEMOGLOBIN 30 pg (25-35); MEAN CORPUSCULAR HGB CONC 33 g/dL (31-37); MEAN CORPUSCULAR VOLUME 91 fL (79-100); MONO % 14 % (0-9); NEUT % 65 % (31-73); PLATELET COUNT 419 x10^3/uL (140-400); RED BLOOD COUNT 3.13 x10^6/uL (4.30-5.70); RED CELL DISTRIBUTION WIDTH 16.5 % (11.5-14.5); WHITE BLOOD COUNT 11.3 x10^3/uL (4.0-11.0)
[2016-12-11 06:49] LABS: INR 1.1 (0.8-1.1); PROTHROMBIN TIME PATIENT 13.2 SEC (11.7-14.0)
[2016-12-11] MEDS: IPRATROPIUM BROMIDE 0.5 MG/2.5 ML NEBU. NEB SCH ×4 (06:57→19:36)
[2016-12-11 07:00] VITALS: BP 131/73
--- NOTE | 2016-12-11 07:27 | RAD ---
CT-guided thoracentesis with chest tube insertion for hemothorax Indication: 71-year-old male status post out of hospital cardiac arrest. DVT with PE on Lovenox. Respiratory failure with large, loculated, hyperdense right pleural effusion, raising the question of hemothorax. Image guided thoracentesis has been requested by pulmonary. This was productive of grossly bloody right pleural fluid-----therefore, chest tube insertion was considered indicated. Anesthesia: 26 minutes moderate sedation was provided utilizing a total 1 mg Versed and 50 mcg fentanyl, IV. The patient was appropriately monitored by a qualified independent observer throughout the time of moderate sedation. Procedure: Informed consent was obtained from the patient. He was placed supine on the CT scanner. Moderate sedation was provided with IV Versed and fentanyl. Right thoracentesis: Preliminary noncontrast CT images confirmed the presence of a large right pleural effusion, with associated right basilar compression atelectasis/infiltrate. A skin site suitable for CT-guided thoracentesis was selected and marked along the lateral aspect of lower right hemithorax. That area was prepped and draped in the usual sterile fashion. Using aseptic technique, local anesthesia, and CT guidance, a micropuncture sheath was successfully introduced into the low right lateral pleural space. This sheath was then exchanged over a guidewire for a 6 Chinese drainage catheter. Approximately 100 cc of grossly bloody pleural fluid was then easily removed, samples which were submitted to the clinical laboratory per referring adult care manager request. Right chest tube insertion: Due to gross hemothorax, chest tube insertion was considered indicated. The 6 Chinese drainage catheter, utilized for the thoracentesis procedure was removed over a guidewire. The percutaneous tract was dilated and a 14 Chinese locking pigtail right chest tube was easily introduced and was directed toward right posterior costophrenic angle. Completion CT images documented satisfactory position of the chest tube, which was connected to Pleur-evac, and was secured at the skin exit site utilizing suture and sterile dressing. Patient tolerated the procedures well without apparent complication. Impression: Successful, uneventful CT-guided diagnostic right thoracentesis, followed by successful, uneventful right chest tube insertion, as described. PQRS compliance statement: One or more of the following individualized dose reduction techniques was utilized for this CT procedure: 1. Automated exposure control. 2. Adjustment of MA and/or KV according to patient size. 3. Iterative reconstruction technique.
[2016-12-11 07:33] LABS: ALBUMIN/GLOBULIN RATIO 0.8 (1.0-1.7); CALCIUM 9.2 mg/dL (8.5-10.1); CREATININE 1.6 mg/dL (0.7-1.3); GFR 42.8; POTASSIUM 4.8 mmol/L (3.5-5.1); TOTAL BILIRUBIN 1.3 mg/dL (0.2-1.0); TOTAL PROTEIN 6.9 g/dL (6.4-8.2)
--- NOTE | 2016-12-11 08:44 | PDOC ---
PROGRESS NOTES Subjective Subjective c/c - f/u Bilateral DVT/ PE ROS - blood tinged drainage from chest tube Objective Objective Vital Signs Date Time Temp Pulse Resp B/P Pulse Ox O2 Delivery O2 Flow Rate FiO2 12/11/16 08:38 Nasal Cannula 1.0 12/11/16 07:00 98.0 91 20 131/73 90 98.0 Intake and Output 12/11/16 07:00 Intake Total 2030 ml Output Total 3700 ml Balance -1670 ml IV Total 2030 ml Output Urine Total 2800 ml Chest Tube Drainage Total 900 ml Physical Exam Heart: Normal S1 Lungs: Clear to auscultation Assessment Assessment Problems Medical Problems: (1) Cardiac arrest Status: Acute A/P: 1. 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 However, he had hemothorax 12/10/16, hence hold lovenox. I d/w Dr Leray and Dr Gray who agree. 2. Anemia now due to critical illness. Stable. Hb now 9.4, monitor cbc 3. S/p cardiac arrest, no clear cardiac cause, likely to due PE. 4. CKD- stable 5. Hemothorax - chest tube management per Dr Gray Comment Review of Relevant I have reviewed the following items rodolfo (where applicable) has been applied. Labs Laboratory Tests Test 12/09/16 11:48 12/09/16 18:24 12/09/16 23:58 12/10/16 04:50 Glucose (Fingerstick) 199mg/dL (70-99) 185mg/dL (70-99) 181mg/dL (70-99) White Blood Count 10.5x10^3/uL (4.0-11.0) Red Blood Count 2.71x10^6/uL (4.30-5.70) Hemoglobin 8.4g/dL (13.0-17.5) Hematocrit 25.3% (39.0-53.0) Mean Corpuscular Volume 93fL (79-100) Mean Corpuscular Hemoglobin 31pg (25-35) Mean Corpuscular Hemoglobin Concent 33g/dL (31-37) Red Cell Distribution Width 16.5% (11.5-14.5) Platelet Count 366x10^3/uL (140-400) Neutrophils (%) (Auto) 68% (31-73) Lymphocytes (%) (Auto) 12% (24-48) Monocytes (%) (Auto) 12% (0-9) Eosinophils (%) (Auto) 7% (0-3) Basophils (%) (Auto) 1% (0-3) Neutrophils # (Auto) 7.1x10^3uL (1.8-7.7) Lymphocytes # (Auto) 1.3x10^3/uL (1.0-4.8) Monocytes # (Auto) 1.3x10^3/uL (0.0-1.1) Eosinophils # (Auto) 0.7x10^3/uL (0.0-0.7) Basophils # (Auto) 0.1x10^3/uL (0.0-0.2) Sodium Level 142mmol/L (136-145) Potassium Level 4.5mmol/L (3.5-5.1) Chloride Level 106mmol/L (98-107) Carbon Dioxide Level 26mmol/L (21-32) Anion Gap 10 (6-14) Blood Urea Nitrogen 48mg/dL (8-26) Creatinine 1.5mg/dL (0.7-1.3) Estimated GFR (Cockcroft-Gault) 46.1 Glucose Level 182mg/dL (70-99) Calcium Level 8.9mg/dL (8.5-10.1) Phosphorus Level 4.4mg/dL (2.6-4.7) Magnesium Level 1.9mg/dL (1.8-2.4) Test 12/10/16 06:04 12/10/16 11:57 12/10/16 15:00 12/10/16 17:41 Glucose (Fingerstick) 161mg/dL (70-99) 159mg/dL (70-99) 194mg/dL (70-99) Special Test - Miscellaneous See separate report Test 12/11/16 01:40 12/11/16 05:43 12/11/16 06:10 Glucose (Fingerstick) 151mg/dL (70-99) 106mg/dL (70-99) White Blood Count 11.3x10^3/uL (4.0-11.0) Red Blood Count 3.13x10^6/uL (4.30-5.70) Hemoglobin 9.4g/dL (13.0-17.5) Hematocrit 28.3% (39.0-53.0) Mean Corpuscular Volume 91fL (79-100) Mean Corpuscular Hemoglobin 30pg (25-35) Mean Corpuscular Hemoglobin Concent 33g/dL (31-37) Red Cell Distribution Width 16.5% (11.5-14.5) Platelet Count 419x10^3/uL (140-400) Neutrophils (%) (Auto) 65% (31-73) Lymphocytes (%) (Auto) 14% (24-48) Monocytes (%) (Auto) 14% (0-9) Eosinophils (%) (Auto) 7% (0-3) Basophils (%) (Auto) 1% (0-3) Neutrophils # (Auto) 7.3x10^3uL (1.8-7.7) Lymphocytes # (Auto) 1.6x10^3/uL (1.0-4.8) Monocytes # (Auto) 1.6x10^3/uL (0.0-1.1) Eosinophils # (Auto) 0.7x10^3/uL (0.0-0.7) Basophils # (Auto) 0.1x10^3/uL (0.0-0.2) Prothrombin Time 13.2SEC (11.7-14.0) Prothromb Time International Ratio 1.1 (0.8-1.1) Sodium Level 142mmol/L (136-145) Potassium Level 4.9mmol/L (3.5-5.1) Chloride Level 107mmol/L (98-107) Carbon Dioxide Level 24mmol/L (21-32) Anion Gap 11 (6-14) Blood Urea Nitrogen 52mg/dL (8-26) Creatinine 1.6mg/dL (0.7-1.3) Estimated GFR (Cockcroft-Gault) 42.8 BUN/Creatinine Ratio 31 (6-20) Glucose Level 110mg/dL (70-99) Calcium Level 9.4mg/dL (8.5-10.1) Total Bilirubin 1.3mg/dL (0.2-1.0) Aspartate Amino Transf (AST/SGOT) 31U/L (15-37) Alanine Aminotransferase (ALT/SGPT) 60U/L (16-63) Alkaline Phosphatase 249U/L (46-116) Total Protein 6.9g/dL (6.4-8.2) Albumin 3.0g/dL (3.4-5.0) Albumin/Globulin Ratio 0.8 (1.0-1.7) Laboratory Tests Test 12/10/16 11:57 12/10/16 15:00 12/10/16 17:41 12/11/16 01:40 Glucose (Fingerstick) 159mg/dL (70-99) 194mg/dL (70-99) 151mg/dL (70-99) Special Test - Miscellaneous See separate report Test 12/11/16 05:43 12/11/16 06:10 Glucose (Fingerstick) 106mg/dL (70-99) White Blood Count 11.3x10^3/uL (4.0-11.0) Red Blood Count 3.13x10^6/uL (4.30-5.70) Hemoglobin 9.4g/dL (13.0-17.5) Hematocrit 28.3% (39.0-53.0) Mean Corpuscular Volume 91fL (79-100) Mean Corpuscular Hemoglobin 30pg (25-35) Mean Corpuscular Hemoglobin Concent 33g/dL (31-37) Red Cell Distribution Width 16.5% (11.5-14.5) Platelet Count 419x10^3/uL (140-400) Neutrophils (%) (Auto) 65% (31-73) Lymphocytes (%) (Auto) 14% (24-48) Monocytes (%) (Auto) 14% (0-9) Eosinophils (%) (Auto) 7% (0-3) Basophils (%) (Auto) 1% (0-3) Neutrophils # (Auto) 7.3x10^3uL (1.8-7.7) Lymphocytes # (Auto) 1.6x10^3/uL (1.0-4.8) Monocytes # (Auto) 1.6x10^3/uL (0.0-1.1) Eosinophils # (Auto) 0.7x10^3/uL (0.0-0.7) Basophils # (Auto) 0.1x10^3/uL (0.0-0.2) Prothrombin Time 13.2SEC (11.7-14.0) Prothromb Time International Ratio 1.1 (0.8-1.1) Sodium Level 142mmol/L (136-145) Potassium Level 4.9mmol/L (3.5-5.1) Chloride Level 107mmol/L (98-107) Carbon Dioxide Level 24mmol/L (21-32) Anion Gap 11 (6-14) Blood Urea Nitrogen 52mg/dL (8-26) Creatinine 1.6mg/dL (0.7-1.3) Estimated GFR (Cockcroft-Gault) 42.8 BUN/Creatinine Ratio 31 (6-20) Glucose Level 110mg/dL (70-99) Calcium Level 9.4mg/dL (8.5-10.1) Total Bilirubin 1.3mg/dL (0.2-1.0) Aspartate Amino Transf (AST/SGOT) 31U/L (15-37) Alanine Aminotransferase (ALT/SGPT) 60U/L (16-63) Alkaline Phosphatase 249U/L (46-116) Total Protein 6.9g/dL (6.4-8.2) Albumin 3.0g/dL (3.4-5.0) Albumin/Globulin Ratio 0.8 (1.0-1.7) Microbiology 11/28/16 Blood Culture - Final, Complete NO GROWTH AFTER 5 DAYS 11/24/16 Stool Culture - Final, Complete 11/24/16 Stool Culture Result 1 (ROSIE) - Final, Complete 11/24/16 Campylobacter Antigen Assay - Final, Complete 11/24/16 Campylobactor Result 1 - Final, Complete 11/24/16 Shiga Toxin Test - Final, Complete 12/09/16 Urine Culture - Preliminary, Resulted 12/09/16 Urine Culture Result 1 (ROSIE) - Preliminary, Resulted Medications Current Medications Sodium Chloride 1,000 ml @ 1,000 mls/hr Q1H IV Last administered on 11/24/16t 06:50; Start 11/24/16 at 06:50; Stop 11/24/16 at 07:49; Status DC Epinephrine HCl/ Sodium Chloride (Adrenalin/Iv Sodium Chloride 0.9% 250ml) 254 ml @ 0 mls/hr CONT PRN IV SEE I/O RECORD Last administered on 11/26/16 03:05; Start 11/24/16 at 07:30; Stop 11/27/16 at 08:25; Status DC Insulin Aspart (Novolog) 0-7 UNITS TIDWMEALS SQ ; Start 11/24/16 at 08:00; Stop 11/24/16 at 15:36; Status DC Dextrose 12.5 gm 12.5 gm PRN Q15MIN PRN IV SEE COMMENTS; Start 11/24/16 at 07: 45; Stop 11/25/16 at 23:34; Status DC Sodium Chloride (Iv Sodium Chloride 0.9% 1000ml Bag) 1,000 ml @ 125 mls/hr 1X ONCE IV Last administered on 11/24/16 07:52; Start 11/24/16 at 08:00; Stop at 08:20; Status DC Vancomycin HCl (Vanco Per Pharmacy) 1 each PRN DAILY PRN MC SEE COMMENTS Last administered on 11/24/16 11:26; Start 11/24/16 at 08:15; Stop 11/24/16 at 13:06 ; Status DC Piperacillin Sod/ Tazobactam Sod 1 each 1 each PRN DAILY PRN MC SEE COMMENTS; Start 11/24/16 at 08:15; Stop 11/24/16 at 13:06; Status DC Sodium Bicarbonate 50 meq/Sodium Chloride 1,050 ml @ 125 mls/hr Q8H24M IV Last administered on 11/26/16 11:24; Start 11/24/16 at 08:30; Stop 11/26/16 at 12:41; Status DC Vancomycin HCl 2 gm/Sodium Chloride 500 ml @ 250 mls/hr ONCE ONCE IV Last administered on 11/24/16 10:15; Start 11/24/16 at 08:30; Stop 11/24/16 at 10:29 ; Status DC Piperacillin Sod/ Tazobactam Sod 4.5 gm/Sodium Chloride 100 ml @ 200 mls/hr Q6HRS IV Last administered on 11/24/16 10:10; Start 11/24/16 at 08:30; Stop at 11:15; Status DC Sodium Chloride (Iv Sodium Chloride 0.9% 1000ml Bag) 1,000 ml @ 1,000 mls/hr Q1H IV Last administered on 11/24/16 10:09; Start 11/24/16 at 08:39; Stop at 11:47; Status DC Fentanyl Citrate (Fentanyl 2ml Vial) 25 mcg PRN Q30MIN PRN IV SED Last administered on 11/30/16 17:24; Start 11/24/16 at 08:45; Stop 12/04/16 at 06:29 ; Status DC Lorazepam 1 mg 1 mg PRN Q30MIN PRN IV SEDATION Last administered on 11/25/16 12:26; Start 11/24/16 at 08:45; Stop 11/28/16 at 19:45; Status DC Fentanyl Citrate 30 ml @ 2.5 mls/hr CONT PRN PRN IV IVF Last administered on 07:40; Start 11/24/16 at 08:45; Stop 11/26/16 at 17:49; Status DC Propofol (Diprivan) 100 ml @ 0 mls/hr CONT PRN IV SEE I/O RECORD Last administered on 11/26/16 07:38; Start 11/24/16 at 08:45; Stop 11/26/16 at 17:49 ; Status DC Vecuronium Eureka (Norcuron Bolus) 9 mg PRN Q30MIN PRN IV SHIVERING Last administered on 11/24/16 17:38; Start 11/24/16 at 08:45; Stop 11/26/16 at 17:49 ; Status DC Meperidine HCl (Demerol) 12.5 mg PRN Q30MIN PRN IV SHIVERING Last administered on 11/24/16 22:21; Start 11/24/16 at 08:45; Stop 11/24/16 at 22:21; Status DC Multi-Ingred Cream/Lotion/Oil/ Oint (Artificial Tears Eye Oint) 1 radha PRN Q6HRS PRN OU 0.5 INCH FOR DRY EYE; Start 11/24/16 at 08:45 Famotidine (Pepcid) 20 mg QHS IVP Last administered on 11/27/16 21:12; Start 11/24/16 at 21:00; Stop 11/28/16 at 09:46; Status DC Aspirin (Aspirin) 300 mg DAILY ND Last administered on 12/08/16 09:59; Start at 09:00 Sodium Chloride (Normal Saline Flush) 3 ml QSHIFT PRN IV AFTER MEDS AND BLOOD DRAWS; Start 11/24/16 at 08:45 Acetaminophen (Tylenol) 650 mg Q6HRS NG ; Start 11/24/16 at 12:00; Stop at 11:59; Status DC Acetaminophen (Tylenol) 650 mg PRN Q6HRS PRN ND MILD PAIN / TEMP; Start at 08:45; Stop 11/25/16 at 23:35; Status DC Acetaminophen (Tylenol) 650 mg PRN Q6HRS PRN NG MILD PAIN / TEMP; Start at 08:45 Info 1 ea 1 ea DAILY PRN MC PER PROTOCOL; Start 11/26/16 at 08:45; Stop at 09:17; Status DC Insulin Human Regular 150 unit/ Sodium Chloride 151.5 ml @ 9.16 mls/hr CONT PRN IV SEE I/O RECORD Last administered on 11/24/16 10:13; Start 11/24/16 at 09 :30; Stop 11/27/16 at 08:25; Status DC Piperacillin Sod/ Tazobactam Sod 3.375 gm/Sodium Chloride 50 ml @ 100 mls/hr Q6HRS IV ; Start 11/24/16 at 18:00; Stop 11/24/16 at 18:00; Status DC Vancomycin HCl/ Sodium Chloride (Iv Sodium Chloride 0.9% 500ml Bag) 500 ml @ 250 mls/hr Q24H IV ; Start 11/25/16 at 10:00; Stop 11/25/16 at 10:00; Status DC Vancomycin HCl 1 each 1 each 1X ONCE MC ; Start 11/26/16 at 09:30; Stop at 09:30; Status DC Sodium Chloride (Iv Sodium Chloride 0.9% 1000ml Bag) 1,000 ml @ 1,000 mls/hr 1X ONCE IV Last administered on 11/24/16 11:00; Start 11/24/16 at 11:00; Stop 11/24/16 at 11:59; Status DC Insulin Detemir (Levemir) 12 units QHS SQ ; Start 11/24/16 at 21:00; Stop at 21:00; Status DC Insulin Aspart (Novolog) 10 units 1X ONCE SQ ; Start 11/24/16 at 15:30; Stop at 20:10; Status DC Insulin Aspart (Novolog) 0-7 UNITS Q4HRS SQ ; Start 11/24/16 at 16:00; Stop at 20:10; Status DC Heparin Sodium (Porcine) 8100 unit 8,100 unit 1X ONCE IV Last administered on 11/24/16 17:24; Start 11/24/16 at 17:00; Stop 11/24/16 at 17:01; Status DC Heparin Sodium/ Dextrose 500 ml @ 0 mls/hr CONT PRN IV SEE I/O RECORD Last administered on 11/28/16 02:06; Start 11/24/16 at 16:45; Stop 11/28/16 at 17:12 ; Status DC Heparin Sodium (Porcine) 3,000 unit PRN Q6HRS PRN IV FOR UFH LEVEL LESS THAN 0.2; Start 11/24/16 at 16:45; Stop 11/28/16 at 17:12; Status DC Heparin Sodium (Porcine) 1,500 unit PRN Q6HRS PRN IV FOR UFH LEVEL 0.2 - 0.29 Last administered on 11/26/16 12:08; Start 11/24/16 at 16:45; Stop 11/28/16 at 17:12; Status DC Info 1 each 1 each PRN DAILY PRN MC SEE COMMENTS Last administered on 10:03; Start 11/24/16 at 17:00; Stop 11/28/16 at 17:13; Status DC Piperacillin Sod/ Tazobactam Sod 3.375 gm/Sodium Chloride 50 ml @ 100 mls/hr Q6HRS IV Last administered on 12/07/16 05:21; Start 11/25/16 at 00:00; Stop 12/07/16 at 12:10; Status DC Vancomycin HCl/ Sodium Chloride (Iv Sodium Chloride 0.9% 250ml) 250 ml @ 250 mls/hr 1X ONCE IV ; Start 11/24/16 at 21:30; Stop 11/24/16 at 22:29; Status UNV Vancomycin HCl 1 each 1 each PRN DAILY PRN MC SEE COMMENTS Last administered on 11/25/16 03:30; Start 11/25/16 at 01:00; Stop 11/25/16 at 08:57; Status DC Vancomycin HCl/ Sodium Chloride (Iv Sodium Chloride 0.9% 500ml Bag) 500 ml @ 250 mls/hr Q24H IV ; Start 11/25/16 at 10:00; Stop 11/25/16 at 10:00; Status DC Vancomycin HCl 1 each 1X ONCE MC ; Start 11/26/16 at 09:30; Stop 11/26/16 at 09 :30; Status DC Enoxaparin Sodium (Lovenox Per Pharmacy Prophylaxis Dosing) 1 each PRN DAILY PRN MC SEE COMMENTS; Start 11/25/16 at 08:45; Status UNV Chlorhexidine Gluconate 15 ml 15 ml BID MM Last administered on 11/26/16 08:37 ; Start 11/25/16 at 21:00; Stop 11/26/16 at 17:49; Status DC Magnesium Sulfate/ Dextrose 50 ml @ 25 mls/hr PRN DAILY PRN IV for Mag < 1.7 on am labs Last administered on 11/26/16 05:29; Start 11/25/16 at 09:45; Stop 11/27/16 at 08:47; Status DC Magnesium Sulfate/ Dextrose 50 ml @ 25 mls/hr PRN DAILY PRN IV for Mag < 1.7 on am labs; Start 11/25/16 at 09:45; Status UNV Sodium Chloride 500 ml @ 0 mls/hr QID PRN IV UO< 30cc/hr over previous 6hrs Last administered on 11/25/16 10:54; Start 11/25/16 at 09:45; Stop 11/27/16 at 11:25; Status DC Magnesium Sulfate/ Dextrose (Magnesium Sulfate PREMIX 2GM) 50 ml @ 25 mls/hr 1X ONCE IV Last administered on 11/25/16 13:28; Start 11/25/16 at 12:30; Stop 11/25/16 at 14:29; Status DC Lidocaine/Sodium Bicarbonate 20 ml 20 ml STK-MED ONCE IJ ; Start 11/25/16 at 12: 35; Stop 11/25/16 at 12:36; Status DC Heparin Sodium/ Sodium Chloride 500 ml @ As Directed STK-MED ONCE .ROUTE ; Start 11/25/16 at 12:35; Stop 11/25/16 at 12:36; Status DC Lidocaine/Sodium Bicarbonate (Buffered Lidocaine 1%) 3 ml 1X ONCE IJ Last administered on 11/25/16 13:15; Start 11/25/16 at 13:15; Stop 11/25/16 at 13:16 ; Status DC Heparin Sodium/ Sodium Chloride 60 unit 1X ONCE IV Last administered on 13:16; Start 11/25/16 at 13:15; Stop 11/25/16 at 13:16; Status DC Amiodarone HCl (Cordarone) 450 mg STK-MED ONCE .ROUTE ; Start 11/25/16 at 12:00 ; Stop 11/25/16 at 14:56; Status DC Epinephrine HCl (Adrenalin) 30 mg STK-MED ONCE .ROUTE ; Start 11/25/16 at 12:00 ; Stop 11/25/16 at 14:56; Status DC Atropine Sulfate 1.5 mg STK-MED ONCE .ROUTE ; Start 11/25/16 at 12:00; Stop at 14:56; Status DC Epinephrine HCl 4 mg STK-MED ONCE .ROUTE ; Start 11/25/16 at 12:00; Stop at 14:56; Status DC Sodium Bicarbonate 150 meq 150 meq STK-MED ONCE .ROUTE ; Start 11/25/16 at 12:00 ; Stop 11/25/16 at 14:56; Status DC Midazolam HCl (Versed 100mg/ 100ml Premix) 100 ml @ 0 mls/hr CONT PRN IV SEE I/ O RECORD; Start 11/25/16 at 23:30; Stop 11/26/16 at 17:49; Status DC Insulin Aspart (Novolog) 0-7 UNITS TIDWMEALS SQ Last administered on 11/27/16 19:43; Start 11/26/16 at 08:00; Stop 11/28/16 at 01:01; Status DC Dextrose 12.5 gm PRN Q15MIN PRN IV SEE COMMENTS; Start 11/25/16 at 23:30; Stop 12/05/16 at 14:19; Status DC Acetaminophen 650 mg 650 mg PRN Q6HRS PRN ND MILD PAIN / TEMP Last administered on 11/28/16 04:19; Start 11/25/16 at 23:30; Stop 12/02/16 at 13:29 ; Status DC Potassium Chloride 50 ml @ 50 mls/hr Q1H IV Last administered on 11/26/16 11: 23; Start 11/26/16 at 10:30; Stop 11/26/16 at 12:29; Status DC Sodium Bicarbonate/ Sterile Water 1,100 ml @ 100 mls/hr Q11H IV Last administered on 11/27/16 00:56; Start 11/26/16 at 13:00; Stop 11/27/16 at 11:25 ; Status DC Info 1 each 1 each PRN DAILY PRN MC SEE COMMENTS Last administered on 12/10/16 14:46; Start 11/26/16 at 12:45 Calcium Chloride/ Sodium Chloride (Iv Sodium Chloride 0.9% 100ml) 120 ml @ 240 mls/hr 1X ONCE IV Last administered on 11/26/16 13:22; Start 11/26/16 at 13: 15; Stop 11/26/16 at 13:44; Status DC Ondansetron HCl 4 mg 4 mg PRN Q6HRS PRN IV NAUSEA/VOMITING Last administered on 12/03/16 21:17; Start 11/26/16 at 13:45; Stop 12/04/16 at 06:30; Status DC Sodium Chloride/ Potassium Chloride/ Magnesium Sulfate/ Calcium Gluconate/ Multivitamins/ Chromium/Copper/ Manganese/Seleni/ Zn/Total Parenteral Nutrition/ Amino Acids/Dextrose/ Fat Emulsion Intravenous (Sodium Chloride/ Infuvite Adult / Multitrace-5 Conc/ Tpn - Tpn Fluid/ Trophami... 1,594.468 ml @ 66.436 m... TPN CONT IV Last administered on 11/26/16 21:27; Start 11/26/16 at 22:00; Stop 11/27/16 at 21:59; Status DC Albuterol Sulfate 2.5 mg 2.5 mg 1X ONCE NEB Last administered on 11/27/16 07: 21; Start 11/27/16 at 06:45; Stop 11/27/16 at 06:46; Status DC Magnesium Sulfate/ Dextrose 50 ml @ 25 mls/hr PRN DAILY PRN IV for Mag < 1.7 on am labs; Start 11/27/16 at 08:45 Sodium Chloride 90 meq/Potassium Chloride 50 meq/ Magnesium Sulfate 10 meq/ Calcium Gluconate 10 meq/ Multivitamins 10 ml/Chromium/ Copper/Manganese/ Seleni /Zn 1 ml/ Total Parenteral Nutrition/Amino Acids/Dextrose/ Fat Emulsion Intravenous 1,594.468 ml @ 66.436 m... TPN CONT IV ; Start 11/27/16 at 22:00; Stop 11/28/16 at 21:59; Status Cancel Potassium Chloride/ Magnesium Sulfate/ Calcium Gluconate/ Multivitamins/ Chromium/Copper/ Manganese/Seleni/ Zn/Total Parenteral Nutrition/Amino Acids/ Dextrose/ Fat Emulsion Intravenous (Infuvite Adult/ Multitrace-5 Conc/ Tpn - Tpn Fluid/ Trophamine/ Dextrose 70%-Water Iv So... 1,512 ml @ 63 mls/hr TPN CONT IV Last administered on 11/27/16 21:22; Start 11/27/16 at 22:00; Stop at 21:59; Status DC Nitroglycerin 0.4 mg 0.4 mg STK-MED ONCE SL Last administered on 11/27/16 11: 26; Start 11/27/16 at 11:16; Stop 11/27/16 at 11:17; Status DC Albumin Human (Albuminar) 100 ml @ 100 mls/hr TID IV Last administered on 11/29 08:56; Start 11/27/16 at 12:00; Stop 11/29/16 at 09:59; Status DC Sodium Bicarbonate 50 meq 1X ONCE IV Last administered on 11/27/16 13:24; Start 11/27/16 at 12:45; Stop 11/27/16 at 12:46; Status DC Hydralazine HCl (Apresoline) 10 mg PRN Q4HRS PRN IVP ELEVATED BP, SEE COMMENTS Last administered on 12/03/16 20:18; Start 11/27/16 at 12:45 Metoprolol Tartrate (Lopressor) 5 mg Q6HRS IVP Last administered on 11/27/16 15:40; Start 11/27/16 at 15:30; Stop 11/27/16 at 19:11; Status DC Metoprolol Tartrate 5 mg 5 mg Q6HRS@04,10,16,22 IVP Last administered on 04:30; Start 11/27/16 at 22:00 Nicardipine HCl/ Sodium Chloride (Cardene/Iv Sodium Chloride 0.9% 250ml) 270 ml @ 0 mls/hr CONT PRN IV SEE I/O RECORD Last administered on 11/28/16 01:13; Start 11/27/16 at 20:45; Stop 12/05/16 at 09:17; Status DC Vancomycin HCl 1 each 1 each PRN DAILY PRN MC SEE COMMENTS Last administered on 11/27/16 21:38; Start 11/27/16 at 22:00; Stop 11/28/16 at 08:30; Status DC Vancomycin HCl 2 gm/Sodium Chloride 500 ml @ 250 mls/hr 1X ONCE IV Last administered on 11/27/16 22:57; Start 11/27/16 at 22:00; Stop 11/27/16 at 23:59 ; Status DC Vancomycin HCl/ Sodium Chloride (Iv Sodium Chloride 0.9% 500ml Bag) 500 ml @ 250 mls/hr Q24H IV ; Start 11/28/16 at 22:00; Stop 11/28/16 at 22:00; Status DC Vancomycin HCl 1 each 1X ONCE MC ; Start 11/29/16 at 21:30; Stop 11/29/16 at 21 :30; Status DC Insulin Aspart (Novolog) 0-7 UNITS Q6HRS SQ Last administered on 12/10/16 17:48 ; Start 11/28/16 at 01:00 Linezolid 600 mg 600 mg BID PO ; Start 11/28/16 at 09:00; Stop 11/28/16 at 19:45 ; Status DC Pantoprazole Sodium/Sodium Chloride (Protonix Iv/Iv Sodium Chloride 0.9% 100ml) 100 ml @ 10 mls/hr Q10H PRN IV . Last administered on 12/01/16 13:01; Start 11/28/16 at 10:00; Stop 12/01/16 at 15:59; Status DC Ipratropium Eureka (Atrovent) 0.5 mg RTQID NEB Last administered on 12/11/16 06:57; Start 11/28/16 at 12:00 Budesonide (Pulmicort) 0.5 mg RTBID NEB Last administered on 12/06/16 07:36; Start 11/28/16 at 20:00; Stop 12/06/16 at 18:19; Status DC Furosemide 40 mg 40 mg 1X ONCE IVP Last administered on 11/28/16 12:15; Start 11/28/16 at 12:15; Stop 11/28/16 at 12:16; Status DC Potassium Chloride/ Magnesium Sulfate/ Calcium Gluconate/ Multivitamins/ Chromium/Copper/ Manganese/Seleni/ Zn/Total Parenteral Nutrition/Amino Acids/ Dextrose/ Fat Emulsion Intravenous (Calcium Gluconate/ Infuvite Adult/ Multitrace-5 Conc/ Tpn - Tpn Fluid/ Trophami... 1,512 ml @ 63 mls/hr TPN CONT IV Last administered on 11/28/16 21:18; Start 11/28/16 at 22:00; Stop at 21:59; Status DC Lidocaine/Sodium Bicarbonate (Buffered Lidocaine 1%) 3 ml 1X ONCE IJ Last administered on 11/28/16 15:45; Start 11/28/16 at 14:45; Stop 11/28/16 at 14:46 ; Status DC Heparin Sodium/ Sodium Chloride 60 unit 1X ONCE IV Last administered on 15:45; Start 11/28/16 at 14:45; Stop 11/28/16 at 14:46; Status DC Heparin Sodium (Porcine) 2500 unit 2,500 unit 1X ONCE INT CAT Last administered on 11/28/16 15:45; Start 11/28/16 at 14:45; Stop 11/28/16 at 14:46 ; Status DC Linezolid 300 ml @ 300 mls/hr Q12HR IV Last administered on 12/01/16 21:13; Start 11/28/16 at 21:00; Stop 12/02/16 at 08:23; Status DC Potassium Chloride/ Potassium Acetate/ Magnesium Sulfate/ Calcium Gluconate/ Multivitamins/ Chromium/Copper/ Manganese/Seleni/ Zn/Total Parenteral Nutrition/ Amino Acids/Dextrose/ Fat Emulsion Intravenous (Calcium Gluconate/ Infuvite Adult/ Multitrace-5 Conc/ Tpn - Tpn Flu... 1,512 ml @ 63 mls/hr TPN CONT IV Last administered on 11/29/16 21:54; Start 11/29/16 at 22:00; Stop 11/30/16 at 21:59; Status DC Iohexol (Omnipaque 300 Mg/ml) 100 ml STK-MED ONCE .ROUTE ; Start 11/29/16 at 09: 12; Stop 11/29/16 at 09:13; Status DC Lidocaine/Sodium Bicarbonate 20 ml 20 ml STK-MED ONCE IJ ; Start 11/29/16 at 09: 12; Stop 11/29/16 at 09:13; Status DC Heparin Sodium/ Sodium Chloride 500 ml @ As Directed STK-MED ONCE .ROUTE ; Start 11/29/16 at 09:12; Stop 11/29/16 at 09:13; Status DC Lidocaine/Sodium Bicarbonate (Buffered Lidocaine 1%) 2 ml 1X ONCE IJ Last administered on 11/29/16 10:22; Start 11/29/16 at 10:00; Stop 11/29/16 at 10:15 ; Status DC Iohexol (Omnipaque 300 Mg/ml) 30 ml 1X ONCE IART Last administered on 10:22; Start 11/29/16 at 10:00; Stop 11/29/16 at 10:15; Status DC Heparin Sodium/ Sodium Chloride 1,000 unit 1X ONCE IV Last administered on 10:21; Start 11/29/16 at 10:00; Stop 11/29/16 at 10:15; Status DC Info 1 each 1 each PRN DAILY PRN MC SEE COMMENTS; Start 11/29/16 at 10:30; Stop 12/01/16 at 10:29; Status DC Heparin Sodium/ Dextrose 500 ml @ 0 mls/hr CONT PRN IV SEE I/O RECORD; Start at 15:15; Status UNV Heparin Sodium/ Dextrose 500 ml @ 0 mls/hr CONT PRN IV SEE I/O RECORD Last administered on 12/04/16 19:23; Start 11/29/16 at 15:15; Stop 12/05/16 at 08:51 ; Status DC Nitroglycerin/ Dextrose 250 ml @ 0 mls/hr CONT PRN IV SEE I/O RECORD Last administered on 11/30/16 10:53; Start 11/30/16 at 10:45; Stop 12/05/16 at 09:17 ; Status DC Potassium Acetate/ Potassium Phosphate/ Magnesium Sulfate/ Calcium Gluconate/ Multivitamins/ Chromium/Copper/ Manganese/Seleni/ Zn/Insulin Human Regular/ Total Parenteral Nutrition/Amino Acids/Dextrose/ Fat Emulsion Intravenous ( Potassium Phosphate/Calcium Gluconate/ Infuvite Asim... 1,472.1 ml @ 63 mls/hr TPN CONT IV Last administered on 11/30/16 21:31; Start 11/30/16 at 22:00; Stop 12/01/16 at 21:21; Status DC Furosemide 40 mg 40 mg 1X ONCE IVP Last administered on 11/30/16 15:02; Start 11/30/16 at 15:00; Stop 11/30/16 at 15:01; Status DC Iron Sucrose/ Sodium Chloride (Venofer/Iv Sodium Chloride 0.9% 250ml) 275 ml @ 78.571 mls/ hr 1X ONCE IV Last administered on 12/01/16 09:58; Start at 09:00; Stop 12/01/16 at 12:29; Status DC Insulin Detemir (Levemir) 12 units QHS SQ Last administered on 12/03/16 21:28 ; Start 12/01/16 at 21:00; Stop 12/04/16 at 16:49; Status DC Info 1 each 1 each PRN DAILY PRN MC SEE COMMENTS Last administered on 12:18; Start 12/01/16 at 10:45; Stop 12/05/16 at 09:17; Status DC Potassium Acetate/ Potassium Phosphate/ Magnesium Sulfate/ Calcium Gluconate/ Multivitamins/ Chromium/Copper/ Manganese/Seleni/ Zn/Insulin Human Regular/ Total Parenteral Nutrition/Amino Acids/Dextrose/ Fat Emulsion Intravenous ( Potassium Phosphate/Calcium Gluconate/ Infuvite Asim... 1,512 ml @ 64.708 mls/ hr TPN CONT IV Last administered on 12/01/16 22:20; Start 12/01/16 at 22:00; Stop 12/02/16 at 21:21; Status DC Pantoprazole Sodium (Protonix Vial) 40 mg DAILYAC IVP Last administered on 12/04 10:37; Start 12/02/16 at 07:30; Stop 12/05/16 at 06:27; Status DC Acetaminophen 650 mg 650 mg 1X PRN PRN PO PRN prior to blood transfusion; Start 12/02/16 at 06:30; Stop 12/03/16 at 06:29; Status DC Potassium Acetate/ Potassium Phosphate/ Magnesium Sulfate/ Calcium Gluconate/ Multivitamins/ Chromium/Copper/ Manganese/Seleni/ Zn/Insulin Human Regular/ Total Parenteral Nutrition/Amino Acids/Dextrose/ Fat Emulsion Intravenous ( Potassium Phosphate/Calcium Gluconate/ Infuvite Asim... 1,512 ml @ 64.708 mls/ hr TPN CONT IV Last administered on 12/02/16 21:46; Start 12/02/16 at 22:00; Stop 12/03/16 at 21:21; Status DC Furosemide (Lasix) 40 mg DAILY IVP Last administered on 12/03/16 08:47; Start 12/02/16 at 12:30; Stop 12/04/16 at 06:30; Status DC Acetaminophen (Acetaminophen Supp) 650 mg PRN Q6HRS PRN ND MILD PAIN / TEMP; Start 12/02/16 at 13:30; Stop 12/02/16 at 13:36; Status DC Acetaminophen 650 mg 650 mg PRN Q6HRS PRN ND MILD PAIN / TEMP; Start 12/02/16 at 13:45 Potassium Acetate/ Potassium Phosphate/ Magnesium Sulfate/ Calcium Gluconate/ Multivitamins/ Chromium/Copper/ Manganese/Seleni/ Zn/Insulin Human Regular/ Total Parenteral Nutrition/Amino Acids/Dextrose/ Fat Emulsion Intravenous ( Potassium Phosphate/Calcium Gluconate/ Infuvite Asim... 1,512 ml @ 63 mls/hr TPN CONT IV Last administered on 12/03/16 21:05; Start 12/03/16 at 22:00; Stop 12/04/16 at 21:59; Status DC Fentanyl Citrate (Fentanyl 2ml Vial) 25 mcg PRN Q30MIN PRN IV SED; Start at 06:29; Stop 12/05/16 at 09:17; Status DC Ondansetron HCl (Zofran) 4 mg PRN Q6HRS PRN IV NAUSEA/VOMITING; Start 12/04/16 at 06:30 Furosemide (Lasix) 40 mg DAILY IVP Last administered on 12/06/16 10:20; Start 12/04/16 at 06:30; Stop 12/06/16 at 15:12; Status DC Lidocaine HCl 20 ml 20 ml [employer] ONCE .ROUTE ; Start 12/04/16 at 07:02; Stop at 07:03; Status DC Heparin Sodium/ Sodium Chloride 1,500 ml @ As Directed STK-MED ONCE .ROUTE ; Start 12/04/16 at 07:02; Stop 12/04/16 at 07:03; Status DC Iodixanol (Visipaque 320) 100 ml STK-MED ONCE .ROUTE ; Start 12/04/16 at 07:02; Stop 12/04/16 at 07:03; Status DC Nitroglycerin (Nitroglycerin) 200 mcg STK-MED ONCE .ROUTE ; Start 12/04/16 at 07 :05; Stop 12/04/16 at 07:06; Status DC Verapamil HCl (Verapamil) 5 mg STK-MED ONCE .ROUTE ; Start 12/04/16 at 07:05; Stop 12/04/16 at 07:06; Status DC Midazolam HCl (Versed) 2 mg STK-MED ONCE .ROUTE ; Start 12/04/16 at 07:05; Stop 12/04/16 at 07:06; Status DC Fentanyl Citrate (Fentanyl 2ml Vial) 100 mcg STK-MED ONCE .ROUTE ; Start at 07:05; Stop 12/04/16 at 07:06; Status DC Heparin Sodium (Porcine) 10,000 unit STK-MED ONCE .ROUTE ; Start 12/04/16 at 07: 05; Stop 12/04/16 at 07:06; Status DC Nitroglycerin (Nitroglycerin) 200 mcg STK-MED ONCE .ROUTE ; Start 12/04/16 at 07 :17; Stop 12/04/16 at 07:18; Status DC Verapamil HCl (Verapamil) 5 mg STK-MED ONCE .ROUTE ; Start 12/04/16 at 07:18; Stop 12/04/16 at 07:19; Status DC Nitroglycerin (Nitroglycerin) 200 mcg 1X ONCE IART Last administered on 07:42; Start 12/04/16 at 07:45; Stop 12/04/16 at 07:46; Status DC Verapamil HCl (Verapamil) 2.5 mg 1X ONCE IART Last administered on 12/04/16 07:43; Start 12/04/16 at 07:45; Stop 12/04/16 at 07:46; Status DC Heparin Sodium/ Sodium Chloride 1,000 unit 1X ONCE IART Last administered on 07:43; Start 12/04/16 at 07:45; Stop 12/04/16 at 07:46; Status DC Midazolam HCl (Versed) 0.5 mg 1X ONCE IV Last administered on 12/04/16 07:44 ; Start 12/04/16 at 07:45; Stop 12/04/16 at 07:46; Status DC Fentanyl Citrate (Fentanyl 2ml Vial) 25 mcg 1X ONCE IV Last administered on 07:44; Start 12/04/16 at 07:45; Stop 12/04/16 at 07:46; Status DC Iodixanol (Visipaque 320) 100 ml 1X ONCE IART Last administered on 12/04/16 07:42; Start 12/04/16 at 07:45; Stop 12/04/16 at 07:46; Status DC Lidocaine HCl 20 ml 1X ONCE IJ Last administered on 12/04/16 07:43; Start at 07:45; Stop 12/04/16 at 07:46; Status DC Info 1 each 1 each PRN DAILY PRN MC SEE COMMENTS; Start 12/04/16 at 07:45; Stop 12/06/16 at 07:44; Status DC Potassium Acetate/ Potassium Phosphate/ Magnesium Sulfate/ Calcium Gluconate/ Multivitamins/ Chromium/Copper/ Manganese/Seleni/ Zn/Insulin Human Regular/ Total Parenteral Nutrition/Amino Acids/Dextrose/ Fat Emulsion Intravenous ( Potassium Phosphate/Calcium Gluconate/ Infuvite Asim... 1,512 ml @ 63 mls/hr TPN CONT IV Last administered on 12/04/16 22:47; Start 12/04/16 at 22:00; Stop 12/05/16 at 21:59; Status DC Lidocaine HCl 20 ml 20 ml STK-MED ONCE .ROUTE ; Start 12/04/16 at 12:59; Stop at 13:00; Status DC Heparin Sodium/ Sodium Chloride 1,000 ml @ As Directed STK-MED ONCE .ROUTE ; Start 12/04/16 at 12:59; Stop 12/05/16 at 08:51; Status DC Iodixanol (Visipaque 320) 100 ml STK-MED ONCE .ROUTE ; Start 12/04/16 at 12:59; Stop 12/04/16 at 13:00; Status DC Insulin Detemir (Levemir) 25 units QHS SQ ; Start 12/04/16 at 21:00; Stop at 21:00; Status DC Insulin Detemir (Levemir) 20 units QHS SQ Last administered on 12/10/16 19:48; Start 12/04/16 at 21:00 Morphine Sulfate 2 mg PRN Q2HR PRN IV PAIN Last administered on 12/10/16 21:53 ; Start 12/04/16 at 19:15 Morphine Sulfate 4 mg PRN Q2HR PRN IV PAIN; Start 12/04/16 at 19:15; Stop 12/05 at 09:17; Status DC Pantoprazole Sodium (Protonix Vial) 40 mg DAILYAC IVP Last administered on 08:49; Start 12/05/16 at 06:27 Verapamil HCl (Verapamil) 5 mg STK-MED ONCE .ROUTE ; Start 12/04/16 at 07:30; Stop 12/05/16 at 08:38; Status DC Enoxaparin Sodium (Lovenox Per Pharmacy Treatment Dosing) 1 each PRN DAILY PRN MC SEE COMMENTS; Start 12/05/16 at 09:00; Stop 12/09/16 at 13:25; Status DC Enoxaparin Sodium (Lovenox 100mg Syringe) 100 mg Q12HR SQ Last administered on 12/10/16 19:53; Start 12/05/16 at 09:00 Info 1 each 1 each PRN DAILY PRN MC SEE COMMENTS Last administered on 12/07/16 12:19; Start 12/05/16 at 10:15 Potassium Acetate/ Potassium Phosphate/ Magnesium Sulfate/ Calcium Gluconate/ Multivitamins/ Chromium/Copper/ Manganese/Seleni/ Zn/Insulin Human Regular/ Total Parenteral Nutrition/Amino Acids/Dextrose/ Fat Emulsion Intravenous ( Potassium Phosphate/Calcium Gluconate/ Infuvite Asim... 1,512 ml @ 63 mls/hr TPN CONT IV Last administered on 12/05/16 21:14; Start 12/05/16 at 22:00; Stop 12/06/16 at 21:59; Status DC Barium Sulfate (Varibar Thin Liquid Apple) 148 gm 1X ONCE PO Last administered on 12/05/16 13:56; Start 12/05/16 at 14:00; Stop 12/05/16 at 14:01 ; Status DC Dextrose 12.5 gm 12.5 gm PRN Q15MIN PRN IV SEE COMMENTS; Start 12/05/16 at 14: 19 Potassium Acetate/ Potassium Phosphate/ Magnesium Sulfate/ Calcium Gluconate/ Multivitamins/ Chromium/Copper/ Manganese/Seleni/ Zn/Insulin Human Regular/ Total Parenteral Nutrition/Amino Acids/Dextrose/ Fat Emulsion Intravenous ( Potassium Phosphate/Calcium Gluconate/ Infuvite Asim... 1,512 ml @ 63 mls/hr TPN CONT IV Last administered on 12/06/16 20:49; Start 12/06/16 at 22:00; Stop 12/07/16 at 21:59; Status DC Furosemide 20 mg 20 mg DAILY IVP Last administered on 12/08/16 08:37; Start 12/07/16 at 09:00; Stop 12/08/16 at 09:24; Status DC Potassium Acetate/ Potassium Phosphate/ Magnesium Sulfate/ Calcium Gluconate/ Multivitamins/ Chromium/Copper/ Manganese/Seleni/ Zn/Insulin Human Regular/ Total Parenteral Nutrition/Amino Acids/Dextrose/ Fat Emulsion Intravenous ( Potassium Phosphate/Calcium Gluconate/ Infuvite Asim... 1,512 ml @ 63 mls/hr TPN CONT IV Last administered on 12/07/16 20:23; Start 12/07/16 at 22:00; Stop 12/08/16 at 21:59; Status DC Lorazepam 0.5 mg 0.5 mg PRN Q6HRS PRN IV ANXIETY / AGITATION Last administered on 12/10/16 21:54; Start 12/07/16 at 16:30 Dextrose 1,000 ml @ 100 mls/hr Q10H IV Last administered on 12/08/16 09:59; Start 12/08/16 at 09:30; Stop 12/08/16 at 19:29; Status DC Potassium Acetate/ Potassium Phosphate/ Magnesium Sulfate/ Calcium Gluconate/ Multivitamins/ Chromium/Copper/ Manganese/Seleni/ Zn/Insulin Human Regular/ Total Parenteral Nutrition/Amino Acids/Dextrose/ Fat Emulsion Intravenous ( Potassium Phosphate/Calcium Gluconate/ Infuvite Asim... 2,400 ml @ 100 mls/hr TPN CONT IV Last administered on 12/08/16 21:20; Start 12/08/16 at 22:00; Stop 12/09/16 at 21:59; Status DC Temazepam 15 mg 15 mg PRN QHS PRN PO INSOMNIA; Start 12/09/16 at 11:30 Potassium Acetate/ Potassium Phosphate/ Magnesium Sulfate/ Calcium Gluconate/ Multivitamins/ Chromium/Copper/ Manganese/Seleni/ Zn/Insulin Human Regular/ Total Parenteral Nutrition/Amino Acids/Dextrose/ Fat Emulsion Intravenous ( Potassium Phosphate/Calcium Gluconate/ Infuvite Asim... 2,400 ml @ 100 mls/hr TPN CONT IV Last administered on 12/09/16 21:27; Start 12/09/16 at 22:00; Stop 12/10/16 at 21:59; Status DC Lorazepam 1 mg 1 mg 1X ONCE IV Last administered on 12/09/16 21:29; Start 12/09 at 21:30; Stop 12/09/16 at 21:31; Status DC Potassium Acetate/ Potassium Phosphate/ Magnesium Sulfate/ Calcium Gluconate/ Multivitamins/ Chromium/Copper/ Manganese/Seleni/ Zn/Insulin Human Regular/ Total Parenteral Nutrition/Amino Acids/Dextrose/ Fat Emulsion Intravenous ( Potassium Phosphate/Calcium Gluconate/ Infuvite Asim... 2,400 ml @ 100 mls/hr TPN CONT IV Last administered on 12/10/16 22:08; Start 12/10/16 at 22:00; Stop 12/11/16 at 21:59 Lidocaine/Sodium Bicarbonate (Buffered Lidocaine 1%) 20 ml STK-MED ONCE IJ ; Start 12/10/16 at 14:30; Stop 12/10/16 at 14:31; Status DC Naloxone HCl (Narcan) 0.4 mg STK-MED ONCE .ROUTE ; Start 12/10/16 at 14:45; Stop 12/10/16 at 14:46; Status DC Flumazenil (Romazicon) 0.5 mg STK-MED ONCE IV ; Start 12/10/16 at 14:45; Stop 12/10/16 at 14:46; Status DC Fentanyl Citrate (Fentanyl 2ml Vial) 100 mcg STK-MED ONCE .ROUTE ; Start at 14:45; Stop 12/10/16 at 14:46; Status DC Midazolam HCl (Versed) 2 mg STK-MED ONCE .ROUTE ; Start 12/10/16 at 14:45; Stop 12/10/16 at 14:46; Status DC Lidocaine/Sodium Bicarbonate (Buffered Lidocaine 1%) 20 ml 1X ONCE IJ Last administered on 12/10/16 15:15; Start 12/10/16 at 15:15; Stop 12/10/16 at 15:16; Status DC Midazolam HCl (Versed) 2 mg 1X ONCE IV Last administered on 12/10/16 15:20; Start 12/10/16 at 15:15; Stop 12/10/16 at 15:16; Status DC Fentanyl Citrate (Fentanyl 2ml Vial) 100 mcg 1X ONCE IV Last administered on 15:20; Start 12/10/16 at 15:15; Stop 12/10/16 at 15:16; Status DC Vitals/I & O Vital Sign - Last 24 Hours 12/10/16 12/10/16 12/10/16 12/10/16 08:49 11:00 11:00 14:58 Temp 97.7 97.7 Pulse 88 96 95 Resp 18 14 B/P 147/72 130/78 Pulse Ox 98 97 95 O2 Delivery Nasal Cannula Nasal Cannula O2 Flow Rate 1.0 1.0 2.0 12/10/16 12/10/16 12/10/16 12/10/16 15:03 15:04 15:09 15:16 Pulse 95 95 100 95 Resp 14 14 14 14 Pulse Ox 95 95 94 95 O2 Delivery Nasal Cannula Nasal Cannula Nasal Cannula Nasal Cannula O2 Flow Rate 2.0 2.0 2.0 2.0 12/10/16 12/10/16 12/10/16 12/10/16 15:20 16:00 16:00 16:10 Temp 98.1 98.1 Pulse 90 Resp 14 16 16 B/P 149/79 Pulse Ox 93 99 99 O2 Delivery Nasal Cannula Nasal Cannula Nasal Cannula O2 Flow Rate 2.0 1.0 1.0 1.0 12/10/16 12/10/16 12/10/16 12/10/16 16:30 16:36 16:37 19:20 Temp 98.3 97.7 98.3 97.7 Pulse 93 93 94 Resp 18 18 20 B/P 150/83 150/83 142/72 Pulse Ox 96 96 97 O2 Delivery Nasal Cannula Nasal Cannula Room Air O2 Flow Rate 1.0 1.0 12/10/16 12/10/16 12/10/16 12/10/16 19:35 19:35 20:44 21:53 Resp 20 20 Pulse Ox 96 95 95 O2 Delivery Nasal Cannula Nasal Cannula Nasal Cannula Nasal Cannula O2 Flow Rate 1.0 1.0 1.0 1.0 12/10/16 12/10/16 12/10/16 12/11/16 21:54 22:23 23:15 03:20 Temp 98.4 98.4 98.4 98.4 Pulse 94 85 87 Resp 18 20 18 B/P 142/72 130/62 132/65 Pulse Ox 95 97 96 O2 Delivery Nasal Cannula Nasal Cannula Nasal Cannula O2 Flow Rate 1.0 1.0 1.0 12/11/16 12/11/16 12/11/16 12/11/16 04:30 06:58 07:00 08:38 Temp 98.0 98.0 Pulse 90 91 Resp 20 B/P 132/65 131/73 Pulse Ox 97 90 O2 Delivery Nasal Cannula Nasal Cannula Nasal Cannula O2 Flow Rate 1.0 1.0 1.0 Intake and Output 12/10/16 12/10/16 12/11/16 15:00 23:00 07:00 Intake Total 900 ml 1130 ml Output Total 2250 ml 1450 ml Balance -1350 ml -320 ml OLESYA COVARRUBIAS MD Dec 11, 2016 08:44
[2016-12-11] MEDS: ASPIRIN 300 MG SUPP.RECT PR SCH (09:00)
--- NOTE | 2016-12-11 09:39 | PDOC ---
SUBJECTIVE ROS HAMILTON/ CK DIII Just worked with PT and ambulated with walker CVS: no Orthopnea, no CP RESP: no SOB, min ZARATE(fatigue < dyspnea due to splinting from CT) GI: no Nausea, no Vomiting : no Dysuria, no Urgency OBJECTIVE Vital Signs Vital Signs Date Time Temp Pulse Resp B/P Pulse Ox O2 Delivery O2 Flow Rate FiO2 12/11/16 08:38 Nasal Cannula 1.0 12/11/16 07:00 98.0 91 20 131/73 90 98.0 I & 0 Intake and Output 12/11/16 07:00 Intake Total 2030 ml Output Total 3700 ml Balance -1670 ml IV Total 2030 ml Output Urine Total 2800 ml Chest Tube Drainage Total 900 ml PHYSICAL EXAM Physical Exam General Appearance: AAO x 3 In no Distress; lying almost flat in bed Eyes: VIsion Unchanged Conjunctiva Normal EN: No EN Drainage Mucous Memb. moist Neck: no JVD no JVP Supple no Thyromegaly CVS: S1 S2 no audible Murmur No Gallop No Rub Tr Edema Resp: rare basal Rales no Rhonchi no Acc. Muscle use GI: BS +ve NO Bruit Non Tender Non Distended : no CVA tenderness; no Suprapubic Tenderness Assessment & Plan HAMILTON: Creat stable ? CKD - Will await a new baseline, Is this his new baseline? Pl Eff - s/p CT placement - doubt related to fl overload. Nutrition - TPN ongoing for now until he can pass swallow eval anemia - defer to Dr Michel Urinary retention - URO consulted, await intake COMMENT/RELEVANT DATA Meds Current Medications Medications (Trade) Dose Ordered Sig/Kika Start Time Stop Time Status Last Admin Dose Admin Acetaminophen (Acetaminophen Supp) 650 mg PRN Q6HRS PRN 12/02/16 13:45 Acetaminophen (Tylenol) 650 mg 1X PRN PRN 12/02/16 06:30 12/03/16 06:29 DC Acetaminophen 650 mg 650 mg PRN Q6HRS PRN 11/25/16 23:30 12/02/16 13:29 DC 11/28/16 04:19 650 MG Albumin Human (Albuminar) 100 ml @ 100 mls/hr TID 11/27/16 12:00 11/29/16 09:59 DC 11/29/16 08:56 100 MLS/HR Albuterol Sulfate 2.5 mg 2.5 mg 1X ONCE 11/27/16 06:45 11/27/16 06:46 DC 11/27/16 07:21 2.5 MG Amiodarone HCl (Cordarone) 450 mg STK-MED ONCE 11/25/16 12:00 11/25/16 14:56 DC Aspirin (Aspirin) 300 mg DAILY 11/24/16 09:00 12/08/16 09:59 300 MG Atropine Sulfate 1.5 mg STK-MED ONCE 11/25/16 12:00 11/25/16 14:56 DC Barium Sulfate (Varibar Thin Liquid Apple) 148 gm 1X ONCE 12/05/16 14:00 12/05/16 14:01 DC 12/05/16 13:56 148 GM Budesonide 0.5 mg 0.5 mg RTBID 11/28/16 20:00 12/06/16 18:19 DC 12/06/16 07:36 0.5 MG Calcium Chloride/ Sodium Chloride (Iv Sodium Chloride 0.9% 100ml) 120 ml @ 240 mls/hr 1X ONCE 11/26/16 13:15 11/26/16 13:44 DC 11/26/16 13:22 240 MLS/HR Chlorhexidine Gluconate 15 ml 15 ml BID 11/25/16 21:00 11/26/16 17:49 DC 11/26/16 08:37 15 ML Dextrose 1,000 ml @ 100 mls/hr Q10H 12/08/16 09:30 12/08/16 19:29 DC 12/08/16 09:59 100 MLS/HR Dextrose (Dextrose 50%-Water Syringe) 12.5 gm PRN Q15MIN PRN 12/05/16 14:19 Enoxaparin Sodium (Lovenox 100mg Syringe) 100 mg Q12HR 12/05/16 09:00 12/11/16 08:40 DC 12/10/16 19:53 100 MG Enoxaparin Sodium (Lovenox Per Pharmacy Prophylaxis Dosing) 1 each PRN DAILY PRN 11/25/16 08:45 UNV Enoxaparin Sodium (Lovenox Per Pharmacy Treatment Dosing) 1 each PRN DAILY PRN 12/05/16 09:00 12/09/16 13:25 DC Epinephrine HCl 4 mg STK-MED ONCE 11/25/16 12:00 11/25/16 14:56 DC Epinephrine HCl (Adrenalin) 30 mg STK-MED ONCE 11/25/16 12:00 11/25/16 14:56 DC Epinephrine HCl/ Sodium Chloride (Adrenalin/Iv Sodium Chloride 0.9% 250ml) 254 ml @ 0 mls/hr CONT PRN 11/24/16 07:30 11/27/16 08:25 DC 11/26/16 03:05 11.43 MLS/HR Famotidine (Pepcid) 20 mg QHS 11/24/16 21:00 11/28/16 09:46 DC 11/27/16 21:12 20 MG Fentanyl Citrate (Fentanyl 2ml Vial) 100 mcg 1X ONCE 12/10/16 15:15 12/10/16 15:16 DC 12/10/16 15:20 50 MCG Fentanyl Citrate 25 mcg 25 mcg PRN Q30MIN PRN 11/24/16 08:45 12/04/16 06:29 DC 11/30/16 17:24 25 MCG Flumazenil (Romazicon) 0.5 mg STK-MED ONCE 12/10/16 14:45 12/10/16 14:46 DC Furosemide (Lasix) 20 mg DAILY 12/07/16 09:00 12/08/16 09:24 DC 12/08/16 08:37 20 MG Furosemide 40 mg 40 mg 1X ONCE 11/30/16 15:00 11/30/16 15:01 DC 11/30/16 15:02 40 MG Heparin Sodium (Porcine) 10,000 unit STK-MED ONCE 12/04/16 07:05 12/04/16 07:06 DC Heparin Sodium (Porcine) 1500 unit 1,500 unit PRN Q6HRS PRN 11/24/16 16:45 11/28/16 17:12 DC 11/26/16 12:08 1,500 UNIT Heparin Sodium (Porcine) 2500 unit 2,500 unit 1X ONCE 11/28/16 14:45 11/28/16 14:46 DC 11/28/16 15:45 2,500 UNIT Heparin Sodium/ Dextrose 500 ml @ 0 mls/hr CONT PRN 11/29/16 15:15 12/05/16 08:51 DC 12/04/16 19:23 0 MLS/HR Heparin Sodium/ Sodium Chloride 1,000 ml @ As Directed STK-MED ONCE 12/04/16 12:59 12/05/16 08:51 DC Hydralazine HCl (Apresoline) 10 mg PRN Q4HRS PRN 11/27/16 12:45 12/03/16 20:18 10 MG Info (Anti-Coagulation Monitoring By Pharmacy) 1 each PRN DAILY PRN 12/05/16 10:15 12/07/16 12:19 1 EACH Info (Do NOT chart on this entry -- for MONITORING) 1 each PRN DAILY PRN 12/04/16 07:45 12/06/16 07:44 DC Info 1 ea 1 ea DAILY PRN 11/26/16 08:45 12/05/16 09:17 DC Info 1 each 1 each PRN DAILY PRN 11/29/16 10:30 12/01/16 10:29 DC Insulin Aspart (Novolog) 0-7 UNITS Q6HRS 11/28/16 01:00 12/10/16 17:48 3 UNITS Insulin Detemir (Levemir) 20 units QHS 12/04/16 21:00 12/10/16 19:48 20 UNITS Insulin Human Regular 150 unit/ Sodium Chloride 151.5 ml @ 9.16 mls/hr CONT PRN 11/24/16 09:30 11/27/16 08:25 DC 11/24/16 10:13 3.4 MLS/HR Iodixanol (Visipaque 320) 100 ml STK-MED ONCE 12/04/16 12:59 12/04/16 13:00 DC Iohexol (Omnipaque 300 Mg/ml) 30 ml 1X ONCE 11/29/16 10:00 11/29/16 10:15 DC 11/29/16 10:22 30 ML Ipratropium Corona (Atrovent) 0.5 mg RTQID 11/28/16 12:00 12/11/16 06:57 0.5 MG Iron Sucrose/ Sodium Chloride (Venofer/Iv Sodium Chloride 0.9% 250ml) 275 ml @ 78.571 mls/ hr 1X ONCE 12/01/16 09:00 12/01/16 12:29 DC 12/01/16 09:58 78.571 MLS/HR Lidocaine HCl 20 ml 1X ONCE 12/04/16 07:45 12/04/16 07:46 DC 12/04/16 07:43 20 ML Lidocaine HCl 20 ml 20 ml STK-MED ONCE 12/04/16 12:59 12/04/16 13:00 DC Lidocaine/Sodium Bicarbonate (Buffered Lidocaine 1%) 20 ml 1X ONCE 12/10/16 15:15 12/10/16 15:16 DC 12/10/16 15:15 3 ML Linezolid 300 ml @ 300 mls/hr Q12HR 11/28/16 21:00 12/02/16 08:23 DC 12/01/16 21:13 300 MLS/HR Linezolid 600 mg 600 mg BID 11/28/16 09:00 11/28/16 19:45 DC Lorazepam 0.5 mg 0.5 mg PRN Q6HRS PRN 12/07/16 16:30 12/10/16 21:54 0.5 MG Lorazepam 1 mg 1 mg 1X ONCE 12/09/16 21:30 12/09/16 21:31 DC 12/09/16 21:29 1 MG Magnesium Sulfate/ Dextrose 50 ml @ 25 mls/hr PRN DAILY PRN 11/27/16 08:45 Magnesium Sulfate/ Dextrose (Magnesium Sulfate PREMIX 2GM) 50 ml @ 25 mls/hr 1X ONCE 11/25/16 12:30 11/25/16 14:29 DC 11/25/16 13:28 25 MLS/HR Meperidine HCl (Demerol) 12.5 mg PRN Q30MIN PRN 11/24/16 08:45 11/24/16 22:21 DC 11/24/16 22:21 12.5 MG Metoprolol Tartrate (Lopressor) 5 mg Q6HRS 11/27/16 15:30 11/27/16 19:11 DC 11/27/16 15:40 5 MG Metoprolol Tartrate 5 mg 5 mg Q6HRS@04,10,16,22 11/27/16 22:00 12/11/16 04:30 5 MG Midazolam HCl (Versed 100mg/ 100ml Premix) 100 ml @ 0 mls/hr CONT PRN 11/25/16 23:30 11/26/16 17:49 DC Midazolam HCl (Versed) 2 mg 1X ONCE 12/10/16 15:15 12/10/16 15:16 DC 12/10/16 15:20 1 MG Morphine Sulfate 4 mg PRN Q2HR PRN 12/04/16 19:15 12/05/16 09:17 DC Multi-Ingred Cream/Lotion/Oil/ Oint (Artificial Tears Eye Oint) 1 radha PRN Q6HRS PRN 11/24/16 08:45 Naloxone HCl (Narcan) 0.4 mg STK-MED ONCE 12/10/16 14:45 12/10/16 14:46 DC Nicardipine HCl/ Sodium Chloride (Cardene/Iv Sodium Chloride 0.9% 250ml) 270 ml @ 0 mls/hr CONT PRN 11/27/16 20:45 12/05/16 09:17 DC 11/28/16 01:13 81 MLS/HR Nitroglycerin (Nitroglycerin) 200 mcg 1X ONCE 12/04/16 07:45 12/04/16 07:46 DC 12/04/16 07:42 200 MCG Nitroglycerin 0.4 mg 0.4 mg STK-MED ONCE 11/27/16 11:16 11/27/16 11:17 DC 11/27/16 11:26 0.4 MG Nitroglycerin/ Dextrose (Nitroglycerin Drip) 250 ml @ 0 mls/hr CONT PRN 11/30/16 10:45 12/05/16 09:17 DC 11/30/16 10:53 7.5 MLS/HR Ondansetron HCl (Zofran) 4 mg PRN Q6HRS PRN 12/04/16 06:30 Ondansetron HCl 4 mg 4 mg PRN Q6HRS PRN 11/26/16 13:45 12/04/16 06:30 DC 12/03/16 21:17 4 MG Pantoprazole Sodium (Protonix Vial) 40 mg DAILYAC 12/05/16 06:27 12/10/16 08:49 40 MG Pantoprazole Sodium/Sodium Chloride (Protonix Iv/Iv Sodium Chloride 0.9% 100ml) 100 ml @ 10 mls/hr Q10H PRN 11/28/16 10:00 12/01/16 15:59 DC 12/01/16 13:01 10 MLS/HR Piperacillin Sod/ Tazobactam Sod 3.375 gm/Sodium Chloride 50 ml @ 100 mls/hr Q6HRS 11/25/16 00:00 12/07/16 12:10 DC 12/07/16 05:21 100 MLS/HR Piperacillin Sod/ Tazobactam Sod 1 each 1 each PRN DAILY PRN 11/24/16 08:15 11/24/16 13:06 DC Piperacillin Sod/ Tazobactam Sod/ Sodium Chloride (Zosyn/Iv Sodium Chloride 0.9% 100ml) 100 ml @ 200 mls/hr Q6HRS 11/24/16 08:30 11/24/16 11:15 DC 11/24/16 10:10 200 MLS/HR Potassium Chloride/ Magnesium Sulfate/ Calcium Gluconate/ Multivitamins/ Chromium/Copper/ Manganese/Seleni/ Zn/Total Parenteral Nutrition/Amino Acids/Dextrose/ Fat Emulsion Intravenous (Calcium Gluconate/ Infuvite Adult/ Multitrace-5 Conc/ Tpn - Tpn Fluid/ Trophami... 1,512 ml @ 63 mls/hr TPN CONT 11/28/16 22:00 11/29/16 21:59 DC 11/28/16 21:18 63 MLS/HR Potassium Chloride/ Magnesium Sulfate/ Calcium Gluconate/ Multivitamins/ Chromium/Copper/ Manganese/Seleni/ Zn/Total Parenteral Nutrition/Amino Acids/Dextrose/ Fat Emulsion Intravenous (Infuvite Adult/ Multitrace-5 Conc/ Tpn - Tpn Fluid/ Trophamine/ Dextrose 70%-Water Iv So... 1,512 ml @ 63 mls/hr TPN CONT 11/27/16 22:00 11/28/16 21:59 DC 11/27/16 21:22 63 MLS/HR Potassium Chloride/ Potassium Acetate/ Magnesium Sulfate/ Calcium Gluconate/ Multivitamins/ Chromium/Copper/ Manganese/Seleni/ Zn/Total Parenteral Nutrition/Amino Acids/Dextrose/ Fat Emulsion Intravenous (Calcium Gluconate/ Infuvite Adult/ Multitrace-5 Conc/ Tpn - Tpn Flu... 1,512 ml @ 63 mls/hr TPN CONT 11/29/16 22:00 11/30/16 21:59 DC 11/29/16 21:54 63 MLS/HR Potassium Acetate/ Potassium Phosphate/ Magnesium Sulfate/ Calcium Gluconate/ Multivitamins/ Chromium/Copper/ Manganese/Seleni/ Zn/Insulin Human Regular/Total Parenteral Nutrition/Amino Acids/Dextrose/ Fat Emulsion Intravenous (Potassium Phosphate/Calcium Gluconate/ Infuvite Asim... 2,400 ml @ 100 mls/hr TPN CONT 12/10/16 22:00 12/11/16 21:59 12/10/16 22:08 100 MLS/HR Potassium Chloride 50 ml @ 50 mls/hr Q1H 11/26/16 10:30 11/26/16 12:29 DC 11/26/16 11:23 50 MLS/HR Propofol (Diprivan) 100 ml @ 0 mls/hr CONT PRN 11/24/16 08:45 11/26/16 17:49 DC 11/26/16 07:38 5.5 MLS/HR Sodium Bicarbonate 100 meq/Sterile Water 1,100 ml @ 100 mls/hr Q11H 11/26/16 13:00 11/27/16 11:25 DC 11/27/16 00:56 100 MLS/HR Sodium Bicarbonate 150 meq 150 meq STK-MED ONCE 11/25/16 12:00 11/25/16 14:56 DC Sodium Bicarbonate 50 meq/Sodium Chloride 1,050 ml @ 125 mls/hr Q8H24M 11/24/16 08:30 11/26/16 12:41 DC 11/26/16 11:24 125 MLS/HR Sodium Bicarbonate 50 meq 1X ONCE 11/27/16 12:45 11/27/16 12:46 DC 11/27/16 13:24 50 MEQ Sodium Chloride (Iv Sodium Chloride 0.9% 1000ml Bag) 1,000 ml @ 1,000 mls/hr 1X ONCE 11/24/16 11:00 11/24/16 11:59 DC 11/24/16 11:00 1,000 MLS/HR Sodium Chloride (Normal Saline Flush) 3 ml QSHIFT PRN 11/24/16 08:45 Sodium Chloride 90 meq/Potassium Chloride 50 meq/ Magnesium Sulfate 10 meq/Calcium Gluconate 10 meq/ Multivitamins 10 ml/Chromium/ Copper/Manganese/ Seleni/Zn 1 ml/ Total Parenteral Nutrition/Amino Acids/Dextrose/ Fat Emulsion Intravenous 1,594.468 ml @ 66.436 m... TPN CONT 11/27/16 22:00 11/28/16 21:59 Cancel Sodium Chloride/ Potassium Chloride/ Magnesium Sulfate/ Calcium Gluconate/ Multivitamins/ Chromium/Copper/ Manganese/Seleni/ Zn/Total Parenteral Nutrition/Amino Acids/Dextrose/ Fat Emulsion Intravenous (Sodium Chloride/ Infuvite Adult/ Multitrace-5 Conc/ Tpn - Tpn Fluid/ Trophami... 1,594.468 ml @ 66.436 m... TPN CONT 11/26/16 22:00 11/27/16 21:59 DC 11/26/16 21:27 66.436 MLS/HR Temazepam (Restoril) 15 mg PRN QHS PRN 12/09/16 11:30 Vancomycin HCl 1 each 1X ONCE 11/29/16 21:30 11/29/16 21:30 DC Vancomycin HCl (Vanco Per Pharmacy) 1 each PRN DAILY PRN 11/25/16 01:00 11/25/16 08:57 DC 11/25/16 03:30 1 EACH Vancomycin HCl 1.5 gm/Sodium Chloride 500 ml @ 250 mls/hr Q24H 11/25/16 10:00 11/25/16 10:00 DC Vancomycin HCl 1 each 1 each PRN DAILY PRN 11/27/16 22:00 11/28/16 08:30 DC 11/27/16 21:38 1 EACH Vancomycin HCl 2 gm/Sodium Chloride 500 ml @ 250 mls/hr 1X ONCE 11/27/16 22:00 11/27/16 23:59 DC 11/27/16 22:57 250 MLS/HR Vancomycin HCl/ Sodium Chloride (Iv Sodium Chloride 0.9% 250ml) 250 ml @ 250 mls/hr 1X ONCE 11/24/16 21:30 11/24/16 22:29 UNV Vancomycin HCl/ Sodium Chloride (Iv Sodium Chloride 0.9% 500ml Bag) 500 ml @ 250 mls/hr Q24H 11/28/16 22:00 11/28/16 22:00 DC Vecuronium Corona (Norcuron Bolus) 9 mg PRN Q30MIN PRN 11/24/16 08:45 11/26/16 17:49 DC 11/24/16 17:38 9 MG Verapamil HCl (Verapamil) 5 mg STK-MED ONCE 12/04/16 07:30 12/05/16 08:38 DC Lab Laboratory Tests Test 12/10/16 11:57 12/10/16 15:00 12/10/16 17:41 12/11/16 01:40 Glucose (Fingerstick) 159mg/dL (70-99) 194mg/dL (70-99) 151mg/dL (70-99) Special Test - Miscellaneous See separate report Test 12/11/16 05:43 12/11/16 06:10 Glucose (Fingerstick) 106mg/dL (70-99) White Blood Count 11.3x10^3/uL (4.0-11.0) Red Blood Count 3.13x10^6/uL (4.30-5.70) Hemoglobin 9.4g/dL (13.0-17.5) Hematocrit 28.3% (39.0-53.0) Mean Corpuscular Volume 91fL (79-100) Mean Corpuscular Hemoglobin 30pg (25-35) Mean Corpuscular Hemoglobin Concent 33g/dL (31-37) Red Cell Distribution Width 16.5% (11.5-14.5) Platelet Count 419x10^3/uL (140-400) Neutrophils (%) (Auto) 65% (31-73) Lymphocytes (%) (Auto) 14% (24-48) Monocytes (%) (Auto) 14% (0-9) Eosinophils (%) (Auto) 7% (0-3) Basophils (%) (Auto) 1% (0-3) Neutrophils # (Auto) 7.3x10^3uL (1.8-7.7) Lymphocytes # (Auto) 1.6x10^3/uL (1.0-4.8) Monocytes # (Auto) 1.6x10^3/uL (0.0-1.1) Eosinophils # (Auto) 0.7x10^3/uL (0.0-0.7) Basophils # (Auto) 0.1x10^3/uL (0.0-0.2) Prothrombin Time 13.2SEC (11.7-14.0) Prothromb Time International Ratio 1.1 (0.8-1.1) Sodium Level 142mmol/L (136-145) Potassium Level 4.9mmol/L (3.5-5.1) Chloride Level 107mmol/L (98-107) Carbon Dioxide Level 24mmol/L (21-32) Anion Gap 11 (6-14) Blood Urea Nitrogen 52mg/dL (8-26) Creatinine 1.6mg/dL (0.7-1.3) Estimated GFR (Cockcroft-Gault) 42.8 BUN/Creatinine Ratio 31 (6-20) Glucose Level 110mg/dL (70-99) Calcium Level 9.4mg/dL (8.5-10.1) Total Bilirubin 1.3mg/dL (0.2-1.0) Aspartate Amino Transf (AST/SGOT) 31U/L (15-37) Alanine Aminotransferase (ALT/SGPT) 60U/L (16-63) Alkaline Phosphatase 249U/L (46-116) Total Protein 6.9g/dL (6.4-8.2) Albumin 3.0g/dL (3.4-5.0) Albumin/Globulin Ratio 0.8 (1.0-1.7) ASHLEY DIAMOND MD Dec 11, 2016 09:39
[2016-12-11] MEDS: PANTOPRAZOLE IV PUSH 40 MG VIAL. IVP SCH (10:30)
--- NOTE | 2016-12-11 10:30 | PDOC ---
Subjective: Subjective: "Not too good" - back pain. Objective: Objective: Discussed w/ RN yesterday afternoon - family wishes to proceed w/ PEG, signed consent. Thoracentesis (100 cc grossly bloody pleural fluid) w/ chest tube yesterday. Vital Signs: Vital Signs Date Time Temp Pulse Resp B/P Pulse Ox O2 Delivery O2 Flow Rate FiO2 12/11/16 08:38 Nasal Cannula 1.0 12/11/16 07:00 98.0 91 20 131/73 90 98.0 Labs: Laboratory Tests Test 12/10/16 11:57 12/10/16 17:41 12/11/16 01:40 12/11/16 05:43 Glucose (Fingerstick) 159mg/dL (70-99) 194mg/dL (70-99) 151mg/dL (70-99) 106mg/dL (70-99) Imaging: CXR 12/11/16 PENDING PE: GEN: NAD, up to chair LUNGS: +chest tube right HEART: RRR ABD: S/ND/NT NEURO/PSYCH: probably a little confused/forgetful A/P: Dysphagia -following cardiac arrest, resp failure/intubation Hemothorax, anemia -Lovenox held, hematology and pulm following -Hgb improved -on IV PPI -- Scheduled for PEG tomorrow a.mYAMEL DELGADO Dec 11, 2016 10:29
[2016-12-11 11:12] VITALS: BP 115/61
--- NOTE | 2016-12-11 12:07 | PDOC ---
PROGRESS NOTES Chief Complaint Chief Complaint S/P VT/VF Cardiac arrest Acute respiratory failure possibly 2/2 PE; extubated 11/27 DVT bilateral LEs - IVC filter placed 11/29 Acute blood loss anemia s/p transfusion dysphagia Silent Aspiration; failed swallow study HFrEF [place] vs. CKD DM II bactremia with Peptostreptococcus sp. on Zosyn (day 13) HLD leukocytosis R hemothorax s/p thoracentesis with indwelling chest tube (12/11) History of Present Illness History of Present Illness no SOA, Now has indwelling R sided CT 100cc grossly bloody fluid taken by IR So far today around 100cc drainage Pt denies CP or SOA Sats and hgb stable Not getting his AC (ASA and lovenox BID) - needs AC for life per heme onc recommendation PLAN: follow pulmo recs Urine seems to be lightening up MAintain brown COnt to hold AC Lots of med issues MOnitor hgb Dw RN Omar Family does not want LTAC Vitals Vitals Vital Signs Date Time Temp Pulse Resp B/P Pulse Ox O2 Delivery O2 Flow Rate FiO2 12/11/16 11:12 97.5 82 20 115/61 95 Nasal Cannula 1.0 97.5 Physical Exam General: Alert, No acute distress, Other (fatigued) Heart: Normal S1 Lungs: Other (decrease bs) Abdomen: Soft, No tenderness Extremities: No edema Skin: No rashes, Other (no bruising) Labs LABS Laboratory Tests Test 12/10/16 15:00 12/10/16 15:15 12/10/16 17:41 12/11/16 01:40 Special Test - Miscellaneous See separate report Body Fluid Total Protein 4.4g/dL (.) Body Fluid Lactate Dehydrogenase 470IU/L (.) Glucose (Fingerstick) 194mg/dL (70-99) 151mg/dL (70-99) Test 12/11/16 05:43 12/11/16 06:10 Glucose (Fingerstick) 106mg/dL (70-99) White Blood Count 11.3x10^3/uL (4.0-11.0) Red Blood Count 3.13x10^6/uL (4.30-5.70) Hemoglobin 9.4g/dL (13.0-17.5) Hematocrit 28.3% (39.0-53.0) Mean Corpuscular Volume 91fL (79-100) Mean Corpuscular Hemoglobin 30pg (25-35) Mean Corpuscular Hemoglobin Concent 33g/dL (31-37) Red Cell Distribution Width 16.5% (11.5-14.5) Platelet Count 419x10^3/uL (140-400) Neutrophils (%) (Auto) 65% (31-73) Lymphocytes (%) (Auto) 14% (24-48) Monocytes (%) (Auto) 14% (0-9) Eosinophils (%) (Auto) 7% (0-3) Basophils (%) (Auto) 1% (0-3) Neutrophils # (Auto) 7.3x10^3uL (1.8-7.7) Lymphocytes # (Auto) 1.6x10^3/uL (1.0-4.8) Monocytes # (Auto) 1.6x10^3/uL (0.0-1.1) Eosinophils # (Auto) 0.7x10^3/uL (0.0-0.7) Basophils # (Auto) 0.1x10^3/uL (0.0-0.2) Prothrombin Time 13.2SEC (11.7-14.0) Prothromb Time International Ratio 1.1 (0.8-1.1) Sodium Level 142mmol/L (136-145) Potassium Level 4.9mmol/L (3.5-5.1) Chloride Level 107mmol/L (98-107) Carbon Dioxide Level 24mmol/L (21-32) Anion Gap 11 (6-14) Blood Urea Nitrogen 52mg/dL (8-26) Creatinine 1.6mg/dL (0.7-1.3) Estimated GFR (Cockcroft-Gault) 42.8 BUN/Creatinine Ratio 31 (6-20) Glucose Level 110mg/dL (70-99) Calcium Level 9.4mg/dL (8.5-10.1) Total Bilirubin 1.3mg/dL (0.2-1.0) Aspartate Amino Transf (AST/SGOT) 31U/L (15-37) Alanine Aminotransferase (ALT/SGPT) 60U/L (16-63) Alkaline Phosphatase 249U/L (46-116) Total Protein 6.9g/dL (6.4-8.2) Albumin 3.0g/dL (3.4-5.0) Albumin/Globulin Ratio 0.8 (1.0-1.7) Review of Systems Review of Systems dark urine, no soa, no CP, no abd pain Assessment and Plan Assessmemt and Plan Problems Medical Problems: (1) Cardiac arrest Status: Acute Problems: Comment Review of Relevant I have reviewed the following items rodolfo (where applicable) has been applied. Labs Laboratory Tests Test 12/09/16 18:24 12/09/16 23:58 12/10/16 04:50 12/10/16 06:04 Glucose (Fingerstick) 185mg/dL (70-99) 181mg/dL (70-99) 161mg/dL (70-99) White Blood Count 10.5x10^3/uL (4.0-11.0) Red Blood Count 2.71x10^6/uL (4.30-5.70) Hemoglobin 8.4g/dL (13.0-17.5) Hematocrit 25.3% (39.0-53.0) Mean Corpuscular Volume 93fL (79-100) Mean Corpuscular Hemoglobin 31pg (25-35) Mean Corpuscular Hemoglobin Concent 33g/dL (31-37) Red Cell Distribution Width 16.5% (11.5-14.5) Platelet Count 366x10^3/uL (140-400) Neutrophils (%) (Auto) 68% (31-73) Lymphocytes (%) (Auto) 12% (24-48) Monocytes (%) (Auto) 12% (0-9) Eosinophils (%) (Auto) 7% (0-3) Basophils (%) (Auto) 1% (0-3) Neutrophils # (Auto) 7.1x10^3uL (1.8-7.7) Lymphocytes # (Auto) 1.3x10^3/uL (1.0-4.8) Monocytes # (Auto) 1.3x10^3/uL (0.0-1.1) Eosinophils # (Auto) 0.7x10^3/uL (0.0-0.7) Basophils # (Auto) 0.1x10^3/uL (0.0-0.2) Sodium Level 142mmol/L (136-145) Potassium Level 4.5mmol/L (3.5-5.1) Chloride Level 106mmol/L (98-107) Carbon Dioxide Level 26mmol/L (21-32) Anion Gap 10 (6-14) Blood Urea Nitrogen 48mg/dL (8-26) Creatinine 1.5mg/dL (0.7-1.3) Estimated GFR (Cockcroft-Gault) 46.1 Glucose Level 182mg/dL (70-99) Calcium Level 8.9mg/dL (8.5-10.1) Phosphorus Level 4.4mg/dL (2.6-4.7) Magnesium Level 1.9mg/dL (1.8-2.4) Test 12/10/16 11:57 12/10/16 15:00 12/10/16 15:15 12/10/16 17:41 Glucose (Fingerstick) 159mg/dL (70-99) 194mg/dL (70-99) Special Test - Miscellaneous See separate report Body Fluid Total Protein 4.4g/dL (.) Body Fluid Lactate Dehydrogenase 470IU/L (.) Test 12/11/16 01:40 12/11/16 05:43 12/11/16 06:10 Glucose (Fingerstick) 151mg/dL (70-99) 106mg/dL (70-99) White Blood Count 11.3x10^3/uL (4.0-11.0) Red Blood Count 3.13x10^6/uL (4.30-5.70) Hemoglobin 9.4g/dL (13.0-17.5) Hematocrit 28.3% (39.0-53.0) Mean Corpuscular Volume 91fL (79-100) Mean Corpuscular Hemoglobin 30pg (25-35) Mean Corpuscular Hemoglobin Concent 33g/dL (31-37) Red Cell Distribution Width 16.5% (11.5-14.5) Platelet Count 419x10^3/uL (140-400) Neutrophils (%) (Auto) 65% (31-73) Lymphocytes (%) (Auto) 14% (24-48) Monocytes (%) (Auto) 14% (0-9) Eosinophils (%) (Auto) 7% (0-3) Basophils (%) (Auto) 1% (0-3) Neutrophils # (Auto) 7.3x10^3uL (1.8-7.7) Lymphocytes # (Auto) 1.6x10^3/uL (1.0-4.8) Monocytes # (Auto) 1.6x10^3/uL (0.0-1.1) Eosinophils # (Auto) 0.7x10^3/uL (0.0-0.7) Basophils # (Auto) 0.1x10^3/uL (0.0-0.2) Prothrombin Time 13.2SEC (11.7-14.0) Prothromb Time International Ratio 1.1 (0.8-1.1) Sodium Level 142mmol/L (136-145) Potassium Level 4.9mmol/L (3.5-5.1) Chloride Level 107mmol/L (98-107) Carbon Dioxide Level 24mmol/L (21-32) Anion Gap 11 (6-14) Blood Urea Nitrogen 52mg/dL (8-26) Creatinine 1.6mg/dL (0.7-1.3) Estimated GFR (Cockcroft-Gault) 42.8 BUN/Creatinine Ratio 31 (6-20) Glucose Level 110mg/dL (70-99) Calcium Level 9.4mg/dL (8.5-10.1) Total Bilirubin 1.3mg/dL (0.2-1.0) Aspartate Amino Transf (AST/SGOT) 31U/L (15-37) Alanine Aminotransferase (ALT/SGPT) 60U/L (16-63) Alkaline Phosphatase 249U/L (46-116) Total Protein 6.9g/dL (6.4-8.2) Albumin 3.0g/dL (3.4-5.0) Albumin/Globulin Ratio 0.8 (1.0-1.7) Laboratory Tests Test 12/10/16 15:00 12/10/16 15:15 12/10/16 17:41 12/11/16 01:40 Special Test - Miscellaneous See separate report Body Fluid Total Protein 4.4g/dL (.) Body Fluid Lactate Dehydrogenase 470IU/L (.) Glucose (Fingerstick) 194mg/dL (70-99) 151mg/dL (70-99) Test 4/6/17 05:43 12/11/16 06:10 Glucose (Fingerstick) 106mg/dL (70-99) White Blood Count 11.3x10^3/uL (4.0-11.0) Red Blood Count 3.13x10^6/uL (4.30-5.70) Hemoglobin 9.4g/dL (13.0-17.5) Hematocrit 28.3% (39.0-53.0) Mean Corpuscular Volume 91fL (79-100) Mean Corpuscular Hemoglobin 30pg (25-35) Mean Corpuscular Hemoglobin Concent 33g/dL (31-37) Red Cell Distribution Width 16.5% (11.5-14.5) Platelet Count 419x10^3/uL (140-400) Neutrophils (%) (Auto) 65% (31-73) Lymphocytes (%) (Auto) 14% (24-48) Monocytes (%) (Auto) 14% (0-9) Eosinophils (%) (Auto) 7% (0-3) Basophils (%) (Auto) 1% (0-3) Neutrophils # (Auto) 7.3x10^3uL (1.8-7.7) Lymphocytes # (Auto) 1.6x10^3/uL (1.0-4.8) Monocytes # (Auto) 1.6x10^3/uL (0.0-1.1) Eosinophils # (Auto) 0.7x10^3/uL (0.0-0.7) Basophils # (Auto) 0.1x10^3/uL (0.0-0.2) Prothrombin Time 13.2SEC (11.7-14.0) Prothromb Time International Ratio 1.1 (0.8-1.1) Sodium Level 142mmol/L (136-145) Potassium Level 4.9mmol/L (3.5-5.1) Chloride Level 107mmol/L (98-107) Carbon Dioxide Level 24mmol/L (21-32) Anion Gap 11 (6-14) Blood Urea Nitrogen 52mg/dL (8-26) Creatinine 1.6mg/dL (0.7-1.3) Estimated GFR (Cockcroft-Gault) 42.8 BUN/Creatinine Ratio 31 (6-20) Glucose Level 110mg/dL (70-99) Calcium Level 9.4mg/dL (8.5-10.1) Total Bilirubin 1.3mg/dL (0.2-1.0) Aspartate Amino Transf (AST/SGOT) 31U/L (15-37) Alanine Aminotransferase (ALT/SGPT) 60U/L (16-63) Alkaline Phosphatase 249U/L (46-116) Total Protein 6.9g/dL (6.4-8.2) Albumin 3.0g/dL (3.4-5.0) Albumin/Globulin Ratio 0.8 (1.0-1.7) Microbiology 11/28/16 Blood Culture - Final, Complete NO GROWTH AFTER 5 DAYS 11/24/16 Stool Culture - Final, Complete 11/24/16 Stool Culture Result 1 (ROSIE) - Final, Complete 11/24/16 Campylobacter Antigen Assay - Final, Complete 11/24/16 Campylobactor Result 1 - Final, Complete 11/24/16 Shiga Toxin Test - Final, Complete 12/09/16 Urine Culture - Preliminary, Resulted 12/09/16 Urine Culture Result 1 (ROSIE) - Preliminary, Resulted Medications Current Medications Sodium Chloride 1,000 ml @ 1,000 mls/hr Q1H IV Last administered on 11/24/16 06:50; Start 11/24/16 at 06:50; Stop 11/24/16 at 07:49; Status DC Epinephrine HCl/ Sodium Chloride (Adrenalin/Iv Sodium Chloride 0.9% 250ml) 254 ml @ 0 mls/hr CONT PRN IV SEE I/O RECORD Last administered on 11/26/16 03:05; Start 11/24/16 at 07:30; Stop 11/27/16 at 08:25; Status DC Insulin Aspart (Novolog) 0-7 UNITS TIDWMEALS SQ ; Start 11/24/16 at 08:00; Stop 11/24/16 at 15:36; Status DC Dextrose 12.5 gm 12.5 gm PRN Q15MIN PRN IV SEE COMMENTS; Start 11/24/16 at 07: 45; Stop 11/25/16 at 23:34; Status DC Sodium Chloride (Iv Sodium Chloride 0.9% 1000ml Bag) 1,000 ml @ 125 mls/hr 1X ONCE IV Last administered on 11/24/16 07:52; Start 11/24/16 at 08:00; Stop at 08:20; Status DC Vancomycin HCl (Vanco Per Pharmacy) 1 each PRN DAILY PRN MC SEE COMMENTS Last administered on 11/24/16 11:26; Start 11/24/16 at 08:15; Stop 11/24/16 at 13:06 ; Status DC Piperacillin Sod/ Tazobactam Sod 1 each 1 each PRN DAILY PRN MC SEE COMMENTS; Start 11/24/16 at 08:15; Stop 11/24/16 at 13:06; Status DC Sodium Bicarbonate 50 meq/Sodium Chloride 1,050 ml @ 125 mls/hr Q8H24M IV Last administered on 11/26/16 11:24; Start 11/24/16 at 08:30; Stop 11/26/16 at 12:41; Status DC Vancomycin HCl 2 gm/Sodium Chloride 500 ml @ 250 mls/hr ONCE ONCE IV Last administered on 11/24/16 10:15; Start 11/24/16 at 08:30; Stop 11/24/16 at 10:29 ; Status DC Piperacillin Sod/ Tazobactam Sod 4.5 gm/Sodium Chloride 100 ml @ 200 mls/hr Q6HRS IV Last administered on 11/24/16 10:10; Start 11/24/16 at 08:30; Stop at 11:15; Status DC Sodium Chloride (Iv Sodium Chloride 0.9% 1000ml Bag) 1,000 ml @ 1,000 mls/hr Q1H IV Last administered on 11/24/16 10:09; Start 11/24/16 at 08:39; Stop at 11:47; Status DC Fentanyl Citrate (Fentanyl 2ml Vial) 25 mcg PRN Q30MIN PRN IV SED Last administered on 11/30/16 17:24; Start 11/24/16 at 08:45; Stop 12/04/16 at 06:29 ; Status DC Lorazepam 1 mg 1 mg PRN Q30MIN PRN IV SEDATION Last administered on 11/25/16 12:26; Start 11/24/16 at 08:45; Stop 11/28/16 at 19:45; Status DC Fentanyl Citrate 30 ml @ 2.5 mls/hr CONT PRN PRN IV IVF Last administered on 07:40; Start 11/24/16 at 08:45; Stop 11/26/16 at 17:49; Status DC Propofol (Diprivan) 100 ml @ 0 mls/hr CONT PRN IV SEE I/O RECORD Last administered on 11/26/16 07:38; Start 11/24/16 at 08:45; Stop 11/26/16 at 17:49 ; Status DC Vecuronium [place] (Norcuron Bolus) 9 mg PRN Q30MIN PRN IV SHIVERING Last administered on 11/24/16 17:38; Start 11/24/16 at 08:45; Stop 11/26/16 at 17:49 ; Status DC Meperidine HCl (Demerol) 12.5 mg PRN Q30MIN PRN IV SHIVERING Last administered on 11/24/16 22:21; Start 11/24/16 at 08:45; Stop 11/24/16 at 22:21; Status DC Multi-Ingred Cream/Lotion/Oil/ Oint (Artificial Tears Eye Oint) 1 radha PRN Q6HRS PRN OU 0.5 INCH FOR DRY EYE; Start 11/24/16 at 08:45 Famotidine (Pepcid) 20 mg QHS IVP Last administered on 11/27/16 21:12; Start 11/24/16 at 21:00; Stop 11/28/16 at 09:46; Status DC Aspirin (Aspirin) 300 mg DAILY MD Last administered on 12/08/16 09:59; Start at 09:00 Sodium Chloride (Normal Saline Flush) 3 ml QSHIFT PRN IV AFTER MEDS AND BLOOD DRAWS; Start 11/24/16 at 08:45 Acetaminophen (Tylenol) 650 mg Q6HRS NG ; Start 11/24/16 at 12:00; Stop at 11:59; Status DC Acetaminophen (Tylenol) 650 mg PRN Q6HRS PRN MD MILD PAIN / TEMP; Start at 08:45; Stop 11/25/16 at 23:35; Status DC Acetaminophen (Tylenol) 650 mg PRN Q6HRS PRN NG MILD PAIN / TEMP; Start at 08:45 Info 1 ea 1 ea DAILY PRN MC PER PROTOCOL; Start 11/26/16 at 08:45; Stop at 09:17; Status DC Insulin Human Regular 150 unit/ Sodium Chloride 151.5 ml @ 9.16 mls/hr CONT PRN IV SEE I/O RECORD Last administered on 11/24/16 10:13; Start 11/24/16 at 09 :30; Stop 11/27/16 at 08:25; Status DC Piperacillin Sod/ Tazobactam Sod 3.375 gm/Sodium Chloride 50 ml @ 100 mls/hr Q6HRS IV ; Start 11/24/16 at 18:00; Stop 11/24/16 at 18:00; Status DC Vancomycin HCl/ Sodium Chloride (Iv Sodium Chloride 0.9% 500ml Bag) 500 ml @ 250 mls/hr Q24H IV ; Start 11/25/16 at 10:00; Stop 11/25/16 at 10:00; Status DC Vancomycin HCl 1 each 1 each 1X ONCE MC ; Start 11/26/16 at 09:30; Stop at 09:30; Status DC Sodium Chloride (Iv Sodium Chloride 0.9% 1000ml Bag) 1,000 ml @ 1,000 mls/hr 1X ONCE IV Last administered on 11/24/16 11:00; Start 11/24/16 at 11:00; Stop 11/24/16 at 11:59; Status DC Insulin Detemir (Levemir) 12 units QHS SQ ; Start 11/24/16 at 21:00; Stop at 21:00; Status DC Insulin Aspart (Novolog) 10 units 1X ONCE SQ ; Start 11/24/16 at 15:30; Stop at 20:10; Status DC Insulin Aspart (Novolog) 0-7 UNITS Q4HRS SQ ; Start 11/24/16 at 16:00; Stop at 20:10; Status DC Heparin Sodium (Porcine) 8100 unit 8,100 unit 1X ONCE IV Last administered on 11/24/16 17:24; Start 11/24/16 at 17:00; Stop 11/24/16 at 17:01; Status DC Heparin Sodium/ Dextrose 500 ml @ 0 mls/hr CONT PRN IV SEE I/O RECORD Last administered on 11/28/16 02:06; Start 11/24/16 at 16:45; Stop 11/28/16 at 17:12 ; Status DC Heparin Sodium (Porcine) 3,000 unit PRN Q6HRS PRN IV FOR UFH LEVEL LESS THAN 0.2; Start 11/24/16 at 16:45; Stop 11/28/16 at 17:12; Status DC Heparin Sodium (Porcine) 1,500 unit PRN Q6HRS PRN IV FOR UFH LEVEL 0.2 - 0.29 Last administered on 11/26/16 12:08; Start 11/24/16 at 16:45; Stop 11/28/16 at 17:12; Status DC Info 1 each 1 each PRN DAILY PRN MC SEE COMMENTS Last administered on 10:03; Start 11/24/16 at 17:00; Stop 11/28/16 at 17:13; Status DC Piperacillin Sod/ Tazobactam Sod 3.375 gm/Sodium Chloride 50 ml @ 100 mls/hr Q6HRS IV Last administered on 12/07/16 05:21; Start 11/25/16 at 00:00; Stop 12/07/16 at 12:10; Status DC Vancomycin HCl/ Sodium Chloride (Iv Sodium Chloride 0.9% 250ml) 250 ml @ 250 mls/hr 1X ONCE IV ; Start 11/24/16 at 21:30; Stop 11/24/16 at 22:29; Status UNV Vancomycin HCl 1 each 1 each PRN DAILY PRN MC SEE COMMENTS Last administered on 11/25/16 03:30; Start 11/25/16 at 01:00; Stop 11/25/16 at 08:57; Status DC Vancomycin HCl/ Sodium Chloride (Iv Sodium Chloride 0.9% 500ml Bag) 500 ml @ 250 mls/hr Q24H IV ; Start 11/25/16 at 10:00; Stop 11/25/16 at 10:00; Status DC Vancomycin HCl 1 each 1X ONCE MC ; Start 11/26/16 at 09:30; Stop 11/26/16 at 09 :30; Status DC Enoxaparin Sodium (Lovenox Per Pharmacy Prophylaxis Dosing) 1 each PRN DAILY PRN MC SEE COMMENTS; Start 11/25/16 at 08:45; Status UNV Chlorhexidine Gluconate 15 ml 15 ml BID MM Last administered on 11/26/16 08:37 ; Start 11/25/16 at 21:00; Stop 11/26/16 at 17:49; Status DC Magnesium Sulfate/ Dextrose 50 ml @ 25 mls/hr PRN DAILY PRN IV for Mag < 1.7 on am labs Last administered on 11/26/16 05:29; Start 11/25/16 at 09:45; Stop 11/27/16 at 08:47; Status DC Magnesium Sulfate/ Dextrose 50 ml @ 25 mls/hr PRN DAILY PRN IV for Mag < 1.7 on am labs; Start 11/25/16 at 09:45; Status UNV Sodium Chloride 500 ml @ 0 mls/hr QID PRN IV UO< 30cc/hr over previous 6hrs Last administered on 11/25/16 10:54; Start 11/25/16 at 09:45; Stop 11/27/16 at 11:25; Status DC Magnesium Sulfate/ Dextrose (Magnesium Sulfate PREMIX 2GM) 50 ml @ 25 mls/hr 1X ONCE IV Last administered on 11/25/16 13:28; Start 11/25/16 at 12:30; Stop 11/25/16 at 14:29; Status DC Lidocaine/Sodium Bicarbonate 20 ml 20 ml STK-MED ONCE IJ ; Start 11/25/16 at 12: 35; Stop 11/25/16 at 12:36; Status DC Heparin Sodium/ Sodium Chloride 500 ml @ As Directed STK-MED ONCE .ROUTE ; Start 11/25/16 at 12:35; Stop 11/25/16 at 12:36; Status DC Lidocaine/Sodium Bicarbonate (Buffered Lidocaine 1%) 3 ml 1X ONCE IJ Last administered on 11/25/16 13:15; Start 11/25/16 at 13:15; Stop 11/25/16 at 13:16 ; Status DC Heparin Sodium/ Sodium Chloride 60 unit 1X ONCE IV Last administered on 13:16; Start 11/25/16 at 13:15; Stop 11/25/16 at 13:16; Status DC Amiodarone HCl (Cordarone) 450 mg STK-MED ONCE .ROUTE ; Start 11/25/16 at 12:00 ; Stop 11/25/16 at 14:56; Status DC Epinephrine HCl (Adrenalin) 30 mg STK-MED ONCE .ROUTE ; Start 11/25/16 at 12:00 ; Stop 11/25/16 at 14:56; Status DC Atropine Sulfate 1.5 mg STK-MED ONCE .ROUTE ; Start 11/25/16 at 12:00; Stop at 14:56; Status DC Epinephrine HCl 4 mg STK-MED ONCE .ROUTE ; Start 11/25/16 at 12:00; Stop at 14:56; Status DC Sodium Bicarbonate 150 meq 150 meq STK-MED ONCE .ROUTE ; Start 11/25/16 at 12:00 ; Stop 11/25/16 at 14:56; Status DC Midazolam HCl (Versed 100mg/ 100ml Premix) 100 ml @ 0 mls/hr CONT PRN IV SEE I/ O RECORD; Start 11/25/16 at 23:30; Stop 11/26/16 at 17:49; Status DC Insulin Aspart (Novolog) 0-7 UNITS TIDWMEALS SQ Last administered on 11/27/16 19:43; Start 11/26/16 at 08:00; Stop 11/28/16 at 01:01; Status DC Dextrose 12.5 gm PRN Q15MIN PRN IV SEE COMMENTS; Start 11/25/16 at 23:30; Stop 12/05/16 at 14:19; Status DC Acetaminophen 650 mg 650 mg PRN Q6HRS PRN MD MILD PAIN / TEMP Last administered on 11/28/16 04:19; Start 11/25/16 at 23:30; Stop 12/02/16 at 13:29 ; Status DC Potassium Chloride 50 ml @ 50 mls/hr Q1H IV Last administered on 11/26/16 11: 23; Start 11/26/16 at 10:30; Stop 11/26/16 at 12:29; Status DC Sodium Bicarbonate/ Sterile Water 1,100 ml @ 100 mls/hr Q11H IV Last administered on 11/27/16 00:56; Start 11/26/16 at 13:00; Stop 11/27/16 at 11:25 ; Status DC Info 1 each 1 each PRN DAILY PRN MC SEE COMMENTS Last administered on 12/10/16 14:46; Start 11/26/16 at 12:45 Calcium Chloride/ Sodium Chloride (Iv Sodium Chloride 0.9% 100ml) 120 ml @ 240 mls/hr 1X ONCE IV Last administered on 11/26/16 13:22; Start 11/26/16 at 13: 15; Stop 11/26/16 at 13:44; Status DC Ondansetron HCl 4 mg 4 mg PRN Q6HRS PRN IV NAUSEA/VOMITING Last administered on 12/03/16 21:17; Start 11/26/16 at 13:45; Stop 12/04/16 at 06:30; Status DC Sodium Chloride/ Potassium Chloride/ Magnesium Sulfate/ Calcium Gluconate/ Multivitamins/ Chromium/Copper/ Manganese/Seleni/ Zn/Total Parenteral Nutrition/ Amino Acids/Dextrose/ Fat Emulsion Intravenous (Sodium Chloride/ Infuvite Adult / Multitrace-5 Conc/ Tpn - Tpn Fluid/ Trophami... 1,594.468 ml @ 66.436 m... TPN CONT IV Last administered on 11/26/16 21:27; Start 11/26/16 at 22:00; Stop 11/27/16 at 21:59; Status DC Albuterol Sulfate 2.5 mg 2.5 mg 1X ONCE NEB Last administered on 11/27/16 07: 21; Start 11/27/16 at 06:45; Stop 11/27/16 at 06:46; Status DC Magnesium Sulfate/ Dextrose 50 ml @ 25 mls/hr PRN DAILY PRN IV for Mag < 1.7 on am labs; Start 11/27/16 at 08:45 Sodium Chloride 90 meq/Potassium Chloride 50 meq/ Magnesium Sulfate 10 meq/ Calcium Gluconate 10 meq/ Multivitamins 10 ml/Chromium/ Copper/Manganese/ Seleni /Zn 1 ml/ Total Parenteral Nutrition/Amino Acids/Dextrose/ Fat Emulsion Intravenous 1,594.468 ml @ 66.436 m... TPN CONT IV ; Start 11/27/16 at 22:00; Stop 11/28/16 at 21:59; Status Cancel Potassium Chloride/ Magnesium Sulfate/ Calcium Gluconate/ Multivitamins/ Chromium/Copper/ Manganese/Seleni/ Zn/Total Parenteral Nutrition/Amino Acids/ Dextrose/ Fat Emulsion Intravenous (Infuvite Adult/ Multitrace-5 Conc/ Tpn - Tpn Fluid/ Trophamine/ Dextrose 70%-Water Iv So... 1,512 ml @ 63 mls/hr TPN CONT IV Last administered on 11/27/16 21:22; Start 11/27/16 at 22:00; Stop at 21:59; Status DC Nitroglycerin 0.4 mg 0.4 mg STK-MED ONCE SL Last administered on 11/27/16 11: 26; Start 11/27/16 at 11:16; Stop 11/27/16 at 11:17; Status DC Albumin Human (Albuminar) 100 ml @ 100 mls/hr TID IV Last administered on 11/29 08:56; Start 11/27/16 at 12:00; Stop 11/29/16 at 09:59; Status DC Sodium Bicarbonate 50 meq 1X ONCE IV Last administered on 11/27/16 13:24; Start 11/27/16 at 12:45; Stop 11/27/16 at 12:46; Status DC Hydralazine HCl (Apresoline) 10 mg PRN Q4HRS PRN IVP ELEVATED BP, SEE COMMENTS Last administered on 12/03/16 20:18; Start 11/27/16 at 12:45 Metoprolol Tartrate (Lopressor) 5 mg Q6HRS IVP Last administered on 11/27/16 15:40; Start 11/27/16 at 15:30; Stop 11/27/16 at 19:11; Status DC Metoprolol Tartrate 5 mg 5 mg Q6HRS@04,10,16,22 IVP Last administered on 10:30; Start 11/27/16 at 22:00 Nicardipine HCl/ Sodium Chloride (Cardene/Iv Sodium Chloride 0.9% 250ml) 270 ml @ 0 mls/hr CONT PRN IV SEE I/O RECORD Last administered on 11/28/16 01:13; Start 11/27/16 at 20:45; Stop 12/05/16 at 09:17; Status DC Vancomycin HCl 1 each 1 each PRN DAILY PRN MC SEE COMMENTS Last administered on 11/27/16 21:38; Start 11/27/16 at 22:00; Stop 11/28/16 at 08:30; Status DC Vancomycin HCl 2 gm/Sodium Chloride 500 ml @ 250 mls/hr 1X ONCE IV Last administered on 11/27/16 22:57; Start 11/27/16 at 22:00; Stop 11/27/16 at 23:59 ; Status DC Vancomycin HCl/ Sodium Chloride (Iv Sodium Chloride 0.9% 500ml Bag) 500 ml @ 250 mls/hr Q24H IV ; Start 11/28/16 at 22:00; Stop 11/28/16 at 22:00; Status DC Vancomycin HCl 1 each 1X ONCE MC ; Start 11/29/16 at 21:30; Stop 11/29/16 at 21 :30; Status DC Insulin Aspart (Novolog) 0-7 UNITS Q6HRS SQ Last administered on 12/10/16 17:48 ; Start 11/28/16 at 01:00 Linezolid 600 mg 600 mg BID PO ; Start 11/28/16 at 09:00; Stop 11/28/16 at 19:45 ; Status DC Pantoprazole Sodium/Sodium Chloride (Protonix Iv/Iv Sodium Chloride 0.9% 100ml) 100 ml @ 10 mls/hr Q10H PRN IV . Last administered on 12/01/16 13:01; Start 11/28/16 at 10:00; Stop 12/01/16 at 15:59; Status DC Ipratropium [place] (Atrovent) 0.5 mg RTQID NEB Last administered on 12/11/16 10:45; Start 11/28/16 at 12:00 Budesonide (Pulmicort) 0.5 mg RTBID NEB Last administered on 12/06/16 07:36; Start 11/28/16 at 20:00; Stop 12/06/16 at 18:19; Status DC Furosemide 40 mg 40 mg 1X ONCE IVP Last administered on 11/28/16 12:15; Start 11/28/16 at 12:15; Stop 11/28/16 at 12:16; Status DC Potassium Chloride/ Magnesium Sulfate/ Calcium Gluconate/ Multivitamins/ Chromium/Copper/ Manganese/Seleni/ Zn/Total Parenteral Nutrition/Amino Acids/ Dextrose/ Fat Emulsion Intravenous (Calcium Gluconate/ Infuvite Adult/ Multitrace-5 Conc/ Tpn - Tpn Fluid/ Trophami... 1,512 ml @ 63 mls/hr TPN CONT IV Last administered on 11/28/16 21:18; Start 11/28/16 at 22:00; Stop at 21:59; Status DC Lidocaine/Sodium Bicarbonate (Buffered Lidocaine 1%) 3 ml 1X ONCE IJ Last administered on 11/28/16 15:45; Start 11/28/16 at 14:45; Stop 11/28/16 at 14:46 ; Status DC Heparin Sodium/ Sodium Chloride 60 unit 1X ONCE IV Last administered on 15:45; Start 11/28/16 at 14:45; Stop 11/28/16 at 14:46; Status DC Heparin Sodium (Porcine) 2500 unit 2,500 unit 1X ONCE INT CAT Last administered on 11/28/16 15:45; Start 11/28/16 at 14:45; Stop 11/28/16 at 14:46 ; Status DC Linezolid 300 ml @ 300 mls/hr Q12HR IV Last administered on 12/01/16 21:13; Start 11/28/16 at 21:00; Stop 12/02/16 at 08:23; Status DC Potassium Chloride/ Potassium Acetate/ Magnesium Sulfate/ Calcium Gluconate/ Multivitamins/ Chromium/Copper/ Manganese/Seleni/ Zn/Total Parenteral Nutrition/ Amino Acids/Dextrose/ Fat Emulsion Intravenous (Calcium Gluconate/ Infuvite Adult/ Multitrace-5 Conc/ Tpn - Tpn Flu... 1,512 ml @ 63 mls/hr TPN CONT IV Last administered on 11/29/16 21:54; Start 11/29/16 at 22:00; Stop 11/30/16 at 21:59; Status DC Iohexol (Omnipaque 300 Mg/ml) 100 ml STK-MED ONCE .ROUTE ; Start 11/29/16 at 09: 12; Stop 11/29/16 at 09:13; Status DC Lidocaine/Sodium Bicarbonate 20 ml 20 ml STK-MED ONCE IJ ; Start 11/29/16 at 09: 12; Stop 11/29/16 at 09:13; Status DC Heparin Sodium/ Sodium Chloride 500 ml @ As Directed STK-MED ONCE .ROUTE ; Start 11/29/16 at 09:12; Stop 11/29/16 at 09:13; Status DC Lidocaine/Sodium Bicarbonate (Buffered Lidocaine 1%) 2 ml 1X ONCE IJ Last administered on 11/29/16 10:22; Start 11/29/16 at 10:00; Stop 11/29/16 at 10:15 ; Status DC Iohexol (Omnipaque 300 Mg/ml) 30 ml 1X ONCE IART Last administered on 10:22; Start 11/29/16 at 10:00; Stop 11/29/16 at 10:15; Status DC Heparin Sodium/ Sodium Chloride 1,000 unit 1X ONCE IV Last administered on 10:21; Start 11/29/16 at 10:00; Stop 11/29/16 at 10:15; Status DC Info 1 each 1 each PRN DAILY PRN MC SEE COMMENTS; Start 11/29/16 at 10:30; Stop 12/01/16 at 10:29; Status DC Heparin Sodium/ Dextrose 500 ml @ 0 mls/hr CONT PRN IV SEE I/O RECORD; Start at 15:15; Status UNV Heparin Sodium/ Dextrose 500 ml @ 0 mls/hr CONT PRN IV SEE I/O RECORD Last administered on 12/04/16 19:23; Start 11/29/16 at 15:15; Stop 12/05/16 at 08:51 ; Status DC Nitroglycerin/ Dextrose 250 ml @ 0 mls/hr CONT PRN IV SEE I/O RECORD Last administered on 11/30/16 10:53; Start 11/30/16 at 10:45; Stop 12/05/16 at 09:17 ; Status DC Potassium Acetate/ Potassium Phosphate/ Magnesium Sulfate/ Calcium Gluconate/ Multivitamins/ Chromium/Copper/ Manganese/Seleni/ Zn/Insulin Human Regular/ Total Parenteral Nutrition/Amino Acids/Dextrose/ Fat Emulsion Intravenous ( Potassium Phosphate/Calcium Gluconate/ Infuvite Asim... 1,472.1 ml @ 63 mls/hr TPN CONT IV Last administered on 11/30/16 21:31; Start 11/30/16 at 22:00; Stop 12/01/16 at 21:21; Status DC Furosemide 40 mg 40 mg 1X ONCE IVP Last administered on 11/30/16 15:02; Start 11/30/16 at 15:00; Stop 11/30/16 at 15:01; Status DC Iron Sucrose/ Sodium Chloride (Venofer/Iv Sodium Chloride 0.9% 250ml) 275 ml @ 78.571 mls/ hr 1X ONCE IV Last administered on 12/01/16 09:58; Start at 09:00; Stop 12/01/16 at 12:29; Status DC Insulin Detemir (Levemir) 12 units QHS SQ Last administered on 12/03/16 21:28 ; Start 12/01/16 at 21:00; Stop 12/04/16 at 16:49; Status DC Info 1 each 1 each PRN DAILY PRN MC SEE COMMENTS Last administered on 12:18; Start 12/01/16 at 10:45; Stop 12/05/16 at 09:17; Status DC Potassium Acetate/ Potassium Phosphate/ Magnesium Sulfate/ Calcium Gluconate/ Multivitamins/ Chromium/Copper/ Manganese/Seleni/ Zn/Insulin Human Regular/ Total Parenteral Nutrition/Amino Acids/Dextrose/ Fat Emulsion Intravenous ( Potassium Phosphate/Calcium Gluconate/ Infuvite Asim... 1,512 ml @ 64.708 mls/ hr TPN CONT IV Last administered on 12/01/16 22:20; Start 12/01/16 at 22:00; Stop 12/02/16 at 21:21; Status DC Pantoprazole Sodium (Protonix Vial) 40 mg DAILYAC IVP Last administered on 12/04 10:37; Start 12/02/16 at 07:30; Stop 12/05/16 at 06:27; Status DC Acetaminophen 650 mg 650 mg 1X PRN PRN PO PRN prior to blood transfusion; Start 12/02/16 at 06:30; Stop 12/03/16 at 06:29; Status DC Potassium Acetate/ Potassium Phosphate/ Magnesium Sulfate/ Calcium Gluconate/ Multivitamins/ Chromium/Copper/ Manganese/Seleni/ Zn/Insulin Human Regular/ Total Parenteral Nutrition/Amino Acids/Dextrose/ Fat Emulsion Intravenous ( Potassium Phosphate/Calcium Gluconate/ Infuvite Asim... 1,512 ml @ 64.708 mls/ hr TPN CONT IV Last administered on 12/02/16 21:46; Start 12/02/16 at 22:00; Stop 12/03/16 at 21:21; Status DC Furosemide (Lasix) 40 mg DAILY IVP Last administered on 12/03/16 08:47; Start 12/02/16 at 12:30; Stop 12/04/16 at 06:30; Status DC Acetaminophen (Acetaminophen Supp) 650 mg PRN Q6HRS PRN MD MILD PAIN / TEMP; Start 12/02/16 at 13:30; Stop 12/02/16 at 13:36; Status DC Acetaminophen 650 mg 650 mg PRN Q6HRS PRN MD MILD PAIN / TEMP; Start 12/02/16 at 13:45 Potassium Acetate/ Potassium Phosphate/ Magnesium Sulfate/ Calcium Gluconate/ Multivitamins/ Chromium/Copper/ Manganese/Seleni/ Zn/Insulin Human Regular/ Total Parenteral Nutrition/Amino Acids/Dextrose/ Fat Emulsion Intravenous ( Potassium Phosphate/Calcium Gluconate/ Infuvite Asim... 1,512 ml @ 63 mls/hr TPN CONT IV Last administered on 12/03/16 21:05; Start 12/03/16 at 22:00; Stop 12/04/16 at 21:59; Status DC Fentanyl Citrate (Fentanyl 2ml Vial) 25 mcg PRN Q30MIN PRN IV SED; Start at 06:29; Stop 12/05/16 at 09:17; Status DC Ondansetron HCl (Zofran) 4 mg PRN Q6HRS PRN IV NAUSEA/VOMITING; Start 12/04/16 at 06:30 Furosemide (Lasix) 40 mg DAILY IVP Last administered on 12/06/16 10:20; Start 12/04/16 at 06:30; Stop 12/06/16 at 15:12; Status DC Lidocaine HCl 20 ml 20 ml STK-MED ONCE .ROUTE ; Start 12/04/16 at 07:02; Stop at 07:03; Status DC Heparin Sodium/ Sodium Chloride 1,500 ml @ As Directed STK-MED ONCE .ROUTE ; Start 12/04/16 at 07:02; Stop 12/04/16 at 07:03; Status DC Iodixanol (Visipaque 320) 100 ml STK-MED ONCE .ROUTE ; Start 12/04/16 at 07:02; Stop 12/04/16 at 07:03; Status DC Nitroglycerin (Nitroglycerin) 200 mcg STK-MED ONCE .ROUTE ; Start 12/04/16 at 07 :05; Stop 12/04/16 at 07:06; Status DC Verapamil HCl (Verapamil) 5 mg STK-MED ONCE .ROUTE ; Start 12/04/16 at 07:05; Stop 12/04/16 at 07:06; Status DC Midazolam HCl (Versed) 2 mg STK-MED ONCE .ROUTE ; Start 12/04/16 at 07:05; Stop 12/04/16 at 07:06; Status DC Fentanyl Citrate (Fentanyl 2ml Vial) 100 mcg STK-MED ONCE .ROUTE ; Start at 07:05; Stop 12/04/16 at 07:06; Status DC Heparin Sodium (Porcine) 10,000 unit STK-MED ONCE .ROUTE ; Start 12/04/16 at 07: 05; Stop 12/04/16 at 07:06; Status DC Nitroglycerin (Nitroglycerin) 200 mcg STK-MED ONCE .ROUTE ; Start 12/04/16 at 07 :17; Stop 12/04/16 at 07:18; Status DC Verapamil HCl (Verapamil) 5 mg STK-MED ONCE .ROUTE ; Start 12/04/16 at 07:18; Stop 12/04/16 at 07:19; Status DC Nitroglycerin (Nitroglycerin) 200 mcg 1X ONCE IART Last administered on 07:42; Start 12/04/16 at 07:45; Stop 12/04/16 at 07:46; Status DC Verapamil HCl (Verapamil) 2.5 mg 1X ONCE IART Last administered on 12/04/16 07:43; Start 12/04/16 at 07:45; Stop 12/04/16 at 07:46; Status DC Heparin Sodium/ Sodium Chloride 1,000 unit 1X ONCE IART Last administered on 07:43; Start 12/04/16 at 07:45; Stop 12/04/16 at 07:46; Status DC Midazolam HCl (Versed) 0.5 mg 1X ONCE IV Last administered on 12/04/16 07:44 ; Start 12/04/16 at 07:45; Stop 12/04/16 at 07:46; Status DC Fentanyl Citrate (Fentanyl 2ml Vial) 25 mcg 1X ONCE IV Last administered on 07:44; Start 12/04/16 at 07:45; Stop 12/04/16 at 07:46; Status DC Iodixanol (Visipaque 320) 100 ml 1X ONCE IART Last administered on 12/04/16 07:42; Start 12/04/16 at 07:45; Stop 12/04/16 at 07:46; Status DC Lidocaine HCl 20 ml 1X ONCE IJ Last administered on 12/04/16 07:43; Start at 07:45; Stop 12/04/16 at 07:46; Status DC Info 1 each 1 each PRN DAILY PRN MC SEE COMMENTS; Start 12/04/16 at 07:45; Stop 12/06/16 at 07:44; Status DC Potassium Acetate/ Potassium Phosphate/ Magnesium Sulfate/ Calcium Gluconate/ Multivitamins/ Chromium/Copper/ Manganese/Seleni/ Zn/Insulin Human Regular/ Total Parenteral Nutrition/Amino Acids/Dextrose/ Fat Emulsion Intravenous ( Potassium Phosphate/Calcium Gluconate/ Infuvite Asim... 1,512 ml @ 63 mls/hr TPN CONT IV Last administered on 12/04/16 22:47; Start 12/04/16 at 22:00; Stop 12/05/16 at 21:59; Status DC Lidocaine HCl 20 ml 20 ml STK-MED ONCE .ROUTE ; Start 12/04/16 at 12:59; Stop at 13:00; Status DC Heparin Sodium/ Sodium Chloride 1,000 ml @ As Directed STK-MED ONCE .ROUTE ; Start 12/04/16 at 12:59; Stop 12/05/16 at 08:51; Status DC Iodixanol (Visipaque 320) 100 ml STK-MED ONCE .ROUTE ; Start 12/04/16 at 12:59; Stop 12/04/16 at 13:00; Status DC Insulin Detemir (Levemir) 25 units QHS SQ ; Start 12/04/16 at 21:00; Stop at 21:00; Status DC Insulin Detemir (Levemir) 20 units QHS SQ Last administered on 12/10/16 19:48; Start 12/04/16 at 21:00 Morphine Sulfate 2 mg PRN Q2HR PRN IV PAIN Last administered on 12/10/16 21:53 ; Start 12/04/16 at 19:15 Morphine Sulfate 4 mg PRN Q2HR PRN IV PAIN; Start 12/04/16 at 19:15; Stop 12/05 at 09:17; Status DC Pantoprazole Sodium (Protonix Vial) 40 mg DAILYAC IVP Last administered on 10:30; Start 12/05/16 at 06:27 Verapamil HCl (Verapamil) 5 mg STK-MED ONCE .ROUTE ; Start 12/04/16 at 07:30; Stop 12/05/16 at 08:38; Status DC Enoxaparin Sodium (Lovenox Per Pharmacy Treatment Dosing) 1 each PRN DAILY PRN MC SEE COMMENTS; Start 12/05/16 at 09:00; Stop 12/09/16 at 13:25; Status DC Enoxaparin Sodium (Lovenox 100mg Syringe) 100 mg Q12HR SQ Last administered on 12/10/16 19:53; Start 12/05/16 at 09:00; Stop 12/11/16 at 08:40; Status DC Info 1 each 1 each PRN DAILY PRN MC SEE COMMENTS Last administered on 12/07/16 12:19; Start 12/05/16 at 10:15 Potassium Acetate/ Potassium Phosphate/ Magnesium Sulfate/ Calcium Gluconate/ Multivitamins/ Chromium/Copper/ Manganese/Seleni/ Zn/Insulin Human Regular/ Total Parenteral Nutrition/Amino Acids/Dextrose/ Fat Emulsion Intravenous ( Potassium Phosphate/Calcium Gluconate/ Infuvite Asim... 1,512 ml @ 63 mls/hr TPN CONT IV Last administered on 12/05/16 21:14; Start 12/05/16 at 22:00; Stop 12/06/16 at 21:59; Status DC Barium Sulfate (Varibar Thin Liquid Apple) 148 gm 1X ONCE PO Last administered on 12/05/16 13:56; Start 12/05/16 at 14:00; Stop 12/05/16 at 14:01 ; Status DC Dextrose 12.5 gm 12.5 gm PRN Q15MIN PRN IV SEE COMMENTS; Start 12/05/16 at 14: 19 Potassium Acetate/ Potassium Phosphate/ Magnesium Sulfate/ Calcium Gluconate/ Multivitamins/ Chromium/Copper/ Manganese/Seleni/ Zn/Insulin Human Regular/ Total Parenteral Nutrition/Amino Acids/Dextrose/ Fat Emulsion Intravenous ( Potassium Phosphate/Calcium Gluconate/ Infuvite Asim... 1,512 ml @ 63 mls/hr TPN CONT IV Last administered on 12/06/16 20:49; Start 12/06/16 at 22:00; Stop 12/07/16 at 21:59; Status DC Furosemide 20 mg 20 mg DAILY IVP Last administered on 12/08/16 08:37; Start 12/07/16 at 09:00; Stop 12/08/16 at 09:24; Status DC Potassium Acetate/ Potassium Phosphate/ Magnesium Sulfate/ Calcium Gluconate/ Multivitamins/ Chromium/Copper/ Manganese/Seleni/ Zn/Insulin Human Regular/ Total Parenteral Nutrition/Amino Acids/Dextrose/ Fat Emulsion Intravenous ( Potassium Phosphate/Calcium Gluconate/ Infuvite Asim... 1,512 ml @ 63 mls/hr TPN CONT IV Last administered on 12/07/16 20:23; Start 12/07/16 at 22:00; Stop 12/08/16 at 21:59; Status DC Lorazepam 0.5 mg 0.5 mg PRN Q6HRS PRN IV ANXIETY / AGITATION Last administered on 12/10/16 21:54; Start 12/07/16 at 16:30 Dextrose 1,000 ml @ 100 mls/hr Q10H IV Last administered on 12/08/16 09:59; Start 12/08/16 at 09:30; Stop 12/08/16 at 19:29; Status DC Potassium Acetate/ Potassium Phosphate/ Magnesium Sulfate/ Calcium Gluconate/ Multivitamins/ Chromium/Copper/ Manganese/Seleni/ Zn/Insulin Human Regular/ Total Parenteral Nutrition/Amino Acids/Dextrose/ Fat Emulsion Intravenous ( Potassium Phosphate/Calcium Gluconate/ Infuvite Asim... 2,400 ml @ 100 mls/hr TPN CONT IV Last administered on 12/08/16 21:20; Start 12/08/16 at 22:00; Stop 12/09/16 at 21:59; Status DC Temazepam 15 mg 15 mg PRN QHS PRN PO INSOMNIA; Start 12/09/16 at 11:30 Potassium Acetate/ Potassium Phosphate/ Magnesium Sulfate/ Calcium Gluconate/ Multivitamins/ Chromium/Copper/ Manganese/Seleni/ Zn/Insulin Human Regular/ Total Parenteral Nutrition/Amino Acids/Dextrose/ Fat Emulsion Intravenous ( Potassium Phosphate/Calcium Gluconate/ Infuvite Asim... 2,400 ml @ 100 mls/hr TPN CONT IV Last administered on 12/09/16 21:27; Start 12/09/16 at 22:00; Stop 12/10/16 at 21:59; Status DC Lorazepam 1 mg 1 mg 1X ONCE IV Last administered on 12/09/16 21:29; Start 12/09 at 21:30; Stop 12/09/16 at 21:31; Status DC Potassium Acetate/ Potassium Phosphate/ Magnesium Sulfate/ Calcium Gluconate/ Multivitamins/ Chromium/Copper/ Manganese/Seleni/ Zn/Insulin Human Regular/ Total Parenteral Nutrition/Amino Acids/Dextrose/ Fat Emulsion Intravenous ( Potassium Phosphate/Calcium Gluconate/ Infuvite Asim... 2,400 ml @ 100 mls/hr TPN CONT IV Last administered on 12/10/16 22:08; Start 12/10/16 at 22:00; Stop 12/11/16 at 21:59 Lidocaine/Sodium Bicarbonate (Buffered Lidocaine 1%) 20 ml STK-MED ONCE IJ ; Start 12/10/16 at 14:30; Stop 12/10/16 at 14:31; Status DC Naloxone HCl (Narcan) 0.4 mg STK-MED ONCE .ROUTE ; Start 12/10/16 at 14:45; Stop 12/10/16 at 14:46; Status DC Flumazenil (Romazicon) 0.5 mg STK-MED ONCE IV ; Start 12/10/16 at 14:45; Stop 12/10/16 at 14:46; Status DC Fentanyl Citrate (Fentanyl 2ml Vial) 100 mcg STK-MED ONCE .ROUTE ; Start at 14:45; Stop 12/10/16 at 14:46; Status DC Midazolam HCl (Versed) 2 mg STK-MED ONCE .ROUTE ; Start 12/10/16 at 14:45; Stop 12/10/16 at 14:46; Status DC Lidocaine/Sodium Bicarbonate (Buffered Lidocaine 1%) 20 ml 1X ONCE IJ Last administered on 12/10/16 15:15; Start 12/10/16 at 15:15; Stop 12/10/16 at 15:16; Status DC Midazolam HCl (Versed) 2 mg 1X ONCE IV Last administered on 12/10/16 15:20; Start 12/10/16 at 15:15; Stop 12/10/16 at 15:16; Status DC Fentanyl Citrate (Fentanyl 2ml Vial) 100 mcg 1X ONCE IV Last administered on t 15:20; Start 12/10/16 at 15:15; Stop 12/10/16 at 15:16; Status DC Vitals/I & O Vital Sign - Last 24 Hours 12/10/16 12/10/16 12/10/16 12/10/16 14:58 15:03 15:04 15:09 Pulse 95 95 95 100 Resp 14 14 14 14 Pulse Ox 95 95 95 94 O2 Delivery Nasal Cannula Nasal Cannula Nasal Cannula Nasal Cannula O2 Flow Rate 2.0 2.0 2.0 2.0 12/10/16 12/10/16 12/10/16 12/10/16 15:16 15:20 16:00 16:00 Temp 98.1 98.1 Pulse 95 90 Resp 14 14 16 16 B/P 149/79 Pulse Ox 95 93 99 99 O2 Delivery Nasal Cannula Nasal Cannula Nasal Cannula Nasal Cannula O2 Flow Rate 2.0 2.0 1.0 1.0 12/10/16 12/10/16 12/10/16 12/10/16 16:10 16:30 16:36 16:37 Temp 98.3 98.3 Pulse 93 93 Resp 18 18 B/P 150/83 150/83 Pulse Ox 96 96 O2 Delivery Nasal Cannula Nasal Cannula O2 Flow Rate 1.0 1.0 1.0 12/10/16 12/10/16 12/10/16 12/10/16 19:20 19:35 19:35 20:44 Temp 97.7 97.7 Pulse 94 Resp 20 20 B/P 142/72 Pulse Ox 97 96 95 O2 Delivery Room Air Nasal Cannula Nasal Cannula Nasal Cannula O2 Flow Rate 1.0 1.0 1.0 12/10/16 12/10/16 12/10/16 12/10/16 21:53 21:54 22:23 23:15 Temp 98.4 98.4 Pulse 94 85 Resp 20 18 20 B/P 142/72 130/62 Pulse Ox 95 95 97 O2 Delivery Nasal Cannula Nasal Cannula Nasal Cannula O2 Flow Rate 1.0 1.0 1.0 12/11/16 12/11/16 12/11/16 12/11/16 03:20 04:30 06:58 07:00 Temp 98.4 98.0 98.4 98.0 Pulse 87 90 91 Resp 18 20 B/P 132/65 132/65 131/73 Pulse Ox 96 97 90 O2 Delivery Nasal Cannula Nasal Cannula Nasal Cannula O2 Flow Rate 1.0 1.0 1.0 12/11/16 12/11/16 12/11/16 12/11/16 08:38 10:30 10:46 11:12 Temp 97.5 97.5 Pulse 91 82 Resp 20 B/P 131/73 115/61 Pulse Ox 95 O2 Delivery Nasal Cannula Nasal Cannula Nasal Cannula O2 Flow Rate 1.0 1.0 1.0 Intake and Output 12/10/16 12/10/16 12/11/16 14:59 22:59 06:59 Intake Total 900 ml 1130 ml Output Total 2250 ml 1450 ml Balance -1350 ml -320 ml EVELYNE ANTONIO MD Dec 11, 2016 12:07
[2016-12-11] MEDS: MORPHINE SULFATE 2 MG/ML DISP.SYRIN. IV PRN ×3 (12:35→21:09)
--- NOTE | 2016-12-11 12:35 | PDOC ---
PULMONARY PROGRESS NOTES Subjective no soa Vitals Vital Signs Date Time Temp Pulse Resp B/P Pulse Ox O2 Delivery O2 Flow Rate FiO2 12/11/16 11:12 97.5 82 20 115/61 95 Nasal Cannula 1.0 97.5 Comments ros as mentioned as above. discussed w rn, other sys otherwise neg ROS: No Nausea, No Abdominal Pain General: Alert, No acute distress HEENT: Other (nc at, perrl, nose clear, shallow oropharynx. neck, + jvd, no thyromegaly, no lap) Lungs: Other (decrease bs) Cardiovascular: S1, S2 Abdomen: Soft, Non-tender, Other (no mass) Neuro Exam: Alert Extremities: Other (2=edema) Skin: Warm Labs Laboratory Tests Test 12/09/16 18:24 12/09/16 23:58 12/10/16 04:50 12/10/16 06:04 Glucose (Fingerstick) 185mg/dL (70-99) 181mg/dL (70-99) 161mg/dL (70-99) White Blood Count 10.5x10^3/uL (4.0-11.0) Red Blood Count 2.71x10^6/uL (4.30-5.70) Hemoglobin 8.4g/dL (13.0-17.5) Hematocrit 25.3% (39.0-53.0) Mean Corpuscular Volume 93fL (79-100) Mean Corpuscular Hemoglobin 31pg (25-35) Mean Corpuscular Hemoglobin Concent 33g/dL (31-37) Red Cell Distribution Width 16.5% (11.5-14.5) Platelet Count 366x10^3/uL (140-400) Neutrophils (%) (Auto) 68% (31-73) Lymphocytes (%) (Auto) 12% (24-48) Monocytes (%) (Auto) 12% (0-9) Eosinophils (%) (Auto) 7% (0-3) Basophils (%) (Auto) 1% (0-3) Neutrophils # (Auto) 7.1x10^3uL (1.8-7.7) Lymphocytes # (Auto) 1.3x10^3/uL (1.0-4.8) Monocytes # (Auto) 1.3x10^3/uL (0.0-1.1) Eosinophils # (Auto) 0.7x10^3/uL (0.0-0.7) Basophils # (Auto) 0.1x10^3/uL (0.0-0.2) Sodium Level 142mmol/L (136-145) Potassium Level 4.5mmol/L (3.5-5.1) Chloride Level 106mmol/L (98-107) Carbon Dioxide Level 26mmol/L (21-32) Anion Gap 10 (6-14) Blood Urea Nitrogen 48mg/dL (8-26) Creatinine 1.5mg/dL (0.7-1.3) Estimated GFR (Cockcroft-Gault) 46.1 Glucose Level 182mg/dL (70-99) Calcium Level 8.9mg/dL (8.5-10.1) Phosphorus Level 4.4mg/dL (2.6-4.7) Magnesium Level 1.9mg/dL (1.8-2.4) Test 12/10/16 11:57 12/10/16 15:00 12/10/16 15:15 12/10/16 17:41 Glucose (Fingerstick) 159mg/dL (70-99) 194mg/dL (70-99) Special Test - Miscellaneous See separate report Body Fluid Total Protein 4.4g/dL (.) Body Fluid Lactate Dehydrogenase 470IU/L (.) Test 12/11/16 01:40 12/11/16 05:43 12/11/16 06:10 12/11/16 12:18 Glucose (Fingerstick) 151mg/dL (70-99) 106mg/dL (70-99) 164mg/dL (70-99) White Blood Count 11.3x10^3/uL (4.0-11.0) Red Blood Count 3.13x10^6/uL (4.30-5.70) Hemoglobin 9.4g/dL (13.0-17.5) Hematocrit 28.3% (39.0-53.0) Mean Corpuscular Volume 91fL (79-100) Mean Corpuscular Hemoglobin 30pg (25-35) Mean Corpuscular Hemoglobin Concent 33g/dL (31-37) Red Cell Distribution Width 16.5% (11.5-14.5) Platelet Count 419x10^3/uL (140-400) Neutrophils (%) (Auto) 65% (31-73) Lymphocytes (%) (Auto) 14% (24-48) Monocytes (%) (Auto) 14% (0-9) Eosinophils (%) (Auto) 7% (0-3) Basophils (%) (Auto) 1% (0-3) Neutrophils # (Auto) 7.3x10^3uL (1.8-7.7) Lymphocytes # (Auto) 1.6x10^3/uL (1.0-4.8) Monocytes # (Auto) 1.6x10^3/uL (0.0-1.1) Eosinophils # (Auto) 0.7x10^3/uL (0.0-0.7) Basophils # (Auto) 0.1x10^3/uL (0.0-0.2) Prothrombin Time 13.2SEC (11.7-14.0) Prothromb Time International Ratio 1.1 (0.8-1.1) Sodium Level 142mmol/L (136-145) Potassium Level 4.9mmol/L (3.5-5.1) Chloride Level 107mmol/L (98-107) Carbon Dioxide Level 24mmol/L (21-32) Anion Gap 11 (6-14) Blood Urea Nitrogen 52mg/dL (8-26) Creatinine 1.6mg/dL (0.7-1.3) Estimated GFR (Cockcroft-Gault) 42.8 BUN/Creatinine Ratio 31 (6-20) Glucose Level 110mg/dL (70-99) Calcium Level 9.4mg/dL (8.5-10.1) Total Bilirubin 1.3mg/dL (0.2-1.0) Aspartate Amino Transf (AST/SGOT) 31U/L (15-37) Alanine Aminotransferase (ALT/SGPT) 60U/L (16-63) Alkaline Phosphatase 249U/L (46-116) Total Protein 6.9g/dL (6.4-8.2) Albumin 3.0g/dL (3.4-5.0) Albumin/Globulin Ratio 0.8 (1.0-1.7) Laboratory Tests Test 12/10/16 15:00 12/10/16 15:15 12/10/16 17:41 12/11/16 01:40 Special Test - Miscellaneous See separate report Body Fluid Total Protein 4.4g/dL (.) Body Fluid Lactate Dehydrogenase 470IU/L (.) Glucose (Fingerstick) 194mg/dL (70-99) 151mg/dL (70-99) Test 12/11/16 05:43 12/11/16 06:10 12/11/16 12:18 Glucose (Fingerstick) 106mg/dL (70-99) 164mg/dL (70-99) White Blood Count 11.3x10^3/uL (4.0-11.0) Red Blood Count 3.13x10^6/uL (4.30-5.70) Hemoglobin 9.4g/dL (13.0-17.5) Hematocrit 28.3% (39.0-53.0) Mean Corpuscular Volume 91fL (79-100) Mean Corpuscular Hemoglobin 30pg (25-35) Mean Corpuscular Hemoglobin Concent 33g/dL (31-37) Red Cell Distribution Width 16.5% (11.5-14.5) Platelet Count 419x10^3/uL (140-400) Neutrophils (%) (Auto) 65% (31-73) Lymphocytes (%) (Auto) 14% (24-48) Monocytes (%) (Auto) 14% (0-9) Eosinophils (%) (Auto) 7% (0-3) Basophils (%) (Auto) 1% (0-3) Neutrophils # (Auto) 7.3x10^3uL (1.8-7.7) Lymphocytes # (Auto) 1.6x10^3/uL (1.0-4.8) Monocytes # (Auto) 1.6x10^3/uL (0.0-1.1) Eosinophils # (Auto) 0.7x10^3/uL (0.0-0.7) Basophils # (Auto) 0.1x10^3/uL (0.0-0.2) Prothrombin Time 13.2SEC (11.7-14.0) Prothromb Time International Ratio 1.1 (0.8-1.1) Sodium Level 142mmol/L (136-145) Potassium Level 4.9mmol/L (3.5-5.1) Chloride Level 107mmol/L (98-107) Carbon Dioxide Level 24mmol/L (21-32) Anion Gap 11 (6-14) Blood Urea Nitrogen 52mg/dL (8-26) Creatinine 1.6mg/dL (0.7-1.3) Estimated GFR (Cockcroft-Gault) 42.8 BUN/Creatinine Ratio 31 (6-20) Glucose Level 110mg/dL (70-99) Calcium Level 9.4mg/dL (8.5-10.1) Total Bilirubin 1.3mg/dL (0.2-1.0) Aspartate Amino Transf (AST/SGOT) 31U/L (15-37) Alanine Aminotransferase (ALT/SGPT) 60U/L (16-63) Alkaline Phosphatase 249U/L (46-116) Total Protein 6.9g/dL (6.4-8.2) Albumin 3.0g/dL (3.4-5.0) Albumin/Globulin Ratio 0.8 (1.0-1.7) Comments cxr reviewed, 4/6 resolved right effusion Impression . 1. Acute respiratory failure secondary to [id number] cardiopulmonary arrest. 2. Hyperlipidemia. 3. Diabetes. 4. Positive venous Doppler/ high prob V/Q, popliteal nonocclusive thrombus. 5. Metabolic acidosis sec to code, improved. 6. PE, Bilateral DVT/ PE- S/p IVC. 7. Ischemia CM 35-40%, cath no significant lesion 8. Acute kidney injury 9. anemia, 10. wheezing, acute bronchospasm, resolved 11. right effusion, bloody,doubt hemothorax, improved post thoracentesis, suspect related to pulmonary infarct 12. GPC bacteremia Plan . s/p right thoracentesis/ chest tube continue with suction monitor output and cxr In the setting of ongoing anemia, I would dc lovenox. d/w Dr White cath report noted up to chair resp status is compensated follow results of pleural fluid ZULEYMA ERVIN MD Dec 11, 2016 12:35
[2016-12-11] MEDS: TPN PER PHARMACY MC PRN (13:21)
[2016-12-11 14:43] VITALS: BP 140/77
--- NOTE | 2016-12-11 15:30 | RAD ---
Exam: AP portable chest. History: Chest tube. Comparison: 12/10/2016. Findings: Cardiac silhouette appears within normal limits for size. Right internal jugular central venous catheter is unchanged. Right pigtail pleural catheter is unchanged. No pneumothorax is identified. No significant pleural effusion is seen. Density is seen at the right lung base. Impression: 1. Density at the right lung base, could be atelectasis versus pneumonia.
[2016-12-11 19:20] VITALS: BP 131/72
[2016-12-11] MEDS: INSULIN DETEMIR 300 UNITS/3 ML INSULN.PEN. SQ SCH (20:51)
[2016-12-11] MEDS: LORAZEPAM 2 MG/ML VIAL. IV PRN (21:09)
[2016-12-11] MEDS ORDERED: [UNRECOGNIZED DRUG - OTHER] IV SCH ×10 (22:00)
[2016-12-11] MEDS ORDERED: TOTAL PARENTERAL NUTRITION IV SCH ×10 (22:00)
[2016-12-11] MEDS ORDERED: AMINO ACIDS IV SCH ×10 (22:00)
[2016-12-11] MEDS ORDERED: DEXTROSE 70% IV SCH ×10 (22:00)
[2016-12-11 23:25] VITALS: BP 127/69
[2016-12-12 03:25] VITALS: BP 120/68
[2016-12-12] MEDS: METOPROLOL TARTRATE 5 MG/5 ML VIAL. IVP SCH ×4 (04:03→23:00)
[2016-12-12] MEDS: LORAZEPAM 2 MG/ML VIAL. IV PRN (04:03)
[2016-12-12] MEDS: MORPHINE SULFATE 2 MG/ML DISP.SYRIN. IV PRN (04:03)
[2016-12-12] MEDS: INSULIN ASPART 300 UNITS/3 ML INSULN.PEN SQ SCH ×3 (06:39→17:02)
[2016-12-12 06:54] LABS: BASO # 0.1 x10^3/uL (0.0-0.2); BASO % 1 % (0-3); EOS % 9 % (0-3); HEMATOCRIT 26.4 % (39.0-53.0); HEMOGLOBIN 8.7 g/dL (13.0-17.5); LYMPH # 1.2 x10^3/uL (1.0-4.8); LYMPH % 12 % (24-48); MEAN CORPUSCULAR HEMOGLOBIN 30 pg (25-35); MEAN CORPUSCULAR HGB CONC 33 g/dL (31-37); MEAN CORPUSCULAR VOLUME 92 fL (79-100); MONO % 13 % (0-9); NEUT % 65 % (31-73); PLATELET COUNT 354 x10^3/uL (140-400); RED BLOOD COUNT 2.87 x10^6/uL (4.30-5.70); RED CELL DISTRIBUTION WIDTH 16.5 % (11.5-14.5); WHITE BLOOD COUNT 9.5 x10^3/uL (4.0-11.0)
[2016-12-12 07:00] VITALS: BP 139/78
[2016-12-12] MEDS ORDERED: PROCHLORPERAZINE 10 MG/2 ML VIAL. IV PRN (07:00)
[2016-12-12] MEDS ORDERED: ONDANSETRON PF 4 MG/2 ML VIAL. IV PRN (07:00)
[2016-12-12] MEDS ORDERED: LIDOCAINE 1% 1 ML SYRINGE. ID PRN (07:00)
[2016-12-12] MEDS ORDERED: IV RINGERS,LACTATED 1000ML 1,000 ML IV SCH (07:00)
[2016-12-12] MEDS ORDERED: HYDROMORPHONE 2 MG/ML VIAL. IV PRN (07:00)
[2016-12-12] MEDS ORDERED: MORPHINE SULFATE 2 MG/ML DISP.SYRIN. IV PRN (07:00)
[2016-12-12] MEDS ORDERED: FENTANYL PF 100 MCG/2 ML VIAL. IV PRN ×2 (07:00)
[2016-12-12 07:07] LABS: CREATININE 1.7 mg/dL (0.7-1.3); GFR 39.9; POTASSIUM 4.9 mmol/L (3.5-5.1)
[2016-12-12] MEDS: IPRATROPIUM BROMIDE 0.5 MG/2.5 ML NEBU. NEB SCH ×4 (08:04→19:54)
--- NOTE | 2016-12-12 08:43 | RAD ---
Exam: AP portable chest. History: Confusion, shortness of air. Comparison: 12/11/2016. Findings: Cardiac silhouette appears within normal limits for size. Right internal jugular central venous catheter is unchanged. Pigtail catheter involving the right lung base is also unchanged. No pneumothorax or significant pleural effusion is identified. There is some configuration of the right lung base, but there is a development of mild patchy density involving the right midlung zone. Findings could represent atelectasis versus developing airspace disease. Impression: 1. Improved aeration of the right lung base, but patchy density involving the right midlung zone. Findings could represent atelectasis versus developing airspace disease.
--- NOTE | 2016-12-12 08:47 | PDOC ---
Subjective: Subjective: onc f/u- PE/ DVT Pt with chest tube in place. Reports "feels better," less SOB. PEG on hold until chest tube out. Objective: Vital Signs: Vital Signs Date Time Temp Pulse Resp B/P Pulse Ox O2 Delivery O2 Flow Rate FiO2 12/12/16 08:27 Nasal Cannula 1.0 12/12/16 08:05 94 12/12/16 07:00 97.4 94 20 139/78 97.4 Physical Exam: Extremities: Other (1+ edema all extremities) General: Alert, Oriented X3, Other (very fatigued) Lungs: Other (chest tube in place) Psych/Mental Status: Mental status NL Labs/Imaging: Hgb remaining stable Assessment/Plan A/P: A/P: 1. 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 However, he had hemorrhagic pleural effusion s/p chest tube 12/10 possibly due to PE, hence holding lovenox until chest tube removed. 2. Anemia due to critical illness No further evidence of GI bleed. Hgb has actually been improving. 3. S/p cardiac arrest, no clear cardiac cause, likely to due PE. 4. CKD- stable 5. Hemorrhagic pleural effusion due to PE - chest tube management per Dr Gray 6. Dysphagia- PEG possibly next week when chest tube removed. Will continue holding anticoag until chest tube out and PEG placed. Dr. White will be covering this weekend if any needs arise. EVELYN LABOY DO Dec 12, 2016 08:47
[2016-12-12] MEDS: ASPIRIN 300 MG SUPP.RECT PR SCH (09:00)
--- NOTE | 2016-12-12 10:27 | PDOC ---
Objective: Objective: PEG cancelled w/ chest tube. Vital Signs: Vital Signs Date Time Temp Pulse Resp B/P Pulse Ox O2 Delivery O2 Flow Rate FiO2 12/12/16 08:27 Nasal Cannula 1.0 12/12/16 08:05 94 12/12/16 07:00 97.4 94 20 139/78 97.4 Labs: Laboratory Tests Test 12/11/16 12:18 12/11/16 18:22 12/11/16 23:40 12/11/16 23:58 Glucose (Fingerstick) 164mg/dL (70-99) 192mg/dL (70-99) 202mg/dL (70-99) 211mg/dL (70-99) Test 12/12/16 06:19 Glucose (Fingerstick) 207mg/dL (70-99) Imaging: CXR 12/12/16 Impression: 1. Improved aeration of the right lung base, but patchy density involving the right midlung zone. Findings could represent atelectasis versus developing airspace disease. PE: GEN: NAD LUNGS: clear anteriorly HEART: RRR ABD: NABS, soft NEURO/PSYCH: sleeping, did not awaken during exam A/P: Dysphagia -following cardiac arrest, resp failure/intubation -on TPN Hemothorax s/p chest tube, anemia -Hgb stable, anticoags held, on IV PPI -- Hold on PEG w/ chest tube. YAMEL CUEVAS Dec 12, 2016 10:26
--- NOTE | 2016-12-12 10:45 | PDOC ---
PROGRESS NOTES Chief Complaint Chief Complaint S/P VT/VF Cardiac arrest Acute respiratory failure possibly 2/2 PE; extubated 11/27 DVT bilateral LEs - IVC filter placed 11/29 Acute blood loss anemia s/p transfusion dysphagia Silent Aspiration; failed swallow study HFrEF [place] vs. CKD DM II bactremia with Peptostreptococcus sp. on Zosyn (day 13) HLD leukocytosis R hemothorax s/p thoracentesis with indwelling chest tube (12/11) History of Present Illness History of Present Illness 200 cc drainage from chest tube last night 100 cc this AM Pt up inc hair Remains weak but denies CP or SOA Lovenox BID and ASA CO on hold bec of hemothorax PLans on PEG once Chest tube out Family looking at [facility], does not want LTAC Full code Hgb stable Brown in bec of urinary retention (had 2 attempts of dc brown but failed) PLAn: Chest tube per pulmo Remains nPO bec fails [employer] TPN running PEG once chest tibe out (plans for early next week) [facility] upon dc when accepted 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 hgb Daily PT/OT WIll need life long AC per heme onc bec of the PE, DVT etc Vitals Vitals Vital Signs Date Time Temp Pulse Resp B/P Pulse Ox O2 Delivery O2 Flow Rate FiO2 12/12/16 08:27 Nasal Cannula 1.0 12/12/16 08:05 94 12/12/16 07:00 97.4 94 20 139/78 97.4 Physical Exam General: Alert, Oriented X3, Other (very fatigued) Heart: Normal S1 Lungs: Other (decrease bs) Abdomen: Soft, No tenderness Extremities: Other (1+ edema all extremities) Skin: No rashes, Other (no bruising) Labs LABS Laboratory Tests Test 12/11/16 12:18 12/11/16 18:22 12/11/16 23:40 12/11/16 23:58 Glucose (Fingerstick) 164mg/dL (70-99) 192mg/dL (70-99) 202mg/dL (70-99) 211mg/dL (70-99) Test 12/12/16 06:19 12/12/16 06:20 Glucose (Fingerstick) 207mg/dL (70-99) White Blood Count 9.5x10^3/uL (4.0-11.0) Red Blood Count 2.87x10^6/uL (4.30-5.70) Hemoglobin 8.7g/dL (13.0-17.5) Hematocrit 26.4% (39.0-53.0) Mean Corpuscular Volume 92fL (79-100) Mean Corpuscular Hemoglobin 30pg (25-35) Mean Corpuscular Hemoglobin Concent 33g/dL (31-37) Red Cell Distribution Width 16.5% (11.5-14.5) Platelet Count 354x10^3/uL (140-400) Neutrophils (%) (Auto) 65% (31-73) Lymphocytes (%) (Auto) 12% (24-48) Monocytes (%) (Auto) 13% (0-9) Eosinophils (%) (Auto) 9% (0-3) Basophils (%) (Auto) 1% (0-3) Neutrophils # (Auto) 6.2x10^3uL (1.8-7.7) Lymphocytes # (Auto) 1.2x10^3/uL (1.0-4.8) Monocytes # (Auto) 1.2x10^3/uL (0.0-1.1) Eosinophils # (Auto) 0.9x10^3/uL (0.0-0.7) Basophils # (Auto) 0.1x10^3/uL (0.0-0.2) Sodium Level 137mmol/L (136-145) Potassium Level 4.9mmol/L (3.5-5.1) Chloride Level 105mmol/L (98-107) Carbon Dioxide Level 24mmol/L (21-32) Anion Gap 8 (6-14) Blood Urea Nitrogen 61mg/dL (8-26) Creatinine 1.7mg/dL (0.7-1.3) Estimated GFR (Cockcroft-Gault) 39.9 Glucose Level 225mg/dL (70-99) Calcium Level 9.0mg/dL (8.5-10.1) Review of Systems Review of Systems weak, no soa, no cp, bloody urine Assessment and Plan Assessmemt and Plan Problems Medical Problems: (1) Cardiac arrest Status: Acute Problems: Comment Review of Relevant I have reviewed the following items rodolfo (where applicable) has been applied. Labs Laboratory Tests Test 12/10/16 11:57 12/10/16 15:00 12/10/16 15:15 12/10/16 17:41 Glucose (Fingerstick) 159mg/dL (70-99) 194mg/dL (70-99) Special Test - Miscellaneous See separate report Body Fluid Glucose 177mg/dL (.) Body Fluid Total Protein 4.4g/dL (.) Body Fluid Lactate Dehydrogenase 470IU/L (.) Test 12/11/16 01:40 12/11/16 05:43 12/11/16 06:10 12/11/16 12:18 Glucose (Fingerstick) 151mg/dL (70-99) 106mg/dL (70-99) 164mg/dL (70-99) White Blood Count 11.3x10^3/uL (4.0-11.0) Red Blood Count 3.13x10^6/uL (4.30-5.70) Hemoglobin 9.4g/dL (13.0-17.5) Hematocrit 28.3% (39.0-53.0) Mean Corpuscular Volume 91fL (79-100) Mean Corpuscular Hemoglobin 30pg (25-35) Mean Corpuscular Hemoglobin Concent 33g/dL (31-37) Red Cell Distribution Width 16.5% (11.5-14.5) Platelet Count 419x10^3/uL (140-400) Neutrophils (%) (Auto) 65% (31-73) Lymphocytes (%) (Auto) 14% (24-48) Monocytes (%) (Auto) 14% (0-9) Eosinophils (%) (Auto) 7% (0-3) Basophils (%) (Auto) 1% (0-3) Neutrophils # (Auto) 7.3x10^3uL (1.8-7.7) Lymphocytes # (Auto) 1.6x10^3/uL (1.0-4.8) Monocytes # (Auto) 1.6x10^3/uL (0.0-1.1) Eosinophils # (Auto) 0.7x10^3/uL (0.0-0.7) Basophils # (Auto) 0.1x10^3/uL (0.0-0.2) Prothrombin Time 13.2SEC (11.7-14.0) Prothromb Time International Ratio 1.1 (0.8-1.1) Sodium Level 142mmol/L (136-145) Potassium Level 4.9mmol/L (3.5-5.1) Chloride Level 107mmol/L (98-107) Carbon Dioxide Level 24mmol/L (21-32) Anion Gap 11 (6-14) Blood Urea Nitrogen 52mg/dL (8-26) Creatinine 1.6mg/dL (0.7-1.3) Estimated GFR (Cockcroft-Gault) 42.8 BUN/Creatinine Ratio 31 (6-20) Glucose Level 110mg/dL (70-99) Calcium Level 9.4mg/dL (8.5-10.1) Total Bilirubin 1.3mg/dL (0.2-1.0) Aspartate Amino Transf (AST/SGOT) 31U/L (15-37) Alanine Aminotransferase (ALT/SGPT) 60U/L (16-63) Alkaline Phosphatase 249U/L (46-116) Total Protein 6.9g/dL (6.4-8.2) Albumin 3.0g/dL (3.4-5.0) Albumin/Globulin Ratio 0.8 (1.0-1.7) Test 12/11/16 18:22 12/11/16 23:40 12/11/16 23:58 12/12/16 06:19 Glucose (Fingerstick) 192mg/dL (70-99) 202mg/dL (70-99) 211mg/dL (70-99) 207mg/dL (70-99) Test 12/12/16 06:20 White Blood Count 9.5x10^3/uL (4.0-11.0) Red Blood Count 2.87x10^6/uL (4.30-5.70) Hemoglobin 8.7g/dL (13.0-17.5) Hematocrit 26.4% (39.0-53.0) Mean Corpuscular Volume 92fL (79-100) Mean Corpuscular Hemoglobin 30pg (25-35) Mean Corpuscular Hemoglobin Concent 33g/dL (31-37) Red Cell Distribution Width 16.5% (11.5-14.5) Platelet Count 354x10^3/uL (140-400) Neutrophils (%) (Auto) 65% (31-73) Lymphocytes (%) (Auto) 12% (24-48) Monocytes (%) (Auto) 13% (0-9) Eosinophils (%) (Auto) 9% (0-3) Basophils (%) (Auto) 1% (0-3) Neutrophils # (Auto) 6.2x10^3uL (1.8-7.7) Lymphocytes # (Auto) 1.2x10^3/uL (1.0-4.8) Monocytes # (Auto) 1.2x10^3/uL (0.0-1.1) Eosinophils # (Auto) 0.9x10^3/uL (0.0-0.7) Basophils # (Auto) 0.1x10^3/uL (0.0-0.2) Sodium Level 137mmol/L (136-145) Potassium Level 4.9mmol/L (3.5-5.1) Chloride Level 105mmol/L (98-107) Carbon Dioxide Level 24mmol/L (21-32) Anion Gap 8 (6-14) Blood Urea Nitrogen 61mg/dL (8-26) Creatinine 1.7mg/dL (0.7-1.3) Estimated GFR (Cockcroft-Gault) 39.9 Glucose Level 225mg/dL (70-99) Calcium Level 9.0mg/dL (8.5-10.1) Laboratory Tests Test 12/11/16 12:18 12/11/16 18:22 12/11/16 23:40 12/11/16 23:58 Glucose (Fingerstick) 164mg/dL (70-99) 192mg/dL (70-99) 202mg/dL (70-99) 211mg/dL (70-99) Test 12/12/16 06:19 12/12/16 06:20 Glucose (Fingerstick) 207mg/dL (70-99) White Blood Count 9.5x10^3/uL (4.0-11.0) Red Blood Count 2.87x10^6/uL (4.30-5.70) Hemoglobin 8.7g/dL (13.0-17.5) Hematocrit 26.4% (39.0-53.0) Mean Corpuscular Volume 92fL (79-100) Mean Corpuscular Hemoglobin 30pg (25-35) Mean Corpuscular Hemoglobin Concent 33g/dL (31-37) Red Cell Distribution Width 16.5% (11.5-14.5) Platelet Count 354x10^3/uL (140-400) Neutrophils (%) (Auto) 65% (31-73) Lymphocytes (%) (Auto) 12% (24-48) Monocytes (%) (Auto) 13% (0-9) Eosinophils (%) (Auto) 9% (0-3) Basophils (%) (Auto) 1% (0-3) Neutrophils # (Auto) 6.2x10^3uL (1.8-7.7) Lymphocytes # (Auto) 1.2x10^3/uL (1.0-4.8) Monocytes # (Auto) 1.2x10^3/uL (0.0-1.1) Eosinophils # (Auto) 0.9x10^3/uL (0.0-0.7) Basophils # (Auto) 0.1x10^3/uL (0.0-0.2) Sodium Level 137mmol/L (136-145) Potassium Level 4.9mmol/L (3.5-5.1) Chloride Level 105mmol/L (98-107) Carbon Dioxide Level 24mmol/L (21-32) Anion Gap 8 (6-14) Blood Urea Nitrogen 61mg/dL (8-26) Creatinine 1.7mg/dL (0.7-1.3) Estimated GFR (Cockcroft-Gault) 39.9 Glucose Level 225mg/dL (70-99) Calcium Level 9.0mg/dL (8.5-10.1) Microbiology 11/28/16 Blood Culture - Final, Complete NO GROWTH AFTER 5 DAYS 12/10/16 Anaerobic/Aerobic Culture - Preliminary, Resulted 12/10/16 Anaerobic Culture Result 1 (ROSIE) - Preliminary, Resulted 12/10/16 Aerobic Culture - Preliminary, Resulted 12/10/16 Aerobic Culture Result 1 (ROSIE) - Preliminary, Resulted 11/24/16 Stool Culture - Final, Complete 11/24/16 Stool Culture Result 1 (ROSIE) - Final, Complete 11/24/16 Campylobacter Antigen Assay - Final, Complete 11/24/16 Campylobactor Result 1 - Final, Complete 11/24/16 Shiga Toxin Test - Final, Complete 12/09/16 Urine Culture - Final, Complete 12/09/16 Urine Culture Result 1 (ROSIE) - Final, Complete Medications Current Medications Sodium Chloride 1,000 ml @ 1,000 mls/hr Q1H IV Last administered on 11/24/16 06:50; Start 11/24/16 at 06:50; Stop 11/24/16 at 07:49; Status DC Epinephrine HCl/ Sodium Chloride (Adrenalin/Iv Sodium Chloride 0.9% 250ml) 254 ml @ 0 mls/hr CONT PRN IV SEE I/O RECORD Last administered on 11/26/16 03:05; Start 11/24/16 at 07:30; Stop 11/27/16 at 08:25; Status DC Insulin Aspart (Novolog) 0-7 UNITS TIDWMEALS SQ ; Start 11/24/16 at 08:00; Stop 11/24/16 at 15:36; Status DC Dextrose 12.5 gm 12.5 gm PRN Q15MIN PRN IV SEE COMMENTS; Start 11/24/16 at 07: 45; Stop 11/25/16 at 23:34; Status DC Sodium Chloride (Iv Sodium Chloride 0.9% 1000ml Bag) 1,000 ml @ 125 mls/hr 1X ONCE IV Last administered on 11/24/16 07:52; Start 11/24/16 at 08:00; Stop at 08:20; Status DC Vancomycin HCl (Vanco Per Pharmacy) 1 each PRN DAILY PRN MC SEE COMMENTS Last administered on 11/24/16 11:26; Start 11/24/16 at 08:15; Stop 11/24/16 at 13:06 ; Status DC Piperacillin Sod/ Tazobactam Sod 1 each 1 each PRN DAILY PRN MC SEE COMMENTS; Start 11/24/16 at 08:15; Stop 11/24/16 at 13:06; Status DC Sodium Bicarbonate 50 meq/Sodium Chloride 1,050 ml @ 125 mls/hr Q8H24M IV Last administered on 11/26/16 11:24; Start 11/24/16 at 08:30; Stop 11/26/16 at 12:41; Status DC Vancomycin HCl 2 gm/Sodium Chloride 500 ml @ 250 mls/hr ONCE ONCE IV Last administered on 11/24/16 10:15; Start 11/24/16 at 08:30; Stop 11/24/16 at 10:29 ; Status DC Piperacillin Sod/ Tazobactam Sod 4.5 gm/Sodium Chloride 100 ml @ 200 mls/hr Q6HRS IV Last administered on 11/24/16 10:10; Start 11/24/16 at 08:30; Stop at 11:15; Status DC Sodium Chloride (Iv Sodium Chloride 0.9% 1000ml Bag) 1,000 ml @ 1,000 mls/hr Q1H IV Last administered on 11/24/16 10:09; Start 11/24/16 at 08:39; Stop at 11:47; Status DC Fentanyl Citrate (Fentanyl 2ml Vial) 25 mcg PRN Q30MIN PRN IV SED Last administered on 11/30/16 17:24; Start 11/24/16 at 08:45; Stop 12/04/16 at 06:29 ; Status DC Lorazepam 1 mg 1 mg PRN Q30MIN PRN IV SEDATION Last administered on 11/25/16 12:26; Start 11/24/16 at 08:45; Stop 11/28/16 at 19:45; Status DC Fentanyl Citrate 30 ml @ 2.5 mls/hr CONT PRN PRN IV IVF Last administered on 07:40; Start 11/24/16 at 08:45; Stop 11/26/16 at 17:49; Status DC Propofol (Diprivan) 100 ml @ 0 mls/hr CONT PRN IV SEE I/O RECORD Last administered on 11/26/16 07:38; Start 11/24/16 at 08:45; Stop 11/26/16 at 17:49 ; Status DC Vecuronium Drexel (Norcuron Bolus) 9 mg PRN Q30MIN PRN IV SHIVERING Last administered on 11/24/16 17:38; Start 11/24/16 at 08:45; Stop 11/26/16 at 17:49 ; Status DC Meperidine HCl (Demerol) 12.5 mg PRN Q30MIN PRN IV SHIVERING Last administered on 11/24/16 22:21; Start 11/24/16 at 08:45; Stop 11/24/16 at 22:21; Status DC Multi-Ingred Cream/Lotion/Oil/ Oint (Artificial Tears Eye Oint) 1 radha PRN Q6HRS PRN OU 0.5 INCH FOR DRY EYE; Start 11/24/16 at 08:45 Famotidine (Pepcid) 20 mg QHS IVP Last administered on 11/27/16 21:12; Start 11/24/16 at 21:00; Stop 11/28/16 at 09:46; Status DC Aspirin (Aspirin) 300 mg DAILY CO Last administered on 12/08/16 09:59; Start at 09:00 Sodium Chloride (Normal Saline Flush) 3 ml QSHIFT PRN IV AFTER MEDS AND BLOOD DRAWS; Start 11/24/16 at 08:45 Acetaminophen (Tylenol) 650 mg Q6HRS NG ; Start 11/24/16 at 12:00; Stop at 11:59; Status DC Acetaminophen (Tylenol) 650 mg PRN Q6HRS PRN CO MILD PAIN / TEMP; Start at 08:45; Stop 11/25/16 at 23:35; Status DC Acetaminophen (Tylenol) 650 mg PRN Q6HRS PRN NG MILD PAIN / TEMP; Start at 08:45 Info 1 ea 1 ea DAILY PRN MC PER PROTOCOL; Start 11/26/16 at 08:45; Stop at 09:17; Status DC Insulin Human Regular 150 unit/ Sodium Chloride 151.5 ml @ 9.16 mls/hr CONT PRN IV SEE I/O RECORD Last administered on 11/24/16 10:13; Start 11/24/16 at 09 :30; Stop 11/27/16 at 08:25; Status DC Piperacillin Sod/ Tazobactam Sod 3.375 gm/Sodium Chloride 50 ml @ 100 mls/hr Q6HRS IV ; Start 11/24/16 at 18:00; Stop 11/24/16 at 18:00; Status DC Vancomycin HCl/ Sodium Chloride (Iv Sodium Chloride 0.9% 500ml Bag) 500 ml @ 250 mls/hr Q24H IV ; Start 11/25/16 at 10:00; Stop 11/25/16 at 10:00; Status DC Vancomycin HCl 1 each 1 each 1X ONCE MC ; Start 11/26/16 at 09:30; Stop at 09:30; Status DC Sodium Chloride (Iv Sodium Chloride 0.9% 1000ml Bag) 1,000 ml @ 1,000 mls/hr 1X ONCE IV Last administered on 11/24/16 11:00; Start 11/24/16 at 11:00; Stop 11/24/16 at 11:59; Status DC Insulin Detemir (Levemir) 12 units QHS SQ ; Start 11/24/16 at 21:00; Stop at 21:00; Status DC Insulin Aspart (Novolog) 10 units 1X ONCE SQ ; Start 11/24/16 at 15:30; Stop at 20:10; Status DC Insulin Aspart (Novolog) 0-7 UNITS Q4HRS SQ ; Start 11/24/16 at 16:00; Stop at 20:10; Status DC Heparin Sodium (Porcine) 8100 unit 8,100 unit 1X ONCE IV Last administered on 11/24/16 17:24; Start 11/24/16 at 17:00; Stop 11/24/16 at 17:01; Status DC Heparin Sodium/ Dextrose 500 ml @ 0 mls/hr CONT PRN IV SEE I/O RECORD Last administered on 11/28/16 02:06; Start 11/24/16 at 16:45; Stop 11/28/16 at 17:12 ; Status DC Heparin Sodium (Porcine) 3,000 unit PRN Q6HRS PRN IV FOR UFH LEVEL LESS THAN 0.2; Start 11/24/16 at 16:45; Stop 11/28/16 at 17:12; Status DC Heparin Sodium (Porcine) 1,500 unit PRN Q6HRS PRN IV FOR UFH LEVEL 0.2 - 0.29 Last administered on 11/26/16 12:08; Start 11/24/16 at 16:45; Stop 11/28/16 at 17:12; Status DC Info 1 each 1 each PRN DAILY PRN MC SEE COMMENTS Last administered on 10:03; Start 11/24/16 at 17:00; Stop 11/28/16 at 17:13; Status DC Piperacillin Sod/ Tazobactam Sod 3.375 gm/Sodium Chloride 50 ml @ 100 mls/hr Q6HRS IV Last administered on 12/07/16 05:21; Start 11/25/16 at 00:00; Stop 12/07/16 at 12:10; Status DC Vancomycin HCl/ Sodium Chloride (Iv Sodium Chloride 0.9% 250ml) 250 ml @ 250 mls/hr 1X ONCE IV ; Start 11/24/16 at 21:30; Stop 11/24/16 at 22:29; Status UNV Vancomycin HCl 1 each 1 each PRN DAILY PRN MC SEE COMMENTS Last administered on 11/25/16 03:30; Start 11/25/16 at 01:00; Stop 11/25/16 at 08:57; Status DC Vancomycin HCl/ Sodium Chloride (Iv Sodium Chloride 0.9% 500ml Bag) 500 ml @ 250 mls/hr Q24H IV ; Start 11/25/16 at 10:00; Stop 11/25/16 at 10:00; Status DC Vancomycin HCl 1 each 1X ONCE MC ; Start 11/26/16 at 09:30; Stop 11/26/16 at 09 :30; Status DC Enoxaparin Sodium (Lovenox Per Pharmacy Prophylaxis Dosing) 1 each PRN DAILY PRN MC SEE COMMENTS; Start 11/25/16 at 08:45; Status UNV Chlorhexidine Gluconate 15 ml 15 ml BID MM Last administered on 11/26/16 08:37 ; Start 11/25/16 at 21:00; Stop 11/26/16 at 17:49; Status DC Magnesium Sulfate/ Dextrose 50 ml @ 25 mls/hr PRN DAILY PRN IV for Mag < 1.7 on am labs Last administered on 11/26/16 05:29; Start 11/25/16 at 09:45; Stop 11/27/16 at 08:47; Status DC Magnesium Sulfate/ Dextrose 50 ml @ 25 mls/hr PRN DAILY PRN IV for Mag < 1.7 on am labs; Start 11/25/16 at 09:45; Status UNV Sodium Chloride 500 ml @ 0 mls/hr QID PRN IV UO< 30cc/hr over previous 6hrs Last administered on 11/25/16 10:54; Start 11/25/16 at 09:45; Stop 11/27/16 at 11:25; Status DC Magnesium Sulfate/ Dextrose (Magnesium Sulfate PREMIX 2GM) 50 ml @ 25 mls/hr 1X ONCE IV Last administered on 11/25/16 13:28; Start 11/25/16 at 12:30; Stop 11/25/16 at 14:29; Status DC Lidocaine/Sodium Bicarbonate 20 ml 20 ml STK-MED ONCE IJ ; Start 11/25/16 at 12: 35; Stop 11/25/16 at 12:36; Status DC Heparin Sodium/ Sodium Chloride 500 ml @ As Directed STK-MED ONCE .ROUTE ; Start 11/25/16 at 12:35; Stop 11/25/16 at 12:36; Status DC Lidocaine/Sodium Bicarbonate (Buffered Lidocaine 1%) 3 ml 1X ONCE IJ Last administered on 11/25/16 13:15; Start 11/25/16 at 13:15; Stop 11/25/16 at 13:16 ; Status DC Heparin Sodium/ Sodium Chloride 60 unit 1X ONCE IV Last administered on 13:16; Start 11/25/16 at 13:15; Stop 11/25/16 at 13:16; Status DC Amiodarone HCl (Cordarone) 450 mg STK-MED ONCE .ROUTE ; Start 11/25/16 at 12:00 ; Stop 11/25/16 at 14:56; Status DC Epinephrine HCl (Adrenalin) 30 mg STK-MED ONCE .ROUTE ; Start 11/25/16 at 12:00 ; Stop 11/25/16 at 14:56; Status DC Atropine Sulfate 1.5 mg STK-MED ONCE .ROUTE ; Start 11/25/16 at 12:00; Stop at 14:56; Status DC Epinephrine HCl 4 mg STK-MED ONCE .ROUTE ; Start 11/25/16 at 12:00; Stop at 14:56; Status DC Sodium Bicarbonate 150 meq 150 meq STK-MED ONCE .ROUTE ; Start 11/25/16 at 12:00 ; Stop 11/25/16 at 14:56; Status DC Midazolam HCl (Versed 100mg/ 100ml Premix) 100 ml @ 0 mls/hr CONT PRN IV SEE I/ O RECORD; Start 11/25/16 at 23:30; Stop 11/26/16 at 17:49; Status DC Insulin Aspart (Novolog) 0-7 UNITS TIDWMEALS SQ Last administered on 11/27/16 19:43; Start 11/26/16 at 08:00; Stop 11/28/16 at 01:01; Status DC Dextrose 12.5 gm PRN Q15MIN PRN IV SEE COMMENTS; Start 11/25/16 at 23:30; Stop 12/05/16 at 14:19; Status DC Acetaminophen 650 mg 650 mg PRN Q6HRS PRN CO MILD PAIN / TEMP Last administered on 11/28/16 04:19; Start 11/25/16 at 23:30; Stop 12/02/16 at 13:29 ; Status DC Potassium Chloride 50 ml @ 50 mls/hr Q1H IV Last administered on 11/26/16 11: 23; Start 11/26/16 at 10:30; Stop 11/26/16 at 12:29; Status DC Sodium Bicarbonate/ Sterile Water 1,100 ml @ 100 mls/hr Q11H IV Last administered on 11/27/16 00:56; Start 11/26/16 at 13:00; Stop 11/27/16 at 11:25 ; Status DC Info 1 each 1 each PRN DAILY PRN MC SEE COMMENTS Last administered on 12/11/16 13:21; Start 11/26/16 at 12:45 Calcium Chloride/ Sodium Chloride (Iv Sodium Chloride 0.9% 100ml) 120 ml @ 240 mls/hr 1X ONCE IV Last administered on 11/26/16 13:22; Start 11/26/16 at 13: 15; Stop 11/26/16 at 13:44; Status DC Ondansetron HCl 4 mg 4 mg PRN Q6HRS PRN IV NAUSEA/VOMITING Last administered on 12/03/16 21:17; Start 11/26/16 at 13:45; Stop 12/04/16 at 06:30; Status DC Sodium Chloride/ Potassium Chloride/ Magnesium Sulfate/ Calcium Gluconate/ Multivitamins/ Chromium/Copper/ Manganese/Seleni/ Zn/Total Parenteral Nutrition/ Amino Acids/Dextrose/ Fat Emulsion Intravenous (Sodium Chloride/ Infuvite Adult / Multitrace-5 Conc/ Tpn - Tpn Fluid/ Trophami... 1,594.468 ml @ 66.436 m... TPN CONT IV Last administered on 11/26/16 21:27; Start 11/26/16 at 22:00; Stop 11/27/16 at 21:59; Status DC Albuterol Sulfate 2.5 mg 2.5 mg 1X ONCE NEB Last administered on 11/27/16 07: 21; Start 11/27/16 at 06:45; Stop 11/27/16 at 06:46; Status DC Magnesium Sulfate/ Dextrose 50 ml @ 25 mls/hr PRN DAILY PRN IV for Mag < 1.7 on am labs; Start 11/27/16 at 08:45 Sodium Chloride 90 meq/Potassium Chloride 50 meq/ Magnesium Sulfate 10 meq/ Calcium Gluconate 10 meq/ Multivitamins 10 ml/Chromium/ Copper/Manganese/ Seleni /Zn 1 ml/ Total Parenteral Nutrition/Amino Acids/Dextrose/ Fat Emulsion Intravenous 1,594.468 ml @ 66.436 m... TPN CONT IV ; Start 11/27/16 at 22:00; Stop 11/28/16 at 21:59; Status Cancel Potassium Chloride/ Magnesium Sulfate/ Calcium Gluconate/ Multivitamins/ Chromium/Copper/ Manganese/Seleni/ Zn/Total Parenteral Nutrition/Amino Acids/ Dextrose/ Fat Emulsion Intravenous (Infuvite Adult/ Multitrace-5 Conc/ Tpn - Tpn Fluid/ Trophamine/ Dextrose 70%-Water Iv So... 1,512 ml @ 63 mls/hr TPN CONT IV Last administered on 11/27/16 21:22; Start 11/27/16 at 22:00; Stop at 21:59; Status DC Nitroglycerin 0.4 mg 0.4 mg STK-MED ONCE SL Last administered on 11/27/16 11: 26; Start 11/27/16 at 11:16; Stop 11/27/16 at 11:17; Status DC Albumin Human (Albuminar) 100 ml @ 100 mls/hr TID IV Last administered on 11/29 08:56; Start 11/27/16 at 12:00; Stop 11/29/16 at 09:59; Status DC Sodium Bicarbonate 50 meq 1X ONCE IV Last administered on 11/27/16 13:24; Start 11/27/16 at 12:45; Stop 11/27/16 at 12:46; Status DC Hydralazine HCl (Apresoline) 10 mg PRN Q4HRS PRN IVP ELEVATED BP, SEE COMMENTS Last administered on 12/03/16 20:18; Start 11/27/16 at 12:45 Metoprolol Tartrate (Lopressor) 5 mg Q6HRS IVP Last administered on 11/27/16 15:40; Start 11/27/16 at 15:30; Stop 11/27/16 at 19:11; Status DC Metoprolol Tartrate 5 mg 5 mg Q6HRS@04,10,16,22 IVP Last administered on 04:03; Start 11/27/16 at 22:00 Nicardipine HCl/ Sodium Chloride (Cardene/Iv Sodium Chloride 0.9% 250ml) 270 ml @ 0 mls/hr CONT PRN IV SEE I/O RECORD Last administered on 11/28/16 01:13; Start 11/27/16 at 20:45; Stop 12/05/16 at 09:17; Status DC Vancomycin HCl 1 each 1 each PRN DAILY PRN MC SEE COMMENTS Last administered on 11/27/16 21:38; Start 11/27/16 at 22:00; Stop 11/28/16 at 08:30; Status DC Vancomycin HCl 2 gm/Sodium Chloride 500 ml @ 250 mls/hr 1X ONCE IV Last administered on 11/27/16 22:57; Start 11/27/16 at 22:00; Stop 11/27/16 at 23:59 ; Status DC Vancomycin HCl/ Sodium Chloride (Iv Sodium Chloride 0.9% 500ml Bag) 500 ml @ 250 mls/hr Q24H IV ; Start 11/28/16 at 22:00; Stop 11/28/16 at 22:00; Status DC Vancomycin HCl 1 each 1X ONCE MC ; Start 11/29/16 at 21:30; Stop 11/29/16 at 21 :30; Status DC Insulin Aspart (Novolog) 0-7 UNITS Q6HRS SQ Last administered on 12/12/16 06:39 ; Start 11/28/16 at 01:00 Linezolid 600 mg 600 mg BID PO ; Start 11/28/16 at 09:00; Stop 11/28/16 at 19:45 ; Status DC Pantoprazole Sodium/Sodium Chloride (Protonix Iv/Iv Sodium Chloride 0.9% 100ml) 100 ml @ 10 mls/hr Q10H PRN IV . Last administered on 12/01/16 13:01; Start 11/28/16 at 10:00; Stop 12/01/16 at 15:59; Status DC Ipratropium Drexel (Atrovent) 0.5 mg RTQID NEB Last administered on 12/12/16 08:04; Start 11/28/16 at 12:00 Budesonide (Pulmicort) 0.5 mg RTBID NEB Last administered on 12/06/16 07:36; Start 11/28/16 at 20:00; Stop 12/06/16 at 18:19; Status DC Furosemide 40 mg 40 mg 1X ONCE IVP Last administered on 11/28/16 12:15; Start 11/28/16 at 12:15; Stop 11/28/16 at 12:16; Status DC Potassium Chloride/ Magnesium Sulfate/ Calcium Gluconate/ Multivitamins/ Chromium/Copper/ Manganese/Seleni/ Zn/Total Parenteral Nutrition/Amino Acids/ Dextrose/ Fat Emulsion Intravenous (Calcium Gluconate/ Infuvite Adult/ Multitrace-5 Conc/ Tpn - Tpn Fluid/ Trophami... 1,512 ml @ 63 mls/hr TPN CONT IV Last administered on 11/28/16 21:18; Start 11/28/16 at 22:00; Stop at 21:59; Status DC Lidocaine/Sodium Bicarbonate (Buffered Lidocaine 1%) 3 ml 1X ONCE IJ Last administered on 11/28/16 15:45; Start 11/28/16 at 14:45; Stop 11/28/16 at 14:46 ; Status DC Heparin Sodium/ Sodium Chloride 60 unit 1X ONCE IV Last administered on 15:45; Start 11/28/16 at 14:45; Stop 11/28/16 at 14:46; Status DC Heparin Sodium (Porcine) 2500 unit 2,500 unit 1X ONCE INT CAT Last administered on 11/28/16 15:45; Start 11/28/16 at 14:45; Stop 11/28/16 at 14:46 ; Status DC Linezolid 300 ml @ 300 mls/hr Q12HR IV Last administered on 12/01/16 21:13; Start 11/28/16 at 21:00; Stop 12/02/16 at 08:23; Status DC Potassium Chloride/ Potassium Acetate/ Magnesium Sulfate/ Calcium Gluconate/ Multivitamins/ Chromium/Copper/ Manganese/Seleni/ Zn/Total Parenteral Nutrition/ Amino Acids/Dextrose/ Fat Emulsion Intravenous (Calcium Gluconate/ Infuvite Adult/ Multitrace-5 Conc/ Tpn - Tpn Flu... 1,512 ml @ 63 mls/hr TPN CONT IV Last administered on 11/29/16 21:54; Start 11/29/16 at 22:00; Stop 11/30/16 at 21:59; Status DC Iohexol (Omnipaque 300 Mg/ml) 100 ml STK-MED ONCE .ROUTE ; Start 11/29/16 at 09: 12; Stop 11/29/16 at 09:13; Status DC Lidocaine/Sodium Bicarbonate 20 ml 20 ml STK-MED ONCE IJ ; Start 11/29/16 at 09: 12; Stop 11/29/16 at 09:13; Status DC Heparin Sodium/ Sodium Chloride 500 ml @ As Directed STK-MED ONCE .ROUTE ; Start 11/29/16 at 09:12; Stop 11/29/16 at 09:13; Status DC Lidocaine/Sodium Bicarbonate (Buffered Lidocaine 1%) 2 ml 1X ONCE IJ Last administered on 11/29/16 10:22; Start 11/29/16 at 10:00; Stop 11/29/16 at 10:15 ; Status DC Iohexol (Omnipaque 300 Mg/ml) 30 ml 1X ONCE IART Last administered on 10:22; Start 11/29/16 at 10:00; Stop 11/29/16 at 10:15; Status DC Heparin Sodium/ Sodium Chloride 1,000 unit 1X ONCE IV Last administered on 10:21; Start 11/29/16 at 10:00; Stop 11/29/16 at 10:15; Status DC Info 1 each 1 each PRN DAILY PRN MC SEE COMMENTS; Start 11/29/16 at 10:30; Stop 12/01/16 at 10:29; Status DC Heparin Sodium/ Dextrose 500 ml @ 0 mls/hr CONT PRN IV SEE I/O RECORD; Start at 15:15; Status UNV Heparin Sodium/ Dextrose 500 ml @ 0 mls/hr CONT PRN IV SEE I/O RECORD Last administered on 12/04/16 19:23; Start 11/29/16 at 15:15; Stop 12/05/16 at 08:51 ; Status DC Nitroglycerin/ Dextrose 250 ml @ 0 mls/hr CONT PRN IV SEE I/O RECORD Last administered on 11/30/16 10:53; Start 11/30/16 at 10:45; Stop 12/05/16 at 09:17 ; Status DC Potassium Acetate/ Potassium Phosphate/ Magnesium Sulfate/ Calcium Gluconate/ Multivitamins/ Chromium/Copper/ Manganese/Seleni/ Zn/Insulin Human Regular/ Total Parenteral Nutrition/Amino Acids/Dextrose/ Fat Emulsion Intravenous ( Potassium Phosphate/Calcium Gluconate/ Infuvite Asim... 1,472.1 ml @ 63 mls/hr TPN CONT IV Last administered on 11/30/16 21:31; Start 11/30/16 at 22:00; Stop 12/01/16 at 21:21; Status DC Furosemide 40 mg 40 mg 1X ONCE IVP Last administered on 11/30/16 15:02; Start 11/30/16 at 15:00; Stop 11/30/16 at 15:01; Status DC Iron Sucrose/ Sodium Chloride (Venofer/Iv Sodium Chloride 0.9% 250ml) 275 ml @ 78.571 mls/ hr 1X ONCE IV Last administered on 12/01/16 09:58; Start at 09:00; Stop 12/01/16 at 12:29; Status DC Insulin Detemir (Levemir) 12 units QHS SQ Last administered on 12/03/16 21:28 ; Start 12/01/16 at 21:00; Stop 12/04/16 at 16:49; Status DC Info 1 each 1 each PRN DAILY PRN MC SEE COMMENTS Last administered on 12:18; Start 12/01/16 at 10:45; Stop 12/05/16 at 09:17; Status DC Potassium Acetate/ Potassium Phosphate/ Magnesium Sulfate/ Calcium Gluconate/ Multivitamins/ Chromium/Copper/ Manganese/Seleni/ Zn/Insulin Human Regular/ Total Parenteral Nutrition/Amino Acids/Dextrose/ Fat Emulsion Intravenous ( Potassium Phosphate/Calcium Gluconate/ Infuvite Asim... 1,512 ml @ 64.708 mls/ hr TPN CONT IV Last administered on 12/01/16 22:20; Start 12/01/16 at 22:00; Stop 12/02/16 at 21:21; Status DC Pantoprazole Sodium (Protonix Vial) 40 mg DAILYAC IVP Last administered on 12/04 10:37; Start 12/02/16 at 07:30; Stop 12/05/16 at 06:27; Status DC Acetaminophen 650 mg 650 mg 1X PRN PRN PO PRN prior to blood transfusion; Start 12/02/16 at 06:30; Stop 12/03/16 at 06:29; Status DC Potassium Acetate/ Potassium Phosphate/ Magnesium Sulfate/ Calcium Gluconate/ Multivitamins/ Chromium/Copper/ Manganese/Seleni/ Zn/Insulin Human Regular/ Total Parenteral Nutrition/Amino Acids/Dextrose/ Fat Emulsion Intravenous ( Potassium Phosphate/Calcium Gluconate/ Infuvite Asim... 1,512 ml @ 64.708 mls/ hr TPN CONT IV Last administered on 12/02/16 21:46; Start 12/02/16 at 22:00; Stop 12/03/16 at 21:21; Status DC Furosemide (Lasix) 40 mg DAILY IVP Last administered on 12/03/16 08:47; Start 12/02/16 at 12:30; Stop 12/04/16 at 06:30; Status DC Acetaminophen (Acetaminophen Supp) 650 mg PRN Q6HRS PRN CO MILD PAIN / TEMP; Start 12/02/16 at 13:30; Stop 12/02/16 at 13:36; Status DC Acetaminophen 650 mg 650 mg PRN Q6HRS PRN CO MILD PAIN / TEMP; Start 12/02/16 at 13:45 Potassium Acetate/ Potassium Phosphate/ Magnesium Sulfate/ Calcium Gluconate/ Multivitamins/ Chromium/Copper/ Manganese/Seleni/ Zn/Insulin Human Regular/ Total Parenteral Nutrition/Amino Acids/Dextrose/ Fat Emulsion Intravenous ( Potassium Phosphate/Calcium Gluconate/ Infuvite Asim... 1,512 ml @ 63 mls/hr TPN CONT IV Last administered on 12/03/16 21:05; Start 12/03/16 at 22:00; Stop 12/04/16 at 21:59; Status DC Fentanyl Citrate (Fentanyl 2ml Vial) 25 mcg PRN Q30MIN PRN IV SED; Start at 06:29; Stop 12/05/16 at 09:17; Status DC Ondansetron HCl (Zofran) 4 mg PRN Q6HRS PRN IV NAUSEA/VOMITING; Start 12/04/16 at 06:30 Furosemide (Lasix) 40 mg DAILY IVP Last administered on 12/06/16t 10:20; Start 12/04/16 at 06:30; Stop 12/06/16 at 15:12; Status DC Lidocaine HCl 20 ml 20 ml STK-MED ONCE .ROUTE ; Start 12/04/16 at 07:02; Stop at 07:03; Status DC Heparin Sodium/ Sodium Chloride 1,500 ml @ As Directed STK-MED ONCE .ROUTE ; Start 12/04/16 at 07:02; Stop 12/04/16 at 07:03; Status DC Iodixanol (Visipaque 320) 100 ml STK-MED ONCE .ROUTE ; Start 12/04/16 at 07:02; Stop 12/04/16 at 07:03; Status DC Nitroglycerin (Nitroglycerin) 200 mcg STK-MED ONCE .ROUTE ; Start 12/04/16 at 07 :05; Stop 12/04/16 at 07:06; Status DC Verapamil HCl (Verapamil) 5 mg STK-MED ONCE .ROUTE ; Start 12/04/16 at 07:05; Stop 12/04/16 at 07:06; Status DC Midazolam HCl (Versed) 2 mg STK-MED ONCE .ROUTE ; Start 12/04/16 at 07:05; Stop 12/04/16 at 07:06; Status DC Fentanyl Citrate (Fentanyl 2ml Vial) 100 mcg STK-MED ONCE .ROUTE ; Start at 07:05; Stop 12/04/16 at 07:06; Status DC Heparin Sodium (Porcine) 10,000 unit STK-MED ONCE .ROUTE ; Start 12/04/16 at 07: 05; Stop 12/04/16 at 07:06; Status DC Nitroglycerin (Nitroglycerin) 200 mcg STK-MED ONCE .ROUTE ; Start 12/04/16 at 07 :17; Stop 12/04/16 at 07:18; Status DC Verapamil HCl (Verapamil) 5 mg STK-MED ONCE .ROUTE ; Start 12/04/16 at 07:18; Stop 12/04/16 at 07:19; Status DC Nitroglycerin (Nitroglycerin) 200 mcg 1X ONCE IART Last administered on 07:42; Start 12/04/16 at 07:45; Stop 12/04/16 at 07:46; Status DC Verapamil HCl (Verapamil) 2.5 mg 1X ONCE IART Last administered on 12/04/16 07:43; Start 12/04/16 at 07:45; Stop 12/04/16 at 07:46; Status DC Heparin Sodium/ Sodium Chloride 1,000 unit 1X ONCE IART Last administered on 07:43; Start 12/04/16 at 07:45; Stop 12/04/16 at 07:46; Status DC Midazolam HCl (Versed) 0.5 mg 1X ONCE IV Last administered on 12/04/16 07:44 ; Start 12/04/16 at 07:45; Stop 12/04/16 at 07:46; Status DC Fentanyl Citrate (Fentanyl 2ml Vial) 25 mcg 1X ONCE IV Last administered on 07:44; Start 12/04/16 at 07:45; Stop 12/04/16 at 07:46; Status DC Iodixanol (Visipaque 320) 100 ml 1X ONCE IART Last administered on 12/04/16 07:42; Start 12/04/16 at 07:45; Stop 12/04/16 at 07:46; Status DC Lidocaine HCl 20 ml 1X ONCE IJ Last administered on 12/04/16 07:43; Start at 07:45; Stop 12/04/16 at 07:46; Status DC Info 1 each 1 each PRN DAILY PRN MC SEE COMMENTS; Start 12/04/16 at 07:45; Stop 12/06/16 at 07:44; Status DC Potassium Acetate/ Potassium Phosphate/ Magnesium Sulfate/ Calcium Gluconate/ Multivitamins/ Chromium/Copper/ Manganese/Seleni/ Zn/Insulin Human Regular/ Total Parenteral Nutrition/Amino Acids/Dextrose/ Fat Emulsion Intravenous ( Potassium Phosphate/Calcium Gluconate/ Infuvite Asim... 1,512 ml @ 63 mls/hr TPN CONT IV Last administered on 12/04/16 22:47; Start 12/04/16 at 22:00; Stop 12/05/16 at 21:59; Status DC Lidocaine HCl 20 ml 20 ml STK-MED ONCE .ROUTE ; Start 12/04/16 at 12:59; Stop at 13:00; Status DC Heparin Sodium/ Sodium Chloride 1,000 ml @ As Directed STK-MED ONCE .ROUTE ; Start 12/04/16 at 12:59; Stop 12/05/16 at 08:51; Status DC Iodixanol (Visipaque 320) 100 ml STK-MED ONCE .ROUTE ; Start 12/04/16 at 12:59; Stop 12/04/16 at 13:00; Status DC Insulin Detemir (Levemir) 25 units QHS SQ ; Start 12/04/16 at 21:00; Stop at 21:00; Status DC Insulin Detemir (Levemir) 20 units QHS SQ Last administered on 12/11/16 20:51; Start 12/04/16 at 21:00 Morphine Sulfate 2 mg PRN Q2HR PRN IV PAIN Last administered on 12/12/16 04:03 ; Start 12/04/16 at 19:15 Morphine Sulfate 4 mg PRN Q2HR PRN IV PAIN; Start 12/04/16 at 19:15; Stop 12/05 at 09:17; Status DC Pantoprazole Sodium (Protonix Vial) 40 mg DAILYAC IVP Last administered on 10:30; Start 12/05/16 at 06:27 Verapamil HCl (Verapamil) 5 mg STK-MED ONCE .ROUTE ; Start 12/04/16 at 07:30; Stop 12/05/16 at 08:38; Status DC Enoxaparin Sodium (Lovenox Per Pharmacy Treatment Dosing) 1 each PRN DAILY PRN MC SEE COMMENTS; Start 12/05/16 at 09:00; Stop 12/09/16 at 13:25; Status DC Enoxaparin Sodium (Lovenox 100mg Syringe) 100 mg Q12HR SQ Last administered on 12/10/16 19:53; Start 12/05/16 at 09:00; Stop 12/11/16 at 08:40; Status DC Info 1 each 1 each PRN DAILY PRN MC SEE COMMENTS Last administered on 12/07/16 12:19; Start 12/05/16 at 10:15 Potassium Acetate/ Potassium Phosphate/ Magnesium Sulfate/ Calcium Gluconate/ Multivitamins/ Chromium/Copper/ Manganese/Seleni/ Zn/Insulin Human Regular/ Total Parenteral Nutrition/Amino Acids/Dextrose/ Fat Emulsion Intravenous ( Potassium Phosphate/Calcium Gluconate/ Infuvite Asim... 1,512 ml @ 63 mls/hr TPN CONT IV Last administered on 12/05/16 21:14; Start 12/05/16 at 22:00; Stop 12/06/16 at 21:59; Status DC Barium Sulfate (Varibar Thin Liquid Apple) 148 gm 1X ONCE PO Last administered on 12/05/16 13:56; Start 12/05/16 at 14:00; Stop 12/05/16 at 14:01 ; Status DC Dextrose 12.5 gm 12.5 gm PRN Q15MIN PRN IV SEE COMMENTS; Start 12/05/16 at 14: 19 Potassium Acetate/ Potassium Phosphate/ Magnesium Sulfate/ Calcium Gluconate/ Multivitamins/ Chromium/Copper/ Manganese/Seleni/ Zn/Insulin Human Regular/ Total Parenteral Nutrition/Amino Acids/Dextrose/ Fat Emulsion Intravenous ( Potassium Phosphate/Calcium Gluconate/ Infuvite Asim... 1,512 ml @ 63 mls/hr TPN CONT IV Last administered on 12/06/16 20:49; Start 12/06/16 at 22:00; Stop 12/07/16 at 21:59; Status DC Furosemide 20 mg 20 mg DAILY IVP Last administered on 12/08/16 08:37; Start 12/07/16 at 09:00; Stop 12/08/16 at 09:24; Status DC Potassium Acetate/ Potassium Phosphate/ Magnesium Sulfate/ Calcium Gluconate/ Multivitamins/ Chromium/Copper/ Manganese/Seleni/ Zn/Insulin Human Regular/ Total Parenteral Nutrition/Amino Acids/Dextrose/ Fat Emulsion Intravenous ( Potassium Phosphate/Calcium Gluconate/ Infuvite Asim... 1,512 ml @ 63 mls/hr TPN CONT IV Last administered on 12/07/16 20:23; Start 12/07/16 at 22:00; Stop 12/08/16 at 21:59; Status DC Lorazepam 0.5 mg 0.5 mg PRN Q6HRS PRN IV ANXIETY / AGITATION Last administered on 12/12/16 04:03; Start 12/07/16 at 16:30 Dextrose 1,000 ml @ 100 mls/hr Q10H IV Last administered on 12/08/16 09:59; Start 12/08/16 at 09:30; Stop 12/08/16 at 19:29; Status DC Potassium Acetate/ Potassium Phosphate/ Magnesium Sulfate/ Calcium Gluconate/ Multivitamins/ Chromium/Copper/ Manganese/Seleni/ Zn/Insulin Human Regular/ Total Parenteral Nutrition/Amino Acids/Dextrose/ Fat Emulsion Intravenous ( Potassium Phosphate/Calcium Gluconate/ Infuvite Asim... 2,400 ml @ 100 mls/hr TPN CONT IV Last administered on 12/08/16 21:20; Start 12/08/16 at 22:00; Stop 12/09/16 at 21:59; Status DC Temazepam 15 mg 15 mg PRN QHS PRN PO INSOMNIA; Start 12/09/16 at 11:30 Potassium Acetate/ Potassium Phosphate/ Magnesium Sulfate/ Calcium Gluconate/ Multivitamins/ Chromium/Copper/ Manganese/Seleni/ Zn/Insulin Human Regular/ Total Parenteral Nutrition/Amino Acids/Dextrose/ Fat Emulsion Intravenous ( Potassium Phosphate/Calcium Gluconate/ Infuvite Asim... 2,400 ml @ 100 mls/hr TPN CONT IV Last administered on 12/09/16 21:27; Start 12/09/16 at 22:00; Stop 12/10/16 at 21:59; Status DC Lorazepam 1 mg 1 mg 1X ONCE IV Last administered on 12/09/16 21:29; Start 12/09 at 21:30; Stop 12/09/16 at 21:31; Status DC Potassium Acetate/ Potassium Phosphate/ Magnesium Sulfate/ Calcium Gluconate/ Multivitamins/ Chromium/Copper/ Manganese/Seleni/ Zn/Insulin Human Regular/ Total Parenteral Nutrition/Amino Acids/Dextrose/ Fat Emulsion Intravenous ( Potassium Phosphate/Calcium Gluconate/ Infuvite Asim... 2,400 ml @ 100 mls/hr TPN CONT IV Last administered on 12/10/16 22:08; Start 12/10/16 at 22:00; Stop 12/11/16 at 21:59; Status DC Lidocaine/Sodium Bicarbonate (Buffered Lidocaine 1%) 20 ml STK-MED ONCE IJ ; Start 12/10/16 at 14:30; Stop 12/10/16 at 14:31; Status DC Naloxone HCl (Narcan) 0.4 mg STK-MED ONCE .ROUTE ; Start 12/10/16 at 14:45; Stop 12/10/16 at 14:46; Status DC Flumazenil (Romazicon) 0.5 mg STK-MED ONCE IV ; Start 12/10/16 at 14:45; Stop 12/10/16 at 14:46; Status DC Fentanyl Citrate (Fentanyl 2ml Vial) 100 mcg STK-MED ONCE .ROUTE ; Start at 14:45; Stop 12/10/16 at 14:46; Status DC Midazolam HCl (Versed) 2 mg STK-MED ONCE .ROUTE ; Start 12/10/16 at 14:45; Stop 12/10/16 at 14:46; Status DC Lidocaine/Sodium Bicarbonate (Buffered Lidocaine 1%) 20 ml 1X ONCE IJ Last administered on 12/10/16 15:15; Start 12/10/16 at 15:15; Stop 12/10/16 at 15:16; Status DC Midazolam HCl (Versed) 2 mg 1X ONCE IV Last administered on 12/10/16 15:20; Start 12/10/16 at 15:15; Stop 12/10/16 at 15:16; Status DC Fentanyl Citrate 100 mcg 100 mcg 1X ONCE IV Last administered on 12/10/16 15: 20; Start 12/10/16 at 15:15; Stop 12/10/16 at 15:16; Status DC Potassium Acetate/ Potassium Phosphate/ Magnesium Sulfate/ Calcium Gluconate/ Multivitamins/ Chromium/Copper/ Manganese/Seleni/ Zn/Insulin Human Regular/ Total Parenteral Nutrition/Amino Acids/Dextrose/ Fat Emulsion Intravenous ( Potassium Phosphate/Calcium Gluconate/ Infuvite Asim... 2,400 ml @ 100 mls/hr TPN CONT IV Last administered on 12/11/16 23:37; Start 12/11/16 at 22:00; Stop 12/12/16 at 21:59 Ondansetron HCl (Zofran) 4 mg PRN Q6HRS PRN IV NAUSEA/VOMITING; Start 12/12/16 at 07:00; Stop 12/12/16 at 07:00; Status DC Fentanyl Citrate (Fentanyl 2ml Vial) 25 mcg PRN Q5MIN PRN IV MILD PAIN; Start 12/12/16 at 07:00; Stop 12/12/16 at 07:00; Status DC Fentanyl Citrate (Fentanyl 2ml Vial) 50 mcg PRN Q5MIN PRN IV MODERATE PAIN; Start 12/12/16 at 07:00; Stop 12/12/16 at 07:00; Status DC Morphine Sulfate 1 mg 1 mg PRN Q10MIN PRN IV SEVERE PAIN; Start 12/12/16 at 07: 00; Stop 12/12/16 at 07:00; Status DC Lactated Ringer's (Iv Lactated Ringers) 1,000 ml @ 30 mls/hr Q24H IV ; Start at 07:00; Stop 12/12/16 at 07:00; Status DC Lidocaine HCl 2 ml PRN 1X PRN ID PRIOR TO IV START; Start 12/12/16 at 07:00; Stop 12/12/16 at 07:00; Status DC Hydromorphone HCl (Dilaudid) 0.5 mg PRN Q10MIN PRN IV SEV PAIN, Second choice; Start 12/12/16 at 07:00; Stop 12/12/16 at 07:00; Status DC Prochlorperazine Edisylate (Compazine) 5 mg PACU PRN PRN IV NAUSEA, MRX1; Start 12/12/16 at 07:00; Stop 12/12/16 at 07:00; Status DC Vitals/I & O Vital Sign - Last 24 Hours 12/11/16 12/11/16 12/11/16 12/11/16 10:46 11:12 12:35 13:05 Temp 97.5 97.5 Pulse 82 Resp 20 16 16 B/P 115/61 Pulse Ox 95 95 95 O2 Delivery Nasal Cannula Nasal Cannula Nasal Cannula O2 Flow Rate 1.0 1.0 1.0 1.0 12/11/16 12/11/16 12/11/16 12/11/16 14:43 14:58 16:21 18:26 Temp 98.0 98.0 Pulse 95 95 Resp 20 16 B/P 140/77 140/77 Pulse Ox 93 95 O2 Delivery Nasal Cannula Nasal Cannula Nasal Cannula O2 Flow Rate 1.0 1.0 1.0 4/612/11/16 12/11/16 12/11/16 19:20 19:38 20:15 20:46 Temp 97.2 97.2 Pulse 97 95 Resp 18 B/P 131/72 140/77 Pulse Ox 96 96 O2 Delivery Room Air Nasal Cannula Nasal Cannula O2 Flow Rate 1.0 1.0 12/11/16 12/11/16 12/11/16 12/12/16 21:09 21:39 23:25 03:25 Temp 97.9 97.9 97.9 97.9 Pulse 91 92 Resp 20 20 B/P 127/69 120/68 Pulse Ox 96 97 O2 Delivery Nasal Cannula Nasal Cannula Nasal Cannula Nasal Cannula O2 Flow Rate 1.0 1.0 12/12/16 12/12/16 12/12/16 12/12/16 04:03 07:00 08:05 08:27 Temp 97.4 97.4 Pulse 92 94 Resp 20 B/P 120/68 139/78 Pulse Ox 94 94 O2 Delivery Nasal Cannula Nasal Cannula Nasal Cannula O2 Flow Rate 1.0 1.0 1.0 Intake and Output 12/11/16 12/11/16 12/12/16 15:00 23:00 07:00 Intake Total 756.48 ml Output Total 850 ml 475 ml Balance -93.52 ml -475 ml EVELYNE ANTONIO MD Dec 12, 2016 10:45
[2016-12-12] MEDS: PANTOPRAZOLE IV PUSH 40 MG VIAL. IVP SCH (11:23)
[2016-12-12 11:29] VITALS: BP 136/75
[2016-12-12] MEDS: TPN PER PHARMACY MC PRN ×3 (11:35→15:43)
--- NOTE | 2016-12-12 13:32 | PDOC ---
SUBJECTIVE ROS CKD III Feeling wore out after ambulating in hallways CVS: no Orthopnea, no anginal CP - min from CT RESP: no SOB, no ZARATE GI: no Nausea, no Vomiting : no Dysuria, no Urgency OBJECTIVE Vital Signs Vital Signs Date Time Temp Pulse Resp B/P Pulse Ox O2 Delivery O2 Flow Rate FiO2 12/12/16 13:22 94 Nasal Cannula 1.0 12/12/16 11:29 97.8 104 21 136/75 97.8 I & 0 Intake and Output 12/12/16 07:00 Intake Total 756.48 ml Output Total 1325 ml Balance -568.52 ml IV Total 756.48 ml Output Urine Total 1050 ml Chest Tube Drainage Total 250 ml Other 25 ml PHYSICAL EXAM Physical Exam General Appearance: AAO x 3 In no Distress; lying almost flat in bed Eyes: VIsion Unchanged Conjunctiva Normal EN: No EN Drainage Mucous Memb. moist Neck: no JVD no JVP Supple no Thyromegaly CVS: S1 S2 no audible Murmur No Gallop No Rub Tr Edema Resp: rare basal Rales no Rhonchi no Acc. Muscle use GI: BS +ve NO Bruit Non Tender Non Distended : no CVA tenderness; no Suprapubic Tenderness Assessment & Plan [place]: Creat stable ? CKD - Will await a new baseline, Is this his new baseline? Pl Eff - s/p CT placement - doubt related to fl overload. Nutrition - TPN ongoing for now until he can pass swallow eval anemia - defer to Dr White et al Urinary retention - URO reconsulted, Hematuria appears to have cleared up some COMMENT/RELEVANT DATA Meds Current Medications Medications (Trade) Dose Ordered Sig/Kika Start Time Stop Time Status Last Admin Dose Admin Acetaminophen (Acetaminophen Supp) 650 mg PRN Q6HRS PRN 12/02/16 13:45 Acetaminophen (Tylenol) 650 mg 1X PRN PRN 12/02/16 06:30 12/03/16 06:29 DC Acetaminophen 650 mg 650 mg PRN Q6HRS PRN 11/25/16 23:30 12/02/16 13:29 DC 11/28/16 04:19 650 MG Albumin Human (Albuminar) 100 ml @ 100 mls/hr TID 11/27/16 12:00 11/29/16 09:59 DC 11/29/16 08:56 100 MLS/HR Albuterol Sulfate 2.5 mg 2.5 mg 1X ONCE 11/27/16 06:45 11/27/16 06:46 DC 11/27/16 07:21 2.5 MG Amiodarone HCl (Cordarone) 450 mg STK-MED ONCE 11/25/16 12:00 11/25/16 14:56 DC Aspirin (Aspirin) 300 mg DAILY 11/24/16 09:00 12/12/16 09:00 300 MG Atropine Sulfate 1.5 mg STK-MED ONCE 11/25/16 12:00 11/25/16 14:56 DC Barium Sulfate (Varibar Thin Liquid Apple) 148 gm 1X ONCE 12/05/16 14:00 12/05/16 14:01 DC 12/05/16 13:56 148 GM Budesonide 0.5 mg 0.5 mg RTBID 11/28/16 20:00 12/06/16 18:19 DC 12/06/16 07:36 0.5 MG Calcium Chloride/ Sodium Chloride (Iv Sodium Chloride 0.9% 100ml) 120 ml @ 240 mls/hr 1X ONCE 11/26/16 13:15 11/26/16 13:44 DC 11/26/16 13:22 240 MLS/HR Chlorhexidine Gluconate 15 ml 15 ml BID 11/25/16 21:00 11/26/16 17:49 DC 11/26/16 08:37 15 ML Dextrose 1,000 ml @ 100 mls/hr Q10H 12/08/16 09:30 12/08/16 19:29 DC 12/08/16 09:59 100 MLS/HR Dextrose (Dextrose 50%-Water Syringe) 12.5 gm PRN Q15MIN PRN 12/05/16 14:19 Enoxaparin Sodium (Lovenox 100mg Syringe) 100 mg Q12HR 12/05/16 09:00 12/11/16 08:40 DC 12/10/16 19:53 100 MG Enoxaparin Sodium (Lovenox Per Pharmacy Prophylaxis Dosing) 1 each PRN DAILY PRN 11/25/16 08:45 UNV Enoxaparin Sodium (Lovenox Per Pharmacy Treatment Dosing) 1 each PRN DAILY PRN 12/05/16 09:00 12/09/16 13:25 DC Epinephrine HCl 4 mg STK-MED ONCE 11/25/16 12:00 11/25/16 14:56 DC Epinephrine HCl (Adrenalin) 30 mg STK-MED ONCE 11/25/16 12:00 11/25/16 14:56 DC Epinephrine HCl/ Sodium Chloride (Adrenalin/Iv Sodium Chloride 0.9% 250ml) 254 ml @ 0 mls/hr CONT PRN 11/24/16 07:30 11/27/16 08:25 DC 11/26/16 03:05 11.43 MLS/HR Famotidine (Pepcid) 20 mg QHS 11/24/16 21:00 11/28/16 09:46 DC 11/27/16 21:12 20 MG Fentanyl Citrate (Fentanyl 2ml Vial) 50 mcg PRN Q5MIN PRN 12/12/16 07:00 12/12/16 07:00 DC Flumazenil (Romazicon) 0.5 mg STK-MED ONCE 12/10/16 14:45 12/10/16 14:46 DC Furosemide (Lasix) 20 mg DAILY 12/07/16 09:00 12/08/16 09:24 DC 12/08/16 08:37 20 MG Furosemide 40 mg 40 mg 1X ONCE 11/30/16 15:00 11/30/16 15:01 DC 11/30/16 15:02 40 MG Heparin Sodium (Porcine) 10,000 unit STK-MED ONCE 12/04/16 07:05 12/04/16 07:06 DC Heparin Sodium (Porcine) 1500 unit 1,500 unit PRN Q6HRS PRN 11/24/16 16:45 11/28/16 17:12 DC 11/26/16 12:08 1,500 UNIT Heparin Sodium (Porcine) 2500 unit 2,500 unit 1X ONCE 11/28/16 14:45 11/28/16 14:46 DC 11/28/16 15:45 2,500 UNIT Heparin Sodium/ Dextrose 500 ml @ 0 mls/hr CONT PRN 11/29/16 15:15 12/05/16 08:51 DC 12/04/16 19:23 0 MLS/HR Heparin Sodium/ Sodium Chloride 1,000 ml @ As Directed STK-MED ONCE 12/04/16 12:59 12/05/16 08:51 DC Hydralazine HCl (Apresoline) 10 mg PRN Q4HRS PRN 11/27/16 12:45 12/03/16 20:18 10 MG Hydromorphone HCl (Dilaudid) 0.5 mg PRN Q10MIN PRN 12/12/16 07:00 12/12/16 07:00 DC Info (Anti-Coagulation Monitoring By Pharmacy) 1 each PRN DAILY PRN 12/05/16 10:15 12/07/16 12:19 1 EACH Info (Do NOT chart on this entry -- for MONITORING) 1 each PRN DAILY PRN 12/04/16 07:45 12/06/16 07:44 DC Info 1 ea 1 ea DAILY PRN 11/26/16 08:45 12/05/16 09:17 DC Info 1 each 1 each PRN DAILY PRN 11/29/16 10:30 12/01/16 10:29 DC Insulin Aspart (Novolog) 0-7 UNITS Q6HRS 11/28/16 01:00 12/12/16 13:20 2 UNITS Insulin Detemir (Levemir) 20 units QHS 12/04/16 21:00 12/11/16 20:51 20 UNITS Insulin Human Regular 150 unit/ Sodium Chloride 151.5 ml @ 9.16 mls/hr CONT PRN 11/24/16 09:30 11/27/16 08:25 DC 11/24/16 10:13 3.4 MLS/HR Iodixanol (Visipaque 320) 100 ml STK-MED ONCE 12/04/16 12:59 12/04/16 13:00 DC Iohexol (Omnipaque 300 Mg/ml) 30 ml 1X ONCE 11/29/16 10:00 11/29/16 10:15 DC 11/29/16 10:22 30 ML Ipratropium Dukedom (Atrovent) 0.5 mg RTQID 11/28/16 12:00 12/12/16 13:21 0.5 MG Iron Sucrose/ Sodium Chloride (Venofer/Iv Sodium Chloride 0.9% 250ml) 275 ml @ 78.571 mls/ hr 1X ONCE 12/01/16 09:00 12/01/16 12:29 DC 12/01/16 09:58 78.571 MLS/HR Lactated Ringer's (Iv Lactated Ringers) 1,000 ml @ 30 mls/hr Q24H 12/12/16 07:00 12/12/16 07:00 DC Lidocaine HCl 2 ml PRN 1X PRN 12/12/16 07:00 12/12/16 07:00 DC Lidocaine HCl 20 ml 20 ml STK-MED ONCE 12/04/16 12:59 12/04/16 13:00 DC Lidocaine/Sodium Bicarbonate (Buffered Lidocaine 1%) 20 ml 1X ONCE 12/10/16 15:15 12/10/16 15:16 DC 12/10/16 15:15 3 ML Linezolid 300 ml @ 300 mls/hr Q12HR 11/28/16 21:00 12/02/16 08:23 DC 12/01/16 21:13 300 MLS/HR Linezolid 600 mg 600 mg BID 11/28/16 09:00 11/28/16 19:45 DC Lorazepam (Ativan) 1 mg 1X ONCE 12/09/16 21:30 12/09/16 21:31 DC 12/09/16 21:29 1 MG Lorazepam 0.5 mg 0.5 mg PRN Q6HRS PRN 12/07/16 16:30 12/12/16 04:03 0.5 MG Lorazepam 1 mg 1 mg PRN Q30MIN PRN 11/24/16 08:45 11/28/16 19:45 DC 11/25/16 12:26 1 MG Magnesium Sulfate/ Dextrose 50 ml @ 25 mls/hr PRN DAILY PRN 11/27/16 08:45 Magnesium Sulfate/ Dextrose (Magnesium Sulfate PREMIX 2GM) 50 ml @ 25 mls/hr 1X ONCE 11/25/16 12:30 11/25/16 14:29 DC 11/25/16 13:28 25 MLS/HR Meperidine HCl (Demerol) 12.5 mg PRN Q30MIN PRN 11/24/16 08:45 11/24/16 22:21 DC 11/24/16 22:21 12.5 MG Metoprolol Tartrate (Lopressor) 5 mg Q6HRS 11/27/16 15:30 11/27/16 19:11 DC 11/27/16 15:40 5 MG Metoprolol Tartrate 5 mg 5 mg Q6HRS@04,10,16,22 11/27/16 22:00 12/12/16 11:23 5 MG Midazolam HCl (Versed 100mg/ 100ml Premix) 100 ml @ 0 mls/hr CONT PRN 11/25/16 23:30 11/26/16 17:49 DC Midazolam HCl (Versed) 2 mg 1X ONCE 12/10/16 15:15 12/10/16 15:16 DC 12/10/16 15:20 1 MG Morphine Sulfate 1 mg 1 mg PRN Q10MIN PRN 12/12/16 07:00 12/12/16 07:00 DC Multi-Ingred Cream/Lotion/Oil/ Oint (Artificial Tears Eye Oint) 1 radha PRN Q6HRS PRN 11/24/16 08:45 Naloxone HCl (Narcan) 0.4 mg STK-MED ONCE 12/10/16 14:45 12/10/16 14:46 DC Nicardipine HCl/ Sodium Chloride (Cardene/Iv Sodium Chloride 0.9% 250ml) 270 ml @ 0 mls/hr CONT PRN 11/27/16 20:45 12/05/16 09:17 DC 11/28/16 01:13 81 MLS/HR Nitroglycerin (Nitroglycerin) 200 mcg 1X ONCE 12/04/16 07:45 12/04/16 07:46 DC 12/04/16 07:42 200 MCG Nitroglycerin 0.4 mg 0.4 mg STK-MED ONCE 11/27/16 11:16 11/27/16 11:17 DC 11/27/16 11:26 0.4 MG Nitroglycerin/ Dextrose (Nitroglycerin Drip) 250 ml @ 0 mls/hr CONT PRN 11/30/16 10:45 12/05/16 09:17 DC 11/30/16 10:53 7.5 MLS/HR Ondansetron HCl (Zofran) 4 mg PRN Q6HRS PRN 12/12/16 07:00 12/12/16 07:00 DC Ondansetron HCl 4 mg 4 mg PRN Q6HRS PRN 11/26/16 13:45 12/04/16 06:30 DC 12/03/16 21:17 4 MG Pantoprazole Sodium (Protonix Vial) 40 mg DAILYAC 12/05/16 06:27 12/12/16 11:23 40 MG Pantoprazole Sodium/Sodium Chloride (Protonix Iv/Iv Sodium Chloride 0.9% 100ml) 100 ml @ 10 mls/hr Q10H PRN 11/28/16 10:00 12/01/16 15:59 DC 12/01/16 13:01 10 MLS/HR Piperacillin Sod/ Tazobactam Sod 3.375 gm/Sodium Chloride 50 ml @ 100 mls/hr Q6HRS 11/25/16 00:00 12/07/16 12:10 DC 12/07/16 05:21 100 MLS/HR Piperacillin Sod/ Tazobactam Sod 1 each 1 each PRN DAILY PRN 11/24/16 08:15 11/24/16 13:06 DC Piperacillin Sod/ Tazobactam Sod/ Sodium Chloride (Zosyn/Iv Sodium Chloride 0.9% 100ml) 100 ml @ 200 mls/hr Q6HRS 11/24/16 08:30 11/24/16 11:15 DC 11/24/16 10:10 200 MLS/HR Potassium Chloride/ Magnesium Sulfate/ Calcium Gluconate/ Multivitamins/ Chromium/Copper/ Manganese/Seleni/ Zn/Total Parenteral Nutrition/Amino Acids/Dextrose/ Fat Emulsion Intravenous (Calcium Gluconate/ Infuvite Adult/ Multitrace-5 Conc/ Tpn - Tpn Fluid/ Trophami... 1,512 ml @ 63 mls/hr TPN CONT 11/28/16 22:00 11/29/16 21:59 DC 11/28/16 21:18 63 MLS/HR Potassium Chloride/ Magnesium Sulfate/ Calcium Gluconate/ Multivitamins/ Chromium/Copper/ Manganese/Seleni/ Zn/Total Parenteral Nutrition/Amino Acids/Dextrose/ Fat Emulsion Intravenous (Infuvite Adult/ Multitrace-5 Conc/ Tpn - Tpn Fluid/ Trophamine/ Dextrose 70%-Water Iv So... 1,512 ml @ 63 mls/hr TPN CONT 11/27/16 22:00 11/28/16 21:59 DC 11/27/16 21:22 63 MLS/HR Potassium Chloride/ Potassium Acetate/ Magnesium Sulfate/ Calcium Gluconate/ Multivitamins/ Chromium/Copper/ Manganese/Seleni/ Zn/Total Parenteral Nutrition/Amino Acids/Dextrose/ Fat Emulsion Intravenous (Calcium Gluconate/ Infuvite Adult/ Multitrace-5 Conc/ Tpn - Tpn Flu... 1,512 ml @ 63 mls/hr TPN CONT 11/29/16 22:00 11/30/16 21:59 DC 11/29/16 21:54 63 MLS/HR Potassium Acetate/ Potassium Phosphate/ Magnesium Sulfate/ Calcium Gluconate/ Multivitamins/ Chromium/Copper/ Manganese/Seleni/ Zn/Insulin Human Regular/Total Parenteral Nutrition/Amino Acids/Dextrose/ Fat Emulsion Intravenous (Potassium Phosphate/Calcium Gluconate/ Infuvite Asim... 1,920 ml @ 80 mls/hr TPN CONT 12/12/16 22:00 12/13/16 21:59 Potassium Chloride 50 ml @ 50 mls/hr Q1H 11/26/16 10:30 11/26/16 12:29 DC 11/26/16 11:23 50 MLS/HR Prochlorperazine Edisylate 5 mg 5 mg PACU PRN PRN 12/12/16 07:00 12/12/16 07:00 DC Propofol (Diprivan) 100 ml @ 0 mls/hr CONT PRN 11/24/16 08:45 11/26/16 17:49 DC 11/26/16 07:38 5.5 MLS/HR Sodium Bicarbonate 100 meq/Sterile Water 1,100 ml @ 100 mls/hr Q11H 11/26/16 13:00 11/27/16 11:25 DC 11/27/16 00:56 100 MLS/HR Sodium Bicarbonate 150 meq 150 meq STK-MED ONCE 11/25/16 12:00 11/25/16 14:56 DC Sodium Bicarbonate 50 meq/Sodium Chloride 1,050 ml @ 125 mls/hr Q8H24M 11/24/16 08:30 11/26/16 12:41 DC 11/26/16 11:24 125 MLS/HR Sodium Bicarbonate 50 meq 1X ONCE 11/27/16 12:45 11/27/16 12:46 DC 11/27/16 13:24 50 MEQ Sodium Chloride (Iv Sodium Chloride 0.9% 1000ml Bag) 1,000 ml @ 1,000 mls/hr 1X ONCE 11/24/16 11:00 11/24/16 11:59 DC 11/24/16 11:00 1,000 MLS/HR Sodium Chloride (Normal Saline Flush) 3 ml QSHIFT PRN 11/24/16 08:45 Sodium Chloride 90 meq/Potassium Chloride 50 meq/ Magnesium Sulfate 10 meq/Calcium Gluconate 10 meq/ Multivitamins 10 ml/Chromium/ Copper/Manganese/ Seleni/Zn 1 ml/ Total Parenteral Nutrition/Amino Acids/Dextrose/ Fat Emulsion Intravenous 1,594.468 ml @ 66.436 m... TPN CONT 11/27/16 22:00 11/28/16 21:59 Cancel Sodium Chloride/ Potassium Chloride/ Magnesium Sulfate/ Calcium Gluconate/ Multivitamins/ Chromium/Copper/ Manganese/Seleni/ Zn/Total Parenteral Nutrition/Amino Acids/Dextrose/ Fat Emulsion Intravenous (Sodium Chloride/ Infuvite Adult/ Multitrace-5 Conc/ Tpn - Tpn Fluid/ Trophami... 1,594.468 ml @ 66.436 m... TPN CONT 11/26/16 22:00 11/27/16 21:59 DC 11/26/16 21:27 66.436 MLS/HR Temazepam (Restoril) 15 mg PRN QHS PRN 12/09/16 11:30 Vancomycin HCl 1 each 1X ONCE 11/29/16 21:30 11/29/16 21:30 DC Vancomycin HCl (Vanco Per Pharmacy) 1 each PRN DAILY PRN 11/25/16 01:00 11/25/16 08:57 DC 11/25/16 03:30 1 EACH Vancomycin HCl 1.5 gm/Sodium Chloride 500 ml @ 250 mls/hr Q24H 11/25/16 10:00 11/25/16 10:00 DC Vancomycin HCl 1 each 1 each PRN DAILY PRN 11/27/16 22:00 11/28/16 08:30 DC 11/27/16 21:38 1 EACH Vancomycin HCl 2 gm/Sodium Chloride 500 ml @ 250 mls/hr 1X ONCE 11/27/16 22:00 11/27/16 23:59 DC 11/27/16 22:57 250 MLS/HR Vancomycin HCl/ Sodium Chloride (Iv Sodium Chloride 0.9% 250ml) 250 ml @ 250 mls/hr 1X ONCE 11/24/16 21:30 11/24/16 22:29 UNV Vancomycin HCl/ Sodium Chloride (Iv Sodium Chloride 0.9% 500ml Bag) 500 ml @ 250 mls/hr Q24H 11/28/16 22:00 11/28/16 22:00 DC Vecuronium Dukedom (Norcuron Bolus) 9 mg PRN Q30MIN PRN 11/24/16 08:45 11/26/16 17:49 DC 11/24/16 17:38 9 MG Verapamil HCl (Verapamil) 5 mg STK-MED ONCE 12/04/16 07:30 12/05/16 08:38 DC Lab Laboratory Tests Test 12/11/16 18:22 12/11/16 23:40 12/11/16 23:58 12/12/16 06:19 Glucose (Fingerstick) 192mg/dL (70-99) 202mg/dL (70-99) 211mg/dL (70-99) 207mg/dL (70-99) Test 12/12/16 06:20 12/12/16 12:01 White Blood Count 9.5x10^3/uL (4.0-11.0) Red Blood Count 2.87x10^6/uL (4.30-5.70) Hemoglobin 8.7g/dL (13.0-17.5) Hematocrit 26.4% (39.0-53.0) Mean Corpuscular Volume 92fL (79-100) Mean Corpuscular Hemoglobin 30pg (25-35) Mean Corpuscular Hemoglobin Concent 33g/dL (31-37) Red Cell Distribution Width 16.5% (11.5-14.5) Platelet Count 354x10^3/uL (140-400) Neutrophils (%) (Auto) 65% (31-73) Lymphocytes (%) (Auto) 12% (24-48) Monocytes (%) (Auto) 13% (0-9) Eosinophils (%) (Auto) 9% (0-3) Basophils (%) (Auto) 1% (0-3) Neutrophils # (Auto) 6.2x10^3uL (1.8-7.7) Lymphocytes # (Auto) 1.2x10^3/uL (1.0-4.8) Monocytes # (Auto) 1.2x10^3/uL (0.0-1.1) Eosinophils # (Auto) 0.9x10^3/uL (0.0-0.7) Basophils # (Auto) 0.1x10^3/uL (0.0-0.2) Sodium Level 137mmol/L (136-145) Potassium Level 4.9mmol/L (3.5-5.1) Chloride Level 105mmol/L (98-107) Carbon Dioxide Level 24mmol/L (21-32) Anion Gap 8 (6-14) Blood Urea Nitrogen 61mg/dL (8-26) Creatinine 1.7mg/dL (0.7-1.3) Estimated GFR (Cockcroft-Gault) 39.9 Glucose Level 225mg/dL (70-99) Calcium Level 9.0mg/dL (8.5-10.1) Glucose (Fingerstick) 203mg/dL (70-99) ASHLEY DIAMOND MD Dec 12, 2016 13:32
--- NOTE | 2016-12-12 14:24 | PDOC ---
PULMONARY PROGRESS NOTES Subjective no soa chest tube output 300 cc /24 hr Vitals Vital Signs Date Time Temp Pulse Resp B/P Pulse Ox O2 Delivery O2 Flow Rate FiO2 12/12/16 13:22 94 Nasal Cannula 1.0 12/12/16 11:29 97.8 104 21 136/75 97.8 Comments ros as mentioned as above. discussed w rn, other sys otherwise neg ROS: No Nausea, No Abdominal Pain General: Alert, No acute distress HEENT: Other (nc at, perrl, nose clear, shallow oropharynx. neck, + jvd, no thyromegaly, no lap) Lungs: Other (decrease bs) Cardiovascular: S1, S2 Abdomen: Soft, Non-tender, Other (no mass) Neuro Exam: Alert Extremities: Other (2=edema) Skin: Warm Labs Laboratory Tests Test 12/10/16 15:00 12/10/16 15:15 12/10/16 17:41 12/11/16 01:40 Special Test - Miscellaneous See separate report Body Fluid Glucose 177mg/dL (.) Body Fluid Total Protein 4.4g/dL (.) Body Fluid Lactate Dehydrogenase 470IU/L (.) Glucose (Fingerstick) 194mg/dL (70-99) 151mg/dL (70-99) Test 12/11/16 05:43 12/11/16 06:10 12/11/16 12:18 12/11/16 18:22 Glucose (Fingerstick) 106mg/dL (70-99) 164mg/dL (70-99) 192mg/dL (70-99) White Blood Count 11.3x10^3/uL (4.0-11.0) Red Blood Count 3.13x10^6/uL (4.30-5.70) Hemoglobin 9.4g/dL (13.0-17.5) Hematocrit 28.3% (39.0-53.0) Mean Corpuscular Volume 91fL (79-100) Mean Corpuscular Hemoglobin 30pg (25-35) Mean Corpuscular Hemoglobin Concent 33g/dL (31-37) Red Cell Distribution Width 16.5% (11.5-14.5) Platelet Count 419x10^3/uL (140-400) Neutrophils (%) (Auto) 65% (31-73) Lymphocytes (%) (Auto) 14% (24-48) Monocytes (%) (Auto) 14% (0-9) Eosinophils (%) (Auto) 7% (0-3) Basophils (%) (Auto) 1% (0-3) Neutrophils # (Auto) 7.3x10^3uL (1.8-7.7) Lymphocytes # (Auto) 1.6x10^3/uL (1.0-4.8) Monocytes # (Auto) 1.6x10^3/uL (0.0-1.1) Eosinophils # (Auto) 0.7x10^3/uL (0.0-0.7) Basophils # (Auto) 0.1x10^3/uL (0.0-0.2) Prothrombin Time 13.2SEC (11.7-14.0) Prothromb Time International Ratio 1.1 (0.8-1.1) Sodium Level 142mmol/L (136-145) Potassium Level 4.9mmol/L (3.5-5.1) Chloride Level 107mmol/L (98-107) Carbon Dioxide Level 24mmol/L (21-32) Anion Gap 11 (6-14) Blood Urea Nitrogen 52mg/dL (8-26) Creatinine 1.6mg/dL (0.7-1.3) Estimated GFR (Cockcroft-Gault) 42.8 BUN/Creatinine Ratio 31 (6-20) Glucose Level 110mg/dL (70-99) Calcium Level 9.4mg/dL (8.5-10.1) Total Bilirubin 1.3mg/dL (0.2-1.0) Aspartate Amino Transf (AST/SGOT) 31U/L (15-37) Alanine Aminotransferase (ALT/SGPT) 60U/L (16-63) Alkaline Phosphatase 249U/L (46-116) Total Protein 6.9g/dL (6.4-8.2) Albumin 3.0g/dL (3.4-5.0) Albumin/Globulin Ratio 0.8 (1.0-1.7) Test 12/11/16 23:40 12/11/16 23:58 12/12/16 06:19 12/12/16 06:20 Glucose (Fingerstick) 202mg/dL (70-99) 211mg/dL (70-99) 207mg/dL (70-99) White Blood Count 9.5x10^3/uL (4.0-11.0) Red Blood Count 2.87x10^6/uL (4.30-5.70) Hemoglobin 8.7g/dL (13.0-17.5) Hematocrit 26.4% (39.0-53.0) Mean Corpuscular Volume 92fL (79-100) Mean Corpuscular Hemoglobin 30pg (25-35) Mean Corpuscular Hemoglobin Concent 33g/dL (31-37) Red Cell Distribution Width 16.5% (11.5-14.5) Platelet Count 354x10^3/uL (140-400) Neutrophils (%) (Auto) 65% (31-73) Lymphocytes (%) (Auto) 12% (24-48) Monocytes (%) (Auto) 13% (0-9) Eosinophils (%) (Auto) 9% (0-3) Basophils (%) (Auto) 1% (0-3) Neutrophils # (Auto) 6.2x10^3uL (1.8-7.7) Lymphocytes # (Auto) 1.2x10^3/uL (1.0-4.8) Monocytes # (Auto) 1.2x10^3/uL (0.0-1.1) Eosinophils # (Auto) 0.9x10^3/uL (0.0-0.7) Basophils # (Auto) 0.1x10^3/uL (0.0-0.2) Sodium Level 137mmol/L (136-145) Potassium Level 4.9mmol/L (3.5-5.1) Chloride Level 105mmol/L (98-107) Carbon Dioxide Level 24mmol/L (21-32) Anion Gap 8 (6-14) Blood Urea Nitrogen 61mg/dL (8-26) Creatinine 1.7mg/dL (0.7-1.3) Estimated GFR (Cockcroft-Gault) 39.9 Glucose Level 225mg/dL (70-99) Calcium Level 9.0mg/dL (8.5-10.1) Test 12/12/16 12:01 Glucose (Fingerstick) 203mg/dL (70-99) Laboratory Tests Test 12/11/16 18:22 12/11/16 23:40 12/11/16 23:58 12/12/16 06:19 Glucose (Fingerstick) 192mg/dL (70-99) 202mg/dL (70-99) 211mg/dL (70-99) 207mg/dL (70-99) Test 12/12/16 06:20 12/12/16 12:01 White Blood Count 9.5x10^3/uL (4.0-11.0) Red Blood Count 2.87x10^6/uL (4.30-5.70) Hemoglobin 8.7g/dL (13.0-17.5) Hematocrit 26.4% (39.0-53.0) Mean Corpuscular Volume 92fL (79-100) Mean Corpuscular Hemoglobin 30pg (25-35) Mean Corpuscular Hemoglobin Concent 33g/dL (31-37) Red Cell Distribution Width 16.5% (11.5-14.5) Platelet Count 354x10^3/uL (140-400) Neutrophils (%) (Auto) 65% (31-73) Lymphocytes (%) (Auto) 12% (24-48) Monocytes (%) (Auto) 13% (0-9) Eosinophils (%) (Auto) 9% (0-3) Basophils (%) (Auto) 1% (0-3) Neutrophils # (Auto) 6.2x10^3uL (1.8-7.7) Lymphocytes # (Auto) 1.2x10^3/uL (1.0-4.8) Monocytes # (Auto) 1.2x10^3/uL (0.0-1.1) Eosinophils # (Auto) 0.9x10^3/uL (0.0-0.7) Basophils # (Auto) 0.1x10^3/uL (0.0-0.2) Sodium Level 137mmol/L (136-145) Potassium Level 4.9mmol/L (3.5-5.1) Chloride Level 105mmol/L (98-107) Carbon Dioxide Level 24mmol/L (21-32) Anion Gap 8 (6-14) Blood Urea Nitrogen 61mg/dL (8-26) Creatinine 1.7mg/dL (0.7-1.3) Estimated GFR (Cockcroft-Gault) 39.9 Glucose Level 225mg/dL (70-99) Calcium Level 9.0mg/dL (8.5-10.1) Glucose (Fingerstick) 203mg/dL (70-99) Comments cxr reviewed, 4/7 resolved right effusion Impression . 1. Acute respiratory failure secondary to [id number] cardiopulmonary arrest. 2. Hyperlipidemia. 3. Diabetes. 4. Positive venous Doppler/ high prob V/Q, popliteal nonocclusive thrombus. 5. Metabolic acidosis sec to code, improved. 6. PE, Bilateral DVT/ PE- S/p IVC. 7. Ischemia CM 35-40%, cath no significant lesion 8. Acute kidney injury 9. anemia, 10. wheezing, acute bronchospasm, resolved 11. right effusion, bloody,doubt hemothorax, improved post thoracentesis, suspect related to pulmonary infarct Plan . s/p right thoracentesis/ chest tube to suction.(exudate, gram stain neg) 300 cc /24 hr output. will remove chest tube once output <200 cc in 24 hr. monitor output and cxr In the setting of ongoing anemia and recent hemorrhagic effusion , I would recommend no further lovenox. Pt has IVC filter cath report noted up to chair resp status is compensated follow results of pleural fluid cytology d/w ZULEYMA ERVIN MD Dec 12, 2016 14:24
[2016-12-12 14:55] VITALS: BP 133/70
--- NOTE | 2016-12-12 17:22 | PATHOLOGY ---
CYTOPATHOLOGY REPORT CLINICAL HISTORY: Right pleural effusion. SPECIMEN(S) RECEIVED: A.Pleural fluid, Right FINAL DIAGNOSIS: Right pleural fluid, ThinPrep and cell block: - No malignant cells identified. - Focally reactive mesothelial cells and few inflammatory cells identified. (JPM:csd; d/t: 12/12/2016) PATHOLOGIST: Randy Buckley M.D. REPORT ELECTRONICALLY SIGNED BY: Randy Buckley M.D. DATE/TIME: 12/12/2016 17:21 GROSS PATHOLOGY: A. Pleural fluid, Right: The specimen is submitted unfixed, labeled "Enrique Foote". Received by the Cytology Department is 50 mL of dark red fluid. One ThinPrep slide and a cell block were prepared. (clt 12.11.2016) TOOL ROOM LATHE OPERATOR(S): KISHOR Neal(ASCP) INITIAL CPT CODE(S): A; 56764, 23424 Professional services performed by [facility] [place] [address] Technical services performed by [facility] at [address] [place] [address], [address], [place] [address]. PATIENT: ENRIQUE FOOTE /AGE: 11 1945 (Age: 71) SEX: M PATIENT #: [id number] ALT CASE #: SPECIMEN COLLECTION DATE: 12/10/2016 SPECIMEN RECEIVED DATE: 12/11/2016 [facility] [address] [place] [address], [address] [place] [address] PHONE: [phone] DIRECTOR: Aki Bhatia M.D. * * * END OF REPORT * * *
[2016-12-12 19:16] VITALS: BP 125/65
[2016-12-12] MEDS: INSULIN DETEMIR 300 UNITS/3 ML INSULN.PEN. SQ SCH (20:56)
[2016-12-12] MEDS ORDERED: [UNRECOGNIZED DRUG - OTHER] IV SCH ×10 (22:00)
[2016-12-12] MEDS ORDERED: TOTAL PARENTERAL NUTRITION IV SCH ×10 (22:00)
[2016-12-12] MEDS ORDERED: AMINO ACIDS IV SCH ×10 (22:00)
[2016-12-12] MEDS ORDERED: DEXTROSE 70% IV SCH ×10 (22:00)
[2016-12-12 23:02] VITALS: BP 129/72
[2016-12-13] MEDS: INSULIN ASPART 300 UNITS/3 ML INSULN.PEN SQ SCH ×5 (00:34→23:49)
[2016-12-13] MEDS: LORAZEPAM 2 MG/ML VIAL. IV PRN (01:51)
[2016-12-13 03:29] VITALS: BP 139/84
[2016-12-13] MEDS: METOPROLOL TARTRATE 5 MG/5 ML VIAL. IVP SCH ×4 (04:00→22:11)
[2016-12-13] MEDS: IPRATROPIUM BROMIDE 0.5 MG/2.5 ML NEBU. NEB SCH ×4 (06:09→20:17)
[2016-12-13 07:05] LABS: CALCIUM 8.9 mg/dL (8.5-10.1); CREATININE 1.6 mg/dL (0.7-1.3); GFR 42.8; POTASSIUM 4.8 mmol/L (3.5-5.1)
[2016-12-13 07:07] LABS: BASO # 0.1 x10^3/uL (0.0-0.2); BASO % 1 % (0-3); EOS % 10 % (0-3); HEMATOCRIT 27.7 % (39.0-53.0); HEMOGLOBIN 9.3 g/dL (13.0-17.5); LYMPH # 1.2 x10^3/uL (1.0-4.8); LYMPH % 11 % (24-48); MEAN CORPUSCULAR HEMOGLOBIN 31 pg (25-35); MEAN CORPUSCULAR HGB CONC 34 g/dL (31-37); MEAN CORPUSCULAR VOLUME 93 fL (79-100); MONO % 13 % (0-9); NEUT % 65 % (31-73); PLATELET COUNT 351 x10^3/uL (140-400); RED BLOOD COUNT 2.99 x10^6/uL (4.30-5.70); RED CELL DISTRIBUTION WIDTH 16.3 % (11.5-14.5)
[2016-12-13 07:43] VITALS: BP 139/71
[2016-12-13 08:58] LABS: % EOS 7 % (0-5); PLT ESTIMATE INCREASED (ADEQUATE); POIKILOCYTOSIS PRESENT
--- NOTE | 2016-12-13 09:22 | RAD ---
Portable AP upright chest x-ray performed at 0808 Clinical indications: Follow-up of right chest tube. Comparison: December 12, 2016. IMPRESSION: Right right lung base atelectasis has resolved. There is persistent round radiodensity of the right midlung zone. This could represent a right lung mass or loculated fluid within the major fissure. This is unchanged. No pneumothorax is seen. The right sided chest tube is unchanged in position. Right IJ central line is unchanged in position. Heart size and mediastinum are stable.
[2016-12-13] MEDS: ASPIRIN 300 MG SUPP.RECT PR SCH (09:53)
[2016-12-13] MEDS: PANTOPRAZOLE IV PUSH 40 MG VIAL. IVP SCH (09:54)
[2016-12-13] MEDS: TPN PER PHARMACY MC PRN (09:56)
--- NOTE | 2016-12-13 09:59 | PDOC ---
PULMONARY PROGRESS NOTES Subjective no soa, is on 02, weak, no cough, no pain chest tube output 60 cc /24 hr Vitals Vital Signs Date Time Temp Pulse Resp B/P Pulse Ox O2 Delivery O2 Flow Rate FiO2 12/13/16 09:55 94 139/71 12/13/16 07:43 97.9 16 96 Nasal Cannula 1.0 97.9 Comments ros as mentioned as above. discussed w rn, other sys otherwise neg ROS: No Nausea, No Abdominal Pain General: Alert, No acute distress HEENT: Other (nc at, perrl, nose clear, shallow oropharynx. neck, + jvd, no thyromegaly, no lap) Lungs: Crackles, Other (decrease bs, r ct) Cardiovascular: S1, S2 Abdomen: Soft, Non-tender, Other (no mass) Neuro Exam: Alert Extremities: Other (2=edema) Skin: Warm Labs Laboratory Tests Test 12/11/16 12:18 12/11/16 18:22 12/11/16 23:40 12/11/16 23:58 Glucose (Fingerstick) 164mg/dL (70-99) 192mg/dL (70-99) 202mg/dL (70-99) 211mg/dL (70-99) Test 12/12/16 06:19 12/12/16 06:20 12/12/16 12:01 12/12/16 17:02 Glucose (Fingerstick) 207mg/dL (70-99) 203mg/dL (70-99) 171mg/dL (70-99) White Blood Count 9.5x10^3/uL (4.0-11.0) Red Blood Count 2.87x10^6/uL (4.30-5.70) Hemoglobin 8.7g/dL (13.0-17.5) Hematocrit 26.4% (39.0-53.0) Mean Corpuscular Volume 92fL (79-100) Mean Corpuscular Hemoglobin 30pg (25-35) Mean Corpuscular Hemoglobin Concent 33g/dL (31-37) Red Cell Distribution Width 16.5% (11.5-14.5) Platelet Count 354x10^3/uL (140-400) Neutrophils (%) (Auto) 65% (31-73) Lymphocytes (%) (Auto) 12% (24-48) Monocytes (%) (Auto) 13% (0-9) Eosinophils (%) (Auto) 9% (0-3) Basophils (%) (Auto) 1% (0-3) Neutrophils # (Auto) 6.2x10^3uL (1.8-7.7) Lymphocytes # (Auto) 1.2x10^3/uL (1.0-4.8) Monocytes # (Auto) 1.2x10^3/uL (0.0-1.1) Eosinophils # (Auto) 0.9x10^3/uL (0.0-0.7) Basophils # (Auto) 0.1x10^3/uL (0.0-0.2) Sodium Level 137mmol/L (136-145) Potassium Level 4.9mmol/L (3.5-5.1) Chloride Level 105mmol/L (98-107) Carbon Dioxide Level 24mmol/L (21-32) Anion Gap 8 (6-14) Blood Urea Nitrogen 61mg/dL (8-26) Creatinine 1.7mg/dL (0.7-1.3) Estimated GFR (Cockcroft-Gault) 39.9 Glucose Level 225mg/dL (70-99) Calcium Level 9.0mg/dL (8.5-10.1) Test 12/13/16 00:17 12/13/16 06:40 Glucose (Fingerstick) 184mg/dL (70-99) White Blood Count 11.0x10^3/uL (4.0-11.0) Red Blood Count 2.99x10^6/uL (4.30-5.70) Hemoglobin 9.3g/dL (13.0-17.5) Hematocrit 27.7% (39.0-53.0) Mean Corpuscular Volume 93fL (79-100) Mean Corpuscular Hemoglobin 31pg (25-35) Mean Corpuscular Hemoglobin Concent 34g/dL (31-37) Red Cell Distribution Width 16.3% (11.5-14.5) Platelet Count 351x10^3/uL (140-400) Neutrophils (%) (Auto) 65% (31-73) Lymphocytes (%) (Auto) 11% (24-48) Monocytes (%) (Auto) 13% (0-9) Eosinophils (%) (Auto) 10% (0-3) Basophils (%) (Auto) 1% (0-3) Neutrophils # (Auto) 7.2x10^3uL (1.8-7.7) Lymphocytes # (Auto) 1.2x10^3/uL (1.0-4.8) Monocytes # (Auto) 1.4x10^3/uL (0.0-1.1) Eosinophils # (Auto) 1.1x10^3/uL (0.0-0.7) Basophils # (Auto) 0.1x10^3/uL (0.0-0.2) Segmented Neutrophils % 71% (35-66) Band Neutrophils % 3% (0-9) Lymphocytes % 11% (24-48) Monocytes % 7% (0-10) Eosinophils % 7% (0-5) Myelocytes % 1% (0-0) Platelet Estimate Increased (ADEQUATE) Platelet Clumps, EDTA Present Poikilocytosis Present Sodium Level 137mmol/L (136-145) Potassium Level 4.8mmol/L (3.5-5.1) Chloride Level 104mmol/L (98-107) Carbon Dioxide Level 23mmol/L (21-32) Anion Gap 10 (6-14) Blood Urea Nitrogen 53mg/dL (8-26) Creatinine 1.6mg/dL (0.7-1.3) Estimated GFR (Cockcroft-Gault) 42.8 Glucose Level 198mg/dL (70-99) Calcium Level 8.9mg/dL (8.5-10.1) Laboratory Tests Test 12/12/16 12:01 12/12/16 17:02 12/13/16 00:17 12/13/16 06:40 Glucose (Fingerstick) 203mg/dL (70-99) 171mg/dL (70-99) 184mg/dL (70-99) White Blood Count 11.0x10^3/uL (4.0-11.0) Red Blood Count 2.99x10^6/uL (4.30-5.70) Hemoglobin 9.3g/dL (13.0-17.5) Hematocrit 27.7% (39.0-53.0) Mean Corpuscular Volume 93fL (79-100) Mean Corpuscular Hemoglobin 31pg (25-35) Mean Corpuscular Hemoglobin Concent 34g/dL (31-37) Red Cell Distribution Width 16.3% (11.5-14.5) Platelet Count 351x10^3/uL (140-400) Neutrophils (%) (Auto) 65% (31-73) Lymphocytes (%) (Auto) 11% (24-48) Monocytes (%) (Auto) 13% (0-9) Eosinophils (%) (Auto) 10% (0-3) Basophils (%) (Auto) 1% (0-3) Neutrophils # (Auto) 7.2x10^3uL (1.8-7.7) Lymphocytes # (Auto) 1.2x10^3/uL (1.0-4.8) Monocytes # (Auto) 1.4x10^3/uL (0.0-1.1) Eosinophils # (Auto) 1.1x10^3/uL (0.0-0.7) Basophils # (Auto) 0.1x10^3/uL (0.0-0.2) Segmented Neutrophils % 71% (35-66) Band Neutrophils % 3% (0-9) Lymphocytes % 11% (24-48) Monocytes % 7% (0-10) Eosinophils % 7% (0-5) Myelocytes % 1% (0-0) Platelet Estimate Increased (ADEQUATE) Platelet Clumps, EDTA Present Poikilocytosis Present Sodium Level 137mmol/L (136-145) Potassium Level 4.8mmol/L (3.5-5.1) Chloride Level 104mmol/L (98-107) Carbon Dioxide Level 23mmol/L (21-32) Anion Gap 10 (6-14) Blood Urea Nitrogen 53mg/dL (8-26) Creatinine 1.6mg/dL (0.7-1.3) Estimated GFR (Cockcroft-Gault) 42.8 Glucose Level 198mg/dL (70-99) Calcium Level 8.9mg/dL (8.5-10.1) Comments cxr reviewed, / resolved right effusion, r ct Impression . 1. Acute respiratory failure secondary to [id number] cardiopulmonary arrest. 2. Hyperlipidemia. 3. Diabetes. 4. Positive venous Doppler/ high prob V/Q, popliteal nonocclusive thrombus. 5. Metabolic acidosis sec to code, improved. 6. PE, Bilateral DVT/ PE- S/p IVC. 7. Ischemia CM 35-40%, cath no significant lesion 8. Acute kidney injury 9. anemia, 10. wheezing, acute bronchospasm, resolved 11. right effusion, bloody,doubt hemothorax, improved post thoracentesis, suspect related to pulmonary infarct Plan . s/p right thoracentesis/ chest tube to suction.(exudate, gram stain neg) i personally removed ct, will do stat cxr and review monitor output In the setting of ongoing anemia and recent hemorrhagic effusion , I would recommend no further lovenox. Pt has IVC filter cath report noted pt ot resp status is compensated follow results of pleural fluid cytology d/w rn pt ASHLEY DIAZ MD Dec 13, 2016 09:58
[2016-12-13 10:02] VITALS: BP 135/68
--- NOTE | 2016-12-13 10:56 | RAD ---
Portable AP upright view CXR: Clinical indications: Chest tube removal. IMPRESSION: No pneumothorax is seen after right chest tube removal. Right lung base remains clear without blunting of the right lateral costophrenic angle. Again seen is a round density of the right midlung zone.
--- NOTE | 2016-12-13 11:51 | PDOC ---
PROGRESS NOTES Chief Complaint Chief Complaint S/P VT/VF Cardiac arrest Acute respiratory failure possibly 2/2 PE; extubated 11/27 DVT bilateral LEs - IVC filter placed 11/29 Acute blood loss anemia s/p transfusion dysphagia Silent Aspiration; failed swallow study HFrEF [place] vs. CKD DM II bactremia with Peptostreptococcus sp. on Zosyn (day 13) HLD leukocytosis R hemothorax s/p thoracentesis with indwelling chest tube (12/11), transudative, neg cx and GS History of Present Illness History of Present Illness Rt chest tube out Weak Does not voice out any more SOA or CP CXR post removal Chest tube not yet done Urine is clear - not black anymore- has not been getting the ASA [facility] and lovenox BID sec to hemothorax Pleural fluid studies reviewed, hemothorax, transudative, neg cx and gram stain PLAN: Restart ASa [facility] and lovenox BID Monitor for recurrence of dark urine Tentatively planned for PEG Thursday Hold lovenox thursday night for PEG plans COnt TPN PT/OT Looking at Acute rehab upon dc (f[facility] does not want to go to [facility]) Full code Dw RN Vitals Vitals Vital Signs Date Time Temp Pulse Resp B/P Pulse Ox O2 Delivery O2 Flow Rate FiO2 12/13/16 11:30 95 Nasal Cannula 2.0 12/13/16 10:02 98.0 79 16 135/68 98.0 Physical Exam General: Alert, Oriented X3, Other (very fatigued) Heart: Normal S1 Lungs: Crackles, Other Abdomen: Soft, No tenderness Extremities: Other (1+ edema all extremities) Skin: No rashes, Other (no bruising) Labs LABS Laboratory Tests Test 12/12/16 12:01 12/12/16 17:02 12/13/16 00:17 12/13/16 06:40 Glucose (Fingerstick) 203mg/dL (70-99) 171mg/dL (70-99) 184mg/dL (70-99) White Blood Count 11.0x10^3/uL (4.0-11.0) Red Blood Count 2.99x10^6/uL (4.30-5.70) Hemoglobin 9.3g/dL (13.0-17.5) Hematocrit 27.7% (39.0-53.0) Mean Corpuscular Volume 93fL (79-100) Mean Corpuscular Hemoglobin 31pg (25-35) Mean Corpuscular Hemoglobin Concent 34g/dL (31-37) Red Cell Distribution Width 16.3% (11.5-14.5) Platelet Count 351x10^3/uL (140-400) Neutrophils (%) (Auto) 65% (31-73) Lymphocytes (%) (Auto) 11% (24-48) Monocytes (%) (Auto) 13% (0-9) Eosinophils (%) (Auto) 10% (0-3) Basophils (%) (Auto) 1% (0-3) Neutrophils # (Auto) 7.2x10^3uL (1.8-7.7) Lymphocytes # (Auto) 1.2x10^3/uL (1.0-4.8) Monocytes # (Auto) 1.4x10^3/uL (0.0-1.1) Eosinophils # (Auto) 1.1x10^3/uL (0.0-0.7) Basophils # (Auto) 0.1x10^3/uL (0.0-0.2) Segmented Neutrophils % 71% (35-66) Band Neutrophils % 3% (0-9) Lymphocytes % 11% (24-48) Monocytes % 7% (0-10) Eosinophils % 7% (0-5) Myelocytes % 1% (0-0) Platelet Estimate Increased (ADEQUATE) Platelet Clumps, EDTA Present Poikilocytosis Present Sodium Level 137mmol/L (136-145) Potassium Level 4.8mmol/L (3.5-5.1) Chloride Level 104mmol/L (98-107) Carbon Dioxide Level 23mmol/L (21-32) Anion Gap 10 (6-14) Blood Urea Nitrogen 53mg/dL (8-26) Creatinine 1.6mg/dL (0.7-1.3) Estimated GFR (Cockcroft-Gault) 42.8 Glucose Level 198mg/dL (70-99) Calcium Level 8.9mg/dL (8.5-10.1) Test 12/13/16 10:56 Glucose (Fingerstick) 215mg/dL (70-99) Review of Systems Review of Systems weak, no appetite, no n.v.d Assessment and Plan Assessmemt and Plan Problems Medical Problems: (1) Cardiac arrest Status: Acute Problems: Comment Review of Relevant I have reviewed the following items rodolfo (where applicable) has been applied. Labs Laboratory Tests Test 12/11/16 12:18 12/11/16 18:22 12/11/16 23:40 12/11/16 23:58 Glucose (Fingerstick) 164mg/dL (70-99) 192mg/dL (70-99) 202mg/dL (70-99) 211mg/dL (70-99) Test 12/12/16 06:19 12/12/16 06:20 12/12/16 12:01 12/12/16 17:02 Glucose (Fingerstick) 207mg/dL (70-99) 203mg/dL (70-99) 171mg/dL (70-99) White Blood Count 9.5x10^3/uL (4.0-11.0) Red Blood Count 2.87x10^6/uL (4.30-5.70) Hemoglobin 8.7g/dL (13.0-17.5) Hematocrit 26.4% (39.0-53.0) Mean Corpuscular Volume 92fL (79-100) Mean Corpuscular Hemoglobin 30pg (25-35) Mean Corpuscular Hemoglobin Concent 33g/dL (31-37) Red Cell Distribution Width 16.5% (11.5-14.5) Platelet Count 354x10^3/uL (140-400) Neutrophils (%) (Auto) 65% (31-73) Lymphocytes (%) (Auto) 12% (24-48) Monocytes (%) (Auto) 13% (0-9) Eosinophils (%) (Auto) 9% (0-3) Basophils (%) (Auto) 1% (0-3) Neutrophils # (Auto) 6.2x10^3uL (1.8-7.7) Lymphocytes # (Auto) 1.2x10^3/uL (1.0-4.8) Monocytes # (Auto) 1.2x10^3/uL (0.0-1.1) Eosinophils # (Auto) 0.9x10^3/uL (0.0-0.7) Basophils # (Auto) 0.1x10^3/uL (0.0-0.2) Sodium Level 137mmol/L (136-145) Potassium Level 4.9mmol/L (3.5-5.1) Chloride Level 105mmol/L (98-107) Carbon Dioxide Level 24mmol/L (21-32) Anion Gap 8 (6-14) Blood Urea Nitrogen 61mg/dL (8-26) Creatinine 1.7mg/dL (0.7-1.3) Estimated GFR (Cockcroft-Gault) 39.9 Glucose Level 225mg/dL (70-99) Calcium Level 9.0mg/dL (8.5-10.1) Test 12/13/16 00:17 12/13/16 06:40 12/13/16 10:56 Glucose (Fingerstick) 184mg/dL (70-99) 215mg/dL (70-99) White Blood Count 11.0x10^3/uL (4.0-11.0) Red Blood Count 2.99x10^6/uL (4.30-5.70) Hemoglobin 9.3g/dL (13.0-17.5) Hematocrit 27.7% (39.0-53.0) Mean Corpuscular Volume 93fL (79-100) Mean Corpuscular Hemoglobin 31pg (25-35) Mean Corpuscular Hemoglobin Concent 34g/dL (31-37) Red Cell Distribution Width 16.3% (11.5-14.5) Platelet Count 351x10^3/uL (140-400) Neutrophils (%) (Auto) 65% (31-73) Lymphocytes (%) (Auto) 11% (24-48) Monocytes (%) (Auto) 13% (0-9) Eosinophils (%) (Auto) 10% (0-3) Basophils (%) (Auto) 1% (0-3) Neutrophils # (Auto) 7.2x10^3uL (1.8-7.7) Lymphocytes # (Auto) 1.2x10^3/uL (1.0-4.8) Monocytes # (Auto) 1.4x10^3/uL (0.0-1.1) Eosinophils # (Auto) 1.1x10^3/uL (0.0-0.7) Basophils # (Auto) 0.1x10^3/uL (0.0-0.2) Segmented Neutrophils % 71% (35-66) Band Neutrophils % 3% (0-9) Lymphocytes % 11% (24-48) Monocytes % 7% (0-10) Eosinophils % 7% (0-5) Myelocytes % 1% (0-0) Platelet Estimate Increased (ADEQUATE) Platelet Clumps, EDTA Present Poikilocytosis Present Sodium Level 137mmol/L (136-145) Potassium Level 4.8mmol/L (3.5-5.1) Chloride Level 104mmol/L (98-107) Carbon Dioxide Level 23mmol/L (21-32) Anion Gap 10 (6-14) Blood Urea Nitrogen 53mg/dL (8-26) Creatinine 1.6mg/dL (0.7-1.3) Estimated GFR (Cockcroft-Gault) 42.8 Glucose Level 198mg/dL (70-99) Calcium Level 8.9mg/dL (8.5-10.1) Laboratory Tests Test 12/12/16 12:01 12/12/16 17:02 12/13/16 00:17 12/13/16 06:40 Glucose (Fingerstick) 203mg/dL (70-99) 171mg/dL (70-99) 184mg/dL (70-99) White Blood Count 11.0x10^3/uL (4.0-11.0) Red Blood Count 2.99x10^6/uL (4.30-5.70) Hemoglobin 9.3g/dL (13.0-17.5) Hematocrit 27.7% (39.0-53.0) Mean Corpuscular Volume 93fL (79-100) Mean Corpuscular Hemoglobin 31pg (25-35) Mean Corpuscular Hemoglobin Concent 34g/dL (31-37) Red Cell Distribution Width 16.3% (11.5-14.5) Platelet Count 351x10^3/uL (140-400) Neutrophils (%) (Auto) 65% (31-73) Lymphocytes (%) (Auto) 11% (24-48) Monocytes (%) (Auto) 13% (0-9) Eosinophils (%) (Auto) 10% (0-3) Basophils (%) (Auto) 1% (0-3) Neutrophils # (Auto) 7.2x10^3uL (1.8-7.7) Lymphocytes # (Auto) 1.2x10^3/uL (1.0-4.8) Monocytes # (Auto) 1.4x10^3/uL (0.0-1.1) Eosinophils # (Auto) 1.1x10^3/uL (0.0-0.7) Basophils # (Auto) 0.1x10^3/uL (0.0-0.2) Segmented Neutrophils % 71% (35-66) Band Neutrophils % 3% (0-9) Lymphocytes % 11% (24-48) Monocytes % 7% (0-10) Eosinophils % 7% (0-5) Myelocytes % 1% (0-0) Platelet Estimate Increased (ADEQUATE) Platelet Clumps, EDTA Present Poikilocytosis Present Sodium Level 137mmol/L (136-145) Potassium Level 4.8mmol/L (3.5-5.1) Chloride Level 104mmol/L (98-107) Carbon Dioxide Level 23mmol/L (21-32) Anion Gap 10 (6-14) Blood Urea Nitrogen 53mg/dL (8-26) Creatinine 1.6mg/dL (0.7-1.3) Estimated GFR (Cockcroft-Gault) 42.8 Glucose Level 198mg/dL (70-99) Calcium Level 8.9mg/dL (8.5-10.1) Test 12/13/16 10:56 Glucose (Fingerstick) 215mg/dL (70-99) Microbiology 11/28/16 Blood Culture - Final, Complete NO GROWTH AFTER 5 DAYS 12/10/16 Anaerobic/Aerobic Culture - Preliminary, Resulted 12/10/16 Anaerobic Culture Result 1 (ROSIE) - Preliminary, Resulted 12/10/16 Aerobic Culture - Final, Resulted 12/10/16 Aerobic Culture Result 1 (ROSIE) - Final, Resulted 11/24/16 Stool Culture - Final, Complete 11/24/16 Stool Culture Result 1 (ROSIE) - Final, Complete 11/24/16 Campylobacter Antigen Assay - Final, Complete 11/24/16 Campylobactor Result 1 - Final, Complete 11/24/16 Shiga Toxin Test - Final, Complete 12/09/16 Urine Culture - Final, Complete 12/09/16 Urine Culture Result 1 (ROSIE) - Final, Complete Medications Current Medications Sodium Chloride 1,000 ml @ 1,000 mls/hr Q1H IV Last administered on 11/24/16 06:50; Start 11/24/16 at 06:50; Stop 11/24/16 at 07:49; Status DC Epinephrine HCl/ Sodium Chloride (Adrenalin/Iv Sodium Chloride 0.9% 250ml) 254 ml @ 0 mls/hr CONT PRN IV SEE I/O RECORD Last administered on 11/26/16 03:05; Start 11/24/16 at 07:30; Stop 11/27/16 at 08:25; Status DC Insulin Aspart (Novolog) 0-7 UNITS TIDWMEALS SQ ; Start 11/24/16 at 08:00; Stop 11/24/16 at 15:36; Status DC Dextrose 12.5 gm 12.5 gm PRN Q15MIN PRN IV SEE COMMENTS; Start 11/24/16 at 07: 45; Stop 11/25/16 at 23:34; Status DC Sodium Chloride (Iv Sodium Chloride 0.9% 1000ml Bag) 1,000 ml @ 125 mls/hr 1X ONCE IV Last administered on 11/24/16 07:52; Start 11/24/16 at 08:00; Stop at 08:20; Status DC Vancomycin HCl (Vanco Per Pharmacy) 1 each PRN DAILY PRN MC SEE COMMENTS Last administered on 11/24/16 11:26; Start 11/24/16 at 08:15; Stop 11/24/16 at 13:06 ; Status DC Piperacillin Sod/ Tazobactam Sod 1 each 1 each PRN DAILY PRN MC SEE COMMENTS; Start 11/24/16 at 08:15; Stop 11/24/16 at 13:06; Status DC Sodium Bicarbonate 50 meq/Sodium Chloride 1,050 ml @ 125 mls/hr Q8H24M IV Last administered on 11/26/16 11:24; Start 11/24/16 at 08:30; Stop 11/26/16 at 12:41; Status DC Vancomycin HCl 2 gm/Sodium Chloride 500 ml @ 250 mls/hr ONCE ONCE IV Last administered on 11/24/16 10:15; Start 11/24/16 at 08:30; Stop 11/24/16 at 10:29 ; Status DC Piperacillin Sod/ Tazobactam Sod 4.5 gm/Sodium Chloride 100 ml @ 200 mls/hr Q6HRS IV Last administered on 11/24/16 10:10; Start 11/24/16 at 08:30; Stop at 11:15; Status DC Sodium Chloride (Iv Sodium Chloride 0.9% 1000ml Bag) 1,000 ml @ 1,000 mls/hr Q1H IV Last administered on 11/24/16 10:09; Start 11/24/16 at 08:39; Stop at 11:47; Status DC Fentanyl Citrate (Fentanyl 2ml Vial) 25 mcg PRN Q30MIN PRN IV SED Last administered on 11/30/16 17:24; Start 11/24/16 at 08:45; Stop 12/04/16 at 06:29 ; Status DC Lorazepam 1 mg 1 mg PRN Q30MIN PRN IV SEDATION Last administered on 11/25/16 12:26; Start 11/24/16 at 08:45; Stop 11/28/16 at 19:45; Status DC Fentanyl Citrate 30 ml @ 2.5 mls/hr CONT PRN PRN IV IVF Last administered on 07:40; Start 11/24/16 at 08:45; Stop 11/26/16 at 17:49; Status DC Propofol (Diprivan) 100 ml @ 0 mls/hr CONT PRN IV SEE I/O RECORD Last administered on 11/26/16 07:38; Start 11/24/16 at 08:45; Stop 11/26/16 at 17:49 ; Status DC Vecuronium [place]bler (Norcuron Bolus) 9 mg PRN Q30MIN PRN IV SHIVERING Last administered on 11/24/16 17:38; Start 11/24/16 at 08:45; Stop 11/26/16 at 17:49 ; Status DC Meperidine HCl (Demerol) 12.5 mg PRN Q30MIN PRN IV SHIVERING Last administered on 11/24/16 22:21; Start 11/24/16 at 08:45; Stop 11/24/16 at 22:21; Status DC Multi-Ingred Cream/Lotion/Oil/ Oint (Artificial Tears Eye Oint) 1 radha PRN Q6HRS PRN OU 0.5 INCH FOR DRY EYE; Start 11/24/16 at 08:45 Famotidine (Pepcid) 20 mg QHS IVP Last administered on 11/27/16 21:12; Start 11/24/16 at 21:00; Stop 11/28/16 at 09:46; Status DC Aspirin (Aspirin) 300 mg DAILY [facility] Last administered on 12/13/16 09:53; Start at 09:00 Sodium Chloride (Normal Saline Flush) 3 ml QSHIFT PRN IV AFTER MEDS AND BLOOD DRAWS; Start 11/24/16 at 08:45 Acetaminophen (Tylenol) 650 mg Q6HRS NG ; Start 11/24/16 at 12:00; Stop at 11:59; Status DC Acetaminophen (Tylenol) 650 mg PRN Q6HRS PRN [facility] MILD PAIN / TEMP; Start at 08:45; Stop 11/25/16 at 23:35; Status DC Acetaminophen (Tylenol) 650 mg PRN Q6HRS PRN NG MILD PAIN / TEMP; Start at 08:45 Info 1 ea 1 ea DAILY PRN MC PER PROTOCOL; Start 11/26/16 at 08:45; Stop at 09:17; Status DC Insulin Human Regular 150 unit/ Sodium Chloride 151.5 ml @ 9.16 mls/hr CONT PRN IV SEE I/O RECORD Last administered on 11/24/16 10:13; Start 11/24/16 at 09 :30; Stop 11/27/16 at 08:25; Status DC Piperacillin Sod/ Tazobactam Sod 3.375 gm/Sodium Chloride 50 ml @ 100 mls/hr Q6HRS IV ; Start 11/24/16 at 18:00; Stop 11/24/16 at 18:00; Status DC Vancomycin HCl/ Sodium Chloride (Iv Sodium Chloride 0.9% 500ml Bag) 500 ml @ 250 mls/hr Q24H IV ; Start 11/25/16 at 10:00; Stop 11/25/16 at 10:00; Status DC Vancomycin HCl 1 each 1 each 1X ONCE MC ; Start 11/26/16 at 09:30; Stop at 09:30; Status DC Sodium Chloride (Iv Sodium Chloride 0.9% 1000ml Bag) 1,000 ml @ 1,000 mls/hr 1X ONCE IV Last administered on 11/24/16 11:00; Start 11/24/16 at 11:00; Stop 11/24/16 at 11:59; Status DC Insulin Detemir (Levemir) 12 units QHS SQ ; Start 11/24/16 at 21:00; Stop at 21:00; Status DC Insulin Aspart (Novolog) 10 units 1X ONCE SQ ; Start 11/24/16 at 15:30; Stop at 20:10; Status DC Insulin Aspart (Novolog) 0-7 UNITS Q4HRS SQ ; Start 11/24/16 at 16:00; Stop at 20:10; Status DC Heparin Sodium (Porcine) 8100 unit 8,100 unit 1X ONCE IV Last administered on 11/24/16 17:24; Start 11/24/16 at 17:00; Stop 11/24/16 at 17:01; Status DC Heparin Sodium/ Dextrose 500 ml @ 0 mls/hr CONT PRN IV SEE I/O RECORD Last administered on 11/28/16 02:06; Start 11/24/16 at 16:45; Stop 11/28/16 at 17:12 ; Status DC Heparin Sodium (Porcine) 3,000 unit PRN Q6HRS PRN IV FOR UFH LEVEL LESS THAN 0.2; Start 11/24/16 at 16:45; Stop 11/28/16 at 17:12; Status DC Heparin Sodium (Porcine) 1,500 unit PRN Q6HRS PRN IV FOR UFH LEVEL 0.2 - 0.29 Last administered on 11/26/16 12:08; Start 11/24/16 at 16:45; Stop 11/28/16 at 17:12; Status DC Info 1 each 1 each PRN DAILY PRN MC SEE COMMENTS Last administered on 10:03; Start 11/24/16 at 17:00; Stop 11/28/16 at 17:13; Status DC Piperacillin Sod/ Tazobactam Sod 3.375 gm/Sodium Chloride 50 ml @ 100 mls/hr Q6HRS IV Last administered on 12/07/16 05:21; Start 11/25/16 at 00:00; Stop 12/07/16 at 12:10; Status DC Vancomycin HCl/ Sodium Chloride (Iv Sodium Chloride 0.9% 250ml) 250 ml @ 250 mls/hr 1X ONCE IV ; Start 11/24/16 at 21:30; Stop 11/24/16 at 22:29; Status UNV Vancomycin HCl 1 each 1 each PRN DAILY PRN MC SEE COMMENTS Last administered on 11/25/16 03:30; Start 11/25/16 at 01:00; Stop 11/25/16 at 08:57; Status DC Vancomycin HCl/ Sodium Chloride (Iv Sodium Chloride 0.9% 500ml Bag) 500 ml @ 250 mls/hr Q24H IV ; Start 11/25/16 at 10:00; Stop 11/25/16 at 10:00; Status DC Vancomycin HCl 1 each 1X ONCE MC ; Start 11/26/16 at 09:30; Stop 11/26/16 at 09 :30; Status DC Enoxaparin Sodium (Lovenox Per Pharmacy Prophylaxis Dosing) 1 each PRN DAILY PRN MC SEE COMMENTS; Start 11/25/16 at 08:45; Status UNV Chlorhexidine Gluconate 15 ml 15 ml BID MM Last administered on 11/26/16 08:37 ; Start 11/25/16 at 21:00; Stop 11/26/16 at 17:49; Status DC Magnesium Sulfate/ Dextrose 50 ml @ 25 mls/hr PRN DAILY PRN IV for Mag < 1.7 on am labs Last administered on 11/26/16 05:29; Start 11/25/16 at 09:45; Stop 11/27/16 at 08:47; Status DC Magnesium Sulfate/ Dextrose 50 ml @ 25 mls/hr PRN DAILY PRN IV for Mag < 1.7 on am labs; Start 11/25/16 at 09:45; Status UNV Sodium Chloride 500 ml @ 0 mls/hr QID PRN IV UO< 30cc/hr over previous 6hrs Last administered on 11/25/16 10:54; Start 11/25/16 at 09:45; Stop 11/27/16 at 11:25; Status DC Magnesium Sulfate/ Dextrose (Magnesium Sulfate PREMIX 2GM) 50 ml @ 25 mls/hr 1X ONCE IV Last administered on 11/25/16 13:28; Start 11/25/16 at 12:30; Stop 11/25/16 at 14:29; Status DC Lidocaine/Sodium Bicarbonate 20 ml 20 ml STK-MED ONCE IJ ; Start 11/25/16 at 12: 35; Stop 11/25/16 at 12:36; Status DC Heparin Sodium/ Sodium Chloride 500 ml @ As Directed STK-MED ONCE .ROUTE ; Start 11/25/16 at 12:35; Stop 11/25/16 at 12:36; Status DC Lidocaine/Sodium Bicarbonate (Buffered Lidocaine 1%) 3 ml 1X ONCE IJ Last administered on 11/25/16 13:15; Start 11/25/16 at 13:15; Stop 11/25/16 at 13:16 ; Status DC Heparin Sodium/ Sodium Chloride 60 unit 1X ONCE IV Last administered on 13:16; Start 11/25/16 at 13:15; Stop 11/25/16 at 13:16; Status DC Amiodarone HCl (Cordarone) 450 mg STK-MED ONCE .ROUTE ; Start 11/25/16 at 12:00 ; Stop 11/25/16 at 14:56; Status DC Epinephrine HCl (Adrenalin) 30 mg STK-MED ONCE .ROUTE ; Start 11/25/16 at 12:00 ; Stop 11/25/16 at 14:56; Status DC Atropine Sulfate 1.5 mg STK-MED ONCE .ROUTE ; Start 11/25/16 at 12:00; Stop at 14:56; Status DC Epinephrine HCl 4 mg STK-MED ONCE .ROUTE ; Start 11/25/16 at 12:00; Stop at 14:56; Status DC Sodium Bicarbonate 150 meq 150 meq STK-MED ONCE .ROUTE ; Start 11/25/16 at 12:00 ; Stop 11/25/16 at 14:56; Status DC Midazolam HCl (Versed 100mg/ 100ml Premix) 100 ml @ 0 mls/hr CONT PRN IV SEE I/ O RECORD; Start 11/25/16 at 23:30; Stop 11/26/16 at 17:49; Status DC Insulin Aspart (Novolog) 0-7 UNITS TIDWMEALS SQ Last administered on 11/27/16 19:43; Start 11/26/16 at 08:00; Stop 11/28/16 at 01:01; Status DC Dextrose 12.5 gm PRN Q15MIN PRN IV SEE COMMENTS; Start 11/25/16 at 23:30; Stop 12/05/16 at 14:19; Status DC Acetaminophen 650 mg 650 mg PRN Q6HRS PRN [facility] MILD PAIN / TEMP Last administered on 11/28/16 04:19; Start 11/25/16 at 23:30; Stop 12/02/16 at 13:29 ; Status DC Potassium Chloride 50 ml @ 50 mls/hr Q1H IV Last administered on 11/26/16 11: 23; Start 11/26/16 at 10:30; Stop 11/26/16 at 12:29; Status DC Sodium Bicarbonate/ Sterile Water 1,100 ml @ 100 mls/hr Q11H IV Last administered on 11/27/16 00:56; Start 11/26/16 at 13:00; Stop 11/27/16 at 11:25 ; Status DC Info 1 each 1 each PRN DAILY PRN MC SEE COMMENTS Last administered on 12/13/16 09:56; Start 11/26/16 at 12:45 Calcium Chloride/ Sodium Chloride (Iv Sodium Chloride 0.9% 100ml) 120 ml @ 240 mls/hr 1X ONCE IV Last administered on 11/26/16 13:22; Start 11/26/16 at 13: 15; Stop 11/26/16 at 13:44; Status DC Ondansetron HCl 4 mg 4 mg PRN Q6HRS PRN IV NAUSEA/VOMITING Last administered on 12/03/16 21:17; Start 11/26/16 at 13:45; Stop 12/04/16 at 06:30; Status DC Sodium Chloride/ Potassium Chloride/ Magnesium Sulfate/ Calcium Gluconate/ Multivitamins/ Chromium/Copper/ Manganese/Seleni/ Zn/Total Parenteral Nutrition/ Amino Acids/Dextrose/ Fat Emulsion Intravenous (Sodium Chloride/ Infuvite Adult / Multitrace-5 Conc/ Tpn - Tpn Fluid/ Trophami... 1,594.468 ml @ 66.436 m... TPN CONT IV Last administered on 11/26/16 21:27; Start 11/26/16 at 22:00; Stop 11/27/16 at 21:59; Status DC Albuterol Sulfate 2.5 mg 2.5 mg 1X ONCE NEB Last administered on 11/27/16 07: 21; Start 11/27/16 at 06:45; Stop 11/27/16 at 06:46; Status DC Magnesium Sulfate/ Dextrose 50 ml @ 25 mls/hr PRN DAILY PRN IV for Mag < 1.7 on am labs; Start 11/27/16 at 08:45 Sodium Chloride 90 meq/Potassium Chloride 50 meq/ Magnesium Sulfate 10 meq/ Calcium Gluconate 10 meq/ Multivitamins 10 ml/Chromium/ Copper/Manganese/ Seleni /Zn 1 ml/ Total Parenteral Nutrition/Amino Acids/Dextrose/ Fat Emulsion Intravenous 1,594.468 ml @ 66.436 m... TPN CONT IV ; Start 11/27/16 at 22:00; Stop 11/28/16 at 21:59; Status Cancel Potassium Chloride/ Magnesium Sulfate/ Calcium Gluconate/ Multivitamins/ Chromium/Copper/ Manganese/Seleni/ Zn/Total Parenteral Nutrition/Amino Acids/ Dextrose/ Fat Emulsion Intravenous (Infuvite Adult/ Multitrace-5 Conc/ Tpn - Tpn Fluid/ Trophamine/ Dextrose 70%-Water Iv So... 1,512 ml @ 63 mls/hr TPN CONT IV Last administered on 11/27/16 21:22; Start 11/27/16 at 22:00; Stop at 21:59; Status DC Nitroglycerin 0.4 mg 0.4 mg STK-MED ONCE SL Last administered on 11/27/16 11: 26; Start 11/27/16 at 11:16; Stop 11/27/16 at 11:17; Status DC Albumin Human (Albuminar) 100 ml @ 100 mls/hr TID IV Last administered on 11/29 08:56; Start 11/27/16 at 12:00; Stop 11/29/16 at 09:59; Status DC Sodium Bicarbonate 50 meq 1X ONCE IV Last administered on 11/27/16 13:24; Start 11/27/16 at 12:45; Stop 11/27/16 at 12:46; Status DC Hydralazine HCl (Apresoline) 10 mg PRN Q4HRS PRN IVP ELEVATED BP, SEE COMMENTS Last administered on 12/03/16 20:18; Start 11/27/16 at 12:45 Metoprolol Tartrate (Lopressor) 5 mg Q6HRS IVP Last administered on 11/27/16 15:40; Start 11/27/16 at 15:30; Stop 11/27/16 at 19:11; Status DC Metoprolol Tartrate 5 mg 5 mg Q6HRS@04,10,16,22 IVP Last administered on 09:55; Start 11/27/16 at 22:00 Nicardipine HCl/ Sodium Chloride (Cardene/Iv Sodium Chloride 0.9% 250ml) 270 ml @ 0 mls/hr CONT PRN IV SEE I/O RECORD Last administered on 11/28/16 01:13; Start 11/27/16 at 20:45; Stop 12/05/16 at 09:17; Status DC Vancomycin HCl 1 each 1 each PRN DAILY PRN MC SEE COMMENTS Last administered on 11/27/16 21:38; Start 11/27/16 at 22:00; Stop 11/28/16 at 08:30; Status DC Vancomycin HCl 2 gm/Sodium Chloride 500 ml @ 250 mls/hr 1X ONCE IV Last administered on 11/27/16 22:57; Start 11/27/16 at 22:00; Stop 11/27/16 at 23:59 ; Status DC Vancomycin HCl/ Sodium Chloride (Iv Sodium Chloride 0.9% 500ml Bag) 500 ml @ 250 mls/hr Q24H IV ; Start 11/28/16 at 22:00; Stop 11/28/16 at 22:00; Status DC Vancomycin HCl 1 each 1X ONCE MC ; Start 11/29/16 at 21:30; Stop 11/29/16 at 21 :30; Status DC Insulin Aspart (Novolog) 0-7 UNITS Q6HRS SQ Last administered on 12/13/16 00:34 ; Start 11/28/16 at 01:00 Linezolid 600 mg 600 mg BID PO ; Start 11/28/16 at 09:00; Stop 11/28/16 at 19:45 ; Status DC Pantoprazole Sodium/Sodium Chloride (Protonix Iv/Iv Sodium Chloride 0.9% 100ml) 100 ml @ 10 mls/hr Q10H PRN IV . Last administered on 12/01/16 13:01; Start 11/28/16 at 10:00; Stop 12/01/16 at 15:59; Status DC Ipratropium Ambler (Atrovent) 0.5 mg RTQID NEB Last administered on 12/13/16 11:30; Start 11/28/16 at 12:00 Budesonide (Pulmicort) 0.5 mg RTBID NEB Last administered on 12/06/16 07:36; Start 11/28/16 at 20:00; Stop 12/06/16 at 18:19; Status DC Furosemide 40 mg 40 mg 1X ONCE IVP Last administered on 11/28/16 12:15; Start 11/28/16 at 12:15; Stop 11/28/16 at 12:16; Status DC Potassium Chloride/ Magnesium Sulfate/ Calcium Gluconate/ Multivitamins/ Chromium/Copper/ Manganese/Seleni/ Zn/Total Parenteral Nutrition/Amino Acids/ Dextrose/ Fat Emulsion Intravenous (Calcium Gluconate/ Infuvite Adult/ Multitrace-5 Conc/ Tpn - Tpn Fluid/ Trophami... 1,512 ml @ 63 mls/hr TPN CONT IV Last administered on 11/28/16 21:18; Start 11/28/16 at 22:00; Stop at 21:59; Status DC Lidocaine/Sodium Bicarbonate (Buffered Lidocaine 1%) 3 ml 1X ONCE IJ Last administered on 11/28/16 15:45; Start 11/28/16 at 14:45; Stop 11/28/16 at 14:46 ; Status DC Heparin Sodium/ Sodium Chloride 60 unit 1X ONCE IV Last administered on 15:45; Start 11/28/16 at 14:45; Stop 11/28/16 at 14:46; Status DC Heparin Sodium (Porcine) 2500 unit 2,500 unit 1X ONCE INT CAT Last administered on 11/28/16 15:45; Start 11/28/16 at 14:45; Stop 11/28/16 at 14:46 ; Status DC Linezolid 300 ml @ 300 mls/hr Q12HR IV Last administered on 12/01/16 21:13; Start 11/28/16 at 21:00; Stop 12/02/16 at 08:23; Status DC Potassium Chloride/ Potassium Acetate/ Magnesium Sulfate/ Calcium Gluconate/ Multivitamins/ Chromium/Copper/ Manganese/Seleni/ Zn/Total Parenteral Nutrition/ Amino Acids/Dextrose/ Fat Emulsion Intravenous (Calcium Gluconate/ Infuvite Adult/ Multitrace-5 Conc/ Tpn - Tpn Flu... 1,512 ml @ 63 mls/hr TPN CONT IV Last administered on 11/29/16 21:54; Start 11/29/16 at 22:00; Stop 11/30/16 at 21:59; Status DC Iohexol (Omnipaque 300 Mg/ml) 100 ml STK-MED ONCE .ROUTE ; Start 11/29/16 at 09: 12; Stop 11/29/16 at 09:13; Status DC Lidocaine/Sodium Bicarbonate 20 ml 20 ml STK-MED ONCE IJ ; Start 11/29/16 at 09: 12; Stop 11/29/16 at 09:13; Status DC Heparin Sodium/ Sodium Chloride 500 ml @ As Directed STK-MED ONCE .ROUTE ; Start 11/29/16 at 09:12; Stop 11/29/16 at 09:13; Status DC Lidocaine/Sodium Bicarbonate (Buffered Lidocaine 1%) 2 ml 1X ONCE IJ Last administered on 11/29/16 10:22; Start 11/29/16 at 10:00; Stop 11/29/16 at 10:15 ; Status DC Iohexol (Omnipaque 300 Mg/ml) 30 ml 1X ONCE IART Last administered on 10:22; Start 11/29/16 at 10:00; Stop 11/29/16 at 10:15; Status DC Heparin Sodium/ Sodium Chloride 1,000 unit 1X ONCE IV Last administered on 10:21; Start 11/29/16 at 10:00; Stop 11/29/16 at 10:15; Status DC Info 1 each 1 each PRN DAILY PRN MC SEE COMMENTS; Start 11/29/16 at 10:30; Stop 12/01/16 at 10:29; Status DC Heparin Sodium/ Dextrose 500 ml @ 0 mls/hr CONT PRN IV SEE I/O RECORD; Start at 15:15; Status UNV Heparin Sodium/ Dextrose 500 ml @ 0 mls/hr CONT PRN IV SEE I/O RECORD Last administered on 12/04/16 19:23; Start 11/29/16 at 15:15; Stop 12/05/16 at 08:51 ; Status DC Nitroglycerin/ Dextrose 250 ml @ 0 mls/hr CONT PRN IV SEE I/O RECORD Last administered on 11/30/16 10:53; Start 11/30/16 at 10:45; Stop 12/05/16 at 09:17 ; Status DC Potassium Acetate/ Potassium Phosphate/ Magnesium Sulfate/ Calcium Gluconate/ Multivitamins/ Chromium/Copper/ Manganese/Seleni/ Zn/Insulin Human Regular/ Total Parenteral Nutrition/Amino Acids/Dextrose/ Fat Emulsion Intravenous ( Potassium Phosphate/Calcium Gluconate/ Infuvite Asim... 1,472.1 ml @ 63 mls/hr TPN CONT IV Last administered on 11/30/16 21:31; Start 11/30/16 at 22:00; Stop 12/01/16 at 21:21; Status DC Furosemide 40 mg 40 mg 1X ONCE IVP Last administered on 11/30/16 15:02; Start 11/30/16 at 15:00; Stop 11/30/16 at 15:01; Status DC Iron Sucrose/ Sodium Chloride (Venofer/Iv Sodium Chloride 0.9% 250ml) 275 ml @ 78.571 mls/ hr 1X ONCE IV Last administered on 12/01/16 09:58; Start at 09:00; Stop 12/01/16 at 12:29; Status DC Insulin Detemir (Levemir) 12 units QHS SQ Last administered on 12/03/16 21:28 ; Start 12/01/16 at 21:00; Stop 12/04/16 at 16:49; Status DC Info 1 each 1 each PRN DAILY PRN MC SEE COMMENTS Last administered on 12:18; Start 12/01/16 at 10:45; Stop 12/05/16 at 09:17; Status DC Potassium Acetate/ Potassium Phosphate/ Magnesium Sulfate/ Calcium Gluconate/ Multivitamins/ Chromium/Copper/ Manganese/Seleni/ Zn/Insulin Human Regular/ Total Parenteral Nutrition/Amino Acids/Dextrose/ Fat Emulsion Intravenous ( Potassium Phosphate/Calcium Gluconate/ Infuvite Asim... 1,512 ml @ 64.708 mls/ hr TPN CONT IV Last administered on 12/01/16 22:20; Start 12/01/16 at 22:00; Stop 12/02/16 at 21:21; Status DC Pantoprazole Sodium (Protonix Vial) 40 mg DAILYAC IVP Last administered on 12/04 10:37; Start 12/02/16 at 07:30; Stop 12/05/16 at 06:27; Status DC Acetaminophen 650 mg 650 mg 1X PRN PRN PO PRN prior to blood transfusion; Start 12/02/16 at 06:30; Stop 12/03/16 at 06:29; Status DC Potassium Acetate/ Potassium Phosphate/ Magnesium Sulfate/ Calcium Gluconate/ Multivitamins/ Chromium/Copper/ Manganese/Seleni/ Zn/Insulin Human Regular/ Total Parenteral Nutrition/Amino Acids/Dextrose/ Fat Emulsion Intravenous ( Potassium Phosphate/Calcium Gluconate/ Infuvite Asim... 1,512 ml @ 64.708 mls/ hr TPN CONT IV Last administered on 12/02/16 21:46; Start 12/02/16 at 22:00; Stop 12/03/16 at 21:21; Status DC Furosemide (Lasix) 40 mg DAILY IVP Last administered on 12/03/16 08:47; Start 12/02/16 at 12:30; Stop 12/04/16 at 06:30; Status DC Acetaminophen (Acetaminophen Supp) 650 mg PRN Q6HRS PRN [facility] MILD PAIN / TEMP; Start 12/02/16 at 13:30; Stop 12/02/16 at 13:36; Status DC Acetaminophen 650 mg 650 mg PRN Q6HRS PRN [facility] MILD PAIN / TEMP; Start 12/02/16 at 13:45 Potassium Acetate/ Potassium Phosphate/ Magnesium Sulfate/ Calcium Gluconate/ Multivitamins/ Chromium/Copper/ Manganese/Seleni/ Zn/Insulin Human Regular/ Total Parenteral Nutrition/Amino Acids/Dextrose/ Fat Emulsion Intravenous ( Potassium Phosphate/Calcium Gluconate/ Infuvite Asim... 1,512 ml @ 63 mls/hr TPN CONT IV Last administered on 12/03/16 21:05; Start 12/03/16 at 22:00; Stop 12/04/16 at 21:59; Status DC Fentanyl Citrate (Fentanyl 2ml Vial) 25 mcg PRN Q30MIN PRN IV SED; Start at 06:29; Stop 12/05/16 at 09:17; Status DC Ondansetron HCl (Zofran) 4 mg PRN Q6HRS PRN IV NAUSEA/VOMITING; Start 12/04/16 at 06:30 Furosemide (Lasix) 40 mg DAILY IVP Last administered on 12/06/16t 10:20; Start 12/04/16 at 06:30; Stop 12/06/16 at 15:12; Status DC Lidocaine HCl 20 ml 20 ml STK-MED ONCE .ROUTE ; Start 12/04/16 at 07:02; Stop at 07:03; Status DC Heparin Sodium/ Sodium Chloride 1,500 ml @ As Directed STK-MED ONCE .ROUTE ; Start 12/04/16 at 07:02; Stop 12/04/16 at 07:03; Status DC Iodixanol (Visipaque 320) 100 ml STK-MED ONCE .ROUTE ; Start 12/04/16 at 07:02; Stop 12/04/16 at 07:03; Status DC Nitroglycerin (Nitroglycerin) 200 mcg STK-MED ONCE .ROUTE ; Start 12/04/16 at 07 :05; Stop 12/04/16 at 07:06; Status DC Verapamil HCl (Verapamil) 5 mg STK-MED ONCE .ROUTE ; Start 12/04/16 at 07:05; Stop 12/04/16 at 07:06; Status DC Midazolam HCl (Versed) 2 mg STK-MED ONCE .ROUTE ; Start 12/04/16 at 07:05; Stop 12/04/16 at 07:06; Status DC Fentanyl Citrate (Fentanyl 2ml Vial) 100 mcg STK-MED ONCE .ROUTE ; Start at 07:05; Stop 12/04/16 at 07:06; Status DC Heparin Sodium (Porcine) 10,000 unit STK-MED ONCE .ROUTE ; Start 12/04/16 at 07: 05; Stop 12/04/16 at 07:06; Status DC Nitroglycerin (Nitroglycerin) 200 mcg STK-MED ONCE .ROUTE ; Start 12/04/16 at 07 :17; Stop 12/04/16 at 07:18; Status DC Verapamil HCl (Verapamil) 5 mg STK-MED ONCE .ROUTE ; Start 12/04/16 at 07:18; Stop 12/04/16 at 07:19; Status DC Nitroglycerin (Nitroglycerin) 200 mcg 1X ONCE IART Last administered on 07:42; Start 12/04/16 at 07:45; Stop 12/04/16 at 07:46; Status DC Verapamil HCl (Verapamil) 2.5 mg 1X ONCE IART Last administered on 12/04/16 07:43; Start 12/04/16 at 07:45; Stop 12/04/16 at 07:46; Status DC Heparin Sodium/ Sodium Chloride 1,000 unit 1X ONCE IART Last administered on 07:43; Start 12/04/16 at 07:45; Stop 12/04/16 at 07:46; Status DC Midazolam HCl (Versed) 0.5 mg 1X ONCE IV Last administered on 12/04/16 07:44 ; Start 12/04/16 at 07:45; Stop 12/04/16 at 07:46; Status DC Fentanyl Citrate (Fentanyl 2ml Vial) 25 mcg 1X ONCE IV Last administered on 07:44; Start 12/04/16 at 07:45; Stop 12/04/16 at 07:46; Status DC Iodixanol (Visipaque 320) 100 ml 1X ONCE IART Last administered on 12/04/16 07:42; Start 12/04/16 at 07:45; Stop 12/04/16 at 07:46; Status DC Lidocaine HCl 20 ml 1X ONCE IJ Last administered on 12/04/16 07:43; Start at 07:45; Stop 12/04/16 at 07:46; Status DC Info 1 each 1 each PRN DAILY PRN MC SEE COMMENTS; Start 12/04/16 at 07:45; Stop 12/06/16 at 07:44; Status DC Potassium Acetate/ Potassium Phosphate/ Magnesium Sulfate/ Calcium Gluconate/ Multivitamins/ Chromium/Copper/ Manganese/Seleni/ Zn/Insulin Human Regular/ Total Parenteral Nutrition/Amino Acids/Dextrose/ Fat Emulsion Intravenous ( Potassium Phosphate/Calcium Gluconate/ Infuvite Asim... 1,512 ml @ 63 mls/hr TPN CONT IV Last administered on 12/04/16 22:47; Start 12/04/16 at 22:00; Stop 12/05/16 at 21:59; Status DC Lidocaine HCl 20 ml 20 ml STK-MED ONCE .ROUTE ; Start 12/04/16 at 12:59; Stop at 13:00; Status DC Heparin Sodium/ Sodium Chloride 1,000 ml @ As Directed STK-MED ONCE .ROUTE ; Start 12/04/16 at 12:59; Stop 12/05/16 at 08:51; Status DC Iodixanol (Visipaque 320) 100 ml STK-MED ONCE .ROUTE ; Start 12/04/16 at 12:59; Stop 12/04/16 at 13:00; Status DC Insulin Detemir (Levemir) 25 units QHS SQ ; Start 12/04/16 at 21:00; Stop at 21:00; Status DC Insulin Detemir (Levemir) 20 units QHS SQ Last administered on 12/12/16 20:56; Start 12/04/16 at 21:00 Morphine Sulfate 2 mg PRN Q2HR PRN IV PAIN Last administered on 12/12/16 04:03 ; Start 12/04/16 at 19:15 Morphine Sulfate 4 mg PRN Q2HR PRN IV PAIN; Start 12/04/16 at 19:15; Stop 12/05 at 09:17; Status DC Pantoprazole Sodium (Protonix Vial) 40 mg DAILYAC IVP Last administered on 09:54; Start 12/05/16 at 06:27 Verapamil HCl (Verapamil) 5 mg STK-MED ONCE .ROUTE ; Start 12/04/16 at 07:30; Stop 12/05/16 at 08:38; Status DC Enoxaparin Sodium (Lovenox Per Pharmacy Treatment Dosing) 1 each PRN DAILY PRN MC SEE COMMENTS; Start 12/05/16 at 09:00; Stop 12/09/16 at 13:25; Status DC Enoxaparin Sodium (Lovenox 100mg Syringe) 100 mg Q12HR SQ Last administered on 12/10/16 19:53; Start 12/05/16 at 09:00; Stop 12/11/16 at 08:40; Status DC Info 1 each 1 each PRN DAILY PRN MC SEE COMMENTS Last administered on 12/07/16 12:19; Start 12/05/16 at 10:15; Stop 12/12/16 at 15:42; Status DC Potassium Acetate/ Potassium Phosphate/ Magnesium Sulfate/ Calcium Gluconate/ Multivitamins/ Chromium/Copper/ Manganese/Seleni/ Zn/Insulin Human Regular/ Total Parenteral Nutrition/Amino Acids/Dextrose/ Fat Emulsion Intravenous ( Potassium Phosphate/Calcium Gluconate/ Infuvite Asim... 1,512 ml @ 63 mls/hr TPN CONT IV Last administered on 12/05/16 21:14; Start 12/05/16 at 22:00; Stop 12/06/16 at 21:59; Status DC Barium Sulfate (Varibar Thin Liquid Apple) 148 gm 1X ONCE PO Last administered on 12/05/16 13:56; Start 12/05/16 at 14:00; Stop 12/05/16 at 14:01 ; Status DC Dextrose 12.5 gm 12.5 gm PRN Q15MIN PRN IV SEE COMMENTS; Start 12/05/16 at 14: 19 Potassium Acetate/ Potassium Phosphate/ Magnesium Sulfate/ Calcium Gluconate/ Multivitamins/ Chromium/Copper/ Manganese/Seleni/ Zn/Insulin Human Regular/ Total Parenteral Nutrition/Amino Acids/Dextrose/ Fat Emulsion Intravenous ( Potassium Phosphate/Calcium Gluconate/ Infuvite Asim... 1,512 ml @ 63 mls/hr TPN CONT IV Last administered on 12/06/16 20:49; Start 12/06/16 at 22:00; Stop 12/07/16 at 21:59; Status DC Furosemide 20 mg 20 mg DAILY IVP Last administered on 12/08/16 08:37; Start 12/07/16 at 09:00; Stop 12/08/16 at 09:24; Status DC Potassium Acetate/ Potassium Phosphate/ Magnesium Sulfate/ Calcium Gluconate/ Multivitamins/ Chromium/Copper/ Manganese/Seleni/ Zn/Insulin Human Regular/ Total Parenteral Nutrition/Amino Acids/Dextrose/ Fat Emulsion Intravenous ( Potassium Phosphate/Calcium Gluconate/ Infuvite Asim... 1,512 ml @ 63 mls/hr TPN CONT IV Last administered on 12/07/16 20:23; Start 12/07/16 at 22:00; Stop 12/08/16 at 21:59; Status DC Lorazepam 0.5 mg 0.5 mg PRN Q6HRS PRN IV ANXIETY / AGITATION Last administered on 12/13/16 01:51; Start 12/07/16 at 16:30 Dextrose 1,000 ml @ 100 mls/hr Q10H IV Last administered on 12/08/16 09:59; Start 12/08/16 at 09:30; Stop 12/08/16 at 19:29; Status DC Potassium Acetate/ Potassium Phosphate/ Magnesium Sulfate/ Calcium Gluconate/ Multivitamins/ Chromium/Copper/ Manganese/Seleni/ Zn/Insulin Human Regular/ Total Parenteral Nutrition/Amino Acids/Dextrose/ Fat Emulsion Intravenous ( Potassium Phosphate/Calcium Gluconate/ Infuvite Asim... 2,400 ml @ 100 mls/hr TPN CONT IV Last administered on 12/08/16 21:20; Start 12/08/16 at 22:00; Stop 12/09/16 at 21:59; Status DC Temazepam 15 mg 15 mg PRN QHS PRN PO INSOMNIA; Start 12/09/16 at 11:30 Potassium Acetate/ Potassium Phosphate/ Magnesium Sulfate/ Calcium Gluconate/ Multivitamins/ Chromium/Copper/ Manganese/Seleni/ Zn/Insulin Human Regular/ Total Parenteral Nutrition/Amino Acids/Dextrose/ Fat Emulsion Intravenous ( Potassium Phosphate/Calcium Gluconate/ Infuvite Asim... 2,400 ml @ 100 mls/hr TPN CONT IV Last administered on 12/09/16 21:27; Start 12/09/16 at 22:00; Stop 12/10/16 at 21:59; Status DC Lorazepam 1 mg 1 mg 1X ONCE IV Last administered on 12/09/16 21:29; Start 12/09 at 21:30; Stop 12/09/16 at 21:31; Status DC Potassium Acetate/ Potassium Phosphate/ Magnesium Sulfate/ Calcium Gluconate/ Multivitamins/ Chromium/Copper/ Manganese/Seleni/ Zn/Insulin Human Regular/ Total Parenteral Nutrition/Amino Acids/Dextrose/ Fat Emulsion Intravenous ( Potassium Phosphate/Calcium Gluconate/ Infuvite Asim... 2,400 ml @ 100 mls/hr TPN CONT IV Last administered on 12/10/16 22:08; Start 12/10/16 at 22:00; Stop 12/11/16 at 21:59; Status DC Lidocaine/Sodium Bicarbonate (Buffered Lidocaine 1%) 20 ml STK-MED ONCE IJ ; Start 12/10/16 at 14:30; Stop 12/10/16 at 14:31; Status DC Naloxone HCl (Narcan) 0.4 mg STK-MED ONCE .ROUTE ; Start 12/10/16 at 14:45; Stop 12/10/16 at 14:46; Status DC Flumazenil (Romazicon) 0.5 mg STK-MED ONCE IV ; Start 12/10/16 at 14:45; Stop 12/10/16 at 14:46; Status DC Fentanyl Citrate (Fentanyl 2ml Vial) 100 mcg STK-MED ONCE .ROUTE ; Start at 14:45; Stop 12/10/16 at 14:46; Status DC Midazolam HCl (Versed) 2 mg STK-MED ONCE .ROUTE ; Start 12/10/16 at 14:45; Stop 12/10/16 at 14:46; Status DC Lidocaine/Sodium Bicarbonate (Buffered Lidocaine 1%) 20 ml 1X ONCE IJ Last administered on 12/10/16 15:15; Start 12/10/16 at 15:15; Stop 12/10/16 at 15:16; Status DC Midazolam HCl (Versed) 2 mg 1X ONCE IV Last administered on 12/10/16 15:20; Start 12/10/16 at 15:15; Stop 12/10/16 at 15:16; Status DC Fentanyl Citrate 100 mcg 100 mcg 1X ONCE IV Last administered on 12/10/16 15: 20; Start 12/10/16 at 15:15; Stop 12/10/16 at 15:16; Status DC Potassium Acetate/ Potassium Phosphate/ Magnesium Sulfate/ Calcium Gluconate/ Multivitamins/ Chromium/Copper/ Manganese/Seleni/ Zn/Insulin Human Regular/ Total Parenteral Nutrition/Amino Acids/Dextrose/ Fat Emulsion Intravenous ( Potassium Phosphate/Calcium Gluconate/ Infuvite Asim... 2,400 ml @ 100 mls/hr TPN CONT IV Last administered on 12/11/16 23:37; Start 12/11/16 at 22:00; Stop 12/12/16 at 21:59; Status DC Ondansetron HCl (Zofran) 4 mg PRN Q6HRS PRN IV NAUSEA/VOMITING; Start 12/12/16 at 07:00; Stop 12/12/16 at 07:00; Status DC Fentanyl Citrate (Fentanyl 2ml Vial) 25 mcg PRN Q5MIN PRN IV MILD PAIN; Start 12/12/16 at 07:00; Stop 12/12/16 at 07:00; Status DC Fentanyl Citrate (Fentanyl 2ml Vial) 50 mcg PRN Q5MIN PRN IV MODERATE PAIN; Start 12/12/16 at 07:00; Stop 12/12/16 at 07:00; Status DC Morphine Sulfate 1 mg 1 mg PRN Q10MIN PRN IV SEVERE PAIN; Start 12/12/16 at 07: 00; Stop 12/12/16 at 07:00; Status DC Lactated Ringer's (Iv Lactated Ringers) 1,000 ml @ 30 mls/hr Q24H IV ; Start at 07:00; Stop 12/12/16 at 07:00; Status DC Lidocaine HCl 2 ml PRN 1X PRN ID PRIOR TO IV START; Start 12/12/16 at 07:00; Stop 12/12/16 at 07:00; Status DC Hydromorphone HCl (Dilaudid) 0.5 mg PRN Q10MIN PRN IV SEV PAIN, Second choice; Start 12/12/16 at 07:00; Stop 12/12/16 at 07:00; Status DC Prochlorperazine Edisylate 5 mg 5 mg PACU PRN PRN IV NAUSEA, MRX1; Start at 07:00; Stop 12/12/16 at 07:00; Status DC Potassium Acetate 35 meq/Potassium Phosphate 5 mmol/ Magnesium Sulfate 15 meq/ Calcium Gluconate 5 meq/ Multivitamins 10 ml/Chromium/ Copper/Manganese/ Seleni/ Zn 1 ml/ Insulin Human Regular 10 unit/ Total Parenteral Nutrition/Amino Acids/ Dextrose/ Fat Emulsion Intravenous 1,920 ml @ 80 mls/hr TPN CONT IV Last administered on 12/12/16t 23:50; Start 12/12/16 at 22:00; Stop 12/13/16 at 21:59 Potassium Acetate/ Potassium Phosphate/ Magnesium Sulfate/ Calcium Gluconate/ Multivitamins/ Chromium/Copper/ Manganese/Seleni/ Zn/Insulin Human Regular/ Total Parenteral Nutrition/Amino Acids/Dextrose/ Fat Emulsion Intravenous ( Potassium Phosphate/Calcium Gluconate/ Infuvite Asim... 1,920 ml @ 80 mls/hr TPN CONT IV ; Start 12/13/16 at 22:00; Stop 12/14/16 at 21:59 Vitals/I & O Vital Sign - Last 24 Hours 12/12/16 12/12/16 12/12/16 12/12/16 13:22 14:55 17:04 17:06 Temp 97.6 97.6 Pulse 96 96 Resp 19 B/P 133/70 133/70 Pulse Ox 94 91 O2 Delivery Nasal Cannula Nasal Cannula Nasal Cannula O2 Flow Rate 1.0 1.0 1.0 12/12/16 12/12/16 12/12/16 12/12/16 19:16 19:56 20:00 23:00 Temp 98.3 98.3 Pulse 95 96 Resp 18 B/P 125/65 129/72 Pulse Ox 96 O2 Delivery Nasal Cannula Nasal Cannula Nasal Cannula O2 Flow Rate 1.0 1.0 1.0 12/12/16 12/13/16 12/13/16 12/13/16 23:02 03:29 04:00 06:11 Temp 98.1 97.6 98.1 97.6 Pulse 96 100 100 Resp 18 16 B/P 129/72 139/84 139/84 Pulse Ox 94 100 94 O2 Delivery Nasal Cannula Nasal Cannula Nasal Cannula O2 Flow Rate 1.0 1.0 1.0 12/13/16 12/13/16 12/13/16 12/13/16 07:43 09:55 10:02 11:30 Temp 97.9 98.0 97.9 98.0 Pulse 94 94 79 Resp 16 16 B/P 139/71 139/71 135/68 Pulse Ox 96 95 95 O2 Delivery Nasal Cannula Nasal Cannula Nasal Cannula O2 Flow Rate 1.0 1.0 2.0 Intake and Output 12/12/16 12/12/16 12/13/16 15:00 23:00 07:00 Intake Total 1171.8 ml Output Total 1010 ml 1125 ml Balance 161.8 ml -1125 ml EVELYNE ANTONIO MD Dec 13, 2016 11:50
[2016-12-13 14:32] VITALS: BP 129/77
--- NOTE | 2016-12-13 16:26 | PDOC ---
Provider Note Provider Note RENAL F/U : KE Doing Ok No new issues reported,. VSS Afebrile. RRR Non labored resp Labs stable CPM. PHAN DEMPSEY MD Dec 13, 2016 16:26
[2016-12-13 19:00] VITALS: BP 145/77
[2016-12-13] MEDS: INSULIN DETEMIR 300 UNITS/3 ML INSULN.PEN. SQ SCH (21:28)
[2016-12-13] MEDS ORDERED: DEXTROSE 70% IV SCH ×10 (22:00)
[2016-12-13] MEDS ORDERED: TOTAL PARENTERAL NUTRITION IV SCH ×10 (22:00)
[2016-12-13] MEDS ORDERED: [UNRECOGNIZED DRUG - OTHER] IV SCH ×10 (22:00)
[2016-12-13] MEDS ORDERED: AMINO ACIDS IV SCH ×10 (22:00)
[2016-12-13 23:00] VITALS: BP 131/79
[2016-12-14] VITALS (16 sets, daily range): BP systolic 113–147; BP diastolic 62–83
[2016-12-14] MEDS: LORAZEPAM 2 MG/ML VIAL. IV PRN (01:49)
[2016-12-14] MEDS: METOPROLOL TARTRATE 5 MG/5 ML VIAL. IVP SCH ×4 (03:41→22:13)
[2016-12-14] MEDS: INSULIN ASPART 300 UNITS/3 ML INSULN.PEN SQ SCH ×4 (05:55→23:36)
[2016-12-14 06:22] LABS: BASO # 0.1 x10^3/uL (0.0-0.2); BASO % 1 % (0-3); EOS % 11 % (0-3); HEMATOCRIT 28.1 % (39.0-53.0); HEMOGLOBIN 9.2 g/dL (13.0-17.5); LYMPH # 1.4 x10^3/uL (1.0-4.8); LYMPH % 14 % (24-48); MEAN CORPUSCULAR HEMOGLOBIN 30 pg (25-35); MEAN CORPUSCULAR HGB CONC 33 g/dL (31-37); MEAN CORPUSCULAR VOLUME 93 fL (79-100); MONO % 14 % (0-9); NEUT % 61 % (31-73); PLATELET COUNT 333 x10^3/uL (140-400); RED BLOOD COUNT 3.04 x10^6/uL (4.30-5.70); WHITE BLOOD COUNT 10.1 x10^3/uL (4.0-11.0)
[2016-12-14 06:24] LABS: CALCIUM 9.1 mg/dL (8.5-10.1); CREATININE 1.7 mg/dL (0.7-1.3); GFR 39.9; POTASSIUM 4.8 mmol/L (3.5-5.1)
[2016-12-14] MEDS: IPRATROPIUM BROMIDE 0.5 MG/2.5 ML NEBU. NEB SCH ×4 (08:20→21:00)
[2016-12-14] MEDS ORDERED: DEXTROSE 50% 25 GM / 50ML DISP.SYRIN. IV PRN (09:00)
--- NOTE | 2016-12-14 09:27 | PDOC ---
PULMONARY PROGRESS NOTES Subjective soa better, is on 02, weak, no cough, no pain chest tube removed 12/13. Vitals Vital Signs Date Time Temp Pulse Resp B/P Pulse Ox O2 Delivery O2 Flow Rate FiO2 12/14/16 08:21 100 Nasal Cannula 2.0 12/14/16 07:53 98.0 102 20 124/75 98.0 Comments ros as mentioned as above. discussed w rn, other sys otherwise neg ROS: No Nausea, No Abdominal Pain General: Alert, No acute distress HEENT: Other (nc at, perrl, nose clear, shallow oropharynx. neck, + jvd, no thyromegaly, no lap) Lungs: Crackles, Other Cardiovascular: S1, S2 Abdomen: Soft, Non-tender, Other (no mass) Neuro Exam: Alert Extremities: Other (2=edema) Skin: Warm Labs Laboratory Tests Test 12/12/16 12:01 12/12/16 17:02 12/13/16 00:17 12/13/16 06:40 Glucose (Fingerstick) 203mg/dL (70-99) 171mg/dL (70-99) 184mg/dL (70-99) White Blood Count 11.0x10^3/uL (4.0-11.0) Red Blood Count 2.99x10^6/uL (4.30-5.70) Hemoglobin 9.3g/dL (13.0-17.5) Hematocrit 27.7% (39.0-53.0) Mean Corpuscular Volume 93fL (79-100) Mean Corpuscular Hemoglobin 31pg (25-35) Mean Corpuscular Hemoglobin Concent 34g/dL (31-37) Red Cell Distribution Width 16.3% (11.5-14.5) Platelet Count 351x10^3/uL (140-400) Neutrophils (%) (Auto) 65% (31-73) Lymphocytes (%) (Auto) 11% (24-48) Monocytes (%) (Auto) 13% (0-9) Eosinophils (%) (Auto) 10% (0-3) Basophils (%) (Auto) 1% (0-3) Neutrophils # (Auto) 7.2x10^3uL (1.8-7.7) Lymphocytes # (Auto) 1.2x10^3/uL (1.0-4.8) Monocytes # (Auto) 1.4x10^3/uL (0.0-1.1) Eosinophils # (Auto) 1.1x10^3/uL (0.0-0.7) Basophils # (Auto) 0.1x10^3/uL (0.0-0.2) Segmented Neutrophils % 71% (35-66) Band Neutrophils % 3% (0-9) Lymphocytes % 11% (24-48) Monocytes % 7% (0-10) Eosinophils % 7% (0-5) Myelocytes % 1% (0-0) Platelet Estimate Increased (ADEQUATE) Platelet Clumps, EDTA Present Poikilocytosis Present Sodium Level 137mmol/L (136-145) Potassium Level 4.8mmol/L (3.5-5.1) Chloride Level 104mmol/L (98-107) Carbon Dioxide Level 23mmol/L (21-32) Anion Gap 10 (6-14) Blood Urea Nitrogen 53mg/dL (8-26) Creatinine 1.6mg/dL (0.7-1.3) Estimated GFR (Cockcroft-Gault) 42.8 Glucose Level 198mg/dL (70-99) Calcium Level 8.9mg/dL (8.5-10.1) Test 12/13/16 10:56 12/13/16 17:44 12/13/16 23:47 12/14/16 05:30 Glucose (Fingerstick) 215mg/dL (70-99) 209mg/dL (70-99) 177mg/dL (70-99) White Blood Count 10.1x10^3/uL (4.0-11.0) Red Blood Count 3.04x10^6/uL (4.30-5.70) Hemoglobin 9.2g/dL (13.0-17.5) Hematocrit 28.1% (39.0-53.0) Mean Corpuscular Volume 93fL (79-100) Mean Corpuscular Hemoglobin 30pg (25-35) Mean Corpuscular Hemoglobin Concent 33g/dL (31-37) Red Cell Distribution Width 16.0% (11.5-14.5) Platelet Count 333x10^3/uL (140-400) Neutrophils (%) (Auto) 61% (31-73) Lymphocytes (%) (Auto) 14% (24-48) Monocytes (%) (Auto) 14% (0-9) Eosinophils (%) (Auto) 11% (0-3) Basophils (%) (Auto) 1% (0-3) Neutrophils # (Auto) 6.2x10^3uL (1.8-7.7) Lymphocytes # (Auto) 1.4x10^3/uL (1.0-4.8) Monocytes # (Auto) 1.4x10^3/uL (0.0-1.1) Eosinophils # (Auto) 1.1x10^3/uL (0.0-0.7) Basophils # (Auto) 0.1x10^3/uL (0.0-0.2) Sodium Level 137mmol/L (136-145) Potassium Level 4.8mmol/L (3.5-5.1) Chloride Level 104mmol/L (98-107) Carbon Dioxide Level 23mmol/L (21-32) Anion Gap 10 (6-14) Blood Urea Nitrogen 52mg/dL (8-26) Creatinine 1.7mg/dL (0.7-1.3) Estimated GFR (Cockcroft-Gault) 39.9 Glucose Level 222mg/dL (70-99) Calcium Level 9.1mg/dL (8.5-10.1) Test 12/14/16 05:47 Glucose (Fingerstick) 206mg/dL (70-99) Laboratory Tests Test 12/13/16 10:56 12/13/16 17:44 12/13/16 23:47 12/14/16 05:30 Glucose (Fingerstick) 215mg/dL (70-99) 209mg/dL (70-99) 177mg/dL (70-99) White Blood Count 10.1x10^3/uL (4.0-11.0) Red Blood Count 3.04x10^6/uL (4.30-5.70) Hemoglobin 9.2g/dL (13.0-17.5) Hematocrit 28.1% (39.0-53.0) Mean Corpuscular Volume 93fL (79-100) Mean Corpuscular Hemoglobin 30pg (25-35) Mean Corpuscular Hemoglobin Concent 33g/dL (31-37) Red Cell Distribution Width 16.0% (11.5-14.5) Platelet Count 333x10^3/uL (140-400) Neutrophils (%) (Auto) 61% (31-73) Lymphocytes (%) (Auto) 14% (24-48) Monocytes (%) (Auto) 14% (0-9) Eosinophils (%) (Auto) 11% (0-3) Basophils (%) (Auto) 1% (0-3) Neutrophils # (Auto) 6.2x10^3uL (1.8-7.7) Lymphocytes # (Auto) 1.4x10^3/uL (1.0-4.8) Monocytes # (Auto) 1.4x10^3/uL (0.0-1.1) Eosinophils # (Auto) 1.1x10^3/uL (0.0-0.7) Basophils # (Auto) 0.1x10^3/uL (0.0-0.2) Sodium Level 137mmol/L (136-145) Potassium Level 4.8mmol/L (3.5-5.1) Chloride Level 104mmol/L (98-107) Carbon Dioxide Level 23mmol/L (21-32) Anion Gap 10 (6-14) Blood Urea Nitrogen 52mg/dL (8-26) Creatinine 1.7mg/dL (0.7-1.3) Estimated GFR (Cockcroft-Gault) 39.9 Glucose Level 222mg/dL (70-99) Calcium Level 9.1mg/dL (8.5-10.1) Test 12/14/16 05:47 Glucose (Fingerstick) 206mg/dL (70-99) Comments cxr reviewed, 12/13 resolved right effusion, no ptx Impression . 1. Acute respiratory failure secondary to [id number] cardiopulmonary arrest. 2. Hyperlipidemia. 3. Diabetes. 4. Positive venous Doppler/ high prob V/Q, popliteal nonocclusive thrombus. 5. Metabolic acidosis sec to code, improved. 6. PE, Bilateral DVT/ PE- S/p IVC. 7. Ischemia CM 35-40%, cath no significant lesion 8. Acute kidney injury 9. anemia, 10. wheezing, acute bronchospasm, resolved 11. right effusion, bloody,doubt hemothorax, improved post thoracentesis, suspect related to pulmonary infarct Plan . s/p right thoracentesis/ chest tube to suction.(exudate, gram stain neg) monitor output In the setting of ongoing anemia and recent hemorrhagic effusion , I would recommend no further lovenox. Pt has IVC filter cath report noted pt ot resp status is compensated follow results of pleural fluid cytology d/w rn pt ASHLEY DIAZ MD Dec 14, 2016 09:27
[2016-12-14] MEDS: PANTOPRAZOLE IV PUSH 40 MG VIAL. IVP SCH (10:04)
[2016-12-14] MEDS: ASPIRIN 300 MG SUPP.RECT PR SCH (10:07)
--- NOTE | 2016-12-14 10:17 | RAD ---
Portable AP upright view CXR: Clinical indications: Effusion. Follow-up study. Comparison: December 13, 2016. Findings: Again seen is right midlung zone round radiodensity which is partially obscured by overlying tubing. No new lung infiltrate or pleural effusion or pulmonary edema or lung mass or pneumothorax is seen. The heart size, pulmonary vasculature, mediastinum and both rudy are unremarkable. Right IJ line is unchanged in position. Impression: No new radiographic abnormality is seen.
[2016-12-14] MEDS: TPN PER PHARMACY MC PRN (11:12)
--- NOTE | 2016-12-14 12:24 | RAD ---
Clinical indications: Change in level of consciousness. Code stroke.. Technique: Noncontrast axial cross sectional scanning of the head was performed. PQRS Compliance Statement: One or more of the following individualized dose reduction techniques were utilized for this examination: 1. Automated exposure control 2. Adjustment of the mA and/or kV according to patient size 3. Use of iterative reconstruction technique Comparison: November 24, 2016. Findings: There is a new finding of a large area of wedge-shaped hypodensity involving the right frontal lobe. There is a hyperdense intraparenchymal hemorrhage within it. The hemorrhage portion measures 22 mm. The sulci are effaced in this area but no midline shift is evident. No mass effect upon the adjacent right lateral ventricle is seen. No hydrocephalus is seen. No skull fracture or pneumocephalus is seen. No opacification of the mastoid sinuses or the paranasal sinuses is seen. The maxillary sinuses are not completely seen in this study. 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 Note-this critical result was called to Dr. Squires at 12:18 PM on December 14, 2016.
--- NOTE | 2016-12-14 13:00 | PDOC ---
PROGRESS NOTES Chief Complaint Chief Complaint S/P VT/VF Cardiac arrest Acute respiratory failure possibly 2/2 PE; extubated 11/27 DVT bilateral LEs - IVC filter placed 11/29 Acute blood loss anemia s/p transfusion dysphagia Silent Aspiration; failed swallow study HFrEF [place] vs. CKD DM II bactremia with Peptostreptococcus sp. 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 very realistic I did introduce going not aggressive, comfort care only They will talk and discuss with pt and other fam members Pt was on ASA [place] and Lovenox 90 BID for DVT and PE - recommended by heme onc to be on low dose AC for life BUt pt seems to be having bleeding issues everywhere (brain, urine, hemothorax) Tentatively had plans for pEG thursday by GI PLAn: Transfer to ICU STop all blood thinners Neuro and neurosx consults Freq neuro checks Involve palliative Dw 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 Marisol CC 34 mins Pt able to recognize me though and his family, seems ok Vitals Vitals Vital Signs Date Time Temp Pulse Resp B/P Pulse Ox O2 Delivery O2 Flow Rate FiO2 12/14/16 11:44 98 Nasal Cannula 2.0 12/14/16 10:22 97.8 105 16 132/73 97.8 Physical Exam General: Alert, Oriented X3, Other (very fatigued) Heart: Normal S1 Lungs: Crackles, Other Abdomen: Soft, No tenderness Extremities: Other (1+ edema all extremities) Skin: No rashes, Other (no bruising) Labs LABS Laboratory Tests Test 12/13/16 17:44 12/13/16 23:47 12/14/16 05:30 12/14/16 05:47 Glucose (Fingerstick) 209mg/dL (70-99) 177mg/dL (70-99) 206mg/dL (70-99) White Blood Count 10.1x10^3/uL (4.0-11.0) Red Blood Count 3.04x10^6/uL (4.30-5.70) Hemoglobin 9.2g/dL (13.0-17.5) Hematocrit 28.1% (39.0-53.0) Mean Corpuscular Volume 93fL (79-100) Mean Corpuscular Hemoglobin 30pg (25-35) Mean Corpuscular Hemoglobin Concent 33g/dL (31-37) Red Cell Distribution Width 16.0% (11.5-14.5) Platelet Count 333x10^3/uL (140-400) Neutrophils (%) (Auto) 61% (31-73) Lymphocytes (%) (Auto) 14% (24-48) Monocytes (%) (Auto) 14% (0-9) Eosinophils (%) (Auto) 11% (0-3) Basophils (%) (Auto) 1% (0-3) Neutrophils # (Auto) 6.2x10^3uL (1.8-7.7) Lymphocytes # (Auto) 1.4x10^3/uL (1.0-4.8) Monocytes # (Auto) 1.4x10^3/uL (0.0-1.1) Eosinophils # (Auto) 1.1x10^3/uL (0.0-0.7) Basophils # (Auto) 0.1x10^3/uL (0.0-0.2) Sodium Level 137mmol/L (136-145) Potassium Level 4.8mmol/L (3.5-5.1) Chloride Level 104mmol/L (98-107) Carbon Dioxide Level 23mmol/L (21-32) Anion Gap 10 (6-14) Blood Urea Nitrogen 52mg/dL (8-26) Creatinine 1.7mg/dL (0.7-1.3) Estimated GFR (Cockcroft-Gault) 39.9 Glucose Level 222mg/dL (70-99) Calcium Level 9.1mg/dL (8.5-10.1) Test 12/14/16 11:34 Glucose (Fingerstick) 205mg/dL (70-99) Review of Systems Review of Systems unable to obtain for obvious above reasons Assessment and Plan Assessmemt and Plan Problems Medical Problems: (1) Cardiac arrest Status: Acute Problems: Comment Review of Relevant I have reviewed the following items rodolfo (where applicable) has been applied. Labs Laboratory Tests Test 12/12/16 17:02 12/13/16 00:17 12/13/16 06:40 12/13/16 10:56 Glucose (Fingerstick) 171mg/dL (70-99) 184mg/dL (70-99) 215mg/dL (70-99) White Blood Count 11.0x10^3/uL (4.0-11.0) Red Blood Count 2.99x10^6/uL (4.30-5.70) Hemoglobin 9.3g/dL (13.0-17.5) Hematocrit 27.7% (39.0-53.0) Mean Corpuscular Volume 93fL (79-100) Mean Corpuscular Hemoglobin 31pg (25-35) Mean Corpuscular Hemoglobin Concent 34g/dL (31-37) Red Cell Distribution Width 16.3% (11.5-14.5) Platelet Count 351x10^3/uL (140-400) Neutrophils (%) (Auto) 65% (31-73) Lymphocytes (%) (Auto) 11% (24-48) Monocytes (%) (Auto) 13% (0-9) Eosinophils (%) (Auto) 10% (0-3) Basophils (%) (Auto) 1% (0-3) Neutrophils # (Auto) 7.2x10^3uL (1.8-7.7) Lymphocytes # (Auto) 1.2x10^3/uL (1.0-4.8) Monocytes # (Auto) 1.4x10^3/uL (0.0-1.1) Eosinophils # (Auto) 1.1x10^3/uL (0.0-0.7) Basophils # (Auto) 0.1x10^3/uL (0.0-0.2) Segmented Neutrophils % 71% (35-66) Band Neutrophils % 3% (0-9) Lymphocytes % 11% (24-48) Monocytes % 7% (0-10) Eosinophils % 7% (0-5) Myelocytes % 1% (0-0) Platelet Estimate Increased (ADEQUATE) Platelet Clumps, EDTA Present Poikilocytosis Present Sodium Level 137mmol/L (136-145) Potassium Level 4.8mmol/L (3.5-5.1) Chloride Level 104mmol/L (98-107) Carbon Dioxide Level 23mmol/L (21-32) Anion Gap 10 (6-14) Blood Urea Nitrogen 53mg/dL (8-26) Creatinine 1.6mg/dL (0.7-1.3) Estimated GFR (Cockcroft-Gault) 42.8 Glucose Level 198mg/dL (70-99) Calcium Level 8.9mg/dL (8.5-10.1) Test 12/13/16 17:44 12/13/16 23:47 12/14/16 05:30 12/14/16 05:47 Glucose (Fingerstick) 209mg/dL (70-99) 177mg/dL (70-99) 206mg/dL (70-99) White Blood Count 10.1x10^3/uL (4.0-11.0) Red Blood Count 3.04x10^6/uL (4.30-5.70) Hemoglobin 9.2g/dL (13.0-17.5) Hematocrit 28.1% (39.0-53.0) Mean Corpuscular Volume 93fL (79-100) Mean Corpuscular Hemoglobin 30pg (25-35) Mean Corpuscular Hemoglobin Concent 33g/dL (31-37) Red Cell Distribution Width 16.0% (11.5-14.5) Platelet Count 333x10^3/uL (140-400) Neutrophils (%) (Auto) 61% (31-73) Lymphocytes (%) (Auto) 14% (24-48) Monocytes (%) (Auto) 14% (0-9) Eosinophils (%) (Auto) 11% (0-3) Basophils (%) (Auto) 1% (0-3) Neutrophils # (Auto) 6.2x10^3uL (1.8-7.7) Lymphocytes # (Auto) 1.4x10^3/uL (1.0-4.8) Monocytes # (Auto) 1.4x10^3/uL (0.0-1.1) Eosinophils # (Auto) 1.1x10^3/uL (0.0-0.7) Basophils # (Auto) 0.1x10^3/uL (0.0-0.2) Sodium Level 137mmol/L (136-145) Potassium Level 4.8mmol/L (3.5-5.1) Chloride Level 104mmol/L (98-107) Carbon Dioxide Level 23mmol/L (21-32) Anion Gap 10 (6-14) Blood Urea Nitrogen 52mg/dL (8-26) Creatinine 1.7mg/dL (0.7-1.3) Estimated GFR (Cockcroft-Gault) 39.9 Glucose Level 222mg/dL (70-99) Calcium Level 9.1mg/dL (8.5-10.1) Test 12/14/16 11:34 Glucose (Fingerstick) 205mg/dL (70-99) Laboratory Tests Test 12/13/16 17:44 12/13/16 23:47 12/14/16 05:30 12/14/16 05:47 Glucose (Fingerstick) 209mg/dL (70-99) 177mg/dL (70-99) 206mg/dL (70-99) White Blood Count 10.1x10^3/uL (4.0-11.0) Red Blood Count 3.04x10^6/uL (4.30-5.70) Hemoglobin 9.2g/dL (13.0-17.5) Hematocrit 28.1% (39.0-53.0) Mean Corpuscular Volume 93fL (79-100) Mean Corpuscular Hemoglobin 30pg (25-35) Mean Corpuscular Hemoglobin Concent 33g/dL (31-37) Red Cell Distribution Width 16.0% (11.5-14.5) Platelet Count 333x10^3/uL (140-400) Neutrophils (%) (Auto) 61% (31-73) Lymphocytes (%) (Auto) 14% (24-48) Monocytes (%) (Auto) 14% (0-9) Eosinophils (%) (Auto) 11% (0-3) Basophils (%) (Auto) 1% (0-3) Neutrophils # (Auto) 6.2x10^3uL (1.8-7.7) Lymphocytes # (Auto) 1.4x10^3/uL (1.0-4.8) Monocytes # (Auto) 1.4x10^3/uL (0.0-1.1) Eosinophils # (Auto) 1.1x10^3/uL (0.0-0.7) Basophils # (Auto) 0.1x10^3/uL (0.0-0.2) Sodium Level 137mmol/L (136-145) Potassium Level 4.8mmol/L (3.5-5.1) Chloride Level 104mmol/L (98-107) Carbon Dioxide Level 23mmol/L (21-32) Anion Gap 10 (6-14) Blood Urea Nitrogen 52mg/dL (8-26) Creatinine 1.7mg/dL (0.7-1.3) Estimated GFR (Cockcroft-Gault) 39.9 Glucose Level 222mg/dL (70-99) Calcium Level 9.1mg/dL (8.5-10.1) Test 12/14/16 11:34 Glucose (Fingerstick) 205mg/dL (70-99) Microbiology 11/28/16 Blood Culture - Final, Complete NO GROWTH AFTER 5 DAYS 12/10/16 Anaerobic/Aerobic Culture - Preliminary, Resulted 12/10/16 Anaerobic Culture Result 1 (ROSIE) - Preliminary, Resulted 12/10/16 Aerobic Culture - Final, Resulted 12/10/16 Aerobic Culture Result 1 (ROSIE) - Final, Resulted 11/24/16 Stool Culture - Final, Complete 11/24/16 Stool Culture Result 1 (ROSIE) - Final, Complete 11/24/16 Campylobacter Antigen Assay - Final, Complete 11/24/16 Campylobactor Result 1 - Final, Complete 11/24/16 Shiga Toxin Test - Final, Complete 12/09/16 Urine Culture - Final, Complete 12/09/16 Urine Culture Result 1 (ROSIE) - Final, Complete Medications Current Medications Sodium Chloride 1,000 ml @ 1,000 mls/hr Q1H IV Last administered on 11/24/16 06:50; Start 11/24/16 at 06:50; Stop 11/24/16 at 07:49; Status DC Epinephrine HCl/ Sodium Chloride (Adrenalin/Iv Sodium Chloride 0.9% 250ml) 254 ml @ 0 mls/hr CONT PRN IV SEE I/O RECORD Last administered on 11/26/16 03:05; Start 11/24/16 at 07:30; Stop 11/27/16 at 08:25; Status DC Insulin Aspart (Novolog) 0-7 UNITS TIDWMEALS SQ ; Start 11/24/16 at 08:00; Stop 11/24/16 at 15:36; Status DC Dextrose 12.5 gm 12.5 gm PRN Q15MIN PRN IV SEE COMMENTS; Start 11/24/16 at 07: 45; Stop 11/25/16 at 23:34; Status DC Sodium Chloride (Iv Sodium Chloride 0.9% 1000ml Bag) 1,000 ml @ 125 mls/hr 1X ONCE IV Last administered on 11/24/16 07:52; Start 11/24/16 at 08:00; Stop at 08:20; Status DC Vancomycin HCl (Vanco Per Pharmacy) 1 each PRN DAILY PRN MC SEE COMMENTS Last administered on 11/24/16 11:26; Start 11/24/16 at 08:15; Stop 11/24/16 at 13:06 ; Status DC Piperacillin Sod/ Tazobactam Sod 1 each 1 each PRN DAILY PRN MC SEE COMMENTS; Start 11/24/16 at 08:15; Stop 11/24/16 at 13:06; Status DC Sodium Bicarbonate 50 meq/Sodium Chloride 1,050 ml @ 125 mls/hr Q8H24M IV Last administered on 11/26/16 11:24; Start 11/24/16 at 08:30; Stop 11/26/16 at 12:41; Status DC Vancomycin HCl 2 gm/Sodium Chloride 500 ml @ 250 mls/hr ONCE ONCE IV Last administered on 11/24/16 10:15; Start 11/24/16 at 08:30; Stop 11/24/16 at 10:29 ; Status DC Piperacillin Sod/ Tazobactam Sod 4.5 gm/Sodium Chloride 100 ml @ 200 mls/hr Q6HRS IV Last administered on 11/24/16 10:10; Start 11/24/16 at 08:30; Stop at 11:15; Status DC Sodium Chloride (Iv Sodium Chloride 0.9% 1000ml Bag) 1,000 ml @ 1,000 mls/hr Q1H IV Last administered on 11/24/16 10:09; Start 11/24/16 at 08:39; Stop at 11:47; Status DC Fentanyl Citrate (Fentanyl 2ml Vial) 25 mcg PRN Q30MIN PRN IV SED Last administered on 11/30/16 17:24; Start 11/24/16 at 08:45; Stop 12/04/16 at 06:29 ; Status DC Lorazepam 1 mg 1 mg PRN Q30MIN PRN IV SEDATION Last administered on 11/25/16 12:26; Start 11/24/16 at 08:45; Stop 11/28/16 at 19:45; Status DC Fentanyl Citrate 30 ml @ 2.5 mls/hr CONT PRN PRN IV IVF Last administered on 07:40; Start 11/24/16 at 08:45; Stop 11/26/16 at 17:49; Status DC Propofol (Diprivan) 100 ml @ 0 mls/hr CONT PRN IV SEE I/O RECORD Last administered on 11/26/16 07:38; Start 11/24/16 at 08:45; Stop 11/26/16 at 17:49 ; Status DC Vecuronium [place] (Norcuron Bolus) 9 mg PRN Q30MIN PRN IV SHIVERING Last administered on 11/24/16 17:38; Start 11/24/16 at 08:45; Stop 11/26/16 at 17:49 ; Status DC Meperidine HCl (Demerol) 12.5 mg PRN Q30MIN PRN IV SHIVERING Last administered on 11/24/16 22:21; Start 11/24/16 at 08:45; Stop 11/24/16 at 22:21; Status DC Multi-Ingred Cream/Lotion/Oil/ Oint (Artificial Tears Eye Oint) 1 radha PRN Q6HRS PRN OU 0.5 INCH FOR DRY EYE; Start 11/24/16 at 08:45 Famotidine (Pepcid) 20 mg QHS IVP Last administered on 11/27/16 21:12; Start 11/24/16 at 21:00; Stop 11/28/16 at 09:46; Status DC Aspirin (Aspirin) 300 mg DAILY [place] Last administered on 12/14/16 10:07; Start at 09:00 Sodium Chloride (Normal Saline Flush) 3 ml QSHIFT PRN IV AFTER MEDS AND BLOOD DRAWS; Start 11/24/16 at 08:45 Acetaminophen (Tylenol) 650 mg Q6HRS NG ; Start 11/24/16 at 12:00; Stop at 11:59; Status DC Acetaminophen (Tylenol) 650 mg PRN Q6HRS PRN W[place] MILD PAIN / TEMP; Start at 08:45; Stop 11/25/16 at 23:35; Status DC Acetaminophen (Tylenol) 650 mg PRN Q6HRS PRN NG MILD PAIN / TEMP; Start at 08:45 Info 1 ea 1 ea DAILY PRN MC PER PROTOCOL; Start 11/26/16 at 08:45; Stop at 09:17; Status DC Insulin Human Regular 150 unit/ Sodium Chloride 151.5 ml @ 9.16 mls/hr CONT PRN IV SEE I/O RECORD Last administered on 11/24/16 10:13; Start 11/24/16 at 09 :30; Stop 11/27/16 at 08:25; Status DC Piperacillin Sod/ Tazobactam Sod 3.375 gm/Sodium Chloride 50 ml @ 100 mls/hr Q6HRS IV ; Start 11/24/16 at 18:00; Stop 11/24/16 at 18:00; Status DC Vancomycin HCl/ Sodium Chloride (Iv Sodium Chloride 0.9% 500ml Bag) 500 ml @ 250 mls/hr Q24H IV ; Start 11/25/16 at 10:00; Stop 11/25/16 at 10:00; Status DC Vancomycin HCl 1 each 1 each 1X ONCE MC ; Start 11/26/16 at 09:30; Stop at 09:30; Status DC Sodium Chloride (Iv Sodium Chloride 0.9% 1000ml Bag) 1,000 ml @ 1,000 mls/hr 1X ONCE IV Last administered on 11/24/16 11:00; Start 11/24/16 at 11:00; Stop 11/24/16 at 11:59; Status DC Insulin Detemir (Levemir) 12 units QHS SQ ; Start 11/24/16 at 21:00; Stop at 21:00; Status DC Insulin Aspart (Novolog) 10 units 1X ONCE SQ ; Start 11/24/16 at 15:30; Stop at 20:10; Status DC Insulin Aspart (Novolog) 0-7 UNITS Q4HRS SQ ; Start 11/24/16 at 16:00; Stop at 20:10; Status DC Heparin Sodium (Porcine) 8100 unit 8,100 unit 1X ONCE IV Last administered on 11/24/16 17:24; Start 11/24/16 at 17:00; Stop 11/24/16 at 17:01; Status DC Heparin Sodium/ Dextrose 500 ml @ 0 mls/hr CONT PRN IV SEE I/O RECORD Last administered on 11/28/16 02:06; Start 11/24/16 at 16:45; Stop 11/28/16 at 17:12 ; Status DC Heparin Sodium (Porcine) 3,000 unit PRN Q6HRS PRN IV FOR UFH LEVEL LESS THAN 0.2; Start 11/24/16 at 16:45; Stop 11/28/16 at 17:12; Status DC Heparin Sodium (Porcine) 1,500 unit PRN Q6HRS PRN IV FOR UFH LEVEL 0.2 - 0.29 Last administered on 11/26/16 12:08; Start 11/24/16 at 16:45; Stop 11/28/16 at 17:12; Status DC Info 1 each 1 each PRN DAILY PRN MC SEE COMMENTS Last administered on 10:03; Start 11/24/16 at 17:00; Stop 11/28/16 at 17:13; Status DC Piperacillin Sod/ Tazobactam Sod 3.375 gm/Sodium Chloride 50 ml @ 100 mls/hr Q6HRS IV Last administered on 12/07/16 05:21; Start 11/25/16 at 00:00; Stop 12/07/16 at 12:10; Status DC Vancomycin HCl/ Sodium Chloride (Iv Sodium Chloride 0.9% 250ml) 250 ml @ 250 mls/hr 1X ONCE IV ; Start 11/24/16 at 21:30; Stop 11/24/16 at 22:29; Status UNV Vancomycin HCl 1 each 1 each PRN DAILY PRN MC SEE COMMENTS Last administered on 11/25/16 03:30; Start 11/25/16 at 01:00; Stop 11/25/16 at 08:57; Status DC Vancomycin HCl/ Sodium Chloride (Iv Sodium Chloride 0.9% 500ml Bag) 500 ml @ 250 mls/hr Q24H IV ; Start 11/25/16 at 10:00; Stop 11/25/16 at 10:00; Status DC Vancomycin HCl 1 each 1X ONCE MC ; Start 11/26/16 at 09:30; Stop 11/26/16 at 09 :30; Status DC Enoxaparin Sodium (Lovenox Per Pharmacy Prophylaxis Dosing) 1 each PRN DAILY PRN MC SEE COMMENTS; Start 11/25/16 at 08:45; Status UNV Chlorhexidine Gluconate 15 ml 15 ml BID MM Last administered on 11/26/16 08:37 ; Start 11/25/16 at 21:00; Stop 11/26/16 at 17:49; Status DC Magnesium Sulfate/ Dextrose 50 ml @ 25 mls/hr PRN DAILY PRN IV for Mag < 1.7 on am labs Last administered on 11/26/16 05:29; Start 11/25/16 at 09:45; Stop 11/27/16 at 08:47; Status DC Magnesium Sulfate/ Dextrose 50 ml @ 25 mls/hr PRN DAILY PRN IV for Mag < 1.7 on am labs; Start 11/25/16 at 09:45; Status UNV Sodium Chloride 500 ml @ 0 mls/hr QID PRN IV UO< 30cc/hr over previous 6hrs Last administered on 11/25/16 10:54; Start 11/25/16 at 09:45; Stop 11/27/16 at 11:25; Status DC Magnesium Sulfate/ Dextrose (Magnesium Sulfate PREMIX 2GM) 50 ml @ 25 mls/hr 1X ONCE IV Last administered on 11/25/16 13:28; Start 11/25/16 at 12:30; Stop 11/25/16 at 14:29; Status DC Lidocaine/Sodium Bicarbonate 20 ml 20 ml STK-MED ONCE IJ ; Start 11/25/16 at 12: 35; Stop 11/25/16 at 12:36; Status DC Heparin Sodium/ Sodium Chloride 500 ml @ As Directed STK-MED ONCE .ROUTE ; Start 11/25/16 at 12:35; Stop 11/25/16 at 12:36; Status DC Lidocaine/Sodium Bicarbonate (Buffered Lidocaine 1%) 3 ml 1X ONCE IJ Last administered on 11/25/16 13:15; Start 11/25/16 at 13:15; Stop 11/25/16 at 13:16 ; Status DC Heparin Sodium/ Sodium Chloride 60 unit 1X ONCE IV Last administered on 13:16; Start 11/25/16 at 13:15; Stop 11/25/16 at 13:16; Status DC Amiodarone HCl (Cordarone) 450 mg STK-MED ONCE .ROUTE ; Start 11/25/16 at 12:00 ; Stop 11/25/16 at 14:56; Status DC Epinephrine HCl (Adrenalin) 30 mg STK-MED ONCE .ROUTE ; Start 11/25/16 at 12:00 ; Stop 11/25/16 at 14:56; Status DC Atropine Sulfate 1.5 mg STK-MED ONCE .ROUTE ; Start 11/25/16 at 12:00; Stop at 14:56; Status DC Epinephrine HCl 4 mg STK-MED ONCE .ROUTE ; Start 11/25/16 at 12:00; Stop at 14:56; Status DC Sodium Bicarbonate 150 meq 150 meq STK-MED ONCE .ROUTE ; Start 11/25/16 at 12:00 ; Stop 11/25/16 at 14:56; Status DC Midazolam HCl (Versed 100mg/ 100ml Premix) 100 ml @ 0 mls/hr CONT PRN IV SEE I/ O RECORD; Start 11/25/16 at 23:30; Stop 11/26/16 at 17:49; Status DC Insulin Aspart (Novolog) 0-7 UNITS TIDWMEALS SQ Last administered on 11/27/16 19:43; Start 11/26/16 at 08:00; Stop 11/28/16 at 01:01; Status DC Dextrose 12.5 gm PRN Q15MIN PRN IV SEE COMMENTS; Start 11/25/16 at 23:30; Stop 12/05/16 at 14:19; Status DC Acetaminophen 650 mg 650 mg PRN Q6HRS PRN [place] MILD PAIN / TEMP Last administered on 11/28/16 04:19; Start 11/25/16 at 23:30; Stop 12/02/16 at 13:29 ; Status DC Potassium Chloride 50 ml @ 50 mls/hr Q1H IV Last administered on 11/26/16 11: 23; Start 11/26/16 at 10:30; Stop 11/26/16 at 12:29; Status DC Sodium Bicarbonate/ Sterile Water 1,100 ml @ 100 mls/hr Q11H IV Last administered on 11/27/16 00:56; Start 11/26/16 at 13:00; Stop 11/27/16 at 11:25 ; Status DC Info 1 each 1 each PRN DAILY PRN MC SEE COMMENTS Last administered on 12/14/16 11:12; Start 11/26/16 at 12:45 Calcium Chloride/ Sodium Chloride (Iv Sodium Chloride 0.9% 100ml) 120 ml @ 240 mls/hr 1X ONCE IV Last administered on 11/26/16 13:22; Start 11/26/16 at 13: 15; Stop 11/26/16 at 13:44; Status DC Ondansetron HCl 4 mg 4 mg PRN Q6HRS PRN IV NAUSEA/VOMITING Last administered on 12/03/16 21:17; Start 11/26/16 at 13:45; Stop 12/04/16 at 06:30; Status DC Sodium Chloride/ Potassium Chloride/ Magnesium Sulfate/ Calcium Gluconate/ Multivitamins/ Chromium/Copper/ Manganese/Seleni/ Zn/Total Parenteral Nutrition/ Amino Acids/Dextrose/ Fat Emulsion Intravenous (Sodium Chloride/ Infuvite Adult / Multitrace-5 Conc/ Tpn - Tpn Fluid/ Trophami... 1,594.468 ml @ 66.436 m... TPN CONT IV Last administered on 11/26/16 21:27; Start 11/26/16 at 22:00; Stop 11/27/16 at 21:59; Status DC Albuterol Sulfate 2.5 mg 2.5 mg 1X ONCE NEB Last administered on 11/27/16 07: 21; Start 11/27/16 at 06:45; Stop 11/27/16 at 06:46; Status DC Magnesium Sulfate/ Dextrose 50 ml @ 25 mls/hr PRN DAILY PRN IV for Mag < 1.7 on am labs; Start 11/27/16 at 08:45 Sodium Chloride 90 meq/Potassium Chloride 50 meq/ Magnesium Sulfate 10 meq/ Calcium Gluconate 10 meq/ Multivitamins 10 ml/Chromium/ Copper/Manganese/ Seleni /Zn 1 ml/ Total Parenteral Nutrition/Amino Acids/Dextrose/ Fat Emulsion Intravenous 1,594.468 ml @ 66.436 m... TPN CONT IV ; Start 11/27/16 at 22:00; Stop 11/28/16 at 21:59; Status Cancel Potassium Chloride/ Magnesium Sulfate/ Calcium Gluconate/ Multivitamins/ Chromium/Copper/ Manganese/Seleni/ Zn/Total Parenteral Nutrition/Amino Acids/ Dextrose/ Fat Emulsion Intravenous (Infuvite Adult/ Multitrace-5 Conc/ Tpn - Tpn Fluid/ Trophamine/ Dextrose 70%-Water Iv So... 1,512 ml @ 63 mls/hr TPN CONT IV Last administered on 11/27/16 21:22; Start 11/27/16 at 22:00; Stop at 21:59; Status DC Nitroglycerin 0.4 mg 0.4 mg STK-MED ONCE SL Last administered on 11/27/16 11: 26; Start 11/27/16 at 11:16; Stop 11/27/16 at 11:17; Status DC Albumin Human (Albuminar) 100 ml @ 100 mls/hr TID IV Last administered on 11/29 08:56; Start 11/27/16 at 12:00; Stop 11/29/16 at 09:59; Status DC Sodium Bicarbonate 50 meq 1X ONCE IV Last administered on 11/27/16 13:24; Start 11/27/16 at 12:45; Stop 11/27/16 at 12:46; Status DC Hydralazine HCl (Apresoline) 10 mg PRN Q4HRS PRN IVP ELEVATED BP, SEE COMMENTS Last administered on 12/03/16 20:18; Start 11/27/16 at 12:45 Metoprolol Tartrate (Lopressor) 5 mg Q6HRS IVP Last administered on 11/27/16 15:40; Start 11/27/16 at 15:30; Stop 11/27/16 at 19:11; Status DC Metoprolol Tartrate 5 mg 5 mg Q6HRS@04,10,16,22 IVP Last administered on 10:07; Start 11/27/16 at 22:00 Nicardipine HCl/ Sodium Chloride (Cardene/Iv Sodium Chloride 0.9% 250ml) 270 ml @ 0 mls/hr CONT PRN IV SEE I/O RECORD Last administered on 11/28/16 01:13; Start 11/27/16 at 20:45; Stop 12/05/16 at 09:17; Status DC Vancomycin HCl 1 each 1 each PRN DAILY PRN MC SEE COMMENTS Last administered on 11/27/16 21:38; Start 11/27/16 at 22:00; Stop 11/28/16 at 08:30; Status DC Vancomycin HCl 2 gm/Sodium Chloride 500 ml @ 250 mls/hr 1X ONCE IV Last administered on 11/27/16 22:57; Start 11/27/16 at 22:00; Stop 11/27/16 at 23:59 ; Status DC Vancomycin HCl/ Sodium Chloride (Iv Sodium Chloride 0.9% 500ml Bag) 500 ml @ 250 mls/hr Q24H IV ; Start 11/28/16 at 22:00; Stop 11/28/16 at 22:00; Status DC Vancomycin HCl 1 each 1X ONCE MC ; Start 11/29/16 at 21:30; Stop 11/29/16 at 21 :30; Status DC Insulin Aspart (Novolog) 0-7 UNITS Q6HRS SQ Last administered on 12/14/16 05:55 ; Start 11/28/16 at 01:00; Stop 12/14/16 at 09:00; Status DC Linezolid 600 mg 600 mg BID PO ; Start 11/28/16 at 09:00; Stop 11/28/16 at 19:45 ; Status DC Pantoprazole Sodium/Sodium Chloride (Protonix Iv/Iv Sodium Chloride 0.9% 100ml) 100 ml @ 10 mls/hr Q10H PRN IV . Last administered on 12/01/16 13:01; Start 11/28/16 at 10:00; Stop 12/01/16 at 15:59; Status DC Ipratropium [place] (Atrovent) 0.5 mg RTQID NEB Last administered on 12/14/16 11:46; Start 11/28/16 at 12:00 Budesonide (Pulmicort) 0.5 mg RTBID NEB Last administered on 12/06/16 07:36; Start 11/28/16 at 20:00; Stop 12/06/16 at 18:19; Status DC Furosemide 40 mg 40 mg 1X ONCE IVP Last administered on 11/28/16 12:15; Start 11/28/16 at 12:15; Stop 11/28/16 at 12:16; Status DC Potassium Chloride/ Magnesium Sulfate/ Calcium Gluconate/ Multivitamins/ Chromium/Copper/ Manganese/Seleni/ Zn/Total Parenteral Nutrition/Amino Acids/ Dextrose/ Fat Emulsion Intravenous (Calcium Gluconate/ Infuvite Adult/ Multitrace-5 Conc/ Tpn - Tpn Fluid/ Trophami... 1,512 ml @ 63 mls/hr TPN CONT IV Last administered on 11/28/16 21:18; Start 11/28/16 at 22:00; Stop at 21:59; Status DC Lidocaine/Sodium Bicarbonate (Buffered Lidocaine 1%) 3 ml 1X ONCE IJ Last administered on 11/28/16 15:45; Start 11/28/16 at 14:45; Stop 11/28/16 at 14:46 ; Status DC Heparin Sodium/ Sodium Chloride 60 unit 1X ONCE IV Last administered on 15:45; Start 11/28/16 at 14:45; Stop 11/28/16 at 14:46; Status DC Heparin Sodium (Porcine) 2500 unit 2,500 unit 1X ONCE INT CAT Last administered on 11/28/16 15:45; Start 11/28/16 at 14:45; Stop 11/28/16 at 14:46 ; Status DC Linezolid 300 ml @ 300 mls/hr Q12HR IV Last administered on 12/01/16 21:13; Start 11/28/16 at 21:00; Stop 12/02/16 at 08:23; Status DC Potassium Chloride/ Potassium Acetate/ Magnesium Sulfate/ Calcium Gluconate/ Multivitamins/ Chromium/Copper/ Manganese/Seleni/ Zn/Total Parenteral Nutrition/ Amino Acids/Dextrose/ Fat Emulsion Intravenous (Calcium Gluconate/ Infuvite Adult/ Multitrace-5 Conc/ Tpn - Tpn Flu... 1,512 ml @ 63 mls/hr TPN CONT IV Last administered on 11/29/16 21:54; Start 11/29/16 at 22:00; Stop 11/30/16 at 21:59; Status DC Iohexol (Omnipaque 300 Mg/ml) 100 ml STK-MED ONCE .ROUTE ; Start 11/29/16 at 09: 12; Stop 11/29/16 at 09:13; Status DC Lidocaine/Sodium Bicarbonate 20 ml 20 ml STK-MED ONCE IJ ; Start 11/29/16 at 09: 12; Stop 11/29/16 at 09:13; Status DC Heparin Sodium/ Sodium Chloride 500 ml @ As Directed STK-MED ONCE .ROUTE ; Start 11/29/16 at 09:12; Stop 11/29/16 at 09:13; Status DC Lidocaine/Sodium Bicarbonate (Buffered Lidocaine 1%) 2 ml 1X ONCE IJ Last administered on 11/29/16 10:22; Start 11/29/16 at 10:00; Stop 11/29/16 at 10:15 ; Status DC Iohexol (Omnipaque 300 Mg/ml) 30 ml 1X ONCE IART Last administered on 10:22; Start 11/29/16 at 10:00; Stop 11/29/16 at 10:15; Status DC Heparin Sodium/ Sodium Chloride 1,000 unit 1X ONCE IV Last administered on 10:21; Start 11/29/16 at 10:00; Stop 11/29/16 at 10:15; Status DC Info 1 each 1 each PRN DAILY PRN MC SEE COMMENTS; Start 11/29/16 at 10:30; Stop 12/01/16 at 10:29; Status DC Heparin Sodium/ Dextrose 500 ml @ 0 mls/hr CONT PRN IV SEE I/O RECORD; Start at 15:15; Status UNV Heparin Sodium/ Dextrose 500 ml @ 0 mls/hr CONT PRN IV SEE I/O RECORD Last administered on 12/04/16 19:23; Start 11/29/16 at 15:15; Stop 12/05/16 at 08:51 ; Status DC Nitroglycerin/ Dextrose 250 ml @ 0 mls/hr CONT PRN IV SEE I/O RECORD Last administered on 11/30/16 10:53; Start 11/30/16 at 10:45; Stop 12/05/16 at 09:17 ; Status DC Potassium Acetate/ Potassium Phosphate/ Magnesium Sulfate/ Calcium Gluconate/ Multivitamins/ Chromium/Copper/ Manganese/Seleni/ Zn/Insulin Human Regular/ Total Parenteral Nutrition/Amino Acids/Dextrose/ Fat Emulsion Intravenous ( Potassium Phosphate/Calcium Gluconate/ Infuvite Asim... 1,472.1 ml @ 63 mls/hr TPN CONT IV Last administered on 11/30/16 21:31; Start 11/30/16 at 22:00; Stop 12/01/16 at 21:21; Status DC Furosemide 40 mg 40 mg 1X ONCE IVP Last administered on 11/30/16 15:02; Start 11/30/16 at 15:00; Stop 11/30/16 at 15:01; Status DC Iron Sucrose/ Sodium Chloride (Venofer/Iv Sodium Chloride 0.9% 250ml) 275 ml @ 78.571 mls/ hr 1X ONCE IV Last administered on 12/01/16 09:58; Start at 09:00; Stop 12/01/16 at 12:29; Status DC Insulin Detemir (Levemir) 12 units QHS SQ Last administered on 12/03/16 21:28 ; Start 12/01/16 at 21:00; Stop 12/04/16 at 16:49; Status DC Info 1 each 1 each PRN DAILY PRN MC SEE COMMENTS Last administered on 12:18; Start 12/01/16 at 10:45; Stop 12/05/16 at 09:17; Status DC Potassium Acetate/ Potassium Phosphate/ Magnesium Sulfate/ Calcium Gluconate/ Multivitamins/ Chromium/Copper/ Manganese/Seleni/ Zn/Insulin Human Regular/ Total Parenteral Nutrition/Amino Acids/Dextrose/ Fat Emulsion Intravenous ( Potassium Phosphate/Calcium Gluconate/ Infuvite Asim... 1,512 ml @ 64.708 mls/ hr TPN CONT IV Last administered on 12/01/16 22:20; Start 12/01/16 at 22:00; Stop 12/02/16 at 21:21; Status DC Pantoprazole Sodium (Protonix Vial) 40 mg DAILYAC IVP Last administered on 12/04 10:37; Start 12/02/16 at 07:30; Stop 12/05/16 at 06:27; Status DC Acetaminophen 650 mg 650 mg 1X PRN PRN PO PRN prior to blood transfusion; Start 12/02/16 at 06:30; Stop 12/03/16 at 06:29; Status DC Potassium Acetate/ Potassium Phosphate/ Magnesium Sulfate/ Calcium Gluconate/ Multivitamins/ Chromium/Copper/ Manganese/Seleni/ Zn/Insulin Human Regular/ Total Parenteral Nutrition/Amino Acids/Dextrose/ Fat Emulsion Intravenous ( Potassium Phosphate/Calcium Gluconate/ Infuvite Asim... 1,512 ml @ 64.708 mls/ hr TPN CONT IV Last administered on 12/02/16 21:46; Start 12/02/16 at 22:00; Stop 12/03/16 at 21:21; Status DC Furosemide (Lasix) 40 mg DAILY IVP Last administered on 12/03/16 08:47; Start 12/02/16 at 12:30; Stop 12/04/16 at 06:30; Status DC Acetaminophen (Acetaminophen Supp) 650 mg PRN Q6HRS PRN [place] MILD PAIN / TEMP; Start 12/02/16 at 13:30; Stop 12/02/16 at 13:36; Status DC Acetaminophen 650 mg 650 mg PRN Q6HRS PRN [place] MILD PAIN / TEMP; Start 12/02/16 at 13:45 Potassium Acetate/ Potassium Phosphate/ Magnesium Sulfate/ Calcium Gluconate/ Multivitamins/ Chromium/Copper/ Manganese/Seleni/ Zn/Insulin Human Regular/ Total Parenteral Nutrition/Amino Acids/Dextrose/ Fat Emulsion Intravenous ( Potassium Phosphate/Calcium Gluconate/ Infuvite Asim... 1,512 ml @ 63 mls/hr TPN CONT IV Last administered on 12/03/16 21:05; Start 12/03/16 at 22:00; Stop 12/04/16 at 21:59; Status DC Fentanyl Citrate (Fentanyl 2ml Vial) 25 mcg PRN Q30MIN PRN IV SED; Start at 06:29; Stop 12/05/16 at 09:17; Status DC Ondansetron HCl (Zofran) 4 mg PRN Q6HRS PRN IV NAUSEA/VOMITING; Start 12/04/16 at 06:30 Furosemide (Lasix) 40 mg DAILY IVP Last administered on 12/06/16 10:20; Start 12/04/16 at 06:30; Stop 12/06/16 at 15:12; Status DC Lidocaine HCl 20 ml 20 ml STK-MED ONCE .ROUTE ; Start 12/04/16 at 07:02; Stop at 07:03; Status DC Heparin Sodium/ Sodium Chloride 1,500 ml @ As Directed STK-MED ONCE .ROUTE ; Start 12/04/16 at 07:02; Stop 12/04/16 at 07:03; Status DC Iodixanol (Visipaque 320) 100 ml STK-MED ONCE .ROUTE ; Start 12/04/16 at 07:02; Stop 12/04/16 at 07:03; Status DC Nitroglycerin (Nitroglycerin) 200 mcg STK-MED ONCE .ROUTE ; Start 12/04/16 at 07 :05; Stop 12/04/16 at 07:06; Status DC Verapamil HCl (Verapamil) 5 mg STK-MED ONCE .ROUTE ; Start 12/04/16 at 07:05; Stop 12/04/16 at 07:06; Status DC Midazolam HCl (Versed) 2 mg STK-MED ONCE .ROUTE ; Start 12/04/16 at 07:05; Stop 12/04/16 at 07:06; Status DC Fentanyl Citrate (Fentanyl 2ml Vial) 100 mcg STK-MED ONCE .ROUTE ; Start at 07:05; Stop 12/04/16 at 07:06; Status DC Heparin Sodium (Porcine) 10,000 unit STK-MED ONCE .ROUTE ; Start 12/04/16 at 07: 05; Stop 12/04/16 at 07:06; Status DC Nitroglycerin (Nitroglycerin) 200 mcg STK-MED ONCE .ROUTE ; Start 12/04/16 at 07 :17; Stop 12/04/16 at 07:18; Status DC Verapamil HCl (Verapamil) 5 mg STK-MED ONCE .ROUTE ; Start 12/04/16 at 07:18; Stop 12/04/16 at 07:19; Status DC Nitroglycerin (Nitroglycerin) 200 mcg 1X ONCE IART Last administered on 07:42; Start 12/04/16 at 07:45; Stop 12/04/16 at 07:46; Status DC Verapamil HCl (Verapamil) 2.5 mg 1X ONCE IART Last administered on 12/04/16 07:43; Start 12/04/16 at 07:45; Stop 12/04/16 at 07:46; Status DC Heparin Sodium/ Sodium Chloride 1,000 unit 1X ONCE IART Last administered on 07:43; Start 12/04/16 at 07:45; Stop 12/04/16 at 07:46; Status DC Midazolam HCl (Versed) 0.5 mg 1X ONCE IV Last administered on 12/04/16 07:44 ; Start 12/04/16 at 07:45; Stop 12/04/16 at 07:46; Status DC Fentanyl Citrate (Fentanyl 2ml Vial) 25 mcg 1X ONCE IV Last administered on 07:44; Start 12/04/16 at 07:45; Stop 12/04/16 at 07:46; Status DC Iodixanol (Visipaque 320) 100 ml 1X ONCE IART Last administered on 12/04/16 07:42; Start 12/04/16 at 07:45; Stop 12/04/16 at 07:46; Status DC Lidocaine HCl 20 ml 1X ONCE IJ Last administered on 12/04/16 07:43; Start at 07:45; Stop 12/04/16 at 07:46; Status DC Info 1 each 1 each PRN DAILY PRN MC SEE COMMENTS; Start 12/04/16 at 07:45; Stop 12/06/16 at 07:44; Status DC Potassium Acetate/ Potassium Phosphate/ Magnesium Sulfate/ Calcium Gluconate/ Multivitamins/ Chromium/Copper/ Manganese/Seleni/ Zn/Insulin Human Regular/ Total Parenteral Nutrition/Amino Acids/Dextrose/ Fat Emulsion Intravenous ( Potassium Phosphate/Calcium Gluconate/ Infuvite Asim... 1,512 ml @ 63 mls/hr TPN CONT IV Last administered on 12/04/16 22:47; Start 12/04/16 at 22:00; Stop 12/05/16 at 21:59; Status DC Lidocaine HCl 20 ml 20 ml STK-MED ONCE .ROUTE ; Start 12/04/16 at 12:59; Stop at 13:00; Status DC Heparin Sodium/ Sodium Chloride 1,000 ml @ As Directed STK-MED ONCE .ROUTE ; Start 12/04/16 at 12:59; Stop 12/05/16 at 08:51; Status DC Iodixanol (Visipaque 320) 100 ml STK-MED ONCE .ROUTE ; Start 12/04/16 at 12:59; Stop 12/04/16 at 13:00; Status DC Insulin Detemir (Levemir) 25 units QHS SQ ; Start 12/04/16 at 21:00; Stop at 21:00; Status DC Insulin Detemir (Levemir) 20 units QHS SQ Last administered on 12/13/16 21:28; Start 12/04/16 at 21:00; Stop 12/14/16 at 09:01; Status DC Morphine Sulfate 2 mg PRN Q2HR PRN IV PAIN Last administered on 12/12/16 04:03 ; Start 12/04/16 at 19:15 Morphine Sulfate 4 mg PRN Q2HR PRN IV PAIN; Start 12/04/16 at 19:15; Stop 12/05 at 09:17; Status DC Pantoprazole Sodium (Protonix Vial) 40 mg DAILYAC IVP Last administered on 10:04; Start 12/05/16 at 06:27 Verapamil HCl (Verapamil) 5 mg STK-MED ONCE .ROUTE ; Start 12/04/16 at 07:30; Stop 12/05/16 at 08:38; Status DC Enoxaparin Sodium (Lovenox Per Pharmacy Treatment Dosing) 1 each PRN DAILY PRN MC SEE COMMENTS; Start 12/05/16 at 09:00; Stop 12/09/16 at 13:25; Status DC Enoxaparin Sodium (Lovenox 100mg Syringe) 100 mg Q12HR SQ Last administered on 12/10/16 19:53; Start 12/05/16 at 09:00; Stop 12/11/16 at 08:40; Status DC Info 1 each 1 each PRN DAILY PRN MC SEE COMMENTS Last administered on 12/07/16 12:19; Start 12/05/16 at 10:15; Stop 12/12/16 at 15:42; Status DC Potassium Acetate/ Potassium Phosphate/ Magnesium Sulfate/ Calcium Gluconate/ Multivitamins/ Chromium/Copper/ Manganese/Seleni/ Zn/Insulin Human Regular/ Total Parenteral Nutrition/Amino Acids/Dextrose/ Fat Emulsion Intravenous ( Potassium Phosphate/Calcium Gluconate/ Infuvite Asim... 1,512 ml @ 63 mls/hr TPN CONT IV Last administered on 12/05/16 21:14; Start 12/05/16 at 22:00; Stop 12/06/16 at 21:59; Status DC Barium Sulfate (Varibar Thin Liquid Apple) 148 gm 1X ONCE PO Last administered on 12/05/16 13:56; Start 12/05/16 at 14:00; Stop 12/05/16 at 14:01 ; Status DC Dextrose 12.5 gm 12.5 gm PRN Q15MIN PRN IV SEE COMMENTS; Start 12/05/16 at 14: 19; Stop 12/14/16 at 09:07; Status DC Potassium Acetate/ Potassium Phosphate/ Magnesium Sulfate/ Calcium Gluconate/ Multivitamins/ Chromium/Copper/ Manganese/Seleni/ Zn/Insulin Human Regular/ Total Parenteral Nutrition/Amino Acids/Dextrose/ Fat Emulsion Intravenous ( Potassium Phosphate/Calcium Gluconate/ Infuvite Asim... 1,512 ml @ 63 mls/hr TPN CONT IV Last administered on 12/06/16 20:49; Start 12/06/16 at 22:00; Stop 12/07/16 at 21:59; Status DC Furosemide 20 mg 20 mg DAILY IVP Last administered on 12/08/16 08:37; Start 12/07/16 at 09:00; Stop 12/08/16 at 09:24; Status DC Potassium Acetate/ Potassium Phosphate/ Magnesium Sulfate/ Calcium Gluconate/ Multivitamins/ Chromium/Copper/ Manganese/Seleni/ Zn/Insulin Human Regular/ Total Parenteral Nutrition/Amino Acids/Dextrose/ Fat Emulsion Intravenous ( Potassium Phosphate/Calcium Gluconate/ Infuvite Asim... 1,512 ml @ 63 mls/hr TPN CONT IV Last administered on 12/07/16 20:23; Start 12/07/16 at 22:00; Stop 12/08/16 at 21:59; Status DC Lorazepam 0.5 mg 0.5 mg PRN Q6HRS PRN IV ANXIETY / AGITATION Last administered on 12/14/16 01:49; Start 12/07/16 at 16:30 Dextrose 1,000 ml @ 100 mls/hr Q10H IV Last administered on 12/08/16 09:59; Start 12/08/16 at 09:30; Stop 12/08/16 at 19:29; Status DC Potassium Acetate/ Potassium Phosphate/ Magnesium Sulfate/ Calcium Gluconate/ Multivitamins/ Chromium/Copper/ Manganese/Seleni/ Zn/Insulin Human Regular/ Total Parenteral Nutrition/Amino Acids/Dextrose/ Fat Emulsion Intravenous ( Potassium Phosphate/Calcium Gluconate/ Infuvite Asim... 2,400 ml @ 100 mls/hr TPN CONT IV Last administered on 12/08/16 21:20; Start 12/08/16 at 22:00; Stop 12/09/16 at 21:59; Status DC Temazepam 15 mg 15 mg PRN QHS PRN PO INSOMNIA; Start 12/09/16 at 11:30 Potassium Acetate/ Potassium Phosphate/ Magnesium Sulfate/ Calcium Gluconate/ Multivitamins/ Chromium/Copper/ Manganese/Seleni/ Zn/Insulin Human Regular/ Total Parenteral Nutrition/Amino Acids/Dextrose/ Fat Emulsion Intravenous ( Potassium Phosphate/Calcium Gluconate/ Infuvite Asim... 2,400 ml @ 100 mls/hr TPN CONT IV Last administered on 12/09/16 21:27; Start 12/09/16 at 22:00; Stop 12/10/16 at 21:59; Status DC Lorazepam 1 mg 1 mg 1X ONCE IV Last administered on 12/09/16 21:29; Start 12/09 at 21:30; Stop 12/09/16 at 21:31; Status DC Potassium Acetate/ Potassium Phosphate/ Magnesium Sulfate/ Calcium Gluconate/ Multivitamins/ Chromium/Copper/ Manganese/Seleni/ Zn/Insulin Human Regular/ Total Parenteral Nutrition/Amino Acids/Dextrose/ Fat Emulsion Intravenous ( Potassium Phosphate/Calcium Gluconate/ Infuvite Asim... 2,400 ml @ 100 mls/hr TPN CONT IV Last administered on 12/10/16 22:08; Start 12/10/16 at 22:00; Stop 12/11/16 at 21:59; Status DC Lidocaine/Sodium Bicarbonate (Buffered Lidocaine 1%) 20 ml STK-MED ONCE IJ ; Start 12/10/16 at 14:30; Stop 12/10/16 at 14:31; Status DC Naloxone HCl (Narcan) 0.4 mg STK-MED ONCE .ROUTE ; Start 12/10/16 at 14:45; Stop 12/10/16 at 14:46; Status DC Flumazenil (Romazicon) 0.5 mg STK-MED ONCE IV ; Start 12/10/16 at 14:45; Stop 12/10/16 at 14:46; Status DC Fentanyl Citrate (Fentanyl 2ml Vial) 100 mcg STK-MED ONCE .ROUTE ; Start at 14:45; Stop 12/10/16 at 14:46; Status DC Midazolam HCl (Versed) 2 mg STK-MED ONCE .ROUTE ; Start 12/10/16 at 14:45; Stop 12/10/16 at 14:46; Status DC Lidocaine/Sodium Bicarbonate (Buffered Lidocaine 1%) 20 ml 1X ONCE IJ Last administered on 12/10/16 15:15; Start 12/10/16 at 15:15; Stop 12/10/16 at 15:16; Status DC Midazolam HCl (Versed) 2 mg 1X ONCE IV Last administered on 12/10/16 15:20; Start 12/10/16 at 15:15; Stop 12/10/16 at 15:16; Status DC Fentanyl Citrate 100 mcg 100 mcg 1X ONCE IV Last administered on 12/10/16 15: 20; Start 12/10/16 at 15:15; Stop 12/10/16 at 15:16; Status DC Potassium Acetate/ Potassium Phosphate/ Magnesium Sulfate/ Calcium Gluconate/ Multivitamins/ Chromium/Copper/ Manganese/Seleni/ Zn/Insulin Human Regular/ Total Parenteral Nutrition/Amino Acids/Dextrose/ Fat Emulsion Intravenous ( Potassium Phosphate/Calcium Gluconate/ Infuvite Asim... 2,400 ml @ 100 mls/hr TPN CONT IV Last administered on 12/11/16 23:37; Start 12/11/16 at 22:00; Stop 12/12/16 at 21:59; Status DC Ondansetron HCl (Zofran) 4 mg PRN Q6HRS PRN IV NAUSEA/VOMITING; Start 12/12/16 at 07:00; Stop 12/12/16 at 07:00; Status DC Fentanyl Citrate (Fentanyl 2ml Vial) 25 mcg PRN Q5MIN PRN IV MILD PAIN; Start 12/12/16 at 07:00; Stop 12/12/16 at 07:00; Status DC Fentanyl Citrate (Fentanyl 2ml Vial) 50 mcg PRN Q5MIN PRN IV MODERATE PAIN; Start 12/12/16 at 07:00; Stop 12/12/16 at 07:00; Status DC Morphine Sulfate 1 mg 1 mg PRN Q10MIN PRN IV SEVERE PAIN; Start 12/12/16 at 07: 00; Stop 12/12/16 at 07:00; Status DC Lactated Ringer's (Iv Lactated Ringers) 1,000 ml @ 30 mls/hr Q24H IV ; Start at 07:00; Stop 12/12/16 at 07:00; Status DC Lidocaine HCl 2 ml PRN 1X PRN ID PRIOR TO IV START; Start 12/12/16 at 07:00; Stop 12/12/16 at 07:00; Status DC Hydromorphone HCl (Dilaudid) 0.5 mg PRN Q10MIN PRN IV SEV PAIN, Second choice; Start 12/12/16 at 07:00; Stop 12/12/16 at 07:00; Status DC Prochlorperazine Edisylate 5 mg 5 mg PACU PRN PRN IV NAUSEA, MRX1; Start at 07:00; Stop 12/12/16 at 07:00; Status DC Potassium Acetate 35 meq/Potassium Phosphate 5 mmol/ Magnesium Sulfate 15 meq/ Calcium Gluconate 5 meq/ Multivitamins 10 ml/Chromium/ Copper/Manganese/ Seleni/ Zn 1 ml/ Insulin Human Regular 10 unit/ Total Parenteral Nutrition/Amino Acids/ Dextrose/ Fat Emulsion Intravenous 1,920 ml @ 80 mls/hr TPN CONT IV Last administered on 12/12/16 23:50; Start 12/12/16 at 22:00; Stop 12/13/16 at 21:59; Status DC Potassium Acetate/ Potassium Phosphate/ Magnesium Sulfate/ Calcium Gluconate/ Multivitamins/ Chromium/Copper/ Manganese/Seleni/ Zn/Insulin Human Regular/ Total Parenteral Nutrition/Amino Acids/Dextrose/ Fat Emulsion Intravenous ( Potassium Phosphate/Calcium Gluconate/ Infuvite Asim... 1,920 ml @ 80 mls/hr TPN CONT IV Last administered on 12/13/16 22:15; Start 12/13/16 at 22:00; Stop 12/14/16 at 21:59 Enoxaparin Sodium (Lovenox 100mg Syringe) 90 mg Q12HR SQ Last administered on 12:56; Start 12/13/16 at 12:00; Stop 12/13/16 at 20:27; Status DC Insulin Aspart (Novolog) 0-9 UNITS TIDWMEALS SQ ; Start 12/14/16 at 12:00 Dextrose (Dextrose 50%-Water Syringe) 12.5 gm PRN Q15MIN PRN IV SEE COMMENTS; Start 12/14/16 at 09:00 Insulin Detemir 30 units 30 units QHS SQ ; Start 12/14/16 at 21:00 Potassium Acetate/ Potassium Phosphate/ Magnesium Sulfate/ Calcium Gluconate/ Multivitamins/ Chromium/Copper/ Manganese/Seleni/ Zn/Insulin Human Regular/ Total Parenteral Nutrition/Amino Acids/Dextrose/ Fat Emulsion Intravenous ( Potassium Phosphate/Calcium Gluconate/ Infuvite Asim... 1,920 ml @ 80 mls/hr TPN CONT IV ; Start 12/14/16 at 22:00; Stop 12/15/16 at 21:59 Vitals/I & O Vital Sign - Last 24 Hours 12/13/16 12/13/16 12/13/16 12/13/16 14:32 17:18 17:57 19:00 Temp 97.8 97.7 97.8 97.7 Pulse 99 101 95 Resp 16 18 B/P 129/77 143/83 145/77 Pulse Ox 96 99 97 O2 Delivery Nasal Cannula Nasal Cannula Nasal Cannula O2 Flow Rate 1.0 2.0 1.0 12/13/16 12/13/16 12/13/16 12/13/16 19:45 20:18 22:11 23:00 Temp 98.2 98.2 Pulse 95 114 Resp 20 B/P 145/77 131/79 Pulse Ox 96 96 O2 Delivery Nasal Cannula Nasal Cannula Nasal Cannula O2 Flow Rate 2.0 2.0 1.0 12/14/16 12/14/16 12/14/16 12/14/16 03:00 03:41 07:53 08:21 Temp 98.1 98.0 98.1 98.0 Pulse 96 95 102 Resp 18 20 B/P 119/68 119/68 124/75 Pulse Ox 98 100 O2 Delivery Nasal Cannula Nasal Cannula Nasal Cannula O2 Flow Rate 2.0 1.0 2.0 12/14/16 12/14/16 12/14/16 10:07 10:22 11:44 Temp 97.8 97.8 Pulse 105 105 Resp 16 B/P 132/73 132/73 Pulse Ox 99 98 O2 Delivery Nasal Cannula Nasal Cannula O2 Flow Rate 1.0 2.0 Intake and Output 12/13/16 12/13/16 12/14/16 15:00 23:00 07:00 Intake Total 0 ml 960 ml Output Total 800 ml 1000 ml Balance -800 ml -40 ml EVELYNE ANTONIO MD Dec 14, 2016 13:00
--- NOTE | 2016-12-14 14:58 | PDOC2 ---
NEUROLOGY CONSULT Date of Admission Date of Admission DATE: 12/14/16 TIME: 14:46 Reason for Consult Reason for Consult: Cerebral hemorrhage Referring Physician Referring Physician: Dr. Squires Source Source: Chart review, Patient History of Present Illness History of Present Illness The patient is a 71-year-old right-handed male admitted on 11/24/16 with ventricular fibrillation cardiac arrest. He is intubated and woke up well. He had multiple deep venous thromboses and underwent a filter placement. He has been on Lovenox. This afternoon about 12 PM, he had decreased level of consciousness and unequal pupils. CT shows hemorrhagic stroke as described below. He denies any headache and feels well now. There is no prior history of stroke, seizure, or head injury. Medical complications have included hematuria, hemothorax, renal insufficiency. Past Medical History Cardiovascular: Other (v fib cardiac arrest, deep venous thromboses) GI: Other (colonic polyps) Endocrine: Diabetes Family History Family History: Cancer Social History Social History , no tobacco or alcohol Current Medications Current Medications Current Medications Sodium Chloride 1,000 ml @ 1,000 mls/hr Q1H IV Last administered on 11/24/16 06:50; Start 11/24/16 at 06:50; Stop 11/24/16 at 07:49; Status DC Epinephrine HCl/ Sodium Chloride (Adrenalin/Iv Sodium Chloride 0.9% 250ml) 254 ml @ 0 mls/hr CONT PRN IV SEE I/O RECORD Last administered on 11/26/16 03:05; Start 11/24/16 at 07:30; Stop 11/27/16 at 08:25; Status DC Insulin Aspart (Novolog) 0-7 UNITS TIDWMEALS SQ ; Start 11/24/16 at 08:00; Stop 11/24/16 at 15:36; Status DC Dextrose 12.5 gm 12.5 gm PRN Q15MIN PRN IV SEE COMMENTS; Start 11/24/16 at 07: 45; Stop 11/25/16 at 23:34; Status DC Sodium Chloride (Iv Sodium Chloride 0.9% 1000ml Bag) 1,000 ml @ 125 mls/hr 1X ONCE IV Last administered on 11/24/16 07:52; Start 11/24/16 at 08:00; Stop at 08:20; Status DC Vancomycin HCl (Vanco Per Pharmacy) 1 each PRN DAILY PRN MC SEE COMMENTS Last administered on 11/24/16 11:26; Start 11/24/16 at 08:15; Stop 11/24/16 at 13:06 ; Status DC Piperacillin Sod/ Tazobactam Sod 1 each 1 each PRN DAILY PRN MC SEE COMMENTS; Start 11/24/16 at 08:15; Stop 11/24/16 at 13:06; Status DC Sodium Bicarbonate 50 meq/Sodium Chloride 1,050 ml @ 125 mls/hr Q8H24M IV Last administered on 11/26/16 11:24; Start 11/24/16 at 08:30; Stop 11/26/16 at 12:41; Status DC Vancomycin HCl 2 gm/Sodium Chloride 500 ml @ 250 mls/hr ONCE ONCE IV Last administered on 11/24/16 10:15; Start 11/24/16 at 08:30; Stop 11/24/16 at 10:29 ; Status DC Piperacillin Sod/ Tazobactam Sod 4.5 gm/Sodium Chloride 100 ml @ 200 mls/hr Q6HRS IV Last administered on 11/24/16 10:10; Start 11/24/16 at 08:30; Stop at 11:15; Status DC Sodium Chloride (Iv Sodium Chloride 0.9% 1000ml Bag) 1,000 ml @ 1,000 mls/hr Q1H IV Last administered on 11/24/16 10:09; Start 11/24/16 at 08:39; Stop at 11:47; Status DC Fentanyl Citrate (Fentanyl 2ml Vial) 25 mcg PRN Q30MIN PRN IV SED Last administered on 11/30/16 17:24; Start 11/24/16 at 08:45; Stop 12/04/16 at 06:29 ; Status DC Lorazepam 1 mg 1 mg PRN Q30MIN PRN IV SEDATION Last administered on 11/25/16 12:26; Start 11/24/16 at 08:45; Stop 11/28/16 at 19:45; Status DC Fentanyl Citrate 30 ml @ 2.5 mls/hr CONT PRN PRN IV IVF Last administered on 07:40; Start 11/24/16 at 08:45; Stop 11/26/16 at 17:49; Status DC Propofol (Diprivan) 100 ml @ 0 mls/hr CONT PRN IV SEE I/O RECORD Last administered on 11/26/16 07:38; Start 11/24/16 at 08:45; Stop 11/26/16 at 17:49 ; Status DC Vecuronium [place] (Norcuron Bolus) 9 mg PRN Q30MIN PRN IV SHIVERING Last administered on 11/24/16 17:38; Start 11/24/16 at 08:45; Stop 11/26/16 at 17:49 ; Status DC Meperidine HCl (Demerol) 12.5 mg PRN Q30MIN PRN IV SHIVERING Last administered on 11/24/16 22:21; Start 11/24/16 at 08:45; Stop 11/24/16 at 22:21; Status DC Multi-Ingred Cream/Lotion/Oil/ Oint (Artificial Tears Eye Oint) 1 radha PRN Q6HRS PRN OU 0.5 INCH FOR DRY EYE; Start 11/24/16 at 08:45 Famotidine (Pepcid) 20 mg QHS IVP Last administered on 11/27/16 21:12; Start 11/24/16 at 21:00; Stop 11/28/16 at 09:46; Status DC Aspirin (Aspirin) 300 mg DAILY WI Last administered on 12/14/16 10:07; Start at 09:00 Sodium Chloride (Normal Saline Flush) 3 ml QSHIFT PRN IV AFTER MEDS AND BLOOD DRAWS; Start 11/24/16 at 08:45 Acetaminophen (Tylenol) 650 mg Q6HRS NG ; Start 11/24/16 at 12:00; Stop at 11:59; Status DC Acetaminophen (Tylenol) 650 mg PRN Q6HRS PRN WI MILD PAIN / TEMP; Start at 08:45; Stop 11/25/16 at 23:35; Status DC Acetaminophen (Tylenol) 650 mg PRN Q6HRS PRN NG MILD PAIN / TEMP; Start at 08:45 Info 1 ea 1 ea DAILY PRN MC PER PROTOCOL; Start 11/26/16 at 08:45; Stop at 09:17; Status DC Insulin Human Regular 150 unit/ Sodium Chloride 151.5 ml @ 9.16 mls/hr CONT PRN IV SEE I/O RECORD Last administered on 11/24/16 10:13; Start 11/24/16 at 09 :30; Stop 11/27/16 at 08:25; Status DC Piperacillin Sod/ Tazobactam Sod 3.375 gm/Sodium Chloride 50 ml @ 100 mls/hr Q6HRS IV ; Start 11/24/16 at 18:00; Stop 11/24/16 at 18:00; Status DC Vancomycin HCl/ Sodium Chloride (Iv Sodium Chloride 0.9% 500ml Bag) 500 ml @ 250 mls/hr Q24H IV ; Start 11/25/16 at 10:00; Stop 11/25/16 at 10:00; Status DC Vancomycin HCl 1 each 1 each 1X ONCE MC ; Start 11/26/16 at 09:30; Stop at 09:30; Status DC Sodium Chloride (Iv Sodium Chloride 0.9% 1000ml Bag) 1,000 ml @ 1,000 mls/hr 1X ONCE IV Last administered on 11/24/16 11:00; Start 11/24/16 at 11:00; Stop 11/24/16 at 11:59; Status DC Insulin Detemir (Levemir) 12 units QHS SQ ; Start 11/24/16 at 21:00; Stop at 21:00; Status DC Insulin Aspart (Novolog) 10 units 1X ONCE SQ ; Start 11/24/16 at 15:30; Stop at 20:10; Status DC Insulin Aspart (Novolog) 0-7 UNITS Q4HRS SQ ; Start 11/24/16 at 16:00; Stop at 20:10; Status DC Heparin Sodium (Porcine) 8100 unit 8,100 unit 1X ONCE IV Last administered on 11/24/16 17:24; Start 11/24/16 at 17:00; Stop 11/24/16 at 17:01; Status DC Heparin Sodium/ Dextrose 500 ml @ 0 mls/hr CONT PRN IV SEE I/O RECORD Last administered on 11/28/16 02:06; Start 11/24/16 at 16:45; Stop 11/28/16 at 17:12 ; Status DC Heparin Sodium (Porcine) 3,000 unit PRN Q6HRS PRN IV FOR UFH LEVEL LESS THAN 0.2; Start 11/24/16 at 16:45; Stop 11/28/16 at 17:12; Status DC Heparin Sodium (Porcine) 1,500 unit PRN Q6HRS PRN IV FOR UFH LEVEL 0.2 - 0.29 Last administered on 11/26/16 12:08; Start 11/24/16 at 16:45; Stop 11/28/16 at 17:12; Status DC Info 1 each 1 each PRN DAILY PRN MC SEE COMMENTS Last administered on 10:03; Start 11/24/16 at 17:00; Stop 11/28/16 at 17:13; Status DC Piperacillin Sod/ Tazobactam Sod 3.375 gm/Sodium Chloride 50 ml @ 100 mls/hr Q6HRS IV Last administered on 12/07/16 05:21; Start 11/25/16 at 00:00; Stop 12/07/16 at 12:10; Status DC Vancomycin HCl/ Sodium Chloride (Iv Sodium Chloride 0.9% 250ml) 250 ml @ 250 mls/hr 1X ONCE IV ; Start 11/24/16 at 21:30; Stop 11/24/16 at 22:29; Status UNV Vancomycin HCl 1 each 1 each PRN DAILY PRN MC SEE COMMENTS Last administered on 11/25/16 03:30; Start 11/25/16 at 01:00; Stop 11/25/16 at 08:57; Status DC Vancomycin HCl/ Sodium Chloride (Iv Sodium Chloride 0.9% 500ml Bag) 500 ml @ 250 mls/hr Q24H IV ; Start 11/25/16 at 10:00; Stop 11/25/16 at 10:00; Status DC Vancomycin HCl 1 each 1X ONCE MC ; Start 11/26/16 at 09:30; Stop 11/26/16 at 09 :30; Status DC Enoxaparin Sodium (Lovenox Per Pharmacy Prophylaxis Dosing) 1 each PRN DAILY PRN MC SEE COMMENTS; Start 11/25/16 at 08:45; Status UNV Chlorhexidine Gluconate 15 ml 15 ml BID MM Last administered on 11/26/16 08:37 ; Start 11/25/16 at 21:00; Stop 11/26/16 at 17:49; Status DC Magnesium Sulfate/ Dextrose 50 ml @ 25 mls/hr PRN DAILY PRN IV for Mag < 1.7 on am labs Last administered on 11/26/16 05:29; Start 11/25/16 at 09:45; Stop 11/27/16 at 08:47; Status DC Magnesium Sulfate/ Dextrose 50 ml @ 25 mls/hr PRN DAILY PRN IV for Mag < 1.7 on am labs; Start 11/25/16 at 09:45; Status UNV Sodium Chloride 500 ml @ 0 mls/hr QID PRN IV UO< 30cc/hr over previous 6hrs Last administered on 11/25/16 10:54; Start 11/25/16 at 09:45; Stop 11/27/16 at 11:25; Status DC Magnesium Sulfate/ Dextrose (Magnesium Sulfate PREMIX 2GM) 50 ml @ 25 mls/hr 1X ONCE IV Last administered on 11/25/16 13:28; Start 11/25/16 at 12:30; Stop 11/25/16 at 14:29; Status DC Lidocaine/Sodium Bicarbonate 20 ml 20 ml STK-MED ONCE IJ ; Start 11/25/16 at 12: 35; Stop 11/25/16 at 12:36; Status DC Heparin Sodium/ Sodium Chloride 500 ml @ As Directed STK-MED ONCE .ROUTE ; Start 11/25/16 at 12:35; Stop 11/25/16 at 12:36; Status DC Lidocaine/Sodium Bicarbonate (Buffered Lidocaine 1%) 3 ml 1X ONCE IJ Last administered on 11/25/16 13:15; Start 11/25/16 at 13:15; Stop 11/25/16 at 13:16 ; Status DC Heparin Sodium/ Sodium Chloride 60 unit 1X ONCE IV Last administered on 13:16; Start 11/25/16 at 13:15; Stop 11/25/16 at 13:16; Status DC Amiodarone HCl (Cordarone) 450 mg STK-MED ONCE .ROUTE ; Start 11/25/16 at 12:00 ; Stop 11/25/16 at 14:56; Status DC Epinephrine HCl (Adrenalin) 30 mg STK-MED ONCE .ROUTE ; Start 11/25/16 at 12:00 ; Stop 11/25/16 at 14:56; Status DC Atropine Sulfate 1.5 mg STK-MED ONCE .ROUTE ; Start 11/25/16 at 12:00; Stop at 14:56; Status DC Epinephrine HCl 4 mg STK-MED ONCE .ROUTE ; Start 11/25/16 at 12:00; Stop at 14:56; Status DC Sodium Bicarbonate 150 meq 150 meq STK-MED ONCE .ROUTE ; Start 11/25/16 at 12:00 ; Stop 11/25/16 at 14:56; Status DC Midazolam HCl (Versed 100mg/ 100ml Premix) 100 ml @ 0 mls/hr CONT PRN IV SEE I/ O RECORD; Start 11/25/16 at 23:30; Stop 11/26/16 at 17:49; Status DC Insulin Aspart (Novolog) 0-7 UNITS TIDWMEALS SQ Last administered on 11/27/16 19:43; Start 11/26/16 at 08:00; Stop 11/28/16 at 01:01; Status DC Dextrose 12.5 gm PRN Q15MIN PRN IV SEE COMMENTS; Start 11/25/16 at 23:30; Stop 12/05/16 at 14:19; Status DC Acetaminophen 650 mg 650 mg PRN Q6HRS PRN [place] MILD PAIN / TEMP Last administered on 11/28/16 04:19; Start 11/25/16 at 23:30; Stop 12/02/16 at 13:29 ; Status DC Potassium Chloride 50 ml @ 50 mls/hr Q1H IV Last administered on 11/26/16 11: 23; Start 11/26/16 at 10:30; Stop 11/26/16 at 12:29; Status DC Sodium Bicarbonate/ Sterile Water 1,100 ml @ 100 mls/hr Q11H IV Last administered on 11/27/16 00:56; Start 11/26/16 at 13:00; Stop 11/27/16 at 11:25 ; Status DC Info 1 each 1 each PRN DAILY PRN MC SEE COMMENTS Last administered on 12/14/16 11:12; Start 11/26/16 at 12:45 Calcium Chloride/ Sodium Chloride (Iv Sodium Chloride 0.9% 100ml) 120 ml @ 240 mls/hr 1X ONCE IV Last administered on 11/26/16 13:22; Start 11/26/16 at 13: 15; Stop 11/26/16 at 13:44; Status DC Ondansetron HCl 4 mg 4 mg PRN Q6HRS PRN IV NAUSEA/VOMITING Last administered on 12/03/16 21:17; Start 11/26/16 at 13:45; Stop 12/04/16 at 06:30; Status DC Sodium Chloride/ Potassium Chloride/ Magnesium Sulfate/ Calcium Gluconate/ Multivitamins/ Chromium/Copper/ Manganese/Seleni/ Zn/Total Parenteral Nutrition/ Amino Acids/Dextrose/ Fat Emulsion Intravenous (Sodium Chloride/ Infuvite Adult / Multitrace-5 Conc/ Tpn - Tpn Fluid/ Trophami... 1,594.468 ml @ 66.436 m... TPN CONT IV Last administered on 11/26/16 21:27; Start 11/26/16 at 22:00; Stop 11/27/16 at 21:59; Status DC Albuterol Sulfate 2.5 mg 2.5 mg 1X ONCE NEB Last administered on 11/27/16 07: 21; Start 11/27/16 at 06:45; Stop 11/27/16 at 06:46; Status DC Magnesium Sulfate/ Dextrose 50 ml @ 25 mls/hr PRN DAILY PRN IV for Mag < 1.7 on am labs; Start 11/27/16 at 08:45 Sodium Chloride 90 meq/Potassium Chloride 50 meq/ Magnesium Sulfate 10 meq/ Calcium Gluconate 10 meq/ Multivitamins 10 ml/Chromium/ Copper/Manganese/ Seleni /Zn 1 ml/ Total Parenteral Nutrition/Amino Acids/Dextrose/ Fat Emulsion Intravenous 1,594.468 ml @ 66.436 m... TPN CONT IV ; Start 11/27/16 at 22:00; Stop 11/28/16 at 21:59; Status Cancel Potassium Chloride/ Magnesium Sulfate/ Calcium Gluconate/ Multivitamins/ Chromium/Copper/ Manganese/Seleni/ Zn/Total Parenteral Nutrition/Amino Acids/ Dextrose/ Fat Emulsion Intravenous (Infuvite Adult/ Multitrace-5 Conc/ Tpn - Tpn Fluid/ Trophamine/ Dextrose 70%-Water Iv So... 1,512 ml @ 63 mls/hr TPN CONT IV Last administered on 11/27/16 21:22; Start 11/27/16 at 22:00; Stop at 21:59; Status DC Nitroglycerin 0.4 mg 0.4 mg STK-MED ONCE SL Last administered on 11/27/16 11: 26; Start 11/27/16 at 11:16; Stop 11/27/16 at 11:17; Status DC Albumin Human (Albuminar) 100 ml @ 100 mls/hr TID IV Last administered on 11/29 08:56; Start 11/27/16 at 12:00; Stop 11/29/16 at 09:59; Status DC Sodium Bicarbonate 50 meq 1X ONCE IV Last administered on 11/27/16 13:24; Start 11/27/16 at 12:45; Stop 11/27/16 at 12:46; Status DC Hydralazine HCl (Apresoline) 10 mg PRN Q4HRS PRN IVP ELEVATED BP, SEE COMMENTS Last administered on 12/03/16 20:18; Start 11/27/16 at 12:45 Metoprolol Tartrate (Lopressor) 5 mg Q6HRS IVP Last administered on 11/27/16 15:40; Start 11/27/16 at 15:30; Stop 11/27/16 at 19:11; Status DC Metoprolol Tartrate 5 mg 5 mg Q6HRS@04,10,16,22 IVP Last administered on 10:07; Start 11/27/16 at 22:00 Nicardipine HCl/ Sodium Chloride (Cardene/Iv Sodium Chloride 0.9% 250ml) 270 ml @ 0 mls/hr CONT PRN IV SEE I/O RECORD Last administered on 11/28/16 01:13; Start 11/27/16 at 20:45; Stop 12/05/16 at 09:17; Status DC Vancomycin HCl 1 each 1 each PRN DAILY PRN MC SEE COMMENTS Last administered on 11/27/16 21:38; Start 11/27/16 at 22:00; Stop 11/28/16 at 08:30; Status DC Vancomycin HCl 2 gm/Sodium Chloride 500 ml @ 250 mls/hr 1X ONCE IV Last administered on 11/27/16 22:57; Start 11/27/16 at 22:00; Stop 11/27/16 at 23:59 ; Status DC Vancomycin HCl/ Sodium Chloride (Iv Sodium Chloride 0.9% 500ml Bag) 500 ml @ 250 mls/hr Q24H IV ; Start 11/28/16 at 22:00; Stop 11/28/16 at 22:00; Status DC Vancomycin HCl 1 each 1X ONCE MC ; Start 11/29/16 at 21:30; Stop 11/29/16 at 21 :30; Status DC Insulin Aspart (Novolog) 0-7 UNITS Q6HRS SQ Last administered on 12/14/16 05:55 ; Start 11/28/16 at 01:00; Stop 12/14/16 at 09:00; Status DC Linezolid 600 mg 600 mg BID PO ; Start 11/28/16 at 09:00; Stop 11/28/16 at 19:45 ; Status DC Pantoprazole Sodium/Sodium Chloride (Protonix Iv/Iv Sodium Chloride 0.9% 100ml) 100 ml @ 10 mls/hr Q10H PRN IV . Last administered on 12/01/16 13:01; Start 11/28/16 at 10:00; Stop 12/01/16 at 15:59; Status DC Ipratropium [place] (Atrovent) 0.5 mg RTQID NEB Last administered on 12/14/16 11:46; Start 11/28/16 at 12:00 Budesonide (Pulmicort) 0.5 mg RTBID NEB Last administered on 12/06/16 07:36; Start 11/28/16 at 20:00; Stop 12/06/16 at 18:19; Status DC Furosemide 40 mg 40 mg 1X ONCE IVP Last administered on 11/28/16 12:15; Start 11/28/16 at 12:15; Stop 11/28/16 at 12:16; Status DC Potassium Chloride/ Magnesium Sulfate/ Calcium Gluconate/ Multivitamins/ Chromium/Copper/ Manganese/Seleni/ Zn/Total Parenteral Nutrition/Amino Acids/ Dextrose/ Fat Emulsion Intravenous (Calcium Gluconate/ Infuvite Adult/ Multitrace-5 Conc/ Tpn - Tpn Fluid/ Trophami... 1,512 ml @ 63 mls/hr TPN CONT IV Last administered on 11/28/16 21:18; Start 11/28/16 at 22:00; Stop at 21:59; Status DC Lidocaine/Sodium Bicarbonate (Buffered Lidocaine 1%) 3 ml 1X ONCE IJ Last administered on 11/28/16 15:45; Start 11/28/16 at 14:45; Stop 11/28/16 at 14:46 ; Status DC Heparin Sodium/ Sodium Chloride 60 unit 1X ONCE IV Last administered on 15:45; Start 11/28/16 at 14:45; Stop 11/28/16 at 14:46; Status DC Heparin Sodium (Porcine) 2500 unit 2,500 unit 1X ONCE INT CAT Last administered on 11/28/16 15:45; Start 11/28/16 at 14:45; Stop 11/28/16 at 14:46 ; Status DC Linezolid 300 ml @ 300 mls/hr Q12HR IV Last administered on 12/01/16 21:13; Start 11/28/16 at 21:00; Stop 12/02/16 at 08:23; Status DC Potassium Chloride/ Potassium Acetate/ Magnesium Sulfate/ Calcium Gluconate/ Multivitamins/ Chromium/Copper/ Manganese/Seleni/ Zn/Total Parenteral Nutrition/ Amino Acids/Dextrose/ Fat Emulsion Intravenous (Calcium Gluconate/ Infuvite Adult/ Multitrace-5 Conc/ Tpn - Tpn Flu... 1,512 ml @ 63 mls/hr TPN CONT IV Last administered on 11/29/16 21:54; Start 11/29/16 at 22:00; Stop 11/30/16 at 21:59; Status DC Iohexol (Omnipaque 300 Mg/ml) 100 ml STK-MED ONCE .ROUTE ; Start 11/29/16 at 09: 12; Stop 11/29/16 at 09:13; Status DC Lidocaine/Sodium Bicarbonate 20 ml 20 ml STK-MED ONCE IJ ; Start 11/29/16 at 09: 12; Stop 11/29/16 at 09:13; Status DC Heparin Sodium/ Sodium Chloride 500 ml @ As Directed STK-MED ONCE .ROUTE ; Start 11/29/16 at 09:12; Stop 11/29/16 at 09:13; Status DC Lidocaine/Sodium Bicarbonate (Buffered Lidocaine 1%) 2 ml 1X ONCE IJ Last administered on 11/29/16 10:22; Start 11/29/16 at 10:00; Stop 11/29/16 at 10:15 ; Status DC Iohexol (Omnipaque 300 Mg/ml) 30 ml 1X ONCE IART Last administered on 10:22; Start 11/29/16 at 10:00; Stop 11/29/16 at 10:15; Status DC Heparin Sodium/ Sodium Chloride 1,000 unit 1X ONCE IV Last administered on 10:21; Start 11/29/16 at 10:00; Stop 11/29/16 at 10:15; Status DC Info 1 each 1 each PRN DAILY PRN MC SEE COMMENTS; Start 11/29/16 at 10:30; Stop 12/01/16 at 10:29; Status DC Heparin Sodium/ Dextrose 500 ml @ 0 mls/hr CONT PRN IV SEE I/O RECORD; Start at 15:15; Status UNV Heparin Sodium/ Dextrose 500 ml @ 0 mls/hr CONT PRN IV SEE I/O RECORD Last administered on 12/04/16 19:23; Start 11/29/16 at 15:15; Stop 12/05/16 at 08:51 ; Status DC Nitroglycerin/ Dextrose 250 ml @ 0 mls/hr CONT PRN IV SEE I/O RECORD Last administered on 11/30/16 10:53; Start 11/30/16 at 10:45; Stop 12/05/16 at 09:17 ; Status DC Potassium Acetate/ Potassium Phosphate/ Magnesium Sulfate/ Calcium Gluconate/ Multivitamins/ Chromium/Copper/ Manganese/Seleni/ Zn/Insulin Human Regular/ Total Parenteral Nutrition/Amino Acids/Dextrose/ Fat Emulsion Intravenous ( Potassium Phosphate/Calcium Gluconate/ Infuvite Asim... 1,472.1 ml @ 63 mls/hr TPN CONT IV Last administered on 11/30/16 21:31; Start 11/30/16 at 22:00; Stop 12/01/16 at 21:21; Status DC Furosemide 40 mg 40 mg 1X ONCE IVP Last administered on 11/30/16 15:02; Start 11/30/16 at 15:00; Stop 11/30/16 at 15:01; Status DC Iron Sucrose/ Sodium Chloride (Venofer/Iv Sodium Chloride 0.9% 250ml) 275 ml @ 78.571 mls/ hr 1X ONCE IV Last administered on 12/01/16 09:58; Start at 09:00; Stop 12/01/16 at 12:29; Status DC Insulin Detemir (Levemir) 12 units QHS SQ Last administered on 12/03/16 21:28 ; Start 12/01/16 at 21:00; Stop 12/04/16 at 16:49; Status DC Info 1 each 1 each PRN DAILY PRN MC SEE COMMENTS Last administered on 12:18; Start 12/01/16 at 10:45; Stop 12/05/16 at 09:17; Status DC Potassium Acetate/ Potassium Phosphate/ Magnesium Sulfate/ Calcium Gluconate/ Multivitamins/ Chromium/Copper/ Manganese/Seleni/ Zn/Insulin Human Regular/ Total Parenteral Nutrition/Amino Acids/Dextrose/ Fat Emulsion Intravenous ( Potassium Phosphate/Calcium Gluconate/ Infuvite Asim... 1,512 ml @ 64.708 mls/ hr TPN CONT IV Last administered on 12/01/16 22:20; Start 12/01/16 at 22:00; Stop 12/02/16 at 21:21; Status DC Pantoprazole Sodium (Protonix Vial) 40 mg DAILYAC IVP Last administered on 12/04 10:37; Start 12/02/16 at 07:30; Stop 12/05/16 at 06:27; Status DC Acetaminophen 650 mg 650 mg 1X PRN PRN PO PRN prior to blood transfusion; Start 12/02/16 at 06:30; Stop 12/03/16 at 06:29; Status DC Potassium Acetate/ Potassium Phosphate/ Magnesium Sulfate/ Calcium Gluconate/ Multivitamins/ Chromium/Copper/ Manganese/Seleni/ Zn/Insulin Human Regular/ Total Parenteral Nutrition/Amino Acids/Dextrose/ Fat Emulsion Intravenous ( Potassium Phosphate/Calcium Gluconate/ Infuvite Asim... 1,512 ml @ 64.708 mls/ hr TPN CONT IV Last administered on 12/02/16 21:46; Start 12/02/16 at 22:00; Stop 12/03/16 at 21:21; Status DC Furosemide (Lasix) 40 mg DAILY IVP Last administered on 12/03/16 08:47; Start 12/02/16 at 12:30; Stop 12/04/16 at 06:30; Status DC Acetaminophen (Acetaminophen Supp) 650 mg PRN Q6HRS PRN [place] MILD PAIN / TEMP; Start 12/02/16 at 13:30; Stop 12/02/16 at 13:36; Status DC Acetaminophen 650 mg 650 mg PRN Q6HRS PRN WI MILD PAIN / TEMP; Start 12/02/16 at 13:45 Potassium Acetate/ Potassium Phosphate/ Magnesium Sulfate/ Calcium Gluconate/ Multivitamins/ Chromium/Copper/ Manganese/Seleni/ Zn/Insulin Human Regular/ Total Parenteral Nutrition/Amino Acids/Dextrose/ Fat Emulsion Intravenous ( Potassium Phosphate/Calcium Gluconate/ Infuvite Asim... 1,512 ml @ 63 mls/hr TPN CONT IV Last administered on 12/03/16 21:05; Start 12/03/16 at 22:00; Stop 12/04/16 at 21:59; Status DC Fentanyl Citrate (Fentanyl 2ml Vial) 25 mcg PRN Q30MIN PRN IV SED; Start at 06:29; Stop 12/05/16 at 09:17; Status DC Ondansetron HCl (Zofran) 4 mg PRN Q6HRS PRN IV NAUSEA/VOMITING; Start 12/04/16 at 06:30 Furosemide (Lasix) 40 mg DAILY IVP Last administered on 12/06/16 10:20; Start 12/04/16 at 06:30; Stop 12/06/16 at 15:12; Status DC Lidocaine HCl 20 ml 20 ml STK-MED ONCE .ROUTE ; Start 12/04/16 at 07:02; Stop at 07:03; Status DC Heparin Sodium/ Sodium Chloride 1,500 ml @ As Directed STK-MED ONCE .ROUTE ; Start 12/04/16 at 07:02; Stop 12/04/16 at 07:03; Status DC Iodixanol (Visipaque 320) 100 ml STK-MED ONCE .ROUTE ; Start 12/04/16 at 07:02; Stop 12/04/16 at 07:03; Status DC Nitroglycerin (Nitroglycerin) 200 mcg STK-MED ONCE .ROUTE ; Start 12/04/16 at 07 :05; Stop 12/04/16 at 07:06; Status DC Verapamil HCl (Verapamil) 5 mg STK-MED ONCE .ROUTE ; Start 12/04/16 at 07:05; Stop 12/04/16 at 07:06; Status DC Midazolam HCl (Versed) 2 mg STK-MED ONCE .ROUTE ; Start 12/04/16 at 07:05; Stop 12/04/16 at 07:06; Status DC Fentanyl Citrate (Fentanyl 2ml Vial) 100 mcg STK-MED ONCE .ROUTE ; Start at 07:05; Stop 12/04/16 at 07:06; Status DC Heparin Sodium (Porcine) 10,000 unit STK-MED ONCE .ROUTE ; Start 12/04/16 at 07: 05; Stop 12/04/16 at 07:06; Status DC Nitroglycerin (Nitroglycerin) 200 mcg STK-MED ONCE .ROUTE ; Start 12/04/16 at 07 :17; Stop 12/04/16 at 07:18; Status DC Verapamil HCl (Verapamil) 5 mg STK-MED ONCE .ROUTE ; Start 12/04/16 at 07:18; Stop 12/04/16 at 07:19; Status DC Nitroglycerin (Nitroglycerin) 200 mcg 1X ONCE IART Last administered on 07:42; Start 12/04/16 at 07:45; Stop 12/04/16 at 07:46; Status DC Verapamil HCl (Verapamil) 2.5 mg 1X ONCE IART Last administered on 12/04/16 07:43; Start 12/04/16 at 07:45; Stop 12/04/16 at 07:46; Status DC Heparin Sodium/ Sodium Chloride 1,000 unit 1X ONCE IART Last administered on 07:43; Start 12/04/16 at 07:45; Stop 12/04/16 at 07:46; Status DC Midazolam HCl (Versed) 0.5 mg 1X ONCE IV Last administered on 12/04/16 07:44 ; Start 12/04/16 at 07:45; Stop 12/04/16 at 07:46; Status DC Fentanyl Citrate (Fentanyl 2ml Vial) 25 mcg 1X ONCE IV Last administered on 07:44; Start 12/04/16 at 07:45; Stop 12/04/16 at 07:46; Status DC Iodixanol (Visipaque 320) 100 ml 1X ONCE IART Last administered on 12/04/16 07:42; Start 12/04/16 at 07:45; Stop 12/04/16 at 07:46; Status DC Lidocaine HCl 20 ml 1X ONCE IJ Last administered on 12/04/16 07:43; Start at 07:45; Stop 12/04/16 at 07:46; Status DC Info 1 each 1 each PRN DAILY PRN MC SEE COMMENTS; Start 12/04/16 at 07:45; Stop 12/06/16 at 07:44; Status DC Potassium Acetate/ Potassium Phosphate/ Magnesium Sulfate/ Calcium Gluconate/ Multivitamins/ Chromium/Copper/ Manganese/Seleni/ Zn/Insulin Human Regular/ Total Parenteral Nutrition/Amino Acids/Dextrose/ Fat Emulsion Intravenous ( Potassium Phosphate/Calcium Gluconate/ Infuvite Asim... 1,512 ml @ 63 mls/hr TPN CONT IV Last administered on 12/04/16 22:47; Start 12/04/16 at 22:00; Stop 12/05/16 at 21:59; Status DC Lidocaine HCl 20 ml 20 ml STK-MED ONCE .ROUTE ; Start 12/04/16 at 12:59; Stop at 13:00; Status DC Heparin Sodium/ Sodium Chloride 1,000 ml @ As Directed STK-MED ONCE .ROUTE ; Start 12/04/16 at 12:59; Stop 12/05/16 at 08:51; Status DC Iodixanol (Visipaque 320) 100 ml STK-MED ONCE .ROUTE ; Start 12/04/16 at 12:59; Stop 12/04/16 at 13:00; Status DC Insulin Detemir (Levemir) 25 units QHS SQ ; Start 12/04/16 at 21:00; Stop at 21:00; Status DC Insulin Detemir (Levemir) 20 units QHS SQ Last administered on 12/13/16 21:28; Start 12/04/16 at 21:00; Stop 12/14/16 at 09:01; Status DC Morphine Sulfate 2 mg PRN Q2HR PRN IV PAIN Last administered on 12/12/16 04:03 ; Start 12/04/16 at 19:15 Morphine Sulfate 4 mg PRN Q2HR PRN IV PAIN; Start 12/04/16 at 19:15; Stop 12/05 at 09:17; Status DC Pantoprazole Sodium (Protonix Vial) 40 mg DAILYAC IVP Last administered on 10:04; Start 12/05/16 at 06:27 Verapamil HCl (Verapamil) 5 mg STK-MED ONCE .ROUTE ; Start 12/04/16 at 07:30; Stop 12/05/16 at 08:38; Status DC Enoxaparin Sodium (Lovenox Per Pharmacy Treatment Dosing) 1 each PRN DAILY PRN MC SEE COMMENTS; Start 12/05/16 at 09:00; Stop 12/09/16 at 13:25; Status DC Enoxaparin Sodium (Lovenox 100mg Syringe) 100 mg Q12HR SQ Last administered on 12/10/16 19:53; Start 12/05/16 at 09:00; Stop 12/11/16 at 08:40; Status DC Info 1 each 1 each PRN DAILY PRN MC SEE COMMENTS Last administered on 12/07/16 12:19; Start 12/05/16 at 10:15; Stop 12/12/16 at 15:42; Status DC Potassium Acetate/ Potassium Phosphate/ Magnesium Sulfate/ Calcium Gluconate/ Multivitamins/ Chromium/Copper/ Manganese/Seleni/ Zn/Insulin Human Regular/ Total Parenteral Nutrition/Amino Acids/Dextrose/ Fat Emulsion Intravenous ( Potassium Phosphate/Calcium Gluconate/ Infuvite Asim... 1,512 ml @ 63 mls/hr TPN CONT IV Last administered on 12/05/16 21:14; Start 12/05/16 at 22:00; Stop 12/06/16 at 21:59; Status DC Barium Sulfate (Varibar Thin Liquid Apple) 148 gm 1X ONCE PO Last administered on 12/05/16 13:56; Start 12/05/16 at 14:00; Stop 12/05/16 at 14:01 ; Status DC Dextrose 12.5 gm 12.5 gm PRN Q15MIN PRN IV SEE COMMENTS; Start 12/05/16 at 14: 19; Stop 12/14/16 at 09:07; Status DC Potassium Acetate/ Potassium Phosphate/ Magnesium Sulfate/ Calcium Gluconate/ Multivitamins/ Chromium/Copper/ Manganese/Seleni/ Zn/Insulin Human Regular/ Total Parenteral Nutrition/Amino Acids/Dextrose/ Fat Emulsion Intravenous ( Potassium Phosphate/Calcium Gluconate/ Infuvite Asim... 1,512 ml @ 63 mls/hr TPN CONT IV Last administered on 12/06/16 20:49; Start 12/06/16 at 22:00; Stop 12/07/16 at 21:59; Status DC Furosemide 20 mg 20 mg DAILY IVP Last administered on 12/08/16 08:37; Start 12/07/16 at 09:00; Stop 12/08/16 at 09:24; Status DC Potassium Acetate/ Potassium Phosphate/ Magnesium Sulfate/ Calcium Gluconate/ Multivitamins/ Chromium/Copper/ Manganese/Seleni/ Zn/Insulin Human Regular/ Total Parenteral Nutrition/Amino Acids/Dextrose/ Fat Emulsion Intravenous ( Potassium Phosphate/Calcium Gluconate/ Infuvite Asim... 1,512 ml @ 63 mls/hr TPN CONT IV Last administered on 12/07/16 20:23; Start 12/07/16 at 22:00; Stop 12/08/16 at 21:59; Status DC Lorazepam 0.5 mg 0.5 mg PRN Q6HRS PRN IV ANXIETY / AGITATION Last administered on 12/14/16 01:49; Start 12/07/16 at 16:30 Dextrose 1,000 ml @ 100 mls/hr Q10H IV Last administered on 12/08/16 09:59; Start 12/08/16 at 09:30; Stop 12/08/16 at 19:29; Status DC Potassium Acetate/ Potassium Phosphate/ Magnesium Sulfate/ Calcium Gluconate/ Multivitamins/ Chromium/Copper/ Manganese/Seleni/ Zn/Insulin Human Regular/ Total Parenteral Nutrition/Amino Acids/Dextrose/ Fat Emulsion Intravenous ( Potassium Phosphate/Calcium Gluconate/ Infuvite Asim... 2,400 ml @ 100 mls/hr TPN CONT IV Last administered on 12/08/16 21:20; Start 12/08/16 at 22:00; Stop 12/09/16 at 21:59; Status DC Temazepam 15 mg 15 mg PRN QHS PRN PO INSOMNIA; Start 12/09/16 at 11:30 Potassium Acetate/ Potassium Phosphate/ Magnesium Sulfate/ Calcium Gluconate/ Multivitamins/ Chromium/Copper/ Manganese/Seleni/ Zn/Insulin Human Regular/ Total Parenteral Nutrition/Amino Acids/Dextrose/ Fat Emulsion Intravenous ( Potassium Phosphate/Calcium Gluconate/ Infuvite Asim... 2,400 ml @ 100 mls/hr TPN CONT IV Last administered on 12/09/16 21:27; Start 12/09/16 at 22:00; Stop 12/10/16 at 21:59; Status DC Lorazepam 1 mg 1 mg 1X ONCE IV Last administered on 12/09/16 21:29; Start 12/09 at 21:30; Stop 12/09/16 at 21:31; Status DC Potassium Acetate/ Potassium Phosphate/ Magnesium Sulfate/ Calcium Gluconate/ Multivitamins/ Chromium/Copper/ Manganese/Seleni/ Zn/Insulin Human Regular/ Total Parenteral Nutrition/Amino Acids/Dextrose/ Fat Emulsion Intravenous ( Potassium Phosphate/Calcium Gluconate/ Infuvite Asim... 2,400 ml @ 100 mls/hr TPN CONT IV Last administered on 12/10/16 22:08; Start 12/10/16 at 22:00; Stop 12/11/16 at 21:59; Status DC Lidocaine/Sodium Bicarbonate (Buffered Lidocaine 1%) 20 ml STK-MED ONCE IJ ; Start 12/10/16 at 14:30; Stop 12/10/16 at 14:31; Status DC Naloxone HCl (Narcan) 0.4 mg STK-MED ONCE .ROUTE ; Start 12/10/16 at 14:45; Stop 12/10/16 at 14:46; Status DC Flumazenil (Romazicon) 0.5 mg STK-MED ONCE IV ; Start 12/10/16 at 14:45; Stop 12/10/16 at 14:46; Status DC Fentanyl Citrate (Fentanyl 2ml Vial) 100 mcg STK-MED ONCE .ROUTE ; Start at 14:45; Stop 12/10/16 at 14:46; Status DC Midazolam HCl (Versed) 2 mg STK-MED ONCE .ROUTE ; Start 12/10/16 at 14:45; Stop 12/10/16 at 14:46; Status DC Lidocaine/Sodium Bicarbonate (Buffered Lidocaine 1%) 20 ml 1X ONCE IJ Last administered on 12/10/16 15:15; Start 12/10/16 at 15:15; Stop 12/10/16 at 15:16; Status DC Midazolam HCl (Versed) 2 mg 1X ONCE IV Last administered on 12/10/16 15:20; Start 12/10/16 at 15:15; Stop 12/10/16 at 15:16; Status DC Fentanyl Citrate 100 mcg 100 mcg 1X ONCE IV Last administered on 12/10/16 15: 20; Start 12/10/16 at 15:15; Stop 12/10/16 at 15:16; Status DC Potassium Acetate/ Potassium Phosphate/ Magnesium Sulfate/ Calcium Gluconate/ Multivitamins/ Chromium/Copper/ Manganese/Seleni/ Zn/Insulin Human Regular/ Total Parenteral Nutrition/Amino Acids/Dextrose/ Fat Emulsion Intravenous ( Potassium Phosphate/Calcium Gluconate/ Infuvite Asim... 2,400 ml @ 100 mls/hr TPN CONT IV Last administered on 12/11/16 23:37; Start 12/11/16 at 22:00; Stop 12/12/16 at 21:59; Status DC Ondansetron HCl (Zofran) 4 mg PRN Q6HRS PRN IV NAUSEA/VOMITING; Start 12/12/16 at 07:00; Stop 12/12/16 at 07:00; Status DC Fentanyl Citrate (Fentanyl 2ml Vial) 25 mcg PRN Q5MIN PRN IV MILD PAIN; Start 12/12/16 at 07:00; Stop 12/12/16 at 07:00; Status DC Fentanyl Citrate (Fentanyl 2ml Vial) 50 mcg PRN Q5MIN PRN IV MODERATE PAIN; Start 12/12/16 at 07:00; Stop 12/12/16 at 07:00; Status DC Morphine Sulfate 1 mg 1 mg PRN Q10MIN PRN IV SEVERE PAIN; Start 12/12/16 at 07: 00; Stop 12/12/16 at 07:00; Status DC Lactated Ringer's (Iv Lactated Ringers) 1,000 ml @ 30 mls/hr Q24H IV ; Start at 07:00; Stop 12/12/16 at 07:00; Status DC Lidocaine HCl 2 ml PRN 1X PRN ID PRIOR TO IV START; Start 12/12/16 at 07:00; Stop 12/12/16 at 07:00; Status DC Hydromorphone HCl (Dilaudid) 0.5 mg PRN Q10MIN PRN IV SEV PAIN, Second choice; Start 12/12/16 at 07:00; Stop 12/12/16 at 07:00; Status DC Prochlorperazine Edisylate 5 mg 5 mg PACU PRN PRN IV NAUSEA, MRX1; Start at 07:00; Stop 12/12/16 at 07:00; Status DC Potassium Acetate 35 meq/Potassium Phosphate 5 mmol/ Magnesium Sulfate 15 meq/ Calcium Gluconate 5 meq/ Multivitamins 10 ml/Chromium/ Copper/Manganese/ Seleni/ Zn 1 ml/ Insulin Human Regular 10 unit/ Total Parenteral Nutrition/Amino Acids/ Dextrose/ Fat Emulsion Intravenous 1,920 ml @ 80 mls/hr TPN CONT IV Last administered on 12/12/16 23:50; Start 12/12/16 at 22:00; Stop 12/13/16 at 21:59; Status DC Potassium Acetate/ Potassium Phosphate/ Magnesium Sulfate/ Calcium Gluconate/ Multivitamins/ Chromium/Copper/ Manganese/Seleni/ Zn/Insulin Human Regular/ Total Parenteral Nutrition/Amino Acids/Dextrose/ Fat Emulsion Intravenous ( Potassium Phosphate/Calcium Gluconate/ Infuvite Asim... 1,920 ml @ 80 mls/hr TPN CONT IV Last administered on 12/13/16 22:15; Start 12/13/16 at 22:00; Stop 12/14/16 at 21:59 Enoxaparin Sodium (Lovenox 100mg Syringe) 90 mg Q12HR SQ Last administered on 12:56; Start 12/13/16 at 12:00; Stop 12/13/16 at 20:27; Status DC Insulin Aspart (Novolog) 0-9 UNITS TIDWMEALS SQ Last administered on 12/14/16 13:08; Start 12/14/16 at 12:00 Dextrose (Dextrose 50%-Water Syringe) 12.5 gm PRN Q15MIN PRN IV SEE COMMENTS; Start 12/14/16 at 09:00 Insulin Detemir 30 units 30 units QHS SQ ; Start 12/14/16 at 21:00 Potassium Acetate/ Potassium Phosphate/ Magnesium Sulfate/ Calcium Gluconate/ Multivitamins/ Chromium/Copper/ Manganese/Seleni/ Zn/Insulin Human Regular/ Total Parenteral Nutrition/Amino Acids/Dextrose/ Fat Emulsion Intravenous ( Potassium Phosphate/Calcium Gluconate/ Infuvite Asim... 1,920 ml @ 80 mls/hr TPN CONT IV ; Start 12/14/16 at 22:00; Stop 12/15/16 at 21:59 Allergies Allergies: Coded Allergies: No Known Drug Allergies (Unverified , 11/24/16) ROS Review of System Patient denies fevers, chills, weight loss, dyspnea, angina, abdominal pain, change in bowels, or dysuria. 14 point review of systems is negative. Physical Exam Physical Examination PHYSICAL EXAMINATION: Vital signs: see above. General appearance is normal and in no acute distress. HEENT: Normocephalic and nontraumatic. Eyes, nose, ears, and throat are unremarkable. Neck is supple. No lymphadenopathy. No bruits are heard over the carotid artery. No crepitus. Mental Status Examination: Alert. Oriented to time, place, and person. Answers questions and follows commends. Pupils are equal round and reactive to light and accommodation. Funduscopic exam: No papilledema. Extraocular movements are intact. Visual field exam shows no defect on the direct confrontation. There is left ptosis, no other focal findings in the face. Uvula in the midline and the soft palate elevated symmetrically. No deviation of the tongue to any direction. Gross hearing is normal. Shoulder shrug normal. Muscle tone is normal. Muscle strength is 5-/5 on left. Deep tendon reflexes are 1+ all around. Plantar reflex is with flexion response bilaterally. Finger-to- nose test performance is accurate. Alternative movements are accurate. Gait not tested. Sensory exam shows no deficits. No cerebellar signs are elicited. Vitals VITALS Vital Signs Date Time Temp Pulse Resp B/P Pulse Ox O2 Delivery O2 Flow Rate FiO2 12/14/16 11:44 98 Nasal Cannula 2.0 12/14/16 10:22 97.8 105 16 132/73 97.8 Labs Labs Laboratory Tests Test 12/12/16 17:02 12/13/16 00:17 12/13/16 06:40 12/13/16 10:56 Glucose (Fingerstick) 171mg/dL (70-99) 184mg/dL (70-99) 215mg/dL (70-99) White Blood Count 11.0x10^3/uL (4.0-11.0) Red Blood Count 2.99x10^6/uL (4.30-5.70) Hemoglobin 9.3g/dL (13.0-17.5) Hematocrit 27.7% (39.0-53.0) Mean Corpuscular Volume 93fL (79-100) Mean Corpuscular Hemoglobin 31pg (25-35) Mean Corpuscular Hemoglobin Concent 34g/dL (31-37) Red Cell Distribution Width 16.3% (11.5-14.5) Platelet Count 351x10^3/uL (140-400) Neutrophils (%) (Auto) 65% (31-73) Lymphocytes (%) (Auto) 11% (24-48) Monocytes (%) (Auto) 13% (0-9) Eosinophils (%) (Auto) 10% (0-3) Basophils (%) (Auto) 1% (0-3) Neutrophils # (Auto) 7.2x10^3uL (1.8-7.7) Lymphocytes # (Auto) 1.2x10^3/uL (1.0-4.8) Monocytes # (Auto) 1.4x10^3/uL (0.0-1.1) Eosinophils # (Auto) 1.1x10^3/uL (0.0-0.7) Basophils # (Auto) 0.1x10^3/uL (0.0-0.2) Segmented Neutrophils % 71% (35-66) Band Neutrophils % 3% (0-9) Lymphocytes % 11% (24-48) Monocytes % 7% (0-10) Eosinophils % 7% (0-5) Myelocytes % 1% (0-0) Platelet Estimate Increased (ADEQUATE) Platelet Clumps, EDTA Present Poikilocytosis Present Sodium Level 137mmol/L (136-145) Potassium Level 4.8mmol/L (3.5-5.1) Chloride Level 104mmol/L (98-107) Carbon Dioxide Level 23mmol/L (21-32) Anion Gap 10 (6-14) Blood Urea Nitrogen 53mg/dL (8-26) Creatinine 1.6mg/dL (0.7-1.3) Estimated GFR (Cockcroft-Gault) 42.8 Glucose Level 198mg/dL (70-99) Calcium Level 8.9mg/dL (8.5-10.1) Test 12/13/16 17:44 12/13/16 23:47 12/14/16 05:30 12/14/16 05:47 Glucose (Fingerstick) 209mg/dL (70-99) 177mg/dL (70-99) 206mg/dL (70-99) White Blood Count 10.1x10^3/uL (4.0-11.0) Red Blood Count 3.04x10^6/uL (4.30-5.70) Hemoglobin 9.2g/dL (13.0-17.5) Hematocrit 28.1% (39.0-53.0) Mean Corpuscular Volume 93fL (79-100) Mean Corpuscular Hemoglobin 30pg (25-35) Mean Corpuscular Hemoglobin Concent 33g/dL (31-37) Red Cell Distribution Width 16.0% (11.5-14.5) Platelet Count 333x10^3/uL (140-400) Neutrophils (%) (Auto) 61% (31-73) Lymphocytes (%) (Auto) 14% (24-48) Monocytes (%) (Auto) 14% (0-9) Eosinophils (%) (Auto) 11% (0-3) Basophils (%) (Auto) 1% (0-3) Neutrophils # (Auto) 6.2x10^3uL (1.8-7.7) Lymphocytes # (Auto) 1.4x10^3/uL (1.0-4.8) Monocytes # (Auto) 1.4x10^3/uL (0.0-1.1) Eosinophils # (Auto) 1.1x10^3/uL (0.0-0.7) Basophils # (Auto) 0.1x10^3/uL (0.0-0.2) Sodium Level 137mmol/L (136-145) Potassium Level 4.8mmol/L (3.5-5.1) Chloride Level 104mmol/L (98-107) Carbon Dioxide Level 23mmol/L (21-32) Anion Gap 10 (6-14) Blood Urea Nitrogen 52mg/dL (8-26) Creatinine 1.7mg/dL (0.7-1.3) Estimated GFR (Cockcroft-Gault) 39.9 Glucose Level 222mg/dL (70-99) Calcium Level 9.1mg/dL (8.5-10.1) Test 12/14/16 11:34 Glucose (Fingerstick) 205mg/dL (70-99) Laboratory Tests Test 12/13/16 17:44 12/13/16 23:47 12/14/16 05:30 12/14/16 05:47 Glucose (Fingerstick) 209mg/dL (70-99) 177mg/dL (70-99) 206mg/dL (70-99) White Blood Count 10.1x10^3/uL (4.0-11.0) Red Blood Count 3.04x10^6/uL (4.30-5.70) Hemoglobin 9.2g/dL (13.0-17.5) Hematocrit 28.1% (39.0-53.0) Mean Corpuscular Volume 93fL (79-100) Mean Corpuscular Hemoglobin 30pg (25-35) Mean Corpuscular Hemoglobin Concent 33g/dL (31-37) Red Cell Distribution Width 16.0% (11.5-14.5) Platelet Count 333x10^3/uL (140-400) Neutrophils (%) (Auto) 61% (31-73) Lymphocytes (%) (Auto) 14% (24-48) Monocytes (%) (Auto) 14% (0-9) Eosinophils (%) (Auto) 11% (0-3) Basophils (%) (Auto) 1% (0-3) Neutrophils # (Auto) 6.2x10^3uL (1.8-7.7) Lymphocytes # (Auto) 1.4x10^3/uL (1.0-4.8) Monocytes # (Auto) 1.4x10^3/uL (0.0-1.1) Eosinophils # (Auto) 1.1x10^3/uL (0.0-0.7) Basophils # (Auto) 0.1x10^3/uL (0.0-0.2) Sodium Level 137mmol/L (136-145) Potassium Level 4.8mmol/L (3.5-5.1) Chloride Level 104mmol/L (98-107) Carbon Dioxide Level 23mmol/L (21-32) Anion Gap 10 (6-14) Blood Urea Nitrogen 52mg/dL (8-26) Creatinine 1.7mg/dL (0.7-1.3) Estimated GFR (Cockcroft-Gault) 39.9 Glucose Level 222mg/dL (70-99) Calcium Level 9.1mg/dL (8.5-10.1) Test 12/14/16 11:34 Glucose (Fingerstick) 205mg/dL (70-99) Images Images CT head: There is a new finding of a large area of wedge-shaped hypodensity involving the right frontal lobe. There is a hyperdense intraparenchymal hemorrhage within it. The hemorrhage portion measures 22 mm. The sulci are effaced in this area but no midline shift is evident. No mass effect upon the adjacent right lateral ventricle is seen. No hydrocephalus is seen. No skull fracture or pneumocephalus is seen. No opacification of the mastoid sinuses or the paranasal sinuses is seen. The maxillary sinuses are not completely seen in this study. 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 Assessment/Plan Assessment/Plan Impression: Hemorrhagic right frontal stroke, prior coagulopathy. He is neurologically stable and neurosurgery has only seen him and deemed him not to require any type of surgical intervention there is no evidence of any seizure activity Recommendations: Anticoagulation is already on hold Repeat CT head tomorrow Eventually consider CT angiogram and/or MRI to rule out underlying neoplasm or vascular abnormality Rehabilitation modalities. I discussed my findings with the patient and his . Thank you for letting me help with the patient's care. ANSON ALBERTO MD Dec 14, 2016 14:58
--- NOTE | 2016-12-14 16:34 | PDOC ---
Provider Note Provider Note RENAL F/U : KE Doing Ok No new issues reported,. VSS Afebrile. RRR Non labored resp. ARF : Cr stable HTN and DM II w CKD : Baseline CR? CARDIAC ARREST. Labs stable CPM. PHAN DEMPSEY MD Dec 14, 2016 16:33
[2016-12-14] MEDS ORDERED: DEXTROSE 70% IV SCH ×10 (22:00)
[2016-12-14] MEDS ORDERED: [UNRECOGNIZED DRUG - OTHER] IV SCH ×10 (22:00)
[2016-12-14] MEDS ORDERED: AMINO ACIDS IV SCH ×10 (22:00)
[2016-12-14] MEDS ORDERED: TOTAL PARENTERAL NUTRITION IV SCH ×10 (22:00)
[2016-12-14] MEDS: INSULIN DETEMIR 300 UNITS/3 ML INSULN.PEN. SQ SCH (22:16)
[2016-12-15] VITALS (19 sets, daily range): BP systolic 106–159; BP diastolic 60–85
[2016-12-15] MEDS: METOPROLOL TARTRATE 5 MG/5 ML VIAL. IVP SCH ×4 (04:00→22:05)
[2016-12-15] MEDS: INSULIN ASPART 300 UNITS/3 ML INSULN.PEN SQ SCH ×3 (05:57→17:09)
[2016-12-15 07:36] LABS: ALBUMIN/GLOBULIN RATIO 0.7 (1.0-1.7); CALCIUM 9.1 mg/dL (8.5-10.1); CREATININE 1.7 mg/dL (0.7-1.3); GFR 39.9; POTASSIUM 4.7 mmol/L (3.5-5.1); TOTAL BILIRUBIN 0.8 mg/dL (0.2-1.0); TOTAL PROTEIN 7.4 g/dL (6.4-8.2)
[2016-12-15 08:02] LABS: BASO # 0.1 x10^3/uL (0.0-0.2); BASO % 1 % (0-3); EOS % 11 % (0-3); HEMATOCRIT 29.8 % (39.0-53.0); HEMOGLOBIN 9.7 g/dL (13.0-17.5); LYMPH # 1.5 x10^3/uL (1.0-4.8); LYMPH % 13 % (24-48); MEAN CORPUSCULAR HEMOGLOBIN 30 pg (25-35); MEAN CORPUSCULAR HGB CONC 33 g/dL (31-37); MEAN CORPUSCULAR VOLUME 92 fL (79-100); MONO % 12 % (0-9); NEUT % 63 % (31-73); PLATELET COUNT 355 x10^3/uL (140-400); RED BLOOD COUNT 3.23 x10^6/uL (4.30-5.70); RED CELL DISTRIBUTION WIDTH 16.1 % (11.5-14.5); WHITE BLOOD COUNT 11.3 x10^3/uL (4.0-11.0)
[2016-12-15] MEDS: IPRATROPIUM BROMIDE 0.5 MG/2.5 ML NEBU. NEB SCH ×4 (08:36→20:29)
--- NOTE | 2016-12-15 08:55 | RAD ---
Portable chest, 12/15/2016: History: Effusion Comparison is made to yesterday's study. A right jugular central venous catheter remains in place extending into the inferior aspect of the superior vena cava. The heart size and pulmonary vascularity are normal. The left chest remains clear. There is a persistent opacity in the right mid chest laterally which probably corresponds to one of the pleural/subpleural anterior chest masses seen on the 12/09/2016 CT study. No new pulmonary abnormality is evident. No pneumothorax or significant free pleural fluid is seen. IMPRESSION: 1. Persistent right mid chest opacity with diagnostic considerations including residual loculated high density pleural fluid, pleural-based neoplasm or pulmonary infarct. 2. No significant change since yesterday's study.
--- NOTE | 2016-12-15 08:56 | PDOC ---
PROGRESS NOTES Chief Complaint Chief Complaint Respiratory arrest 2/2 massive PE Cardiac arrest ASSESSMENT AND PLAN: 1. 2.2 cm hemorrhagic stroke with moderate edema - new (12/14/16) 2. R hemothorax s/p thoracentesis with indwelling chest tube (12/11), transudative, neg culture 3. Bacteremia: Peptostreptococcus sp. on Zosyn (day 14) 4. Leukocytosis: minimal around upper limit of normal, reactive. monitor 5. Respir arrest: recovered. extubated 11/27 6. DVT bilateral LEs - IVC filter placed 11/29. lovenox on hold 2/2 hemorrhagic stroke 7. Acute blood loss anemia: s/p transfusion 8. Dysphagia w/ silent aspiration: failed swallow studies. PEG planned initially for today; on hold with acute issues as above 9. HAMILTON: suspect contrast induced. resolved 10. CKD3: stable 11. DM II : 12. CHF: systolic - EF 35-40% post arrest. cont daily lasix 13. HLD: on statin 14. prophylaxis: PPI Vitals Vitals Vital Signs Date Time Temp Pulse Resp B/P Pulse Ox O2 Delivery O2 Flow Rate FiO2 12/15/16 06:00 98 19 141/70 97 Room Air 12/15/16 04:00 98.2 98.2 12/15/16 00:00 2.0 Physical Exam Physical Exam lethargic General: No acute distress Heart: Regular rate Lungs: Clear Abdomen: Normal bowel sounds, Soft, No tenderness Extremities: Other (1+ edema all extremities) Skin: No rashes, Other (no bruising) Labs LABS Laboratory Tests Test 12/14/16 11:34 12/14/16 19:02 12/14/16 22:07 12/14/16 23:31 Glucose (Fingerstick) 205mg/dL (70-99) 186mg/dL (70-99) 204mg/dL (70-99) 229mg/dL (70-99) Test 12/15/16 05:51 12/15/16 06:42 Glucose (Fingerstick) 232mg/dL (70-99) White Blood Count 11.3x10^3/uL (4.0-11.0) Red Blood Count 3.23x10^6/uL (4.30-5.70) Hemoglobin 9.7g/dL (13.0-17.5) Hematocrit 29.8% (39.0-53.0) Mean Corpuscular Volume 92fL (79-100) Mean Corpuscular Hemoglobin 30pg (25-35) Mean Corpuscular Hemoglobin Concent 33g/dL (31-37) Red Cell Distribution Width 16.1% (11.5-14.5) Platelet Count 355x10^3/uL (140-400) Neutrophils (%) (Auto) 63% (31-73) Lymphocytes (%) (Auto) 13% (24-48) Monocytes (%) (Auto) 12% (0-9) Eosinophils (%) (Auto) 11% (0-3) Basophils (%) (Auto) 1% (0-3) Neutrophils # (Auto) 7.2x10^3uL (1.8-7.7) Lymphocytes # (Auto) 1.5x10^3/uL (1.0-4.8) Monocytes # (Auto) 1.4x10^3/uL (0.0-1.1) Eosinophils # (Auto) 1.2x10^3/uL (0.0-0.7) Basophils # (Auto) 0.1x10^3/uL (0.0-0.2) Sodium Level 136mmol/L (136-145) Potassium Level 4.7mmol/L (3.5-5.1) Chloride Level 102mmol/L (98-107) Carbon Dioxide Level 21mmol/L (21-32) Anion Gap 13 (6-14) Blood Urea Nitrogen 51mg/dL (8-26) Creatinine 1.7mg/dL (0.7-1.3) Estimated GFR (Cockcroft-Gault) 39.9 BUN/Creatinine Ratio 30 (6-20) Glucose Level 221mg/dL (70-99) Calcium Level 9.1mg/dL (8.5-10.1) Total Bilirubin 0.8mg/dL (0.2-1.0) Aspartate Amino Transf (AST/SGOT) 32U/L (15-37) Alanine Aminotransferase (ALT/SGPT) 54U/L (16-63) Alkaline Phosphatase 323U/L (46-116) Total Protein 7.4g/dL (6.4-8.2) Albumin 3.0g/dL (3.4-5.0) Albumin/Globulin Ratio 0.7 (1.0-1.7) Review of Systems Review of Systems c/o 'ice in his neck and back', pain. DAHLIA PETERSON MD Dec 15, 2016 08:56
[2016-12-15] MEDS: ASPIRIN 300 MG SUPP.RECT PR SCH (09:00)
--- NOTE | 2016-12-15 09:19 | PDOC ---
SUBJECTIVE Subjective Pt seen/examined. Neuro appears stable Right frontal ICH. CT head this AM pending. OBJECTIVE Vital Signs Vital Signs Date Time Temp Pulse Resp B/P Pulse Ox O2 Delivery O2 Flow Rate FiO2 12/15/16 08:37 97 Nasal Cannula 2.0 12/15/16 08:00 Room Air 12/15/16 08:00 97.9 102 18 134/73 97 Room Air 97.9 12/15/16 07:00 106 22 159/75 97 Room Air 12/15/16 06:00 98 19 141/70 97 Room Air 12/15/16 05:00 102 19 106/85 97 Room Air 12/15/16 04:00 98.2 100 17 108/72 97 Room Air 98.2 12/15/16 04:00 Room Air 12/15/16 04:00 99 101/75 12/15/16 03:00 103 20 138/66 96 Room Air 12/15/16 02:00 94 20 120/76 95 Room Air 12/15/16 01:00 100 20 142/67 97 Room Air 12/15/16 00:00 Room Air 2.0 12/15/16 00:00 87 20 120/66 99 Room Air 12/14/16 23:00 98.1 100 20 121/73 98 Room Air 98.1 12/14/16 22:13 102 136/82 12/14/16 22:00 96 20 136/83 96 Room Air 2.0 12/14/16 21:01 97 Nasal Cannula 2.0 12/14/16 21:00 100 20 127/70 99 Nasal Cannula 2.0 12/14/16 20:00 96 20 133/80 99 Nasal Cannula 2.0 12/14/16 19:45 97.8 100 20 134/67 99 Nasal Cannula 2.0 97.8 12/14/16 19:45 Nasal Cannula 2.0 12/14/16 18:00 111 120/74 100 Nasal Cannula 2.0 12/14/16 17:00 97 Nasal Cannula 2.0 12/14/16 17:00 102 19 134/67 100 Nasal Cannula 2.0 12/14/16 16:30 100 133/66 98 Nasal Cannula 2.0 12/14/16 16:00 98.1 92 147/62 100 Nasal Cannula 2.0 98.1 12/14/16 15:30 92 18 131/66 98 Nasal Cannula 2.0 12/14/16 15:00 92 17 119/64 97 Nasal Cannula 2.0 12/14/16 14:30 94 113/67 100 Nasal Cannula 2.0 12/14/16 14:00 96 18 120/68 98 Nasal Cannula 2.0 12/14/16 11:44 98 Nasal Cannula 2.0 12/14/16 10:22 97.8 105 16 132/73 99 Nasal Cannula 1.0 97.8 12/14/16 10:07 105 132/73 I & O Intake and Output 12/15/16 06:59 Output Total 1890 ml Balance -1890 ml Output Urine Total 1890 ml # Bowel Movements 1 COMMENT Lab Laboratory Tests Test 12/14/16 11:34 12/14/16 19:02 12/14/16 22:07 12/14/16 23:31 Glucose (Fingerstick) 205mg/dL (70-99) 186mg/dL (70-99) 204mg/dL (70-99) 229mg/dL (70-99) Test 12/15/16 05:51 12/15/16 06:42 Glucose (Fingerstick) 232mg/dL (70-99) White Blood Count 11.3x10^3/uL (4.0-11.0) Red Blood Count 3.23x10^6/uL (4.30-5.70) Hemoglobin 9.7g/dL (13.0-17.5) Hematocrit 29.8% (39.0-53.0) Mean Corpuscular Volume 92fL (79-100) Mean Corpuscular Hemoglobin 30pg (25-35) Mean Corpuscular Hemoglobin Concent 33g/dL (31-37) Red Cell Distribution Width 16.1% (11.5-14.5) Platelet Count 355x10^3/uL (140-400) Neutrophils (%) (Auto) 63% (31-73) Lymphocytes (%) (Auto) 13% (24-48) Monocytes (%) (Auto) 12% (0-9) Eosinophils (%) (Auto) 11% (0-3) Basophils (%) (Auto) 1% (0-3) Neutrophils # (Auto) 7.2x10^3uL (1.8-7.7) Lymphocytes # (Auto) 1.5x10^3/uL (1.0-4.8) Monocytes # (Auto) 1.4x10^3/uL (0.0-1.1) Eosinophils # (Auto) 1.2x10^3/uL (0.0-0.7) Basophils # (Auto) 0.1x10^3/uL (0.0-0.2) Sodium Level 136mmol/L (136-145) Potassium Level 4.7mmol/L (3.5-5.1) Chloride Level 102mmol/L (98-107) Carbon Dioxide Level 21mmol/L (21-32) Anion Gap 13 (6-14) Blood Urea Nitrogen 51mg/dL (8-26) Creatinine 1.7mg/dL (0.7-1.3) Estimated GFR (Cockcroft-Gault) 39.9 BUN/Creatinine Ratio 30 (6-20) Glucose Level 221mg/dL (70-99) Calcium Level 9.1mg/dL (8.5-10.1) Total Bilirubin 0.8mg/dL (0.2-1.0) Aspartate Amino Transf (AST/SGOT) 32U/L (15-37) Alanine Aminotransferase (ALT/SGPT) 54U/L (16-63) Alkaline Phosphatase 323U/L (46-116) Total Protein 7.4g/dL (6.4-8.2) Albumin 3.0g/dL (3.4-5.0) Albumin/Globulin Ratio 0.7 (1.0-1.7) JT CATALAN MD Dec 15, 2016 09:19
[2016-12-15] MEDS: PANTOPRAZOLE IV PUSH 40 MG VIAL. IVP SCH (09:27)
--- NOTE | 2016-12-15 10:23 | PDOC ---
Subjective: Subjective: Onc f/u- DVT/ PE, anemia Pt very fatigued, unchanged. Reviewed records from this weekend- New hemorrhagic stroke, neurologic sx improved according to family/ nursing, no apparent changes this AM. Objective: Vital Signs: Vital Signs Date Time Temp Pulse Resp B/P Pulse Ox O2 Delivery O2 Flow Rate FiO2 12/15/16 09:30 87 16 128/76 97 Room Air 12/15/16 08:37 2.0 12/15/16 08:00 97.9 97.9 Physical Exam: General: Alert, No acute distress, Other (very fatigued) Lungs: Clear to auscultation, Normal air movement Neuro: Other (able to follow commands) Psych/Mental Status: Mood NL, Other Labs/Imaging: CBC has remained unchanged CT head- New hemorrhagic CVA Assessment/Plan A/P: 1. Bilateral DVT/ PE- S/p IVC. Due to hemothorax followed by hemorrhagic CVA ( which occurred even when pt was off lovenox), anticoagulation must be DC'ed permanently. 2. Anemia due to critical illness. No further evidence of GI bleed. Hgb has actually been improving. 3. S/p cardiac arrest, no clear cardiac cause, likely to due PE. 4. CKD- stable 5. Dysphagia- PEG possibly in future 6. Hemorrhagic CVA- Clinically improved. Neurology/ NS followed. D/W nurse. EVELYN LABOY DO Dec 15, 2016 10:23
--- NOTE | 2016-12-15 10:43 | PDOC ---
Renal-Progress Notes Subjective Notes Notes NONE History of Present Illness Hx of present illness NO CHANGE Vitals Vitals Vital Signs Date Time Temp Pulse Resp B/P Pulse Ox O2 Delivery O2 Flow Rate FiO2 12/15/16 10:00 91 16 135/80 98 Room Air 12/15/16 08:37 2.0 12/15/16 08:00 97.9 97.9 Weight Weight [ ] I.O. Intake and Output Intake and Output 12/15/16 07:00 Output Total 1890 ml Balance -1890 ml Output Urine Total 1890 ml # Bowel Movements 1 Labs Labs Laboratory Tests Test 12/14/16 11:34 12/14/16 19:02 12/14/16 22:07 12/14/16 23:31 Glucose (Fingerstick) 205mg/dL (70-99) 186mg/dL (70-99) 204mg/dL (70-99) 229mg/dL (70-99) Test 12/15/16 05:51 12/15/16 06:42 Glucose (Fingerstick) 232mg/dL (70-99) White Blood Count 11.3x10^3/uL (4.0-11.0) Red Blood Count 3.23x10^6/uL (4.30-5.70) Hemoglobin 9.7g/dL (13.0-17.5) Hematocrit 29.8% (39.0-53.0) Mean Corpuscular Volume 92fL (79-100) Mean Corpuscular Hemoglobin 30pg (25-35) Mean Corpuscular Hemoglobin Concent 33g/dL (31-37) Red Cell Distribution Width 16.1% (11.5-14.5) Platelet Count 355x10^3/uL (140-400) Neutrophils (%) (Auto) 63% (31-73) Lymphocytes (%) (Auto) 13% (24-48) Monocytes (%) (Auto) 12% (0-9) Eosinophils (%) (Auto) 11% (0-3) Basophils (%) (Auto) 1% (0-3) Neutrophils # (Auto) 7.2x10^3uL (1.8-7.7) Lymphocytes # (Auto) 1.5x10^3/uL (1.0-4.8) Monocytes # (Auto) 1.4x10^3/uL (0.0-1.1) Eosinophils # (Auto) 1.2x10^3/uL (0.0-0.7) Basophils # (Auto) 0.1x10^3/uL (0.0-0.2) Sodium Level 136mmol/L (136-145) Potassium Level 4.7mmol/L (3.5-5.1) Chloride Level 102mmol/L (98-107) Carbon Dioxide Level 21mmol/L (21-32) Anion Gap 13 (6-14) Blood Urea Nitrogen 51mg/dL (8-26) Creatinine 1.7mg/dL (0.7-1.3) Estimated GFR (Cockcroft-Gault) 39.9 BUN/Creatinine Ratio 30 (6-20) Glucose Level 221mg/dL (70-99) Calcium Level 9.1mg/dL (8.5-10.1) Total Bilirubin 0.8mg/dL (0.2-1.0) Aspartate Amino Transf (AST/SGOT) 32U/L (15-37) Alanine Aminotransferase (ALT/SGPT) 54U/L (16-63) Alkaline Phosphatase 323U/L (46-116) Total Protein 7.4g/dL (6.4-8.2) Albumin 3.0g/dL (3.4-5.0) Albumin/Globulin Ratio 0.7 (1.0-1.7) Micro Micro Microbiology 11/28/16 Blood Culture - Final, Complete NO GROWTH AFTER 5 DAYS 12/10/16 Anaerobic/Aerobic Culture - Final, Complete 12/10/16 Anaerobic Culture Result 1 (ROSIE) - Final, Complete 12/10/16 Aerobic Culture - Final, Complete 12/10/16 Aerobic Culture Result 1 (ROSIE) - Final, Complete 11/24/16 Stool Culture - Final, Complete 11/24/16 Stool Culture Result 1 (ROSIE) - Final, Complete 11/24/16 Campylobacter Antigen Assay - Final, Complete 11/24/16 Campylobactor Result 1 - Final, Complete 11/24/16 Shiga Toxin Test - Final, Complete 12/09/16 Urine Culture - Final, Complete 12/09/16 Urine Culture Result 1 (ROSIE) - Final, Complete Physical Exam General Appearance: no apparent distress Skin: warm Respiratory: decreased breath sounds Heart: S1S2 Abdomen: soft, bowel sounds present Neurology: alert, oriented, follow commands, confused (intermittent ) Assessment Assessment IMP HAMILTON-RESOLVED CKD STAGE WITH CR OF 1.7 RESP FAILURE PE/DVT ANEMIA RIGHT FRONTAL CVA HTN-ADEQUATELY CONTROLLED PLAN CONT TPN CONTROL BP WILL FOLLOW LABS IN AM LEFTY MONTERO MD Dec 15, 2016 10:43
--- NOTE | 2016-12-15 13:21 | PDOC ---
Subjective: Subjective: Denies pain. Objective: Objective: No GI concerns per RN. Vital Signs: Vital Signs Date Time Temp Pulse Resp B/P Pulse Ox O2 Delivery O2 Flow Rate FiO2 12/15/16 12:01 100 Nasal Cannula 2.0 12/15/16 12:00 97.9 98 22 127/68 97.9 Labs: Laboratory Tests Test 12/14/16 19:02 12/14/16 22:07 12/14/16 23:31 12/15/16 05:51 Glucose (Fingerstick) 186mg/dL 204mg/dL 229mg/dL 232mg/dL Test 12/15/16 06:42 12/15/16 11:48 White Blood Count 11.3x10^3/uL Red Blood Count 3.23x10^6/uL Hemoglobin 9.7g/dL Hematocrit 29.8% Mean Corpuscular Volume 92fL Mean Corpuscular Hemoglobin 30pg Mean Corpuscular Hemoglobin Concent 33g/dL Red Cell Distribution Width 16.1% Platelet Count 355x10^3/uL Neutrophils (%) (Auto) 63% Lymphocytes (%) (Auto) 13% Monocytes (%) (Auto) 12% Eosinophils (%) (Auto) 11% Basophils (%) (Auto) 1% Neutrophils # (Auto) 7.2x10^3uL Lymphocytes # (Auto) 1.5x10^3/uL Monocytes # (Auto) 1.4x10^3/uL Eosinophils # (Auto) 1.2x10^3/uL Basophils # (Auto) 0.1x10^3/uL Sodium Level 136mmol/L Potassium Level 4.7mmol/L Chloride Level 102mmol/L Carbon Dioxide Level 21mmol/L Anion Gap 13 Blood Urea Nitrogen 51mg/dL Creatinine 1.7mg/dL Estimated GFR (Cockcroft-Gault) 39.9 BUN/Creatinine Ratio 30 Glucose Level 221mg/dL Calcium Level 9.1mg/dL Total Bilirubin 0.8mg/dL Aspartate Amino Transf (AST/SGOT) 32U/L Alanine Aminotransferase (ALT/SGPT) 54U/L Alkaline Phosphatase 323U/L Total Protein 7.4g/dL Albumin 3.0g/dL Albumin/Globulin Ratio 0.7 Glucose (Fingerstick) 200mg/dL PE: GEN: NAD LUNGS: CTAB HEART: RRR ABD: S/ND/NT NEURO/PSYCH: a little confused A/P: Hemorrhagic stroke Dysphagia -cardiac arrest/resp failure/intubation -w/ silent aspiration, on TPN, on PPI -PEG on hold Anemia - stable -- PEG on hold w/ ongoing issues as above. YAMEL CUEVAS Dec 15, 2016 13:20
--- NOTE | 2016-12-15 14:00 | RAD ---
CT scan of the head without contrast 12/15/2016 Clinical History: Follow-up intracranial hemorrhage. Technique: Unenhanced, contiguous, 5 mm axial sections were obtained through the head. One or more of the following individualized dose reduction techniques were utilized for this study: 1. Automated exposure control. 2. Adjustment of the mA and/or kV according to patient size. 3. Use of iterative reconstruction technique. Findings: Comparison study is dated 12/14/2016. There is generalized parenchymal atrophy. Small scattered areas of decreased attenuation are seen within the periventricular and subcortical white matter of both cerebral hemispheres consistent with areas of small vessel ischemic disease. A rounded area of increased attenuation is involving the right frontal lobe consistent with the patient's history of intraparenchymal hemorrhage. This measures 1.4 cm in greatest diameter. It has not significantly changed when compared to the previous examination. There is surrounding edema and associated mass effect, unchanged. No new areas of intracranial hemorrhage is noted. No extra-axial fluid collection is seen. No skull fracture is noted. Impression: Stable CT appearance of the acute hematoma involving the right frontal lobe. There is surrounding edema and associated mass effect, unchanged.
[2016-12-15] MEDS: TPN PER PHARMACY MC PRN (14:06)
--- NOTE | 2016-12-15 14:16 | PDOC ---
PULMONARY PROGRESS NOTES Subjective pt with no resp complaints Vitals Vital Signs Date Time Temp Pulse Resp B/P Pulse Ox O2 Delivery O2 Flow Rate FiO2 12/15/16 13:00 98 14 126/74 98 Room Air 12/15/16 12:01 2.0 12/15/16 12:00 97.9 97.9 General: Alert, No acute distress HEENT: Other (nc at, perrl, nose clear, shallow oropharynx. neck, + jvd, no thyromegaly, no lap) Lungs: Clear Cardiovascular: S1, S2 Abdomen: Soft, Non-tender, Other (no mass) Neuro Exam: Alert Extremities: Other (2=edema) Skin: Warm Labs Laboratory Tests Test 12/13/16 17:44 12/13/16 23:47 12/14/16 05:30 12/14/16 05:47 Glucose (Fingerstick) 209mg/dL (70-99) 177mg/dL (70-99) 206mg/dL (70-99) White Blood Count 10.1x10^3/uL (4.0-11.0) Red Blood Count 3.04x10^6/uL (4.30-5.70) Hemoglobin 9.2g/dL (13.0-17.5) Hematocrit 28.1% (39.0-53.0) Mean Corpuscular Volume 93fL (79-100) Mean Corpuscular Hemoglobin 30pg (25-35) Mean Corpuscular Hemoglobin Concent 33g/dL (31-37) Red Cell Distribution Width 16.0% (11.5-14.5) Platelet Count 333x10^3/uL (140-400) Neutrophils (%) (Auto) 61% (31-73) Lymphocytes (%) (Auto) 14% (24-48) Monocytes (%) (Auto) 14% (0-9) Eosinophils (%) (Auto) 11% (0-3) Basophils (%) (Auto) 1% (0-3) Neutrophils # (Auto) 6.2x10^3uL (1.8-7.7) Lymphocytes # (Auto) 1.4x10^3/uL (1.0-4.8) Monocytes # (Auto) 1.4x10^3/uL (0.0-1.1) Eosinophils # (Auto) 1.1x10^3/uL (0.0-0.7) Basophils # (Auto) 0.1x10^3/uL (0.0-0.2) Sodium Level 137mmol/L (136-145) Potassium Level 4.8mmol/L (3.5-5.1) Chloride Level 104mmol/L (98-107) Carbon Dioxide Level 23mmol/L (21-32) Anion Gap 10 (6-14) Blood Urea Nitrogen 52mg/dL (8-26) Creatinine 1.7mg/dL (0.7-1.3) Estimated GFR (Cockcroft-Gault) 39.9 Glucose Level 222mg/dL (70-99) Calcium Level 9.1mg/dL (8.5-10.1) Test 12/14/16 11:34 12/14/16 19:02 12/14/16 22:07 12/14/16 23:31 Glucose (Fingerstick) 205mg/dL (70-99) 186mg/dL (70-99) 204mg/dL (70-99) 229mg/dL (70-99) Test 12/15/16 05:51 12/15/16 06:42 12/15/16 11:48 Glucose (Fingerstick) 232mg/dL (70-99) 200mg/dL (70-99) White Blood Count 11.3x10^3/uL (4.0-11.0) Red Blood Count 3.23x10^6/uL (4.30-5.70) Hemoglobin 9.7g/dL (13.0-17.5) Hematocrit 29.8% (39.0-53.0) Mean Corpuscular Volume 92fL (79-100) Mean Corpuscular Hemoglobin 30pg (25-35) Mean Corpuscular Hemoglobin Concent 33g/dL (31-37) Red Cell Distribution Width 16.1% (11.5-14.5) Platelet Count 355x10^3/uL (140-400) Neutrophils (%) (Auto) 63% (31-73) Lymphocytes (%) (Auto) 13% (24-48) Monocytes (%) (Auto) 12% (0-9) Eosinophils (%) (Auto) 11% (0-3) Basophils (%) (Auto) 1% (0-3) Neutrophils # (Auto) 7.2x10^3uL (1.8-7.7) Lymphocytes # (Auto) 1.5x10^3/uL (1.0-4.8) Monocytes # (Auto) 1.4x10^3/uL (0.0-1.1) Eosinophils # (Auto) 1.2x10^3/uL (0.0-0.7) Basophils # (Auto) 0.1x10^3/uL (0.0-0.2) Sodium Level 136mmol/L (136-145) Potassium Level 4.7mmol/L (3.5-5.1) Chloride Level 102mmol/L (98-107) Carbon Dioxide Level 21mmol/L (21-32) Anion Gap 13 (6-14) Blood Urea Nitrogen 51mg/dL (8-26) Creatinine 1.7mg/dL (0.7-1.3) Estimated GFR (Cockcroft-Gault) 39.9 BUN/Creatinine Ratio 30 (6-20) Glucose Level 221mg/dL (70-99) Calcium Level 9.1mg/dL (8.5-10.1) Total Bilirubin 0.8mg/dL (0.2-1.0) Aspartate Amino Transf (AST/SGOT) 32U/L (15-37) Alanine Aminotransferase (ALT/SGPT) 54U/L (16-63) Alkaline Phosphatase 323U/L (46-116) Total Protein 7.4g/dL (6.4-8.2) Albumin 3.0g/dL (3.4-5.0) Albumin/Globulin Ratio 0.7 (1.0-1.7) Laboratory Tests Test 12/14/16 19:02 12/14/16 22:07 12/14/16 23:31 12/15/16 05:51 Glucose (Fingerstick) 186mg/dL (70-99) 204mg/dL (70-99) 229mg/dL (70-99) 232mg/dL (70-99) Test 12/15/16 06:42 12/15/16 11:48 White Blood Count 11.3x10^3/uL (4.0-11.0) Red Blood Count 3.23x10^6/uL (4.30-5.70) Hemoglobin 9.7g/dL (13.0-17.5) Hematocrit 29.8% (39.0-53.0) Mean Corpuscular Volume 92fL (79-100) Mean Corpuscular Hemoglobin 30pg (25-35) Mean Corpuscular Hemoglobin Concent 33g/dL (31-37) Red Cell Distribution Width 16.1% (11.5-14.5) Platelet Count 355x10^3/uL (140-400) Neutrophils (%) (Auto) 63% (31-73) Lymphocytes (%) (Auto) 13% (24-48) Monocytes (%) (Auto) 12% (0-9) Eosinophils (%) (Auto) 11% (0-3) Basophils (%) (Auto) 1% (0-3) Neutrophils # (Auto) 7.2x10^3uL (1.8-7.7) Lymphocytes # (Auto) 1.5x10^3/uL (1.0-4.8) Monocytes # (Auto) 1.4x10^3/uL (0.0-1.1) Eosinophils # (Auto) 1.2x10^3/uL (0.0-0.7) Basophils # (Auto) 0.1x10^3/uL (0.0-0.2) Sodium Level 136mmol/L (136-145) Potassium Level 4.7mmol/L (3.5-5.1) Chloride Level 102mmol/L (98-107) Carbon Dioxide Level 21mmol/L (21-32) Anion Gap 13 (6-14) Blood Urea Nitrogen 51mg/dL (8-26) Creatinine 1.7mg/dL (0.7-1.3) Estimated GFR (Cockcroft-Gault) 39.9 BUN/Creatinine Ratio 30 (6-20) Glucose Level 221mg/dL (70-99) Calcium Level 9.1mg/dL (8.5-10.1) Total Bilirubin 0.8mg/dL (0.2-1.0) Aspartate Amino Transf (AST/SGOT) 32U/L (15-37) Alanine Aminotransferase (ALT/SGPT) 54U/L (16-63) Alkaline Phosphatase 323U/L (46-116) Total Protein 7.4g/dL (6.4-8.2) Albumin 3.0g/dL (3.4-5.0) Albumin/Globulin Ratio 0.7 (1.0-1.7) Glucose (Fingerstick) 200mg/dL (70-99) Comments cxr reviewed, 4/8 resolved right effusion, no ptx Impression . 1. Acute respiratory failure secondary to [id number] cardiopulmonary arrest. 2. Hyperlipidemia. 3. Diabetes. 4. Positive venous Doppler/ high prob V/Q, popliteal nonocclusive thrombus. 5. Metabolic acidosis sec to code, improved. 6. PE, Bilateral DVT/ PE- S/p IVC. 7. Ischemia CM 35-40%, cath no significant lesion 8. Acute kidney injury 9. anemia, 10. NEW CVA hemorrhagic 11. right effusion, bloody,doubt hemothorax, improved post thoracentesis, suspect related to pulmonary infarct Plan . s/p right thoracentesis/ chest tube to suction.(exudate, gram stain neg) monitor output In the setting of ongoing anemia and recent hemorrhagic effusion and CVA no anticoagulation cath report noted pt ot resp status is compensated follow results of pleural fluid cytology MC GUILLORY MD Dec 15, 2016 14:16
--- NOTE | 2016-12-15 16:21 | PDOC2 ---
PALLIATIVE CARE Palliative Care Note Palliative Care Consult requested by Dr. Squires Information obtained from record, staff and family. Diagnosis: Cardiac arrest 11/24 extubated 11/27; ; ICH 12/14/2016; CHF EF 35-40%; CKD 3. (suspect contrast induced) Patient alert. Spoke with patient and . Plan for PEG secondary to dysphagia. Family meeting arranged for 9am tomorrow. Code Status: Full Code. KALI WASHINGTON Dec 15, 2016 16:20
--- NOTE | 2016-12-15 17:24 | PDOC ---
PROGRESS NOTES Recommendation/Plan Recommendation/Plan IMPRESSION: Right frontal lobe hematoma with surround edema and mass effect. S/p cardiac arrest , VT. Metabolic encephalopathy. Hypoxia encephalopathy. Respiratory failure. Pleural effusion? Pulmonary infract? PE ? DVT CAD RECOMMENDATIONS/PLAN: Continue Medical treatment. Avoid anti-coagulant at the present time. Keppra if has seizure. Continue monitoring neurological status. Discussed with his at bedside. PAST MEDICAL AND SURGICAL HISTORY: Please see H&P ALLERGY: Reviewed. MEDICATIONS: Refer to MAR REVIEW OF SYSTEMS: Refer to PMH and PSH. PHYSICAL EXAMINATION: General appearance in subacute distress. HEENT: Normocephalic and nontraumatic. Eyes, nose, ears, and throat are unremarkable. Neck is supple. No lymphadenopathy. No Crepitus. Cardiovascular: S1, S2, regular rate and rhythm. Pulmonary: On vent. Abdomen: Bowel sounds are positive. Extremities: No rash, lesions, or edema. No restriction of range of motion NEUROLOGICAL EXAMINATION: Minimal response. On vent. Not oriented to time, place and person. PERRL. EOMI not elicited. CN: no focal findings. Muscle tone: decreased. Muscle strength: Movements noted to stimuli. DTR: 1-2 Plantar reflex: Neutral response bilaterally Gait: not examined in bed. Sensory exam: no acute findings. Not able to access cerebellar signs due to unable to follow commands. Objective Objective Vital Signs Date Time Temp Pulse Resp B/P Pulse Ox O2 Delivery O2 Flow Rate FiO2 12/15/16 16:59 98 135/72 12/15/16 16:11 98 Room Air 12/15/16 15:00 19 12/15/16 12:01 2.0 12/15/16 12:00 97.9 97.9 Intake and Output 12/15/16 07:00 Output Total 1890 ml Balance -1890 ml Output Urine Total 1890 ml # Bowel Movements 1 Vitals Signs Vitals VS - Last 72 Hours, by Label Date Time Temp Pulse Resp B/P Pulse Ox O2 Delivery O2 Flow Rate FiO2 12/15/16 16:59 98 135/72 12/15/16 16:11 98 Room Air 12/15/16 15:00 100 19 122/65 98 Room Air 12/15/16 14:00 102 18 142/73 98 Room Air 12/15/16 13:00 98 14 126/74 98 Room Air 12/15/16 12:01 100 Nasal Cannula 2.0 12/15/16 12:00 97.9 98 22 127/68 99 Room Air 97.9 12/15/16 12:00 Room Air 12/15/16 11:00 97 20 142/80 98 Room Air 12/15/16 10:00 91 16 135/80 98 Room Air 12/15/16 09:30 87 16 128/76 97 Room Air 12/15/16 09:27 101 111/70 12/15/16 09:00 99 17 111/70 98 Room Air 12/15/16 08:37 97 Nasal Cannula 2.0 12/15/16 08:00 Room Air 12/15/16 08:00 97.9 102 18 134/73 97 Room Air 97.9 12/15/16 07:00 106 22 159/75 97 Room Air 12/15/16 06:00 98 19 141/70 97 Room Air 12/15/16 05:00 102 19 106/85 97 Room Air 12/15/16 04:00 98.2 100 17 108/72 97 Room Air 98.2 12/15/16 04:00 Room Air 12/15/16 04:00 99 101/75 12/15/16 03:00 103 20 138/66 96 Room Air 12/15/16 02:00 94 20 120/76 95 Room Air 12/15/16 01:00 100 20 142/67 97 Room Air 12/15/16 00:00 Room Air 2.0 12/15/16 00:00 87 20 120/66 99 Room Air 12/14/16 23:00 98.1 100 20 121/73 98 Room Air 98.1 12/14/16 22:13 102 136/82 12/14/16 22:00 96 20 136/83 96 Room Air 2.0 12/14/16 21:01 97 Nasal Cannula 2.0 12/14/16 21:00 100 20 127/70 99 Nasal Cannula 2.0 12/14/16 20:00 96 20 133/80 99 Nasal Cannula 2.0 12/14/16 19:45 97.8 100 20 134/67 99 Nasal Cannula 2.0 97.8 12/14/16 19:45 Nasal Cannula 2.0 12/14/16 18:00 111 120/74 100 Nasal Cannula 2.0 12/14/16 17:00 97 Nasal Cannula 2.0 12/14/16 17:00 102 19 134/67 100 Nasal Cannula 2.0 12/14/16 16:30 100 133/66 98 Nasal Cannula 2.0 12/14/16 16:00 98.1 92 147/62 100 Nasal Cannula 2.0 98.1 12/14/16 15:30 92 18 131/66 98 Nasal Cannula 2.0 12/14/16 15:00 92 17 119/64 97 Nasal Cannula 2.0 12/14/16 14:30 94 113/67 100 Nasal Cannula 2.0 12/14/16 14:00 96 18 120/68 98 Nasal Cannula 2.0 12/14/16 11:44 98 Nasal Cannula 2.0 12/14/16 10:22 97.8 105 16 132/73 99 Nasal Cannula 1.0 97.8 12/14/16 10:07 105 132/73 12/14/16 08:21 100 Nasal Cannula 2.0 12/14/16 08:00 Nasal Cannula 2.0 12/14/16 07:53 98.0 102 20 124/75 98 Nasal Cannula 1.0 98.0 Laboratory Laboratory Laboratory Tests Test 12/14/16 19:02 12/14/16 22:07 12/14/16 23:31 12/15/16 05:51 Glucose (Fingerstick) 186mg/dL (70-99) 204mg/dL (70-99) 229mg/dL (70-99) 232mg/dL (70-99) Test 12/15/16 06:42 12/15/16 11:48 12/15/16 17:05 White Blood Count 11.3x10^3/uL (4.0-11.0) Red Blood Count 3.23x10^6/uL (4.30-5.70) Hemoglobin 9.7g/dL (13.0-17.5) Hematocrit 29.8% (39.0-53.0) Mean Corpuscular Volume 92fL (79-100) Mean Corpuscular Hemoglobin 30pg (25-35) Mean Corpuscular Hemoglobin Concent 33g/dL (31-37) Red Cell Distribution Width 16.1% (11.5-14.5) Platelet Count 355x10^3/uL (140-400) Neutrophils (%) (Auto) 63% (31-73) Lymphocytes (%) (Auto) 13% (24-48) Monocytes (%) (Auto) 12% (0-9) Eosinophils (%) (Auto) 11% (0-3) Basophils (%) (Auto) 1% (0-3) Neutrophils # (Auto) 7.2x10^3uL (1.8-7.7) Lymphocytes # (Auto) 1.5x10^3/uL (1.0-4.8) Monocytes # (Auto) 1.4x10^3/uL (0.0-1.1) Eosinophils # (Auto) 1.2x10^3/uL (0.0-0.7) Basophils # (Auto) 0.1x10^3/uL (0.0-0.2) Sodium Level 136mmol/L (136-145) Potassium Level 4.7mmol/L (3.5-5.1) Chloride Level 102mmol/L (98-107) Carbon Dioxide Level 21mmol/L (21-32) Anion Gap 13 (6-14) Blood Urea Nitrogen 51mg/dL (8-26) Creatinine 1.7mg/dL (0.7-1.3) Estimated GFR (Cockcroft-Gault) 39.9 BUN/Creatinine Ratio 30 (6-20) Glucose Level 221mg/dL (70-99) Calcium Level 9.1mg/dL (8.5-10.1) Total Bilirubin 0.8mg/dL (0.2-1.0) Aspartate Amino Transf (AST/SGOT) 32U/L (15-37) Alanine Aminotransferase (ALT/SGPT) 54U/L (16-63) Alkaline Phosphatase 323U/L (46-116) Total Protein 7.4g/dL (6.4-8.2) Albumin 3.0g/dL (3.4-5.0) Albumin/Globulin Ratio 0.7 (1.0-1.7) Glucose (Fingerstick) 200mg/dL (70-99) 185mg/dL (70-99) Microbiology 11/28/16 Blood Culture - Final, Complete NO GROWTH AFTER 5 DAYS 12/10/16 Anaerobic/Aerobic Culture - Final, Complete 12/10/16 Anaerobic Culture Result 1 (ROSIE) - Final, Complete 12/10/16 Aerobic Culture - Final, Complete 12/10/16 Aerobic Culture Result 1 (ROSIE) - Final, Complete 11/24/16 Stool Culture - Final, Complete 11/24/16 Stool Culture Result 1 (ROSIE) - Final, Complete 11/24/16 Campylobacter Antigen Assay - Final, Complete 11/24/16 Campylobactor Result 1 - Final, Complete 11/24/16 Shiga Toxin Test - Final, Complete 12/09/16 Urine Culture - Final, Complete 12/09/16 Urine Culture Result 1 (ROSIE) - Final, Complete Medication Medications Current Medications Insulin Aspart 0-9 UNITS Q6HRS SQ Last administered on 12/15/16 17:09; Start 12/15/16 at 00:00 Insulin Detemir 30 units 30 units QHS SQ Last administered on 12/14/16 22:16; Start 12/14/16 at 21:00 Potassium Acetate/ Potassium Phosphate/ Magnesium Sulfate/ Calcium Gluconate/ Multivitamins/ Chromium/Copper/ Manganese/Seleni/ Zn/Insulin Human Regular/ Total Parenteral Nutrition/Amino Acids/Dextrose/ Fat Emulsion Intravenous ( Potassium Phosphate/Calcium Gluconate/ Infuvite Asim... 1,920 ml @ 80 mls/hr TPN CONT IV ; Start 12/15/16 at 22:00; Stop 12/16/16 at 21:59 Potassium Acetate/ Potassium Phosphate/ Magnesium Sulfate/ Calcium Gluconate/ Multivitamins/ Chromium/Copper/ Manganese/Seleni/ Zn/Insulin Human Regular/ Total Parenteral Nutrition/Amino Acids/Dextrose/ Fat Emulsion Intravenous ( Potassium Phosphate/Calcium Gluconate/ Infuvite Asim... 1,920 ml @ 80 mls/hr TPN CONT IV Last administered on 12/14/16 22:14; Start 12/14/16 at 22:00; Stop 12/15/16 at 21:59 Comment Review of Relevant I have reviewed the following items rodolfo (where applicable) has been applied. KEVIN VILLAVICENCIO MD Dec 15, 2016 17:24
[2016-12-15] MEDS ORDERED: [UNRECOGNIZED DRUG - OTHER] IV SCH ×10 (22:00)
[2016-12-15] MEDS ORDERED: DEXTROSE 70% IV SCH ×10 (22:00)
[2016-12-15] MEDS ORDERED: AMINO ACIDS IV SCH ×10 (22:00)
[2016-12-15] MEDS ORDERED: TOTAL PARENTERAL NUTRITION IV SCH ×10 (22:00)
[2016-12-15] MEDS: INSULIN DETEMIR 300 UNITS/3 ML INSULN.PEN. SQ SCH (22:07)
[2016-12-16 03:50] VITALS: BP 120/63
[2016-12-16] MEDS: METOPROLOL TARTRATE 5 MG/5 ML VIAL. IVP SCH ×4 (04:19→22:17)
[2016-12-16] MEDS: INSULIN ASPART 300 UNITS/3 ML INSULN.PEN SQ SCH ×4 (05:20→17:36)
[2016-12-16 05:26] LABS: CALCIUM 9.4 mg/dL (8.5-10.1); CREATININE 1.7 mg/dL (0.7-1.3); GFR 39.9; POTASSIUM 4.9 mmol/L (3.5-5.1)
[2016-12-16 05:32] LABS: MAGNESIUM 2.2 mg/dL (1.8-2.4); PHOSPHORUS 4.7 mg/dL (2.6-4.7)
[2016-12-16 07:29] VITALS: BP 129/74
[2016-12-16] MEDS: PANTOPRAZOLE IV PUSH 40 MG VIAL. IVP SCH (08:57)
[2016-12-16] MEDS: ASPIRIN 300 MG SUPP.RECT PR SCH (08:58)
[2016-12-16 10:51] VITALS: BP 126/80
--- NOTE | 2016-12-16 10:55 | PDOC ---
Renal-Progress Notes Subjective Notes Notes NONE History of Present Illness Hx of present illness NO CHANGE Vitals Vitals Vital Signs Date Time Temp Pulse Resp B/P Pulse Ox O2 Delivery O2 Flow Rate FiO2 12/16/16 08:58 95 129/74 12/16/16 08:00 Room Air 12/16/16 07:29 98.4 17 93 98.4 12/16/16 03:50 4.0 Weight Weight [ ] I.O. Intake and Output Intake and Output 12/16/16 06:59 Intake Total 0 ml Output Total 1975 ml Balance -1975 ml Intake Oral 0 ml Output Urine Total 1975 ml # Bowel Movements 1 Labs Labs Laboratory Tests Test 12/15/16 11:48 12/15/16 17:05 12/15/16 21:53 12/16/16 00:18 Glucose (Fingerstick) 200mg/dL (70-99) 185mg/dL (70-99) 185mg/dL (70-99) 180mg/dL (70-99) Test 12/16/16 04:54 12/16/16 04:55 Glucose (Fingerstick) 177mg/dL (70-99) Sodium Level 137mmol/L (136-145) Potassium Level 4.9mmol/L (3.5-5.1) Chloride Level 103mmol/L (98-107) Carbon Dioxide Level 21mmol/L (21-32) Anion Gap 13 (6-14) Blood Urea Nitrogen 46mg/dL (8-26) Creatinine 1.7mg/dL (0.7-1.3) Estimated GFR (Cockcroft-Gault) 39.9 Glucose Level 181mg/dL (70-99) Calcium Level 9.4mg/dL (8.5-10.1) Phosphorus Level 4.7mg/dL (2.6-4.7) Magnesium Level 2.2mg/dL (1.8-2.4) Micro Micro Microbiology 11/28/16 Blood Culture - Final, Complete NO GROWTH AFTER 5 DAYS 12/10/16 Anaerobic/Aerobic Culture - Final, Complete 12/10/16 Anaerobic Culture Result 1 (ROSIE) - Final, Complete 12/10/16 Aerobic Culture - Final, Complete 12/10/16 Aerobic Culture Result 1 (ROSIE) - Final, Complete 11/24/16 Stool Culture - Final, Complete 11/24/16 Stool Culture Result 1 (ROSIE) - Final, Complete 11/24/16 Campylobacter Antigen Assay - Final, Complete 11/24/16 Campylobactor Result 1 - Final, Complete 11/24/16 Shiga Toxin Test - Final, Complete 12/09/16 Urine Culture - Final, Complete 12/09/16 Urine Culture Result 1 (ROSIE) - Final, Complete Physical Exam General Appearance: no apparent distress Skin: warm Respiratory: decreased breath sounds Heart: S1S2 Abdomen: soft, bowel sounds present Neurology: alert, oriented, follow commands, confused (intermittent ) Assessment Assessment IMP [place]-RESOLVED CKD STAGE WITH CR OF 1.7 RESP FAILURE PE/DVT ANEMIA RIGHT FRONTAL CVA HTN-ADEQUATELY CONTROLLED PLAN CONT TPN CONTROL BP WILL FOLLOW LABS IN AM LEFTY MONTERO MD Dec 16, 2016 10:54
--- NOTE | 2016-12-16 11:55 | PDOC ---
Subjective: Subjective: Feeling weak. asks when PEG can be placed, feels this will make him stronger. Objective: Objective: Per RN - stable GI-goyal. Reviewed palliative care note, family meeting today. Can't go to [facility] until has PEG. Vital Signs: Vital Signs Date Time Temp Pulse Resp B/P Pulse Ox O2 Delivery O2 Flow Rate FiO2 12/16/16 10:51 97.2 102 20 126/80 95 Room Air 97.2 12/16/16 03:50 4.0 Labs: Laboratory Tests Test 12/15/16 17:05 12/15/16 21:53 12/16/16 00:18 12/16/16 04:54 Glucose (Fingerstick) 185mg/dL (70-99) 185mg/dL (70-99) 180mg/dL (70-99) 177mg/dL (70-99) Test 12/16/16 10:59 Glucose (Fingerstick) 210mg/dL (70-99) Imaging: CXR 12/15/16 IMPRESSION: 1. Persistent right mid chest opacity with diagnostic considerations including residual loculated high density pleural fluid, pleural-based neoplasm or pulmonary infarct. 2. No significant change since yesterday's study. PE: GEN: NAD, sitting in chair LUNGS: clear anteriorly HEART: S1S2 ABD: S/ND/NT NEURO/PSYCH: probably some confusion A/P: Intracranial bleed, hemothorax s/p chest tube (removed) Dysphagia -cardiac arrest/resp failure/intubation -on TPN, on PPI Anemia - stable -- Family anxious re: PEG placement/timing. YAMEL CUEVAS Dec 16, 2016 11:55
--- NOTE | 2016-12-16 13:19 | PDOC ---
PROGRESS NOTES Chief Complaint Chief Complaint Respiratory arrest 2/2 massive PE Cardiac arrest ASSESSMENT AND PLAN: 1. 2.2 cm hemorrhagic stroke with moderate edema - new (12/14/16). appreciate Dr Gould's input. appears stable 2. R hemothorax s/p thoracentesis with indwelling chest tube (12/11), transudative, neg culture 3. Bacteremia: Peptostreptococcus sp. on Zosyn (day 14) 4. Leukocytosis: minimal around upper limit of normal, reactive. monitor 5. Dysphagia w/ silent aspiration: failed swallow studies. PEG planned for tomorrow 6. Respir arrest: recovered. extubated 11/27 7. DVT bilateral LEs - IVC filter placed 11/29. lovenox on hold / hemorrhagic stroke. plan starting oral anticoag after F/U CT brain in ~2 weeks 8. Acute blood loss anemia: s/p transfusion, now stable 9. HAMILTON: suspect contrast induced. resolved 10. CKD3: stable 11. DM II : not well controlled. increase levemir to 38 qhs. ISS 12. CHF: systolic - EF 35-40% post arrest. lasix PRN 13. HLD: on statin 14. prophylaxis: PPI 15. Dispo: to LTAC after PEG placement Vitals Vitals Vital Signs Date Time Temp Pulse Resp B/P Pulse Ox O2 Delivery O2 Flow Rate FiO2 12/16/16 10:51 97.2 102 20 126/80 95 Room Air 97.2 12/16/16 03:50 4.0 Physical Exam General: Alert, No acute distress, Other (very fatigued) Heart: Regular rate Lungs: Clear Abdomen: Normal bowel sounds, Soft, No tenderness Extremities: Other (1+ edema all extremities) Skin: No rashes, Other (no bruising) Labs LABS Laboratory Tests Test 12/15/16 17:05 12/15/16 21:53 12/16/16 00:18 12/16/16 04:54 Glucose (Fingerstick) 185mg/dL (70-99) 185mg/dL (70-99) 180mg/dL (70-99) 177mg/dL (70-99) Test 12/16/16 04:55 12/16/16 10:59 Sodium Level 137mmol/L (136-145) Potassium Level 4.9mmol/L (3.5-5.1) Chloride Level 103mmol/L (98-107) Carbon Dioxide Level 21mmol/L (21-32) Anion Gap 13 (6-14) Blood Urea Nitrogen 46mg/dL (8-26) Creatinine 1.7mg/dL (0.7-1.3) Estimated GFR (Cockcroft-Gault) 39.9 Glucose Level 181mg/dL (70-99) Calcium Level 9.4mg/dL (8.5-10.1) Phosphorus Level 4.7mg/dL (2.6-4.7) Magnesium Level 2.2mg/dL (1.8-2.4) Glucose (Fingerstick) 210mg/dL (70-99) Review of Systems Review of Systems fatigues easily. denies pain. DAHLIA PETERSON MD Dec 16, 2016 13:19
[2016-12-16] MEDS: TPN PER PHARMACY MC PRN (13:35)
--- NOTE | 2016-12-16 14:21 | PDOC ---
PROGRESS NOTES Assessment Assessment Right frontal lobe hematoma with surround edema and mass effect. S/p cardiac arrest , VT. Metabolic encephalopathy. Hypoxia encephalopathy. Respiratory failure. Pleural effusion? Pulmonary infract? PE ? DVT CAD RECOMMENDATIONS/PLAN: Continue Medical treatment. Avoid anti-coagulant at the present time. Keppra if has seizure. Continue monitoring neurological status. Discussed with his at bedside again on 12/16. PAST MEDICAL AND SURGICAL HISTORY: Please see H&P ALLERGY: Reviewed. MEDICATIONS: Refer to MAR REVIEW OF SYSTEMS: Refer to PMH and PSH. PHYSICAL EXAMINATION: General appearance in subacute distress. HEENT: Normocephalic and nontraumatic. Eyes, nose, ears, and throat are unremarkable. Neck is supple. No lymphadenopathy. No Crepitus. Cardiovascular: S1, S2, regular rate and rhythm. Pulmonary: On vent. Abdomen: Bowel sounds are positive. Extremities: No rash, lesions, or edema. No restriction of range of motion NEUROLOGICAL EXAMINATION: Awake. Off vent. Sitting in chair. Not fully oriented to time, but oriented to place and person. Right pupil about 1.5 mm, left 2 mm both reactive to light stimuli. EOMI. CN: no focal findings. Muscle tone: wnl Muscle strength: 5- UE, 4 LE DTR: 1-2 Plantar reflex: Neutral response bilaterally Gait: not examined in chair.. Sensory exam: no acute findings. No acute cerebellar signs elicited. Objective Objective Vital Signs Date Time Temp Pulse Resp B/P Pulse Ox O2 Delivery O2 Flow Rate FiO2 12/16/16 10:51 97.2 102 20 126/80 95 Room Air 97.2 12/16/16 03:50 4.0 Intake and Output 12/16/16 06:59 Intake Total 0 ml Output Total 1975 ml Balance -1975 ml Intake Oral 0 ml Output Urine Total 1975 ml # Bowel Movements 1 Vitals Signs Vitals VS - Last 72 Hours, by Label Date Time Temp Pulse Resp B/P Pulse Ox O2 Delivery O2 Flow Rate FiO2 12/16/16 10:51 97.2 102 20 126/80 95 Room Air 97.2 12/16/16 08:58 95 129/74 12/16/16 08:00 Room Air 12/16/16 07:29 98.4 95 17 129/74 93 Room Air 98.4 12/16/16 04:19 96 131/67 12/16/16 03:50 98.4 95 18 120/63 96 Room Air 4.0 98.4 12/15/16 23:51 98.2 90 11 137/60 95 Nasal Cannula 4.0 98.2 12/15/16 22:05 97 137/79 12/15/16 20:30 98 Room Air 12/15/16 19:52 97.6 97 20 140/65 100 Room Air 97.6 12/15/16 19:37 Room Air 12/15/16 16:59 98 135/72 12/15/16 16:11 98 Room Air 12/15/16 15:00 100 19 122/65 98 Room Air 12/15/16 14:00 102 18 142/73 98 Room Air 12/15/16 13:00 98 14 126/74 98 Room Air 12/15/16 12:01 100 Nasal Cannula 2.0 12/15/16 12:00 97.9 98 22 127/68 99 Room Air 97.9 12/15/16 12:00 Room Air 12/15/16 11:00 97 20 142/80 98 Room Air 12/15/16 10:00 91 16 135/80 98 Room Air 12/15/16 09:30 87 16 128/76 97 Room Air 12/15/16 09:27 101 111/70 12/15/16 09:00 99 17 111/70 98 Room Air 12/15/16 08:37 97 Nasal Cannula 2.0 12/15/16 08:00 Room Air 12/15/16 08:00 97.9 102 18 134/73 97 Room Air 97.9 12/15/16 07:00 106 22 159/75 97 Room Air Laboratory Laboratory Laboratory Tests Test 12/15/16 17:05 12/15/16 21:53 12/16/16 00:18 12/16/16 04:54 Glucose (Fingerstick) 185mg/dL (70-99) 185mg/dL (70-99) 180mg/dL (70-99) 177mg/dL (70-99) Test 12/16/16 04:55 12/16/16 10:59 Sodium Level 137mmol/L (136-145) Potassium Level 4.9mmol/L (3.5-5.1) Chloride Level 103mmol/L (98-107) Carbon Dioxide Level 21mmol/L (21-32) Anion Gap 13 (6-14) Blood Urea Nitrogen 46mg/dL (8-26) Creatinine 1.7mg/dL (0.7-1.3) Estimated GFR (Cockcroft-Gault) 39.9 Glucose Level 181mg/dL (70-99) Calcium Level 9.4mg/dL (8.5-10.1) Phosphorus Level 4.7mg/dL (2.6-4.7) Magnesium Level 2.2mg/dL (1.8-2.4) Glucose (Fingerstick) 210mg/dL (70-99) Microbiology 11/28/16 Blood Culture - Final, Complete NO GROWTH AFTER 5 DAYS 12/10/16 Anaerobic/Aerobic Culture - Final, Complete 12/10/16 Anaerobic Culture Result 1 (ROSIE) - Final, Complete 12/10/16 Aerobic Culture - Final, Complete 12/10/16 Aerobic Culture Result 1 (ROSIE) - Final, Complete 11/24/16 Stool Culture - Final, Complete 11/24/16 Stool Culture Result 1 (ROSIE) - Final, Complete 11/24/16 Campylobacter Antigen Assay - Final, Complete 11/24/16 Campylobactor Result 1 - Final, Complete 11/24/16 Shiga Toxin Test - Final, Complete 12/09/16 Urine Culture - Final, Complete 12/09/16 Urine Culture Result 1 (ROSIE) - Final, Complete Medication Medications Current Medications Potassium Acetate 35 meq/Potassium Phosphate 5 mmol/ Magnesium Sulfate 15 meq/ Calcium Gluconate 5 meq/ Multivitamins 10 ml/Chromium/ Copper/Manganese/ Seleni/ Zn 1 ml/ Insulin Human Regular 15 unit/ Total Parenteral Nutrition/Amino Acids/ Dextrose/ Fat Emulsion Intravenous 1,920 ml @ 80 mls/hr TPN CONT IV Last administered on 12/15/16t 22:06; Start 12/15/16 at 22:00; Stop 12/16/16 at 21:59 Potassium Acetate/ Potassium Phosphate/ Magnesium Sulfate/ Calcium Gluconate/ Multivitamins/ Chromium/Copper/ Manganese/Seleni/ Zn/Insulin Human Regular/ Total Parenteral Nutrition/Amino Acids/Dextrose/ Fat Emulsion Intravenous ( Potassium Phosphate/Calcium Gluconate/ Infuvite Asim... 1,920 ml @ 80 mls/hr TPN CONT IV ; Start 12/16/16 at 22:00; Stop 12/17/16 at 21:59 Comment Review of Relevant I have reviewed the following items rodolfo (where applicable) has been applied. KEVIN VILLAVICENCIO MD Dec 16, 2016 14:20
--- NOTE | 2016-12-16 14:49 | PDOC ---
SUBJECTIVE Subjective No acute changes reported. OBJECTIVE Objective repeat CT head stable Vital Signs Vital Signs Date Time Temp Pulse Resp B/P Pulse Ox O2 Delivery O2 Flow Rate FiO2 12/16/16 10:51 97.2 102 20 126/80 95 Room Air 97.2 12/16/16 08:58 95 129/74 12/16/16 08:00 Room Air 12/16/16 07:29 98.4 95 17 129/74 93 Room Air 98.4 12/16/16 04:19 96 131/67 12/16/16 03:50 98.4 95 18 120/63 96 Room Air 4.0 98.4 12/15/16 23:51 98.2 90 11 137/60 95 Nasal Cannula 4.0 98.2 12/15/16 22:05 97 137/79 12/15/16 20:30 98 Room Air 12/15/16 19:52 97.6 97 20 140/65 100 Room Air 97.6 12/15/16 19:37 Room Air 12/15/16 16:59 98 135/72 12/15/16 16:11 98 Room Air 12/15/16 15:00 100 19 122/65 98 Room Air I & O Intake and Output 12/16/16 07:00 Intake Total 0 ml Output Total 1975 ml Balance -1975 ml Intake Oral 0 ml Output Urine Total 1975 ml # Bowel Movements 1 PHYSICAL EXAM Physical Exam sleeping, arouses, SWAIN ASSESSMENT/PLAN Assessment/Plan 71M with ICH -appears stable -anticoagulation on hold for now -plans for d/c today noted -repeat CT head without contrast approx 2 weeks or sooner if problems [phone] [phone] Problems: COMMENT Lab Laboratory Tests Test 12/15/16 17:05 12/15/16 21:53 12/16/16 00:18 12/16/16 04:54 Glucose (Fingerstick) 185mg/dL (70-99) 185mg/dL (70-99) 180mg/dL (70-99) 177mg/dL (70-99) Test 12/16/16 04:55 12/16/16 10:59 Sodium Level 137mmol/L (136-145) Potassium Level 4.9mmol/L (3.5-5.1) Chloride Level 103mmol/L (98-107) Carbon Dioxide Level 21mmol/L (21-32) Anion Gap 13 (6-14) Blood Urea Nitrogen 46mg/dL (8-26) Creatinine 1.7mg/dL (0.7-1.3) Estimated GFR (Cockcroft-Gault) 39.9 Glucose Level 181mg/dL (70-99) Calcium Level 9.4mg/dL (8.5-10.1) Phosphorus Level 4.7mg/dL (2.6-4.7) Magnesium Level 2.2mg/dL (1.8-2.4) Glucose (Fingerstick) 210mg/dL (70-99) JT CATALAN MD Dec 16, 2016 14:49
--- NOTE | 2016-12-16 16:27 | PDOC2 ---
PALLIATIVE CARE Palliative Care Note Palliative Care Met with family at (0900) Met with patient, Carolee, daughter Latoya and son Dino. [place] son unable to attend meeting. Patient awakened easily but drowsy returning asleep during some of conversation. Family is able to accurately verbalize patient's medical condition: Admitted with Respiratory Arrest secondary to PE; DVT IVC filter 11/29. . Dysphagia with silent aspiration failing swallow test. Patient developed ICH 12/14/2016; HAMILTON. CKD3. improving. Plan for discharge discussed per family. Discussed options for acute rehabilitation vs Assisted Acute facility. Family would like more information regarding [facility] [place]. Discussed overall prognosis; family understands that patient may not get back to previous level of functioning. Discussed PEG tube insertion. Awaiting input from physician regarding timing of placement of PEG tube. 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 Discussed Code Status: Patient will remain Full Code. Plan: LTAC when discharged. Awaiting information regarding PEG Tube insertion 1600 Patient scheduled for PEG tube insertion tomorrow then discharge to LTAC. KALI WASHINGTON Dec 16, 2016 16:27
--- NOTE | 2016-12-16 16:46 | PDOC ---
PULMONARY PROGRESS NOTES Subjective pt with no resp complaints Vitals Vital Signs Date Time Temp Pulse Resp B/P Pulse Ox O2 Delivery O2 Flow Rate FiO2 12/16/16 10:51 97.2 102 20 126/80 95 Room Air 97.2 12/16/16 03:50 4.0 General: Alert, No acute distress HEENT: Other (nc at, perrl, nose clear, shallow oropharynx. neck, + jvd, no thyromegaly, no lap) Lungs: Clear Cardiovascular: S1, S2 Abdomen: Soft, Non-tender, Other (no mass) Neuro Exam: Alert Extremities: Other (2=edema) Skin: Warm Labs Laboratory Tests Test 12/14/16 19:02 12/14/16 22:07 12/14/16 23:31 12/15/16 05:51 Glucose (Fingerstick) 186mg/dL (70-99) 204mg/dL (70-99) 229mg/dL (70-99) 232mg/dL (70-99) Test 12/15/16 06:42 12/15/16 11:48 12/15/16 17:05 12/15/16 21:53 White Blood Count 11.3x10^3/uL (4.0-11.0) Red Blood Count 3.23x10^6/uL (4.30-5.70) Hemoglobin 9.7g/dL (13.0-17.5) Hematocrit 29.8% (39.0-53.0) Mean Corpuscular Volume 92fL (79-100) Mean Corpuscular Hemoglobin 30pg (25-35) Mean Corpuscular Hemoglobin Concent 33g/dL (31-37) Red Cell Distribution Width 16.1% (11.5-14.5) Platelet Count 355x10^3/uL (140-400) Neutrophils (%) (Auto) 63% (31-73) Lymphocytes (%) (Auto) 13% (24-48) Monocytes (%) (Auto) 12% (0-9) Eosinophils (%) (Auto) 11% (0-3) Basophils (%) (Auto) 1% (0-3) Neutrophils # (Auto) 7.2x10^3uL (1.8-7.7) Lymphocytes # (Auto) 1.5x10^3/uL (1.0-4.8) Monocytes # (Auto) 1.4x10^3/uL (0.0-1.1) Eosinophils # (Auto) 1.2x10^3/uL (0.0-0.7) Basophils # (Auto) 0.1x10^3/uL (0.0-0.2) Sodium Level 136mmol/L (136-145) Potassium Level 4.7mmol/L (3.5-5.1) Chloride Level 102mmol/L (98-107) Carbon Dioxide Level 21mmol/L (21-32) Anion Gap 13 (6-14) Blood Urea Nitrogen 51mg/dL (8-26) Creatinine 1.7mg/dL (0.7-1.3) Estimated GFR (Cockcroft-Gault) 39.9 BUN/Creatinine Ratio 30 (6-20) Glucose Level 221mg/dL (70-99) Calcium Level 9.1mg/dL (8.5-10.1) Total Bilirubin 0.8mg/dL (0.2-1.0) Aspartate Amino Transf (AST/SGOT) 32U/L (15-37) Alanine Aminotransferase (ALT/SGPT) 54U/L (16-63) Alkaline Phosphatase 323U/L (46-116) Total Protein 7.4g/dL (6.4-8.2) Albumin 3.0g/dL (3.4-5.0) Albumin/Globulin Ratio 0.7 (1.0-1.7) Glucose (Fingerstick) 200mg/dL (70-99) 185mg/dL (70-99) 185mg/dL (70-99) Test 12/16/16 00:18 12/16/16 04:54 12/16/16 04:55 12/16/16 10:59 Glucose (Fingerstick) 180mg/dL (70-99) 177mg/dL (70-99) 210mg/dL (70-99) Sodium Level 137mmol/L (136-145) Potassium Level 4.9mmol/L (3.5-5.1) Chloride Level 103mmol/L (98-107) Carbon Dioxide Level 21mmol/L (21-32) Anion Gap 13 (6-14) Blood Urea Nitrogen 46mg/dL (8-26) Creatinine 1.7mg/dL (0.7-1.3) Estimated GFR (Cockcroft-Gault) 39.9 Glucose Level 181mg/dL (70-99) Calcium Level 9.4mg/dL (8.5-10.1) Phosphorus Level 4.7mg/dL (2.6-4.7) Magnesium Level 2.2mg/dL (1.8-2.4) Laboratory Tests Test 12/15/16 17:05 12/15/16 21:53 12/16/16 00:18 12/16/16 04:54 Glucose (Fingerstick) 185mg/dL (70-99) 185mg/dL (70-99) 180mg/dL (70-99) 177mg/dL (70-99) Test 12/16/16 04:55 12/16/16 10:59 Sodium Level 137mmol/L (136-145) Potassium Level 4.9mmol/L (3.5-5.1) Chloride Level 103mmol/L (98-107) Carbon Dioxide Level 21mmol/L (21-32) Anion Gap 13 (6-14) Blood Urea Nitrogen 46mg/dL (8-26) Creatinine 1.7mg/dL (0.7-1.3) Estimated GFR (Cockcroft-Gault) 39.9 Glucose Level 181mg/dL (70-99) Calcium Level 9.4mg/dL (8.5-10.1) Phosphorus Level 4.7mg/dL (2.6-4.7) Magnesium Level 2.2mg/dL (1.8-2.4) Glucose (Fingerstick) 210mg/dL (70-99) Comments cxr reviewed, 12/13 resolved right effusion, no ptx Impression . 1. Acute respiratory failure secondary to [id number] cardiopulmonary arrest. 2. Hyperlipidemia. 3. Diabetes. 4. Positive venous Doppler/ high prob V/Q, popliteal nonocclusive thrombus. 5. Metabolic acidosis sec to code, improved. 6. PE, Bilateral DVT/ PE- S/p IVC. 7. Ischemia CM 35-40%, cath no significant lesion 8. Acute kidney injury 9. anemia, 10. NEW CVA hemorrhagic 11. right effusion, bloody,doubt hemothorax, improved post thoracentesis, suspect related to pulmonary infarct 12. Dysphagia PEG in AM Plan . PRG in am then LTAC s/p right thoracentesis/ chest tube to suction.(exudate, gram stain neg) resp status is compensated off 02 In the setting of ongoing anemia and recent hemorrhagic effusion and CVA no anticoagulation pt ot resp status is compensated follow results of pleural fluid cytology MC GUILLORY MD Dec 16, 2016 16:46
[2016-12-16] MEDS ORDERED: MORPHINE SULFATE 2 MG/ML DISP.SYRIN. IV PRN ×2 (17:45)
[2016-12-16 19:24] VITALS: BP 134/68
[2016-12-16] MEDS: IPRATROPIUM BROMIDE 0.5 MG/2.5 ML NEBU. NEB SCH (20:03)
[2016-12-16] MEDS ORDERED: INSULIN DETEMIR 300 UNITS/3 ML INSULN.PEN. SQ SCH (21:00)
[2016-12-16] MEDS ORDERED: AMINO ACIDS IV SCH ×10 (22:00)
[2016-12-16] MEDS ORDERED: TOTAL PARENTERAL NUTRITION IV SCH ×10 (22:00)
[2016-12-16] MEDS ORDERED: DEXTROSE 70% IV SCH ×10 (22:00)
[2016-12-16] MEDS ORDERED: [UNRECOGNIZED DRUG - OTHER] IV SCH ×10 (22:00)
[2016-12-16 22:56] VITALS: BP 124/73
[2016-12-17] VITALS (9 sets, daily range): BP systolic 117–140; BP diastolic 52–72
[2016-12-17] MEDS: INSULIN ASPART 300 UNITS/3 ML INSULN.PEN SQ SCH ×3 (00:49→12:00)
[2016-12-17 03:57] LABS: CALCIUM 8.9 mg/dL (8.5-10.1); CREATININE 1.7 mg/dL (0.7-1.3); GFR 39.9; POTASSIUM 4.6 mmol/L (3.5-5.1)
[2016-12-17] MEDS: METOPROLOL TARTRATE 5 MG/5 ML VIAL. IVP SCH ×3 (04:20→16:54)
[2016-12-17] MEDS ORDERED: CEFAZOLIN 1GM IVPB FOR OMNI 50 ML IV PRN (06:00)
[2016-12-17] MEDS ORDERED: CEFAZOLIN SODIUM 1 GM IM ONE (08:00)
[2016-12-17] MEDS: IPRATROPIUM BROMIDE 0.5 MG/2.5 ML NEBU. NEB SCH ×3 (08:05→15:44)
[2016-12-17] MEDS ORDERED: LIDOCAINE 2% PF Vial for OR 5 ML VIAL. ONE (08:52)
[2016-12-17] MEDS ORDERED: PROPOFOL 20 ML IV ONE (08:52)
[2016-12-17] MEDS: ASPIRIN 300 MG SUPP.RECT PR SCH (09:00)
--- NOTE | 2016-12-17 09:30 | PDOC4 ---
Operative Note Operative Note EGD with PEG Meds propofol per anesthesia Pre-op dx oropharyngeal dysphagia Post-op dx non-erosive gastritis S/p 20 FR Peg placed Plan abd binder at all times may use G tube for medications immediately tube feedings to start in 6 hours at 30 cc/hr and increase to 60 cc/hr WENDY SANTIZO MD Dec 17, 2016 09:30
[2016-12-17] MEDS: PANTOPRAZOLE IV PUSH 40 MG VIAL. IVP SCH (10:13)
--- NOTE | 2016-12-17 11:29 | PDOC ---
Renal-Progress Notes Subjective Notes Notes NONE History of Present Illness Hx of present illness NO CHANGE Vitals Vitals Vital Signs Date Time Temp Pulse Resp B/P Pulse Ox O2 Delivery O2 Flow Rate FiO2 12/17/16 10:15 105 138/80 12/17/16 10:00 97.8 20 96 Room Air 97.8 12/17/16 09:40 3 Weight Weight [ ] I.O. Intake and Output Intake and Output 12/17/16 07:00 Intake Total 1117.05 ml Output Total 1450 ml Balance -332.95 ml Intake Oral 0 ml IV Total 717.05 ml Blood Product IV Normal Saline Flush 400 ml Output Urine Total 1450 ml Stool Total 0 ml Labs Labs Laboratory Tests Test 12/16/16 17:31 12/16/16 22:14 12/17/16 00:13 12/17/16 03:00 Glucose (Fingerstick) 216mg/dL (70-99) 217mg/dL (70-99) 203mg/dL (70-99) Sodium Level 136mmol/L (136-145) Potassium Level 4.6mmol/L (3.5-5.1) Chloride Level 104mmol/L (98-107) Carbon Dioxide Level 22mmol/L (21-32) Anion Gap 10 (6-14) Blood Urea Nitrogen 49mg/dL (8-26) Creatinine 1.7mg/dL (0.7-1.3) Estimated GFR (Cockcroft-Gault) 39.9 Glucose Level 190mg/dL (70-99) Calcium Level 8.9mg/dL (8.5-10.1) Triglycerides Level 268mg/dL (0-150) Test 12/17/16 06:02 Glucose (Fingerstick) 180mg/dL (70-99) Micro Micro Microbiology 11/28/16 Blood Culture - Final, Complete NO GROWTH AFTER 5 DAYS 12/10/16 Anaerobic/Aerobic Culture - Final, Complete 12/10/16 Anaerobic Culture Result 1 (ROSIE) - Final, Complete 12/10/16 Aerobic Culture - Final, Complete 12/10/16 Aerobic Culture Result 1 (ROSIE) - Final, Complete 11/24/16 Stool Culture - Final, Complete 11/24/16 Stool Culture Result 1 (ROSIE) - Final, Complete 11/24/16 Campylobacter Antigen Assay - Final, Complete 11/24/16 Campylobactor Result 1 - Final, Complete 11/24/16 Shiga Toxin Test - Final, Complete 12/09/16 Urine Culture - Final, Complete 12/09/16 Urine Culture Result 1 (ROSIE) - Final, Complete Physical Exam General Appearance: no apparent distress Skin: warm Respiratory: decreased breath sounds Heart: S1S2 Abdomen: soft, bowel sounds present Neurology: alert, oriented, follow commands, confused (intermittent ) Assessment Assessment IMP HAMILTON-RESOLVED CKD STAGE WITH CR OF 1.7 RESP FAILURE PE/DVT ANEMIA RIGHT FRONTAL CVA HTN-ADEQUATELY CONTROLLED PLAN CONT TPN PEG PENDING WILL FOLLOW LABS IN AM LEFTY MONTERO MD Dec 17, 2016 11:29
--- NOTE | 2016-12-17 12:57 | PDOC ---
PULMONARY PROGRESS NOTES Subjective pt with no resp complaints Vitals Vital Signs Date Time Temp Pulse Resp B/P Pulse Ox O2 Delivery O2 Flow Rate FiO2 12/17/16 12:41 97 Room Air 3.0 12/17/16 10:15 105 138/80 12/17/16 10:00 97.8 20 97.8 General: Alert, No acute distress HEENT: Other (nc at, perrl, nose clear, shallow oropharynx. neck, + jvd, no thyromegaly, no lap) Lungs: Clear Cardiovascular: S1, S2 Abdomen: Soft, Non-tender, Other (no mass) Neuro Exam: Alert Extremities: Other (2=edema) Skin: Warm Labs Laboratory Tests Test 12/15/16 17:05 12/15/16 21:53 12/16/16 00:18 12/16/16 04:54 Glucose (Fingerstick) 185mg/dL (70-99) 185mg/dL (70-99) 180mg/dL (70-99) 177mg/dL (70-99) Test 12/16/16 04:55 12/16/16 10:59 12/16/16 17:31 12/16/16 22:14 Sodium Level 137mmol/L (136-145) Potassium Level 4.9mmol/L (3.5-5.1) Chloride Level 103mmol/L (98-107) Carbon Dioxide Level 21mmol/L (21-32) Anion Gap 13 (6-14) Blood Urea Nitrogen 46mg/dL (8-26) Creatinine 1.7mg/dL (0.7-1.3) Estimated GFR (Cockcroft-Gault) 39.9 Glucose Level 181mg/dL (70-99) Calcium Level 9.4mg/dL (8.5-10.1) Phosphorus Level 4.7mg/dL (2.6-4.7) Magnesium Level 2.2mg/dL (1.8-2.4) Glucose (Fingerstick) 210mg/dL (70-99) 216mg/dL (70-99) 217mg/dL (70-99) Test 12/17/16 00:13 12/17/16 03:00 12/17/16 06:02 12/17/16 12:30 Glucose (Fingerstick) 203mg/dL (70-99) 180mg/dL (70-99) 199mg/dL (70-99) Sodium Level 136mmol/L (136-145) Potassium Level 4.6mmol/L (3.5-5.1) Chloride Level 104mmol/L (98-107) Carbon Dioxide Level 22mmol/L (21-32) Anion Gap 10 (6-14) Blood Urea Nitrogen 49mg/dL (8-26) Creatinine 1.7mg/dL (0.7-1.3) Estimated GFR (Cockcroft-Gault) 39.9 Glucose Level 190mg/dL (70-99) Calcium Level 8.9mg/dL (8.5-10.1) Triglycerides Level 268mg/dL (0-150) Laboratory Tests Test 12/16/16 17:31 12/16/16 22:14 12/17/16 00:13 12/17/16 03:00 Glucose (Fingerstick) 216mg/dL (70-99) 217mg/dL (70-99) 203mg/dL (70-99) Sodium Level 136mmol/L (136-145) Potassium Level 4.6mmol/L (3.5-5.1) Chloride Level 104mmol/L (98-107) Carbon Dioxide Level 22mmol/L (21-32) Anion Gap 10 (6-14) Blood Urea Nitrogen 49mg/dL (8-26) Creatinine 1.7mg/dL (0.7-1.3) Estimated GFR (Cockcroft-Gault) 39.9 Glucose Level 190mg/dL (70-99) Calcium Level 8.9mg/dL (8.5-10.1) Triglycerides Level 268mg/dL (0-150) Test 12/17/16 06:02 12/17/16 12:30 Glucose (Fingerstick) 180mg/dL (70-99) 199mg/dL (70-99) Comments cxr reviewed, 12/13 resolved right effusion, no ptx Impression . 1. Acute respiratory failure secondary to [id number] cardiopulmonary arrest. 2. Hyperlipidemia. 3. Diabetes. 4. Positive venous Doppler/ high prob V/Q, popliteal nonocclusive thrombus. 5. Metabolic acidosis sec to code, improved. 6. PE, Bilateral DVT/ PE- S/p IVC. 7. Ischemia CM 35-40%, cath no significant lesion 8. Acute kidney injury 9. anemia, 10. NEW CVA hemorrhagic 11. right effusion, bloody,doubt hemothorax, improved post thoracentesis, suspect related to pulmonary infarct 12. Dysphagia PEG 12/17 13. Effusion negative for malignant cell Plan . PEG today done no resp distress spopke with Dr. Alana hodges to transfer s/p right thoracentesis/ chest tube to suction.(exudate, gram stain neg) resp status is compensated off 02 In the setting of ongoing anemia and recent hemorrhagic effusion and CVA no anticoagulation pt ot resp status is compensated MC GUILLORY MD Dec 17, 2016 12:57
--- NOTE | 2016-12-17 14:51 | PDOC ---
PROGRESS NOTES Assessment Assessment Right frontal lobe hematoma with surround edema and mass effect. S/p cardiac arrest , VT. Metabolic encephalopathy. Hypoxia encephalopathy. Respiratory failure. Pleural effusion? Pulmonary infract? PE ? DVT CAD RECOMMENDATIONS/PLAN: Continue Medical treatment. Avoid anti-coagulant at the present time. Lorna figueroa has seizure. Discussed with his at bedside again on 12/16. PAST MEDICAL AND SURGICAL HISTORY: Please see H&P ALLERGY: Reviewed. MEDICATIONS: Refer to MAR REVIEW OF SYSTEMS: Refer to PMH and PSH. PHYSICAL EXAMINATION: General appearance in subacute distress. HEENT: Normocephalic and nontraumatic. Eyes, nose, ears, and throat are unremarkable. Neck is supple. No lymphadenopathy. No Crepitus. Cardiovascular: S1, S2, regular rate and rhythm. Pulmonary: On vent. Abdomen: Bowel sounds are positive. Extremities: No rash, lesions, or edema. No restriction of range of motion NEUROLOGICAL EXAMINATION: Awake. On room air. Able to understand questions and follow commands. Not fully oriented to time, but oriented to place and person. Right pupil about 1.5 mm, left 2 mm both reactive to light stimuli. EOMI. CN: no focal findings. Muscle tone: wnl Muscle strength: 5- UE, 4 LE DTR: 1-2 Plantar reflex: Neutral response bilaterally Gait: not examined in chair.. Sensory exam: no acute findings. No acute cerebellar signs elicited. Objective Objective Vital Signs Date Time Temp Pulse Resp B/P Pulse Ox O2 Delivery O2 Flow Rate FiO2 12/17/16 12:41 97 Room Air 3.0 12/17/16 11:00 97.3 70 18 127/68 97.3 Intake and Output 12/17/16 07:00 Intake Total 1117.05 ml Output Total 1450 ml Balance -332.95 ml Intake Oral 0 ml IV Total 717.05 ml Blood Product IV Normal Saline Flush 400 ml Output Urine Total 1450 ml Stool Total 0 ml Vitals Signs Vitals VS - Last 72 Hours, by Label Date Time Temp Pulse Resp B/P Pulse Ox O2 Delivery O2 Flow Rate FiO2 12/17/16 12:41 97 Room Air 3.0 12/17/16 11:31 97 Room Air 12/17/16 11:00 97.3 70 18 127/68 98 Room Air 97.3 12/17/16 10:15 105 138/80 12/17/16 10:00 97.8 91 20 128/73 96 Room Air 97.8 12/17/16 09:49 97.8 90 20 131/76 97 Room Air 97.8 12/17/16 09:40 97.8 89 20 121/72 98 Room Air 3 97.8 12/17/16 09:30 98.7 87 20 123/74 97 Nasal Cannula 3 98.7 12/17/16 08:09 97.8 95 18 95 97.8 12/17/16 08:06 Room Air 4.0 12/17/16 07:46 97.9 95 19 124/62 97 Room Air 97.9 12/17/16 04:20 94 117/67 12/17/16 03:00 97.9 94 18 117/67 96 Room Air 97.9 12/16/16 22:56 98.1 112 18 124/73 96 Room Air 98.1 12/16/16 22:17 98 134/68 12/16/16 20:04 97 Room Air 12/16/16 19:24 97.2 98 20 134/68 96 Room Air 97.2 12/16/16 17:27 114 126/80 12/16/16 10:51 97.2 102 20 126/80 95 Room Air 97.2 12/16/16 08:58 95 129/74 12/16/16 08:00 Room Air 12/16/16 07:29 98.4 95 17 129/74 93 Room Air 98.4 Laboratory Laboratory Laboratory Tests Test 12/16/16 17:31 12/16/16 22:14 12/17/16 00:13 12/17/16 03:00 Glucose (Fingerstick) 216mg/dL (70-99) 217mg/dL (70-99) 203mg/dL (70-99) Sodium Level 136mmol/L (136-145) Potassium Level 4.6mmol/L (3.5-5.1) Chloride Level 104mmol/L (98-107) Carbon Dioxide Level 22mmol/L (21-32) Anion Gap 10 (6-14) Blood Urea Nitrogen 49mg/dL (8-26) Creatinine 1.7mg/dL (0.7-1.3) Estimated GFR (Cockcroft-Gault) 39.9 Glucose Level 190mg/dL (70-99) Calcium Level 8.9mg/dL (8.5-10.1) Triglycerides Level 268mg/dL (0-150) Test 12/17/16 06:02 12/17/16 12:30 Glucose (Fingerstick) 180mg/dL (70-99) 199mg/dL (70-99) Microbiology 11/28/16 Blood Culture - Final, Complete NO GROWTH AFTER 5 DAYS 12/10/16 Anaerobic/Aerobic Culture - Final, Complete 12/10/16 Anaerobic Culture Result 1 (ROSIE) - Final, Complete 12/10/16 Aerobic Culture - Final, Complete 12/10/16 Aerobic Culture Result 1 (ROSIE) - Final, Complete 11/24/16 Stool Culture - Final, Complete 11/24/16 Stool Culture Result 1 (ROSIE) - Final, Complete 11/24/16 Campylobacter Antigen Assay - Final, Complete 11/24/16 Campylobactor Result 1 - Final, Complete 11/24/16 Shiga Toxin Test - Final, Complete 12/09/16 Urine Culture - Final, Complete 12/09/16 Urine Culture Result 1 (ROSIE) - Final, Complete Medication Medications Current Medications Cefazolin Sodium 50 ml @ 100 mls/hr 1X PREOP PRN IV BEFORE PROCEDURE Last administered on 12/17/16 08:58; Start 12/17/16 at 06:00; Stop 12/18/16 at 05:59 Cefazolin Sodium (Ancef) 1 gm 1X ONCE IM ; Start 12/17/16 at 08:00; Stop at 08:01; Status DC Insulin Detemir (Levemir) 38 units QHS SQ Last administered on 12/16/16 22:23 ; Start 12/16/16 at 21:00 Lidocaine HCl (Lidocaine Pf 2% Vial) 5 ml STK-MED ONCE .ROUTE ; Start 12/17/16 at 08:52; Stop 12/17/16 at 08:53; Status DC Morphine Sulfate 1 mg PRN Q2HR PRN IV PAIN; Start 12/16/16 at 17:45 Morphine Sulfate 2 mg 2 mg PRN Q2HR PRN IV PAIN Last administered on 12/17/16 12:41; Start 12/16/16 at 17:45 Potassium Acetate/ Potassium Phosphate/ Magnesium Sulfate/ Calcium Gluconate/ Multivitamins/ Chromium/Copper/ Manganese/Seleni/ Zn/Insulin Human Regular/ Total Parenteral Nutrition/Amino Acids/Dextrose/ Fat Emulsion Intravenous ( Potassium Phosphate/Calcium Gluconate/ Infuvite Asim... 1,920 ml @ 80 mls/hr TPN CONT IV Last administered on 12/16/16t 22:00; Start 12/16/16 at 22:00; Stop 12/17/16 at 21:59 Propofol (Diprivan) 20 ml @ As Directed STK-MED ONCE IV ; Start 12/17/16 at 08: 52; Stop 12/17/16 at 08:53; Status DC Comment Review of Relevant I have reviewed the following items rodolfo (where applicable) has been applied. KEVIN VILLAVICENCIO MD Dec 17, 2016 14:51
== END 2016-12-17 17:55 | DRG 166 ==
LOC: ER 06:32 → 1 WEST ICU 07:42 → CVICU 11-27 07:44 → 2 SOUTH 12-05 13:16 → 1 WEST ICU 12-14 12:49 → 2 SOUTH 12-15 23:35
PROVIDERS: ADMIT Internal Medicine; ATTEND Internal Medicine
PROC: 5A1945Z Respiratory Ventilation, 24-96 Consecutive Hours (ICD-10-PCS; principal; 2016-11-24)
PROC: 0BH17EZ Insertion of Endotracheal Airway into Trachea, Via Natural or Artificial Opening (ICD-10-PCS; 2016-11-24)
PROC: 5A12012 Performance of Cardiac Output, Single, Manual (ICD-10-PCS; 2016-11-24)
PROC: 02HV33Z Insertion of Infusion Device into Superior Vena Cava, Percutaneous Approach (ICD-10-PCS; 2016-11-25)
PROC: 5A09557 Assistance with Respiratory Ventilation, Greater than 96 Consecutive Hours, Continuous Positive Airway Pressure (ICD-10-PCS; 2016-11-27)
PROC: 30233N1 Transfusion of Nonautologous Red Blood Cells into Peripheral Vein, Percutaneous Approach (ICD-10-PCS; 2016-11-28)
PROC: 02H633Z Insertion of Infusion Device into Right Atrium, Percutaneous Approach (ICD-10-PCS; 2016-11-28)
PROC: 06H03DZ Insertion of Intraluminal Device into Inferior Vena Cava, Percutaneous Approach (ICD-10-PCS; 2016-11-29)
PROC: 4A023N7 Measurement of Cardiac Sampling and Pressure, Left Heart, Percutaneous Approach (ICD-10-PCS; 2016-12-04)
PROC: B2111ZZ Fluoroscopy of Multiple Coronary Arteries using Low Osmolar Contrast (ICD-10-PCS; 2016-12-04)
PROC: B2151ZZ Fluoroscopy of Left Heart using Low Osmolar Contrast (ICD-10-PCS; 2016-12-04)
PROC: 0W9930Z Drainage of Right Pleural Cavity with Drainage Device, Percutaneous Approach (ICD-10-PCS; 2016-12-10)
PROC: 0DH63UZ Insertion of Feeding Device into Stomach, Percutaneous Approach (ICD-10-PCS; 2016-12-17)
DX: J96.00 Acute respiratory failure, unspecified whether with hypoxia or hypercapnia (principal); I63.9 Cerebral infarction, unspecified; I46.9 Cardiac arrest, cause unspecified; E43 Unspecified severe protein-calorie malnutrition; G93.41 Metabolic encephalopathy; I26.99 Other pulmonary embolism without acute cor pulmonale; J18.9 Pneumonia, unspecified organism; N17.0 Acute kidney failure with tubular necrosis; D62 Acute posthemorrhagic anemia; E87.0 Hyperosmolality and hypernatremia; I13.0 Hypertensive heart and chronic kidney disease with heart failure and stage 1 through stage 4 chronic kidney disease, or unspecified chronic kidney disease; I47.2 Ventricular tachycardia; I50.20 Unspecified systolic (congestive) heart failure; I82.409 Acute embolism and thrombosis of unspecified deep veins of unspecified lower extremity; J94.2 Hemothorax; J98.11 Atelectasis; K55.9 Vascular disorder of intestine, unspecified; K56.7 Ileus, unspecified; R78.81 Bacteremia; J90 Pleural effusion, not elsewhere classified; J96.01 Acute respiratory failure with hypoxia; D69.6 Thrombocytopenia, unspecified; E11.22 Type 2 diabetes mellitus with diabetic chronic kidney disease; E11.65 Type 2 diabetes mellitus with hyperglycemia; Z68.30 Body mass index [BMI] 30.0-30.9, adult; E78.5 Hyperlipidemia, unspecified; E78.00 Pure hypercholesterolemia, unspecified; E83.42 Hypomagnesemia; I25.10 Atherosclerotic heart disease of native coronary artery without angina pectoris; I25.5 Ischemic cardiomyopathy; J98.01 Acute bronchospasm; K29.70 Gastritis, unspecified, without bleeding; Z86.010 Personal history of colon polyps; N18.3 Chronic kidney disease, stage 3 (moderate); K80.20 Calculus of gallbladder without cholecystitis without obstruction; K76.0 Fatty (change of) liver, not elsewhere classified; N20.0 Calculus of kidney; N28.1 Cyst of kidney, acquired; R13.12 Dysphagia, oropharyngeal phase; R31.0 Gross hematuria; R33.9 Retention of urine, unspecified; S30.1XXA Contusion of abdominal wall, initial encounter; Z82.49 Family history of ischemic heart disease and other diseases of the circulatory system; Z83.3 Family history of diabetes mellitus; Z86.79 Personal history of other diseases of the circulatory system; Z87.442 Personal history of urinary calculi
CPT/HCPCS: 31500; 32557; 36415; 36556; 36600; 37191; 51702; 70450; 71010; 71020; 71250; 74000; 74176; 74230; 76700; 76770; 76937; 78582; 80047; 80048; 80053; 80061; 80069; 80076; 81001; 82274; 82550; 82570; 82805; 82945; 82947; 83540; 83550; 83605; 83615; 83690; 83735; 83880; 84100; 84132; 84156; 84157; 84300; 84478; 84484; 84550; 85007; 85014; 85018; 85027; 85347; 85520; 85610; 85730; 86850; 86900; 86901; 86920; 87040; 87045; 87071; 87075; 87086; 87205; 87324; 87641; 88305; 88312; 92950; 93005; 93306; 93458; 93970; 94002; 94003; 94250; 94640; 94660; 94760; 96360; 96361; 96374; A4215; A9540; A9558; C1729; C1769; C1892; C1894; C9113; G0481; J0171; J0282; J0360; J0461; J0610; J0690; J1650; J1756; J1815; J1940; J2020; J2060; J2175; J2250; J2270; J2405; J2543; J2704; J3010; J3370; J3475; J3480; J3490; J7030; J7040; J7050; J7060; J7644; P9016; P9046; Q9967; S0028; 92526; 92610; 92611; 97110; 97116; 97530; 97535; 99291-25